=== PATIENT | female | born 1960 | race Caucasian/White ===

== ENCOUNTER → 2016-08-30 | Outpatient (CLI) | payer MEDICARE ==
[~2016-08-30] MED LIST: ASPI81TA45 PO; BACL10TA2 PO; LIPI20TA PO; NEUR100C PO; PAXI30TA11 PO; PLAV1TAB2 PO; TOPA50TA8 PO; TRAZ50TA11 PO
--- NOTE | 2016-08-30 10:59 | REP ---
BILATERAL RIBS, PA CHEST, SEVEN VIEWS: HISTORY: Rib pain. The lungs are clear. The heart is normal in size. The pulmonary vasculature is normal in appearance. The bony structure is intact. IMPRESSION: No acute disease. Signed by Kedar Bridges MD 08/30/2016 11:03 A
== END ==
LOC: M LRY 09:59
PROVIDERS: ATTEND Nurse Practitioner Family
DX: R07.81 Pleurodynia (principal)
CPT/HCPCS: 71111; G0463

== ENCOUNTER → 2016-12-25 | Outpatient (REF) | payer MEDICARE ==
[2016-12-25 17:29] LABS: ALBUMIN 3.5 GM/DL (3.2-5.2); ALKALINE PHOSPHATASE 167 U/L (45-117); ALT/SGPT 27 U/L (12-78); ANION GAP 5 MEQ/L (8-16); AST/SGOT 20 U/L (7-37); BILIRUBIN,TOTAL 0.4 MG/DL (0.2-1.0); BLOOD UREA NITROGEN 8 MG/DL (7-18); CALCIUM LEVEL 9.1 MG/DL (8.5-10.1); CARBON DIOXIDE LEVEL 31 MEQ/L (21-32); CHLORIDE LEVEL 107 MEQ/L (98-107); CHOLESTEROL LEVEL 197 MG/DL (<200); CREATININE FOR GFR 0.83 MG/DL (0.55-1.02); GLOMERULAR FILTRATION RATE > 60.0 (>51); GLUCOSE, FASTING 77 MG/DL (70-105); SODIUM LEVEL 143 MEQ/L (136-145); TOTAL PROTEIN 7.4 GM/DL (6.4-8.2); TRIGLYCERIDES LEVEL 132 MG/DL (<150)
[2016-12-25 17:41] LABS: MEAN CORPUSCULAR HEMOGLOBIN 28.1 pg (27.0-33.0); MEAN CORPUSCULAR HGB CONC 32.2 g/dl (32.0-36.5); MEAN CORPUSCULAR VOLUME 87.3 fl (80.0-96.0); RED CELL DISTRIBUTION WIDTH 17.8 % (11.5-14.5); WHITE BLOOD COUNT 8.4 10^3/uL (4.0-10.0)
[2016-12-25 17:46] LABS: POTASSIUM SERUM 5.2 MEQ/L (3.5-5.1)
[2016-12-25 17:48] LABS: CBCMD ORDERED? YES (YES)
[2016-12-25 21:42] LABS: BASOPHILS 1 % (0-4); EOSINOPHILS 6 % (0-5)
[2016-12-25 21:43] LABS: ANISOCYTOSIS 2+; SCHISTOCYTES 1+
[2016-12-25 21:44] LABS: POIKILOCYTOSIS 1+
== END ==
LOC: M SFHCLERA 12:52
PROVIDERS: ATTEND Family Medicine
DX: I73.9 Peripheral vascular disease, unspecified (principal); Z79.899 Other long term (current) drug therapy
CPT/HCPCS: 80053; 80061; 84443; 85007; 85027; 90471; 90472; 90686; 90732; G0463

== ENCOUNTER → 2017-01-13 | Outpatient (CLI) | payer MEDICARE ==
--- NOTE | 2017-01-15 09:07 | DEXA ---
AP SPINE L1 - L4 0.877 -2.6 -1.5 LT FEMUR TOTAL 0.646 -2.9 -2.1 RT FEMUR TOTAL 0.579 -3.4 -2.6 TOTAL BODY TOTAL OTHER COMMENTS: There is osteoporosis of the spine and hips. The density of the spine has decreased 6.2% since 03/13/2010. The density of the left hip has decreased 4.7% since 03/13/2010. The density of the right hip has decreased 4.3% since 03/13/2010. FOLLOW-UP: Recommendation for the next bone density exam: 2 years. TOSHIA
== END ==
LOC: M WHC 08:58
PROVIDERS: ATTEND Internal Medicine Hematology & Oncology
DX: M81.0 Age-related osteoporosis without current pathological fracture (principal)

== ENCOUNTER → 2017-01-16 | Outpatient (CLI) | payer MEDICARE, MEDICAID ==
[~2017-01-16] MED LIST changes: +ISOVUE-370 76% 100ML VIAL (Q9967) As Ordered ONE
--- NOTE | 2017-01-16 13:43 | REP ---
CT ANGIOGRAPHY OF THE ABDOMEN, PELVIS AND LOWER EXTREMITY RUNOFF ARTERIES WITH IV CONTRAST: HISTORY: Peripheral arterial disease. CT CONTRAST DOSE: 100 mL of intravenous Isovue 370. TECHNIQUE: Helical scanning is acquired and axial 3 mm slices are reformatted. Coronal and sagittal multiplanar re-formation images are generated. 3D work station is deployed to generate thick slab MIP in the coronal plane as well as surface rendered color 3 D imaging and curved array MPR images along the runoff arteries. NONVASCULAR CT FINDINGS: No significant finding on [employer] scout images. There are multiple noncalcified pulmonary nodular opacities in the lung bases bilaterally. These range in size up to 0.7 cm. They are fairly numerous. There are granulomatous calcifications scattered within the spleen. A small accessory splenule is noted. A retroaortic left renal vein is observed. The patient's appendix is in the left side of the abdomen since the cecum and right colon are horizontally oriented. The patient is status post hysterectomy. There are fairly large calcifications in the left groin soft tissues medial to the femoral artery and vein. Presumably these are dystrophic calcifications. VASCULAR FINDINGS: There is diffuse atherosclerotic plaquing in the suprarenal abdominal aorta. No stenosis is seen. The celiac and superior mesenteric artery origins are normal. Singular nonstenotic renal arteries are observed bilaterally. There is a stent graft in place in the infrarenal abdominal aorta. The abdominal aorta is small in caliber but the stent graft and the aorta are patent. The inferior mesenteric artery origin is not seen. The common iliac arteries are small and show atherosclerotic plaquing but no high-grade stenosis. The internal iliac arteries are patent bilaterally. External iliac artery show no high caliber stenosis. Common femoral arteries are patent bilaterally. Profunda and superficial femoral arteries are widely patent. Popliteal arteries are of good caliber bilaterally. No significant plaquing. There is patent three-vessel calf runoff bilaterally to the distal calf. The anterior and posterior tibial arteries cross the ankles bilaterally. Surface rendered and curved axis MPR images show no additional abnormality. IMPRESSION: 1. Multiple noncalcified pulmonary nodules are visible in the lung bases bilaterally. These are nonspecific but contrast enhanced chest CT study should be considered for further evaluation. I cannot exclude metastatic disease. 2. Small caliber distal aorta and common and external iliacs bilaterally. No high-grade stenosis seen. Status post distal aortic stenting. Intact bilateral runoff vessels. Signed by Trung Lovelace MD 01/16/2017 02:46 P
== END ==
LOC: M RAD 12:25
PROVIDERS: ATTEND Family Medicine
DX: I73.9 Peripheral vascular disease, unspecified (principal)
CPT/HCPCS: 75635; Q9967

== ENCOUNTER → 2017-02-05 | Outpatient (CLI) | payer MEDICARE, MEDICAID ==
--- NOTE | 2017-02-05 18:50 | REP ---
CT CHEST WITH IV CONTRAST: TECHNIQUE: Axial contrast enhanced images from the thoracic inlet to the upper abdomen using 100 mL Isovue 370 intravenous contrast material with multiplanar reformations. COMPARISON: CT 01/16/2017 There are multiple nodular opacities bilaterally. Most are semisolid and some are solid in appearance. The largest is somewhat oval in shape with irregular margins having an maximum diameter of 10 mm. Most are less than 10 mm. There is an upper lobe predominance as well as a predominance in the superior aspect of both lower lobes. Interstitial coarsening is seen in both upper lobes. There is no mediastinal, hilar or chest wall lymphadenopathy with normal sized mediastinal and hilar lymph nodes present. There is mild atherosclerotic calcification of the thoracic aorta without aneurysm or dissection. The heart is normal in size. There is no pleural or pericardial effusion. There is a stable mild compression deformity of a midthoracic vertebral body compared to prior CT of 08/27/2014. The visualized upper abdominal structures are unremarkable except for a tiny calcified granulomas in the spleen. IMPRESSION: Multiple ill-defined nodular opacities diffusely bilaterally with an upper lobe predominance. Most of the nodules are semisolid, with some having a solid appearance. These measure up to 10 mm in maximum diameter, but most are subcentimeter in size. Differential diagnosis is vast and includes inflammatory, infectious and neoplastic etiologies. Recommend followup CT in 3 months. Signed by Pedro Levine MD 02/05/2017 08:45 P
== END ==
LOC: M RAD 17:08
PROVIDERS: ATTEND Family Medicine
DX: R91.8 Other nonspecific abnormal finding of lung field (principal)
CPT/HCPCS: 71260; Q9967

== ENCOUNTER → 2017-02-20 | Outpatient (CLI) | payer MEDICARE, MEDICAID | LOC: M PAIN 09:30 | DX: M54.5 Low back pain (principal); G89.29 Other chronic pain; M46.1 Sacroiliitis, not elsewhere classified; E78.5 Hyperlipidemia, unspecified; I25.2 Old myocardial infarction; F17.210 Nicotine dependence, cigarettes, uncomplicated; Z79.899 Other long term (current) drug therapy; Z79.82 Long term (current) use of aspirin; Z88.8 Allergy status to other drugs, medicaments and biological substances; Z86.73 Personal history of transient ischemic attack (TIA), and cerebral infarction without residual deficits; M81.0 Age-related osteoporosis without current pathological fracture | CPT/HCPCS: 82306; G0463 ==

== ENCOUNTER → 2017-02-20 | Outpatient (CLI) | payer MEDICARE, MEDICAID ==
[2017-02-20 12:21] LABS: ANION GAP 3 MEQ/L (8-16); BLOOD UREA NITROGEN 14 MG/DL (7-18); CALCIUM LEVEL 8.3 MG/DL (8.5-10.1); CARBON DIOXIDE LEVEL 28 MEQ/L (21-32); CHLORIDE LEVEL 109 MEQ/L (98-107); CREATININE FOR GFR 0.87 MG/DL (0.55-1.02); GLOMERULAR FILTRATION RATE > 60.0 (>51); GLUCOSE, FASTING 78 MG/DL (70-105); POTASSIUM SERUM 4.4 MEQ/L (3.5-5.1); SODIUM LEVEL 140 MEQ/L (136-145)
== END ==
LOC: M LAB 11:13
DX: M81.0 Age-related osteoporosis without current pathological fracture (principal)
CPT/HCPCS: 82306

== ENCOUNTER → 2017-03-03 | Outpatient (REF) | payer MEDICARE, MEDICAID ==
[2017-03-03 14:28] LABS: FERRITIN 469 NG/ML (8-252); TOTAL PROTEIN 7.2 GM/DL (6.4-8.2)
[2017-03-03 14:36] LABS: ERYTHROCYTE SEDIMENTATION RATE 60 mm/hr (0-30)
[2017-03-05 00:06] LABS: FREE KAPPA LIGHT CHAINS SERUM 75.9 mg/L (3.3-19.4); FREE LAMBDA LIGHT CHAINS SERUM 32.4 mg/L (5.7-26.3); KAPPA/LAMBDA RATIO SERUM 2.34 (0.26-1.65)
[2017-03-06 11:07] LABS: ALBUMIN 3.23 GM/DL (3.29-5.55); ALBUMIN % 44.8 % (55.8-66.1); ALPHA-1-GLOBULIN % 5.9 % (2.9-4.9); ALPHA-1-GLOBULINS 0.42 GM/DL (0.17-0.41); ALPHA-2-GLOBULINS 0.86 GM/DL (0.42-0.99); ALPHA-2-GLOBULINS % 11.9 % (7.1-11.8); BETA-1-GLOBULINS 0.36 GM/DL (0.28-0.60); BETA-2-GLOBULINS 0.45 GM/DL (0.19-0.55); BETA-2-GLOBULINS % 6.2 % (3.2-6.5); GAMMA GLOBULIN % 26.2 % (11.1-18.8); GAMMA GLOBULINS 1.89 GM/DL (0.65-1.58)
== END ==
LOC: M LAB REF 13:33
DX: D74.8 Other methemoglobinemias (principal); M84.40XA Pathological fracture, unspecified site, initial encounter for fracture
CPT/HCPCS: 84165

== ENCOUNTER → 2017-03-09 | Outpatient (CLI) | payer MEDICARE, MEDICAID | LOC: M PAIN 14:15 | DX: M54.5 Low back pain (principal); G89.29 Other chronic pain; M46.1 Sacroiliitis, not elsewhere classified; F17.210 Nicotine dependence, cigarettes, uncomplicated; I25.2 Old myocardial infarction; Z79.82 Long term (current) use of aspirin; Z79.01 Long term (current) use of anticoagulants; Z79.899 Other long term (current) drug therapy; Z88.8 Allergy status to other drugs, medicaments and biological substances | CPT/HCPCS: G0463 ==

== ENCOUNTER → 2017-03-10 | Outpatient (CLI) | payer MEDICARE, MEDICAID | LOC: M PLARAD 11:19 | DX: C96.6 Unifocal Langerhans-cell histiocytosis (principal); C96.20 Malignant mast cell neoplasm, unspecified | CPT/HCPCS: 78815 ==

== ENCOUNTER → 2017-03-18 | Outpatient (CLI) | payer MEDICARE, MEDICAID | LOC: M RAD 14:41 | DX: M54.5 Low back pain (principal) | CPT/HCPCS: 72148 ==

== ENCOUNTER → 2017-03-24 | Outpatient (CLI) | payer MEDICARE, MEDICAID ==
[~2017-03-24] MED LIST changes: -ASPI81TA45 PO; -BACL10TA2 PO; +HEPARIN 1,000 UNITS/ML 10ML VIAL (FOR RADIOLOGY& DIALYSIS ONLY) As Ordered; +ISOVUE-300 61% 50ML VIAL (Q9967) As Ordered; -ISOVUE-370 76% 100ML VIAL (Q9967) As Ordered ONE; -LIPI20TA PO; +MIDAZOLAM INJ 2 MG/2 ML VIAL (J2250) As Ordered; -NEUR100C PO; -PAXI30TA11 PO; -PLAV1TAB2 PO; +PROTAMINE SULF INJ 50 MG/5 ML VIAL (J2720) As Ordered; -TOPA50TA8 PO; -TRAZ50TA11 PO; +fentaNYL 100 MCG/2 ML INJECTION (J3010) As Ordered
== END | disposition home or self-care (01) ==
LOC: M IRPRO 06:58
DX: I70.211 Atherosclerosis of native arteries of extremities with intermittent claudication, right leg (principal); Z86.73 Personal history of transient ischemic attack (TIA), and cerebral infarction without residual deficits; I25.2 Old myocardial infarction; J44.9 Chronic obstructive pulmonary disease, unspecified; Z72.0 Tobacco use
CPT/HCPCS: G0269

== ENCOUNTER → 2017-03-26 | Outpatient (REF) | payer MEDICARE, MEDICAID ==
[2017-03-26 13:29] LABS: INFLUENZA A AMPLIFICATION NEGATIVE (NEGATIVE); INFLUENZA B AMPLIFICATION NEGATIVE (NEGATIVE)
== END ==
LOC: M SFHCLERA 09:52
DX: R68.89 Other general symptoms and signs (principal); Z11.59 Encounter for screening for other viral diseases
CPT/HCPCS: 87502

== ENCOUNTER → 2017-05-28 | Outpatient (CLI) | payer MEDICARE, MEDICAID | LOC: M LRY 10:33 | DX: J44.1 Chronic obstructive pulmonary disease with (acute) exacerbation (principal) | CPT/HCPCS: G0463 ==

== ENCOUNTER → 2017-06-08 | Outpatient (CLI) | payer MEDICARE, MEDICAID ==
[~2017-06-08] MED LIST changes: +BUPIVACAINE HCL 0.25% 10 ML VIAL As Ordered; +BUPIVACAINE HCL 0.25% 30 ML VIAL As Ordered; -HEPARIN 1,000 UNITS/ML 10ML VIAL (FOR RADIOLOGY& DIALYSIS ONLY) As Ordered; -ISOVUE-300 61% 50ML VIAL (Q9967) As Ordered; -MIDAZOLAM INJ 2 MG/2 ML VIAL (J2250) As Ordered; -PROTAMINE SULF INJ 50 MG/5 ML VIAL (J2720) As Ordered; +TRIAMCINOLONE ACETONIDE SUSP 40 MG/ML VIAL (J3301) As Ordered; +diazePAM 5 MG TAB As Ordered; -fentaNYL 100 MCG/2 ML INJECTION (J3010) As Ordered; +oxyCODONE 5MG TAB As Ordered
== END ==
LOC: M PAIN 14:45
DX: G89.29 Other chronic pain (principal); M79.1 Myalgia; G40.909 Epilepsy, unspecified, not intractable, without status epilepticus; I73.9 Peripheral vascular disease, unspecified; G62.9 Polyneuropathy, unspecified; M51.36 Other intervertebral disc degeneration, lumbar region; E78.5 Hyperlipidemia, unspecified; J44.9 Chronic obstructive pulmonary disease, unspecified; M81.0 Age-related osteoporosis without current pathological fracture; Z86.73 Personal history of transient ischemic attack (TIA), and cerebral infarction without residual deficits; F17.210 Nicotine dependence, cigarettes, uncomplicated; Z79.02 Long term (current) use of antithrombotics/antiplatelets; Z79.82 Long term (current) use of aspirin; Z79.899 Other long term (current) drug therapy; Z88.8 Allergy status to other drugs, medicaments and biological substances
CPT/HCPCS: J3301

== ENCOUNTER → 2017-06-17 | Outpatient (CLI) | payer MEDICAID, MEDICARE ==
[2017-06-17 15:38] LABS: ANION GAP 5 MEQ/L (8-16); BLOOD UREA NITROGEN 19 MG/DL (7-18); CALCIUM LEVEL 8.3 MG/DL (8.5-10.1); CARBON DIOXIDE LEVEL 28 MEQ/L (21-32); CHLORIDE LEVEL 112 MEQ/L (98-107); CREATININE FOR GFR 1.14 MG/DL (0.55-1.30); GLOMERULAR FILTRATION RATE 52.1 (>51); GLUCOSE, FASTING 85 MG/DL (70-100); POTASSIUM SERUM 3.8 MEQ/L (3.5-5.1); SODIUM LEVEL 145 MEQ/L (136-145)
[2017-06-17 15:54] LABS: TOTAL 25(OH) VITAMIN D 57.6 NG/ML (30.0-100.0)
== END ==
LOC: M LAB 14:19
DX: M81.0 Age-related osteoporosis without current pathological fracture (principal)
CPT/HCPCS: 82306

== ENCOUNTER → 2017-06-22 | Outpatient (CLI) | payer MEDICARE, MEDICAID | LOC: M PAIN 13:15 | DX: M54.5 Low back pain (principal); M46.92 Unspecified inflammatory spondylopathy, cervical region; R56.9 Unspecified convulsions; I73.9 Peripheral vascular disease, unspecified; I25.2 Old myocardial infarction; G62.9 Polyneuropathy, unspecified; M19.90 Unspecified osteoarthritis, unspecified site; E78.5 Hyperlipidemia, unspecified; J44.9 Chronic obstructive pulmonary disease, unspecified; M85.9 Disorder of bone density and structure, unspecified; F17.210 Nicotine dependence, cigarettes, uncomplicated; Z79.01 Long term (current) use of anticoagulants; Z79.82 Long term (current) use of aspirin; Z79.51 Long term (current) use of inhaled steroids; Z79.899 Other long term (current) drug therapy; Z88.8 Allergy status to other drugs, medicaments and biological substances; Z86.73 Personal history of transient ischemic attack (TIA), and cerebral infarction without residual deficits; Z95.5 Presence of coronary angioplasty implant and graft | CPT/HCPCS: G0463 ==

== ENCOUNTER → 2017-06-25 | Outpatient (CLI) | payer MEDICARE, MEDICAID ==
[2017-06-25 17:49] LABS: ANION GAP 4 MEQ/L (8-16); BLOOD UREA NITROGEN 16 MG/DL (7-18); CARBON DIOXIDE LEVEL 29 MEQ/L (21-32); CHLORIDE LEVEL 112 MEQ/L (98-107); CREATININE FOR GFR 1.33 MG/DL (0.55-1.30); GLOMERULAR FILTRATION RATE 43.6 (>51); GLUCOSE, FASTING 85 MG/DL (70-100); POTASSIUM SERUM 4.5 MEQ/L (3.5-5.1); SODIUM LEVEL 145 MEQ/L (136-145)
== END ==
LOC: M LRY 10:10
DX: E55.9 Vitamin D deficiency, unspecified (principal); M81.0 Age-related osteoporosis without current pathological fracture
CPT/HCPCS: 80048

== ENCOUNTER 2017-06-30 13:33 | Outpatient (CLI) | payer MEDICARE, MEDICAID ==
[2017-06-30] MEDS: ZOLEDRONIC ACID 5 MG in APPROPRIATE DILUENT 1 EA IV (14:04)
== END 2017-06-30 14:45 | disposition home or self-care (01) ==
LOC: M INFU 13:33
DX: M81.0 Age-related osteoporosis without current pathological fracture (principal); E55.9 Vitamin D deficiency, unspecified; G43.909 Migraine, unspecified, not intractable, without status migrainosus; F32.9 Major depressive disorder, single episode, unspecified; E78.00 Pure hypercholesterolemia, unspecified; I51.9 Heart disease, unspecified; Z79.82 Long term (current) use of aspirin; Z79.899 Other long term (current) drug therapy; Z88.8 Allergy status to other drugs, medicaments and biological substances; Z90.710 Acquired absence of both cervix and uterus; Z86.73 Personal history of transient ischemic attack (TIA), and cerebral infarction without residual deficits
CPT/HCPCS: J3489

== ENCOUNTER → 2017-07-31 | Outpatient (REF) | payer MEDICARE, MEDICAID ==
[2017-07-31 15:10] LABS: CHLAMYDIA DNA AMPLIFICATION NEGATIVE (NEGATIVE); GC DNA AMPLIFICATION NEGATIVE (NEGATIVE)
== END ==
LOC: M LAB REF 12:56
DX: Z11.3 Encounter for screening for infections with a predominantly sexual mode of transmission (principal); R30.0 Dysuria; Z72.89 Other problems related to lifestyle
CPT/HCPCS: 87186

== ENCOUNTER → 2017-08-03 | Outpatient (CLI) | payer MEDICARE, MEDICAID ==
[2017-08-03 11:27] LABS: ANION GAP 5 MEQ/L (8-16); BLOOD UREA NITROGEN 21 MG/DL (7-18); CALCIUM LEVEL 8.5 MG/DL (8.5-10.1); CARBON DIOXIDE LEVEL 26 MEQ/L (21-32); CHLORIDE LEVEL 111 MEQ/L (98-107); CREATININE FOR GFR 0.99 MG/DL (0.55-1.30); GLOMERULAR FILTRATION RATE > 60.0 (>51); GLUCOSE, FASTING 86 MG/DL (70-100); POTASSIUM SERUM 4.2 MEQ/L (3.5-5.1); SODIUM LEVEL 142 MEQ/L (136-145)
[2017-08-03 11:35] LABS: TOTAL 25(OH) VITAMIN D 51.3 NG/ML (30.0-100.0)
== END ==
LOC: M LAB 10:42
DX: M81.0 Age-related osteoporosis without current pathological fracture (principal)
CPT/HCPCS: 82306

== ENCOUNTER → 2017-08-03 | Outpatient (CLI) | payer MEDICARE, MEDICAID | LOC: M PAIN 09:30 | DX: M54.5 Low back pain (principal); M46.92 Unspecified inflammatory spondylopathy, cervical region; M79.1 Myalgia; G89.29 Other chronic pain; I25.2 Old myocardial infarction; R56.9 Unspecified convulsions; G90.09 Other idiopathic peripheral autonomic neuropathy; M19.90 Unspecified osteoarthritis, unspecified site; J44.9 Chronic obstructive pulmonary disease, unspecified; Z79.82 Long term (current) use of aspirin; Z79.01 Long term (current) use of anticoagulants; Z79.51 Long term (current) use of inhaled steroids; Z79.899 Other long term (current) drug therapy; Z88.8 Allergy status to other drugs, medicaments and biological substances; M85.80 Other specified disorders of bone density and structure, unspecified site; F17.210 Nicotine dependence, cigarettes, uncomplicated; Z87.74 Personal history of (corrected) congenital malformations of heart and circulatory system; Z86.73 Personal history of transient ischemic attack (TIA), and cerebral infarction without residual deficits | CPT/HCPCS: 82306; G0463 ==

== ENCOUNTER → 2017-08-04 | Outpatient (CLI) | payer MEDICARE, MEDICAID ==
[~2017-08-04] MED LIST changes: +diphenhydrAMINE 25 MG CAP As Ordered
== END ==
LOC: M PAIN 14:00
DX: G89.29 Other chronic pain (principal); M79.1 Myalgia; M54.5 Low back pain; R56.9 Unspecified convulsions; I25.2 Old myocardial infarction; E78.5 Hyperlipidemia, unspecified; J44.9 Chronic obstructive pulmonary disease, unspecified; M85.80 Other specified disorders of bone density and structure, unspecified site; F17.210 Nicotine dependence, cigarettes, uncomplicated; M19.90 Unspecified osteoarthritis, unspecified site; Z79.82 Long term (current) use of aspirin; Z79.51 Long term (current) use of inhaled steroids; Z79.899 Other long term (current) drug therapy; Z88.8 Allergy status to other drugs, medicaments and biological substances; Z86.73 Personal history of transient ischemic attack (TIA), and cerebral infarction without residual deficits; Z86.79 Personal history of other diseases of the circulatory system
CPT/HCPCS: J3301

== ENCOUNTER → 2017-08-06 | Outpatient (REF) | payer MEDICARE ==
[2017-08-06 13:42] LABS: APPEARANCE, URINE HAZY (CLEAR); BACTERIA, URINE AUTO NEGATIVE (NEGATIVE); BILIRUBIN, URINE AUTO NEGATIVE (NEGATIVE); BLOOD, URINE BLOOD NEGATIVE (NEGATIVE); CALCIUM OXALATE CRYSTALS LARGE; COLOR, URINE YELLOW (YELLOW); GLUCOSE, URINE (UA) AUTO NEGATIVE (NEGATIVE); KETONE, URINE AUTO NEGATIVE (NEGATIVE); LEUKOCYTE ESTERASE, URINE AUTO 1+ (NEGATIVE); MUCUS, URINE SMALL (NEGATIVE); NITRITE, URINE AUTO NEGATIVE (NEGATIVE); PROTEIN, URINE AUTO NEGATIVE (NEGATIVE); RBC, URINE AUTO 1 /HPF (0-3); SPECIFIC GRAVITY URINE AUTO 1.015 (1.002-1.035); SQUAMOUS EPITHELIAL CELL UR AU 0 /HPF (0-6); WBC, URINE AUTO 3 /HPF (0-3)
== END ==
LOC: M SMT 13:00
DX: R39.15 Urgency of urination (principal)
CPT/HCPCS: 81001

== ENCOUNTER → 2017-08-06 | Outpatient (CLI) | payer MEDICARE, MEDICAID | LOC: M RAD 07:15 | DX: M48.061 Spinal stenosis, lumbar region without neurogenic claudication (principal); R39.15 Urgency of urination | CPT/HCPCS: 72148 ==

== ENCOUNTER → 2017-08-17 | Outpatient (CLI) | payer MEDICARE, MEDICAID | LOC: M PAIN 10:30 | DX: M54.5 Low back pain (principal); M46.92 Unspecified inflammatory spondylopathy, cervical region; G89.29 Other chronic pain; M79.1 Myalgia; I25.2 Old myocardial infarction; R56.9 Unspecified convulsions; I73.9 Peripheral vascular disease, unspecified; G90.09 Other idiopathic peripheral autonomic neuropathy; M19.90 Unspecified osteoarthritis, unspecified site; E78.5 Hyperlipidemia, unspecified; J44.9 Chronic obstructive pulmonary disease, unspecified; M85.80 Other specified disorders of bone density and structure, unspecified site; F17.210 Nicotine dependence, cigarettes, uncomplicated; Z79.01 Long term (current) use of anticoagulants; Z79.82 Long term (current) use of aspirin; Z79.51 Long term (current) use of inhaled steroids; Z79.899 Other long term (current) drug therapy; Z88.8 Allergy status to other drugs, medicaments and biological substances; Z86.73 Personal history of transient ischemic attack (TIA), and cerebral infarction without residual deficits | CPT/HCPCS: G0463 ==

== ENCOUNTER 2017-10-24 19:13 | Emergency (ER) | payer MEDICARE, MEDICAID ==
[2017-10-24] MEDS: ALBUTEROL SULFATE 2.5 MG/0.5 ML INH NEB SOLN NEB ×2 (20:07→20:26)
[2017-10-24 20:15] LABS: ABG BASE EXCESS -0.7 (-2.0-2.0); ABG HCO3 23.1 MEQ/L (22.0-26.0); ABG O2 SATURATION 96.2 % (95.0-99.0); ABG PARTIAL PRESSURE CO2 35.1 mmHg (35.0-45.0); ABG PARTIAL PRESSURE O2 80.1 mmHg (75.0-100.0); ABG STANDARD HCO3 23.9 MEQ/L (22.0-26.0); ABG TOTAL CO2 24.2 MEQ/L (22.0-29.0); ABG pH (ARTERIAL) 7.436 UNITS (7.350-7.450)
[2017-10-24 20:42] LABS: BASO % 0.4 % (0.0-1.0); EOS # 0.1 10^3/uL (0.0-0.50); EOS % 1.9 % (0.0-3.0); HEMATOCRIT 40.6 % (36.0-47.0); HEMOGLOBIN 13.2 g/dl (12.0-15.5); IMMATURE GRANULOCYTE % 0.2 % (0-3.0); LYMPH # 1.8 10^3/uL (1.5-4.5); LYMPH % 37.8 % (24.0-44.0); MEAN CORPUSCULAR HEMOGLOBIN 28.1 pg (27.0-33.0); MEAN CORPUSCULAR HGB CONC 32.5 g/dl (32.0-36.5); MEAN CORPUSCULAR VOLUME 86.6 fl (80.0-96.0); MONO # 0.3 10^3/uL (0.0-0.8); MONO % 6.9 % (0.0-5.0); NEUTROPHILS # 2.5 10^3/uL (1.8-7.7); NEUTROPHILS % 52.8 % (36.0-66.0); PLATELET COUNT, AUTOMATED 250 10^3/uL (150-450); RED BLOOD COUNT 4.69 10^6/uL (4.00-5.40); RED CELL DISTRIBUTION WIDTH 18.8 % (11.5-14.5); WHITE BLOOD COUNT 4.8 10^3/uL (4.0-10.0)
[2017-10-24] MEDS: methylPREDNISolone INJ 125 MG/2 ML VIAL (J2930) IV (20:46)
[2017-10-24] MEDS: NICOTINE 21MG/24HR 1 EA TRANSDERMAL TD (20:46)
[2017-10-24 21:11] LABS: ALBUMIN/GLOBULIN RATIO 0.83 (1.00-1.93); ALKALINE PHOSPHATASE 101 U/L (45-117); ALT/SGPT 26 U/L (12-78); ANION GAP 6 MEQ/L (8-16); AST/SGOT 27 U/L (7-37); BILIRUBIN,DIRECT < 0.1 MG/DL (0.0-0.2); BILIRUBIN,TOTAL 0.2 MG/DL (0.2-1.0); BLOOD UREA NITROGEN 9 MG/DL (7-18); CARBON DIOXIDE LEVEL 28 MEQ/L (21-32); CHLORIDE LEVEL 108 MEQ/L (98-107); CPK CREATINE PHOSPHOKINASE 90 U/L (26-192); CREATININE FOR GFR 0.96 MG/DL (0.55-1.30); GLOMERULAR FILTRATION RATE > 60.0 (>51); GLUCOSE, FASTING 84 MG/DL (70-100); POTASSIUM SERUM 3.8 MEQ/L (3.5-5.1); SODIUM LEVEL 142 MEQ/L (136-145); TOTAL PROTEIN 6.6 GM/DL (6.4-8.2); TROPONIN I < 0.02 NG/ML (< 0.10)
[2017-10-24 21:16] LABS: CK-MB VALUE MASS 1.1 NG/ML (<3.6); MB/CK RELATIVE INDEX 1.22 (< OR =4)
[2017-10-24] MEDS: MORPHINE 2 MG/ML 1ML SYRINGE (J2270) IV (22:23)
== END 2017-10-24 22:40 | disposition left against medical advice (07) ==
LOC: M ED 19:13
DX: J44.1 Chronic obstructive pulmonary disease with (acute) exacerbation (principal); I25.10 Atherosclerotic heart disease of native coronary artery without angina pectoris; I25.2 Old myocardial infarction; E78.5 Hyperlipidemia, unspecified; G62.9 Polyneuropathy, unspecified; M19.90 Unspecified osteoarthritis, unspecified site; M81.0 Age-related osteoporosis without current pathological fracture; Z86.73 Personal history of transient ischemic attack (TIA), and cerebral infarction without residual deficits; Z88.8 Allergy status to other drugs, medicaments and biological substances; F17.210 Nicotine dependence, cigarettes, uncomplicated
CPT/HCPCS: J2930

== ENCOUNTER 2018-02-05 13:40 | Emergency (ER) | payer MEDICARE, MEDICAID ==
[2018-02-05] MEDS: NS 1,000 ML IV ×2 (14:00→16:12)
[2018-02-05 14:21] LABS: BASO % 0.2 % (0.0-1.0); HEMATOCRIT 42.9 % (36.0-47.0); HEMOGLOBIN 14.6 g/dl (12.0-15.5); IMMATURE GRANULOCYTE % 0.4 % (0-3.0); LYMPH # 1.4 10^3/uL (1.5-4.5); LYMPH % 26.1 % (24.0-44.0); MEAN CORPUSCULAR HEMOGLOBIN 28.7 pg (27.0-33.0); MEAN CORPUSCULAR VOLUME 84.3 fl (80.0-96.0); MONO # 0.3 10^3/uL (0.0-0.8); MONO % 5.4 % (0.0-5.0); NEUTROPHILS # 3.6 10^3/uL (1.8-7.7); NEUTROPHILS % 67.9 % (36.0-66.0); PLATELET COUNT, AUTOMATED 116 10^3/uL (150-450); RED BLOOD COUNT 5.09 10^6/uL (4.00-5.40); RED CELL DISTRIBUTION WIDTH 18.1 % (11.5-14.5); WHITE BLOOD COUNT 5.3 10^3/uL (4.0-10.0)
[2018-02-05 14:48] LABS: ALBUMIN 3.1 GM/DL (3.2-5.2); ALBUMIN/GLOBULIN RATIO 0.94 (1.00-1.93); ALKALINE PHOSPHATASE 84 U/L (45-117); ALT/SGPT 61 U/L (12-78); ANION GAP 10 MEQ/L (8-16); AST/SGOT 51 U/L (7-37); BILIRUBIN,DIRECT 0.1 MG/DL (0.0-0.2); BILIRUBIN,TOTAL 0.4 MG/DL (0.2-1.0); BLOOD UREA NITROGEN 20 MG/DL (7-18); CALCIUM LEVEL 7.8 MG/DL (8.5-10.1); CARBON DIOXIDE LEVEL 24 MEQ/L (21-32); CHLORIDE LEVEL 105 MEQ/L (98-107); CREATININE FOR GFR 0.84 MG/DL (0.55-1.30); GLOMERULAR FILTRATION RATE > 60.0 (>51); GLUCOSE, FASTING 114 MG/DL (70-100); LIPASE 187 U/L (73-393); POTASSIUM SERUM 3.1 MEQ/L (3.5-5.1); SODIUM LEVEL 139 MEQ/L (136-145); TOTAL PROTEIN 6.4 GM/DL (6.4-8.2)
[2018-02-05] MEDS: MORPHINE 4 MG/ML 1ML VIAL/SYRINGE (J2270) IV (15:23)
[2018-02-05] MEDS: ONDANSETRON 4MG/2ML VIAL (J2405) IV (15:23)
[2018-02-05 16:16] LABS: INFLUENZA A AMPLIFICATION NEGATIVE (NEGATIVE); INFLUENZA B AMPLIFICATION NEGATIVE (NEGATIVE)
[2018-02-05] MEDS: POTASSIUM CHLORIDE 10 MEQ SR TABLET PO ×2 (16:53→17:54)
== END 2018-02-05 17:56 | disposition home or self-care (01) ==
LOC: M ED 13:40
DX: R11.10 Vomiting, unspecified (principal); R19.7 Diarrhea, unspecified; G89.29 Other chronic pain; M54.9 Dorsalgia, unspecified; Z72.0 Tobacco use; Z79.82 Long term (current) use of aspirin; Z79.899 Other long term (current) drug therapy
CPT/HCPCS: J2270

== ENCOUNTER 2018-02-07 19:05 | Emergency (ER) | payer MEDICAID, MEDICARE ==
[~2018-02-07] VITALS: Ht 165.1 cm; Wt 59.1 kg
[~2018-02-07 19:05] MED LIST changes: +ASPI81TA45 PO; +ATOR80TA59 PO; +AZIT500T2 PO; +BACL10TA2 PO; -BUPIVACAINE HCL 0.25% 10 ML VIAL As Ordered; -BUPIVACAINE HCL 0.25% 30 ML VIAL As Ordered; +GABA-1171 PO; +IPRA2IN INH; +LIPI20TA PO; +NEUR100C PO; +NORT25CA2 PO; +PAXI30TA11 PO; +PLAV1TAB2 PO; +PRED20TA PO; +TOPA100T12 PO; +TOPA50TA8 PO; +TRAZ-160 PO; -TRIAMCINOLONE ACETONIDE SUSP 40 MG/ML VIAL (J3301) As Ordered; -diazePAM 5 MG TAB As Ordered; -diphenhydrAMINE 25 MG CAP As Ordered; -oxyCODONE 5MG TAB As Ordered
[2018-02-07] MEDS ORDERED: PROAAER10 INH (19:19)
[2018-02-07 19:59] LABS: EOS % 0.2 % (0.0-3.0); HEMATOCRIT 37.9 % (36.0-47.0); HEMOGLOBIN 12.5 g/dl (12.0-15.5); LYMPH # 1.2 10^3/uL (1.5-4.5); LYMPH % 20.9 % (24.0-44.0); MEAN CORPUSCULAR HEMOGLOBIN 28.3 pg (27.0-33.0); MEAN CORPUSCULAR VOLUME 85.7 fl (80.0-96.0); MONO # 0.5 10^3/uL (0.0-0.8); MONO % 8.3 % (0.0-5.0); NEUTROPHILS # 3.9 10^3/uL (1.8-7.7); NEUTROPHILS % 70.2 % (36.0-66.0); PLATELET COUNT, AUTOMATED 206 10^3/uL (150-450); RED BLOOD COUNT 4.42 10^6/uL (4.00-5.40); WHITE BLOOD COUNT 5.5 10^3/uL (4.0-10.0)
[2018-02-07] MEDS ORDERED: IPRATROPIUM 0.5MG/ALBUTEROL 2.5MG INH SOL UD 3ML (DUONEB)(J7620) NEB ONE (20:15)
[2018-02-07] MEDS ORDERED: ONDANSETRON 4MG/2ML VIAL (J2405) IV ONE (20:15)
[2018-02-07 20:28] LABS: INFLUENZA A AMPLIFICATION NEGATIVE (NEGATIVE); INFLUENZA B AMPLIFICATION NEGATIVE (NEGATIVE)
[2018-02-07 20:30] LABS: ALBUMIN 2.8 GM/DL (3.2-5.2); ALT/SGPT 34 U/L (12-78); BILIRUBIN,DIRECT 0.2 MG/DL (0.0-0.2); BILIRUBIN,TOTAL 0.5 MG/DL (0.2-1.0); BLOOD UREA NITROGEN 9 MG/DL (7-18); CALCIUM LEVEL 7.6 MG/DL (8.5-10.1); CARBON DIOXIDE LEVEL 22 MEQ/L (21-32); CHLORIDE LEVEL 109 MEQ/L (98-107); GLOMERULAR FILTRATION RATE > 60.0 (>51); GLUCOSE, FASTING 75 MG/DL (70-100); POTASSIUM SERUM 3.5 MEQ/L (3.5-5.1); SODIUM LEVEL 141 MEQ/L (136-145); THYROID STIMULATING HORMONE 0.565 uIU/ML (0.358-3.740); THYROXINE (T4) 13.9 UG/DL (4.5-12.0); TOTAL PROTEIN 6.2 GM/DL (6.4-8.2)
[2018-02-07] MEDS ORDERED: ISOVUE-370 76% 100ML VIAL (Q9967) As Ordered ONE (20:34)
[2018-02-07] MEDS ORDERED: MORPHINE 2 MG/ML 1ML SYRINGE (J2270) IV ONE (21:00)
--- NOTE | 2018-02-07 21:01 | REP ---
Clinical: Generalized abdominal pain. Technique: Axial contrast enhanced images from the lung bases to the pubic symphysis using 100 ml Isovue 370 intravenous contrast material with coronal and sagittal re-formations. Comparison: 08/08/2014. Findings: Lung bases demonstrate a fine reticulonodular interstitial pattern with subtle bronchiectasis and "tree in bud" type changes which suggest a mild/early bronchitis. Liver, spleen, pancreas, gallbladder, bilateral adrenal glands and kidneys are normal. 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 A few scattered colonic diverticula noted. There is no evidence for bowel obstruction or acute inflammatory process. Pelvis demonstrates normal bladder and evidence of prior hysterectomy. No pelvic fluid or ascites. No intraperitoneal or retroperitoneal adenopathy. No free air. Atherosclerotic changes to the aorta and vasculature without aneurysm or dissection. Chronic calcified lymph nodes in the left groin remain unchanged. Surrounding musculoskeletal structures demonstrate age-related changes without focal osseous abnormality. Impression: 1. Subtle changes to the bilateral lung bases may represent a mild bronchitis and early pneumonia. Correlation is recommended. 2. 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 3. Few scattered colonic diverticula without acute diverticulitis. 4. No further acute abdominopelvic pathology appreciated. Specifically, no ascites, focal inflammatory stranding, or adenopathy. Electronically Signed by Elfego Villegas MD 02/07/2018 08:52 P
--- NOTE | 2018-02-07 21:07 | REP ---
Clinical: Cough and dyspnea . Comparison: 05/28/2017 . Technique: PA and lateral. Findings: The mediastinum and cardiac silhouette are normal. The lung garvey demonstrate chronic interstitial changes without acute consolidation, effusion, or pneumothorax. The skeletal structures are intact and normal. Impression: Diffuse chronic interstitial changes. If the patient remains symptomatic consider chest CT for further investigation. Electronically Signed by Elfego Villegas MD 02/07/2018 08:58 P
[2018-02-07] MEDS ORDERED: TESS100C PO (21:22)
[2018-02-07] MEDS ORDERED: OXYC1TAB23 PO (21:22)
[2018-02-07] MEDS ORDERED: PRED20TA PO (21:22)
[2018-02-07] MEDS ORDERED: dexameTHASONE 20 MG/5 ML VIAL (J1100) IV ONE (21:30)
[2018-02-07] MEDS ORDERED: OXYCODONE/APAP 5MG/325MG(BULK FOR ED) 1 TABLET PO ONE (21:30)
[2018-02-07 21:39] VITALS: BP 131/65
== END 2018-02-07 21:41 | disposition home or self-care (01) ==
LOC: M ED 19:05
DX: J44.1 Chronic obstructive pulmonary disease with (acute) exacerbation (principal); S39.011A Strain of muscle, fascia and tendon of abdomen, initial encounter; X50.9XXA Other and unspecified overexertion or strenuous movements or postures, initial encounter; Y92.89 Other specified places as the place of occurrence of the external cause; R19.7 Diarrhea, unspecified; E78.5 Hyperlipidemia, unspecified; G40.909 Epilepsy, unspecified, not intractable, without status epilepticus; I77.9 Disorder of arteries and arterioles, unspecified; M81.0 Age-related osteoporosis without current pathological fracture; Z79.899 Other long term (current) drug therapy; Z79.82 Long term (current) use of aspirin; Z79.02 Long term (current) use of antithrombotics/antiplatelets; F17.210 Nicotine dependence, cigarettes, uncomplicated
CPT/HCPCS: 71046; 74177; 80048; 80076; 83605; 84436; 84443; 85025; 87040; 87502; 94640; 94760; 96374; 96375; 99284; J1100; J2270; J2405; Q9967

== ENCOUNTER 2018-02-11 06:55 | Emergency (ER) | payer MEDICARE ==
[~2018-02-11] VITALS: Ht 165.1 cm; Wt 59.1 kg
[~2018-02-11 06:55] MED LIST changes: +OXYC1TAB23 PO; +PROAAER10 INH; +TESS100C PO
[2018-02-11] MEDS ORDERED: MORPHINE 4 MG/ML 1ML VIAL/SYRINGE (J2270) IV PRN (07:15)
[2018-02-11] MEDS ORDERED: ONDANSETRON 4MG/2ML VIAL (J2405) IV ONE (07:15)
[2018-02-11 07:21] LABS: BASO % 0.2 % (0.0-1.0); HEMATOCRIT 42.8 % (36.0-47.0); HEMOGLOBIN 14.1 g/dl (12.0-15.5); LYMPH % 16.9 % (24.0-44.0); MEAN CORPUSCULAR HEMOGLOBIN 28.3 pg (27.0-33.0); MEAN CORPUSCULAR HGB CONC 32.9 g/dl (32.0-36.5); MEAN CORPUSCULAR VOLUME 85.8 fl (80.0-96.0); MONO # 0.9 10^3/uL (0.0-0.8); MONO % 7.5 % (0.0-5.0); NEUTROPHILS # 8.8 10^3/uL (1.8-7.7); NEUTROPHILS % 74.4 % (36.0-66.0); PLATELET COUNT, AUTOMATED 527 10^3/uL (150-450); RED BLOOD COUNT 4.99 10^6/uL (4.00-5.40); WHITE BLOOD COUNT 11.8 10^3/uL (4.0-10.0)
[2018-02-11 07:25] LABS: INR 0.88
[2018-02-11 07:39] LABS: ALT/SGPT 24 U/L (12-78); BILIRUBIN,DIRECT 0.1 MG/DL (0.0-0.2); BILIRUBIN,TOTAL 0.4 MG/DL (0.2-1.0); BLOOD UREA NITROGEN 15 MG/DL (7-18); CALCIUM LEVEL 8.6 MG/DL (8.5-10.1); CARBON DIOXIDE LEVEL 28 MEQ/L (21-32); CHLORIDE LEVEL 110 MEQ/L (98-107); CPK CREATINE PHOSPHOKINASE 120 U/L (26-192); GLOMERULAR FILTRATION RATE > 60.0 (>51); GLUCOSE, FASTING 87 MG/DL (70-100); LIPASE 87 U/L (73-393); MB/CK RELATIVE INDEX 1.08 (< OR =4); NT-PRO BNP 1277 PG/ML (<125); POTASSIUM SERUM 3.3 MEQ/L (3.5-5.1); SODIUM LEVEL 142 MEQ/L (136-145); THYROID STIMULATING HORMONE 0.831 uIU/ML (0.358-3.740); TOTAL PROTEIN 7.6 GM/DL (6.4-8.2); TROPONIN I 0.02 NG/ML (< 0.10)
--- NOTE | 2018-02-11 07:53 | REP ---
Clinical: Acute chest pain . Comparison: 02/07/2018 . Findings: The mediastinum and cardiac silhouette are stable and within normal limits for portable technique. The lung garvey are clear without acute consolidation, effusion, or pneumothorax. Skeletal structures are intact. Impression: No acute cardiopulmonary process appreciated. Electronically Signed by Elfego Villegas MD 02/11/2018 07:44 A
[2018-02-11 07:54] LABS: ERYTHROCYTE SEDIMENTATION RATE 27 mm/hr (0-30)
[2018-02-11 08:36] LABS: D-DIMER QUANT 925.83 ng/ml (<500)
[2018-02-11] MEDS ORDERED: ISOVUE-370 76% 100ML VIAL (Q9967) As Ordered ONE (09:03)
--- NOTE | 2018-02-11 09:39 | REP ---
Clinical: Acute chest pain with shortness of breath and elevated D-dimer levels. Technique: Axial contrast enhanced images from the thoracic inlet to the upper abdomen using 100 ml Isovue 370 intravenous contrast material with coronal and sagittal re-formations. Findings: Satisfactory enhancement of the pulmonary vasculature is achieved and no filling defects are identified to suggest pulmonary embolus. Diffuse interstitial prominence with peribronchial thickening and scattered bilateral subtle "tree-in-bud" opacities most compatible with diffuse bronchitis and acute pneumonitis. Underlying moderate emphysematous changes are also suggested. Reactive mediastinal and hilar adenopathy (right greater than left) noted. No effusion. No pneumothorax. Thoracic aorta is normal caliber without aneurysm or dissection. Heart and pericardium are normal. Impression: No evidence for pulmonary embolus. Diffuse findings as described above consistent with bronchitis and multifocal pneumonitis. Electronically Signed by Elfego Villegas MD 02/11/2018 09:31 A
[2018-02-11] MEDS: IPRATROPIUM 0.5MG/ALBUTEROL 2.5MG INH SOL UD 3ML (DUONEB)(J7620) NEB SCH ×3 (09:46→10:23)
[2018-02-11 10:38] VITALS: O2SAT 89
[2018-02-11] MEDS ORDERED: KETOROLAC 30 MG/ML VIAL (J1885) IV ONE (10:45)
[2018-02-11] MEDS ORDERED: CEFU50TA PO (11:52)
[2018-02-11] MEDS ORDERED: PRED20TA PO (11:53)
[2018-02-11 12:22] LABS: AMPHETAMINES LEVEL URINE NEGATIVE (NEGATIVE); BARBITURATES URINE NEGATIVE (NEGATIVE); BENZODIAZEPINES URINE NEGATIVE (NEGATIVE); CANNABINOIDS URINE POSITIVE (NEGATIVE); COCAINE METABOLITE URINE NEGATIVE (NEGATIVE); METHADONE URINE NEGATIVE (NEGATIVE); OPIATES URINE POSITIVE (NEGATIVE); PHENCYCLIDINE URINE NEGATIVE (NEGATIVE)
[2018-02-11 12:31] VITALS: BP 103/59
--- NOTE | 2018-02-13 08:30 | ED PDOC ---
Post-Departure Follow-Up radiology report faxed to Julee Cancino MD Feb 13, 2018 08:30
== END 2018-02-11 12:40 | disposition home or self-care (01) ==
LOC: M ED 06:55
DX: J44.1 Chronic obstructive pulmonary disease with (acute) exacerbation (principal); J40 Bronchitis, not specified as acute or chronic; M45.9 Ankylosing spondylitis of unspecified sites in spine; G89.29 Other chronic pain; M79.18 Myalgia, other site; I25.2 Old myocardial infarction; E78.5 Hyperlipidemia, unspecified; R56.9 Unspecified convulsions; I73.9 Peripheral vascular disease, unspecified; M19.90 Unspecified osteoarthritis, unspecified site; Z86.2 Personal history of diseases of the blood and blood-forming organs and certain disorders involving the immune mechanism; F17.200 Nicotine dependence, unspecified, uncomplicated; Z79.899 Other long term (current) drug therapy; Z79.02 Long term (current) use of antithrombotics/antiplatelets; Z79.82 Long term (current) use of aspirin
CPT/HCPCS: 71045; 71275; 80048; 80076; 80307; 82550; 82553; 83690; 83880; 84443; 84484; 85025; 85379; 85610; 85652; 86140; 87040; 93041; 94640; 94760; 96374; 96375; 99285; J1885; J2270; J2405; Q9967

== ENCOUNTER 2018-02-18 11:11 | Emergency (ER) | payer MEDICARE, MEDICAID ==
[~2018-02-18] VITALS: Ht 165.1 cm; Wt 58.6 kg
[~2018-02-18 11:11] MED LIST changes: +CEFU50TA PO
[2018-02-18] MEDS ORDERED: NS 1,000 ML IV ONE (12:00)
[2018-02-18] MEDS ORDERED: MORPHINE 4 MG/ML 1ML VIAL/SYRINGE (J2270) IV ONE ×3 (12:00→13:15)
[2018-02-18] MEDS ORDERED: ONDANSETRON 4MG/2ML VIAL (J2405) IV ONE (12:30)
[2018-02-18 12:33] LABS: BASO % 0.1 % (0.0-1.0); EOS % 0.1 % (0.0-3.0); HEMATOCRIT 38.4 % (36.0-47.0); HEMOGLOBIN 12.6 g/dl (12.0-15.5); LYMPH # 2.8 10^3/uL (1.5-4.5); LYMPH % 16.7 % (24.0-44.0); MEAN CORPUSCULAR HEMOGLOBIN 28.2 pg (27.0-33.0); MEAN CORPUSCULAR HGB CONC 32.8 g/dl (32.0-36.5); MEAN CORPUSCULAR VOLUME 85.9 fl (80.0-96.0); MONO # 1.1 10^3/uL (0.0-0.8); MONO % 6.4 % (0.0-5.0); NEUTROPHILS # 12.6 10^3/uL (1.8-7.7); NEUTROPHILS % 75.4 % (36.0-66.0); PLATELET COUNT, AUTOMATED 445 10^3/uL (150-450); RED BLOOD COUNT 4.47 10^6/uL (4.00-5.40); WHITE BLOOD COUNT 16.7 10^3/uL (4.0-10.0)
[2018-02-18 12:43] LABS: INR 0.86; PROTHROMBIN TIME 11.8 SECONDS (12.1-14.4)
[2018-02-18 12:44] LABS: PARTIAL THROMBOPLASTIN TIME 28.5 SECONDS (25.4-37.6)
[2018-02-18 13:08] LABS: ALBUMIN 2.9 GM/DL (3.2-5.2); BILIRUBIN,DIRECT 0.1 MG/DL (0.0-0.2); BILIRUBIN,TOTAL 0.4 MG/DL (0.2-1.0); CALCIUM LEVEL 8.1 MG/DL (8.5-10.1); CREATININE FOR GFR 1.13 MG/DL (0.55-1.30); GLOMERULAR FILTRATION RATE 52.5 (>51); POTASSIUM SERUM 3.5 MEQ/L (3.5-5.1); TOTAL PROTEIN 6.5 GM/DL (6.4-8.2)
[2018-02-18] MEDS ORDERED: ISOVUE-370 76% 100ML VIAL (Q9967) As Ordered ONE (13:15)
--- NOTE | 2018-02-18 14:05 | REP ---
CT abdomen and pelvis with IV but without oral contrast: History: Central abdominal pain. Leukocytosis. Comparison CT study February 07, 2018. CT contrast dose: 100 mL of intravenous Isovue [address] findings: Preliminary digital scouts radiograph is unremarkable. The lung bases are clear on axial CT images. The liver shows a tiny cyst in the right lobe 0.3 cm in greatest diameter. No significant focal liver lesion is seen. No splenic abnormalities observed. A tiny accessory splenule is seen inferior to the spleen. No adrenal lesion is seen. No abnormalities noted in the pancreas. No gallbladder abnormality is observed. The kidneys enhance symmetrically. There is a cyst in the periphery of the lower pole on the left which measures 1.2 cm in greatest diameter. No intrarenal calculus is observed. A retroaortic left renal vein is observed. Small and large intestinal bowel loops are unremarkable in the abdomen and pelvis. No retroperitoneal mass or adenopathy is observed. The aorta is calcific showing extensive plaquing. There is a distal aortic stent in the aorta. Common iliac artery narrowing and sclerosis are seen. There is a new finding of a fairly large hematoma in the distal rectus abdominus muscle sheath. This measures 8.1 cm craniocaudad by 4.7 cm anteroposterior by 7.0 cm medial to lateral. Hematoma is along the posterior surface of the distal rectus abdominus muscle. It extends over the superior pubic ramus and is seen indenting the right anterior bladder wall. No abdominal wall defect is observed. Study is otherwise unremarkable. No bony destructive lesion is seen. There are densely calcified left inguinal lymph nodes. Impression: There is a 8.1 x 4.7 x 7.0 cm hematoma in the distal rectus abdominis muscle sheath on the right in the suprapubic region. This is a new finding. The patient is status post distal aortic stent placement. Electronically Signed by Trung Lovelace MD 02/18/2018 05:07 P
[2018-02-18] MEDS ORDERED: NORCOTAB PO (15:34)
[2018-02-18] MEDS ORDERED: COLA100C5 PO (15:34)
[2018-02-18] MEDS ORDERED: BENZ200C70 PO (15:34)
[2018-02-18 15:50] VITALS: BP 112/62
== END 2018-02-18 15:52 | disposition home or self-care (01) ==
LOC: M ED 11:11
DX: S30.1XXA Contusion of abdominal wall, initial encounter (principal); R05 Cough; X58.XXXA Exposure to other specified factors, initial encounter; Y92.9 Unspecified place or not applicable; Y93.9 Activity, unspecified; Y99.9 Unspecified external cause status; Z95.1 Presence of aortocoronary bypass graft; Z95.5 Presence of coronary angioplasty implant and graft; Z85.828 Personal history of other malignant neoplasm of skin; G43.909 Migraine, unspecified, not intractable, without status migrainosus; R56.9 Unspecified convulsions; I25.2 Old myocardial infarction; I73.9 Peripheral vascular disease, unspecified; E78.00 Pure hypercholesterolemia, unspecified; I10 Essential (primary) hypertension; Z86.718 Personal history of other venous thrombosis and embolism; J44.9 Chronic obstructive pulmonary disease, unspecified; Z72.0 Tobacco use; R04.0 Epistaxis; K92.9 Disease of digestive system, unspecified; Z87.440 Personal history of urinary (tract) infections; N73.9 Female pelvic inflammatory disease, unspecified; M54.9 Dorsalgia, unspecified; M81.0 Age-related osteoporosis without current pathological fracture; F41.9 Anxiety disorder, unspecified; F32.9 Major depressive disorder, single episode, unspecified; Z79.82 Long term (current) use of aspirin; Z79.899 Other long term (current) drug therapy
CPT/HCPCS: 74177; 80048; 80076; 82150; 83605; 83690; 85025; 85610; 85730; 86850; 86900; 86901; 87507; 96361; 96374; 96376; 99284; G0328; J2270; Q9967

== ENCOUNTER → 2018-02-19 | Outpatient (CLI) | payer MEDICARE, MEDICAID ==
[~2018-02-19] MED LIST changes: +BENZ200C70 PO; +COLA100C5 PO; +NORCOTAB PO
--- NOTE | 2018-02-19 08:07 | REP ---
Bilateral lower extremity arterial Doppler ultrasound: History: Atherosclerosis. Bilateral lower extremity claudication. History of aortic stent. Findings: Minimal atherosclerotic plaquing is seen. Normal biphasic wave forms are seen throughout both lower extremities. Velocities are normal bilaterally. Ankle brachial indices are 1.1 on the right and left. These are normal. Velocity chart right lower extremity arteries: CF A 149 cm/S Profunda 86 Proximal SFA 88 Mid SFA 120 Distal SFA 121 Popliteal 73 Proximal AT A 55 Tibioperoneal trunk 66 Proximal [employer] 90 Distal [employer]OR 58 Distal AT A 40 Left lower extremity arterial Doppler velocity chart: CF A 148 cm/S Profunda 73 Proximal SFA 90 Mid SFA 99 Distal SFA 100 Popliteal 66 Proximal AT A 48 Tibioperoneal trunk 62 Proximal [employer]OR 48 Distal [employer]OR 34 Distal AT A 48 Electronically Signed by Trung Lovelace MD 02/19/2018 07:56 A
== END ==
LOC: M RAD 06:03
PROVIDERS: ATTEND Surgery Vascular Surgery
DX: I70.213 Atherosclerosis of native arteries of extremities with intermittent claudication, bilateral legs (principal)

== ENCOUNTER → 2018-02-22 | Outpatient (REF) | payer MEDICARE, MEDICAID ==
[~2018-02-22] MED LIST changes: +ARNU1INH3; +ASPI1TAB PO
[2018-02-22 17:01] LABS: BASO % 0.2 % (0.0-1.0); EOS % 0.4 % (0.0-3.0); HEMATOCRIT 35.1 % (36.0-47.0); HEMOGLOBIN 11.6 g/dl (12.0-15.5); LYMPH # 2.2 10^3/uL (1.5-4.5); LYMPH % 20.1 % (24.0-44.0); MEAN CORPUSCULAR HEMOGLOBIN 28.8 pg (27.0-33.0); MEAN CORPUSCULAR VOLUME 87.1 fl (80.0-96.0); MONO % 8.9 % (0.0-5.0); NEUTROPHILS # 7.7 10^3/uL (1.8-7.7); NEUTROPHILS % 69.9 % (36.0-66.0); PLATELET COUNT, AUTOMATED 405 10^3/uL (150-450); RED BLOOD COUNT 4.03 10^6/uL (4.00-5.40); WHITE BLOOD COUNT 11.1 10^3/uL (4.0-10.0)
== END ==
LOC: M SFHCLERA 11:47
PROVIDERS: ATTEND Nurse Practitioner Family
DX: S30.1XXA Contusion of abdominal wall, initial encounter (principal); J44.9 Chronic obstructive pulmonary disease, unspecified; Z79.899 Other long term (current) drug therapy; Y92.89 Other specified places as the place of occurrence of the external cause; X58.XXXA Exposure to other specified factors, initial encounter
CPT/HCPCS: 85025; G0463

== ENCOUNTER → 2018-03-23 | Outpatient (CLI) | payer MEDICARE, MEDICAID ==
--- NOTE | 2018-03-26 16:07 | REPMRS ---
Patient History The patient states she has not had a clinical breast exam in over a year. Patient had first child at age 33. No known family history of cancer. Digital Mammo Screening Bilat: March 23, 2018 - Exam #: [id number] Bilateral CC and MLO view(s) were taken. Technologist: Donna Mendoza, Technologist Prior study comparison: April 12, 2015, bilateral digital woman screen mammo, performed at [facility]. December 01, 2011, bilateral digital woman screen mammo, performed at [facility]. November 28, 2010, bilateral digital woman screen mammo, performed at [facility]. FINDINGS: There are scattered fibroglandular densities. There has been no change in the appearance of the mammogram from the prior studies. There is a mild amount of scattered fibroglandular density which is fairly symmetric. There is no interval development of dominant mass, architectural distortion, or clustered microcalcification suggestive of malignancy. 3-D tomosynthesis shows no additional findings. Assessment: BI-RADS/ACR category 1 mammogram. Negative Mammogram. Recommendation Routine screening mammogram of both breasts in 1 year (for women over age 40). This patient's Lifetime Breast Cancer RIsk is estimated at 10.8 %. This mammogram was interpreted with the aid of an FDA-approved computer-aided dectection system. Electronically Signed By: Robson Lovelace MD 03/26/18 0538
== END ==
LOC: M RAD 10:05
PROVIDERS: ATTEND Family Medicine
DX: Z12.31 Encounter for screening mammogram for malignant neoplasm of breast (principal)

== ENCOUNTER → 2018-04-13 | Outpatient (CLI) | payer MEDICARE, MEDICAID ==
[2018-04-13 09:14] LABS: BASO % 0.7 % (0.0-1.0); EOS # 0.1 10^3/uL (0.0-0.50); EOS % 2.1 % (0.0-3.0); HEMATOCRIT 42.6 % (36.0-47.0); HEMOGLOBIN 13.5 g/dl (12.0-15.5); LYMPH # 2.4 10^3/uL (1.5-4.5); LYMPH % 40.9 % (24.0-44.0); MEAN CORPUSCULAR HEMOGLOBIN 29.1 pg (27.0-33.0); MEAN CORPUSCULAR HGB CONC 31.7 g/dl (32.0-36.5); MEAN CORPUSCULAR VOLUME 91.8 fl (80.0-96.0); MONO # 0.4 10^3/uL (0.0-0.8); MONO % 7.6 % (0.0-5.0); NEUTROPHILS # 2.8 10^3/uL (1.8-7.7); NEUTROPHILS % 48.5 % (36.0-66.0); PLATELET COUNT, AUTOMATED 277 10^3/uL (150-450); RED BLOOD COUNT 4.64 10^6/uL (4.00-5.40); WHITE BLOOD COUNT 5.8 10^3/uL (4.0-10.0)
[2018-04-13 09:34] LABS: CREATININE FOR GFR 1.07 MG/DL (0.55-1.30); GLOMERULAR FILTRATION RATE 55.9 (>51); POTASSIUM SERUM 3.7 MEQ/L (3.5-5.1)
== END ==
LOC: M LAB 08:25
PROVIDERS: ATTEND Surgery Vascular Surgery
DX: I70.213 Atherosclerosis of native arteries of extremities with intermittent claudication, bilateral legs (principal); F17.218 Nicotine dependence, cigarettes, with other nicotine-induced disorders

== ENCOUNTER → 2018-04-20 | Outpatient (CLI) | payer MEDICARE, MEDICAID ==
[~2018-04-20] MED LIST changes: -ASPI1TAB PO; +ASPI81TA26 PO; +HEPARIN 1,000 UNITS/ML 10ML VIAL (FOR RADIOLOGY& DIALYSIS ONLY) As Ordered ONE; +HYDR-3715 PO; +ISOVUE-300 61% 50ML VIAL (Q9967) As Ordered ONE; +LIDOCAINE 2% MDV 20 ML VIAL As Ordered ONE; +MIDAZOLAM INJ 2 MG/2 ML VIAL (J2250) As Ordered ONE; -NORCOTAB PO; +RANI1SYP PO; +RANI75TA15 PO; +fentaNYL 100 MCG/2 ML INJECTION (J3010) As Ordered ONE
--- NOTE | 2018-05-19 07:24 | REPIR ---
DATE OF PROCEDURE: 04/20/2018 PREPROCEDURE DIAGNOSIS: Aortoiliac atherosclerotic arterial occlusive disease, right lower extremity claudication. POSTPROCEDURE DIAGNOSIS: Aortoiliac atherosclerotic arterial occlusive disease, right lower extremity claudication. PROCEDURE: Aortogram, iliofemoral angiogram, selective right common femoral artery catheter placement, right lower extremity angiogram, selective right superficial femoral artery catheter placement, right lower extremity angiogram, Mynx closure of the left common femoral arteriotomy. SURGEON: Dr. Chris Felix CAREER CONSULTANT: Isabel Pablo and Irene Escamilla. INDICATION: The patient is a 57-year-old female with aortoiliac atherosclerotic occlusive disease and right lower extremity claudication who will undergo right lower extremity angiogram with possible angioplasty, stent and/or atherectomy. Risks, benefits and alternative treatment options were discussed with the patient. ANESTHESIA: Local with sedation with 2 mg Versed, 100 mcg of fentanyl and 10 mL of 2% lidocaine. FLUORO TIME: 3.1 minutes. CONTRAST: 17 mL of Isovue 300. SEDATION TIME: From 8:18 a.m. to 8:59 a.m. for a total of 41 minutes. Sedation was administered and cardiopulmonary monitoring performed under my direct supervision. I was present for and directed the entire case. COMPLICATIONS: None. DRAINS: None. SPECIMENS: None. IMPLANTS: Left common femoral arteriotomy closure with a Mynx closure device. PROCEDURE: The patient was taken to the angiography suite, placed supine on the angiography room table and then prepped and draped in a standard surgical fashion. The left common femoral artery was cannulated with a micropuncture needle. A micropuncture wire was advanced through the micropuncture needle which was upsized to a micropuncture sheath. A Bentson wire was advanced through the micropuncture sheath which was upsized to a 5-[place] sheath. An Omniflush catheter was placed in the aorta and aortogram was performed. Catheter was pulled down the bifurcation of the iliac arteries and a pelvic aortogram and iliofemoral angiography was performed. Catheter was directed over the bifurcation of the iliac arteries, placed in the right common femoral artery and a right lower extremity angiogram was performed. Catheter was then advanced into the right superficial femoral artery and a selective right lower extremity angiogram was performed. This showed no intervention was required. Catheters and wires were removed. The sheath was removed and a Mynx closure was used to close the arteriotomy in the left common femoral artery with an additional 10 minutes of adjunctive pressure applied for hemostasis. Dressings were then applied. The patient tolerated the procedure well. All instrument, sponge, and needle counts were correct at the end of the case. There were no complications. Dr. Felix was present for directed the entire case. The patient was transferred to the holding area and subsequently discharged in stable condition. RADIOLOGY SUPERVISION INTERPRETATION: The aortogram showed the aorta to be widely patent. Superior mesenteric, celiac and renal arteries were patent as well as the lumbar vessels. The MARTÍNEZ was not visualized. The common iliac arteries were patent as well as the bilateral external and internal iliac artery. Catheter was advanced through the right common femoral artery and right lower extremity angiogram was performed showing the right common femoral, superficial femoral and profunda femoris arteries to be patent. Catheter was advanced through the right superficial femoral artery and a right lower extremity angiogram was performed showing the remainder of the vessels to be patent with no intervention required. A Mynx closure device was used to close the arteriotomy in the left common femoral artery.
== END | disposition home or self-care (01) ==
LOC: M IRPRO 06:29
PROVIDERS: ATTEND Surgery Vascular Surgery
DX: I70.211 Atherosclerosis of native arteries of extremities with intermittent claudication, right leg (principal); I70.0 Atherosclerosis of aorta
CPT/HCPCS: 36247; 75625; 75716; 75774; 99152; 99153; C1760; C1769; C1887; C1894; G0269; J2250; J3010; Q9967

== ENCOUNTER → 2018-04-22 | Outpatient (CLI) | payer MEDICAID, MEDICARE ==
[~2018-04-22] MED LIST changes: +ASPI1TAB PO; -ASPI81TA26 PO; -HEPARIN 1,000 UNITS/ML 10ML VIAL (FOR RADIOLOGY& DIALYSIS ONLY) As Ordered ONE; -HYDR-3715 PO; -ISOVUE-300 61% 50ML VIAL (Q9967) As Ordered ONE; -LIDOCAINE 2% MDV 20 ML VIAL As Ordered ONE; -MIDAZOLAM INJ 2 MG/2 ML VIAL (J2250) As Ordered ONE; +NORCOTAB PO; -RANI1SYP PO; -RANI75TA15 PO; -fentaNYL 100 MCG/2 ML INJECTION (J3010) As Ordered ONE
--- NOTE | 2018-04-22 12:23 | REP ---
LEFT FEMORAL ARTERIAL DOPPLER ULTRASOUND: HISTORY: Aneurysm of artery lower extremity. Rule out pseudoaneurysm. SONOGRAPHIC FINDINGS: Scanning in the region of the palpable lump in the left groin post angiography shows a lymph node which appears normal measuring 0.6 x 1.0 x 1.5 cm. The common femoral artery and the proximal superficial femoral artery were scanned. There is no evidence of pseudoaneurysm or aneurysm. Normal Doppler waveforms and velocities. IMPRESSION: No evidence of aneurysm or pseudoaneurysm. Small normal-sized normal appearing lymph node. Electronically Signed by Trung Lovelace MD 04/22/2018 01:40 P
== END ==
LOC: M RAD 10:16
PROVIDERS: ATTEND Surgery Vascular Surgery
DX: Z86.79 Personal history of other diseases of the circulatory system (principal)

== ENCOUNTER → 2018-04-29 | Outpatient (CLI) | payer MEDICARE, MEDICAID ==
[~2018-04-29] MED LIST changes: +ISOVUE-370 76% 100ML VIAL (Q9967) As Ordered ONE; +RANI1SYP PO
--- NOTE | 2018-04-29 13:49 | REP ---
CT CHEST WITH CONTRAST: 04/29/2018 COMPARISON: CTA chest 02/11/2018, CT 02/05/2017. CLINICAL HISTORY: Pulmonary Langerhans histiocytosis. Followup hilar lymphadenopathy. TECHNIQUE: Bolus of 75 mL Isovue 370 and scanning through the chest with coronal and sagittal reconstructions. FINDINGS: Lung garvey are well inflated. Some underlying interstitial lung disease. There is improvement in the diffuse pattern of peribronchial thickening, peripheral tree-in-bud type infiltrates and some areas of subsegmental atelectasis posteriorly on the previous study. There are a few scattered small nodules with irregular margins, similar to the 2017 study. All this would be consistent with Langerhans histiocytosis. There is some underlying interstitial fibrotic changes in the apices. Heart is not enlarged. There is no pericardial thickening or effusion. There is a 5.5 mm short axis diameter node at the right hilum. I do not see pathologic sized adenopathy in the mediastinum. Small nodes also at the left hilum but unchanged. The aorta is without aneurysm or dissection. It has a few scattered calcifications. The main, right and left pulmonary arteries and mediastinum are without filling defects. That portion of lobar arteries included are unremarkable. No axillary or supraclavicular masses. Trachea and airway intact. Bony thorax shows no compression deformity of acute basis. There is minor superior endplate wedging mid thoracic vertebral level unchanged. Sternum, manubrium, clavicles, AC joints, glenohumeral joints, humeral heads, scapulae ribs all grossly intact. Upper abdomen without acute findings. IMPRESSION: 1. Some chronic interstitial lung changes with improvement of the superimposed acute inflammatory process seen in the CT 3 months ago with no effusion, dense consolidation but with some ill-defined shaggy, irregular nodules again noted. All this would be consistent with your stated diagnosis of histiocytosis. No effusion, parenchymal mass, pathologic sized mediastinal or hilar adenopathy or other significant finding. Electronically Signed by Vito Munoz MD 04/29/2018 07:49 P
== END ==
LOC: M RAD 12:20
PROVIDERS: ATTEND Internal Medicine Medical Oncology
DX: C96.5 Multifocal and unisystemic Langerhans-cell histiocytosis (principal); R91.8 Other nonspecific abnormal finding of lung field; R59.0 Localized enlarged lymph nodes; F17.200 Nicotine dependence, unspecified, uncomplicated
CPT/HCPCS: 71260; Q9967

== ENCOUNTER 2018-05-06 08:51 | Day surgery (SDC) | payer MEDICAID, MEDICARE ==
[~2018-05-06] VITALS: Ht 167.6 cm; Wt 58.2 kg
[~2018-05-06 08:51] MED LIST changes: -ISOVUE-370 76% 100ML VIAL (Q9967) As Ordered ONE; -RANI1SYP PO
[2018-05-06] MEDS ORDERED: NS 1,000 ML IV ONE (09:30)
[2018-05-06] MEDS ORDERED: RANI1SYP PO (09:52)
[2018-05-06] MEDS ORDERED: PROPOFOL 200 MG/20 ML VIAL As Ordered ONE (10:36)
[2018-05-06] MEDS ORDERED: LIDOCAINE 2% INJ 100 MG/5 ML SDV (FOR ANES.) As Ordered ONE (10:36)
--- NOTE | 2018-05-06 10:56 | ROOR ---
Patient Name: Dora Freeman Procedure Date: 05/06/2018 10:24 AM Date of : 1960 Age: 57 Room: [facility] Gender: Female Note Status: Finalized Procedure: Upper GI endoscopy Indications: Heartburn Providers: Babar DEGROOT MD Referring MD: Pedro WILL MD Requesting Provider: Medicines: Monitored Anesthesia Care Complications: No immediate complications. Procedure: Pre-Anesthesia Assessment: - The heart rate, respiratory rate, oxygen saturations, blood pressure, adequacy of pulmonary ventilation, and response to care were monitored throughout the procedure. The Endoscope was introduced through the mouth, and advanced to the second part of duodenum. The upper GI endoscopy was accomplished without difficulty. The patient tolerated the procedure well. Findings: The Z-line was variable and was found at the gastroesophageal junction. The esophagus was normal. The stomach was normal. The examined duodenum was normal. Impression: - Z-line variable, at the gastroesophageal junction. - Normal esophagus. - Normal stomach. - Normal examined duodenum. - No specimens collected. Recommendation: - Observe patient's clinical course. - Continue present medications. Babar Degroot MD Babar DEGROOT MD 05/06/2018 10:38:07 AM This report has been signed electronically. Number of Addenda: 0 Note Initiated On: 05/06/2018 10:24 AM Estimated Blood Loss: Estimated blood loss: none.
--- NOTE | 2018-05-06 11:04 | ROOR ---
Patient Name: Dora Freeman Procedure Date: 05/06/2018 10:25 AM Date of : 1960 Age: 57 Room: [facility] Gender: Female Note Status: Finalized Procedure: Colonoscopy Indications: Positive fecal immunochemical test Providers: Babar DEGROOT MD Referring MD: Pedro WILL MD Requesting Provider: Medicines: Monitored Anesthesia Care Complications: No immediate complications. Procedure: Pre-Anesthesia Assessment: - The heart rate, respiratory rate, oxygen saturations, blood pressure, adequacy of pulmonary ventilation, and response to care were monitored throughout the procedure. The Colonoscope was introduced through the anus and advanced to the terminal ileum, with identification of the appendiceal orifice and IC valve. The colonoscopy was performed without difficulty. The patient tolerated the procedure well. The quality of the bowel preparation was adequate. Findings: The perianal and digital rectal examinations were normal. Four sessile polyps were found in the sigmoid colon, splenic flexure and ascending colon. The polyps were 4 to 6 mm in size. These polyps were removed with a cold snare. Resection and retrieval were complete. There were two small lipomata (with positive pillow sign) , at the hepatic flexure. Internal hemorrhoids were found during retroflexion. The hemorrhoids were moderate. The exam was otherwise without abnormality on direct and retroflexion views. Retroflexion in the right colon was performed. Impression: - Four 4 to 6 mm polyps in the sigmoid colon, at the splenic flexure and in the ascending colon, removed with a cold snare. Resected and retrieved. - Two small (1 cm and 2 cm) lipomata at the hepatic flexure. - Internal hemorrhoids. - The examination was otherwise normal on direct and retroflexion views. Recommendation: - Repeat colonoscopy in 3 years for surveillance. Babar Degroot MD Babar DEGROOT MD 05/06/2018 11:04:26 AM This report has been signed electronically. Number of Addenda: 0 Note Initiated On: 05/06/2018 10:25 AM Estimated Blood Loss: Estimated blood loss: none. Estimated blood loss: none.
[2018-05-06 11:30] VITALS: BP 156/70
[2018-05-10] MEDS ORDERED: RANI75TA15 PO (09:43)
== END 2018-05-06 11:34 | disposition home or self-care (01) ==
LOC: M OPP 08:51
PROVIDERS: ATTEND Internal Medicine Gastroenterology
DX: D12.5 Benign neoplasm of sigmoid colon (principal); D12.3 Benign neoplasm of transverse colon; D12.2 Benign neoplasm of ascending colon; D17.5 Benign lipomatous neoplasm of intra-abdominal organs; K64.8 Other hemorrhoids; R19.5 Other fecal abnormalities; K22.8 Other specified diseases of esophagus; R12 Heartburn; F17.210 Nicotine dependence, cigarettes, uncomplicated; I25.2 Old myocardial infarction; I48.91 Unspecified atrial fibrillation; Z79.899 Other long term (current) drug therapy; Z86.73 Personal history of transient ischemic attack (TIA), and cerebral infarction without residual deficits

== ENCOUNTER → 2018-05-17 | Outpatient (REF) | payer MEDICARE, MEDICAID ==
[~2018-05-17] MED LIST changes: +RANI1SYP PO; +RANI75TA15 PO
[2018-05-17 17:39] LABS: CHOLESTEROL RISK RATIO 3.172 (<5)
== END ==
LOC: M SFHCLERA 11:52
PROVIDERS: ATTEND Family Medicine
DX: R55 Syncope and collapse (principal); F43.9 Reaction to severe stress, unspecified; G40.909 Epilepsy, unspecified, not intractable, without status epilepticus; I73.9 Peripheral vascular disease, unspecified; F41.8 Other specified anxiety disorders; R12 Heartburn; M54.2 Cervicalgia; Z86.73 Personal history of transient ischemic attack (TIA), and cerebral infarction without residual deficits; Z79.899 Other long term (current) drug therapy

== ENCOUNTER → 2018-05-17 | Outpatient (CLI) | payer MEDICARE, MEDICAID ==
[~2018-05-17] MED LIST changes: -ASPI1TAB PO; +ASPI81TA26 PO; +HYDR-3715 PO; -NORCOTAB PO
== END ==
LOC: M LRY 12:02
PROVIDERS: ATTEND Family Medicine
DX: R55 Syncope and collapse (principal); F43.9 Reaction to severe stress, unspecified; F41.8 Other specified anxiety disorders; G40.909 Epilepsy, unspecified, not intractable, without status epilepticus; I73.9 Peripheral vascular disease, unspecified; R12 Heartburn; M54.2 Cervicalgia; Z86.73 Personal history of transient ischemic attack (TIA), and cerebral infarction without residual deficits
CPT/HCPCS: 80061; G0463

== ENCOUNTER → 2018-05-20 | Outpatient (CLI) | payer MEDICAID, MEDICARE ==
--- NOTE | 2018-05-20 09:52 | REP ---
CAROTID ULTRASOUND: Real-time ultrasound evaluation and duplex Doppler interrogation of the extracranial carotid vasculature is performed. There is mild plaquing and narrowing in both carotid bulbs extending into the internal and external carotid arteries. Luminal narrowing is less than 50%. There is no evidence of hemodynamically significant stenosis of either internal carotid artery. Normal flow velocities are seen. The vertebral arteries demonstrate normal direction of flow. RIGHT LEFT Peak systolic velocity ICA 72 cm/s 59.3 cm/s End diastolic velocity ICA 25.9 cm/s 21.3 cm/s Peak systolic velocity CCA 70.8 cm/s 65 cm/s Peak systolic velocity ECA 50.1 cm/s 65.9 cm/s ICA/CCA ratio 1.02 0.91 IMPRESSION: Bilateral luminal narrowing of the internal carotid arteries less than 50%. No evidence of hemodynamically significant stenosis. Electronically Signed by Pedro Levine MD 05/20/2018 09:44 A
== END ==
LOC: M RAD 07:50
PROVIDERS: ATTEND Family Medicine
DX: R55 Syncope and collapse (principal); I65.23 Occlusion and stenosis of bilateral carotid arteries

== ENCOUNTER → 2018-11-24 | Outpatient (REF) | payer MEDICARE ==
[~2018-11-24] MED LIST changes: -AZIT500T2 PO; +AZIT500T5 PO; -TRAZ-160 PO; +TRAZ-252 PO
[2018-11-24 16:45] LABS: BLOOD UREA NITROGEN 11 MG/DL (7-18); CALCIUM LEVEL 8.5 MG/DL (8.8-10.2); CARBON DIOXIDE LEVEL 29 MEQ/L (21-32); CHLORIDE LEVEL 111 MEQ/L (98-107); CHOLESTEROL LEVEL 151 MG/DL (<200); CHOLESTEROL RISK RATIO 2.516 (<5); GLOMERULAR FILTRATION RATE > 60.0 (>45); GLUCOSE, FASTING 75 MG/DL (70-100); HDL CHOLESTEROL 60 MG/DL (>40); LDL CHOLESTEROL 74 MG/DL (<100); NON-HDL-C 91 MG/DL; POTASSIUM SERUM 3.7 MEQ/L (3.5-5.1); SODIUM LEVEL 145 MEQ/L (136-145); TRIGLYCERIDES LEVEL 84 MG/DL (<150)
== END ==
LOC: M SFHCLERA 11:48
PROVIDERS: ATTEND Family Medicine
DX: I73.9 Peripheral vascular disease, unspecified (principal)

== ENCOUNTER → 2019-01-04 | Outpatient (CLI) | payer MEDICARE ==
--- NOTE | 2019-01-04 13:13 | REP ---
Five views lumbar spine: 01/04/2019. Indication: Low back pain. Comparison: 02/18/2018. Findings: There is no acute fracture, subluxation or dislocation. Aortic endograft is noted. Stable appearing inferior L2 endplate compression deformity is noted. Multilevel spondylosis is present most pronounced at L5/S1. Impression: No acute osseous injury of the lumbar spine. Electronically Signed by Al Hamilton DO 01/04/2019 01:04 P
== END ==
LOC: M LRY 11:42
PROVIDERS: ATTEND Nurse Practitioner Family
DX: M47.897 Other spondylosis, lumbosacral region (principal); M54.5 Low back pain
CPT/HCPCS: 72110; G0463

== ENCOUNTER → 2019-01-11 | Outpatient (CLI) | payer MEDICARE ==
--- NOTE | 2019-01-11 12:38 | REP ---
Clinical: Cough . Comparison: 02/11/2018 . Technique: PA and lateral. Findings: The mediastinum and cardiac silhouette are normal. The lung garvey are clear and without acute consolidation, effusion, or pneumothorax. The skeletal structures are intact and normal. Impression: 1. No acute cardiopulmonary process. Electronically Signed by Elfego Villegas MD 01/11/2019 12:30 P
== END ==
LOC: M LRY 11:48
PROVIDERS: ATTEND Nurse Practitioner Family
DX: R05 Cough (principal); R39.9 Unspecified symptoms and signs involving the genitourinary system
CPT/HCPCS: 71046; 81002; 87088; 87186; G0463

== ENCOUNTER → 2019-01-11 | Outpatient (REF) | payer MEDICARE | LOC: M SFHCLERA 13:04 | PROVIDERS: ATTEND Nurse Practitioner Family | DX: R39.9 Unspecified symptoms and signs involving the genitourinary system (principal) ==

== ENCOUNTER → 2019-03-29 | Outpatient (CLI) | payer MEDICARE ==
--- NOTE | 2019-03-29 09:14 | REPMRS ---
Patient History The patient states she has not had a clinical breast exam in over a year. Patient is postmenopausal and had first child at age 33. No known family history of cancer. No Hormone Replacement Therapy Digital Woman Screen Mammo: March 29, 2019 - Exam #: [id number] Bilateral CC and MLO view(s) were taken. Technologist: Ana García, Technologist Prior study comparison: March 23, 2018, bilateral digital mammo screening bilat, performed at [facility]. April 12, 2015, bilateral digital woman screen mammo, performed at [facility]. December 01, 2011, bilateral digital woman screen mammo, performed at [facility]. FINDINGS: There are scattered fibroglandular densities. There has been no change in the appearance of the mammogram from the prior studies. There is a mild amount of scattered fibroglandular density which is fairly symmetric. There is no interval development of dominant mass, architectural distortion, or grouped microcalcification suggestive of malignancy. 3-D tomosynthesis shows no additional findings. Assessment: BI-RADS/ACR category 1 mammogram. Negative Mammogram. Recommendation Routine screening mammogram of both breasts in 1 year (for women over age 40). This patient's Lifetime Breast Cancer Risk is estimated at 7.4 %. This mammogram was interpreted with the aid of an FDA-approved computer-aided dectection system. Electronically Signed By: Robson Lovelace MD 03/29/19 0914
== END ==
LOC: M WHC 06:46
PROVIDERS: ATTEND Family Medicine
DX: Z12.31 Encounter for screening mammogram for malignant neoplasm of breast (principal); Z78.0 Asymptomatic menopausal state

== ENCOUNTER → 2019-04-18 | Outpatient (CLI) | payer MEDICARE ==
[2019-04-18 14:24] LABS: BLOOD UREA NITROGEN 13 MG/DL (7-18); CALCIUM LEVEL 8.9 MG/DL (8.8-10.2); CARBON DIOXIDE LEVEL 28 MEQ/L (21-32); CHLORIDE LEVEL 114 MEQ/L (98-107); CREATININE FOR GFR 0.89 MG/DL (0.55-1.30); GLOMERULAR FILTRATION RATE > 60.0 (>45); GLUCOSE, FASTING 84 MG/DL (70-100); POTASSIUM SERUM 5.3 MEQ/L (3.5-5.1); SODIUM LEVEL 143 MEQ/L (136-145)
[2019-04-18 14:35] LABS: TOTAL 25(OH) VITAMIN D 29.7 NG/ML (30.0-100.0)
== END ==
LOC: M LAB 12:30
PROVIDERS: ATTEND Nurse Practitioner Family
DX: M81.0 Age-related osteoporosis without current pathological fracture (principal)

== ENCOUNTER 2019-04-25 10:51 | Outpatient (CLI) | payer MEDICARE ==
[~2019-04-25] VITALS: Ht 167.6 cm; Wt 57.6 kg
[2019-04-25] MEDS ORDERED: ZOLEDRONIC ACID 5 MG in IV 1 EA IV ONE (11:00)
[2019-04-25 11:41] VITALS: BP 136/84
[2019-04-25 12:05] VITALS: BP 150/67
== END 2019-04-25 12:05 | disposition home or self-care (01) ==
LOC: M INFU 10:51
PROVIDERS: ATTEND Internal Medicine Endocrinology, Diabetes & Metabolism
DX: M81.0 Age-related osteoporosis without current pathological fracture (principal)
CPT/HCPCS: 96365; J3489

== ENCOUNTER → 2019-05-02 | Outpatient (CLI) | payer MEDICARE ==
--- NOTE | 2019-05-02 14:33 | REP ---
CT CHEST WITHOUT CONTRAST: HISTORY: Abnormal lung field finding. Comparison chest CT studies are dated April 29, 2018, February 11, 2018, February 05, 2017, and April 26, 2015. 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 CT FINDINGS: Today's CT study shows continued improvement in the previously noted nodular opacities scattered about the lung garvey. Specifically, the most recent study from April of 2018 shows a 7 mm nodule in the left upper lobe on page 33 of 111 series 201 of that study which is just barely visible on today's exam in page 33 of 120 series 201. There is another slightly smaller left upper lobe nodule which is all but disappeared as well. There are emphysematous changes in scattered areas of minimal spiculation. No focal infiltrate is seen. No pleural or pericardial effusion is seen. There is some vascular calcification. No hilar or mediastinal mass or adenopathy is observed. IMPRESSION: Emphysematous changes again noted. Continued improvement in the previously noted bilateral shaggy nodule pattern. Electronically Signed by Trung Lovelace MD 05/02/2019 03:23 P
== END ==
LOC: M RAD 13:12
PROVIDERS: ATTEND Physician Assistant
DX: R91.8 Other nonspecific abnormal finding of lung field (principal)

== ENCOUNTER → 2019-05-18 | Outpatient (CLI) | payer MEDICARE | LOC: M LABSMTC 09:56 | PROVIDERS: ATTEND Family Medicine | DX: Z11.59 Encounter for screening for other viral diseases (principal); Z20.828 Contact with and (suspected) exposure to other viral communicable diseases ==

== ENCOUNTER → 2019-06-29 | Outpatient (CLI) | payer MEDICARE ==
[~2019-06-29] MED LIST changes: +EZET10TA21; +NORC1TAB7 PO; +PARO30TA4; +TOPI100T9
--- NOTE | 2019-07-07 14:45 | DEXA ---
AP SPINE L1 - L4 0.993 -1.6 -0.4 LT FEMUR TOTAL 0.647 -2.9 -1.9 LT NECK 0.704 -2.4 -1.1 RT FEMUR TOTAL 0.616 -3.1 -2.2 RT NECK 0.720 -2.3 -1.0 TOTAL BODY TOTAL OTHER COMMENTS: There is low bone density of the spine and hips. The increased density of the spine does represent a significant change. The increased density of the left hip does not represent significant change. The increased density of the right hip does represent a significant change. The density of the spine has increased 6.2% since the initial exam on 03/13/2010. The increased 13.2% since the most recent exam on 01/13/2017. The density of the left hip has decreased 4.6% since the initial exam on 03/13/2010. The density of the left hip has increased 0.2% since the most recent exam on 01/13/2017. The density of the right hip has increased 1.8% since the initial exam on 03/13/2010. The density of the right hip has increased 6.4% since the most recent exam on 01/13/2017. FOLLOW-UP: Recommendation for the next bone density exam: 2 years. TOSHIA
== END ==
LOC: M WHC 11:12
PROVIDERS: ATTEND Internal Medicine Endocrinology, Diabetes & Metabolism
DX: M81.0 Age-related osteoporosis without current pathological fracture (principal)

== ENCOUNTER 2019-07-04 13:37 | Emergency (ER) | payer MEDICARE ==
[~2019-07-04] VITALS: Ht 165.1 cm; Wt 57.4 kg
[~2019-07-04 13:37] MED LIST changes: -EZET10TA21; -NORC1TAB7 PO; -PARO30TA4; -TOPI100T9
[2019-07-04] MEDS ORDERED: EZET10TA21 (13:47)
[2019-07-04] MEDS ORDERED: TOPI100T9 (13:47)
[2019-07-04] MEDS ORDERED: PARO30TA4 (13:47)
[2019-07-04] MEDS ORDERED: ACETAMINOPHEN 500 MG TAB PO ONE (14:30)
[2019-07-04] MEDS ORDERED: NORC1TAB7 PO (14:57)
[2019-07-04 14:59] VITALS: BP 151/61
--- NOTE | 2019-07-04 16:48 | REP ---
THORACIC SPINE SERIES: Three AP and lateral views of thoracic spine are performed. There is an old mild compression deformity of T7, unchanged since the CT of the chest 05/02/2019. There appears to be new mild compression fracture of T5 with depression of the superior endplate. No other acute fracture or dislocation is seen. There is normal thoracic kyphosis. There is mild diffuse spurring. There is mild disc space narrowing and subchondral sclerosis at multiple levels. The posterior elements are intact. IMPRESSION: Old mild compression deformity T7. Suspect new mild compression fracture T5. Mild diffuse degenerative changes. Electronically Signed by Pedro Levine MD 07/04/2019 07:34 P
== END 2019-07-04 15:07 | disposition home or self-care (01) ==
LOC: M ED 13:37
DX: S22.050A Wedge compression fracture of T5-T6 vertebra, initial encounter for closed fracture (principal); X58.XXXA Exposure to other specified factors, initial encounter; Y92.89 Other specified places as the place of occurrence of the external cause; I25.10 Atherosclerotic heart disease of native coronary artery without angina pectoris; M81.0 Age-related osteoporosis without current pathological fracture; Z79.899 Other long term (current) drug therapy; Z79.82 Long term (current) use of aspirin; Z79.01 Long term (current) use of anticoagulants; F17.210 Nicotine dependence, cigarettes, uncomplicated

== ENCOUNTER → 2019-09-29 | Outpatient (REF) | payer MEDICARE ==
[~2019-09-29] MED LIST changes: +EZET10TA21; +NORC1TAB7 PO; +PARO30TA4; +TOPI100T9
== END ==
LOC: M LAB REF 13:09
PROVIDERS: ATTEND Dermatology
DX: L81.4 Other melanin hyperpigmentation (principal); L57.0 Actinic keratosis

== ENCOUNTER → 2020-01-06 | Outpatient (CLI) | payer MEDICARE, MEDICAID ==
--- NOTE | 2020-01-06 08:54 | REP ---
INDICATION: GENERALIZED ABD PAIN. COMPARISON: None. TECHNIQUE: Real-time sonographic evaluation of ABDOMEN performed. FINDINGS: The gallbladder demonstrates no evidence of intraluminal sludge or calculi, wall thickening or pericholecystic fluid. There is no intrahepatic or extrahepatic biliary dilatation, common bile duct measures 6 mm in maximum diameter. Liver demonstrates a 6 mm echogenic focus in the posterior right lobe likely representing a subcentimeter hemangioma. No other liver abnormality is seen. The pancreas demonstrates homogeneous echotexture with no gross mass. Spleen is normal in size with no intrinsic abnormality, measuring 8.5 cm in length. There is no evidence of hydronephrosis or calculus in either kidney. The right kidney measures 8.6 x 3.8 x 3.8 cm. Left renal dimensions are 9.9 x 5.2 x 4.9 cm. There is a 1.6 cm cyst in lower pole of the left kidney. The abdominal aorta is not visualized. No free fluid is seen. IMPRESSION: A 6 mm echogenic focus in the posterior right lobe of the liver likely representing cysts a small hemangioma. Small cyst left kidney. Otherwise negative abdominal ultrasound. <Electronically signed by Pedro Levine > 01/06/20 3218
== END ==
LOC: M RAD 07:00
PROVIDERS: ATTEND Nurse Practitioner Family
DX: R10.84 Generalized abdominal pain (principal); N28.1 Cyst of kidney, acquired; K76.89 Other specified diseases of liver

== ENCOUNTER 2020-03-14 15:03 | Emergency (ER) | payer MEDICARE, MEDICAID ==
[~2020-03-14] VITALS: Ht 152.4 cm; Wt 51.8 kg
[2020-03-14 15:03] VITALS: BP 165/72
--- OUTSIDE RECORDS SUMMARY | 2020-03-14 15:10 | CCD | Continuity of Care Document ---
Author Dora Russ M.D. Organization Unknown Address [address] [place] [id number] Phone [phone] Care Team Providers Care Housekeeping Director Name Role Phone Geena Hogan GLASS LAMINATING OPERATOR AUTM [phone] Problems Active Problems Provider Date Syncope and collapse Carmelita Jason M.D. Onset: 09/05/2014 Migraine Carmelita Jason M.D. Onset: 09/05/2014 Carpal tunnel syndrome Carmelita Jason M.D. Onset: 09/05/2014 Neck pain Carmelita Jason M.D. Onset: 09/05/2014 Chronic back pain Carmelita Jason M.D. Onset: 09/05/2014 Low back pain Carmelita Jason M.D. Onset: 01/13/2017 Spondylolysis of cervical spine Carmelita Jason M.D. Onset: 1 03/15/2016 Spondylolysis Carmelita Jason M.D. Onset: 01/13/2017 Migraine without aura, not refractory Carmelita Jason M.D. On set: 01/13/2017 Chronic tension-type headache Carmelita Jason M.D. Onset: History of cerebrovascular accident without residual deficit s Carmelita Jason M.D. Onset: 01/13/2017 Cerebral infarction due to internal carotid artery occlusion Carmelita Jason M.D. Onset: 03/07/2020 Social History Type Date Description Comments Sex Unknown ETOH Use Occasionally consumes alcohol Tobacco Use Start: Unknown Heavy tobacco smoker (more than 10 cigarettes/day) Recreational Drug Use Negative For Formerly used Marijuana sporadically Allergies, Adverse Reactions, Alerts Description No Known Drug Allergies Medications Active Medications SIG Qnty Indications Ordering Provide r Date Topiramate 100mg Tablets 1 by mouth bid. 60tabs Carmelita Jason M.D. 01/13/2017 Gabapentin 300mg Capsules 1 by mouth tid. 90benjamín Jason M.D. 01/13/2017 Gabapentin 100mg Capsules 1 by mouth twice a day 60benjamín Jason M.D. 10/04/2014 Immunizations Description No Information Available Vital Signs Date Vital Result Comment 10/04/2014 2:24pm BP Systolic 90 mmHg BP Diastolic 60 mmHg Heart Rate 74 /min Respiratory Rate 16 /min Height 66 inches 5'6" Weight 118.00 lb BMI (Body Mass Index) 19.0 kg/m2 [place] Body Weight 130 lb 09/05/2014 8:16am BP Systolic 115 mmHg BP Diastolic 70 mmHg Heart Rate 74 /min Respiratory Rate 16 /min Height 66 inches 5'6" Weight 118.00 lb BMI (Body Mass Index) 19.0 kg/m2 [place] Body Weight 130 lb Results Description No Information Available Procedures Date Code Description Status 02/22/2020 7 Balance Forward Completed Medical Devices Description No Information Available Encounters Type Date Location Provider Dx Diagnosis Office Visit 03/07/2020 9:00a [facility] office - [place] Angelina Lilly G43.009 Migraine w/o aura, not intractable, w/o status migrainosus G44.229 Chronic tension-type headach e, not intractable G40.89 Other seizures R55 Syncope and collapse I63.032 Cerebral infarction due to t hrombosis of left carotid artery Assessments Date Code Description Provider 03/07/2020 G43.009 Migraine without aur a, not intractable, without status migrainosus Carmelita Jason M.D. 03/07/2020 G44.229 Chronic tension-type headache, n ot intractable Carmelita Jason M.D. 03/07/2020 G40.89 Other seizures Carmelita Jason M.D. 03/07/2020 R55 Syncope and collapse Carmelita Jason M.D. 03/07/2020 I63.032 Cerebral infarction due to throm bosis of left carotid artery Carmelita Jason M.D. 02/22/2020 M54.5 Low back pain Carmelita Jason M.D. Plan of Treatment Future Appointment(s):* 04/18/2020 11:30 am - Carmelita Jason M.D. at Main office - [place] * 03/28/2020 1:15 pm - [facility] at Main office - [place] Functional Status Description No Information Available Mental Status Description No Information Available Referrals Description No Information Available
--- OUTSIDE RECORDS SUMMARY | 2020-03-14 15:10 | CCD ---
Author Author [facility] Organization [facility] Address Unknown Phone Unavailable Care Team Providers Care Marine Architect Name Role Phone Geena Hogan Unavailable PROBLEMS Type Condition ICD9-CM Code RAF13-LS Code Onset Dates Condition S tatus SNOMED Code Notes Problem 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 Active 003727620 Problem Osteoporosis without current pathological fracture, unspecified osteoporosis type M81.0 Active 79844355 Problem Chronic pain syndrome G89.4 Active 646516161 Problem 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 Active 65 610185 Problem Tobacco use disorder F17.200 Active 412947621 Problem PAD (peripheral artery disease) I73.9 Active 987575236 Problem History of IN (myocardial infarction) I25.2 Ac tive 850454426 Problem Perimenopausal atrophic vaginitis N95.2 Active 340145804 Problem Bilateral hand pain 729.5 Active 16501214 Problem Vaginal bleeding N93.9 Active 639946511 Problem Peripheral neuropathy 356.9 Active 33104086 Problem Epidermoid cyst of skin of chest 706.2 Active 290457407 Problem Osteoporosis 733.00 Active 32044535 Problem 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 65 775109 Problem Cervical facet syndrome M46.92 Active 62212818 6 Problem Stress at home F43.9 Active 382376125 Problem Hyperlipidemia LDL goal <100 272.4 Active 558 31640 Problem 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 Ac tive 743291529 Problem Osteoarthritis 715.90 Active 305423195 Problem Myalgia M79.1 Active 05425496 Problem PAD (peripheral artery disease) 443.9 Active 439607032 Problem Chronic obstructive pulmonary disease, unspecified COPD ty pe J44.9 Active 63968822 Problem History of IN (myocardial infarction) 412 Ac tive 413198439 Problem Cocaine abuse F14.10 Active 88558141 Problem Seizure disorder 345.90 Active 812822567 Problem Stuttering F80.81 Active 27430941 Problem History of CVA (cerebrovascular accident) V12.54 Active 056979868 Problem Frequency-urgency syndrome N31.8 Active 27476 3002 Problem Influenza vaccination declined Z28.21 Active 3 48851584 Problem Hip arthritis M16.10 Active 81055043 Problem Gastroesophageal reflux disease, esophagitis pre sence not specified K21.9 Active 087010283 Problem Other chronic pain G89.29 Active 50634582 Problem Adjustment disorder with mixed anxiety and depressed mood F43.23 Active 600358217 Problem Constipation, unspecified constipation type K59.00 Active 53925419 Problem COPD (chronic obstructive pulmonary disease) 496 Active 19461605 Problem Sacroiliac inflammation M46.1 Active 35114838 Problem DDD (degenerative disc disease), lumbar 722.52 Active 96158242 Problem Degenerative disc disease, lumbar M51.36 Active 59598028 Problem COPD exacerbation J44.1 Active 185139434 Problem Tobacco abuse 305.1 Active 61010558 Problem Seizure disorder G40.909 Active 032957061 Problem COPD with exacerbation J44.1 Active 630324112 ALLERGIES Allergen (clinical drug ingredient) Drug/Non Drug Allergy do cumented on EMR Reaction Allergy Type Onset Date Status varenicline Chantix([facility] Code:[address]-89) depression Drug Allergy Active Wellbutrin Nightmares Drug Allergy Active ENCOUNTERS from 1960 to 2020-03-07 Encounter Location Date Provider Diagnosis [facility] [address] [place] [address], Geena Hogan IMMUNIZATIONS Vaccine Route Administration Date Status Pneumovax (Given Elsewhere) Unknown Dec 05, 2019 Admi nistered Influenza (Pharmacy Given) Unknown Dec 05, 2019 Admin istered Influenza (Pharmacy Given) Unknown Dec 21, 2017 Admin istered Influenza (18 yrs & older) Flublok IM Intramuscular Nov 24, 2018 Administered Pneumococcal Adult 0.5mL (Pneumovax 23) IM Intramuscular Dec 25, 2016 Administered Pneumococcal 0.5mL (Prevnar 13) Unknown September 03, 2018 Administered Influenza (6mo & up) Fluzone IM Intramuscular Dec 25, 2016 Ad ministered SOCIAL HISTORY Tobacco Use: Social History Observation Description Date Details (start date - stop date) Current Smoker Sex Assigned At : Social History Observation Description Sex Assigned At Unknown Education: Question Answer Notes Level of Education: High School Audit Question Answer Notes Total Score: 0 Interpretation: Alcohol Education Language: Question Answer Notes Languages spoken: Maltese Scientology: Question Answer Notes Scientology 33 None Sexual Hx: Question Answer Notes Had sex in the last 12 months (vaginal, oral, or anal)? Yes Have you ever had an STD? No with Men only Drug and Alcohol Question Answer Notes Total Score: 1 Interpretation: Low level Alcohol Screening: Question Answer Notes Did you have a drink containing alcohol in the past year? Ye s Points 1 Interpretation Negative How many drinks did you have on a typica l day when you were drinking in the past year? 1 or 2 (0 points) How often did you have a drink containing alcohol in t he past year? Monthly or less (1 point) Tobacco Use: Question Answer Notes Are you a: current smoker Smoking Cessation Information Given 04/11/2019 Patient counseled on the dangers of tobacco use and urged to quit: 04/11/2019 How many cigarettes a day do you smoke? 6-10 Are you interested in quitting? Ready to quit Counseled the patient on tobacco use, cessation provided 03/2019 REASON FOR REFERRAL No Information VITAL SIGNS No information MEDICATIONS Medication SIG (Take, Route, Frequency, Duration) Notes Start Da te End Date Status Ciprofloxacin HCl 500 MG 1 tablet Orally every 12 hrs for 5 day( s) Dec, Active Topamax 100 MG 1 tablet Orally Twice a day for 90 Active Gabapentin 400 MG 1 capsule Orally bid for 90 days Feb, Active Tizanidine HCl 4 MG 1 tablet Oral BID prn for 30 Days Active Albuterol Sulfate HFA 108 (90 Base) MCG/ACT 2 puffs as needed Inhalation every 6 hrs Active Albuterol Sulfate (2.5 MG/3ML) 0.083% 3 ml as needed I nhalation Three times a day for 14 day(s) Active Bactrim DS 800-160 MG 1 tablet Orally Twice a day for 3 days Nov, Active Lipitor 80 MG 1 tablet Orally Once a day for 90 days Active Tizanidine HCl 4 MG 2 tablets Orally before bedt geetha (not t o exceed 24mg/day) for 5 days Nov, Active Pantoprazole Sodium 20 MG 1 tablet Orally Once a day for 30 day( s) Mar, Active Aspir-81 81 MG 1 tablet Orally Once a day for 90 days Active Alprazolam 0.5 MG 1 tablet as needed Orally Twice a day (MDD;2) for 30 Days June, Active Ezetimibe 10 MG 1 tablet Orally Once a day for 90 Active Paxil 30 mg 1 tablet in the morning Orally Once a day for 90 day(s) Active Lidocaine HCl Urethral/Mucosal 2 % as directed Externally qid fo r 21 days Apr, Active Clopidogrel Bisulfate 75 MG 1 tablet Orally Once a day for 90 da ys Nov, Active PROCEDURES No Information RESULTS No Results REASON FOR VISIT Refill MEDICAL (GENERAL) HISTORY Type Description Date Medical History History of CVA (cerebrovascular accident ) Medical History History of IN (myocardial infarction) Medical History Seizure disorder Medical History PAD (peripheral artery disease) Medical History Peripheral neuropathy Medical History Tobacco abuse Medical History DDD (degenerative disc disease), lumbar Medical History Osteoarthritis Medical History Hyperlipidemia LDL goal < 100 Medical History COPD (chronic obstructive pulmonary dise ase) Medical History osteoporosis Medical History urethral poylps Surgical History stent in abdomen 2009 Surgical History 1994 Surgical History hysterectomy 1995 Surgical History angiogram 2009 Surgical History numerous laps done Surgical History digital removed from pinky toe Surgical History 2 heart catherizations Surgical History CYSTO 09/10/2017 Surgical History encoscope & colonoscopy 05/06/[address] Felix 07/2018 Surgical History nerve blocks in back 03/2019 Hospitalization History above Goals Section No Information Health Concerns No Information MEDICAL EQUIPMENT No Information MENTAL STATUS No Information FUNCTIONAL STATUS No Information ASSESSMENTS No Information PLAN OF TREATMENT Medication Medication Name Sig Start Date Stop Date Tizanidine HCl 4 MG 2 tablets Orally before bedt geetha (not t o exceed 24mg/day) for 5 days Nov, Bactrim DS 800-160 MG 1 tablet Orally Twice a day for 3 days Nov, Topamax 100 MG 1 tablet Orally Twice a day for 90 Lipitor 80 MG 1 tablet Orally Once a day for 90 days Ciprofloxacin HCl 500 MG 1 tablet Orally every 12 hrs for 5 day( s) Dec, Insurance Providers Payer Name Payer Address Payer Phone Insured Name Patient Relati onship to Insured Coverage Start Date Coverage End Date MEDIC[facility] [address] [address] [facility] [id number] B[place]IE BAEZA MEDICAID [employer] [address] [facility] [id number] [place]
--- OUTSIDE RECORDS SUMMARY | 2020-03-14 15:10 | CCD ---
Author Author [facility] Organization 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 Active 65 997232 Problem Tobacco use disorder F17.200 Active 573186468 Problem PAD (peripheral artery disease) I73.9 Active 568523248 Problem History of OH (myocardial infarction) I25.2 Ac tive 859263621 Problem Perimenopausal atrophic vaginitis N95.2 Active 222319039 Problem Bilateral hand pain 729.5 Active 65462252 Problem Vaginal bleeding N93.9 Active 646310149 Problem Peripheral neuropathy 356.9 Active 89203890 Problem Epidermoid cyst of skin of chest 706.2 Active 209979229 Problem Osteoporosis 733.00 Active 35822992 Problem 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 65 614194 Problem Cervical facet syndrome M46.92 Active 88874134 6 Problem Stress at home F43.9 Active 299790629 Problem Hyperlipidemia LDL goal <100 272.4 Active 558 59785 Problem 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 Ac tive 682262220 Problem Osteoarthritis 715.90 Active 954237624 Problem Myalgia M79.1 Active 36860791 Problem PAD (peripheral artery disease) 443.9 Active 456761027 Problem Chronic obstructive pulmonary disease, unspecified COPD ty pe J44.9 Active 04529933 Problem History of OH (myocardial infarction) 412 Ac tive 846476469 Problem Cocaine abuse F14.10 Active 70253890 Problem Seizure disorder 345.90 Active 805908163 Problem Stuttering F80.81 Active 46854363 Problem History of CVA (cerebrovascular accident) V12.54 Active 227433237 Problem Frequency-urgency syndrome N31.8 Active 42116 3002 Problem Influenza vaccination declined Z28.21 Active 3 22271534 Problem Hip arthritis M16.10 Active 81701222 Problem Gastroesophageal reflux disease, esophagitis pre sence not specified K21.9 Active 851226518 Problem Other chronic pain G89.29 Active 06431315 Problem Adjustment disorder with mixed anxiety and depressed mood F43.23 Active 050014565 Problem Constipation, unspecified constipation type K59.00 Active 01163278 Problem COPD (chronic obstructive pulmonary disease) 496 Active 44338716 Problem Sacroiliac inflammation M46.1 Active 55021984 Problem DDD (degenerative disc disease), lumbar 722.52 Active 15227142 Problem Degenerative disc disease, lumbar M51.36 Active 54416543 Problem COPD exacerbation J44.1 Active 843536178 Problem Tobacco abuse 305.1 Active 30110241 Problem Seizure disorder G40.909 Active 016906202 Problem COPD with exacerbation J44.1 Active 941056335 ALLERGIES Allergen (clinical drug ingredient) Drug/Non Drug Allergy do cumented on EMR Reaction Allergy Type Onset Date Status varenicline Chantix([facility] Code:[address]-87) depression Drug Allergy Active Wellbutrin Nightmares Drug Allergy Active ENCOUNTERS from 1960 to 2020-02-28 Encounter Location Date Provider Diagnosis [facility] [address] [place] [address], Geena Hogan Seizure disorder G40.909 IMMUNIZATIONS Vaccine Route Administration Date Status Pneumovax [...] Education: High School Audit Question Answer Notes Interpretation: Alcohol Education Total Score: 0 Language: Question Answer Notes Languages spoken: [place] Christianity: Question Answer Notes Christianity 33 None Sexual Hx: Question Answer Notes [...] hrs for 5 day( s) Dec, Active Clopidogrel Bisulfate 75 MG 1 tablet Orally Once a day for 90 da ys Nov, Active Alprazolam 0.5 MG 1 tablet as needed Orally Twice a day (MDD;2) for 30 Days June, Active Tizanidine HCl 4 MG 1 tablet [...] a day for 3 days Nov, Active Tizanidine HCl 4 MG 2 tablets Orally before bedt geetha (not t o exceed 24mg/day) for 5 days Nov, Active Gabapentin 400 MG 1 capsule Orally bid for 90 days Feb, Active Pantoprazole Sodium 20 MG 1 tablet Orally Once a day for 30 day( s) Mar, Active Ezetimibe 10 MG 1 tablet Orally Once a day for 90 Active Topamax 100 MG 1 tablet Orally Twice a day for 90 Active Lipitor 80 MG 1 tablet Orally Once a day for 90 days Active Paxil 30 mg 1 tablet in the morning Orally Once a day for 90 day(s) Active Lidocaine HCl Urethral/Mucosal 2 % as directed Externally qid fo r 21 days Apr, Active Aspir-81 81 MG 1 tablet Orally Once a day for 90 days Active PROCEDURES No Information RESULTS No Results REASON FOR VISIT Referral MEDICAL (GENERAL) HISTORY Type Description Date Medical History History of CVA (cerebrovascular accident ) Medical History History of [place] (myocardial infarction) Medical History Seizure disorder Medical [...] No Information FUNCTIONAL STATUS No Information ASSESSMENTS Encounter Date Diagnosis Assessment Notes Treatment Notes Treatm ent Clinical Notes Feb, Seizure disorder (ICD-10 - G40.909) PLAN OF TREATMENT Medication Medication Name Sig Start Date Stop Date Tizanidine HCl 4 MG 2 tablets Orally before bedt geetha (not t o exceed 24mg/day) for 5 days Nov, Bactrim DS 800-160 MG 1 tablet Orally Twice a day for 3 days Nov, Ciprofloxacin HCl 500 MG 1 tablet Orally every 12 hrs for 5 day( s) Dec, Lipitor 80 MG 1 tablet Orally Once a day for 90 days Insurance Providers Payer Name Payer Address Payer Phone Insured Name Patient Relati onship to Insured Coverage Start Date Coverage End Date MEDICAID [employer] [address] [facility] [id number] [place] [employer]AEZA MEDICARE COMPLETE [employer] [address] [address] [facility] [id number] [employer]
--- OUTSIDE RECORDS SUMMARY | 2020-03-14 15:10 | CCD ---
Author Organization Unknown Address [address] [place] [address] Phone [phone] Care Team Providers Care Wood Handler Name Role Phone [facility] ([facility]) 3 [phone] Allergies Code Code System Name Reaction Severity Status Onset NKDA Medications Name Status Start Date Stop Date albuterol sulfate 2.5 mg/3 mL (0.083 %) solution for nebulization INHALE THE CONTENTS OF ONE VIAL VIA NEBULIZER THREE TIMES A DAY NEEDED FOR 14 DAYS Active Not available albuterol sulfate HFA 90 mcg/actuation a erosol inhaler INHALE TWO PUFFS BY MOUTH FOUR TIMES A DAY NEEDED Completed 01/25/2020 alprazolam 0.5 mg tabs Completed 09/09/19 20 alprazolam 0.5 mg tablet TAKE ONE TABLET BY MOUTH TWICE A DAY NEEDED MAXIMUM DAILY DOSE TWO TABLETS Completed 12/28/2019 Anoro Ellipta 62.5 mcg-25 mcg/actuation powder for inhalation INHALE ONE PUFF BY MOUTH EVERY DAY Completed 12/17 Arnuity Ellipta 200 mcg/actuation powder for inhalation Complete d 12/28/2019 atorvastatin 40 mg tablet Completed 2017 atorvastatin 80 mg tablet Active Not av ailable atorvastatin calcium 80 mg tabs Completed 09/09/2019 azithromycin 500 mg tablet Completed 01/13 baclofen 10 mg tablet TAKE ONE TABLET BY MOUTH THREE TIMES A DAY NEEDED Active Not available Belbuca 75 mcg buccal film Completed 01/13 carisoprodol 350 mg tabs Completed 2019 carisoprodol 350 mg tablet Take 1 tablet 3 times a day by oral route as needed for 5 days. Completed 09/09/2019 cefuroxime axetil 500 mg tablet Completed 04/29/2018 ciprofloxacin 500 mg tablet TAKE ONE TABLET BY MOUTH EVERY 12 HOURS FOR 5 DAYS Active Not available clopidogrel 75 mg tabs Completed 09/09/19 20 clopidogrel 75 mg tablet Active Not ulysses ilable cyclobenzaprine 10 mg tablet TAKE ONE TABLET BY MOUTH EVERY DAY AT BEDTIME Completed 12/28/2019 doxycycline hyclate 100 mg capsule Completed 01/13/2018 doxycycline monohydrate 100 mg caps Completed 09/09/2019 doxycycline monohydrate 100 mg capsule Completed 12/28/2019 duloxetine 30 mg capsule,delayed release Completed 01/13/2018 estradiol 0.01% (0.1 mg/gram) vaginal cream Completed 01/13/2018 ezetimibe 10 mg tabs Completed 09/09/2019 ezetimibe 10 mg tablet Active Not avail able famotidine 40 mg tabs Completed 0 famotidine 40 mg tablet Completed 12/28/19 20 fluconazole 100 mg tablet Completed 2017 Fluzone Quad (PF) 60 mcg (15 m cg x 4)/0.5 mL IM suspension INJECT DIRECTED Completed 01/25/2020 gabapentin 300 mg caps Completed 09/09/19 20 gabapentin 400 mg caps Completed 09/09/19 20 gabapentin 100 mg capsule TAKE ONE CAPSULE BY MOUTH TWICE A DAY Active N ot available gabapentin 300 mg capsule TAKE ONE CAPSULE BY MOUTH TWICE A DAY Active N ot available gabapentin 400 mg capsule Active Not av ailable hydroco/apap tab 5-325mg Completed hydrocodone 5 mg-acetaminophen 325 mg tablet Completed 09/09/2019 ipratropium 0.5 mg-albuterol 3 mg (2.5 m g base)/3 mL nebulization soln twice a day as needed Completed 12/28/2019 ipratropium bromide 0.03 % nasal spray Completed 01/13/2018 ipratropium/ kaelyn albuter Completed 020 lidocaine 5 % topical patch Completed 12/17 lidocaine HCl 2 % mucosal jelly Completed 09/09/2019 lidocaine hcl jelly 2 % gel Completed methylprednisolone 4 mg tablets in a dose pack Completed 12/28/2019 methylprednisolone dose pack 4 mg tbpk Completed 09/09/2019 naproxen 375 mg tablet Completed 8 nitrofurantoin monohydrate/macrocrystals 100 mg capsule Complete d 12/28/2019 nortriptyline 25 mg capsule TAKE ONE CAPSULE BY MOUTH EVERY DAY Completed nystatin 100,000 unit/mL oral suspension Completed 01/13/2018 omeprazole 20 mg cpdr Completed 0 omeprazole 20 mg capsule,delayed release TAKE ONE CAPSULE BY MOUTH EVERY DAY 30 MINUTES BEFORE MORNING MEAL NEEDED Completed 12/28/2019 oxycodone-acetaminophen 5 mg-325 mg tablet Completed 03/03/2018 pantoprazole 20 mg tablet,delayed release Completed 12/28/2019 pantoprazole sodium 20 mg tbec Completed 09/09/2019 paroxetine 30 mg tablet Active Not avai lable paroxetine hcl 30 mg tabs Completed 09/08 phenazopyridine 200 mg tablet TAKE ONE TABLET BY MOUTH THREE TIMES A DAY AFTER MEALS Completed 12/28/2019 Pneumovax-23 25 mcg/0.5 mL injection kaelyn ution INJECT DIRECTED Active Not available prednisone 20 mg tabs Completed 0 prednisone 10 mg tablet Completed 01/14/20 18 prednisone 20 mg tablet Completed 09/09/19 20 ranitidine 150 mg tablet Completed 020 sulfamethoxazole 800 mg-trimethoprim 160 mg tablet Completed 12/28/2019 tizanidine 4 mg tablet TAKE ONE TABLET BY MOUTH EVERY 6 HOURS NEEDED Active Not available tizanidine hydrochloride 4 mg tabs Completed 09/09/2019 topiramate 100 mg tabs Completed 09/09/19 20 topiramate 100 mg tablet Active Not ulysses ilable tramadol 50 mg tablet Completed 03/03/2018 trazodone 50 mg tablet 1 tab daily Completed 09/09/2019 Trelegy Ellipta 100 mcg-62.5 mcg-25 mcg powder for inhalation Co mpleted 01/13/2018 Zipsor 25 mg capsule Take 1 capsule 4 times a day by oral route as needed. Unknown Not available Problems None recorded. Procedures Date Name Performed by Fluoroscopic Angiography of Artery of Ab domen and Insertion of Stent Information not available Cardiac Catheterization Information not available Hysterectomy Information not avai lable Section Information not avai lable 08/11/2018 MRI, Cervical Spine, W/o Contrast [facility] [address] [address] (Work Place) Results Lab Results Date Name Specimen Result Interpretation Description Value Range Status Address 12/30/2019 [facility] Report NOS No observation recorded. [facility]: [address] [facility], [place] 12/30/2019 COVID-19 RNA (SARS-CoV-2), QL, speech and language clinician-PCR, Respirat ory Specimen NOS Normal Sars-cov-2 negative negative Final [facility]: [address], [place] 12/10/2019 [facility] Report NOS No observation recorded. [facility]: [address], [place] 12/10/2019 COVID-19 RNA (SARS-CoV-2), QL, speech and language clinician-PCR, Respirat ory Specimen NOS Normal Sars-cov-2 negative negative Final [facility]: [address], [place] 08/29/2019 COVID-19 RNA (SARS-CoV-2), QL, speech and language clinician-PCR, Respiratory Specim en No observation recorded. Past Encounters 02/20/2020 Myofascial Pain; Degeneration of Lumbar Intervertebral Disc; Degeneration of Lumbosacral Intervertebral Disc; Displacement of Lumbar Intervertebral Disc without Myelopathy; Intervertebral Disc Disorder; Spondylosis without Myelopathy; Lumbosacral Spondylosis without Myelopathy; Lumbar Radiculopathy; Inflammation of Sacroiliac Joint; Pain in Right Hip Joint; Spinal Stenosis of Lumbar Region; Cervical Spondylosis without Myelopathy; Cervical Radiculopathy; Displacement of Cervical Intervertebral Disc without Myelopathy; Degeneration of Cervical Intervertebral Disc; Thoracic Radiculopathy; Displacement of Thoracic Intervertebral Disc without Myelopathy; Degeneration of Thoracic Intervertebral Disc; Thoracic Spondylosis without Myelopathy; Compression Fracture of Thoracic Vertebra Duy Valente MD: [id number] [address], [facility] [place] [address], Ph. 01/25/2020 Degeneration of Lumbar Intervertebral Disc; Degeneration of Lumbosacral Intervertebral Disc; Displacement of Lumbar Intervertebral Disc without Myelopathy; Intervertebral Disc Disorder; Spondylosis without Myelopathy; Lumbosacral Spondylosis without Myelopathy; Lumbar Radiculopathy; Inflammation of Sacroiliac Joint; Pain in Right Hip Joint; Spinal Stenosis of Lumbar Region; Cervical Spondylosis without Myelopathy; Myofascial Pain; Cervical Radiculopathy; Displacement of Cervical Intervertebral Disc without Myelopathy; Degeneration of Cervical Intervertebral Disc; Thoracic Radiculopathy; Displaceme nt of Thoracic Intervertebral Disc without Myelopathy; Degeneration of Thoracic Intervertebral Disc; Thoracic Spondylosis without Myelopathy; Compression Fracture of Thoracic Vertebra Ely Mcmullen NP: [id number] [facility], [facility] [place] [address], Ph. 01/05/2020 Thoracic Radiculopathy; Degeneration of Thoracic Intervertebral Disc; Displacement of Thoracic Intervertebral Disc without Myelopathy; Compression Fracture of Thoracic Vertebra; Thoracic Spondylosis without Myelopathy; Degeneration of Lumbar Intervertebral Disc; Degeneration of Lumbosacral Intervertebral Disc; Displacement of Lumbar Intervertebral Disc without Myelopathy; Intervertebral Disc Disorder; Spondylosis without Myelopathy; Lumbosacral Spondylosis without Myelopathy; Lumbar Radiculopathy; Inflammation of Sacroiliac Joint; Pain in Right Hip Joint; Spinal Stenosis of Lumbar Region; Cervical Spondylosis without Myelopathy; Myofascial Pain; Cervical Radiculopathy; Displacement of Cervical Intervertebral Disc without Myelopathy; Degeneration of Cervical Intervertebral Disc Duy Valente MD: [id number] [address], [facility] [place] [address], Ph. 12/30/2019 Pre-surgery Testing; Viral Screening Duy Valente MD: [id number] [address], [facility] [place] [address], Ph. [phone] 12/28/2019 Degeneration of Lumbar Intervertebral Disc; Degeneration of Lumbosacral Intervertebral Disc; Displacement of Lumbar Intervertebral Disc without Myelopathy; Intervertebral Disc Disorder; Spondylosis without Myelopathy; Lumbosacral Spondylosis without Myelopathy; Lumbar Radiculopathy; Inflammation of Sacroiliac Joint; Pain in Right Hip Joint; Spinal Stenosis of Lumbar Region; Cervical Spondylosis without Myelopathy; Myofascial Pain; Cervical Radiculopathy; Displacement of Cervical Intervertebral Disc without Myelopathy; Degeneration of Cervical Intervertebral Disc; Thoracic Radiculopathy; Displaceme nt of Thoracic Intervertebral Disc without Myelopathy; Degeneration of Thoracic Intervertebral Disc; Thoracic Spondylosis without Myelopathy; Compression Fracture of Thoracic Vertebra Ely Mcmullen NP: [id number] [facility] [address], [facility] [place] [address], Ph. 12/15/2019 Lumbosacral Spondylosis without Myelopathy; Spondylosis without Myelopathy; Degeneration of Lumbar Intervertebral Disc; Degeneration of Lumbosacral Intervertebral Disc; Cervical Radiculopathy; Displacement of Cervical Intervertebral Disc without Myelopathy; Degeneration of Cervical Intervertebral Disc; Cervical Spondylosis without Myelopathy; Displacement of Lumbar Intervertebral Disc without Myelopathy; Intervertebral Disc Disorder; Lumbar Radiculopathy; Inflammation of Sacroiliac Joint; Pain in Right Hip Joint; Spinal Stenosis of Lumbar Region; Myofascial Pain Duy Valente MD: [id number] [address], Ph. 12/14/2019 Lumbosacral Spondylosis without Myelopathy; Spondylosis without Myelopathy; Degeneration of Lumbar Intervertebral Disc; Degeneration of Lumbosacral Intervertebral Disc; Cervical Radiculopathy; Displacement of Cervical Intervertebral Disc without Myelopathy; Degeneration of Cervical Intervertebral Disc; Cervical Spondylosis without Myelopathy; Displacement of Lumbar Intervertebral Disc without Myelopathy; Intervertebral Disc Disorder; Lumbar Radiculopathy; Inflammation of Sacroiliac Joint; Pain in Right Hip Joint; Spinal Stenosis of Lumbar Region; Myofascial Pain Duy Valente MD: [id number] [address], Ph. 12/09/2019 Pre-surgery Testing; Viral Screening Duy Valente MD: [id number] [address], Ph. [phone] 11/22/2019 Degeneration of Lumbar Intervertebral Disc; Degeneration of Lumbosacral Intervertebral Disc; Displacement of Lumbar Intervertebral Disc without Myelopathy; Intervertebral Disc Disorder; Spondylosis without Myelopathy; Lumbosacral Spondylosis without Myelopathy; Lumbar Radiculopathy; Inflammation of Sacroiliac Joint; Pain in Right Hip Joint; Spinal Stenosis of Lumbar Region; Cervical Spondylosis without Myelopathy; Myofascial Pain; Cervical Radiculopathy; Displacement of Cervical Intervertebral Disc without Myelopathy; Degeneration of Cervical Intervertebral Disc Ely Mcmullen NP: [id number] [address], [place] [address], Ph. 10/18/2019 Degeneration of Lumbar Intervertebral Disc; Degeneration of Lumbosacral Intervertebral Disc; Displacement of Lumbar Intervertebral Disc without Myelopathy; Intervertebral Disc Disorder; Spondylosis without Myelopathy; Lumbosacral Spondylosis without Myelopathy; Lumbar Radiculopathy; Inflammation of Sacroiliac Joint; Pain in Right Hip Joint; Spinal Stenosis of Lumbar Region; Cervical Spondylosis without Myelopathy; Myofascial Pain; Cervical Radiculopathy; Displacement of Cervical Intervertebral Disc without Myelopathy; Degeneration of Cervical Intervertebral Disc Duy Valente MD: [address] [address], [place] [address], Ph. 10/06/2019 Degeneration of Lumbar Intervertebral Disc; Degeneration of Lumbosacral Intervertebral Disc; Displacement of Lumbar Intervertebral Disc without Myelopathy; Intervertebral Disc Disorder; Spondylosis without Myelopathy; Lumbosacral Spondylosis without Myelopathy; Lumbar Radiculopathy; Inflammation of Sacroiliac Joint; Pain in Right Hip Joint; Spinal Stenosis of Lumbar Region; Cervical Spondylosis without Myelopathy; Myofascial Pain; Cervical Radiculopathy; Displacement of Cervical Intervertebral Disc without Myelopathy; Degeneration of Cervical Intervertebral Disc Ely Mcmullen NP: [id number] [address], Ph. 09/20/2019 Degeneration of Lumbar Intervertebral Disc; Degeneration of Lumbosacral Intervertebral Disc; Displacement of Lumbar Intervertebral Disc without Myelopathy; Intervertebral Disc Disorder; Spondylosis without Myelopathy; Lumbosacral Spondylosis without Myelopathy; Lumbar Radiculopathy; Inflammation of Sacroiliac Joint; Pain in Right Hip Joint; Spinal Stenosis of Lumbar Region; Cervical Spondylosis without Myelopathy; Myofascial Pain; Cervical Radiculopathy; Displacement of Cervical Intervertebral Disc without Myelopathy; Degeneration of Cervical Intervertebral Disc Duy Valente MD: [id number] [address], [place] [address], Ph. 09/09/2019 Degeneration of Lumbar Intervertebral Disc; Degeneration of Lumbosacral Intervertebral Disc; Displacement of Lumbar Intervertebral Disc without Myelopathy; Intervertebral Disc Disorder; Spondylosis without Myelopathy; Lumbosacral Spondylosis without Myelopathy; Lumbar Radiculopathy; Inflammation of Sacroiliac Joint; Pain in Right Hip Joint; Spinal Stenosis of Lumbar Region; Cervical Spondylosis without Myelopathy; Myofascial Pain; Cervical Radiculopathy; Displacement of Cervical Intervertebral Disc without Myelopathy; Degeneration of Cervical Intervertebral Disc Ely Mcmullen, POUNCING LATHE OPERATOR: [id number] [address], [facility] [place] [address], Ph. 09/01/2019 Lumbosacral Spondylosis without Myelopathy; Spondylosis without Myelopathy; Degeneration of Lumbar Intervertebral Disc; Degeneration of Lumbosacral Intervertebral Disc; Displacement of Lumbar Intervertebral Disc without Myelopathy; Intervertebral Disc Disorder; Lumbar Radiculopathy; Inflammation of Sacroiliac Joint; Pain in Right Hip Joint; Spinal Stenosis of Lumbar Region; Cervical Spondylosis without Myelopathy; Myofascial Pain; Cervical Radiculopathy; Displacement of Cervical Intervertebral Disc without Myelopathy; Degeneration of Cervical Intervertebral Disc Duy Valente MD: [id number] [address], [place] [address], Ph. 08/29/2019 Pre-surgery Testing; Viral Screening Duy Valente MD: [id number] [address], [facility] [place] [address], Ph. [phone] 08/16/2019 Degeneration of Lumbar Intervertebral Disc; Degeneration of Lumbosacral Intervertebral Disc; Displacement of Lumbar Intervertebral Disc without Myelopathy; Intervertebral Disc Disorder; Spondylosis without Myelopathy; Lumbosacral Spondylosis without Myelopathy; Lumbar Radiculopathy; Inflammation of Sacroiliac Joint; Pain in Right Hip Joint; Spinal Stenosis of Lumbar Region; Cervical Spondylosis without Myelopathy; Myofascial Pain; Cervical Radiculopathy; Displacement of Cervical Intervertebral Disc without Myelopathy; Degeneration of Cervical Intervertebral Disc Ely Mcmullen POUNCING LATHE OPERATOR: [id number] [address], [facility] [place] [address], Ph. 07/15/2019 Degeneration of Lumbar Intervertebral Disc; Degeneration of Lumbosacral Intervertebral Disc; Displacement of Lumbar Intervertebral Disc without Myelopathy; Intervertebral Disc Disorder; Spondylosis without Myelopathy; Lumbosacral Spondylosis without Myelopathy; Lumbar Radiculopathy; Inflammation of Sacroiliac Joint; Pain in Right Hip Joint; Spinal Stenosis of Lumbar Region; Cervical Spondylosis without Myelopathy; Myofascial Pain; Cervical Radiculopathy; Displacement of Cervical Intervertebral Disc without Myelopathy; Degeneration of Cervical Intervertebral Disc Ely Mcmullen NP: [id number] [address], [place] [address], Ph. 07/08/2019 Degeneration of Lumbar Intervertebral Disc; Degeneration of Lumbosacral Intervertebral Disc; Displacement of Lumbar Intervertebral Disc without Myelopathy; Intervertebral Disc Disorder; Spondylosis without Myelopathy; Lumbosacral Spondylosis without Myelopathy; Lumbar Radiculopathy; Inflammation of Sacroiliac Joint; Pain in Right Hip Joint; Spinal Stenosis of Lumbar Region; Cervical Spondylosis without Myelopathy; Myofascial Pain; Cervical Radiculopathy; Displacement of Cervical Intervertebral Disc without Myelopathy; Degeneration of Cervical Intervertebral Disc Ely Mcmullen POUNCING LATHE OPERATOR: [address] [address], Ph. 03/29/2019 Myofascial Pain; Degeneration of Lumbar Intervertebral Disc; Degeneration of Lumbosacral Intervertebral Disc; Displacement of Lumbar Intervertebral Disc without Myelopathy; Intervertebral Disc Disorder; Spondylosis without Myelopathy; Lumbosacral Spondylosis without Myelopathy; Lumbar Radiculopathy; Inflammation of Sacroiliac Joint; Pain in Right Hip Joint; Spinal Stenosis of Lumbar Region; Cervical Spondylosis without Myelopathy; Cervical Radiculopathy; Displacement of Cervical Intervertebral Disc without Myelopathy; Degeneration of Cervical Intervertebral Disc Duy Valente MD: [id number] [address], Ph. 03/17/2019 Degeneration of Lumbar Intervertebral Disc; Degeneration of Lumbosacral Intervertebral Disc; Displacement of Lumbar Intervertebral Disc without Myelopathy; Intervertebral Disc Disorder; Spondylosis without Myelopathy; Lumbosacral Spondylosis without Myelopathy; Lumbar Radiculopathy; Inflammation of Sacroiliac Joint; Pain in Right Hip Joint; Spinal Stenosis of Lumbar Region; Cervical Spondylosis without Myelopathy; Myofascial Pain; Cervical Radiculopathy; Displacement of Cervical Intervertebral Disc without Myelopathy; Degeneration of Cervical Intervertebral Disc Ely Mcmullen NP: [id number] [address], [place] [address], Ph. 01/31/2019 Lumbosacral Spondylosis without Myelopathy; Spondylosis without Myelopathy; Degeneration of Lumbar Intervertebral Disc; Degeneration of Lumbosacral Intervertebral Disc; Cervical Radiculopathy; Displacement of Cervical Intervertebral Disc without Myelopathy; Degeneration of Cervical Intervertebral Disc; Cervical Spondylosis without Myelopathy; Displacement of Lumbar Intervertebral Disc without Myelopathy; Intervertebral Disc Disorder; Lumbar Radiculopathy; Inflammation of Sacroiliac Joint; Pain in Right Hip Joint; Spinal Stenosis of Lumbar Region; Myofascial Pain Duy Valente MD: [id number] [address], Ph. 11/29/2018 Lumbosacral Spondylosis without Myelopathy; Spondylosis without Myelopathy; Degeneration of Lumbar Intervertebral Disc; Degeneration of Lumbosacral Intervertebral Disc; Cervical Radiculopathy; Displacement of Cervical Intervertebral Disc without Myelopathy; Degeneration of Cervical Intervertebral Disc; Cervical Spondylosis without Myelopathy; Displacement of Lumbar Intervertebral Disc without Myelopathy; Intervertebral Disc Disorder; Lumbar Radiculopathy; Inflammation of Sacroiliac Joint; Pain in Right Hip Joint; Spinal Stenosis of Lumbar Region; Myofascial Pain Duy Valente MD: [id number] [address], Ph. 11/11/2018 Cervical Radiculopathy; Displacement of Cervical Intervertebral Disc without Myelopathy; Degeneration of Cervical Intervertebral Disc; Cervical Spondylosis without Myelopathy; Degeneration of Lumbar Intervertebral Disc; Degeneration of Lumbosacral Intervertebral Disc; Displacement of Lumbar Intervertebral Disc without Myelopathy; Intervertebral Disc Disorder; Spondylosis without Myelopathy; Lumbosacral Spondylosis without Myelopathy; Lumbar Radiculopathy; Inflammation of Sacroiliac Joint; Pain in Right Hip Joint; Spinal Stenosis of Lumbar Region; Myofascial Pain Duy Valente MD: [id number] [address], [place] [address], Ph. 10/27/2018 Lumbosacral Spondylosis without Myelopathy; Spondylosis without Myelopathy; Degeneration of Lumbar Intervertebral Disc; Degeneration of Lumbosacral Intervertebral Disc; Displacement of Lumbar Intervertebral Disc without Myelopathy; Intervertebral Disc Disorder; Lumbar Radiculopathy; Inflammation of Sacroiliac Joint; Pain in Right Hip Joint; Spinal Stenosis of Lumbar Region; Cervical Spondylosis without Myelopathy; Myofascial Pain; Cervical Radiculopathy; Displacement of Cervical Intervertebral Disc without Myelopathy; Degeneration of Cervical Intervertebral Disc Duy Valente MD: [address] [address], [place] [address], Ph. 10/08/2018 Degeneration of Lumbar Intervertebral Disc; Degeneration of Lumbosacral Intervertebral Disc; Displacement of Lumbar Intervertebral Disc without Myelopathy; Intervertebral Disc Disorder; Spondylosis without Myelopathy; Lumbosacral Spondylosis without Myelopathy; Lumbar Radiculopathy; Inflammation of Sacroiliac Joint; Pain in Right Hip Joint; Spinal Stenosis of Lumbar Region; Cervical Spondylosis without Myelopathy; Myofascial Pain; Cervical Radiculopathy; Displacement of Cervical Intervertebral Disc without Myelopathy; Degeneration of Cervical Intervertebral Disc Ely Mcmullen NP: [id number] [address], [place] [address], Ph. 10/04/2018 Lumbosacral Spondylosis without Myelopathy; Spondylosis without Myelopathy; Degeneration of Lumbar Intervertebral Disc; Degeneration of Lumbosacral Intervertebral Disc; Displacement of Lumbar Intervertebral Disc without Myelopathy; Intervertebral Disc Disorder; Lumbar Radiculopathy; Inflammation of Sacroiliac Joint; Pain in Right Hip Joint; Spinal Stenosis of Lumbar Region; Cervical Spondylosis without Myelopathy; Myofascial Pain; Cervical Radiculopathy; Displacement of Cervical Intervertebral Disc without Myelopathy; Degeneration of Cervical Intervertebral Disc Duy Valente MD: [address] [address], [place] [address], Ph. 09/20/2018 Cervical Radiculopathy; Displacement of Cervical Intervertebral Disc without Myelopathy; Degeneration of Cervical Intervertebral Disc; Cervical Spondylosis without Myelopathy; Degeneration of Lumbar Intervertebral Disc; Degeneration of Lumbosacral Intervertebral Disc; Displacement of Lumbar Intervertebral Disc without Myelopathy; Intervertebral Disc Disorder; Spondylosis without Myelopathy; Lumbosacral Spondylosis without Myelopathy; Lumbar Radiculopathy; Inflammation of Sacroiliac Joint; Pain in Right Hip Joint; Spinal Stenosis of Lumbar Region; Myofascial Pain Duy Valente MD: [address] [address], Ph. 09/08/2018 Degeneration of Lumbar Intervertebral Disc; Degeneration of Lumbosacral Intervertebral Disc; Displacement of Lumbar Intervertebral Disc without Myelopathy; Intervertebral Disc Disorder; Spondylosis without Myelopathy; Lumbosacral Spondylosis without Myelopathy; Lumbar Radiculopathy; Inflammation of Sacroiliac Joint; Pain in Right Hip Joint; Spinal Stenosis of Lumbar Region; Cervical Spondylosis without Myelopathy; Myofascial Pain; Cervical Radiculopathy; Displacement of Cervical Intervertebral Disc without Myelopathy; Degeneration of Cervical Intervertebral Disc Ely Mcmullen NP: [address] [id number], Ph. 08/11/2018 Degeneration of Lumbar Intervertebral Disc; Degeneration of Lumbosacral Intervertebral Disc; Displacement of Lumbar Intervertebral Disc without Myelopathy; Intervertebral Disc Disorder; Spondylosis without Myelopathy; Lumbosacral Spondylosis without Myelopathy; Lumbar Radiculopathy; Inflammation of Sacroiliac Joint; Pain in Right Hip Joint; Spinal Stenosis of Lumbar Region; Cervical Spondylosis without Myelopathy; Myofascial Pain; Cervical Radiculopathy; Displacement of Cervical Intervertebral Disc without Myelopathy; Degeneration of Cervical Intervertebral Disc Ely Mcmullen NP: [id number] [address], Ph. 07/21/2018 Lumbar Radiculopathy; Degeneration of Lumbar Intervertebral Disc; Degeneration of Lumbosacral Intervertebral Disc; Displacement of Lumbar Intervertebral Disc without Myelopathy; Intervertebral Disc Disorder; Spondylosis without Myelopathy; Lumbosacral Spondylosis without Myelopathy; Inflammation of Sacroiliac Joint; Pain in Right Hip Joint; Spinal Stenosis of Lumbar Region; Cervical Spondylosis without Myelopathy; Myofascial Pain Duy Valente MD: [id number] [address], Ph. 07/19/2018 Degeneration of Lumbar Intervertebral Disc; Degeneration of Lumbosacral Intervertebral Disc; Displacement of Lumbar Intervertebral Disc without Myelopathy; Intervertebral Disc Disorder; Spondylosis without Myelopathy; Lumbosacral Spondylosis without Myelopathy; Lumbar Radiculopathy; Inflammation of Sacroiliac Joint; Pain in Right Hip Joint; Spinal Stenosis of Lumbar Region; Cervical Spondylosis without Myelopathy; Myofascial Pain Duy Valente MD: [id number] [address], Ph. 06/11/2018 Degeneration of Lumbar Intervertebral Disc; Degeneration of Lumbosacral Intervertebral Disc; Displacement of Lumbar Intervertebral Disc without Myelopathy; Intervertebral Disc Disorder; Spondylosis without Myelopathy; Lumbosacral Spondylosis without Myelopathy; Lumbar Radiculopathy; Inflammation of Sacroiliac Joint; Pain in Right Hip Joint; Spinal Stenosis of Lumbar Region; Cervical Spondylosis without Myelopathy; Myofascial Pain Ely Mcmullen NP: [id number] [address], [place] [address], Ph. 05/21/2018 Degeneration of Lumbar Intervertebral Disc; Degeneration of Lumbosacral Intervertebral Disc; Displacement of Lumbar Intervertebral Disc without Myelopathy; Intervertebral Disc Disorder; Spondylosis without Myelopathy; Lumbosacral Spondylosis without Myelopathy; Lumbar Radiculopathy; Inflammation of Sacroiliac Joint; Pain in Right Hip Joint; Spinal Stenosis of Lumbar Region; Cervical Spondylosis without Myelopathy; Myofascial Pain Duy Valente MD: [id number] [address], [place] [address], Ph. 05/07/2018 Degeneration of Lumbar Intervertebral Disc; Degeneration of Lumbosacral Intervertebral Disc; Displacement of Lumbar Intervertebral Disc without Myelopathy; Intervertebral Disc Disorder; Spondylosis without Myelopathy; Lumbosacral Spondylosis without Myelopathy; Lumbar Radiculopathy; Inflammation of Sacroiliac Joint; Pain in Right Hip Joint; Spinal Stenosis of Lumbar Region; Cervical Spondylosis without Myelopathy; Myofascial Pain Duy Valente MD: [address] [address] [address], Ph. 04/29/2018 Degeneration of Lumbar Intervertebral Disc; Degeneration of Lumbosacral Intervertebral Disc; Displacement of Lumbar Intervertebral Disc without Myelopathy; Intervertebral Disc Disorder; Spondylosis without Myelopathy; Lumbosacral Spondylosis without Myelopathy; Lumbar Radiculopathy; Inflammation of Sacroiliac Joint; Pain in Right Hip Joint; Spinal Stenosis of Lumbar Region; Cervical Spondylosis without Myelopathy; Myofascial Pain Ely Mcmullen, POUNCING LATHE OPERATOR: [id number] [facility] [address], [place] [address], Ph. 04/06/2018 Degeneration of Lumbar Intervertebral Disc; Degeneration of Lumbosacral Intervertebral Disc; Displacement of Lumbar Intervertebral Disc without Myelopathy; Intervertebral Disc Disorder; Spondylosis without Myelopathy; Lumbosacral Spondylosis without Myelopathy; Lumbar Radiculopathy; Inflammation of Sacroiliac Joint; Pain in Right Hip Joint; Spinal Stenosis of Lumbar Region; Cervical Spondylosis without Myelopathy; Myofascial Pain Duy Valente MD: [id number] [address], [place] [address], Ph. 03/03/2018 Degeneration of Lumbar Intervertebral Disc; Degeneration of Lumbosacral Intervertebral Disc; Displacement of Lumbar Intervertebral Disc without Myelopathy; Intervertebral Disc Disorder; Spondylosis without Myelopathy; Lumbosacral Spondylosis without Myelopathy; Lumbar Radiculopathy; Inflammation of Sacroiliac Joint; Pain in Right Hip Joint; Spinal Stenosis of Lumbar Region; Cervical Spondylosis without Myelopathy; Myofascial Pain Ely Mcmullen, POUNCING LATHE OPERATOR: [id number] [facility] [address], [place] [address], Ph. 01/28/2018 Degeneration of Lumbar Intervertebral Disc; Degeneration of Lumbosacral Intervertebral Disc; Displacement of Lumbar Intervertebral Disc without Myelopathy; Intervertebral Disc Disorder; Spondylosis without Myelopathy; Lumbosacral Spondylosis without Myelopathy; Lumbar Radiculopathy; Inflammation of Sacroiliac Joint; Pain in Right Hip Joint; Spinal Stenosis of Lumbar Region Duy Valente MD: [id number] [address], [facility] [place] [address], Ph. 01/13/2018 Degeneration of Lumbar Intervertebral Disc; Degeneration of Lumbosacral Intervertebral Disc; Displacement of Lumbar Intervertebral Disc without Myelopathy; Intervertebral Disc Disorder; Spondylosis without Myelopathy; Lumbosacral Spondylosis without Myelopathy; Lumbar Radiculopathy; Inflammation of Sacroiliac Joint; Pain in Right Hip Joint; Spinal Stenosis of Lumbar Region Duy Valente MD: [id number] [facility] [address], [address], [place] [address], Ph. Social History Tobacco Smoking Status Heavy Tobacco Smoker (1/2 PPD) Vaccine List None recorded. Plan of Care Reminders Provider Appointments None recorded. Lab None recorded. Referral None recorded. Procedures None recorded. Surgeries None recorded. Imaging None recorded. Vitals 02/20/2020 01:00PM Trigger point injections Height 5 ft 6 in 12/28/2019 09:15AM FOLLOW-UP Height Blood Pressure 5 ft 6 in 127/67 mm[Hg] 10/06/2019 10:00AM Telehealth Height Weight BMI 5 ft 6 in 128 lbs 20.7 kg/m2 09/09/2019 09:15AM FOLLOW-UP Height Weight BMI Blood Pressure 5 ft 6 in 128 lbs 20.7 kg/m2 132/72 mm[Hg] 07/15/2019 11:30AM FOLLOW-UP Height Blood Pressure 5 ft 6 in 142/62 mm[Hg] 03/17/2019 08:00AM FOLLOW-UP Height Blood Pressure 5 ft 6 in 151/77 mm[Hg] 10/08/2018 08:15AM FOLLOW-UP Height Weight BMI Blood Pressure 5 ft 6 in 128 lbs 20.7 kg/m2 150/74 mm[Hg] 09/08/2018 09:00AM FOLLOW-UP Height Weight BMI Blood Pressure 5 ft 6 in 128 lbs 20.7 kg/m2 87/53 mm[Hg] 08/11/2018 08:45AM FOLLOW-UP Height Weight BMI Blood Pressure 5 ft 6 in 128 lbs 20.7 kg/m2 140/71 mm[Hg] 07/19/2018 01:00PM Trigger point injections Height Blood Pressure 5 ft 6 in 154/64 mm[Hg] 06/11/2018 09:15AM FOLLOW-UP Height Blood Pressure 5 ft 6 in 132/67 mm[Hg] 04/29/2018 03:00PM FOLLOW-UP Height Weight BMI Blood Pressure 5 ft 6 in 128 lbs 20.7 kg/m2 159/73 mm[Hg] 03/03/2018 09:30AM FOLLOW-UP Blood Pressure 140/73 mm[Hg]
--- OUTSIDE RECORDS SUMMARY | 2020-03-14 15:10 | CCD | Continuity of Care Document ---
Author Author Dora JASON M.D. Organization Unknown Address [address] [place] [phone] Phone [phone] Care Team Providers Care X Ray Control Equipment Repairer Name Role Phone Geena Hogan [employer] [phone] Problems Active Problems Provider Date Syncope and [...] artery occlusion Carmelita Jason M.D. Onset: 03/07/2020 Isolated seizures Carmelita Jason M.D. Onset: 03/07/2020 Social History [...] Topiramate 100mg Tablets 1 by mouth bid. 60tashilpa Jason M.D. 01/13/2017 Gabapentin 300mg Capsules 1 [...] lb BMI (Body Mass Index) 19.0 kg/m2 [place] Body Weight 130 lb 09/05/2014 8:16am BP Systolic 115 mmHg BP Diastolic 70 mmHg Heart Rate 74 /min Respiratory Rate 16 /min Height 66 inches 5'6" Weight 118.00 lb BMI (Body Mass Index) 19.0 kg/m2 [place] Body Weight 130 lb Results Description No Information Available Procedures Date Code Description Status 02/22/2020 7 Balance Forward Completed Medical Devices Description No Information Available Encounters Type Date Location Provider Dx Diagnosis Office Visit 03/07/2020 9:00a Main office - [place] Angelina Lilly G43.009 Migraine w/o aura, not [...] 11:30 am - Carmelita Jason M.D. at [facility] * 03/28/2020 1:15 pm - Ans/[facility] at [facility] Functional Status Description No Information Available Mental Status Description No Information Available Referrals Description No Information Available
--- OUTSIDE RECORDS SUMMARY | 2020-03-14 15:11 | CCD | Continuity of Care Document ---
Author Author Dora SALCIDO Organization Unknown Address [address] [facility] [address] [place] [address] Phone [phone] Care Team Providers Care Health Information Specialist Name Role Phone Jennifer Alvarenga M.D. AUTM [phone] Geena Hogan AUTM [phone] Problems Active Problems Provider Date Langerhans cell histiocytosis of lung Alin Veras D.O. On set: 03/10/2017 Panacinar emphysema Alin Veras D.O. Onset: 03/10/2017 Nicotine dependence, cigarettes, with other nicotine-i nduced disorders Alin Veras D.O. Onset: 03/10/2017 Allergic rhinitis Alin Veras D.O. 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 Onset: 03/02/2017 Chronic venous hypertension (idiopathic) with other complications of bilateral lower extremity Chris Felix M.D. Onset: 03/02/2017 Atherosclerosis of aorta Chris Felix M.D. Onset: 03/02 Cannabis abuse, uncomplicated Chirs Felix M.D. Onset: 03/02/2017 Carotid artery occlusion Chris Felix M.D. Onset: 03/02 Pain in right lower limb Chris eFlix M.D. Onset: 03/02 Pain in left lower limb Chris Felix M.D. Onset: 2017 Cough FLORIDALMA Traylor Onset: 05/13/2017 Difficulty breathing FLORIDALMA Traylor Onset: 05/13/2017 Chronic obstructive pulmonary disease with (acute) exa cerbation FLORIDALMA Traylor Onset: 05/26/2017 Ex-smoker FLORIDALMA Traylor Onset: 11/27/2017 Tobacco user FLORIDALMA Traylor Onset: 06/10/2018 Other nonspecific abnormal finding of lung field FLORIDALMA Montelongo Onset: 02/22/2019 Social History Type Date Description Comments Sex Unknown Cigarette Use Pack Years - 48 ETOH Use Denies alcohol use Tobacco Use Start: 02/16/70 Patient is a current smoker, smo kes every day 1 PPd Recreational Drug Use Current Drug User [facility], former use of cocaine and crack Tobacco Use Start: Unknown Report Cessation Counseling Was Provided Smoking Status Reviewed: 01/30/20 Patient is a current smoker, smokes every day 1 PPd Allergies, Adverse Reactions, Alerts Active Allergies Reaction Severity Comments Date NKDA 03/25/2018 Bee Sting 03/02/2017 Medications Active Medications SIG Qnty Indications Ordering Provide r Date Anoro Ellipta 62.5-25mcg/Inh Aeros ol 1 puff every day 60units J43.1 Joe DuvalO. 06/10/2018 Arnuity Ellipta 200mcg/Act Aerosol 1 puff every day 30units J43.1 Alin Veras D.O. 03/03/2018 Proair HFA 108(90Base) mcg/Act Aer osol 2 puffs four times a day as needed 8.500gm Nataly Duval.O . 04/28/2017 Gabapentin 400mg Capsules 1 cap by mouth three times a day as needed Unknown Topiramate 100mg Tablets 1 tab by mouth 2 X every day Unknown Paroxetine HCL 30mg Tablets 1 tab by mouth every day Unknown Atorvastatin Calcium 80mg Tablets 1 tab by mouth every day Unknown Clopidogrel Bisulfate 75mg Tablets 1 tab by mouth every day---Dr. Hogan, stroke hx Unkn own Aspirin 81mg Tablets DR 1 tab by mouth every day Unknown Ipratropium [place]/Albuterol Sulfate 0.5-2.5(3)mg/3ML Solution 1 vial via neb four times a day as needed 360ml Joe DuvalO. Ezetimibe 10mg Tablets by mouth every day Unknown Immunizations CPT Code Status Date Vaccine Lot # [id number] Given 09/03/2018 Prevnar 13 [id number] Given 11/27/2017 Influenza Virus Vaccine, Quadrivalent, Slit Virus, Im Use Vital Signs Date Vital Result Comment 01/30/2020 1:27pm BP Systolic 150 mmHg BP Diastolic 78 mmHg Heart Rate 63 /min O2 % BldC Oximetry 96 % Height 66 inches 5'6" Weight 117.00 lb BMI (Body Mass Index) 18.9 kg/m2 [place] Body Weight 130 lb Weight 53.071 kg BSA (Body Surface Area) 1.59 m2 09/28/2019 1:46pm BP Systolic 144 mmHg BP Diastolic 78 mmHg Heart Rate 77 /min O2 % BldC Oximetry 98 % Body Temperature 97.5 F Height 66 inches 5'6" Weight 122.38 lb BMI (Body Mass Index) 19.7 kg/m2 [place] Body Weight 130 lb Weight 55.509 kg BSA (Body Surface Area) 1.62 m2 Results Test Acquired Date Facility Test Result H/L Range Note FVL/Regis 01/30/2020 [facility] PDFReport SEE IMAGE FVC-Pred 3.53 L FVC-Pre 2.32 L FVC-%Pred-Pre 65 L FVC-LLN 2.79 L Fev1-Pred 2.72 L Fev1-Pre 1.17 L Fev1-%Pred-Pre 43 L Fev1-LLN 2.10 L Fev6-Pred 3.40 L Fev6-Pre 2.27 L Fev6-%Pred-Pre 66 L Fev6-LLN 2.68 L Mfw4uip-Knak 78 % Qsj0njy-Vjs 50 % Ses6lqf-%Pred-Pre 64 % Loa6ega-XYR 68 % Ukn4lbm-Bwrc 96 % Xvc9pga-Ihn 98 % Ccm8ctn-%Pred-Pre 101 % FEFMax-Pred 6.55 L/E/sec FEFMax-Pre 2.07 L/E/sec FEFMax-%Pred-Pre 31 L/E/sec FEFMax-LLN 4.73 L/E/sec Trs5369-Czhn 2.42 L/E/sec Mxj6867-Wfj 0.51 L/E/sec Ejg4161-%Pred-Pre 21 L/E/sec Bjx8117-YOL 1.10 L/E/sec ExpTime-Pre 6.78 sec Vcm2sob4-Toeb 81 % Mgs4hsu2-Tvg 52 % Gxl0rvm2-%Pred-Pre 64 % Ndp1lug2-CSF 72 % Procedures Date Code Description Status 09/28/2019 62836 Spirometry Completed Medical Devices Description No Information Available Encounters Type Date Location Provider Dx Diagnosis Office Visit 01/30/2020 2:00p [facility] Pulmonary/Thoracic FLORIDALMA Traylor J43.1 Panlobular emphysema F17.218 Nicotine dependence, cigaret mark, w oth disorders Office Visit 09/28/2019 2:00p [facility] Pulmonary/Thoracic FLORIDALMA Traylor J43.1 Panlobular emphysema F17.218 Nicotine dependence, cigaret mark, w oth disorders Assessments Date Code Description Provider 01/30/2020 J43.1 Panlobular emphysema FLORIDALMA Montelongo 01/30/2020 F17.218 Nicotine dependence, cigarettes, with other nicotine-induced disorders FLORIDALMA Traylor 09/28/2019 J43.1 Panlobular emphysema FLORIDALMA Montelongo 09/28/2019 F17.218 Nicotine dependence, cigarettes, with other nicotine-induced disorders FLORIDALMA Traylor Plan of Treatment Future Appointment(s):* 05/30/2020 9:30 am - FLORIDALMA Traylor at [facility] Pulmonary/Thoracic 01/30/2020 - FLORIDALMA Traylor* J43.1 Panlobular emphysema * F17.218 Nicotine dependence, cigarettes, with other nicotine-induced disorders * * New Labs:* FVL/[place], Scheduled: 05/30/20 * Follow up:* Lung Ca Screening Chest CT in April 2020 with Follow up after the low dose lung cancer screening CT in April 2020, with regis at [facility]. Functional Status Description No Information Available Mental Status Description No Information Available Referrals Description No Information Available
--- OUTSIDE RECORDS SUMMARY | 2020-03-14 15:11 | CCD ---
Author Organization Unknown Address [address] [place] [address] Phone [phone] Care Team Providers Care Stove Refinisher Name Role Phone [facility] ([facility]) 3 [phone] Allergies Code Code System Name Reaction Severity [...] spray Completed 01/13/2018 ipratropium/ kaelyn albuter Completed lidocaine 5 % topical patch Completed 12/17 [...] 08/11/2018 MRI, Cervical Spine, W/o Contrast [facility] [address] [address] (Work Place) Results Lab Results Date Name Specimen Result Interpretation Description Value Range Status Address 12/30/2019 [facility] Pdf Report NOS No observation recorded. [facility] Covid: [address] [facility], [place] 12/30/2019 COVID-19 RNA (SARS-CoV-2), QL, automatic maintainer-PCR, Respirat ory Specimen NOS Normal Sars-cov-2 negative negative Final [facility] Cov[facility]: [address], [place] 12/10/2019 [facility] Pdf Report NOS No observation recorded. [facility]: [address], [place] 12/10/2019 COVID-19 RNA (SARS-CoV-2), QL, automatic maintainer-PCR, Respirat ory Specimen NOS Normal Sars-cov-2 negative negative Final [facility]: [address], [place] 08/29/2019 COVID-19 RNA (SARS-CoV-2), QL, automatic maintainer-PCR, Respiratory Specim en No observation recorded. Past Encounters 01/25/2020 Degeneration of Lumbar Intervertebral Disc; Degeneration [...] Fracture of Thoracic Vertebra Ely Mcmullen NP: [id number] [address], [place] [address], Ph. 01/05/2020 Thoracic Radiculopathy; Degeneration of Thoracic [...] of Cervical Intervertebral Disc Duy Valente MD: 6[address]40 [facility], [facility] [place] [address], Ph. 12/30/2019 Pre-surgery Testing; Viral Screening Duy Valente MD: [address] [address], [facility] [place] [address], Ph. [phone] 12/28/2019 Degeneration of Lumbar Intervertebral Disc; Degeneration [...] Fracture of Thoracic Vertebra Ely Mcmullen NP: [address] [address], [facility] [place] [address], Ph. 12/15/2019 Lumbosacral Spondylosis without Myelopathy; Spondylosis [...] Lumbar Region; Myofascial Pain Duy Valente MD: [address] [address], [facility] [place] [address], Ph. 12/14/2019 Lumbosacral Spondylosis without Myelopathy; Spondylosis [...] Lumbar Region; Myofascial Pain Duy Valente MD: [address] [address], [facility] [place] [address], Ph. 12/09/2019 Pre-surgery Testing; Viral Screening Duy Valente MD: [address] [address], [facility] [place] [address], Ph. [phone] 11/22/2019 Degeneration of Lumbar Intervertebral Disc; Degeneration [...] of Cervical Intervertebral Disc Ely Mcmullen NP: [address] [place] [address], Ph. 10/18/2019 Degeneration of Lumbar Intervertebral Disc; [...] of Cervical Intervertebral Disc Duy Valente MD: [address] [address], [facility] [place] [address], Ph. 10/06/2019 Degeneration of Lumbar Intervertebral Disc; [...] without Myelopathy; Degeneration of Cervical Intervertebral Disc Elyrachael Jones Benedict DIRECTOR EHS: [address] [address], Ph. 09/20/2019 Degeneration of Lumbar Intervertebral Disc; [...] of Cervical Intervertebral Disc Duy Valente MD: [address] [address], Ph. 09/09/2019 Degeneration of Lumbar Intervertebral Disc; [...] Degeneration of Cervical Intervertebral Disc Ely Mcmullen DIRECTOR EHS: [address] [address], Ph. 09/01/2019 Lumbosacral Spondylosis without Myelopathy; Spondylosis [...] of Cervical Intervertebral Disc Duy Valente MD: [address] [address], Ph. 08/29/2019 Pre-surgery Testing; Viral Screening Duy Valente MD: [address] [address], Ph. [phone] 08/16/2019 Degeneration of Lumbar Intervertebral Disc; Degeneration [...] of Cervical Intervertebral Disc Ely Mcmullen NP: [address] [address], Ph. 07/15/2019 Degeneration of Lumbar Intervertebral Disc; [...] of Cervical Intervertebral Disc Ely Mcmullen NP: [address] [address], Ph. 07/08/2019 Degeneration of Lumbar Intervertebral Disc; [...] Degeneration of Cervical Intervertebral Disc Ely Mcmullen DIRECTOR EHS: [address] [address], Ph. 03/29/2019 Myofascial Pain; Degeneration of Lumbar [...] of Cervical Intervertebral Disc Duy Valente MD: [address] [address], Ph. 03/17/2019 Degeneration of Lumbar Intervertebral Disc; [...] of Cervical Intervertebral Disc Ely Mcmullen NP: [address] [address], Ph. 01/31/2019 Lumbosacral Spondylosis without Myelopathy; Spondylosis [...] Lumbar Region; Myofascial Pain Duy Valente MD: [address] [address], Ph. 11/29/2018 Lumbosacral Spondylosis without Myelopathy; Spondylosis [...] Lumbar Region; Myofascial Pain Duy Valente MD: [address] [address], [place] [address], Ph. 11/11/2018 Cervical Radiculopathy; Displacement of Cervical [...] Lumbar Region; Myofascial Pain Duy Valente MD: [address] [address], [place] [address], Ph. 10/27/2018 Lumbosacral Spondylosis without Myelopathy; Spondylosis [...] of Cervical Intervertebral Disc Duy Valente MD: 03489 [facility], [place] [address], Ph. 10/08/2018 Degeneration of Lumbar Intervertebral Disc; [...] of Cervical Intervertebral Disc Ely Mcmullen NP: [address] [address], Ph. 10/04/2018 Lumbosacral Spondylosis without Myelopathy; Spondylosis [...] of Cervical Intervertebral Disc Duy Valente MD: [address] [address], Ph. 09/20/2018 Cervical Radiculopathy; Displacement of Cervical [...] Lumbar Region; Myofascial Pain Duy Valente MD: [address] [address], Ph. 09/08/2018 Degeneration of Lumbar Intervertebral Disc; [...] Degeneration of Cervical Intervertebral Disc Ely Mcmullen DIRECTOR EHS: [address] [address], [facility] [place] [address], Ph. 08/11/2018 Degeneration of Lumbar Intervertebral Disc; [...] Myelopathy; Degeneration of Cervical Intervertebral Disc Ely Kimhaley Benedict DIRECTOR EHS: [address] [address], Ph. 07/21/2018 Lumbar Radiculopathy; Degeneration of Lumbar Intervertebral Disc; Degeneration of Lumbosacral Intervertebral Disc; Displacement of Lumbar Intervertebral Disc without Myelopathy; Intervertebral Disc Disorder; Spondylosis without Myelopathy; Lumbosacral Spondylosis without Myelopathy; Inflammation of Sacroiliac Joint; Pain in Right Hip Joint; Spinal Stenosis of Lumbar Region; Cervical Spondylosis without Myelopathy; Myofascial Pain Duy Valente MD: [address] [address], Ph. 07/19/2018 Degeneration of Lumbar Intervertebral Disc; Degeneration of Lumbosacral Intervertebral Disc; Displacement of Lumbar Intervertebral Disc without Myelopathy; Intervertebral Disc Disorder; Spondylosis without Myelopathy; Lumbosacral Spondylosis without Myelopathy; Lumbar Radiculopathy; Inflammation of Sacroiliac Joint; Pain in Right Hip Joint; Spinal Stenosis of Lumbar Region; Cervical Spondylosis without Myelopathy; Myofascial Pain Duy Valente MD: [address] [address], Ph. 06/11/2018 Degeneration of Lumbar Intervertebral Disc; Degeneration of Lumbosacral Intervertebral Disc; Displacement of Lumbar Intervertebral Disc without Myelopathy; Intervertebral Disc Disorder; Spondylosis without Myelopathy; Lumbosacral Spondylosis without Myelopathy; Lumbar Radiculopathy; Inflammation of Sacroiliac Joint; Pain in Right Hip Joint; Spinal Stenosis of Lumbar Region; Cervical Spondylosis without Myelopathy; Myofascial Pain Ely Mcmullen DIRECTOR EHS: [address] [address], Ph. 05/21/2018 Degeneration of Lumbar Intervertebral Disc; Degeneration of Lumbosacral Intervertebral Disc; Displacement of Lumbar Intervertebral Disc without Myelopathy; Intervertebral Disc Disorder; Spondylosis without Myelopathy; Lumbosacral Spondylosis without Myelopathy; Lumbar Radiculopathy; Inflammation of Sacroiliac Joint; Pain in Right Hip Joint; Spinal Stenosis of Lumbar Region; Cervical Spondylosis without Myelopathy; Myofascial Pain Duy Valente MD: [address] [address], Ph. 05/07/2018 Degeneration of Lumbar Intervertebral Disc; Degeneration of Lumbosacral Intervertebral Disc; Displacement of Lumbar Intervertebral Disc without Myelopathy; Intervertebral Disc Disorder; Spondylosis without Myelopathy; Lumbosacral Spondylosis without Myelopathy; Lumbar Radiculopathy; Inflammation of Sacroiliac Joint; Pain in Right Hip Joint; Spinal Stenosis of Lumbar Region; Cervical Spondylosis without Myelopathy; Myofascial Pain Duy Valente MD: [address] [address], Ph. 04/29/2018 Degeneration of Lumbar Intervertebral Disc; Degeneration of Lumbosacral Intervertebral Disc; Displacement of Lumbar Intervertebral Disc without Myelopathy; Intervertebral Disc Disorder; Spondylosis without Myelopathy; Lumbosacral Spondylosis without Myelopathy; Lumbar Radiculopathy; Inflammation of Sacroiliac Joint; Pain in Right Hip Joint; Spinal Stenosis of Lumbar Region; Cervical Spondylosis without Myelopathy; Myofascial Pain Ely Mcmullen DIRECTOR EHS: [address] [address], Ph. 04/06/2018 Degeneration of Lumbar Intervertebral Disc; Degeneration of Lumbosacral Intervertebral Disc; Displacement of Lumbar Intervertebral Disc without Myelopathy; Intervertebral Disc Disorder; Spondylosis without Myelopathy; Lumbosacral Spondylosis without Myelopathy; Lumbar Radiculopathy; Inflammation of Sacroiliac Joint; Pain in Right Hip Joint; Spinal Stenosis of Lumbar Region; Cervical Spondylosis without Myelopathy; Myofascial Pain Duy Valente MD: [address] [address], Ph. 03/03/2018 Degeneration of Lumbar Intervertebral Disc; Degeneration of Lumbosacral Intervertebral Disc; Displacement of Lumbar Intervertebral Disc without Myelopathy; Intervertebral Disc Disorder; Spondylosis without Myelopathy; Lumbosacral Spondylosis without Myelopathy; Lumbar Radiculopathy; Inflammation of Sacroiliac Joint; Pain in Right Hip Joint; Spinal Stenosis of Lumbar Region; Cervical Spondylosis without Myelopathy; Myofascial Pain Ely Mcmullen NP: [address] [address], Ph. 01/28/2018 Degeneration of Lumbar Intervertebral Disc; Degeneration of Lumbosacral Intervertebral Disc; Displacement of Lumbar Intervertebral Disc without Myelopathy; Intervertebral Disc Disorder; Spondylosis without Myelopathy; Lumbosacral Spondylosis without Myelopathy; Lumbar Radiculopathy; Inflammation of Sacroiliac Joint; Pain in Right Hip Joint; Spinal Stenosis of Lumbar Region Duy Valente MD: [address] [address], Ph. 01/13/2018 Degeneration of Lumbar Intervertebral Disc; Degeneration of Lumbosacral Intervertebral Disc; Displacement of Lumbar Intervertebral Disc without Myelopathy; Intervertebral Disc Disorder; Spondylosis without Myelopathy; Lumbosacral Spondylosis without Myelopathy; Lumbar Radiculopathy; Inflammation of Sacroiliac Joint; Pain in Right Hip Joint; Spinal Stenosis of Lumbar Region Duy Vaelnte MD: [address] [address], [place] [address], Ph. Social History Tobacco Smoking Status Heavy Tobacco Smoker (1/2 PPD) Vaccine List None recorded. Plan of Care Reminders Provider Appointments None recorded. Lab None recorded. Referral None recorded. Procedures None recorded. Surgeries None recorded. Imaging None recorded. Vitals 12/28/2019 09:15AM FOLLOW-UP Height Blood Pressure 5 [...]
--- OUTSIDE RECORDS SUMMARY | 2020-03-14 15:11 | CCD ---
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 Name Role Phone [facility] ([facility] W[facility]) 3 [phone] Allergies Code Code System Name Reaction Severity [...] BY MOUTH FOUR TIMES A DAY NEEDED Active Not available alprazolam 0.5 mg tabs Completed 09/09/19 20 [...] 0 famotidine 40 mg tablet Completed 12/28/19 fluconazole 100 mg tablet Completed 2017 Fluzone Quad (PF) 60 mcg (15 m cg x 4)/0.5 mL IM suspension INJECT DIRECTED Active Not available gabapentin 300 mg caps Completed 09/09/19 20 gabapentin 400 mg caps Completed 09/09/19 20 gabapentin 100 mg capsule TAKE ONE CAPSULE BY MOUTH TWICE A DAY Active N ot available gabapentin 300 mg capsule TAKE ONE CAPSULE BY MOUTH TWICE A DAY Active N ot available gabapentin 400 mg capsule Active Not av ailable hydroco/apap tab 5-325mg Completed 020 hydrocodone 5 mg-acetaminophen 325 mg tablet Completed [...] 08/11/2018 MRI, Cervical Spine, W/o Contrast [employer] [email or web address] [facility] [address] [id number] (Work Place) Results Lab Results Date Name Specimen Result Interpretation Description Value Range Status Address 12/30/2019 [facility] Pdf Report NOS No observation recorded. [facility] Covid: [address] [facility], [place] 12/30/2019 COVID-19 RNA (SARS-CoV-2), QL, lubricating specialist-PCR, Respirat ory Specimen NOS Normal Sars-cov-2 negative negative Final [facility] Covid: [address], [place] 12/10/2019 [facility] Pdf Report NOS No observation recorded. [facility] Cov[facility]: [address], [place] 12/10/2019 COVID-19 RNA (SARS-CoV-2), QL, lubricating specialist-PCR, Respirat ory Specimen NOS Normal Sars-cov-2 negative negative Final [facility] Covid: [address], [place] 08/29/2019 COVID-19 RNA (SARS-CoV-2), QL, lubricating specialist-PCR, Respiratory Specim en No observation recorded. Past Encounters 01/05/2020 Thoracic Radiculopathy; Degeneration of Thoracic Intervertebral [...] of Cervical Intervertebral Disc Duy Valente MD: [address] [address], [facility] [place] [address], Ph. 12/30/2019 Pre-surgery Testing; Viral Screening Duy Valente MD: 73420 [facility], [facility] [place] [address], Ph. [phone] 12/28/2019 Degeneration of Lumbar Intervertebral Disc; Degeneration [...] Myelopathy; Compression Fracture of Thoracic Vertebra Ely ChingCINDA finch: [address] [address], [facility] [place] [address], Ph. 12/15/2019 Lumbosacral Spondylosis without Myelopathy; Spondylosis [...] Lumbar Region; Myofascial Pain Duy Valente MD: [address] [address], [place] [address], Ph. 12/14/2019 Lumbosacral Spondylosis without Myelopathy; Spondylosis [...] Lumbar Region; Myofascial Pain Duy Valente MD: [address] [address], Ph. 12/09/2019 Pre-surgery Testing; Viral Screening Duy Valente MD: [address] [address], [place] [address], Ph. [phone] 11/22/2019 Degeneration of Lumbar Intervertebral Disc; Degeneration [...] without Myelopathy; Degeneration of Cervical Intervertebral Disc Elyzander Jones Benedict FIXED INCOME DIRECTOR: [address] [address], Ph. 10/18/2019 Degeneration of Lumbar Intervertebral Disc; [...] of Cervical Intervertebral Disc Duy Valente MD: [address] [address], Ph. 10/06/2019 Degeneration of Lumbar Intervertebral Disc; [...] Myelopathy; Degeneration of Cervical Intervertebral Disc Ely Karen Benedict FIXED INCOME DIRECTOR: [address] [address], Ph. 09/20/2019 Degeneration of Lumbar Intervertebral Disc; [...] of Cervical Intervertebral Disc Duy Valente MD: [address] [address], Ph. 09/09/2019 Degeneration of Lumbar Intervertebral Disc; [...] Degeneration of Cervical Intervertebral Disc Ely Mcmullen FIXED INCOME DIRECTOR: [address] [address], Ph. 09/01/2019 Lumbosacral Spondylosis without Myelopathy; Spondylosis [...] of Cervical Intervertebral Disc Duy Valente MD: [address] [address], Ph. 08/29/2019 Pre-surgery Testing; Viral Screening Duy Valente MD: [address] [address], Ph. [phone] 08/16/2019 Degeneration of Lumbar Intervertebral Disc; Degeneration [...] Degeneration of Cervical Intervertebral Disc Ely Mcmullen FIXED INCOME DIRECTOR: [address] [place] [address], Ph. 07/15/2019 Degeneration of Lumbar Intervertebral Disc; [...] Degeneration of Cervical Intervertebral Disc Ely Mcmullen FIXED INCOME DIRECTOR: [address] [address], Ph. 07/08/2019 Degeneration of Lumbar Intervertebral Disc; [...] of Cervical Intervertebral Disc Ely Mcmullen NP: [address] [address], Ph. 03/29/2019 Myofascial Pain; Degeneration of Lumbar [...] of Cervical Intervertebral Disc Duy Valente MD: [address] [address], [place] [address], Ph. 03/17/2019 Degeneration of Lumbar Intervertebral Disc; [...] of Cervical Intervertebral Disc Ely Mcmullen NP: 45865 [facility], [place] [address], Ph. 01/31/2019 Lumbosacral Spondylosis without Myelopathy; Spondylosis [...] Lumbar Region; Myofascial Pain Duy Valente MD: [address] [address], [place] [address], Ph. 11/29/2018 Lumbosacral Spondylosis without Myelopathy; Spondylosis [...] Lumbar Region; Myofascial Pain Duy Valente MD: 48946 [facility], [place] [address], Ph. 11/11/2018 Cervical Radiculopathy; Displacement of Cervical [...] Lumbar Region; Myofascial Pain Duy Valente MD: [address] [address], Ph. 10/27/2018 Lumbosacral Spondylosis without Myelopathy; Spondylosis [...] of Cervical Intervertebral Disc Duy Valente MD: [address] [address], Ph. 10/08/2018 Degeneration of Lumbar Intervertebral Disc; [...] of Cervical Intervertebral Disc Ely Mcmullen NP: [address] [address], Ph. 10/04/2018 Lumbosacral Spondylosis without Myelopathy; Spondylosis [...] of Cervical Intervertebral Disc Duy Valente MD: [address] [address], [place] [address], Ph. 09/20/2018 Cervical Radiculopathy; Displacement of Cervical [...] Lumbar Region; Myofascial Pain Duy Valente MD: [address] [address], Ph. 09/08/2018 Degeneration of Lumbar Intervertebral Disc; [...] of Cervical Intervertebral Disc Ely Mcmullen NP: [address] [address], Ph. 08/11/2018 Degeneration of Lumbar Intervertebral Disc; [...] Degeneration of Cervical Intervertebral Disc Ely Mcmullen FIXED INCOME DIRECTOR: [address] [address], Ph. 07/21/2018 Lumbar Radiculopathy; Degeneration of Lumbar Intervertebral Disc; Degeneration of Lumbosacral Intervertebral Disc; Displacement of Lumbar Intervertebral Disc without Myelopathy; Intervertebral Disc Disorder; Spondylosis without Myelopathy; Lumbosacral Spondylosis without Myelopathy; Inflammation of Sacroiliac Joint; Pain in Right Hip Joint; Spinal Stenosis of Lumbar Region; Cervical Spondylosis without Myelopathy; Myofascial Pain Duy Valente MD: [address] [address], [place] [address], Ph. 07/19/2018 Degeneration of Lumbar Intervertebral Disc; Degeneration of Lumbosacral Intervertebral Disc; Displacement of Lumbar Intervertebral Disc without Myelopathy; Intervertebral Disc Disorder; Spondylosis without Myelopathy; Lumbosacral Spondylosis without Myelopathy; Lumbar Radiculopathy; Inflammation of Sacroiliac Joint; Pain in Right Hip Joint; Spinal Stenosis of Lumbar Region; Cervical Spondylosis without Myelopathy; Myofascial Pain Duy Valente MD: [address] [address], Ph. 06/11/2018 Degeneration of Lumbar Intervertebral Disc; Degeneration of Lumbosacral Intervertebral Disc; Displacement of Lumbar Intervertebral Disc without Myelopathy; Intervertebral Disc Disorder; Spondylosis without Myelopathy; Lumbosacral Spondylosis without Myelopathy; Lumbar Radiculopathy; Inflammation of Sacroiliac Joint; Pain in Right Hip Joint; Spinal Stenosis of Lumbar Region; Cervical Spondylosis without Myelopathy; Myofascial Pain Ely Mcmullen NP: [address] [address], Ph. 05/21/2018 Degeneration of Lumbar Intervertebral Disc; Degeneration of Lumbosacral Intervertebral Disc; Displacement of Lumbar Intervertebral Disc without Myelopathy; Intervertebral Disc Disorder; Spondylosis without Myelopathy; Lumbosacral Spondylosis without Myelopathy; Lumbar Radiculopathy; Inflammation of Sacroiliac Joint; Pain in Right Hip Joint; Spinal Stenosis of Lumbar Region; Cervical Spondylosis without Myelopathy; Myofascial Pain Duy Valente MD: [address] [address], Ph. 05/07/2018 Degeneration of Lumbar Intervertebral Disc; Degeneration of Lumbosacral Intervertebral Disc; Displacement of Lumbar Intervertebral Disc without Myelopathy; Intervertebral Disc Disorder; Spondylosis without Myelopathy; Lumbosacral Spondylosis without Myelopathy; Lumbar Radiculopathy; Inflammation of Sacroiliac Joint; Pain in Right Hip Joint; Spinal Stenosis of Lumbar Region; Cervical Spondylosis without Myelopathy; Myofascial Pain Duy Valente MD: [address] [address], [place] [address], Ph. 04/29/2018 Degeneration of Lumbar Intervertebral Disc; Degeneration of Lumbosacral Intervertebral Disc; Displacement of Lumbar Intervertebral Disc without Myelopathy; Intervertebral Disc Disorder; Spondylosis without Myelopathy; Lumbosacral Spondylosis without Myelopathy; Lumbar Radiculopathy; Inflammation of Sacroiliac Joint; Pain in Right Hip Joint; Spinal Stenosis of Lumbar Region; Cervical Spondylosis without Myelopathy; Myofascial Pain Ely Mcmullen NP: [address] [address], [place] [address], Ph. 04/06/2018 Degeneration of Lumbar Intervertebral Disc; Degeneration of Lumbosacral Intervertebral Disc; Displacement of Lumbar Intervertebral Disc without Myelopathy; Intervertebral Disc Disorder; Spondylosis without Myelopathy; Lumbosacral Spondylosis without Myelopathy; Lumbar Radiculopathy; Inflammation of Sacroiliac Joint; Pain in Right Hip Joint; Spinal Stenosis of Lumbar Region; Cervical Spondylosis without Myelopathy; Myofascial Pain Duy Valente MD: [address] [address], [place] [address], Ph. 03/03/2018 Degeneration of Lumbar Intervertebral Disc; Degeneration of Lumbosacral Intervertebral Disc; Displacement of Lumbar Intervertebral Disc without Myelopathy; Intervertebral Disc Disorder; Spondylosis without Myelopathy; Lumbosacral Spondylosis without Myelopathy; Lumbar Radiculopathy; Inflammation of Sacroiliac Joint; Pain in Right Hip Joint; Spinal Stenosis of Lumbar Region; Cervical Spondylosis without Myelopathy; Myofascial Pain Ely Mcmullen NP: [address] [place] [address], Ph. 01/28/2018 Degeneration of Lumbar Intervertebral Disc; Degeneration of Lumbosacral Intervertebral Disc; Displacement of Lumbar Intervertebral Disc without Myelopathy; Intervertebral Disc Disorder; Spondylosis without Myelopathy; Lumbosacral Spondylosis without Myelopathy; Lumbar Radiculopathy; Inflammation of Sacroiliac Joint; Pain in Right Hip Joint; Spinal Stenosis of Lumbar Region Duy Valente MD: [address] [address], [facility] [place] [address], Ph. 01/13/2018 Degeneration of Lumbar Intervertebral Disc; Degeneration of Lumbosacral Intervertebral Disc; Displacement of Lumbar Intervertebral Disc without Myelopathy; Intervertebral Disc Disorder; Spondylosis without Myelopathy; Lumbosacral Spondylosis without Myelopathy; Lumbar Radiculopathy; Inflammation of Sacroiliac Joint; Pain in Right Hip Joint; Spinal Stenosis of Lumbar Region Duy Valente MD: [address] [address], [facility] [place] [address], Ph. Social History Tobacco Smoking Status Heavy [...]
--- OUTSIDE RECORDS SUMMARY | 2020-03-14 15:11 | CCD ---
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 65 152453 Problem Tobacco use disorder F17.200 Active 291795685 Problem PAD (peripheral artery disease) I73.9 Active 970803586 Problem History of CT (myocardial infarction) I25.2 Ac tive 197245903 Problem Perimenopausal atrophic vaginitis N95.2 Active 653935584 Problem Bilateral hand pain 729.5 Active 34590722 Problem Vaginal bleeding N93.9 Active 661676715 Problem Peripheral neuropathy 356.9 Active 36381095 Problem Epidermoid cyst of skin of chest 706.2 Active 161349947 Problem Osteoporosis 733.00 Active 46440535 Problem 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 65 084216 Problem Cervical facet syndrome M46.92 Active 03669835 6 Problem Stress at home F43.9 Active 926208005 Problem Hyperlipidemia LDL goal <100 272.4 Active 558 75690 Problem 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 Ac tive 845120179 Problem Osteoarthritis 715.90 Active 597303875 Problem Myalgia M79.1 Active 51907134 Problem PAD (peripheral artery disease) 443.9 Active 953926130 Problem Chronic obstructive pulmonary disease, unspecified COPD ty pe J44.9 Active 41394157 Problem History of CT (myocardial infarction) 412 Ac tive 893199076 Problem Cocaine abuse F14.10 Active 97136116 Problem Seizure disorder 345.90 Active 033063111 Problem Stuttering F80.81 Active 76934926 Problem History of CVA (cerebrovascular accident) V12.54 Active 349053599 Problem Frequency-urgency syndrome N31.8 Active 18407 3002 Problem Influenza vaccination declined Z28.21 Active 3 35692996 Problem Hip arthritis M16.10 Active 44931131 Problem Gastroesophageal reflux disease, esophagitis pre sence not specified K21.9 Active 486794870 Problem Other chronic pain G89.29 Active 07039043 Problem Adjustment disorder with mixed anxiety and depressed mood F43.23 Active 892763431 Problem Constipation, unspecified constipation type K59.00 Active 12153879 Problem COPD (chronic obstructive pulmonary disease) 496 Active 57902704 Problem Sacroiliac inflammation M46.1 Active 46346142 Problem DDD (degenerative disc disease), lumbar 722.52 Active 88697495 Problem Degenerative disc disease, lumbar M51.36 Active 05404292 Problem COPD exacerbation J44.1 Active 511619518 Problem Tobacco abuse 305.1 Active 99622987 Problem Seizure disorder G40.909 Active 228303910 Problem COPD with exacerbation J44.1 Active 501537736 ALLERGIES Allergen (clinical drug ingredient) Drug/Non Drug Allergy do cumented on EMR Reaction Allergy Type Onset Date Status varenicline Chantix([facility] Code:[address]-47) depression Drug Allergy Active Wellbutrin Nightmares Drug Allergy Active ENCOUNTERS from 1960 to 2020-01-11 Encounter Location Date Provider Diagnosis [facility] [address] [place] [address] Dec, Geena Hogan IMMUNIZATIONS Vaccine Route Administration Date [...] Education Language: Question Answer Notes Languages spoken: Arabic Catholic: Question Answer Notes Catholic 33 None Sexual Hx: Question Answer Notes [...] Information RESULTS No Results REASON FOR VISIT US MEDICAL (GENERAL) HISTORY Type Description Date Medical History History of CVA (cerebrovascular accident ) Medical History History of CT (myocardial infarction) Medical History Seizure disorder Medical [...] End Date MEDICAID [employer] [address] [place] [id number] [employer]IE [employer]AEZA MEDICARE COMPLETE [employer] [address] [address] [facility] [address] BENNIE [employer]AEZA
--- OUTSIDE RECORDS SUMMARY | 2020-03-14 15:11 | CCD ---
Author Organization Unknown Address [address] [place] [address] Phone [phone] Care Team Providers Care Sample Worker Name Role Phone [facility] 3 [phone] Allergies Code Code System Name Reaction Severity [...] 08/11/2018 MRI, Cervical Spine, W/o Contrast [facility] [address] [id number] (Work Place) Results Lab Results Date Name Specimen Result Interpretation Description Value Range Status Address 12/30/2019 [facility] Pdf Report NOS No observation recorded. [facility]: [address] [facility], [place] 12/30/2019 COVID-19 RNA (SARS-CoV-2), QL, vat skimmer-PCR, Respirat ory Specimen NOS Normal Sars-cov-2 negative negative Final [facility]: [address], [place] 12/10/2019 [facility] Pdf Report NOS No observation recorded. [facility]: [address], [place] 12/10/2019 COVID-19 RNA (SARS-CoV-2), QL, vat skimmer-PCR, Respirat ory Specimen NOS Normal Sars-cov-2 negative negative Final [facility]: [address], [place] 08/29/2019 COVID-19 RNA (SARS-CoV-2), QL, vat skimmer-PCR, Respiratory Specim en No observation recorded. Past [...] of Cervical Intervertebral Disc Duy Valente MD: [address] [address], [place] [address], Ph. 12/30/2019 Pre-surgery Testing; Viral Screening Duy Valente MD: [address] [facility] [address], [place] [address], Ph. [phone] 12/28/2019 Degeneration of Lumbar Intervertebral Disc; Degeneration [...] Fracture of Thoracic Vertebra Ely ChingCINDA finch: [address] [address], [place] [address], Ph. 12/15/2019 Lumbosacral Spondylosis without Myelopathy; Spondylosis [...] Lumbar Region; Myofascial Pain Duy Valente MD: [address] [address], [place] [address], Ph. 12/14/2019 Lumbosacral Spondylosis without Myelopathy; Spondylosis [...] Lumbar Region; Myofascial Pain Duy Valente MD: [address] [address], Ph. 12/09/2019 Pre-surgery Testing; Viral Screening Duy Valente MD: [address] [address], [place] [address], Ph. [phone] 11/22/2019 Degeneration of Lumbar Intervertebral Disc; Degeneration [...] of Cervical Intervertebral Disc Elyzander Jones Benedict [employer]MONIUM NITRATE CRYSTALLIZER: [address] [address], Ph. 10/18/2019 Degeneration of Lumbar Intervertebral Disc; [...] of Cervical Intervertebral Disc Duy Valente MD: [address] [address], Ph. 10/06/2019 Degeneration of Lumbar Intervertebral Disc; [...] of Cervical Intervertebral Disc Ely Karen Benedict AMMONIUM NITRATE CRYSTALLIZER: [address] [address], Ph. 09/20/2019 Degeneration of Lumbar Intervertebral Disc; [...] of Cervical Intervertebral Disc Duy Valente MD: [address] [address], Ph. 09/09/2019 Degeneration of Lumbar Intervertebral Disc; [...] Degeneration of Cervical Intervertebral Disc Ely Mcmullen AMMONIUM NITRATE CRYSTALLIZER: [address] [address], Ph. 09/01/2019 Lumbosacral Spondylosis without Myelopathy; Spondylosis [...] of Cervical Intervertebral Disc Duy Valente MD: [address] [address], Ph. 08/29/2019 Pre-surgery Testing; Viral Screening Dyu Valente MD: [address] [address], Ph. [phone] 08/16/2019 Degeneration of Lumbar Intervertebral Disc; Degeneration [...] Degeneration of Cervical Intervertebral Disc Ely Mcmullen AMMONIUM NITRATE CRYSTALLIZER: [address] [place] [address], Ph. 07/15/2019 Degeneration of Lumbar Intervertebral Disc; [...] Degeneration of Cervical Intervertebral Disc Ely Mcmullen AMMONIUM NITRATE CRYSTALLIZER: [address] [address], Ph. 07/08/2019 Degeneration of Lumbar Intervertebral Disc; [...] of Cervical Intervertebral Disc Ely Mcmullen NP: [address] [address], Ph. 03/29/2019 Myofascial Pain; Degeneration of Lumbar [...] of Cervical Intervertebral Disc Duy Valente MD: [address] [address], [place] [address], Ph. 03/17/2019 Degeneration of Lumbar Intervertebral Disc; [...] of Cervical Intervertebral Disc Ely Mcmullen NP: [address] [facility] [address], [place] [address], Ph. 01/31/2019 Lumbosacral Spondylosis without Myelopathy; Spondylosis [...] Lumbar Region; Myofascial Pain Duy Valente MD: [address] [address], [place] [address], Ph. 11/29/2018 Lumbosacral Spondylosis without Myelopathy; Spondylosis [...] Lumbar Region; Myofascial Pain Duy Valente MD: [address] [facility] [address], [place] [address], Ph. 11/11/2018 Cervical Radiculopathy; Displacement of Cervical [...] Lumbar Region; Myofascial Pain Duy Valente MD: [address] [address], Ph. 10/27/2018 Lumbosacral Spondylosis without Myelopathy; Spondylosis [...] of Cervical Intervertebral Disc Duy Valente MD: [address] [address], Ph. 10/08/2018 Degeneration of Lumbar Intervertebral Disc; [...] of Cervical Intervertebral Disc Ely Mcmullen NP: [address] [address], Ph. 10/04/2018 Lumbosacral Spondylosis without Myelopathy; Spondylosis [...] of Cervical Intervertebral Disc Duy Valente MD: [address] [address], [place] [address], Ph. 09/20/2018 Cervical Radiculopathy; Displacement of Cervical [...] Lumbar Region; Myofascial Pain Duy Valente MD: [address] [address], Ph. 09/08/2018 Degeneration of Lumbar Intervertebral Disc; [...] of Cervical Intervertebral Disc Ely Mcmullen NP: [address] [address], Ph. 08/11/2018 Degeneration of Lumbar Intervertebral Disc; [...] Degeneration of Cervical Intervertebral Disc Ely Mcmullen AMMONIUM NITRATE CRYSTALLIZER: [address] [address], Ph. 07/21/2018 Lumbar Radiculopathy; Degeneration of Lumbar Intervertebral Disc; Degeneration of Lumbosacral Intervertebral Disc; Displacement of Lumbar Intervertebral Disc without Myelopathy; Intervertebral Disc Disorder; Spondylosis without Myelopathy; Lumbosacral Spondylosis without Myelopathy; Inflammation of Sacroiliac Joint; Pain in Right Hip Joint; Spinal Stenosis of Lumbar Region; Cervical Spondylosis without Myelopathy; Myofascial Pain Duy Valente MD: [address] [address], [place] [address], Ph. 07/19/2018 Degeneration of Lumbar Intervertebral Disc; Degeneration of Lumbosacral Intervertebral Disc; Displacement of Lumbar Intervertebral Disc without Myelopathy; Intervertebral Disc Disorder; Spondylosis without Myelopathy; Lumbosacral Spondylosis without Myelopathy; Lumbar Radiculopathy; Inflammation of Sacroiliac Joint; Pain in Right Hip Joint; Spinal Stenosis of Lumbar Region; Cervical Spondylosis without Myelopathy; Myofascial Pain Duy Valente MD: [address] [address], Ph. 06/11/2018 Degeneration of Lumbar Intervertebral Disc; Degeneration of Lumbosacral Intervertebral Disc; Displacement of Lumbar Intervertebral Disc without Myelopathy; Intervertebral Disc Disorder; Spondylosis without Myelopathy; Lumbosacral Spondylosis without Myelopathy; Lumbar Radiculopathy; Inflammation of Sacroiliac Joint; Pain in Right Hip Joint; Spinal Stenosis of Lumbar Region; Cervical Spondylosis without Myelopathy; Myofascial Pain Ely Mcmullen NP: [address] [address], Ph. 05/21/2018 Degeneration of Lumbar Intervertebral Disc; Degeneration of Lumbosacral Intervertebral Disc; Displacement of Lumbar Intervertebral Disc without Myelopathy; Intervertebral Disc Disorder; Spondylosis without Myelopathy; Lumbosacral Spondylosis without Myelopathy; Lumbar Radiculopathy; Inflammation of Sacroiliac Joint; Pain in Right Hip Joint; Spinal Stenosis of Lumbar Region; Cervical Spondylosis without Myelopathy; Myofascial Pain Duy Valente MD: [address] [address], Ph. 05/07/2018 Degeneration of Lumbar Intervertebral Disc; Degeneration of Lumbosacral Intervertebral Disc; Displacement of Lumbar Intervertebral Disc without Myelopathy; Intervertebral Disc Disorder; Spondylosis without Myelopathy; Lumbosacral Spondylosis without Myelopathy; Lumbar Radiculopathy; Inflammation of Sacroiliac Joint; Pain in Right Hip Joint; Spinal Stenosis of Lumbar Region; Cervical Spondylosis without Myelopathy; Myofascial Pain Duy Valente MD: [address] [address], [place] [address], Ph. 04/29/2018 Degeneration of Lumbar Intervertebral Disc; Degeneration of Lumbosacral Intervertebral Disc; Displacement of Lumbar Intervertebral Disc without Myelopathy; Intervertebral Disc Disorder; Spondylosis without Myelopathy; Lumbosacral Spondylosis without Myelopathy; Lumbar Radiculopathy; Inflammation of Sacroiliac Joint; Pain in Right Hip Joint; Spinal Stenosis of Lumbar Region; Cervical Spondylosis without Myelopathy; Myofascial Pain Ely Mcmullen NP: [address] [address], [place] [address], Ph. 04/06/2018 Degeneration of Lumbar Intervertebral Disc; Degeneration of Lumbosacral Intervertebral Disc; Displacement of Lumbar Intervertebral Disc without Myelopathy; Intervertebral Disc Disorder; Spondylosis without Myelopathy; Lumbosacral Spondylosis without Myelopathy; Lumbar Radiculopathy; Inflammation of Sacroiliac Joint; Pain in Right Hip Joint; Spinal Stenosis of Lumbar Region; Cervical Spondylosis without Myelopathy; Myofascial Pain Duy Valente MD: [address] [address], [place] [address], Ph. 03/03/2018 Degeneration of Lumbar Intervertebral Disc; Degeneration of Lumbosacral Intervertebral Disc; Displacement of Lumbar Intervertebral Disc without Myelopathy; Intervertebral Disc Disorder; Spondylosis without Myelopathy; Lumbosacral Spondylosis without Myelopathy; Lumbar Radiculopathy; Inflammation of Sacroiliac Joint; Pain in Right Hip Joint; Spinal Stenosis of Lumbar Region; Cervical Spondylosis without Myelopathy; Myofascial Pain Ely Mcmullen NP: [address] [place] [address], Ph. 01/28/2018 Degeneration of Lumbar Intervertebral Disc; Degeneration of Lumbosacral Intervertebral Disc; Displacement of Lumbar Intervertebral Disc without Myelopathy; Intervertebral Disc Disorder; Spondylosis without Myelopathy; Lumbosacral Spondylosis without Myelopathy; Lumbar Radiculopathy; Inflammation of Sacroiliac Joint; Pain in Right Hip Joint; Spinal Stenosis of Lumbar Region Duy Valente MD: [address] [address], [place] [address], Ph. 01/13/2018 Degeneration of Lumbar Intervertebral Disc; Degeneration of Lumbosacral Intervertebral Disc; Displacement of Lumbar Intervertebral Disc without Myelopathy; Intervertebral Disc Disorder; Spondylosis without Myelopathy; Lumbosacral Spondylosis without Myelopathy; Lumbar Radiculopathy; Inflammation of Sacroiliac Joint; Pain in Right Hip Joint; Spinal Stenosis of Lumbar Region Duy Valente MD: [address] [address], [place] [address], Ph. Social History Tobacco Smoking Status Heavy [...]
--- OUTSIDE RECORDS SUMMARY | 2020-03-14 15:11 | CCD ---
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 65 796259 Problem Tobacco use disorder F17.200 Active 676735645 Problem PAD (peripheral artery disease) I73.9 Active 382585547 Problem History of [place] (myocardial infarction) I25.2 Ac tive 859035110 Problem Perimenopausal atrophic vaginitis N95.2 Active 028713113 Problem Bilateral hand pain 729.5 Active 34128154 Problem Vaginal bleeding N93.9 Active 254699048 Problem Peripheral neuropathy 356.9 Active 27777802 Problem Epidermoid cyst of skin of chest 706.2 Active 148787268 Problem Osteoporosis 733.00 Active 84399193 Problem 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 65 110985 Problem Cervical facet syndrome M46.92 Active 97568707 6 Problem Stress at home F43.9 Active 367484806 Problem Hyperlipidemia LDL goal <100 272.4 Active 558 35326 Problem 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 Ac tive 890094923 Problem Osteoarthritis 715.90 Active 235561462 Problem Myalgia M79.1 Active 77035447 Problem PAD (peripheral artery disease) 443.9 Active 621905070 Problem Chronic obstructive pulmonary disease, unspecified COPD ty pe J44.9 Active 63440299 Problem History of [place] (myocardial infarction) 412 Ac tive 811120689 Problem Cocaine abuse F14.10 Active 44702419 Problem Seizure disorder 345.90 Active 276663372 Problem Stuttering F80.81 Active 55492413 Problem History of CVA (cerebrovascular accident) V12.54 Active 549999356 Problem Frequency-urgency syndrome N31.8 Active 47893 3002 Problem Influenza vaccination declined Z28.21 Active 3 52073968 Problem Hip arthritis M16.10 Active 45354000 Problem Gastroesophageal reflux disease, esophagitis pre sence not specified K21.9 Active 501225542 Problem Other chronic pain G89.29 Active 11077932 Problem Adjustment disorder with mixed anxiety and depressed mood F43.23 Active 239796464 Problem Constipation, unspecified constipation type K59.00 Active 65446246 Problem COPD (chronic obstructive pulmonary disease) 496 Active 58367990 Problem Sacroiliac inflammation M46.1 Active 03531334 Problem DDD (degenerative disc disease), lumbar 722.52 Active 80164123 Problem Degenerative disc disease, lumbar M51.36 Active 80325894 Problem COPD exacerbation J44.1 Active 623572480 Problem Tobacco abuse 305.1 Active 36896190 Problem Seizure disorder G40.909 Active 556491000 Problem COPD with exacerbation J44.1 Active 510243521 ALLERGIES Allergen (clinical drug ingredient) Drug/Non Drug Allergy do cumented on EMR Reaction Allergy Type Onset Date Status varenicline Chantix([facility] Code:[address]-62) depression Drug Allergy Active Wellbutrin Nightmares Drug Allergy Active ENCOUNTERS from 1960 to 2020-01-03 Encounter Location Date Provider Diagnosis [facility] [address] [place] [address] Dec, 2019 Geena Hogan Generalized abdominal pain R10.84 IMMUNIZATIONS Vaccine Route Administration Date Status Pneumovax [...] Education Language: Question Answer Notes Languages spoken: Sami Anabaptist: Question Answer Notes Anabaptist 33 None Sexual Hx: Question Answer Notes [...] Information RESULTS No Results REASON FOR VISIT No Information MEDICAL (GENERAL) HISTORY Type Description Date Medical History History of CVA (cerebrovascular accident ) Medical History History of [place] (myocardial infarction) Medical History Seizure disorder Medical [...] Notes Treatment Notes Treatm ent Clinical Notes Dec, Generalized abdominal pain (ICD-10 - R10.84) PLAN OF TREATMENT Medication Medication Name Sig [...] Orally Once a day for 90 days Future Test Test Name Order Date US ABDOMINAL [id number] Insurance Providers Payer Name Payer Address Payer Phone Insured Name Patient Relati onship to Insured Coverage Start Date Coverage End Date MEDICAID [employer] [address] [facility] [id number] BENNIE BAEZA MEDICARE COMPLETE [employer] [address] [address] [facility] [phone] [employer] B[employer]
--- OUTSIDE RECORDS SUMMARY | 2020-03-14 15:12 | CCD ---
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 Active 65 958124 Problem Tobacco use disorder F17.200 Active 357891010 Problem PAD (peripheral artery disease) I73.9 Active 632207934 Problem History of PR (myocardial infarction) I25.2 Ac tive 892893757 Problem Perimenopausal atrophic vaginitis N95.2 Active 957442854 Problem Bilateral hand pain 729.5 Active 42775405 Problem Vaginal bleeding N93.9 Active 983027746 Problem Peripheral neuropathy 356.9 Active 51904798 Problem Epidermoid cyst of skin of chest 706.2 Active 140908340 Problem Osteoporosis 733.00 Active 90396320 Problem 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 65 759216 Problem Cervical facet syndrome M46.92 Active 20454173 6 Problem Stress at home F43.9 Active 607774792 Problem Hyperlipidemia LDL goal <100 272.4 Active 558 72154 Problem 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 Ac tive 962373212 Problem Osteoarthritis 715.90 Active 628196616 Problem Myalgia M79.1 Active 85706400 Problem PAD (peripheral artery disease) 443.9 Active 837201362 Problem Chronic obstructive pulmonary disease, unspecified COPD ty pe J44.9 Active 28590349 Problem History of PR (myocardial infarction) 412 Ac tive 406672652 Problem Cocaine abuse F14.10 Active 72674529 Problem Seizure disorder 345.90 Active 779455254 Problem Stuttering F80.81 Active 44189782 Problem History of CVA (cerebrovascular accident) V12.54 Active 179101601 Problem Frequency-urgency syndrome N31.8 Active 52273 3002 Problem Influenza vaccination declined Z28.21 Active 3 09969560 Problem Hip arthritis M16.10 Active 12674725 Problem Gastroesophageal reflux disease, esophagitis pre sence not specified K21.9 Active 237540671 Problem Other chronic pain G89.29 Active 80527364 Problem Adjustment disorder with mixed anxiety and depressed mood F43.23 Active 813010622 Problem Constipation, unspecified constipation type K59.00 Active 40409401 Problem COPD (chronic obstructive pulmonary disease) 496 Active 79770956 Problem Sacroiliac inflammation M46.1 Active 39623470 Problem DDD (degenerative disc disease), lumbar 722.52 Active 69914251 Problem Degenerative disc disease, lumbar M51.36 Active 16005323 Problem COPD exacerbation J44.1 Active 641066787 Problem Tobacco abuse 305.1 Active 88098357 Problem Seizure disorder G40.909 Active 209946634 Problem COPD with exacerbation J44.1 Active 084523840 ALLERGIES Allergen (clinical drug ingredient) Drug/Non Drug Allergy do cumented on EMR Reaction Allergy Type Onset Date Status varenicline Chantix([facility] Code:[address]-92) depression Drug Allergy Active Wellbutrin Nightmares Drug Allergy Active ENCOUNTERS from 1958 to 2019-12-22 Encounter Location Date Provider Diagnosis [facility] [address] [place] [address] Nov, 2019 Geena Hogan Acute cystitis without hematuria N30.00 ; Muscle spasm of back M62.830 and History of CVA (cerebrovascular accident) Z86.73 IMMUNIZATIONS Vaccine Route Administration Date Status Pneumovax [...] Education Language: Question Answer Notes Languages spoken: Yoruba Hindu: Question Answer Notes Hindu 33 None Sexual Hx: Question Answer Notes [...] REASON FOR REFERRAL No Information VITAL SIGNS Weight 121 lbs Nov, Height 65 in Nov, BMI 20.13 kg/m2 Nov, Heart Rate 69 /min Nov, Respiratory Rate 17 /min Nov, Temperature 97.0 degrees Fahrenheit Nov, Oximetry 97 Nov, Blood pressure systolic 146 mm Hg Nov, Blood pressure diastolic 69 mm Hg Nov, MEDICATIONS Medication SIG (Take, Route, Frequency, Duration) Start Date En d Date Status Clopidogrel Bisulfate 75 MG 1 tablet Orally Once a day for 90 da ys Nov, Active Alprazolam 0.5 MG 1 tablet as needed Orally Twice a day (M DD;2) for 30 Days June, Active Tizanidine HCl [...] Orally Twice a day for 3 days Nov Active Tizanidine HCl 4 MG 2 tablets [...] morning Orally Once a day for 90 day(s ) Active Lidocaine HCl Urethral/Mucosal 2 % as directed Externally qi d for 21 days Apr, Active Aspir-81 81 MG 1 tablet Orally Once a day for 90 days Active PROCEDURES No Information RESULTS Component Value Reference Range Urinalysis, no micro Reviewed date:12/13/2019 08:52:01 Interpretation: Performing Lab:[facility], [place] [address] Spec gravity 1.030 1.002 - 1.035 pH 5 5.0 - 9.0 Leukocyte trace Negative - Nitrate neg Negative - Protein 30 Negative - mg/dl Glucose neg Negative - mg/dl Ketones neg Negative - mg/dl Urobili norm Normal - mg/dl Bilirubin neg Negative - Blood neg Negative - Internal QC Acceptable (Y/N) yes REASON FOR VISIT PAIN ON LEFT SIDE MEDICAL (GENERAL) HISTORY Type Description Date Medical History History of CVA (cerebrovascular accident ) Medical History History of PR (myocardial infarction) Medical History Seizure disorder Medical [...] STATUS No Information ASSESSMENTS Encounter Date Diagnosis Notes Nov, Acute cystitis without hematuria (ICD-10 - N30.00) Nov, History of CVA (cerebrovascular accident ) (ICD-10 - Z86.73) Nov, Muscle spasm of back (ICD-10 - M62.830) PLAN OF TREATMENT Medication Medication Name Sig Start Date Stop Date Tizanidine HCl 4 MG 2 tablets Orally before bedt geetha (not t o exceed 24mg/day) for 5 days Nov, Bactrim DS 800-160 MG 1 tablet Orally Twice a day for 3 days Nov, Lipitor 80 MG 1 tablet Orally Once a day for 90 days Treatment Notes Assessment Notes Clinical Notes Acute cystitis without hematuria UA pos leuks and protein. You have a urinary tract infection. This is an infection of your bladder. Make sure you take all of the antibiotics until they're gone. Increase amount of water you drink over the next couple of days as this will help your body fight off the infection. Will hold on Pyridium as no dysuria at present. Muscle spasm of back Plan increase muscl e relaxer dosage at night to allow for sleep. If non-resolving in 10-14 days, RTC for further evaluation. History of CVA (cerebrovascular accident) refilled today Next Appt Details as directed (reg med review/FU) Reason: Insurance Providers Payer Name Payer Address Payer Phone Insured Name Patient Relati onship to Insured Coverage Start Date Coverage End Date MEDICAID [place] [address] [facility] [address] [employer] [employer] MEDICARE COMPLETE UNITED [employer] [address] [address] [facility] [id number] BENNIE BAEZA
--- OUTSIDE RECORDS SUMMARY | 2020-03-14 15:12 | CCD ---
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 Active 65 738167 Problem Tobacco use disorder F17.200 Active 997677998 Problem PAD (peripheral artery disease) I73.9 Active 564073550 Problem History of GA (myocardial infarction) I25.2 Ac tive 755732696 Problem Perimenopausal atrophic vaginitis N95.2 Active 913528515 Problem Bilateral hand pain 729.5 Active 62348145 Problem Vaginal bleeding N93.9 Active 844539324 Problem Peripheral neuropathy 356.9 Active 35998971 Problem Epidermoid cyst of skin of chest 706.2 Active 514954572 Problem Osteoporosis 733.00 Active 79353922 Problem 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 65 443865 Problem Cervical facet syndrome M46.92 Active 42327787 6 Problem Stress at home F43.9 Active 355692481 Problem Hyperlipidemia LDL goal <100 272.4 Active 558 54400 Problem 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 Ac tive 706129969 Problem Osteoarthritis 715.90 Active 531026727 Problem Myalgia M79.1 Active 01701927 Problem PAD (peripheral artery disease) 443.9 Active 160109611 Problem Chronic obstructive pulmonary disease, unspecified COPD ty pe J44.9 Active 09314939 Problem History of GA (myocardial infarction) 412 Ac tive 356352685 Problem Cocaine abuse F14.10 Active 01681793 Problem Seizure disorder 345.90 Active 111413427 Problem Stuttering F80.81 Active 91403333 Problem History of CVA (cerebrovascular accident) V12.54 Active 408634885 Problem Frequency-urgency syndrome N31.8 Active 61262 3002 Problem Influenza vaccination declined Z28.21 Active 3 34665243 Problem Hip arthritis M16.10 Active 55191812 Problem Gastroesophageal reflux disease, esophagitis pre sence not specified K21.9 Active 217156225 Problem Other chronic pain G89.29 Active 16655000 Problem Adjustment disorder with mixed anxiety and depressed mood F43.23 Active 280639178 Problem Constipation, unspecified constipation type K59.00 Active 72968744 Problem COPD (chronic obstructive pulmonary disease) 496 Active 23584313 Problem Sacroiliac inflammation M46.1 Active 38480040 Problem DDD (degenerative disc disease), lumbar 722.52 Active 72355605 Problem Degenerative disc disease, lumbar M51.36 Active 00836154 Problem COPD exacerbation J44.1 Active 992757077 Problem Tobacco abuse 305.1 Active 64910756 Problem Seizure disorder G40.909 Active 873651314 Problem COPD with exacerbation J44.1 Active 744106168 ALLERGIES Allergen (clinical drug ingredient) Drug/Non Drug Allergy do cumented on EMR Reaction Allergy Type Onset Date Status varenicline Chantix([facility] Code:[address]-02) depression Drug Allergy Active Wellbutrin Nightmares Drug Allergy Active ENCOUNTERS from 1958 to 2019-12-29 Encounter Location Date Provider Diagnosis [facility] [address] [place] [address] Dec, Geena Hogan IMMUNIZATIONS Vaccine Route [...] Education Language: Question Answer Notes Languages spoken: Upper Sorbian Sikh: Question Answer Notes Sikh 33 None Sexual Hx: Question Answer Notes [...] Duration) Start Date En d Date Status Ciprofloxacin HCl 500 MG 1 [...] Information RESULTS No Results REASON FOR VISIT Medications MEDICAL (GENERAL) HISTORY Type Description Date Medical History History of CVA (cerebrovascular accident ) Medical History History of GA (myocardial infarction) Medical History Seizure disorder Medical [...] Start Date Coverage End Date MEDICARE COMPLETE UNITED HEALTHCARE [address] [address] [facility] [id number] [employer] MEDICAID [employer] [address] [facility] [id number] [employer] [employer]
--- OUTSIDE RECORDS SUMMARY | 2020-03-14 15:12 | CCD ---
Author Organization Unknown Address [address] [place] [address] Phone [phone] Care Team Providers Care Chimney Construction Supervisor Name Role Phone [facility] ([facility] WOM[facility]) 3 [phone] Allergies Code Code System Name Reaction Severity [...] DAY NEEDED MAXIMUM DAILY DOSE TWO TABLETS Active Not available Anoro Ellipta 62.5 mcg-25 mcg/actuation powder for inhalation INHALE ONE PUFF BY MOUTH EVERY DAY Active Not available Arnuity Ellipta 200 mcg/actuation powder for inhalation Active Not available atorvastatin 40 mg tablet Completed 2017 atorvastatin [...] cefuroxime axetil 500 mg tablet Completed 04/29/2018 clopidogrel 75 mg tabs Completed 09/09/19 20 clopidogrel 75 mg tablet Active Not ulysses ilable cyclobenzaprine 10 mg tablet TAKE ONE TABLET BY MOUTH EVERY DAY AT BEDTIME Active Not available doxycycline hyclate 100 mg capsule Completed 01/13/2018 doxycycline monohydrate 100 mg caps Completed 09/09/2019 doxycycline monohydrate 100 mg capsule Active Not available duloxetine 30 mg capsule,delayed release Completed 01/13/2018 estradiol 0.01% (0.1 mg/gram) vaginal cream Completed 01/13/2018 ezetimibe 10 mg tabs Completed 09/09/2019 ezetimibe 10 mg tablet Active Not avail able famotidine 40 mg tabs Completed 0 famotidine 40 mg tablet Active Not avai lable fluconazole 100 mg tablet Completed 2017 Fluzone [...] nebulization soln twice a day as needed Active Not available ipratropium bromide 0.03 % nasal spray Completed 01/13/2018 ipratropium/ kaelyn albuter Completed 020 lidocaine 5 % topical patch Active Not available lidocaine HCl 2 % mucosal jelly Completed 09/09/2019 lidocaine hcl jelly 2 % gel Completed methylprednisolone 4 mg tablets in a dose pack Active Not available methylprednisolone dose pack 4 mg tbpk Completed 09/09/2019 naproxen 375 mg tablet Completed 8 nitrofurantoin monohydrate/macrocrystals 100 mg capsule Active Not available nortriptyline 25 mg capsule TAKE ONE CAPSULE BY MOUTH EVERY DAY Completed nystatin 100,000 unit/mL oral suspension Completed 01/13/2018 omeprazole 20 mg cpdr Completed 0 omeprazole 20 mg capsule,delayed release TAKE ONE CAPSULE BY MOUTH EVERY DAY 30 MINUTES BEFORE MORNING MEAL NEEDED Active Not available oxycodone-acetaminophen 5 mg-325 mg tablet Completed 03/03/2018 pantoprazole 20 mg tablet,delayed release Active Not available pantoprazole sodium 20 mg tbec Completed 09/09/2019 paroxetine 30 mg tablet Active Not avai lable paroxetine hcl 30 mg tabs Completed 09/08 phenazopyridine 200 mg tablet TAKE ONE TABLET BY MOUTH THREE TIMES A DAY AFTER MEALS Active Not available Pneumovax-23 25 mcg/0.5 mL injection kaelyn ution INJECT DIRECTED Active Not available prednisone 20 mg tabs Active Not avail able prednisone 10 mg tablet Completed 01/14/20 18 prednisone 20 mg tablet Completed 09/09/19 20 ranitidine 150 mg tablet Completed 020 sulfamethoxazole 800 mg-trimethoprim 160 mg tablet Active Not available tizanidine 4 mg tablet Active Not avail able tizanidine hydrochloride 4 mg tabs Completed 09/09/2019 [...] 08/11/2018 MRI, Cervical Spine, W/o Contrast [facility] [address] [place] [address] (Work Place) Results Lab Results Date Name Specimen Result Interpretation Description Value Range Status Address 12/10/2019 [facility] Pdf Report NOS No observation recorded. [facility] Cov[facility]: [address] [facility], [place] 12/10/2019 COVID-19 RNA (SARS-CoV-2), QL, insulation professional-PCR, Respirat ory Specimen NOS Normal Sars-cov-2 negative negative Final [facility]: [address] [facility] [place] 08/29/2019 COVID-19 RNA (SARS-CoV-2), QL, insulation professional-PCR, Respiratory Specim en No observation recorded. Past Encounters 12/15/2019 Lumbosacral Spondylosis without Myelopathy; Spondylosis without [...] Lumbar Region; Myofascial Pain Duy Valente MD: [address] [address], [place] [address], Ph. 12/14/2019 Lumbosacral Spondylosis without Myelopathy; Spondylosis [...] Lumbar Region; Myofascial Pain Duy Valente MD: [address] [address], [place] [address], Ph. 12/09/2019 Pre-surgery Testing; Viral Screening Duy Valente MD: [address] [address], [place] [address], Ph. [phone] 11/22/2019 Degeneration of Lumbar Intervertebral Disc; Degeneration [...] of Cervical Intervertebral Disc Ely Mcmullen NP: [id number] [facility], [place] [address], Ph. 10/18/2019 Degeneration of Lumbar Intervertebral Disc; [...] of Cervical Intervertebral Disc Duy Valente MD: [address] [address], Ph. 10/06/2019 Degeneration of Lumbar Intervertebral Disc; [...] of Cervical Intervertebral Disc Ely Mcmullen NP: [address] [address], [place] [address], Ph. 09/20/2019 Degeneration of Lumbar Intervertebral Disc; [...] of Cervical Intervertebral Disc Duy Valente MD: [address] [address], [place] [address], Ph. 09/09/2019 Degeneration of Lumbar Intervertebral Disc; [...] Degeneration of Cervical Intervertebral Disc Ely Mcmullen DIESEL SERVICE JOURNEYMAN: [address] [address], [place] [address], Ph. 09/01/2019 Lumbosacral Spondylosis without Myelopathy; Spondylosis [...] of Cervical Intervertebral Disc Duy Valente MD: [address] [address], Ph. 08/29/2019 Pre-surgery Testing; Viral Screening Duy Valente MD: [address] [address], Ph. [phone] 08/16/2019 Degeneration of Lumbar Intervertebral Disc; Degeneration [...] of Cervical Intervertebral Disc Ely Mcmullen NP: [address] [address], Ph. 07/15/2019 Degeneration of Lumbar Intervertebral Disc; [...] Myelopathy; Degeneration of Cervical Intervertebral Disc Ely Kimpernellbisimiriam CINDA Mcmullen: [address] [address], [place] [address], Ph. 07/08/2019 Degeneration of Lumbar Intervertebral Disc; [...] of Cervical Intervertebral Disc Ely Mcmullen NP: [id number] [address], Ph. 03/29/2019 Myofascial Pain; Degeneration of Lumbar [...] of Cervical Intervertebral Disc Duy Valente MD: 86816 [facility], [place] [address], Ph. 03/17/2019 Degeneration of Lumbar Intervertebral Disc; [...] of Cervical Intervertebral Disc Ely Mcmullen NP: [address] [address], [place] [address], Ph. 01/31/2019 Lumbosacral Spondylosis without Myelopathy; Spondylosis [...] Lumbar Region; Myofascial Pain Duy Valente MD: [address] [address], [place] [address], Ph. 11/29/2018 Lumbosacral Spondylosis without Myelopathy; Spondylosis [...] Lumbar Region; Myofascial Pain Duy Valente MD: [address] [address], Ph. 11/11/2018 Cervical Radiculopathy; Displacement of Cervical [...] Lumbar Region; Myofascial Pain Duy Valente MD: [address] [address], [place] [address], Ph. 10/27/2018 Lumbosacral Spondylosis without Myelopathy; Spondylosis [...] of Cervical Intervertebral Disc Duy Valente MD: [address] [address], Ph. 10/08/2018 Degeneration of Lumbar Intervertebral Disc; [...] of Cervical Intervertebral Disc Ely Mcmullen NP: [address] [address], Ph. 10/04/2018 Lumbosacral Spondylosis without Myelopathy; Spondylosis [...] of Cervical Intervertebral Disc Duy Valente MD: [address] [address], Ph. 09/20/2018 Cervical Radiculopathy; Displacement of Cervical [...] Lumbar Region; Myofascial Pain Duy Valente MD: [address] [address], [place] [address], Ph. 09/08/2018 Degeneration of Lumbar Intervertebral Disc; [...] of Cervical Intervertebral Disc Ely Mcmullen NP: [address] [address], [place] [address], Ph. 08/11/2018 Degeneration of Lumbar Intervertebral Disc; [...] of Cervical Intervertebral Disc Ely Mcmullen NP: 66389 [facility], [place] [address], Ph. 07/21/2018 Lumbar Radiculopathy; Degeneration of Lumbar Intervertebral Disc; Degeneration of Lumbosacral Intervertebral Disc; Displacement of Lumbar Intervertebral Disc without Myelopathy; Intervertebral Disc Disorder; Spondylosis without Myelopathy; Lumbosacral Spondylosis without Myelopathy; Inflammation of Sacroiliac Joint; Pain in Right Hip Joint; Spinal Stenosis of Lumbar Region; Cervical Spondylosis without Myelopathy; Myofascial Pain Duy Valente MD: 06291 [facility] [address], [place] [address], Ph. 07/19/2018 Degeneration of Lumbar Intervertebral Disc; Degeneration of Lumbosacral Intervertebral Disc; Displacement of Lumbar Intervertebral Disc without Myelopathy; Intervertebral Disc Disorder; Spondylosis without Myelopathy; Lumbosacral Spondylosis without Myelopathy; Lumbar Radiculopathy; Inflammation of Sacroiliac Joint; Pain in Right Hip Joint; Spinal Stenosis of Lumbar Region; Cervical Spondylosis without Myelopathy; Myofascial Pain Duy Valente MD: 63837 [facility] [address], [place] [address], Ph. 06/11/2018 Degeneration of Lumbar Intervertebral Disc; Degeneration of Lumbosacral Intervertebral Disc; Displacement of Lumbar Intervertebral Disc without Myelopathy; Intervertebral Disc Disorder; Spondylosis without Myelopathy; Lumbosacral Spondylosis without Myelopathy; Lumbar Radiculopathy; Inflammation of Sacroiliac Joint; Pain in Right Hip Joint; Spinal Stenosis of Lumbar Region; Cervical Spondylosis without Myelopathy; Myofascial Pain Ely Mcmullen NP: 62833 [facility] [address], [place] [address], Ph. 05/21/2018 Degeneration of Lumbar Intervertebral Disc; Degeneration of Lumbosacral Intervertebral Disc; Displacement of Lumbar Intervertebral Disc without Myelopathy; Intervertebral Disc Disorder; Spondylosis without Myelopathy; Lumbosacral Spondylosis without Myelopathy; Lumbar Radiculopathy; Inflammation of Sacroiliac Joint; Pain in Right Hip Joint; Spinal Stenosis of Lumbar Region; Cervical Spondylosis without Myelopathy; Myofascial Pain Duy Valente MD: 50957 [facility] [address], [place] [address], Ph. 05/07/2018 Degeneration of Lumbar Intervertebral Disc; Degeneration of Lumbosacral Intervertebral Disc; Displacement of Lumbar Intervertebral Disc without Myelopathy; Intervertebral Disc Disorder; Spondylosis without Myelopathy; Lumbosacral Spondylosis without Myelopathy; Lumbar Radiculopathy; Inflammation of Sacroiliac Joint; Pain in Right Hip Joint; Spinal Stenosis of Lumbar Region; Cervical Spondylosis without Myelopathy; Myofascial Pain Duy Valente MD: [address] [address], Ph. 04/29/2018 Degeneration of Lumbar Intervertebral Disc; Degeneration of Lumbosacral Intervertebral Disc; Displacement of Lumbar Intervertebral Disc without Myelopathy; Intervertebral Disc Disorder; Spondylosis without Myelopathy; Lumbosacral Spondylosis without Myelopathy; Lumbar Radiculopathy; Inflammation of Sacroiliac Joint; Pain in Right Hip Joint; Spinal Stenosis of Lumbar Region; Cervical Spondylosis without Myelopathy; Myofascial Pain Ely Mcmullen DIESEL SERVICE JOURNEYMAN: [address] [address], Ph. 04/06/2018 Degeneration of Lumbar Intervertebral Disc; Degeneration of Lumbosacral Intervertebral Disc; Displacement of Lumbar Intervertebral Disc without Myelopathy; Intervertebral Disc Disorder; Spondylosis without Myelopathy; Lumbosacral Spondylosis without Myelopathy; Lumbar Radiculopathy; Inflammation of Sacroiliac Joint; Pain in Right Hip Joint; Spinal Stenosis of Lumbar Region; Cervical Spondylosis without Myelopathy; Myofascial Pain Duy Valente MD: [address] [address], Ph. 03/03/2018 Degeneration of Lumbar Intervertebral Disc; Degeneration of Lumbosacral Intervertebral Disc; Displacement of Lumbar Intervertebral Disc without Myelopathy; Intervertebral Disc Disorder; Spondylosis without Myelopathy; Lumbosacral Spondylosis without Myelopathy; Lumbar Radiculopathy; Inflammation of Sacroiliac Joint; Pain in Right Hip Joint; Spinal Stenosis of Lumbar Region; Cervical Spondylosis without Myelopathy; Myofascial Pain Ely Mcmullen DIESEL SERVICE JOURNEYMAN: [address] [address], Ph. 01/28/2018 Degeneration of Lumbar Intervertebral Disc; Degeneration of Lumbosacral Intervertebral Disc; Displacement of Lumbar Intervertebral Disc without Myelopathy; Intervertebral Disc Disorder; Spondylosis without Myelopathy; Lumbosacral Spondylosis without Myelopathy; Lumbar Radiculopathy; Inflammation of Sacroiliac Joint; Pain in Right Hip Joint; Spinal Stenosis of Lumbar Region Duy Valente MD: 36700 [facility], [place] [address], Ph. 01/13/2018 Degeneration of Lumbar Intervertebral Disc; Degeneration of Lumbosacral Intervertebral Disc; Displacement of Lumbar Intervertebral Disc without Myelopathy; Intervertebral Disc Disorder; Spondylosis without Myelopathy; Lumbosacral Spondylosis without Myelopathy; Lumbar Radiculopathy; Inflammation of Sacroiliac Joint; Pain in Right Hip Joint; Spinal Stenosis of Lumbar Region Duy Valente MD: [address], [place] [address], Ph. Social History Tobacco Smoking Status Heavy Tobacco Smoker (1/2 PPD) Vaccine List None recorded. Plan of Care Reminders Provider Appointments None recorded. Lab None recorded. Referral None recorded. Procedures None recorded. Surgeries None recorded. Imaging None recorded. Vitals 10/06/2019 10:00AM Telehealth Height Weight BMI 5 [...]
--- OUTSIDE RECORDS SUMMARY | 2020-03-14 15:12 | CCD ---
Author Organization Unknown Address [address] [place] [address] Phone [phone] Care Team Providers Care Framing Mill Supervisor Name Role Phone [facility] (WOMAN TO WOMAN) 3 [phone] Allergies Code Code System Name Reaction Severity [...] tablet Completed 12/28/2019 tizanidine 4 mg tablet Take 4 mg every 6 hours by oral route as needed. Active Not available tizanidine hydrochloride 4 mg [...] 08/11/2018 MRI, Cervical Spine, W/o Contrast [facility] holcombsupervisor frame sample [facility] [address] [address] (Work Place) Results Lab Results Date Name Specimen Result Interpretation Description Value Range Status Address 12/10/2019 [facility] Pdf Report NOS No observation recorded. [facility]: [address] [facility] [place] 12/10/2019 COVID-19 RNA (SARS-CoV-2), QL, toy assembly supervisor-PCR, Respirat ory Specimen NOS Normal Sars-cov-2 negative negative Final [facility]: [address] [facility] 08/29/2019 COVID-19 RNA (SARS-CoV-2), QL, toy assembly supervisor-PCR, Respiratory Specim en No observation recorded. Past Encounters 12/30/2019 Pre-surgery Testing; Viral Screening Duy Valente MD: 58953 [facility], [place] [address], Ph. [phone] 12/28/2019 Degeneration of Lumbar Intervertebral Disc; Degeneration [...] Fracture of Thoracic Vertebra Ely Mcmullen NP: 65866 [facility], [place] [address], Ph. 12/15/2019 Lumbosacral Spondylosis without Myelopathy; Spondylosis [...] Lumbar Region; Myofascial Pain Duy Valente MD: 26122 [facility] [address], [address], [place] [address], Ph. 12/14/2019 Lumbosacral Spondylosis without Myelopathy; Spondylosis [...] Lumbar Region; Myofascial Pain Duy Valente MD: [address] [address], [place] [address], Ph. 12/09/2019 Pre-surgery Testing; Viral Screening Duy Valente MD: [address] [address], Ph. [phone] 11/22/2019 Degeneration of Lumbar Intervertebral Disc; Degeneration [...] of Cervical Intervertebral Disc Ely Mcmullen NP: [address] [address], [facility] [place] [address], Ph. 10/18/2019 Degeneration of Lumbar Intervertebral Disc; [...] of Cervical Intervertebral Disc Duy Valente MD: [address] [address], [place] [address], Ph. 10/06/2019 Degeneration of Lumbar Intervertebral Disc; [...] of Cervical Intervertebral Disc Ely Mcmullen NP: [address] [address], Ph. 09/20/2019 Degeneration of Lumbar Intervertebral Disc; [...] of Cervical Intervertebral Disc Duy Valente MD: [address] [address], Ph. 09/09/2019 Degeneration of Lumbar Intervertebral Disc; [...] of Cervical Intervertebral Disc Ely Mcmullen NP: [address] [address], Ph. 09/01/2019 Lumbosacral Spondylosis without Myelopathy; Spondylosis [...] of Cervical Intervertebral Disc Duy Valente MD: [address] [address], [facility] [place] [address], Ph. 08/29/2019 Pre-surgery Testing; Viral Screening Duy Valente MD: [address] [address], [facility] [place] [address], Ph. [phone] 08/16/2019 Degeneration of Lumbar Intervertebral Disc; Degeneration [...] of Cervical Intervertebral Disc Ely Mcmullen NP: [address] [address], [place] [address], Ph. 07/15/2019 Degeneration of Lumbar Intervertebral Disc; [...] Degeneration of Cervical Intervertebral Disc Ely Mcmullen TRAVEL WRITER: [address] [address], [facility] [place] [address], Ph. 07/08/2019 Degeneration of Lumbar Intervertebral Disc; [...] Degeneration of Cervical Intervertebral Disc Ely Mcmullen, TRAVEL WRITER: [address] [address], Ph. 03/29/2019 Myofascial Pain; Degeneration of Lumbar [...] of Cervical Intervertebral Disc Duy Valente MD: [address] [address], Ph. 03/17/2019 Degeneration of Lumbar Intervertebral Disc; [...] Degeneration of Cervical Intervertebral Disc Ely Mcmullen, TRAVEL WRITER: [address] [address], Ph. 01/31/2019 Lumbosacral Spondylosis without Myelopathy; Spondylosis [...] Lumbar Region; Myofascial Pain Duy Valente MD: [address] [address], [place] [address], Ph. 11/29/2018 Lumbosacral Spondylosis without Myelopathy; Spondylosis [...] Lumbar Region; Myofascial Pain Duy Valente MD: [address] [address], [place] [address], Ph. 11/11/2018 Cervical Radiculopathy; Displacement of Cervical [...] Lumbar Region; Myofascial Pain Duy Valente MD: [address] [address], [place] [address], Ph. 10/27/2018 Lumbosacral Spondylosis without Myelopathy; Spondylosis [...] of Cervical Intervertebral Disc Duy Valente MD: 21388 [facility], [place] [address], Ph. 10/08/2018 Degeneration of Lumbar Intervertebral Disc; [...] of Cervical Intervertebral Disc Ely Mcmullen NP: [address] [address], [place] [address], Ph. 10/04/2018 Lumbosacral Spondylosis without Myelopathy; Spondylosis [...] of Cervical Intervertebral Disc Duy Valente MD: [address] [address], [place] [address], Ph. 09/20/2018 Cervical Radiculopathy; Displacement of Cervical [...] Lumbar Region; Myofascial Pain Duy Valente MD: [address] [address], [place] [address], Ph. 09/08/2018 Degeneration of Lumbar Intervertebral Disc; [...] Degeneration of Cervical Intervertebral Disc Ely Mcmullen, TRAVEL WRITER: [address] [address], Ph. 08/11/2018 Degeneration of Lumbar Intervertebral Disc; [...] Degeneration of Cervical Intervertebral Disc Ely Mcmullen, TRAVEL WRITER: [address] [address], Ph. 07/21/2018 Lumbar Radiculopathy; Degeneration of Lumbar Intervertebral Disc; Degeneration of Lumbosacral Intervertebral Disc; Displacement of Lumbar Intervertebral Disc without Myelopathy; Intervertebral Disc Disorder; Spondylosis without Myelopathy; Lumbosacral Spondylosis without Myelopathy; Inflammation of Sacroiliac Joint; Pain in Right Hip Joint; Spinal Stenosis of Lumbar Region; Cervical Spondylosis without Myelopathy; Myofascial Pain Duy Valente MD: [address] [address], Ph. 07/19/2018 Degeneration of Lumbar Intervertebral Disc; Degeneration of Lumbosacral Intervertebral Disc; Displacement of Lumbar Intervertebral Disc without Myelopathy; Intervertebral Disc Disorder; Spondylosis without Myelopathy; Lumbosacral Spondylosis without Myelopathy; Lumbar Radiculopathy; Inflammation of Sacroiliac Joint; Pain in Right Hip Joint; Spinal Stenosis of Lumbar Region; Cervical Spondylosis without Myelopathy; Myofascial Pain Duy Valente MD: [address] [address], Ph. 06/11/2018 Degeneration of Lumbar Intervertebral Disc; Degeneration of Lumbosacral Intervertebral Disc; Displacement of Lumbar Intervertebral Disc without Myelopathy; Intervertebral Disc Disorder; Spondylosis without Myelopathy; Lumbosacral Spondylosis without Myelopathy; Lumbar Radiculopathy; Inflammation of Sacroiliac Joint; Pain in Right Hip Joint; Spinal Stenosis of Lumbar Region; Cervical Spondylosis without Myelopathy; Myofascial Pain Ely Mcmullen TRAVEL WRITER: [address] [address], [place] [address], Ph. 05/21/2018 Degeneration of Lumbar Intervertebral Disc; Degeneration of Lumbosacral Intervertebral Disc; Displacement of Lumbar Intervertebral Disc without Myelopathy; Intervertebral Disc Disorder; Spondylosis without Myelopathy; Lumbosacral Spondylosis without Myelopathy; Lumbar Radiculopathy; Inflammation of Sacroiliac Joint; Pain in Right Hip Joint; Spinal Stenosis of Lumbar Region; Cervical Spondylosis without Myelopathy; Myofascial Pain Duy Valente MD: [address] [address], Ph. 05/07/2018 Degeneration of Lumbar Intervertebral Disc; Degeneration of Lumbosacral Intervertebral Disc; Displacement of Lumbar Intervertebral Disc without Myelopathy; Intervertebral Disc Disorder; Spondylosis without Myelopathy; Lumbosacral Spondylosis without Myelopathy; Lumbar Radiculopathy; Inflammation of Sacroiliac Joint; Pain in Right Hip Joint; Spinal Stenosis of Lumbar Region; Cervical Spondylosis without Myelopathy; Myofascial Pain Duy Valente MD: [address] [address], Ph. 04/29/2018 Degeneration of Lumbar Intervertebral Disc; Degeneration of Lumbosacral Intervertebral Disc; Displacement of Lumbar Intervertebral Disc without Myelopathy; Intervertebral Disc Disorder; Spondylosis without Myelopathy; Lumbosacral Spondylosis without Myelopathy; Lumbar Radiculopathy; Inflammation of Sacroiliac Joint; Pain in Right Hip Joint; Spinal Stenosis of Lumbar Region; Cervical Spondylosis without Myelopathy; Myofascial Pain Ely Mcmullen TRAVEL WRITER: [address] [address], Ph. 04/06/2018 Degeneration of Lumbar Intervertebral Disc; Degeneration of Lumbosacral Intervertebral Disc; Displacement of Lumbar Intervertebral Disc without Myelopathy; Intervertebral Disc Disorder; Spondylosis without Myelopathy; Lumbosacral Spondylosis without Myelopathy; Lumbar Radiculopathy; Inflammation of Sacroiliac Joint; Pain in Right Hip Joint; Spinal Stenosis of Lumbar Region; Cervical Spondylosis without Myelopathy; Myofascial Pain Duy Valente MD: [address] [address], [place] [address], Ph. 03/03/2018 Degeneration of Lumbar Intervertebral Disc; Degeneration of Lumbosacral Intervertebral Disc; Displacement of Lumbar Intervertebral Disc without Myelopathy; Intervertebral Disc Disorder; Spondylosis without Myelopathy; Lumbosacral Spondylosis without Myelopathy; Lumbar Radiculopathy; Inflammation of Sacroiliac Joint; Pain in Right Hip Joint; Spinal Stenosis of Lumbar Region; Cervical Spondylosis without Myelopathy; Myofascial Pain Ely Mcmullen NP: [address] [address], Ph. 01/28/2018 Degeneration of Lumbar Intervertebral Disc; Degeneration of Lumbosacral Intervertebral Disc; Displacement of Lumbar Intervertebral Disc without Myelopathy; Intervertebral Disc Disorder; Spondylosis without Myelopathy; Lumbosacral Spondylosis without Myelopathy; Lumbar Radiculopathy; Inflammation of Sacroiliac Joint; Pain in Right Hip Joint; Spinal Stenosis of Lumbar Region Duy Valente MD: [address] [address], Ph. 01/13/2018 Degeneration of Lumbar Intervertebral Disc; Degeneration of Lumbosacral Intervertebral Disc; Displacement of Lumbar Intervertebral Disc without Myelopathy; Intervertebral Disc Disorder; Spondylosis without Myelopathy; Lumbosacral Spondylosis without Myelopathy; Lumbar Radiculopathy; Inflammation of Sacroiliac Joint; Pain in Right Hip Joint; Spinal Stenosis of Lumbar Region Duy Valente MD: [address] [address], [place] [address], Ph. Social History Tobacco Smoking Status Heavy [...]
--- OUTSIDE RECORDS SUMMARY | 2020-03-14 15:12 | CCD ---
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 Active 65 624837 Problem Tobacco use disorder F17.200 Active 650462931 Problem PAD (peripheral artery disease) I73.9 Active 238529012 Problem History of [place] (myocardial infarction) I25.2 Ac tive 296225583 Problem Perimenopausal atrophic vaginitis N95.2 Active 671568352 Problem Bilateral hand pain 729.5 Active 71178258 Problem Vaginal bleeding N93.9 Active 509506407 Problem Peripheral neuropathy 356.9 Active 67683237 Problem Epidermoid cyst of skin of chest 706.2 Active 156420571 Problem Osteoporosis 733.00 Active 04865075 Problem 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 65 608439 Problem Cervical facet syndrome M46.92 Active 87423639 6 Problem Stress at home F43.9 Active 657521875 Problem Hyperlipidemia LDL goal <100 272.4 Active 558 17779 Problem 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 Ac tive 486813711 Problem Osteoarthritis 715.90 Active 552089539 Problem Myalgia M79.1 Active 38750666 Problem PAD (peripheral artery disease) 443.9 Active 367360984 Problem Chronic obstructive pulmonary disease, unspecified COPD ty pe J44.9 Active 36284718 Problem History of [place] (myocardial infarction) 412 Ac tive 962144568 Problem Cocaine abuse F14.10 Active 84369251 Problem Seizure disorder 345.90 Active 201031906 Problem Stuttering F80.81 Active 99400213 Problem History of CVA (cerebrovascular accident) V12.54 Active 078942800 Problem Frequency-urgency syndrome N31.8 Active 51324 3002 Problem Influenza vaccination declined Z28.21 Active 3 35662394 Problem Hip arthritis M16.10 Active 19683781 Problem Gastroesophageal reflux disease, esophagitis pre sence not specified K21.9 Active 658819081 Problem Other chronic pain G89.29 Active 78088156 Problem Adjustment disorder with mixed anxiety and depressed mood F43.23 Active 905085948 Problem Constipation, unspecified constipation type K59.00 Active 29152969 Problem COPD (chronic obstructive pulmonary disease) 496 Active 72957354 Problem Sacroiliac inflammation M46.1 Active 16856620 Problem DDD (degenerative disc disease), lumbar 722.52 Active 41784303 Problem Degenerative disc disease, lumbar M51.36 Active 72308332 Problem COPD exacerbation J44.1 Active 045686395 Problem Tobacco abuse 305.1 Active 78517938 Problem Seizure disorder G40.909 Active 886480421 Problem COPD with exacerbation J44.1 Active 517981657 ALLERGIES Allergen (clinical drug ingredient) Drug/Non Drug Allergy do cumented on EMR Reaction Allergy Type Onset Date Status varenicline Chantix([facility] Code:[address]-08) depression Drug Allergy Active Wellbutrin Nightmares Drug Allergy Active ENCOUNTERS from 1960 to 2019-12-27 Encounter Location Date Provider Diagnosis [facility] [address] [place] [address] Dec, Geena Hogan IMMUNIZATIONS Vaccine Route [...] Education Language: Question Answer Notes Languages spoken: French Roman Catholic: Question Answer Notes Roman Catholic 31 None Sexual Hx: Question Answer [...] Information RESULTS No Results REASON FOR VISIT Medication MEDICAL (GENERAL) HISTORY Type Description Date Medical History History of CVA (cerebrovascular accident ) Medical History History of [place] (myocardial infarction) Medical History Seizure disorder Medical [...] Coverage Start Date Coverage End Date MEDICAID [employer] [address] [facility] [id number] BENNIE BAEZA self MEDICARE COMPLETE [employer] [address] [address] [facility] [id number] BENNIE BAEZA self
--- OUTSIDE RECORDS SUMMARY | 2020-03-14 15:12 | CCD ---
Author Organization Unknown Address [address] [place] [address] Phone [phone] Care Team Providers Care Educational Assistant Name Role Phone [facility] 3 [phone] Allergies Code Code System Name Reaction Severity [...] 08/11/2018 MRI, Cervical Spine, W/o Contrast [facility] [address] [address] (Work Place) Results Lab Results Date Name Specimen Result Interpretation Description Value Range Status Address 12/10/2019 [facility] Pdf Report NOS No observation recorded. [facility]: [address] [facility] [place] 12/10/2019 COVID-19 RNA (SARS-CoV-2), QL, newspaper illustrator-PCR, Respirat ory Specimen NOS Normal Sars-cov-2 negative negative Final [facility]: [address] [facility] [place] 08/29/2019 COVID-19 RNA (SARS-CoV-2), QL, newspaper illustrator-PCR, Respiratory Specim en No observation recorded. Past Encounters 12/28/2019 Degeneration of Lumbar Intervertebral Disc; Degeneration [...] Fracture of Thoracic Vertebra Ely Mcmullen NP: [address] [address], [place] [address], Ph. 12/15/2019 Lumbosacral Spondylosis without Myelopathy; Spondylosis [...] Lumbar Region; Myofascial Pain Duy Valente MD: [address] [facility] [address], [facility] [place] [address], Ph. 12/14/2019 Lumbosacral Spondylosis without Myelopathy; Spondylosis [...] Lumbar Region; Myofascial Pain Duy Valente MD: [address] [address], [facility] [place] [address], Ph. 12/09/2019 Pre-surgery Testing; Viral Screening Duy Valente MD: [address] [address], [place] [address], Ph. [phone] 11/22/2019 Degeneration of Lumbar Intervertebral Disc; Degeneration [...] of Cervical Intervertebral Disc Ely Mcmullen NP: [address] [address], Ph. 10/18/2019 Degeneration of Lumbar Intervertebral Disc; [...] of Cervical Intervertebral Disc Duy Valente MD: [address] [address], Ph. 10/06/2019 Degeneration of Lumbar Intervertebral Disc; [...] of Cervical Intervertebral Disc Ely Mcmullen NP: [address] [address], Ph. 09/20/2019 Degeneration of Lumbar Intervertebral Disc; [...] of Cervical Intervertebral Disc Duy Valente MD: [address] [address], Ph. 09/09/2019 Degeneration of Lumbar Intervertebral Disc; [...] Degeneration of Cervical Intervertebral Disc Ely Karen Mcmullen TUBE PULLER: [address] [address], Ph. 09/01/2019 Lumbosacral Spondylosis without Myelopathy; Spondylosis [...] of Cervical Intervertebral Disc Duy Valente MD: [address] [address], Ph. 08/29/2019 Pre-surgery Testing; Viral Screening Duy Adamson Bolla, MD: [address] [address], [facility] [place] [address], Ph. [phone] 08/16/2019 Degeneration of Lumbar Intervertebral Disc; Degeneration [...] of Cervical Intervertebral Disc Ely Mcmullen NP: [address] [address], [place] [address], Ph. 07/15/2019 Degeneration of Lumbar Intervertebral Disc; [...] of Cervical Intervertebral Disc Ely Mcmullen NP: [address] [address], [facility] [place] [address], Ph. 07/08/2019 Degeneration of Lumbar Intervertebral Disc; [...] Degeneration of Cervical Intervertebral Disc Ely Mcmullen TUBE PULLER: [address] [facility] [address], [facility] [place] [address], Ph. 03/29/2019 Myofascial Pain; Degeneration of Lumbar [...] of Cervical Intervertebral Disc Duy Valente MD: [address] [address], Ph. 03/17/2019 Degeneration of Lumbar Intervertebral Disc; [...] of Cervical Intervertebral Disc Ely Mcmullen NP: [address] [address], Ph. 01/31/2019 Lumbosacral Spondylosis without Myelopathy; Spondylosis [...] Lumbar Region; Myofascial Pain Duy Valente MD: [address] [address], Ph. 11/29/2018 Lumbosacral Spondylosis without Myelopathy; Spondylosis [...] Lumbar Region; Myofascial Pain Duy Valente MD: [address] [address], [place] [address], Ph. 11/11/2018 Cervical Radiculopathy; Displacement of Cervical [...] Lumbar Region; Myofascial Pain Duy Valente MD: [address] [address], [place] [address], Ph. 10/27/2018 Lumbosacral Spondylosis without Myelopathy; Spondylosis [...] of Cervical Intervertebral Disc Duy Valente MD: [address] [facility] [address], [facility] [place] [address], Ph. 10/08/2018 Degeneration of Lumbar Intervertebral Disc; [...] Degeneration of Cervical Intervertebral Disc Ely Mcmullen TUBE PULLER: [address] [address], Ph. 10/04/2018 Lumbosacral Spondylosis without Myelopathy; Spondylosis [...] of Cervical Intervertebral Disc Duy Valente MD: [address] [address], Ph. 09/20/2018 Cervical Radiculopathy; Displacement of Cervical [...] Lumbar Region; Myofascial Pain Duy Valente MD: [address] [address], Ph. 09/08/2018 Degeneration of Lumbar Intervertebral Disc; [...] Degeneration of Cervical Intervertebral Disc Ely Mcmullen TUBE PULLER: [address] [address], Ph. 08/11/2018 Degeneration of Lumbar Intervertebral Disc; [...] of Cervical Intervertebral Disc Ely Mcmullen NP: [address] [address], [place] [address], Ph. 07/21/2018 Lumbar Radiculopathy; Degeneration of Lumbar Intervertebral Disc; Degeneration of Lumbosacral Intervertebral Disc; Displacement of Lumbar Intervertebral Disc without Myelopathy; Intervertebral Disc Disorder; Spondylosis without Myelopathy; Lumbosacral Spondylosis without Myelopathy; Inflammation of Sacroiliac Joint; Pain in Right Hip Joint; Spinal Stenosis of Lumbar Region; Cervical Spondylosis without Myelopathy; Myofascial Pain Duy Valente MD: [address] [address], [place] [address], Ph. 07/19/2018 Degeneration of Lumbar Intervertebral Disc; Degeneration of Lumbosacral Intervertebral Disc; Displacement of Lumbar Intervertebral Disc without Myelopathy; Intervertebral Disc Disorder; Spondylosis without Myelopathy; Lumbosacral Spondylosis without Myelopathy; Lumbar Radiculopathy; Inflammation of Sacroiliac Joint; Pain in Right Hip Joint; Spinal Stenosis of Lumbar Region; Cervical Spondylosis without Myelopathy; Myofascial Pain Duy Valente MD: [address] [address], [place] [address], Ph. 06/11/2018 Degeneration of Lumbar Intervertebral Disc; Degeneration of Lumbosacral Intervertebral Disc; Displacement of Lumbar Intervertebral Disc without Myelopathy; Intervertebral Disc Disorder; Spondylosis without Myelopathy; Lumbosacral Spondylosis without Myelopathy; Lumbar Radiculopathy; Inflammation of Sacroiliac Joint; Pain in Right Hip Joint; Spinal Stenosis of Lumbar Region; Cervical Spondylosis without Myelopathy; Myofascial Pain Ely Mcmullen TUBE PULLER: [address] [address], [place] [address], Ph. 05/21/2018 Degeneration of Lumbar Intervertebral Disc; Degeneration of Lumbosacral Intervertebral Disc; Displacement of Lumbar Intervertebral Disc without Myelopathy; Intervertebral Disc Disorder; Spondylosis without Myelopathy; Lumbosacral Spondylosis without Myelopathy; Lumbar Radiculopathy; Inflammation of Sacroiliac Joint; Pain in Right Hip Joint; Spinal Stenosis of Lumbar Region; Cervical Spondylosis without Myelopathy; Myofascial Pain Duy Valente MD: [address] [address], Ph. 05/07/2018 Degeneration of Lumbar Intervertebral Disc; Degeneration of Lumbosacral Intervertebral Disc; Displacement of Lumbar Intervertebral Disc without Myelopathy; Intervertebral Disc Disorder; Spondylosis without Myelopathy; Lumbosacral Spondylosis without Myelopathy; Lumbar Radiculopathy; Inflammation of Sacroiliac Joint; Pain in Right Hip Joint; Spinal Stenosis of Lumbar Region; Cervical Spondylosis without Myelopathy; Myofascial Pain Duy Valente MD: [address] [address], Ph. 04/29/2018 Degeneration of Lumbar Intervertebral Disc; Degeneration of Lumbosacral Intervertebral Disc; Displacement of Lumbar Intervertebral Disc without Myelopathy; Intervertebral Disc Disorder; Spondylosis without Myelopathy; Lumbosacral Spondylosis without Myelopathy; Lumbar Radiculopathy; Inflammation of Sacroiliac Joint; Pain in Right Hip Joint; Spinal Stenosis of Lumbar Region; Cervical Spondylosis without Myelopathy; Myofascial Pain Ely Mcmullen TUBE PULLER: [address] [address], Ph. 04/06/2018 Degeneration of Lumbar Intervertebral Disc; Degeneration of Lumbosacral Intervertebral Disc; Displacement of Lumbar Intervertebral Disc without Myelopathy; Intervertebral Disc Disorder; Spondylosis without Myelopathy; Lumbosacral Spondylosis without Myelopathy; Lumbar Radiculopathy; Inflammation of Sacroiliac Joint; Pain in Right Hip Joint; Spinal Stenosis of Lumbar Region; Cervical Spondylosis without Myelopathy; Myofascial Pain Duy Valente MD: [address] [address], Ph. 03/03/2018 Degeneration of Lumbar Intervertebral Disc; Degeneration of Lumbosacral Intervertebral Disc; Displacement of Lumbar Intervertebral Disc without Myelopathy; Intervertebral Disc Disorder; Spondylosis without Myelopathy; Lumbosacral Spondylosis without Myelopathy; Lumbar Radiculopathy; Inflammation of Sacroiliac Joint; Pain in Right Hip Joint; Spinal Stenosis of Lumbar Region; Cervical Spondylosis without Myelopathy; Myofascial Pain Ely Mcmullen NP: [address] [address], Ph. 01/28/2018 Degeneration of Lumbar Intervertebral Disc; Degeneration of Lumbosacral Intervertebral Disc; Displacement of Lumbar Intervertebral Disc without Myelopathy; Intervertebral Disc Disorder; Spondylosis without Myelopathy; Lumbosacral Spondylosis without Myelopathy; Lumbar Radiculopathy; Inflammation of Sacroiliac Joint; Pain in Right Hip Joint; Spinal Stenosis of Lumbar Region Duy Valente MD: [address] [address], Ph. 01/13/2018 Degeneration of Lumbar Intervertebral Disc; Degeneration of Lumbosacral Intervertebral Disc; Displacement of Lumbar Intervertebral Disc without Myelopathy; Intervertebral Disc Disorder; Spondylosis without Myelopathy; Lumbosacral Spondylosis without Myelopathy; Lumbar Radiculopathy; Inflammation of Sacroiliac Joint; Pain in Right Hip Joint; Spinal Stenosis of Lumbar Region Duy Valente MD: [address] [address], [place] [address], Ph. Social History Tobacco Smoking Status Heavy [...]
[2020-03-14] MEDS ORDERED: ANOR1AER INH (15:15)
[2020-03-14] MEDS ORDERED: TIZA4TAB4 (15:16)
--- OUTSIDE RECORDS SUMMARY | 2020-03-14 15:17 | CCD ---
Author Author [facility] Organization [facility] Address Unknown Phone Unavailable Care Team Providers Care Buffing Wheel Inspector Name Role Phone Jumalon, M Ely INTEGRATED CIRCUITS INSPECTOR Unavailable Unavailable Jumalon, M Ely INTEGRATED CIRCUITS INSPECTOR Unavailable Unavailable Jumalon, M Ely INTEGRATED CIRCUITS INSPECTOR Unavailable Unavailable Jumalon, M Ely INTEGRATED CIRCUITS INSPECTOR Unavailable Unavailable Jumalon, M Ely INTEGRATED CIRCUITS INSPECTOR Unavailable Unavailable Jumalon, M Ely INTEGRATED CIRCUITS INSPECTOR Unavailable Unavailable Jumalon, M Ely INTEGRATED CIRCUITS INSPECTOR Unavailable Unavailable Jumalon, M Ely INTEGRATED CIRCUITS INSPECTOR Unavailable Unavailable Jumalon, M Ely INTEGRATED CIRCUITS INSPECTOR Unavailable Unavailable Jumalon, M Ely INTEGRATED CIRCUITS INSPECTOR Unavailable Unavailable Jumalon, M Ely INTEGRATED CIRCUITS INSPECTOR Unavailable Unavailable Jumalon, M Ely INTEGRATED CIRCUITS INSPECTOR Unavailable Unavailable Jumalon, M Ely INTEGRATED CIRCUITS INSPECTOR Unavailable Unavailable Jumalon, M Ely INTEGRATED CIRCUITS INSPECTOR Unavailable Unavailable Jumalon, M Ely INTEGRATED CIRCUITS INSPECTOR Unavailable Unavailable Jumalon, M Ely INTEGRATED CIRCUITS INSPECTOR Unavailable Unavailable Jumalon, M Ely INTEGRATED CIRCUITS INSPECTOR Unavailable Unavailable Jumalon, M Ely INTEGRATED CIRCUITS INSPECTOR Unavailable Unavailable Jumalon, M Ely INTEGRATED CIRCUITS INSPECTOR Unavailable Unavailable Jumalon, M Ely INTEGRATED CIRCUITS INSPECTOR Unavailable Unavailable Jumalon, M Ely INTEGRATED CIRCUITS INSPECTOR Unavailable Unavailable Jumalon, M Ely INTEGRATED CIRCUITS INSPECTOR Unavailable Unavailable Jumalon, M Ely INTEGRATED CIRCUITS INSPECTOR Unavailable Unavailable Jumalon, M Ely INTEGRATED CIRCUITS INSPECTOR Unavailable Unavailable Jumalon, M Ely INTEGRATED CIRCUITS INSPECTOR Unavailable Unavailable Jumalon, M Ely INTEGRATED CIRCUITS INSPECTOR Unavailable Unavailable Jumalon, M Ely INTEGRATED CIRCUITS INSPECTOR Unavailable Unavailable Jumalon, M Ely INTEGRATED CIRCUITS INSPECTOR Unavailable Unavailable Jumalon, M Ely INTEGRATED CIRCUITS INSPECTOR Unavailable Unavailable Jumalon, M Ely INTEGRATED CIRCUITS INSPECTOR Unavailable Unavailable Jumalon, M Ely INTEGRATED CIRCUITS INSPECTOR Unavailable Unavailable Jumalon, M Ely INTEGRATED CIRCUITS INSPECTOR Unavailable Unavailable Jumalon, M Ely INTEGRATED CIRCUITS INSPECTOR Unavailable Unavailable Jumalon, M Ely INTEGRATED CIRCUITS INSPECTOR Unavailable Unavailable Jumalon, M Ely INTEGRATED CIRCUITS INSPECTOR Unavailable Unavailable Jumalon, M Ely INTEGRATED CIRCUITS INSPECTOR Unavailable Unavailable Jumalon, M Ely INTEGRATED CIRCUITS INSPECTOR Unavailable Unavailable Jumalon, M Ely INTEGRATED CIRCUITS INSPECTOR Unavailable Unavailable Jumalon, M Ely INTEGRATED CIRCUITS INSPECTOR Unavailable Unavailable Jumalon, M Ely INTEGRATED CIRCUITS INSPECTOR Unavailable Unavailable Jumalon, M Ely INTEGRATED CIRCUITS INSPECTOR Unavailable Unavailable Jumalon, M Ely INTEGRATED CIRCUITS INSPECTOR Unavailable Unavailable Jumalon, M Ely INTEGRATED CIRCUITS INSPECTOR Unavailable Unavailable Jumalon, M Ely INTEGRATED CIRCUITS INSPECTOR Unavailable Unavailable Jumalon, M Ely INTEGRATED CIRCUITS INSPECTOR Unavailable Unavailable Jumalon, M Ely INTEGRATED CIRCUITS INSPECTOR Unavailable Unavailable Jumalon, M Ely INTEGRATED CIRCUITS INSPECTOR Unavailable Unavailable Jumalon, M Ely INTEGRATED CIRCUITS INSPECTOR Unavailable Unavailable Jumalon, M Ely INTEGRATED CIRCUITS INSPECTOR Unavailable Unavailable Jumalon, M Ely INTEGRATED CIRCUITS INSPECTOR Unavailable Unavailable Jumalon, M Ely INTEGRATED CIRCUITS INSPECTOR Unavailable Unavailable Jumalon, M Ely INTEGRATED CIRCUITS INSPECTOR Unavailable Unavailable Jumalon, M Ely INTEGRATED CIRCUITS INSPECTOR Unavailable Unavailable Jumalon, M Ely INTEGRATED CIRCUITS INSPECTOR Unavailable Unavailable Jumalon, M Ely INTEGRATED CIRCUITS INSPECTOR Unavailable Unavailable COOK, B BRANDT MASSAGE COORDINATOR Unavailable Unavailable COOK, B BRANDT MASSAGE COORDINATOR Unavailable Unavailable COOK, B BRANDT MASSAGE COORDINATOR Unavailable Unavailable COOK, B BRANDT MASSAGE COORDINATOR Unavailable Unavailable COOK, B BRANDT MASSAGE COORDINATOR Unavailable Unavailable COOK, B BRANDT MASSAGE COORDINATOR Unavailable Unavailable COOK, B BRANDT MASSAGE COORDINATOR Unavailable Unavailable COOK, B BRANDT MASSAGE COORDINATOR Unavailable Unavailable COOK, B BRANDT MASSAGE COORDINATOR Unavailable Unavailable COOK, B BRANDT MASSAGE COORDINATOR Unavailable Unavailable COOK, B BRANDT MASSAGE COORDINATOR Unavailable Unavailable COOK, B BRANDT MASSAGE COORDINATOR Unavailable Unavailable COOK, B BRANDT MASSAGE COORDINATOR Unavailable Unavailable COOK, B BRANDT MASSAGE COORDINATOR Unavailable Unavailable COOK, B BRANDT MASSAGE COORDINATOR Unavailable Unavailable COOK, B BRANDT MASSAGE COORDINATOR Unavailable Unavailable COOK, B BRANDT MASSAGE COORDINATOR Unavailable Unavailable COOK, B BRANDT MASSAGE COORDINATOR Unavailable Unavailable COOK, B BRANDT MASSAGE COORDINATOR Unavailable Unavailable COOK, B BRANDT MASSAGE COORDINATOR Unavailable Unavailable COOK, B BRANDT MASSAGE COORDINATOR Unavailable Unavailable COOK, B BRANDT MASSAGE COORDINATOR Unavailable Unavailable COOK, B BRANDT MASSAGE COORDINATOR Unavailable Unavailable COOK, B BRANDT MASSAGE COORDINATOR Unavailable Unavailable COOK, B BRANDT MASSAGE COORDINATOR Unavailable Unavailable COOK, B BRANDT MASSAGE COORDINATOR Unavailable Unavailable COOK, B BRANDT MASSAGE COORDINATOR Unavailable Unavailable COOK, B BRANDT MASSAGE COORDINATOR Unavailable Unavailable COOK, B BRANDT MASSAGE COORDINATOR Unavailable Unavailable COOK, B BRANDT MASSAGE COORDINATOR Unavailable Unavailable COOK, B BRANDT MASSAGE COORDINATOR Unavailable Unavailable COOK, B BRANDT MASSAGE COORDINATOR Unavailable Unavailable COOK, B BRANDT MASSAGE COORDINATOR Unavailable Unavailable COOK, B BRANDT MASSAGE COORDINATOR Unavailable Unavailable COOK, B BRANDT MASSAGE COORDINATOR Unavailable Unavailable COOK, B BRANDT MASSAGE COORDINATOR Unavailable Unavailable COOK, B BRANDT MASSAGE COORDINATOR Unavailable Unavailable COOK, B BRANDT MASSAGE COORDINATOR Unavailable Unavailable COOK, B BRANDT MASSAGE COORDINATOR Unavailable Unavailable COOK, B BRANDT MASSAGE COORDINATOR Unavailable Unavailable COOK, B BRANDT MASSAGE COORDINATOR Unavailable Unavailable COOK, B BRANDT MASSAGE COORDINATOR Unavailable Unavailable COOK, B BRANDT MASSAGE COORDINATOR Unavailable Unavailable COOK, B BRANDT MASSAGE COORDINATOR Unavailable Unavailable COOK, B BRANDT MASSAGE COORDINATOR Unavailable Unavailable COOK, B BRANDT MASSAGE COORDINATOR Unavailable Unavailable COOK, B BRANDT MASSAGE COORDINATOR Unavailable Unavailable COOK, B BRANDT MASSAGE COORDINATOR Unavailable Unavailable COOK, B BRANDT MASSAGE COORDINATOR Unavailable Unavailable COOK, B BRANDT MASSAGE COORDINATOR Unavailable Unavailable COOK, B BRANDT MASSAGE COORDINATOR Unavailable Unavailable COOK, B BRANDT MASSAGE COORDINATOR Unavailable Unavailable COOK, B BRANDT MASSAGE COORDINATOR Unavailable Unavailable COOK, B BRANDT MASSAGE COORDINATOR Unavailable Unavailable COOK, B BRANDT MASSAGE COORDINATOR Unavailable Unavailable COOK, B BRANDT MASSAGE COORDINATOR Unavailable Unavailable COOK, B BRANDT MASSAGE COORDINATOR Unavailable Unavailable COOK, B BRANDT MASSAGE COORDINATOR Unavailable Unavailable COOK, B BRANDT MASSAGE COORDINATOR Unavailable Unavailable COOK, B BRANDT MASSAGE COORDINATOR Unavailable Unavailable COOK, B BRANDT MASSAGE COORDINATOR Unavailable Unavailable COOK, B BRANDT MASSAGE COORDINATOR Unavailable Unavailable COOK, B BRANDT MASSAGE COORDINATOR Unavailable Unavailable COOK, B BRANDT MASSAGE COORDINATOR Unavailable Unavailable Bolrashad, Jonathan Gordillo MD Unavailable Unavailable Bolla, Jonathan Gordillo MD Unavailable Unavailable Bolla, Jonathan Gordillo MD Unavailable Unavailable Bolla, Jonathan Gordillo MD Unavailable Unavailable Bolla, S Duy CAMARILLO Unavailable Unavailable Bolla, S Duy CAMARILLO Unavailable Unavailable Bolla, S Duy CAMARILLO Unavailable Unavailable Bolla, S Duy CAMARILLO Unavailable Unavailable Bolla, S Duy CAMARILLO Unavailable Unavailable Bolla, S Duy CAMARILLO Unavailable Unavailable Bolla, S Duy CAMARILLO Unavailable Unavailable Bolla, S Duy CAMARILLO Unavailable Unavailable Bolla, S Duy CAMARILLO Unavailable Unavailable Bolla, S Duy CAMARILLO Unavailable Unavailable Bolla, S Duy CAMARILLO Unavailable Unavailable Bolla, S Duy CAMARILLO Unavailable Unavailable Bolla, S Duy CAMARILLO Unavailable Unavailable Bolla, S Duy CAMARILLO Unavailable Unavailable Bolla, S Duy CAMARILLO Unavailable Unavailable Bolla, S Duy CAMARILLO Unavailable Unavailable Bolla, S Duy CAMARILLO Unavailable Unavailable Bolla, S Duy CAMARILLO Unavailable Unavailable Bolla, S Duy CAMARILLO Unavailable Unavailable Bolla, S Duy CAMARILLO Unavailable Unavailable Bolla, S Duy CAMARILLO Unavailable Unavailable Bolla, Jonathan Gordillo MD Unavailable Unavailable Bolla, Jonathan Gordillo MD Unavailable Unavailable Bolla, Jonathan Gordillo MD Unavailable Unavailable Bolla, S Duy CAMARILLO Unavailable Unavailable Bolla, S Duy CAMARILLO Unavailable Unavailable Bolla, Jonathan Gordillo MD Unavailable Unavailable Bolla, S Duy CAMARILLO Unavailable Unavailable Bolla, Jonathan Gordillo MD Unavailable Unavailable Bolla, S Duy CAMARILLO Unavailable Unavailable Bolla, S Duy CAMARILLO Unavailable Unavailable Bolla, Jonathan Gordillo MD Unavailable Unavailable Bolla, Jonathan Gordillo MD Unavailable Unavailable Bolla, S Duy CAMARILLO Unavailable Unavailable Bolla, Jonathan Gordillo MD Unavailable Unavailable Bolla, S Duy CAMARILLO Unavailable Unavailable Bolla, Jonathan Gordillo MD Unavailable Unavailable Bolla, S Duy CAMARILLO Unavailable Unavailable Bolla, S Duy CAMARILLO Unavailable Unavailable Bolla, S Duy CAMARILLO Unavailable Unavailable Bolla, S Duy CAMARILLO Unavailable Unavailable Bolla, S Duy CAMARILLO Unavailable Unavailable Bolla, S Duy CAMARILLO Unavailable Unavailable Bolrashad, Jonathan Gordillo MD Unavailable Unavailable Carmelita Jason MD Unavailable Unavailable Carmelita Jason MD Unavailable Unavailable Carmelita Jason MD Unavailable Unavailable Carmelita Jason MD Unavailable Unavailable Carmelita Jason MD Unavailable Unavailable Ali, Carmelita MD Unavailable Unavailable Ali, Carmelita MD Unavailable Unavailable Ali, Carmelita MD Unavailable Unavailable Ali, Carmelita MD Unavailable Unavailable Ali, Carmelita MD Unavailable Unavailable Ali, Carmelita MD Unavailable Unavailable Ali, Carmelita MD Unavailable Unavailable Ali, Carmelita MD Unavailable Unavailable Ali, Carmelita MD Unavailable Unavailable Ali, Carmelita MD Unavailable Unavailable Ali, Carmelita MD Unavailable Unavailable Ali, Carmelita MD Unavailable Unavailable Ali, Carmelita MD Unavailable Unavailable Ali, Carmelita MD Unavailable Unavailable Ali, Carmelita MD Unavailable Unavailable Ali, Carmelita MD Unavailable Unavailable Ali, Carmelita MD Unavailable Unavailable Ali, Carmelita MD Unavailable Unavailable Ali, Carmelita MD Unavailable Unavailable Ali, Carmelita MD Unavailable Unavailable Ali, Carmelita MD Unavailable Unavailable Ali, Carmelita MD Unavailable Unavailable Ali, Carmelita MD Unavailable Unavailable Ali, Carmelita MD Unavailable Unavailable Ali, Carmelita MD Unavailable Unavailable Ali, Carmelita MD Unavailable Unavailable Ali, Carmelita MD Unavailable Unavailable Ali, Carmelita MD Unavailable Unavailable Ali, Carmelita MD Unavailable Unavailable Ali, Carmelita MD Unavailable Unavailable Ali, Carmelita MD Unavailable Unavailable Ali, Carmelita MD Unavailable Unavailable Ali, Carmelita MD Unavailable Unavailable Ali, Carmelita MD Unavailable Unavailable Ali, Carmelita MD Unavailable Unavailable Ali, Carmelita MD Unavailable Unavailable Ali, Carmelita MD Unavailable Unavailable Ali, Carmelita MD Unavailable Unavailable Ali, Carmelita MD Unavailable Unavailable Ali, Carmelita MD Unavailable Unavailable Ali, Carmelita MD Unavailable Unavailable Ali, Carmelita MD Unavailable Unavailable Ali, Carmelita MD Unavailable Unavailable Ali, Carmelita MD Unavailable Unavailable SALCIDO, M CHASIDY PA Unavailable Unavailable SALCIDO, M CHASIDY PA Unavailable Unavailable SALCIDO, M CHASIDY PA Unavailable Unavailable SALCIDO, M CHASIDY PA Unavailable Unavailable SALCIDO, M CHASIDY PA Unavailable Unavailable SALCIDO, M CHASIDY PA Unavailable Unavailable SALCIDO, M CHASIDY PA Unavailable Unavailable SALCIDO, M CHASIDY PA Unavailable Unavailable SALCIDO, M CHASIDY PA Unavailable Unavailable SALCIDO, M CHASIDY PA Unavailable Unavailable SALCIDO, M CHASIDY PA Unavailable Unavailable SALCIDO, M CHASIDY PA Unavailable Unavailable SALCIDO, M CHASIDY PA Unavailable Unavailable SALICDO, M CHASIDY PA Unavailable Unavailable SALCIDO, M CHASIDY PA Unavailable Unavailable SALCIDO, M CHASIDY PA Unavailable Unavailable SALCIDO, M CHASIDY PA Unavailable Unavailable SALCIDO, M CAHSIDY PA Unavailable Unavailable SALCIDO, M CHASIDY PA Unavailable Unavailable SALCIDO, M CHASIDY PA Unavailable Unavailable SALCIDO, M CHASIDY PA Unavailable Unavailable SALCIDO, M CHASIDY PA Unavailable Unavailable SALCIDO, M CHASIDY PA Unavailable Unavailable SALCIDO, M CHASIDY PA Unavailable Unavailable SALCIDO, M CHASIDY PA Unavailable Unavailable SALCIDO, M CHASIDY PA Unavailable Unavailable SALCIDO, M CHASIDY PA Unavailable Unavailable SALCIDO, M CHASIDY PA Unavailable Unavailable SALCIDO, M CHASIDY PA Unavailable Unavailable SALCIDO, M CHASIDY PA Unavailable Unavailable SALCIDO, M CHASIDY PA Unavailable Unavailable SALCIDO, M CHASIDY PA Unavailable Unavailable SALCIDO, M CHASIDY PA Unavailable Unavailable Estrada, L Mir CAMARILLO Unavailable Unavailable Estrada, L Mir CAMARILLO Unavailable Unavailable Estrada, L Mir CAMARILLO Unavailable Unavailable Estrada, L Mir CAMARILLO Unavailable Unavailable Estrada, L Mir CAMARILLO Unavailable Unavailable Estrada, L Mir CAMARILLO Unavailable Unavailable Estrada, L Mir CAMARILLO Unavailable Unavailable Estrada, L Mir CAMARILLO Unavailable Unavailable Estrada, L Mir CAMARILLO Unavailable Unavailable Estrada, L Mir CAMARILLO Unavailable Unavailable Estrada, L Mir CAMARILLO Unavailable Unavailable Estrada, L Mir CAMARILLO Unavailable Unavailable Estrada, L Mir CAMARILLO Unavailable Unavailable Estrada, L Mir CAMARILLO Unavailable Unavailable Estrada, L Mir CAMARILLO Unavailable Unavailable Estrada, L Mir CAMARILLO Unavailable Unavailable Estrada, L Mir CAMARILLO Unavailable Unavailable Estrada, L Mir CAMARILLO Unavailable Unavailable Estrada, L Mir CAMARILLO Unavailable Unavailable Esrtada, L Mir CAMARILLO Unavailable Unavailable Estrada, L Mir CAMARILLO Unavailable Unavailable Estrada, L Mir CAMARILLO Unavailable Unavailable Estrada, L Mir CAMARILLO Unavailable Unavailable Estrada, L Mir CAMARILLO Unavailable Unavailable Estrada, L Mir CAMARILLO Unavailable Unavailable Estrada, L Mir CAMARILLO Unavailable Unavailable Estrada, L Mir CAMARILLO Unavailable Unavailable Estrada, Akil Hester MD Unavailable Unavailable Estrada, L Mir CAMARILLO Unavailable Unavailable Estrada, L Mir CAMARILLO Unavailable Unavailable Estrada, Akil Hester MD Unavailable Unavailable Estrada, L Mir CAMARILLO Unavailable Unavailable Estrada, L Mir CAMARILLO Unavailable Unavailable Estrada, Akil Hester MD Unavailable Unavailable Estrada, L Mir CAMARILLO Unavailable Unavailable Estrada, Akil Hester MD Unavailable Unavailable Estrada, Akil Hester MD Unavailable Unavailable Estrada, L Mir CAMARILLO Unavailable Unavailable Estrada, L Mir CAMARILLO Unavailable Unavailable Estrada, L Mir CAMARILLO Unavailable Unavailable Estrada, L Mir CAMARILLO Unavailable Unavailable Estrada, L Mir CAMARILLO Unavailable Unavailable Estrada, L Mir CAMARILLO Unavailable Unavailable Estrada, L Mir CAMARILLO Unavailable Unavailable Estrada, Akil Hester MD Unavailable Unavailable Estrada, Akil Hester MD Unavailable Unavailable Estrada, Akil Hester MD Unavailable Unavailable Re-disclosure Warning The records that you are about to access may contain information from federally-assisted alcohol or drug abuse programs. If such information is present, then the following federally mandated warning applies: This information has been disclosed to you from records protected by federal confidentiality rules (42 CFR part 2). The federal rules prohibit you from making any further disclosure of this information unless further disclosure is expressly permitted by the written consent of the person to whom it pertains or as otherwise permitted by 42 CFR part 2. A general authorization for the release of medical or other information is NOT sufficient for this purpose. The Federal rules restrict any use of the information to criminally investigate or prosecute any alcohol or drug abuse patient.The records that you are about to access may contain highly sensitive health information, the redisclosure of which is protected by Article 27-F of the [facility] Public Health law. If you continue you may have access to information: Regarding HIV / AIDS; Provided by facilities licensed or operated by the [facility] Office of Mental Health; or Provided by the [facility] Office for People With Developmental Disabilities. If such information is present, then the following [facility] mandated warning applies: This information has been disclosed to you from confidential records which are protected by state law. State law prohibits you from making any further disclosure of this information without the specific written consent of the person to whom it pertains, or as otherwise permitted by law. Any unauthorized further disclosure in violation of state law may result in a fine or assisted sentence or both. A general authorization for the release of medical or other information is NOT sufficient authorization for further disc losure. Allergies and Adverse Reactions Type Description Substance Reaction Status Data Source(s ) Drug allergy Chantix varenicline depression Active eCW1 ([facility]) Wellbutrin Wellbutrin Wellbutrin Nightmares Active eCW1 ([facility]) Wellbutrin Wellbutrin Wellbutrin Nightmares Active eCW1 ([facility]) Wellbutrin Wellbutrin Wellbutrin Nightmares Active eCW1 ([facility]) Wellbutrin Wellbutrin Wellbutrin Nightmares Active eCW1 ([facility]) Wellbutrin Wellbutrin Wellbutrin Nightmares Active eCW1 ([facility]) Family History Family Member Name Family Member Gender Family Member Status Date o f Status Description Data Source(s) Unknown Unknown Problem MEDENT ([facility]) Unknown Male Problem MEDENT ([facility]) () - age 57 Encounters Encounter Providers Location Date Indications Data Source(s ) Ely Mcmullen, MASSAGE COORDINATOR: [id number], [place] [address], Ph. Attender: Ely VILLALOBOS [facility] 03/14/2020 12:00:00 AM EST ATHE NA ([facility]) Outpatient Attender: Carmelita Jason MD [facility] 03/07/2020 08:00:00 AM EST MEDENT ([facility]) Unknown [address] [facility], [place] [address] 03/06/2020 12:00:00 AM EST eCW1 [facility] Unknown [address] [facility] [address] 02/23/2020 12:00:00 AM EST eCW1 ([facility]) Duy Valente MD: [id number], [place] [address], Ph. Attender: Duy Valente MD [facility] 02/20/2020 12:00:00 AM EST POLO ([facility]) Duy Valente MD: [id number], [place] [address], Ph. Attender: Duy Valente MD [facility] 02/20/2020 12:00:00 AM EST POLO ([facility]) Office Visit Attender: CHASIDY Johnston/Estiven/Amandeep/Luan proctor 01/30/2020 01:00:00 PM EST MEDENT ([facility]) Ely Mcmullen, MASSAGE COORDINATOR: [id number], [place] [address], Ph. Attender: Ely Mcmullen [facility] - [facility] 01/25/2020 12:00:00 AM EST ATHE NA ([facility]) Ely Mcmullen, MASSAGE COORDINATOR: [id number], [place] [address], Ph. Attender: Ely Mcmullen [facility] - [facility] 01/25/2020 12:00:00 AM EST ATHE NA ([facility]) Ely Mcmullen, MASSAGE COORDINATOR: [address], [place] [address], Ph. Attender: Ely Mcmullen [facility] - [facility] 01/25/2020 12:00:00 AM EST ATHE NA ([facility]) Unknown [address] [facility], [facility] [address] 01/10/2020 12:00:00 AM EST eCW1 ([facility]) Duy Valente MD: [address], [place] [address], Ph. Attender: Duy Valente MD ID - [facility] 01/05/2020 12:00:00 AM EST POLO ([facility]) Duy Valente MD: [id number], [place] [address], Ph. Attender: Duy Valente MD ID - [facility] 01/05/2020 12:00:00 AM EST POLO ([facility]) Duy Valente MD: [address], [place] [address], Ph. Attender: Duy Valente MD ID - [facility] 01/05/2020 12:00:00 AM EST POLO ([facility]) Duy Valente MD: [address], [place] [address], Ph. Attender: Duy Valente MD ID - [facility] 01/05/2020 12:00:00 AM EST POLO ([facility]) Duy Valente MD: [address], [address], [place] [address], Ph. Attender: Duy Valente MD ID - [facility] 01/05/2020 12:00:00 AM EST POLO ([facility]) Unknown [address] [facility] [address] 01/02/2020 12:00:00 AM EST eCW1 ([facility]) Duy Valente MD: [address], [place] [address], Ph. [phone] Attender: Duy MULTANI - [facility] 12/30/2019 12:00:00 AM EST POLO ([facility]) Duy Valente MD: [address], [place] [address], Ph. [phone] Attender: Duy MULTANI - [facility] 12/30/2019 12:00:00 AM EST POLO ([facility]) Duy Valente MD: [address], [place] [address], Ph. [phone] Attender: Duy MULTANI - [facility] 12/30/2019 12:00:00 AM EST POLO ([facility]) Duy Valente MD: [address], [place] [address], Ph. [phone] Attender: Duy Valente MD ID - [facility] 12/30/2019 12:00:00 AM EST POLO ([facility]) Duy Valente MD: [address], [place] [address], Ph. [phone] Attender: Duy Valente MD ID - [facility] 12/30/2019 12:00:00 AM EST POLO ([facility]) Duy Valente MD: [address], [place] [address], Ph. [phone] Attender: Duy Valente MD ID - [facility] 12/30/2019 12:00:00 AM EST POLO ([facility]) Ely Karen Mcmullen, MASSAGE COORDINATOR: [address], [facility] [place] [address], Ph. Attender: Ely Mcmullen [facility] [facility] 12/28/2019 12:00:00 AM EST ATHE NA ([facility]) Ely Mcmullen, MASSAGE COORDINATOR: [address], [place] [address], Ph. Attender: Ely Mcmullen [facility] - [facility] 12/28/2019 12:00:00 AM EST ATHE NA ([facility]) Ely Mcmullen, MASSAGE COORDINATOR: [address], [place] [address], Ph. Attender: Ely Mcmullen [facility] - [facility] 12/28/2019 12:00:00 AM EST ATHE NA ([facility]) Ely Mcmullen, MASSAGE COORDINATOR: [address], [place] [address], Ph. Attender: Ely Mcmullen [facility] - [facility] 12/28/2019 12:00:00 AM EST ATHE NA ([facility]) Ely Mcmullen, MASSAGE COORDINATOR: [address], [place] [address], Ph. Attender: Ely Mcmullen [facility] - [facility] 12/28/2019 12:00:00 AM EST ATHE NA ([facility]) Ely Mcmullen, MASSAGE COORDINATOR: [address], [place] [address], Ph. Attender: Ely Mcmullen [facility] - [facility] 12/28/2019 12:00:00 AM EST ATHE NA ([facility]) Unknown [address] [facility] [address] 12/28/2019 12:00:00 AM EST eCW1 ([facility]) Ely Mcmullen, MASSAGE COORDINATOR: [address], [place] [address], Ph. Attender: Ely Mcmullen [facility] - [facility] 12/28/2019 12:00:00 AM EST ATHE NA ([facility]) Unknown [address] [facility] [address] 12/26/2019 12:00:00 AM EST eCW1 ([facility]) Duy Valente MD: 01531 [address], [facility] [place] [address], Ph. Attender: Duy Valente MD ID - [facility] - [facility] 12/15/2019 12:00:00 AM EDT POLO ([facility]) Duy Valente MD: 14674 [address], [address], [place] [address], Ph. Attender: Duy Valente MD ID - [facility] 12/15/2019 12:00:00 AM EDT POLO ([facility]) Duy Valente MD: 91078 [address], [address], [place] [address], Ph. Attender: Duy MULTANI - [facility] 12/15/2019 12:00:00 AM EDT POLO ([facility]) Duy Valente MD: 60294 [address], [place] [address], Ph. Attender: Duy MULTANI - [facility] 12/15/2019 12:00:00 AM EDT POLO ([facility]) Duy Valente MD: 99774 [address], [address], [place] [address], Ph. Attender: Duy MULTANI - [facility] 12/15/2019 12:00:00 AM EDT POLO ([facility]) Duy Valente MD: 80216 [address], [place] [address], Ph. Attender: Duy MULTANI - [facility] 12/15/2019 12:00:00 AM EDT POLO ([facility]) Duy Valente MD: 95096 [address], [place] [address], Ph. Attender: Duy MULTANI - [facility] 12/15/2019 12:00:00 AM EDT POLO ([facility]) Duy Valente MD: 85438 [address], [address], [place] [address], Ph. Attender: Duy Valente MD ID - [facility] 12/15/2019 12:00:00 AM EDT POLO ([facility]) Duy Valente MD: 46623 [address], [address], [place] [address], Ph. Attender: Duy Valente MD ID - [facility] 12/14/2019 12:00:00 AM EDT POLO ([facility]) Duy Valente MD: 33935 [address], [address], [place] [address], Ph. Attender: Duy Valente MD ID - [facility] 12/14/2019 12:00:00 AM EDT POLO ([facility]) Duy Valente MD: 67911 [address], [address], [place] [address], Ph. Attender: Duy MULTANI - [facility] 12/14/2019 12:00:00 AM EDT POLO ([facility]) Duy Valente MD: 88495 [address], [address], [place] [address], Ph. Attender: Duy MULTANI - [facility] 12/14/2019 12:00:00 AM EDT POLO ([facility]) Duy Valente MD: 63416 [address], [address], [place] [address], Ph. Attender: Duy Valente MD ID - [facility] 12/14/2019 12:00:00 AM EDT POLO ([facility]) Duy Valente MD: 89857 [address], [address], [place] [address], Ph. Attender: Duy Valente MD ID - [facility] 12/14/2019 12:00:00 AM EDT POLO ([facility]) Duy Valente MD: 91975 [address], [address], [place] [address], Ph. Attender: Duy MULTANI - [facility] - [facility] 12/14/2019 12:00:00 AM EDT POLO ([facility]) uDy Valente MD: 34904 [address], [place] [address], Ph. Attender: Duy MULTANI - [facility] 12/14/2019 12:00:00 AM EDT POLO ([facility]) Duy Valente MD: 79637 [address], [place] [address], Ph. Attender: Duy MULTANI - [facility] 12/14/2019 12:00:00 AM EDT POLO ([facility]) Outpatient [address] [facility] [address] 12/13/2019 12:00:00 AM EDT eC ([facility]) Duy Valente MD: 09692 [address], [place] [address], Ph. [phone] Attender: Duy Valente MD ID - [facility] 12/09/2019 12:00:00 AM EDT POLO ([facility]) Duy Valente MD: 85658 [address], [place] [address], Ph. [phone] Attender: Duy MULTANI - [facility] 12/09/2019 12:00:00 AM EDT POLO ([facility]) Duy Valente MD: 70570 [address], [address], [place] [address], Ph. [phone] Attender: Duy Valente MD ID - [facility] - [facility] 12/09/2019 12:00:00 AM EDT POLO ([facility]) Duy Valente MD: 15160 [address], [address], [place] [address], Ph. [phone] Attender: Duy Valente MD ID - [facility] - [facility] 12/09/2019 12:00:00 AM EDT POLO ([facility]) Duy Valente MD: 90725 [address], [address], [place] [address], Ph. [phone] Attender: Duy MULTANI - [facility] 12/09/2019 12:00:00 AM EDT POLO ([facility]) Duy Valente MD: 76044 [address], [address], [place] [address], Ph. [phone] Attender: Duy MULTANI - [facility] - [facility] 12/09/2019 12:00:00 AM EDT POLO ([facility]) Duy Valente MD: 69422 [address], [address], [place] [address], Ph. [phone] Attender: Duy MULTANI - [facility] - [facility] 12/09/2019 12:00:00 AM EDT POLO ([facility]) Duy Valente MD: 06522 [address], [address], [place] [address], Ph. [phone] Attender: Duy MULTANI - [facility] 12/09/2019 12:00:00 AM EDT POLO ([facility]) Duy Valente MD: 69757 [address], [address], [place] [address], Ph. [phone] Attender: Duy Valente MD ID - [facility] 12/09/2019 12:00:00 AM EDT POLO ([facility]) Duy Valente MD: 58066 [address], [address], [place] [address], Ph. [phone] Attender: Duy Valente MD ID - [facility] 12/09/2019 12:00:00 AM EDT POLO ([facility]) Ely Mcmullen, MASSAGE COORDINATOR: [address]34 [address], [place] [address], Ph. Attender: Ely Mcmullen [facility] 11/22/2019 12:00:00 AM EDT ATHRachael NA ([facility]) Ely Mcmullen, MASSAGE COORDINATOR: [address]47 [address], [place] [address], Ph. Attender: Ely Mcmullen [facility] - [facility] 11/22/2019 12:00:00 AM EDT ATHRachael ERWIN ([facility]) Ely Mcmullen, MASSAGE COORDINATOR: [address]50 [address], [place] [address], Ph. Attender: Ely Mcmullen [facility] - [facility] 11/22/2019 12:00:00 AM EDT ATHRachael NA ([facility]) Ely Mcmullen, MASSAGE COORDINATOR: 53862 [address], [place] [address], Ph. Attender: Ely Mcmullen [facility] - [facility] 11/22/2019 12:00:00 AM EDT ATHE YAIMA ([facility]) Ely Mcmullen, MASSAGE COORDINATOR: 74275 [address], [address], [place] [address], Ph. Attender: Ely Mcmullen [facility] - [facility] 11/22/2019 12:00:00 AM EDT ATHE NA ([facility]) Ely Mcmullen, MASSAGE COORDINATOR: 88255 [address], [address], [place] [address], Ph. Attender: Ely Mcmullen [facility] - [facility] 11/22/2019 12:00:00 AM EDT ATHE NA ([facility]) Ely Mcmullen, MASSAGE COORDINATOR: 64076 [address], [place] [address], Ph. Attender: Elyrachael Goinssara [facility] - [facility] 11/22/2019 12:00:00 AM EDT ATHE NA ([facility]) Ely Mcmullen, MASSAGE COORDINATOR: [address]9422 [address], [address], [place] [address], Ph. Attender: Ely Mcmullen [facility] - [facility] 11/22/2019 12:00:00 AM EDT ATHE NA ([facility]) Ely Mcmullen, MASSAGE COORDINATOR: 07319 [address], [address], [place] [address], Ph. Attender: Ely Mcmullen [facility] - [facility] 11/22/2019 12:00:00 AM EDT ATHE NA ([facility]) Ely Mcmullen, MASSAGE COORDINATOR: 02266 [address], [address], [place] [address], Ph. Attender: Ely Mcmullen [facility] - [facility] 11/22/2019 12:00:00 AM EDT ATHE YAIMA ([facility]) Ely Mcmullen, MASSAGE COORDINATOR: 50553 [address], [place] [address], Ph. Attender: Ely Mcmullen [facility] - [facility] 11/22/2019 12:00:00 AM EDT ATHRachael NA ([facility]) Unknown [address] [facility] [address] 11/21/2019 12:00:00 AM EDT eC ([facility]) Duy Valente MD: 23884 [address], [facility] [place] [address], Ph. Attender: Duy Valente MD ID - [facility] 10/18/2019 12:00:00 AM EDT POLO ([facility]) Duy Valente MD: 20752 [address], [place] [address], Ph. Attender: Duy Valente MD ID - [facility] 10/18/2019 12:00:00 AM EDT POLO ([facility]) Duy Valente MD: 76337 [address], [place] [address], Ph. Attender: Duy MULTANI - [facility] 10/18/2019 12:00:00 AM EDT POLO ([facility]) Duy Valente MD: 65882 [address], [place] [address], Ph. Attender: Duy Valente MD ID - [facility] 10/18/2019 12:00:00 AM EDT POLO ([facility]) Duy Valente MD: 88853 [address], [address], [place] [address], Ph. Attender: Duy Valente MD ID - [facility] 10/18/2019 12:00:00 AM EDT POLO ([facility]) Duy Valente MD: 11251 [address], [address], [place] [address], Ph. Attender: Duy Valente MD ID - [facility] 10/18/2019 12:00:00 AM EDT POLO ([facility]) Duy Valente MD: 16421 [address], [address], [place] [address], Ph. Attender: Duy Valente MD ID - [facility] 10/18/2019 12:00:00 AM EDT POLO ([facility]) Duy Valente MD: 73578 [address], [address], [place] [address], Ph. Attender: Duy Valente MD ID - [facility] 10/18/2019 12:00:00 AM EDT POLO ([facility]) Duy Valente MD: 86502 [address], [address], [place] [address], Ph. Attender: Duy Valente MD ID - [facility] 10/18/2019 12:00:00 AM EDT POLO ([facility]) Duy Valente MD: 05952 [address], [address], [place] [address], Ph. Attender: Duy Valente MD ID - [facility] 10/18/2019 12:00:00 AM EDT POLO ([facility]) Duy Valente MD: 18747 [address], [address], [place] [address], Ph. Attender: Duy Valente MD ID - [facility] 10/18/2019 12:00:00 AM EDT POLO ([facility]) Duy Valente MD: 83272 [address], [address], [place] [address], Ph. Attender: Duy Valente MD ID - [facility] 10/18/2019 12:00:00 AM EDT POLO ([facility]) Ely Mcmullen, MASSAGE COORDINATOR: 66595 [address], [address], [place] [address], Ph. Attender: Ely Mcmullen [facility] - [facility] 10/06/2019 12:00:00 AM EDT ATHE NA ([facility]) Ely Mcmullen, MASSAGE COORDINATOR: 95538 [address], [address], [place] [address], Ph. Attender: Ely Mcmullen [facility] - [facility] 10/06/2019 12:00:00 AM EDT ATHRachael NA ([facility]) Ely Mcmullen, MASSAGE COORDINATOR: 06951 [address], [address], [place] [address], Ph. Attender: Ely Mcmullen [facility] - [facility] 10/06/2019 12:00:00 AM EDT ATHE NA ([facility]) Ely Mcmullen, MASSAGE COORDINATOR: 91858 [address], [address], [place] [address], Ph. Attender: Ely Mcmullen [facility] - [facility] 10/06/2019 12:00:00 AM EDT ATHE NA ([facility]) Ely Mcmullen, MASSAGE COORDINATOR: 84686 [address], [place] [address], Ph. Attender: Ely Mcmullen [facility] - [facility] 10/06/2019 12:00:00 AM EDT ATHE NA ([facility]) Ely Mcmullen, MASSAGE COORDINATOR: 18732 [address], [place] [address], Ph. Attender: Ely Mcmullen [facility] - [facility] 10/06/2019 12:00:00 AM EDT ATHE NA ([facility]) Ely Mcmullen, MASSAGE COORDINATOR: 41373 [address], [place] [address], Ph. Attender: Ely Mcmullen [facility] - [facility] 10/06/2019 12:00:00 AM EDT ATHE NA ([facility]) Ely Mcmullen, MASSAGE COORDINATOR: 97256 [address], [place] [address], Ph. Attender: Ely Mcmullen [facility] - [facility] 10/06/2019 12:00:00 AM EDT ATHE NA ([facility]) Ely Mcmullen, MASSAGE COORDINATOR: 20638 [address], [place] [address], Ph. Attender: Ely Mcmullen [facility] - [facility] 10/06/2019 12:00:00 AM EDT ATHE NA ([facility]) Ely Mcmullen, MASSAGE COORDINATOR: 85798 [address], [place] [address], Ph. Attender: Ely Mcmullen [facility] - [facility] 10/06/2019 12:00:00 AM EDT ATHE NA ([facility]) Ely Mcmullen, MASSAGE COORDINATOR: 67619 [address], [place] [address], Ph. Attender: Ely Mcmullen [facility] - [facility] 10/06/2019 12:00:00 AM EDT ATHE NA ([facility]) Ely Mcmullen, MASSAGE COORDINATOR: 14099 [address], [address], [place] [address], Ph. Attender: Ely Mcmullen [facility] - [facility] 10/06/2019 12:00:00 AM EDT ATHE NA ([facility]) Ely Mcmullen, MASSAGE COORDINATOR: 09860 [address], [place] [address], Ph. Attender: Ely Mcmullen [facility] - [facility] 10/06/2019 12:00:00 AM EDT ATHE NA ([facility]) Office Visit Attender: CHASIDY Johnston/Estiven/Amandeep/Rein dl 09/28/2019 02:00:00 PM EDT MEDJOSHUA ([facility]) Duy Valente MD: 10802 [address], [address], [place] [address], Ph. Attender: Duy Valente MD ID - [facility] 09/20/2019 12:00:00 AM EDT POLO ([facility]) Duy Valente MD: 17840 [address], [address], [place] [address], Ph. Attender: Duy Valente MD ID - [facility] 09/20/2019 12:00:00 AM EDT POLO ([facility]) Duy Valente MD: 57634 [address], [address], [place] [address], Ph. Attender: Duy MULTANI - [facility] 09/20/2019 12:00:00 AM EDT POLO ([facility]) Duy Valente MD: 94551 [address], [address], [place] [address], Ph. Attender: Duy MULTANI - [facility] 09/20/2019 12:00:00 AM EDT POLO ([facility]) Duy Valente MD: 84778 [address], [address], [place] [address], Ph. Attender: Duy MULTANI - [facility] 09/20/2019 12:00:00 AM EDT POLO ([facility]) Duy Valente MD: 25994 [address], [address], [place] [address], Ph. Attender: Duy MULTANI - [facility] 09/20/2019 12:00:00 AM EDT POLO ([facility]) Duy Valente MD: 34969 [address], [address], [place] [address], Ph. Attender: Duy MULTANI - [facility] 09/20/2019 12:00:00 AM EDT POLO ([facility]) Duy Valente MD: 15586 [address], [address], [place] [address], Ph. Attender: Duy MULTANI - [facility] 09/20/2019 12:00:00 AM EDT POLO ([facility]) Duy Valente MD: 99324 [address], [address], [place] [address], Ph. Attender: Duy MULTANI - [facility] 09/20/2019 12:00:00 AM EDT POLO ([facility]) Duy Valente MD: 33057 [address], [address], [place] [address], Ph. Attender: Duy MULTANI - [facility] 09/20/2019 12:00:00 AM EDT POLO ([facility]) Duy Valente MD: 62070 [address], [address], [place] [address], Ph. Attender: Duy MULTANI - [facility] 09/20/2019 12:00:00 AM EDT POLO ([facility]) Duy Valente MD: 68654 [address], [address], [place] [address], Ph. Attender: Duy MULTANI - [facility] 09/20/2019 12:00:00 AM EDT POLO ([facility]) Duy Valente MD: 98461 [address], [address], [place] [address], Ph. Attender: Duy MULTANI - [facility] 09/20/2019 12:00:00 AM EDT POLO ([facility]) Duy Valente MD: 45863 [address], [address], [place] [address], Ph. Attender: Duy MULTANI - [facility] 09/20/2019 12:00:00 AM EDT POLO ([facility]) Ely Mcmullen, MASSAGE COORDINATOR: 16155 [address], [place] [address], Ph. Attender: Ely Mcmullen [facility] - [facility] 09/09/2019 12:00:00 AM EDT ATHE NA ([facility]) Ely Mcmullen, MASSAGE COORDINATOR: 06389 [address], [address], [place] [address], Ph. Attender: Ely Jeanekoffisara [facility] - [facility] 09/09/2019 12:00:00 AM EDT ATHE NA ([facility]) Ely Mcmullen, MASSAGE COORDINATOR: 69836 [address], [place] [address], Ph. Attender: Ely Goinssara [facility] - [facility] 09/09/2019 12:00:00 AM EDT ATHE NA ([facility]) Ely Mcmullen, MASSAGE COORDINATOR: 20572 [address], [address], [place] [address], Ph. Attender: Ely Jeanekoffisara [facility] - [facility] 09/09/2019 12:00:00 AM EDT ATHE NA ([facility]) Ely Mcmullen, MASSAGE COORDINATOR: 62122 [address], [address], [place] [address], Ph. Attender: Ely Jeanekoffisara [facility] - [facility] 09/09/2019 12:00:00 AM EDT ATHE NA ([facility]) Ely Jones Jeanestef, MASSAGE COORDINATOR: 79198 [address], [address], [place] [address], Ph. Attender: Ely Mcmullen [facility] - [facility] 09/09/2019 12:00:00 AM EDT ATHE NA ([facility]) Ely Mcmullen, MASSAGE COORDINATOR: 54505 [address], [place] [address], Ph. Attender: [facility]ullen [facility] 09/09/2019 12:00:00 AM EDT ATHE NA ([facility]) Ely Mcmullen, MASSAGE COORDINATOR: 20783 [address], [place] [address], Ph. Attender: Ely Mcmullen [facility] - [facility] 09/09/2019 12:00:00 AM EDT ATHE NA ([facility]) Ely Mcmullen, MASSAGE COORDINATOR: 43496 [address], [place] [address], Ph. Attender: Ely Mcmullen [facility] - [facility] 09/09/2019 12:00:00 AM EDT ATHE NA ([facility]) Ely Mcmullen, MASSAGE COORDINATOR: 57541 [address], [place] [address], Ph. Attender: Ely Mcmullen [facility] - [facility] 09/09/2019 12:00:00 AM EDT ATHE NA ([facility]) Ely Mcmullen, MASSAGE COORDINATOR: [address], [place] [address], Ph. Attender: Ely Mcmullen [facility] - [facility] 09/09/2019 12:00:00 AM EDT ATHE NA ([facility]) Ely Mcmullen, MASSAGE COORDINATOR: [address], [address], [place] [address], Ph. Attender: Ely Mcmullen [facility] - [facility] 09/09/2019 12:00:00 AM EDT ATHE NA ([facility]) Ely Mcmullen, MASSAGE COORDINATOR: [address], [address], [place] [address], Ph. Attender: Ely Mcmullen [facility] - [facility] 09/09/2019 12:00:00 AM EDT ATHE NA ([facility]) Ely Mcmullen, MASSAGE COORDINATOR: [address], [address], [place] [address], Ph. Attender: Ely Mcmullen [facility] - [facility] 09/09/2019 12:00:00 AM EDT ATHE NA ([facility]) Ely Mcmullen, MASSAGE COORDINATOR: [address], [address], [place] [address], Ph. Attender: Ely Mcmullen [facility] - [facility] 09/09/2019 12:00:00 AM EDT ATHE NA ([facility]) Duy Valente MD: [address], [address], [place] [address], Ph. Attender: Duy Valente MD ID - [facility] 09/01/2019 12:00:00 AM EDT POLO ([facility]) Duy Valente MD: [address]19 [address], [address], [place] [address], Ph. Attender: Duy Valente MD ID - [facility] 09/01/2019 12:00:00 AM EDT POLO ([facility]) Duy Valente MD: [address]24 [address], [address], [place] [address], Ph. Attender: Duy Valente MD ID - [facility] 09/01/2019 12:00:00 AM EDT POLO ([facility]) Duy Valente MD: [address]603 [address], [address], [place] [address], Ph. Attender: Duy Valente MD ID - [facility] 09/01/2019 12:00:00 AM EDT POLO ([facility]) Duy Valente MD: 45897 [address], [address], [place] [address], Ph. Attender: Duy Valente MD ID - [facility] 09/01/2019 12:00:00 AM EDT POLO ([facility]) Duy Valente MD: 24916 [address], [address], [place] [address], Ph. Attender: Duy MULTANI - [facility] 09/01/2019 12:00:00 AM EDT POLO ([facility]) Duy Valente MD: 61668 [address], [address], [place] [address], Ph. Attender: Duy Valente MD ID - [facility] 09/01/2019 12:00:00 AM EDT POLO ([facility]) Duy Valente MD: 33050 [address], [address], [place] [address], Ph. Attender: Duy MULTANI - [facility] 09/01/2019 12:00:00 AM EDT POLO ([facility]) Duy Valente MD: [address]1109 [address], [address], [place] [address], Ph. Attender: Duy MULTANI - [facility] 09/01/2019 12:00:00 AM EDT POLO ([facility]) Duy Valente MD: 05135 [address], [address], [place] [address], Ph. Attender: Duy MULTANI - [facility] 09/01/2019 12:00:00 AM EDT POLO ([facility]) Duy Valente MD: 87241 [address], [address], [place] [address], Ph. Attender: Duy MULTANI - [facility] 09/01/2019 12:00:00 AM EDT POLO ([facility]) Duy Valente MD: 24974 [address], [address], [place] [address], Ph. Attender: Duy MULTANI - [facility] 09/01/2019 12:00:00 AM EDT POLO ([facility]) Duy Valente MD: 06575 [address], [address], [place] [address], Ph. Attender: Duy MULTANI - [facility] 09/01/2019 12:00:00 AM EDT POLO ([facility]) Duy Valente MD: 71183 [address], [address], [place] [address], Ph. Attender: Duy MULTANI - [facility] 09/01/2019 12:00:00 AM EDT POLO ([facility]) Duy Valente MD: 96779 [address], [address], [place] [address], Ph. Attender: Duy MULTANI - [facility] 09/01/2019 12:00:00 AM EDT POLO ([facility]) Duy Valente MD: [address]24 [address], [address], [place] [address], Ph. Attender: Duy MULTANI - [facility] 09/01/2019 12:00:00 AM EDT POLO ([facility]) Outpatient Attender: Mir Estrada MD Physical Therapy 08/31/2019 0 1:00:00 PM EDT MEDENT ([facility]) Duy Valente MD: [address]19 [address], [address], [place] [address], Ph. [phone] Attender: Duy MULTANI - [facility] 08/29/2019 12:00:00 AM EDT POLO ([facility]) Duy Valente MD: 51162 [address], [address], [place] [address], Ph. [phone] Attender: Duy MULTANI - [facility] 08/29/2019 12:00:00 AM EDT POLO ([facility]) Duy Valente MD: 33918 [address], [address], [place] [address], Ph. [phone] Attender: Duy MULTANI - [facility] 08/29/2019 12:00:00 AM EDT POLO ([facility]) Duy Valente MD: 00738 [address], [address], [place] [address], Ph. [phone] Attender: Duy Valente MD ID - [facility] 08/29/2019 12:00:00 AM EDT POLO ([facility]) Duy Valente MD: 30129 [address], [address], [place] [address], Ph. [phone] Attender: Duy Valente MD ID - [facility] 08/29/2019 12:00:00 AM EDT POLO ([facility]) Duy Valente MD: 10413 [address], [address], [place] [address], Ph. [phone] Attender: Duy MULTANI - [facility] 08/29/2019 12:00:00 AM EDT POLO ([facility]) Duy Valente MD: 51963 [address], [address], [place] [address], Ph. [phone] Attender: Duy MULTANI - [facility] 08/29/2019 12:00:00 AM EDT POLO ([facility]) Duy Valente MD: 11322 [address], [address], [place] [address], Ph. [phone] Attender: Duy MULTANI - [facility] 08/29/2019 12:00:00 AM EDT POLO ([facility]) Duy Valente MD: 68882 [address], [address], [place] [address], Ph. [phone] Attender: Duy Valente MD ID - [facility] 08/29/2019 12:00:00 AM EDT POLO ([facility]) Duy Valente MD: 29650 [address], [address], [place] [address], Ph. [phone] Attender: Duy MULTANI - [facility] 08/29/2019 12:00:00 AM EDT POLO ([facility]) Duy Valente MD: 74901 [address], [address], [place] [address], Ph. [phone] Attender: Duy Valente MD ID - [facility] 08/29/2019 12:00:00 AM EDT POLO ([facility]) Duy Valente MD: 26126 [address], [address], [place] [address], Ph. [phone] Attender: Duy Valente MD ID - [facility] 08/29/2019 12:00:00 AM EDT POLO ([facility]) Duy Valente MD: 48278 [address], [address], [place] [address], Ph. [phone] Attender: Duy Valente MD ID - [facility] 08/29/2019 12:00:00 AM EDT POLO ([facility]) Duy Valente MD: 99328 [address], [address], [place] [address], Ph. [phone] Attender: Duy Valente MD ID - [facility] 08/29/2019 12:00:00 AM EDT POLO ([facility]) Duy Valente MD: 12673 [address], [address], [place] [address], Ph. [phone] Attender: Duy Valente MD ID - [facility] 08/29/2019 12:00:00 AM EDT POLO ([facility]) Duy Valente MD: 71806 [address], [address], [place] [address], Ph. [phone] Attender: Duy Valente MD ID - [facility] 08/29/2019 12:00:00 AM EDT POLO ([facility]) Duy Valente MD: 89878 [address], [address], [place] [address], Ph. [phone] Attender: Duy Valente MD ID - [facility] 08/29/2019 12:00:00 AM EDT POLO ([facility]) Ely Mcmullen, MASSAGE COORDINATOR: [address], [place] [address], Ph. Attender: Ely Mcmullen [facility] - [facility] 08/16/2019 12:00:00 AM EDT ATHE NA ([facility]) Ely Mcmullen, MASSAGE COORDINATOR: [address]62 [address], [place] [address], Ph. Attender: Ely Mcmullen [facility] 08/16/2019 12:00:00 AM EDT ATHE NA ([facility]) Ely Mcmullen, MASSAGE COORDINATOR: [address], [place] [address], Ph. Attender: Ely Mcmullen [facility] - [facility] 08/16/2019 12:00:00 AM EDT ATHE NA ([facility]) Ely Mcmullen, MASSAGE COORDINATOR: [address], [place] [address], Ph. Attender: Ely Mcmullen [facility] - [facility] 08/16/2019 12:00:00 AM EDT ATHE NA ([facility]) Ely Mcmullen, MASSAGE COORDINATOR: [address], [place] [address], Ph. Attender: Ely Mcmullen [facility] - [facility] 08/16/2019 12:00:00 AM EDT ATHE NA ([facility]) Ely Mcmullen, MASSAGE COORDINATOR: [address]85 [address], [address], [place] [address], Ph. Attender: Ely Mcmullen [facility] - [facility] 08/16/2019 12:00:00 AM EDT ATHE NA ([facility]) Ely Mcmullen, MASSAGE COORDINATOR: [address], [address], [place] [address], Ph. Attender: Ely Jeanekoffisara [facility] - [facility] 08/16/2019 12:00:00 AM EDT ATHE NA ([facility]) Ely Mcmullen, MASSAGE COORDINATOR: [address], [place] [address], Ph. Attender: Ely Jeanekoffisara [facility] - [facility] 08/16/2019 12:00:00 AM EDT ATHE NA ([facility]) Ely Mcmullen, MASSAGE COORDINATOR: 85136 [address], [address], [place] [address], Ph. Attender: Ely Jeanekoffisara [facility] - [facility] 08/16/2019 12:00:00 AM EDT ATHE NA ([facility]) Ely Mcmullen, MASSAGE COORDINATOR: [address]63 [address], [address], [place] [address], Ph. Attender: Ely Benedict [facility] - [facility] 08/16/2019 12:00:00 AM EDT ATHE NA ([facility]) Eyl Mcmullen, MASSAGE COORDINATOR: [address], [address], [place] [address], Ph. Attender: Ely Mcmullen [facility] - [facility] 08/16/2019 12:00:00 AM EDT ATHE NA ([facility]) Ely Mcmullen, MASSAGE COORDINATOR: [address]3954 [address], [facility] [place] [address], Ph. Attender: Ely Mcmullen [facility] - [facility] 08/16/2019 12:00:00 AM EDT ATHE NA ([facility]) Ely Mcmullen, MASSAGE COORDINATOR: 50357 [address], [place] [address], Ph. Attender: Ely Mcmullen [facility] - [facility] 08/16/2019 12:00:00 AM EDT ATHE NA ([facility]) Ely Mcmullen, MASSAGE COORDINATOR: [address]83 [address], [place] [address], Ph. Attender: Ely Mcmullen [facility] - [facility] 08/16/2019 12:00:00 AM EDT ATHE NA ([facility]) Ely Mcmullen, MASSAGE COORDINATOR: [address]42 [address], [facility] [place] [address], Ph. Attender: Ely Mcmullen [facility] - [facility] 08/16/2019 12:00:00 AM EDT ATHE NA ([facility]) Ely Mcmullen, MASSAGE COORDINATOR: 98166 [address], [facility] [place] [address], Ph. Attender: Ely Mcmullen [facility] - [facility] 08/16/2019 12:00:00 AM EDT ATHE NA ([facility]) Ely Jones Benedict, MASSAGE COORDINATOR: 95321 [address], [address], [place] [address], Ph. Attender: Ely Mcmullen [facility] - [facility] 08/16/2019 12:00:00 AM EDT ATHE NA ([facility]) Ely Mcmullen, MASSAGE COORDINATOR: 33988 [address], [address], [place] [address], Ph. Attender: Ely Mcmullen [facility] - [facility] 08/16/2019 12:00:00 AM EDT ATHE NA ([facility]) Ely Mcmullen, MASSAGE COORDINATOR: 30006 [address], [place] [address], Ph. Attender: Ely Mcmullen [facility] - [facility] 07/15/2019 12:00:00 AM EDT ATHE NA ([facility]) Ely Mcmullen, MASSAGE COORDINATOR: 77838 [address], [address], [place] [address], Ph. Attender: Ely Mcmullen [facility] - [facility] 07/15/2019 12:00:00 AM EDT ATHE NA ([facility]) Ely Mcmullen, MASSAGE COORDINATOR: 80752 [address], [address], [place] [address], Ph. Attender: Ely Mcmullen [facility] - [facility] 07/15/2019 12:00:00 AM EDT ATHE NA ([facility]) Ely Mcmullen, MASSAGE COORDINATOR: 54747 [address], [address], [place] [address], Ph. Attender: Ely Jeanekoffisara [facility] - [facility] 07/15/2019 12:00:00 AM EDT ATHE NA ([facility]) Ely Mcmullen, MASSAGE COORDINATOR: 7[address]26 [address], [place] [address], Ph. Attender: Ely Mcmullen [facility] - [facility] 07/15/2019 12:00:00 AM EDT ATHE NA ([facility]) Ely Mcmullen, MASSAGE COORDINATOR: 08770 [address], [address], [place] [address], Ph. Attender: Ely Mcmullen [facility] 07/15/2019 12:00:00 AM EDT ATHE NA ([facility]) Ely Mcmullen, MASSAGE COORDINATOR: 55645 [address], [place] [address], Ph. Attender: Ely Mcmullen [facility] 07/15/2019 12:00:00 AM EDT ATHE NA ([facility]) Ely Mcmullen, MASSAGE COORDINATOR: [address], [place] [address], Ph. Attender: Ely Mcmullen [facility] 07/15/2019 12:00:00 AM EDT ATHE NA ([facility]) Ely Mcmullen, MASSAGE COORDINATOR: 38365 [address], [address], [place] [address], Ph. Attender: Ely Mcmullen [facility] 07/15/2019 12:00:00 AM EDT ATHE NA ([facility]) Ely Mcmullen, MASSAGE COORDINATOR: 60171 [address], [address], [place] [address], Ph. Attender: Ely Mcmullen [facility] - [facility] 07/15/2019 12:00:00 AM EDT ATHE NA ([facility]) Ely Mcmullen, MASSAGE COORDINATOR: 14862 [address], [place] [address], Ph. Attender: Ely Mcmullen [facility] - [facility] 07/15/2019 12:00:00 AM EDT ATHE NA ([facility]) Ely Mcmullen, MASSAGE COORDINATOR: 01175 [address], [address], [place] [address], Ph. Attender: Ely Mcmullen [facility] - [facility] 07/15/2019 12:00:00 AM EDT ATHE NA ([facility]) Ely Mcmullen, MASSAGE COORDINATOR: 42241 [address], [address], [place] [address], Ph. Attender: Ely Mcmullen [facility] - [facility] 07/15/2019 12:00:00 AM EDT ATHE NA ([facility]) Ely Aumiriam Chingstef, MASSAGE COORDINATOR: 72162 [address], [place] [address], Ph. Attender: Ely Mcumllen [facility] - [facility] 07/15/2019 12:00:00 AM EDT ATHE NA ([facility]) lEy Mcmullen, MASSAGE COORDINATOR: [address]1285 [address], [place] [address], Ph. Attender: Ely Goinssara [facility] - [facility] 07/15/2019 12:00:00 AM EDT ATHE NA ([facility]) Ely Mcmullen, MASSAGE COORDINATOR: 38632 [address], [place] [address], Ph. Attender: Ely Mcmullen [facility] - [facility] 07/15/2019 12:00:00 AM EDT ATHRachael ERWIN ([facility]) Ely Mcmullen, MASSAGE COORDINATOR: 47058 [address], [place] [address], Ph. Attender: Ely Mcmullen [facility] - [facility] 07/15/2019 12:00:00 AM EDT ROBERT ERWIN ([facility]) Ely Mcmullen, MASSAGE COORDINATOR: 70226 [address], [place] [address], Ph. Attender: Ely Mcmullen [facility] - [facility] 07/15/2019 12:00:00 AM EDT ATHRachael ERWIN ([facility]) Ely Mcmullen, MASSAGE COORDINATOR: 11984 [address], [place] [address], Ph. Attender: Ely Mcmullen [facility] 07/15/2019 12:00:00 AM EDT ROBERT ERWIN ([facility]) Outpatient [address] [facility] [address] 07/14/2019 12:00:00 AM EDT eCW1 ([facility]) Outpatient Attender: BRANDT COLLIER NP Physical Therapy 07/13/2019 0 9:15:00 AM EDT MEDENT ([facility] [place] [address] [facility] [address] 07/12/2019 12:00:00 AM EDT eCW1 ([facility]) Ely Mcmullen, MASSAGE COORDINATOR: [address]206 [address], [place] [address], Ph. Attender: Ely Mcmullen [facility] 07/08/2019 12:00:00 AM EDT ATHE NA ([facility]) Ely Mcmullen, MASSAGE COORDINATOR: 28163 [address], [place] [address], Ph. Attender: Ely Mcmullen [facility] - [facility] 07/08/2019 12:00:00 AM EDT ATHE NA ([facility]) Ely Mcmullen, MASSAGE COORDINATOR: 79999 [address], [place] [address], Ph. Attender: Ely Mcmullen [facility] 07/08/2019 12:00:00 AM EDT ATHE NA ([facility]) Ely Mcmullen, MASSAGE COORDINATOR: 61971 [address], [place] [address], Ph. Attender: Ely Mcmullen [facility] 07/08/2019 12:00:00 AM EDT ATHE NA ([facility]) Ely Mcmullen, MASSAGE COORDINATOR: 02143 [address], [address], [place] [address], Ph. Attender: Ely Mcmullen [facility] 07/08/2019 12:00:00 AM EDT ATHE NA ([facility]) Ely Mcmullen, MASSAGE COORDINATOR: 68534 [address], [place] [address], Ph. Attender: Ely Mcmullen [facility] 07/08/2019 12:00:00 AM EDT ATHE NA ([facility]) Ely Mcmullen, MASSAGE COORDINATOR: 36422 [address], [place] [address], Ph. Attender: Ely Mcmullen [facility] - [facility] 07/08/2019 12:00:00 AM EDT ATHE NA ([facility]) Ely Mcmullen, MASSAGE COORDINATOR: 98000 [address], [address], [place] [address], Ph. Attender: Ely Mcmullen [facility] - [facility] 07/08/2019 12:00:00 AM EDT ATHE NA ([facility]) Ely Mcmullen, MASSAGE COORDINATOR: 59564 [address], [place] [address], Ph. Attender: Ely Mcmullen [facility] - [facility] 07/08/2019 12:00:00 AM EDT ATHE NA ([facility]) Ely Mcmullen, MASSAGE COORDINATOR: 73403 [address], [place] [address], Ph. Attender: Ely Mcmullen [facility] - [facility] 07/08/2019 12:00:00 AM EDT ATHE NA ([facility]) Ely Mcmullen, MASSAGE COORDINATOR: [address]3262 [address], [place] [address], Ph. Attender: Ely Mcmullen [facility] - [facility] 07/08/2019 12:00:00 AM EDT ATHE NA ([facility]) Ely Mcmullen, MASSAGE COORDINATOR: 42879 [address], [place] [address], Ph. Attender: Ely Mcmullen [facility] - [facility] 07/08/2019 12:00:00 AM EDT ATHE NA ([facility]) Ely Mcmullen, MASSAGE COORDINATOR: 69003 [address], [place] [address], Ph. Attender: Ely Mcmullen [facility] - [facility] 07/08/2019 12:00:00 AM EDT ATHE NA ([facility]) Ely Mcmullen, MASSAGE COORDINATOR: 5[address]99 [address], [place] [address], Ph. Attender: Ely Mcmullen [facility] - [facility] 07/08/2019 12:00:00 AM EDT ATHE NA ([facility]) Ely Mcmullen, MASSAGE COORDINATOR: 24730 [address], [place] [address], Ph. Attender: Ely Mcmullen [facility] - [facility] 07/08/2019 12:00:00 AM EDT ATHE NA ([facility]) Ely Mcmullen, MASSAGE COORDINATOR: 84209 [address], [place] [address], Ph. Attender: Ely Mcmullen [facility] - [facility] 07/08/2019 12:00:00 AM EDT ATHE NA ([facility]) Ely Mcmullen, MASSAGE COORDINATOR: [address], [place] [address], Ph. Attender: Ely Mcmullen [facility] - [facility] 07/08/2019 12:00:00 AM EDT ATHE NA ([facility]) Ely Karen Mcmullen, MASSAGE COORDINATOR: [address], [address], [place] [address], Ph. Attender: Ely Mcmullen [facility] - [facility] 07/08/2019 12:00:00 AM EDT ATHRachael NA ([facility]) Ely Mcmullen, MASSAGE COORDINATOR: [address], [address], [place] [address], Ph. Attender: Ely Mcmullen [facility] - [facility] 07/08/2019 12:00:00 AM EDT ATHaRchael NA ([facility]) Ely Mcmullen, MASSAGE COORDINATOR: [address], [place] [address], Ph. Attender: Ely Mcmullen [facility] 07/08/2019 12:00:00 AM EDT ATHE NA ([facility]) [facility] [address] [facility] [address] 07/05/2019 12:00:00 AM EDT eCW1 ([facility]) Outpatient Attender: CHASIDY Johnston/Estiven/Amandeep/Luan proctor 06/28/2019 01:00:00 PM EDT MEDENT ([facility] [address] [facility] [address] 06/13/2019 12:00:00 AM EDT eCW1 ([facility]) [facility] [address] [place] [address] [place] [address] 06/13/2019 12:00:00 AM EDT eCW1 ([facility]) [facility] [address] [facility] [address] 06/02/2019 12:00:00 AM EDT eCW1 ([facility]) [facility] [address] [place] [address], [place] [address] 05/19/2019 12:00:00 AM EDT eCW1 ([facility]) Outpatient Attender: CHASIDY Johnston/Estiven/Amandeep/Luan proctor 05/17/2019 09:00:00 AM EDT MEDENT ([facility]) [facility] [address] [place] [address] 05/06/2019 12:00:00 AM EDT eCW1 ([facility]) Outpatient Attender: BRANDT COLLIER NP Physical Therapy 04/22/2019 1 0:15:00 AM EST MEDENT ([facility]) [facility] [address] [facility] Y [address] 04/19/2019 12:00:00 AM EST eCW1 [facility] [address] [facility] [place] [address] 04/19/2019 12:00:00 AM EST eCW1 ([facility]) [facility] [address] [facility] [address] 04/18/2019 12:00:00 AM EST eCW1 ([facility]) Outpatient Referrer: Ely Mcmullen [employer] 04/11/2019 03:24:0 0 PM EST [facility] [address] [facility] [address] 04/11/2019 12:00:00 AM EST eCW1 ([facility]) [facility] [place] [address] [facility] [address] 04/05/2019 12:00:00 AM EST eCW1 ([facility]) [facility] [address] [facility] [address] 03/31/2019 12:00:00 AM EST eCW1 ([facility]) [facility] [address] [facility] [address] 03/31/2019 12:00:00 AM EST eCW1 ([facility]) [facility] [address] [facility] [address] 03/30/2019 12:00:00 AM EST eCW1 ([facility]) Duy Valente MD: [address]45 [address], [place] [address], Ph. Attender: Duy Valente MD ID - [facility] 03/29/2019 12:00:00 AM EST POLO ([facility]) Duy Valente MD: [address]50 [address], [address], [place] [address], Ph. Attender: Duy Valente MD ID - [facility] 03/29/2019 12:00:00 AM EST POLO ([facility]) uDy Valente MD: [address]5966 [address], [place] [address], Ph. Attender: Duy Valente MD ID - [facility] 03/29/2019 12:00:00 AM EST POLO ([facility]) Duy Valente MD: [address]138 [address], [place] [address], Ph. Attender: Duy Valente MD ID - [facility] 03/29/2019 12:00:00 AM EST POLO ([facility]) Duy Valente MD: 30963 [address], [place] [address], Ph. Attender: uDy Valente MD ID - [facility] 03/29/2019 12:00:00 AM EST POLO ([facility]) Duy Valente MD: [address]0950 [address], [place] [address], Ph. Attender: Duy Valente MD ID - [facility] 03/29/2019 12:00:00 AM EST POLO ([facility]) Duy Valente MD: 21942 [address], [address], [place] [address], Ph. Attender: Duy MULTANI - [facility] 03/29/2019 12:00:00 AM EST POLO ([facility]) Duy Valente MD: 36873 [address], [address], [place] [address], Ph. Attender: Duy MULTANI - [facility] 03/29/2019 12:00:00 AM EST POLO ([facility]) Duy Valente MD: [address]70 [address], [place] [address], Ph. Attender: Duy MULTANI - [facility] 03/29/2019 12:00:00 AM EST POLO ([facility]) Duy Valente MD: 37666 [address], [address], [place] [address], Ph. Attender: Duy MULTANI - [facility] 03/29/2019 12:00:00 AM EST POLO ([facility]) Duy Valente MD: 47516 [address], [address], [place] [address], Ph. Attender: Duy MULTANI - [facility] 03/29/2019 12:00:00 AM EST POLO ([facility]) Duy Valente MD: 01841 [address], [address], [place] [address], Ph. Attender: Duy Valente MD ID - [facility] 03/29/2019 12:00:00 AM EST POLO ([facility]) Duy Valente MD: [address]202 [address], [place] [address], Ph. Attender: Duy MULTANI - [facility] 03/29/2019 12:00:00 AM EST POLO ([facility]) Duy Valente MD: 08524 [address], [address], [place] [address], Ph. Attender: Duy MULTANI - [facility] 03/29/2019 12:00:00 AM EST POLO ([facility]) Duy Valente MD: [address]22 [address], [place] [address], Ph. Attender: Duy MULTANI - [facility] 03/29/2019 12:00:00 AM EST POLO ([facility]) Duy Valente MD: 16395 [address], [place] [address], Ph. Attender: Duy MULTANI - [facility] 03/29/2019 12:00:00 AM EST POLO ([facility]) Duy Valente MD: 23510 [address], [address], [place] [address], Ph. Attender: Duy MULTANI - [facility] 03/29/2019 12:00:00 AM EST POLO ([facility]) Duy Valente MD: 00207 [address], [address], [place] [address], Ph. Attender: Duy MULTANI - [facility] 03/29/2019 12:00:00 AM EST POLO ([facility]) Duy Valente MD: 26052 [address], [place] [address], Ph. Attender: Duy Valente MD ID - [facility] 03/29/2019 12:00:00 AM EST POLO ([facility]) Duy Valente MD: 89436 [address], [address], [place] [address], Ph. Attender: Duy Valente MD ID - [facility] 03/29/2019 12:00:00 AM EST POLO ([facility]) Duy Valente MD: 72947 [address], [facility] [place] [address], Ph. Attender: Duy Valente MD ID - [facility] 03/29/2019 12:00:00 AM EST POLO ([facility]) Ely Mcmullen, MASSAGE COORDINATOR: [address], [place] [address], Ph. Attender: Ely Mcmullen [facility] - [facility] 03/17/2019 12:00:00 AM EST ATHE NA ([facility]) Ely Mcmullen, MASSAGE COORDINATOR: [address], [place] [address], Ph. Attender: Ely Mcmullen [facility] - [facility] 03/17/2019 12:00:00 AM EST ATHE NA ([facility]) Ely Mcmullen, MASSAGE COORDINATOR: [address], [place] [address], Ph. Attender: Ely Mcmullen [facility] - [facility] 03/17/2019 12:00:00 AM EST ATHE NA ([facility]) Ely Mcmullen, MASSAGE COORDINATOR: [address], [place] [address], Ph. Attender: Ely Mcmullen [facility] - [facility] 03/17/2019 12:00:00 AM EST ATHE NA ([facility]) Ely Mcmullen, MASSAGE COORDINATOR: [address], [address], [place] [address], Ph. Attender: Ely Mcmullen [facility] 03/17/2019 12:00:00 AM EST ATHE NA ([facility]) Ely Mcmullen, MASSAGE COORDINATOR: [address], [place] [address], Ph. Attender: Ely Mcmullen [facility] 03/17/2019 12:00:00 AM EST ATHE NA ([facility]) Ely Mcmullen, MASSAGE COORDINATOR: [address]66 [address], [address], [place] [address], Ph. Attender: Ely Mcmullen [facility] 03/17/2019 12:00:00 AM EST ATHE NA ([facility]) Ely Mcmullen, MASSAGE COORDINATOR: [address], [address], [place] [address], Ph. Attender: Ely Mcmullen [facility] 03/17/2019 12:00:00 AM EST ATHE NA ([facility]) Ely Mcmullen, MASSAGE COORDINATOR: [address], [address], [place] [address], Ph. Attender: Ely Mcmullen [facility] - [facility] 03/17/2019 12:00:00 AM EST ATHE NA ([facility]) Ely Mcmullen, MASSAGE COORDINATOR: [address]84 [address], [place] [address], Ph. Attender: Ely Mcmullen [facility] - [facility] 03/17/2019 12:00:00 AM EST ATHE NA ([facility]) Ely Mcmullen, MASSAGE COORDINATOR: [address], [place] [address], Ph. Attender: Ely Mcmullen [facility] - [facility] 03/17/2019 12:00:00 AM EST ATHE NA ([facility]) Ely Mcmullen, MASSAGE COORDINATOR: [address], [place] [address], Ph. Attender: Ely Mcmullen [facility] - [facility] 03/17/2019 12:00:00 AM EST ATHE NA ([facility]) Ely Mcmullen, MASSAGE COORDINATOR: [address]1 [address], [place] [address], Ph. Attender: Ely Mcmullen [facility] - [facility] 03/17/2019 12:00:00 AM EST ATHE NA ([facility]) Ely Mcmullen, MASSAGE COORDINATOR: [address], [place] [address], Ph. Attender: Ely Mcmullen [facility] - [facility] 03/17/2019 12:00:00 AM EST ATHE NA ([facility]) Ely Mcmullen, MASSAGE COORDINATOR: [address]45 [address], [address], [place] [address], Ph. Attender: Ely Mcmullen [facility] - [facility] 03/17/2019 12:00:00 AM EST ATHE NA ([facility]) Ely Mcmullen, MASSAGE COORDINATOR: [address]27 [address], [address], [place] [address], Ph. Attender: Ely Mcmullen [facility] - [facility] 03/17/2019 12:00:00 AM EST ATHE NA ([facility]) Ely Mcmullen, MASSAGE COORDINATOR: [address]169 [address], [place] [address], Ph. Attender: Ely Mcmullen [facility] - [facility] 03/17/2019 12:00:00 AM EST ATHE NA ([facility]) Ely Mcmullen, MASSAGE COORDINATOR: [address]180 [address], [address], [place] [address], Ph. Attender: Ely Mcmullen [facility] - [facility] 03/17/2019 12:00:00 AM EST ATHE NA ([facility]) Ely Mcmullen, MASSAGE COORDINATOR: [address]395 [address], [address], [place] [address], Ph. Attender: Ely Mcmullen [facility] - [facility] 03/17/2019 12:00:00 AM EST ATHE NA ([facility]) Ely Mcmullen, MASSAGE COORDINATOR: [address]69 [address], [place] [address], Ph. Attender: Ely Briseidasara [facility] - [facility] 03/17/2019 12:00:00 AM EST ATHE NA ([facility]) Ely Mcmullen, MASSAGE COORDINATOR: [address]59 [address], [place] [address], Ph. Attender: Ely Mcmullen [facility] - [facility] 03/17/2019 12:00:00 AM EST ATHE NA ([facility]) Ely Mcmullen, MASSAGE COORDINATOR: [address]206 [address], [place] [address], Ph. Attender: Ely Mcmullen [facility] 03/17/2019 12:00:00 AM EST ATHE NA ([facility]) [address] [place] [address] 02/28/2019 12:00:00 AM EST eCW1 ([facility]) Outpatient Attender: CHASIDY Johnston/Estiven/Amandeep/Rein dl 02/22/2019 08:30:00 AM EST MEDENT ([facility] [address], [place] [address] 02/21/2019 12:00:00 AM EST eCW1 ([facility]) [address] [place] [address] 02/08/2019 12:00:00 AM EST eCW1 ([facility]) Duy Valente MD: 32699 [address], [place] [address], Ph. Attender: Duy Valente MD [facility] 01/31/2019 12:00:00 AM EST POLO ([facility]) Duy Valente MD: 92979 [address], [place] [address], Ph. Attender: Duy Valente MD ID - [facility] 01/31/2019 12:00:00 AM EST POLO ([facility]) Duy Valente MD: 70140 [address], [address], [place] [address], Ph. Attender: Duy MULTANI - [facility] 01/31/2019 12:00:00 AM EST POLO ([facility]) Duy Valente MD: 60348 [address], [address], [place] [address], Ph. Attender: Duy MULTANI - [facility] 01/31/2019 12:00:00 AM EST POLO ([facility]) Duy Valente MD: 42491 [address], [address], [place] [address], Ph. Attender: Duy MULTANI - [facility] 01/31/2019 12:00:00 AM EST POLO ([facility]) Duy Valente MD: 92318 [address], [address], [place] [address], Ph. Attender: Duy MULTANI - [facility] 01/31/2019 12:00:00 AM EST POLO ([facility]) Duy Valente MD: 63791 [address], [address], [place] [address], Ph. Attender: Duy MULTANI - [facility] 01/31/2019 12:00:00 AM EST POLO ([facility]) Duy Valente MD: 77636 [address], [address], [place] [address], Ph. Attender: Duy Valente MD ID - [facility] 01/31/2019 12:00:00 AM EST POLO ([facility]) Duy Valente MD: 29812 [address], [address], [place] [address], Ph. Attender: Duy MULTANI - [facility] 01/31/2019 12:00:00 AM EST POLO ([facility]) Duy Valente MD: 06291 [address], [address], [place] [address], Ph. Attender: Duy MULTANI - [facility] 01/31/2019 12:00:00 AM EST POLO ([facility]) Duy Valente MD: 47826 [address], [place] [address], Ph. Attender: Duy MULTANI - [facility] 01/31/2019 12:00:00 AM EST POLO ([facility]) Duy Valente MD: 32162 [address], [address], [place] [address], Ph. Attender: Duy MULTANI - [facility] 01/31/2019 12:00:00 AM EST POLO ([facility]) Duy Valente MD: 11540 [address], [address], [place] [address], Ph. Attender: Duy MULTANI - [facility] 01/31/2019 12:00:00 AM EST POLO ([facility]) Duy Valente MD: 82730 [address], [address], [place] [address], Ph. Attender: Duy MULTANI - [facility] 01/31/2019 12:00:00 AM EST POLO ([facility]) Duy Valente MD: 29679 [address], [address], [place] [address], Ph. Attender: Duy MULTANI - [facility] 01/31/2019 12:00:00 AM EST POLO ([facility]) Duy Valente MD: 15582 [address], [address], [place] [address], Ph. Attender: Duy MULTANI - [facility] 01/31/2019 12:00:00 AM EST POLO ([facility]) Duy Valente MD: 39185 [address], [place] [address], Ph. Attender: Duy MULTANI - [facility] 01/31/2019 12:00:00 AM EST POLO ([facility]) Duy Valente MD: 60017 [address], [address], [place] [address], Ph. Attender: Duy MULTANI - [facility] 01/31/2019 12:00:00 AM EST POLO ([facility]) Duy Valente MD: 56852 [address], [place] [address], Ph. Attender: Duy MULTANI - [facility] 01/31/2019 12:00:00 AM EST POLO ([facility]) Duy Valente MD: 77589 [address], [address], [place] [address], Ph. Attender: Duy MULTANI - [facility] 01/31/2019 12:00:00 AM EST POLO ([facility]) Duy Valente MD: 58476 [address], [address] [place], [place] [address], Ph. Attender: Duy Valente MD ID - [facility] Office 01/31/2019 12:00:00 AM EST POLO ([facility]) Duy Valente MD: 25644 [address], [address], [place], [place] [address], Ph. Attender: Duy Valente MD ID - [facility] 01/31/2019 12:00:00 AM EST POLO ([facility]) Duy Valente MD: 92035 [address], [facility] [place], [place] [address], Ph. Attender: Duy Valente MD ID - [facility] 01/31/2019 12:00:00 AM EST POLO ([facility]) [facility] [address] [facility] [place] [address] 01/27/2019 12:00:00 AM EST eCW1 ([facility]) [facility] [address] [facility] [address] 01/21/2019 12:00:00 AM EST eCW1 ([facility]) Immunizations Vaccine Date Status Description Data Source(s) INFLUENZA VIRUS VACCINE QUADRIVAL 5610-0170(6 MOS AND UP)/PF 12/06/2019 12:00:00 AM EDT completed [facility] PNEUMOCOCCAL 23-VALENT POLYSACCHARIDE VACCINE 12/06/2019 12: 00:00 AM EDT completed [facility] pneumococcal polysaccharide PPV23 12/05/2019 07:24:00 AM EDT comple alyssa eCW1 ([facility]) pneumococcal polysaccharide PPV23 12/05/2019 07:24:00 AM EDT comple alyssa eCW1 ([facility]) pneumococcal polysaccharide PPV23 12/05/2019 07:24:00 AM EDT comple alyssa eCW1 ([facility]) pneumococcal polysaccharide PPV23 12/05/2019 07:24:00 AM EDT comple alyssa eCW1 ([facility]) pneumococcal polysaccharide PPV23 12/05/2019 07:24:00 AM EDT comple alyssa eCW1 ([facility]) pneumococcal polysaccharide PPV23 12/05/2019 07:24:00 AM EDT comple alyssa eCW1 ([facility]) pneumococcal polysaccharide PPV23 12/05/2019 07:24:00 AM EDT comple alyssa eCW1 ([facility]) IIV3. This is one of two codes replacing CVX 15, which is being retired. 12/05/2019 07:23:00 AM EDT completed eCW1 ([facility]) IIV3. This is one of two codes replacing CVX 15, which is being retired. 12/05/2019 07:23:00 AM EDT completed eCW1 ([facility]) IIV3. This is one of two codes replacing CVX 15, which is being retired. 12/05/2019 07:23:00 AM EDT completed eCW1 ([facility]) IIV3. This is one of two codes replacing CVX 15, which is being retired. 12/05/2019 07:23:00 AM EDT completed eCW1 ([facility]) IIV3. This is one of two codes replacing CVX 15, which is being retired. 12/05/2019 07:23:00 AM EDT completed eCW1 ([facility]) IIV3. This is one of two codes replacing CVX 15, which is being retired. 12/05/2019 07:23:00 AM EDT completed eCW1 ([facility]) IIV3. This is one of two codes replacing CVX 15, which is being retired. 12/05/2019 07:23:00 AM EDT completed eCW1 ([facility]) Medications Medication Brand Name Start Date Product Form Dose Route Admi nistrative Instructions Pharmacy Instructions Status Indications Reaction Description Data Source(s) 100 mg 03/07/2020 12:00:00 AM EST tablet 180 TAKE ONE TABLET BY MOUTH TWO TIMES A DAY TAKE ONE TABLET BY MOUTH TWO TIMES A DAY SOLD: 03/07/2020 [facility] tizanidine 4 MG Oral Tablet TIZANIDINE HCL 03/07/2020 12:00:00 AM EST tablet 90 TAKE ONE TABLET BY MOUTH EVERY 8 HOURS NEEDED TAKE ONE TABLET BY MOUTH EVERY 8 HOURS NEEDED SOLD: 03/07/2020 [facility] Ciprofloxacin 500 MG Oral Tablet Ciprofloxacin HCl 500 MG Ciprofloxacin HCl 500 MG 12/29/2019 12:00:00 AM EST 1.0 {tablet} activ e Ciprofloxacin HCl 500 MG eCW1 ([facility]) Ciprofloxacin 500 MG Oral Tablet Ciprofloxacin HCl 500 MG Ciprofloxacin HCl 500 MG 12/29/2019 12:00:00 AM EST 1.0 {tablet} activ e Ciprofloxacin HCl 500 MG eCW1 ([facility]) Ciprofloxacin 500 MG Oral Tablet Ciprofloxacin HCl 500 MG Ciprofloxacin HCl 500 MG 12/29/2019 12:00:00 AM EST 1.0 {tablet} activ e Ciprofloxacin HCl 500 MG eCW1 ([facility]) 500 mg 12/29/2019 12:00:00 AM EST tablet 10 TAKE ONE TABLET BY MOUTH EVERY 12 HOURS FOR 5 DAYS TAKE ONE TABLET BY MOUTH EVERY 12 HOURS FOR 5 DAYS TIFF [facility] Ciprofloxacin 500 MG Oral Tablet Ciprofloxacin HCl 500 MG Ciprofloxacin HCl 500 MG 12/29/2019 12:00:00 AM EST 1.0 {tablet} activ e Ciprofloxacin HCl 500 MG eCW1 ([facility]) Ciprofloxacin 500 MG Oral Tablet Ciprofloxacin HCl 500 MG Ciprofloxacin HCl 500 MG 12/29/2019 12:00:00 AM EST 1.0 {tablet} activ e Ciprofloxacin HCl 500 MG eCW1 ([facility]) tizanidine 4 MG Oral Tablet TIZANIDINE HCL 12/28/2019 12:00:[address] tablet 120 TAKE ONE TABLET BY MOUTH EVERY 6 HOURS A S NEEDED TAKE ONE TABLET BY MOUTH EVERY 6 HOURS NEEDED SOLD: 12/30/2019 [facility] Sulfamethoxazole 800 MG / Trimethoprim 1 60 MG Oral Tablet [Bactrim] Bactrim DS 800-160 MG Bactrim DS 800-160 MG 12/13/2019 12:00:00 AM EDT 1.0 {table t} active Bactrim DS 800-160 MG eCW1 ( [facility]) Sulfamethoxazole 800 MG / Trimethoprim 1 60 MG Oral Tablet [Bactrim] Bactrim DS 800-160 MG Bactrim DS 800-160 MG 12/13/2019 12:00:00 AM EDT 1.0 {table t} active Bactrim DS 800-160 MG eCW1 ( [facility]) Sulfamethoxazole 800 MG / Trimethoprim 1 60 MG Oral Tablet [Bactrim] Bactrim DS 800-160 MG Bactrim DS 800-160 MG 12/13/2019 12:00:00 AM EDT 1.0 {table t} active Bactrim DS 800-160 MG eCW1 ( [facility]) Sulfamethoxazole 800 MG / Trimethoprim 1 60 MG Oral Tablet [Bactrim] Bactrim DS 800-160 MG Bactrim DS 800-160 MG 12/13/2019 12:00:00 AM EDT 1.0 {table t} active Bactrim DS 800-160 MG eCW1 ( [facility]) tizanidine 4 MG Oral Tablet Tizanidine HCl 4 MG Tizanidine H Cl 4 MG 12/13/2019 12:00:00 AM EDT 2.0 {tablets} active T izanidine HCl 4 MG eCW1 ([facility]) tizanidine 4 MG Oral Tablet Tizanidine HCl 4 MG Tizanidine H Cl 4 MG 12/13/2019 12:00:00 AM EDT 2.0 {tablets} active T izanidine HCl 4 MG eCW1 ([facility]) tizanidine 4 MG Oral Tablet TIZANIDINE HCL 12/13/2019 12:00:00 AM EDT tablet 10 TAKE TWO TABLETS BY MOUTH BEFORE BEDTIME ( NOT TO EXCE ED 24MG / DAY) TAKE TWO TABLETS BY MOUTH BEFORE BEDTIME ( NOT TO EXCEED 24MG / DAY) SOLD: 12/13/2019 [facility] tizanidine 4 MG Oral Tablet Tizanidine HCl 4 MG Tizanidine H Cl 4 MG 12/13/2019 12:00:00 AM EDT 2.0 {tablets} active T izanidine HCl 4 MG eCW1 ([facility]) tizanidine 4 MG Oral Tablet Tizanidine HCl 4 MG Tizanidine H Cl 4 MG 12/13/2019 12:00:00 AM EDT 2.0 {tablets} active T izanidine HCl 4 MG eCW1 ([facility]) atorvastatin 80 MG Oral Tablet ATORVASTATIN CALCIUM 12/13/2019 1 2:00:00 AM EDT tablet 90 TAKE ONE TABLET BY MOUTH EVERY D AY TAKE ONE TABLET BY MOUTH EVERY DAY SOLD: 12/13/2019 [facility] tizanidine 4 MG Oral Tablet Tizanidine HCl 4 MG Tizanidine H Cl 4 MG 12/13/2019 12:00:00 AM EDT 2.0 {tablets} active T izanidine HCl 4 MG eCW1 ([facility]) Sulfamethoxazole 800 MG / Trimethoprim 1 60 MG Oral Tablet [Bactrim] Bactrim DS 800-160 MG Bactrim DS 800-160 MG 12/13/2019 12:00:00 AM EDT 1.0 {table t} active Bactrim DS 800-160 MG eCW1 ( [facility]) Sulfamethoxazole 800 MG / Trimethoprim 1 60 MG Oral Tablet [Bactrim] Bactrim DS 800-160 MG Bactrim DS 800-160 MG 12/13/2019 12:00:00 AM EDT 1.0 {table t} active Bactrim DS 800-160 MG eCW1 ( [facility]) tizanidine 4 MG Oral Tablet Tizanidine HCl 4 MG Tizanidine H Cl 4 MG 12/13/2019 12:00:00 AM EDT 2.0 {tablets} active T izanidine HCl 4 MG eCW1 ([facility]) tizanidine 4 MG Oral Tablet Tizanidine HCl 4 MG Tizanidine H Cl 4 MG 12/13/2019 12:00:00 AM EDT 2.0 {tablets} active T izanidine HCl 4 MG eCW1 ([facility]) Sulfamethoxazole 800 MG / Trimethoprim 160 MG Oral Tab let 800-160 mg SULFAMETHOXAZOLE/TRIMETHOPRIM 12/13/2019 12:00:00 AM EDT tablet 6 TAKE ONE TABLET BY MOUTH TWO TIMES A DAY FOR 3 DAYS TAKE ONE TABLET BY MOUTH TWO TIMES A DAY FOR 3 DAYS SOLD: 12/13/2019 [facility] Sulfamethoxazole 800 MG / Trimethoprim 1 60 MG Oral Tablet [Bactrim] Bactrim DS 800-160 MG Bactrim DS 800-160 MG 12/13/2019 12:00:00 AM EDT 1.0 {table t} active Bactrim DS 800-160 MG eCW1 ( [facility]) Paroxetine Hydrochloride 30 MG Oral Tablet PAROXETINE HCL 11/22/2019 12:00:00 AM EDT tablet 90 TAKE ONE TABLET BY MOUTH EDUIN RY MORNING TAKE ONE TABLET BY MOUTH EVERY MORNING SOLD: 11/26/2019 [facility] Paroxetine Hydrochloride 30 MG Oral Tablet PAROXETINE HCL 11/22/2019 12:00:00 AM EDT tablet 90 TAKE ONE TABLET BY MOUTH EDUIN RY MORNING TAKE ONE TABLET BY MOUTH EVERY MORNING SOLD: 02/25/2020 [facility] ezetimibe 10 MG Oral Tablet EZETIMIBE 11/22/2019 12:00:00 AM EDT table t 90 TAKE ONE TABLET BY MOUTH EVERY DAY TAKE ONE TABLET BY MOUTH EVERY DAY SOLD: 02/25/2020 [facility] ezetimibe 10 MG Oral Tablet EZETIMIBE 11/22/2019 12:00:00 AM EDT table t 90 TAKE ONE TABLET BY MOUTH EVERY DAY TAKE ONE TABLET BY MOUTH EVERY DAY SOLD: 11/26/2019 [facility] Cyclobenzaprine hydrochloride 10 MG Oral Tablet CYCLOBENZAPR INE HCL 10/06/2019 12:00:00 AM EDT tablet 30 TAKE ONE TABLET BY MOUTH EVERY DAY AT BEDTIME TAKE ONE TABLET BY MOUTH EVERY DAY AT BEDTIME SOLD: 10/08/2019 [facility] 62.5-25 mcg/actuation 09/29/2019 12:00:00 AM EDT blister wit h device 60 INHALE ONE PUFF BY MOUTH EVERY DAY INHALE ONE PUFF BY MOUTH EVERY DAY SOLD: 03/07/2020 [facility] 90 mcg/actuation 09/29/2019 12:00:00 AM EDT HFA aerosol inha ler 8 INHALE TWO PUFFS BY MOUTH FOUR TIMES A DAY NEEDED INHALE TWO PUFFS BY MOUTH FOUR TIMES A DAY NEEDED SOLD: 10/08/2019 [facility] 62.5-25 mcg/actuation 09/29/2019 12:00:00 AM EDT blister wit h device 60 INHALE ONE PUFF BY MOUTH EVERY DAY INHALE ONE PUFF BY MOUTH EVERY DAY SOLD: 10/08/2019 [facility] Cyclobenzaprine hydrochloride 10 MG Oral Tablet CYCLOBENZAPR INE HCL 09/09/2019 12:00:00 AM EDT tablet 30 TAKE ONE TABLET BY MOUTH AT BEDTIME MAXIMUM DAILY DOSE = ONE TABLET TAKE ONE TABLET BY MOUTH AT BEDTIME MAXI MUM DAILY DOSE = ONE TABLET SOLD: 09/15/2019 [facility] 5 % 08/16/2019 12:00:00 AM EDT adhesive patch,medicate d 30 APPLY ONE PATCH TOPICALLY EVERY DAY, MAY WEAR UP TO 12 HOURS APPLY ONE PATCH TOPICALLY EVERY DAY, MAY WEAR UP TO 12 HOURS SOLD: 08/19/2019 [facility] Alprazolam 0.5 MG Oral Tablet Alprazolam 0.5 MG 07/14/2019 12:00:00 AM EDT 1.0 {tablet_as_needed} active Alprazolam 0 .5 MG eCW1 ([facility]) 75 mg 07/14/2019 12:00:00 AM EDT tablet 90 TAKE ONE TABLET BY MOUTH EVERY DAY TAKE ONE TABLET BY MOUTH EVERY DAY SOLD: 11/08/2019 [facility] Alprazolam 0.5 MG Oral Tablet Alprazolam 0.5 MG 07/14/2019 12:00:00 AM EDT 1.0 {tablet_as_needed} active Alprazolam 0 .5 MG eCW1 ([facility]) Alprazolam 0.5 MG Oral Tablet Alprazolam 0.5 MG 07/14/2019 12:00:00 AM EDT 1.0 {tablet_as_needed} active Alprazolam 0 .5 MG eCW1 ([facility]) 400 mg 07/14/2019 12:00:00 AM EDT capsule 180 TAKE ONE CAPSULE BY MOUTH TWICE A DAY TAKE ONE CAPSULE BY MOUTH TWICE A DAY SOLD: 07/15/2019 [facility] Alprazolam 0.5 MG Oral Tablet ALPRAZOLAM 07/14/2019 12:00:00 AM EDT ta blet 10 TAKE ONE TABLET BY MOUTH TWICE A DAY NEEDED , MAXIMUM DAILY DOSE = TWO TABLETS TAKE ONE TABLET BY MOUTH TWICE A DAY NEEDED , MAXIMUM DAILY DOSE = TWO TABLETS SOLD: 07/15/2019 [facility] 400 mg 07/14/2019 12:00:00 AM EDT capsule 180 TAKE ONE CAPSULE BY MOUTH TWICE A DAY TAKE ONE CAPSULE BY MOUTH TWICE A DAY SOLD: 10/15/2019 [facility] Alprazolam 0.5 MG Oral Tablet Alprazolam 0.5 MG 07/14/2019 12:00:00 AM EDT 1.0 {tablet_as_needed} active Alprazolam 0 .5 MG eCW1 ([facility]) Alprazolam 0.5 MG Oral Tablet Alprazolam 0.5 MG 07/14/2019 12:00:00 AM EDT 1.0 {tablet_as_needed} active Alprazolam 0 .5 MG eCW1 ([facility]) 75 mg 07/14/2019 12:00:00 AM EDT tablet 90 TAKE ONE TABLET BY MOUTH EVERY DAY TAKE ONE TABLET BY MOUTH EVERY DAY SOLD: 07/15/2019 [facility] Alprazolam 0.5 MG Oral Tablet Alprazolam 0.5 MG 07/14/2019 12:00:00 AM EDT 1.0 {tablet_as_needed} active Alprazolam 0 .5 MG eCW1 ([facility]) 75 mg 07/14/2019 12:00:00 AM EDT tablet 90 TAKE ONE TABLET BY MOUTH EVERY DAY TAKE ONE TABLET BY MOUTH EVERY DAY SOLD: 02/25/2020 [facility] Alprazolam 0.5 MG Oral Tablet Alprazolam 0.5 MG 07/14/2019 12:00:00 AM EDT 1.0 {tablet_as_needed} active Alprazolam 0 .5 MG eCW1 ([facility]) 400 mg 07/14/2019 12:00:00 AM EDT capsule 180 TAKE ONE CAPSULE BY MOUTH TWICE A DAY TAKE ONE CAPSULE BY MOUTH TWICE A DAY SOLD: 01/15/2020 [facility] Alprazolam 0.5 MG Oral Tablet Alprazolam 0.5 MG 07/14/2019 12:00:00 AM EDT 1.0 {tablet_as_needed} active Alprazolam 0 .5 MG eCW1 ([facility]) Alprazolam 0.5 MG Oral Tablet Alprazolam 0.5 MG 07/14/2019 12:00:00 AM EDT 1.0 {tablet_as_needed} active Alprazolam 0 .5 MG eCW1 ([facility]) 350 mg 07/08/2019 12:00:00 AM EDT tablet 15 TAKE ONE TABLET BY MOUTH THREE TIMES A DAY NEEDED FOR 5 DAYS, MAXIMUM DAILY DOSE = THREE TABLETS TAKE ONE TABLET BY MOUTH THREE TIMES A DAY NEEDED FOR 5 DAYS, MAXIMUM DAILY DOSE = THREE TABLETS SOLD: 07/08/2019 [facility] 5-325 mg 07/04/2019 12:00:00 AM EDT tablet 12 TAKE 1 TO 2 TABLETS BY MOUTH EVERY 4 TO 6 HOURS NEEDED FOR PAIN, MAXIMUM DAILY DOSE = TWELVE TABLETS TAKE 1 TO 2 TABLETS BY MOUTH EVERY 4 TO 6 HOURS NEEDED FOR PAIN, MAXIMUM DAILY DOSE = TWELVE TABLETS SOLD: 07/04/2019 [facility] 100 mg 07/02/2019 12:00:00 AM EDT tablet 180 TAKE ONE TABLET BY MOUTH TWICE A DAY TAKE ONE TABLET BY MOUTH TWICE A DAY SOLD: 12/06/2019 [facility] 100 mg 07/02/2019 12:00:00 AM EDT tablet 180 TAKE ONE TABLET BY MOUTH TWICE A DAY TAKE ONE TABLET BY MOUTH TWICE A DAY SOLD: 07/04/2019 [facility] 100 mg 06/14/2019 12:00:00 AM EDT tablet 180 TAKE ONE TABLET BY MOUTH TWICE A DAY TAKE ONE TABLET BY MOUTH TWICE A DAY SOLD: 06/14/2019 [facility] 80 mg 06/02/2019 12:00:00 AM EDT tablet 90 TAKE ONE TABLET BY MOUTH EVERY DAY TAKE ONE TABLET BY MOUTH EVERY DAY SOLD: 06/10/2019 [facility] 80 mg 06/02/2019 12:00:00 AM EDT tablet 90 TAKE ONE TABLET BY MOUTH EVERY DAY TAKE ONE TABLET BY MOUTH EVERY DAY SOLD: 09/21/2019 [facility] Paroxetine Hydrochloride 30 MG Oral Tablet PAROXETINE HCL 05/19/2019 12:00:00 AM EDT tablet 90 TAKE ONE TABLET BY MOUTH EDUIN JOAQUIN MORNING TAKE ONE TABLET BY MOUTH EVERY MORNING SOLD: 05/21/2019 [facility] Paroxetine Hydrochloride 30 MG Oral Tablet PAROXETINE HCL 05/19/2019 12:00:00 AM EDT tablet 90 TAKE ONE TABLET BY MOUTH EDUIN RY MORNING TAKE ONE TABLET BY MOUTH EVERY MORNING SOLD: 08/26/2019 [facility] 10 mg 05/19/2019 12:00:00 AM EDT tablet 90 TAKE ONE TABLET BY MOUTH EVERY DAY TAKE ONE TABLET BY MOUTH EVERY DAY SOLD: 05/21/2019 [facility] 10 mg 05/19/2019 12:00:00 AM EDT tablet 90 TAKE ONE TABLET BY MOUTH EVERY DAY TAKE ONE TABLET BY MOUTH EVERY DAY SOLD: 08/26/2019 [facility] Medrol Medrol 04/27/2019 12:00:00 AM EDT completed [facility]ENT ([facility]) 4 mg 04/27/2019 12:00:00 AM EDT tablets,dose pack 21 USE DIRECTED USE DIRECTED SOLD: 04/27/2019 [facility] Lidocaine 50 MG/ML Topical Cream Lidocaine (Anorectal) 04/21 12:00:00 AM EST completed [facility] ([facility]) Lidocaine Hydrochloride 0.02 MG/MG Topic al Gel Lidocaine HCl Urethral/Mucosal 2 % Lidocaine HCl Urethral/Mucosal 2 % 04/19/2019 12:00:00 AM EST active Lidocaine HCl Urethral/Mucosal 2 % eCW1 ([facility]) Lidocaine Hydrochloride 0.02 MG/MG Topic al Gel Lidocaine HCl Urethral/Mucosal 2 % Lidocaine HCl Urethral/Mucosal 2 % 04/19/2019 12:00:00 AM EST active Lidocaine HCl Urethral/Mucosal 2 % eCW1 ([facility]) Lidocaine Hydrochloride 0.02 MG/MG Topic al Gel Lidocaine HCl Urethral/Mucosal 2 % Lidocaine HCl Urethral/Mucosal 2 % 04/19/2019 12:00:00 AM EST active Lidocaine HCl Urethral/Mucosal 2 % eCW1 ([facility]) Lidocaine Hydrochloride 0.02 MG/MG Topic al Gel Lidocaine HCl Urethral/Mucosal 2 % Lidocaine HCl Urethral/Mucosal 2 % 04/19/2019 12:00:00 AM EST active Lidocaine HCl Urethral/Mucosal 2 % eCW1 ([facility]) Lidocaine Hydrochloride 0.02 MG/MG Topic al Gel Lidocaine HCl Urethral/Mucosal 2 % Lidocaine HCl Urethral/Mucosal 2 % 04/19/2019 12:00:00 AM EST active as directed eCW1 ([facility]) Lidocaine Hydrochloride 0.02 MG/MG Topic al Gel Lidocaine HCl Urethral/Mucosal 2 % Lidocaine HCl Urethral/Mucosal 2 % 04/19/2019 12:00:00 AM EST active Lidocaine HCl Urethral/Mucosal 2 % eCW1 ([facility]) Lidocaine Hydrochloride 0.02 MG/MG Topic al Gel Lidocaine HCl Urethral/Mucosal 2 % Lidocaine HCl Urethral/Mucosal 2 % 04/19/2019 12:00:00 AM EST active Lidocaine HCl Urethral/Mucosal 2 % eCW1 ([facility]) Lidocaine Hydrochloride 0.02 MG/MG Topic al Gel Lidocaine HCl Urethral/Mucosal 2 % Lidocaine HCl Urethral/Mucosal 2 % 04/19/2019 12:00:00 AM EST active Lidocaine HCl Urethral/Mucosal 2 % eCW1 ([facility]) Lidocaine Hydrochloride 0.02 MG/MG Topic al Gel Lidocaine HCl Urethral/Mucosal 2 % Lidocaine HCl Urethral/Mucosal 2 % 04/19/2019 12:00:00 AM EST active Lidocaine HCl Urethral/Mucosal 2 % eCW1 ([facility]) Lidocaine Hydrochloride 0.02 MG/MG Topic al Gel Lidocaine HCl Urethral/Mucosal 2 % Lidocaine HCl Urethral/Mucosal 2 % 04/19/2019 12:00:00 AM EST active Lidocaine HCl Urethral/Mucosal 2 % eCW1 ([facility]) pantoprazole 20 MG Delayed Release Oral Tablet Pantopr azole Sodium 20 MG Pantoprazole Sodium 20 MG 04/11/2019 12:00:00 AM EST 1.0 {tablet} active Pantoprazole Sodium 20 MG eCW1 ( [facility]) pantoprazole 20 MG Delayed Release Oral Tablet Pantopr azole Sodium 20 MG Pantoprazole Sodium 20 MG 04/11/2019 12:00:00 AM EST 1.0 {tablet} active Pantoprazole Sodium 20 MG eCW1 ( [facility]) pantoprazole 20 MG Delayed Release Oral Tablet Pantopr azole Sodium 20 MG Pantoprazole Sodium 20 MG 04/11/2019 12:00:00 AM EST 1.0 {tablet} active Pantoprazole Sodium 20 MG eCW1 ( [facility]) pantoprazole 20 MG Delayed Release Oral Tablet PANTOPRAZOLE SODIUM 04/11/2019 12:00:00 AM EST tablet,delayed release (DR/EC) 30 T MIGUE 1 TABLET BY MOUTH ONCE DAILY (STOP FAMOTIDINE AND OMEPRAZOLE) TAKE 1 TABLET BY MOUTH ONCE DAILY (STOP FAMOTIDINE AND OMEPRAZOLE) SOLD: 05/21/2019 [facility] pantoprazole 20 MG Delayed Release Oral Tablet Pantopr azole Sodium 20 MG Pantoprazole Sodium 20 MG 04/11/2019 12:00:00 AM EST 1.0 {tablet} active Pantoprazole Sodium 20 MG eCW1 ( [facility]) pantoprazole 20 MG Delayed Release Oral Tablet Pantopr azole Sodium 20 MG Pantoprazole Sodium 20 MG 04/11/2019 12:00:00 AM EST 1.0 {tablet} active Pantoprazole Sodium 20 MG eCW1 ( [facility]) pantoprazole 20 MG Delayed Release Oral Tablet Pantopr azole Sodium 20 MG Pantoprazole Sodium 20 MG 04/11/2019 12:00:00 AM EST active 1 tablet eCW1 ([facility]) pantoprazole 20 MG Delayed Release Oral Tablet Pantopr azole Sodium 20 MG Pantoprazole Sodium 20 MG 04/11/2019 12:00:00 AM EST 1.0 {tablet} active Pantoprazole Sodium 20 MG eCW1 ( [facility]) pantoprazole 20 MG Delayed Release Oral Tablet Pantopr azole Sodium 20 MG Pantoprazole Sodium 20 MG 04/11/2019 12:00:00 AM EST active 1 tablet eCW1 ([facility]) pantoprazole 20 MG Delayed Release Oral Tablet PANTOPRAZOLE SODIUM 04/11/2019 12:00:00 AM EST tablet,delayed release (DR/EC) 30 T MIGUE 1 TABLET BY MOUTH ONCE DAILY (STOP FAMOTIDINE AND OMEPRAZOLE) TAKE 1 TABLET BY MOUTH ONCE DAILY (STOP FAMOTIDINE AND OMEPRAZOLE) SOLD: 04/13/2019 [facility] pantoprazole 20 MG Delayed Release Oral Tablet Pantopr azole Sodium 20 MG Pantoprazole Sodium 20 MG 04/11/2019 12:00:00 AM EST 1.0 {tablet} active Pantoprazole Sodium 20 MG eCW1 ( [facility]) pantoprazole 20 MG Delayed Release Oral Tablet Pantopr azole Sodium 20 MG Pantoprazole Sodium 20 MG 04/11/2019 12:00:00 AM EST 1.0 {tablet} active Pantoprazole Sodium 20 MG eCW1 ( [facility]) pantoprazole 20 MG Delayed Release Oral Tablet Pantopr azole Sodium 20 MG Pantoprazole Sodium 20 MG 04/11/2019 12:00:00 AM EST 1.0 {tablet} active Pantoprazole Sodium 20 MG eCW1 ( [facility]) 20 mg 04/01/2019 12:00:00 AM EST capsule,delayed release (DR/EC) 30 TAKE ONE CAPSULE BY MOUTH EVERY DAY 30 MINUTES BEFORE MORNING MEAL NEEDED TAKE ONE CAPSULE BY MOUTH EVERY DAY 30 MINUTES BEFORE MORNING MEAL NEEDED SOLD: 04/01/2019 [facility] Doxycycline Monohydrate 100 MG Oral Capsule Doxycycline Cannon hydrate 100 MG 03/31/2019 12:00:00 AM EST suspended 1 capsule eCW1 ([facility]) 100 mg 03/31/2019 12:00:00 AM EST capsule 10 TAKE ONE CAPSULE BY MOUTH EVERY 12 HOURS FOR 5 DAYS TAKE ONE CAPSULE BY MOUTH EVERY 12 HOURS FOR 5 DAYS SO LD: 03/31/2019 [facility] Prednisone 20 MG Oral Tablet PredniSONE 20 MG PredniSONE 20 MG 03/31/2019 12:00:00 AM EST suspended 2 tab lets eCW1 ([facility]) Prednisone 20 MG Oral Tablet PredniSONE 20 MG PredniSONE 20 MG 03/31/2019 12:00:00 AM EST active 2 tablet s eCW1 ([facility]) Omeprazole 20 MG Delayed Release Oral Tablet Omeprazole 20 M G 03/31/2019 12:00:00 AM EST active 1 capsul e 30 minutes before morning meal eCW1 ([facility]) 20 mg 03/31/2019 12:00:00 AM EST tablet 10 TAKE TWO TABLETS BY MOUTH EVERY DAY FOR 5 DAYS TAKE TWO TABLETS BY MOUTH EVERY DAY FOR 5 DAYS SOLD: 020 [facility] Doxycycline Monohydrate 100 MG Oral Capsule Doxycycline Cannon hydrate 100 MG 03/31/2019 12:00:00 AM EST active 1 capsule eCW1 ([facility]) Doxycycline Monohydrate 100 MG Oral Capsule Doxycycline Cannon hydrate 100 MG 03/31/2019 12:00:00 AM EST suspended 1 capsule eCW1 ([facility]) Prednisone 20 MG Oral Tablet PredniSONE 20 MG PredniSONE 20 MG 03/31/2019 12:00:00 AM EST suspended 2 tab lets eCW1 ([facility]) 400 mg 02/28/2019 12:00:00 AM EST capsule 60 TAKE ONE CAPSULE BY MOUTH TWICE A DAY TAKE ONE CAPSULE BY MOUTH TWICE A DAY SOLD: 03/31/2019 [facility] gabapentin 400 MG Oral Capsule Gabapentin 400 MG Gabapentin 400 MG 02/28/2019 12:00:00 AM EST active 1 capsul e eCW1 ([facility]) gabapentin 400 MG Oral Capsule Gabapentin 400 MG Gabapentin 400 MG 02/28/2019 12:00:00 AM EST 1.0 {capsule} active G abapentin 400 MG eCW1 ([facility]) gabapentin 400 MG Oral Capsule Gabapentin 400 MG Gabapentin 400 MG 02/28/2019 12:00:00 AM EST 1.0 {capsule} active G abapentin 400 MG eCW1 ([facility]) 400 mg 02/28/2019 12:00:00 AM EST capsule 60 TAKE ONE CAPSULE BY MOUTH TWICE A DAY TAKE ONE CAPSULE BY MOUTH TWICE A DAY SOLD: 05/11/2019 [facility] 400 mg 02/28/2019 12:00:00 AM EST capsule 60 TAKE ONE CAPSULE BY MOUTH TWICE A DAY TAKE ONE CAPSULE BY MOUTH TWICE A DAY SOLD: 03/02/2019 [facility] gabapentin 400 MG Oral Capsule Gabapentin 400 MG Gabapentin 400 MG 02/28/2019 12:00:00 AM EST 1.0 {capsule} active G abapentin 400 MG eCW1 ([facility]) 400 mg 02/28/2019 12:00:00 AM EST capsule 60 TAKE ONE CAPSULE BY MOUTH TWICE A DAY TAKE ONE CAPSULE BY MOUTH TWICE A DAY SOLD: 06/10/2019 [facility] 4 mg 02/28/2019 12:00:00 AM EST tablet 60 TAKE ONE TABLET BY MOUTH TWICE A DAY NEEDED TAKE ONE TABLET BY MOUTH TWICE A DAY NEEDED SOLD: 03/31/2019 [facility] 4 mg 02/28/2019 12:00:00 AM EST tablet 60 TAKE ONE TABLET BY MOUTH TWICE A DAY NEEDED TAKE ONE TABLET BY MOUTH TWICE A DAY NEEDED SOLD: 06/10/2019 [facility] gabapentin 400 MG Oral Capsule Gabapentin 400 MG Gabapentin 400 MG 02/28/2019 12:00:00 AM EST 1.0 {capsule} active G abapentin 400 MG eCW1 ([facility]) 4 mg 02/28/2019 12:00:00 AM EST tablet 60 TAKE ONE TABLET BY MOUTH TWICE A DAY NEEDED TAKE ONE TABLET BY MOUTH TWICE A DAY NEEDED SOLD: 03/02/2019 [facility] gabapentin 400 MG Oral Capsule Gabapentin 400 MG Gabapentin 400 MG 02/28/2019 12:00:00 AM EST 1.0 {capsule} active G abapentin 400 MG eCW1 ([facility]) gabapentin 400 MG Oral Capsule Gabapentin 400 MG Gabapentin 400 MG 02/28/2019 12:00:00 AM EST 1.0 {capsule} active G abapentin 400 MG eCW1 ([facility]) gabapentin 400 MG Oral Capsule Gabapentin 400 MG Gabapentin 400 MG 02/28/2019 12:00:00 AM EST active 1 capsul e eCW1 ([facility]) gabapentin 400 MG Oral Capsule Gabapentin 400 MG Gabapentin 400 MG 02/28/2019 12:00:00 AM EST active 1 capsul e eCW1 ([facility]) gabapentin 400 MG Oral Capsule Gabapentin 400 MG Gabapentin 400 MG 02/28/2019 12:00:00 AM EST active 1 capsul e eCW1 ([facility]) gabapentin 400 MG Oral Capsule Gabapentin 400 MG Gabapentin 400 MG 02/28/2019 12:00:00 AM EST 1.0 {capsule} active G abapentin 400 MG eCW1 ([facility]) gabapentin 400 MG Oral Capsule Gabapentin 400 MG Gabapentin 400 MG 02/28/2019 12:00:00 AM EST 1.0 {capsule} active G abapentin 400 MG eCW1 ([facility]) gabapentin 400 MG Oral Capsule Gabapentin 400 MG Gabapentin 400 MG 02/28/2019 12:00:00 AM EST 1.0 {capsule} active G abapentin 400 MG eCW1 ([facility]) 40 mg 02/24/2019 12:00:00 AM EST tablet 30 TAKE ONE TABLET BY MOUTH EVERY DAY AT BEDTIME TAKE ONE TABLET BY MOUTH EVERY DAY AT BEDTIME SOLD: 03/31/2019 [facility] 40 mg 02/24/2019 12:00:00 AM EST tablet 30 TAKE ONE TABLET BY MOUTH EVERY DAY AT BEDTIME TAKE ONE TABLET BY MOUTH EVERY DAY AT BEDTIME SOLD: 03/02/2019 [facility] 0.5 mg-3 mg(2.5 mg base)/3 mL 02/22/2019 12:00:0 0 AM EST solution for nebulization 360 USE 1 VIAL IN NEBULIZER FOUR GIOVANNA ES A DAY NEEDED USE 1 VIAL IN NEBULIZER FOUR TIMES A DAY NEEDED SOLD: 03/02/2019 [facility] Famotidine 40 MG Oral Tablet Famotidine 40 MG 02/21/2019 12:00:[address] active 1 tablet at bedtime eCW1 ([facility]) Famotidine 40 MG Oral Tablet Famotidine 40 MG 02/21/2019 12:00:[address] suspended 1 tablet at bedtime eCW1 ([facility]) Famotidine 40 MG Oral Tablet Famotidine 40 MG 02/21/2019 12:00:[address] suspended 1 tablet at bedtime eCW1 ([facility]) 25 mg 02/08/2019 12:00:00 AM EST capsule 90 TAKE ONE CAPSULE BY MOUTH EVERY DAY TAKE ONE CAPSULE BY MOUTH EVERY DAY SOLD: 02/10/2019 [facility] 150 mg 01/28/2019 12:00:00 AM EST tablet 180 TAKE ONE TABLET BY MOUTH TWICE A DAY TAKE ONE TABLET BY MOUTH TWICE A DAY SOLD: 01/28/2019 [facility] Prednisone 20 MG Oral Tablet PredniSONE 20 MG PredniSONE 20 MG 01/21/2019 12:00:00 AM EST suspended 2 tab lets eCW1 ([facility]) 20 mg 01/21/2019 12:00:00 AM EST tablet 10 TAKE TWO TABLETS BY MOUTH EVERY DAY FOR 5 DAYS TAKE TWO TABLETS BY MOUTH EVERY DAY FOR 5 DAYS SOLD: [facility] Prednisone 20 MG Oral Tablet PredniSONE 20 MG PredniSONE 20 MG 01/21/2019 12:00:00 AM EST active 2 tablet s eCW1 ([facility]) Doxycycline Monohydrate 100 MG Oral Capsule Doxycycline Cannon hydrate 100 MG 01/21/2019 12:00:00 AM EST suspended 1 capsule eCW1 ([facility]) Doxycycline Monohydrate 100 MG Oral Capsule Doxycycline Cannon hydrate 100 MG 01/21/2019 12:00:00 AM EST suspended 1 capsule eCW1 ([facility]) Doxycycline Monohydrate 100 MG Oral Capsule Doxycycline Cannon hydrate 100 MG 01/21/2019 12:00:00 AM EST suspended 1 capsule eCW1 ([facility]) Prednisone 20 MG Oral Tablet PredniSONE 20 MG PredniSONE 20 MG 01/21/2019 12:00:00 AM EST suspended 2 tab lets eCW1 ([facility]) Doxycycline Monohydrate 100 MG Oral Capsule Doxycycline Cannon hydrate 100 MG 01/21/2019 12:00:00 AM EST active 1 capsule eCW1 ([facility]) Doxycycline Monohydrate 100 MG Oral Capsule Doxycycline Cannon hydrate 100 MG 01/21/2019 12:00:00 AM EST suspended 1 capsule eCW1 ([facility]) 100 mg 01/21/2019 12:00:00 AM EST capsule 14 TAKE ONE CAPSULE BY MOUTH EVERY 12 HOURS FOR 7 DAYS TAKE ONE CAPSULE BY MOUTH EVERY 12 HOURS FOR 7 DAYS SO LD: 01/21/2019 [facility] Prednisone 20 MG Oral Tablet PredniSONE 20 MG PredniSONE 20 MG 01/21/2019 12:00:00 AM EST suspended 2 tab lets eCW1 ([facility]) Prednisone 20 MG Oral Tablet PredniSONE 20 MG PredniSONE 20 MG 01/21/2019 12:00:00 AM EST suspended 2 tab lets eCW1 ([facility]) 2.5 mg /3 mL (0.083 %) 01/12/2019 12:00:00 AM EST solu tion for nebulization 150 INHALE THE CONTENTS OF ONE V IAL VIA NEBULIZER THREE TIMES A DAY NEEDED FOR 14 DAYS INHALE THE CONTENTS OF ONE VIAL VIA NEBU LIZER THREE TIMES A DAY NEEDED FOR 14 DAYS SOLD: 01/21/2019 [facility] 75 mg 12/11/2018 12:00:00 AM EDT tablet 90 TAKE ONE TABLET BY MOUTH EVERY DAY TAKE ONE TABLET BY MOUTH EVERY DAY SOLD: 04/10/2019 [facility] 100 mg 11/25/2018 12:00:00 AM EDT tablet 180 TAKE ONE TABLET BY MOUTH TWICE A DAY TAKE ONE TABLET BY MOUTH TWICE A DAY SOLD: 02/20/2019 [facility] 80 mg 11/25/2018 12:00:00 AM EDT tablet 90 TAKE ONE TABLET BY MOUTH EVERY DAY TAKE ONE TABLET BY MOUTH EVERY DAY SOLD: 02/20/2019 [facility] Paroxetine Hydrochloride 30 MG Oral Tablet PAROXETINE HCL 11/20/2018 12:00:00 AM EDT tablet 90 TAKE ONE TABLET BY MOUTH EDUIN RY MORNING TAKE ONE TABLET BY MOUTH EVERY MORNING SOLD: 02/20/2019 [facility] 300 mg 11/19/2018 12:00:00 AM EDT capsule 180 TAKE ONE CAPSULE BY MOUTH TWICE A DAY TAKE ONE CAPSULE BY MOUTH TWICE A DAY SOLD: 02/20/2019 [facility] 10 mg 11/15/2018 12:00:00 AM EDT tablet 90 TAKE ONE TABLET BY MOUTH EVERY DAY TAKE ONE TABLET BY MOUTH EVERY DAY SOLD: 02/20/2019 [facility] gabapentin 300 MG Oral Capsule gabapentin 300 mg capsu le gabapentin 300 mg capsule completed gabapentin 300 MG Oral Capsule POLO ([facility]) umeclidinium 0.0625 MG/ACTUAT / vilanter ol 0.025 MG/ACTUAT Dry Powder Inhaler Anoro Ellipta 62.5 mcg-25 mcg/actuation powder for inhalation Anoro Ellipta 62.5 mcg-25 mcg/actuation powder for inhalation completed umeclidinium 0.0625 MG/ACTUAT / vilanterol 0.025 MG/ACTUAT Dry Powder Inhaler [facility] ([facility]) omeprazole 20 mg cpdr completed omeprazole 20 mg cpdr [facility] ([facility]) Cyclobenzaprine hydrochloride 10 MG Oral Tablet cyclobenzaprine 10 mg tablet TAKE ONE TABLET BY MOUTH EVERY DAY AT BEDTIME cyclobenzaprine 10 mg tablet TAKE ONE TABLET BY MOUTH EVERY DAY AT BEDTIME completed cyclobenzaprine hydrochloride 10 MG Oral Tablet [facility] ([facility]) omeprazole 20 mg cpdr completed omeprazole 20 mg cpdr [facility] ([facility]) alprazolam 0.5 mg tabs completed alprazolam 0.5 mg tabs [facility] ([facility]) alprazolam 0.5 mg tabs completed alprazolam 0.5 mg tabs [facility] ([facility]) gabapentin 300 mg caps completed gabapentin 300 mg caps [facility] ([facility]) gabapentin 400 mg caps completed gabapentin 400 mg caps [facility] ([facility]) NITROFURANTOIN, MACROCRYSTALS 25 MG / Ni trofurantoin, Monohydrate 75 MG Oral Capsule nitrofurantoin monohydrate/macrocrystals 100 mg capsule nitrofurantoin monohydrate/macrocrystals 100 mg capsule completed nitrofurantoin, macrocrystals 25 MG / nitrofurantoin, monohydrate 75 MG Oral Capsule [facility] ([facility]) paroxetine hcl 30 mg tabs compl eted paroxetine hcl 30 mg tabs [facility] ([facility]) alprazolam 0.5 mg tabs completed alprazolam 0.5 mg tabs [facility] ([facility]) Trazodone Hydrochloride 50 MG Oral Tablet trazodone 50 mg tablet 1 tab daily trazodone 50 mg tablet 1 tab daily com pleted trazodone hydrochloride 50 MG Oral Tablet [facility] ([facility]) atorvastatin calcium 80 mg tabs completed atorvastatin calcium 80 mg tabs [facility] ([facility]) topiramate 100 mg tabs completed topiramate 100 mg tabs [facility] ([facility]) Ranitidine 150 MG Oral Tablet ranitidine 150 mg tablet ranit idine 150 mg tablet completed ranitidine 150 MG Oral Tablet [facility] ([facility]) Alprazolam 0.5 MG Oral Tablet alprazolam 0.5 mg tablet TAKE ONE TABLET BY MOUTH TWICE A DAY NEEDED MAXIMUM DAILY DOSE TWO TABLETS alprazolam 0.5 mg tablet TAKE ONE TABLET BY MOUTH TWICE A DAY NEEDED MAXIMUM DAILY DOSE TWO TABLETS completed alprazolam 0. 5 MG Oral Tablet [facility] ([facility]) doxycycline monohydrate 100 mg caps completed doxycycline monohydrate 100 mg caps [facility] ([facility]) alprazolam 0.5 mg tabs completed alprazolam 0.5 mg tabs [facility] ([facility]) Prednisone 20 MG Oral Tablet prednisone 20 mg tablet prednisone 20 mg tablet completed prednisone 20 MG Oral Tablet [facility] ([facility]) tizanidine hydrochloride 4 mg tabs completed tizanidine hydrochloride 4 mg tabs [facility] ([facility]) carisoprodol 350 mg tabs completed carisoprodol 350 mg tabs [facility] ([facility]) methylprednisolone dose pack 4 mg tbpk completed methylprednisolone dose pack 4 mg tbpk [facility] ([facility]) NITROFURANTOIN, MACROCRYSTALS 25 MG / Ni trofurantoin, Monohydrate 75 MG Oral Capsule nitrofurantoin monohydrate/macrocrystals 100 mg capsule nitrofurantoin monohydrate/macrocrystals 100 mg capsule completed nitrofurantoin, macrocrystals 25 MG / nitrofurantoin, monohydrate 75 MG Oral Capsule [facility] ([facility]) Doxycycline Monohydrate 100 MG Oral Caps ule doxycycline monohydrate 100 mg capsule doxycycline monohydrate 100 mg capsule completed doxycycline monohydrate 100 MG Oral Capsule [facility] ([facility]) omeprazole 20 mg cpdr completed omeprazole 20 mg cpdr [facility] ([facility]) Sulfamethoxazole 800 MG / Trimethoprim 1 60 MG Oral Tablet sulfamethoxazole 800 mg-trimethoprim 160 mg tablet sulfamethoxazole 800 mg-trimethoprim 160 mg tablet completed sulfame thoxazole 800 MG / trimethoprim 160 MG Oral Tablet [facility] ([facility]) ezetimibe 10 mg tabs completed ezetimibe 10 mg tabs [facility] ([facility]) atorvastatin calcium 80 mg tabs completed atorvastatin calcium 80 mg tabs [facility] ([facility]) carisoprodol 350 mg tabs completed carisoprodol 350 mg tabs [facility] ([facility]) Nortriptyline 25 MG Oral Capsule nortrip tyline 25 mg capsule TAKE ONE CAPSULE BY MOUTH EVERY DAY nortriptyline 25 mg capsule TAKE ONE CAP ALEXX BY MOUTH EVERY DAY completed nortriptyline 25 MG Oral Capsule [facility] ([facility]) Trazodone Hydrochloride 50 MG Oral Tablet trazodone 50 mg tablet 1 tab daily trazodone 50 mg tablet 1 tab daily com pleted trazodone hydrochloride 50 MG Oral Tablet [facility] ([facility]) atorvastatin calcium 80 mg tabs completed atorvastatin calcium 80 mg tabs [facility] ([facility]) Prednisone 20 MG Oral Tablet prednisone 20 mg tablet prednisone 20 mg tablet completed prednisone 20 MG Oral Tablet [facility] ([facility]) famotidine 40 mg tabs completed famotidine 40 mg tabs [facility] ([facility]) Phenazopyridine hydrochloride 200 MG Ora l Tablet phenazopyridine 200 mg tablet TAKE ONE TABLET BY MOUTH THREE TIMES A DAY AFTER MEALS phenazopyridine 200 mg tablet TAKE ONE TABLET BY MOUTH THREE TIMES A DAY AFTER MEALS completed phenazopyridine hydrochloride 20 0 MG Oral Tablet [facility] ([facility]) omeprazole 20 mg cpdr completed omeprazole 20 mg cpdr [facility] ([facility]) carisoprodol 350 mg tabs completed carisoprodol 350 mg tabs [facility] ([facility]) fluticasone furoate 0.2 MG/ACTUAT Dry Po wder Inhaler Arnuity Ellipta 200 mcg/actuation powder for inhalation Arnuity Ellipta 200 mcg/actuation powder for inhalation completed fl uticasone furoate 0.2 MG/ACTUAT Dry Powder Inhaler [facility] ([facility]) doxycycline monohydrate 100 mg caps completed doxycycline monohydrate 100 mg caps [facility] ([facility]) gabapentin 100 MG Oral Capsule gabapentin 100 mg capsu le gabapentin 100 mg capsule completed gabapentin 100 MG Oral Capsule [facility] ([facility]) methylprednisolone dose pack 4 mg tbpk completed methylprednisolone dose pack 4 mg tbpk [facility] ([facility]) Nortriptyline 25 MG Oral Capsule nortrip tyline 25 mg capsule TAKE ONE CAPSULE BY MOUTH EVERY DAY nortriptyline 25 mg capsule TAKE ONE CAP ALEXX BY MOUTH EVERY DAY completed nortriptyline 25 MG Oral Capsule [facility] ([facility]) Nortriptyline 25 MG Oral Capsule nortrip tyline 25 mg capsule TAKE ONE CAPSULE BY MOUTH EVERY DAY nortriptyline 25 mg capsule TAKE ONE CAP ALEXX BY MOUTH EVERY DAY completed nortriptyline 25 MG Oral Capsule [facility] ([facility]) Famotidine 40 MG Oral Tablet famotidine 40 mg tablet famotidine 40 mg tablet completed famotidine 40 MG Oral Tablet [facility] ([facility]) lidocaine hcl jelly 2 % gel com pleted lidocaine hcl jelly 2 % gel [facility] ([facility]) pantoprazole sodium 20 mg tbec completed pantoprazole sodium 20 mg tbec [facility] ([facility]) methylprednisolone 4 mg tablets in a dose pack [id number] completed methylprednisolone 4 mg tablets in a dose pack [facility] ([facility]) famotidine 40 mg tabs completed famotidine 40 mg tabs [facility] ([facility]) doxycycline monohydrate 100 mg caps completed doxycycline monohydrate 100 mg caps [facility] ([facility]) Lidocaine Hydrochloride 0.02 MG/MG Topical Gel lidocai ne HCl 2 % mucosal jelly lidocaine HCl 2 % mucosal jelly comple alyssa lidocaine hydrochloride 0.02 MG/MG Topical Gel [facility] ([facility]) Trazodone Hydrochloride 50 MG Oral Tablet trazodone 50 mg tablet 1 tab daily trazodone 50 mg tablet 1 tab daily com pleted trazodone hydrochloride 50 MG Oral Tablet [facility] ([facility]) Trazodone Hydrochloride 50 MG Oral Tablet trazodone 50 mg tablet 1 tab daily trazodone 50 mg tablet 1 tab daily com pleted trazodone hydrochloride 50 MG Oral Tablet [facility] ([facility]) albuterol sulfate HFA 90 mcg/actuation a erosol inhaler INHALE TWO PUFFS BY MOUTH FOUR TIMES A DAY NEEDED [id number] completed [id number] 200 ACTUAT albuterol 0.09 MG/ACTUAT Metered Dose Inhaler [facility] ([facility]) paroxetine hcl 30 mg tabs compl eted paroxetine hcl 30 mg tabs [facility] ([facility]) pantoprazole sodium 20 mg tbec completed pantoprazole sodium 20 mg tbec [facility] ([facility]) ezetimibe 10 mg tabs completed ezetimibe 10 mg tabs [facility] ([facility]) topiramate 100 mg tabs completed topiramate 100 mg tabs [facility] ([facility]) gabapentin 400 mg caps completed gabapentin 400 mg caps [facility] ([facility]) topiramate 100 mg tabs completed topiramate 100 mg tabs [facility] ([facility]) famotidine 40 mg tabs completed famotidine 40 mg tabs [facility] ([facility]) Prednisone 20 MG Oral Tablet prednisone 20 mg tablet prednisone 20 mg tablet completed prednisone 20 MG Oral Tablet [facility] ([facility]) carisoprodol 350 mg tabs completed carisoprodol 350 mg tabs [facility] ([facility]) tizanidine 4 MG Oral Tablet tizanidine 4 mg tablet tizanidine 4 mg ta blet completed tizanidine 4 MG Oral Tablet [facility] ([facility]) gabapentin 300 mg caps completed gabapentin 300 mg caps [facility] ([facility]) gabapentin 400 mg caps completed gabapentin 400 mg caps [facility] ([facility]) Trazodone Hydrochloride 50 MG Oral Tablet trazodone 50 mg tablet 1 tab daily trazodone 50 mg tablet 1 tab daily com pleted trazodone hydrochloride 50 MG Oral Tablet [facility] ([facility]) famotidine 40 mg tabs completed famotidine 40 mg tabs [facility] ([facility]) famotidine 40 mg tabs completed famotidine 40 mg tabs [facility] ([facility]) alprazolam 0.5 mg tabs completed alprazolam 0.5 mg tabs [facility] ([facility]) tizanidine hydrochloride 4 mg tabs completed tizanidine hydrochloride 4 mg tabs [facility] ([facility]) prednisone 20 mg tabs completed prednisone 20 mg tabs [facility] ([facility]) Baclofen 10 MG Oral Tablet baclofen 10 mg tablet baclofen 10 mg tablet completed Baclofen 10 MG Oral Table t [facility] ([facility]) methylprednisolone dose pack 4 mg tbpk completed methylprednisolone dose pack 4 mg tbpk [place] ([facility]) Fluzone Quad (PF) 60 mcg (15 m cg x 4)/0.5 mL IM suspension INJECT DIRECTED [id number] completed 0.5 ML influenza A virus A/[facility]/[id number] (H1N1) antigen 0.03 MG/ML / influenza A virus A/[facility] (H3N2) antigen 0.03 MG/ML / influenza B virus B/[facility]30704/2012 antigen 0.03 MG/ML / influenza B virus B/[place] antigen 0.03 MG/ML Injection [Fluzone Quadrivalent ] [facility] ([facility]) Alprazolam 0.5 MG Oral Tablet alprazolam 0.5 mg tablet TAKE ONE TABLET BY MOUTH TWICE A DAY NEEDED MAXIMUM DAILY DOSE TWO TABLETS alprazolam 0.5 mg tablet TAKE ONE TABLET BY MOUTH TWICE A DAY NEEDED MAXIMUM DAILY DOSE TWO TABLETS completed alprazolam 0.5 MG Oral Tablet [facility] ([facility]) gabapentin 400 mg caps completed gabapentin 400 mg caps [facility] ([facility]) pantoprazole sodium 20 mg tbec completed pantoprazole sodium 20 mg tbec [facility] ([facility]) omeprazole 20 mg cpdr completed omeprazole 20 mg cpdr [facility] ([facility]) ipratropium/ tiff albuter completed ipratropium/ tiff albuter [facility] ([facility]) paroxetine hcl 30 mg tabs compl eted paroxetine hcl 30 mg tabs [facility] ([facility]) hydroco/apap tab 5-325mg completed hydroco/apap tab 5-325mg [facility] ([facility]) doxycycline monohydrate 100 mg caps completed doxycycline monohydrate 100 mg caps [facility] ([facility]) Doxycycline Monohydrate 100 MG Oral Caps ule doxycycline monohydrate 100 mg capsule doxycycline monohydrate 100 mg capsule completed doxycycline monohydrate 100 MG Oral Capsule [facility] ([facility]) omeprazole 20 mg cpdr completed omeprazole 20 mg cpdr [facility] ([facility]) atorvastatin calcium 80 mg tabs completed atorvastatin calcium 80 mg tabs [facility] ([facility]) doxycycline monohydrate 100 mg caps completed doxycycline monohydrate 100 mg caps [facility] ([facility]) gabapentin 400 mg caps completed gabapentin 400 mg caps [facility] ([facility]) methylprednisolone 4 mg tablets in a dose pack [id number] completed methylprednisolone 4 mg tablets in a dose pack [facility] ([facility]) Famotidine 40 MG Oral Tablet famotidine 40 mg tablet famotidine 40 mg tablet completed famotidine 40 MG Oral Tablet [facility] ([facility]) doxycycline monohydrate 100 mg caps completed doxycycline monohydrate 100 mg caps [facility] ([facility]) clopidogrel 75 mg tabs completed clopidogrel 75 mg tabs [facility] ([facility]) topiramate 100 mg tabs completed topiramate 100 mg tabs [facility] ([facility]) gabapentin 400 mg caps completed gabapentin 400 mg caps [facility] ([facility]) tizanidine hydrochloride 4 mg tabs completed tizanidine hydrochloride 4 mg tabs [facility] ([facility]) paroxetine hcl 30 mg tabs compl eted paroxetine hcl 30 mg tabs [facility] ([facility]) Carisoprodol 350 MG Oral Tablet carisopr odol 350 mg tablet Take 1 tablet 3 times a day by oral route as needed for 5 days. carisoprodol 350 mg tablet Take 1 tablet 3 times a day by oral route as needed for 5 days. 1 completed carisoprodol 350 MG Oral Tablet [facility] ( [facility]) Doxycycline Monohydrate 100 MG Oral Caps ule doxycycline monohydrate 100 mg capsule doxycycline monohydrate 100 mg capsule completed doxycycline monohydrate 100 MG Oral Capsule [facility] ([facility]) alprazolam 0.5 mg tabs completed alprazolam 0.5 mg tabs [facility] ([facility]) clopidogrel 75 mg tabs completed clopidogrel 75 mg tabs [facility] ([facility]) Carisoprodol 350 MG Oral Tablet carisopr odol 350 mg tablet Take 1 tablet 3 times a day by oral route as needed for 5 days. carisoprodol 350 mg tablet Take 1 tablet 3 times a day by oral route as needed for 5 days. 1 completed carisoprodol 350 MG Oral Tablet [facility] ( [facility]) clopidogrel 75 mg tabs completed clopidogrel 75 mg tabs [facility] ([facility]) prednisone 20 mg tabs completed prednisone 20 mg tabs [facility] ([facility]) Carisoprodol 350 MG Oral Tablet carisopr odol 350 mg tablet Take 1 tablet 3 times a day by oral route as needed for 5 days. carisoprodol 350 mg tablet Take 1 tablet 3 times a day by oral route as needed for 5 days. 1 completed carisoprodol 350 MG Oral Tablet [facility] ( [facility]) Prednisone 20 MG Oral Tablet prednisone 20 mg tablet prednisone 20 mg tablet completed prednisone 20 MG Oral Tablet [facility] ([facility]) Lidocaine Hydrochloride 0.02 MG/MG Topical Gel lidocai ne HCl 2 % mucosal jelly lidocaine HCl 2 % mucosal jelly comple alyssa lidocaine hydrochloride 0.02 MG/MG Topical Gel [facility] ([facility]) topiramate 100 mg tabs completed topiramate 100 mg tabs [facility] ([facility]) Carisoprodol 350 MG Oral Tablet carisopr odol 350 mg tablet Take 1 tablet 3 times a day by oral route as needed for 5 days. carisoprodol 350 mg tablet Take 1 tablet 3 times a day by oral route as needed for 5 days. 1 completed carisoprodol 350 MG Oral Tablet [facility] ( [facility]) lidocaine hcl jelly 2 % gel com pleted lidocaine hcl jelly 2 % gel [facility] ([facility]) pantoprazole sodium 20 mg tbec completed pantoprazole sodium 20 mg tbec [facility] ([facility]) Nortriptyline 25 MG Oral Capsule nortrip tyline 25 mg capsule TAKE ONE CAPSULE BY MOUTH EVERY DAY nortriptyline 25 mg capsule TAKE ONE CAPSULE BY MOUTH EVERY DAY completed nortriptyline 25 MG Oral Capsule [facility] ([facility]) lidocaine 5 % topical patch [id number] com pleted lidocaine 0.05 MG/MG Medicated Patch [facility] ([facility]) atorvastatin calcium 80 mg tabs completed atorvastatin calcium 80 mg tabs [facility] ([facility]) Cyclobenzaprine hydrochloride 10 MG Oral Tablet cyclobenzaprine 10 mg tablet TAKE ONE TABLET BY MOUTH EVERY DAY AT BEDTIME cyclobenzaprine 10 mg tablet TAKE ONE TABLET BY MOUTH EVERY DAY AT BEDTIME completed cyclobenzaprine hydrochloride 10 MG Oral Tablet [facility] ([facility]) omeprazole 20 mg cpdr completed omeprazole 20 mg cpdr [facility] ([facility]) clopidogrel 75 mg tabs completed clopidogrel 75 mg tabs [facility] ([facility]) lidocaine hcl jelly 2 % gel com pleted lidocaine hcl jelly 2 % gel [facility] ([facility]) Carisoprodol 350 MG Oral Tablet carisopr odol 350 mg tablet Take 1 tablet 3 times a day by oral route as needed for 5 days. carisoprodol 350 mg tablet Take 1 tablet 3 times a day by oral route as needed for 5 days. 1 completed carisoprodol 350 MG Oral Tablet [facility] ( [facility]) topiramate 100 mg tabs completed topiramate 100 mg tabs [facility] ([facility]) methylprednisolone 4 mg tablets in a dose pack [id number] completed methylprednisolone 4 mg tablets in a dose pack [facility] ([facility]) Prednisone 20 MG Oral Tablet prednisone 20 mg tablet prednisone 20 mg tablet completed prednisone 20 MG Oral Tablet [facility] ([facility]) tizanidine hydrochloride 4 mg tabs completed tizanidine hydrochloride 4 mg tabs [facility] ([facility]) gabapentin 300 mg caps completed gabapentin 300 mg caps [facility] ([facility]) Lidocaine Hydrochloride 0.02 MG/MG Topical Gel lidocai ne HCl 2 % mucosal jelly lidocaine HCl 2 % mucosal jelly comple alyssa lidocaine hydrochloride 0.02 MG/MG Topical Gel [facility] ([facility]) albuterol sulfate HFA 90 mcg/actuation a erosol inhaler INHALE TWO PUFFS BY MOUTH FOUR TIMES A DAY NEEDED [id number] completed [id number] 200 ACTUAT albuterol 0.09 MG/ACTUAT Metered Dose Inhaler [facility] ([facility]) Carisoprodol 350 MG Oral Tablet carisopr odol 350 mg tablet Take 1 tablet 3 times a day by oral route as needed for 5 days. carisoprodol 350 mg tablet Take 1 tablet 3 times a day by oral route as needed for 5 days. 1 completed carisoprodol 350 MG Oral Tablet [facility] ( [facility]) pantoprazole 20 MG Delayed Release Oral Tablet pantoprazole 20 mg tablet,delayed release pantoprazole 20 mg tablet,delayed release completed pantoprazole 20 MG Delayed Release Oral Tablet [facility] ([facility]) ezetimibe 10 mg tabs completed ezetimibe 10 mg tabs [facility] ([facility]) carisoprodol 350 mg tabs completed carisoprodol 350 mg tabs [facility] ([facility]) gabapentin 400 mg caps completed gabapentin 400 mg caps [facility] ([facility]) omeprazole 20 mg cpdr completed omeprazole 20 mg cpdr [facility] ([facility]) Alprazolam 0.5 MG Oral Tablet alprazolam 0.5 mg tablet TAKE ONE TABLET BY MOUTH TWICE A DAY NEEDED MAXIMUM DAILY DOSE TWO TABLETS alprazolam 0.5 mg tablet TAKE ONE TABLET BY MOUTH TWICE A DAY NEEDED MAXIMUM DAILY DOSE TWO TABLETS completed alprazolam 0.5 MG Oral Tablet [facility] ([facility]) Carisoprodol 350 MG Oral Tablet carisopr odol 350 mg tablet Take 1 tablet 3 times a day by oral route as needed for 5 days. carisoprodol 350 mg tablet Take 1 tablet 3 times a day by oral route as needed for 5 days. 1 completed carisoprodol 350 MG Oral Tablet [facility] ( [facility]) Baclofen 10 MG Oral Tablet baclofen 10 mg tablet baclofen 10 mg tablet completed baclofen 10 MG Oral Table t [facility] ([facility]) Lidocaine Hydrochloride 0.02 MG/MG Topical Gel lidocai ne HCl 2 % mucosal jelly lidocaine HCl 2 % mucosal jelly comple alyssa lidocaine hydrochloride 0.02 MG/MG Topical Gel [facility] ([facility]) Lidocaine Hydrochloride 0.02 MG/MG Topical Gel lidocai ne HCl 2 % mucosal jelly lidocaine HCl 2 % mucosal jelly comple alyssa lidocaine hydrochloride 0.02 MG/MG Topical Gel [facility] ([facility]) Phenazopyridine hydrochloride 200 MG Ora l Tablet phenazopyridine 200 mg tablet TAKE ONE TABLET BY MOUTH THREE TIMES A DAY AFTER MEALS phenazopyridine 200 mg tablet TAKE ONE TABLET BY MOUTH THREE TIMES A DAY AFTER MEALS completed phenazopyridine hydrochloride 20 0 MG Oral Tablet [facility] ([facility]) Trazodone Hydrochloride 50 MG Oral Tablet trazodone 50 mg tablet 1 tab daily trazodone 50 mg tablet 1 tab daily com pleted trazodone hydrochloride 50 MG Oral Tablet [facility] ([facility]) doxycycline monohydrate 100 mg caps completed doxycycline monohydrate 100 mg caps [facility] ([facility]) hydroco/apap tab 5-325mg completed hydroco/apap tab 5-325mg [facility] ([facility]) gabapentin 100 MG Oral Capsule gabapentin 100 mg capsu le gabapentin 100 mg capsule completed gabapentin 100 MG Oral Capsule [facility] ([facility]) atorvastatin calcium 80 mg tabs completed atorvastatin calcium 80 mg tabs [facility] ([facility]) Lidocaine Hydrochloride 0.02 MG/MG Topical Gel lidocai ne HCl 2 % mucosal jelly lidocaine HCl 2 % mucosal jelly comple alyssa lidocaine hydrochloride 0.02 MG/MG Topical Gel [facility] ([facility]) albuterol sulfate HFA 90 mcg/actuation a erosol inhaler INHALE TWO PUFFS BY MOUTH FOUR TIMES A DAY NEEDED [id number] completed [id number] 200 ACTUAT albuterol 0.09 MG/ACTUAT Metered Dose Inhaler [facility] ([facility]) Prednisone 20 MG Oral Tablet prednisone 20 mg tablet prednisone 20 mg tablet completed prednisone 20 MG Oral Tablet [facility] ([facility]) clopidogrel 75 mg tabs completed clopidogrel 75 mg tabs [facility] ([facility]) pantoprazole sodium 20 mg tbec completed pantoprazole sodium 20 mg tbec [facility] ([facility]) alprazolam 0.5 mg tabs completed alprazolam 0.5 mg tabs [facility] [facility] alprazolam 0.5 mg tabs completed alprazolam 0.5 mg tabs [facility] ([facility]) famotidine 40 mg tabs completed famotidine 40 mg tabs [facility] ([facility]) gabapentin 300 mg caps completed gabapentin 300 mg caps [facility] ([facility]) umeclidinium 0.0625 MG/ACTUAT / vilanter ol 0.025 MG/ACTUAT Dry Powder Inhaler Anoro Ellipta 62.5 mcg-25 mcg/actuation powder for inhalation INHALE ONE PUFF BY MOUTH EVERY DAY Anoro Ellipta 62.5 mcg-25 mcg/actuation powder for inhalation INHALE ONE PUFF BY MOUTH EVERY DAY com pleted umeclidinium 0.0625 MG/ACTUAT / vilanterol 0.025 MG/ACTUAT Dry Powder Inhaler [facility] ([facility]) tizanidine hydrochloride 4 mg tabs completed tizanidine hydrochloride 4 mg tabs [facility] ([facility]) gabapentin 300 mg caps completed gabapentin 300 mg caps [facility] ([facility]) ezetimibe 10 mg tabs completed ezetimibe 10 mg tabs [facility] ([facility]) Lidocaine Hydrochloride 0.02 MG/MG Topical Gel lidocai ne HCl 2 % mucosal jelly lidocaine HCl 2 % mucosal jelly comple alyssa lidocaine hydrochloride 0.02 MG/MG Topical Gel [facility] ([facility]) Nortriptyline 25 MG Oral Capsule nortrip tyline 25 mg capsule TAKE ONE CAPSULE BY MOUTH EVERY DAY nortriptyline 25 mg capsule TAKE ONE CAPSULE BY MOUTH EVERY DAY completed nortriptyline 25 MG Oral Capsule [facility] ([facility]) prednisone 20 mg tabs completed prednisone 20 mg tabs [facility] ([facility]) ipratropium/ tiff albuter completed ipratropium/ tiff albuter [facility] ([facility]) doxycycline monohydrate 100 mg caps completed doxycycline monohydrate 100 mg caps [facility] ([facility]) Lidocaine Hydrochloride 0.02 MG/MG Topical Gel lidocai ne HCl 2 % mucosal jelly lidocaine HCl 2 % mucosal jelly comple alyssa lidocaine hydrochloride 0.02 MG/MG Topical Gel [facility] ([facility]) atorvastatin calcium 80 mg tabs completed atorvastatin calcium 80 mg tabs [facility] ([facility]) doxycycline monohydrate 100 mg caps completed doxycycline monohydrate 100 mg caps [facility] ([facility]) Acetaminophen 325 MG / Hydrocodone Sony trate 5 MG Oral Tablet hydrocodone 5 mg- acetaminophen 325 mg tablet hydrocodone 5 mg-acetaminophen 325 mg tablet completed acetaminophen 325 MG / hydrocodone bitartrate 5 MG Oral Tablet [facility] ([facility]) famotidine 40 mg tabs completed famotidine 40 mg tabs [facility] ([facility]) Carisoprodol 350 MG Oral Tablet carisopr odol 350 mg tablet Take 1 tablet 3 times a day by oral route as needed for 5 days. carisoprodol 350 mg tablet Take 1 tablet 3 times a day by oral route as needed for 5 days. 1 completed carisoprodol 350 MG Oral Tablet [facility] ( [facility]) NITROFURANTOIN, MACROCRYSTALS 25 MG / Ni trofurantoin, Monohydrate 75 MG Oral Capsule nitrofurantoin monohydrate/macrocrystals 100 mg capsule nitrofurantoin monohydrate/macrocrystals 100 mg capsule completed nitrofurantoin, macrocrystals 25 MG / nitrofurantoin, monohydrate 75 MG Oral Capsule [facility] ([facility]) ipratropium/ tiff albuter completed ipratropium/ tiff albuter [facility] ([facility]) lidocaine hcl jelly 2 % gel com pleted lidocaine hcl jelly 2 % gel [facility] ([facility]) carisoprodol 350 mg tabs completed carisoprodol 350 mg tabs [facility] ([facility]) lidocaine 5 % topical patch [id number] com pleted lidocaine 0.05 MG/MG Medicated Patch [facility] ([facility]) Famotidine 40 MG Oral Tablet famotidine 40 mg tablet famotidine 40 mg tablet completed famotidine 40 MG Oral Tablet [facility] ([facility]) Albuterol 0.833 MG/ML / Ipratropium Brom simin 0.167 MG/ML Inhalant Solution ipratropium 0.5 mg-albuterol 3 mg (2.5 mg base)/3 mL nebulization soln twice a day as needed ipratropium 0.5 mg-albuterol 3 mg (2.5 m g base)/3 mL nebulization soln twice a day as needed completed albuterol 0.833 MG/ML / ipratropium bromide 0.167 MG/ML Inhalation Solution [facility] ([facility]) gabapentin 400 mg caps completed gabapentin 400 mg caps [facility] ([facility]) Omeprazole 20 MG Delayed Release Oral Ca psule omeprazole 20 mg capsule,delayed release TAKE ONE CAPSULE BY MOUTH EVERY DAY 30 MINUTES BEFORE MORNING MEAL NEEDED omeprazole 20 mg capsule,delayed release TAKE ONE CAPSULE BY MOUTH EVERY DAY 30 MINUTES BEFORE MORNING MEAL NEEDED completed omeprazole 20 MG Delayed Release Oral Capsule [facility] ([facility]) pantoprazole sodium 20 mg tbec completed pantoprazole sodium 20 mg tbec [facility] ([facility]) clopidogrel 75 mg tabs completed clopidogrel 75 mg tabs [facility] ([facility]) fluticasone furoate 0.2 MG/ACTUAT Dry Po wder Inhaler Arnuity Ellipta 200 mcg/actuation powder for inhalation Arnuity Ellipta 200 mcg/actuation powder for inhalation completed flu ticasone furoate 0.2 MG/ACTUAT Dry Powder Inhaler [facility] ([facility]) Ranitidine 150 MG Oral Tablet ranitidine 150 mg tablet ranit idine 150 mg tablet completed Ranitidine 150 MG Oral Tablet [facility] ([facility]) Ranitidine 150 MG Oral Tablet ranitidine 150 mg tablet ranit idine 150 mg tablet completed ranitidine 150 MG Oral Tablet [facility] ([facility]) alprazolam 0.5 mg tabs completed alprazolam 0.5 mg tabs [facility] ([facility]) paroxetine hcl 30 mg tabs compl eted paroxetine hcl 30 mg tabs [facility] ([facility]) tizanidine 4 MG Oral Tablet tizanidine 4 mg tablet tizanidine 4 mg ta blet completed tizanidine 4 MG Oral Tablet [facility] ([facility]) Famotidine 40 MG Oral Tablet famotidine 40 mg tablet famotidine 40 mg tablet completed famotidine 40 MG Oral Tablet [facility] ([facility]) carisoprodol 350 mg tabs completed carisoprodol 350 mg tabs [facility] ([facility]) methylprednisolone 4 mg tablets in a dose pack [id number] completed methylprednisolone 4 mg tablets in a dose pack [facility] ([facility]) topiramate 100 mg tabs completed topiramate 100 mg tabs [facility] ([facility]) famotidine 40 mg tabs completed famotidine 40 mg tabs [facility] ([facility]) atorvastatin calcium 80 mg tabs completed atorvastatin calcium 80 mg tabs [facility] ([facility]) Carisoprodol 350 MG Oral Tablet carisopr odol 350 mg tablet Take 1 tablet 3 times a day by oral route as needed for 5 days. carisoprodol 350 mg tablet Take 1 tablet 3 times a day by oral route as needed for 5 days. 1 completed carisoprodol 350 MG Oral Tablet [facility] ( [facility]) methylprednisolone 4 mg tablets in a dose pack [id number] completed methylprednisolone 4 mg tablets in a dose pack [facility] ([facility]) Acetaminophen 325 MG / Hydrocodone Sony trate 5 MG Oral Tablet hydrocodone 5 mg- acetaminophen 325 mg tablet hydrocodone 5 mg-acetaminophen 325 mg tablet completed acetaminophen 325 MG / hydrocodone bitartrate 5 MG Oral Tablet [facility] ([facility]) Carisoprodol 350 MG Oral Tablet carisopr odol 350 mg tablet Take 1 tablet 3 times a day by oral route as needed for 5 days. carisoprodol 350 mg tablet Take 1 tablet 3 times a day by oral route as needed for 5 days. 1 completed carisoprodol 350 MG Oral Tablet [facility] ( [facility]) ezetimibe 10 mg tabs completed ezetimibe 10 mg tabs [facility] ([facility]) ipratropium/ tiff albuter completed ipratropium/ tiff albuter [facility] ([facility]) ipratropium/ tiff albuter completed ipratropium/ tiff albuter [facility] ([facility]) pantoprazole sodium 20 mg tbec completed pantoprazole sodium 20 mg tbec [facility] ([facility]) Ranitidine 150 MG Oral Tablet ranitidine 150 mg tablet ranit idine 150 mg tablet completed ranitidine 150 MG Oral Tablet [facility] ([facility]) Albuterol 0.833 MG/ML / Ipratropium Brom simin 0.167 MG/ML Inhalant Solution ipratropium 0.5 mg-albuterol 3 mg (2.5 mg base)/3 mL nebulization soln twice a day as needed ipratropium 0.5 mg-albuterol 3 mg (2.5 m g base)/3 mL nebulization soln twice a day as needed completed albuterol 0.833 MG/ML / ipratropium bromide 0.167 MG/ML Inhalation Solution [facility] ([facility]) Cyclobenzaprine hydrochloride 10 MG Oral Tablet cyclobenzaprine 10 mg tablet TAKE ONE TABLET BY MOUTH EVERY DAY AT BEDTIME cyclobenzaprine 10 mg tablet TAKE ONE TABLET BY MOUTH EVERY DAY AT BEDTIME completed cyclobenzaprine hydrochloride 10 MG Oral Tablet [facility] ([facility]) Phenazopyridine hydrochloride 200 MG Ora l Tablet phenazopyridine 200 mg tablet TAKE ONE TABLET BY MOUTH THREE TIMES A DAY AFTER MEALS phenazopyridine 200 mg tablet TAKE ONE TABLET BY MOUTH THREE TIMES A DAY AFTER MEALS completed phenazopyridine hydrochloride 20 0 MG Oral Tablet [facility] ([facility]) Albuterol 0.833 MG/ML / Ipratropium Brom simin 0.167 MG/ML Inhalant Solution ipratropium 0.5 mg-albuterol 3 mg (2.5 mg base)/3 mL nebulization soln twice a day as needed ipratropium 0.5 mg-albuterol 3 mg (2.5 m g base)/3 mL nebulization soln twice a day as needed completed albuterol 0.833 MG/ML / ipratropium bromide 0.167 MG/ML Inhalation Solution [facility] ([facility]) methylprednisolone dose pack 4 mg tbpk completed methylprednisolone dose pack 4 mg tbpk [facility] ([facility]) Nortriptyline 25 MG Oral Capsule nortrip tyline 25 mg capsule TAKE ONE CAPSULE BY MOUTH EVERY DAY nortriptyline 25 mg capsule TAKE ONE CAPSULE BY MOUTH EVERY DAY completed nortriptyline 25 MG Oral Capsule [facility] ([facility]) Trazodone Hydrochloride 50 MG Oral Tablet trazodone 50 mg tablet 1 tab daily trazodone 50 mg tablet 1 tab daily com pleted trazodone hydrochloride 50 MG Oral Tablet [facility] ([facility]) Prednisone 20 MG Oral Tablet prednisone 20 mg tablet prednisone 20 mg tablet completed prednisone 20 MG Oral Tablet [facility] ([facility]) Acetaminophen 325 MG / Hydrocodone Sony trate 5 MG Oral Tablet hydrocodone 5 mg- acetaminophen 325 mg tablet hydrocodone 5 mg-acetaminophen 325 mg tablet completed acetaminophen 325 MG / hydrocodone bitartrate 5 MG Oral Tablet [facility] ([facility]) Acetaminophen 325 MG / Hydrocodone Sony trate 5 MG Oral Tablet hydrocodone 5 mg- acetaminophen 325 mg tablet hydrocodone 5 mg-acetaminophen 325 mg tablet completed acetaminophen 325 MG / hydrocodone bitartrate 5 MG Oral Tablet [facility] ([facility]) tizanidine hydrochloride 4 mg tabs completed tizanidine hydrochloride 4 mg tabs [facility] ([facility]) lidocaine hcl jelly 2 % gel com pleted lidocaine hcl jelly 2 % gel [facility] ([facility]) Ranitidine 150 MG Oral Tablet ranitidine 150 mg tablet ranit idine 150 mg tablet completed ranitidine 150 MG Oral Tablet [facility] ([facility]) umeclidinium 0.0625 MG/ACTUAT / vilanter ol 0.025 MG/ACTUAT Dry Powder Inhaler Anoro Ellipta 62.5 mcg-25 mcg/actuation powder for inhalation Anoro Ellipta 62.5 mcg-25 mcg/actuation powder for inhalation completed umeclidinium 0.0625 MG/ACTUAT / vilanterol 0.025 MG/ACTUAT Dry Powder Inhaler [facility] ([facility]) tizanidine hydrochloride 4 mg tabs completed tizanidine hydrochloride 4 mg tabs [facility] ([facility]) Famotidine 40 MG Oral Tablet famotidine 40 mg tablet famotidine 40 mg tablet completed famotidine 40 MG Oral Tablet [facility] ([facility]) Alprazolam 0.5 MG Oral Tablet alprazolam 0.5 mg tablet TAKE ONE TABLET BY MOUTH TWICE A DAY NEEDED MAXIMUM DAILY DOSE TWO TABLETS alprazolam 0.5 mg tablet TAKE ONE TABLET BY MOUTH TWICE A DAY NEEDED MAXIMUM DAILY DOSE TWO TABLETS completed alprazolam 0.5 MG Oral Tablet [facility] ([facility]) Nortriptyline 25 MG Oral Capsule nortrip tyline 25 mg capsule TAKE ONE CAPSULE BY MOUTH EVERY DAY nortriptyline 25 mg capsule TAKE ONE CAPSULE BY MOUTH EVERY DAY completed nortriptyline 25 MG Oral Capsule [facility] ([facility]) pantoprazole 20 MG Delayed Release Oral Tablet pantoprazole 20 mg tablet,delayed release pantoprazole 20 mg tablet,delayed release completed pantoprazole 20 MG Delayed Release Oral Tablet [facility] ([facility]) doxycycline monohydrate 100 mg caps completed doxycycline monohydrate 100 mg caps [facility] ([facility]) methylprednisolone dose pack 4 mg tbpk completed methylprednisolone dose pack 4 mg tbpk [facility] ([facility]) gabapentin 300 mg caps completed gabapentin 300 mg caps [facility] ([facility]) methylprednisolone dose pack 4 mg tbpk completed methylprednisolone dose pack 4 mg tbpk [facility] ([facility]) methylprednisolone dose pack 4 mg tbpk completed methylprednisolone dose pack 4 mg tbpk [facility] ([facility]) clopidogrel 75 mg tabs completed clopidogrel 75 mg tabs [facility] ([facility]) tizanidine 4 MG Oral Tablet tizanidine 4 mg tablet tizanidine 4 mg ta blet completed tizanidine 4 MG Oral Tablet [facility] ([facility]) Sulfamethoxazole 800 MG / Trimethoprim 1 60 MG Oral Tablet sulfamethoxazole 800 mg-trimethoprim 160 mg tablet sulfamethoxazole 800 mg-trimethoprim 160 mg tablet completed sulfame thoxazole 800 MG / trimethoprim 160 MG Oral Tablet [facility] ([facility]) Sulfamethoxazole 800 MG / Trimethoprim 1 60 MG Oral Tablet sulfamethoxazole 800 mg-trimethoprim 160 mg tablet sulfamethoxazole 800 mg-trimethoprim 160 mg tablet completed sulfame thoxazole 800 MG / trimethoprim 160 MG Oral Tablet [facility] ([facility]) paroxetine hcl 30 mg tabs compl eted paroxetine hcl 30 mg tabs [facility] ([facility]) NITROFURANTOIN, MACROCRYSTALS 25 MG / Ni trofurantoin, Monohydrate 75 MG Oral Capsule nitrofurantoin monohydrate/macrocrystals 100 mg capsule nitrofurantoin monohydrate/macrocrystals 100 mg capsule completed nitrofurantoin, macrocrystals 25 MG / nitrofurantoin, monohydrate 75 MG Oral Capsule [facility] ([facility]) hydroco/apap tab 5-325mg completed hydroco/apap tab 5-325mg [facility] ([facility]) Acetaminophen 325 MG / Hydrocodone Sony trate 5 MG Oral Tablet hydrocodone 5 mg- acetaminophen 325 mg tablet hydrocodone 5 mg-acetaminophen 325 mg tablet completed acetaminophen 325 MG / hydrocodone bitartrate 5 MG Oral Tablet [facility] ([facility]) gabapentin 300 mg caps completed gabapentin 300 mg caps [facility] ([facility]) Lidocaine Hydrochloride 0.02 MG/MG Topical Gel lidocai ne HCl 2 % mucosal jelly lidocaine HCl 2 % mucosal jelly comple alyssa lidocaine hydrochloride 0.02 MG/MG Topical Gel [facility] ([facility]) carisoprodol 350 mg tabs completed carisoprodol 350 mg tabs [facility] ([facility]) Cyclobenzaprine hydrochloride 10 MG Oral Tablet cyclobenzaprine 10 mg tablet TAKE ONE TABLET BY MOUTH EVERY DAY AT BEDTIME cyclobenzaprine 10 mg tablet TAKE ONE TABLET BY MOUTH EVERY DAY AT BEDTIME completed cyclobenzaprine hydrochloride 10 MG Oral Tablet [facility] ([facility]) topiramate 100 mg tabs completed topiramate 100 mg tabs [facility] ([facility]) carisoprodol 350 mg tabs completed carisoprodol 350 mg tabs [facility] ([facility]) pantoprazole 20 MG Delayed Release Oral Tablet pantoprazole 20 mg tablet,delayed release pantoprazole 20 mg tablet,delayed release completed pantoprazole 20 MG Delayed Release Oral Tablet [facility] ([facility]) doxycycline monohydrate 100 mg caps completed doxycycline monohydrate 100 mg caps [facility] ([facility]) doxycycline monohydrate 100 mg caps completed doxycycline monohydrate 100 mg caps [facility] ([facility]) paroxetine hcl 30 mg tabs compl eted paroxetine hcl 30 mg tabs [facility] ([facility]) Trazodone Hydrochloride 50 MG Oral Tablet trazodone 50 mg tablet 1 tab daily trazodone 50 mg tablet 1 tab daily com pleted trazodone hydrochloride 50 MG Oral Tablet [facility] ([facility]) atorvastatin calcium 80 mg tabs completed atorvastatin calcium 80 mg tabs [facility] ([facility]) pantoprazole sodium 20 mg tbec completed pantoprazole sodium 20 mg tbec [facility] ([facility]) Lidocaine Hydrochloride 0.02 MG/MG Topical Gel lidocai ne HCl 2 % mucosal jelly lidocaine HCl 2 % mucosal jelly comple alyssa lidocaine hydrochloride 0.02 MG/MG Topical Gel [facility] ([facility]) Acetaminophen 325 MG / Hydrocodone Sony trate 5 MG Oral Tablet hydrocodone 5 mg- acetaminophen 325 mg tablet hydrocodone 5 mg-acetaminophen 325 mg tablet completed acetaminophen 325 MG / hydrocodone bitartrate 5 MG Oral Tablet [facility] ([facility]) Acetaminophen 325 MG / Hydrocodone Sony trate 5 MG Oral Tablet hydrocodone 5 mg- acetaminophen 325 mg tablet hydrocodone 5 mg-acetaminophen 325 mg tablet completed acetaminophen 325 MG / hydrocodone bitartrate 5 MG Oral Tablet [facility] ([facility]) methylprednisolone 4 mg tablets in a dose pack [id number] completed methylprednisolone 4 mg tablets in a dose pack [facility] ([facility]) lidocaine hcl jelly 2 % gel com pleted lidocaine hcl jelly 2 % gel [facility] ([facility]) tizanidine 4 MG Oral Tablet tizanidine 4 mg tablet tizanidine 4 mg ta blet completed tizanidine 4 MG Oral Tablet [facility] ([facility]) methylprednisolone 4 mg tablets in a dose pack [id number] completed methylprednisolone 4 mg tablets in a dose pack [facility] ([facility]) ipratropium/ tiff albuter completed ipratropium/ tiff albuter [facility] ([facility]) umeclidinium 0.0625 MG/ACTUAT / vilanter ol 0.025 MG/ACTUAT Dry Powder Inhaler Anoro Ellipta 62.5 mcg-25 mcg/actuation powder for inhalation INHALE ONE PUFF BY MOUTH EVERY DAY Anoro Ellipta 62.5 mcg-25 mcg/actuation powder for inhalation INHALE ONE PUFF BY MOUTH EVERY DAY com pleted umeclidinium 0.0625 MG/ACTUAT / vilanterol 0.025 MG/ACTUAT Dry Powder Inhaler [facility] ([facility]) ezetimibe 10 mg tabs completed ezetimibe 10 mg tabs [facility] ([facility]) Fluzone Quad [id number] (PF) 60 mcg (15 m cg x 4)/0.5 mL IM suspension INJECT DIRECTED [id number] completed 0.5 ML influenza A virus A/[facility]/[id number] (H1N1) antigen 0.03 MG/ML / influenza A virus A/[facility] (H3N2) antigen 0.03 MG/ML / influenza B virus B/[facility] antigen 0.03 MG/ML / influenza B virus B/[place] antigen 0.03 MG/ML Injection [Fluzone Quadrivalent [id number]] [facility] ([facility]) Trazodone Hydrochloride 50 MG Oral Tablet trazodone 50 mg tablet 1 tab daily trazodone 50 mg tablet 1 tab daily com pleted trazodone hydrochloride 50 MG Oral Tablet [facility] ([facility]) hydroco/apap tab 5-325mg completed hydroco/apap tab 5-325mg [facility] ([facility]) Cyclobenzaprine hydrochloride 10 MG Oral Tablet cyclobenzaprine 10 mg tablet TAKE ONE TABLET BY MOUTH EVERY DAY AT BEDTIME cyclobenzaprine 10 mg tablet TAKE ONE TABLET BY MOUTH EVERY DAY AT BEDTIME completed cyclobenzaprine hydrochloride 10 MG Oral Tablet [facility] ([facility]) atorvastatin calcium 80 mg tabs completed atorvastatin calcium 80 mg tabs [facility] ([facility]) tizanidine 4 MG Oral Tablet tizanidine 4 mg tablet tizanidine 4 mg ta blet completed tizanidine 4 MG Oral Tablet [facility] ([facility]) paroxetine hcl 30 mg tabs compl eted paroxetine hcl 30 mg tabs [facility] ([facility]) pantoprazole sodium 20 mg tbec completed pantoprazole sodium 20 mg tbec [facility] ([facility]) hydroco/apap tab 5-325mg completed hydroco/apap tab 5-325mg [facility] ([facility]) topiramate 100 mg tabs completed topiramate 100 mg tabs [facility] ([facility]) Ranitidine 150 MG Oral Tablet ranitidine 150 mg tablet ranit idine 150 mg tablet completed ranitidine 150 MG Oral Tablet [facility] ([facility]) ezetimibe 10 mg tabs completed ezetimibe 10 mg tabs [facility] ([facility]) hydroco/apap tab 5-325mg completed hydroco/apap tab 5-325mg [facility] ([facility]) Ranitidine 150 MG Oral Tablet ranitidine 150 mg tablet ranit idine 150 mg tablet completed ranitidine 150 MG Oral Tablet [facility] ([facility]) Acetaminophen 325 MG / Hydrocodone Sony trate 5 MG Oral Tablet hydrocodone 5 mg- acetaminophen 325 mg tablet hydrocodone 5 mg-acetaminophen 325 mg tablet completed acetaminophen 325 MG / hydrocodone bitartrate 5 MG Oral Tablet [facility] ([facility]) Doxycycline Monohydrate 100 MG Oral Caps ule doxycycline monohydrate 100 mg capsule doxycycline monohydrate 100 mg capsule completed doxycycline monohydrate 100 MG Oral Capsule [facility] ([facility]) pantoprazole sodium 20 mg tbec completed pantoprazole sodium 20 mg tbec [facility] ([facility]) paroxetine hcl 30 mg tabs compl eted paroxetine hcl 30 mg tabs [facility] ([facility]) carisoprodol 350 mg tabs completed carisoprodol 350 mg tabs [facility] ([facility]) Alprazolam 0.5 MG Oral Tablet alprazolam 0.5 mg tablet TAKE ONE TABLET BY MOUTH TWICE A DAY NEEDED MAXIMUM DAILY DOSE TWO TABLETS alprazolam 0.5 mg tablet TAKE ONE TABLET BY MOUTH TWICE A DAY NEEDED MAXIMUM DAILY DOSE TWO TABLETS completed alprazolam 0.5 MG Oral Tablet [facility] ([facility]) Trazodone Hydrochloride 50 MG Oral Tablet trazodone 50 mg tablet 1 tab daily trazodone 50 mg tablet 1 tab daily com pleted trazodone hydrochloride 50 MG Oral Tablet [facility] ([facility]) gabapentin 300 MG Oral Capsule gabapentin 300 mg capsu le gabapentin 300 mg capsule completed gabapentin 300 MG Oral Capsule [facility] ([facility]) Trazodone Hydrochloride 50 MG Oral Tablet trazodone 50 mg tablet 1 tab daily trazodone 50 mg tablet 1 tab daily com pleted trazodone hydrochloride 50 MG Oral Tablet [facility] ([facility]) gabapentin 400 mg caps completed gabapentin 400 mg caps [facility] ([facility]) fluticasone furoate 0.2 MG/ACTUAT Dry Po wder Inhaler Arnuity Ellipta 200 mcg/actuation powder for inhalation Arnuity Ellipta 200 mcg/actuation powder for inhalation completed flu ticasone furoate 0.2 MG/ACTUAT Dry Powder Inhaler [facility] ([facility]) ezetimibe 10 mg tabs completed ezetimibe 10 mg tabs [facility] ([facility]) tizanidine 4 MG Oral Tablet tizanidine 4 mg tablet tizanidine 4 mg ta blet completed tizanidine 4 MG Oral Tablet [facility] ([facility]) Ranitidine 150 MG Oral Tablet ranitidine 150 mg tablet ranit idine 150 mg tablet completed ranitidine 150 MG Oral Tablet [place] ([facility]) famotidine 40 mg tabs completed famotidine 40 mg tabs [place] ([facility]) carisoprodol 350 mg tabs completed carisoprodol 350 mg tabs [place] ([facility]) hydroco/apap tab 5-325mg completed hydroco/apap tab 5-325mg [place] ([facility]) atorvastatin calcium 80 mg tabs completed atorvastatin calcium 80 mg tabs [place] ([facility]) pantoprazole 20 MG Delayed Release Oral Tablet pantoprazole 20 mg tablet,delayed release pantoprazole 20 mg tablet,delayed release completed pantoprazole 20 MG Delayed Release Oral Tablet [place] ([facility]) hydroco/apap tab 5-325mg completed hydroco/apap tab 5-325mg [place] ([facility]) Trazodone Hydrochloride 50 MG Oral Tablet trazodone 50 mg tablet 1 tab daily trazodone 50 mg tablet 1 tab daily com pleted trazodone hydrochloride 50 MG Oral Tablet [place] ([facility]) paroxetine hcl 30 mg tabs compl eted paroxetine hcl 30 mg tabs [place] ([facility]) umeclidinium 0.0625 MG/ACTUAT / vilanter ol 0.025 MG/ACTUAT Dry Powder Inhaler Anoro Ellipta 62.5 mcg-25 mcg/actuation powder for inhalation INHALE ONE PUFF BY MOUTH EVERY DAY Anoro Ellipta 62.5 mcg-25 mcg/actuation powder for inhalation INHALE ONE PUFF BY MOUTH EVERY DAY com pleted umeclidinium 0.0625 MG/ACTUAT / vilanterol 0.025 MG/ACTUAT Dry Powder Inhaler [place] ([facility]) carisoprodol 350 mg tabs completed carisoprodol 350 mg tabs [place] ([facility]) lidocaine hcl jelly 2 % gel com pleted lidocaine hcl jelly 2 % gel [place] ([facility]) Prednisone 20 MG Oral Tablet prednisone 20 mg tablet prednisone 20 mg tablet completed prednisone 20 MG Oral Tablet [place] ([facility]) pantoprazole 20 MG Delayed Release Oral Tablet pantoprazole 20 mg tablet,delayed release pantoprazole 20 mg tablet,delayed release completed pantoprazole 20 MG Delayed Release Oral Tablet [place] ([facility]) umeclidinium 0.0625 MG/ACTUAT / vilanter ol 0.025 MG/ACTUAT Dry Powder Inhaler Anoro Ellipta 62.5 mcg-25 mcg/actuation powder for inhalation INHALE ONE PUFF BY MOUTH EVERY DAY Anoro Ellipta 62.5 mcg-25 mcg/actuation powder for inhalation INHALE ONE PUFF BY MOUTH EVERY DAY com pleted umeclidinium 0.0625 MG/ACTUAT / vilanterol 0.025 MG/ACTUAT Dry Powder Inhaler [place] ([facility]) topiramate 100 mg tabs completed topiramate 100 mg tabs [place] ([facility]) prednisone 20 mg tabs completed prednisone 20 mg tabs [place] ([facility]) ipratropium/ tiff albuter completed ipratropium/ tiff albuter [place] ([facility]) methylprednisolone dose pack 4 mg tbpk completed methylprednisolone dose pack 4 mg tbpk [place] ([facility]) gabapentin 300 mg caps completed gabapentin 300 mg caps [place] ([facility]) Omeprazole 20 MG Delayed Release Oral Ca psule omeprazole 20 mg capsule,delayed release TAKE ONE CAPSULE BY MOUTH EVERY DAY 30 MINUTES BEFORE MORNING MEAL NEEDED omeprazole 20 mg capsule,delayed release TAKE ONE CAPSULE BY MOUTH EVERY DAY 30 MINUTES BEFORE MORNING MEAL NEEDED completed omeprazole 20 MG Delayed Release Oral Capsule [place] ([facility]) Ranitidine 150 MG Oral Tablet ranitidine 150 mg tablet ranit idine 150 mg tablet completed ranitidine 150 MG Oral Tablet [place] ([facility]) Lidocaine Hydrochloride 0.02 MG/MG Topical Gel lidocai ne HCl 2 % mucosal jelly lidocaine HCl 2 % mucosal jelly comple alyssa lidocaine hydrochloride 0.02 MG/MG Topical Gel [place] ([facility]) ipratropium/ tiff albuter completed ipratropium/ tiff albuter [place] ([facility]) methylprednisolone 4 mg tablets in a dose pack [id number] completed methylprednisolone 4 mg tablets in a dose pack [place] ([facility]) Omeprazole 20 MG Delayed Release Oral Ca psule omeprazole 20 mg capsule,delayed release TAKE ONE CAPSULE BY MOUTH EVERY DAY 30 MINUTES BEFORE MORNING MEAL NEEDED omeprazole 20 mg capsule,delayed release TAKE ONE CAPSULE BY MOUTH EVERY DAY 30 MINUTES BEFORE MORNING MEAL NEEDED completed omeprazole 20 MG Delayed Release Oral Capsule [place] ([facility]) paroxetine hcl 30 mg tabs compl eted paroxetine hcl 30 mg tabs [place] ([facility]) gabapentin 100 MG Oral Capsule gabapentin 100 mg capsu le gabapentin 100 mg capsule completed gabapentin 100 MG Oral Capsule [place] ([facility]) clopidogrel 75 mg tabs completed clopidogrel 75 mg tabs [place] ([facility]) Albuterol 0.833 MG/ML / Ipratropium Brom simin 0.167 MG/ML Inhalant Solution ipratropium 0.5 mg-albuterol 3 mg (2.5 mg base)/3 mL nebulization soln twice a day as needed ipratropium 0.5 mg-albuterol 3 mg (2.5 m g base)/3 mL nebulization soln twice a day as needed completed albuterol 0.833 MG/ML / ipratropium bromide 0.167 MG/ML Inhalation Solution [place] ([facility]) paroxetine hcl 30 mg tabs compl eted paroxetine hcl 30 mg tabs [place] ([facility]) methylprednisolone dose pack 4 mg tbpk completed methylprednisolone dose pack 4 mg tbpk [place] ([facility]) lidocaine hcl jelly 2 % gel com pleted lidocaine hcl jelly 2 % gel [place] ([facility]) fluticasone furoate 0.2 MG/ACTUAT Dry Po wder Inhaler Arnuity Ellipta 200 mcg/actuation powder for inhalation Arnuity Ellipta 200 mcg/actuation powder for inhalation completed flu ticasone furoate 0.2 MG/ACTUAT Dry Powder Inhaler [place] ([facility]) methylprednisolone dose pack 4 mg tbpk completed methylprednisolone dose pack 4 mg tbpk [place] ([facility]) ipratropium/ tiff albuter completed ipratropium/ tiff albuter [place] ([facility]) gabapentin 400 mg caps completed gabapentin 400 mg caps [place] ([facility]) NITROFURANTOIN, MACROCRYSTALS 25 MG / Ni trofurantoin, Monohydrate 75 MG Oral Capsule nitrofurantoin monohydrate/macrocrystals 100 mg capsule nitrofurantoin monohydrate/macrocrystals 100 mg capsule completed nitrofurantoin, macrocrystals 25 MG / nitrofurantoin, monohydrate 75 MG Oral Capsule [place] ([facility]) gabapentin 400 mg caps completed gabapentin 400 mg caps [place] ([facility]) Carisoprodol 350 MG Oral Tablet carisopr odol 350 mg tablet Take 1 tablet 3 times a day by oral route as needed for 5 days. carisoprodol 350 mg tablet Take 1 tablet 3 times a day by oral route as needed for 5 days. 1 completed carisoprodol 350 MG Oral Tablet [place] ( [facility]) pantoprazole 20 MG Delayed Release Oral Tablet pantoprazole 20 mg tablet,delayed release pantoprazole 20 mg tablet,delayed release completed pantoprazole 20 MG Delayed Release Oral Tablet [place] ([facility]) topiramate 100 mg tabs completed topiramate 100 mg tabs [place] ([facility]) Alprazolam 0.5 MG Oral Tablet alprazolam 0.5 mg tablet TAKE ONE TABLET BY MOUTH TWICE A DAY NEEDED MAXIMUM DAILY DOSE TWO TABLETS alprazolam 0.5 mg tablet TAKE ONE TABLET BY MOUTH TWICE A DAY NEEDED MAXIMUM DAILY DOSE TWO TABLETS completed alprazolam 0.5 MG Oral Tablet [place] ([facility]) lidocaine hcl jelly 2 % gel com pleted lidocaine hcl jelly 2 % gel [place] ([facility]) fluticasone furoate 0.2 MG/ACTUAT Dry Po wder Inhaler Arnuity Ellipta 200 mcg/actuation powder for inhalation Arnuity Ellipta 200 mcg/actuation powder for inhalation completed flu ticasone furoate 0.2 MG/ACTUAT Dry Powder Inhaler [place] ([facility]) omeprazole 20 mg cpdr completed omeprazole 20 mg cpdr [place] ([facility]) lidocaine hcl jelly 2 % gel com pleted lidocaine hcl jelly 2 % gel [place] ([facility]) clopidogrel 75 mg tabs completed clopidogrel 75 mg tabs [place] ([facility]) Ranitidine 150 MG Oral Tablet ranitidine 150 mg tablet ranit idine 150 mg tablet completed ranitidine 150 MG Oral Tablet [place] ([facility]) tizanidine hydrochloride 4 mg tabs completed tizanidine hydrochloride 4 mg tabs [place] ([facility]) methylprednisolone dose pack 4 mg tbpk completed methylprednisolone dose pack 4 mg tbpk [place] ([facility]) fluticasone furoate 0.2 MG/ACTUAT Dry Po wder Inhaler Arnuity Ellipta 200 mcg/actuation powder for inhalation Arnuity Ellipta 200 mcg/actuation powder for inhalation completed flu ticasone furoate 0.2 MG/ACTUAT Dry Powder Inhaler [place] ([facility]) ezetimibe 10 mg tabs completed ezetimibe 10 mg tabs [place] ([facility]) methylprednisolone dose pack 4 mg tbpk completed methylprednisolone dose pack 4 mg tbpk [place] ([facility]) ipratropium/ tiff albuter completed ipratropium/ tiff albuter [place] ([facility]) lidocaine 5 % topical patch [id number] com pleted lidocaine 0.05 MG/MG Medicated Patch [place] ([facility]) umeclidinium 0.0625 MG/ACTUAT / vilanter ol 0.025 MG/ACTUAT Dry Powder Inhaler Anoro Ellipta 62.5 mcg-25 mcg/actuation powder for inhalation INHALE ONE PUFF BY MOUTH EVERY DAY Anoro Ellipta 62.5 mcg-25 mcg/actuation powder for inhalation INHALE ONE PUFF BY MOUTH EVERY DAY com pleted umeclidinium 0.0625 MG/ACTUAT / vilanterol 0.025 MG/ACTUAT Dry Powder Inhaler [place] ([facility]) Acetaminophen 325 MG / Hydrocodone Sony trate 5 MG Oral Tablet hydrocodone 5 mg- acetaminophen 325 mg tablet hydrocodone 5 mg-acetaminophen 325 mg tablet completed acetaminophen 325 MG / hydrocodone bitartrate 5 MG Oral Tablet [place] ([facility]) tizanidine hydrochloride 4 mg tabs completed tizanidine hydrochloride 4 mg tabs [place] ([facility]) gabapentin 300 mg caps completed gabapentin 300 mg caps [place] ([facility]) atorvastatin calcium 80 mg tabs completed atorvastatin calcium 80 mg tabs [place] ([facility]) Prednisone 20 MG Oral Tablet prednisone 20 mg tablet prednisone 20 mg tablet completed prednisone 20 MG Oral Tablet [place] ([facility]) Ranitidine 150 MG Oral Tablet ranitidine 150 mg tablet ranit idine 150 mg tablet completed ranitidine 150 MG Oral Tablet [place] ([facility]) Carisoprodol 350 MG Oral Tablet carisopr odol 350 mg tablet Take 1 tablet 3 times a day by oral route as needed for 5 days. carisoprodol 350 mg tablet Take 1 tablet 3 times a day by oral route as needed for 5 days. 1 completed carisoprodol 350 MG Oral Tablet [place] ( [facility]) pantoprazole sodium 20 mg tbec completed pantoprazole sodium 20 mg tbec [place] ([facility]) Phenazopyridine hydrochloride 200 MG Ora l Tablet phenazopyridine 200 mg tablet TAKE ONE TABLET BY MOUTH THREE TIMES A DAY AFTER MEALS phenazopyridine 200 mg tablet TAKE ONE TABLET BY MOUTH THREE TIMES A DAY AFTER MEALS completed phenazopyridine hydrochloride 20 0 MG Oral Tablet [place] ([facility]) Doxycycline Monohydrate 100 MG Oral Caps ule doxycycline monohydrate 100 mg capsule doxycycline monohydrate 100 mg capsule completed Doxycycline Monohydrate 100 MG Oral Capsule [place] ([facility]) Trazodone Hydrochloride 50 MG Oral Tablet trazodone 50 mg tablet 1 tab daily trazodone 50 mg tablet 1 tab daily com pleted trazodone hydrochloride 50 MG Oral Tablet [place] ([facility]) ezetimibe 10 mg tabs completed ezetimibe 10 mg tabs [place] ([facility]) Acetaminophen 325 MG / Hydrocodone Sony trate 5 MG Oral Tablet hydrocodone 5 mg- acetaminophen 325 mg tablet hydrocodone 5 mg-acetaminophen 325 mg tablet completed acetaminophen 325 MG / hydrocodone bitartrate 5 MG Oral Tablet [place] ([facility]) gabapentin 300 MG Oral Capsule gabapentin 300 mg capsu le gabapentin 300 mg capsule completed gabapentin 300 MG Oral Capsule [place] ([facility]) methylprednisolone dose pack 4 mg tbpk completed methylprednisolone dose pack 4 mg tbpk [place] ([facility]) famotidine 40 mg tabs completed famotidine 40 mg tabs [place] ([facility]) pantoprazole sodium 20 mg tbec completed pantoprazole sodium 20 mg tbec [place] ([facility]) prednisone 20 mg tabs completed prednisone 20 mg tabs [place] ([facility]) carisoprodol 350 mg tabs completed carisoprodol 350 mg tabs [place] ([facility]) Alprazolam 0.5 MG Oral Tablet alprazolam 0.5 mg tablet TAKE ONE TABLET BY MOUTH TWICE A DAY NEEDED MAXIMUM DAILY DOSE TWO TABLETS alprazolam 0.5 mg tablet TAKE ONE TABLET BY MOUTH TWICE A DAY NEEDED MAXIMUM DAILY DOSE TWO TABLETS completed alprazolam 0.5 MG Oral Tablet [place] ([facility]) umeclidinium 0.0625 MG/ACTUAT / vilanter ol 0.025 MG/ACTUAT Dry Powder Inhaler Anoro Ellipta 62.5 mcg-25 mcg/actuation powder for inhalation INHALE ONE PUFF BY MOUTH EVERY DAY Anoro Ellipta 62.5 mcg-25 mcg/actuation powder for inhalation INHALE ONE PUFF BY MOUTH EVERY DAY com pleted umeclidinium 0.0625 MG/ACTUAT / vilanterol 0.025 MG/ACTUAT Dry Powder Inhaler [place] ([facility]) clopidogrel 75 mg tabs completed clopidogrel 75 mg tabs [place] ([facility]) alprazolam 0.5 mg tabs completed alprazolam 0.5 mg tabs [place] ([facility]) gabapentin 100 MG Oral Capsule gabapentin 100 mg capsu le gabapentin 100 mg capsule completed gabapentin 100 MG Oral Capsule [place] ([facility]) Acetaminophen 325 MG / Hydrocodone Sony trate 5 MG Oral Tablet hydrocodone 5 mg- acetaminophen 325 mg tablet hydrocodone 5 mg-acetaminophen 325 mg tablet completed acetaminophen 325 MG / hydrocodone bitartrate 5 MG Oral Tablet [place] ([facility]) gabapentin 300 mg caps completed gabapentin 300 mg caps [place] ([facility]) clopidogrel 75 mg tabs completed clopidogrel 75 mg tabs [place] ([facility]) Nortriptyline 25 MG Oral Capsule nortrip tyline 25 mg capsule TAKE ONE CAPSULE BY MOUTH EVERY DAY nortriptyline 25 mg capsule TAKE ONE CAPSULE BY MOUTH EVERY DAY completed nortriptyline 25 MG Oral Capsule [place] ([facility]) paroxetine hcl 30 mg tabs compl eted paroxetine hcl 30 mg tabs [place] ([facility]) famotidine 40 mg tabs completed famotidine 40 mg tabs [place] ([facility]) alprazolam 0.5 mg tabs completed alprazolam 0.5 mg tabs [place] ([facility]) Omeprazole 20 MG Delayed Release Oral Ca psule omeprazole 20 mg capsule,delayed release TAKE ONE CAPSULE BY MOUTH EVERY DAY 30 MINUTES BEFORE MORNING MEAL NEEDED omeprazole 20 mg capsule,delayed release TAKE ONE CAPSULE BY MOUTH EVERY DAY 30 MINUTES BEFORE MORNING MEAL NEEDED completed omeprazole 20 MG Delayed Release Oral Capsule [place] ([facility]) paroxetine hcl 30 mg tabs compl eted paroxetine hcl 30 mg tabs [place] ([facility]) Sulfamethoxazole 800 MG / Trimethoprim 1 60 MG Oral Tablet sulfamethoxazole 800 mg-trimethoprim 160 mg tablet sulfamethoxazole 800 mg-trimethoprim 160 mg tablet completed sulfame thoxazole 800 MG / trimethoprim 160 MG Oral Tablet [place] ([facility]) Famotidine 40 MG Oral Tablet famotidine 40 mg tablet famotidine 40 mg tablet completed famotidine 40 MG Oral Tablet [place] ([facility]) Baclofen 10 MG Oral Tablet baclofen 10 mg tablet baclofen 10 mg tablet completed Baclofen 10 MG Oral Table t [place] ([facility]) Sulfamethoxazole 800 MG / Trimethoprim 1 60 MG Oral Tablet sulfamethoxazole 800 mg-trimethoprim 160 mg tablet sulfamethoxazole 800 mg-trimethoprim 160 mg tablet completed sulfame thoxazole 800 MG / trimethoprim 160 MG Oral Tablet [place] ([facility]) gabapentin 300 mg caps completed gabapentin 300 mg caps [place] ([facility]) Nortriptyline 25 MG Oral Capsule nortrip tyline 25 mg capsule TAKE ONE CAPSULE BY MOUTH EVERY DAY nortriptyline 25 mg capsule TAKE ONE CAPSULE BY MOUTH EVERY DAY completed nortriptyline 25 MG Oral Capsule [place] ([facility]) ezetimibe 10 mg tabs completed ezetimibe 10 mg tabs [place] ([facility]) ezetimibe 10 mg tabs completed ezetimibe 10 mg tabs [place] ([facility]) prednisone 20 mg tabs completed prednisone 20 mg tabs [place] ([facility]) omeprazole 20 mg cpdr completed omeprazole 20 mg cpdr [place] ([facility]) methylprednisolone dose pack 4 mg tbpk completed methylprednisolone dose pack 4 mg tbpk [place] ([facility]) hydroco/apap tab 5-325mg completed hydroco/apap tab 5-325mg [place] ([facility]) NITROFURANTOIN, MACROCRYSTALS 25 MG / Ni trofurantoin, Monohydrate 75 MG Oral Capsule nitrofurantoin monohydrate/macrocrystals 100 mg capsule nitrofurantoin monohydrate/macrocrystals 100 mg capsule completed nitrofurantoin, macrocrystals 25 MG / nitrofurantoin, monohydrate 75 MG Oral Capsule [place] ([facility]) ipratropium/ tiff albuter completed ipratropium/ tiff albuter [place] ([facility]) Ranitidine 150 MG Oral Tablet ranitidine 150 mg tablet ranit idine 150 mg tablet completed ranitidine 150 MG Oral Tablet [place] ([facility]) famotidine 40 mg tabs completed famotidine 40 mg tabs [place] ([facility]) tizanidine hydrochloride 4 mg tabs completed tizanidine hydrochloride 4 mg tabs [place] ([facility]) NITROFURANTOIN, MACROCRYSTALS 25 MG / Ni trofurantoin, Monohydrate 75 MG Oral Capsule nitrofurantoin monohydrate/macrocrystals 100 mg capsule nitrofurantoin monohydrate/macrocrystals 100 mg capsule completed nitrofurantoin, macrocrystals 25 MG / nitrofurantoin, monohydrate 75 MG Oral Capsule [place] ([facility]) Prednisone 20 MG Oral Tablet prednisone 20 mg tablet prednisone 20 mg tablet completed Prednisone 20 MG Oral Tablet [place] ([facility]) tizanidine hydrochloride 4 mg tabs completed tizanidine hydrochloride 4 mg tabs [place] ([facility]) pantoprazole sodium 20 mg tbec completed pantoprazole sodium 20 mg tbec [place] ([facility]) famotidine 40 mg tabs completed famotidine 40 mg tabs [place] ([facility]) doxycycline monohydrate 100 mg caps completed doxycycline monohydrate 100 mg caps [place] ([facility]) Prednisone 20 MG Oral Tablet prednisone 20 mg tablet prednisone 20 mg tablet completed prednisone 20 MG Oral Tablet [place] ([facility]) gabapentin 400 mg caps completed gabapentin 400 mg caps [place] ([facility]) gabapentin 300 mg caps completed gabapentin 300 mg caps [place] ([facility]) atorvastatin calcium 80 mg tabs completed atorvastatin calcium 80 mg tabs [place] ([facility]) alprazolam 0.5 mg tabs completed alprazolam 0.5 mg tabs [place] ([facility]) Acetaminophen 325 MG / Hydrocodone Sony trate 5 MG Oral Tablet hydrocodone 5 mg- acetaminophen 325 mg tablet hydrocodone 5 mg-acetaminophen 325 mg tablet completed acetaminophen 325 MG / hydrocodone bitartrate 5 MG Oral Tablet [place] ([facility]) ipratropium/ tiff albuter completed ipratropium/ tiff albuter [place] ([facility]) Nortriptyline 25 MG Oral Capsule nortrip tyline 25 mg capsule TAKE ONE CAPSULE BY MOUTH EVERY DAY nortriptyline 25 mg capsule TAKE ONE CAPSULE BY MOUTH EVERY DAY completed nortriptyline 25 MG Oral Capsule [place] ([facility]) Nortriptyline 25 MG Oral Capsule nortrip tyline 25 mg capsule TAKE ONE CAPSULE BY MOUTH EVERY DAY nortriptyline 25 mg capsule TAKE ONE CAPSULE BY MOUTH EVERY DAY completed nortriptyline 25 MG Oral Capsule [place] ([facility]) Prednisone 20 MG Oral Tablet prednisone 20 mg tablet prednisone 20 mg tablet completed prednisone 20 MG Oral Tablet [place] ([facility]) omeprazole 20 mg cpdr completed omeprazole 20 mg cpdr [place] ([facility]) Prednisone 20 MG Oral Tablet prednisone 20 mg tablet prednisone 20 mg tablet completed prednisone 20 MG Oral Tablet [place] ([facility]) omeprazole 20 mg cpdr completed omeprazole 20 mg cpdr [place] ([facility]) Phenazopyridine hydrochloride 200 MG Ora l Tablet phenazopyridine 200 mg tablet TAKE ONE TABLET BY MOUTH THREE TIMES A DAY AFTER MEALS phenazopyridine 200 mg tablet TAKE ONE TABLET BY MOUTH THREE TIMES A DAY AFTER MEALS completed phenazopyridine hydrochloride 20 0 MG Oral Tablet [place] ([facility]) gabapentin 300 MG Oral Capsule gabapentin 300 mg capsu le gabapentin 300 mg capsule completed gabapentin 300 MG Oral Capsule [place] ([facility]) lidocaine 5 % topical patch [id number] com pleted lidocaine 0.05 MG/MG Medicated Patch [place] ([facility]) Ranitidine 150 MG Oral Tablet ranitidine 150 mg tablet ranit idine 150 mg tablet completed ranitidine 150 MG Oral Tablet [place] ([facility]) hydroco/apap tab 5-325mg completed hydroco/apap tab 5-325mg [place] ([facility]) Trazodone Hydrochloride 50 MG Oral Tablet trazodone 50 mg tablet 1 tab daily trazodone 50 mg tablet 1 tab daily com pleted trazodone hydrochloride 50 MG Oral Tablet [place] ([facility]) gabapentin 300 mg caps completed gabapentin 300 mg caps [place] ([facility]) famotidine 40 mg tabs completed famotidine 40 mg tabs [place] ([facility]) Albuterol 0.833 MG/ML / Ipratropium Brom simin 0.167 MG/ML Inhalant Solution ipratropium 0.5 mg-albuterol 3 mg (2.5 mg base)/3 mL nebulization soln twice a day as needed ipratropium 0.5 mg-albuterol 3 mg (2.5 m g base)/3 mL nebulization soln twice a day as needed completed albuterol 0.833 MG/ML / ipratropium bromide 0.167 MG/ML Inhalation Solution [place] ([facility]) prednisone 20 mg tabs completed prednisone 20 mg tabs [place] ([facility]) gabapentin 300 mg caps completed gabapentin 300 mg caps [place] ([facility]) gabapentin 400 mg caps completed gabapentin 400 mg caps [place] ([facility]) Prednisone 20 MG Oral Tablet prednisone 20 mg tablet prednisone 20 mg tablet completed prednisone 20 MG Oral Tablet [place] ([facility]) omeprazole 20 mg cpdr completed omeprazole 20 mg cpdr POLO ([facility]) Phenazopyridine hydrochloride 200 MG Ora l Tablet phenazopyridine 200 mg tablet TAKE ONE TABLET BY MOUTH THREE TIMES A DAY AFTER MEALS phenazopyridine 200 mg tablet TAKE ONE TABLET BY MOUTH THREE TIMES A DAY AFTER MEALS completed phenazopyridine hydrochloride 20 0 MG Oral Tablet POLO ([facility]) pantoprazole sodium 20 mg tbec completed pantoprazole sodium 20 mg tbec [place] ([facility]) atorvastatin calcium 80 mg tabs completed atorvastatin calcium 80 mg tabs [place] ([facility]) Ranitidine 150 MG Oral Tablet ranitidine 150 mg tablet ranit idine 150 mg tablet completed ranitidine 150 MG Oral Tablet POLO ([facility]) Phenazopyridine hydrochloride 200 MG Ora l Tablet phenazopyridine 200 mg tablet TAKE ONE TABLET BY MOUTH THREE TIMES A DAY AFTER MEALS phenazopyridine 200 mg tablet TAKE ONE TABLET BY MOUTH THREE TIMES A DAY AFTER MEALS completed phenazopyridine hydrochloride 20 0 MG Oral Tablet POLO ([facility]) Doxycycline Monohydrate 100 MG Oral Caps ule doxycycline monohydrate 100 mg capsule doxycycline monohydrate 100 mg capsule completed doxycycline monohydrate 100 MG Oral Capsule POLO ([facility]) Doxycycline Monohydrate 100 MG Oral Caps ule doxycycline monohydrate 100 mg capsule doxycycline monohydrate 100 mg capsule completed doxycycline monohydrate 100 MG Oral Capsule POLO ([facility]) Doxycycline Monohydrate 100 MG Oral Caps ule doxycycline monohydrate 100 mg capsule doxycycline monohydrate 100 mg capsule completed doxycycline monohydrate 100 MG Oral Capsule POLO ([facility]) lidocaine hcl jelly 2 % gel com pleted lidocaine hcl jelly 2 % gel POLO ([facility]) lidocaine hcl jelly 2 % gel com pleted lidocaine hcl jelly 2 % gel POLO ([facility]) tizanidine hydrochloride 4 mg tabs completed tizanidine hydrochloride 4 mg tabs POLO ([facility]) Nortriptyline 25 MG Oral Capsule nortrip tyline 25 mg capsule TAKE ONE CAPSULE BY MOUTH EVERY DAY nortriptyline 25 mg capsule TAKE ONE CAPSULE BY MOUTH EVERY DAY completed nortriptyline 25 MG Oral Capsule POLO ([facility]) atorvastatin calcium 80 mg tabs completed atorvastatin calcium 80 mg tabs [place] ([facility]) famotidine 40 mg tabs completed famotidine 40 mg tabs POL[place] ([facility]) Ranitidine 150 MG Oral Tablet ranitidine 150 mg tablet ranit idine 150 mg tablet completed ranitidine 150 MG Oral Tablet POL[place] ([facility]) alprazolam 0.5 mg tabs completed alprazolam 0.5 mg tabs POL[place] ([facility]) Ranitidine 150 MG Oral Tablet ranitidine 150 mg tablet ranit idine 150 mg tablet completed ranitidine 150 MG Oral Tablet POLO ([facility]) alprazolam 0.5 mg tabs completed alprazolam 0.5 mg tabs POLO ([facility]) Nortriptyline 25 MG Oral Capsule nortrip tyline 25 mg capsule TAKE ONE CAPSULE BY MOUTH EVERY DAY nortriptyline 25 mg capsule TAKE ONE CAPSULE BY MOUTH EVERY DAY completed nortriptyline 25 MG Oral Capsule POLO ([facility]) Trazodone Hydrochloride 50 MG Oral Tablet trazodone 50 mg tablet 1 tab daily trazodone 50 mg tablet 1 tab daily com pleted trazodone hydrochloride 50 MG Oral Tablet POLO ([facility]) Baclofen 10 MG Oral Tablet baclofen 10 mg tablet baclofen 10 mg tablet completed baclofen 10 MG Oral Table t POLO ([facility]) Lidocaine Hydrochloride 0.02 MG/MG Topical Gel lidocai ne HCl 2 % mucosal jelly lidocaine HCl 2 % mucosal jelly comple alyssa lidocaine hydrochloride 0.02 MG/MG Topical Gel POLO ([facility]) ezetimibe 10 mg tabs completed ezetimibe 10 mg tabs POL[place] ([facility]) lidocaine 5 % topical patch [id number] com pleted lidocaine 0.05 MG/MG Medicated Patch POLO ([facility]) Omeprazole 20 MG Delayed Release Oral Ca psule omeprazole 20 mg capsule,delayed release TAKE ONE CAPSULE BY MOUTH EVERY DAY 30 MINUTES BEFORE MORNING MEAL NEEDED omeprazole 20 mg capsule,delayed release TAKE ONE CAPSULE BY MOUTH EVERY DAY 30 MINUTES BEFORE MORNING MEAL NEEDED completed omeprazole 20 MG Delayed Release Oral Capsule POLO ([facility]) clopidogrel 75 mg tabs completed clopidogrel 75 mg tabs POLO ([facility]) Lidocaine Hydrochloride 0.02 MG/MG Topical Gel lidocai ne HCl 2 % mucosal jelly lidocaine HCl 2 % mucosal jelly comple alyssa lidocaine hydrochloride 0.02 MG/MG Topical Gel POLO ([facility]) Sulfamethoxazole 800 MG / Trimethoprim 1 60 MG Oral Tablet sulfamethoxazole 800 mg-trimethoprim 160 mg tablet sulfamethoxazole 800 mg-trimethoprim 160 mg tablet completed sulfame thoxazole 800 MG / trimethoprim 160 MG Oral Tablet POLO ([facility]) doxycycline monohydrate 100 mg caps completed doxycycline monohydrate 100 mg caps [facility] ([facility]) ipratropium/ tiff albuter completed ipratropium/ tiff albuter POLO ([facility]) Carisoprodol 350 MG Oral Tablet carisopr odol 350 mg tablet Take 1 tablet 3 times a day by oral route as needed for 5 days. carisoprodol 350 mg tablet Take 1 tablet 3 times a day by oral route as needed for 5 days. 1 completed carisoprodol 350 MG Oral Tablet POLO ( [facility]) gabapentin 400 mg caps completed gabapentin 400 mg caps POLO ([facility]) lidocaine 5 % topical patch [id number] com pleted lidocaine 0.05 MG/MG Medicated Patch POLO ([facility]) fluticasone furoate 0.2 MG/ACTUAT Dry Po wder Inhaler Arnuity Ellipta 200 mcg/actuation powder for inhalation Arnuity Ellipta 200 mcg/actuation powder for inhalation completed flu ticasone furoate 0.2 MG/ACTUAT Dry Powder Inhaler POLO ([facility]) Lidocaine Hydrochloride 0.02 MG/MG Topical Gel lidocai ne HCl 2 % mucosal jelly lidocaine HCl 2 % mucosal jelly comple alyssa lidocaine hydrochloride 0.02 MG/MG Topical Gel POLO ([facility]) hydroco/apap tab 5-325mg completed hydroco/apap tab 5-325mg POLO ([facility]) gabapentin 400 mg caps completed gabapentin 400 mg caps POL[place] ([facility]) tizanidine hydrochloride 4 mg tabs completed tizanidine hydrochloride 4 mg tabs POLO ([facility]) tizanidine hydrochloride 4 mg tabs completed tizanidine hydrochloride 4 mg tabs POLO ([facility]) clopidogrel 75 mg tabs completed clopidogrel 75 mg tabs POLO ([facility]) Acetaminophen 325 MG / Hydrocodone Sony trate 5 MG Oral Tablet hydrocodone 5 mg- acetaminophen 325 mg tablet hydrocodone 5 mg-acetaminophen 325 mg tablet completed acetaminophen 325 MG / hydrocodone bitartrate 5 MG Oral Tablet POLO ([facility]) fluticasone furoate 0.2 MG/ACTUAT Dry Po wder Inhaler Arnuity Ellipta 200 mcg/actuation powder for inhalation Arnuity Ellipta 200 mcg/actuation powder for inhalation completed flu ticasone furoate 0.2 MG/ACTUAT Dry Powder Inhaler POLO ([facility]) lidocaine hcl jelly 2 % gel com pleted lidocaine hcl jelly 2 % gel POLO ([facility]) pantoprazole 20 MG Delayed Release Oral Tablet pantoprazole 20 mg tablet,delayed release pantoprazole 20 mg tablet,delayed release completed pantoprazole 20 MG Delayed Release Oral Tablet POL[facility] ([facility]) Albuterol 0.833 MG/ML / Ipratropium Brom simin 0.167 MG/ML Inhalant Solution ipratropium 0.5 mg-albuterol 3 mg (2.5 mg base)/3 mL nebulization soln twice a day as needed ipratropium 0.5 mg-albuterol 3 mg (2.5 m g base)/3 mL nebulization soln twice a day as needed completed albuterol 0.833 MG/ML / ipratropium bromide 0.167 MG/ML Inhalation Solution POLO ([facility]) Doxycycline Monohydrate 100 MG Oral Caps ule doxycycline monohydrate 100 mg capsule doxycycline monohydrate 100 mg capsule completed Doxycycline Monohydrate 100 MG Oral Capsule POLO ([facility]) Cyclobenzaprine hydrochloride 10 MG Oral Tablet cyclobenzaprine 10 mg tablet TAKE ONE TABLET BY MOUTH EVERY DAY AT BEDTIME cyclobenzaprine 10 mg tablet TAKE ONE TABLET BY MOUTH EVERY DAY AT BEDTIME completed cyclobenzaprine hydrochloride 10 MG Oral Tablet POL[facility] ([facility]) Prednisone 20 MG Oral Tablet prednisone 20 mg tablet prednisone 20 mg tablet completed prednisone 20 MG Oral Tablet POL[place] ([facility]) hydroco/apap tab 5-325mg completed hydroco/apap tab 5-325mg POL[place] ([facility]) topiramate 100 mg tabs completed topiramate 100 mg tabs [place] ([facility]) topiramate 100 mg tabs completed topiramate 100 mg tabs POL[place] ([facility]) ezetimibe 10 mg tabs completed ezetimibe 10 mg tabs POL[place] ([facility]) pantoprazole sodium 20 mg tbec completed pantoprazole sodium 20 mg tbec POL[place] ([facility]) fluticasone furoate 0.2 MG/ACTUAT Dry Po wder Inhaler Arnuity Ellipta 200 mcg/actuation powder for inhalation Arnuity Ellipta 200 mcg/actuation powder for inhalation completed flu ticasone furoate 0.2 MG/ACTUAT Dry Powder Inhaler POLO ([facility]) omeprazole 20 mg cpdr completed omeprazole 20 mg cpdr [place] ([facility]) ipratropium/ tiff albuter completed ipratropium/ tiff albuter POL[place] ([facility]) clopidogrel 75 mg tabs completed clopidogrel 75 mg tabs POL[place] ([facility]) Ranitidine 150 MG Oral Tablet ranitidine 150 mg tablet ranit idine 150 mg tablet completed ranitidine 150 MG Oral Tablet POL[place] ([facility]) Prednisone 20 MG Oral Tablet prednisone 20 mg tablet prednisone 20 mg tablet completed prednisone 20 MG Oral Tablet POL[place] ([facility]) carisoprodol 350 mg tabs completed carisoprodol 350 mg tabs [place] ([facility]) tizanidine hydrochloride 4 mg tabs completed tizanidine hydrochloride 4 mg tabs POLO ([facility]) Omeprazole 20 MG Delayed Release Oral Ca psule omeprazole 20 mg capsule,delayed release TAKE ONE CAPSULE BY MOUTH EVERY DAY 30 MINUTES BEFORE MORNING MEAL NEEDED omeprazole 20 mg capsule,delayed release TAKE ONE CAPSULE BY MOUTH EVERY DAY 30 MINUTES BEFORE MORNING MEAL NEEDED completed omeprazole 20 MG Delayed Release Oral Capsule POL[place] ([facility]) clopidogrel 75 mg tabs completed clopidogrel 75 mg tabs POLO ([facility]) Albuterol 0.833 MG/ML / Ipratropium Brom simin 0.167 MG/ML Inhalant Solution ipratropium 0.5 mg-albuterol 3 mg (2.5 mg base)/3 mL nebulization soln twice a day as needed ipratropium 0.5 mg-albuterol 3 mg (2.5 m g base)/3 mL nebulization soln twice a day as needed completed albuterol 0.833 MG/ML / ipratropium bromide 0.167 MG/ML Inhalation Solution POLO ([facility]) Ranitidine 150 MG Oral Tablet ranitidine 150 mg tablet ranit idine 150 mg tablet completed ranitidine 150 MG Oral Tablet POLO ([facility]) carisoprodol 350 mg tabs completed carisoprodol 350 mg tabs POL[place] ([facility]) topiramate 100 mg tabs completed topiramate 100 mg tabs POLO ([facility]) Nortriptyline 25 MG Oral Capsule nortrip tyline 25 mg capsule TAKE ONE CAPSULE BY MOUTH EVERY DAY nortriptyline 25 mg capsule TAKE ONE CAPSULE BY MOUTH EVERY DAY completed nortriptyline 25 MG Oral Capsule POLO ([facility]) Ranitidine 150 MG Oral Tablet ranitidine 150 mg tablet ranit idine 150 mg tablet completed Ranitidine 150 MG Oral Tablet POL[place] ([facility]) Ranitidine 150 MG Oral Tablet ranitidine 150 mg tablet ranit idine 150 mg tablet completed ranitidine 150 MG Oral Tablet POLO ([facility]) Carisoprodol 350 MG Oral Tablet carisopr odol 350 mg tablet Take 1 tablet 3 times a day by oral route as needed for 5 days. carisoprodol 350 mg tablet Take 1 tablet 3 times a day by oral route as needed for 5 days. 1 completed carisoprodol 350 MG Oral Tablet POLO ( [facility]) Ranitidine 150 MG Oral Tablet ranitidine 150 mg tablet ranit idine 150 mg tablet completed ranitidine 150 MG Oral Tablet POLO ([facility]) Ranitidine 150 MG Oral Tablet ranitidine 150 mg tablet ranit idine 150 mg tablet completed ranitidine 150 MG Oral Tablet POLO ([facility]) Acetaminophen 325 MG / Hydrocodone Sony trate 5 MG Oral Tablet hydrocodone 5 mg- acetaminophen 325 mg tablet hydrocodone 5 mg-acetaminophen 325 mg tablet completed acetaminophen 325 MG / hydrocodone bitartrate 5 MG Oral Tablet POLO ([facility]) Acetaminophen 325 MG / Hydrocodone Sony trate 5 MG Oral Tablet hydrocodone 5 mg- acetaminophen 325 mg tablet hydrocodone 5 mg-acetaminophen 325 mg tablet completed acetaminophen 325 MG / hydrocodone bitartrate 5 MG Oral Tablet POLO ([facility]) Sulfamethoxazole 800 MG / Trimethoprim 1 60 MG Oral Tablet sulfamethoxazole 800 mg-trimethoprim 160 mg tablet sulfamethoxazole 800 mg-trimethoprim 160 mg tablet completed sulfame thoxazole 800 MG / trimethoprim 160 MG Oral Tablet POLO ([facility]) Prednisone 20 MG Oral Tablet prednisone 20 mg tablet prednisone 20 mg tablet completed Prednisone 20 MG Oral Tablet POLO ([facility]) ipratropium/ tiff albuter completed ipratropium/ tiff albuter POLO ([facility]) lidocaine hcl jelly 2 % gel com pleted lidocaine hcl jelly 2 % gel POLO ([facility]) lidocaine 5 % topical patch [id number] com pleted lidocaine 0.05 MG/MG Medicated Patch POLO ([facility]) paroxetine hcl 30 mg tabs compl eted paroxetine hcl 30 mg tabs [place] ([facility]) hydroco/apap tab 5-325mg completed hydroco/apap tab 5-325mg POLO ([facility]) omeprazole 20 mg cpdr completed omeprazole 20 mg cpdr POLO ([facility]) Famotidine 40 MG Oral Tablet famotidine 40 mg tablet famotidine 40 mg tablet completed famotidine 40 MG Oral Tablet POLO ([facility]) Omeprazole 20 MG Delayed Release Oral Ca psule omeprazole 20 mg capsule,delayed release TAKE ONE CAPSULE BY MOUTH EVERY DAY 30 MINUTES BEFORE MORNING MEAL NEEDED omeprazole 20 mg capsule,delayed release TAKE ONE CAPSULE BY MOUTH EVERY DAY 30 MINUTES BEFORE MORNING MEAL NEEDED completed omeprazole 20 MG Delayed Release Oral Capsule POLO ([facility]) Cyclobenzaprine hydrochloride 10 MG Oral Tablet cyclobenzaprine 10 mg tablet TAKE ONE TABLET BY MOUTH EVERY DAY AT BEDTIME cyclobenzaprine 10 mg tablet TAKE ONE TABLET BY MOUTH EVERY DAY AT BEDTIME completed cyclobenzaprine hydrochloride 10 MG Oral Tablet POLO ([facility]) methylprednisolone dose pack 4 mg tbpk completed methylprednisolone dose pack 4 mg tbpk POLO ([facility]) gabapentin 300 mg caps completed gabapentin 300 mg caps POLO ([facility]) Fluzone Quad [id number] (PF) 60 mcg (15 m cg x 4)/0.5 mL IM suspension INJECT DIRECTED [id number] completed 0.5 ML influenza A virus A/[facility]/[id number] (H1N1) antigen 0.03 MG/ML / influenza A virus A/[facility] (H3N2) antigen 0.03 MG/ML / influenza B virus B/[facility] antigen 0.03 MG/ML / influenza B virus B/ antigen 0.03 MG/ML Injection [Fluzone Quadrivalent [id number]] POLO ([facility]) ezetimibe 10 mg tabs completed ezetimibe 10 mg tabs POLO ([facility]) doxycycline monohydrate 100 mg caps completed doxycycline monohydrate 100 mg caps POLO ([facility]) lidocaine hcl jelly 2 % gel com pleted lidocaine hcl jelly 2 % gel POLO ([facility]) methylprednisolone 4 mg tablets in a dose pack [id number] completed methylprednisolone 4 mg tablets in a dose pack POLO ([facility]) hydroco/apap tab 5-325mg completed hydroco/apap tab 5-325mg POLO ([facility]) Carisoprodol 350 MG Oral Tablet carisopr odol 350 mg tablet Take 1 tablet 3 times a day by oral route as needed for 5 days. carisoprodol 350 mg tablet Take 1 tablet 3 times a day by oral route as needed for 5 days. 1 completed carisoprodol 350 MG Oral Tablet POLO ( [facility]) topiramate 100 mg tabs completed topiramate 100 mg tabs POLO ([facility]) hydroco/apap tab 5-325mg completed hydroco/apap tab 5-325mg POLO ([facility]) Nortriptyline 25 MG Oral Capsule nortrip tyline 25 mg capsule TAKE ONE CAPSULE BY MOUTH EVERY DAY nortriptyline 25 mg capsule TAKE ONE CAPSULE BY MOUTH EVERY DAY completed nortriptyline 25 MG Oral Capsule POLO ([facility]) alprazolam 0.5 mg tabs completed alprazolam 0.5 mg tabs POLO ([facility]) Lidocaine Hydrochloride 0.02 MG/MG Topical Gel lidocai ne HCl 2 % mucosal jelly lidocaine HCl 2 % mucosal jelly comple alyssa lidocaine hydrochloride 0.02 MG/MG Topical Gel POLO ([facility]) Insurance Providers Payer name Policy type / Coverage type Policy ID Covered constitution party ID Covered constitution party's relationship to mcdermott Policy [place] Plan Information MELVINIMISHA [id number] SP [id number] MEDICARE COMPLETE [id number] SP [id number] MEDICARE COMPLETE [id number] SP [id number] MEDICARE COMPLETE-[facility] [place] [id number] S [id number] [facility] [id number] SP [id number] [facility] [id number] SP [id number] MEDICARE COMPLETE [id number] SP [id number] ANSI-Medicare Part B [id number] ANSI-Medicaid [id number] MEDICAID [id number] SP [id number] ANSI-Medicare Part B [id number] ANSI-Medicaid [id number] MEDICAID [id number] SP [id number] ANSI-Medicare Part B [id number] ANSI-Medicaid [id number] ANSI-Medicaid [id number] ANSI-Medicare Part B [id number] ANSI-Medicare Part B [id number] ANSI-Medicaid [id number] Medicaid [facility] Part B [id number] Self [id number] [facility] Medicare Commercial [id number] Self [id number] MEDICARE COMPLETE [id number] SP [id number] ANSI-Medicaid [id number] ANSI-Medicare Part B [id number] ANSI-Medicare Part B [id number] ANSI-Medicaid [id number] ANSI-Medicaid [id number] ANSI-Medicare Part B [id number] ANSI-Medicare Part B [id number] ANSI-Medicaid [id number] ANSI-Medicare Part B [id number] ANSI-Medicaid [id number] ANSI-Medicaid [id number] ANSI-Medicare Part B [id number] ANSI-Medicaid [id number] ANSI-Medicare Part B [id number] ANSI-Medicare Part B [id number] ANSI-Medicaid [id number] [facility] Medicare Complete F [id number] SELF [id number] Medicaid [facility] S D [id number] SELF [id number] ANSI-Medicare Part B [id number] ANSI-Medicaid [id number] [facility] Medicare Complete F [id number] SELF [id number] ANSI-Medicare Part B [id number] ANSI-Medicaid [id number] [facility] Medicare Complete F [id number] SELF [id number] ANSI-Medicare Part B [id number] ANSI-Medicaid [id number] ANSI-Medicaid [id number] ANSI-Medicare Part B [id number] ANSI-Medicare Part B [id number] ANSI-Medicaid [id number] ANSI-Medicare Part B [id number] ANSI-Medicaid [id number] ANSI-Medicaid [id number] ANSI-Medicare Part B [id number] ANSI-Medicaid [id number] ANSI-Medicare Part B [id number] ANSI-Medicaid [id number] ANSI-Medicare Part B [id number] ANSI-Medicaid [id number] ANSI-Medicare Part B [id number] ANSI-Medicaid [id number] ANSI-Medicare Part B [id number] ANSI-Medicare Part B [id number] ANSI-Medicaid [id number] MEDICARE COMPLETE [id number] ANSI-Medicare Part B [id number] ANSI-Medicaid [id number] [place] Med[place] [id number] Self [id number] [facility] ([facility]) Commercial [id number] Self [id number] MEDICARE [id number] SP [id number] A MEDICAID M [id number] S [id number] MEDICARE COMPLETE [id number] SP [id number] [place] Med[place] [id number] Self [id number] MEDICARE COMPLETE-[facility] O [id number] S [id number] [place] [id number] Self [id number] [facility] MCRO [id number] SP [id number] [facility] [id number] SP [id number] MEDICARE COMPLETE [id number] SP [id number] [place] [id number] Self [id number] MEDICAID [id number] SP [id number] [place] [id number] Self [id number] [place]ig[place] [id number] Self [id number] MEDICAID [id number] SP [id number] MEDICARE COMPLETE [id number] SP [id number] [place] Medig[place] B [id number] Self [id number] MEDICARE COMPLETE [id number] SP [id number] [facility] [id number] SP [id number] [facility] [id number] SP [id number] MEDICARE [id number] SP [id number] A MEDICARE UNAVAILABLE SP UNAVAILA BLE Problems, Conditions, and Diagnoses Code Display Name Description Problem Type Effective Dates Data Source(s) 677049084 Isolated seizures Isolated seizures Problem 03/07 12:00:00 AM EST MEDENT ([facility], ) [id number] Cerebral infarction due to internal reid tid artery occlusion Cerebral infarction due to internal carotid artery occlusion Problem 03/07/2020 12:00:00 AM EST MEDENT ([facility], ) [id number] Pure hypercholesterolemia Pure hypercholesterolemia Pr oblem 08/31/2019 12:00:00 AM EDT MEDENT ([facility] ) F43.23 [id number] Adjustment disorder with mixed a nxiety and depressed mood Problem 07/14/2019 12:00:00 AM EDT eCW1 ([facility]) J44.1 [id number] COPD with exacerbation Problem 03/31/2019 12 :00:00 AM EST eCW1 ([facility]) K21.9 [id number] Gastroesophageal ref lux disease, esophagitis presence not specified Problem 03/31/2019 12:00:00 AM EST eCW1 ([facility]) K21.9 [id number] Gastroesophageal ref lux disease, esophagitis presence not specified Problem 03/31/2019 12:00:00 AM EST eCW1 ([facility]) J44.1 [id number] COPD with exacerbation Problem 03/31/2019 12 :00:00 AM EST eCW1 ([facility]) Other nonspecific abnormal finding of kehinde ng field Other nonspecific abnormal finding of lung field Problem 02/22/2019 12:00:00 AM EST MEDENT ([facility], ) Surgeries/Procedures Procedure Description Date Indications Data Source(s) Balance Forward 02/22/2020 12:00:00 AM EST MEDENT ([facility], ) Spirometry 09/28/2019 12:00:00 AM EDT M EDENT ([facility], ) RADEX SPINE THORACIC 2 VIEWS 08/31/2019 12:00:00 AM ED T MEDENT ([facility] ) Spirometry 06/28/2019 12:00:00 AM EDT M EDENT ([facility], ) Spirometry 05/17/2019 12:00:00 AM EDT M EDENT ([facility], ) Office Visit, Est Pt., Level 3 FC 04/19/2019 12:00:00 AM EST eCW1 ([facility]) Office Visit, Est Pt., Level 4 PC 04/19/2019 12:00:00 AM EST eCW1 ([facility]) URINE-NO MICRO 04/19/2019 12:00:00 AM EST eCW1 ([facility]) Office Visit, Est Pt., Level 2 FC 04/11/2019 12:00:00 AM EST eCW1 ([facility]) Office Visit, Est Pt., Level 3 PC 04/11/2019 12:00:00 AM EST eCW1 ([facility]) Spirometry 02/22/2019 12:00:00 AM EST M EDENT ([facility], ) Results ID Date Data Source [id number] 01/30/2020 01:26:00 PM EST MEDENT ([facility], ) Name Value Range Interpretation Code Description Data Connie rce(s) Supporting Document(s) PDFReport Laboratory test result MEDENT ([facility], ) FVC-Pre 2.32 L MEDENT ([facility]) FVC-%Pred-Pre 65 L MEDENT ([facility], ) FVC-Pred 3.53 L MEDENT ([facility], ) Fev1-Pred 2.72 L MEDENT ([facility]) Fev1-Pre 1.17 L MEDENT ([facility], ) FVC-LLN 2.79 L MEDENT ([facility]) Fev1-%Pred-Pre 43 L MEDENT ([facility]) Fev1-LLN 2.10 L MEDENT ([facility]) Fev6-Pred 3.40 L MEDENT ([facility]) Fev6-Pre 2.27 L MEDENT ([facility], ) Fev6-%Pred-Pre 66 L MEDENT ([facility]) Fev6-LLN 2.68 L MEDENT ([facility]) Vfn4xsu-Qxm 50 % MEDENT ([facility]) Zmr1ouq-Gjkm 78 % MEDENT ([facility]) Oeq7jun-Taxp 96 % MEDENT ([facility]) Jjw1hmm-%Pred-Pre 64 % MEDENT ([facility]) Tsg6zew-RON 68 % MEDENT ([facility]) Viz3zop-Khb 98 % MEDENT ([facility]) Tig3guc-%Pred-Pre 101 % MEDENT ([facility]) FEFMax-Pre 2.07 L/E/sec MEDENT ([facility]) FEFMax-Pred 6.55 L/E/sec MEDENT ([facility], ) FEFMax-LLN 4.73 L/E/sec MEDENT ([facility]) FEFMax-%Pred-Pre 31 L/E/sec MEDENT ([facility]) Sol9760-%Pred-Pre 21 L/E/sec MEDENT ([facility]) Dop0191-Gtmk 2.42 L/E/sec MEDENT ([facility]) Dma2498-Ywj 0.51 L/E/sec MEDENT ([facility]) Lpe7wem7-Lczy 81 % MEDENT ([facility]) ExpTime-Pre 6.78 sec MEDENT ([facility]) Quz6677-LTL 1.10 L/E/sec MEDENT ([facility], ) Rjp4avl4-Mje 52 % MEDENT ([facility]) Jcg6qwz5-%Pred-Pre 64 % MEDENT ([facility]) Fsp5ceq4-BNC 72 % MEDENT ([facility]) ID Date Data Source [id number] 12/30/2019 12:00:00 AM EST POLO ([facility]) Name Value Range Interpretation Code Description Data Connie rce(s) Supporting Document(s) SARS-CoV-2 (COVID-19) RNA [Presence] in Respiratory specimen by MINERVA with probe detection negative negative normal Sars-cov-2 POLO ([facility]) ID Date Data Source [id number] 12/30/2019 12:00:00 AM EST POLO ([facility]) Name Value Range Interpretation Code Description Data Connie rce(s) Supporting Document(s) ID Date Data Source [id number] 12/30/2019 12:00:00 AM EST POLO ([facility]) Name Value Range Interpretation Code Description Data Connie rce(s) Supporting Document(s) SARS-CoV-2 (COVID-19) RNA [Presence] in Respiratory specimen by MINERVA with probe detection negative negative normal Sars-cov-2 POLO ([facility]) ID Date Data Source [id number] 12/30/2019 12:00:00 AM EST POLO ([facility]) Name Value Range Interpretation Code Description Data Connie rce(s) Supporting Document(s) ID Date Data Source [id number] 12/30/2019 12:00:00 AM EST POLO ([facility]) Name Value Range Interpretation Code Description Data Connie rce(s) Supporting Document(s) SARS-CoV-2 (COVID-19) RNA [Presence] in Respiratory specimen by MINERVA with probe detection negative negative normal Sars-cov-2 POLO ([facility]) ID Date Data Source [id number] 12/30/2019 12:00:00 AM EST POLO ([facility]) Name Value Range Interpretation Code Description Data Connie rce(s) Supporting Document(s) ID Date Data Source [id number] 12/30/2019 12:00:00 AM EST POLO ([facility]) Name Value Range Interpretation Code Description Data Connie rce(s) Supporting Document(s) SARS coronavirus 2 RNA [Presence] in Res piratory specimen by MINERVA with probe detection negative negative normal Sars-cov-2 POLO ([facility]) ID Date Data Source [id number] 12/30/2019 12:00:00 AM EST POLO ([facility]) Name Value Range Interpretation Code Description Data Connie rce(s) Supporting Document(s) ID Date Data Source [id number] 12/30/2019 12:00:00 AM EST POLO ([facility]) Name Value Range Interpretation Code Description Data Connie rce(s) Supporting Document(s) SARS coronavirus 2 RNA [Presence] in Res piratory specimen by MINERVA with probe detection negative negative normal Sars-cov-2 POLO ([facility]) ID Date Data Source [id number] 12/30/2019 12:00:00 AM EST POLO ([facility]) Name Value Range Interpretation Code Description Data Connie rce(s) Supporting Document(s) ID Date Data Source [id number] 12/30/2019 12:00:00 AM EST [facility] Name Value Range Interpretation Code Description Data Connie rce(s) Supporting Document(s) SARS-CoV-2 [facility] This lab was ordered by [facility] and reported by [email or web address]. ID Date Data Source Urinalysis, no micro 12/13/2019 09:52:01 AM EDT eCW1 ([facility]) Name Value Range Interpretation Code Description Data Connie rce(s) Supporting Document(s) trace Leukocyte eCW1 ([facility]) 5 pH eCW1 ([facility]) 1.030 Spec gravity eCW1 ([facility]) neg Nitrate eCW1 ([facility]) 30 Protein eCW1 ([facility]) neg Glucose eCW1 ([facility]) neg Blood eCW1 ([facility]) neg Ketones eCW1 ([facility]) neg Bilirubin eCW1 ([facility]) norm Urobili eCW1 ([facility]) yes Internal QC Acceptable (Y/N) e CW1 ([facility]) ID Date Data Source [id number] 12/10/2019 12:00:00 AM EDT POLO ([facility]) Name Value Range Interpretation Code Description Data Connie rce(s) Supporting Document(s) SARS-CoV-2 (COVID-19) RNA [Presence] in Respiratory specimen by MINERVA with probe detection negative negative normal Sars-cov-2 POLO ([facility]) ID Date Data Source [id number] 12/10/2019 12:00:00 AM EDT POLO ([facility]) Name Value Range Interpretation Code Description Data Connie rce(s) Supporting Document(s) ID Date Data Source [id number] 12/10/2019 12:00:00 AM EDT POLO ([facility]) Name Value Range Interpretation Code Description Data Connie rce(s) Supporting Document(s) SARS-CoV-2 (COVID-19) RNA [Presence] in Respiratory specimen by MINERVA with probe detection negative negative normal Sars-cov-2 POLO ([facility]) ID Date Data Source [id number] 12/10/2019 12:00:00 AM EDT POLO ([facility]) Name Value Range Interpretation Code Description Data Connie rce(s) Supporting Document(s) ID Date Data Source [id number] 12/10/2019 12:00:00 AM EDT POLO ([facility]) Name Value Range Interpretation Code Description Data Connie rce(s) Supporting Document(s) SARS-CoV-2 (COVID-19) RNA [Presence] in Respiratory specimen by MINERVA with probe detection negative negative normal Sars-cov-2 POLO ([facility]) ID Date Data Source [id number] 12/10/2019 12:00:00 AM EDT POLO ([facility]) Name Value Range Interpretation Code Description Data Connie rce(s) Supporting Document(s) ID Date Data Source [id number] 12/10/2019 12:00:00 AM EDT POLO ([facility]) Name Value Range Interpretation Code Description Data Connie rce(s) Supporting Document(s) SARS coronavirus 2 RNA [Presence] in Res piratory specimen by MINERVA with probe detection negative negative normal Sars-cov-2 POLO ([facility]) ID Date Data Source [id number] 12/10/2019 12:00:00 AM EDT POLO ([facility]) Name Value Range Interpretation Code Description Data Connie rce(s) Supporting Document(s) ID Date Data Source [id number] 12/10/2019 12:00:00 AM EDT POLO ([facility]) Name Value Range Interpretation Code Description Data Connie rce(s) Supporting Document(s) SARS coronavirus 2 RNA [Presence] in Res piratory specimen by MINERVA with probe detection negative negative normal Sars-cov-2 [facility] ([facility]) ID Date Data Source [id number] 12/10/2019 12:00:00 AM EDT POLO ([facility]) Name Value Range Interpretation Code Description Data Connie rce(s) Supporting Document(s) ID Date Data Source [id number] 12/10/2019 12:00:00 AM EDT POLO ([facility]) Name Value Range Interpretation Code Description Data Connie rce(s) Supporting Document(s) SARS coronavirus 2 RNA [Presence] in Res piratory specimen by MINERVA with probe detection negative negative normal Sars-cov-2 POLO ([facility]) ID Date Data Source [id number] 12/10/2019 12:00:00 AM EDT POLO ([facility]) Name Value Range Interpretation Code Description Data Connie rce(s) Supporting Document(s) ID Date Data Source [id number] 12/10/2019 12:00:00 AM EDT POLO ([facility]) Name Value Range Interpretation Code Description Data Connie rce(s) Supporting Document(s) SARS coronavirus 2 RNA [Presence] in Res piratory specimen by MINERVA with probe detection negative negative normal Sars-cov-2 POLO ([facility]) ID Date Data Source [id number] 12/10/2019 12:00:00 AM EDT POLO ([facility]) Name Value Range Interpretation Code Description Data Connie rce(s) Supporting Document(s) ID Date Data Source [id number] 12/10/2019 12:00:00 AM EDT POLO ([facility]) Name Value Range Interpretation Code Description Data Connie rce(s) Supporting Document(s) SARS coronavirus 2 RNA [Presence] in Res piratory specimen by MINERVA with probe detection negative negative normal Sars-cov-2 POLO ([facility]) ID Date Data Source [id number] 12/10/2019 12:00:00 AM EDT POLO ([facility]) Name Value Range Interpretation Code Description Data Connie rce(s) Supporting Document(s) ID Date Data Source [id number] 12/10/2019 12:00:00 AM EDT POLO ([facility]) Name Value Range Interpretation Code Description Data Connie rce(s) Supporting Document(s) SARS coronavirus 2 RNA [Presence] in Res piratory specimen by MINERVA with probe detection negative negative normal Sars-cov-2 POLO ([facility]) ID Date Data Source [id number] 12/10/2019 12:00:00 AM EDT POLO ([facility]) Name Value Range Interpretation Code Description Data Connie rce(s) Supporting Document(s) ID Date Data Source [id number] 12/10/2019 12:00:00 AM EDT [facility] Name Value Range Interpretation Code Description Data Connie rce(s) Supporting Document(s) SARS-CoV-2 [facility] This lab was ordered by [facility] and reported by [facility]. ID Date Data Source [id number] 09/13/2019 12:00:00 AM EDT [facility] o[facility]y Imaging Mir Estrada MD Patient Name: RAYMOND FREEMAN [facility] Date of : 1960[place] [address] Date of Exam: 09/13/2019#: Fax: [phone] EXAM: MRI THORACIC SPINE WITHOUT&WITH CONTRASTPROCEDURE INFORMATION:Exam: MR Thoracic Spine Without and With ContrastExam date and time: 09/13/2019 1:04 PM Age: 58 years oldClinical indication: Injury or trauma; Injury history: Twisting injury June2019; Follow-up exam; CrushingTECHNIQUE: Imaging protocol: Multiplanar magnetic resonance images of thethoracic spine without and with intravenous contrast. Contrast material:PROHANCE; Contrast volume: 11 ml; Contrast route: INTRAVENOUS (IV);COMPARISON: No relevant prior studies available.FINDINGS:Vertebrae: There is mild accentuation of the normal thoracic kyphosis.There is a moderate T5 ventral compression deformity with approximately 50%loss of height. There is a mild T7 compression deformity with yjrlxeqmlmtex28% loss of height. Focal edema at T5 is suggestive of a subacute timecourse. Normal vertebral body heights are otherwise preserved. There is nolisthesis. Spinal cord: The thoracic cord is of normal contour and signalproperties. Discs/Spinal canal/Neural foramina: There are shall owmultilevel disc bulges. At T1/2, shallow disc bulging and mild facethypertrophy contribute to mild to moderate right and severe left neuralforaminal narrowing. Soft tissues: Unremarkable.IMPRESSION:Moderate T5 ventral compression deformity, likely subacute. Mild T7 ventralcompression deformity.Thank you for allowing us to participate in the care of your patient.Dictated and Authenticated by: Breann Jose MD 09/13/2019 2:41 PMEastern Time ([place] & [place])Tolu/Ana you for referring BENNIE FREEMAN to our office. Electronically Signed - CHERYL 09/13/19 15:22 Name Value Range Interpretation Code Description Data Connie rce(s) Supporting Document(s) ID Date Data Source [id number] 08/29/2019 12:00:00 AM EDT POLO ([facility]) Name Value Range Interpretation Code Description Data Connie rce(s) Supporting Document(s) ID Date Data Source [id number] 08/29/2019 12:00:00 AM EDT POLO ([facility]) Name Value Range Interpretation Code Description Data Connie rce(s) Supporting Document(s) ID Date Data Source [id number] 08/29/2019 12:00:00 AM EDT POLO ([facility]) Name Value Range Interpretation Code Description Data Connie rce(s) Supporting Document(s) ID Date Data Source [id number] 08/29/2019 12:00:00 AM EDT POLO ([facility]) Name Value Range Interpretation Code Description Data Connie rce(s) Supporting Document(s) ID Date Data Source [id number] 08/29/2019 12:00:00 AM EDT POLO ([facility]) Name Value Range Interpretation Code Description Data Connie rce(s) Supporting Document(s) ID Date Data Source [id number] 08/29/2019 12:00:00 AM EDT POLO ([facility]) Name Value Range Interpretation Code Description Data Connie rce(s) Supporting Document(s) ID Date Data Source [id number] 08/29/2019 12:00:00 AM EDT POLO ([facility]) Name Value Range Interpretation Code Description Data Connie rce(s) Supporting Document(s) ID Date Data Source [id number] 08/29/2019 12:00:00 AM EDT POLO ([facility]) Name Value Range Interpretation Code Description Data Connie rce(s) Supporting Document(s) ID Date Data Source [id number] 08/29/2019 12:00:00 AM EDT POLO ([facility]) Name Value Range Interpretation Code Description Data Connie rce(s) Supporting Document(s) ID Date Data Source [id number] 08/29/2019 12:00:00 AM EDT POLO ([facility]) Name Value Range Interpretation Code Description Data Connie rce(s) Supporting Document(s) ID Date Data Source [id number] 08/29/2019 12:00:00 AM EDT POLO ([facility]) Name Value Range Interpretation Code Description Data Connie rce(s) Supporting Document(s) ID Date Data Source [id number] 08/29/2019 12:00:00 AM EDT POLO ([facility]) Name Value Range Interpretation Code Description Data Connie rce(s) Supporting Document(s) ID Date Data Source [id number] 08/29/2019 12:00:00 AM EDT POLO ([facility]) Name Value Range Interpretation Code Description Data Connie rce(s) Supporting Document(s) ID Date Data Source [id number] 08/29/2019 12:00:00 AM EDT POLO ([facility]) Name Value Range Interpretation Code Description Data Connie rce(s) Supporting Document(s) ID Date Data Source [id number] 08/29/2019 12:00:00 AM EDT POLO ([facility]) Name Value Range Interpretation Code Description Data Connie rce(s) Supporting Document(s) ID Date Data Source [id number] 08/29/2019 12:00:00 AM EDT POLO ([facility]) Name Value Range Interpretation Code Description Data Connie rce(s) Supporting Document(s) ID Date Data Source [id number] 08/29/2019 12:00:00 AM EDT [facility] Name Value Range Interpretation Code Description Data Connie rce(s) Supporting Document(s) SARS-CoV-2 [facility] This lab was ordered by [facility] and reported by [email or web address]. ID Date Data Source [id number] 06/28/2019 12:32:00 PM EDT MEDENT ([facility], ) Name Value Range Interpretation Code Description Data Connie rce(s) Supporting Document(s) FVC-Pred 3.55 L MEDENT ([facility], ) PDFReport Laboratory test result MEDENT ([facility]) Fev1-Pred 2.75 L MEDENT ([facility]) FVC-%Pred-Pre 65 L MEDENT ([facility]) FVC-Pre 2.34 L MEDENT ([facility]) FVC-LLN 2.82 L MEDENT ([facility]) Fev1-LLN 2.13 L MEDENT ([facility]) Fev1-%Pred-Pre 47 L MEDENT ([facility]) Fev1-Pre 1.30 L MEDENT ([facility]) Fev6-Pred 3.43 L MEDENT ([facility]) Fev6-LLN 2.71 L MEDENT ([facility]) Fev6-Pre 2.34 L MEDENT ([facility]) Fev6-%Pred-Pre 68 L MEDENT ([facility]) Fxc6qmc-Rsf 56 % MEDENT ([facility]) Egp0ncv-%Pred-Pre 71 % MEDENT ([facility]) Tdg5txl-Wrib 78 % MEDENT ([facility]) Pai9uaa-AKD 68 % MEDENT ([facility]) Dps0djx-Oset 97 % MEDENT ([facility]) Ecu7clk-Sxd 100 % MEDENT ([facility]) Tdk3kli-%Pred-Pre 103 % MEDENT ([facility]) FEFMax-Pre 2.60 L/E/sec MEDENT ([facility]) FEFMax-Pred 6.61 L/E/sec MEDENT ([facility]) FEFMax-%Pred-Pre 39 L/E/sec MEDENT ([facility]) FEFMax-LLN 4.78 L/E/sec MEDENT ([facility]) Xqe3710-Ixf 0.59 L/E/sec MEDENT ([facility]) Yfl2446-%Pred-Pre 24 L/E/sec MEDENT ([facility]) Gtx6276-Ahsh 2.47 L/E/sec MEDENT ([facility]) Mev1743-MVH 1.15 L/E/sec MEDENT ([facility]) ExpTime-Pre 5.88 sec MEDENT ([facility]) Fcf3veq8-Qac 56 % MEDENT ([facility]) Ery9npq7-Jvop 81 % MEDENT ([facility]) Meu5ksb9-XVJ 72 % MEDENT ([facility]) Ayi6zbc1-%Pred-Pre 69 % MEDENT ([facility]) ID Date Data Source [id number] 05/18/2019 10:05:00 AM EDT [facility] Name Value Range Interpretation Code Description Data Connie rce(s) Supporting Document(s) SARS CORONAVIRUS 2 RNA [facility] This lab was ordered by [facility] and reported by [facility]. ID Date Data Source [id number] 04/18/2019 12:59:00 PM EST MEDENT ([facility]) Name Value Range Interpretation Code Description Data Connie rce(s) Supporting Document(s) Calcidiol [Mass/volume] in Serum or Plasma 29.7 ng/mL 30.0-100.0 MEDENT ([facility]) ID Date Data Source [id number] 04/18/2019 12:59:00 PM EST MEDENT ([facility]) Name Value Range Interpretation Code Description Data Connie rce(s) Supporting Document(s) Blood Urea Nitrogen 13 mg/dL 7-18 [facility] ([facility]) Glucose, Fasting 84 mg/dL 70-100 MEDENT ([facility]) Creatinine For GFR 0.89 mg/dL 0.55-1.30 MEDENT ([facility]) Glomerular Filtration Rate Laboratory test result MEDENT ([facility]) <content>Units are mL/min/1.73 m2</content>
<content></content>
<content>Chronic Kidney Disease Staging per NKF:</content>
<content></content>
<content>Stage I & II GFR >=60 Normal to Mildly Decreased</content>
<content>Stage III GFR 30- 59 Moderately Decreased</content>
<content>Stage IV GFR 15-29 Severely Decreased</content>
<content>Stage V GFR <15 Very Little GFR Left</content>
<content>ESRD GFR <15 on CHIEF DEPUTY SHERIFF</content>
<content></content> Chloride Level 114 meq/L 98-107 [facility] ([facility]) Potassium Serum 5.3 meq/L 3.5-5.1 MEDENT ([facility]) Sodium Level 143 meq/L 136-145 [facility] ([facility]) Anion Gap 1 meq/L 8-16 [facility] ([facility]) Carbon Dioxide Level 28 meq/L 21-32 [facility] ([facility]) Calcium Level 8.9 mg/dL 8.8-10.2 MEDENT ([facility]) Procedure Social History Code Duration Value Status Description Data Source(s ) Smoking 12/13/2019 12:00:00 AM EDT Current Smoker completed Curre nt Smoker eCW1 ([facility]) Smoking 12/13/2019 12:00:00 AM EDT Current Smoker completed Curre nt Smoker eCW1 ([facility]) Smoking 12/13/2019 12:00:00 AM EDT Current Smoker completed Curre nt Smoker eCW1 ([facility]) Smoking 12/13/2019 12:00:00 AM EDT Current Smoker completed Curre nt Smoker eCW1 ([facility]) Smoking 12/13/2019 12:00:00 AM EDT Current Smoker completed Curre nt Smoker eCW1 ([facility]) Smoking 12/13/2019 12:00:00 AM EDT Current Smoker completed Curre nt Smoker eCW1 ([facility]) Smoking 12/13/2019 12:00:00 AM EDT Current Smoker completed Curre nt Smoker eCW1 ([facility]) Smoking 07/14/2019 12:00:00 AM EDT Current Smoker completed Curre nt Smoker eCW1 ([facility]) Vital Signs ID Date Data Source UNK Name Value Range Interpretation Code Description Data Source(s) Body height 66 [in_i] 66 [in_i] POLO ([facility]) Body height 66 [in_i] 66 [in_i] [place] ([facility]) Body surface area Derived from formula 1.59 m2 1.59 m2 [facility] ([facility]) Body weight 53.071 kg 53.071 kg [facility] ([facility]) [place] body weight 130 [lb_av] 130 [facility]_av[facility] Body mass index (BMI) [Ratio] 18.9 kg/m2 18.9 k g/m2 [facility] ([facility]) Body weight 117.00 [lb_av] 117.00 [[facility]_av] [facility] Body height 66 [in_i] 66 [in_i] [facility] ([facility]) 5'6" Oxygen saturation in Arterial blood by Pulse oximetry 96 % 96 % [facility] ([facility]) Heart rate 63 /min 63 /min [facility] ([facility]) Diastolic blood pressure 78 mm[Hg] 78 mm[Hg] [facility] ([facility]) Systolic blood pressure 150 mm[Hg] 150 mm[Hg] [facility] Systolic blood pressure 127 mm[Hg] 127 mm[Hg] Sandra THENA ([facility]) Body height 66 [in_i] 66 [in_i] POLO ([facility]) Diastolic blood pressure 67 mm[Hg] 67 mm[Hg] POLO ([facility]) Systolic blood pressure 127 mm[Hg] 127 mm[Hg] A THENA ([facility]) Body height 66 [in_i] 66 [in_i] POLO ([facility]) Diastolic blood pressure 67 mm[Hg] 67 mm[Hg] POLO ([facility]) Systolic blood pressure 127 mm[Hg] 127 mm[Hg] A THENA ([facility]) Body height 66 [in_i] 66 [in_i] POLO ([facility]) Diastolic blood pressure 67 mm[Hg] 67 mm[Hg] POL[facility] ([facility]) Systolic blood pressure 127 mm[Hg] 127 mm[Hg] A THENA ([facility]) Body height 66 [in_i] 66 [in_i] [facility] ([facility]) Diastolic blood pressure 67 mm[Hg] 67 mm[Hg] POL[facility] ([facility]) Systolic blood pressure 127 mm[Hg] 127 mm[Hg] A THENA ([facility]) Body height 66 [in_i] 66 [in_i] POL[facility] ([facility]) Diastolic blood pressure 67 mm[Hg] 67 mm[Hg] POL[facility] ([facility]) Systolic blood pressure 127 mm[Hg] 127 mm[Hg] A THENA ([facility]) Body height 66 [in_i] 66 [in_i] POL[facility] ([facility]) Diastolic blood pressure 67 mm[Hg] 67 mm[Hg] [facility] ([facility]) Systolic blood pressure 127 mm[Hg] 127 mm[Hg] A THENA ([facility]) Body height 66 [in_i] 66 [in_i] POL[facility] ([facility]) Diastolic blood pressure 67 mm[Hg] 67 mm[Hg] POL[facility] ([facility]) Diastolic blood pressure 69 mm[Hg] 69 mm[Hg] eCW1 ([facility]) Systolic blood pressure 146 mm[Hg] 146 mm[Hg] e CW1 ([facility]) Body temperature 97.0 [degF] 97.0 [degF] eCW1 ( [facility]) Respiratory rate 17 /min 17 /min eCW1 ([facility]) Heart rate 69 /min 69 /min eCW1 ([facility]) Body mass index (BMI) [Ratio] 20.13 kg/m2 20.13 kg/m2 eCW1 ([facility]) Body height 65 [in_i] 65 [in_i] eCW1 ([facility]) Body weight 121 [lb_av] 121 [lb_av] eCW1 ([facility]) Body weight 128 [lb_av] 128 [lb_av] POLO ([facility]) Body mass index (BMI) [Ratio] 20.7 kg/m2 20.7 k g/m2 POLO ([facility]) Body height 66 [in_i] 66 [in_i] POLO ([facility]) Body weight 128 [lb_av] 128 [lb_av] [facility] ([facility]) Body mass index (BMI) [Ratio] 20.7 kg/m2 20.7 k g/m2 POLO ([facility]) Body height 66 [in_i] 66 [in_i] POLO ([facility]) Body weight 128 [lb_av] 128 [lb_av] [facility] ([facility]) Body mass index (BMI) [Ratio] 20.7 kg/m2 20.7 k g/m2 POLO ([facility]) Body height 66 [in_i] 66 [in_i] POLO ([facility]) Body weight 128 [lb_av] 128 [lb_av] [facility] ([facility]) Body mass index (BMI) [Ratio] 20.7 kg/m2 20.7 k g/m2 POL[facility] ([facility]) Body height 66 [in_i] 66 [in_i] POL[facility] ([facility]) Body weight 128 [lb_av] 128 [lb_av] [facility] ([facility]) Body mass index (BMI) [Ratio] 20.7 kg/m2 20.7 k g/m2 POL[facility] ([facility]) Body height 66 [in_i] 66 [in_i] POL[facility] ([facility]) Body weight 128 [lb_av] 128 [lb_av] [facility] ([facility]) Body mass index (BMI) [Ratio] 20.7 kg/m2 20.7 k g/m2 POL[facility] ([facility]) Body height 66 [in_i] 66 [in_i] POLO ([facility]) Body weight 128 [lb_av] 128 [lb_av] POL[facility] ([facility]) Body mass index (BMI) [Ratio] 20.7 kg/m2 20.7 k g/m2 POLO ([facility]) Body height 66 [in_i] 66 [in_i] POLO ([facility]) Body weight 128 [lb_av] 128 [lb_av] POL[facility] ([facility]) Body mass index (BMI) [Ratio] 20.7 kg/m2 20.7 k g/m2 POLO ([facility]) Body height 66 [in_i] 66 [in_i] POLO ([facility]) Body weight 128 [lb_av] 128 [lb_av] POLO ([facility]) Body mass index (BMI) [Ratio] 20.7 kg/m2 20.7 k g/m2 POLO ([facility]) Body height 66 [in_i] 66 [in_i] POLO ([facility]) Body weight 128 [lb_av] 128 [lb_av] POLO ([facility]) Body mass index (BMI) [Ratio] 20.7 kg/m2 20.7 k g/m2 POLO ([facility]) Body height 66 [in_i] 66 [in_i] POLO ([facility]) Body weight 128 [lb_av] 128 [lb_av] POL[facility] ([facility]) Body mass index (BMI) [Ratio] 20.7 kg/m2 20.7 k g/m2 POLO ([facility]) Body height 66 [in_i] 66 [in_i] POLO ([facility]) Body weight 128 [lb_av] 128 [lb_av] POLO ([facility]) Body mass index (BMI) [Ratio] 20.7 kg/m2 20.7 k g/m2 POLO ([facility]) Body height 66 [in_i] 66 [in_i] POLO ([facility]) Body weight 128 [lb_av] 128 [lb_av] POLO ([facility]) Body mass index (BMI) [Ratio] 20.7 kg/m2 20.7 k g/m2 POLO ([facility]) Body height 66 [in_i] 66 [in_i] POLO ([facility]) Body surface area Derived from formula 1.62 m2 1.62 m2 [facility] ) Body weight 55.509 kg 55.509 kg [facility] ([facility], ) [place] body weight 130 [lb_av] 130 [lb_av] MEDEN T ([facility]) Body mass index (BMI) [Ratio] 19.7 kg/m2 19.7 k g/m2 [facility]) Body weight 122.38 [lb_av] 122.38 [lb_av] MEDEN T ([facility]) Body height 66 [in_i] 66 [in_i] [facility] ([facility], ) 5'6" Body temperature 97.5 [degF] 97.5 [degF] [facility] ([facility], ) Oxygen saturation in Arterial blood by Pulse oximetry 98 % 98 % [facility] ([facility]) Heart rate 77 /min 77 /min [facility] ([facility], ) Diastolic blood pressure 78 mm[Hg] 78 mm[Hg] MEDENT ([facility]) Systolic blood pressure 144 mm[Hg] 144 mm[Hg] Kelley EDENT ([facility], ) Body weight 128 [lb_av] 128 [lb_av] POLO ([facility]) Systolic blood pressure 132 mm[Hg] 132 mm[Hg] Sandra THENSandra ([facility]) Body mass index (BMI) [Ratio] 20.7 kg/m2 20.7 k g/m2 POLO ([facility]) Body height 66 [in_i] 66 [in_i] POLO ([facility]) Diastolic blood pressure 72 mm[Hg] 72 mm[Hg] POLO ([facility]) Body weight 128 [lb_av] 128 [lb_av] [facility] ([facility]) Systolic blood pressure 132 mm[Hg] 132 mm[Hg] A THENA ([facility]) Body mass index (BMI) [Ratio] 20.7 kg/m2 20.7 k g/m2 POLO ([facility]) Body height 66 [in_i] 66 [in_i] POLO ([facility]) Diastolic blood pressure 72 mm[Hg] 72 mm[Hg] POLO ([facility]) Body mass index (BMI) [Ratio] 20.7 kg/m2 20.7 k g/m2 POLO ([facility]) Body height 66 [in_i] 66 [in_i] POLO ([facility]) Diastolic blood pressure 72 mm[Hg] 72 mm[Hg] POLO ([facility]) Body weight 128 [lb_av] 128 [lb_av] [facility] ([facility]) Systolic blood pressure 132 mm[Hg] 132 mm[Hg] A THENA ([facility]) Body mass index (BMI) [Ratio] 20.7 kg/m2 20.7 k g/m2 POLO ([facility]) Body height 66 [in_i] 66 [in_i] POLO ([facility]) Diastolic blood pressure 72 mm[Hg] 72 mm[Hg] POLO ([facility]) Body weight 128 [lb_av] 128 [lb_av] POL[facility] ([facility]) Systolic blood pressure 132 mm[Hg] 132 mm[Hg] A THENA ([facility]) Body mass index (BMI) [Ratio] 20.7 kg/m2 20.7 k g/m2 POLO ([facility]) Body height 66 [in_i] 66 [in_i] POLO ([facility]) Diastolic blood pressure 72 mm[Hg] 72 mm[Hg] POLO ([facility]) Body weight 128 [lb_av] 128 [lb_av] POLO ([facility]) Systolic blood pressure 132 mm[Hg] 132 mm[Hg] A THENA ([facility]) Body mass index (BMI) [Ratio] 20.7 kg/m2 20.7 k g/m2 POLO ([facility]) Body height 66 [in_i] 66 [in_i] POLO ([facility]) Diastolic blood pressure 72 mm[Hg] 72 mm[Hg] POLO ([facility]) Body weight 128 [lb_av] 128 [lb_av] POLO ([facility]) Systolic blood pressure 132 mm[Hg] 132 mm[Hg] A THENA ([facility]) Body mass index (BMI) [Ratio] 20.7 kg/m2 20.7 k g/m2 POLO ([facility]) Body height 66 [in_i] 66 [in_i] POLO ([facility]) Diastolic blood pressure 72 mm[Hg] 72 mm[Hg] POLO ([facility]) Body weight 128 [lb_av] 128 [lb_av] POLO ([facility]) Systolic blood pressure 132 mm[Hg] 132 mm[Hg] A THENA ([facility]) Body mass index (BMI) [Ratio] 20.7 kg/m2 20.7 k g/m2 POLO ([facility]) Body height 66 [in_i] 66 [in_i] POLO ([facility]) Diastolic blood pressure 72 mm[Hg] 72 mm[Hg] POLO ([facility]) Body weight 128 [lb_av] 128 [lb_av] POLO ([facility]) Systolic blood pressure 132 mm[Hg] 132 mm[Hg] A THENA ([facility]) Body mass index (BMI) [Ratio] 20.7 kg/m2 20.7 k g/m2 POLO ([facility]) Body height 66 [in_i] 66 [in_i] POLO ([facility]) Diastolic blood pressure 72 mm[Hg] 72 mm[Hg] POLO ([facility]) Body weight 128 [lb_av] 128 [lb_av] POLO ([facility]) Systolic blood pressure 132 mm[Hg] 132 mm[Hg] A THENA ([facility]) Body weight 128 [lb_av] 128 [lb_av] POLO ([facility]) Systolic blood pressure 132 mm[Hg] 132 mm[Hg] A THENA ([facility]) Body mass index (BMI) [Ratio] 20.7 kg/m2 20.7 k g/m2 POLO ([facility]) Body height 66 [in_i] 66 [in_i] POLO ([facility]) Diastolic blood pressure 72 mm[Hg] 72 mm[Hg] POLO ([facility]) Body weight 128 [lb_av] 128 [lb_av] POLO ([facility]) Systolic blood pressure 132 mm[Hg] 132 mm[Hg] A THENA ([facility]) Body mass index (BMI) [Ratio] 20.7 kg/m2 20.7 k g/m2 POLO ([facility]) Body height 66 [in_i] 66 [in_i] POLO ([facility]) Diastolic blood pressure 72 mm[Hg] 72 mm[Hg] POLO ([facility]) Body weight 128 [lb_av] 128 [lb_av] POLO ([facility]) Systolic blood pressure 132 mm[Hg] 132 mm[Hg] A THENA ([facility]) Body mass index (BMI) [Ratio] 20.7 kg/m2 20.7 k g/m2 POLO ([facility]) Body height 66 [in_i] 66 [in_i] POLO ([facility]) Diastolic blood pressure 72 mm[Hg] 72 mm[Hg] POLO ([facility]) Body weight 128 [lb_av] 128 [lb_av] POLO ([facility]) Systolic blood pressure 132 mm[Hg] 132 mm[Hg] A THENA ([facility]) Body mass index (BMI) [Ratio] 20.7 kg/m2 20.7 k g/m2 POLO ([facility]) Body height 66 [in_i] 66 [in_i] POLO ([facility]) Diastolic blood pressure 72 mm[Hg] 72 mm[Hg] POLO ([facility]) Body weight 128 [lb_av] 128 [lb_av] POLO ([facility]) Systolic blood pressure 132 mm[Hg] 132 mm[Hg] A THENA ([facility]) Body mass index (BMI) [Ratio] 20.7 kg/m2 20.7 k g/m2 POLO ([facility]) Body height 66 [in_i] 66 [in_i] POLO ([facility]) Diastolic blood pressure 72 mm[Hg] 72 mm[Hg] POLO ([facility]) Body weight 128 [lb_av] 128 [lb_av] POLO ([facility]) Systolic blood pressure 132 mm[Hg] 132 mm[Hg] A THENA ([facility]) Body mass index (BMI) [Ratio] 20.7 kg/m2 20.7 k g/m2 OPLO ([facility]) Body height 66 [in_i] 66 [in_i] POLO ([facility]) Diastolic blood pressure 72 mm[Hg] 72 mm[Hg] POLO ([facility]) Body mass index (BMI) [Ratio] 20.6 kg/m2 20.6 k g/m2 MEDENT ([facility]) Body weight 120.00 [lb_av] 120.00 [lb_av] MEDEN T ([facility]) Body height 64 [in_i] 64 [in_i] MEDENT ([facility]) 5'4" Body temperature 97.7 [degF] 97.7 [degF] MEDENT ([facility]) Systolic blood pressure 142 mm[Hg] 142 mm[Hg] A THENA ([facility]) Body height 66 [in_i] 66 [in_i] POLO ([facility]) Diastolic blood pressure 62 mm[Hg] 62 mm[Hg] POLO ([facility]) Systolic blood pressure 142 mm[Hg] 142 mm[Hg] A THENA ([facility]) Body height 66 [in_i] 66 [in_i] POLO ([facility]) Diastolic blood pressure 62 mm[Hg] 62 mm[Hg] POLO ([facility]) Systolic blood pressure 142 mm[Hg] 142 mm[Hg] A THENA ([facility]) Body height 66 [in_i] 66 [in_i] POLO ([facility]) Diastolic blood pressure 62 mm[Hg] 62 mm[Hg] POLO ([facility]) Systolic blood pressure 142 mm[Hg] 142 mm[Hg] A THENA ([facility]) Body height 66 [in_i] 66 [in_i] POLO ([facility]) Diastolic blood pressure 62 mm[Hg] 62 mm[Hg] POLO ([facility]) Systolic blood pressure 142 mm[Hg] 142 mm[Hg] A THENA ([facility]) Body height 66 [in_i] 66 [in_i] POLO ([facility]) Diastolic blood pressure 62 mm[Hg] 62 mm[Hg] POLO ([facility]) Systolic blood pressure 142 mm[Hg] 142 mm[Hg] A THENA ([facility]) Body height 66 [in_i] 66 [in_i] POLO ([facility]) Diastolic blood pressure 62 mm[Hg] 62 mm[Hg] POLO ([facility]) Systolic blood pressure 142 mm[Hg] 142 mm[Hg] A THENA ([facility]) Body height 66 [in_i] 66 [in_i] POLO ([facility]) Diastolic blood pressure 62 mm[Hg] 62 mm[Hg] POLO ([facility]) Systolic blood pressure 142 mm[Hg] 142 mm[Hg] A THENA ([facility]) Body height 66 [in_i] 66 [in_i] POLO ([facility]) Diastolic blood pressure 62 mm[Hg] 62 mm[Hg] POLO ([facility]) Systolic blood pressure 142 mm[Hg] 142 mm[Hg] A THENA ([facility]) Body height 66 [in_i] 66 [in_i] POLO ([facility]) Diastolic blood pressure 62 mm[Hg] 62 mm[Hg] POLO ([facility]) Systolic blood pressure 142 mm[Hg] 142 mm[Hg] A THENA ([facility]) Body height 66 [in_i] 66 [in_i] POLO ([facility]) Diastolic blood pressure 62 mm[Hg] 62 mm[Hg] POLO ([facility]) Systolic blood pressure 142 mm[Hg] 142 mm[Hg] A THENA ([facility]) Body height 66 [in_i] 66 [in_i] POLO ([facility]) Diastolic blood pressure 62 mm[Hg] 62 mm[Hg] POLO ([facility]) Systolic blood pressure 142 mm[Hg] 142 mm[Hg] A THENA ([facility]) Body height 66 [in_i] 66 [in_i] POLO ([facility]) Diastolic blood pressure 62 mm[Hg] 62 mm[Hg] POLO ([facility]) Systolic blood pressure 142 mm[Hg] 142 mm[Hg] A THENA ([facility]) Body height 66 [in_i] 66 [in_i] POLO ([facility]) Diastolic blood pressure 62 mm[Hg] 62 mm[Hg] POLO ([facility]) Systolic blood pressure 142 mm[Hg] 142 mm[Hg] A THENA ([facility]) Body height 66 [in_i] 66 [in_i] POLO ([facility]) Diastolic blood pressure 62 mm[Hg] 62 mm[Hg] POLO ([facility]) Systolic blood pressure 142 mm[Hg] 142 mm[Hg] A THENA ([facility]) Body height 66 [in_i] 66 [in_i] POLO ([facility]) Diastolic blood pressure 62 mm[Hg] 62 mm[Hg] POLO ([facility]) Systolic blood pressure 142 mm[Hg] 142 mm[Hg] A THENA ([facility]) Body height 66 [in_i] 66 [in_i] POLO ([facility]) Diastolic blood pressure 62 mm[Hg] 62 mm[Hg] POLO ([facility]) Systolic blood pressure 142 mm[Hg] 142 mm[Hg] A THENA ([facility]) Body height 66 [in_i] 66 [in_i] POLO ([facility]) Diastolic blood pressure 62 mm[Hg] 62 mm[Hg] POLO ([facility]) Systolic blood pressure 142 mm[Hg] 142 mm[Hg] A THENA ([facility]) Body height 66 [in_i] 66 [in_i] POLO ([facility]) Diastolic blood pressure 62 mm[Hg] 62 mm[Hg] POLO ([facility]) Systolic blood pressure 142 mm[Hg] 142 mm[Hg] A THENA ([facility]) Body height 66 [in_i] 66 [in_i] POLO ([facility]) Diastolic blood pressure 62 mm[Hg] 62 mm[Hg] POLO ([facility]) Diastolic blood pressure 103 mm[Hg] 103 mm[Hg] eCW1 ([facility]) Systolic blood pressure 175 mm[Hg] 175 mm[Hg] e CW1 ([facility]) Body temperature 97.8 [degF] 97.8 [degF] eCW1 ( [facility]) Respiratory rate 17 /min 17 /min eCW1 ([facility]) Heart rate 77 /min 77 /min eCW1 ([facility]) Body mass index (BMI) [Ratio] 20.73 kg/m2 20.73 kg/m2 eCW1 ([facility] [facility]) Body height 65 [in_i] 65 [in_i] eCW1 ([facility]) Body weight 124.6 [lb_av] 124.6 [lb_av] eCW1 ([facility]) Oxygen saturation in Arterial blood by Pulse oximetry 97 % 97 % MEDENT ([facility] ) Body mass index (BMI) [Ratio] 20.6 kg/m2 20.6 k g/m2 MEDENT ([facility]) Body weight 124.00 [lb_av] 124.00 [lb_av] MEDEN T ([facility]) Body height 65 [in_i] 65 [in_i] MEDENT ([facility] ) 5'5" Heart rate 74 /min 74 /min [facility] ([facility] ) Diastolic blood pressure 72 mm[Hg] 72 mm[Hg] MEDENT ([facility] ) Systolic blood pressure 120 mm[Hg] 120 mm[Hg] M EDENT ([facility]) Body weight 57.267 kg 57.267 kg [facility] ([facility]) Body mass index (BMI) [Ratio] 20.4 kg/m2 20.4 k g/m2 [facility] ([facility]) Body weight 126.25 [lb_av] 126.25 [lb_av] MEDEN T ([facility]) Body height 66 [in_i] 66 [in_i] [facility] ([facility]) 5'6" Body temperature 97.1 [degF] 97.1 [degF] [facility] ([facility]) Oxygen saturation in Arterial blood by Pulse oximetry 99 % 99 % [facility] ([facility]) Heart rate 66 /min 66 /min [facility] ([facility]) Diastolic blood pressure 86 mm[Hg] 86 mm[Hg] [facility] ([facility]) Systolic blood pressure 138 mm[Hg] 138 mm[Hg] [facility], ) Body weight 63.221 kg 63.221 kg [facility] ([facility]) Body mass index (BMI) [Ratio] 22.5 kg/m2 22.5 k g/m2 [facility] ([facility]) Body weight 139.38 [lb_av] 139.38 [lb_av] MEDEN T ([facility]) Body height 66 [in_i] 66 [in_i] [facility] ([facility], ) 5'6" Body temperature 98.0 [degF] 98.0 [degF] [facility] ([facility]) Oxygen saturation in Arterial blood by Pulse oximetry 96 % 96 % [facility] ([facility]) Heart rate 92 /min 92 /min [facility] ([facility]) Diastolic blood pressure 80 mm[Hg] 80 mm[Hg] MEDENT ([facility] ) Systolic blood pressure 162 mm[Hg] 162 mm[Hg] M EDENT ([facility], ) Body mass index (BMI) [Ratio] 22.2 kg/m2 22.2 k g/m2 MEDENT ([facility] ) Body weight 133.25 [lb_av] 133.25 [lb_av] MEDEN T ([facility] ) Body height 65 [in_i] 65 [in_i] MEDENT ([facility] ) 5'5" Heart rate 77 /min 77 /min MED[facility] ([facility] ) Diastolic blood pressure 78 mm[Hg] 78 mm[Hg] MEDENT ([facility] ) Systolic blood pressure 130 mm[Hg] 130 mm[Hg] M EDENT ([facility] ) Oxygen saturation in Arterial blood by Pulse oximetry 95 % 95 % [facility] ([facility] ) Diastolic blood pressure 68 mm[Hg] 68 mm[Hg] eCW1 ([facility]) Systolic blood pressure 128 mm[Hg] 128 mm[Hg] e CW1 ([facility]) Body temperature 96.5 [degF] 96.5 [degF] eCW1 ( [facility]) Respiratory rate 18 /min 18 /min eCW1 ([facility]) Heart rate 82 /min 82 /min eCW1 ([facility]) Body mass index (BMI) [Ratio] 22.23 kg/m2 22.23 kg/m2 W1 ([facility]) Body height 65 [in_us] 65 [in_us] eCW1 ([facility]) Body weight Measured 133.6 [lb_av] 133.6 [lb_av ] eCW1 ([facility]) Diastolic blood pressure 88 mm[Hg] 88 mm[Hg] eCW1 ([facility]) Systolic blood pressure 149 mm[Hg] 149 mm[Hg] e CW1 ([facility]) Body temperature 98.0 [degF] 98.0 [degF] eCW1 ( [facility]) Respiratory rate 17 /min 17 /min eCW1 ([facility]) Heart rate 61 /min 61 /min eCW1 ([facility]) Body mass index (BMI) [Ratio] 22.50 kg/m2 22.50 kg/m2 eCW1 ([facility]) Body height 65 [in_us] 65 [in_us] eCW1 ([facility]) Body weight Measured 135.2 [lb_av] 135.2 [lb_av ] eCW1 ([facility]) Diastolic blood pressure 79 mm[Hg] 79 mm[Hg] eCW1 ([facility]) Systolic blood pressure 172 mm[Hg] 172 mm[Hg] e CW1 ([facility]) Body temperature 97.8 [degF] 97.8 [degF] eCW1 ( [facility]) Respiratory rate 18 /min 18 /min eCW1 ([facility]) Heart rate 61 /min 61 /min eCW1 ([facility]) Body mass index (BMI) [Ratio] 22.46 kg/m2 22.46 kg/m2 eCW1 ([facility]) Body height 65 [in_us] 65 [in_us] eCW1 ([facility]) Body weight Measured 135 [lb_av] 135 [lb_av] eC W1 ([facility]) Systolic blood pressure 151 mm[Hg] 151 mm[Hg] A THENA ([facility]) Body height 66 [in_i] 66 [in_i] POLO ([facility]) Diastolic blood pressure 77 mm[Hg] 77 mm[Hg] POLO ([facility]) Systolic blood pressure 151 mm[Hg] 151 mm[Hg] A THENA ([facility]) Body height 66 [in_i] 66 [in_i] POLO ([facility]) Diastolic blood pressure 77 mm[Hg] 77 mm[Hg] POLO ([facility]) Systolic blood pressure 151 mm[Hg] 151 mm[Hg] A THENA ([facility]) Body height 66 [in_i] 66 [in_i] POLO ([facility]) Diastolic blood pressure 77 mm[Hg] 77 mm[Hg] POLO ([facility]) Systolic blood pressure 151 mm[Hg] 151 mm[Hg] A THENA ([facility]) Body height 66 [in_i] 66 [in_i] POLO ([facility]) Diastolic blood pressure 77 mm[Hg] 77 mm[Hg] PLOO ([facility]) Systolic blood pressure 151 mm[Hg] 151 mm[Hg] A THENA ([facility]) Body height 66 [in_i] 66 [in_i] POLO ([facility]) Diastolic blood pressure 77 mm[Hg] 77 mm[Hg] POLO ([facility]) Systolic blood pressure 151 mm[Hg] 151 mm[Hg] A THENA ([facility]) Body height 66 [in_i] 66 [in_i] POLO ([facility]) Diastolic blood pressure 77 mm[Hg] 77 mm[Hg] POLO ([facility]) Systolic blood pressure 151 mm[Hg] 151 mm[Hg] A THENA ([facility]) Body height 66 [in_i] 66 [in_i] POLO ([facility]) Diastolic blood pressure 77 mm[Hg] 77 mm[Hg] POLO ([facility]) Systolic blood pressure 151 mm[Hg] 151 mm[Hg] A THENA ([facility]) Body height 66 [in_i] 66 [in_i] POLO ([facility]) Diastolic blood pressure 77 mm[Hg] 77 mm[Hg] POLO ([facility]) Systolic blood pressure 151 mm[Hg] 151 mm[Hg] A THENA ([facility]) Body height 66 [in_i] 66 [in_i] POLO ([facility]) Diastolic blood pressure 77 mm[Hg] 77 mm[Hg] POLO ([facility]) Systolic blood pressure 151 mm[Hg] 151 mm[Hg] A THENA ([facility]) Body height 66 [in_i] 66 [in_i] POLO ([facility]) Diastolic blood pressure 77 mm[Hg] 77 mm[Hg] POLO ([facility]) Systolic blood pressure 151 mm[Hg] 151 mm[Hg] A THENA ([facility]) Body height 66 [in_i] 66 [in_i] POLO ([facility]) Diastolic blood pressure 77 mm[Hg] 77 mm[Hg] POLO ([facility]) Systolic blood pressure 151 mm[Hg] 151 mm[Hg] A THENA ([facility]) Body height 66 [in_i] 66 [in_i] POLO ([facility]) Diastolic blood pressure 77 mm[Hg] 77 mm[Hg] POLO ([facility]) Systolic blood pressure 151 mm[Hg] 151 mm[Hg] A THENA ([facility]) Body height 66 [in_i] 66 [in_i] POLO ([facility]) Diastolic blood pressure 77 mm[Hg] 77 mm[Hg] POLO ([facility]) Systolic blood pressure 151 mm[Hg] 151 mm[Hg] A THENA ([facility]) Body height 66 [in_i] 66 [in_i] POLO ([facility]) Diastolic blood pressure 77 mm[Hg] 77 mm[Hg] POLO ([facility]) Systolic blood pressure 151 mm[Hg] 151 mm[Hg] A THENA ([facility]) Body height 66 [in_i] 66 [in_i] POLO ([facility]) Diastolic blood pressure 77 mm[Hg] 77 mm[Hg] POLO ([facility]) Systolic blood pressure 151 mm[Hg] 151 mm[Hg] A THENA ([facility]) Body height 66 [in_i] 66 [in_i] POLO ([facility]) Diastolic blood pressure 77 mm[Hg] 77 mm[Hg] POLO ([facility]) Systolic blood pressure 151 mm[Hg] 151 mm[Hg] A THENA ([facility]) Body height 66 [in_i] 66 [in_i] POLO ([facility]) Diastolic blood pressure 77 mm[Hg] 77 mm[Hg] POLO ([facility]) Systolic blood pressure 151 mm[Hg] 151 mm[Hg] A THENA ([facility]) Body height 66 [in_i] 66 [in_i] POLO ([facility]) Diastolic blood pressure 77 mm[Hg] 77 mm[Hg] POLO ([facility]) Systolic blood pressure 151 mm[Hg] 151 mm[Hg] A THENA ([facility]) Body height 66 [in_i] 66 [in_i] POLO ([facility]) Diastolic blood pressure 77 mm[Hg] 77 mm[Hg] POLO ([facility]) Systolic blood pressure 151 mm[Hg] 151 mm[Hg] A THENA ([facility]) Body height 66 [in_i] 66 [in_i] POLO ([facility]) Diastolic blood pressure 77 mm[Hg] 77 mm[Hg] POLO ([facility]) Systolic blood pressure 151 mm[Hg] 151 mm[Hg] A THENA ([facility]) Body height 66 [in_i] 66 [in_i] POLO ([facility]) Diastolic blood pressure 77 mm[Hg] 77 mm[Hg] POLO ([facility]) Systolic blood pressure 151 mm[Hg] 151 mm[Hg] A THENA ([facility]) Body height 66 [in_i] 66 [in_i] POLO ([facility]) Diastolic blood pressure 77 mm[Hg] 77 mm[Hg] POLO ([facility]) Diastolic blood pressure 63 mm[Hg] 63 mm[Hg] eCW1 ([facility]) Systolic blood pressure 145 mm[Hg] 145 mm[Hg] e CW1 ([facility]) Body temperature 96.9 [degF] 96.9 [degF] eCW1 ( [facility]) Respiratory rate 18 /min 18 /min eCW1 ([facility]) Heart rate 62 /min 62 /min eCW1 ([facility]) Body mass index (BMI) [Ratio] 22.23 kg/m2 22.23 kg/m2 W1 ([facility]) Body height 65 [in_us] 65 [in_us] eCW1 ([facility]) Body weight Measured 133.6 [lb_av] 133.6 [lb_av ] eCW1 ([facility]) Body weight 61.690 kg 61.690 kg [facility] ([facility]) Body mass index (BMI) [Ratio] 21.9 kg/m2 21.9 k g/m2 [facility] ([facility]) Body weight 136.00 [lb_av] 136.00 [lb_av] MEDEN T ([facility]) Body height 66 [in_i] 66 [in_i] [facility] ([facility]) 5'6" Oxygen saturation in Arterial blood by Pulse oximetry 94 % 94 % [facility] ([facility]) Heart rate 65 /min 65 /min [facility] ([facility]) Diastolic blood pressure 80 mm[Hg] 80 mm[Hg] [facility] ([facility]) Systolic blood pressure 119 mm[Hg] 119 mm[Hg] M EDENT ([facility]) Diastolic blood pressure 70 mm[Hg] 70 mm[Hg] eCW1 ([facility]) Systolic blood pressure 160 mm[Hg] 160 mm[Hg] e CW1 ([facility]) Body temperature 97.6 [degF] 97.6 [degF] eCW1 ( [facility]) Respiratory rate 18 /min 18 /min eCW1 ([facility]) Heart rate 75 /min 75 /min eCW1 ([facility]) Body mass index (BMI) [Ratio] 22.63 kg/m2 22.63 kg/m2 eCW1 ([facility]) Body height 65 [in_us] 65 [in_us] eCW1 ([facility]) Body weight Measured 136 [lb_av] 136 [lb_av] eC W1 ([facility]) Patient Treatment Plan of Care Planned Activity Planned Date Details Description Data Source (s) Ciprofloxacin 500 MG Oral Tablet 12/29/2019 12:00:00 AM EST eCW1 ([facility]) Ciprofloxacin 500 MG Oral Tablet 12/29/2019 12:00:00 AM EST eCW1 ([facility]) Ciprofloxacin 500 MG Oral Tablet 12/29/2019 12:00:00 AM EST eCW1 ([facility]) Ciprofloxacin 500 MG Oral Tablet 12/29/2019 12:00:00 AM EST eCW1 ([facility]) Ciprofloxacin 500 MG Oral Tablet 12/29/2019 12:00:00 AM EST eCW1 ([facility]) tizanidine 4 MG Oral Tablet 12/13/2019 12:00:00 AM EDT eCW1 ([facility]) Sulfamethoxazole 800 MG / Trimethoprim 160 MG Oral Tab let [Bactrim] 12/13/2019 12:00:00 AM EDT eCW1 ([facility]) tizanidine 4 MG Oral Tablet 12/13/2019 12:00:00 AM EDT eCW1 ([facility]) Sulfamethoxazole 800 MG / Trimethoprim 160 MG Oral Tab let [Bactrim] 12/13/2019 12:00:00 AM EDT eCW1 ([facility]) tizanidine 4 MG Oral Tablet 12/13/2019 12:00:00 AM EDT eCW1 ([facility]) Sulfamethoxazole 800 MG / Trimethoprim 160 MG Oral Tab let [Bactrim] 12/13/2019 12:00:00 AM EDT eCW1 ([facility]) tizanidine 4 MG Oral Tablet 12/13/2019 12:00:00 AM EDT eCW1 ([facility]) Sulfamethoxazole 800 MG / Trimethoprim 160 MG Oral Tab let [Bactrim] 12/13/2019 12:00:00 AM EDT eCW1 ([facility]) tizanidine 4 MG Oral Tablet 12/13/2019 12:00:00 AM EDT eCW1 ([facility]) Sulfamethoxazole 800 MG / Trimethoprim 160 MG Oral Tab let [Bactrim] 12/13/2019 12:00:00 AM EDT eCW1 ([facility]) tizanidine 4 MG Oral Tablet 12/13/2019 12:00:00 AM EDT eCW1 ([facility]) Sulfamethoxazole 800 MG / Trimethoprim 160 MG Oral Tab let [Bactrim] 12/13/2019 12:00:00 AM EDT eCW1 ([facility]) tizanidine 4 MG Oral Tablet 12/13/2019 12:00:00 AM EDT eCW1 ([facility]) Sulfamethoxazole 800 MG / Trimethoprim 160 MG Oral Tab let [Bactrim] 12/13/2019 12:00:00 AM EDT eCW1 ([facility]) Alprazolam 0.5 MG Oral Tablet 07/14/2019 12:00:00 AM EDT eCW1 ([facility]) Alprazolam 0.5 MG Oral Tablet 07/14/2019 12:00:00 AM EDT eCW1 ([facility]) Lidocaine Hydrochloride 0.02 MG/MG Topical Gel 04/19/2019 12:00:00 AM EST eCW1 ([facility]) pantoprazole 20 MG Delayed Release Oral Tablet 04/11/2019 12:00:00 AM EST eCW1 ([facility]) Prednisone 20 MG Oral Tablet 03/31/2019 12:00:00 AM EST eCW1 ([facility]) Doxycycline Monohydrate 100 MG Oral Capsule 03/31/2019 12:00:00 AM EST eCW1 ([facility]) Omeprazole 20 MG Delayed Release Oral Tablet 03/31/2019 12:00:00 AM EST eCW1 ([facility]) gabapentin 400 MG Oral Capsule 02/28/2019 12:00:00 AM EST eCW1 ([facility]) gabapentin 400 MG Oral Capsule 02/28/2019 12:00:00 AM EST eCW1 ([facility]) gabapentin 400 MG Oral Capsule 02/28/2019 12:00:00 AM EST eCW1 ([facility]) Famotidine 40 MG Oral Tablet 02/21/2019 12:00:00 AM EST eCW1 ([facility]) Doxycycline Monohydrate 100 MG Oral Capsule 01/21/2019 12:00:00 AM EST eCW1 ([facility]) Prednisone 20 MG Oral Tablet 01/21/2019 12:00:00 AM EST eCW1 ([facility]) Trazodone Hydrochloride 50 MG Oral Tablet POLO ([facility]) topiramate 100 mg tabs ATHE NA ([facility]) tizanidine hydrochloride 4 mg tabs POLO ([facility]) Sulfamethoxazole 800 MG / Trimethoprim 160 MG Oral Tablet POLO ([facility]) Ranitidine 150 MG Oral Tablet POLO ([facility]) Prednisone 20 MG Oral Tablet POLO ([facility]) prednisone 20 mg tabs ATHEN A ([facility]) Phenazopyridine hydrochloride 200 MG Oral Tablet POLO ([facility]) paroxetine hcl 30 mg tabs A THENA ([facility]) pantoprazole sodium 20 mg tbec POLO ([facility]) pantoprazole 20 MG Delayed Release Oral Tablet POLO ([facility]) Omeprazole 20 MG Delayed Release Oral Capsule POLO ([facility]) omeprazole 20 mg cpdr ATHEN A ([facility]) Nortriptyline 25 MG Oral Capsule POLO ([facility]) NITROFURANTOIN, MACROCRYSTALS 25 MG / Ni trofurantoin, Monohydrate 75 MG Oral Capsule [facility]O ([facility]) methylprednisolone dose pack 4 mg tbpk POLO ([facility]) methylprednisolone 4 mg tablets in a dose pack POLO ([facility]) lidocaine hcl jelly 2 % gel POLO ([facility]) Lidocaine Hydrochloride 0.02 MG/MG Topical Gel POLO ([facility]) lidocaine 5 % topical patch POLO ([facility]) ipratropium/ tiff albuter ATH MIREYA ([facility]) Albuterol 0.833 MG/ML / Ipratropium [place] 0.167 MG/ML Inhalant So lution POLO ([facility]) Acetaminophen 325 MG / Hydrocodone Bitartrate 5 MG Oral Tablet POLO ([facility]) hydroco/apap tab 5-325mg ATH MIREYA ([facility]) gabapentin 400 mg caps ATHE NA ([facility]) gabapentin 300 mg caps ATHE NA ([facility]) Fluzone Quad [id number] (PF) 60 mcg (15 m cg x 4)/0.5 mL IM suspension INJECT DIRECTED POLO ([facility]) Famotidine 40 MG Oral Tablet POLO ([facility]) famotidine 40 mg tabs ATHEN A ([facility]) ezetimibe 10 mg tabs POLO ([facility]) Doxycycline Monohydrate 100 MG Oral Capsule POLO ([facility]) doxycycline monohydrate 100 mg caps POLO ([facility]) Cyclobenzaprine hydrochloride 10 MG Oral Tablet POLO ([facility]) clopidogrel 75 mg tabs ATHE NA ([facility]) Carisoprodol 350 MG Oral Tablet POLO ([facility]) carisoprodol 350 mg tabs AT JHONATAN ([facility]) atorvastatin calcium 80 mg tabs POLO ([facility]) fluticasone furoate 0.2 MG/ACTUAT Dry Powder Inhaler POLO ([facility]) Alprazolam 0.5 MG Oral Tablet POLO ([facility]) alprazolam 0.5 mg tabs ATHE NA ([facility]) albuterol sulfate HFA 90 mcg/actuation a erosol inhaler INHALE TWO PUFFS BY MOUTH FOUR TIMES A DAY NEEDED ATHE NA ([facility]) famotidine 40 mg tabs ATHEN A ([facility]) ezetimibe 10 mg tabs POLO ([facility]) Doxycycline Monohydrate 100 MG Oral Capsule POLO ([facility]) doxycycline monohydrate 100 mg caps POLO ([facility]) Cyclobenzaprine hydrochloride 10 MG Oral Tablet POLO ([facility]) clopidogrel 75 mg tabs ATHE NA ([facility]) Carisoprodol 350 MG Oral Tablet POLO ([facility]) carisoprodol 350 mg tabs AT JHONATAN ([facility]) atorvastatin calcium 80 mg tabs POLO ([facility]) fluticasone furoate 0.2 MG/ACTUAT Dry Powder Inhaler POLO ([facility]) umeclidinium 0.0625 MG/ACTUAT / vilanterol 0.025 MG/ACTUAT D ry Powder Inhaler POLO ([facility]) Alprazolam 0.5 MG Oral Tablet POLO ([facility]) alprazolam 0.5 mg tabs ATHE NA ([facility]) Trazodone Hydrochloride 50 MG Oral Tablet POLO ([facility]) topiramate 100 mg tabs ATHE NA ([facility]) tizanidine hydrochloride 4 mg tabs POLO ([facility]) Sulfamethoxazole 800 MG / Trimethoprim 160 MG Oral Tablet POLO ([facility]) Ranitidine 150 MG Oral Tablet POLO ([facility]) Prednisone 20 MG Oral Tablet POLO ([facility]) prednisone 20 mg tabs ATHEN A ([facility]) Phenazopyridine hydrochloride 200 MG Oral Tablet POLO ([facility]) paroxetine hcl 30 mg tabs A THENA ([facility]) pantoprazole sodium 20 mg tbec POLO ([facility]) pantoprazole 20 MG Delayed Release Oral Tablet POLO ([facility]) Omeprazole 20 MG Delayed Release Oral Capsule POLO ([facility]) omeprazole 20 mg cpdr ATHEN A ([facility]) Nortriptyline 25 MG Oral Capsule POLO ([facility]) NITROFURANTOIN, MACROCRYSTALS 25 MG / Ni trofurantoin, Monohydrate 75 MG Oral Capsule POLO ([facility]) methylprednisolone dose pack 4 mg tbpk POLO ([facility]) methylprednisolone 4 mg tablets in a dose pack POLO ([facility]) lidocaine hcl jelly 2 % gel POLO ([facility]) Lidocaine Hydrochloride 0.02 MG/MG Topical Gel POLO ([facility]) lidocaine 5 % topical patch POLO ([facility]) ipratropium/ tiff albuter ATH MIREYA ([facility]) Albuterol 0.833 MG/ML / Ipratropium [place] 0.167 MG/ML Inhalant So lution POLO ([facility]) Acetaminophen 325 MG / Hydrocodone Bitartrate 5 MG Oral Tablet POLO ([facility]) hydroco/apap tab 5-325mg ATH MIREYA ([facility]) gabapentin 400 mg caps ATHE NA ([facility]) gabapentin 300 mg caps ATHE NA ([facility]) Famotidine 40 MG Oral Tablet POLO ([facility]) famotidine 40 mg tabs ATHEN A ([facility]) ezetimibe 10 mg tabs POLO ([facility]) Doxycycline Monohydrate 100 MG Oral Capsule POLO ([facility]) doxycycline monohydrate 100 mg caps POLO ([facility]) Cyclobenzaprine hydrochloride 10 MG Oral Tablet POLO ([facility]) clopidogrel 75 mg tabs ATHE NA ([facility]) Carisoprodol 350 MG Oral Tablet POLO ([facility]) carisoprodol 350 mg tabs AT JHONATAN ([facility]) atorvastatin calcium 80 mg tabs POLO ([facility]) fluticasone furoate 0.2 MG/ACTUAT Dry Powder Inhaler POLO ([facility]) umeclidinium 0.0625 MG/ACTUAT / vilanterol 0.025 MG/ACTUAT D ry Powder Inhaler POLO ([facility]) Alprazolam 0.5 MG Oral Tablet POLO ([facility]) alprazolam 0.5 mg tabs ATHE NA ([facility]) Trazodone Hydrochloride 50 MG Oral Tablet POLO ([facility]) topiramate 100 mg tabs ATHE NA ([facility]) tizanidine hydrochloride 4 mg tabs POLO ([facility]) Sulfamethoxazole 800 MG / Trimethoprim 160 MG Oral Tablet POLO ([facility]) Ranitidine 150 MG Oral Tablet POLO ([facility]) Prednisone 20 MG Oral Tablet POLO ([facility]) prednisone 20 mg tabs ATHEN A ([facility]) Phenazopyridine hydrochloride 200 MG Oral Tablet POLO ([facility]) paroxetine hcl 30 mg tabs A THENA ([facility]) pantoprazole sodium 20 mg tbec POLO ([facility]) pantoprazole 20 MG Delayed Release Oral Tablet POLO ([facility]) Omeprazole 20 MG Delayed Release Oral Capsule POLO ([facility]) omeprazole 20 mg cpdr ATHEN A ([facility]) Nortriptyline 25 MG Oral Capsule POLO ([facility]) NITROFURANTOIN, MACROCRYSTALS 25 MG / Ni trofurantoin, Monohydrate 75 MG Oral Capsule POLO ([facility]) methylprednisolone dose pack 4 mg tbpk POLO ([facility]) methylprednisolone 4 mg tablets in a dose pack POLO ([facility]) lidocaine hcl jelly 2 % gel POLO ([facility]) Lidocaine Hydrochloride 0.02 MG/MG Topical Gel POLO ([facility]) lidocaine 5 % topical patch POLO ([facility]) ipratropium/ tiff albuter ATH MIREYA ([facility]) Albuterol 0.833 MG/ML / Ipratropium [place] 0.167 MG/ML Inhalant So lution POLO ([facility]) Acetaminophen 325 MG / Hydrocodone Bitartrate 5 MG Oral Tablet POLO ([facility]) hydroco/apap tab 5-325mg ATH MIREYA ([facility]) Cyclobenzaprine hydrochloride 10 MG Oral Tablet POLO ([facility]) clopidogrel 75 mg tabs ATHE NA ([facility]) Carisoprodol 350 MG Oral Tablet POLO ([facility]) carisoprodol 350 mg tabs AT JHONATAN ([facility]) atorvastatin calcium 80 mg tabs POLO ([facility]) fluticasone furoate 0.2 MG/ACTUAT Dry Powder Inhaler POLO ([facility]) umeclidinium 0.0625 MG/ACTUAT / vilanterol 0.025 MG/ACTUAT D ry Powder Inhaler POLO ([facility]) Alprazolam 0.5 MG Oral Tablet POLO ([facility]) alprazolam 0.5 mg tabs ATHE NA ([facility]) Trazodone Hydrochloride 50 MG Oral Tablet POLO ([facility]) topiramate 100 mg tabs ATHE NA ([facility]) tizanidine hydrochloride 4 mg tabs POLO ([facility]) Ranitidine 150 MG Oral Tablet POLO ([facility]) Prednisone 20 MG Oral Tablet POLO ([facility]) paroxetine hcl 30 mg tabs A THENA ([facility]) pantoprazole sodium 20 mg tbec POLO ([facility]) omeprazole 20 mg cpdr ATHEN A ([facility]) Nortriptyline 25 MG Oral Capsule POLO ([facility]) methylprednisolone dose pack 4 mg tbpk POLO ([facility]) lidocaine hcl jelly 2 % gel POLO ([facility]) Lidocaine Hydrochloride 0.02 MG/MG Topical Gel POLO ([facility]) ipratropium/ tiff albuter ATH MIREYA ([facility]) Acetaminophen 325 MG / Hydrocodone Bitartrate 5 MG Oral Tablet POLO ([facility]) hydroco/apap tab 5-325mg ATH MIREYA ([facility]) gabapentin 400 mg caps ATHE NA ([facility]) gabapentin 300 mg caps ATHE NA ([facility]) famotidine 40 mg tabs ATHEN A ([facility]) ezetimibe 10 mg tabs POLO ([facility]) doxycycline monohydrate 100 mg caps POLO ([facility]) clopidogrel 75 mg tabs ATHE NA ([facility]) Carisoprodol 350 MG Oral Tablet POLO ([facility]) carisoprodol 350 mg tabs AT JHONATAN ([facility]) atorvastatin calcium 80 mg tabs POLO ([facility]) Trazodone Hydrochloride 50 MG Oral Tablet POLO ([facility]) Trazodone Hydrochloride 50 MG Oral Tablet POLO ([facility]) topiramate 100 mg tabs ATHE NA ([facility]) tizanidine hydrochloride 4 mg tabs POLO ([facility]) Sulfamethoxazole 800 MG / Trimethoprim 160 MG Oral Tablet POLO ([facility]) Ranitidine 150 MG Oral Tablet POLO ([facility]) Prednisone 20 MG Oral Tablet POLO ([facility]) prednisone 20 mg tabs ATHEN A ([facility]) Phenazopyridine hydrochloride 200 MG Oral Tablet POLO ([facility]) paroxetine hcl 30 mg tabs A THENA ([facility]) pantoprazole sodium 20 mg tbec POLO ([facility]) pantoprazole 20 MG Delayed Release Oral Tablet POLO ([facility]) Omeprazole 20 MG Delayed Release Oral Capsule POLO ([facility]) omeprazole 20 mg cpdr ATHEN A ([facility]) Nortriptyline 25 MG Oral Capsule POLO ([facility]) NITROFURANTOIN, MACROCRYSTALS 25 MG / Ni trofurantoin, Monohydrate 75 MG Oral Capsule POLO ([facility]) methylprednisolone dose pack 4 mg tbpk POLO ([facility]) methylprednisolone 4 mg tablets in a dose pack POLO ([facility]) lidocaine hcl jelly 2 % gel POLO ([facility]) Lidocaine Hydrochloride 0.02 MG/MG Topical Gel POLO ([facility]) lidocaine 5 % topical patch POLO ([facility]) ipratropium/ tiff albuter ATH MIREYA ([facility]) Albuterol 0.833 MG/ML / Ipratropium [place] 0.167 MG/ML Inhalant So lution POLO ([facility]) Acetaminophen 325 MG / Hydrocodone Bitartrate 5 MG Oral Tablet POLO ([facility]) hydroco/apap tab 5-325mg ATH MIREYA ([facility]) gabapentin 400 mg caps ATHE NA ([facility]) gabapentin 300 mg caps ATHE NA ([facility]) Fluzone Quad [id number] (PF) 60 mcg (15 m cg x 4)/0.5 mL IM suspension INJECT DIRECTED POLO ([facility]) Famotidine 40 MG Oral Tablet POLO ([facility]) famotidine 40 mg tabs ATHEN A ([facility]) ezetimibe 10 mg tabs POLO ([facility]) Doxycycline Monohydrate 100 MG Oral Capsule POLO ([facility]) doxycycline monohydrate 100 mg caps POLO ([facility]) Cyclobenzaprine hydrochloride 10 MG Oral Tablet POLO ([facility]) clopidogrel 75 mg tabs ATHE NA ([facility]) Carisoprodol 350 MG Oral Tablet POLO ([facility]) carisoprodol 350 mg tabs AT JHONATAN ([facility]) atorvastatin calcium 80 mg tabs POLO ([facility]) fluticasone furoate 0.2 MG/ACTUAT Dry Powder Inhaler POLO ([facility]) umeclidinium 0.0625 MG/ACTUAT / vilanterol 0.025 MG/ACTUAT D ry Powder Inhaler POLO ([facility]) Alprazolam 0.5 MG Oral Tablet POLO ([facility]) alprazolam 0.5 mg tabs ATHE NA ([facility]) albuterol sulfate HFA 90 mcg/actuation a erosol inhaler INHALE TWO PUFFS BY MOUTH FOUR TIMES A DAY NEEDED ATHE NA ([facility]) Trazodone Hydrochloride 50 MG Oral Tablet POLO ([facility]) topiramate 100 mg tabs ATHE NA ([facility]) tizanidine hydrochloride 4 mg tabs POLO ([facility]) Sulfamethoxazole 800 MG / Trimethoprim 160 MG Oral Tablet POLO ([facility]) Ranitidine 150 MG Oral Tablet POLO ([facility]) Prednisone 20 MG Oral Tablet POLO ([facility]) prednisone 20 mg tabs ATHEN A ([facility]) Phenazopyridine hydrochloride 200 MG Oral Tablet POLO ([facility]) paroxetine hcl 30 mg tabs A THENA ([facility]) pantoprazole sodium 20 mg tbec POLO ([facility]) pantoprazole 20 MG Delayed Release Oral Tablet POLO ([facility]) Omeprazole 20 MG Delayed Release Oral Capsule POLO ([facility]) omeprazole 20 mg cpdr ATHEN A ([facility]) Nortriptyline 25 MG Oral Capsule POLO ([facility]) NITROFURANTOIN, MACROCRYSTALS 25 MG / Ni trofurantoin, Monohydrate 75 MG Oral Capsule [facility] ([facility] methylprednisolone dose pack 4 mg tbpk POLO ([facility]) methylprednisolone 4 mg tablets in a dose pack POLO ([facility]) lidocaine hcl jelly 2 % gel POLO ([facility]) Lidocaine Hydrochloride 0.02 MG/MG Topical Gel POLO ([facility]) lidocaine 5 % topical patch POLO ([facility]) ipratropium/ tiff albuter ATH MIREYA ([facility]) Albuterol 0.833 MG/ML / Ipratropium [place] 0.167 MG/ML Inhalant So lution POLO ([facility]) Acetaminophen 325 MG / Hydrocodone Bitartrate 5 MG Oral Tablet POLO ([facility]) hydroco/apap tab 5-325mg ATH MIREYA ([facility]) gabapentin 400 mg caps ATHE NA ([facility]) gabapentin 300 mg caps ATHE NA ([facility]) Famotidine 40 MG Oral Tablet POLO ([facility]) alprazolam 0.5 mg tabs ATHE NA ([facility]) Trazodone Hydrochloride 50 MG Oral Tablet POLO ([facility]) topiramate 100 mg tabs ATHE NA ([facility]) tizanidine hydrochloride 4 mg tabs POLO ([facility]) Ranitidine 150 MG Oral Tablet POLO ([facility]) Prednisone 20 MG Oral Tablet POLO ([facility]) paroxetine hcl 30 mg tabs A THENA ([facility]) pantoprazole sodium 20 mg tbec POLO ([facility]) omeprazole 20 mg cpdr ATHEN A ([facility]) Nortriptyline 25 MG Oral Capsule POLO ([facility]) methylprednisolone dose pack 4 mg tbpk POLO ([facility]) lidocaine hcl jelly 2 % gel POLO ([facility]) Lidocaine Hydrochloride 0.02 MG/MG Topical Gel POLO ([facility]) ipratropium/ tiff albuter ATH MIREYA ([facility]) Acetaminophen 325 MG / Hydrocodone Bitartrate 5 MG Oral Tablet POLO ([facility]) hydroco/apap tab 5-325mg ATH MIREYA ([facility]) Trazodone Hydrochloride 50 MG Oral Tablet POLO ([facility]) topiramate 100 mg tabs ATHE NA ([facility]) tizanidine hydrochloride 4 mg tabs POLO ([facility]) tizanidine 4 MG Oral Tablet POLO ([facility]) Ranitidine 150 MG Oral Tablet POLO ([facility]) Prednisone 20 MG Oral Tablet POLO ([facility]) paroxetine hcl 30 mg tabs A THENA ([facility]) pantoprazole sodium 20 mg tbec POLO ([facility]) omeprazole 20 mg cpdr ATHEN A ([facility]) Nortriptyline 25 MG Oral Capsule POLO ([facility]) methylprednisolone dose pack 4 mg tbpk POLO ([facility]) lidocaine hcl jelly 2 % gel POLO ([facility]) Lidocaine Hydrochloride 0.02 MG/MG Topical Gel POLO ([facility]) ipratropium/ tiff albuter ATH MIREYA ([facility]) Acetaminophen 325 MG / Hydrocodone Bitartrate 5 MG Oral Tablet POLO ([facility]) hydroco/apap tab 5-325mg ATH MIREYA ([facility]) gabapentin 400 mg caps ATHE NA ([facility]) gabapentin 300 mg caps ATHE NA ([facility]) famotidine 40 mg tabs ATHEN A ([facility]) ezetimibe 10 mg tabs POLO ([facility]) doxycycline monohydrate 100 mg caps POLO ([facility]) clopidogrel 75 mg tabs ATHE NA ([facility]) Carisoprodol 350 MG Oral Tablet POLO ([facility]) carisoprodol 350 mg tabs AT JHONATAN ([facility]) atorvastatin calcium 80 mg tabs POLO ([facility]) alprazolam 0.5 mg tabs ATHE NA ([facility]) Trazodone Hydrochloride 50 MG Oral Tablet POLO ([facility]) topiramate 100 mg tabs ATHE NA ([facility]) tizanidine hydrochloride 4 mg tabs POLO ([facility]) tizanidine 4 MG Oral Tablet POLO ([facility]) Ranitidine 150 MG Oral Tablet POLO ([facility]) Prednisone 20 MG Oral Tablet POLO ([facility]) paroxetine hcl 30 mg tabs A THENA ([facility]) pantoprazole sodium 20 mg tbec POLO ([facility]) omeprazole 20 mg cpdr ATHEN A ([facility]) Nortriptyline 25 MG Oral Capsule POLO ([facility]) methylprednisolone dose pack 4 mg tbpk POLO ([facility]) topiramate 100 mg tabs ATHE NA ([facility]) tizanidine hydrochloride 4 mg tabs POLO ([facility]) Sulfamethoxazole 800 MG / Trimethoprim 160 MG Oral Tablet POLO ([facility]) Ranitidine 150 MG Oral Tablet POLO ([facility]) Prednisone 20 MG Oral Tablet POLO ([facility]) prednisone 20 mg tabs ATHEN A ([facility]) Phenazopyridine hydrochloride 200 MG Oral Tablet POLO ([facility]) paroxetine hcl 30 mg tabs A THENA ([facility]) pantoprazole sodium 20 mg tbec POLO ([facility]) pantoprazole 20 MG Delayed Release Oral Tablet POLO ([facility]) lidocaine 5 % topical patch POLO ([facility]) ipratropium/ tiff albuter ATH MIREYA ([facility]) Albuterol 0.833 MG/ML / Ipratropium [place] 0.167 MG/ML Inhalant So lution POLO ([facility]) Acetaminophen 325 MG / Hydrocodone Bitartrate 5 MG Oral Tablet POLO ([facility]) hydroco/apap tab 5-325mg ATH MIREYA ([facility]) gabapentin 400 mg caps ATHE NA ([facility]) gabapentin 300 mg caps ATHE NA ([facility]) Fluzone Quad [id number] (PF) 60 mcg (15 m cg x 4)/0.5 mL IM suspension INJECT DIRECTED POLO ([facility]) Famotidine 40 MG Oral Tablet POLO ([facility]) famotidine 40 mg tabs ATHEN A ([facility]) ezetimibe 10 mg tabs POLO ([facility]) Doxycycline Monohydrate 100 MG Oral Capsule POLO ([facility]) doxycycline monohydrate 100 mg caps POLO ([facility]) Cyclobenzaprine hydrochloride 10 MG Oral Tablet POLO ([facility]) clopidogrel 75 mg tabs ATHE NA ([facility]) Carisoprodol 350 MG Oral Tablet POLO ([facility]) carisoprodol 350 mg tabs AT JHONATAN ([facility]) atorvastatin calcium 80 mg tabs POLO ([facility]) fluticasone furoate 0.2 MG/ACTUAT Dry Powder Inhaler POLO ([facility]) umeclidinium 0.0625 MG/ACTUAT / vilanterol 0.025 MG/ACTUAT D ry Powder Inhaler POLO ([facility]) Alprazolam 0.5 MG Oral Tablet POLO ([facility]) alprazolam 0.5 mg tabs ATHE NA ([facility]) albuterol sulfate HFA 90 mcg/actuation a erosol inhaler INHALE TWO PUFFS BY MOUTH FOUR TIMES A DAY NEEDED ATHE NA ([facility]) gabapentin 400 mg caps ATHE NA ([facility]) gabapentin 300 mg caps ATHE NA ([facility]) Famotidine 40 MG Oral Tablet POLO ([facility]) famotidine 40 mg tabs ATHEN A ([facility]) ezetimibe 10 mg tabs POLO ([facility]) Doxycycline Monohydrate 100 MG Oral Capsule POLO ([facility]) doxycycline monohydrate 100 mg caps POLO ([facility]) Cyclobenzaprine hydrochloride 10 MG Oral Tablet POLO ([facility]) clopidogrel 75 mg tabs ATHE NA ([facility]) Carisoprodol 350 MG Oral Tablet POLO ([facility]) carisoprodol 350 mg tabs AT JHONATAN ([facility]) atorvastatin calcium 80 mg tabs POLO ([facility]) fluticasone furoate 0.2 MG/ACTUAT Dry Powder Inhaler POLO ([facility]) umeclidinium 0.0625 MG/ACTUAT / vilanterol 0.025 MG/ACTUAT D ry Powder Inhaler POLO ([facility]) Alprazolam 0.5 MG Oral Tablet POLO ([facility]) alprazolam 0.5 mg tabs ATHE NA ([facility]) Trazodone Hydrochloride 50 MG Oral Tablet POLO ([facility]) topiramate 100 mg tabs ATHE NA ([facility]) tizanidine hydrochloride 4 mg tabs POLO ([facility]) Sulfamethoxazole 800 MG / Trimethoprim 160 MG Oral Tablet POLO ([facility]) Ranitidine 150 MG Oral Tablet POLO ([facility]) Prednisone 20 MG Oral Tablet POLO ([facility]) prednisone 20 mg tabs ATHEN A ([facility]) Phenazopyridine hydrochloride 200 MG Oral Tablet POLO ([facility]) paroxetine hcl 30 mg tabs A THENA ([facility]) pantoprazole sodium 20 mg tbec POLO ([facility]) pantoprazole 20 MG Delayed Release Oral Tablet POLO ([facility]) Omeprazole 20 MG Delayed Release Oral Capsule POLO ([facility]) omeprazole 20 mg cpdr ATHEN A ([facility]) Nortriptyline 25 MG Oral Capsule POLO ([facility]) NITROFURANTOIN, MACROCRYSTALS 25 MG / Ni trofurantoin, Monohydrate 75 MG Oral Capsule POLO ([facility]) methylprednisolone dose pack 4 mg tbpk POLO ([facility]) methylprednisolone 4 mg tablets in a dose pack POLO ([facility]) lidocaine hcl jelly 2 % gel POLO ([facility]) Lidocaine Hydrochloride 0.02 MG/MG Topical Gel POLO ([facility]) lidocaine 5 % topical patch POLO ([facility]) ipratropium/ tiff albuter ATH MIREYA ([facility]) Albuterol 0.833 MG/ML / Ipratropium [place] 0.167 MG/ML Inhalant So lution POLO ([facility]) Acetaminophen 325 MG / Hydrocodone Bitartrate 5 MG Oral Tablet POLO ([facility]) hydroco/apap tab 5-325mg ATH MIREYA ([facility]) gabapentin 400 mg caps ATHE NA ([facility]) gabapentin 300 mg caps ATHE NA ([facility]) Famotidine 40 MG Oral Tablet POLO ([facility]) famotidine 40 mg tabs ATHEN A ([facility]) ezetimibe 10 mg tabs POLO ([facility]) Doxycycline Monohydrate 100 MG Oral Capsule POLO ([facility]) doxycycline monohydrate 100 mg caps POLO ([facility]) lidocaine hcl jelly 2 % gel POLO ([facility]) Lidocaine Hydrochloride 0.02 MG/MG Topical Gel POLO ([facility]) ipratropium/ tiff albuter ATH MIREYA ([facility]) Acetaminophen 325 MG / Hydrocodone Bitartrate 5 MG Oral Tablet POLO ([facility]) hydroco/apap tab 5-325mg ATH MIREYA ([facility]) gabapentin 400 mg caps ATHE NA ([facility]) gabapentin 300 mg caps ATHE NA ([facility]) famotidine 40 mg tabs ATHEN A ([facility]) ezetimibe 10 mg tabs POLO ([facility]) doxycycline monohydrate 100 mg caps POLO ([facility]) clopidogrel 75 mg tabs ATHE NA ([facility]) Carisoprodol 350 MG Oral Tablet POLO ([facility]) carisoprodol 350 mg tabs AT JHONATAN ([facility]) atorvastatin calcium 80 mg tabs POLO ([facility]) atorvastatin calcium 80 mg tabs POLO ([facility]) alprazolam 0.5 mg tabs ATHE NA ([facility]) Acetaminophen 325 MG / Hydrocodone Bitartrate 5 MG Oral Tablet POLO ([facility] [facility] hydroco/apap tab 5-325mg ATH MIREYA ([facility]) gabapentin 400 mg caps ATHE NA ([facility]) gabapentin 300 mg caps ATHE NA ([facility]) famotidine 40 mg tabs ATHEN A ([facility]) ezetimibe 10 mg tabs POLO ([facility]) doxycycline monohydrate 100 mg caps POLO ([facility]) clopidogrel 75 mg tabs ATHE NA ([facility]) Carisoprodol 350 MG Oral Tablet POLO ([facility]) carisoprodol 350 mg tabs AT JHONATAN ([facility]) atorvastatin calcium 80 mg tabs POLO ([facility]) alprazolam 0.5 mg tabs ATHE NA ([facility]) Trazodone Hydrochloride 50 MG Oral Tablet POLO ([facility]) topiramate 100 mg tabs ATHE NA ([facility]) tizanidine hydrochloride 4 mg tabs POLO ([facility]) tizanidine 4 MG Oral Tablet POLO ([facility]) Ranitidine 150 MG Oral Tablet POLO ([facility]) Prednisone 20 MG Oral Tablet POLO ([facility]) paroxetine hcl 30 mg tabs A THENA ([facility]) pantoprazole sodium 20 mg tbec POLO ([facility]) omeprazole 20 mg cpdr ATHEN A ([facility]) Nortriptyline 25 MG Oral Capsule POLO ([facility]) Omeprazole 20 MG Delayed Release Oral Capsule POLO ([facility]) omeprazole 20 mg cpdr ATHEN A ([facility]) Nortriptyline 25 MG Oral Capsule POLO ([facility]) NITROFURANTOIN, MACROCRYSTALS 25 MG / Ni trofurantoin, Monohydrate 75 MG Oral Capsule POLO ([facility]) methylprednisolone dose pack 4 mg tbpk POLO ([facility]) methylprednisolone 4 mg tablets in a dose pack POLO ([facility]) lidocaine hcl jelly 2 % gel POLO ([facility]) Lidocaine Hydrochloride 0.02 MG/MG Topical Gel POLO ([facility]) gabapentin 400 mg caps ATHE NA ([facility]) gabapentin 300 mg caps ATHE NA ([facility]) famotidine 40 mg tabs ATHEN A ([facility]) ezetimibe 10 mg tabs POLO ([facility]) doxycycline monohydrate 100 mg caps POLO ([facility]) clopidogrel 75 mg tabs ATHE NA ([facility]) Carisoprodol 350 MG Oral Tablet POLO ([facility]) carisoprodol 350 mg tabs AT JHONATAN ([facility]) atorvastatin calcium 80 mg tabs POLO ([facility]) alprazolam 0.5 mg tabs ATHE NA ([facility]) methylprednisolone dose pack 4 mg tbpk POLO ([facility]) lidocaine hcl jelly 2 % gel POLO ([facility]) Lidocaine Hydrochloride 0.02 MG/MG Topical Gel POLO ([facility]) ipratropium/ tiff albuter ATH MIREYA ([facility]) Acetaminophen 325 MG / Hydrocodone Bitartrate 5 MG Oral Tablet POLO ([facility]) hydroco/apap tab 5-325mg ATH MIREYA ([facility]) gabapentin 400 mg caps ATHE NA ([facility]) gabapentin 300 mg caps ATHE NA ([facility]) famotidine 40 mg tabs ATHEN A ([facility]) ezetimibe 10 mg tabs POLO ([facility]) doxycycline monohydrate 100 mg caps POLO ([facility]) clopidogrel 75 mg tabs ATHE NA ([facility]) Carisoprodol 350 MG Oral Tablet POLO ([facility]) carisoprodol 350 mg tabs AT JHONATAN ([facility]) atorvastatin calcium 80 mg tabs POLO ([facility]) alprazolam 0.5 mg tabs ATHE NA ([facility]) Trazodone Hydrochloride 50 MG Oral Tablet POLO ([facility]) topiramate 100 mg tabs ATHE NA ([facility]) tizanidine hydrochloride 4 mg tabs POLO ([facility]) tizanidine 4 MG Oral Tablet POLO ([facility]) Ranitidine 150 MG Oral Tablet POLO ([facility]) Prednisone 20 MG Oral Tablet POLO ([facility]) paroxetine hcl 30 mg tabs A THENA ([facility]) Ranitidine 150 MG Oral Tablet PLOO ([facility]) Ranitidine 150 MG Oral Tablet POLO ([facility]) alprazolam 0.5 mg tabs ATHE NA ([facility]) Trazodone Hydrochloride 50 MG Oral Tablet POLO ([facility]) topiramate 100 mg tabs ATHE NA ([facility]) tizanidine hydrochloride 4 mg tabs POLO ([facility]) tizanidine 4 MG Oral Tablet POLO ([facility]) Ranitidine 150 MG Oral Tablet POLO ([facility]) Prednisone 20 MG Oral Tablet POLO ([facility]) paroxetine hcl 30 mg tabs A THENA ([facility]) pantoprazole sodium 20 mg tbec POLO ([facility]) omeprazole 20 mg cpdr ATHEN A ([facility]) Nortriptyline 25 MG Oral Capsule POLO ([facility]) methylprednisolone dose pack 4 mg tbpk POLO ([facility]) lidocaine hcl jelly 2 % gel POLO ([facility]) Lidocaine Hydrochloride 0.02 MG/MG Topical Gel POLO ([facility]) ipratropium/ tiff albuter ATH MIREYA ([facility]) Acetaminophen 325 MG / Hydrocodone Bitartrate 5 MG Oral Tablet POLO ([facility]) hydroco/apap tab 5-325mg ATH MIREYA ([facility]) gabapentin 400 mg caps ATHE NA ([facility]) gabapentin 300 mg caps ATHE NA ([facility]) famotidine 40 mg tabs ATHEN A ([facility]) ezetimibe 10 mg tabs POLO ([facility]) doxycycline monohydrate 100 mg caps POLO ([facility]) clopidogrel 75 mg tabs ATHE NA ([facility]) Carisoprodol 350 MG Oral Tablet POLO ([facility]) carisoprodol 350 mg tabs AT JHONATAN ([facility]) Trazodone Hydrochloride 50 MG Oral Tablet POLO ([facility]) topiramate 100 mg tabs ATHE NA ([facility]) tizanidine hydrochloride 4 mg tabs POLO ([facility]) tizanidine 4 MG Oral Tablet POLO ([facility]) Ranitidine 150 MG Oral Tablet POLO ([facility]) Prednisone 20 MG Oral Tablet POLO ([facility]) paroxetine hcl 30 mg tabs A THENA ([facility]) pantoprazole sodium 20 mg tbec POLO ([facility]) omeprazole 20 mg cpdr ATHEN A ([facility]) Nortriptyline 25 MG Oral Capsule POLO ([facility]) methylprednisolone dose pack 4 mg tbpk POLO ([facility]) lidocaine hcl jelly 2 % gel POLO ([facility]) Lidocaine Hydrochloride 0.02 MG/MG Topical Gel POLO ([facility]) ipratropium/ tiff albuter ATH MIREYA ([facility]) Ranitidine 150 MG Oral Tablet POLO ([facility]) gabapentin 300 MG Oral Capsule POLO ([facility]) gabapentin 100 MG Oral Capsule POLO ([facility]) Baclofen 10 MG Oral Tablet A THENA ([facility]) hydroco/apap tab 5-325mg ATH MIREYA ([facility]) gabapentin 400 mg caps ATHE NA ([facility]) gabapentin 300 mg caps ATHE NA ([facility]) famotidine 40 mg tabs ATHEN A ([facility]) ezetimibe 10 mg tabs POLO ([facility]) doxycycline monohydrate 100 mg caps POLO ([facility]) clopidogrel 75 mg tabs ATHE NA ([facility]) Carisoprodol 350 MG Oral Tablet POLO ([facility]) carisoprodol 350 mg tabs AT JHONATAN ([facility]) atorvastatin calcium 80 mg tabs POLO ([facility]) alprazolam 0.5 mg tabs ATHE NA ([facility]) Ranitidine 150 MG Oral Tablet POLO ([facility]) Ranitidine 150 MG Oral Tablet POLO ([facility]) Prednisone 20 MG Oral Tablet POLO ([facility]) methylprednisolone 4 mg tablets in a dose pack POLO ([facility]) gabapentin 300 MG Oral Capsule POLO ([facility]) gabapentin 100 MG Oral Capsule POLO ([facility]) Doxycycline Monohydrate 100 MG Oral Capsule POLO ([facility]) Baclofen 10 MG Oral Tablet A THENA ([facility]) fluticasone furoate 0.2 MG/ACTUAT Dry Powder Inhaler POLO ([facility]) umeclidinium 0.0625 MG/ACTUAT / vilanterol 0.025 MG/ACTUAT D ry Powder Inhaler POLO ([facility]) Ranitidine 150 MG Oral Tablet POLO ([facility]) Prednisone 20 MG Oral Tablet POLO ([facility]) methylprednisolone 4 mg tablets in a dose pack POLO ([facility]) gabapentin 300 MG Oral Capsule POLO ([facility]) gabapentin 100 MG Oral Capsule POLO ([facility]) pantoprazole sodium 20 mg tbec POLO ([facility]) omeprazole 20 mg cpdr ATHEN A ([facility]) Nortriptyline 25 MG Oral Capsule POLO ([facility]) methylprednisolone dose pack 4 mg tbpk POLO ([facility]) lidocaine hcl jelly 2 % gel POLO ([facility]) Lidocaine Hydrochloride 0.02 MG/MG Topical Gel POLO ([facility]) ipratropium/ tiff albuter ATH MIREYA ([facility]) Acetaminophen 325 MG / Hydrocodone Bitartrate 5 MG Oral Tablet POLO ([facility]) Ranitidine 150 MG Oral Tablet POLO ([facility]) gabapentin 300 MG Oral Capsule POLO ([facility]) gabapentin 100 MG Oral Capsule POLO ([facility]) Baclofen 10 MG Oral Tablet A THENA ([facility]) Doxycycline Monohydrate 100 MG Oral Capsule POLO ([facility]) Baclofen 10 MG Oral Tablet A THENA ([facility]) fluticasone furoate 0.2 MG/ACTUAT Dry Powder Inhaler POLO ([facility]) umeclidinium 0.0625 MG/ACTUAT / vilanterol 0.025 MG/ACTUAT D ry Powder Inhaler POLO ([facility])
--- OUTSIDE RECORDS SUMMARY | 2020-03-14 16:22 | CCD ---
Author Author [facility] Organization [facility] Address Unknown Phone Unavailable Care Team Providers Care Ceiling Installer Name Role Phone Jumalon, M Ely OFFICE 365 CONSULTANT Unavailable Unavailable Jumalon, M Ely OFFICE 365 CONSULTANT Unavailable Unavailable Jumalon, M Ely OFFICE 365 CONSULTANT Unavailable Unavailable Jumalon, M Ely OFFICE 365 CONSULTANT Unavailable Unavailable Jumalon, M Ely OFFICE 365 CONSULTANT Unavailable Unavailable Jumalon, M Ely OFFICE 365 CONSULTANT Unavailable Unavailable Jumalon, M Ely OFFICE 365 CONSULTANT Unavailable Unavailable Jumalon, M Ely OFFICE 365 CONSULTANT Unavailable Unavailable Jumalon, M Ely OFFICE 365 CONSULTANT Unavailable Unavailable Jumalon, M Ely OFFICE 365 CONSULTANT Unavailable Unavailable Jumalon, M Ely OFFICE 365 CONSULTANT Unavailable Unavailable Jumalon, M Ely OFFICE 365 CONSULTANT Unavailable Unavailable Jumalon, M Ely OFFICE 365 CONSULTANT Unavailable Unavailable Jumalon, M Ely OFFICE 365 CONSULTANT Unavailable Unavailable Jumalon, M Ely OFFICE 365 CONSULTANT Unavailable Unavailable Jumalon, M Ely OFFICE 365 CONSULTANT Unavailable Unavailable Jumalon, M Ely OFFICE 365 CONSULTANT Unavailable Unavailable Jumalon, M Ely OFFICE 365 CONSULTANT Unavailable Unavailable Jumalon, M Ely OFFICE 365 CONSULTANT Unavailable Unavailable Jumalon, M Ely OFFICE 365 CONSULTANT Unavailable Unavailable Jumalon, M Ely OFFICE 365 CONSULTANT Unavailable Unavailable Jumalon, M Ely OFFICE 365 CONSULTANT Unavailable Unavailable Jumalon, M Ely OFFICE 365 CONSULTANT Unavailable Unavailable Jumalon, M Ely OFFICE 365 CONSULTANT Unavailable Unavailable Jumalon, M Ely OFFICE 365 CONSULTANT Unavailable Unavailable Jumalon, M Ely OFFICE 365 CONSULTANT Unavailable Unavailable Jumalon, M Ely OFFICE 365 CONSULTANT Unavailable Unavailable Jumalon, M Ely OFFICE 365 CONSULTANT Unavailable Unavailable Jumalon, M Ely OFFICE 365 CONSULTANT Unavailable Unavailable Jumalon, M Ely OFFICE 365 CONSULTANT Unavailable Unavailable Jumalon, M Ely OFFICE 365 CONSULTANT Unavailable Unavailable Jumalon, M Ely OFFICE 365 CONSULTANT Unavailable Unavailable Jumalon, M Ely OFFICE 365 CONSULTANT Unavailable Unavailable Jumalon, M Ely OFFICE 365 CONSULTANT Unavailable Unavailable Jumalon, M Ely OFFICE 365 CONSULTANT Unavailable Unavailable Jumalon, M Ely OFFICE 365 CONSULTANT Unavailable Unavailable Jumalon, M Ely OFFICE 365 CONSULTANT Unavailable Unavailable Jumalon, M Ely OFFICE 365 CONSULTANT Unavailable Unavailable Jumalon, M Ely OFFICE 365 CONSULTANT Unavailable Unavailable Jumalon, M Ely OFFICE 365 CONSULTANT Unavailable Unavailable Jumalon, M Ely OFFICE 365 CONSULTANT Unavailable Unavailable Jumalon, M Ely OFFICE 365 CONSULTANT Unavailable Unavailable Jumalon, M Ely OFFICE 365 CONSULTANT Unavailable Unavailable Jumalon, M Ely OFFICE 365 CONSULTANT Unavailable Unavailable Jumalon, M Ely OFFICE 365 CONSULTANT Unavailable Unavailable Jumalon, M Ely OFFICE 365 CONSULTANT Unavailable Unavailable Jumalon, M Ely OFFICE 365 CONSULTANT Unavailable Unavailable Jumalon, M Ely OFFICE 365 CONSULTANT Unavailable Unavailable Jumalon, M Ely OFFICE 365 CONSULTANT Unavailable Unavailable Jumalon, M Ely OFFICE 365 CONSULTANT Unavailable Unavailable Jumalon, M Ely OFFICE 365 CONSULTANT Unavailable Unavailable Jumalon, M Ely OFFICE 365 CONSULTANT Unavailable Unavailable Jumalon, M Ely OFFICE 365 CONSULTANT Unavailable Unavailable Jumalon, M Ely OFFICE 365 CONSULTANT Unavailable Unavailable Jumalon, M Ely OFFICE 365 CONSULTANT Unavailable Unavailable COOK, B BRANDT ORCHID WORKER Unavailable Unavailable COOK, B BRANDT ORCHID WORKER Unavailable Unavailable COOK, B BRANDT ORCHID WORKER Unavailable Unavailable COOK, B BRANDT ORCHID WORKER Unavailable Unavailable COOK, B BRANDT ORCHID WORKER Unavailable Unavailable COOK, B BRANDT ORCHID WORKER Unavailable Unavailable COOK, B BRANDT ORCHID WORKER Unavailable Unavailable COOK, B BRANDT ORCHID WORKER Unavailable Unavailable COOK, B BRANDT ORCHID WORKER Unavailable Unavailable COOK, B BRANDT ORCHID WORKER Unavailable Unavailable COOK, B BRANDT ORCHID WORKER Unavailable Unavailable COOK, B BRANDT ORCHID WORKER Unavailable Unavailable COOK, B BRANDT ORCHID WORKER Unavailable Unavailable COOK, B BRANDT ORCHID WORKER Unavailable Unavailable COOK, B BRANDT ORCHID WORKER Unavailable Unavailable COOK, B BRANDT ORCHID WORKER Unavailable Unavailable COOK, B BRANDT ORCHID WORKER Unavailable Unavailable COOK, B BRANDT ORCHID WORKER Unavailable Unavailable COOK, B BRANDT ORCHID WORKER Unavailable Unavailable COOK, B BRANDT ORCHID WORKER Unavailable Unavailable COOK, B BRANDT ORCHID WORKER Unavailable Unavailable COOK, B BRANDT ORCHID WORKER Unavailable Unavailable COOK, B BRANDT ORCHID WORKER Unavailable Unavailable COOK, B BRANDT ORCHID WORKER Unavailable Unavailable COOK, B BRANDT ORCHID WORKER Unavailable Unavailable COOK, B BRANDT ORCHID WORKER Unavailable Unavailable COOK, B BRANDT ORCHID WORKER Unavailable Unavailable COOK, B BRANDT ORCHID WORKER Unavailable Unavailable COOK, B BRANDT ORCHID WORKER Unavailable Unavailable COOK, B BRANDT ORCHID WORKER Unavailable Unavailable COOK, B BRANDT ORCHID WORKER Unavailable Unavailable COOK, B BRANDT ORCHID WORKER Unavailable Unavailable COOK, B BRANDT ORCHID WORKER Unavailable Unavailable COOK, B BRANDT ORCHID WORKER Unavailable Unavailable COOK, B BRANDT ORCHID WORKER Unavailable Unavailable COOK, B BRANDT ORCHID WORKER Unavailable Unavailable COOK, B BRANDT ORCHID WORKER Unavailable Unavailable COOK, B BRANDT ORCHID WORKER Unavailable Unavailable COOK, B BRANDT ORCHID WORKER Unavailable Unavailable COOK, B BRANDT ORCHID WORKER Unavailable Unavailable COOK, B BRANDT ORCHID WORKER Unavailable Unavailable COOK, B BRANDT ORCHID WORKER Unavailable Unavailable COOK, B BRANDT ORCHID WORKER Unavailable Unavailable COOK, B BRANDT ORCHID WORKER Unavailable Unavailable COOK, B BRANDT ORCHID WORKER Unavailable Unavailable COOK, B BRANDT ORCHID WORKER Unavailable Unavailable COOK, B BRANDT ORCHID WORKER Unavailable Unavailable COOK, B BRANDT ORCHID WORKER Unavailable Unavailable COOK, B BRANDT ORCHID WORKER Unavailable Unavailable COOK, B BRANDT ORCHID WORKER Unavailable Unavailable COOK, B BRANDT ORCHID WORKER Unavailable Unavailable COOK, B BRANDT ORCHID WORKER Unavailable Unavailable COOK, B BRANDT ORCHID WORKER Unavailable Unavailable COOK, B BRANDT ORCHID WORKER Unavailable Unavailable COOK, B BRANDT ORCHID WORKER Unavailable Unavailable COOK, B BRANDT ORCHID WORKER Unavailable Unavailable COOK, B BRANDT ORCHID WORKER Unavailable Unavailable COOK, B BRANDT ORCHID WORKER Unavailable Unavailable COOK, B BRANDT ORCHID WORKER Unavailable Unavailable COOK, B BRANDT ORCHID WORKER Unavailable Unavailable COOK, B BRANDT ORCHID WORKER Unavailable Unavailable COOK, B BRANDT ORCHID WORKER Unavailable Unavailable COOK, B BRANDT ORCHID WORKER Unavailable Unavailable COOK, B BRANDT ORCHID WORKER Unavailable Unavailable Bolrashad, Jonathan Gordillo MD Unavailable [...] L Mir CAMARILLO Unavailable Unavailable Estrada, L iMr CAMARILLO Unavailable Unavailable Estrada, L Mir CAMARILLO [...] L Mir CAMARILLO Unavailable Unavailable Estrada, L Mri CAMARILLO Unavailable Unavailable Estrada, L Mir CAMARILLO [...] is protected by Article 27-F of the [facility] Public Health law. If you continue you may have access to information: Regarding HIV / AIDS; Provided by facilities licensed or operated by the [facility] Office of Mental Health; or Provided by the [facility] Office for People With Developmental Disabilities. If such information is present, then the following [facility] mandated warning applies: This information has [...] law may result in a fine or halfway sentence or both. A general authorization for the release of medical or other information is NOT sufficient authorization for further disc losure. Allergies and Adverse Reactions Type Description Substance Reaction Status Data Source(s ) Drug allergy Chantix varenicline depression Active eCW1 ([facility]) Wellbutrin Wellbutrin Wellbutrin Nightmares Active eCW1 ([facility]) Wellbutrin Wellbutrin Wellbutrin Nightmares Active eCW1 ([facility]) Wellbutrin Wellbutrin Wellbutrin Nightmares Active eCW1 ([facility]) Wellbutrin Wellbutrin Wellbutrin Nightmares Active eCW1 ([facility]) Wellbutrin Wellbutrin Wellbutrin Nightmares Active eCW1 ([facility]) Family History Family Member Name Family Member Gender Family Member Status Date o f Status Description Data Source(s) Unknown Unknown Problem MEDENT ([facility]) Unknown Male Problem MEDENT ([facility]) () - age 57 Encounters Encounter Providers Location Date Indications Data Source(s ) Ely Mcmullen, ORCHID WORKER: [address], [place] [address], Ph. Attender: Ely VILLALOBOS [facility] 03/14/2020 12:00:00 AM EST ATHE NA ([facility]) Outpatient Attender: Carmelita Jason MD [facility] 03/07/2020 08:00:00 AM EST MEDENT ([facility]) Unknown [address] [facility], [place] [address] 03/06/2020 12:00:00 AM EST [facility]1 [facility] Unknown [address] [facility] [facility] [address] 02/23/2020 12:00:00 AM EST eCW1 ([facility]) Duy Valente MD: [address], [place] [address], Ph. Attender: Duy Valente MD [facility] 02/20/2020 12:00:00 AM EST POLO ([facility]) Duy Valente MD: [address], [place] [address], Ph. Attender: Duy Valente MD [facility] 02/20/2020 12:00:00 AM EST POLO ([facility]) Office Visit Attender: CHASIDY Johnston/Estiven/Amandeep/Luan proctor 01/30/2020 01:00:00 PM EST MEDENT ([facility]) Ely Mcmullen, ORCHID WORKER: [address], [place] [address], Ph. Attender: Ely Mcmullen [facility] - [facility] 01/25/2020 12:00:00 AM EST ATHE NA ([facility]) Ely Mcmullen, ORCHID WORKER: [address], [place] [address], Ph. Attender: Ely Mcmullen [facility] - [facility] 01/25/2020 12:00:00 AM EST ATHE NA ([facility]) Ely Mcmullen, ORCHID WORKER: [address], [place] [address], Ph. Attender: Ely Mcumllen [facility] - [facility] 01/25/2020 12:00:00 AM EST ATHE NA ([facility]) Unknown [address] [facility], [facility] [address] 01/10/2020 12:00:00 AM EST eCW1 ([facility]) Duy Valente MD: [address], [place] [address], Ph. Attender: Duy Valente [place] - [facility] 01/05/2020 12:00:00 AM EST POLO ([facility]) Duy Valente MD: [address], [place] [address], Ph. Attender: Duy Valente [place] [facility] 01/05/2020 12:00:00 AM EST POLO ([facility]) Duy Valente MD: [address], [place] [address], Ph. Attender: Duy Valente [place] [facility] 01/05/2020 12:00:00 AM EST POLO ([facility]) Duy Valente MD: [address], [place] [address], Ph. Attender: Duy Valente [place] [facility] 01/05/2020 12:00:00 AM EST POLO ([facility]) Duy Valente MD: [address], [address], [place] [address], Ph. Attender: Duy Valente [place] [facility] 01/05/2020 12:00:00 AM EST POLO ([facility]) Unknown [address] [facility] [address] 01/02/2020 12:00:00 AM EST eCW1 ([facility]) Duy Valente MD: [address], [place] [address], Ph. [phone] Attender: Duy MULTANI - [facility] 12/30/2019 12:00:00 AM EST POLO ([facility]) Duy Valente MD: [address], [place] [address], Ph. [phone] Attender: Duy MULTANI - [facility] 12/30/2019 12:00:00 AM EST POLO ([facility]) Duy Valente MD: [address], [place] [address], Ph. [phone] Attender: Duy MULTANI - [facility] 12/30/2019 12:00:00 AM EST POLO ([facility]) Duy Valente MD: [address], [place] [address], Ph. [phone] Attender: Duy Valente [place] - [facility] 12/30/2019 12:00:00 AM EST POLO ([facility]) Duy Valente MD: [address], [place] [address], Ph. [phone] Attender: Duy Valente [place] [facility] 12/30/2019 12:00:00 AM EST POLO ([facility]) Duy Valente MD: [address], [place] [address], Ph. [phone] Attender: Duy Valente [place] [facility] 12/30/2019 12:00:00 AM EST POLO ([facility]) Ely Karen Mcmullen, ORCHID WORKER: [address], [facility] [place] [address], Ph. Attender: Ely Mcmullen [facility] 12/28/2019 12:00:00 AM EST ATHE NA ([facility]) Ely Mcmullen, ORCHID WORKER: [address], [place] [address], Ph. Attender: Ely Mcmullen [facility] - [facility] 12/28/2019 12:00:00 AM EST ATHE NA ([facility]) Ely Mcmullen, ORCHID WORKER: [address], [place] [address], Ph. Attender: Ely Mcmullen [facility] - [facility] 12/28/2019 12:00:00 AM EST ATHE NA ([facility]) Ely Mcmullen, ORCHID WORKER: [address], [place] [address], Ph. Attender: Ely Mcmullen [facility] - [facility] 12/28/2019 12:00:00 AM EST ATHE NA ([facility]) Ely Mcmullen, ORCHID WORKER: [address], [place] [address], Ph. Attender: Ely Mcmullen [facility] - [facility] 12/28/2019 12:00:00 AM EST ATHE NA ([facility]) Ely Mcmullen, ORCHID WORKER: [address], [place] [address], Ph. Attender: Ely Mcmullen [facility] - [facility] 12/28/2019 12:00:00 AM EST ATHE NA ([facility]) [place] [address] [address] 12/28/2019 12:00:00 AM EST eCW1 ([facility]) Ely Mcmullen, ORCHID WORKER: [address], [place] [address], Ph. Attender: Ely Mcmullen [facility] - [facility] 12/28/2019 12:00:00 AM EST ATHE NA ([facility]) Unknown [address] [facility] [address] 12/26/2019 12:00:00 AM EST eCW1 ([facility]) Duy Valente MD: [address], [facility] [place] [address], Ph. Attender: Duy Valente MD [place] - [facility] - [facility] 12/15/2019 12:00:00 AM EDT POLO ([facility]) Duy Valente MD: [address], [address], [place] [address], Ph. Attender: Duy Valente [place] - [facility] 12/15/2019 12:00:00 AM EDT POLO ([facility]) Duy Valenet MD: [address], [address], [place] [address], Ph. Attender: Duy MULTANI - [facility] 12/15/2019 12:00:00 AM EDT POLO ([facility]) Duy Valente MD: [address], [place] [address], Ph. Attender: Duy MULTANI - [facility] 12/15/2019 12:00:00 AM EDT POLO ([facility]) Duy Valente MD: [address], [address], [place] [address], Ph. Attender: Duy MULTANI - [facility] 12/15/2019 12:00:00 AM EDT POLO ([facility]) Duy Valente MD: [address], [place] [address], Ph. Attender: Duy MULTANI - [facility] 12/15/2019 12:00:00 AM EDT POLO ([facility]) Duy Valente MD: [address], [place] [address], Ph. Attender: Duy MULTANI - [facility] 12/15/2019 12:00:00 AM EDT POLO ([facility]) Duy Valente MD: [address], [address], [place] [address], Ph. Attender: Duy Valente [place] - [facility] 12/15/2019 12:00:00 AM EDT POLO ([facility]) Duy Valente MD: [address], [address], [place] [address], Ph. Attender: Duy Valente [place] - [facility] 12/14/2019 12:00:00 AM EDT POLO ([facility]) Duy Valente MD: [address], [address], [place] [address], Ph. Attender: Duy Valente [place] - [facility] 12/14/2019 12:00:00 AM EDT POLO ([facility]) Duy Valente MD: [address], [address], [place] [address], Ph. Attender: Duy MULTANI - [facility] 12/14/2019 12:00:00 AM EDT POLO ([facility]) Duy Valente MD: [address], [address], [place] [address], Ph. Attender: Duy MULTANI - [facility] 12/14/2019 12:00:00 AM EDT POLO ([facility]) Duy Valente MD: [address], [address], [place] [address], Ph. Attender: Duy Valente [place] - [facility] 12/14/2019 12:00:00 AM EDT POLO ([facility]) Duy Valente MD: [address], [address], [place] [address], Ph. Attender: Duy Valente [place] - [facility] 12/14/2019 12:00:00 AM EDT POLO ([facility]) Duy Valente MD: [address], [address], [place] [address], Ph. Attender: Duy MULTANI - [facility] - [facility] 12/14/2019 12:00:00 AM EDT POLO ([facility]) Duy Valente MD: [address], [place] [address], Ph. Attender: Duy MULTANI - [facility] 12/14/2019 12:00:00 AM EDT POLO ([facility]) Duy Valente MD: [address], [place] [address], Ph. Attender: Duy MULTANI - [facility] 12/14/2019 12:00:00 AM EDT POLO ([facility]) Outpatient [address] [facility] [address] 12/13/2019 12:00:00 AM EDT eC ([facility]) Duy Valente MD: [address], [place] [address], Ph. [phone] Attender: Duy Valente [place] - [facility] 12/09/2019 12:00:00 AM EDT POLO ([facility]) Duy Valente MD: [address], [place] [address], Ph. [phone] Attender: Duy MULTANI - [facility] 12/09/2019 12:00:00 AM EDT POLO ([facility]) Duy Valente MD: [address], [address], [place] [address], Ph. [phone] Attender: Duy Valente [place] - [facility] - [facility] 12/09/2019 12:00:00 AM EDT POLO ([facility]) Duy Valente MD: [address], [address], [place] [address], Ph. [phone] Attender: Duy Valente [place] - [facility] - [facility] 12/09/2019 12:00:00 AM EDT POLO ([facility]) Duy Valente MD: [address], [address], [place] [address], Ph. [phone] Attender: Duy MULTANI - [facility] 12/09/2019 12:00:00 AM EDT POLO ([facility]) Duy Valente MD: [address], [address], [place] [address], Ph. [phone] Attender: Duy MULTANI - [facility] - [facility] 12/09/2019 12:00:00 AM EDT POLO ([facility]) Duy Valente MD: [address], [address], [place] [address], Ph. [phone] Attender: Duy MULTANI - [facility] - [facility] 12/09/2019 12:00:00 AM EDT POLO ([facility]) Duy Valente MD: [address], [address], [place] [address], Ph. [phone] Attender: Duy MULTANI - [facility] 12/09/2019 12:00:00 AM EDT POLO ([facility]) Duy Valente MD: [address], [address], [place] [address], Ph. [phone] Attender: Duy Valente [place] - [facility] 12/09/2019 12:00:00 AM EDT POLO ([facility]) Duy Vlaente MD: [address], [address], [place] [address], Ph. [phone] Attender: Duy Valente [place] - [facility] 12/09/2019 12:00:00 AM EDT POLO ([facility]) Ely Mcmullen, ORCHID WORKER: [address], [place] [address], Ph. Attender: Ely Mcmullen [facility] 11/22/2019 12:00:00 AM EDT ATHRachael NA ([facility]) Ely Mcmullen, ORCHID WORKER: [address], [place] [address], Ph. Attender: Ely Mcmullen [facility] - [facility] 11/22/2019 12:00:00 AM EDT ATHRachael ERWIN ([facility]) Ely Mcmullen, ORCHID WORKER: [address], [place] [address], Ph. Attender: Ely Mcmullen [facility] - [facility] 11/22/2019 12:00:00 AM EDT ATHRachael NA ([facility] [facility]) Ely Mcmullen, ORCHID WORKER: [address], [place] [address], Ph. Attender: Ely Mcmullen [facility] - [facility] 11/22/2019 12:00:00 AM EDT ATHE YAIMA ([facility]) Ely Mcmullen, ORCHID WORKER: [address], [address], [place] [address], Ph. Attender: Ely Mcmullen [facility] - [facility] 11/22/2019 12:00:00 AM EDT ATHE NA ([facility]) Ely Mcmullen, ORCHID WORKER: [address], [address], [place] [address], Ph. Attender: Ely Mcmullen [facility] - [facility] 11/22/2019 12:00:00 AM EDT ATHE NA ([facility]) Ely Mcmullen, ORCHID WORKER: [address], [place] [address], Ph. Attender: Elyrachael Goinssara [facility] - [facility] 11/22/2019 12:00:00 AM EDT ATHE NA ([facility]) Ely Mcmullen, ORCHID WORKER: [address], [address], [place] [address], Ph. Attender: Ely Mcmullen [facility] - [facility] 11/22/2019 12:00:00 AM EDT ATHE NA ([facility]) Ely Mcmullen, ORCHID WORKER: [address], [address], [place] [address], Ph. Attender: Ely Mcmullen [facility] - [facility] 11/22/2019 12:00:00 AM EDT ATHE NA ([facility]) Ely Mcmullen, ORCHID WORKER: [address], [address], [place] [address], Ph. Attender: Ely Mcmullen [facility] - [facility] 11/22/2019 12:00:00 AM EDT ATHE YAIMA ([facility]) Ely Mcmullen, ORCHID WORKER: [address], [place] [address], Ph. Attender: Ely Mcmullen [facility] - [facility] 11/22/2019 12:00:00 AM EDT ATHRachael NA ([facility]) Unknown [address] [facility] [address] 11/21/2019 12:00:00 AM EDT eC ([facility]) Duy Valente MD: [address], [facility] [place] [address], Ph. Attender: Duy Valente [place] - [facility] 10/18/2019 12:00:00 AM EDT POLO ([facility]) Duy Valente MD: [address], [place] [address], Ph. Attender: Duy Valente [place] - [facility] 10/18/2019 12:00:00 AM EDT POLO ([facility]) Duy Valente MD: [address]85 [address], [place] [address], Ph. Attender: Duy MULTANI - [facility] 10/18/2019 12:00:00 AM EDT POLO ([facility]) Duy Valente MD: [address]791 [address], [place] [address], Ph. Attender: Duy Valente [place] - [facility] 10/18/2019 12:00:00 AM EDT POLO ([facility]) Duy Valente MD: [address], [address], [place] [address], Ph. Attender: Duy Valente [place] - [facility] 10/18/2019 12:00:00 AM EDT POLO ([facility]) Duy Valente MD: [address]68 [address], [address], [place] [address], Ph. Attender: Duy Valente [place] - [facility] 10/18/2019 12:00:00 AM EDT POLO ([facility]) Duy Valente MD: [address]66 [address], [address], [place] [address], Ph. Attender: Duy Valente [place] - [facility] 10/18/2019 12:00:00 AM EDT POLO ([facility]) Duy Valente MD: [address]652 [address], [address], [place] [address], Ph. Attender: Duy Valente [place] - [facility] 10/18/2019 12:00:00 AM EDT POLO ([facility]) Duy Valente MD: [address]805 [address], [address], [place] [address], Ph. Attender: Duy Valente [place] - [facility] 10/18/2019 12:00:00 AM EDT POLO ([facility]) Duy Valente MD: [address]53 [address], [address], [place] [address], Ph. Attender: Duy Valente [place] - [facility] 10/18/2019 12:00:00 AM EDT POLO ([facility]) Duy Valente MD: [address]5949 [address], [address], [place] [address], Ph. Attender: Duy Valente [place] [facility] 10/18/2019 12:00:00 AM EDT POLO ([facility]) Duy Valente MD: [address]12 [address], [address], [place] [address], Ph. Attender: Duy Valente [place] - [facility] 10/18/2019 12:00:00 AM EDT POLO ([facility]) Ely Mcmullen, ORCHID WORKER: [address], [address], [place] [address], Ph. Attender: Ely Mcmullen [facility] - [facility] 10/06/2019 12:00:00 AM EDT ATHE NA ([facility]) Ely Mcmullen, ORCHID WORKER: [address], [address], [place] [address], Ph. Attender: Ely Mcmullen [facility] - [facility] 10/06/2019 12:00:00 AM EDT ATHRachael NA ([facility]) Ely Mcmullen, ORCHID WORKER: [address], [address], [place] [address], Ph. Attender: Ely Mcmullen [facility] - [facility] 10/06/2019 12:00:00 AM EDT ATHE NA ([facility]) Ely Mcmullen, ORCHID WORKER: [address], [address], [place] [address], Ph. Attender: Ely Mcmullen [facility] - [facility] 10/06/2019 12:00:00 AM EDT ATHE NA ([facility]) Ely Mcmullen, ORCHID WORKER: [address], [place] [address], Ph. Attender: Ely Mcmullen [facility] - [facility] 10/06/2019 12:00:00 AM EDT ATHE NA ([facility]) Ely Mcmullen, ORCHID WORKER: [address], [place] [address], Ph. Attender: Ely Mcmullen [facility] - [facility] 10/06/2019 12:00:00 AM EDT ATHE NA ([facility]) Ely Mcmullen, ORCHID WORKER: [address], [place] [address], Ph. Attender: Ely Mcmullen [facility] - [facility] 10/06/2019 12:00:00 AM EDT ATHE NA ([facility]) Ely Mcmullen, ORCHID WORKER: [address], [place] [address], Ph. Attender: Ely Mcmullen [facility] - [facility] 10/06/2019 12:00:00 AM EDT ATHE NA ([facility]) Ely Mcmullen, ORCHID WORKER: [address], [place] [address], Ph. Attender: Ely Mcmullen [facility] - [facility] 10/06/2019 12:00:00 AM EDT ATHE NA ([facility]) Ely Mcmullen, ORCHID WORKER: [address], [place] [address], Ph. Attender: Ely Mcmullen [facility] - [facility] 10/06/2019 12:00:00 AM EDT ATHE NA ([facility]) Ely Mcmullen, ORCHID WORKER: [address], [place] [address], Ph. Attender: Ely Mcmullen [facility] - [facility] 10/06/2019 12:00:00 AM EDT ATHE NA ([facility]) Ely Mcmullen, ORCHID WORKER: [address], [address], [place] [address], Ph. Attender: Ely Mcmullen [facility] - [facility] 10/06/2019 12:00:00 AM EDT ATHE NA ([facility]) Ely Mcmullen, ORCHID WORKER: [address], [place] [address], Ph. Attender: Ely Mcmullen [facility] - [facility] 10/06/2019 12:00:00 AM EDT ATHE NA ([facility]) Office Visit Attender: CHASIDY Johnston/Estiven/Amandeep/Rein dl 09/28/2019 02:00:00 PM EDT MEDJOSHUA ([facility]) Duy Valente MD: [address]47 [address], [address], [place] [address], Ph. Attender: Duy Valente [place] - [facility] 09/20/2019 12:00:00 AM EDT POLO ([facility]) Duy Valente MD: [address]64 [address], [address], [place] [address], Ph. Attender: Duy Valente [place] - [facility] 09/20/2019 12:00:00 AM EDT POLO ([facility]) Duy Valente MD: [address]851 [address], [address], [place] [address], Ph. Attender: Duy MULTANI - [facility] 09/20/2019 12:00:00 AM EDT POLO ([facility]) Duy Valente MD: 54853 [address], [address], [place] [address], Ph. Attender: Duy MULTANI - [facility] 09/20/2019 12:00:00 AM EDT POLO ([facility]) Duy Valente MD: [address]10 [address], [address], [place] [address], Ph. Attender: Duy MULTANI - [facility] 09/20/2019 12:00:00 AM EDT POLO ([facility]) Duy Valente MD: [address]7770 [address], [address], [place] [address], Ph. Attender: Duy MULTANI - [facility] 09/20/2019 12:00:00 AM EDT POLO ([facility]) Duy Valente MD: 95852 [address], [address], [place] [address], Ph. Attender: Duy MULTANI - [facility] 09/20/2019 12:00:00 AM EDT POLO ([facility]) Duy Valente MD: 58937 [address], [address], [place] [address], Ph. Attender: Duy MULTANI - [facility] 09/20/2019 12:00:00 AM EDT POLO ([facility]) Duy Valente MD: 39328 [address], [address], [place] [address], Ph. Attender: Duy MULTANI - [facility] 09/20/2019 12:00:00 AM EDT POLO ([facility]) Duy Valente MD: 60750 [address], [address], [place] [address], Ph. Attender: Duy MULTANI - [facility] 09/20/2019 12:00:00 AM EDT POLO ([facility]) Duy Valente MD: [address]602 [address], [address], [place] [address], Ph. Attender: Duy MULTANI - [facility] 09/20/2019 12:00:00 AM EDT POLO ([facility]) Duy Valente MD: 28390 [address], [address], [place] [address], Ph. Attender: Duy MULTANI - [facility] 09/20/2019 12:00:00 AM EDT POLO ([facility]) Duy Valente MD: [address]171 [address], [address], [place] [address], Ph. Attender: Duy MULTANI - [facility] 09/20/2019 12:00:00 AM EDT POLO ([facility]) Duy Valente MD: 28487 [address], [address], [place] [address], Ph. Attender: Duy MULTANI - [facility] 09/20/2019 12:00:00 AM EDT POLO ([facility]) Ely Mcmullen, ORCHID WORKER: [address], [place] [address], Ph. Attender: Ely Mcmullen [facility] - [facility] 09/09/2019 12:00:00 AM EDT ATHE NA ([facility]) Ely Mcmullen, ORCHID WORKER: [address], [address], [place] [address], Ph. Attender: Ely Jeanekoffisara [facility] - [facility] 09/09/2019 12:00:00 AM EDT ATHE NA ([facility]) Ely Mcmullen, ORCHID WORKER: [address]69 [address], [place] [address], Ph. Attender: Ely Goinssara [facility] - [facility] 09/09/2019 12:00:00 AM EDT ATHE NA ([facility]) Ely Mcmullen, ORCHID WORKER: [address], [address], [place] [address], Ph. Attender: Ely Jeanekoffisara [facility] - [facility] 09/09/2019 12:00:00 AM EDT ATHE NA ([facility]) Ely Mcmullen, ORCHID WORKER: [address]45 [address], [address], [place] [address], Ph. Attender: Ely Jeanekoffisara [facility] - [facility] 09/09/2019 12:00:00 AM EDT ATHE NA ([facility]) Ely Jones Jeanestef, ORCHID WORKER: [address], [address], [place] [address], Ph. Attender: Ely Mcmullen [facility] - [facility] 09/09/2019 12:00:00 AM EDT ATHE NA ([facility]) Ely Mcmullen, ORCHID WORKER: [address], [place] [address], Ph. Attender: Ely Mcmullen [facility] 09/09/2019 12:00:00 AM EDT ATHE NA ([facility]) Ely Mcmullen, ORCHID WORKER: [address], [place] [address], Ph. Attender: Ely Mcmullen [facility] - [facility] 09/09/2019 12:00:00 AM EDT ATHE NA ([facility]) Ely Mcmullen, ORCHID WORKER: [address], [place] [address], Ph. Attender: Ely Mcmullen [facility] - [facility] 09/09/2019 12:00:00 AM EDT ATHE NA ([facility]) Ely Mcmullen, ORCHID WORKER: [address], [place] [address], Ph. Attender: Ely Mcmullen [facility] - [facility] 09/09/2019 12:00:00 AM EDT ATHE NA ([facility]) Ely Mcmullen, ORCHID WORKER: [address], [place] [address], Ph. Attender: Ely Mcmullen [facility] - [facility] 09/09/2019 12:00:00 AM EDT ATHE NA ([facility]) Ely Mcmullen, ORCHID WORKER: [address]34 [address], [address], [place] [address], Ph. Attender: Ely Mcmullen [facility] - [facility] 09/09/2019 12:00:00 AM EDT ATHE NA ([facility]) Ely Mcmullen, ORCHID WORKER: [address]86 [address], [address], [place] [address], Ph. Attender: Ely Mcmullen [facility] - [facility] 09/09/2019 12:00:00 AM EDT ATHE NA ([facility]) Ely Mcmullen, ORCHID WORKER: [address]27 [address], [address], [place] [address], Ph. Attender: Ely Mcmullen [facility] - [facility] 09/09/2019 12:00:00 AM EDT ATHE NA ([facility]) Ely Mcmullen, ORCHID WORKER: [address], [address], [place] [address], Ph. Attender: Ely Mcmullen [facility] - [facility] 09/09/2019 12:00:00 AM EDT ATHE NA ([facility]) Duy Valente MD: 38933 [address], [address], [place] [address], Ph. Attender: Duy Valente [place] - [facility] 09/01/2019 12:00:00 AM EDT POLO ([facility]) Duy Valente MD: 21424 [address], [address], [place] [address], Ph. Attender: Duy Valente MD [place] - [facility] 09/01/2019 12:00:00 AM EDT POLO ([facility]) Duy Valente MD: 31223 [address], [address], [place] [address], Ph. Attender: Duy Valente MD [place] - [facility] 09/01/2019 12:00:00 AM EDT POLO ([facility]) Duy Valente MD: 43650 [address], [address], [place] [address], Ph. Attender: Duy Valente MD [place] - [facility] 09/01/2019 12:00:00 AM EDT POLO ([facility]) Duy Valente MD: 62023 [address], [address], [place] [address], Ph. Attender: Duy Valente MD [place] - [facility] 09/01/2019 12:00:00 AM EDT POLO ([facility]) Duy Valente MD: 18950 [address], [address], [place] [address], Ph. Attender: Duy MULTANI - [facility] 09/01/2019 12:00:00 AM EDT POLO ([facility]) Duy Valente MD: 55795 [address], [address], [place] [address], Ph. Attender: Duy Valente MD [place] - [facility] 09/01/2019 12:00:00 AM EDT POLO ([facility]) Duy Valente MD: 91554 [address], [address], [place] [address], Ph. Attender: Duy MULTANI - [facility] 09/01/2019 12:00:00 AM EDT POLO ([facility]) Duy Valente MD: 24219 [address], [address], [place] [address], Ph. Attender: Duy MULTANI - [facility] 09/01/2019 12:00:00 AM EDT POLO ([facility]) Duy Valente MD: 78357 [address], [address], [place] [address], Ph. Attender: Duy MULTANI - [facility] 09/01/2019 12:00:00 AM EDT POLO ([facility]) Duy Valente MD: 74517 [address], [address], [place] [address], Ph. Attender: Duy MULTANI - [facility] 09/01/2019 12:00:00 AM EDT POLO ([facility]) Duy Valente MD: 53010 [address], [address], [place] [address], Ph. Attender: Duy MULTANI - [facility] 09/01/2019 12:00:00 AM EDT POLO ([facility]) Duy Valente MD: 51755 [address], [address], [place] [address], Ph. Attender: Duy MULTANI - [facility] 09/01/2019 12:00:00 AM EDT POLO ([facility]) Duy Valente MD: 43755 [address], [address], [place] [address], Ph. Attender: Duy MULTANI - [facility] 09/01/2019 12:00:00 AM EDT POLO ([facility]) Duy Valente MD: 53978 [address], [address], [place] [address], Ph. Attender: Duy MULTANI - [facility] 09/01/2019 12:00:00 AM EDT POLO ([facility]) Duy Valente MD: 97076 [address], [address], [place] [address], Ph. Attender: Duy MULTANI - [facility] 09/01/2019 12:00:00 AM EDT POLO ([facility]) Outpatient Attender: Mir Estrada MD Physical Therapy 08/31/2019 0 1:00:00 PM EDT MEDENT ([facility]) Duy Valente MD: 32374 [address], [address], [place] [address], Ph. [phone] Attender: Duy MUTLANI - [facility] 08/29/2019 12:00:00 AM EDT POLO ([facility]) Duy Valente MD: 57379 [address], [address], [place] [address], Ph. [phone] Attender: Duy MULTANI - [facility] 08/29/2019 12:00:00 AM EDT POLO ([facility]) Duy Valente MD: 01714 [address], [address], [place] [address], Ph. [phone] Attender: Duy MULTANI - [facility] 08/29/2019 12:00:00 AM EDT POLO ([facility]) Duy Valente MD: 43725 [address], [address], [place] [address], Ph. [phone] Attender: Duy Valente MD [place] - [facility] 08/29/2019 12:00:00 AM EDT POLO ([facility]) Duy Valente MD: 27745 [address], [address], [place] [address], Ph. [phone] Attender: Duy Valente MD [place] - [facility] 08/29/2019 12:00:00 AM EDT POLO ([facility]) Duy Valente MD: 28573 [address], [address], [place] [address], Ph. [phone] Attender: Duy MULTANI - [facility] 08/29/2019 12:00:00 AM EDT POLO ([facility]) Duy Valente MD: 94079 [address], [address], [place] [address], Ph. [phone] Attender: Duy MULTANI - [facility] 08/29/2019 12:00:00 AM EDT POLO ([facility]) Duy Valente MD: 13924 [address], [address], [place] [address], Ph. [phone] Attender: Duy MULTANI - [facility] 08/29/2019 12:00:00 AM EDT POLO ([facility]) Duy Valente MD: 39668 [address], [address], [place] [address], Ph. [phone] Attender: Duy Valente MD [place] - [facility] 08/29/2019 12:00:00 AM EDT POLO ([facility]) Duy Valente MD: 03120 [address], [address], [place] [address], Ph. [phone] Attender: Duy MULTANI - [facility] 08/29/2019 12:00:00 AM EDT POLO ([facility]) Duy Valente MD: 89864 [address], [address], [place] [address], Ph. [phone] Attender: Duy Valente MD [place] - [facility] 08/29/2019 12:00:00 AM EDT POLO ([facility]) Duy Valente MD: 38625 [address], [address], [place] [address], Ph. [phone] Attender: D[place] Valente [place] - [facility] [facility] 08/29/2019 12:00:00 AM EDT POLO ([facility]) Duy Valente MD: [address], [address], [place] [address], Ph. [phone] Attender: Duy Valente [place] [facility] 08/29/2019 12:00:00 AM EDT POLO ([facility]) Duy Valente MD: [address], [address], [place] [address], Ph. [phone] Attender: Duy Valente [place] [facility] 08/29/2019 12:00:00 AM EDT POLO ([facility]) Duy Valente MD: [address], [address], [place] [address], Ph. [phone] Attender: Duy Valente [place] [facility] 08/29/2019 12:00:00 AM EDT POLO ([facility]) Duy Valente MD: [address], [address], [place] [address], Ph. [phone] Attender: Duy Valente [place] - [facility] 08/29/2019 12:00:00 AM EDT POLO ([facility]) Duy Valente MD: [address], [address], [place] [address], Ph. [phone] Attender: Duy Valente MD [place] - [facility] 08/29/2019 12:00:00 AM EDT POLO ([facility]) Ely Mcmullen, ORCHID WORKER: [address], [place] [address], Ph. Attender: Ely Mcmullen [facility] - [facility] 08/16/2019 12:00:00 AM EDT ATHE NA ([facility]) Ely Mcmullen, ORCHID WORKER: [address], [place] [address], Ph. Attender: Ely Mcmullen [facility] 08/16/2019 12:00:00 AM EDT ATHE NA ([facility]) Ely Mcmullen, ORCHID WORKER: [address], [place] [address], Ph. Attender: Ely Mcmullen [facility] - [facility] 08/16/2019 12:00:00 AM EDT ATHE NA ([facility]) Ely Mcmullen, ORCHID WORKER: [address], [place] [address], Ph. Attender: Ely Mcmullen [facility] - [facility] 08/16/2019 12:00:00 AM EDT ATHE NA ([facility]) Ely Mcmullen, ORCHID WORKER: [address], [place] [address], Ph. Attender: Ely Mcmullen [facility] - [facility] 08/16/2019 12:00:00 AM EDT ATHE NA ([facility]) Ely Mcmullen, ORCHID WORKER: [address], [address], [place] [address], Ph. Attender: Ely Mcmullen [facility] - [facility] 08/16/2019 12:00:00 AM EDT ATHE NA ([facility]) Ely Mcmullen, ORCHID WORKER: [address], [address], [place] [address], Ph. Attender: Ely Jeanekoffisara [facility] - [facility] 08/16/2019 12:00:00 AM EDT ATHE NA ([facility]) Ely Mcmullen, ORCHID WORKER: [address], [place] [address], Ph. Attender: Ely Jeanekoffisara [facility] - [facility] 08/16/2019 12:00:00 AM EDT ATHE NA ([facility]) Ely Mcmullen, ORCHID WORKER: [address], [address], [place] [address], Ph. Attender: Ely Jeanekoffisara [facility] - [facility] 08/16/2019 12:00:00 AM EDT ATHE NA ([facility]) Ely Mcmullen, ORCHID WORKER: [address], [address], [place] [address], Ph. Attender: Ely Benedict [facility] - [facility] 08/16/2019 12:00:00 AM EDT ATHE NA ([facility]) Ely Mcmullen, ORCHID WORKER: [address], [address], [place] [address], Ph. Attender: Ely Mcmullen [facility] - [facility] 08/16/2019 12:00:00 AM EDT ATHE NA ([facility]) Ely Mcmullen, ORCHID WORKER: [address], [facility] [place] [address], Ph. Attender: Ely Mcmullen [facility] - [facility] 08/16/2019 12:00:00 AM EDT ATHE NA ([facility]) Ely Mcmullen, ORCHID WORKER: [address], [place] [address], Ph. Attender: Ely Mcmullen [facility] - [facility] 08/16/2019 12:00:00 AM EDT ATHE NA ([facility]) Ely Mcmullen, ORCHID WORKER: [address], [place] [address], Ph. Attender: Eyl Mcmullen [facility] - [facility] 08/16/2019 12:00:00 AM EDT ATHE NA ([facility]) Ely Mcmullen, ORCHID WORKER: [address], [facility] [place] [address], Ph. Attender: Ely Mcmullen [facility] - [facility] 08/16/2019 12:00:00 AM EDT ATHE NA ([facility]) Ely Mcmullen, ORCHID WORKER: [address], [facility] [place] [address], Ph. Attender: Ely Mcmullen [facility] - [facility] 08/16/2019 12:00:00 AM EDT ATHE NA ([facility]) Ely Jones Benedict, ORCHID WORKER: [address], [address], [place] [address], Ph. Attender: Ely Mcmullen [facility] - [facility] 08/16/2019 12:00:00 AM EDT ATHE NA ([facility]) Ely Mcmullen, ORCHID WORKER: [address], [address], [place] [address], Ph. Attender: Ely Mcmullen [facility] - [facility] 08/16/2019 12:00:00 AM EDT ATHE NA ([facility]) Ely Mcmullen, ORCHID WORKER: [address], [place] [address], Ph. Attender: Ely Mcmullen [facility] - [facility] 07/15/2019 12:00:00 AM EDT ATHE NA ([facility]) Ely Mcmullen, ORCHID WORKER: [address], [address], [place] [address], Ph. Attender: Ely Mcmullen [facility] - [facility] 07/15/2019 12:00:00 AM EDT ATHE NA ([facility]) Ely Mcmullen, ORCHID WORKER: [address], [address], [place] [address], Ph. Attender: Ely Mcmullen [facility] - [facility] 07/15/2019 12:00:00 AM EDT ATHE NA ([facility]) Ely Mcmullen, ORCHID WORKER: [address], [address], [place] [address], Ph. Attender: Ely Jeanekoffisara [facility] - [facility] 07/15/2019 12:00:00 AM EDT ATHE NA ([facility]) Ely Mcmullen, ORCHID WORKER: [address], [place] [address], Ph. Attender: Ely Mcmullen [facility] - [facility] 07/15/2019 12:00:00 AM EDT ATHE NA ([facility]) Ely Mcmullen, ORCHID WORKER: [address], [address], [place] [address], Ph. Attender: Ely Mcmullen [facility] 07/15/2019 12:00:00 AM EDT ATHE NA ([facility]) Ely Mcmullen, ORCHID WORKER: [address], [place] [address], Ph. Attender: Ely Mcmullen [facility] 07/15/2019 12:00:00 AM EDT ATHE NA ([facility]) Ely Mcmullen, ORCHID WORKER: [address], [place] [address], Ph. Attender: Ely Mcmullen [facility] 07/15/2019 12:00:00 AM EDT ATHE NA ([facility]) Ely Mcmullen, ORCHID WORKER: [address], [address], [place] [address], Ph. Attender: Ely Mcmullen [facility] 07/15/2019 12:00:00 AM EDT ATHE NA ([facility]) Ely Mcmullen, ORCHID WORKER: [address], [address], [place] [address], Ph. Attender: Ely Mcmullen [facility] - [facility] 07/15/2019 12:00:00 AM EDT ATHE NA ([facility]) Ely Mcmullen, ORCHID WORKER: [address], [place] [address], Ph. Attender: Ely Mcmullen [facility] - [facility] 07/15/2019 12:00:00 AM EDT ATHE NA ([facility]) Ely Mcmullen, ORCHID WORKER: [address], [address], [place] [address], Ph. Attender: Ely Mcmullen [facility] - [facility] 07/15/2019 12:00:00 AM EDT ATHE NA ([facility]) Ely Mcmullen, ORCHID WORKER: [address], [address], [place] [address], Ph. Attender: Ely Mcmullen [facility] - [facility] 07/15/2019 12:00:00 AM EDT ATHE NA ([facility]) Ely Aumiriam Chingstef, ORCHID WORKER: [address], [place] [address], Ph. Attender: Ely Mcmullen [facility] - [facility] 07/15/2019 12:00:00 AM EDT ATHE NA ([facility]) Ely Mcmullen, ORCHID WORKER: [address], [place] [address], Ph. Attender: Ely Goinssara [facility] - [facility] 07/15/2019 12:00:00 AM EDT ATHE NA ([facility]) Ely Mcmullen, ORCHID WORKER: [address], [place] [address], Ph. Attender: Ely Mcmullen [facility] - [facility] 07/15/2019 12:00:00 AM EDT ATHRachael ERWIN ([facility]) Ely Mcmullen, ORCHID WORKER: [address], [place] [address], Ph. Attender: Ely Mcmullen [facility] - [facility] 07/15/2019 12:00:00 AM EDT ROBERT ERWIN ([facility]) Ely Mcmullen, ORCHID WORKER: [address], [place] [address], Ph. Attender: Ely Mcmullen [facility] - [facility] 07/15/2019 12:00:00 AM EDT ATHRachael ERWIN ([facility]) Ely Mcmullen, ORCHID WORKER: [address], [place] [address], Ph. Attender: Ely Mcmullen [facility] 07/15/2019 12:00:00 AM EDT ROBERT ERWIN ([facility]) [place] [address] [facility] [address] 07/14/2019 12:00:00 AM EDT eCW1 ([facility]) Outpatient Attender: BRANDT COLLIER NP Physical Therapy 07/13/2019 0 9:15:00 AM EDT MEDENT ([facility] ) [facility] [address] [facility] [address] 07/12/2019 12:00:00 AM EDT eCW1 ([facility]) Ely Mcmullen, ORCHID WORKER: [address], [place] [address], Ph. Attender: Ely Mcmullen [facility] 07/08/2019 12:00:00 AM EDT ATHE NA ([facility]) Ely Mcmullen, ORCHID WORKER: [address], [place] [address], Ph. Attender: Ely Mcmullen [facility] - [facility] 07/08/2019 12:00:00 AM EDT ATHE NA ([facility]) Ely Mcmullen, ORCHID WORKER: [address], [place] [address], Ph. Attender: Ely Mcmullen [facility] 07/08/2019 12:00:00 AM EDT ATHE NA ([facility]) Ely Mcmullen, ORCHID WORKER: [address], [place] [address], Ph. Attender: Ely Mcmullen [facility] 07/08/2019 12:00:00 AM EDT ATHE NA ([facility]) Ely Mcmullen, ORCHID WORKER: [address], [address], [place] [address], Ph. Attender: Ely Mcmullen [facility] 07/08/2019 12:00:00 AM EDT ATHE NA ([facility]) Ely Mcmullen, ORCHID WORKER: [address], [place] [address], Ph. Attender: Ely Mcmullen [facility] 07/08/2019 12:00:00 AM EDT ATHE NA ([facility]) Ely Mcmullen, ORCHID WORKER: [address], [place] [address], Ph. Attender: Ely Mcmullen [facility] - [facility] 07/08/2019 12:00:00 AM EDT ATHE NA ([facility]) Ely Mcmullen, ORCHID WORKER: [address], [address], [place] [address], Ph. Attender: Ely Mcmullen [facility] - [facility] 07/08/2019 12:00:00 AM EDT ATHE NA ([facility]) Ely Mcmullen, ORCHID WORKER: [address], [place] [address], Ph. Attender: Ely Mcmullen [facility] - [facility] 07/08/2019 12:00:00 AM EDT ATHE NA ([facility]) Ely Mcmullen, ORCHID WORKER: [address], [place] [address], Ph. Attender: Ely Mcmullen [facility] - [facility] 07/08/2019 12:00:00 AM EDT ATHE NA ([facility]) Ely Mcmullen, ORCHID WORKER: [address], [place] [address], Ph. Attender: Ely Mcmullen [facility] - [facility] 07/08/2019 12:00:00 AM EDT ATHE NA ([facility]) Ely Mcmullen, ORCHID WORKER: [address], [place] [address], Ph. Attender: Ely Mcmullen [facility] - [facility] 07/08/2019 12:00:00 AM EDT ATHE NA ([facility]) Ely Mcmullen, ORCHID WORKER: [address], [place] [address], Ph. Attender: Ely Mcmullen [facility] - [facility] 07/08/2019 12:00:00 AM EDT ATHE NA ([facility]) Ely Mcmullen, ORCHID WORKER: [address], [place] [address], Ph. Attender: Ely Mcmullen [facility] - [facility] 07/08/2019 12:00:00 AM EDT ATHE NA ([facility]) Ely Mcmullen, ORCHID WORKER: [address], [place] [address], Ph. Attender: Ely Mcmullen [facility] - [facility] 07/08/2019 12:00:00 AM EDT ATHE NA ([facility]) Ely Mcmullen, ORCHID WORKER: [address], [place] [address], Ph. Attender: Ely Mcmullen [facility] - [facility] 07/08/2019 12:00:00 AM EDT ATHE NA ([facility]) Ely Mcmullen, ORCHID WORKER: [address], [place] [address], Ph. Attender: Ely Mcmullen [facility] - [facility] 07/08/2019 12:00:00 AM EDT ATHE NA ([facility]) Ely Karen Mcmullen, ORCHID WORKER: [address], [address], [place] [address], Ph. Attender: Ely Mcmullen [facility] - [facility] 07/08/2019 12:00:00 AM EDT ATHRachael NA ([facility]) Ely Mcmullen, ORCHID WORKER: [address]96 [address], [address], [place] [address], Ph. Attender: Ely Mcmullen [facility] - [facility] 07/08/2019 12:00:00 AM EDT ATHRachael NA ([facility]) Ely Mcmullen, ORCHID WORKER: [address], [place] [address], Ph. Attender: Ely Mcmullen [facility] 07/08/2019 12:00:00 AM EDT ATHE NA ([facility]) [facility] [address] [address] 07/05/2019 12:00:00 AM EDT eCW1 ([facility]) Outpatient Attender: CHASIDY Johnston/Estiven/Amandeep/Luan proctor 06/28/2019 01:00:00 PM EDT MEDENT ([facility] [address] [facility] [address] 06/13/2019 12:00:00 AM EDT eCW1 ([facility]) [facility] [address] [place] [address] [place] [address] 06/13/2019 12:00:00 AM EDT eCW1 ([facility]) [facility] [address] [facility] [address] 06/02/2019 12:00:00 AM EDT eCW1 ([facility]) [facility] [address] [place] [address], [place] [address] 05/19/2019 12:00:00 AM EDT eCW1 ([facility] Outpatient Attender: CHASIDY Johnston/Estiven/Amandeep/Luan proctor 05/17/2019 09:00:00 AM EDT MEDENT ([facility]) [facility] [address] [place] [address] 05/06/2019 12:00:00 AM EDT eCW1 ([facility]) Outpatient Attender: BRANDT COLLIER NP Physical Therapy 04/22/2019 1 0:15:00 AM EST MEDENT ([facility]) [facility] [address] [facility] [place] [address] 04/19/2019 12:00:00 AM EST [facility] [address] [facility] [place] [address] 04/19/2019 12:00:00 AM EST [facility]CW1 [facility]) [facility] [address] [facility] [facility] [address] 04/18/2019 12:00:00 AM EST [facility]CW1 [facility]) Outpatient Referrer: Ely Mcmullen OFFICE 365 CONSULTANT 04/11/2019 03:24:0 0 PM EST [facility] [address] [facility] [facility] [address] 04/11/2019 12:00:00 AM EST eCW1 ([facility]) [facility] Rule [address] [facility] [address] 04/05/2019 12:00:00 AM EST eCW1 ([facility]) [facility] [address] [facility] [address] 03/31/2019 12:00:00 AM EST [facility]CW1 [facility]) [facility] [address] [facility] [address] 03/31/2019 12:00:00 AM EST eCW1 [facility] [address] [facility] [address] 03/30/2019 12:00:00 AM EST eCW1 ([facility]) Duy Valente MD: [address], [place] [address], Ph. Attender: Duy Valente MD [place] - [facility] 03/29/2019 12:00:00 AM EST POLO ([facility]) Duy Valente MD: [address]96 [address], [address], [place] [address], Ph. Attender: Duy Valente [place] - [facility] 03/29/2019 12:00:00 AM EST POLO ([facility]) Duy Valente MD: [address], [place] [address], Ph. Attender: Duy Valente [place] [facility] 03/29/2019 12:00:00 AM EST POLO ([facility]) Duy Valente MD: [address]59 [address], [place] [address], Ph. Attender: Duy Valente [place] [facility] 03/29/2019 12:00:00 AM EST POLO ([facility]) Duy Valente MD: [address]9 [address], [place] [address], Ph. Attender: Duy Valente [place] [facility] 03/29/2019 12:00:00 AM EST POLO ([facility]) Duy Valente MD: [address]07 [address], [place] [address], Ph. Attender: Duy Valente [place] [facility] 03/29/2019 12:00:00 AM EST POLO ([facility]) Duy Valente MD: [address]39 [address], [address], [place] [address], Ph. Attender: Duy MULTANI - [facility] 03/29/2019 12:00:00 AM EST POLO ([facility]) Duy Valente MD: 64727 [address], [address], [place] [address], Ph. Attender: Duy MULTANI - [facility] 03/29/2019 12:00:00 AM EST POLO ([facility]) Duy Valente MD: [address]446 [address], [place] [address], Ph. Attender: Duy MULTANI - [facility] 03/29/2019 12:00:00 AM EST POLO ([facility]) Duy Valente MD: [address]6514 [address], [address], [place] [address], Ph. Attender: Duy MULTANI - [facility] 03/29/2019 12:00:00 AM EST POLO ([facility]) Duy Valente MD: 49453 [address], [address], [place] [address], Ph. Attender: Duy MULTANI - [facility] 03/29/2019 12:00:00 AM EST POLO ([facility]) Duy Valente MD: [address], [address], [place] [address], Ph. Attender: Duy Valente MD [place] - [facility] 03/29/2019 12:00:00 AM EST POLO ([facility]) Duy Valente MD: [address], [place] [address], Ph. Attender: Duy MULTANI - [facility] 03/29/2019 12:00:00 AM EST POLO ([facility]) Duy Vaelnte MD: [address], [address], [place] [address], Ph. Attender: Duy MULTANI - [facility] 03/29/2019 12:00:00 AM EST POLO ([facility]) Duy Valente MD: [address], [place] [address], Ph. Attender: Duy MULTANI - [facility] 03/29/2019 12:00:00 AM EST POLO ([facility]) Duy Valente MD: [address], [place] [address], Ph. Attender: Duy MULTANI - [facility] 03/29/2019 12:00:00 AM EST POLO ([facility]) Duy Valente MD: [address], [address], [place] [address], Ph. Attender: Duy MULTANI - [facility] 03/29/2019 12:00:00 AM EST POLO ([facility]) Duy Valente MD: [address], [address], [place] [address], Ph. Attender: Duy MULTANI - [facility] 03/29/2019 12:00:00 AM EST POLO ([facility]) Duy Valente MD: [address], [place] [address], Ph. Attender: Duy Valente [place] - [facility] 03/29/2019 12:00:00 AM EST POLO ([facility]) Duy Valente MD: [address]93 [address], [address], [place] [address], Ph. Attender: Duy Valente [place] [facility] 03/29/2019 12:00:00 AM EST POLO ([facility]) Duy Valente MD: [address], [facility] [place] [place] [address], Ph. Attender: Duy Valente [place] [facility] 03/29/2019 12:00:00 AM EST POLO ([facility]) Ely Mcmullen, ORCHID WORKER: [address], [place] [address], Ph. Attender: Ely Mcmullen [facility] - [facility] 03/17/2019 12:00:00 AM EST ATHE NA ([facility]) Ely Mcmullen, ORCHID WORKER: [address], [place] [address], Ph. Attender: Ely Mcmullen [facility] - [facility] 03/17/2019 12:00:00 AM EST ATHE NA ([facility]) Ely Mcmullen, ORCHID WORKER: [address], [place] [address], Ph. Attender: Ely Mcmullen [facility] - [facility] 03/17/2019 12:00:00 AM EST ATHE NA ([facility]) Ely Mcmullen, ORCHID WORKER: [address], [place] [address], Ph. Attender: Ely Mcmullen [facility] - [facility] 03/17/2019 12:00:00 AM EST ATHE NA ([facility]) Ely Mcmullen, ORCHID WORKER: [address], [address], [place] [address], Ph. Attender: Ely Mcmullen [facility] 03/17/2019 12:00:00 AM EST ATHE NA ([facility]) Ely Mcmullen, ORCHID WORKER: [address], [place] [address], Ph. Attender: Ely Mcmullen [facility] 03/17/2019 12:00:00 AM EST ATHE NA ([facility]) Ely Mcmullen, ORCHID WORKER: [address], [address], [place] [address], Ph. Attender: Ely Mcmullen [facility] 03/17/2019 12:00:00 AM EST ATHE NA ([facility]) Ely Mcmullen, ORCHID WORKER: [address], [address], [place] [address], Ph. Attender: Ely Mcmullen [facility] 03/17/2019 12:00:00 AM EST ATHE NA ([facility]) Ely Mcmullen, ORCHID WORKER: [address], [address], [place] [address], Ph. Attender: Ely Mcmullen [facility] - [facility] 03/17/2019 12:00:00 AM EST ATHE NA ([facility]) Ely Mcmullen, ORCHID WORKER: [address], [place] [address], Ph. Attender: Ely Mcmullen [facility] - [facility] 03/17/2019 12:00:00 AM EST ATHE NA ([facility]) Ely Mcmullen, ORCHID WORKER: [address], [place] [address], Ph. Attender: Ely Mcmullen [facility] - [facility] 03/17/2019 12:00:00 AM EST ATHE NA ([facility]) Ely Mcmullen, ORCHID WORKER: [address], [place] [address], Ph. Attender: Ely Mcmullen [facility] - [facility] 03/17/2019 12:00:00 AM EST ATHE NA ([facility]) Ely Mcmullen, ORCHID WORKER: [address], [place] [address], Ph. Attender: Ely Mcmullen [facility] - [facility] 03/17/2019 12:00:00 AM EST ATHE NA ([facility]) Ely Mcmullen, ORCHID WORKER: [address], [place] [address], Ph. Attender: Ely Mcmullen [facility] - [facility] 03/17/2019 12:00:00 AM EST ATHE NA ([facility]) Ely Mcmullen, ORCHID WORKER: [address], [address], [place] [address], Ph. Attender: Ely Mcmullen [facility] - [facility] 03/17/2019 12:00:00 AM EST ATHE NA ([facility]) Ely Mcmullen, ORCHID WORKER: [address], [address], [place] [address], Ph. Attender: Ely Mcmullen [facility] - [facility] 03/17/2019 12:00:00 AM EST ATHE NA ([facility]) Ely Mcmullen, ORCHID WORKER: [address], [place] [address], Ph. Attender: Ely Mcmullen [facility] - [facility] 03/17/2019 12:00:00 AM EST ATHE NA ([facility]) Ely Mcmullen, ORCHID WORKER: [address], [address], [place] [address], Ph. Attender: Ely Mcmullen [facility] - [facility] 03/17/2019 12:00:00 AM EST ATHE NA ([facility]) Ely Mcmullen, ORCHID WORKER: [address], [address], [place] [address], Ph. Attender: Ely Mcmullen [facility] - [facility] 03/17/2019 12:00:00 AM EST ATHE NA ([facility]) Ely Mcmullen, ORCHID WORKER: [address], [place] [address], Ph. Attender: Ely Briseidasara [facility] - [facility] 03/17/2019 12:00:00 AM EST ATHE NA ([facility]) Ely Mcmullen, ORCHID WORKER: [address], [place] [address], Ph. Attender: Ely Mcmullen [facility] - [facility] 03/17/2019 12:00:00 AM EST ATHE NA ([facility]) Ely Mcmullen, ORCHID WORKER: [address], [place] [address], Ph. Attender: Ely Mcmullen [facility] 03/17/2019 12:00:00 AM EST ATHE NA ([facility]) [address] [place] [address] 02/28/2019 12:00:00 AM EST eCW1 ([facility]) Outpatient Attender: CHASIDY Johnston/Estiven/Amandeep/Rein dl 02/22/2019 08:30:00 AM EST MEDENT ([facility]) [address] [address] 02/21/2019 12:00:00 AM EST eCW1 ([facility]) [address] [place] [address] 02/08/2019 12:00:00 AM EST eCW1 ([facility]) Duy Valente MD: [address], [place] [address], Ph. Attender: Duy Valente MD [facility] 01/31/2019 12:00:00 AM EST POLO ([facility]) Duy Valente MD: [address], [place] [address], Ph. Attender: Duy Valente [place] - [facility] 01/31/2019 12:00:00 AM EST POLO ([facility]) Duy Valenet MD: [address], [address], [place] [address], Ph. Attender: Duy MULTANI - [facility] 01/31/2019 12:00:00 AM EST POLO ([facility]) Duy Valente MD: [address]1939 [address], [address], [place] [address], Ph. Attender: Duy MULTANI - [facility] 01/31/2019 12:00:00 AM EST POLO ([facility]) Duy Valente MD: [address]178 [address], [address], [place] [address], Ph. Attender: Duy MULTANI - [facility] 01/31/2019 12:00:00 AM EST POLO ([facility]) Duy Valente MD: [address]707 [address], [address], [place] [address], Ph. Attender: Duy MULTANI - [facility] 01/31/2019 12:00:00 AM EST POLO ([facility]) Duy Valente MD: [address]23 [address], [address], [place] [address], Ph. Attender: Duy MULTANI - [facility] 01/31/2019 12:00:00 AM EST POLO ([facility]) Duy Valente MD: [address]83 [address], [address], [place] [address], Ph. Attender: Duy Valente [place] - [facility] 01/31/2019 12:00:00 AM EST POLO ([facility]) Duy Valente MD: 28354 [address], [address], [place] [address], Ph. Attender: Duy MULTANI - [facility] 01/31/2019 12:00:00 AM EST POLO ([facility]) Duy Valente MD: 53402 [address], [address], [place] [address], Ph. Attender: Duy MULTANI - [facility] 01/31/2019 12:00:00 AM EST POLO ([facility]) Duy Valente MD: [address]017 [address], [place] [address], Ph. Attender: Duy MULTANI - [facility] 01/31/2019 12:00:00 AM EST POLO ([facility]) Duy Valente MD: [address]374 [address], [address], [place] [address], Ph. Attender: Duy MULTANI - [facility] 01/31/2019 12:00:00 AM EST POLO ([facility]) Duy Valente MD: [address]683 [address], [address], [place] [address], Ph. Attender: Duy MULTANI - [facility] 01/31/2019 12:00:00 AM EST POLO ([facility]) Duy Valente MD: [address]6068 [address], [address], [place] [address], Ph. Attender: Duy MULTANI - [facility] 01/31/2019 12:00:00 AM EST POLO ([facility]) Duy Valente MD: [address]503 [address], [address], [place] [address], Ph. Attender: Duy MULTANI - [facility] 01/31/2019 12:00:00 AM EST POLO ([facility]) Duy Valente MD: 44509 [address], [address], [place] [address], Ph. Attender: Duy MULTANI - [facility] 01/31/2019 12:00:00 AM EST POLO ([facility]) Duy Valente MD: [address]67 [address], [place] [address], Ph. Attender: Duy MULTANI - [facility] 01/31/2019 12:00:00 AM EST POLO ([facility]) Duy Valente MD: 70282 [address], [address], [place] [address], Ph. Attender: Duy MULTANI - [facility] 01/31/2019 12:00:00 AM EST POLO ([facility]) Duy Valente MD: [address]49 [address], [place] [address], Ph. Attender: Duy MULTANI - [facility] 01/31/2019 12:00:00 AM EST POLO ([facility]) Duy Valente MD: 71952 [address], [address], [place] [address], Ph. Attender: Duy MULTANI - [facility] 01/31/2019 12:00:00 AM EST POLO ([facility]) Duy Valente MD: [address], [address] [place], [place] [address], Ph. Attender: Duy Valente MD [place] [facility] 01/31/2019 12:00:00 AM EST POLO ([facility]) Duy Valente MD: [address]36 [address], [address], [place], [place] [address], Ph. Attender: Duy Valente MD [place] - [facility] 01/31/2019 12:00:00 AM EST POLO ([facility]) Duy Valente MD: [address]17 [address], [facility] [place], [place] [address], Ph. Attender: Duy Valente MD [place] - [facility] 01/31/2019 12:00:00 AM EST POLO ([facility]) [facility] [address] [address] 01/27/2019 12:00:00 AM EST eCW1 ([facility]) [facility] [address] [address] 01/21/2019 12:00:00 AM EST eCW1 ([facility]) Immunizations Vaccine Date Status Description Data Source(s) INFLUENZA VIRUS VACCINE QUADRIVAL [id number](6 MOS AND UP)/PF 12/06/2019 12:00:00 AM EDT completed [facility] PNEUMOCOCCAL 23-VALENT POLYSACCHARIDE VACCINE 12/06/2019 12: 00:00 AM EDT completed [facility] pneumococcal polysaccharide PPV23 12/05/2019 07:24:00 AM EDT comple alyssa eCW1 ([facility]) pneumococcal polysaccharide PPV23 12/05/2019 07:24:00 AM EDT comple alyssa eCW1 ([facility]) pneumococcal polysaccharide PPV23 12/05/2019 07:24:00 AM EDT comple alyssa eCW1 ([facility]) pneumococcal polysaccharide PPV23 12/05/2019 07:24:00 AM EDT comple alyssa eCW1 ([facility]) pneumococcal polysaccharide PPV23 12/05/2019 07:24:00 AM EDT comple alyssa eCW1 ([facility]) pneumococcal polysaccharide PPV23 12/05/2019 07:24:00 AM EDT comple alyssa eCW1 ([facility]) pneumococcal polysaccharide PPV23 12/05/2019 07:24:00 AM EDT comple alyssa eCW1 ([facility]) IIV3. This is one of two codes replacing CVX 15, which is being retired. 12/05/2019 07:23:00 AM EDT completed eCW1 ([facility]) IIV3. This is one of two codes replacing CVX 15, which is being retired. 12/05/2019 07:23:00 AM EDT completed eCW1 ([facility]) IIV3. This is one of two codes replacing CVX 15, which is being retired. 12/05/2019 07:23:00 AM EDT completed eCW1 ([facility]) IIV3. This is one of two codes replacing CVX 15, which is being retired. 12/05/2019 07:23:00 AM EDT completed eCW1 ([facility]) IIV3. This is one of two codes replacing CVX 15, which is being retired. 12/05/2019 07:23:00 AM EDT completed eCW1 ([facility]) IIV3. This is one of two codes replacing CVX 15, which is being retired. 12/05/2019 07:23:00 AM EDT completed eCW1 ([facility]) IIV3. This is one of two codes replacing CVX 15, which is being retired. 12/05/2019 07:23:00 AM EDT completed eCW1 ([facility]) Medications Medication Brand Name Start Date Product [...] activ e Ciprofloxacin HCl 500 MG eCW1 ([facility]) Ciprofloxacin 500 MG Oral Tablet Ciprofloxacin HCl 500 MG Ciprofloxacin HCl 500 MG 12/29/2019 12:00:00 AM EST 1.0 {tablet} activ e Ciprofloxacin HCl 500 MG eCW1 ([facility]) Ciprofloxacin 500 MG Oral Tablet Ciprofloxacin HCl 500 MG Ciprofloxacin HCl 500 MG 12/29/2019 12:00:00 AM EST 1.0 {tablet} activ e Ciprofloxacin HCl 500 MG eCW1 ([facility]) 500 mg 12/29/2019 12:00:00 AM EST tablet 10 TAKE ONE TABLET BY MOUTH EVERY 12 HOURS FOR 5 DAYS TAKE ONE TABLET BY MOUTH EVERY 12 HOURS FOR 5 DAYS TIFF [facility] Ciprofloxacin 500 MG Oral Tablet Ciprofloxacin HCl 500 MG Ciprofloxacin HCl 500 MG 12/29/2019 12:00:00 AM EST 1.0 {tablet} activ e Ciprofloxacin HCl 500 MG eCW1 ([facility]) Ciprofloxacin 500 MG Oral Tablet Ciprofloxacin HCl 500 MG Ciprofloxacin HCl 500 MG 12/29/2019 12:00:00 AM EST 1.0 {tablet} activ e Ciprofloxacin HCl 500 MG eCW1 ([facility]) tizanidine 4 MG Oral Tablet TIZANIDINE HCL 12/28/2019 12:00:[address] tablet 120 TAKE ONE TABLET BY MOUTH EVERY 6 HOURS A S NEEDED TAKE ONE TABLET BY MOUTH EVERY 6 HOURS NEEDED SOLD: 12/30/2019 [facility] Sulfamethoxazole 800 MG / Trimethoprim 1 60 MG Oral Tablet [Bactrim] Bactrim DS 800-160 MG Bactrim DS 800-160 MG 12/13/2019 12:00:00 AM EDT 1.0 {table t} active Bactrim DS 800-160 MG eCW1 ( [facility]) Sulfamethoxazole 800 MG / Trimethoprim 1 60 MG Oral Tablet [Bactrim] Bactrim DS 800-160 MG Bactrim DS 800-160 MG 12/13/2019 12:00:00 AM EDT 1.0 {table t} active Bactrim DS 800-160 MG eCW1 ( [facility]) Sulfamethoxazole 800 MG / Trimethoprim 1 60 MG Oral Tablet [Bactrim] Bactrim DS 800-160 MG Bactrim DS 800-160 MG 12/13/2019 12:00:00 AM EDT 1.0 {table t} active Bactrim DS 800-160 MG eCW1 ( [facility]) Sulfamethoxazole 800 MG / Trimethoprim 1 60 MG Oral Tablet [Bactrim] Bactrim DS 800-160 MG Bactrim DS 800-160 MG 12/13/2019 12:00:00 AM EDT 1.0 {table t} active Bactrim DS 800-160 MG eCW1 ( [facility]) tizanidine 4 MG Oral Tablet Tizanidine HCl 4 MG Tizanidine H Cl 4 MG 12/13/2019 12:00:00 AM EDT 2.0 {tablets} active T izanidine HCl 4 MG eCW1 ([facility]) tizanidine 4 MG Oral Tablet Tizanidine HCl 4 MG Tizanidine H Cl 4 MG 12/13/2019 12:00:00 AM EDT 2.0 {tablets} active T izanidine HCl 4 MG eCW1 ([facility]) tizanidine 4 MG Oral Tablet TIZANIDINE HCL [...] active T izanidine HCl 4 MG eCW1 ([facility]) tizanidine 4 MG Oral Tablet Tizanidine HCl 4 MG Tizanidine H Cl 4 MG 12/13/2019 12:00:00 AM EDT 2.0 {tablets} active T izanidine HCl 4 MG eCW1 ([facility]) atorvastatin 80 MG Oral Tablet ATORVASTATIN CALCIUM 12/13/2019 1 2:00:00 AM EDT tablet 90 TAKE ONE TABLET BY MOUTH EVERY D AY TAKE ONE TABLET BY MOUTH EVERY DAY SOLD: 12/13/2019 [facility] tizanidine 4 MG Oral Tablet Tizanidine HCl 4 MG Tizanidine H Cl 4 MG 12/13/2019 12:00:00 AM EDT 2.0 {tablets} active T izanidine HCl 4 MG eCW1 ([facility]) Sulfamethoxazole 800 MG / Trimethoprim 1 60 MG Oral Tablet [Bactrim] Bactrim DS 800-160 MG Bactrim DS 800-160 MG 12/13/2019 12:00:00 AM EDT 1.0 {table t} active Bactrim DS 800-160 MG eCW1 ( [facility]) Sulfamethoxazole 800 MG / Trimethoprim 1 60 MG Oral Tablet [Bactrim] Bactrim DS 800-160 MG Bactrim DS 800-160 MG 12/13/2019 12:00:00 AM EDT 1.0 {table t} active Bactrim DS 800-160 MG eCW1 ( [facility]) tizanidine 4 MG Oral Tablet Tizanidine HCl 4 MG Tizanidine H Cl 4 MG 12/13/2019 12:00:00 AM EDT 2.0 {tablets} active T izanidine HCl 4 MG eCW1 ([facility]) tizanidine 4 MG Oral Tablet Tizanidine HCl 4 MG Tizanidine H Cl 4 MG 12/13/2019 12:00:00 AM EDT 2.0 {tablets} active T izanidine HCl 4 MG eCW1 ([facility]) Sulfamethoxazole 800 MG / Trimethoprim 160 MG Oral Tab let 800-160 mg SULFAMETHOXAZOLE/TRIMETHOPRIM 12/13/2019 12:00:00 AM EDT tablet 6 TAKE ONE TABLET BY MOUTH TWO TIMES A DAY FOR 3 DAYS TAKE ONE TABLET BY MOUTH TWO TIMES A DAY FOR 3 DAYS SOLD: 12/13/2019 [facility] Sulfamethoxazole 800 MG / Trimethoprim 1 60 MG Oral Tablet [Bactrim] Bactrim DS 800-160 MG Bactrim DS 800-160 MG 12/13/2019 12:00:00 AM EDT 1.0 {table t} active Bactrim DS 800-160 MG eCW1 ( [facility]) Paroxetine Hydrochloride 30 MG Oral Tablet PAROXETINE [...] PUFF BY MOUTH EVERY DAY SOLD: 10/08/2019 [facility] Cyclobenzaprine hydrochloride 10 MG Oral Tablet CYCLOBENZAPR INE HCL 09/09/2019 12:00:00 AM EDT tablet 30 TAKE ONE TABLET BY MOUTH AT BEDTIME MAXIMUM DAILY DOSE = ONE TABLET TAKE ONE TABLET BY MOUTH AT BEDTIME MAXI MUM DAILY DOSE = ONE TABLET SOLD: 09/15/2019 [facility] 5 % 08/16/2019 12:00:00 AM EDT adhesive patch,medicate d 30 APPLY ONE PATCH TOPICALLY EVERY DAY, MAY WEAR UP TO 12 HOURS APPLY ONE PATCH TOPICALLY EVERY DAY, MAY WEAR UP TO 12 HOURS SOLD: 08/19/2019 [facility] Alprazolam 0.5 MG Oral Tablet Alprazolam 0.5 MG 07/14/2019 12:00:00 AM EDT 1.0 {tablet_as_needed} active Alprazolam 0 .5 MG eCW1 ([facility]) 75 mg 07/14/2019 12:00:00 AM EDT tablet 90 TAKE ONE TABLET BY MOUTH EVERY DAY TAKE ONE TABLET BY MOUTH EVERY DAY SOLD: 11/08/2019 [facility] Alprazolam 0.5 MG Oral Tablet Alprazolam 0.5 MG 07/14/2019 12:00:00 AM EDT 1.0 {tablet_as_needed} active Alprazolam 0 .5 MG eCW1 ([facility]) Alprazolam 0.5 MG Oral Tablet Alprazolam 0.5 MG 07/14/2019 12:00:00 AM EDT 1.0 {tablet_as_needed} active Alprazolam 0 .5 MG eCW1 ([facility]) 400 mg 07/14/2019 12:00:00 AM EDT capsule 180 TAKE ONE CAPSULE BY MOUTH TWICE A DAY TAKE ONE CAPSULE BY MOUTH TWICE A DAY SOLD: 07/15/2019 [facility] Alprazolam 0.5 MG Oral Tablet ALPRAZOLAM 07/14/2019 [...] {tablet_as_needed} active Alprazolam 0 .5 MG eCW1 ([facility]) Alprazolam 0.5 MG Oral Tablet Alprazolam 0.5 MG 07/14/2019 12:00:00 AM EDT 1.0 {tablet_as_needed} active Alprazolam 0 .5 MG eCW1 ([facility]) 75 mg 07/14/2019 12:00:00 AM EDT tablet 90 TAKE ONE TABLET BY MOUTH EVERY DAY TAKE ONE TABLET BY MOUTH EVERY DAY SOLD: 07/15/2019 [facility] Alprazolam 0.5 MG Oral Tablet Alprazolam 0.5 MG 07/14/2019 12:00:00 AM EDT 1.0 {tablet_as_needed} active Alprazolam 0 .5 MG eCW1 ([facility]) 75 mg 07/14/2019 12:00:00 AM EDT tablet 90 TAKE ONE TABLET BY MOUTH EVERY DAY TAKE ONE TABLET BY MOUTH EVERY DAY SOLD: 02/25/2020 [facility] Alprazolam 0.5 MG Oral Tablet Alprazolam 0.5 MG 07/14/2019 12:00:00 AM EDT 1.0 {tablet_as_needed} active Alprazolam 0 .5 MG eCW1 ([facility]) 400 mg 07/14/2019 12:00:00 AM EDT capsule 180 TAKE ONE CAPSULE BY MOUTH TWICE A DAY TAKE ONE CAPSULE BY MOUTH TWICE A DAY SOLD: 01/15/2020 [facility] Alprazolam 0.5 MG Oral Tablet Alprazolam 0.5 MG 07/14/2019 12:00:00 AM EDT 1.0 {tablet_as_needed} active Alprazolam 0 .5 MG eCW1 ([facility]) Alprazolam 0.5 MG Oral Tablet Alprazolam 0.5 MG 07/14/2019 12:00:00 AM EDT 1.0 {tablet_as_needed} active Alprazolam 0 .5 MG eCW1 ([facility]) 350 mg 07/08/2019 12:00:00 AM EDT tablet [...] Medrol 04/27/2019 12:00:00 AM EDT completed MEDENT ([facility]) 4 mg 04/27/2019 12:00:00 AM EDT tablets,dose pack 21 USE DIRECTED USE DIRECTED SOLD: 04/27/2019 [facility] Lidocaine 50 MG/ML Topical Cream Lidocaine (Anorectal) 04/21 12:00:00 AM EST completed MEDENT ([facility]) Lidocaine Hydrochloride 0.02 MG/MG Topic al Gel Lidocaine HCl Urethral/Mucosal 2 % Lidocaine HCl Urethral/Mucosal 2 % 04/19/2019 12:00:00 AM EST active Lidocaine HCl Urethral/Mucosal 2 % eCW1 ([facility]) Lidocaine Hydrochloride 0.02 MG/MG Topic al Gel Lidocaine HCl Urethral/Mucosal 2 % Lidocaine HCl Urethral/Mucosal 2 % 04/19/2019 12:00:00 AM EST active Lidocaine HCl Urethral/Mucosal 2 % eCW1 ([facility]) Lidocaine Hydrochloride 0.02 MG/MG Topic al Gel Lidocaine HCl Urethral/Mucosal 2 % Lidocaine HCl Urethral/Mucosal 2 % 04/19/2019 12:00:00 AM EST active Lidocaine HCl Urethral/Mucosal 2 % eCW1 ([facility]) Lidocaine Hydrochloride 0.02 MG/MG Topic al Gel Lidocaine HCl Urethral/Mucosal 2 % Lidocaine HCl Urethral/Mucosal 2 % 04/19/2019 12:00:00 AM EST active Lidocaine HCl Urethral/Mucosal 2 % eCW1 ([facility]) Lidocaine Hydrochloride 0.02 MG/MG Topic al Gel Lidocaine HCl Urethral/Mucosal 2 % Lidocaine HCl Urethral/Mucosal 2 % 04/19/2019 12:00:00 AM EST active as directed eCW1 ([facility]) Lidocaine Hydrochloride 0.02 MG/MG Topic al Gel Lidocaine HCl Urethral/Mucosal 2 % Lidocaine HCl Urethral/Mucosal 2 % 04/19/2019 12:00:00 AM EST active Lidocaine HCl Urethral/Mucosal 2 % eCW1 ([facility]) Lidocaine Hydrochloride 0.02 MG/MG Topic al Gel Lidocaine HCl Urethral/Mucosal 2 % Lidocaine HCl Urethral/Mucosal 2 % 04/19/2019 12:00:00 AM EST active Lidocaine HCl Urethral/Mucosal 2 % eCW1 ([facility]) Lidocaine Hydrochloride 0.02 MG/MG Topic al Gel Lidocaine HCl Urethral/Mucosal 2 % Lidocaine HCl Urethral/Mucosal 2 % 04/19/2019 12:00:00 AM EST active Lidocaine HCl Urethral/Mucosal 2 % eCW1 ([facility]) Lidocaine Hydrochloride 0.02 MG/MG Topic al Gel Lidocaine HCl Urethral/Mucosal 2 % Lidocaine HCl Urethral/Mucosal 2 % 04/19/2019 12:00:00 AM EST active Lidocaine HCl Urethral/Mucosal 2 % eCW1 ([facility]) Lidocaine Hydrochloride 0.02 MG/MG Topic al Gel Lidocaine HCl Urethral/Mucosal 2 % Lidocaine HCl Urethral/Mucosal 2 % 04/19/2019 12:00:00 AM EST active Lidocaine HCl Urethral/Mucosal 2 % eCW1 ([facility]) pantoprazole 20 MG Delayed Release Oral Tablet Pantopr azole Sodium 20 MG Pantoprazole Sodium 20 MG 04/11/2019 12:00:00 AM EST 1.0 {tablet} active Pantoprazole Sodium 20 MG eCW1 ( [facility]) pantoprazole 20 MG Delayed Release Oral Tablet Pantopr azole Sodium 20 MG Pantoprazole Sodium 20 MG 04/11/2019 12:00:00 AM EST 1.0 {tablet} active Pantoprazole Sodium 20 MG eCW1 ( [facility]) pantoprazole 20 MG Delayed Release Oral Tablet Pantopr azole Sodium 20 MG Pantoprazole Sodium 20 MG 04/11/2019 12:00:00 AM EST 1.0 {tablet} active Pantoprazole Sodium 20 MG eCW1 ( [facility]) pantoprazole 20 MG Delayed Release Oral Tablet PANTOPRAZOLE SODIUM 04/11/2019 12:00:00 AM EST tablet,delayed release (DR/EC) 30 T MIGUE 1 TABLET BY MOUTH ONCE DAILY (STOP FAMOTIDINE AND OMEPRAZOLE) TAKE 1 TABLET BY MOUTH ONCE DAILY (STOP FAMOTIDINE AND OMEPRAZOLE) SOLD: 05/21/2019 [facility] pantoprazole 20 MG Delayed Release Oral Tablet Pantopr azole Sodium 20 MG Pantoprazole Sodium 20 MG 04/11/2019 12:00:00 AM EST 1.0 {tablet} active Pantoprazole Sodium 20 MG eCW1 ( [facility]) pantoprazole 20 MG Delayed Release Oral Tablet Pantopr azole Sodium 20 MG Pantoprazole Sodium 20 MG 04/11/2019 12:00:00 AM EST 1.0 {tablet} active Pantoprazole Sodium 20 MG eCW1 ( [facility]) pantoprazole 20 MG Delayed Release Oral Tablet Pantopr azole Sodium 20 MG Pantoprazole Sodium 20 MG 04/11/2019 12:00:00 AM EST active 1 tablet eCW1 ([facility]) pantoprazole 20 MG Delayed Release Oral Tablet Pantopr azole Sodium 20 MG Pantoprazole Sodium 20 MG 04/11/2019 12:00:00 AM EST 1.0 {tablet} active Pantoprazole Sodium 20 MG eCW1 ( [facility]) pantoprazole 20 MG Delayed Release Oral Tablet Pantopr azole Sodium 20 MG Pantoprazole Sodium 20 MG 04/11/2019 12:00:00 AM EST active 1 tablet eCW1 ([facility]) pantoprazole 20 MG Delayed Release Oral Tablet PANTOPRAZOLE SODIUM 04/11/2019 12:00:00 AM EST tablet,delayed release (DR/EC) 30 T MIGUE 1 TABLET BY MOUTH ONCE DAILY (STOP FAMOTIDINE AND OMEPRAZOLE) TAKE 1 TABLET BY MOUTH ONCE DAILY (STOP FAMOTIDINE AND OMEPRAZOLE) SOLD: 04/13/2019 [facility] pantoprazole 20 MG Delayed Release Oral Tablet Pantopr azole Sodium 20 MG Pantoprazole Sodium 20 MG 04/11/2019 12:00:00 AM EST 1.0 {tablet} active Pantoprazole Sodium 20 MG eCW1 ( [facility]) pantoprazole 20 MG Delayed Release Oral Tablet Pantopr azole Sodium 20 MG Pantoprazole Sodium 20 MG 04/11/2019 12:00:00 AM EST 1.0 {tablet} active Pantoprazole Sodium 20 MG eCW1 ( [facility]) pantoprazole 20 MG Delayed Release Oral Tablet Pantopr azole Sodium 20 MG Pantoprazole Sodium 20 MG 04/11/2019 12:00:00 AM EST 1.0 {tablet} active Pantoprazole Sodium 20 MG eCW1 ( [facility]) 20 mg 04/01/2019 12:00:00 AM EST capsule,delayed release (DR/EC) 30 TAKE ONE CAPSULE BY MOUTH EVERY DAY 30 MINUTES BEFORE MORNING MEAL NEEDED TAKE ONE CAPSULE BY MOUTH EVERY DAY 30 MINUTES BEFORE MORNING MEAL NEEDED SOLD: 04/01/2019 [facility] Doxycycline Monohydrate 100 MG Oral Capsule Doxycycline Cook hydrate 100 MG 03/31/2019 12:00:00 AM EST suspended 1 capsule eCW1 ([facility]) 100 mg 03/31/2019 12:00:00 AM EST capsule 10 TAKE ONE CAPSULE BY MOUTH EVERY 12 HOURS FOR 5 DAYS TAKE ONE CAPSULE BY MOUTH EVERY 12 HOURS FOR 5 DAYS SO LD: 03/31/2019 [facility] Prednisone 20 MG Oral Tablet PredniSONE 20 MG PredniSONE 20 MG 03/31/2019 12:00:00 AM EST suspended 2 tab lets eCW1 ([facility]) Prednisone 20 MG Oral Tablet PredniSONE 20 MG PredniSONE 20 MG 03/31/2019 12:00:00 AM EST active 2 tablet s eCW1 ([facility]) Omeprazole 20 MG Delayed Release Oral Tablet Omeprazole 20 M G 03/31/2019 12:00:00 AM EST active 1 capsul e 30 minutes before morning meal eCW1 ([facility]) 20 mg 03/31/2019 12:00:00 AM EST tablet 10 TAKE TWO TABLETS BY MOUTH EVERY DAY FOR 5 DAYS TAKE TWO TABLETS BY MOUTH EVERY DAY FOR 5 DAYS SOLD: 020 [facility] Doxycycline Monohydrate 100 MG Oral Capsule Doxycycline Cook hydrate 100 MG 03/31/2019 12:00:00 AM EST active 1 capsule eCW1 ([facility]) Doxycycline Monohydrate 100 MG Oral Capsule Doxycycline Cook hydrate 100 MG 03/31/2019 12:00:00 AM EST suspended 1 capsule eCW1 ([facility]) Prednisone 20 MG Oral Tablet PredniSONE 20 MG PredniSONE 20 MG 03/31/2019 12:00:00 AM EST suspended 2 tab lets eCW1 ([facility]) 400 mg 02/28/2019 12:00:00 AM EST capsule 60 TAKE ONE CAPSULE BY MOUTH TWICE A DAY TAKE ONE CAPSULE BY MOUTH TWICE A DAY SOLD: 03/31/2019 [facility] gabapentin 400 MG Oral Capsule Gabapentin 400 MG Gabapentin 400 MG 02/28/2019 12:00:00 AM EST active 1 capsul e eCW1 ([facility]) gabapentin 400 MG Oral Capsule Gabapentin 400 MG Gabapentin 400 MG 02/28/2019 12:00:00 AM EST 1.0 {capsule} active G abapentin 400 MG eCW1 ([facility]) gabapentin 400 MG Oral Capsule Gabapentin 400 MG Gabapentin 400 MG 02/28/2019 12:00:00 AM EST 1.0 {capsule} active G abapentin 400 MG eCW1 ([facility]) 400 mg 02/28/2019 12:00:00 AM EST capsule [...] {capsule} active G abapentin 400 MG eCW1 ([facility]) 400 mg 02/28/2019 12:00:00 AM EST capsule [...] {capsule} active G abapentin 400 MG eCW1 ([facility]) 4 mg 02/28/2019 12:00:00 AM EST tablet 60 TAKE ONE TABLET BY MOUTH TWICE A DAY NEEDED TAKE ONE TABLET BY MOUTH TWICE A DAY NEEDED SOLD: 03/02/2019 [facility] gabapentin 400 MG Oral Capsule Gabapentin 400 MG Gabapentin 400 MG 02/28/2019 12:00:00 AM EST 1.0 {capsule} active G abapentin 400 MG eCW1 ([facility]) gabapentin 400 MG Oral Capsule Gabapentin 400 MG Gabapentin 400 MG 02/28/2019 12:00:00 AM EST 1.0 {capsule} active G abapentin 400 MG eCW1 ([facility]) gabapentin 400 MG Oral Capsule Gabapentin 400 MG Gabapentin 400 MG 02/28/2019 12:00:00 AM EST active 1 capsul e eCW1 ([facility]) gabapentin 400 MG Oral Capsule Gabapentin 400 MG Gabapentin 400 MG 02/28/2019 12:00:00 AM EST active 1 capsul e eCW1 ([facility]) gabapentin 400 MG Oral Capsule Gabapentin 400 MG Gabapentin 400 MG 02/28/2019 12:00:00 AM EST active 1 capsul e eCW1 ([facility]) gabapentin 400 MG Oral Capsule Gabapentin 400 MG Gabapentin 400 MG 02/28/2019 12:00:00 AM EST 1.0 {capsule} active G abapentin 400 MG eCW1 ([facility]) gabapentin 400 MG Oral Capsule Gabapentin 400 MG Gabapentin 400 MG 02/28/2019 12:00:00 AM EST 1.0 {capsule} active G abapentin 400 MG eCW1 ([facility]) gabapentin 400 MG Oral Capsule Gabapentin 400 MG Gabapentin 400 MG 02/28/2019 12:00:00 AM EST 1.0 {capsule} active G abapentin 400 MG eCW1 ([facility]) 40 mg 02/24/2019 12:00:00 AM EST tablet 30 TAKE ONE TABLET BY MOUTH EVERY DAY AT BEDTIME TAKE ONE TABLET BY MOUTH EVERY DAY AT BEDTIME SOLD: 03/31/2019 [facility] 40 mg 02/24/2019 12:00:00 AM EST tablet 30 TAKE ONE TABLET BY MOUTH EVERY DAY AT BEDTIME TAKE ONE TABLET BY MOUTH EVERY DAY AT BEDTIME SOLD: 03/02/2019 [facility] 0.5 mg-3 mg(2.5 mg base)/3 mL 02/22/2019 12:00:0 0 AM EST solution for nebulization 360 USE 1 VIAL IN NEBULIZER FOUR GIOVANNA ES A DAY NEEDED USE 1 VIAL IN NEBULIZER FOUR TIMES A DAY NEEDED SOLD: 03/02/2019 [facility] Famotidine 40 MG Oral Tablet Famotidine 40 MG 02/21/2019 12:00:[address] active 1 tablet at bedtime eCW1 ([facility]) Famotidine 40 MG Oral Tablet Famotidine 40 MG 02/21/2019 12:00:[address] suspended 1 tablet at bedtime eCW1 ([facility]) Famotidine 40 MG Oral Tablet Famotidine 40 MG 02/21/2019 12:00:[address] suspended 1 tablet at bedtime eCW1 ([facility]) 25 mg 02/08/2019 12:00:00 AM EST capsule 90 TAKE ONE CAPSULE BY MOUTH EVERY DAY TAKE ONE CAPSULE BY MOUTH EVERY DAY SOLD: 02/10/2019 [facility] 150 mg 01/28/2019 12:00:00 AM EST tablet 180 TAKE ONE TABLET BY MOUTH TWICE A DAY TAKE ONE TABLET BY MOUTH TWICE A DAY SOLD: 01/28/2019 [facility] Prednisone 20 MG Oral Tablet PredniSONE 20 MG PredniSONE 20 MG 01/21/2019 12:00:00 AM EST suspended 2 tab lets eCW1 ([facility]) 20 mg 01/21/2019 12:00:00 AM EST tablet 10 TAKE TWO TABLETS BY MOUTH EVERY DAY FOR 5 DAYS TAKE TWO TABLETS BY MOUTH EVERY DAY FOR 5 DAYS SOLD: [facility] Prednisone 20 MG Oral Tablet PredniSONE 20 MG PredniSONE 20 MG 01/21/2019 12:00:00 AM EST active 2 tablet s eCW1 ([facility]) Doxycycline Monohydrate 100 MG Oral Capsule Doxycycline Cook hydrate 100 MG 01/21/2019 12:00:00 AM EST suspended 1 capsule eCW1 ([facility]) Doxycycline Monohydrate 100 MG Oral Capsule Doxycycline Cook hydrate 100 MG 01/21/2019 12:00:00 AM EST suspended 1 capsule eCW1 ([facility]) Doxycycline Monohydrate 100 MG Oral Capsule Doxycycline Cook hydrate 100 MG 01/21/2019 12:00:00 AM EST suspended 1 capsule eCW1 ([facility]) Prednisone 20 MG Oral Tablet PredniSONE 20 MG PredniSONE 20 MG 01/21/2019 12:00:00 AM EST suspended 2 tab lets eCW1 ([facility]) Doxycycline Monohydrate 100 MG Oral Capsule Doxycycline Cook hydrate 100 MG 01/21/2019 12:00:00 AM EST active 1 capsule eCW1 ([facility]) Doxycycline Monohydrate 100 MG Oral Capsule Doxycycline Cook hydrate 100 MG 01/21/2019 12:00:00 AM EST suspended 1 capsule eCW1 ([facility]) 100 mg 01/21/2019 12:00:00 AM EST capsule 14 TAKE ONE CAPSULE BY MOUTH EVERY 12 HOURS FOR 7 DAYS TAKE ONE CAPSULE BY MOUTH EVERY 12 HOURS FOR 7 DAYS SO LD: 01/21/2019 [facility] Prednisone 20 MG Oral Tablet PredniSONE 20 MG PredniSONE 20 MG 01/21/2019 12:00:00 AM EST suspended 2 tab lets eCW1 ([facility]) Prednisone 20 MG Oral Tablet PredniSONE 20 MG PredniSONE 20 MG 01/21/2019 12:00:00 AM EST suspended 2 tab lets eCW1 ([facility]) 2.5 mg /3 mL (0.083 %) 01/12/2019 [...] 300 MG Oral Capsule POLO ([facility]) umeclidinium 0.0625 MG/ACTUAT / vilanter ol 0.025 MG/ACTUAT Dry Powder Inhaler Anoro Ellipta 62.5 mcg-25 mcg/actuation powder for inhalation Anoro Ellipta 62.5 mcg-25 mcg/actuation powder for inhalation completed umeclidinium 0.0625 MG/ACTUAT / vilanterol 0.025 MG/ACTUAT Dry Powder Inhaler POLO ([facility]) omeprazole 20 mg cpdr completed omeprazole 20 mg cpdr POLO ([facility]) Cyclobenzaprine hydrochloride 10 MG Oral Tablet cyclobenzaprine 10 mg tablet TAKE ONE TABLET BY MOUTH EVERY DAY AT BEDTIME cyclobenzaprine 10 mg tablet TAKE ONE TABLET BY MOUTH EVERY DAY AT BEDTIME completed cyclobenzaprine hydrochloride 10 MG Oral Tablet POLO ([facility]) omeprazole 20 mg cpdr completed omeprazole 20 mg cpdr POLO ([facility]) alprazolam 0.5 mg tabs completed alprazolam 0.5 mg tabs POLO ([facility]) alprazolam 0.5 mg tabs completed alprazolam 0.5 mg tabs POLO ([facility]) gabapentin 300 mg caps completed gabapentin 300 mg caps POLO ([facility]) gabapentin 400 mg caps completed gabapentin 400 mg caps POLO ([facility]) NITROFURANTOIN, MACROCRYSTALS 25 MG / Ni trofurantoin, Monohydrate 75 MG Oral Capsule nitrofurantoin monohydrate/macrocrystals 100 mg capsule nitrofurantoin monohydrate/macrocrystals 100 mg capsule completed nitrofurantoin, macrocrystals 25 MG / nitrofurantoin, monohydrate 75 MG Oral Capsule POLO ([facility]) paroxetine hcl 30 mg tabs compl eted paroxetine hcl 30 mg tabs POLO ([facility]) alprazolam 0.5 mg tabs completed alprazolam 0.5 mg tabs POLO ([facility]) Trazodone Hydrochloride 50 MG Oral Tablet trazodone 50 mg tablet 1 tab daily trazodone 50 mg tablet 1 tab daily com pleted trazodone hydrochloride 50 MG Oral Tablet POLO ([facility]) atorvastatin calcium 80 mg tabs completed atorvastatin calcium 80 mg tabs [facility]O ([facility]) topiramate 100 mg tabs completed topiramate 100 mg tabs POLO ([facility]) Ranitidine 150 MG Oral Tablet ranitidine 150 mg tablet ranit idine 150 mg tablet completed ranitidine 150 MG Oral Tablet POLO ([facility]) Alprazolam 0.5 MG Oral Tablet alprazolam 0.5 mg tablet TAKE ONE TABLET BY MOUTH TWICE A DAY NEEDED MAXIMUM DAILY DOSE TWO TABLETS alprazolam 0.5 mg tablet TAKE ONE TABLET BY MOUTH TWICE A DAY NEEDED MAXIMUM DAILY DOSE TWO TABLETS completed alprazolam 0. 5 MG Oral Tablet POLO ([facility]) doxycycline monohydrate 100 mg caps completed doxycycline monohydrate 100 mg caps POLO ([facility]) alprazolam 0.5 mg tabs completed alprazolam 0.5 mg tabs POLO ([facility]) Prednisone 20 MG Oral Tablet prednisone 20 mg tablet prednisone 20 mg tablet completed prednisone 20 MG Oral Tablet POLO ([facility]) tizanidine hydrochloride 4 mg tabs completed tizanidine hydrochloride 4 mg tabs POLO ([facility]) carisoprodol 350 mg tabs completed carisoprodol 350 mg tabs POLO ([facility]) methylprednisolone dose pack 4 mg tbpk completed methylprednisolone dose pack 4 mg tbpk POLO ([facility]) NITROFURANTOIN, MACROCRYSTALS 25 MG / Ni trofurantoin, Monohydrate 75 MG Oral Capsule nitrofurantoin monohydrate/macrocrystals 100 mg capsule nitrofurantoin monohydrate/macrocrystals 100 mg capsule completed nitrofurantoin, macrocrystals 25 MG / nitrofurantoin, monohydrate 75 MG Oral Capsule POLO ([facility]) Doxycycline Monohydrate 100 MG Oral Caps ule doxycycline monohydrate 100 mg capsule doxycycline monohydrate 100 mg capsule completed doxycycline monohydrate 100 MG Oral Capsule POLO ([facility]) omeprazole 20 mg cpdr completed omeprazole 20 mg cpdr POLO ([facility]) Sulfamethoxazole 800 MG / Trimethoprim 1 60 MG Oral Tablet sulfamethoxazole 800 mg-trimethoprim 160 mg tablet sulfamethoxazole 800 mg-trimethoprim 160 mg tablet completed sulfame thoxazole 800 MG / trimethoprim 160 MG Oral Tablet POLO ([facility]) ezetimibe 10 mg tabs completed ezetimibe 10 mg tabs POLO ([facility]) atorvastatin calcium 80 mg tabs completed atorvastatin calcium 80 mg tabs POLO ([facility]) carisoprodol 350 mg tabs completed carisoprodol 350 mg tabs POLO ([facility]) Nortriptyline 25 MG Oral Capsule nortrip tyline 25 mg capsule TAKE ONE CAPSULE BY MOUTH EVERY DAY nortriptyline 25 mg capsule TAKE ONE CAP ALEXX BY MOUTH EVERY DAY completed nortriptyline 25 MG Oral Capsule POLO ([facility]) Trazodone Hydrochloride 50 MG Oral Tablet trazodone 50 mg tablet 1 tab daily trazodone 50 mg tablet 1 tab daily com pleted trazodone hydrochloride 50 MG Oral Tablet POLO ([facility]) atorvastatin calcium 80 mg tabs completed atorvastatin calcium 80 mg tabs POLO ([facility]) Prednisone 20 MG Oral Tablet prednisone 20 mg tablet prednisone 20 mg tablet completed prednisone 20 MG Oral Tablet POLO ([facility]) famotidine 40 mg tabs completed famotidine 40 mg tabs POLO ([facility]) Phenazopyridine hydrochloride 200 MG Ora l Tablet phenazopyridine 200 mg tablet TAKE ONE TABLET BY MOUTH THREE TIMES A DAY AFTER MEALS phenazopyridine 200 mg tablet TAKE ONE TABLET BY MOUTH THREE TIMES A DAY AFTER MEALS completed phenazopyridine hydrochloride 20 0 MG Oral Tablet POLO ([facility]) omeprazole 20 mg cpdr completed omeprazole 20 mg cpdr [facility] ([facility]) carisoprodol 350 mg tabs completed carisoprodol 350 mg tabs POLO ([facility]) fluticasone furoate 0.2 MG/ACTUAT Dry Po wder Inhaler Arnuity Ellipta 200 mcg/actuation powder for inhalation Arnuity Ellipta 200 mcg/actuation powder for inhalation completed fl uticasone furoate 0.2 MG/ACTUAT Dry Powder Inhaler POLO ([facility]) doxycycline monohydrate 100 mg caps completed doxycycline monohydrate 100 mg caps POLO ([facility]) gabapentin 100 MG Oral Capsule gabapentin 100 mg capsu le gabapentin 100 mg capsule completed gabapentin 100 MG Oral Capsule POLO ([facility]) methylprednisolone dose pack 4 mg tbpk completed methylprednisolone dose pack 4 mg tbpk POLO ([facility]) Nortriptyline 25 MG Oral Capsule nortrip tyline 25 mg capsule TAKE ONE CAPSULE BY MOUTH EVERY DAY nortriptyline 25 mg capsule TAKE ONE CAP ALEXX BY MOUTH EVERY DAY completed nortriptyline 25 MG Oral Capsule POLO ([facility]) Nortriptyline 25 MG Oral Capsule nortrip tyline 25 mg capsule TAKE ONE CAPSULE BY MOUTH EVERY DAY nortriptyline 25 mg capsule TAKE ONE CAP ALEXX BY MOUTH EVERY DAY completed nortriptyline 25 MG Oral Capsule POLO ([facility]) Famotidine 40 MG Oral Tablet famotidine 40 mg tablet famotidine 40 mg tablet completed famotidine 40 MG Oral Tablet POLO ([facility]) lidocaine hcl jelly 2 % gel com pleted lidocaine hcl jelly 2 % gel POLO ([facility]) pantoprazole sodium 20 mg tbec completed pantoprazole sodium 20 mg tbec POLO ([facility]) methylprednisolone 4 mg tablets in a dose pack [id number] completed methylprednisolone 4 mg tablets in a dose pack POLO ([facility]) famotidine 40 mg tabs completed famotidine 40 mg tabs POLO ([facility]) doxycycline monohydrate 100 mg caps completed doxycycline monohydrate 100 mg caps POLO ([facility]) Lidocaine Hydrochloride 0.02 MG/MG Topical Gel lidocai ne HCl 2 % mucosal jelly lidocaine HCl 2 % mucosal jelly comple alyssa lidocaine hydrochloride 0.02 MG/MG Topical Gel POLO ([facility]) Trazodone Hydrochloride 50 MG Oral Tablet trazodone 50 mg tablet 1 tab daily trazodone 50 mg tablet 1 tab daily com pleted trazodone hydrochloride 50 MG Oral Tablet POLO ([facility]) Trazodone Hydrochloride 50 MG Oral Tablet trazodone 50 mg tablet 1 tab daily trazodone 50 mg tablet 1 tab daily com pleted trazodone hydrochloride 50 MG Oral Tablet POLO ([facility]) albuterol sulfate HFA 90 mcg/actuation a erosol inhaler INHALE TWO PUFFS BY MOUTH FOUR TIMES A DAY NEEDED [id number] completed [id number] 200 ACTUAT albuterol 0.09 MG/ACTUAT Metered Dose Inhaler POLO ([facility]) paroxetine hcl 30 mg tabs compl eted paroxetine hcl 30 mg tabs POLO ([facility]) pantoprazole sodium 20 mg tbec completed pantoprazole sodium 20 mg tbec POLO ([facility]) ezetimibe 10 mg tabs completed ezetimibe 10 mg tabs POLO ([facility]) topiramate 100 mg tabs completed topiramate 100 mg tabs POLO ([facility]) gabapentin 400 mg caps completed gabapentin 400 mg caps POLO ([facility]) topiramate 100 mg tabs completed topiramate 100 mg tabs POLO ([facility]) famotidine 40 mg tabs completed famotidine 40 mg tabs POLO ([facility]) Prednisone 20 MG Oral Tablet prednisone 20 mg tablet prednisone 20 mg tablet completed prednisone 20 MG Oral Tablet POLO ([facility]) carisoprodol 350 mg tabs completed carisoprodol 350 mg tabs POLO ([facility]) tizanidine 4 MG Oral Tablet tizanidine 4 mg tablet tizanidine 4 mg ta blet completed tizanidine 4 MG Oral Tablet POLO ([facility]) gabapentin 300 mg caps completed gabapentin 300 mg caps POLO ([facility]) gabapentin 400 mg caps completed gabapentin 400 mg caps POLO ([facility]) Trazodone Hydrochloride 50 MG Oral Tablet trazodone 50 mg tablet 1 tab daily trazodone 50 mg tablet 1 tab daily com pleted trazodone hydrochloride 50 MG Oral Tablet POLO ([facility]) famotidine 40 mg tabs completed famotidine 40 mg tabs POLO ([facility]) famotidine 40 mg tabs completed famotidine 40 mg tabs POLO ([facility]) alprazolam 0.5 mg tabs completed alprazolam 0.5 mg tabs [facility] ([facility]) tizanidine hydrochloride 4 mg tabs completed tizanidine hydrochloride 4 mg tabs [facility] ([facility]) prednisone 20 mg tabs completed prednisone 20 mg tabs [facility] ([facility]) Baclofen 10 MG Oral Tablet baclofen 10 mg tablet baclofen 10 mg tablet completed Baclofen 10 MG Oral Table t [facility] ([facility]) methylprednisolone dose pack 4 mg tbpk completed methylprednisolone dose pack 4 mg tbpk WALDRON ([facility]) Fluzone Quad (PF) 60 mcg (15 m cg x 4)/0.5 mL IM suspension INJECT DIRECTED [id number] completed 0.5 ML influenza A virus A/[facility]/[id number] (H1N1) antigen 0.03 MG/ML / influenza A virus A/[facility] (H3N2) antigen 0.03 MG/ML / influenza B virus B/[facility]30704/2012 antigen 0.03 MG/ML / influenza B virus B/[place] antigen 0.03 MG/ML Injection [Fluzone Quadrivalent ] POLO ([facility]) Alprazolam 0.5 MG Oral Tablet alprazolam 0.5 mg tablet TAKE ONE TABLET BY MOUTH TWICE A DAY NEEDED MAXIMUM DAILY DOSE TWO TABLETS alprazolam 0.5 mg tablet TAKE ONE TABLET BY MOUTH TWICE A DAY NEEDED MAXIMUM DAILY DOSE TWO TABLETS completed alprazolam 0.5 MG Oral Tablet [facility] ([facility]) gabapentin 400 mg caps completed gabapentin 400 mg caps [facility] ([facility]) pantoprazole sodium 20 mg tbec completed pantoprazole sodium 20 mg tbec [facility] ([facility]) omeprazole 20 mg cpdr completed omeprazole 20 mg cpdr [facility] ([facility]) ipratropium/ tiff albuter completed ipratropium/ tiff albuter [facility] ([facility]) paroxetine hcl 30 mg tabs compl eted paroxetine hcl 30 mg tabs [facility] ([facility]) hydroco/apap tab 5-325mg completed hydroco/apap tab 5-325mg POL[facility] ([facility]) doxycycline monohydrate 100 mg caps completed doxycycline monohydrate 100 mg caps POL[facility] ([facility]) Doxycycline Monohydrate 100 MG Oral Caps ule doxycycline monohydrate 100 mg capsule doxycycline monohydrate 100 mg capsule completed doxycycline monohydrate 100 MG Oral Capsule POL[facility] ([facility]) omeprazole 20 mg cpdr completed omeprazole 20 mg cpdr [facility] ([facility]) atorvastatin calcium 80 mg tabs completed atorvastatin calcium 80 mg tabs POL[facility] ([facility]) doxycycline monohydrate 100 mg caps completed doxycycline monohydrate 100 mg caps POL[facility] ([facility]) gabapentin 400 mg caps completed gabapentin 400 mg caps POLO ([facility]) methylprednisolone 4 mg tablets in a dose pack [id number] completed methylprednisolone 4 mg tablets in a dose pack POLO ([facility]) Famotidine 40 MG Oral Tablet famotidine 40 mg tablet famotidine 40 mg tablet completed famotidine 40 MG Oral Tablet [facility] ([facility]) doxycycline monohydrate 100 mg caps completed doxycycline monohydrate 100 mg caps [facility] ([facility]) clopidogrel 75 mg tabs completed clopidogrel 75 mg tabs POL[facility] ([facility]) topiramate 100 mg tabs completed topiramate 100 mg tabs POL[facility] ([facility]) gabapentin 400 mg caps completed gabapentin 400 mg caps [facility] ([facility]) tizanidine hydrochloride 4 mg tabs completed tizanidine hydrochloride 4 mg tabs POL[facility] ([facility]) paroxetine hcl 30 mg tabs compl eted paroxetine hcl 30 mg tabs POL[facility] ([facility]) Carisoprodol 350 MG Oral Tablet carisopr odol 350 mg tablet Take 1 tablet 3 times a day by oral route as needed for 5 days. carisoprodol 350 mg tablet Take 1 tablet 3 times a day by oral route as needed for 5 days. 1 completed carisoprodol 350 MG Oral Tablet POL[facility] ( [facility]) Doxycycline Monohydrate 100 MG Oral Caps ule doxycycline monohydrate 100 mg capsule doxycycline monohydrate 100 mg capsule completed doxycycline monohydrate 100 MG Oral Capsule POL[facility] ([facility]) alprazolam 0.5 mg tabs completed alprazolam 0.5 mg tabs [facility] ([facility]) clopidogrel 75 mg tabs completed clopidogrel 75 mg tabs POL[facility] ([facility]) Carisoprodol 350 MG Oral Tablet carisopr odol 350 mg tablet Take 1 tablet 3 times a day by oral route as needed for 5 days. carisoprodol 350 mg tablet Take 1 tablet 3 times a day by oral route as needed for 5 days. 1 completed carisoprodol 350 MG Oral Tablet POL[facility] ( [facility]) clopidogrel 75 mg tabs completed clopidogrel 75 mg tabs POL[facility] ([facility]) prednisone 20 mg tabs completed prednisone 20 mg tabs POL[facility] ([facility]) Carisoprodol 350 MG Oral Tablet carisopr odol 350 mg tablet Take 1 tablet 3 times a day by oral route as needed for 5 days. carisoprodol 350 mg tablet Take 1 tablet 3 times a day by oral route as needed for 5 days. 1 completed carisoprodol 350 MG Oral Tablet POL[facility] ( [facility]) Prednisone 20 MG Oral Tablet prednisone 20 mg tablet prednisone 20 mg tablet completed prednisone 20 MG Oral Tablet POL[facility] ([facility]) Lidocaine Hydrochloride 0.02 MG/MG Topical Gel lidocai ne HCl 2 % mucosal jelly lidocaine HCl 2 % mucosal jelly comple alyssa lidocaine hydrochloride 0.02 MG/MG Topical Gel POLO ([facility]) topiramate 100 mg tabs completed topiramate 100 mg tabs POL[facility] ([facility]) Carisoprodol 350 MG Oral Tablet carisopr odol 350 mg tablet Take 1 tablet 3 times a day by oral route as needed for 5 days. carisoprodol 350 mg tablet Take 1 tablet 3 times a day by oral route as needed for 5 days. 1 completed carisoprodol 350 MG Oral Tablet POL[facility] ( [facility]) lidocaine hcl jelly 2 % gel com pleted lidocaine hcl jelly 2 % gel POL[facility] ([facility]) pantoprazole sodium 20 mg tbec completed pantoprazole sodium 20 mg tbec POL[facility] ([facility]) Nortriptyline 25 MG Oral Capsule nortrip tyline 25 mg capsule TAKE ONE CAPSULE BY MOUTH EVERY DAY nortriptyline 25 mg capsule TAKE ONE CAPSULE BY MOUTH EVERY DAY completed nortriptyline 25 MG Oral Capsule POLO ([facility]) lidocaine 5 % topical patch [id number] com pleted lidocaine 0.05 MG/MG Medicated Patch POLO ([facility]) atorvastatin calcium 80 mg tabs completed atorvastatin calcium 80 mg tabs POLO ([facility]) Cyclobenzaprine hydrochloride 10 MG Oral Tablet cyclobenzaprine 10 mg tablet TAKE ONE TABLET BY MOUTH EVERY DAY AT BEDTIME cyclobenzaprine 10 mg tablet TAKE ONE TABLET BY MOUTH EVERY DAY AT BEDTIME completed cyclobenzaprine hydrochloride 10 MG Oral Tablet POL[facility] ([facility]) omeprazole 20 mg cpdr completed omeprazole 20 mg cpdr [facility] ([facility]) clopidogrel 75 mg tabs completed clopidogrel 75 mg tabs POL[facility] ([facility]) lidocaine hcl jelly 2 % gel com pleted lidocaine hcl jelly 2 % gel POLO ([facility]) Carisoprodol 350 MG Oral Tablet carisopr odol 350 mg tablet Take 1 tablet 3 times a day by oral route as needed for 5 days. carisoprodol 350 mg tablet Take 1 tablet 3 times a day by oral route as needed for 5 days. 1 completed carisoprodol 350 MG Oral Tablet POL[facility] ( [facility]) topiramate 100 mg tabs completed topiramate 100 mg tabs POL[facility] ([facility]) methylprednisolone 4 mg tablets in a dose pack [id number] completed methylprednisolone 4 mg tablets in a dose pack POLO ([facility]) Prednisone 20 MG Oral Tablet prednisone 20 mg tablet prednisone 20 mg tablet completed prednisone 20 MG Oral Tablet POLO ([facility]) tizanidine hydrochloride 4 mg tabs completed tizanidine hydrochloride 4 mg tabs POL[facility] ([facility]) gabapentin 300 mg caps completed gabapentin 300 mg caps POL[facility] ([facility]) Lidocaine Hydrochloride 0.02 MG/MG Topical Gel lidocai ne HCl 2 % mucosal jelly lidocaine HCl 2 % mucosal jelly comple alyssa lidocaine hydrochloride 0.02 MG/MG Topical Gel POLO ([facility]) albuterol sulfate HFA 90 mcg/actuation a erosol inhaler INHALE TWO PUFFS BY MOUTH FOUR TIMES A DAY NEEDED [id number] completed [id number] 200 ACTUAT albuterol 0.09 MG/ACTUAT Metered Dose Inhaler POLO ([facility]) Carisoprodol 350 MG Oral Tablet carisopr odol 350 mg tablet Take 1 tablet 3 times a day by oral route as needed for 5 days. carisoprodol 350 mg tablet Take 1 tablet 3 times a day by oral route as needed for 5 days. 1 completed carisoprodol 350 MG Oral Tablet POLO ( [facility]) pantoprazole 20 MG Delayed Release Oral Tablet pantoprazole 20 mg tablet,delayed release pantoprazole 20 mg tablet,delayed release completed pantoprazole 20 MG Delayed Release Oral Tablet POL[facility] ([facility]) ezetimibe 10 mg tabs completed ezetimibe 10 mg tabs POL[facility] ([facility]) carisoprodol 350 mg tabs completed carisoprodol 350 mg tabs [facility] ([facility]) gabapentin 400 mg caps completed gabapentin 400 mg caps POL[facility] ([facility]) omeprazole 20 mg cpdr completed omeprazole 20 mg cpdr POL[facility] ([facility]) Alprazolam 0.5 MG Oral Tablet alprazolam 0.5 mg tablet TAKE ONE TABLET BY MOUTH TWICE A DAY NEEDED MAXIMUM DAILY DOSE TWO TABLETS alprazolam 0.5 mg tablet TAKE ONE TABLET BY MOUTH TWICE A DAY NEEDED MAXIMUM DAILY DOSE TWO TABLETS completed alprazolam 0.5 MG Oral Tablet [facility] ([facility]) Carisoprodol 350 MG Oral Tablet carisopr odol 350 mg tablet Take 1 tablet 3 times a day by oral route as needed for 5 days. carisoprodol 350 mg tablet Take 1 tablet 3 times a day by oral route as needed for 5 days. 1 completed carisoprodol 350 MG Oral Tablet POLO ( [facility]) Baclofen 10 MG Oral Tablet baclofen 10 mg tablet baclofen 10 mg tablet completed baclofen 10 MG Oral Table t POLO ([facility]) Lidocaine Hydrochloride 0.02 MG/MG Topical Gel lidocai ne HCl 2 % mucosal jelly lidocaine HCl 2 % mucosal jelly comple alyssa lidocaine hydrochloride 0.02 MG/MG Topical Gel POLO ([facility]) Lidocaine Hydrochloride 0.02 MG/MG Topical Gel lidocai ne HCl 2 % mucosal jelly lidocaine HCl 2 % mucosal jelly comple alyssa lidocaine hydrochloride 0.02 MG/MG Topical Gel POLO ([facility]) Phenazopyridine hydrochloride 200 MG Ora l Tablet phenazopyridine 200 mg tablet TAKE ONE TABLET BY MOUTH THREE TIMES A DAY AFTER MEALS phenazopyridine 200 mg tablet TAKE ONE TABLET BY MOUTH THREE TIMES A DAY AFTER MEALS completed phenazopyridine hydrochloride 20 0 MG Oral Tablet POLO ([facility]) Trazodone Hydrochloride 50 MG Oral Tablet trazodone 50 mg tablet 1 tab daily trazodone 50 mg tablet 1 tab daily com pleted trazodone hydrochloride 50 MG Oral Tablet POLO ([facility]) doxycycline monohydrate 100 mg caps completed doxycycline monohydrate 100 mg caps POLO ([facility]) hydroco/apap tab 5-325mg completed hydroco/apap tab 5-325mg POLO ([facility]) gabapentin 100 MG Oral Capsule gabapentin 100 mg capsu le gabapentin 100 mg capsule completed gabapentin 100 MG Oral Capsule POLO ([facility]) atorvastatin calcium 80 mg tabs completed atorvastatin calcium 80 mg tabs POLO ([facility]) Lidocaine Hydrochloride 0.02 MG/MG Topical Gel lidocai ne HCl 2 % mucosal jelly lidocaine HCl 2 % mucosal jelly comple alyssa lidocaine hydrochloride 0.02 MG/MG Topical Gel POLO ([facility]) albuterol sulfate HFA 90 mcg/actuation a erosol inhaler INHALE TWO PUFFS BY MOUTH FOUR TIMES A DAY NEEDED [id number] completed [id number] 200 ACTUAT albuterol 0.09 MG/ACTUAT Metered Dose Inhaler POLO ([facility]) Prednisone 20 MG Oral Tablet prednisone 20 mg tablet prednisone 20 mg tablet completed prednisone 20 MG Oral Tablet POLO ([facility]) clopidogrel 75 mg tabs completed clopidogrel 75 mg tabs POLO ([facility]) pantoprazole sodium 20 mg tbec completed pantoprazole sodium 20 mg tbec POLO ([facility]) alprazolam 0.5 mg tabs completed alprazolam 0.5 mg tabs POLO ([facility]) alprazolam 0.5 mg tabs completed alprazolam 0.5 mg tabs POLO ([facility]) famotidine 40 mg tabs completed famotidine 40 mg tabs POLO ([facility]) gabapentin 300 mg caps completed gabapentin 300 mg caps POLO ([facility]) umeclidinium 0.0625 MG/ACTUAT / vilanter ol 0.025 MG/ACTUAT Dry Powder Inhaler Anoro Ellipta 62.5 mcg-25 mcg/actuation powder for inhalation INHALE ONE PUFF BY MOUTH EVERY DAY Anoro Ellipta 62.5 mcg-25 mcg/actuation powder for inhalation INHALE ONE PUFF BY MOUTH EVERY DAY com pleted umeclidinium 0.0625 MG/ACTUAT / vilanterol 0.025 MG/ACTUAT Dry Powder Inhaler POLO ([facility]) tizanidine hydrochloride 4 mg tabs completed tizanidine hydrochloride 4 mg tabs POLO ([facility]) gabapentin 300 mg caps completed gabapentin 300 mg caps POLO ([facility]) ezetimibe 10 mg tabs completed ezetimibe 10 mg tabs POLO ([facility]) Lidocaine Hydrochloride 0.02 MG/MG Topical Gel lidocai ne HCl 2 % mucosal jelly lidocaine HCl 2 % mucosal jelly comple alyssa lidocaine hydrochloride 0.02 MG/MG Topical Gel POLO ([facility]) Nortriptyline 25 MG Oral Capsule nortrip tyline 25 mg capsule TAKE ONE CAPSULE BY MOUTH EVERY DAY nortriptyline 25 mg capsule TAKE ONE CAPSULE BY MOUTH EVERY DAY completed nortriptyline 25 MG Oral Capsule POLO ([facility]) prednisone 20 mg tabs completed prednisone 20 mg tabs POLO ([facility]) ipratropium/ tiff albuter completed ipratropium/ tiff albuter POLO ([facility]) doxycycline monohydrate 100 mg caps completed doxycycline monohydrate 100 mg caps POLO ([facility]) Lidocaine Hydrochloride 0.02 MG/MG Topical Gel lidocai ne HCl 2 % mucosal jelly lidocaine HCl 2 % mucosal jelly comple alyssa lidocaine hydrochloride 0.02 MG/MG Topical Gel POLO ([facility]) atorvastatin calcium 80 mg tabs completed atorvastatin calcium 80 mg tabs PLOO ([facility]) doxycycline monohydrate 100 mg caps completed doxycycline monohydrate 100 mg caps POLO ([facility]) Acetaminophen 325 MG / Hydrocodone Sony trate 5 MG Oral Tablet hydrocodone 5 mg- acetaminophen 325 mg tablet hydrocodone 5 mg-acetaminophen 325 mg tablet completed acetaminophen 325 MG / hydrocodone bitartrate 5 MG Oral Tablet POLO ([facility]) famotidine 40 mg tabs completed famotidine 40 mg tabs POLO ([facility]) Carisoprodol 350 MG Oral Tablet carisopr odol 350 mg tablet Take 1 tablet 3 times a day by oral route as needed for 5 days. carisoprodol 350 mg tablet Take 1 tablet 3 times a day by oral route as needed for 5 days. 1 completed carisoprodol 350 MG Oral Tablet POLO ( [facility]) NITROFURANTOIN, MACROCRYSTALS 25 MG / Ni trofurantoin, Monohydrate 75 MG Oral Capsule nitrofurantoin monohydrate/macrocrystals 100 mg capsule nitrofurantoin monohydrate/macrocrystals 100 mg capsule completed nitrofurantoin, macrocrystals 25 MG / nitrofurantoin, monohydrate 75 MG Oral Capsule POLO ([facility]) ipratropium/ tiff albuter completed ipratropium/ tiff albuter POLO ([facility]) lidocaine hcl jelly 2 % gel com pleted lidocaine hcl jelly 2 % gel POLO ([facility]) carisoprodol 350 mg tabs completed carisoprodol 350 mg tabs POLO ([facility]) lidocaine 5 % topical patch [id number] com pleted lidocaine 0.05 MG/MG Medicated Patch POLO ([facility]) Famotidine 40 MG Oral Tablet famotidine 40 mg tablet famotidine 40 mg tablet completed famotidine 40 MG Oral Tablet POLO ([facility]) Albuterol 0.833 MG/ML / Ipratropium Brom simin 0.167 MG/ML Inhalant Solution ipratropium 0.5 mg-albuterol 3 mg (2.5 mg base)/3 mL nebulization soln twice a day as needed ipratropium 0.5 mg-albuterol 3 mg (2.5 m g base)/3 mL nebulization soln twice a day as needed completed albuterol 0.833 MG/ML / ipratropium bromide 0.167 MG/ML Inhalation Solution POLO ([facility]) gabapentin 400 mg caps completed gabapentin 400 mg caps POL[facility] ([facility]) Omeprazole 20 MG Delayed Release Oral Ca psule omeprazole 20 mg capsule,delayed release TAKE ONE CAPSULE BY MOUTH EVERY DAY 30 MINUTES BEFORE MORNING MEAL NEEDED omeprazole 20 mg capsule,delayed release TAKE ONE CAPSULE BY MOUTH EVERY DAY 30 MINUTES BEFORE MORNING MEAL NEEDED completed omeprazole 20 MG Delayed Release Oral Capsule POLO ([facility]) pantoprazole sodium 20 mg tbec completed pantoprazole sodium 20 mg tbec POLO ([facility]) clopidogrel 75 mg tabs completed clopidogrel 75 mg tabs POLO ([facility]) fluticasone furoate 0.2 MG/ACTUAT Dry Po wder Inhaler Arnuity Ellipta 200 mcg/actuation powder for inhalation Arnuity Ellipta 200 mcg/actuation powder for inhalation completed flu ticasone furoate 0.2 MG/ACTUAT Dry Powder Inhaler POLO ([facility]) Ranitidine 150 MG Oral Tablet ranitidine 150 mg tablet ranit idine 150 mg tablet completed Ranitidine 150 MG Oral Tablet POLO ([facility]) Ranitidine 150 MG Oral Tablet ranitidine 150 mg tablet ranit idine 150 mg tablet completed ranitidine 150 MG Oral Tablet POLO ([facility]) alprazolam 0.5 mg tabs completed alprazolam 0.5 mg tabs POLO ([facility]) paroxetine hcl 30 mg tabs compl eted paroxetine hcl 30 mg tabs POLO ([facility]) tizanidine 4 MG Oral Tablet tizanidine 4 mg tablet tizanidine 4 mg ta blet completed tizanidine 4 MG Oral Tablet POLO ([facility]) Famotidine 40 MG Oral Tablet famotidine 40 mg tablet famotidine 40 mg tablet completed famotidine 40 MG Oral Tablet POLO ([facility]) carisoprodol 350 mg tabs completed carisoprodol 350 mg tabs POLO ([facility]) methylprednisolone 4 mg tablets in a dose pack [id number] completed methylprednisolone 4 mg tablets in a dose pack POLO ([facility]) topiramate 100 mg tabs completed topiramate 100 mg tabs POLO ([facility]) famotidine 40 mg tabs completed famotidine 40 mg tabs POLO ([facility]) atorvastatin calcium 80 mg tabs completed atorvastatin calcium 80 mg tabs POLO ([facility]) Carisoprodol 350 MG Oral Tablet carisopr odol 350 mg tablet Take 1 tablet 3 times a day by oral route as needed for 5 days. carisoprodol 350 mg tablet Take 1 tablet 3 times a day by oral route as needed for 5 days. 1 completed carisoprodol 350 MG Oral Tablet POLO ( [facility]) methylprednisolone 4 mg tablets in a dose pack [id number] completed methylprednisolone 4 mg tablets in a dose pack POLO ([facility]) Acetaminophen 325 MG / Hydrocodone Sony trate 5 MG Oral Tablet hydrocodone 5 mg- acetaminophen 325 mg tablet hydrocodone 5 mg-acetaminophen 325 mg tablet completed acetaminophen 325 MG / hydrocodone bitartrate 5 MG Oral Tablet POLO ([facility]) Carisoprodol 350 MG Oral Tablet carisopr odol 350 mg tablet Take 1 tablet 3 times a day by oral route as needed for 5 days. carisoprodol 350 mg tablet Take 1 tablet 3 times a day by oral route as needed for 5 days. 1 completed carisoprodol 350 MG Oral Tablet POLO ( [facility]) ezetimibe 10 mg tabs completed ezetimibe 10 mg tabs POLO ([facility]) ipratropium/ tiff albuter completed ipratropium/ tiff albuter POLO ([facility]) ipratropium/ tiff albuter completed ipratropium/ tiff albuter POLO ([facility]) pantoprazole sodium 20 mg tbec completed pantoprazole sodium 20 mg tbec POLO ([facility]) Ranitidine 150 MG Oral Tablet ranitidine 150 mg tablet ranit idine 150 mg tablet completed ranitidine 150 MG Oral Tablet POLO ([facility]) Albuterol 0.833 MG/ML / Ipratropium Brom simin 0.167 MG/ML Inhalant Solution ipratropium 0.5 mg-albuterol 3 mg (2.5 mg base)/3 mL nebulization soln twice a day as needed ipratropium 0.5 mg-albuterol 3 mg (2.5 m g base)/3 mL nebulization soln twice a day as needed completed albuterol 0.833 MG/ML / ipratropium bromide 0.167 MG/ML Inhalation Solution POLO ([facility]) Cyclobenzaprine hydrochloride 10 MG Oral Tablet cyclobenzaprine 10 mg tablet TAKE ONE TABLET BY MOUTH EVERY DAY AT BEDTIME cyclobenzaprine 10 mg tablet TAKE ONE TABLET BY MOUTH EVERY DAY AT BEDTIME completed cyclobenzaprine hydrochloride 10 MG Oral Tablet POLO ([facility]) Phenazopyridine hydrochloride 200 MG Ora l Tablet phenazopyridine 200 mg tablet TAKE ONE TABLET BY MOUTH THREE TIMES A DAY AFTER MEALS phenazopyridine 200 mg tablet TAKE ONE TABLET BY MOUTH THREE TIMES A DAY AFTER MEALS completed phenazopyridine hydrochloride 20 0 MG Oral Tablet POLO ([facility]) Albuterol 0.833 MG/ML / Ipratropium Brom simin 0.167 MG/ML Inhalant Solution ipratropium 0.5 mg-albuterol 3 mg (2.5 mg base)/3 mL nebulization soln twice a day as needed ipratropium 0.5 mg-albuterol 3 mg (2.5 m g base)/3 mL nebulization soln twice a day as needed completed albuterol 0.833 MG/ML / ipratropium bromide 0.167 MG/ML Inhalation Solution POLO ([facility]) methylprednisolone dose pack 4 mg tbpk completed methylprednisolone dose pack 4 mg tbpk POLO ([facility]) Nortriptyline 25 MG Oral Capsule nortrip tyline 25 mg capsule TAKE ONE CAPSULE BY MOUTH EVERY DAY nortriptyline 25 mg capsule TAKE ONE CAPSULE BY MOUTH EVERY DAY completed nortriptyline 25 MG Oral Capsule POLO ([facility]) Trazodone Hydrochloride 50 MG Oral Tablet trazodone 50 mg tablet 1 tab daily trazodone 50 mg tablet 1 tab daily com pleted trazodone hydrochloride 50 MG Oral Tablet POLO ([facility]) Prednisone 20 MG Oral Tablet prednisone 20 mg tablet prednisone 20 mg tablet completed prednisone 20 MG Oral Tablet [facility] ([facility]) Acetaminophen 325 MG / Hydrocodone Sony trate 5 MG Oral Tablet hydrocodone 5 mg- acetaminophen 325 mg tablet hydrocodone 5 mg-acetaminophen 325 mg tablet completed acetaminophen 325 MG / hydrocodone bitartrate 5 MG Oral Tablet [facility] ([facility]) Acetaminophen 325 MG / Hydrocodone Sony trate 5 MG Oral Tablet hydrocodone 5 mg- acetaminophen 325 mg tablet hydrocodone 5 mg-acetaminophen 325 mg tablet completed acetaminophen 325 MG / hydrocodone bitartrate 5 MG Oral Tablet [facility] ([facility]) tizanidine hydrochloride 4 mg tabs completed tizanidine hydrochloride 4 mg tabs [facility] ([facility]) lidocaine hcl jelly 2 % gel com pleted lidocaine hcl jelly 2 % gel [facility] ([facility]) Ranitidine 150 MG Oral Tablet ranitidine 150 mg tablet ranit idine 150 mg tablet completed ranitidine 150 MG Oral Tablet [facility] ([facility]) umeclidinium 0.0625 MG/ACTUAT / vilanter ol 0.025 MG/ACTUAT Dry Powder Inhaler Anoro Ellipta 62.5 mcg-25 mcg/actuation powder for inhalation Anoro Ellipta 62.5 mcg-25 mcg/actuation powder for inhalation completed umeclidinium 0.0625 MG/ACTUAT / vilanterol 0.025 MG/ACTUAT Dry Powder Inhaler [facility] ([facility]) tizanidine hydrochloride 4 mg tabs completed tizanidine hydrochloride 4 mg tabs [facility] ([facility]) Famotidine 40 MG Oral Tablet famotidine 40 mg tablet famotidine 40 mg tablet completed famotidine 40 MG Oral Tablet [facility] ([facility]) Alprazolam 0.5 MG Oral Tablet alprazolam 0.5 mg tablet TAKE ONE TABLET BY MOUTH TWICE A DAY NEEDED MAXIMUM DAILY DOSE TWO TABLETS alprazolam 0.5 mg tablet TAKE ONE TABLET BY MOUTH TWICE A DAY NEEDED MAXIMUM DAILY DOSE TWO TABLETS completed alprazolam 0.5 MG Oral Tablet [facility] ([facility]) Nortriptyline 25 MG Oral Capsule nortrip tyline 25 mg capsule TAKE ONE CAPSULE BY MOUTH EVERY DAY nortriptyline 25 mg capsule TAKE ONE CAPSULE BY MOUTH EVERY DAY completed nortriptyline 25 MG Oral Capsule [facility] ([facility]) pantoprazole 20 MG Delayed Release Oral Tablet pantoprazole 20 mg tablet,delayed release pantoprazole 20 mg tablet,delayed release completed pantoprazole 20 MG Delayed Release Oral Tablet [facility] ([facility]) doxycycline monohydrate 100 mg caps completed doxycycline monohydrate 100 mg caps [facility] ([facility]) methylprednisolone dose pack 4 mg tbpk completed methylprednisolone dose pack 4 mg tbpk [facility] ([facility]) gabapentin 300 mg caps completed gabapentin 300 mg caps [facility] ([facility]) methylprednisolone dose pack 4 mg tbpk completed methylprednisolone dose pack 4 mg tbpk [facility] ([facility]) methylprednisolone dose pack 4 mg tbpk completed methylprednisolone dose pack 4 mg tbpk [facility] ([facility]) clopidogrel 75 mg tabs completed clopidogrel 75 mg tabs [facility] ([facility]) tizanidine 4 MG Oral Tablet tizanidine 4 mg tablet tizanidine 4 mg ta blet completed tizanidine 4 MG Oral Tablet [facility] ([facility]) Sulfamethoxazole 800 MG / Trimethoprim 1 60 MG Oral Tablet sulfamethoxazole 800 mg-trimethoprim 160 mg tablet sulfamethoxazole 800 mg-trimethoprim 160 mg tablet completed sulfame thoxazole 800 MG / trimethoprim 160 MG Oral Tablet [facility] ([facility]) Sulfamethoxazole 800 MG / Trimethoprim 1 60 MG Oral Tablet sulfamethoxazole 800 mg-trimethoprim 160 mg tablet sulfamethoxazole 800 mg-trimethoprim 160 mg tablet completed sulfame thoxazole 800 MG / trimethoprim 160 MG Oral Tablet [facility] ([facility]) paroxetine hcl 30 mg tabs compl eted paroxetine hcl 30 mg tabs [facility] ([facility]) NITROFURANTOIN, MACROCRYSTALS 25 MG / Ni trofurantoin, Monohydrate 75 MG Oral Capsule nitrofurantoin monohydrate/macrocrystals 100 mg capsule nitrofurantoin monohydrate/macrocrystals 100 mg capsule completed nitrofurantoin, macrocrystals 25 MG / nitrofurantoin, monohydrate 75 MG Oral Capsule [facility] ([facility]) hydroco/apap tab 5-325mg completed hydroco/apap tab 5-325mg [facility] ([facility]) Acetaminophen 325 MG / Hydrocodone Sony trate 5 MG Oral Tablet hydrocodone 5 mg- acetaminophen 325 mg tablet hydrocodone 5 mg-acetaminophen 325 mg tablet completed acetaminophen 325 MG / hydrocodone bitartrate 5 MG Oral Tablet [facility] ([facility]) gabapentin 300 mg caps completed gabapentin 300 mg caps [facility] ([facility]) Lidocaine Hydrochloride 0.02 MG/MG Topical Gel lidocai ne HCl 2 % mucosal jelly lidocaine HCl 2 % mucosal jelly comple alyssa lidocaine hydrochloride 0.02 MG/MG Topical Gel [facility] ([facility]) carisoprodol 350 mg tabs completed carisoprodol 350 mg tabs [facility] ([facility]) Cyclobenzaprine hydrochloride 10 MG Oral Tablet cyclobenzaprine 10 mg tablet TAKE ONE TABLET BY MOUTH EVERY DAY AT BEDTIME cyclobenzaprine 10 mg tablet TAKE ONE TABLET BY MOUTH EVERY DAY AT BEDTIME completed cyclobenzaprine hydrochloride 10 MG Oral Tablet [facility] ([facility]) topiramate 100 mg tabs completed topiramate 100 mg tabs [facility] ([facility]) carisoprodol 350 mg tabs completed carisoprodol 350 mg tabs [facility] ([facility]) pantoprazole 20 MG Delayed Release Oral Tablet pantoprazole 20 mg tablet,delayed release pantoprazole 20 mg tablet,delayed release completed pantoprazole 20 MG Delayed Release Oral Tablet [facility] ([facility]) doxycycline monohydrate 100 mg caps completed doxycycline monohydrate 100 mg caps [facility] ([facility]) doxycycline monohydrate 100 mg caps completed doxycycline monohydrate 100 mg caps [facility] ([facility]) paroxetine hcl 30 mg tabs compl eted paroxetine hcl 30 mg tabs [facility] ([facility]) Trazodone Hydrochloride 50 MG Oral Tablet trazodone 50 mg tablet 1 tab daily trazodone 50 mg tablet 1 tab daily com pleted trazodone hydrochloride 50 MG Oral Tablet [facility] ([facility]) atorvastatin calcium 80 mg tabs completed atorvastatin calcium 80 mg tabs [facility] ([facility]) pantoprazole sodium 20 mg tbec completed pantoprazole sodium 20 mg tbec [facility] ([facility]) Lidocaine Hydrochloride 0.02 MG/MG Topical Gel lidocai ne HCl 2 % mucosal jelly lidocaine HCl 2 % mucosal jelly comple alyssa lidocaine hydrochloride 0.02 MG/MG Topical Gel [facility] ([facility]) Acetaminophen 325 MG / Hydrocodone Sony trate 5 MG Oral Tablet hydrocodone 5 mg- acetaminophen 325 mg tablet hydrocodone 5 mg-acetaminophen 325 mg tablet completed acetaminophen 325 MG / hydrocodone bitartrate 5 MG Oral Tablet [facility] ([facility]) Acetaminophen 325 MG / Hydrocodone Sony trate 5 MG Oral Tablet hydrocodone 5 mg- acetaminophen 325 mg tablet hydrocodone 5 mg-acetaminophen 325 mg tablet completed acetaminophen 325 MG / hydrocodone bitartrate 5 MG Oral Tablet [facility] ([facility]) methylprednisolone 4 mg tablets in a dose pack [id number] completed methylprednisolone 4 mg tablets in a dose pack [facility] ([facility]) lidocaine hcl jelly 2 % gel com pleted lidocaine hcl jelly 2 % gel [facility] ([facility]) tizanidine 4 MG Oral Tablet tizanidine 4 mg tablet tizanidine 4 mg ta blet completed tizanidine 4 MG Oral Tablet [facility] ([facility]) methylprednisolone 4 mg tablets in a dose pack [id number] completed methylprednisolone 4 mg tablets in a dose pack [facility] ([facility]) ipratropium/ tiff albuter completed ipratropium/ tiff albuter [facility] ([facility]) umeclidinium 0.0625 MG/ACTUAT / vilanter ol 0.025 MG/ACTUAT Dry Powder Inhaler Anoro Ellipta 62.5 mcg-25 mcg/actuation powder for inhalation INHALE ONE PUFF BY MOUTH EVERY DAY Anoro Ellipta 62.5 mcg-25 mcg/actuation powder for inhalation INHALE ONE PUFF BY MOUTH EVERY DAY com pleted umeclidinium 0.0625 MG/ACTUAT / vilanterol 0.025 MG/ACTUAT Dry Powder Inhaler [facility] ([facility]) ezetimibe 10 mg tabs completed ezetimibe 10 mg tabs [facility] ([facility]) Fluzone Quad [id number] (PF) 60 mcg (15 m cg x 4)/0.5 mL IM suspension INJECT DIRECTED [id number] completed 0.5 ML influenza A virus A/[facility]/[id number] (H1N1) antigen 0.03 MG/ML / influenza A virus A/[facility] (H3N2) antigen 0.03 MG/ML / influenza B virus B/[facility] antigen 0.03 MG/ML / influenza B virus B/[place] antigen 0.03 MG/ML Injection [Fluzone Quadrivalent [id number]] [facility] ([facility]) Trazodone Hydrochloride 50 MG Oral Tablet trazodone 50 mg tablet 1 tab daily trazodone 50 mg tablet 1 tab daily com pleted trazodone hydrochloride 50 MG Oral Tablet [facility] ([facility]) hydroco/apap tab 5-325mg completed hydroco/apap tab 5-325mg [facility] ([facility]) Cyclobenzaprine hydrochloride 10 MG Oral Tablet cyclobenzaprine 10 mg tablet TAKE ONE TABLET BY MOUTH EVERY DAY AT BEDTIME cyclobenzaprine 10 mg tablet TAKE ONE TABLET BY MOUTH EVERY DAY AT BEDTIME completed cyclobenzaprine hydrochloride 10 MG Oral Tablet [facility] ([facility]) atorvastatin calcium 80 mg tabs completed atorvastatin calcium 80 mg tabs [facility] ([facility]) tizanidine 4 MG Oral Tablet tizanidine 4 mg tablet tizanidine 4 mg ta blet completed tizanidine 4 MG Oral Tablet [facility] ([facility]) paroxetine hcl 30 mg tabs compl eted paroxetine hcl 30 mg tabs [facility] ([facility]) pantoprazole sodium 20 mg tbec completed pantoprazole sodium 20 mg tbec [facility] ([facility]) hydroco/apap tab 5-325mg completed hydroco/apap tab 5-325mg [facility] ([facility]) topiramate 100 mg tabs completed topiramate 100 mg tabs [facility] ([facility]) Ranitidine 150 MG Oral Tablet ranitidine 150 mg tablet ranit idine 150 mg tablet completed ranitidine 150 MG Oral Tablet [facility] ([facility]) ezetimibe 10 mg tabs completed ezetimibe 10 mg tabs [facility] ([facility]) hydroco/apap tab 5-325mg completed hydroco/apap tab 5-325mg [facility] ([facility]) Ranitidine 150 MG Oral Tablet ranitidine 150 mg tablet ranit idine 150 mg tablet completed ranitidine 150 MG Oral Tablet [facility] ([facility]) Acetaminophen 325 MG / Hydrocodone Sony trate 5 MG Oral Tablet hydrocodone 5 mg- acetaminophen 325 mg tablet hydrocodone 5 mg-acetaminophen 325 mg tablet completed acetaminophen 325 MG / hydrocodone bitartrate 5 MG Oral Tablet [facility] ([facility]) Doxycycline Monohydrate 100 MG Oral Caps ule doxycycline monohydrate 100 mg capsule doxycycline monohydrate 100 mg capsule completed doxycycline monohydrate 100 MG Oral Capsule [facility] ([facility]) pantoprazole sodium 20 mg tbec completed pantoprazole sodium 20 mg tbec [facility] ([facility]) paroxetine hcl 30 mg tabs compl eted paroxetine hcl 30 mg tabs [facility] ([facility]) carisoprodol 350 mg tabs completed carisoprodol 350 mg tabs [facility] ([facility]) Alprazolam 0.5 MG Oral Tablet alprazolam 0.5 mg tablet TAKE ONE TABLET BY MOUTH TWICE A DAY NEEDED MAXIMUM DAILY DOSE TWO TABLETS alprazolam 0.5 mg tablet TAKE ONE TABLET BY MOUTH TWICE A DAY NEEDED MAXIMUM DAILY DOSE TWO TABLETS completed alprazolam 0.5 MG Oral Tablet [facility] ([facility]) Trazodone Hydrochloride 50 MG Oral Tablet trazodone 50 mg tablet 1 tab daily trazodone 50 mg tablet 1 tab daily com pleted trazodone hydrochloride 50 MG Oral Tablet [facility] ([facility]) gabapentin 300 MG Oral Capsule gabapentin 300 mg capsu le gabapentin 300 mg capsule completed gabapentin 300 MG Oral Capsule [facility] ([facility]) Trazodone Hydrochloride 50 MG Oral Tablet trazodone 50 mg tablet 1 tab daily trazodone 50 mg tablet 1 tab daily com pleted trazodone hydrochloride 50 MG Oral Tablet [facility] ([facility]) gabapentin 400 mg caps completed gabapentin 400 mg caps [facility] ([facility]) fluticasone furoate 0.2 MG/ACTUAT Dry Po wder Inhaler Arnuity Ellipta 200 mcg/actuation powder for inhalation Arnuity Ellipta 200 mcg/actuation powder for inhalation completed flu ticasone furoate 0.2 MG/ACTUAT Dry Powder Inhaler [facility] ([facility]) ezetimibe 10 mg tabs completed ezetimibe 10 mg tabs [facility] ([facility]) tizanidine 4 MG Oral Tablet tizanidine 4 mg tablet tizanidine 4 mg ta blet completed tizanidine 4 MG Oral Tablet [facility] ([facility]) Ranitidine 150 MG Oral Tablet ranitidine 150 mg tablet ranit idine 150 mg tablet completed ranitidine 150 MG Oral Tablet [facility] ([facility]) famotidine 40 mg tabs completed famotidine 40 mg tabs [facility] ([facility]) carisoprodol 350 mg tabs completed carisoprodol 350 mg tabs [facility] ([facility]) hydroco/apap tab 5-325mg completed hydroco/apap tab 5-325mg [facility] ([facility]) atorvastatin calcium 80 mg tabs completed atorvastatin calcium 80 mg tabs [facility] ([facility]) pantoprazole 20 MG Delayed Release Oral Tablet pantoprazole 20 mg tablet,delayed release pantoprazole 20 mg tablet,delayed release completed pantoprazole 20 MG Delayed Release Oral Tablet [facility] ([facility]) hydroco/apap tab 5-325mg completed hydroco/apap tab 5-325mg [facility] ([facility]) Trazodone Hydrochloride 50 MG Oral Tablet trazodone 50 mg tablet 1 tab daily trazodone 50 mg tablet 1 tab daily com pleted trazodone hydrochloride 50 MG Oral Tablet [facility] ([facility]) paroxetine hcl 30 mg tabs compl eted paroxetine hcl 30 mg tabs [facility] ([facility]) umeclidinium 0.0625 MG/ACTUAT / vilanter ol 0.025 MG/ACTUAT Dry Powder Inhaler Anoro Ellipta 62.5 mcg-25 mcg/actuation powder for inhalation INHALE ONE PUFF BY MOUTH EVERY DAY Anoro Ellipta 62.5 mcg-25 mcg/actuation powder for inhalation INHALE ONE PUFF BY MOUTH EVERY DAY com pleted umeclidinium 0.0625 MG/ACTUAT / vilanterol 0.025 MG/ACTUAT Dry Powder Inhaler [facility] ([facility]) carisoprodol 350 mg tabs completed carisoprodol 350 mg tabs [facility] ([facility]) lidocaine hcl jelly 2 % gel com pleted lidocaine hcl jelly 2 % gel [facility] ([facility]) Prednisone 20 MG Oral Tablet prednisone 20 mg tablet prednisone 20 mg tablet completed prednisone 20 MG Oral Tablet [facility] ([facility]) pantoprazole 20 MG Delayed Release Oral Tablet pantoprazole 20 mg tablet,delayed release pantoprazole 20 mg tablet,delayed release completed pantoprazole 20 MG Delayed Release Oral Tablet [facility] ([facility]) umeclidinium 0.0625 MG/ACTUAT / vilanter ol 0.025 MG/ACTUAT Dry Powder Inhaler Anoro Ellipta 62.5 mcg-25 mcg/actuation powder for inhalation INHALE ONE PUFF BY MOUTH EVERY DAY Anoro Ellipta 62.5 mcg-25 mcg/actuation powder for inhalation INHALE ONE PUFF BY MOUTH EVERY DAY com pleted umeclidinium 0.0625 MG/ACTUAT / vilanterol 0.025 MG/ACTUAT Dry Powder Inhaler [facility] ([facility]) topiramate 100 mg tabs completed topiramate 100 mg tabs [facility] ([facility]) prednisone 20 mg tabs completed prednisone 20 mg tabs [facility] ([facility]) ipratropium/ tiff albuter completed ipratropium/ tiff albuter [facility] ([facility]) methylprednisolone dose pack 4 mg tbpk completed methylprednisolone dose pack 4 mg tbpk [facility] ([facility]) gabapentin 300 mg caps completed gabapentin 300 mg caps [facility] ([facility]) Omeprazole 20 MG Delayed Release Oral Ca psule omeprazole 20 mg capsule,delayed release TAKE ONE CAPSULE BY MOUTH EVERY DAY 30 MINUTES BEFORE MORNING MEAL NEEDED omeprazole 20 mg capsule,delayed release TAKE ONE CAPSULE BY MOUTH EVERY DAY 30 MINUTES BEFORE MORNING MEAL NEEDED completed omeprazole 20 MG Delayed Release Oral Capsule [facility] ([facility]) Ranitidine 150 MG Oral Tablet ranitidine 150 mg tablet ranit idine 150 mg tablet completed ranitidine 150 MG Oral Tablet [facility] ([facility]) Lidocaine Hydrochloride 0.02 MG/MG Topical Gel lidocai ne HCl 2 % mucosal jelly lidocaine HCl 2 % mucosal jelly comple alyssa lidocaine hydrochloride 0.02 MG/MG Topical Gel [facility] ([facility]) ipratropium/ tiff albuter completed ipratropium/ tiff albuter [facility] ([facility]) methylprednisolone 4 mg tablets in a dose pack [id number] completed methylprednisolone 4 mg tablets in a dose pack [facility] ([facility]) Omeprazole 20 MG Delayed Release Oral Ca psule omeprazole 20 mg capsule,delayed release TAKE ONE CAPSULE BY MOUTH EVERY DAY 30 MINUTES BEFORE MORNING MEAL NEEDED omeprazole 20 mg capsule,delayed release TAKE ONE CAPSULE BY MOUTH EVERY DAY 30 MINUTES BEFORE MORNING MEAL NEEDED completed omeprazole 20 MG Delayed Release Oral Capsule [facility] ([facility]) paroxetine hcl 30 mg tabs compl eted paroxetine hcl 30 mg tabs [facility] ([facility]) gabapentin 100 MG Oral Capsule gabapentin 100 mg capsu le gabapentin 100 mg capsule completed gabapentin 100 MG Oral Capsule [facility] ([facility]) clopidogrel 75 mg tabs completed clopidogrel 75 mg tabs [facility] ([facility]) Albuterol 0.833 MG/ML / Ipratropium Brom simin 0.167 MG/ML Inhalant Solution ipratropium 0.5 mg-albuterol 3 mg (2.5 mg base)/3 mL nebulization soln twice a day as needed ipratropium 0.5 mg-albuterol 3 mg (2.5 m g base)/3 mL nebulization soln twice a day as needed completed albuterol 0.833 MG/ML / ipratropium bromide 0.167 MG/ML Inhalation Solution [facility] ([facility]) paroxetine hcl 30 mg tabs compl eted paroxetine hcl 30 mg tabs [facility] ([facility]) methylprednisolone dose pack 4 mg tbpk completed methylprednisolone dose pack 4 mg tbpk [facility] ([facility]) lidocaine hcl jelly 2 % gel com pleted lidocaine hcl jelly 2 % gel [facility] ([facility]) fluticasone furoate 0.2 MG/ACTUAT Dry Po wder Inhaler Arnuity Ellipta 200 mcg/actuation powder for inhalation Arnuity Ellipta 200 mcg/actuation powder for inhalation completed flu ticasone furoate 0.2 MG/ACTUAT Dry Powder Inhaler [facility] ([facility]) methylprednisolone dose pack 4 mg tbpk completed methylprednisolone dose pack 4 mg tbpk [facility] ([facility]) ipratropium/ tiff albuter completed ipratropium/ tiff albuter [facility] ([facility]) gabapentin 400 mg caps completed gabapentin 400 mg caps [facility] ([facility]) NITROFURANTOIN, MACROCRYSTALS 25 MG / Ni trofurantoin, Monohydrate 75 MG Oral Capsule nitrofurantoin monohydrate/macrocrystals 100 mg capsule nitrofurantoin monohydrate/macrocrystals 100 mg capsule completed nitrofurantoin, macrocrystals 25 MG / nitrofurantoin, monohydrate 75 MG Oral Capsule [facility] ([facility]) gabapentin 400 mg caps completed gabapentin 400 mg caps [facility] ([facility]) Carisoprodol 350 MG Oral Tablet carisopr odol 350 mg tablet Take 1 tablet 3 times a day by oral route as needed for 5 days. carisoprodol 350 mg tablet Take 1 tablet 3 times a day by oral route as needed for 5 days. 1 completed carisoprodol 350 MG Oral Tablet [facility] ( [facility]) pantoprazole 20 MG Delayed Release Oral Tablet pantoprazole 20 mg tablet,delayed release pantoprazole 20 mg tablet,delayed release completed pantoprazole 20 MG Delayed Release Oral Tablet [facility] ([facility]) topiramate 100 mg tabs completed topiramate 100 mg tabs [facility] ([facility]) Alprazolam 0.5 MG Oral Tablet alprazolam 0.5 mg tablet TAKE ONE TABLET BY MOUTH TWICE A DAY NEEDED MAXIMUM DAILY DOSE TWO TABLETS alprazolam 0.5 mg tablet TAKE ONE TABLET BY MOUTH TWICE A DAY NEEDED MAXIMUM DAILY DOSE TWO TABLETS completed alprazolam 0.5 MG Oral Tablet [facility] ([facility]) lidocaine hcl jelly 2 % gel com pleted lidocaine hcl jelly 2 % gel [facility] ([facility]) fluticasone furoate 0.2 MG/ACTUAT Dry Po wder Inhaler Arnuity Ellipta 200 mcg/actuation powder for inhalation Arnuity Ellipta 200 mcg/actuation powder for inhalation completed flu ticasone furoate 0.2 MG/ACTUAT Dry Powder Inhaler [facility] ([facility]) omeprazole 20 mg cpdr completed omeprazole 20 mg cpdr [place]AL[place] ([facility]) lidocaine hcl jelly 2 % gel com pleted lidocaine hcl jelly 2 % gel [facility] ([facility]) clopidogrel 75 mg tabs completed clopidogrel 75 mg tabs [facility] ([facility]) Ranitidine 150 MG Oral Tablet ranitidine 150 mg tablet ranit idine 150 mg tablet completed ranitidine 150 MG Oral Tablet [facility] ([facility]) tizanidine hydrochloride 4 mg tabs completed tizanidine hydrochloride 4 mg tabs [facility] ([facility]) methylprednisolone dose pack 4 mg tbpk completed methylprednisolone dose pack 4 mg tbpk [facility] ([facility]) fluticasone furoate 0.2 MG/ACTUAT Dry Po wder Inhaler Arnuity Ellipta 200 mcg/actuation powder for inhalation Arnuity Ellipta 200 mcg/actuation powder for inhalation completed flu ticasone furoate 0.2 MG/ACTUAT Dry Powder Inhaler [facility] ([facility]) ezetimibe 10 mg tabs completed ezetimibe 10 mg tabs [facility] ([facility]) methylprednisolone dose pack 4 mg tbpk completed methylprednisolone dose pack 4 mg tbpk [facility] ([facility]) ipratropium/ tiff albuter completed ipratropium/ tiff albuter [facility] ([facility]) lidocaine 5 % topical patch [id number] com pleted lidocaine 0.05 MG/MG Medicated Patch [facility] ([facility]) umeclidinium 0.0625 MG/ACTUAT / vilanter ol 0.025 MG/ACTUAT Dry Powder Inhaler Anoro Ellipta 62.5 mcg-25 mcg/actuation powder for inhalation INHALE ONE PUFF BY MOUTH EVERY DAY Anoro Ellipta 62.5 mcg-25 mcg/actuation powder for inhalation INHALE ONE PUFF BY MOUTH EVERY DAY com pleted umeclidinium 0.0625 MG/ACTUAT / vilanterol 0.025 MG/ACTUAT Dry Powder Inhaler [facility] ([facility]) Acetaminophen 325 MG / Hydrocodone Sony trate 5 MG Oral Tablet hydrocodone 5 mg- acetaminophen 325 mg tablet hydrocodone 5 mg-acetaminophen 325 mg tablet completed acetaminophen 325 MG / hydrocodone bitartrate 5 MG Oral Tablet [facility] ([facility]) tizanidine hydrochloride 4 mg tabs completed tizanidine hydrochloride 4 mg tabs [facility] ([facility]) gabapentin 300 mg caps completed gabapentin 300 mg caps [facility] ([facility]) atorvastatin calcium 80 mg tabs completed atorvastatin calcium 80 mg tabs [facility] ([facility]) Prednisone 20 MG Oral Tablet prednisone 20 mg tablet prednisone 20 mg tablet completed prednisone 20 MG Oral Tablet [facility] ([facility]) Ranitidine 150 MG Oral Tablet ranitidine 150 mg tablet ranit idine 150 mg tablet completed ranitidine 150 MG Oral Tablet [facility] ([facility]) Carisoprodol 350 MG Oral Tablet carisopr odol 350 mg tablet Take 1 tablet 3 times a day by oral route as needed for 5 days. carisoprodol 350 mg tablet Take 1 tablet 3 times a day by oral route as needed for 5 days. 1 completed carisoprodol 350 MG Oral Tablet [facility] ( [facility]) pantoprazole sodium 20 mg tbec completed pantoprazole sodium 20 mg tbec [facility] ([facility]) Phenazopyridine hydrochloride 200 MG Ora l Tablet phenazopyridine 200 mg tablet TAKE ONE TABLET BY MOUTH THREE TIMES A DAY AFTER MEALS phenazopyridine 200 mg tablet TAKE ONE TABLET BY MOUTH THREE TIMES A DAY AFTER MEALS completed phenazopyridine hydrochloride 20 0 MG Oral Tablet [facility] ([facility]) Doxycycline Monohydrate 100 MG Oral Caps ule doxycycline monohydrate 100 mg capsule doxycycline monohydrate 100 mg capsule completed Doxycycline Monohydrate 100 MG Oral Capsule [facility] ([facility]) Trazodone Hydrochloride 50 MG Oral Tablet trazodone 50 mg tablet 1 tab daily trazodone 50 mg tablet 1 tab daily com pleted trazodone hydrochloride 50 MG Oral Tablet [facility] ([facility]) ezetimibe 10 mg tabs completed ezetimibe 10 mg tabs [facility] ([facility]) Acetaminophen 325 MG / Hydrocodone Sony trate 5 MG Oral Tablet hydrocodone 5 mg- acetaminophen 325 mg tablet hydrocodone 5 mg-acetaminophen 325 mg tablet completed acetaminophen 325 MG / hydrocodone bitartrate 5 MG Oral Tablet [facility] ([facility]) gabapentin 300 MG Oral Capsule gabapentin 300 mg capsu le gabapentin 300 mg capsule completed gabapentin 300 MG Oral Capsule [facility] ([facility]) methylprednisolone dose pack 4 mg tbpk completed methylprednisolone dose pack 4 mg tbpk [facility] ([facility]) famotidine 40 mg tabs completed famotidine 40 mg tabs [facility] ([facility]) pantoprazole sodium 20 mg tbec completed pantoprazole sodium 20 mg tbec [facility] ([facility]) prednisone 20 mg tabs completed prednisone 20 mg tabs [facility] ([facility]) carisoprodol 350 mg tabs completed carisoprodol 350 mg tabs [facility] ([facility]) Alprazolam 0.5 MG Oral Tablet alprazolam 0.5 mg tablet TAKE ONE TABLET BY MOUTH TWICE A DAY NEEDED MAXIMUM DAILY DOSE TWO TABLETS alprazolam 0.5 mg tablet TAKE ONE TABLET BY MOUTH TWICE A DAY NEEDED MAXIMUM DAILY DOSE TWO TABLETS completed alprazolam 0.5 MG Oral Tablet [facility] ([facility]) umeclidinium 0.0625 MG/ACTUAT / vilanter ol 0.025 MG/ACTUAT Dry Powder Inhaler Anoro Ellipta 62.5 mcg-25 mcg/actuation powder for inhalation INHALE ONE PUFF BY MOUTH EVERY DAY Anoro Ellipta 62.5 mcg-25 mcg/actuation powder for inhalation INHALE ONE PUFF BY MOUTH EVERY DAY com pleted umeclidinium 0.0625 MG/ACTUAT / vilanterol 0.025 MG/ACTUAT Dry Powder Inhaler [facility] ([facility]) clopidogrel 75 mg tabs completed clopidogrel 75 mg tabs [facility] ([facility]) alprazolam 0.5 mg tabs completed alprazolam 0.5 mg tabs [facility] ([facility]) gabapentin 100 MG Oral Capsule gabapentin 100 mg capsu le gabapentin 100 mg capsule completed gabapentin 100 MG Oral Capsule [facility] ([facility]) Acetaminophen 325 MG / Hydrocodone Sony trate 5 MG Oral Tablet hydrocodone 5 mg- acetaminophen 325 mg tablet hydrocodone 5 mg-acetaminophen 325 mg tablet completed acetaminophen 325 MG / hydrocodone bitartrate 5 MG Oral Tablet [facility] ([facility]) gabapentin 300 mg caps completed gabapentin 300 mg caps [facility] ([facility]) clopidogrel 75 mg tabs completed clopidogrel 75 mg tabs [facility] ([facility]) Nortriptyline 25 MG Oral Capsule nortrip tyline 25 mg capsule TAKE ONE CAPSULE BY MOUTH EVERY DAY nortriptyline 25 mg capsule TAKE ONE CAPSULE BY MOUTH EVERY DAY completed nortriptyline 25 MG Oral Capsule [facility] ([facility]) paroxetine hcl 30 mg tabs compl eted paroxetine hcl 30 mg tabs [facility] ([facility]) famotidine 40 mg tabs completed famotidine 40 mg tabs [facility] ([facility]) alprazolam 0.5 mg tabs completed alprazolam 0.5 mg tabs [facility] ([facility]) Omeprazole 20 MG Delayed Release Oral Ca psule omeprazole 20 mg capsule,delayed release TAKE ONE CAPSULE BY MOUTH EVERY DAY 30 MINUTES BEFORE MORNING MEAL NEEDED omeprazole 20 mg capsule,delayed release TAKE ONE CAPSULE BY MOUTH EVERY DAY 30 MINUTES BEFORE MORNING MEAL NEEDED completed omeprazole 20 MG Delayed Release Oral Capsule [facility] ([facility]) paroxetine hcl 30 mg tabs compl eted paroxetine hcl 30 mg tabs [facility] ([facility]) Sulfamethoxazole 800 MG / Trimethoprim 1 60 MG Oral Tablet sulfamethoxazole 800 mg-trimethoprim 160 mg tablet sulfamethoxazole 800 mg-trimethoprim 160 mg tablet completed sulfame thoxazole 800 MG / trimethoprim 160 MG Oral Tablet [facility] ([facility]) Famotidine 40 MG Oral Tablet famotidine 40 mg tablet famotidine 40 mg tablet completed famotidine 40 MG Oral Tablet [facility] ([facility]) Baclofen 10 MG Oral Tablet baclofen 10 mg tablet baclofen 10 mg tablet completed Baclofen 10 MG Oral Table t [facility] ([facility]) Sulfamethoxazole 800 MG / Trimethoprim 1 60 MG Oral Tablet sulfamethoxazole 800 mg-trimethoprim 160 mg tablet sulfamethoxazole 800 mg-trimethoprim 160 mg tablet completed sulfame thoxazole 800 MG / trimethoprim 160 MG Oral Tablet [facility] ([facility]) gabapentin 300 mg caps completed gabapentin 300 mg caps [facility] ([facility]) Nortriptyline 25 MG Oral Capsule nortrip tyline 25 mg capsule TAKE ONE CAPSULE BY MOUTH EVERY DAY nortriptyline 25 mg capsule TAKE ONE CAPSULE BY MOUTH EVERY DAY completed nortriptyline 25 MG Oral Capsule [facility] ([facility]) ezetimibe 10 mg tabs completed ezetimibe 10 mg tabs [facility] ([facility]) ezetimibe 10 mg tabs completed ezetimibe 10 mg tabs [facility] ([facility]) prednisone 20 mg tabs completed prednisone 20 mg tabs [facility] ([facility]) omeprazole 20 mg cpdr completed omeprazole 20 mg cpdr [facility] ([facility]) methylprednisolone dose pack 4 mg tbpk completed methylprednisolone dose pack 4 mg tbpk [facility] ([facility]) hydroco/apap tab 5-325mg completed hydroco/apap tab 5-325mg [facility] ([facility]) NITROFURANTOIN, MACROCRYSTALS 25 MG / Ni trofurantoin, Monohydrate 75 MG Oral Capsule nitrofurantoin monohydrate/macrocrystals 100 mg capsule nitrofurantoin monohydrate/macrocrystals 100 mg capsule completed nitrofurantoin, macrocrystals 25 MG / nitrofurantoin, monohydrate 75 MG Oral Capsule [facility] ([facility]) ipratropium/ tiff albuter completed ipratropium/ tiff albuter POL[facility] ([facility]) Ranitidine 150 MG Oral Tablet ranitidine 150 mg tablet ranit idine 150 mg tablet completed ranitidine 150 MG Oral Tablet [facility] ([facility]) famotidine 40 mg tabs completed famotidine 40 mg tabs [facility] ([facility]) tizanidine hydrochloride 4 mg tabs completed tizanidine hydrochloride 4 mg tabs [facility] ([facility]) NITROFURANTOIN, MACROCRYSTALS 25 MG / Ni trofurantoin, Monohydrate 75 MG Oral Capsule nitrofurantoin monohydrate/macrocrystals 100 mg capsule nitrofurantoin monohydrate/macrocrystals 100 mg capsule completed nitrofurantoin, macrocrystals 25 MG / nitrofurantoin, monohydrate 75 MG Oral Capsule [facility] ([facility]) Prednisone 20 MG Oral Tablet prednisone 20 mg tablet prednisone 20 mg tablet completed Prednisone 20 MG Oral Tablet [facility] ([facility]) tizanidine hydrochloride 4 mg tabs completed tizanidine hydrochloride 4 mg tabs [facility] ([facility]) pantoprazole sodium 20 mg tbec completed pantoprazole sodium 20 mg tbec [facility] ([facility]) famotidine 40 mg tabs completed famotidine 40 mg tabs [facility] ([facility]) doxycycline monohydrate 100 mg caps completed doxycycline monohydrate 100 mg caps [facility] ([facility]) Prednisone 20 MG Oral Tablet prednisone 20 mg tablet prednisone 20 mg tablet completed prednisone 20 MG Oral Tablet [facility] ([facility]) gabapentin 400 mg caps completed gabapentin 400 mg caps [facility] ([facility]) gabapentin 300 mg caps completed gabapentin 300 mg caps [facility] ([facility]) atorvastatin calcium 80 mg tabs completed atorvastatin calcium 80 mg tabs [facility] ([facility]) alprazolam 0.5 mg tabs completed alprazolam 0.5 mg tabs [facility] ([facility]) Acetaminophen 325 MG / Hydrocodone Sony trate 5 MG Oral Tablet hydrocodone 5 mg- acetaminophen 325 mg tablet hydrocodone 5 mg-acetaminophen 325 mg tablet completed acetaminophen 325 MG / hydrocodone bitartrate 5 MG Oral Tablet [facility] ([facility]) ipratropium/ tiff albuter completed ipratropium/ tiff albuter POL[facility] ([facility]) Nortriptyline 25 MG Oral Capsule nortrip tyline 25 mg capsule TAKE ONE CAPSULE BY MOUTH EVERY DAY nortriptyline 25 mg capsule TAKE ONE CAPSULE BY MOUTH EVERY DAY completed nortriptyline 25 MG Oral Capsule [facility] ([facility]) Nortriptyline 25 MG Oral Capsule nortrip tyline 25 mg capsule TAKE ONE CAPSULE BY MOUTH EVERY DAY nortriptyline 25 mg capsule TAKE ONE CAPSULE BY MOUTH EVERY DAY completed nortriptyline 25 MG Oral Capsule [facility] ([facility]) Prednisone 20 MG Oral Tablet prednisone 20 mg tablet prednisone 20 mg tablet completed prednisone 20 MG Oral Tablet [facility] ([facility]) omeprazole 20 mg cpdr completed omeprazole 20 mg cpdr [facility] ([facility]) Prednisone 20 MG Oral Tablet prednisone 20 mg tablet prednisone 20 mg tablet completed prednisone 20 MG Oral Tablet [facility] ([facility]) omeprazole 20 mg cpdr completed omeprazole 20 mg cpdr [facility] ([facility]) Phenazopyridine hydrochloride 200 MG Ora l Tablet phenazopyridine 200 mg tablet TAKE ONE TABLET BY MOUTH THREE TIMES A DAY AFTER MEALS phenazopyridine 200 mg tablet TAKE ONE TABLET BY MOUTH THREE TIMES A DAY AFTER MEALS completed phenazopyridine hydrochloride 20 0 MG Oral Tablet [facility] ([facility]) gabapentin 300 MG Oral Capsule gabapentin 300 mg capsu le gabapentin 300 mg capsule completed gabapentin 300 MG Oral Capsule [facility] ([facility]) lidocaine 5 % topical patch [id number] com pleted lidocaine 0.05 MG/MG Medicated Patch POLO ([facility]) Ranitidine 150 MG Oral Tablet ranitidine 150 mg tablet ranit idine 150 mg tablet completed ranitidine 150 MG Oral Tablet [facility] ([facility]) hydroco/apap tab 5-325mg completed hydroco/apap tab 5-325mg [facility] ([facility]) Trazodone Hydrochloride 50 MG Oral Tablet trazodone 50 mg tablet 1 tab daily trazodone 50 mg tablet 1 tab daily com pleted trazodone hydrochloride 50 MG Oral Tablet [facility] ([facility]) gabapentin 300 mg caps completed gabapentin 300 mg caps [facility] ([facility]) famotidine 40 mg tabs completed famotidine 40 mg tabs [facility] ([facility]) Albuterol 0.833 MG/ML / Ipratropium Brom simin 0.167 MG/ML Inhalant Solution ipratropium 0.5 mg-albuterol 3 mg (2.5 mg base)/3 mL nebulization soln twice a day as needed ipratropium 0.5 mg-albuterol 3 mg (2.5 m g base)/3 mL nebulization soln twice a day as needed completed albuterol 0.833 MG/ML / ipratropium bromide 0.167 MG/ML Inhalation Solution [facility] ([facility]) prednisone 20 mg tabs completed prednisone 20 mg tabs [facility] ([facility]) gabapentin 300 mg caps completed gabapentin 300 mg caps [facility] ([facility]) gabapentin 400 mg caps completed gabapentin 400 mg caps [facility] ([facility]) Prednisone 20 MG Oral Tablet prednisone 20 mg tablet prednisone 20 mg tablet completed prednisone 20 MG Oral Tablet [facility] ([facility]) omeprazole 20 mg cpdr completed omeprazole 20 mg cpdr [facility] ([facility]) Phenazopyridine hydrochloride 200 MG Ora l Tablet phenazopyridine 200 mg tablet TAKE ONE TABLET BY MOUTH THREE TIMES A DAY AFTER MEALS phenazopyridine 200 mg tablet TAKE ONE TABLET BY MOUTH THREE TIMES A DAY AFTER MEALS completed phenazopyridine hydrochloride 20 0 MG Oral Tablet [facility] ([facility]) pantoprazole sodium 20 mg tbec completed pantoprazole sodium 20 mg tbec [facility] ([facility]) atorvastatin calcium 80 mg tabs completed atorvastatin calcium 80 mg tabs [facility] ([facility]) Ranitidine 150 MG Oral Tablet ranitidine 150 mg tablet ranit idine 150 mg tablet completed ranitidine 150 MG Oral Tablet [facility] ([facility]) Phenazopyridine hydrochloride 200 MG Ora l Tablet phenazopyridine 200 mg tablet TAKE ONE TABLET BY MOUTH THREE TIMES A DAY AFTER MEALS phenazopyridine 200 mg tablet TAKE ONE TABLET BY MOUTH THREE TIMES A DAY AFTER MEALS completed phenazopyridine hydrochloride 20 0 MG Oral Tablet [facility] ([facility]) Doxycycline Monohydrate 100 MG Oral Caps ule doxycycline monohydrate 100 mg capsule doxycycline monohydrate 100 mg capsule completed doxycycline monohydrate 100 MG Oral Capsule [facility] ([facility]) Doxycycline Monohydrate 100 MG Oral Caps ule doxycycline monohydrate 100 mg capsule doxycycline monohydrate 100 mg capsule completed doxycycline monohydrate 100 MG Oral Capsule [facility] ([facility]) Doxycycline Monohydrate 100 MG Oral Caps ule doxycycline monohydrate 100 mg capsule doxycycline monohydrate 100 mg capsule completed doxycycline monohydrate 100 MG Oral Capsule [facility] ([facility]) lidocaine hcl jelly 2 % gel com pleted lidocaine hcl jelly 2 % gel POLO ([facility]) lidocaine hcl jelly 2 % gel com pleted lidocaine hcl jelly 2 % gel [facility]O ([facility]) tizanidine hydrochloride 4 mg tabs completed tizanidine hydrochloride 4 mg tabs POL[facility] ([facility]) Nortriptyline 25 MG Oral Capsule nortrip tyline 25 mg capsule TAKE ONE CAPSULE BY MOUTH EVERY DAY nortriptyline 25 mg capsule TAKE ONE CAPSULE BY MOUTH EVERY DAY completed nortriptyline 25 MG Oral Capsule [facility] ([facility]) atorvastatin calcium 80 mg tabs completed atorvastatin calcium 80 mg tabs [facility] ([facility]) famotidine 40 mg tabs completed famotidine 40 mg tabs [facility] ([facility]) Ranitidine 150 MG Oral Tablet ranitidine 150 mg tablet ranit idine 150 mg tablet completed ranitidine 150 MG Oral Tablet [facility] ([facility]) alprazolam 0.5 mg tabs completed alprazolam 0.5 mg tabs [facility] ([facility]) Ranitidine 150 MG Oral Tablet ranitidine 150 mg tablet ranit idine 150 mg tablet completed ranitidine 150 MG Oral Tablet [facility] ([facility]) alprazolam 0.5 mg tabs completed alprazolam 0.5 mg tabs [facility] ([facility]) Nortriptyline 25 MG Oral Capsule nortrip tyline 25 mg capsule TAKE ONE CAPSULE BY MOUTH EVERY DAY nortriptyline 25 mg capsule TAKE ONE CAPSULE BY MOUTH EVERY DAY completed nortriptyline 25 MG Oral Capsule [facility] ([facility]) Trazodone Hydrochloride 50 MG Oral Tablet trazodone 50 mg tablet 1 tab daily trazodone 50 mg tablet 1 tab daily com pleted trazodone hydrochloride 50 MG Oral Tablet [facility] ([facility]) Baclofen 10 MG Oral Tablet baclofen 10 mg tablet baclofen 10 mg tablet completed baclofen 10 MG Oral Table t [facility] ([facility]) Lidocaine Hydrochloride 0.02 MG/MG Topical Gel lidocai ne HCl 2 % mucosal jelly lidocaine HCl 2 % mucosal jelly comple alyssa lidocaine hydrochloride 0.02 MG/MG Topical Gel [facility] ([facility]) ezetimibe 10 mg tabs completed ezetimibe 10 mg tabs [facility] ([facility]) lidocaine 5 % topical patch [id number] com pleted lidocaine 0.05 MG/MG Medicated Patch [facility] ([facility]) Omeprazole 20 MG Delayed Release Oral Ca psule omeprazole 20 mg capsule,delayed release TAKE ONE CAPSULE BY MOUTH EVERY DAY 30 MINUTES BEFORE MORNING MEAL NEEDED omeprazole 20 mg capsule,delayed release TAKE ONE CAPSULE BY MOUTH EVERY DAY 30 MINUTES BEFORE MORNING MEAL NEEDED completed omeprazole 20 MG Delayed Release Oral Capsule [facility] ([facility]) clopidogrel 75 mg tabs completed clopidogrel 75 mg tabs POLO ([facility]) Lidocaine Hydrochloride 0.02 MG/MG Topical Gel lidocai ne HCl 2 % mucosal jelly lidocaine HCl 2 % mucosal jelly comple alyssa lidocaine hydrochloride 0.02 MG/MG Topical Gel POLO ([facility]) Sulfamethoxazole 800 MG / Trimethoprim 1 60 MG Oral Tablet sulfamethoxazole 800 mg-trimethoprim 160 mg tablet sulfamethoxazole 800 mg-trimethoprim 160 mg tablet completed sulfame thoxazole 800 MG / trimethoprim 160 MG Oral Tablet [facility] ([facility]) doxycycline monohydrate 100 mg caps completed doxycycline monohydrate 100 mg caps [facility] ([facility]) ipratropium/ tiff albuter completed ipratropium/ tiff albuter [facility] ([facility]) Carisoprodol 350 MG Oral Tablet carisopr odol 350 mg tablet Take 1 tablet 3 times a day by oral route as needed for 5 days. carisoprodol 350 mg tablet Take 1 tablet 3 times a day by oral route as needed for 5 days. 1 completed carisoprodol 350 MG Oral Tablet POL[facility] ( [facility]) gabapentin 400 mg caps completed gabapentin 400 mg caps POL[facility] ([facility]) lidocaine 5 % topical patch [id number] com pleted lidocaine 0.05 MG/MG Medicated Patch POL[facility] ([facility]) fluticasone furoate 0.2 MG/ACTUAT Dry Po wder Inhaler Arnuity Ellipta 200 mcg/actuation powder for inhalation Arnuity Ellipta 200 mcg/actuation powder for inhalation completed flu ticasone furoate 0.2 MG/ACTUAT Dry Powder Inhaler POL[facility] ([facility]) Lidocaine Hydrochloride 0.02 MG/MG Topical Gel lidocai ne HCl 2 % mucosal jelly lidocaine HCl 2 % mucosal jelly comple alyssa lidocaine hydrochloride 0.02 MG/MG Topical Gel [facility] ([facility]) hydroco/apap tab 5-325mg completed hydroco/apap tab 5-325mg [facility] ([facility]) gabapentin 400 mg caps completed gabapentin 400 mg caps POLO ([facility]) tizanidine hydrochloride 4 mg tabs completed tizanidine hydrochloride 4 mg tabs [facility] ([facility]) tizanidine hydrochloride 4 mg tabs completed tizanidine hydrochloride 4 mg tabs POOL ([facility]) clopidogrel 75 mg tabs completed clopidogrel 75 mg tabs POLO ([facility]) Acetaminophen 325 MG / Hydrocodone Sony trate 5 MG Oral Tablet hydrocodone 5 mg- acetaminophen 325 mg tablet hydrocodone 5 mg-acetaminophen 325 mg tablet completed acetaminophen 325 MG / hydrocodone bitartrate 5 MG Oral Tablet [facility] ([facility]) fluticasone furoate 0.2 MG/ACTUAT Dry Po wder Inhaler Arnuity Ellipta 200 mcg/actuation powder for inhalation Arnuity Ellipta 200 mcg/actuation powder for inhalation completed flu ticasone furoate 0.2 MG/ACTUAT Dry Powder Inhaler POLO ([facility]) lidocaine hcl jelly 2 % gel com pleted lidocaine hcl jelly 2 % gel [facility] ([facility]) pantoprazole 20 MG Delayed Release Oral Tablet pantoprazole 20 mg tablet,delayed release pantoprazole 20 mg tablet,delayed release completed pantoprazole 20 MG Delayed Release Oral Tablet [facility] ([facility]) Albuterol 0.833 MG/ML / Ipratropium Brom simni 0.167 MG/ML Inhalant Solution ipratropium 0.5 mg-albuterol 3 mg (2.5 mg base)/3 mL nebulization soln twice a day as needed ipratropium 0.5 mg-albuterol 3 mg (2.5 m g base)/3 mL nebulization soln twice a day as needed completed albuterol 0.833 MG/ML / ipratropium bromide 0.167 MG/ML Inhalation Solution POLO ([facility] [place]) Doxycycline Monohydrate 100 MG Oral Caps ule doxycycline monohydrate 100 mg capsule doxycycline monohydrate 100 mg capsule completed Doxycycline Monohydrate 100 MG Oral Capsule [facility] ([facility]) Cyclobenzaprine hydrochloride 10 MG Oral Tablet cyclobenzaprine 10 mg tablet TAKE ONE TABLET BY MOUTH EVERY DAY AT BEDTIME cyclobenzaprine 10 mg tablet TAKE ONE TABLET BY MOUTH EVERY DAY AT BEDTIME completed cyclobenzaprine hydrochloride 10 MG Oral Tablet [facility] ([facility]) Prednisone 20 MG Oral Tablet prednisone 20 mg tablet prednisone 20 mg tablet completed prednisone 20 MG Oral Tablet [facility] ([facility]) hydroco/apap tab 5-325mg completed hydroco/apap tab 5-325mg POLO ([facility]) topiramate 100 mg tabs completed topiramate 100 mg tabs [facility] ([facility]) topiramate 100 mg tabs completed topiramate 100 mg tabs [facility] ([facility]) ezetimibe 10 mg tabs completed ezetimibe 10 mg tabs [facility] ([facility]) pantoprazole sodium 20 mg tbec completed pantoprazole sodium 20 mg tbec [facility] ([facility]) fluticasone furoate 0.2 MG/ACTUAT Dry Po wder Inhaler Arnuity Ellipta 200 mcg/actuation powder for inhalation Arnuity Ellipta 200 mcg/actuation powder for inhalation completed flu ticasone furoate 0.2 MG/ACTUAT Dry Powder Inhaler POL[facility] ([facility]) omeprazole 20 mg cpdr completed omeprazole 20 mg cpdr [facility] ([facility]) ipratropium/ tiff albuter completed ipratropium/ tiff albuter POLO ([facility]) clopidogrel 75 mg tabs completed clopidogrel 75 mg tabs POLO ([facility]) Ranitidine 150 MG Oral Tablet ranitidine 150 mg tablet ranit idine 150 mg tablet completed ranitidine 150 MG Oral Tablet POLO ([facility]) Prednisone 20 MG Oral Tablet prednisone 20 mg tablet prednisone 20 mg tablet completed prednisone 20 MG Oral Tablet POLO ([facility]) carisoprodol 350 mg tabs completed carisoprodol 350 mg tabs [facility] ([facility]) tizanidine hydrochloride 4 mg tabs completed tizanidine hydrochloride 4 mg tabs POLO ([facility]) Omeprazole 20 MG Delayed Release Oral Ca psule omeprazole 20 mg capsule,delayed release TAKE ONE CAPSULE BY MOUTH EVERY DAY 30 MINUTES BEFORE MORNING MEAL NEEDED omeprazole 20 mg capsule,delayed release TAKE ONE CAPSULE BY MOUTH EVERY DAY 30 MINUTES BEFORE MORNING MEAL NEEDED completed omeprazole 20 MG Delayed Release Oral Capsule POL[facility] ([facility]) clopidogrel 75 mg tabs completed clopidogrel 75 mg tabs POL[facility] ([facility]) Albuterol 0.833 MG/ML / Ipratropium Brom simin 0.167 MG/ML Inhalant Solution ipratropium 0.5 mg-albuterol 3 mg (2.5 mg base)/3 mL nebulization soln twice a day as needed ipratropium 0.5 mg-albuterol 3 mg (2.5 m g base)/3 mL nebulization soln twice a day as needed completed albuterol 0.833 MG/ML / ipratropium bromide 0.167 MG/ML Inhalation Solution POLO ([facility]) Ranitidine 150 MG Oral Tablet ranitidine 150 mg tablet ranit idine 150 mg tablet completed ranitidine 150 MG Oral Tablet POL[facility] ([facility]) carisoprodol 350 mg tabs completed carisoprodol 350 mg tabs POL[facility] ([facility]) topiramate 100 mg tabs completed topiramate 100 mg tabs POLO ([facility]) Nortriptyline 25 MG Oral Capsule nortrip tyline 25 mg capsule TAKE ONE CAPSULE BY MOUTH EVERY DAY nortriptyline 25 mg capsule TAKE ONE CAPSULE BY MOUTH EVERY DAY completed nortriptyline 25 MG Oral Capsule POLO ([facility]) Ranitidine 150 MG Oral Tablet ranitidine 150 mg tablet ranit idine 150 mg tablet completed Ranitidine 150 MG Oral Tablet POLO ([facility]) Ranitidine 150 MG Oral Tablet ranitidine 150 mg tablet ranit idine 150 mg tablet completed ranitidine 150 MG Oral Tablet POLO ([facility]) Carisoprodol 350 MG Oral Tablet carisopr odol 350 mg tablet Take 1 tablet 3 times a day by oral route as needed for 5 days. carisoprodol 350 mg tablet Take 1 tablet 3 times a day by oral route as needed for 5 days. 1 completed carisoprodol 350 MG Oral Tablet POLO ( [facility]) Ranitidine 150 MG Oral Tablet ranitidine 150 mg tablet ranit idine 150 mg tablet completed ranitidine 150 MG Oral Tablet POLO ([facility]) Ranitidine 150 MG Oral Tablet ranitidine 150 mg tablet ranit idine 150 mg tablet completed ranitidine 150 MG Oral Tablet POLO ([facility]) Acetaminophen 325 MG / Hydrocodone Sony trate 5 MG Oral Tablet hydrocodone 5 mg- acetaminophen 325 mg tablet hydrocodone 5 mg-acetaminophen 325 mg tablet completed acetaminophen 325 MG / hydrocodone bitartrate 5 MG Oral Tablet POLO ([facility]) Acetaminophen 325 MG / Hydrocodone Sony trate 5 MG Oral Tablet hydrocodone 5 mg- acetaminophen 325 mg tablet hydrocodone 5 mg-acetaminophen 325 mg tablet completed acetaminophen 325 MG / hydrocodone bitartrate 5 MG Oral Tablet POLO ([facility]) Sulfamethoxazole 800 MG / Trimethoprim 1 60 MG Oral Tablet sulfamethoxazole 800 mg-trimethoprim 160 mg tablet sulfamethoxazole 800 mg-trimethoprim 160 mg tablet completed sulfame thoxazole 800 MG / trimethoprim 160 MG Oral Tablet POLO ([facility]) Prednisone 20 MG Oral Tablet prednisone 20 mg tablet prednisone 20 mg tablet completed Prednisone 20 MG Oral Tablet POLO ([facility]) ipratropium/ tiff albuter completed ipratropium/ tiff albuter POLO ([facility]) lidocaine hcl jelly 2 % gel com pleted lidocaine hcl jelly 2 % gel POLO ([facility]) lidocaine 5 % topical patch [id number] com pleted lidocaine 0.05 MG/MG Medicated Patch POLO ([facility]) paroxetine hcl 30 mg tabs compl eted paroxetine hcl 30 mg tabs POLO ([facility]) hydroco/apap tab 5-325mg completed hydroco/apap tab 5-325mg POLO ([facility]) omeprazole 20 mg cpdr completed omeprazole 20 mg cpdr POLO ([facility]) Famotidine 40 MG Oral Tablet famotidine 40 mg tablet famotidine 40 mg tablet completed famotidine 40 MG Oral Tablet POLO ([facility]) Omeprazole 20 MG Delayed Release Oral Ca psule omeprazole 20 mg capsule,delayed release TAKE ONE CAPSULE BY MOUTH EVERY DAY 30 MINUTES BEFORE MORNING MEAL NEEDED omeprazole 20 mg capsule,delayed release TAKE ONE CAPSULE BY MOUTH EVERY DAY 30 MINUTES BEFORE MORNING MEAL NEEDED completed omeprazole 20 MG Delayed Release Oral Capsule POLO ([facility]) Cyclobenzaprine hydrochloride 10 MG Oral Tablet cyclobenzaprine 10 mg tablet TAKE ONE TABLET BY MOUTH EVERY DAY AT BEDTIME cyclobenzaprine 10 mg tablet TAKE ONE TABLET BY MOUTH EVERY DAY AT BEDTIME completed cyclobenzaprine hydrochloride 10 MG Oral Tablet POLO ([facility]) methylprednisolone dose pack 4 mg tbpk completed methylprednisolone dose pack 4 mg tbpk POLO ([facility]) gabapentin 300 mg caps completed gabapentin 300 mg caps POLO ([facility]) Fluzone Quad [id number] (PF) 60 mcg (15 m cg x 4)/0.5 mL IM suspension INJECT DIRECTED [id number] completed 0.5 ML influenza A virus A/[facility]/[id number] (H1N1) antigen 0.03 MG/ML / influenza A virus A/[facility] (H3N2) antigen 0.03 MG/ML / influenza B virus B/[facility] antigen 0.03 MG/ML / influenza B virus B/ antigen 0.03 MG/ML Injection [Fluzone Quadrivalent [id number]] POLO ([facility]) ezetimibe 10 mg tabs completed ezetimibe 10 mg tabs POLO ([facility]) doxycycline monohydrate 100 mg caps completed doxycycline monohydrate 100 mg caps POLO ([facility]) lidocaine hcl jelly 2 % gel com pleted lidocaine hcl jelly 2 % gel POLO ([facility]) methylprednisolone 4 mg tablets in a dose pack [id number] completed methylprednisolone 4 mg tablets in a dose pack POLO ([facility]) hydroco/apap tab 5-325mg completed hydroco/apap tab 5-325mg POLO ([facility]) Carisoprodol 350 MG Oral Tablet carisopr odol 350 mg tablet Take 1 tablet 3 times a day by oral route as needed for 5 days. carisoprodol 350 mg tablet Take 1 tablet 3 times a day by oral route as needed for 5 days. 1 completed carisoprodol 350 MG Oral Tablet POLO ( [facility]) topiramate 100 mg tabs completed topiramate 100 mg tabs POLO ([facility]) hydroco/apap tab 5-325mg completed hydroco/apap tab 5-325mg POLO ([facility]) Nortriptyline 25 MG Oral Capsule nortrip tyline 25 mg capsule TAKE ONE CAPSULE BY MOUTH EVERY DAY nortriptyline 25 mg capsule TAKE ONE CAPSULE BY MOUTH EVERY DAY completed nortriptyline 25 MG Oral Capsule POLO ([facility]) alprazolam 0.5 mg tabs completed alprazolam 0.5 mg tabs POLO ([facility]) Lidocaine Hydrochloride 0.02 MG/MG Topical Gel lidocai ne HCl 2 % mucosal jelly lidocaine HCl 2 % mucosal jelly comple alyssa lidocaine hydrochloride 0.02 MG/MG Topical Gel POLO ([facility]) Insurance Providers Payer name Policy type / Coverage type Policy ID Covered democrat ID Covered democrat's relationship to mcdermott Policy Mcdermott Plan Information MELVINIMISHA [id number] SP [id number] MEDICARE COMPLETE [id number] SP [id number] MEDICARE COMPLETE [id number] SP [id number] MEDICARE COMPLETE-[facility] [id number] S [id number] [facility] [id number] SP [id number] [facility] [id number] SP [id number] MEDICARE COMPLETE [id number] SP [id number] ANSI-Medicare Part B [id number] ANSI-Medicaid [id number] MEDICAID [id number] SP [id number] ANSI-Medicare Part B [id number] ANSI-Medicaid [id number] MEDICAID [id number] SP [id number] ANSI-Medicare Part B [id number] ANSI-Medicaid [id number] ANSI-Medicaid [id number] ANSI-Medicare Part B [id number] ANSI-Medicare Part B [id number] ANSI-Medicaid [id number] Medicaid [facility] Part B [id number] Self [id number] [facility] Medicare Commercial [id number] Self [id number] MEDICARE COMPLETE [id number] SP [id number] ANSI-Medicaid [id number] ANSI-Medicare Part B [id number] ANSI-Medicare Part B [id number] ANSI-Medicaid [id number] ANSI-Medicaid [id number] ANSI-Medicare Part B [id number] ANSI-Medicare Part B [id number] ANSI-Medicaid [id number] ANSI-Medicare Part B [id number] ANSI-Medicaid [id number] ANSI-Medicaid [id number] ANSI-Medicare Part B [id number] ANSI-Medicaid [id number] ANSI-Medicare Part B [id number] ANSI-Medicare Part B [id number] ANSI-Medicaid [id number] [facility] Medicare Complete F [id number] SELF [id number] Medicaid [facility] S D [id number] SELF [id number] ANSI-Medicare Part B [id number] ANSI-Medicaid [id number] [facility] Medicare Complete F [id number] SELF [id number] ANSI-Medicare Part B [id number] ANSI-Medicaid [id number] [facility] Medicare Complete F [id number] SELF [id number] ANSI-Medicare Part B [id number] ANSI-Medicaid [id number] ANSI-Medicaid [id number] ANSI-Medicare Part B [id number] ANSI-Medicare Part B [id number] ANSI-Medicaid [id number] ANSI-Medicare Part B [id number] ANSI-Medicaid [id number] ANSI-Medicaid [id number] ANSI-Medicare Part B [id number] ANSI-Medicaid [id number] ANSI-Medicare Part B [id number] ANSI-Medicaid [id number] ANSI-Medicare Part B [id number] ANSI-Medicaid [id number] ANSI-Medicare Part B [id number] ANSI-Medicaid [id number] ANSI-Medicare Part B [id number] ANSI-Medicare Part B [id number] ANSI-Medicaid [id number] MEDICARE COMPLETE [id number] SP [id number] ANSI-Medicare Part B [id number] ANSI-Medicaid [id number] Medicaid [place] Medigap Part B [id number] Self [id number] [facility] ([facility] Commercial [id number] Self [id number] MEDICARE [id number] SP [id number] MEDICAID M [id number] S [id number] MEDICARE COMPLETE [id number] SP [id number] [place] Part [place] [id number] Self [id number] MEDICARE COMPLETE-[facility] O [id number] S [id number] Medicaid [place] Part B [id number] Self [id number] [facility] MCRO [id number] SP [id number] [facility] [id number] SP [id number] MEDICARE COMPLETE [id number] SP [id number] Medicaid [place] Part [place] [id number] Self [id number] MEDICAID [id number] SP [id number] [place] [id number] Self [id number] [place] [id number] Self [id number] MEDICAID [id number] SP [id number] MEDICARE COMPLETE [id number] SP [id number] [place] Part [place] [id number] Self [id number] MEDICARE COMPLETE [id number] SP [id number] [facility] [id number] SP [id number] [facility] [id number] SP [id number] MEDICARE [id number] SP [id number] A MEDICARE UNAVAILABLE SP UNAVAILA BLE Problems, Conditions, and Diagnoses Code Display Name Description Problem Type Effective Dates Data Source(s) 232585239 Isolated seizures Isolated seizures Problem 03/07 12:00:00 AM EST MEDENT ([facility], ) [id number] Cerebral infarction due to internal reid tid artery occlusion Cerebral infarction due to internal carotid artery occlusion Problem 03/07/2020 12:00:00 AM EST MEDENT ([facility], ) [id number] Pure hypercholesterolemia Pure hypercholesterolemia Pr oblem 08/31/2019 12:00:00 AM EDT MEDENT ([facility] ) F43.23 [id number] Adjustment disorder with mixed a nxiety and depressed mood Problem 07/14/2019 12:00:00 AM EDT eCW1 ([facility]) J44.1 705807982 COPD with exacerbation Problem 03/31/2019 12 :00:00 AM EST eCW1 ([facility]) K21.9 [id number] Gastroesophageal ref lux disease, esophagitis presence not specified Problem 03/31/2019 12:00:00 AM EST eCW1 ([facility]) K21.9 [id number] Gastroesophageal ref lux disease, esophagitis presence not specified Problem 03/31/2019 12:00:00 AM EST eCW1 ([facility]) J44.1 590899551 COPD with exacerbation Problem 03/31/2019 12 :00:00 AM EST eCW1 ([facility]) Other nonspecific abnormal finding of kehinde ng field Other nonspecific abnormal finding of lung field Problem 02/22/2019 12:00:00 AM EST MEDENT ([facility], ) Surgeries/Procedures Procedure Description Date Indications Data Source(s) Balance Forward 02/22/2020 12:00:00 AM EST MEDENT ([facility], ) Spirometry 09/28/2019 12:00:00 AM EDT M EDENT ([facility], ) RADEX SPINE THORACIC 2 VIEWS 08/31/2019 12:00:00 AM ED T MEDENT ([facility] ) Spirometry 06/28/2019 12:00:00 AM EDT M EDENT ([facility], ) Spirometry 05/17/2019 12:00:00 AM EDT M EDENT ([facility], ) Office Visit, Est Pt., Level 3 FC 04/19/2019 12:00:00 AM EST eCW1 ([facility]) Office Visit, Est Pt., Level 4 PC 04/19/2019 12:00:00 AM EST eCW1 ([facility]) URINE-NO MICRO 04/19/2019 12:00:00 AM EST eCW1 ([facility]) Office Visit, Est Pt., Level 2 FC 04/11/2019 12:00:00 AM EST eCW1 ([facility]) Office Visit, Est Pt., Level 3 PC 04/11/2019 12:00:00 AM EST eCW1 ([facility]) Spirometry 02/22/2019 12:00:00 AM EST M EDENT ([facility], ) Results ID Date Data Source [id number] 01/30/2020 01:26:00 PM EST MEDENT ([facility], ) Name Value Range Interpretation Code Description Data Connie rce(s) Supporting Document(s) PDFReport Laboratory test result MEDENT ([facility], ) FVC-Pre 2.32 L MEDENT ([facility]) FVC-%Pred-Pre 65 L MEDENT ([facility], ) FVC-Pred 3.53 L MEDENT ([facility], ) Fev1-Pred 2.72 L MEDENT ([facility]) Fev1-Pre 1.17 L MEDENT ([facility], ) FVC-LLN 2.79 L MEDENT ([facility]) Fev1-%Pred-Pre 43 L MEDENT ([facility]) Fev1-LLN 2.10 L MEDENT ([facility]) Fev6-Pred 3.40 L MEDENT ([facility]) Fev6-Pre 2.27 L MEDENT ([facility], ) Fev6-%Pred-Pre 66 L MEDENT ([facility]) Fev6-LLN 2.68 L MEDENT ([facility]) Gtg3ltb-Iel 50 % MEDENT ([facility]) Iwz4ror-Vgcl 78 % MEDENT ([facility]) Ocb9gqf-Gmpy 96 % MEDENT ([facility]) Rjp9vtg-%Pred-Pre 64 % MEDENT ([facility]) Cjs4tth-JSW 68 % MEDENT ([facility]) Jze2hef-Quc 98 % MEDENT ([facility]) Htt2ekb-%Pred-Pre 101 % MEDENT ([facility]) FEFMax-Pre 2.07 L/E/sec MEDENT ([facility]) FEFMax-Pred 6.55 L/E/sec MEDENT ([facility], ) FEFMax-LLN 4.73 L/E/sec MEDENT ([facility]) FEFMax-%Pred-Pre 31 L/E/sec MEDENT ([facility]) Hiv2357-%Pred-Pre 21 L/E/sec MEDENT ([facility]) Urv0405-Whtf 2.42 L/E/sec MEDENT ([facility]) Ykm6133-Yid 0.51 L/E/sec MEDENT ([facility]) Xsa7sjx2-Qtyn 81 % MEDENT ([facility]) ExpTime-Pre 6.78 sec MEDENT ([facility]) Vks1747-PKA 1.10 L/E/sec MEDENT ([facility], ) Rnp3juj2-Yrf 52 % MEDENT ([facility]) Xkb9uos2-%Pred-Pre 64 % MEDENT ([facility]) Nrz6mog5-YYX 72 % MEDENT ([facility]) ID Date Data Source [id number] 12/30/2019 12:00:00 AM EST POLO ([facility]) Name Value Range Interpretation Code Description Data Connie rce(s) Supporting Document(s) SARS-CoV-2 (COVID-19) RNA [Presence] in Respiratory specimen by MINERVA with probe detection negative negative normal Sars-cov-2 POLO ([facility]) ID Date Data Source [id number] 12/30/2019 12:00:00 AM EST POLO ([facility]) Name Value Range Interpretation Code Description Data Connie rce(s) Supporting Document(s) ID Date Data Source [id number] 12/30/2019 12:00:00 AM EST POLO ([facility]) Name Value Range Interpretation Code Description Data Connie rce(s) Supporting Document(s) SARS-CoV-2 (COVID-19) RNA [Presence] in Respiratory specimen by MINERVA with probe detection negative negative normal Sars-cov-2 POLO ([facility]) ID Date Data Source [id number] 12/30/2019 12:00:00 AM EST POLO ([facility]) Name Value Range Interpretation Code Description Data Connie rce(s) Supporting Document(s) ID Date Data Source [id number] 12/30/2019 12:00:00 AM EST POLO ([facility]) Name Value Range Interpretation Code Description Data Connie rce(s) Supporting Document(s) SARS-CoV-2 (COVID-19) RNA [Presence] in Respiratory specimen by MINERVA with probe detection negative negative normal Sars-cov-2 POLO ([facility]) ID Date Data Source [id number] 12/30/2019 12:00:00 AM EST POLO ([facility]) Name Value Range Interpretation Code Description Data Connie rce(s) Supporting Document(s) ID Date Data Source [id number] 12/30/2019 12:00:00 AM EST POLO ([facility]) Name Value Range Interpretation Code Description Data Connie rce(s) Supporting Document(s) SARS coronavirus 2 RNA [Presence] in Res piratory specimen by MINERVA with probe detection negative negative normal Sars-cov-2 POLO ([facility]) ID Date Data Source [id number] 12/30/2019 12:00:00 AM EST POLO ([facility]) Name Value Range Interpretation Code Description Data Connie rce(s) Supporting Document(s) ID Date Data Source [id number] 12/30/2019 12:00:00 AM EST POLO ([facility] [place]) Name Value Range Interpretation Code Description Data Connie rce(s) Supporting Document(s) SARS coronavirus 2 RNA [Presence] in Res piratory specimen by MINERVA with probe detection negative negative normal Sars-cov-2 POLO ([facility]) ID Date Data Source [id number] 12/30/2019 12:00:00 AM EST POLO ([facility]) Name Value Range Interpretation Code Description Data Connie rce(s) Supporting Document(s) ID Date Data Source [id number] 12/30/2019 12:00:00 AM EST [facility] Name Value Range Interpretation Code Description Data Connie rce(s) Supporting Document(s) SARS-CoV-2 [facility] This lab was ordered by [facility]-COVID19 and reported by [email or web address]. ID Date Data Source Urinalysis, no micro 12/13/2019 09:52:01 AM EDT eCW1 ([facility]) Name Value Range Interpretation Code Description Data Connie rce(s) Supporting Document(s) trace Leukocyte eCW1 ([facility]) 5 pH eCW1 ([facility]) 1.030 Spec gravity eCW1 ([facility]) neg Nitrate eCW1 ([facility]) 30 Protein eCW1 ([facility]) neg Glucose eCW1 ([facility]) neg Blood eCW1 ([facility]) neg Ketones eCW1 ([facility]) neg Bilirubin eCW1 ([facility]) norm Urobili eCW1 ([facility]) yes Internal QC Acceptable (Y/N) e CW1 ([facility]) ID Date Data Source [id number] 12/10/2019 12:00:00 AM EDT POLO ([facility] [place]) Name Value Range Interpretation Code Description Data Connie rce(s) Supporting Document(s) SARS-CoV-2 (COVID-19) RNA [Presence] in Respiratory specimen by MINERVA with probe detection negative negative normal Sars-cov-2 POLO ([facility]) ID Date Data Source [id number] 12/10/2019 12:00:00 AM EDT POLO ([facility]) Name Value Range Interpretation Code Description Data Connie rce(s) Supporting Document(s) ID Date Data Source [id number] 12/10/2019 12:00:00 AM EDT POLO ([facility]) Name Value Range Interpretation Code Description Data Connie rce(s) Supporting Document(s) SARS-CoV-2 (COVID-19) RNA [Presence] in Respiratory specimen by MINERVA with probe detection negative negative normal Sars-cov-2 POLO ([facility]) ID Date Data Source [id number] 12/10/2019 12:00:00 AM EDT POLO ([facility]) Name Value Range Interpretation Code Description Data Connie rce(s) Supporting Document(s) ID Date Data Source [id number] 12/10/2019 12:00:00 AM EDT POLO ([facility]) Name Value Range Interpretation Code Description Data Connie rce(s) Supporting Document(s) SARS-CoV-2 (COVID-19) RNA [Presence] in Respiratory specimen by MINERVA with probe detection negative negative normal Sars-cov-2 POLO ([facility]) ID Date Data Source [id number] 12/10/2019 12:00:00 AM EDT POLO ([facility]) Name Value Range Interpretation Code Description Data Connie rce(s) Supporting Document(s) ID Date Data Source [id number] 12/10/2019 12:00:00 AM EDT POLO ([facility]) Name Value Range Interpretation Code Description Data Connie rce(s) Supporting Document(s) SARS coronavirus 2 RNA [Presence] in Res piratory specimen by MINERVA with probe detection negative negative normal Sars-cov-2 POLO ([facility]) ID Date Data Source [id number] 12/10/2019 12:00:00 AM EDT POLO ([facility]) Name Value Range Interpretation Code Description Data Connie rce(s) Supporting Document(s) ID Date Data Source [id number] 12/10/2019 12:00:00 AM EDT POLO ([facility]) Name Value Range Interpretation Code Description Data Connie rce(s) Supporting Document(s) SARS coronavirus 2 RNA [Presence] in Res piratory specimen by MINERVA with probe detection negative negative normal Sars-cov-2 POLO ([facility]) ID Date Data Source [id number] 12/10/2019 12:00:00 AM EDT POLO ([facility]) Name Value Range Interpretation Code Description Data Connie rce(s) Supporting Document(s) ID Date Data Source [id number] 12/10/2019 12:00:00 AM EDT POLO ([facility]) Name Value Range Interpretation Code Description Data Connie rce(s) Supporting Document(s) SARS coronavirus 2 RNA [Presence] in Res piratory specimen by MINERVA with probe detection negative negative normal Sars-cov-2 POLO ([facility]) ID Date Data Source [id number] 12/10/2019 12:00:00 AM EDT POLO ([facility]) Name Value Range Interpretation Code Description Data Connie rce(s) Supporting Document(s) ID Date Data Source [id number] 12/10/2019 12:00:00 AM EDT POLO ([facility]) Name Value Range Interpretation Code Description Data Connie rce(s) Supporting Document(s) SARS coronavirus 2 RNA [Presence] in Res piratory specimen by MINERVA with probe detection negative negative normal Sars-cov-2 POLO ([facility]) ID Date Data Source [id number] 12/10/2019 12:00:00 AM EDT POLO ([facility]) Name Value Range Interpretation Code Description Data Connie rce(s) Supporting Document(s) ID Date Data Source [id number] 12/10/2019 12:00:00 AM EDT POLO ([facility]) Name Value Range Interpretation Code Description Data Connie rce(s) Supporting Document(s) SARS coronavirus 2 RNA [Presence] in Res piratory specimen by MINREVA with probe detection negative negative normal Sars-cov-2 POLO ([facility]) ID Date Data Source [id number] 12/10/2019 12:00:00 AM EDT POLO ([facility]) Name Value Range Interpretation Code Description Data Connie rce(s) Supporting Document(s) ID Date Data Source [id number] 12/10/2019 12:00:00 AM EDT POLO ([facility]) Name Value Range Interpretation Code Description Data Connie rce(s) Supporting Document(s) SARS coronavirus 2 RNA [Presence] in Res piratory specimen by MINERVA with probe detection negative negative normal Sars-cov-2 POLO ([facility]) ID Date Data Source [id number] 12/10/2019 12:00:00 AM EDT POLO ([facility]) Name Value Range Interpretation Code Description Data Connie rce(s) Supporting Document(s) ID Date Data Source [id number] 12/10/2019 12:00:00 AM EDT [facility] Name Value Range Interpretation Code Description Data Connie rce(s) Supporting Document(s) SARS-CoV-2 [facility] This lab was ordered by [facility]-COVID19 and reported by [facility]. ID Date Data Source [id number] 09/13/2019 12:00:00 AM EDT [facility] Mir Estrada MD Patient Name: RAYMOND FREEMAN [facility] Date of : 1960[place] [address] Date of Exam: 09/13/2019#: Fax: [phone] EXAM: [...] is a mild T7 compression deformity with adqtkcgimmwtl38% loss of height. Focal edema at T5 [...] rce(s) Supporting Document(s) ID Date Data Source [id number] 08/29/2019 12:00:00 AM EDT POLO ([facility]) Name Value Range Interpretation Code Description Data Connie rce(s) Supporting Document(s) ID Date Data Source [id number] 08/29/2019 12:00:00 AM EDT POLO ([facility]) Name Value Range Interpretation Code Description Data Connie rce(s) Supporting Document(s) ID Date Data Source [id number] 08/29/2019 12:00:00 AM EDT POLO ([facility]) Name Value Range Interpretation Code Description Data Connie rce(s) Supporting Document(s) ID Date Data Source [id number] 08/29/2019 12:00:00 AM EDT POLO ([facility]) Name Value Range Interpretation Code Description Data Connie rce(s) Supporting Document(s) ID Date Data Source [id number] 08/29/2019 12:00:00 AM EDT POLO ([facility]) Name Value Range Interpretation Code Description Data Connie rce(s) Supporting Document(s) ID Date Data Source [id number] 08/29/2019 12:00:00 AM EDT POLO ([facility]) Name Value Range Interpretation Code Description Data Connie rce(s) Supporting Document(s) ID Date Data Source [id number] 08/29/2019 12:00:00 AM EDT POLO ([facility]) Name Value Range Interpretation Code Description Data Connie rce(s) Supporting Document(s) ID Date Data Source [id number] 08/29/2019 12:00:00 AM EDT POLO ([facility]) Name Value Range Interpretation Code Description Data Connie rce(s) Supporting Document(s) ID Date Data Source [id number] 08/29/2019 12:00:00 AM EDT POLO ([facility]) Name Value Range Interpretation Code Description Data Connie rce(s) Supporting Document(s) ID Date Data Source [id number] 08/29/2019 12:00:00 AM EDT POLO ([facility]) Name Value Range Interpretation Code Description Data Connie rce(s) Supporting Document(s) ID Date Data Source [id number] 08/29/2019 12:00:00 AM EDT POLO ([facility]) Name Value Range Interpretation Code Description Data Connie rce(s) Supporting Document(s) ID Date Data Source [id number] 08/29/2019 12:00:00 AM EDT POLO ([facility]) Name Value Range Interpretation Code Description Data Connie rce(s) Supporting Document(s) ID Date Data Source [id number] 08/29/2019 12:00:00 AM EDT POLO ([facility]) Name Value Range Interpretation Code Description Data Connie rce(s) Supporting Document(s) ID Date Data Source [id number] 08/29/2019 12:00:00 AM EDT POLO ([facility]) Name Value Range Interpretation Code Description Data Connie rce(s) Supporting Document(s) ID Date Data Source [id number] 08/29/2019 12:00:00 AM EDT POLO ([facility]) Name Value Range Interpretation Code Description Data Connie rce(s) Supporting Document(s) ID Date Data Source [id number] 08/29/2019 12:00:00 AM EDT POLO ([facility]) Name Value Range Interpretation Code Description Data Connie rce(s) Supporting Document(s) ID Date Data Source [id number] 08/29/2019 12:00:00 AM EDT [facility] Name Value Range Interpretation Code Description Data Connie rce(s) Supporting Document(s) SARS-CoV-2 [facility] This lab was ordered by [facility]-COVID19 and reported by [email or web address]. ID Date Data Source [id number] 06/28/2019 12:32:00 PM EDT MEDENT ([facility], ) Name Value Range Interpretation Code Description Data Connie rce(s) Supporting Document(s) FVC-Pred 3.55 L MEDENT ([facility], ) PDFReport Laboratory test result MEDENT ([facility]) Fev1-Pred 2.75 L MEDENT ([facility]) FVC-%Pred-Pre 65 L MEDENT ([facility]) FVC-Pre 2.34 L MEDENT ([facility]) FVC-LLN 2.82 L MED[facility] ([facility]) Fev1-LLN 2.13 L MEDENT ([facility]) Fev1-%Pred-Pre 47 L MEDENT ([facility]) Fev1-Pre 1.30 L MEDENT ([facility]) Fev6-Pred 3.43 L [facility] ([facility]) Fev6-LLN 2.71 L [facility] ([facility]) Fev6-Pre 2.34 L [facility] ([facility]) Fev6-%Pred-Pre 68 L MEDENT ([facility]) Jmy6hrj-Tnl 56 % [facility] ([facility]) Ynw0aql-%Pred-Pre 71 % MEDENT ([facility]) Uaj4szv-Merg 78 % [facility] ([facility]) Jcp3kan-LKR 68 % [facility] ([facility]) Fgg3hhb-Rcmr 97 % [facility] ([facility]) Wey4oih-Bfp 100 % [facility] ([facility]) Mfy7pss-%Pred-Pre 103 % [facility] ([facility]) FEFMax-Pre 2.60 L/E/sec MEDENT ([facility]) FEFMax-Pred 6.61 L/E/sec MED[facility] ([facility]) FEFMax-%Pred-Pre 39 L/E/sec [facility] ([facility]) FEFMax-LLN 4.78 L/E/sec [facility] ([facility]) [address]-Hev 0.59 L/E/sec MEDENT ([facility]) Oeq6488-%Pred-Pre 24 L/E/sec [facility] ([facility]) Glt8888-Drrj 2.47 L/E/sec MEDENT ([facility]) Hma1905-XFY 1.15 L/E/sec MED[facility] ([facility]) ExpTime-Pre 5.88 sec MEDENT ([facility]) Pon9tfw5-Dmg 56 % [facility] ([facility]) Hkv0kvi7-Orda 81 % [facility] ([facility]) Gpx9nhy9-KSP 72 % [facility] ([facility]) Ecv3dfr1-%Pred-Pre 69 % [facility] ([facility]) ID Date Data Source [id number] 05/18/2019 10:05:00 AM EDT [facility] Name Value Range Interpretation Code Description Data Connie rce(s) Supporting Document(s) SARS CORONAVIRUS 2 RNA [facility] This lab was ordered by [facility] and reported by [email or web address]. ID Date Data Source [id number] 04/18/2019 12:59:00 PM EST MEDENT ([facility]) Name Value Range Interpretation Code Description Data Connie rce(s) Supporting Document(s) Calcidiol [Mass/volume] in Serum or Plasma 29.7 ng/mL 30.0-100.0 MEDENT ([facility]) ID Date Data Source [id number] 04/18/2019 12:59:00 PM EST MEDENT ([facility]) Name Value Range Interpretation Code Description Data Connie rce(s) Supporting Document(s) Blood Urea Nitrogen 13 mg/dL 7-18 [facility] ([facility]) Glucose, Fasting 84 mg/dL 70-100 [facility] ([facility]) Creatinine For GFR 0.89 mg/dL 0.55-1.30 [facility] ([facility]) Glomerular Filtration Rate Laboratory test result [facility] ([facility]) <content>Units are mL/min/1.73 m2</content>
<content></content>
<content>Chronic Kidney Disease Staging per NKF:</content>
<content></content>
<content>Stage I & II GFR >=60 Normal to Mildly Decreased</content>
<content>Stage III GFR 30- 59 Moderately Decreased</content>
<content>Stage IV GFR 15-29 Severely Decreased</content>
<content>Stage V GFR <15 Very Little GFR Left</content>
<content>ESRD GFR <15 on FIT MODEL</content>
<content></content> Chloride Level 114 meq/L 98-107 [facility] ([facility] Potassium Serum 5.3 meq/L 3.5-5.1 [facility] ([facility]) Sodium Level 143 meq/L 136-145 [facility] ([facility]) Anion Gap 1 meq/L 8-16 [facility] ([facility]) Carbon Dioxide Level 28 meq/L 21-32 [facility] ([facility]) Calcium Level 8.9 mg/dL 8.8-10.2 [facility] ([facility]) Procedure Social History Code Duration Value Status Description Data Source(s ) Smoking 12/13/2019 12:00:00 AM EDT Current Smoker completed Curre nt Smoker eCW1 ([facility]) Smoking 12/13/2019 12:00:00 AM EDT Current Smoker completed Curre nt Smoker eCW1 ([facility]) Smoking 12/13/2019 12:00:00 AM EDT Current Smoker completed Curre nt Smoker eCW1 ([facility]) Smoking 12/13/2019 12:00:00 AM EDT Current Smoker completed Curre nt Smoker eCW1 ([facility]) Smoking 12/13/2019 12:00:00 AM EDT Current Smoker completed Curre nt Smoker eCW1 ([facility]) Smoking 12/13/2019 12:00:00 AM EDT Current Smoker completed Curre nt Smoker eCW1 ([facility]) Smoking 12/13/2019 12:00:00 AM EDT Current Smoker completed Curre nt Smoker eCW1 ([facility]) Smoking 07/14/2019 12:00:00 AM EDT Current Smoker completed Curre nt Smoker eCW1 ([facility]) Vital Signs ID Date Data Source [id number] Name Value Range Interpretation Code Description Data Source(s) Body height 66 [in_i] 66 [in_i] POLO ([facility]) Body height 66 [in_i] 66 [in_i] WALDRON ([facility] [place]) Body surface area Derived from formula 1.59 m2 1.59 m2 [facility] ([facility]) Body weight 53.071 kg 53.071 kg [facility] ([facility] [place] body weight 130 [lb_av] 130 [lb_av] [facility] Body mass index (BMI) [Ratio] 18.9 kg/m2 18.9 k g/m2 [facility] ([facility]) Body weight 117.00 [lb_av] 117.00 [lb_av] [facility] Body height 66 [in_i] 66 [in_i] [facility] ([facility]) 5'6" Oxygen saturation in Arterial blood by Pulse oximetry 96 % 96 % [facility] ([facility]) Heart rate 63 /min 63 /min [facility] ([facility]) Diastolic blood pressure 78 mm[Hg] 78 mm[Hg] [facility] ([facility]) Systolic blood pressure 150 mm[Hg] 150 mm[Hg] [facility] Systolic blood pressure 127 mm[Hg] 127 mm[Hg] Sandra THENA ([facility]) Body height 66 [in_i] 66 [in_i] POLO ([facility]) Diastolic blood pressure 67 mm[Hg] 67 mm[Hg] POLO ([facility]) Systolic blood pressure 127 mm[Hg] 127 mm[Hg] A THENA ([facility]) Body height 66 [in_i] 66 [in_i] POLO ([facility]) Diastolic blood pressure 67 mm[Hg] 67 mm[Hg] POLO ([facility]) Systolic blood pressure 127 mm[Hg] 127 mm[Hg] A THENA ([facility]) Body height 66 [in_i] 66 [in_i] POOL ([facility]) Diastolic blood pressure 67 mm[Hg] 67 mm[Hg] POLO ([facility]) Systolic blood pressure 127 mm[Hg] 127 mm[Hg] A THENA ([facility]) Body height 66 [in_i] 66 [in_i] POLO ([facility]) Diastolic blood pressure 67 mm[Hg] 67 mm[Hg] POLO ([facility]) Systolic blood pressure 127 mm[Hg] 127 mm[Hg] A THENA ([facility]) Body height 66 [in_i] 66 [in_i] POLO ([facility]) Diastolic blood pressure 67 mm[Hg] 67 mm[Hg] POLO ([facility]) Systolic blood pressure 127 mm[Hg] 127 mm[Hg] A THENA ([facility]) Body height 66 [in_i] 66 [in_i] POLO ([facility]) Diastolic blood pressure 67 mm[Hg] 67 mm[Hg] POLO ([facility]) Systolic blood pressure 127 mm[Hg] 127 mm[Hg] A THENA ([facility]) Body height 66 [in_i] 66 [in_i] POLO ([facility]) Diastolic blood pressure 67 mm[Hg] 67 mm[Hg] POLO ([facility]) Diastolic blood pressure 69 mm[Hg] 69 mm[Hg] eCW1 ([facility]) Systolic blood pressure 146 mm[Hg] 146 mm[Hg] e CW1 ([facility]) Body temperature 97.0 [degF] 97.0 [degF] eCW1 ( [facility]) Respiratory rate 17 /min 17 /min eCW1 ([facility]) Heart rate 69 /min 69 /min eCW1 ([facility]) Body mass index (BMI) [Ratio] 20.13 kg/m2 20.13 kg/m2 eCW1 ([facility]) Body height 65 [in_i] 65 [in_i] eCW1 ([facility]) Body weight 121 [lb_av] 121 [lb_av] eCW1 ([facility]) Body weight 128 [lb_av] 128 [lb_av] POLO ([facility]) Body mass index (BMI) [Ratio] 20.7 kg/m2 20.7 k g/m2 POLO ([facility]) Body height 66 [in_i] 66 [in_i] POLO ([facility]) Body weight 128 [lb_av] 128 [lb_av] POLO ([facility]) Body mass index (BMI) [Ratio] 20.7 kg/m2 20.7 k g/m2 POLO ([facility]) Body height 66 [in_i] 66 [in_i] POLO ([facility]) Body weight 128 [lb_av] 128 [lb_av] POLO ([facility]) Body mass index (BMI) [Ratio] 20.7 kg/m2 20.7 k g/m2 POLO ([facility]) Body height 66 [in_i] 66 [in_i] POLO ([facility]) Body weight 128 [lb_av] 128 [lb_av] POLO ([facility]) Body mass index (BMI) [Ratio] 20.7 kg/m2 20.7 k g/m2 POLO ([facility]) Body height 66 [in_i] 66 [in_i] POLO ([facility]) Body weight 128 [lb_av] 128 [lb_av] POLO ([facility]) Body mass index (BMI) [Ratio] 20.7 kg/m2 20.7 k g/m2 POLO ([facility]) Body height 66 [in_i] 66 [in_i] POLO ([facility]) Body weight 128 [lb_av] 128 [lb_av] POLO ([facility]) Body mass index (BMI) [Ratio] 20.7 kg/m2 20.7 k g/m2 POLO ([facility]) Body height 66 [in_i] 66 [in_i] POLO ([facility]) Body weight 128 [lb_av] 128 [lb_av] POLO ([facility]) Body mass index (BMI) [Ratio] 20.7 kg/m2 20.7 k g/m2 POLO ([facility]) Body height 66 [in_i] 66 [in_i] POLO ([facility]) Body weight 128 [lb_av] 128 [lb_av] POLO ([facility]) Body mass index (BMI) [Ratio] 20.7 kg/m2 20.7 k g/m2 POLO ([facility]) Body height 66 [in_i] 66 [in_i] POLO ([facility]) Body weight 128 [lb_av] 128 [lb_av] POLO ([facility]) Body mass index (BMI) [Ratio] 20.7 kg/m2 20.7 k g/m2 POLO ([facility]) Body height 66 [in_i] 66 [in_i] POLO ([facility]) Body weight 128 [lb_av] 128 [lb_av] POLO ([facility]) Body mass index (BMI) [Ratio] 20.7 kg/m2 20.7 k g/m2 POLO ([facility]) Body height 66 [in_i] 66 [in_i] POLO ([facility]) Body weight 128 [lb_av] 128 [lb_av] POLO ([facility]) Body mass index (BMI) [Ratio] 20.7 kg/m2 20.7 k g/m2 POLO ([facility]) Body height 66 [in_i] 66 [in_i] POLO ([facility]) Body weight 128 [lb_av] 128 [lb_av] POLO ([facility]) Body mass index (BMI) [Ratio] 20.7 kg/m2 20.7 k g/m2 POLO ([facility]) Body height 66 [in_i] 66 [in_i] POLO ([facility]) Body weight 128 [lb_av] 128 [lb_av] POLO ([facility]) Body mass index (BMI) [Ratio] 20.7 kg/m2 20.7 k g/m2 POLO ([facility]) Body height 66 [in_i] 66 [in_i] POLO ([facility]) Body surface area Derived from formula 1.62 m2 1.62 m2 [facility] ([facility], ) Body weight 55.509 kg 55.509 kg [facility] ([facility], ) [place] body weight 130 [lb_av] 130 [lb_av] MEDEN T ([facility]) Body mass index (BMI) [Ratio] 19.7 kg/m2 19.7 k g/m2 [facility] ([facility]) Body weight 122.38 [lb_av] 122.38 [lb_av] MEDEN T ([facility]) Body height 66 [in_i] 66 [in_i] [facility] ([facility], ) 5'6" Body temperature 97.5 [degF] 97.5 [degF] [facility] ([facility], ) Oxygen saturation in Arterial blood by Pulse oximetry 98 % 98 % [facility] ([facility]) Heart rate 77 /min 77 /min [facility] ([facility], ) Diastolic blood pressure 78 mm[Hg] 78 mm[Hg] [facility] ([facility]) Systolic blood pressure 144 mm[Hg] 144 mm[Hg] Kelley EDENT ([facility], ) Body weight 128 [lb_av] 128 [lb_av] [facility] [facility] Systolic blood pressure 132 mm[Hg] 132 mm[Hg] Sandra THENSandra ([facility]) Body mass index (BMI) [Ratio] 20.7 kg/m2 20.7 k g/m2 POLO ([facility]) Body height 66 [in_i] 66 [in_i] POLO ([facility]) Diastolic blood pressure 72 mm[Hg] 72 mm[Hg] POLO ([facility]) Body weight 128 [lb_av] 128 [lb_av] POLO ([facility]) Systolic blood pressure 132 mm[Hg] 132 mm[Hg] A THENA ([facility]) Body mass index (BMI) [Ratio] 20.7 kg/m2 20.7 k g/m2 POLO ([facility]) Body height 66 [in_i] 66 [in_i] POLO ([facility]) Diastolic blood pressure 72 mm[Hg] 72 mm[Hg] POLO ([facility]) Body mass index (BMI) [Ratio] 20.7 kg/m2 20.7 k g/m2 POLO ([facility]) Body height 66 [in_i] 66 [in_i] POLO ([facility]) Diastolic blood pressure 72 mm[Hg] 72 mm[Hg] POLO ([facility]) Body weight 128 [lb_av] 128 [lb_av] POLO ([facility]) Systolic blood pressure 132 mm[Hg] 132 mm[Hg] A THENA ([facility]) Body mass index (BMI) [Ratio] 20.7 kg/m2 20.7 k g/m2 POLO ([facility]) Body height 66 [in_i] 66 [in_i] POLO ([facility]) Diastolic blood pressure 72 mm[Hg] 72 mm[Hg] POLO ([facility]) Body weight 128 [lb_av] 128 [lb_av] POLO ([facility]) Systolic blood pressure 132 mm[Hg] 132 mm[Hg] A THENA ([facility]) Body mass index (BMI) [Ratio] 20.7 kg/m2 20.7 k g/m2 POLO ([facility]) Body height 66 [in_i] 66 [in_i] POLO ([facility]) Diastolic blood pressure 72 mm[Hg] 72 mm[Hg] POLO ([facility]) Body weight 128 [lb_av] 128 [lb_av] POLO ([facility]) Systolic blood pressure 132 mm[Hg] 132 mm[Hg] A THENA ([facility]) Body mass index (BMI) [Ratio] 20.7 kg/m2 20.7 k g/m2 POLO ([facility]) Body height 66 [in_i] 66 [in_i] POLO ([facility]) Diastolic blood pressure 72 mm[Hg] 72 mm[Hg] POLO ([facility]) Body weight 128 [lb_av] 128 [lb_av] POLO ([facility]) Systolic blood pressure 132 mm[Hg] 132 mm[Hg] A THENA ([facility]) Body mass index (BMI) [Ratio] 20.7 kg/m2 20.7 k g/m2 POLO ([facility]) Body height 66 [in_i] 66 [in_i] POLO ([facility]) Diastolic blood pressure 72 mm[Hg] 72 mm[Hg] POLO ([facility]) Body weight 128 [lb_av] 128 [lb_av] POLO ([facility]) Systolic blood pressure 132 mm[Hg] 132 mm[Hg] A THENA ([facility]) Body mass index (BMI) [Ratio] 20.7 kg/m2 20.7 k g/m2 POLO ([facility]) Body height 66 [in_i] 66 [in_i] POLO ([facility]) Diastolic blood pressure 72 mm[Hg] 72 mm[Hg] POLO ([facility]) Body weight 128 [lb_av] 128 [lb_av] POLO ([facility]) Systolic blood pressure 132 mm[Hg] 132 mm[Hg] A THENA ([facility]) Body mass index (BMI) [Ratio] 20.7 kg/m2 20.7 k g/m2 POLO ([facility]) Body height 66 [in_i] 66 [in_i] POLO ([facility]) Diastolic blood pressure 72 mm[Hg] 72 mm[Hg] POLO ([facility]) Body weight 128 [lb_av] 128 [lb_av] POLO ([facility]) Systolic blood pressure 132 mm[Hg] 132 mm[Hg] A THENA ([facility]) Body weight 128 [lb_av] 128 [lb_av] POLO ([facility]) Systolic blood pressure 132 mm[Hg] 132 mm[Hg] A THENA ([facility]) Body mass index (BMI) [Ratio] 20.7 kg/m2 20.7 k g/m2 POLO ([facility]) Body height 66 [in_i] 66 [in_i] POLO ([facility]) Diastolic blood pressure 72 mm[Hg] 72 mm[Hg] POLO ([facility]) Body weight 128 [lb_av] 128 [lb_av] POLO ([facility]) Systolic blood pressure 132 mm[Hg] 132 mm[Hg] A THENA ([facility]) Body mass index (BMI) [Ratio] 20.7 kg/m2 20.7 k g/m2 POLO ([facility]) Body height 66 [in_i] 66 [in_i] POLO ([facility]) Diastolic blood pressure 72 mm[Hg] 72 mm[Hg] POLO ([facility]) Body weight 128 [lb_av] 128 [lb_av] POLO ([facility]) Systolic blood pressure 132 mm[Hg] 132 mm[Hg] A THENA ([facility]) Body mass index (BMI) [Ratio] 20.7 kg/m2 20.7 k g/m2 POLO ([facility]) Body height 66 [in_i] 66 [in_i] POLO ([facility]) Diastolic blood pressure 72 mm[Hg] 72 mm[Hg] POLO ([facility]) Body weight 128 [lb_av] 128 [lb_av] POLO ([facility]) Systolic blood pressure 132 mm[Hg] 132 mm[Hg] A THENA ([facility]) Body mass index (BMI) [Ratio] 20.7 kg/m2 20.7 k g/m2 POLO ([facility]) Body height 66 [in_i] 66 [in_i] POLO ([facility]) Diastolic blood pressure 72 mm[Hg] 72 mm[Hg] POLO ([facility]) Body weight 128 [lb_av] 128 [lb_av] POLO ([facility]) Systolic blood pressure 132 mm[Hg] 132 mm[Hg] A THENA ([facility]) Body mass index (BMI) [Ratio] 20.7 kg/m2 20.7 k g/m2 POLO ([facility]) Body height 66 [in_i] 66 [in_i] POLO ([facility]) Diastolic blood pressure 72 mm[Hg] 72 mm[Hg] POLO ([facility]) Body weight 128 [lb_av] 128 [lb_av] POLO ([facility]) Systolic blood pressure 132 mm[Hg] 132 mm[Hg] A THENA ([facility]) Body mass index (BMI) [Ratio] 20.7 kg/m2 20.7 k g/m2 POLO ([facility]) Body height 66 [in_i] 66 [in_i] POLO ([facility]) Diastolic blood pressure 72 mm[Hg] 72 mm[Hg] POLO ([facility]) Body mass index (BMI) [Ratio] 20.6 kg/m2 20.6 k g/m2 MEDENT ([facility]) Body weight 120.00 [lb_av] 120.00 [lb_av] MEDEN T ([facility]) Body height 64 [in_i] 64 [in_i] MEDENT ([facility]) 5'4" Body temperature 97.7 [degF] 97.7 [degF] MEDENT ([facility]) Systolic blood pressure 142 mm[Hg] 142 mm[Hg] A THENA ([facility]) Body height 66 [in_i] 66 [in_i] POLO ([facility]) Diastolic blood pressure 62 mm[Hg] 62 mm[Hg] POLO ([facility]) Systolic blood pressure 142 mm[Hg] 142 mm[Hg] A THENA ([facility]) Body height 66 [in_i] 66 [in_i] POLO ([facility]) Diastolic blood pressure 62 mm[Hg] 62 mm[Hg] POLO ([facility]) Systolic blood pressure 142 mm[Hg] 142 mm[Hg] A THENA ([facility]) Body height 66 [in_i] 66 [in_i] POLO ([facility]) Diastolic blood pressure 62 mm[Hg] 62 mm[Hg] POLO ([facility]) Systolic blood pressure 142 mm[Hg] 142 mm[Hg] A THENA ([facility]) Body height 66 [in_i] 66 [in_i] POLO ([facility]) Diastolic blood pressure 62 mm[Hg] 62 mm[Hg] POLO ([facility]) Systolic blood pressure 142 mm[Hg] 142 mm[Hg] A THENA ([facility]) Body height 66 [in_i] 66 [in_i] POLO ([facility]) Diastolic blood pressure 62 mm[Hg] 62 mm[Hg] POLO ([facility]) Systolic blood pressure 142 mm[Hg] 142 mm[Hg] A THENA ([facility]) Body height 66 [in_i] 66 [in_i] POLO ([facility]) Diastolic blood pressure 62 mm[Hg] 62 mm[Hg] POLO ([facility]) Systolic blood pressure 142 mm[Hg] 142 mm[Hg] A THENA ([facility]) Body height 66 [in_i] 66 [in_i] POLO ([facility]) Diastolic blood pressure 62 mm[Hg] 62 mm[Hg] POLO ([facility]) Systolic blood pressure 142 mm[Hg] 142 mm[Hg] A THENA ([facility]) Body height 66 [in_i] 66 [in_i] POLO ([facility]) Diastolic blood pressure 62 mm[Hg] 62 mm[Hg] POLO ([facility]) Systolic blood pressure 142 mm[Hg] 142 mm[Hg] A THENA ([facility]) Body height 66 [in_i] 66 [in_i] POLO ([facility]) Diastolic blood pressure 62 mm[Hg] 62 mm[Hg] POLO ([facility]) Systolic blood pressure 142 mm[Hg] 142 mm[Hg] A THENA ([facility]) Body height 66 [in_i] 66 [in_i] POLO ([facility]) Diastolic blood pressure 62 mm[Hg] 62 mm[Hg] POLO ([facility]) Systolic blood pressure 142 mm[Hg] 142 mm[Hg] A THENA ([facility]) Body height 66 [in_i] 66 [in_i] POLO ([facility]) Diastolic blood pressure 62 mm[Hg] 62 mm[Hg] POLO ([facility]) Systolic blood pressure 142 mm[Hg] 142 mm[Hg] A THENA ([facility]) Body height 66 [in_i] 66 [in_i] POLO ([facility]) Diastolic blood pressure 62 mm[Hg] 62 mm[Hg] POLO ([facility]) Systolic blood pressure 142 mm[Hg] 142 mm[Hg] A THENA ([facility]) Body height 66 [in_i] 66 [in_i] POLO ([facility]) Diastolic blood pressure 62 mm[Hg] 62 mm[Hg] POLO ([facility]) Systolic blood pressure 142 mm[Hg] 142 mm[Hg] A THENA ([facility]) Body height 66 [in_i] 66 [in_i] POLO ([facility]) Diastolic blood pressure 62 mm[Hg] 62 mm[Hg] POLO ([facility]) Systolic blood pressure 142 mm[Hg] 142 mm[Hg] A THENA ([facility]) Body height 66 [in_i] 66 [in_i] POLO ([facility]) Diastolic blood pressure 62 mm[Hg] 62 mm[Hg] POLO ([facility]) Systolic blood pressure 142 mm[Hg] 142 mm[Hg] A THENA ([facility]) Body height 66 [in_i] 66 [in_i] POLO ([facility]) Diastolic blood pressure 62 mm[Hg] 62 mm[Hg] POLO ([facility]) Systolic blood pressure 142 mm[Hg] 142 mm[Hg] A THENA ([facility]) Body height 66 [in_i] 66 [in_i] POLO ([facility]) Diastolic blood pressure 62 mm[Hg] 62 mm[Hg] POLO ([facility]) Systolic blood pressure 142 mm[Hg] 142 mm[Hg] A THENA ([facility]) Body height 66 [in_i] 66 [in_i] POLO ([facility]) Diastolic blood pressure 62 mm[Hg] 62 mm[Hg] POLO ([facility]) Systolic blood pressure 142 mm[Hg] 142 mm[Hg] A THENA ([facility]) Body height 66 [in_i] 66 [in_i] POLO ([facility]) Diastolic blood pressure 62 mm[Hg] 62 mm[Hg] POLO ([facility]) Diastolic blood pressure 103 mm[Hg] 103 mm[Hg] eCW1 ([facility]) Systolic blood pressure 175 mm[Hg] 175 mm[Hg] e CW1 ([facility]) Body temperature 97.8 [degF] 97.8 [degF] eCW1 ( [facility]) Respiratory rate 17 /min 17 /min eCW1 ([facility]) Heart rate 77 /min 77 /min eCW1 ([facility]) Body mass index (BMI) [Ratio] 20.73 kg/m2 20.73 kg/m2 eCW1 ([facility]) Body height 65 [in_i] 65 [in_i] eCW1 ([facility]) Body weight 124.6 [lb_av] 124.6 [lb_av] eCW1 ([facility]) Oxygen saturation in Arterial blood by Pulse oximetry 97 % 97 % MEDENT ([facility] Body mass index (BMI) [Ratio] 20.6 kg/m2 20.6 k g/m2 MEDENT ([facility]) Body weight 124.00 [lb_av] 124.00 [lb_av] MEDEN T ([facility]) Body height 65 [in_i] 65 [in_i] MEDENT ([facility] ) 5'5" Heart rate 74 /min 74 /min [facility] ([facility] ) Diastolic blood pressure 72 mm[Hg] 72 mm[Hg] MEDENT ([facility] ) Systolic blood pressure 120 mm[Hg] 120 mm[Hg] M EDENT ([facility]) Body weight 57.267 kg 57.267 kg [facility] ([facility]) Body mass index (BMI) [Ratio] 20.4 kg/m2 20.4 k g/m2 [facility] ([facility]) Body weight 126.25 [lb_av] 126.25 [lb_av] MEDEN T ([facility]) Body height 66 [in_i] 66 [in_i] [facility]) 5'6" Body temperature 97.1 [degF] 97.1 [degF] [facility] ([facility]) Oxygen saturation in Arterial blood by Pulse oximetry 99 % 99 % [facility] ([facility]) Heart rate 66 /min 66 /min [facility] ([facility]) Diastolic blood pressure 86 mm[Hg] 86 mm[Hg] [facility] ([facility]) Systolic blood pressure 138 mm[Hg] 138 mm[Hg] [facility] Body weight 63.221 kg 63.221 kg [facility] ([facility]) Body mass index (BMI) [Ratio] 22.5 kg/m2 22.5 k g/m2 [facility] ([facility]) Body weight 139.38 [lb_av] 139.38 [lb_av] MEDEN T ([facility]) Body height 66 [in_i] 66 [in_i] [facility] ([facility], ) 5'6" Body temperature 98.0 [degF] 98.0 [degF] [facility] ([facility]) Oxygen saturation in Arterial blood by Pulse oximetry 96 % 96 % [facility] ([facility]) Heart rate 92 /min 92 /min [facility] ([facility]) Diastolic blood pressure 80 mm[Hg] 80 mm[Hg] MEDENT ([facility] ) Systolic blood pressure 162 mm[Hg] 162 mm[Hg] M EDENT ([facility] ) Body mass index (BMI) [Ratio] 22.2 kg/m2 22.2 k g/m2 MEDENT ([facility] Body weight 133.25 [lb_av] 133.25 [lb_av] MEDEN T ([facility] ) Body height 65 [in_i] 65 [in_i] MEDENT ([facility] 5'5" Heart rate 77 /min 77 /min MEDENT ([facility] ) Diastolic blood pressure 78 mm[Hg] 78 mm[Hg] MEDENT ([facility] ) Systolic blood pressure 130 mm[Hg] 130 mm[Hg] M EDENT ([facility] ) Oxygen saturation in Arterial blood by Pulse oximetry 95 % 95 % [facility] ([facility] ) Diastolic blood pressure 68 mm[Hg] 68 mm[Hg] eCW1 ([facility]) Systolic blood pressure 128 mm[Hg] 128 mm[Hg] e CW1 ([facility]) Body temperature 96.5 [degF] 96.5 [degF] eCW1 ( [facility]) Respiratory rate 18 /min 18 /min eCW1 ([facility]) Heart rate 82 /min 82 /min eCW1 ([facility]) Body mass index (BMI) [Ratio] 22.23 kg/m2 22.23 kg/m2 W1 ([facility]) Body height 65 [in_us] 65 [in_us] eCW1 ([facility]) Body weight Measured 133.6 [lb_av] 133.6 [lb_av ] eCW1 ([facility]) Diastolic blood pressure 88 mm[Hg] 88 mm[Hg] eCW1 ([facility]) Systolic blood pressure 149 mm[Hg] 149 mm[Hg] e CW1 ([facility]) Body temperature 98.0 [degF] 98.0 [degF] eCW1 ( [facility]) Respiratory rate 17 /min 17 /min eCW1 ([facility]) Heart rate 61 /min 61 /min eCW1 ([facility]) Body mass index (BMI) [Ratio] 22.50 kg/m2 22.50 kg/m2 eCW1 ([facility]) Body height 65 [in_us] 65 [in_us] eCW1 ([facility]) Body weight Measured 135.2 [lb_av] 135.2 [lb_av ] eCW1 ([facility]) Diastolic blood pressure 79 mm[Hg] 79 mm[Hg] eCW1 ([facility]) Systolic blood pressure 172 mm[Hg] 172 mm[Hg] e CW1 ([facility]) Body temperature 97.8 [degF] 97.8 [degF] eCW1 ( [facility]) Respiratory rate 18 /min 18 /min eCW1 ([facility]) Heart rate 61 /min 61 /min eCW1 ([facility]) Body mass index (BMI) [Ratio] 22.46 kg/m2 22.46 kg/m2 eCW1 ([facility]) Body height 65 [in_us] 65 [in_us] eCW1 ([facility]) Body weight Measured 135 [lb_av] 135 [lb_av] eC W1 ([facility]) Systolic blood pressure 151 mm[Hg] 151 mm[Hg] A THENA ([facility]) Body height 66 [in_i] 66 [in_i] POLO ([facility]) Diastolic blood pressure 77 mm[Hg] 77 mm[Hg] POLO ([facility]) Systolic blood pressure 151 mm[Hg] 151 mm[Hg] A THENA ([facility]) Body height 66 [in_i] 66 [in_i] POLO ([facility]) Diastolic blood pressure 77 mm[Hg] 77 mm[Hg] POLO ([facility]) Systolic blood pressure 151 mm[Hg] 151 mm[Hg] A THENA ([facility]) Body height 66 [in_i] 66 [in_i] POLO ([facility]) Diastolic blood pressure 77 mm[Hg] 77 mm[Hg] POLO ([facility]) Systolic blood pressure 151 mm[Hg] 151 mm[Hg] A THENA ([facility]) Body height 66 [in_i] 66 [in_i] POLO ([facility]) Diastolic blood pressure 77 mm[Hg] 77 mm[Hg] POLO ([facility]) Systolic blood pressure 151 mm[Hg] 151 mm[Hg] A THENA ([facility]) Body height 66 [in_i] 66 [in_i] POLO ([facility]) Diastolic blood pressure 77 mm[Hg] 77 mm[Hg] POLO ([facility]) Systolic blood pressure 151 mm[Hg] 151 mm[Hg] A THENA ([facility]) Body height 66 [in_i] 66 [in_i] POLO ([facility]) Diastolic blood pressure 77 mm[Hg] 77 mm[Hg] POLO ([facility]) Systolic blood pressure 151 mm[Hg] 151 mm[Hg] A THENA ([facility]) Body height 66 [in_i] 66 [in_i] POLO ([facility]) Diastolic blood pressure 77 mm[Hg] 77 mm[Hg] POLO ([facility]) Systolic blood pressure 151 mm[Hg] 151 mm[Hg] A THENA ([facility]) Body height 66 [in_i] 66 [in_i] POLO ([facility]) Diastolic blood pressure 77 mm[Hg] 77 mm[Hg] POLO ([facility]) Systolic blood pressure 151 mm[Hg] 151 mm[Hg] A THENA ([facility]) Body height 66 [in_i] 66 [in_i] POLO ([facility]) Diastolic blood pressure 77 mm[Hg] 77 mm[Hg] POLO ([facility]) Systolic blood pressure 151 mm[Hg] 151 mm[Hg] A THENA ([facility]) Body height 66 [in_i] 66 [in_i] POLO ([facility]) Diastolic blood pressure 77 mm[Hg] 77 mm[Hg] POLO ([facility]) Systolic blood pressure 151 mm[Hg] 151 mm[Hg] A THENA ([facility]) Body height 66 [in_i] 66 [in_i] POLO ([facility]) Diastolic blood pressure 77 mm[Hg] 77 mm[Hg] POLO ([facility]) Systolic blood pressure 151 mm[Hg] 151 mm[Hg] A THENA ([facility]) Body height 66 [in_i] 66 [in_i] POLO ([facility]) Diastolic blood pressure 77 mm[Hg] 77 mm[Hg] POLO ([facility]) Systolic blood pressure 151 mm[Hg] 151 mm[Hg] A THENA ([facility]) Body height 66 [in_i] 66 [in_i] POLO ([facility]) Diastolic blood pressure 77 mm[Hg] 77 mm[Hg] POLO ([facility]) Systolic blood pressure 151 mm[Hg] 151 mm[Hg] A THENA ([facility]) Body height 66 [in_i] 66 [in_i] POLO ([facility]) Diastolic blood pressure 77 mm[Hg] 77 mm[Hg] POLO ([facility]) Systolic blood pressure 151 mm[Hg] 151 mm[Hg] A THENA ([facility]) Body height 66 [in_i] 66 [in_i] POLO ([facility]) Diastolic blood pressure 77 mm[Hg] 77 mm[Hg] POLO ([facility]) Systolic blood pressure 151 mm[Hg] 151 mm[Hg] A THENA ([facility]) Body height 66 [in_i] 66 [in_i] POLO ([facility]) Diastolic blood pressure 77 mm[Hg] 77 mm[Hg] POLO ([facility]) Systolic blood pressure 151 mm[Hg] 151 mm[Hg] A THENA ([facility]) Body height 66 [in_i] 66 [in_i] POLO ([facility]) Diastolic blood pressure 77 mm[Hg] 77 mm[Hg] POLO ([facility]) Systolic blood pressure 151 mm[Hg] 151 mm[Hg] A THENA ([facility]) Body height 66 [in_i] 66 [in_i] POLO ([facility]) Diastolic blood pressure 77 mm[Hg] 77 mm[Hg] POLO ([facility]) Systolic blood pressure 151 mm[Hg] 151 mm[Hg] A THENA ([facility]) Body height 66 [in_i] 66 [in_i] POLO ([facility]) Diastolic blood pressure 77 mm[Hg] 77 mm[Hg] POLO ([facility] [facility] Systolic blood pressure 151 mm[Hg] 151 mm[Hg] A THENA ([facility]) Body height 66 [in_i] 66 [in_i] POLO ([facility]) Diastolic blood pressure 77 mm[Hg] 77 mm[Hg] POLO ([facility]) Systolic blood pressure 151 mm[Hg] 151 mm[Hg] A THENA ([facility]) Body height 66 [in_i] 66 [in_i] POLO ([facility]) Diastolic blood pressure 77 mm[Hg] 77 mm[Hg] POLO ([facility]) Systolic blood pressure 151 mm[Hg] 151 mm[Hg] A THENA ([facility]) Body height 66 [in_i] 66 [in_i] POLO ([facility]) Diastolic blood pressure 77 mm[Hg] 77 mm[Hg] POLO ([facility]) Diastolic blood pressure 63 mm[Hg] 63 mm[Hg] eCW1 ([facility]) Systolic blood pressure 145 mm[Hg] 145 mm[Hg] e CW1 ([facility]) Body temperature 96.9 [degF] 96.9 [degF] eCW1 ( [facility]) Respiratory rate 18 /min 18 /min eCW1 ([facility]) Heart rate 62 /min 62 /min eCW1 ([facility]) Body mass index (BMI) [Ratio] 22.23 kg/m2 22.23 kg/m2 W1 ([facility]) Body height 65 [in_us] 65 [in_us] eCW1 ([facility]) Body weight Measured 133.6 [lb_av] 133.6 [lb_av ] eCW1 ([facility]) Body weight 61.690 kg 61.690 kg [facility] ([facility]) Body mass index (BMI) [Ratio] 21.9 kg/m2 21.9 k g/m2 [facility] ([facility]) Body weight 136.00 [lb_av] 136.00 [lb_av] MEDEN T ([facility]) Body height 66 [in_i] 66 [in_i] [facility] ([facility]) 5'6" Oxygen saturation in Arterial blood by Pulse oximetry 94 % 94 % [facility] ([facility]) Heart rate 65 /min 65 /min [facility] ([facility]) Diastolic blood pressure 80 mm[Hg] 80 mm[Hg] [facility] ([facility]) Systolic blood pressure 119 mm[Hg] 119 mm[Hg] M EDENT ([facility]) Diastolic blood pressure 70 mm[Hg] 70 mm[Hg] eCW1 ([facility]) Systolic blood pressure 160 mm[Hg] 160 mm[Hg] e CW1 ([facility]) Body temperature 97.6 [degF] 97.6 [degF] eCW1 ( [facility]) Respiratory rate 18 /min 18 /min eCW1 ([facility]) Heart rate 75 /min 75 /min eCW1 ([facility]) Body mass index (BMI) [Ratio] 22.63 kg/m2 22.63 kg/m2 eCW1 ([facility]) Body height 65 [in_us] 65 [in_us] eCW1 ([facility]) Body weight Measured 136 [lb_av] 136 [lb_av] eC W1 ([facility]) Patient Treatment Plan of Care Planned Activity Planned Date Details Description Data Source (s) Ciprofloxacin 500 MG Oral Tablet 12/29/2019 12:00:00 AM EST eCW1 ([facility]) Ciprofloxacin 500 MG Oral Tablet 12/29/2019 12:00:00 AM EST eCW1 ([facility]) Ciprofloxacin 500 MG Oral Tablet 12/29/2019 12:00:00 AM EST eCW1 ([facility]) Ciprofloxacin 500 MG Oral Tablet 12/29/2019 12:00:00 AM EST eCW1 ([facility]) Ciprofloxacin 500 MG Oral Tablet 12/29/2019 12:00:00 AM EST eCW1 ([facility]) tizanidine 4 MG Oral Tablet 12/13/2019 12:00:00 AM EDT eCW1 ([facility]) Sulfamethoxazole 800 MG / Trimethoprim 160 MG Oral Tab let [Bactrim] 12/13/2019 12:00:00 AM EDT eCW1 ([facility]) tizanidine 4 MG Oral Tablet 12/13/2019 12:00:00 AM EDT eCW1 ([facility]) Sulfamethoxazole 800 MG / Trimethoprim 160 MG Oral Tab let [Bactrim] 12/13/2019 12:00:00 AM EDT eCW1 ([facility]) tizanidine 4 MG Oral Tablet 12/13/2019 12:00:00 AM EDT eCW1 ([facility]) Sulfamethoxazole 800 MG / Trimethoprim 160 MG Oral Tab let [Bactrim] 12/13/2019 12:00:00 AM EDT eCW1 ([facility]) tizanidine 4 MG Oral Tablet 12/13/2019 12:00:00 AM EDT eCW1 ([facility]) Sulfamethoxazole 800 MG / Trimethoprim 160 MG Oral Tab let [Bactrim] 12/13/2019 12:00:00 AM EDT eCW1 ([facility]) tizanidine 4 MG Oral Tablet 12/13/2019 12:00:00 AM EDT eCW1 ([facility]) Sulfamethoxazole 800 MG / Trimethoprim 160 MG Oral Tab let [Bactrim] 12/13/2019 12:00:00 AM EDT eCW1 ([facility]) tizanidine 4 MG Oral Tablet 12/13/2019 12:00:00 AM EDT eCW1 ([facility]) Sulfamethoxazole 800 MG / Trimethoprim 160 MG Oral Tab let [Bactrim] 12/13/2019 12:00:00 AM EDT eCW1 ([facility]) tizanidine 4 MG Oral Tablet 12/13/2019 12:00:00 AM EDT eCW1 ([facility]) Sulfamethoxazole 800 MG / Trimethoprim 160 MG Oral Tab let [Bactrim] 12/13/2019 12:00:00 AM EDT eCW1 ([facility]) Alprazolam 0.5 MG Oral Tablet 07/14/2019 12:00:00 AM EDT eCW1 ([facility]) Alprazolam 0.5 MG Oral Tablet 07/14/2019 12:00:00 AM EDT eCW1 ([facility]) Lidocaine Hydrochloride 0.02 MG/MG Topical Gel 04/19/2019 12:00:00 AM EST eCW1 ([facility]) pantoprazole 20 MG Delayed Release Oral Tablet 04/11/2019 12:00:00 AM EST eCW1 ([facility]) Prednisone 20 MG Oral Tablet 03/31/2019 12:00:00 AM EST eCW1 ([facility]) Doxycycline Monohydrate 100 MG Oral Capsule 03/31/2019 12:00:00 AM EST eCW1 ([facility]) Omeprazole 20 MG Delayed Release Oral Tablet 03/31/2019 12:00:00 AM EST eCW1 ([facility]) gabapentin 400 MG Oral Capsule 02/28/2019 12:00:00 AM EST eCW1 ([facility]) gabapentin 400 MG Oral Capsule 02/28/2019 12:00:00 AM EST eCW1 ([facility]) gabapentin 400 MG Oral Capsule 02/28/2019 12:00:00 AM EST eCW1 ([facility]) Famotidine 40 MG Oral Tablet 02/21/2019 12:00:00 AM EST eCW1 ([facility]) Doxycycline Monohydrate 100 MG Oral Capsule 01/21/2019 12:00:00 AM EST eCW1 ([facility]) Prednisone 20 MG Oral Tablet 01/21/2019 12:00:00 AM EST eCW1 ([facility]) Trazodone Hydrochloride 50 MG Oral Tablet POLO ([facility]) topiramate 100 mg tabs ATHE NA ([facility]) tizanidine hydrochloride 4 mg tabs POLO ([facility]) Sulfamethoxazole 800 MG / Trimethoprim 160 MG Oral Tablet POLO ([facility]) Ranitidine 150 MG Oral Tablet POLO ([facility]) Prednisone 20 MG Oral Tablet POLO ([facility]) prednisone 20 mg tabs ATHEN A ([facility]) Phenazopyridine hydrochloride 200 MG Oral Tablet POLO ([facility]) paroxetine hcl 30 mg tabs A THENA ([facility]) pantoprazole sodium 20 mg tbec POLO ([facility]) pantoprazole 20 MG Delayed Release Oral Tablet POLO ([facility]) Omeprazole 20 MG Delayed Release Oral Capsule POLO ([facility]) omeprazole 20 mg cpdr ATHEN A ([facility]) Nortriptyline 25 MG Oral Capsule POLO ([facility]) NITROFURANTOIN, MACROCRYSTALS 25 MG / Ni trofurantoin, Monohydrate 75 MG Oral Capsule [facility] methylprednisolone dose pack 4 mg tbpk POLO ([facility]) methylprednisolone 4 mg tablets in a dose pack POLO ([facility]) lidocaine hcl jelly 2 % gel POLO ([facility]) Lidocaine Hydrochloride 0.02 MG/MG Topical Gel POLO ([facility]) lidocaine 5 % topical patch POLO ([facility]) ipratropium/ tiff albuter ATH IMREYA ([facility]) Albuterol 0.833 MG/ML / Ipratropium [place] 0.167 MG/ML Inhalant So lution POLO ([facility]) Acetaminophen 325 MG / Hydrocodone Bitartrate 5 MG Oral Tablet POLO ([facility]) hydroco/apap tab 5-325mg ATH MIREYA ([facility]) gabapentin 400 mg caps ATHE NA ([facility]) gabapentin 300 mg caps ATHE NA ([facility]) Fluzone Quad 1105-8112 (PF) 60 mcg (15 m cg x 4)/0.5 mL IM suspension INJECT DIRECTED POLO ([facility]) Famotidine 40 MG Oral Tablet POLO ([facility]) famotidine 40 mg tabs ATHEN A ([facility]) ezetimibe 10 mg tabs POLO ([facility]) Doxycycline Monohydrate 100 MG Oral Capsule POLO ([facility]) doxycycline monohydrate 100 mg caps POLO ([facility]) Cyclobenzaprine hydrochloride 10 MG Oral Tablet POLO ([facility]) clopidogrel 75 mg tabs ATHE NA ([facility]) Carisoprodol 350 MG Oral Tablet POLO ([facility]) carisoprodol 350 mg tabs AT JHONATAN ([facility]) atorvastatin calcium 80 mg tabs POLO ([facility]) fluticasone furoate 0.2 MG/ACTUAT Dry Powder Inhaler POLO ([facility]) Alprazolam 0.5 MG Oral Tablet POLO ([facility]) alprazolam 0.5 mg tabs ATHE NA ([facility]) albuterol sulfate HFA 90 mcg/actuation a erosol inhaler INHALE TWO PUFFS BY MOUTH FOUR TIMES A DAY NEEDED ATHE NA ([facility]) famotidine 40 mg tabs ATHEN A ([facility]) ezetimibe 10 mg tabs POLO ([facility]) Doxycycline Monohydrate 100 MG Oral Capsule POLO ([facility]) doxycycline monohydrate 100 mg caps POLO ([facility]) Cyclobenzaprine hydrochloride 10 MG Oral Tablet POLO ([facility]) clopidogrel 75 mg tabs ATHE NA ([facility]) Carisoprodol 350 MG Oral Tablet POLO ([facility]) carisoprodol 350 mg tabs AT JHONATAN ([facility]) atorvastatin calcium 80 mg tabs POLO ([facility]) fluticasone furoate 0.2 MG/ACTUAT Dry Powder Inhaler POLO ([facility]) umeclidinium 0.0625 MG/ACTUAT / vilanterol 0.025 MG/ACTUAT D ry Powder Inhaler POLO ([facility]) Alprazolam 0.5 MG Oral Tablet POLO ([facility]) alprazolam 0.5 mg tabs ATHE NA ([facility]) Trazodone Hydrochloride 50 MG Oral Tablet POLO ([facility]) topiramate 100 mg tabs ATHE NA ([facility]) tizanidine hydrochloride 4 mg tabs POLO ([facility]) Sulfamethoxazole 800 MG / Trimethoprim 160 MG Oral Tablet POLO ([facility]) Ranitidine 150 MG Oral Tablet POLO ([facility]) Prednisone 20 MG Oral Tablet POLO ([facility]) prednisone 20 mg tabs ATHEN A ([facility]) Phenazopyridine hydrochloride 200 MG Oral Tablet POLO ([facility]) paroxetine hcl 30 mg tabs A THENA ([facility]) pantoprazole sodium 20 mg tbec POLO ([facility]) pantoprazole 20 MG Delayed Release Oral Tablet POLO ([facility]) Omeprazole 20 MG Delayed Release Oral Capsule POLO ([facility]) omeprazole 20 mg cpdr ATHEN A ([facility]) Nortriptyline 25 MG Oral Capsule POLO ([facility]) NITROFURANTOIN, MACROCRYSTALS 25 MG / Ni trofurantoin, Monohydrate 75 MG Oral Capsule POLO ([facility] methylprednisolone dose pack 4 mg tbpk POLO ([facility]) methylprednisolone 4 mg tablets in a dose pack POLO ([facility]) lidocaine hcl jelly 2 % gel POLO ([facility]) Lidocaine Hydrochloride 0.02 MG/MG Topical Gel POLO ([facility]) lidocaine 5 % topical patch POLO ([facility]) ipratropium/ tiff albuter ATH MIREYA ([facility]) Albuterol 0.833 MG/ML / Ipratropium [place] 0.167 MG/ML Inhalant So lution POLO ([facility]) Acetaminophen 325 MG / Hydrocodone Bitartrate 5 MG Oral Tablet POLO ([facility]) hydroco/apap tab 5-325mg ATH MIREYA ([facility]) gabapentin 400 mg caps ATHE NA ([facility]) gabapentin 300 mg caps ATHE NA ([facility]) Famotidine 40 MG Oral Tablet POLO ([facility]) famotidine 40 mg tabs ATHEN A ([facility]) ezetimibe 10 mg tabs POLO ([facility]) Doxycycline Monohydrate 100 MG Oral Capsule POLO ([facility]) doxycycline monohydrate 100 mg caps POLO ([facility]) Cyclobenzaprine hydrochloride 10 MG Oral Tablet POLO ([facility]) clopidogrel 75 mg tabs ATHE NA ([facility]) Carisoprodol 350 MG Oral Tablet POLO ([facility]) carisoprodol 350 mg tabs AT JHONATAN ([facility]) atorvastatin calcium 80 mg tabs POLO ([facility]) fluticasone furoate 0.2 MG/ACTUAT Dry Powder Inhaler POLO ([facility]) umeclidinium 0.0625 MG/ACTUAT / vilanterol 0.025 MG/ACTUAT D ry Powder Inhaler POLO ([facility]) Alprazolam 0.5 MG Oral Tablet POLO ([facility]) alprazolam 0.5 mg tabs ATHE NA ([facility]) Trazodone Hydrochloride 50 MG Oral Tablet POLO ([facility]) topiramate 100 mg tabs ATHE NA ([facility]) tizanidine hydrochloride 4 mg tabs POLO ([facility]) Sulfamethoxazole 800 MG / Trimethoprim 160 MG Oral Tablet POLO ([facility]) Ranitidine 150 MG Oral Tablet POLO ([facility]) Prednisone 20 MG Oral Tablet POLO ([facility]) prednisone 20 mg tabs ATHEN A ([facility]) Phenazopyridine hydrochloride 200 MG Oral Tablet POLO ([facility]) paroxetine hcl 30 mg tabs A THENA ([facility]) pantoprazole sodium 20 mg tbec POLO ([facility]) pantoprazole 20 MG Delayed Release Oral Tablet POLO ([facility]) Omeprazole 20 MG Delayed Release Oral Capsule POLO ([facility]) omeprazole 20 mg cpdr ATHEN A ([facility]) Nortriptyline 25 MG Oral Capsule POLO ([facility]) NITROFURANTOIN, MACROCRYSTALS 25 MG / Ni trofurantoin, Monohydrate 75 MG Oral Capsule POLO ([facility]) methylprednisolone dose pack 4 mg tbpk POLO ([facility]) methylprednisolone 4 mg tablets in a dose pack POLO ([facility]) lidocaine hcl jelly 2 % gel POLO ([facility]) Lidocaine Hydrochloride 0.02 MG/MG Topical Gel POLO ([facility]) lidocaine 5 % topical patch POLO ([facility]) ipratropium/ tiff albuter ATH MIREYA ([facility]) Albuterol 0.833 MG/ML / Ipratropium [place] 0.167 MG/ML Inhalant So lution POLO ([facility]) Acetaminophen 325 MG / Hydrocodone Bitartrate 5 MG Oral Tablet POLO ([facility]) hydroco/apap tab 5-325mg ATH MIREYA ([facility]) Cyclobenzaprine hydrochloride 10 MG Oral Tablet POLO ([facility]) clopidogrel 75 mg tabs ATHE NA ([facility]) Carisoprodol 350 MG Oral Tablet POLO ([facility]) carisoprodol 350 mg tabs AT JOHNATAN ([facility]) atorvastatin calcium 80 mg tabs POLO ([facility]) fluticasone furoate 0.2 MG/ACTUAT Dry Powder Inhaler POLO ([facility]) umeclidinium 0.0625 MG/ACTUAT / vilanterol 0.025 MG/ACTUAT D ry Powder Inhaler POLO ([facility]) Alprazolam 0.5 MG Oral Tablet POLO ([facility]) alprazolam 0.5 mg tabs ATHE NA ([facility]) Trazodone Hydrochloride 50 MG Oral Tablet POLO ([facility]) topiramate 100 mg tabs ATHE NA ([facility]) tizanidine hydrochloride 4 mg tabs POLO ([facility]) Ranitidine 150 MG Oral Tablet POLO ([facility]) Prednisone 20 MG Oral Tablet POLO ([facility]) paroxetine hcl 30 mg tabs A THENA ([facility]) pantoprazole sodium 20 mg tbec POLO ([facility]) omeprazole 20 mg cpdr ATHEN A ([facility]) Nortriptyline 25 MG Oral Capsule POLO ([facility]) methylprednisolone dose pack 4 mg tbpk POLO ([facility]) lidocaine hcl jelly 2 % gel POLO ([facility]) Lidocaine Hydrochloride 0.02 MG/MG Topical Gel POLO ([facility]) ipratropium/ tiff albuter ATH MIREYA ([facility]) Acetaminophen 325 MG / Hydrocodone Bitartrate 5 MG Oral Tablet POLO ([facility]) hydroco/apap tab 5-325mg ATH MIREYA ([facility]) gabapentin 400 mg caps ATHE NA ([facility]) gabapentin 300 mg caps ATHE NA ([facility]) famotidine 40 mg tabs ATHEN A ([facility]) ezetimibe 10 mg tabs POLO ([facility]) doxycycline monohydrate 100 mg caps POLO ([facility]) clopidogrel 75 mg tabs ATHE NA ([facility]) Carisoprodol 350 MG Oral Tablet POLO ([facility]) carisoprodol 350 mg tabs AT JHONATAN ([facility]) atorvastatin calcium 80 mg tabs POLO ([facility]) Trazodone Hydrochloride 50 MG Oral Tablet POLO ([facility]) Trazodone Hydrochloride 50 MG Oral Tablet POLO ([facility]) topiramate 100 mg tabs ATHE NA ([facility]) tizanidine hydrochloride 4 mg tabs POLO ([facility]) Sulfamethoxazole 800 MG / Trimethoprim 160 MG Oral Tablet POLO ([facility]) Ranitidine 150 MG Oral Tablet POLO ([facility]) Prednisone 20 MG Oral Tablet POLO ([facility]) prednisone 20 mg tabs ATHEN A ([facility]) Phenazopyridine hydrochloride 200 MG Oral Tablet POLO ([facility]) paroxetine hcl 30 mg tabs A THENA ([facility]) pantoprazole sodium 20 mg tbec POLO ([facility]) pantoprazole 20 MG Delayed Release Oral Tablet POLO ([facility]) Omeprazole 20 MG Delayed Release Oral Capsule POLO ([facility]) omeprazole 20 mg cpdr ATHEN A ([facility]) Nortriptyline 25 MG Oral Capsule POLO ([facility]) NITROFURANTOIN, MACROCRYSTALS 25 MG / Ni trofurantoin, Monohydrate 75 MG Oral Capsule POLO ([facility] methylprednisolone dose pack 4 mg tbpk POLO ([facility]) methylprednisolone 4 mg tablets in a dose pack POLO ([facility]) lidocaine hcl jelly 2 % gel POLO ([facility]) Lidocaine Hydrochloride 0.02 MG/MG Topical Gel POLO ([facility]) lidocaine 5 % topical patch POLO ([facility]) ipratropium/ tiff albuter ATH MIREYA ([facility]) Albuterol 0.833 MG/ML / Ipratropium [place] 0.167 MG/ML Inhalant So lution POLO ([facility]) Acetaminophen 325 MG / Hydrocodone Bitartrate 5 MG Oral Tablet POLO ([facility]) hydroco/apap tab 5-325mg ATH MIREYA ([facility]) gabapentin 400 mg caps ATHE NA ([facility]) gabapentin 300 mg caps ATHE NA ([facility]) Fluzone Quad [id number] (PF) 60 mcg (15 m cg x 4)/0.5 mL IM suspension INJECT DIRECTED POLO ([facility]) Famotidine 40 MG Oral Tablet POLO ([facility]) famotidine 40 mg tabs ATHEN A ([facility]) ezetimibe 10 mg tabs POLO ([facility]) Doxycycline Monohydrate 100 MG Oral Capsule POLO ([facility]) doxycycline monohydrate 100 mg caps PLOO ([facility]) Cyclobenzaprine hydrochloride 10 MG Oral Tablet POLO ([facility]) clopidogrel 75 mg tabs ATHE NA ([facility]) Carisoprodol 350 MG Oral Tablet POLO ([facility]) carisoprodol 350 mg tabs AT JHONATAN ([facility]) atorvastatin calcium 80 mg tabs POLO ([facility]) fluticasone furoate 0.2 MG/ACTUAT Dry Powder Inhaler POLO ([facility]) umeclidinium 0.0625 MG/ACTUAT / vilanterol 0.025 MG/ACTUAT D ry Powder Inhaler POLO ([facility]) Alprazolam 0.5 MG Oral Tablet POLO ([facility]) alprazolam 0.5 mg tabs ATHE NA ([facility]) albuterol sulfate HFA 90 mcg/actuation a erosol inhaler INHALE TWO PUFFS BY MOUTH FOUR TIMES A DAY NEEDED ATHE NA ([facility]) Trazodone Hydrochloride 50 MG Oral Tablet POLO ([facility] [facility] topiramate 100 mg tabs ATHE NA ([facility]) tizanidine hydrochloride 4 mg tabs POLO ([facility]) Sulfamethoxazole 800 MG / Trimethoprim 160 MG Oral Tablet POLO ([facility]) Ranitidine 150 MG Oral Tablet POLO ([facility]) Prednisone 20 MG Oral Tablet POLO ([facility]) prednisone 20 mg tabs ATHEN A ([facility]) Phenazopyridine hydrochloride 200 MG Oral Tablet POLO ([facility]) paroxetine hcl 30 mg tabs A THENA ([facility]) pantoprazole sodium 20 mg tbec POLO ([facility]) pantoprazole 20 MG Delayed Release Oral Tablet POLO ([facility]) Omeprazole 20 MG Delayed Release Oral Capsule POLO ([facility]) omeprazole 20 mg cpdr ATHEN A ([facility]) Nortriptyline 25 MG Oral Capsule POLO ([facility]) NITROFURANTOIN, MACROCRYSTALS 25 MG / Ni trofurantoin, Monohydrate 75 MG Oral Capsule [facility] methylprednisolone dose pack 4 mg tbpk POLO ([facility]) methylprednisolone 4 mg tablets in a dose pack POLO ([facility]) lidocaine hcl jelly 2 % gel POLO ([facility]) Lidocaine Hydrochloride 0.02 MG/MG Topical Gel POLO ([facility]) lidocaine 5 % topical patch POLO ([facility]) ipratropium/ tiff albuter ATH MIREYA ([facility]) Albuterol 0.833 MG/ML / Ipratropium [place] 0.167 MG/ML Inhalant So lution POLO ([facility]) Acetaminophen 325 MG / Hydrocodone Bitartrate 5 MG Oral Tablet POLO ([facility]) hydroco/apap tab 5-325mg ATH MIREAY ([facility]) gabapentin 400 mg caps ATHE NA ([facility]) gabapentin 300 mg caps ATHE NA ([facility]) Famotidine 40 MG Oral Tablet POLO ([facility]) alprazolam 0.5 mg tabs ATHE NA ([facility]) Trazodone Hydrochloride 50 MG Oral Tablet POLO ([facility]) topiramate 100 mg tabs ATHE NA ([facility]) tizanidine hydrochloride 4 mg tabs POLO ([facility]) Ranitidine 150 MG Oral Tablet POLO ([facility]) Prednisone 20 MG Oral Tablet POLO ([facility]) paroxetine hcl 30 mg tabs A THENA ([facility]) pantoprazole sodium 20 mg tbec POLO ([facility]) omeprazole 20 mg cpdr ATHEN A ([facility]) Nortriptyline 25 MG Oral Capsule POLO ([facility]) methylprednisolone dose pack 4 mg tbpk POLO ([facility]) lidocaine hcl jelly 2 % gel POLO ([facility]) Lidocaine Hydrochloride 0.02 MG/MG Topical Gel POLO ([facility]) ipratropium/ tiff albuter ATH MIREYA ([facility]) Acetaminophen 325 MG / Hydrocodone Bitartrate 5 MG Oral Tablet POLO ([facility]) hydroco/apap tab 5-325mg ATH MIREYA ([facility]) Trazodone Hydrochloride 50 MG Oral Tablet POLO ([facility]) topiramate 100 mg tabs ATHE NA ([facility]) tizanidine hydrochloride 4 mg tabs POLO ([facility]) tizanidine 4 MG Oral Tablet POLO ([facility]) Ranitidine 150 MG Oral Tablet POLO ([facility]) Prednisone 20 MG Oral Tablet POLO ([facility]) paroxetine hcl 30 mg tabs A THENA ([facility]) pantoprazole sodium 20 mg tbec POLO ([facility]) omeprazole 20 mg cpdr ATHEN A ([facility]) Nortriptyline 25 MG Oral Capsule POLO ([facility]) methylprednisolone dose pack 4 mg tbpk OPLO ([facility]) lidocaine hcl jelly 2 % gel POLO ([facility]) Lidocaine Hydrochloride 0.02 MG/MG Topical Gel POLO ([facility]) ipratropium/ tiff albuter ATH MIREYA ([facility]) Acetaminophen 325 MG / Hydrocodone Bitartrate 5 MG Oral Tablet POLO ([facility]) hydroco/apap tab 5-325mg ATH MIREYA ([facility]) gabapentin 400 mg caps ATHE NA ([facility]) gabapentin 300 mg caps ATHE NA ([facility]) famotidine 40 mg tabs ATHEN A ([facility]) ezetimibe 10 mg tabs POLO ([facility]) doxycycline monohydrate 100 mg caps POLO ([facility]) clopidogrel 75 mg tabs ATHE NA ([facility]) Carisoprodol 350 MG Oral Tablet POLO ([facility]) carisoprodol 350 mg tabs AT JHONATAN ([facility]) atorvastatin calcium 80 mg tabs POLO ([facility]) alprazolam 0.5 mg tabs ATHE NA ([facility]) Trazodone Hydrochloride 50 MG Oral Tablet POLO ([facility]) topiramate 100 mg tabs ATHE NA ([facility]) tizanidine hydrochloride 4 mg tabs POLO ([facility]) tizanidine 4 MG Oral Tablet POLO ([facility]) Ranitidine 150 MG Oral Tablet POLO ([facility]) Prednisone 20 MG Oral Tablet POLO ([facility]) paroxetine hcl 30 mg tabs A THENA ([facility]) pantoprazole sodium 20 mg tbec POLO ([facility]) omeprazole 20 mg cpdr ATHEN A ([facility]) Nortriptyline 25 MG Oral Capsule POLO ([facility]) methylprednisolone dose pack 4 mg tbpk POLO ([facility]) topiramate 100 mg tabs ATHE NA ([facility]) tizanidine hydrochloride 4 mg tabs POLO ([facility]) Sulfamethoxazole 800 MG / Trimethoprim 160 MG Oral Tablet POLO ([facility]) Ranitidine 150 MG Oral Tablet POLO ([facility]) Prednisone 20 MG Oral Tablet POLO ([facility]) prednisone 20 mg tabs ATHEN A ([facility]) Phenazopyridine hydrochloride 200 MG Oral Tablet POLO ([facility]) paroxetine hcl 30 mg tabs A THENA ([facility]) pantoprazole sodium 20 mg tbec POLO ([facility]) pantoprazole 20 MG Delayed Release Oral Tablet POLO ([facility]) lidocaine 5 % topical patch POLO ([facility]) ipratropium/ tiff albuter ATH MIREYA ([facility]) Albuterol 0.833 MG/ML / Ipratropium [place] 0.167 MG/ML Inhalant So lution POLO ([facility]) Acetaminophen 325 MG / Hydrocodone Bitartrate 5 MG Oral Tablet POLO ([facility]) hydroco/apap tab 5-325mg ATH MIREYA ([facility]) gabapentin 400 mg caps ATHE NA ([facility]) gabapentin 300 mg caps ATHE NA ([facility]) Fluzone Quad [id number] (PF) 60 mcg (15 m cg x 4)/0.5 mL IM suspension INJECT DIRECTED POLO ([facility]) Famotidine 40 MG Oral Tablet POLO ([facility]) famotidine 40 mg tabs ATHEN A ([facility]) ezetimibe 10 mg tabs POLO ([facility]) Doxycycline Monohydrate 100 MG Oral Capsule POLO ([facility]) doxycycline monohydrate 100 mg caps POLO ([facility]) Cyclobenzaprine hydrochloride 10 MG Oral Tablet POLO ([facility]) clopidogrel 75 mg tabs ATHE NA ([facility]) Carisoprodol 350 MG Oral Tablet POLO ([facility]) carisoprodol 350 mg tabs AT JHONATAN ([facility]) atorvastatin calcium 80 mg tabs POLO ([facility]) fluticasone furoate 0.2 MG/ACTUAT Dry Powder Inhaler POLO ([facility]) umeclidinium 0.0625 MG/ACTUAT / vilanterol 0.025 MG/ACTUAT D ry Powder Inhaler POLO ([facility]) Alprazolam 0.5 MG Oral Tablet POLO ([facility]) alprazolam 0.5 mg tabs ATHE NA ([facility]) albuterol sulfate HFA 90 mcg/actuation a erosol inhaler INHALE TWO PUFFS BY MOUTH FOUR TIMES A DAY NEEDED ATHE NA ([facility]) gabapentin 400 mg caps ATHE NA ([facility]) gabapentin 300 mg caps ATHE NA ([facility]) Famotidine 40 MG Oral Tablet POLO ([facility]) famotidine 40 mg tabs ATHEN A ([facility]) ezetimibe 10 mg tabs POLO ([facility]) Doxycycline Monohydrate 100 MG Oral Capsule POLO ([facility]) doxycycline monohydrate 100 mg caps POLO ([facility]) Cyclobenzaprine hydrochloride 10 MG Oral Tablet POLO ([facility]) clopidogrel 75 mg tabs ATHE NA ([facility]) Carisoprodol 350 MG Oral Tablet POLO ([facility]) carisoprodol 350 mg tabs AT JHONATAN ([facility]) atorvastatin calcium 80 mg tabs POLO ([facility]) fluticasone furoate 0.2 MG/ACTUAT Dry Powder Inhaler POLO ([facility]) umeclidinium 0.0625 MG/ACTUAT / vilanterol 0.025 MG/ACTUAT D ry Powder Inhaler POLO ([facility]) Alprazolam 0.5 MG Oral Tablet POLO ([facility]) alprazolam 0.5 mg tabs ATHE NA ([facility]) Trazodone Hydrochloride 50 MG Oral Tablet POLO ([facility]) topiramate 100 mg tabs ATHE NA ([facility]) tizanidine hydrochloride 4 mg tabs POLO ([facility]) Sulfamethoxazole 800 MG / Trimethoprim 160 MG Oral Tablet POLO ([facility]) Ranitidine 150 MG Oral Tablet POLO ([facility]) Prednisone 20 MG Oral Tablet POLO ([facility]) prednisone 20 mg tabs ATHEN A ([facility]) Phenazopyridine hydrochloride 200 MG Oral Tablet POLO ([facility]) paroxetine hcl 30 mg tabs A THENA ([facility]) pantoprazole sodium 20 mg tbec POLO ([facility]) pantoprazole 20 MG Delayed Release Oral Tablet POLO ([facility]) Omeprazole 20 MG Delayed Release Oral Capsule POLO ([facility]) omeprazole 20 mg cpdr ATHEN A ([facility]) Nortriptyline 25 MG Oral Capsule POLO ([facility]) NITROFURANTOIN, MACROCRYSTALS 25 MG / Ni trofurantoin, Monohydrate 75 MG Oral Capsule POLO ([facility]) methylprednisolone dose pack 4 mg tbpk POLO ([facility]) methylprednisolone 4 mg tablets in a dose pack POLO ([facility]) lidocaine hcl jelly 2 % gel POLO ([facility]) Lidocaine Hydrochloride 0.02 MG/MG Topical Gel POLO ([facility]) lidocaine 5 % topical patch POLO ([facility]) ipratropium/ tiff albuter ATH MIREYA ([facility]) Albuterol 0.833 MG/ML / Ipratropium [place] 0.167 MG/ML Inhalant So lution POLO ([facility]) Acetaminophen 325 MG / Hydrocodone Bitartrate 5 MG Oral Tablet POLO ([facility]) hydroco/apap tab 5-325mg ATH MIREYA ([facility]) gabapentin 400 mg caps ATHE NA ([facility]) gabapentin 300 mg caps ATHE NA ([facility]) Famotidine 40 MG Oral Tablet POLO ([facility]) famotidine 40 mg tabs ATHEN A ([facility]) ezetimibe 10 mg tabs POLO ([facility]) Doxycycline Monohydrate 100 MG Oral Capsule POLO ([facility]) doxycycline monohydrate 100 mg caps POLO ([facility]) lidocaine hcl jelly 2 % gel POLO ([facility]) Lidocaine Hydrochloride 0.02 MG/MG Topical Gel POLO ([facility]) ipratropium/ tiff albuter ATH MIREYA ([facility]) Acetaminophen 325 MG / Hydrocodone Bitartrate 5 MG Oral Tablet POLO ([facility]) hydroco/apap tab 5-325mg ATH MIREYA ([facility]) gabapentin 400 mg caps ATHE NA ([facility]) gabapentin 300 mg caps ATHE NA ([facility]) famotidine 40 mg tabs ATHEN A ([facility]) ezetimibe 10 mg tabs POLO ([facility]) doxycycline monohydrate 100 mg caps POLO ([facility]) clopidogrel 75 mg tabs ATHE NA ([facility]) Carisoprodol 350 MG Oral Tablet POLO ([facility]) carisoprodol 350 mg tabs AT JHONATAN ([facility]) atorvastatin calcium 80 mg tabs POLO ([facility]) atorvastatin calcium 80 mg tabs POLO ([facility]) alprazolam 0.5 mg tabs ATHE NA ([facility]) Acetaminophen 325 MG / Hydrocodone Bitartrate 5 MG Oral Tablet POLO ([facility]) hydroco/apap tab 5-325mg ATH MIREYA ([facility]) gabapentin 400 mg caps ATHE NA ([facility]) gabapentin 300 mg caps ATHE NA ([facility]) famotidine 40 mg tabs ATHEN A ([facility]) ezetimibe 10 mg tabs POLO ([facility]) doxycycline monohydrate 100 mg caps POLO ([facility]) clopidogrel 75 mg tabs ATHE NA ([facility]) Carisoprodol 350 MG Oral Tablet POLO ([facility]) carisoprodol 350 mg tabs AT JHONATAN ([facility]) atorvastatin calcium 80 mg tabs POLO ([facility]) alprazolam 0.5 mg tabs ATHE NA ([facility]) Trazodone Hydrochloride 50 MG Oral Tablet POLO ([facility]) topiramate 100 mg tabs ATHE NA ([facility]) tizanidine hydrochloride 4 mg tabs POLO ([facility]) tizanidine 4 MG Oral Tablet POLO ([facility]) Ranitidine 150 MG Oral Tablet POLO ([facility]) Prednisone 20 MG Oral Tablet POLO ([facility]) paroxetine hcl 30 mg tabs A THENA ([facility]) pantoprazole sodium 20 mg tbec POLO ([facility]) omeprazole 20 mg cpdr ATHEN A ([facility]) Nortriptyline 25 MG Oral Capsule POLO ([facility]) Omeprazole 20 MG Delayed Release Oral Capsule POLO ([facility]) omeprazole 20 mg cpdr ATHEN A ([facility]) Nortriptyline 25 MG Oral Capsule POLO ([facility]) NITROFURANTOIN, MACROCRYSTALS 25 MG / Ni trofurantoin, Monohydrate 75 MG Oral Capsule POLO ([facility]) methylprednisolone dose pack 4 mg tbpk POLO ([facility]) methylprednisolone 4 mg tablets in a dose pack POLO ([facility]) lidocaine hcl jelly 2 % gel POLO ([facility]) Lidocaine Hydrochloride 0.02 MG/MG Topical Gel POLO ([facility]) gabapentin 400 mg caps ATHE NA ([facility]) gabapentin 300 mg caps ATHE NA ([facility]) famotidine 40 mg tabs ATHEN A ([facility]) ezetimibe 10 mg tabs POLO ([facility]) doxycycline monohydrate 100 mg caps POLO ([facility]) clopidogrel 75 mg tabs ATHE NA ([facility]) Carisoprodol 350 MG Oral Tablet POLO ([facility]) carisoprodol 350 mg tabs AT JHONATAN ([facility]) atorvastatin calcium 80 mg tabs POLO ([facility]) alprazolam 0.5 mg tabs ATHE NA ([facility]) methylprednisolone dose pack 4 mg tbpk POLO ([facility]) lidocaine hcl jelly 2 % gel POLO ([facility]) Lidocaine Hydrochloride 0.02 MG/MG Topical Gel POLO ([facility]) ipratropium/ tiff albuter ATH MIREYA ([facility]) Acetaminophen 325 MG / Hydrocodone Bitartrate 5 MG Oral Tablet POLO ([facility]) hydroco/apap tab 5-325mg ATH MIREYA ([facility]) gabapentin 400 mg caps ATHE NA ([facility]) gabapentin 300 mg caps ATHE NA ([facility]) famotidine 40 mg tabs ATHEN A ([facility]) ezetimibe 10 mg tabs POLO ([facility]) doxycycline monohydrate 100 mg caps POLO ([facility]) clopidogrel 75 mg tabs ATHE NA ([facility]) Carisoprodol 350 MG Oral Tablet POLO ([facility]) carisoprodol 350 mg tabs AT JHONATAN ([facility]) atorvastatin calcium 80 mg tabs POLO ([facility]) alprazolam 0.5 mg tabs ATHE NA ([facility]) Trazodone Hydrochloride 50 MG Oral Tablet POLO ([facility]) topiramate 100 mg tabs ATHE NA ([facility]) tizanidine hydrochloride 4 mg tabs POLO ([facility]) tizanidine 4 MG Oral Tablet POLO ([facility]) Ranitidine 150 MG Oral Tablet POLO ([facility]) Prednisone 20 MG Oral Tablet POLO ([facility]) paroxetine hcl 30 mg tabs A THENA ([facility]) Ranitidine 150 MG Oral Tablet POLO ([facility]) Ranitidine 150 MG Oral Tablet POLO ([facility]) alprazolam 0.5 mg tabs ATHE NA ([facility]) Trazodone Hydrochloride 50 MG Oral Tablet POLO ([facility]) topiramate 100 mg tabs ATHE NA ([facility]) tizanidine hydrochloride 4 mg tabs POLO ([facility]) tizanidine 4 MG Oral Tablet POLO ([facility]) Ranitidine 150 MG Oral Tablet POLO ([facility]) Prednisone 20 MG Oral Tablet POLO ([facility]) paroxetine hcl 30 mg tabs A THENA ([facility]) pantoprazole sodium 20 mg tbec POLO ([facility]) omeprazole 20 mg cpdr ATHEN A ([facility]) Nortriptyline 25 MG Oral Capsule POLO ([facility]) methylprednisolone dose pack 4 mg tbpk POLO ([facility]) lidocaine hcl jelly 2 % gel POLO ([facility]) Lidocaine Hydrochloride 0.02 MG/MG Topical Gel POLO ([facility]) ipratropium/ tiff albuter ATH MIREYA ([facility]) Acetaminophen 325 MG / Hydrocodone Bitartrate 5 MG Oral Tablet POLO ([facility]) hydroco/apap tab 5-325mg ATH MIREYA ([facility]) gabapentin 400 mg caps ATHE NA ([facility]) gabapentin 300 mg caps ATHE NA ([facility]) famotidine 40 mg tabs ATHEN A ([facility]) ezetimibe 10 mg tabs POLO ([facility]) doxycycline monohydrate 100 mg caps POLO ([facility]) clopidogrel 75 mg tabs ATHE NA ([facility]) Carisoprodol 350 MG Oral Tablet POLO ([facility]) carisoprodol 350 mg tabs AT JHONATAN ([facility]) Trazodone Hydrochloride 50 MG Oral Tablet POLO ([facility]) topiramate 100 mg tabs ATHE NA ([facility]) tizanidine hydrochloride 4 mg tabs POLO ([facility]) tizanidine 4 MG Oral Tablet POLO ([facility]) Ranitidine 150 MG Oral Tablet POLO ([facility]) Prednisone 20 MG Oral Tablet POLO ([facility]) paroxetine hcl 30 mg tabs A THENA ([facility]) pantoprazole sodium 20 mg tbec POLO ([facility]) omeprazole 20 mg cpdr ATHEN A ([facility]) Nortriptyline 25 MG Oral Capsule POLO ([facility]) methylprednisolone dose pack 4 mg tbpk POLO ([facility]) lidocaine hcl jelly 2 % gel POLO ([facility]) Lidocaine Hydrochloride 0.02 MG/MG Topical Gel POLO ([facility]) ipratropium/ tiff albuter ATH MIREYA ([facility]) Ranitidine 150 MG Oral Tablet POLO ([facility]) gabapentin 300 MG Oral Capsule POLO ([facility]) gabapentin 100 MG Oral Capsule POLO ([facility]) Baclofen 10 MG Oral Tablet A THENA ([facility]) hydroco/apap tab 5-325mg ATH MIREYA ([facility]) gabapentin 400 mg caps ATHE NA ([facility]) gabapentin 300 mg caps ATHE NA ([facility]) famotidine 40 mg tabs ATHEN A ([facility]) ezetimibe 10 mg tabs POLO ([facility]) doxycycline monohydrate 100 mg caps POLO ([facility]) clopidogrel 75 mg tabs ATHE NA ([facility]) Carisoprodol 350 MG Oral Tablet POLO ([facility]) carisoprodol 350 mg tabs AT JHONATAN ([facility]) atorvastatin calcium 80 mg tabs POLO ([facility]) alprazolam 0.5 mg tabs ATHE NA ([facility]) Ranitidine 150 MG Oral Tablet POLO ([facility]) Ranitidine 150 MG Oral Tablet POLO ([facility]) Prednisone 20 MG Oral Tablet POLO ([facility]) methylprednisolone 4 mg tablets in a dose pack POLO ([facility]) gabapentin 300 MG Oral Capsule POLO ([facility]) gabapentin 100 MG Oral Capsule POLO ([facility]) Doxycycline Monohydrate 100 MG Oral Capsule POLO ([facility]) Baclofen 10 MG Oral Tablet A THENA ([facility]) fluticasone furoate 0.2 MG/ACTUAT Dry Powder Inhaler POLO ([facility]) umeclidinium 0.0625 MG/ACTUAT / vilanterol 0.025 MG/ACTUAT D ry Powder Inhaler POLO ([facility]) Ranitidine 150 MG Oral Tablet POLO ([facility]) Prednisone 20 MG Oral Tablet POLO ([facility]) methylprednisolone 4 mg tablets in a dose pack POLO ([facility]) gabapentin 300 MG Oral Capsule POLO ([facility]) gabapentin 100 MG Oral Capsule POLO ([facility]) pantoprazole sodium 20 mg tbec POLO ([facility]) omeprazole 20 mg cpdr ATHEN A ([facility]) Nortriptyline 25 MG Oral Capsule POLO ([facility]) methylprednisolone dose pack 4 mg tbpk POLO ([facility]) lidocaine hcl jelly 2 % gel POLO ([facility]) Lidocaine Hydrochloride 0.02 MG/MG Topical Gel POLO ([facility]) ipratropium/ tiff albuter ATH MIREYA ([facility]) Acetaminophen 325 MG / Hydrocodone Bitartrate 5 MG Oral Tablet POLO ([facility]) Ranitidine 150 MG Oral Tablet POLO ([facility]) gabapentin 300 MG Oral Capsule POLO ([facility]) gabapentin 100 MG Oral Capsule POLO ([facility]) Baclofen 10 MG Oral Tablet A THENA ([facility]) Doxycycline Monohydrate 100 MG Oral Capsule POLO ([facility]) Baclofen 10 MG Oral Tablet A THENA ([facility]) fluticasone furoate 0.2 MG/ACTUAT Dry Powder Inhaler POLO ([facility]) umeclidinium 0.0625 MG/ACTUAT / vilanterol 0.025 MG/ACTUAT D ry Powder Inhaler POLO ([facility])
[2020-03-15] MEDS ORDERED: ZOFR4TAB16 PO (16:36)
== END 2020-03-14 16:43 | disposition left against medical advice (07) ==
LOC: M ED 15:03
DX: Z53.21 Procedure and treatment not carried out due to patient leaving prior to being seen by health care provider (principal)

== ENCOUNTER 2020-03-15 12:19 | Emergency (ER) | payer MEDICARE, MEDICAID ==
[~2020-03-15] VITALS: Ht 165.1 cm; Wt 51.8 kg
[~2020-03-15 12:19] MED LIST changes: +ANOR1AER INH; +TIZA4TAB4
--- OUTSIDE RECORDS SUMMARY | 2020-03-15 12:26 | CCD ---
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 Role Phone [facility] ([facility]) 3 [phone] Allergies Code Code System Name Reaction Severity [...] Completed 09/09/19 20 clopidogrel 75 mg tablet TAKE ONE TABLET BY MOUTH EVERY DAY Active Not available cyclobenzaprine 10 mg tablet TAKE ONE TABLET BY MOUTH EVERY DAY AT BEDTIME Completed 12/28/2019 doxycycline hyclate 100 mg capsule Completed 01/13/2018 doxycycline monohydrate 100 mg caps Completed 09/09/2019 doxycycline monohydrate 100 mg capsule Completed 12/28/2019 duloxetine 30 mg capsule,delayed release Completed 01/13/2018 estradiol 0.01% (0.1 mg/gram) vaginal cream Completed 01/13/2018 ezetimibe 10 mg tabs Completed 09/09/2019 ezetimibe 10 mg tablet TAKE ONE TABLET BY MOUTH EVERY DAY Active Not available famotidine 40 mg tabs Completed 0 famotidine [...] tbec Completed 09/09/2019 paroxetine 30 mg tablet TAKE ONE TABLET BY MOUTH EVERY MORNING Active Not available paroxetine hcl 30 mg tabs Completed 09/08 [...] tablet TAKE ONE TABLET BY MOUTH EVERY 8 HOURS NEEDED Active Not available tizanidine hydrochloride 4 mg tabs Completed 09/09/2019 topiramate 100 mg tabs Completed 09/09/19 20 topiramate 100 mg tablet TAKE ONE TABLET BY MOUTH TWO TIMES A DAY Active Not available tramadol 50 mg tablet Completed 03/03/2018 trazodone [...] 08/11/2018 MRI, Cervical Spine, W/o Contrast [employer]comb[employer] [address] [id number] (Work Place) Results Lab Results Date Name Specimen Result Interpretation Description Value Range Status Address 12/30/2019 [facility] Pdf Report NOS No observation recorded. [facility]: [address] [facility], [place] 12/30/2019 COVID-19 RNA (SARS-CoV-2), QL, manager clinical research-PCR, Respirat ory Specimen NOS Normal Sars-cov-2 negative negative Final [facility]: [address], [place] 12/10/2019 [facility] Pdf Report NOS No observation recorded. [facility]: [address], [place] 12/10/2019 COVID-19 RNA (SARS-CoV-2), QL, manager clinical research-PCR, Respirat ory Specimen NOS Normal Sars-cov-2 negative negative Final [facility]: [address], [place] 08/29/2019 COVID-19 RNA (SARS-CoV-2), QL, manager clinical research-PCR, Respiratory Specim en No observation recorded. Past Encounters 03/14/2020 Degeneration of Lumbar Intervertebral Disc; Degeneration of [...] Fracture of Thoracic Vertebra Ely Mcmullen NP: [id number] [facility] [address] [place] [address], Ph. 02/20/2020 Myofascial Pain; Degeneration of Lumbar Intervertebral [...] Fracture of Thoracic Vertebra Duy Valente MD: [address] [address], [facility] [place] [address], Ph. 01/25/2020 Degeneration of Lumbar Intervertebral Disc; [...] Fracture of Thoracic Vertebra Ely Mcmullen NP: [id number] [address], Ph. 01/05/2020 Thoracic Radiculopathy; Degeneration of Thoracic [...] of Cervical Intervertebral Disc Duy Valente MD: [id number] [place] [address], Ph. 12/30/2019 Pre-surgery Testing; Viral Screening Duy Valente MD: [address] [address], [place] [address], Ph. [phone] 12/28/2019 Degeneration of Lumbar Intervertebral Disc; Degeneration [...] Fracture of Thoracic Vertebra Ely Mcmullen NP: [address] [address], [facility] [place] [address], Ph. 12/15/2019 Lumbosacral Spondylosis without Myelopathy; Spondylosis [...] Lumbar Region; Myofascial Pain Duy Valente MD: [address] [place] [address], Ph. 12/14/2019 Lumbosacral Spondylosis without Myelopathy; Spondylosis [...] Lumbar Region; Myofascial Pain Duy Valente MD: [address] [address], [place] [address], Ph. 12/09/2019 Pre-surgery Testing; Viral Screening Duy Valente MD: [address] [address], Ph. [phone] 11/22/2019 Degeneration of Lumbar Intervertebral Disc; Degeneration [...] of Cervical Intervertebral Disc Ely Mcmullen NP: [id number] [facility] [address], [place] [address], Ph. 10/18/2019 Degeneration of Lumbar Intervertebral Disc; [...] of Cervical Intervertebral Disc Duy Valente MD: [address] [address], [place] [address], Ph. 10/06/2019 Degeneration of Lumbar Intervertebral Disc; [...] of Cervical Intervertebral Disc Ely Mcmullen NP: [id number] [facility] [address], [place] [address], Ph. 09/20/2019 Degeneration of Lumbar Intervertebral Disc; [...] of Cervical Intervertebral Disc Duy Valente MD: [id number] [address], Ph. 09/09/2019 Degeneration of Lumbar Intervertebral Disc; [...] of Cervical Intervertebral Disc Ely Mcmullen NP: [id number] [address], Ph. 09/01/2019 Lumbosacral Spondylosis without Myelopathy; Spondylosis [...] of Cervical Intervertebral Disc Duy Valente MD: [address] [address], Ph. 08/29/2019 Pre-surgery Testing; Viral Screening Duy Valente MD: [id number] [address], Ph. 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 07/15/2019 Degeneration of Lumbar Intervertebral Disc; [...] Degeneration of Cervical Intervertebral Disc Ely Mcmullen [employer] SOFTWARE ENGINEER: 13578 [facility] [address], [place] [address], Ph. 07/08/2019 Degeneration of Lumbar Intervertebral Disc; [...] of Cervical Intervertebral Disc Elyrachael Jones Benedict [employer] SOFTWARE ENGINEER: 76274 [facility], [place] [address], Ph. 03/29/2019 Myofascial Pain; Degeneration of Lumbar [...] of Cervical Intervertebral Disc Duy Valente MD: [address] [address], Ph. 03/17/2019 Degeneration of Lumbar Intervertebral Disc; [...] of Cervical Intervertebral Disc Ely Mcmullen NP: [address] [address], Ph. 01/31/2019 Lumbosacral Spondylosis without Myelopathy; Spondylosis [...] Lumbar Region; Myofascial Pain Duy Valente MD: [address] [address], Ph. 11/29/2018 Lumbosacral Spondylosis without Myelopathy; Spondylosis [...] Lumbar Region; Myofascial Pain Duy Valente MD: [address] [place] [address], Ph. 11/11/2018 Cervical Radiculopathy; Displacement of Cervical [...] Lumbar Region; Myofascial Pain Duy Valente MD: [address] [address], [place] [address], Ph. 10/27/2018 Lumbosacral Spondylosis without Myelopathy; Spondylosis [...] of Cervical Intervertebral Disc Duy Valente MD: [address] [address], [place] [address], Ph. 10/08/2018 Degeneration of Lumbar Intervertebral Disc; [...] of Cervical Intervertebral Disc Ely Mcmullen NP: 55045 [facility] [address], [facility] [place] [address], Ph. 10/04/2018 Lumbosacral Spondylosis without Myelopathy; Spondylosis [...] of Cervical Intervertebral Disc Duy Valente MD: [address] [address], [place] [address], Ph. 09/20/2018 Cervical Radiculopathy; Displacement of Cervical [...] Lumbar Region; Myofascial Pain Duy Valente MD: [address] [address], [facility] [place] [address], Ph. 09/08/2018 Degeneration of Lumbar Intervertebral Disc; [...] of Cervical Intervertebral Disc Ely Mcmullen NP: 94930 [facility] [address], [facility] [place] [address], Ph. 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 07/21/2018 Lumbar Radiculopathy; Degeneration of Lumbar Intervertebral Disc; Degeneration of Lumbosacral Intervertebral Disc; Displacement of Lumbar Intervertebral Disc without Myelopathy; Intervertebral Disc Disorder; Spondylosis without Myelopathy; Lumbosacral Spondylosis without Myelopathy; Inflammation of Sacroiliac Joint; Pain in Right Hip Joint; Spinal Stenosis of Lumbar Region; Cervical Spondylosis without Myelopathy; Myofascial Pain Duy Valente MD: [address] [address], Ph. 07/19/2018 Degeneration of Lumbar Intervertebral Disc; Degeneration of Lumbosacral Intervertebral Disc; Displacement of Lumbar Intervertebral Disc without Myelopathy; Intervertebral Disc Disorder; Spondylosis without Myelopathy; Lumbosacral Spondylosis without Myelopathy; Lumbar Radiculopathy; Inflammation of Sacroiliac Joint; Pain in Right Hip Joint; Spinal Stenosis of Lumbar Region; Cervical Spondylosis without Myelopathy; Myofascial Pain Duy Valente MD: [address] [address], Ph. 06/11/2018 Degeneration of Lumbar Intervertebral Disc; Degeneration of Lumbosacral Intervertebral Disc; Displacement of Lumbar Intervertebral Disc without Myelopathy; Intervertebral Disc Disorder; Spondylosis without Myelopathy; Lumbosacral Spondylosis without Myelopathy; Lumbar Radiculopathy; Inflammation of Sacroiliac Joint; Pain in Right Hip Joint; Spinal Stenosis of Lumbar Region; Cervical Spondylosis without Myelopathy; Myofascial Pain Ely Mcmullen [employer] SOFTWARE ENGINEER: [address] [address], Ph. 05/21/2018 Degeneration of Lumbar Intervertebral Disc; Degeneration of Lumbosacral Intervertebral Disc; Displacement of Lumbar Intervertebral Disc without Myelopathy; Intervertebral Disc Disorder; Spondylosis without Myelopathy; Lumbosacral Spondylosis without Myelopathy; Lumbar Radiculopathy; Inflammation of Sacroiliac Joint; Pain in Right Hip Joint; Spinal Stenosis of Lumbar Region; Cervical Spondylosis without Myelopathy; Myofascial Pain Duy Valente MD: [address] [address], [place] [address], Ph. 05/07/2018 Degeneration of Lumbar Intervertebral Disc; Degeneration of Lumbosacral Intervertebral Disc; Displacement of Lumbar Intervertebral Disc without Myelopathy; Intervertebral Disc Disorder; Spondylosis without Myelopathy; Lumbosacral Spondylosis without Myelopathy; Lumbar Radiculopathy; Inflammation of Sacroiliac Joint; Pain in Right Hip Joint; Spinal Stenosis of Lumbar Region; Cervical Spondylosis without Myelopathy; Myofascial Pain Duy Valente MD: [address] [address], Ph. 04/29/2018 Degeneration of Lumbar Intervertebral Disc; Degeneration of Lumbosacral Intervertebral Disc; Displacement of Lumbar Intervertebral Disc without Myelopathy; Intervertebral Disc Disorder; Spondylosis without Myelopathy; Lumbosacral Spondylosis without Myelopathy; Lumbar Radiculopathy; Inflammation of Sacroiliac Joint; Pain in Right Hip Joint; Spinal Stenosis of Lumbar Region; Cervical Spondylosis without Myelopathy; Myofascial Pain Ely Mcmullen NP: [id number] [address], Ph. 04/06/2018 Degeneration of Lumbar Intervertebral Disc; Degeneration of Lumbosacral Intervertebral Disc; Displacement of Lumbar Intervertebral Disc without Myelopathy; Intervertebral Disc Disorder; Spondylosis without Myelopathy; Lumbosacral Spondylosis without Myelopathy; Lumbar Radiculopathy; Inflammation of Sacroiliac Joint; Pain in Right Hip Joint; Spinal Stenosis of Lumbar Region; Cervical Spondylosis without Myelopathy; Myofascial Pain Duy Valente MD: [address] [address], Ph. 03/03/2018 Degeneration of Lumbar Intervertebral Disc; Degeneration of Lumbosacral Intervertebral Disc; Displacement of Lumbar Intervertebral Disc without Myelopathy; Intervertebral Disc Disorder; Spondylosis without Myelopathy; Lumbosacral Spondylosis without Myelopathy; Lumbar Radiculopathy; Inflammation of Sacroiliac Joint; Pain in Right Hip Joint; Spinal Stenosis of Lumbar Region; Cervical Spondylosis without Myelopathy; Myofascial Pain Ely Mcmullen NP: [address] [address], [place] [address], Ph. 01/28/2018 Degeneration of Lumbar Intervertebral Disc; Degeneration of Lumbosacral Intervertebral Disc; Displacement of Lumbar Intervertebral Disc without Myelopathy; Intervertebral Disc Disorder; Spondylosis without Myelopathy; Lumbosacral Spondylosis without Myelopathy; Lumbar Radiculopathy; Inflammation of Sacroiliac Joint; Pain in Right Hip Joint; Spinal Stenosis of Lumbar Region Duy Valente MD: [address] [address], [place] [address], Ph. 01/13/2018 Degeneration of Lumbar Intervertebral Disc; Degeneration of Lumbosacral Intervertebral Disc; Displacement of Lumbar Intervertebral Disc without Myelopathy; Intervertebral Disc Disorder; Spondylosis without Myelopathy; Lumbosacral Spondylosis without Myelopathy; Lumbar Radiculopathy; Inflammation of Sacroiliac Joint; Pain in Right Hip Joint; Spinal Stenosis of Lumbar Region Duy Valente MD: [address] [address], [place] [address], Ph. Social History Tobacco Smoking Status Heavy [...]
--- OUTSIDE RECORDS SUMMARY | 2020-03-15 13:09 | CCD ---
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 Name Role Phone Jumalon, M Ely GLOBAL MANAGER Unavailable Unavailable Jumalon, M Ely GLOBAL MANAGER Unavailable Unavailable Jumalon, M Ely GLOBAL MANAGER Unavailable Unavailable Jumalon, M Ely GLOBAL MANAGER Unavailable Unavailable Jumalon, M Ely GLOBAL MANAGER Unavailable Unavailable Jumalon, M Ely GLOBAL MANAGER Unavailable Unavailable Jumalon, M Ely GLOBAL MANAGER Unavailable Unavailable Jumalon, M Ely GLOBAL MANAGER Unavailable Unavailable Jumalon, M Ely GLOBAL MANAGER Unavailable Unavailable Jumalon, M Ely GLOBAL MANAGER Unavailable Unavailable Jumalon, M Ely GLOBAL MANAGER Unavailable Unavailable Jumalon, M Ely GLOBAL MANAGER Unavailable Unavailable Jumalon, M Ely GLOBAL MANAGER Unavailable Unavailable Jumalon, M Ely GLOBAL MANAGER Unavailable Unavailable Jumalon, M Ely GLOBAL MANAGER Unavailable Unavailable Jumalon, M Ely GLOBAL MANAGER Unavailable Unavailable Jumalon, M Ely GLOBAL MANAGER Unavailable Unavailable Jumalon, M Ely GLOBAL MANAGER Unavailable Unavailable Jumalon, M Ely GLOBAL MANAGER Unavailable Unavailable Jumalon, M Ely GLOBAL MANAGER Unavailable Unavailable Jumalon, M Ely GLOBAL MANAGER Unavailable Unavailable Jumalon, M Ely GLOBAL MANAGER Unavailable Unavailable Jumalon, M Ely GLOBAL MANAGER Unavailable Unavailable Jumalon, M Ely GLOBAL MANAGER Unavailable Unavailable Jumalon, M Ely GLOBAL MANAGER Unavailable Unavailable Jumalon, M Ely GLOBAL MANAGER Unavailable Unavailable Jumalon, M Ely GLOBAL MANAGER Unavailable Unavailable Jumalon, M Ely GLOBAL MANAGER Unavailable Unavailable Jumalon, M Ely GLOBAL MANAGER Unavailable Unavailable Jumalon, M Ely GLOBAL MANAGER Unavailable Unavailable Jumalon, M Ely GLOBAL MANAGER Unavailable Unavailable Jumalon, M Ely GLOBAL MANAGER Unavailable Unavailable Jumalon, M Ely GLOBAL MANAGER Unavailable Unavailable Jumalon, M Ely GLOBAL MANAGER Unavailable Unavailable Jumalon, M Ely GLOBAL MANAGER Unavailable Unavailable Jumalon, M Ely GLOBAL MANAGER Unavailable Unavailable Jumalon, M Ely GLOBAL MANAGER Unavailable Unavailable Jumalon, M Ely GLOBAL MANAGER Unavailable Unavailable Jumalon, M Ely GLOBAL MANAGER Unavailable Unavailable Jumalon, M Ely GLOBAL MANAGER Unavailable Unavailable Jumalon, M Ely GLOBAL MANAGER Unavailable Unavailable Jumalon, M Ely GLOBAL MANAGER Unavailable Unavailable Jumalon, M Ely GLOBAL MANAGER Unavailable Unavailable Jumalon, M Ely GLOBAL MANAGER Unavailable Unavailable Jumalon, M Ely GLOBAL MANAGER Unavailable Unavailable Jumalon, M Ely GLOBAL MANAGER Unavailable Unavailable Jumalon, M Ely GLOBAL MANAGER Unavailable Unavailable Jumalon, M Ely GLOBAL MANAGER Unavailable Unavailable Jumalon, M Ely GLOBAL MANAGER Unavailable Unavailable Jumalon, M Ely GLOBAL MANAGER Unavailable Unavailable Jumalon, M Ely GLOBAL MANAGER Unavailable Unavailable Jumalon, M Ely GLOBAL MANAGER Unavailable Unavailable Jumalon, M Ely GLOBAL MANAGER Unavailable Unavailable Jumalon, M Ely GLOBAL MANAGER Unavailable Unavailable Jumalon, M Ely GLOBAL MANAGER Unavailable Unavailable COOK, B BRANDT RAILROAD BAGGAGE PORTER Unavailable Unavailable COOK, B BRANDT RAILROAD BAGGAGE PORTER Unavailable Unavailable COOK, B BRANDT RAILROAD BAGGAGE PORTER Unavailable Unavailable COOK, B BRANDT RAILROAD BAGGAGE PORTER Unavailable Unavailable COOK, B BRANDT RAILROAD BAGGAGE PORTER Unavailable Unavailable COOK, B BRANDT RAILROAD BAGGAGE PORTER Unavailable Unavailable COOK, B BRANDT RAILROAD BAGGAGE PORTER Unavailable Unavailable COOK, B BRANDT RAILROAD BAGGAGE PORTER Unavailable Unavailable COOK, B BRANDT RAILROAD BAGGAGE PORTER Unavailable Unavailable COOK, B BRADNT RAILROAD BAGGAGE PORTER Unavailable Unavailable COOK, B BRANDT RAILROAD BAGGAGE PORTER Unavailable Unavailable COOK, B BRANDT RAILROAD BAGGAGE PORTER Unavailable Unavailable COOK, B BRANDT RAILROAD BAGGAGE PORTER Unavailable Unavailable COOK, B BRANDT RAILROAD BAGGAGE PORTER Unavailable Unavailable COOK, B BRANDT RAILROAD BAGGAGE PORTER Unavailable Unavailable COOK, B BRANDT RAILROAD BAGGAGE PORTER Unavailable Unavailable COOK, B BRANDT RAILROAD BAGGAGE PORTER Unavailable Unavailable COOK, B BRANDT RAILROAD BAGGAGE PORTER Unavailable Unavailable COOK, B BRANDT RAILROAD BAGGAGE PORTER Unavailable Unavailable COOK, B BRANDT RAILROAD BAGGAGE PORTER Unavailable Unavailable COOK, B BRANDT RAILROAD BAGGAGE PORTER Unavailable Unavailable COOK, B BRANDT RAILROAD BAGGAGE PORTER Unavailable Unavailable COOK, B BRANDT RAILROAD BAGGAGE PORTER Unavailable Unavailable COOK, B BRANDT RAILROAD BAGGAGE PORTER Unavailable Unavailable COOK, B BRANDT RAILROAD BAGGAGE PORTER Unavailable Unavailable COOK, B BRANDT RAILROAD BAGGAGE PORTER Unavailable Unavailable COOK, B BRANDT RAILROAD BAGGAGE PORTER Unavailable Unavailable COOK, B BRANDT RAILROAD BAGGAGE PORTER Unavailable Unavailable COOK, B BRANDT RAILROAD BAGGAGE PORTER Unavailable Unavailable COOK, B BRANDT RAILROAD BAGGAGE PORTER Unavailable Unavailable COOK, B BRANDT RAILROAD BAGGAGE PORTER Unavailable Unavailable COOK, B BRANDT RAILROAD BAGGAGE PORTER Unavailable Unavailable COOK, B BRANDT RAILROAD BAGGAGE PORTER Unavailable Unavailable COOK, B BRANDT RAILROAD BAGGAGE PORTER Unavailable Unavailable COOK, B BRANDT RAILROAD BAGGAGE PORTER Unavailable Unavailable COOK, B BRANDT RAILROAD BAGGAGE PORTER Unavailable Unavailable COOK, B BRANDT RAILROAD BAGGAGE PORTER Unavailable Unavailable COOK, B BRANDT RAILROAD BAGGAGE PORTER Unavailable Unavailable COOK, B BRANDT RAILROAD BAGGAGE PORTER Unavailable Unavailable COOK, B BRANDT RAILROAD BAGGAGE PORTER Unavailable Unavailable COOK, B BRANDT RAILROAD BAGGAGE PORTER Unavailable Unavailable COOK, B BRANDT RAILROAD BAGGAGE PORTER Unavailable Unavailable COOK, B BRANDT RAILROAD BAGGAGE PORTER Unavailable Unavailable COOK, B BRANDT RAILROAD BAGGAGE PORTER Unavailable Unavailable COOK, B BRANDT RAILROAD BAGGAGE PORTER Unavailable Unavailable COOK, B BRANDT RAILROAD BAGGAGE PORTER Unavailable Unavailable COOK, B BRANDT RAILROAD BAGGAGE PORTER Unavailable Unavailable COOK, B BRANDT RAILROAD BAGGAGE PORTER Unavailable Unavailable COOK, B BRANDT RAILROAD BAGGAGE PORTER Unavailable Unavailable COOK, B BRANDT RAILROAD BAGGAGE PORTER Unavailable Unavailable COOK, B BRANDT RAILROAD BAGGAGE PORTER Unavailable Unavailable COOK, B BRANDT RAILROAD BAGGAGE PORTER Unavailable Unavailable COOK, B BRANDT RAILROAD BAGGAGE PORTER Unavailable Unavailable COOK, B BRANDT RAILROAD BAGGAGE PORTER Unavailable Unavailable COOK, B BRANDT RAILROAD BAGGAGE PORTER Unavailable Unavailable COOK, B BRANDT RAILROAD BAGGAGE PORTER Unavailable Unavailable COOK, B BRANDT RAILROAD BAGGAGE PORTER Unavailable Unavailable COOK, B BRANDT RAILROAD BAGGAGE PORTER Unavailable Unavailable COOK, B BRANDT RAILROAD BAGGAGE PORTER Unavailable Unavailable COOK, B BRANDT RAILROAD BAGGAGE PORTER Unavailable Unavailable COOK, B BRANDT RAILROAD BAGGAGE PORTER Unavailable Unavailable COOK, B BRANDT RAILROAD BAGGAGE PORTER Unavailable Unavailable COOK, B BRANDT RAILROAD BAGGAGE PORTER Unavailable Unavailable COOK, B BRANDT RAILROAD BAGGAGE PORTER Unavailable Unavailable Jonathan Valente MD Unavailable Unavailable Bolrashad, Jonathan Gordillo MD Unavailable [...] S Duy CAMARILLO Unavailable Unavailable Bolla, S uDy CAMARILLO Unavailable Unavailable Bolla, Jonathan Gordillo MD [...] Unavailable Bolla, Jonathan Gordillo MD Unavailable Unavailable Bolrashad, Jonathan Gordillo MD Unavailable [...] Unavailable Estrada, L Mir CAMARILLO Unavailable Unavailable Re-disclosure Warning The records that [...] is protected by Article 27-F of the [facility] Public Health law. If you continue you may have access to information: Regarding HIV / AIDS; Provided by facilities licensed or operated by the [facility] Office of Mental Health; or Provided by the [facility] Office for People With Developmental Disabilities. If such information is present, then the following [facility] mandated warning applies: This information has [...] law may result in a fine or chcf sentence or both. A general authorization for the release of medical or other information is NOT sufficient authorization for further disc losure. Allergies and Adverse Reactions Type Description Substance Reaction Status Data Source(s ) Drug allergy Chantix varenicline depression Active eCW1 ([facility]) Wellbutrin Wellbutrin Wellbutrin Nightmares Active eCW1 ([facility]) Wellbutrin Wellbutrin Wellbutrin Nightmares Active eCW1 ([facility]) Wellbutrin Wellbutrin Wellbutrin Nightmares Active eCW1 ([facility]) Wellbutrin Wellbutrin Wellbutrin Nightmares Active eCW1 ([facility]) Wellbutrin Wellbutrin Wellbutrin Nightmares Active eCW1 ([facility]) Family History Family Member Name Family Member Gender Family Member Status Date o f Status Description Data Source(s) Unknown Unknown Problem MEDENT ([facility]) Unknown Male Problem MEDENT ([facility]) () - age 57 Encounters Encounter Providers Location Date Indications Data Source(s ) Ely Mcmullen [employer]RO[employer] PORTER: [address], [place] [address], Ph. Attender: Ely VILLALOBOS [facility] 03/14/2020 12:00:00 AM EST ATHE NA ([facility]) Outpatient Attender: Carmelita Jason MD [facility] 03/07/2020 08:00:00 AM EST MEDENT ([facility]) Unknown [address] [facility], [place] [address] 03/06/2020 12:00:00 AM EST eCW1 ([facility]) [place] [address] [facility] [place] [address] 02/23/2020 12:00:00 AM EST eCW1 ([facility]) Duy Valente MD: [address], [place] [address], Ph. Attender: Duy Valente MD [facility] 02/20/2020 12:00:00 AM EST POLO ([facility]) Duy Valente MD: [address], [place] [address], Ph. Attender: Duy Valente MD [facility] 02/20/2020 12:00:00 AM EST POLO ([facility]) Office Visit Attender: CHASIDY Johnston/Estiven/Amandeep/Luan dl 01/30/2020 01:00:00 PM EST MEDENT ([facility]) Ely Mcmullen [employer]RO[employer] PORTER: [address], [place] [address], Ph. Attender: Ely Mcmullen [facility] 01/25/2020 12:00:00 AM EST ATHE NA ([facility]) Ely Mcmullen, RAILROAD BAGGAGE PORTER: [address], [place] [address], Ph. Attender: Ely Mcmullen [facility] - [facility] 01/25/2020 12:00:00 AM EST ATHE NA ([facility]) Ely Mcmullen, RAILROAD BAGGAGE PORTER: [address], [facility] [place] [address], Ph. Attender: Ely Mcmullen [facility] 01/25/2020 12:00:00 AM EST ATHE NA ([facility]) Unknown [address] [facility] [address] 01/10/2020 12:00:00 AM EST eCW1 ([facility]) Duy Valente MD: [address], [facility] [place] [address], Ph. Attender: Duy Valente [place] - [facility] 01/05/2020 12:00:00 AM EST POLO ([facility]) Duy Valente MD: [address], [place] [address], Ph. Attender: Duy Valente [place] - [facility] 01/05/2020 12:00:00 AM EST POLO ([facility]) Duy Valente MD: [address], [place] [address], Ph. Attender: Duy Valente [place] - [facility] 01/05/2020 12:00:00 AM EST POLO ([facility]) Duy Valente MD: [address], [place] [address], Ph. Attender: Duy MULTANI - [facility] 01/05/2020 12:00:00 AM EST POLO ([facility]) Duy Valente MD: [address], [place] [address], Ph. Attender: Duy MULTANI - [facility] 01/05/2020 12:00:00 AM EST POLO ([facility]) Unknown [address] [facility], [facility] [address] 01/02/2020 12:00:00 AM EST eCW1 ([facility]) Duy Valente MD: [address], [place] [address], Ph. [phone] Attender: Duy MULTANI - [facility] 12/30/2019 12:00:00 AM EST POLO ([facility]) Duy Valente MD: [address], [place] [address], Ph. [phone] Attender: Duy MULTANI - [facility] 12/30/2019 12:00:00 AM EST POLO ([facility]) Duy Valente MD: [address], [place] [address], Ph. [phone] Attender: Duy MULTANI - [facility] 12/30/2019 12:00:00 AM EST POLO ([facility]) Duy Valente MD: [address], [place] [address], Ph. [phone] Attender: Duy Valente [place] - [facility] 12/30/2019 12:00:00 AM EST POLO ([facility]) Duy Valente MD: [address], [place] [address], Ph. [phone] Attender: Duy Valente MD [place] - [facility] 12/30/2019 12:00:00 AM EST POLO ([facility]) Duy Valente MD: [address], [address], [place] [address], Ph. [phone] Attender: Duy Valente MD [place] - [facility] 12/30/2019 12:00:00 AM EST POLO ([facility]) Ely Juliopernellsam Mcmullen, RAILROAD BAGGAGE PORTER: [address], [place] [address], Ph. Attender: Ely Mcmullen [facility] - [facility] 12/28/2019 12:00:00 AM EST ATHE NA ([facility]) Elyzander Mcmullen, RAILROAD BAGGAGE PORTER: [address], [place] [address], Ph. Attender: Ely Mcmullen [facility] 12/28/2019 12:00:00 AM EST ATHE NA ([facility]) Elyzander Mcmullen, RAILROAD BAGGAGE PORTER: [address], [place] [address], Ph. Attender: Ely Mcmullen [facility] - [facility] 12/28/2019 12:00:00 AM EST ATHE NA ([facility]) Ely Mcmullen, RAILRO[employer] BAGGAGE PORTER: [address], [place] [address], Ph. Attender: Ely Mcmullen [facility] - [facility] 12/28/2019 12:00:00 AM EST ATHE NA ([facility]) Ely Mcmullen, RAILROAD BAGGAGE PORTER: [address], [place] [address], Ph. Attender: Ely Mcmullen [facility] - [facility] 12/28/2019 12:00:00 AM EST ATHE NA ([facility]) Ely Mcmullen, RAILROAD BAGGAGE PORTER: [address], [place] [address], Ph. Attender: Ely Mcmullen [facility] - [facility] 12/28/2019 12:00:00 AM EST ATHE NA ([facility]) Unknown [address] [facility] [address] 12/28/2019 12:00:00 AM EST eCW1 ([facility]) Ely Mcmullen, RAILROAD BAGGAGE PORTER: [address], [place] [address], Ph. Attender: Ely Mcmullen [facility] - [facility] 12/28/2019 12:00:00 AM EST ATHE NA ([facility]) Unknown [address] [facility], [place] [address] 12/26/2019 12:00:00 AM EST eCW1 ([facility]) Duy Valente MD: [address], [place] [address], Ph. Attender: Duy MULTANI - [facility] 12/15/2019 12:00:00 AM EDT POLO ([facility]) Duy Valente MD: [address], [address], [place] [address], Ph. Attender: Duy Valente MD [place] - [facility] 12/15/2019 12:00:00 AM EDT POLO ([facility]) Duy Valente MD: [address], [address], [place] [address], Ph. Attender: Duy Valente MD [place] - [facility] 12/15/2019 12:00:00 AM EDT POLO ([facility]) Duy Valente MD: [address], [address], [place] [address], Ph. Attender: Duy Valente MD [place] - [facility] 12/15/2019 12:00:00 AM EDT POLO ([facility]) Duy Valente MD: [address], [address], [place] [address], Ph. Attender: Duy MULTANI - [facility] 12/15/2019 12:00:00 AM EDT POLO ([facility]) Duy Valente MD: [address], [address], [place] [address], Ph. Attender: Duy MULTANI - [facility] 12/15/2019 12:00:00 AM EDT POLO ([facility]) Duy Valente MD: [address], [address], [place] [address], Ph. Attender: Duy MULTANI - [facility] 12/15/2019 12:00:00 AM EDT POLO ([facility]) Duy Valente MD: [address], [address], [place] [address], Ph. Attender: Duy Valente MD [place] - [facility] 12/15/2019 12:00:00 AM EDT POLO ([facility]) Duy Valente MD: [address], [address], [place] [address], Ph. Attender: Duy MULTANI - [facility] 12/14/2019 12:00:00 AM EDT POLO ([facility]) Duy Valente MD: [address], [place] [address], Ph. Attender: Duy Valente MD [place] - [facility] 12/14/2019 12:00:00 AM EDT POLO ([facility]) Duy Valente MD: [address], [address], [place] [address], Ph. Attender: Duy Valente MD [place] - [facility] 12/14/2019 12:00:00 AM EDT POLO ([facility]) Duy Valente MD: [address], [place] [address], Ph. Attender: Duy MULTANI - [facility] 12/14/2019 12:00:00 AM EDT POLO ([facility]) Duy Valente MD: [address], [place] [address], Ph. Attender: Duy Valente MD [place] - [facility] 12/14/2019 12:00:00 AM EDT POLO ([facility]) Duy Valente MD: [address], [place] [address], Ph. Attender: Duy MULTANI - [facility] 12/14/2019 12:00:00 AM EDT POLO ([facility]) Duy Valente MD: [address], [address], [place] [address], Ph. Attender: Duy MULTANI - [facility] 12/14/2019 12:00:00 AM EDT POLO ([facility]) Duy Valente MD: [address], [place] [address], Ph. Attender: Duy MULTANI - [facility] 12/14/2019 12:00:00 AM EDT PLOO ([facility]) Duy Valente MD: [address], [place] [address], Ph. Attender: Duy MULTANI - [facility] 12/14/2019 12:00:00 AM EDT POLO ([facility]) Outpatient [address] [facility] [address] 12/13/2019 12:00:00 AM EDT eCW ([facility]) Duy Valente MD: [address], [place] [address], Ph. [phone] Attender: Duy MULTANI - [facility] 12/09/2019 12:00:00 AM EDT POLO ([facility]) Duy Valente MD: [address], [place] [address], Ph. [phone] Attender: Duy MULTANI - [facility] 12/09/2019 12:00:00 AM EDT POLO ([facility]) Duy Valente MD: [address], [address], [place] [address], Ph. [phone] Attender: Duy Valente MD [place] - [facility] 12/09/2019 12:00:00 AM EDT POLO ([facility]) Duy Valente MD: [address], [address], [place] [address], Ph. [phone] Attender: Duy MULTANI - [facility] 12/09/2019 12:00:00 AM EDT POLO ([facility]) Duy Valente MD: [address], [address], [place] [address], Ph. [phone] Attender: Duy MULTANI - [facility] 12/09/2019 12:00:00 AM EDT POLO ([facility]) Duy Valente MD: [address], [address], [place] [address], Ph. [phone] Attender: Duy MULTANI - [facility] 12/09/2019 12:00:00 AM EDT POLO ([facility]) Duy Valente MD: [address], [address], [place] [address], Ph. [phone] Attender: Duy MULTANI - [facility] 12/09/2019 12:00:00 AM EDT POLO ([facility]) Duy Valente MD: [address], [address], [place] [address], Ph. [phone] Attender: Duy MULTANI - [facility] 12/09/2019 12:00:00 AM EDT POLO ([facility]) Duy Valente MD: [address], [address], [place] [address], Ph. [phone] Attender: Duy Valente MD [place] - [facility] 12/09/2019 12:00:00 AM EDT POLO ([facility]) Duy Valente MD: [address], [address], [place] [address], Ph. [phone] Attender: Duy Valente [place] - [facility] [facility] 12/09/2019 12:00:00 AM EDT POLO ([facility]) Ely Mcmullen, RAILROAD BAGGAGE PORTER: [address], [place] [address], Ph. Attender: Ely Mcmullen [facility] - [facility] 11/22/2019 12:00:00 AM EDT ATHShy NA ([facility]) Ely Mcmullen, RAILROAD BAGGAGE PORTER: [address], [place] [address], Ph. Attender: Ely Mcmullen [facility] - [facility] 11/22/2019 12:00:00 AM EDT ATHShy ERWIN ([facility]) Ely Mcmullen, RAILROAD BAGGAGE PORTER: [address], [place] [address], Ph. Attender: Ely Mcmullen [facility] - [facility] 11/22/2019 12:00:00 AM EDT ATHShy NA ([facility]) Ely Mcmullen, RAILROAD BAGGAGE PORTER: [address], [place] [address], Ph. Attender: Ely Mcmullen [facility] - [facility] 11/22/2019 12:00:00 AM EDT ATHE NA ([facility]) Ely Mcmullen, RAILROAD BAGGAGE PORTER: [address], [place] [address], Ph. Attender: Ely Mcmullen [facility] 11/22/2019 12:00:00 AM EDT ATHE NA ([facility]) Ely Mcmullen, RAILROAD BAGGAGE PORTER: [address], [address], [place] [address], Ph. Attender: Ely Jeanekoffisara [facility] 11/22/2019 12:00:00 AM EDT ATHE NA ([facility]) Ely Mcmullen, RAILROAD BAGGAGE PORTER: [address], [place] [address], Ph. Attender: Ely Mcmullen [facility] 11/22/2019 12:00:00 AM EDT ATHE NA ([facility]) Ely Mcmullen, RAILROAD BAGGAGE PORTER: [address], [place] [address], Ph. Attender: Ely Mcmullen [facility] 11/22/2019 12:00:00 AM EDT ATHE NA ([facility]) Ely Mcmullen, RAILROAD BAGGAGE PORTER: [address], [address], [place] [address], Ph. Attender: Ely Mcmullen [facility] 11/22/2019 12:00:00 AM EDT ATHE NA ([facility]) Ely Mcmullen, RAILROAD BAGGAGE PORTER: [address], [place] [address], Ph. Attender: Ely Mcmullen [employer] [place] - [facility] 11/22/2019 12:00:00 AM EDT ATHShy ERWIN ([facility]) Ely Mcmullen, RAILROAD BAGGAGE PORTER: [address], [place] [address], Ph. Attender: Ely Mcmullen [facility] - [facility] 11/22/2019 12:00:00 AM EDT ATHShy ERWIN ([facility]) Unknown [address] [facility] [address] 11/21/2019 12:00:00 AM EDT eC ([facility]) Duy Valente MD: 40658 [address], [facility] [place] [address], Ph. Attender: Duy Valente MD [place] - [facility] 10/18/2019 12:00:00 AM EDT POLO ([facility]) Duy Valente MD: [address]77 [address], [place] [address], Ph. Attender: Duy Valente MD [place] - [facility] 10/18/2019 12:00:00 AM EDT POLO ([facility]) Duy Valente MD: 90374 [address], [place] [address], Ph. Attender: Duy Valente MD [place] - [facility] 10/18/2019 12:00:00 AM EDT POLO ([facility]) Duy Valente MD: 92547 [address], [place] [address], Ph. Attender: Duy Valente MD [place] - [facility] 10/18/2019 12:00:00 AM EDT POLO ([facility]) Duy Valente MD: 86548 [address], [address], [place] [address], Ph. Attender: Duy Valente MD [place] - [facility] 10/18/2019 12:00:00 AM EDT POLO ([facility]) Duy Valente MD: 18993 [address], [address], [place] [address], Ph. Attender: Duy MULTANI - [facility] 10/18/2019 12:00:00 AM EDT POLO ([facility]) Duy Valente MD: 78186 [address], [address], [place] [address], Ph. Attender: Duy MULTANI - [facility] 10/18/2019 12:00:00 AM EDT POLO ([facility]) Duy Valente MD: 84670 [address], [address], [place] [address], Ph. Attender: Duy MULTANI - [facility] 10/18/2019 12:00:00 AM EDT POLO ([facility]) Duy Valente MD: 24345 [address], [address], [place] [address], Ph. Attender: Duy MULTANI - [facility] 10/18/2019 12:00:00 AM EDT POLO ([facility]) Duy Valente MD: 53809 [address], [address], [place] [address], Ph. Attender: Duy MULTANI - [facility] 10/18/2019 12:00:00 AM EDT POLO ([facility]) Duy Valente MD: 58150 [address], [address], [place] [address], Ph. Attender: Duy Valente MD [place] - [facility] 10/18/2019 12:00:00 AM EDT POLO ([facility]) Duy Valente MD: 53481 [address], [address], [place] [address], Ph. Attender: Duy Valente MD [place] - [facility] 10/18/2019 12:00:00 AM EDT POLO ([facility]) Ely Mcmullen, RAILROAD BAGGAGE PORTER: [address]80 [address], [address], [place] [address], Ph. Attender: Ely Mcmullen [facility] - [facility] 10/06/2019 12:00:00 AM EDT ATHE NA ([facility]) Ely Mcmullen, RAILROAD BAGGAGE PORTER: [address]403 [address], [address], [place] [address], Ph. Attender: Ely Mcmullen [facility] - [facility] 10/06/2019 12:00:00 AM EDT ATHShy NA ([facility]) Ely Mcmullen, RAILROAD BAGGAGE PORTER: [address]27 [address], [address], [place] [address], Ph. Attender: Ely Mcmullen [facility] - [facility] 10/06/2019 12:00:00 AM EDT ATHE NA ([facility]) Ely Mcmullen, RAILROAD BAGGAGE PORTER: [address]81 [address], [place] [address], Ph. Attender: Ely Mcmullen [facility] - [facility] 10/06/2019 12:00:00 AM EDT ATHE NA ([facility]) Ely Mcmullen, RAILROAD BAGGAGE PORTER: 69643 [address], [place] [address], Ph. Attender: Ely Mcmullen [facility] - [facility] 10/06/2019 12:00:00 AM EDT ATHE NA ([facility]) Ely Mcmullen, RAILROAD BAGGAGE PORTER: [address]754 [address], [place] [address], Ph. Attender: Ely Mcmullen [facility] - [facility] 10/06/2019 12:00:00 AM EDT ATHE NA ([facility]) Ely Mcmullen, RAILROAD BAGGAGE PORTER: [address]149 [address], [place] [address], Ph. Attender: Ely Mcmullen [facility] - [facility] 10/06/2019 12:00:00 AM EDT ATHE NA ([facility]) Ely Mcmullen, RAILROAD BAGGAGE PORTER: [address]854 [address], [place] [address], Ph. Attender: Ely Mcmullen [facility] - [facility] 10/06/2019 12:00:00 AM EDT ATHE NA ([facility]) Ely Mcmullen, RAILROAD BAGGAGE PORTER: [address]993 [address], [address], [place] [address], Ph. Attender: Ely Mcmullen [facility] - [facility] 10/06/2019 12:00:00 AM EDT ATHE NA ([facility]) Ely Mcmullen, RAILROAD BAGGAGE PORTER: [address]34 [address], [address], [place] [address], Ph. Attender: Ely Mcmullen [facility] - [facility] 10/06/2019 12:00:00 AM EDT ATHE NA ([facility]) Ely Mcmullen, RAILROAD BAGGAGE PORTER: [address]49 [address], [place] [address], Ph. Attender: Ely Mcmullen [facility] - [facility] 10/06/2019 12:00:00 AM EDT ATHE NA ([facility]) Ely Mcmullen, RAILROAD BAGGAGE PORTER: [address]244 [address], [address], [place] [address], Ph. Attender: Ely Mcmullen [facility] - [facility] 10/06/2019 12:00:00 AM EDT ATHE NA ([facility]) Ely Mcmullen, RAILROAD BAGGAGE PORTER: [address]32 [address], [place] [address], Ph. Attender: Ely Mcmullen [facility] - [facility] 10/06/2019 12:00:00 AM EDT ATHE NA ([facility]) Office Visit Attender: CHASIDY Johnston/Estiven/Amandeep/Rein dl 09/28/2019 02:00:00 PM EDT MEDENT ([facility]) Duy Valente MD: 00603 [address], [place] [address], Ph. Attender: Duy Valente MD [place] - [facility] 09/20/2019 12:00:00 AM EDT POLO ([facility]) Duy Valente MD: 53314 [address], [place] [address], Ph. Attender: Duy MULTANI - [facility] 09/20/2019 12:00:00 AM EDT POLO ([facility]) Duy Valente MD: 33605 [address], [address], [place] [address], Ph. Attender: Duy MULTANI - [facility] 09/20/2019 12:00:00 AM EDT POLO ([facility]) Duy Valente MD: 93903 [address], [address], [place] [address], Ph. Attender: Duy MULTANI - [facility] 09/20/2019 12:00:00 AM EDT POLO ([facility]) Duy Valente MD: 43412 [address], [address], [place] [address], Ph. Attender: Duy MULTANI - [facility] 09/20/2019 12:00:00 AM EDT POLO ([facility]) Duy Valente MD: 96577 [address], [address], [place] [address], Ph. Attender: Duy MULTANI - [facility] 09/20/2019 12:00:00 AM EDT POLO ([facility]) Duy Valente MD: 38771 [address], [address], [place] [address], Ph. Attender: Duy MULTANI - [facility] 09/20/2019 12:00:00 AM EDT POLO ([facility]) Duy Valente MD: 71588 [address], [address], [place] [address], Ph. Attender: Duy MULTANI - [facility] 09/20/2019 12:00:00 AM EDT POLO ([facility]) Duy Valente MD: 36564 [address], [address], [place] [address], Ph. Attender: Duy MULTANI - [facility] 09/20/2019 12:00:00 AM EDT POLO ([facility]) Duy Valente MD: 68072 [address], [address], [place] [address], Ph. Attender: Duy MULTANI - [facility] 09/20/2019 12:00:00 AM EDT POLO ([facility]) Duy Valente MD: 60607 [address], [address], [place] [address], Ph. Attender: Duy MULTANI - [facility] 09/20/2019 12:00:00 AM EDT POLO ([facility]) Duy Valente MD: 63392 [address], [address], [place] [address], Ph. Attender: Duy MULTANI - [facility] 09/20/2019 12:00:00 AM EDT POLO ([facility]) Duy Valente MD: 84350 [address], [address], [place] [address], Ph. Attender: Duy MULTANI - [facility] 09/20/2019 12:00:00 AM EDT POLO ([facility]) Duy Valente MD: 18656 [address], [address], [place] [address], Ph. Attender: Duy MULTANI - [facility] 09/20/2019 12:00:00 AM EDT POLO ([facility]) Ely Mcmullen, RAILROAD BAGGAGE PORTER: [address]11 [address], [place] [address], Ph. Attender: Ely Mcmullen [facility] - [facility] 09/09/2019 12:00:00 AM EDT ATHE NA ([facility]) Ely Jones Jeanestef, RAILROAD BAGGAGE PORTER: 65692 [address], [address], [place] [address], Ph. Attender: Ely Mcmullen [facility] - [facility] 09/09/2019 12:00:00 AM EDT ATHShy ERWIN ([facility]) Ely Juliohaley Benedict, RAILROAD BAGGAGE PORTER: 84436 [address], [address], [place] [address], Ph. Attender: Ely Mcmullen [facility] - [facility] 09/09/2019 12:00:00 AM EDT ATHShy NA ([facility]) Ely Jones Briseidasara, RAILROAD BAGGAGE PORTER: 21741 [address], [address], [place] [address], Ph. Attender: Ely Mcmullen [facility] - [facility] 09/09/2019 12:00:00 AM EDT ATHE NA ([facility]) Ely Jones Briseidasara, RAILROAD BAGGAGE PORTER: 91039 [address], [address], [place] [address], Ph. Attender: Ely Mcmullen [facility] - [facility] 09/09/2019 12:00:00 AM EDT ATHE NA ([facility]) Ely Mcmullen, RAILROAD BAGGAGE PORTER: 99018 [address], [address], [place] [address], Ph. Attender: Ely Mcmullen [facility] - [facility] 09/09/2019 12:00:00 AM EDT ATHE NA ([facility]) Ely Mcmullen, RAILROAD BAGGAGE PORTER: 49447 [address], [place] [address], Ph. Attender: Ely Mcmullen [facility] - [facility] 09/09/2019 12:00:00 AM EDT ATHE NA ([facility]) Ely Mcmullen, RAILROAD BAGGAGE PORTER: 44980 [address], [place] [address], Ph. Attender: Ely Mcmullen [facility] - [facility] 09/09/2019 12:00:00 AM EDT ATHE NA ([facility]) Ely Mcmullen, RAILROAD BAGGAGE PORTER: 95290 [address], [place] [address], Ph. Attender: Ely Mcmullen [facility] - [facility] 09/09/2019 12:00:00 AM EDT ATHE NA ([facility]) Ely Mcmullen, RAILROAD BAGGAGE PORTER: 16341 [address], [place] [address], Ph. Attender: Ely Mcmullen [facility] - [facility] 09/09/2019 12:00:00 AM EDT ATHE NA ([facility]) Ely Mcmullen, RAILROAD BAGGAGE PORTER: 89566 [address], [place] [address], Ph. Attender: Ely Mcmullen [facility] - [facility] 09/09/2019 12:00:00 AM EDT ATHE NA ([facility]) Ely Mcmullen, RAILROAD BAGGAGE PORTER: 94685 [address], [address], [place] [address], Ph. Attender: Ely Mcmullen [facility] - [facility] 09/09/2019 12:00:00 AM EDT ATHE NA ([facility]) Ely Mcmullen, RAILROAD BAGGAGE PORTER: 93182 [address], [address], [place] [address], Ph. Attender: Ely Mcmullen [facility] - [facility] 09/09/2019 12:00:00 AM EDT ATHE NA ([facility]) Ely Mcmullen, RAILROAD BAGGAGE PORTER: 14836 [address], [place] [address], Ph. Attender: Ely Mcmullen [facility] - [facility] 09/09/2019 12:00:00 AM EDT ATHE NA ([facility]) Ely Mcmullen, RAILROAD BAGGAGE PORTER: 39193 [address], [address], [place] [address], Ph. Attender: Ely Mcmullen [facility] 09/09/2019 12:00:00 AM EDT ATHE NA ([facility]) Duy Valente MD: 37403 [address], [address], [place] [address], Ph. Attender: Duy Valente MD [place] - [facility] 09/01/2019 12:00:00 AM EDT POLO ([facility]) Duy Valente MD: 33128 [address], [address], [place] [address], Ph. Attender: Duy Valente MD [place] - [facility] 09/01/2019 12:00:00 AM EDT POLO ([facility]) Duy Valente MD: 74710 [address], [address], [place] [address], Ph. Attender: Duy MULTANI - [facility] 09/01/2019 12:00:00 AM EDT POLO ([facility]) Duy Valente MD: 43346 [address], [address], [place] [address], Ph. Attender: Duy MULTANI - [facility] 09/01/2019 12:00:00 AM EDT POLO ([facility]) Duy Valente MD: 26654 [address], [address], [place] [address], Ph. Attender: Duy MULTANI - [facility] 09/01/2019 12:00:00 AM EDT POLO ([facility]) Duy Valente MD: 63629 [address], [address], [place] [address], Ph. Attender: Duy MULTANI - [facility] 09/01/2019 12:00:00 AM EDT POLO ([facility]) Duy Valente MD: 15645 [address], [address], [place] [address], Ph. Attender: Duy MULTANI - [facility] 09/01/2019 12:00:00 AM EDT POLO ([facility]) Duy Valente MD: 35186 [address], [address], [place] [address], Ph. Attender: Duy MULTANI - [facility] 09/01/2019 12:00:00 AM EDT POLO ([facility]) Duy Valente MD: 40075 [address], [address], [place] [address], Ph. Attender: Duy MULTANI - [facility] 09/01/2019 12:00:00 AM EDT POLO ([facility]) Duy Valente MD: 90221 [address], [address], [place] [address], Ph. Attender: Duy MULTANI - [facility] 09/01/2019 12:00:00 AM EDT POLO ([facility]) Duy Valente MD: 05930 [address], [address], [place] [address], Ph. Attender: Duy MULTANI - [facility] 09/01/2019 12:00:00 AM EDT POLO ([facility]) Duy Valente MD: 61697 [address], [address], [place] [address], Ph. Attender: Duy MULTANI - [facility] 09/01/2019 12:00:00 AM EDT POLO ([facility]) Duy Valente MD: 61415 [address], [address], [place] [address], Ph. Attender: Duy MULTANI - [facility] 09/01/2019 12:00:00 AM EDT POLO ([facility]) Duy Valente MD: 69301 [address], [address], [place] [address], Ph. Attender: Duy MULTANI - [facility] 09/01/2019 12:00:00 AM EDT POLO ([facility]) Duy Valente MD: 70716 [address], [address], [place] [address], Ph. Attender: Duy MULTANI - [facility] 09/01/2019 12:00:00 AM EDT POLO ([facility]) Duy Valente MD: 59171 [address], [address], [place] [address], Ph. Attender: Duy MULTANI - [facility] 09/01/2019 12:00:00 AM EDT POLO ([facility]) Outpatient Attender: Mir Estrada MD Physical Therapy 08/31/2019 0 1:00:00 PM EDT MEDJOSHUA ([facility]) Duy Valente MD: 89528 [address], [address], [place] [address], Ph. [phone] Attender: Duy MULTANI - [facility] 08/29/2019 12:00:00 AM EDT POLO ([facility]) Duy Valente MD: 90995 [address], [address], [place] [address], Ph. [phone] Attender: Duy MULTANI - [facility] 08/29/2019 12:00:00 AM EDT POLO ([facility]) Duy Valente MD: 72743 [address], [address], [place] [address], Ph. [phone] Attender: Duy MULTANI - [facility] 08/29/2019 12:00:00 AM EDT POLO ([facility]) Duy Valente MD: 24424 [address], [address], [place] [address], Ph. [phone] Attender: Duy Valente MD [place] - [facility] 08/29/2019 12:00:00 AM EDT POLO ([facility]) Duy Valente MD: 81419 [address], [address], [place] [address], Ph. [phone] Attender: Duy Valente MD [place] - [facility] 08/29/2019 12:00:00 AM EDT POLO ([facility]) Duy Valente MD: 72940 [address], [address], [place] [address], Ph. [phone] Attender: Duy MULTANI - [facility] 08/29/2019 12:00:00 AM EDT POLO ([facility]) Duy Valente MD: 85485 [address], [address], [place] [address], Ph. [phone] Attender: Duy MULTANI - [facility] 08/29/2019 12:00:00 AM EDT POLO ([facility]) Duy Valente MD: [address], [address], [place] [address], Ph. [phone] Attender: Duy Valente MD [place] - [facility] 08/29/2019 12:00:00 AM EDT POLO ([facility]) Duy Valente MD: [address], [address], [place] [address], Ph. [phone] Attender: Duy Valente MD [place] - [facility] 08/29/2019 12:00:00 AM EDT POLO ([facility]) Duy Valente MD: [address], [address], [place] [address], Ph. [phone] Attender: Duy MULTANI - [facility] 08/29/2019 12:00:00 AM EDT POLO ([facility]) Duy Valente MD: [address], [address], [place] [address], Ph. [phone] Attender: Duy Valente MD [place] - [facility] 08/29/2019 12:00:00 AM EDT POLO ([facility]) Duy Valente MD: [address], [address], [place] [address], Ph. [phone] Attender: Duy Valente MD [place] - [facility] 08/29/2019 12:00:00 AM EDT POLO ([facility]) Duy Valente MD: [address], [address], [place] [address], Ph. [phone] Attender: Duy MULTANI - [facility] 08/29/2019 12:00:00 AM EDT POLO ([facility]) Duy Valente MD: [address], [address], [place] [address], Ph. [phone] Attender: Duy MULTANI - [facility] 08/29/2019 12:00:00 AM EDT POLO ([facility]) Duy Valente MD: [address], [address], [place] [address], Ph. [phone] Attender: Duy MULTANI - [facility] 08/29/2019 12:00:00 AM EDT POLO ([facility]) Duy Valente MD: [address], [address], [place] [address], Ph. [phone] Attender: Duy MULTANI - [facility] 08/29/2019 12:00:00 AM EDT POLO ([facility]) Duy Valente MD: [address], [place] [address], Ph. [phone] Attender: Duy Valente MD [place] - [facility] 08/29/2019 12:00:00 AM EDT POLO ([facility]) Ely Mcmullen, RAILRO[employer] BAGGAGE PORTER: [address], [place] [address], Ph. Attender: Ely Mcmullen [facility] - [facility] 08/16/2019 12:00:00 AM EDT ATHShy ERWIN ([facility]) Ely Mcmullen, RAILRO[employer] BAGGAGE PORTER: [address], [place] [address], Ph. Attender: Ely Mcmullen [facility] 08/16/2019 12:00:00 AM EDT ATHShy NA ([facility]) Ely Mcmullen, RAILRO[employer] BAGGAGE PORTER: [address], [place] [address], Ph. Attender: Ely Mcmullen [facility] 08/16/2019 12:00:00 AM EDT ATHE NA ([facility]) Ely Mcmullen, RAILRO[employer] BAGGAGE PORTER: [address], [place] [address], Ph. Attender: Ely Mcmullen [facility] 08/16/2019 12:00:00 AM EDT ATHE NA ([facility]) Ely Mcmullen, RAILRO[employer] BAGGAGE PORTER: [address], [place] [address], Ph. Attender: Ely Mcmullen [facility] 08/16/2019 12:00:00 AM EDT ATHE NA ([facility]) Ely Mcmullen, RAILRO[employer] BAGGAGE PORTER: [address], [place] [address], Ph. Attender: Ely Mcmullen [facility] - [facility] 08/16/2019 12:00:00 AM EDT ATHE NA ([facility]) Ely Mcmullen, RAILRO[employer] BAGGAGE PORTER: [address], [address], [place] [address], Ph. Attender: Ely Mcmullen [facility] - [facility] 08/16/2019 12:00:00 AM EDT ATHE NA ([facility]) Ely Mcmullen, RAILRO[employer] BAGGAGE PORTER: [address], [place] [address], Ph. Attender: Ely Mcmullen [facility] - [facility] 08/16/2019 12:00:00 AM EDT ATHE NA ([facility]) Ely Mcmullen, RAILRO[employer] BAGGAGE PORTER: [address], [place] [address], Ph. Attender: Ely Mcmullen [facility] - [facility] 08/16/2019 12:00:00 AM EDT ATHE NA ([facility]) Ely Mcmullen, RAILRO[employer] BAGGAGE PORTER: [address], [place] [address], Ph. Attender: Ely Mcmullen [facility] - [facility] 08/16/2019 12:00:00 AM EDT ATHE NA ([facility]) Ely Mcmullen, RAILRO[employer] BAGGAGE PORTER: [address], [place] [address], Ph. Attender: Ely Mcmullen [facility] - [facility] 08/16/2019 12:00:00 AM EDT ATHE NA ([facility]) Ely Mcmullen, RAILROAD BAGGAGE PORTER: [address], [place] [address], Ph. Attender: Ely Mcmullen [facility] - [facility] 08/16/2019 12:00:00 AM EDT ATHE NA ([facility]) Ely Mcmullen, RAILRO[employer] BAGGAGE PORTER: [address], [place] [address], Ph. Attender: Ely Mcmullen [facility] - [facility] 08/16/2019 12:00:00 AM EDT ATHE NA ([facility]) Ely Mcmullen, RAILRO[employer] BAGGAGE PORTER: [address], [place] [address], Ph. Attender: Ely Mcmullen [facility] - [facility] 08/16/2019 12:00:00 AM EDT ATHE NA ([facility]) Ely Mcmullen, RAILRO[employer] BAGGAGE PORTER: [address], [place] [address], Ph. Attender: Ely Mcmullen [facility] - [facility] 08/16/2019 12:00:00 AM EDT ATHE NA ([facility]) Ely Mcmullen, RAILRO[employer] BAGGAGE PORTER: [address], [place] [address], Ph. Attender: Ely Mcmullen [facility] - [facility] 08/16/2019 12:00:00 AM EDT ATHE NA ([facility]) Ely Mcmullen, RAILRO[employer] BAGGAGE PORTER: [address], [address], [place] [address], Ph. Attender: Ely Mcmullen [facility] - [facility] 08/16/2019 12:00:00 AM EDT ATHE NA ([facility]) Ely Mcmullen, RAILRO[employer] BAGGAGE PORTER: [address], [address], [place] [address], Ph. Attender: Ely Mcmullen [facility] - [facility] 08/16/2019 12:00:00 AM EDT ATHE NA ([facility]) Ely Mcmullen, RAILRO[employer] BAGGAGE PORTER: [address], [place] [address], Ph. Attender: Ely Mcmullen [facility] - [facility] 07/15/2019 12:00:00 AM EDT ATHE NA ([facility]) Ely Mcmullen, RAILRO[employer] BAGGAGE PORTER: [address], [address], [place] [address], Ph. Attender: Ely Mcmullen [facility] - [facility] 07/15/2019 12:00:00 AM EDT ATHE NA ([facility]) Ely Mcmullen, RAILRO[employer] BAGGAGE PORTER: [address]98 [address], [address], [place] [address], Ph. Attender: Ely Mcmullen [facility] - [facility] 07/15/2019 12:00:00 AM EDT ATHE NA ([facility]) Ely Mcmullen, RAILRO[employer] BAGGAGE PORTER: [address], [address], [place] [address], Ph. Attender: Ely Jeanekoffisara [facility] - [facility] 07/15/2019 12:00:00 AM EDT ATHE NA ([facility]) Ely Mcmullen, RAILRO[employer] BAGGAGE PORTER: [address], [place] [address], Ph. Attender: Ely Mcmullen [facility] - [facility] 07/15/2019 12:00:00 AM EDT ATHE NA ([facility]) Ely Mcmullen, RAILRO[employer] BAGGAGE PORTER: [address], [address], [place] [address], Ph. Attender: Ely Mcmullen [facility] - [facility] 07/15/2019 12:00:00 AM EDT ATHE NA ([facility]) Ely Mcmullen, RAILRO[employer] BAGGAGE PORTER: [address], [place] [address], Ph. Attender: Ely Mcmullen [facility] - [facility] 07/15/2019 12:00:00 AM EDT ATHE NA ([facility]) Ely Mcmullen, RAILRO[employer] BAGGAGE PORTER: [address], [address], [place] [address], Ph. Attender: Ely Mcmullen [facility] 07/15/2019 12:00:00 AM EDT ATHE NA ([facility]) Ely Mcmullen, RAILRO[employer] BAGGAGE PORTER: [address], [address], [place] [address], Ph. Attender: Ely Mcmullen [facility] - [facility] 07/15/2019 12:00:00 AM EDT ATHE NA ([facility]) Ely Mcmullen, RAILRO[employer] BAGGAGE PORTER: [address], [address], [place] [address], Ph. Attender: Ely Mcmullen [facility] - [facility] 07/15/2019 12:00:00 AM EDT ATHE NA ([facility]) Ely Mcmullen, RAILROAD BAGGAGE PORTER: [address], [place] [address], Ph. Attender: Ely Mcmullen [facility] - [facility] 07/15/2019 12:00:00 AM EDT ATHE NA ([facility]) Ely Mcmullen, RAILRO[employer] BAGGAGE PORTER: [address], [place] [address], Ph. Attender: Ely Mcmullen [facility] - [facility] 07/15/2019 12:00:00 AM EDT ATHE NA ([facility]) Ely Mcmullen, RAILRO[employer] BAGGAGE PORTER: [address], [place] [address], Ph. Attender: Ely Mcmullen [facility] - [facility] 07/15/2019 12:00:00 AM EDT ATHE NA ([facility]) Ely Jones Jeanestef, [employer]RO[employer] BAGGAGE PORTER: [address], [place] [address], Ph. Attender: Ely Mcmullen [facility] - [facility] 07/15/2019 12:00:00 AM EDT ATHE NA ([facility]) Ely Mcmullen, RAILROAD BAGGAGE PORTER: [address], [place] [address], Ph. Attender: Ely Mcmullen [facility] - [facility] 07/15/2019 12:00:00 AM EDT ATHE NA ([facility]) Ely Mcmullen, RAILROAD BAGGAGE PORTER: [address], [place] [address], Ph. Attender: Ely Mcmullen [facility] 07/15/2019 12:00:00 AM EDT ATHShy ERWIN ([facility]) Ely Mcmullen, RAILRO[employer] BAGGAGE PORTER: [address], [place] [address], Ph. Attender: Ely Mcmullen [facility] 07/15/2019 12:00:00 AM EDT ROBERT ERWIN ([facility]) Ely Mcmullen, [employer]ILRO[employer] BAGGAGE PORTER: [address]65 [address], [place] [address], Ph. Attender: Ely Mcmullen [facility] 07/15/2019 12:00:00 AM EDT ATHShy ERWIN ([facility]) Ely Mcmullen, RAILRO[employer] BAGGAGE PORTER: [address], [place] [address], Ph. Attender: Ely Mcmullen [facility] 07/15/2019 12:00:00 AM EDT ATHShy ERWIN ([facility]) Outpatient [address] [facility] [address] 07/14/2019 12:00:00 AM EDT eCW1 ([facility]) Outpatient Attender: BRANDT COLLIER [employer] P[employer]TER Physical Therapy 07/13/2019 0 9:15:00 AM EDT MEDENT ([facility] ) [facility] [address] [facility] [address] 07/12/2019 12:00:00 AM EDT eCW1 ([facility]) Ely Mcmullen, RAILROAD BAGGAGE PORTER: [address], [address], [place] [address], Ph. Attender: Ely Mcmullen [facility] - [facility] 07/08/2019 12:00:00 AM EDT ATHE NA ([facility]) Ely Mcmullen, RAILROAD BAGGAGE PORTER: [address], [address], [place] [address], Ph. Attender: Ely Mcmullen [facility] - [facility] 07/08/2019 12:00:00 AM EDT ATHE NA ([facility]) Ely Mcmullen, RAILRO[employer] BAGGAGE PORTER: [address], [place] [address], Ph. Attender: Ely Mcmullen [facility] 07/08/2019 12:00:00 AM EDT ATHE NA ([facility]) Ely Mcmullen, RAILRO[employer] BAGGAGE PORTER: [address]81 [address], [address], [place] [address], Ph. Attender: Ely Mcmullen [facility] 07/08/2019 12:00:00 AM EDT ATHE NA ([facility]) Ely Mcmullen, [employer]ILRO[employer] BAGGAGE PORTER: [address]45 [address], [address], [place] [address], Ph. Attender: Ely Mcmullen [facility] - [facility] 07/08/2019 12:00:00 AM EDT ATHE NA ([facility]) Ely Mcmullen, [employer]ILRO[employer] BAGGAGE PORTER: [address]139 [address], [place] [address], Ph. Attender: Ely Mcmullen [facility] 07/08/2019 12:00:00 AM EDT ATHE NA ([facility]) Ely Mcmullen, RAILROAD BAGGAGE PORTER: [address], [place] [address], Ph. Attender: Ely Mcmullen [facility] 07/08/2019 12:00:00 AM EDT ATHE NA ([facility]) Ely Mcmullen, RAILROAD BAGGAGE PORTER: [address]95 [address], [place] [address], Ph. Attender: Ely Mcmullen [facility] - [facility] 07/08/2019 12:00:00 AM EDT ATHE NA ([facility]) Ely Mcmullen, RAILROAD BAGGAGE PORTER: [address]70 [address], [place] [address], Ph. Attender: Ely Mcmullen [facility] - [facility] 07/08/2019 12:00:00 AM EDT ATHE NA ([facility]) Ely Mcmullen, RAILROAD BAGGAGE PORTER: [address]15 [address], [place] [address], Ph. Attender: Ely Mcmullen [facility] - [facility] 07/08/2019 12:00:00 AM EDT ATHE NA ([facility]) Ely Mcmullen, RAILROAD BAGGAGE PORTER: [address]79 [address], [place] [address], Ph. Attender: Ely Mcmullen [facility] - [facility] 07/08/2019 12:00:00 AM EDT ATHE NA ([facility]) Ely Mcmullen, RAILROAD BAGGAGE PORTER: [address]97 [address], [place] [address], Ph. Attender: Ely Mcmullen [facility] - [facility] 07/08/2019 12:00:00 AM EDT ATHE NA ([facility]) Ely Mcmullen, RAILROAD BAGGAGE PORTER: [address]13 [address], [place] [address], Ph. Attender: Ely Mcmullen [facility] - [facility] 07/08/2019 12:00:00 AM EDT ATHE NA ([facility]) Ely Mcmullen, RAILROAD BAGGAGE PORTER: [address], [address], [place] [address], Ph. Attender: Ely Mcmullen [facility] - [facility] 07/08/2019 12:00:00 AM EDT ATHE NA ([facility]) Ely Mcmullen, RAILROAD BAGGAGE PORTER: 87395 [address], [address], [place] [address], Ph. Attender: Ely Mcmullen [facility] - [facility] 07/08/2019 12:00:00 AM EDT ATHE NA ([facility]) Ely Mcmullen, RAILROAD BAGGAGE PORTER: [address]27 [address], [address], [place] [address], Ph. Attender: Ely Mcmullen [facility] - [facility] 07/08/2019 12:00:00 AM EDT ATHE NA ([facility]) Ely Mcmullen, RAILROAD BAGGAGE PORTER: 77286 [address], [place] [address], Ph. Attender: Ely Mcmullen [facility] - [facility] 07/08/2019 12:00:00 AM EDT ATHE NA ([facility]) Ely Mcmullen, RAILROAD BAGGAGE PORTER: [address]34 [address], [address], [place] [address], Ph. Attender: Ely Mcmullen [facility] - [facility] 07/08/2019 12:00:00 AM EDT ATHShy NA ([facility]) Ely Mcmullen, RAILROAD BAGGAGE PORTER: [address]674 [address], [address], [place] [address], Ph. Attender: Ely Mcmullen [facility] - [facility] 07/08/2019 12:00:00 AM EDT ATHShy NA ([facility]) Ely Mcmullen, RAILROAD BAGGAGE PORTER: [address]261 [address], [place] [address], Ph. Attender: Ely Mcmullen [facility] 07/08/2019 12:00:00 AM EDT ATHE NA ([facility]) [address] [address] 07/05/2019 12:00:00 AM EDT eCW1 ([facility]) Outpatient Attender: CHASIDY Johnston/Estiven/Amandeep/Luan proctor 06/28/2019 01:00:00 PM EDT MEDENT ([facility] [address] [place] [address] [place] [address] 06/13/2019 12:00:00 AM EDT eCW1 ([facility]) [address] [place] [address] 06/13/2019 12:00:00 AM EDT eCW1 ([facility]) [facility] [address] [place] [address] 06/02/2019 12:00:00 AM EDT eCW1 ([facility]) [address] [place] [address] 05/19/2019 12:00:00 AM EDT eCW1 ([facility]) Outpatient Attender: CHASDIY Johnston/Estiven/Amandeep/Luan proctor 05/17/2019 09:00:00 AM EDT MEDENT ([facility]) [facility] [address] [place] [address] 05/06/2019 12:00:00 AM EDT eCW1 [facility]) Outpatient Attender: BRANDT COLLIER NP Physical Therapy 04/22/2019 1 0:15:00 AM EST MEDENT ([facility]) [facility] [address] [facility] [place] [address] 04/19/2019 12:00:00 AM EST eCW1 ([facility]) [facility] [address] [facility] [place] [address] 04/19/2019 12:00:00 AM EST eCW1 ([facility]) [facility] [address] [facility] [place] [address] 04/18/2019 12:00:00 AM EST eCW1 ([facility]) Outpatient Referrer: Ely Mcmullen GLOBAL MANAGER 04/11/2019 03:24:0 0 PM EST [facility] [address] [facility] [place] [address] 04/11/2019 12:00:00 AM EST eCW1 ([facility]) [facility] [address] [facility] [place] [address] 04/05/2019 12:00:00 AM EST eCW1 ([facility]) [facility] [address] [facility] [place] [address] 03/31/2019 12:00:00 AM EST eCW1 ([facility]) [facility] [address] [facility] [place] [address] 03/31/2019 12:00:00 AM EST eCW1 ([facility]) [facility] [address] [facility] [address] 03/30/2019 12:00:00 AM EST eCW1 ([facility]) Duy Valente MD: [address], [place] [address], Ph. Attender: Duy Valente MD [place] - [facility] 03/29/2019 12:00:00 AM EST POLO ([facility]) Duy Valente MD: [address]872 [address], [address], [place] [address], Ph. Attender: Duy Valente MD [place] - [facility] 03/29/2019 12:00:00 AM EST POLO ([facility]) Duy Valente MD: 10438 [address], [place] [address], Ph. Attender: Duy MULTANI - [facility] 03/29/2019 12:00:00 AM EST POLO ([facility]) Duy Valente MD: 02802 [address], [place] [address], Ph. Attender: Duy Valente MD [place] - [facility] 03/29/2019 12:00:00 AM EST POLO ([facility]) Duy Valente MD: 43459 [address], [address], [place] [address], Ph. Attender: Duy Valente MD [place] - [facility] 03/29/2019 12:00:00 AM EST POLO ([facility]) Duy Valente MD: [address], [address], [place] [address], Ph. Attender: Duy Valente MD [place] - [facility] 03/29/2019 12:00:00 AM EST POLO ([facility]) Duy Valente MD: [address], [address], [place] [address], Ph. Attender: Duy Valente MD [place] - [facility] 03/29/2019 12:00:00 AM EST POLO ([facility]) Duy Valente MD: [address], [address], [place] [address], Ph. Attender: Duy MULTANI - [facility] 03/29/2019 12:00:00 AM EST POLO ([facility]) Duy Valente MD: [address], [place] [address], Ph. Attender: Duy MULTANI - [facility] 03/29/2019 12:00:00 AM EST POLO ([facility]) Duy Valente MD: [address], [address], [place] [address], Ph. Attender: Duy MULTANI - [facility] 03/29/2019 12:00:00 AM EST POLO ([facility]) Duy Valente MD: [address], [address], [place] [address], Ph. Attender: Duy Valente MD [place] - [facility] 03/29/2019 12:00:00 AM EST POLO ([facility]) Duy Valente MD: [address], [address], [place] [address], Ph. Attender: Duy Valente MD [place] - [facility] 03/29/2019 12:00:00 AM EST POLO ([facility]) Duy Valente MD: [address], [address], [place] [address], Ph. Attender: Duy Valente MD [place] - [facility] 03/29/2019 12:00:00 AM EST POLO ([facility]) Duy Valente MD: [address]98 [address], [address], [place] [address], Ph. Attender: Duy MULTANI - [facility] 03/29/2019 12:00:00 AM EST POLO ([facility]) Duy Valente MD: [address], [address], [place] [address], Ph. Attender: Duy MULTANI - [facility] 03/29/2019 12:00:00 AM EST POLO ([facility]) Duy Valente MD: [address]175 [address], [address], [place] [address], Ph. Attender: Duy MULTANI - [facility] 03/29/2019 12:00:00 AM EST POLO ([facility]) Duy Valente MD: [address]87 [address], [address], [place] [address], Ph. Attender: Duy MULTANI - [facility] 03/29/2019 12:00:00 AM EST POLO ([facility]) Duy Valente MD: [address], [address], [place] [address], Ph. Attender: Duy MULTANI - [facility] 03/29/2019 12:00:00 AM EST POLO ([facility]) Duy Valente MD: [address], [place] [address], Ph. Attender: Duy Valente MD [place] - [facility] 03/29/2019 12:00:00 AM EST POLO ([facility]) Duy Valente MD: [address], [address], [place] [address], Ph. Attender: Duy Valente MD [place] - [facility] 03/29/2019 12:00:00 AM EST POLO ([facility]) Duy Valente MD: [address]75 [address], [facility] [place] [address], Ph. Attender: Duy Valente MD [place] - [facility] 03/29/2019 12:00:00 AM EST POLO ([facility]) Ely Mcmullen, [employer]: [address], [place] [address], Ph. Attender: Ely Mcmullen [facility] 03/17/2019 12:00:00 AM EST ATHE NA ([facility]) Ely Mcmullen, [employer]: [address], [place] [address], Ph. Attender: Ely Mcmullen [facility] 03/17/2019 12:00:00 AM EST ATHE NA ([facility]) Ely Mcmullen, [employer]: [address], [place] [address], Ph. Attender: Ely Mcmullen [facility] 03/17/2019 12:00:00 AM EST ATHE NA ([facility]) Ely Mcmullen, [employer]: [address], [place] [address], Ph. Attender: Ely Mcmullen [facility] - [facility] 03/17/2019 12:00:00 AM EST ATHE NA ([facility]) Ely Mcmullen, [employer]: [address], [address], [place] [address], Ph. Attender: Ely Mcmullen [facility] - [facility] 03/17/2019 12:00:00 AM EST ATHE NA ([facility]) Ely Mcmullen, [employer]: [address], [place] [address], Ph. Attender: Ely Mcmullen [facility] 03/17/2019 12:00:00 AM EST ATHE NA ([facility]) Ely Mcmullen, [employer]: [address], [address], [place] [address], Ph. Attender: Ely Mcmullen [facility] 03/17/2019 12:00:00 AM EST ATHE NA ([facility]) Ely Mcmullen, [employer]: [address], [address], [place] [address], Ph. Attender: Ely Mcmullen [facility] - [facility] 03/17/2019 12:00:00 AM EST ATHE NA ([facility]) Ely Mcmullen, [employer]: [address], [address], [place] [address], Ph. Attender: Ely Mcmullen [facility] - [facility] 03/17/2019 12:00:00 AM EST ATHE NA ([facility]) Ely Mcmullen, [employer]: [address], [facility] [place] [address], Ph. Attender: Ely Mcmullen [facility] - [facility] 03/17/2019 12:00:00 AM EST ATHE NA ([facility]) Ely Mcmullen, [employer]: [address], [facility] [place] [address], Ph. Attender: Ely Mcmullen [facility] - [facility] 03/17/2019 12:00:00 AM EST ATHE NA ([facility]) Ely Mcmullen, [employer]: [address], [place] [address], Ph. Attender: Ely Mcmullen [facility] - [facility] 03/17/2019 12:00:00 AM EST ATHE NA ([facility]) Ely Mcmullen, [employer]: [address], [facility] [place] [address], Ph. Attender: Ely Mcmullen [facility] - [facility] 03/17/2019 12:00:00 AM EST ATHE NA ([facility]) Ely Mcmullen, [employer]: [address], [facility] [place] [address], Ph. Attender: Ely Mcmullen [facility] - [facility] 03/17/2019 12:00:00 AM EST ATHE NA ([facility]) Ely Mcmullen, [employer]: [address], [address], [place] [address], Ph. Attender: Ely Mcmullen [facility] - [facility] 03/17/2019 12:00:00 AM EST ATHE NA ([facility]) Ely Mcmullen, [employer]: [address], [address], [place] [address], Ph. Attender: Ely Mcmullen [facility] - [facility] 03/17/2019 12:00:00 AM EST ATHE NA ([facility]) Ely Mcmullen, [employer]TER: [address], [place] [address], Ph. Attender: Ely Mcmullen [facility] - [facility] 03/17/2019 12:00:00 AM EST ATHE NA ([facility]) Ely Mcmullen, [employer]TER: [address], [place] [address], Ph. Attender: Ely Mcmullen [facility] - [facility] 03/17/2019 12:00:00 AM EST ATHE NA ([facility]) Ely Mcmullen, [employer]: [address], [place] [address], Ph. Attender: Ely Mcmullen [facility] - [facility] 03/17/2019 12:00:00 AM EST ATHE NA ([facility]) Ely Mcmullen, [employer]: [address], [place] [address], Ph. [facility]: [facility] 03/17/2019 12:00:00 AM EST ATHE NA ([facility]) Ely Mcmullen, [employer]TER: [address], [place] [address], Ph. Attender: Ely Mcmullen [facility] - [facility] 03/17/2019 12:00:00 AM EST ATHE NA ([facility]) Ely Mcmullen, [employer]TER: [address], [place] [address], Ph. Attender: Ely Mcmullen [facility] 03/17/2019 12:00:00 AM EST ATHE NA ([facility]) [address] [place] [address] 02/28/2019 12:00:00 AM EST eCW1 ([facility]) Outpatient Attender: CHASIDY Johnston/Estiven/Amandeep/Rein dl 02/22/2019 08:30:00 AM EST MEDENT ([facility] [address] [address] 02/21/2019 12:00:00 AM EST eCW1 ([facility]) [address] [place] [address] 02/08/2019 12:00:00 AM EST eCW1 ([facility]) Duy Valente MD: [address], [place] [address], Ph. Attender: Duy Valente MD [facility] 01/31/2019 12:00:00 AM EST POLO ([facility]) Duy Valente MD: [address]61 [address], [place] [address], Ph. Attender: Duy Valente MD [place] - [facility] 01/31/2019 12:00:00 AM EST POLO ([facility]) Duy Valente MD: [address]41 [address], [address], [place] [address], Ph. Attender: Duy MULTANI - [facility] 01/31/2019 12:00:00 AM EST POLO ([facility]) Duy Valente MD: [address], [address], [place] [address], Ph. Attender: Duy Valente MD [place] - [facility] 01/31/2019 12:00:00 AM EST POLO ([facility]) Duy Valente MD: [address]23 [address], [place] [address], Ph. Attender: Duy MULTANI - [facility] 01/31/2019 12:00:00 AM EST POLO ([facility]) Duy Valente MD: [address]208 [address], [place] [address], Ph. Attender: Duy MULTANI - [facility] 01/31/2019 12:00:00 AM EST POLO ([facility]) Duy Valente MD: [address]89 [address], [address], [place] [address], Ph. Attender: Duy MULTANI - [facility] 01/31/2019 12:00:00 AM EST POLO ([facility]) Duy Valente MD: [address]369 [address], [address], [place] [address], Ph. Attender: Duy Valente MD [place] - [facility] 01/31/2019 12:00:00 AM EST POLO ([facility]) Duy Valente MD: [address]69 [address], [address], [place] [address], Ph. Attender: Duy MULTANI - [facility] 01/31/2019 12:00:00 AM EST POLO ([facility]) Duy Valente MD: 84806 [address], [address], [place] [address], Ph. Attender: Duy MULTANI - [facility] 01/31/2019 12:00:00 AM EST POLO ([facility]) Duy Valente MD: [address]659 [address], [place] [address], Ph. Attender: Duy MULTANI - [facility] 01/31/2019 12:00:00 AM EST POLO ([facility]) Duy Valente MD: [address]49 [address], [address], [place] [address], Ph. Attender: Duy MULTANI - [facility] 01/31/2019 12:00:00 AM EST POLO ([facility]) Duy Valente MD: 49160 [address], [address], [place] [address], Ph. Attender: Duy MULTANI - [facility] 01/31/2019 12:00:00 AM EST POLO ([facility]) Duy Valente MD: 94697 [address], [address], [place] [address], Ph. Attender: Duy MULTANI - [facility] 01/31/2019 12:00:00 AM EST POLO ([facility]) Duy Valente MD: [address]199 [address], [address], [place] [address], Ph. Attender: Duy MULTANI - [facility] 01/31/2019 12:00:00 AM EST POLO ([facility]) Duy Valente MD: [address]885 [address], [address], [place] [address], Ph. Attender: Duy MULTANI - [facility] 01/31/2019 12:00:00 AM EST POLO ([facility]) Duy Valente MD: [address]160 [address], [place] [address], Ph. Attender: Duy MULTANI - [facility] 01/31/2019 12:00:00 AM EST POLO ([facility]) Duy Valente MD: [address]48 [address], [address], [place] [address], Ph. Attender: Duy MULTANI - [facility] 01/31/2019 12:00:00 AM EST POLO ([facility]) Duy Valente MD: [address], [address], [place] [address], Ph. Attender: Duy MULTANI - [facility] 01/31/2019 12:00:00 AM EST POLO ([facility]) Duy Valente MD: [address]48 [address], [address], [place] [address], Ph. Attender: Duy MULTANI - [facility] 01/31/2019 12:00:00 AM EST POLO ([facility]) Duy Valente MD: 66215 [facility] [address], [place] [address], Ph. Attender: Duy Valente MD [place] - [facility] 01/31/2019 12:00:00 AM EST POLO ([facility]) Duy Valente MD: [address]79 [address], [place] [address], Ph. Attender: Duy Valente MD [place] - [facility] 01/31/2019 12:00:00 AM EST POLO ([facility]) Duy Valente MD: 10857 [facility] [address], [facility] [place] [address], Ph. Attender: Duy Valente MD [facility] 01/31/2019 12:00:00 AM EST POLO ([facility]) [facility] [address] [address] [facility] [place] [address] 01/27/2019 12:00:00 AM EST eCW1 ([facility]) [facility] [address] [facility] [place] [address] 01/21/2019 12:00:00 AM EST eCW1 ([facility]) Immunizations Vaccine Date Status Description Data Source(s) INFLUENZA VIRUS VACCINE QUADRIVAL 7362-1258(6 MOS AND UP)/PF 12/06/2019 12:00:00 AM EDT completed [facility] PNEUMOCOCCAL 23-VALENT POLYSACCHARIDE VACCINE 12/06/2019 12: 00:00 AM EDT completed [facility] pneumococcal polysaccharide PPV23 12/05/2019 07:24:00 AM EDT comple alyssa eCW1 ([facility]) pneumococcal polysaccharide PPV23 12/05/2019 07:24:00 AM EDT comple alyssa eCW1 ([facility]) pneumococcal polysaccharide PPV23 12/05/2019 07:24:00 AM EDT comple alyssa eCW1 ([facility]) pneumococcal polysaccharide PPV23 12/05/2019 07:24:00 AM EDT comple alyssa eCW1 ([facility]) pneumococcal polysaccharide PPV23 12/05/2019 07:24:00 AM EDT comple alyssa eCW1 ([facility]) pneumococcal polysaccharide PPV23 12/05/2019 07:24:00 AM EDT comple alyssa eCW1 ([facility]) pneumococcal polysaccharide PPV23 12/05/2019 07:24:00 AM EDT comple alyssa eCW1 ([facility]) IIV3. This is one of two codes replacing CVX 15, which is being retired. 12/05/2019 07:23:00 AM EDT completed eCW1 ([facility]) IIV3. This is one of two codes replacing CVX 15, which is being retired. 12/05/2019 07:23:00 AM EDT completed eCW1 ([facility]) IIV3. This is one of two codes replacing CVX 15, which is being retired. 12/05/2019 07:23:00 AM EDT completed eCW1 ([facility]) IIV3. This is one of two codes replacing CVX 15, which is being retired. 12/05/2019 07:23:00 AM EDT completed eCW1 ([facility]) IIV3. This is one of two codes replacing CVX 15, which is being retired. 12/05/2019 07:23:00 AM EDT completed eCW1 ([facility]) IIV3. This is one of two codes replacing CVX 15, which is being retired. 12/05/2019 07:23:00 AM EDT completed eCW1 ([facility]) IIV3. This is one of two codes replacing CVX 15, which is being retired. 12/05/2019 07:23:00 AM EDT completed eCW1 ([facility]) Medications Medication Brand Name Start Date Product [...] activ e Ciprofloxacin HCl 500 MG eCW1 ([facility]) Ciprofloxacin 500 MG Oral Tablet Ciprofloxacin HCl 500 MG Ciprofloxacin HCl 500 MG 12/29/2019 12:00:00 AM EST 1.0 {tablet} activ e Ciprofloxacin HCl 500 MG eCW1 ([facility]) Ciprofloxacin 500 MG Oral Tablet Ciprofloxacin HCl 500 MG Ciprofloxacin HCl 500 MG 12/29/2019 12:00:00 AM EST 1.0 {tablet} activ e Ciprofloxacin HCl 500 MG eCW1 ([facility]) 500 mg 12/29/2019 12:00:00 AM EST tablet 10 TAKE ONE TABLET BY MOUTH EVERY 12 HOURS FOR 5 DAYS TAKE ONE TABLET BY MOUTH EVERY 12 HOURS FOR 5 DAYS TIFF [facility] Ciprofloxacin 500 MG Oral Tablet Ciprofloxacin HCl 500 MG Ciprofloxacin HCl 500 MG 12/29/2019 12:00:00 AM EST 1.0 {tablet} activ e Ciprofloxacin HCl 500 MG eCW1 ([facility]) Ciprofloxacin 500 MG Oral Tablet Ciprofloxacin HCl 500 MG Ciprofloxacin HCl 500 MG 12/29/2019 12:00:00 AM EST 1.0 {tablet} activ e Ciprofloxacin HCl 500 MG eCW1 ([facility]) tizanidine 4 MG Oral Tablet TIZANIDINE HCL [...] active Bactrim DS 800-160 MG eCW1 ( [facility]) Sulfamethoxazole 800 MG / Trimethoprim 1 60 MG Oral Tablet [Bactrim] Bactrim DS 800-160 MG Bactrim DS 800-160 MG 12/13/2019 12:00:00 AM EDT 1.0 {table t} active Bactrim DS 800-160 MG eCW1 ( [facility]) Sulfamethoxazole 800 MG / Trimethoprim 1 60 MG Oral Tablet [Bactrim] Bactrim DS 800-160 MG Bactrim DS 800-160 MG 12/13/2019 12:00:00 AM EDT 1.0 {table t} active Bactrim DS 800-160 MG eCW1 ( [facility]) Sulfamethoxazole 800 MG / Trimethoprim 1 60 MG Oral Tablet [Bactrim] Bactrim DS 800-160 MG Bactrim DS 800-160 MG 12/13/2019 12:00:00 AM EDT 1.0 {table t} active Bactrim DS 800-160 MG eCW1 ( [facility]) tizanidine 4 MG Oral Tablet Tizanidine HCl 4 MG Tizanidine H Cl 4 MG 12/13/2019 12:00:00 AM EDT 2.0 {tablets} active T izanidine HCl 4 MG eCW1 ([facility]) tizanidine 4 MG Oral Tablet Tizanidine HCl 4 MG Tizanidine H Cl 4 MG 12/13/2019 12:00:00 AM EDT 2.0 {tablets} active T izanidine HCl 4 MG eCW1 ([facility]) tizanidine 4 MG Oral Tablet TIZANIDINE HCL [...] active T izanidine HCl 4 MG eCW1 ([facility]) tizanidine 4 MG Oral Tablet Tizanidine HCl 4 MG Tizanidine H Cl 4 MG 12/13/2019 12:00:00 AM EDT 2.0 {tablets} active T izanidine HCl 4 MG eCW1 ([facility]) atorvastatin 80 MG Oral Tablet ATORVASTATIN CALCIUM 12/13/2019 1 2:00:00 AM EDT tablet 90 TAKE ONE TABLET BY MOUTH EVERY D AY TAKE ONE TABLET BY MOUTH EVERY DAY SOLD: 12/13/2019 Dwayne Serna s tizanidine 4 MG Oral Tablet Tizanidine HCl 4 MG Tizanidine H Cl 4 MG 12/13/2019 12:00:00 AM EDT 2.0 {tablets} active T izanidine HCl 4 MG eCW1 ([facility]) Sulfamethoxazole 800 MG / Trimethoprim 1 60 MG Oral Tablet [Bactrim] Bactrim DS 800-160 MG Bactrim DS 800-160 MG 12/13/2019 12:00:00 AM EDT 1.0 {table t} active Bactrim DS 800-160 MG eCW1 ( [facility]) Sulfamethoxazole 800 MG / Trimethoprim 1 60 MG Oral Tablet [Bactrim] Bactrim DS 800-160 MG Bactrim DS 800-160 MG 12/13/2019 12:00:00 AM EDT 1.0 {table t} active Bactrim DS 800-160 MG eCW1 ( [facility]) tizanidine 4 MG Oral Tablet Tizanidine HCl 4 MG Tizanidine H Cl 4 MG 12/13/2019 12:00:00 AM EDT 2.0 {tablets} active T izanidine HCl 4 MG eCW1 ([facility]) tizanidine 4 MG Oral Tablet Tizanidine HCl 4 MG Tizanidine H Cl 4 MG 12/13/2019 12:00:00 AM EDT 2.0 {tablets} active T izanidine HCl 4 MG eCW1 ([facility]) Sulfamethoxazole 800 MG / Trimethoprim 160 MG [...] active Bactrim DS 800-160 MG eCW1 ( [facility]) Paroxetine Hydrochloride 30 MG Oral Tablet PAROXETINE HCL 11/22/2019 12:00:00 AM EDT tablet 90 TAKE ONE TABLET BY MOUTH EDUIN RY MORNING TAKE ONE TABLET BY MOUTH EVERY MORNING SOLD: 11/26/2019 Dwayne morlaes Paroxetine Hydrochloride 30 MG Oral Tablet PAROXETINE [...] BY MOUTH EVERY DAY SOLD: 11/26/2019 Dwayne Mariano Cyclobenzaprine hydrochloride 10 MG Oral Tablet CYCLOBENZAPR [...] TIMES A DAY NEEDED SOLD: 10/08/2019 Dwayne blackmans 62.5-25 mcg/actuation 09/29/2019 12:00:00 AM EDT blister wit h device 60 INHALE ONE PUFF BY MOUTH EVERY DAY INHALE ONE PUFF BY MOUTH EVERY DAY SOLD: 10/08/2019 [facility] Cyclobenzaprine hydrochloride 10 MG Oral Tablet CYCLOBENZAPR INE HCL 09/09/2019 12:00:00 AM EDT tablet 30 TAKE ONE TABLET BY MOUTH AT BEDTIME MAXIMUM DAILY DOSE = ONE TABLET TAKE ONE TABLET BY MOUTH AT BEDTIME MAXI MUM DAILY DOSE = ONE TABLET SOLD: 09/15/2019 [facility] 5 % 08/16/2019 12:00:00 AM EDT adhesive patch,medicate d 30 APPLY ONE PATCH TOPICALLY EVERY DAY, MAY WEAR UP TO 12 HOURS APPLY ONE PATCH TOPICALLY EVERY DAY, MAY WEAR UP TO 12 HOURS SOLD: 08/19/2019 [facility] Alprazolam 0.5 MG Oral Tablet Alprazolam 0.5 MG 07/14/2019 12:00:00 AM EDT 1.0 {tablet_as_needed} active Alprazolam 0 .5 MG eCW1 ([facility]) 75 mg 07/14/2019 12:00:00 AM EDT tablet 90 TAKE ONE TABLET BY MOUTH EVERY DAY TAKE ONE TABLET BY MOUTH EVERY DAY SOLD: 11/08/2019 [facility] Alprazolam 0.5 MG Oral Tablet Alprazolam 0.5 MG 07/14/2019 12:00:00 AM EDT 1.0 {tablet_as_needed} active Alprazolam 0 .5 MG eCW1 ([facility]) Alprazolam 0.5 MG Oral Tablet Alprazolam 0.5 MG 07/14/2019 12:00:00 AM EDT 1.0 {tablet_as_needed} active Alprazolam 0 .5 MG eCW1 ([facility]) 400 mg 07/14/2019 12:00:00 AM EDT capsule 180 TAKE ONE CAPSULE BY MOUTH TWICE A DAY TAKE ONE CAPSULE BY MOUTH TWICE A DAY SOLD: 07/15/2019 [facility] Alprazolam 0.5 MG Oral Tablet ALPRAZOLAM 07/14/2019 12:00:00 AM EDT ta blet 10 TAKE ONE TABLET BY MOUTH TWICE A DAY NEEDED , MAXIMUM DAILY DOSE = TWO TABLETS TAKE ONE TABLET BY MOUTH TWICE A DAY NEEDED , MAXIMUM DAILY DOSE = TWO TABLETS SOLD: 07/15/2019 [facility] 400 mg 07/14/2019 12:00:00 AM EDT capsule 180 TAKE ONE CAPSULE BY MOUTH TWICE A DAY TAKE ONE CAPSULE BY MOUTH TWICE A DAY SOLD: 10/15/2019 [facility] Alprazolam 0.5 MG Oral Tablet Alprazolam 0.5 MG 07/14/2019 12:00:00 AM EDT 1.0 {tablet_as_needed} active Alprazolam 0 .5 MG eCW1 ([facility]) Alprazolam 0.5 MG Oral Tablet Alprazolam 0.5 MG 07/14/2019 12:00:00 AM EDT 1.0 {tablet_as_needed} active Alprazolam 0 .5 MG eCW1 ([facility]) 75 mg 07/14/2019 12:00:00 AM EDT tablet 90 TAKE ONE TABLET BY MOUTH EVERY DAY TAKE ONE TABLET BY MOUTH EVERY DAY SOLD: 07/15/2019 [facility] Alprazolam 0.5 MG Oral Tablet Alprazolam 0.5 MG 07/14/2019 12:00:00 AM EDT 1.0 {tablet_as_needed} active Alprazolam 0 .5 MG eCW1 ([facility]) 75 mg 07/14/2019 12:00:00 AM EDT tablet 90 TAKE ONE TABLET BY MOUTH EVERY DAY TAKE ONE TABLET BY MOUTH EVERY DAY SOLD: 02/25/2020 [facility] Alprazolam 0.5 MG Oral Tablet Alprazolam 0.5 MG 07/14/2019 12:00:00 AM EDT 1.0 {tablet_as_needed} active Alprazolam 0 .5 MG eCW1 ([facility]) 400 mg 07/14/2019 12:00:00 AM EDT capsule 180 TAKE ONE CAPSULE BY MOUTH TWICE A DAY TAKE ONE CAPSULE BY MOUTH TWICE A DAY SOLD: 01/15/2020 [facility] Alprazolam 0.5 MG Oral Tablet Alprazolam 0.5 MG 07/14/2019 12:00:00 AM EDT 1.0 {tablet_as_needed} active Alprazolam 0 .5 MG eCW1 ([facility]) Alprazolam 0.5 MG Oral Tablet Alprazolam 0.5 MG 07/14/2019 12:00:00 AM EDT 1.0 {tablet_as_needed} active Alprazolam 0 .5 MG eCW1 ([facility]) 350 mg 07/08/2019 12:00:00 AM EDT tablet [...] 90 TAKE ONE TABLET BY MOUTH EDUIN NUÑEZ MORNING TAKE ONE TABLET BY MOUTH EVERY MORNING SOLD: 05/21/2019 [facility] Paroxetine Hydrochloride 30 MG Oral Tablet PAROXETINE HCL 05/19/2019 12:00:00 AM EDT tablet 90 TAKE ONE TABLET BY MOUTH EDUIN NUÑEZ MORNING TAKE ONE TABLET BY MOUTH EVERY MORNING SOLD: 08/26/2019 [facility] 10 mg 05/19/2019 12:00:00 AM EDT tablet 90 TAKE ONE TABLET BY MOUTH EVERY DAY TAKE ONE TABLET BY MOUTH EVERY DAY SOLD: 05/21/2019 [facility] 10 mg 05/19/2019 12:00:00 AM EDT tablet 90 TAKE ONE TABLET BY MOUTH EVERY DAY TAKE ONE TABLET BY MOUTH EVERY DAY SOLD: 08/26/2019 [facility] Medrol Medrol 04/27/2019 12:00:00 AM EDT completed MEDENT ([facility] ) 4 mg 04/27/2019 12:00:00 AM EDT tablets,dose pack 21 USE DIRECTED USE DIRECTED SOLD: 04/27/2019 [facility] Lidocaine 50 MG/ML Topical Cream Lidocaine (Anorectal) 04/21 12:00:00 AM EST completed MEDENT ([facility]) Lidocaine Hydrochloride 0.02 MG/MG Topic al Gel Lidocaine HCl Urethral/Mucosal 2 % Lidocaine HCl Urethral/Mucosal 2 % 04/19/2019 12:00:00 AM EST active Lidocaine HCl Urethral/Mucosal 2 % eCW1 ([facility]) Lidocaine Hydrochloride 0.02 MG/MG Topic al Gel Lidocaine HCl Urethral/Mucosal 2 % Lidocaine HCl Urethral/Mucosal 2 % 04/19/2019 12:00:00 AM EST active Lidocaine HCl Urethral/Mucosal 2 % eCW1 ([facility]) Lidocaine Hydrochloride 0.02 MG/MG Topic al Gel Lidocaine HCl Urethral/Mucosal 2 % Lidocaine HCl Urethral/Mucosal 2 % 04/19/2019 12:00:00 AM EST active Lidocaine HCl Urethral/Mucosal 2 % eCW1 ([facility]) Lidocaine Hydrochloride 0.02 MG/MG Topic al Gel Lidocaine HCl Urethral/Mucosal 2 % Lidocaine HCl Urethral/Mucosal 2 % 04/19/2019 12:00:00 AM EST active Lidocaine HCl Urethral/Mucosal 2 % eCW1 ([facility]) Lidocaine Hydrochloride 0.02 MG/MG Topic al Gel Lidocaine HCl Urethral/Mucosal 2 % Lidocaine HCl Urethral/Mucosal 2 % 04/19/2019 12:00:00 AM EST active as directed eCW1 ([facility]) Lidocaine Hydrochloride 0.02 MG/MG Topic al Gel Lidocaine HCl Urethral/Mucosal 2 % Lidocaine HCl Urethral/Mucosal 2 % 04/19/2019 12:00:00 AM EST active Lidocaine HCl Urethral/Mucosal 2 % eCW1 ([facility]) Lidocaine Hydrochloride 0.02 MG/MG Topic al Gel Lidocaine HCl Urethral/Mucosal 2 % Lidocaine HCl Urethral/Mucosal 2 % 04/19/2019 12:00:00 AM EST active Lidocaine HCl Urethral/Mucosal 2 % eCW1 ([facility]) Lidocaine Hydrochloride 0.02 MG/MG Topic al Gel Lidocaine HCl Urethral/Mucosal 2 % Lidocaine HCl Urethral/Mucosal 2 % 04/19/2019 12:00:00 AM EST active Lidocaine HCl Urethral/Mucosal 2 % eCW1 ([facility]) Lidocaine Hydrochloride 0.02 MG/MG Topic al Gel Lidocaine HCl Urethral/Mucosal 2 % Lidocaine HCl Urethral/Mucosal 2 % 04/19/2019 12:00:00 AM EST active Lidocaine HCl Urethral/Mucosal 2 % eCW1 ([facility]) Lidocaine Hydrochloride 0.02 MG/MG Topic al Gel Lidocaine HCl Urethral/Mucosal 2 % Lidocaine HCl Urethral/Mucosal 2 % 04/19/2019 12:00:00 AM EST active Lidocaine HCl Urethral/Mucosal 2 % eCW1 ([facility]) pantoprazole 20 MG Delayed Release Oral Tablet Pantopr azole Sodium 20 MG Pantoprazole Sodium 20 MG 04/11/2019 12:00:00 AM EST 1.0 {tablet} active Pantoprazole Sodium 20 MG eCW1 ( [facility]) pantoprazole 20 MG Delayed Release Oral Tablet Pantopr azole Sodium 20 MG Pantoprazole Sodium 20 MG 04/11/2019 12:00:00 AM EST 1.0 {tablet} active Pantoprazole Sodium 20 MG eCW1 ( [facility]) pantoprazole 20 MG Delayed Release Oral Tablet Pantopr azole Sodium 20 MG Pantoprazole Sodium 20 MG 04/11/2019 12:00:00 AM EST 1.0 {tablet} active Pantoprazole Sodium 20 MG eCW1 ( [facility]) pantoprazole 20 MG Delayed Release Oral Tablet PANTOPRAZOLE SODIUM 04/11/2019 12:00:00 AM EST tablet,delayed release (DR/EC) 30 T MIGUE 1 TABLET BY MOUTH ONCE DAILY (STOP FAMOTIDINE AND OMEPRAZOLE) TAKE 1 TABLET BY MOUTH ONCE DAILY (STOP FAMOTIDINE AND OMEPRAZOLE) SOLD: 05/21/2019 [facility] pantoprazole 20 MG Delayed Release Oral Tablet Pantopr azole Sodium 20 MG Pantoprazole Sodium 20 MG 04/11/2019 12:00:00 AM EST 1.0 {tablet} active Pantoprazole Sodium 20 MG eCW1 ( [facility]) pantoprazole 20 MG Delayed Release Oral Tablet Pantopr azole Sodium 20 MG Pantoprazole Sodium 20 MG 04/11/2019 12:00:00 AM EST 1.0 {tablet} active Pantoprazole Sodium 20 MG eCW1 ( [facility]) pantoprazole 20 MG Delayed Release Oral Tablet Pantopr azole Sodium 20 MG Pantoprazole Sodium 20 MG 04/11/2019 12:00:00 AM EST active 1 tablet eCW1 ([facility]) pantoprazole 20 MG Delayed Release Oral Tablet Pantopr azole Sodium 20 MG Pantoprazole Sodium 20 MG 04/11/2019 12:00:00 AM EST 1.0 {tablet} active Pantoprazole Sodium 20 MG eCW1 ( [facility]) pantoprazole 20 MG Delayed Release Oral Tablet Pantopr azole Sodium 20 MG Pantoprazole Sodium 20 MG 04/11/2019 12:00:00 AM EST active 1 tablet eCW1 ([facility]) pantoprazole 20 MG Delayed Release Oral Tablet PANTOPRAZOLE SODIUM 04/11/2019 12:00:00 AM EST tablet,delayed release (DR/EC) 30 T MIGUE 1 TABLET BY MOUTH ONCE DAILY (STOP FAMOTIDINE AND OMEPRAZOLE) TAKE 1 TABLET BY MOUTH ONCE DAILY (STOP FAMOTIDINE AND OMEPRAZOLE) SOLD: 04/13/2019 [facility] pantoprazole 20 MG Delayed Release Oral Tablet Pantopr azole Sodium 20 MG Pantoprazole Sodium 20 MG 04/11/2019 12:00:00 AM EST 1.0 {tablet} active Pantoprazole Sodium 20 MG eCW1 ( [facility]) pantoprazole 20 MG Delayed Release Oral Tablet Pantopr azole Sodium 20 MG Pantoprazole Sodium 20 MG 04/11/2019 12:00:00 AM EST 1.0 {tablet} active Pantoprazole Sodium 20 MG eCW1 ( [facility]) pantoprazole 20 MG Delayed Release Oral Tablet Pantopr azole Sodium 20 MG Pantoprazole Sodium 20 MG 04/11/2019 12:00:00 AM EST 1.0 {tablet} active Pantoprazole Sodium 20 MG eCW1 ( [facility]) 20 mg 04/01/2019 12:00:00 AM EST capsule,delayed release (DR/EC) 30 TAKE ONE CAPSULE BY MOUTH EVERY DAY 30 MINUTES BEFORE MORNING MEAL NEEDED TAKE ONE CAPSULE BY MOUTH EVERY DAY 30 MINUTES BEFORE MORNING MEAL NEEDED SOLD: 04/01/2019 [facility] Doxycycline Monohydrate 100 MG Oral Capsule Doxycycline [place] hydrate 100 MG 03/31/2019 12:00:00 AM EST suspended 1 capsule eCW1 ([facility]) 100 mg 03/31/2019 12:00:00 AM EST capsule 10 TAKE ONE CAPSULE BY MOUTH EVERY 12 HOURS FOR 5 DAYS TAKE ONE CAPSULE BY MOUTH EVERY 12 HOURS FOR 5 DAYS SO LD: 03/31/2019 [facility] Prednisone 20 MG Oral Tablet PredniSONE 20 MG PredniSONE 20 MG 03/31/2019 12:00:00 AM EST suspended 2 tab lets eCW1 ([facility]) Prednisone 20 MG Oral Tablet PredniSONE 20 MG PredniSONE 20 MG 03/31/2019 12:00:00 AM EST active 2 tablet s eCW1 ([facility]) Omeprazole 20 MG Delayed Release Oral Tablet Omeprazole 20 M G 03/31/2019 12:00:00 AM EST active 1 capsul e 30 minutes before morning meal eCW1 ([facility]) 20 mg 03/31/2019 12:00:00 AM EST tablet 10 TAKE TWO TABLETS BY MOUTH EVERY DAY FOR 5 DAYS TAKE TWO TABLETS BY MOUTH EVERY DAY FOR 5 DAYS SOLD: 020 [facility] Doxycycline Monohydrate 100 MG Oral Capsule Doxycycline [place] hydrate 100 MG 03/31/2019 12:00:00 AM EST active 1 capsule eCW1 ([facility]) Doxycycline Monohydrate 100 MG Oral Capsule Doxycycline [place] hydrate 100 MG 03/31/2019 12:00:00 AM EST suspended 1 capsule eCW1 ([facility]) Prednisone 20 MG Oral Tablet PredniSONE 20 MG PredniSONE 20 MG 03/31/2019 12:00:00 AM EST suspended 2 tab lets eCW1 ([facility]) 400 mg 02/28/2019 12:00:00 AM EST capsule 60 TAKE ONE CAPSULE BY MOUTH TWICE A DAY TAKE ONE CAPSULE BY MOUTH TWICE A DAY SOLD: 03/31/2019 [facility] gabapentin 400 MG Oral Capsule Gabapentin 400 MG Gabapentin 400 MG 02/28/2019 12:00:00 AM EST active 1 capsul e eCW1 ([facility]) gabapentin 400 MG Oral Capsule Gabapentin 400 MG Gabapentin 400 MG 02/28/2019 12:00:00 AM EST 1.0 {capsule} active G abapentin 400 MG eCW1 ([facility]) gabapentin 400 MG Oral Capsule Gabapentin 400 MG Gabapentin 400 MG 02/28/2019 12:00:00 AM EST 1.0 {capsule} active G abapentin 400 MG eCW1 ([facility]) 400 mg 02/28/2019 12:00:00 AM EST capsule [...] {capsule} active G abapentin 400 MG eCW1 ([facility]) 400 mg 02/28/2019 12:00:00 AM EST capsule [...] {capsule} active G abapentin 400 MG eCW1 ([facility]) 4 mg 02/28/2019 12:00:00 AM EST tablet 60 TAKE ONE TABLET BY MOUTH TWICE A DAY NEEDED TAKE ONE TABLET BY MOUTH TWICE A DAY NEEDED SOLD: 03/02/2019 [facility] gabapentin 400 MG Oral Capsule Gabapentin 400 MG Gabapentin 400 MG 02/28/2019 12:00:00 AM EST 1.0 {capsule} active G abapentin 400 MG eCW1 ([facility]) gabapentin 400 MG Oral Capsule Gabapentin 400 MG Gabapentin 400 MG 02/28/2019 12:00:00 AM EST 1.0 {capsule} active G abapentin 400 MG eCW1 ([facility]) gabapentin 400 MG Oral Capsule Gabapentin 400 MG Gabapentin 400 MG 02/28/2019 12:00:00 AM EST active 1 capsul e eCW1 ([facility]) gabapentin 400 MG Oral Capsule Gabapentin 400 MG Gabapentin 400 MG 02/28/2019 12:00:00 AM EST active 1 capsul e eCW1 ([facility]) gabapentin 400 MG Oral Capsule Gabapentin 400 MG Gabapentin 400 MG 02/28/2019 12:00:00 AM EST active 1 capsul e eCW1 ([facility]) gabapentin 400 MG Oral Capsule Gabapentin 400 MG Gabapentin 400 MG 02/28/2019 12:00:00 AM EST 1.0 {capsule} active G abapentin 400 MG eCW1 ([facility]) gabapentin 400 MG Oral Capsule Gabapentin 400 MG Gabapentin 400 MG 02/28/2019 12:00:00 AM EST 1.0 {capsule} active G abapentin 400 MG eCW1 ([facility]) gabapentin 400 MG Oral Capsule Gabapentin 400 MG Gabapentin 400 MG 02/28/2019 12:00:00 AM EST 1.0 {capsule} active G abapentin 400 MG eCW1 ([facility]) 40 mg 02/24/2019 12:00:00 AM EST tablet [...] ST active 1 tablet at bedtime eCW1 ([facility]) Famotidine 40 MG Oral Tablet Famotidine 40 MG 02/21/2019 12:00:[address] suspended 1 tablet at bedtime eCW1 ([facility]) Famotidine 40 MG Oral Tablet Famotidine 40 MG 02/21/2019 12:00:[address] suspended 1 tablet at bedtime eCW1 ([facility]) 25 mg 02/08/2019 12:00:00 AM EST capsule 90 TAKE ONE CAPSULE BY MOUTH EVERY DAY TAKE ONE CAPSULE BY MOUTH EVERY DAY SOLD: 02/10/2019 [facility] 150 mg 01/28/2019 12:00:00 AM EST tablet 180 TAKE ONE TABLET BY MOUTH TWICE A DAY TAKE ONE TABLET BY MOUTH TWICE A DAY SOLD: 01/28/2019 [facility] Prednisone 20 MG Oral Tablet PredniSONE 20 MG PredniSONE 20 MG 01/21/2019 12:00:00 AM EST suspended 2 tab lets eCW1 ([facility]) 20 mg 01/21/2019 12:00:00 AM EST tablet 10 TAKE TWO TABLETS BY MOUTH EVERY DAY FOR 5 DAYS TAKE TWO TABLETS BY MOUTH EVERY DAY FOR 5 DAYS SOLD: 019 [facility] Prednisone 20 MG Oral Tablet PredniSONE 20 MG PredniSONE 20 MG 01/21/2019 12:00:00 AM EST active 2 tablet s eCW1 ([facility]) Doxycycline Monohydrate 100 MG Oral Capsule Doxycycline [place] hydrate 100 MG 01/21/2019 12:00:00 AM EST suspended 1 capsule eCW1 ([facility]) Doxycycline Monohydrate 100 MG Oral Capsule Doxycycline [place] hydrate 100 MG 01/21/2019 12:00:00 AM EST suspended 1 capsule eCW1 ([facility]) Doxycycline Monohydrate 100 MG Oral Capsule Doxycycline [place] hydrate 100 MG 01/21/2019 12:00:00 AM EST suspended 1 capsule eCW1 ([facility]) Prednisone 20 MG Oral Tablet PredniSONE 20 MG PredniSONE 20 MG 01/21/2019 12:00:00 AM EST suspended 2 tab lets eCW1 ([facility]) Doxycycline Monohydrate 100 MG Oral Capsule Doxycycline [place] hydrate 100 MG 01/21/2019 12:00:00 AM EST active 1 capsule eCW1 ([facility]) Doxycycline Monohydrate 100 MG Oral Capsule Doxycycline [place] hydrate 100 MG 01/21/2019 12:00:00 AM EST suspended 1 capsule eCW1 ([facility]) 100 mg 01/21/2019 12:00:00 AM EST capsule 14 TAKE ONE CAPSULE BY MOUTH EVERY 12 HOURS FOR 7 DAYS TAKE ONE CAPSULE BY MOUTH EVERY 12 HOURS FOR 7 DAYS SO LD: 01/21/2019 [facility] Prednisone 20 MG Oral Tablet PredniSONE 20 MG PredniSONE 20 MG 01/21/2019 12:00:00 AM EST suspended 2 tab lets eCW1 ([facility]) Prednisone 20 MG Oral Tablet PredniSONE 20 MG PredniSONE 20 MG 01/21/2019 12:00:00 AM EST suspended 2 tab lets eCW1 ([facility]) 2.5 mg /3 mL (0.083 %) 01/12/2019 [...] BY MOUTH EVERY MORNING SOLD: 02/20/[address] [facility] 300 mg 11/19/2018 12:00:00 AM EDT [...] 300 MG Oral Capsule POLO ([facility]) umeclidinium 0.0625 MG/ACTUAT / vilanter ol 0.025 MG/ACTUAT Dry Powder Inhaler Anoro Ellipta 62.5 mcg-25 mcg/actuation powder for inhalation Anoro Ellipta 62.5 mcg-25 mcg/actuation powder for inhalation completed umeclidinium 0.0625 MG/ACTUAT / vilanterol 0.025 MG/ACTUAT Dry Powder Inhaler POLO ([facility]) omeprazole 20 mg cpdr completed omeprazole 20 mg cpdr POLO ([facility]) Cyclobenzaprine hydrochloride 10 MG Oral Tablet cyclobenzaprine 10 mg tablet TAKE ONE TABLET BY MOUTH EVERY DAY AT BEDTIME cyclobenzaprine 10 mg tablet TAKE ONE TABLET BY MOUTH EVERY DAY AT BEDTIME completed cyclobenzaprine hydrochloride 10 MG Oral Tablet POLO ([facility]) omeprazole 20 mg cpdr completed omeprazole 20 mg cpdr POLO ([facility]) alprazolam 0.5 mg tabs completed alprazolam 0.5 mg tabs POLO ([facility]) alprazolam 0.5 mg tabs completed alprazolam 0.5 mg tabs POLO ([facility]) gabapentin 300 mg caps completed gabapentin 300 mg caps POLO ([facility]) gabapentin 400 mg caps completed gabapentin 400 mg caps POLO ([facility]) NITROFURANTOIN, MACROCRYSTALS 25 MG / Ni trofurantoin, Monohydrate 75 MG Oral Capsule nitrofurantoin monohydrate/macrocrystals 100 mg capsule nitrofurantoin monohydrate/macrocrystals 100 mg capsule completed nitrofurantoin, macrocrystals 25 MG / nitrofurantoin, monohydrate 75 MG Oral Capsule POLO ([facility]) paroxetine hcl 30 mg tabs compl eted paroxetine hcl 30 mg tabs POLO ([facility]) alprazolam 0.5 mg tabs completed alprazolam 0.5 mg tabs POLO ([facility]) Trazodone Hydrochloride 50 MG Oral Tablet trazodone 50 mg tablet 1 tab daily trazodone 50 mg tablet 1 tab daily com pleted trazodone hydrochloride 50 MG Oral Tablet POLO ([facility]) atorvastatin calcium 80 mg tabs completed atorvastatin calcium 80 mg tabs [facility] ([facility]) topiramate 100 mg tabs completed topiramate 100 mg tabs POLO ([facility]) Ranitidine 150 MG Oral Tablet ranitidine 150 mg tablet ranit idine 150 mg tablet completed ranitidine 150 MG Oral Tablet POLO ([facility]) Alprazolam 0.5 MG Oral Tablet alprazolam 0.5 mg tablet TAKE ONE TABLET BY MOUTH TWICE A DAY NEEDED MAXIMUM DAILY DOSE TWO TABLETS alprazolam 0.5 mg tablet TAKE ONE TABLET BY MOUTH TWICE A DAY NEEDED MAXIMUM DAILY DOSE TWO TABLETS completed alprazolam 0. 5 MG Oral Tablet POLO ([facility]) doxycycline monohydrate 100 mg caps completed doxycycline monohydrate 100 mg caps [facility] ([facility]) alprazolam 0.5 mg tabs completed alprazolam 0.5 mg tabs [facility]O ([facility]) Prednisone 20 MG Oral Tablet prednisone 20 mg tablet prednisone 20 mg tablet completed prednisone 20 MG Oral Tablet [facility] ([facility]) tizanidine hydrochloride 4 mg tabs completed tizanidine hydrochloride 4 mg tabs POLO ([facility]) carisoprodol 350 mg tabs completed carisoprodol 350 mg tabs POLO ([facility]) methylprednisolone dose pack 4 mg tbpk completed methylprednisolone dose pack 4 mg tbpk POL[facility] ([facility]) NITROFURANTOIN, MACROCRYSTALS 25 MG / Ni trofurantoin, Monohydrate 75 MG Oral Capsule nitrofurantoin monohydrate/macrocrystals 100 mg capsule nitrofurantoin monohydrate/macrocrystals 100 mg capsule completed nitrofurantoin, macrocrystals 25 MG / nitrofurantoin, monohydrate 75 MG Oral Capsule POLO ([facility]) Doxycycline Monohydrate 100 MG Oral Caps ule doxycycline monohydrate 100 mg capsule doxycycline monohydrate 100 mg capsule completed doxycycline monohydrate 100 MG Oral Capsule POLO ([facility]) omeprazole 20 mg cpdr completed omeprazole 20 mg cpdr POLO ([facility]) Sulfamethoxazole 800 MG / Trimethoprim 1 60 MG Oral Tablet sulfamethoxazole 800 mg-trimethoprim 160 mg tablet sulfamethoxazole 800 mg-trimethoprim 160 mg tablet completed sulfame thoxazole 800 MG / trimethoprim 160 MG Oral Tablet POLO ([facility]) ezetimibe 10 mg tabs completed ezetimibe 10 mg tabs POLO ([facility]) atorvastatin calcium 80 mg tabs completed atorvastatin calcium 80 mg tabs POLO ([facility]) carisoprodol 350 mg tabs completed carisoprodol 350 mg tabs POLO ([facility]) Nortriptyline 25 MG Oral Capsule nortrip tyline 25 mg capsule TAKE ONE CAPSULE BY MOUTH EVERY DAY nortriptyline 25 mg capsule TAKE ONE CAP ALEXX BY MOUTH EVERY DAY completed nortriptyline 25 MG Oral Capsule POLO ([facility]) Trazodone Hydrochloride 50 MG Oral Tablet trazodone 50 mg tablet 1 tab daily trazodone 50 mg tablet 1 tab daily com pleted trazodone hydrochloride 50 MG Oral Tablet POLO ([facility]) atorvastatin calcium 80 mg tabs completed atorvastatin calcium 80 mg tabs [facility] ([facility]) Prednisone 20 MG Oral Tablet prednisone 20 mg tablet prednisone 20 mg tablet completed prednisone 20 MG Oral Tablet POLO ([facility]) famotidine 40 mg tabs completed famotidine 40 mg tabs POLO ([facility]) Phenazopyridine hydrochloride 200 MG Ora l Tablet phenazopyridine 200 mg tablet TAKE ONE TABLET BY MOUTH THREE TIMES A DAY AFTER MEALS phenazopyridine 200 mg tablet TAKE ONE TABLET BY MOUTH THREE TIMES A DAY AFTER MEALS completed phenazopyridine hydrochloride 20 0 MG Oral Tablet POLO ([facility]) omeprazole 20 mg cpdr completed omeprazole 20 mg cpdr [facility] ([facility]) carisoprodol 350 mg tabs completed carisoprodol 350 mg tabs POLO ([facility]) fluticasone furoate 0.2 MG/ACTUAT Dry Po wder Inhaler Arnuity Ellipta 200 mcg/actuation powder for inhalation Arnuity Ellipta 200 mcg/actuation powder for inhalation completed fl uticasone furoate 0.2 MG/ACTUAT Dry Powder Inhaler POLO ([facility]) doxycycline monohydrate 100 mg caps completed doxycycline monohydrate 100 mg caps POLO ([facility]) gabapentin 100 MG Oral Capsule gabapentin 100 mg capsu le gabapentin 100 mg capsule completed gabapentin 100 MG Oral Capsule POLO ([facility]) methylprednisolone dose pack 4 mg tbpk completed methylprednisolone dose pack 4 mg tbpk POLO ([facility]) Nortriptyline 25 MG Oral Capsule nortrip tyline 25 mg capsule TAKE ONE CAPSULE BY MOUTH EVERY DAY nortriptyline 25 mg capsule TAKE ONE CAP ALEXX BY MOUTH EVERY DAY completed nortriptyline 25 MG Oral Capsule POLO ([facility]) Nortriptyline 25 MG Oral Capsule nortrip tyline 25 mg capsule TAKE ONE CAPSULE BY MOUTH EVERY DAY nortriptyline 25 mg capsule TAKE ONE CAP ALEXX BY MOUTH EVERY DAY completed nortriptyline 25 MG Oral Capsule POLO ([facility]) Famotidine 40 MG Oral Tablet famotidine 40 mg tablet famotidine 40 mg tablet completed famotidine 40 MG Oral Tablet POLO ([facility]) lidocaine hcl jelly 2 % gel com pleted lidocaine hcl jelly 2 % gel POLO ([facility]) pantoprazole sodium 20 mg tbec completed pantoprazole sodium 20 mg tbec POLO ([facility]) methylprednisolone 4 mg tablets in a dose pack [id number] completed methylprednisolone 4 mg tablets in a dose pack POLO ([facility]) famotidine 40 mg tabs completed famotidine 40 mg tabs POLO ([facility]) doxycycline monohydrate 100 mg caps completed doxycycline monohydrate 100 mg caps [facility] ([facility]) Lidocaine Hydrochloride 0.02 MG/MG Topical Gel lidocai ne HCl 2 % mucosal jelly lidocaine HCl 2 % mucosal jelly comple alyssa lidocaine hydrochloride 0.02 MG/MG Topical Gel [facility] ([facility]) Trazodone Hydrochloride 50 MG Oral Tablet trazodone 50 mg tablet 1 tab daily trazodone 50 mg tablet 1 tab daily com pleted trazodone hydrochloride 50 MG Oral Tablet [facility] ([facility]) Trazodone Hydrochloride 50 MG Oral Tablet trazodone 50 mg tablet 1 tab daily trazodone 50 mg tablet 1 tab daily com pleted trazodone hydrochloride 50 MG Oral Tablet [facility] ([facility]) albuterol sulfate HFA 90 mcg/actuation a erosol inhaler INHALE TWO PUFFS BY MOUTH FOUR TIMES A DAY NEEDED [id number] completed [id number] 200 ACTUAT albuterol 0.09 MG/ACTUAT Metered Dose Inhaler [facility] ([facility]) paroxetine hcl 30 mg tabs compl eted paroxetine hcl 30 mg tabs [facility] ([facility]) pantoprazole sodium 20 mg tbec completed pantoprazole sodium 20 mg tbec [facility] ([facility]) ezetimibe 10 mg tabs completed ezetimibe 10 mg tabs [facility] ([facility]) topiramate 100 mg tabs completed topiramate 100 mg tabs [facility] ([facility]) gabapentin 400 mg caps completed gabapentin 400 mg caps [facility] ([facility]) topiramate 100 mg tabs completed topiramate 100 mg tabs [facility] ([facility]) famotidine 40 mg tabs completed famotidine 40 mg tabs [facility] ([facility]) Prednisone 20 MG Oral Tablet prednisone 20 mg tablet prednisone 20 mg tablet completed prednisone 20 MG Oral Tablet [facility] ([facility]) carisoprodol 350 mg tabs completed carisoprodol 350 mg tabs [facility] ([facility]) tizanidine 4 MG Oral Tablet tizanidine 4 mg tablet tizanidine 4 mg ta blet completed tizanidine 4 MG Oral Tablet [facility] ([facility]) gabapentin 300 mg caps completed gabapentin 300 mg caps [facility] ([facility]) gabapentin 400 mg caps completed gabapentin 400 mg caps [facility] ([facility]) Trazodone Hydrochloride 50 MG Oral Tablet trazodone 50 mg tablet 1 tab daily trazodone 50 mg tablet 1 tab daily com pleted trazodone hydrochloride 50 MG Oral Tablet [facility] ([facility]) famotidine 40 mg tabs completed famotidine 40 mg tabs [facility] ([facility]) famotidine 40 mg tabs completed famotidine 40 mg tabs [facility] ([facility]) alprazolam 0.5 mg tabs completed alprazolam 0.5 mg tabs [facility] ([facility]) tizanidine hydrochloride 4 mg tabs completed tizanidine hydrochloride 4 mg tabs [facility] ([facility]) prednisone 20 mg tabs completed prednisone 20 mg tabs [facility] ([facility]) Baclofen 10 MG Oral Tablet baclofen 10 mg tablet baclofen 10 mg tablet completed Baclofen 10 MG Oral Table t [facility] ([facility]) methylprednisolone dose pack 4 mg tbpk completed methylprednisolone dose pack 4 mg tbpk [place] ([facility]) Fluzone Quad (PF) 60 mcg (15 m cg x 4)/0.5 mL IM suspension INJECT DIRECTED [id number] completed 0.5 ML influenza A virus A/[facility]/[id number] (H1N1) antigen 0.03 MG/ML / influenza A virus A/[facility] (H3N2) antigen 0.03 MG/ML / influenza B virus B/[id number] antigen 0.03 MG/ML / influenza B virus B/ antigen 0.03 MG/ML Injection [Fluzone Quadrivalent ] [facility] ([facility]) Alprazolam 0.5 MG Oral Tablet alprazolam 0.5 mg tablet TAKE ONE TABLET BY MOUTH TWICE A DAY NEEDED MAXIMUM DAILY DOSE TWO TABLETS alprazolam 0.5 mg tablet TAKE ONE TABLET BY MOUTH TWICE A DAY NEEDED MAXIMUM DAILY DOSE TWO TABLETS completed alprazolam 0.5 MG Oral Tablet [facility] ([facility]) gabapentin 400 mg caps completed gabapentin 400 mg caps [facility] ([facility]) pantoprazole sodium 20 mg tbec completed pantoprazole sodium 20 mg tbec [facility] ([facility]) omeprazole 20 mg cpdr completed omeprazole 20 mg cpdr [facility] ([facility]) ipratropium/ tiff albuter completed ipratropium/ tiff albuter [facility] ([facility]) paroxetine hcl 30 mg tabs compl eted paroxetine hcl 30 mg tabs [facility] ([facility]) hydroco/apap tab 5-325mg completed hydroco/apap tab 5-325mg [facility] ([facility]) doxycycline monohydrate 100 mg caps completed doxycycline monohydrate 100 mg caps [facility] ([facility]) Doxycycline Monohydrate 100 MG Oral Caps ule doxycycline monohydrate 100 mg capsule doxycycline monohydrate 100 mg capsule completed doxycycline monohydrate 100 MG Oral Capsule [facility] ([facility]) omeprazole 20 mg cpdr completed omeprazole 20 mg cpdr [facility] ([facility]) atorvastatin calcium 80 mg tabs completed atorvastatin calcium 80 mg tabs [facility] ([facility]) doxycycline monohydrate 100 mg caps completed doxycycline monohydrate 100 mg caps [facility] ([facility]) gabapentin 400 mg caps completed gabapentin 400 mg caps [facility] ([facility]) methylprednisolone 4 mg tablets in a dose pack [id number] completed methylprednisolone 4 mg tablets in a dose pack [facility] ([facility]) Famotidine 40 MG Oral Tablet famotidine 40 mg tablet famotidine 40 mg tablet completed famotidine 40 MG Oral Tablet [facility] ([facility]) doxycycline monohydrate 100 mg caps completed doxycycline monohydrate 100 mg caps [facility] ([facility]) clopidogrel 75 mg tabs completed clopidogrel 75 mg tabs [facility] ([facility]) topiramate 100 mg tabs completed topiramate 100 mg tabs [facility] ([facility]) gabapentin 400 mg caps completed gabapentin 400 mg caps [facility] ([facility]) tizanidine hydrochloride 4 mg tabs completed tizanidine hydrochloride 4 mg tabs [facility] ([facility]) paroxetine hcl 30 mg tabs compl eted paroxetine hcl 30 mg tabs [facility] ([facility]) Carisoprodol 350 MG Oral Tablet carisopr odol 350 mg tablet Take 1 tablet 3 times a day by oral route as needed for 5 days. carisoprodol 350 mg tablet Take 1 tablet 3 times a day by oral route as needed for 5 days. 1 completed carisoprodol 350 MG Oral Tablet [facility] ( [facility]) Doxycycline Monohydrate 100 MG Oral Caps ule doxycycline monohydrate 100 mg capsule doxycycline monohydrate 100 mg capsule completed doxycycline monohydrate 100 MG Oral Capsule [facility] ([facility]) alprazolam 0.5 mg tabs completed alprazolam 0.5 mg tabs [facility] ([facility]) clopidogrel 75 mg tabs completed clopidogrel 75 mg tabs [facility] ([facility]) Carisoprodol 350 MG Oral Tablet carisopr odol 350 mg tablet Take 1 tablet 3 times a day by oral route as needed for 5 days. carisoprodol 350 mg tablet Take 1 tablet 3 times a day by oral route as needed for 5 days. 1 completed carisoprodol 350 MG Oral Tablet [facility] ( [facility]) clopidogrel 75 mg tabs completed clopidogrel 75 mg tabs [facility] ([facility]) prednisone 20 mg tabs completed prednisone 20 mg tabs [facility] ([facility]) Carisoprodol 350 MG Oral Tablet carisopr odol 350 mg tablet Take 1 tablet 3 times a day by oral route as needed for 5 days. carisoprodol 350 mg tablet Take 1 tablet 3 times a day by oral route as needed for 5 days. 1 completed carisoprodol 350 MG Oral Tablet [facility] ( [facility]) Prednisone 20 MG Oral Tablet prednisone 20 mg tablet prednisone 20 mg tablet completed prednisone 20 MG Oral Tablet [facility] ([facility]) Lidocaine Hydrochloride 0.02 MG/MG Topical Gel lidocai ne HCl 2 % mucosal jelly lidocaine HCl 2 % mucosal jelly comple alyssa lidocaine hydrochloride 0.02 MG/MG Topical Gel [facility] ([facility]) topiramate 100 mg tabs completed topiramate 100 mg tabs [facility] ([facility]) Carisoprodol 350 MG Oral Tablet carisopr odol 350 mg tablet Take 1 tablet 3 times a day by oral route as needed for 5 days. carisoprodol 350 mg tablet Take 1 tablet 3 times a day by oral route as needed for 5 days. 1 completed carisoprodol 350 MG Oral Tablet [facility] ( [facility]) lidocaine hcl jelly 2 % gel com pleted lidocaine hcl jelly 2 % gel [facility] ([facility]) pantoprazole sodium 20 mg tbec completed pantoprazole sodium 20 mg tbec [facility] ([facility]) Nortriptyline 25 MG Oral Capsule nortrip tyline 25 mg capsule TAKE ONE CAPSULE BY MOUTH EVERY DAY nortriptyline 25 mg capsule TAKE ONE CAPSULE BY MOUTH EVERY DAY completed nortriptyline 25 MG Oral Capsule [facility] ([facility]) lidocaine 5 % topical patch [id number] com pleted lidocaine 0.05 MG/MG Medicated Patch [facility] ([facility]) atorvastatin calcium 80 mg tabs completed atorvastatin calcium 80 mg tabs [facility] ([facility]) Cyclobenzaprine hydrochloride 10 MG Oral Tablet cyclobenzaprine 10 mg tablet TAKE ONE TABLET BY MOUTH EVERY DAY AT BEDTIME cyclobenzaprine 10 mg tablet TAKE ONE TABLET BY MOUTH EVERY DAY AT BEDTIME completed cyclobenzaprine hydrochloride 10 MG Oral Tablet [facility] ([facility]) omeprazole 20 mg cpdr completed omeprazole 20 mg cpdr [facility] ([facility]) clopidogrel 75 mg tabs completed clopidogrel 75 mg tabs [facility] ([facility]) lidocaine hcl jelly 2 % gel com pleted lidocaine hcl jelly 2 % gel [facility] ([facility]) Carisoprodol 350 MG Oral Tablet carisopr odol 350 mg tablet Take 1 tablet 3 times a day by oral route as needed for 5 days. carisoprodol 350 mg tablet Take 1 tablet 3 times a day by oral route as needed for 5 days. 1 completed carisoprodol 350 MG Oral Tablet [facility] ( [facility]) topiramate 100 mg tabs completed topiramate 100 mg tabs [facility] ([facility]) methylprednisolone 4 mg tablets in a dose pack [id number] completed methylprednisolone 4 mg tablets in a dose pack [place] ([facility]) Prednisone 20 MG Oral Tablet prednisone 20 mg tablet prednisone 20 mg tablet completed prednisone 20 MG Oral Tablet [facility] ([facility]) tizanidine hydrochloride 4 mg tabs completed tizanidine hydrochloride 4 mg tabs [facility] ([facility]) gabapentin 300 mg caps completed gabapentin 300 mg caps [facility] ([facility]) Lidocaine Hydrochloride 0.02 MG/MG Topical Gel lidocai ne HCl 2 % mucosal jelly lidocaine HCl 2 % mucosal jelly comple alyssa lidocaine hydrochloride 0.02 MG/MG Topical Gel [facility] ([facility]) albuterol sulfate HFA 90 mcg/actuation a erosol inhaler INHALE TWO PUFFS BY MOUTH FOUR TIMES A DAY NEEDED [id number] completed [id number] 200 ACTUAT albuterol 0.09 MG/ACTUAT Metered Dose Inhaler [facility] ([facility]) Carisoprodol 350 MG Oral Tablet carisopr odol 350 mg tablet Take 1 tablet 3 times a day by oral route as needed for 5 days. carisoprodol 350 mg tablet Take 1 tablet 3 times a day by oral route as needed for 5 days. 1 completed carisoprodol 350 MG Oral Tablet [facility] ( [facility]) pantoprazole 20 MG Delayed Release Oral Tablet pantoprazole 20 mg tablet,delayed release pantoprazole 20 mg tablet,delayed release completed pantoprazole 20 MG Delayed Release Oral Tablet [facility] ([facility]) ezetimibe 10 mg tabs completed ezetimibe 10 mg tabs [facility] ([facility]) carisoprodol 350 mg tabs completed carisoprodol 350 mg tabs [facility] ([facility]) gabapentin 400 mg caps completed gabapentin 400 mg caps [facility] ([facility]) omeprazole 20 mg cpdr completed omeprazole 20 mg cpdr [facility] ([facility]) Alprazolam 0.5 MG Oral Tablet alprazolam 0.5 mg tablet TAKE ONE TABLET BY MOUTH TWICE A DAY NEEDED MAXIMUM DAILY DOSE TWO TABLETS alprazolam 0.5 mg tablet TAKE ONE TABLET BY MOUTH TWICE A DAY NEEDED MAXIMUM DAILY DOSE TWO TABLETS completed alprazolam 0.5 MG Oral Tablet [facility] ([facility]) Carisoprodol 350 MG Oral Tablet carisopr odol 350 mg tablet Take 1 tablet 3 times a day by oral route as needed for 5 days. carisoprodol 350 mg tablet Take 1 tablet 3 times a day by oral route as needed for 5 days. 1 completed carisoprodol 350 MG Oral Tablet [facility] ( [facility]) Baclofen 10 MG Oral Tablet baclofen 10 mg tablet baclofen 10 mg tablet completed baclofen 10 MG Oral Table t [facility] ([facility]) Lidocaine Hydrochloride 0.02 MG/MG Topical Gel lidocai ne HCl 2 % mucosal jelly lidocaine HCl 2 % mucosal jelly comple alyssa lidocaine hydrochloride 0.02 MG/MG Topical Gel [facility] ([facility]) Lidocaine Hydrochloride 0.02 MG/MG Topical Gel lidocai ne HCl 2 % mucosal jelly lidocaine HCl 2 % mucosal jelly comple alyssa lidocaine hydrochloride 0.02 MG/MG Topical Gel [facility] ([facility]) Phenazopyridine hydrochloride 200 MG Ora l Tablet phenazopyridine 200 mg tablet TAKE ONE TABLET BY MOUTH THREE TIMES A DAY AFTER MEALS phenazopyridine 200 mg tablet TAKE ONE TABLET BY MOUTH THREE TIMES A DAY AFTER MEALS completed phenazopyridine hydrochloride 20 0 MG Oral Tablet POOL ([facility]) Trazodone Hydrochloride 50 MG Oral Tablet trazodone 50 mg tablet 1 tab daily trazodone 50 mg tablet 1 tab daily com pleted trazodone hydrochloride 50 MG Oral Tablet [facility] ([facility]) doxycycline monohydrate 100 mg caps completed doxycycline monohydrate 100 mg caps [facility] ([facility]) hydroco/apap tab 5-325mg completed hydroco/apap tab 5-325mg [facility] ([facility]) gabapentin 100 MG Oral Capsule gabapentin 100 mg capsu le gabapentin 100 mg capsule completed gabapentin 100 MG Oral Capsule [facility] ([facility]) atorvastatin calcium 80 mg tabs completed atorvastatin calcium 80 mg tabs [facility] ([facility]) Lidocaine Hydrochloride 0.02 MG/MG Topical Gel lidocai ne HCl 2 % mucosal jelly lidocaine HCl 2 % mucosal jelly comple alyssa lidocaine hydrochloride 0.02 MG/MG Topical Gel [facility] ([facility]) albuterol sulfate HFA 90 mcg/actuation a erosol inhaler INHALE TWO PUFFS BY MOUTH FOUR TIMES A DAY NEEDED [id number] completed [id number] 200 ACTUAT albuterol 0.09 MG/ACTUAT Metered Dose Inhaler [facility] ([facility]) Prednisone 20 MG Oral Tablet prednisone 20 mg tablet prednisone 20 mg tablet completed prednisone 20 MG Oral Tablet [facility] ([facility]) clopidogrel 75 mg tabs completed clopidogrel 75 mg tabs [facility] ([facility]) pantoprazole sodium 20 mg tbec completed pantoprazole sodium 20 mg tbec [facility] ([facility]) alprazolam 0.5 mg tabs completed alprazolam 0.5 mg tabs [facility] ([facility]) alprazolam 0.5 mg tabs completed alprazolam 0.5 mg tabs [facility] ([facility]) famotidine 40 mg tabs completed famotidine 40 mg tabs [facility] ([facility]) gabapentin 300 mg caps completed gabapentin 300 mg caps [facility] ([facility]) umeclidinium 0.0625 MG/ACTUAT / vilanter ol 0.025 MG/ACTUAT Dry Powder Inhaler Anoro Ellipta 62.5 mcg-25 mcg/actuation powder for inhalation INHALE ONE PUFF BY MOUTH EVERY DAY Anoro Ellipta 62.5 mcg-25 mcg/actuation powder for inhalation INHALE ONE PUFF BY MOUTH EVERY DAY com pleted umeclidinium 0.0625 MG/ACTUAT / vilanterol 0.025 MG/ACTUAT Dry Powder Inhaler [facility] ([facility]) tizanidine hydrochloride 4 mg tabs completed tizanidine hydrochloride 4 mg tabs [facility] ([facility]) gabapentin 300 mg caps completed gabapentin 300 mg caps [facility] ([facility]) ezetimibe 10 mg tabs completed ezetimibe 10 mg tabs [facility] ([facility]) Lidocaine Hydrochloride 0.02 MG/MG Topical Gel lidocai ne HCl 2 % mucosal jelly lidocaine HCl 2 % mucosal jelly comple alyssa lidocaine hydrochloride 0.02 MG/MG Topical Gel [facility] ([facility]) Nortriptyline 25 MG Oral Capsule nortrip tyline 25 mg capsule TAKE ONE CAPSULE BY MOUTH EVERY DAY nortriptyline 25 mg capsule TAKE ONE CAPSULE BY MOUTH EVERY DAY completed nortriptyline 25 MG Oral Capsule [facility] ([facility]) prednisone 20 mg tabs completed prednisone 20 mg tabs [facility] ([facility]) ipratropium/ tiff albuter completed ipratropium/ tiff albuter [facility] ([facility]) doxycycline monohydrate 100 mg caps completed doxycycline monohydrate 100 mg caps [facility] ([facility]) Lidocaine Hydrochloride 0.02 MG/MG Topical Gel lidocai ne HCl 2 % mucosal jelly lidocaine HCl 2 % mucosal jelly comple alyssa lidocaine hydrochloride 0.02 MG/MG Topical Gel [facility] ([facility]) atorvastatin calcium 80 mg tabs completed atorvastatin calcium 80 mg tabs [facility] ([facility]) doxycycline monohydrate 100 mg caps completed doxycycline monohydrate 100 mg caps [facility] ([facility]) Acetaminophen 325 MG / Hydrocodone Sony trate 5 MG Oral Tablet hydrocodone 5 mg- acetaminophen 325 mg tablet hydrocodone 5 mg-acetaminophen 325 mg tablet completed acetaminophen 325 MG / hydrocodone bitartrate 5 MG Oral Tablet [facility] ([facility]) famotidine 40 mg tabs completed famotidine 40 mg tabs [facility] ([facility]) Carisoprodol 350 MG Oral Tablet carisopr odol 350 mg tablet Take 1 tablet 3 times a day by oral route as needed for 5 days. carisoprodol 350 mg tablet Take 1 tablet 3 times a day by oral route as needed for 5 days. 1 completed carisoprodol 350 MG Oral Tablet [facility] ( [facility]) NITROFURANTOIN, MACROCRYSTALS 25 MG / Ni trofurantoin, Monohydrate 75 MG Oral Capsule nitrofurantoin monohydrate/macrocrystals 100 mg capsule nitrofurantoin monohydrate/macrocrystals 100 mg capsule completed nitrofurantoin, macrocrystals 25 MG / nitrofurantoin, monohydrate 75 MG Oral Capsule [facility] ([facility]) ipratropium/ tiff albuter completed ipratropium/ tiff albuter [facility] ([facility]) lidocaine hcl jelly 2 % gel com pleted lidocaine hcl jelly 2 % gel [facility] ([facility]) carisoprodol 350 mg tabs completed carisoprodol 350 mg tabs [facility] ([facility]) lidocaine 5 % topical patch [id number] com pleted lidocaine 0.05 MG/MG Medicated Patch [facility] ([facility]) Famotidine 40 MG Oral Tablet famotidine 40 mg tablet famotidine 40 mg tablet completed famotidine 40 MG Oral Tablet [facility] ([facility]) Albuterol 0.833 MG/ML / Ipratropium Brom simin 0.167 MG/ML Inhalant Solution ipratropium 0.5 mg-albuterol 3 mg (2.5 mg base)/3 mL nebulization soln twice a day as needed ipratropium 0.5 mg-albuterol 3 mg (2.5 m g base)/3 mL nebulization soln twice a day as needed completed albuterol 0.833 MG/ML / ipratropium bromide 0.167 MG/ML Inhalation Solution [facility] ([facility]) gabapentin 400 mg caps completed gabapentin 400 mg caps [facility] ([facility]) Omeprazole 20 MG Delayed Release Oral Ca psule omeprazole 20 mg capsule,delayed release TAKE ONE CAPSULE BY MOUTH EVERY DAY 30 MINUTES BEFORE MORNING MEAL NEEDED omeprazole 20 mg capsule,delayed release TAKE ONE CAPSULE BY MOUTH EVERY DAY 30 MINUTES BEFORE MORNING MEAL NEEDED completed omeprazole 20 MG Delayed Release Oral Capsule [facility] ([facility]) pantoprazole sodium 20 mg tbec completed pantoprazole sodium 20 mg tbec [facility] ([facility]) clopidogrel 75 mg tabs completed clopidogrel 75 mg tabs [facility] ([facility]) fluticasone furoate 0.2 MG/ACTUAT Dry Po wder Inhaler Arnuity Ellipta 200 mcg/actuation powder for inhalation Arnuity Ellipta 200 mcg/actuation powder for inhalation completed flu ticasone furoate 0.2 MG/ACTUAT Dry Powder Inhaler [facility] ([facility]) Ranitidine 150 MG Oral Tablet ranitidine 150 mg tablet ranit idine 150 mg tablet completed Ranitidine 150 MG Oral Tablet [facility] ([facility]) Ranitidine 150 MG Oral Tablet ranitidine 150 mg tablet ranit idine 150 mg tablet completed ranitidine 150 MG Oral Tablet [facility] ([facility]) alprazolam 0.5 mg tabs completed alprazolam 0.5 mg tabs [facility] ([facility]) paroxetine hcl 30 mg tabs compl eted paroxetine hcl 30 mg tabs [facility] ([facility]) tizanidine 4 MG Oral Tablet tizanidine 4 mg tablet tizanidine 4 mg ta blet completed tizanidine 4 MG Oral Tablet [facility] ([facility]) Famotidine 40 MG Oral Tablet famotidine 40 mg tablet famotidine 40 mg tablet completed famotidine 40 MG Oral Tablet [facility] ([facility]) carisoprodol 350 mg tabs completed carisoprodol 350 mg tabs [facility] ([facility]) methylprednisolone 4 mg tablets in a dose pack [id number] completed methylprednisolone 4 mg tablets in a dose pack [facility] ([facility]) topiramate 100 mg tabs completed topiramate 100 mg tabs [facility] ([facility]) famotidine 40 mg tabs completed famotidine 40 mg tabs [facility] ([facility]) atorvastatin calcium 80 mg tabs completed atorvastatin calcium 80 mg tabs [facility] ([facility]) Carisoprodol 350 MG Oral Tablet carisopr odol 350 mg tablet Take 1 tablet 3 times a day by oral route as needed for 5 days. carisoprodol 350 mg tablet Take 1 tablet 3 times a day by oral route as needed for 5 days. 1 completed carisoprodol 350 MG Oral Tablet [facility] ( [facility]) methylprednisolone 4 mg tablets in a dose pack [id number] completed methylprednisolone 4 mg tablets in a dose pack POL[facility] ([facility]) Acetaminophen 325 MG / Hydrocodone Sony trate 5 MG Oral Tablet hydrocodone 5 mg- acetaminophen 325 mg tablet hydrocodone 5 mg-acetaminophen 325 mg tablet completed acetaminophen 325 MG / hydrocodone bitartrate 5 MG Oral Tablet [facility] ([facility]) Carisoprodol 350 MG Oral Tablet carisopr odol 350 mg tablet Take 1 tablet 3 times a day by oral route as needed for 5 days. carisoprodol 350 mg tablet Take 1 tablet 3 times a day by oral route as needed for 5 days. 1 completed carisoprodol 350 MG Oral Tablet [facility] ( [facility]) ezetimibe 10 mg tabs completed ezetimibe 10 mg tabs [facility] ([facility]) ipratropium/ tiff albuter completed ipratropium/ tiff albuter [facility] ([facility]) ipratropium/ tiff albuter completed ipratropium/ tiff albuter [facility] ([facility]) pantoprazole sodium 20 mg tbec completed pantoprazole sodium 20 mg tbec [facility] ([facility]) Ranitidine 150 MG Oral Tablet ranitidine 150 mg tablet ranit idine 150 mg tablet completed ranitidine 150 MG Oral Tablet [facility] ([facility]) Albuterol 0.833 MG/ML / Ipratropium Brom simin 0.167 MG/ML Inhalant Solution ipratropium 0.5 mg-albuterol 3 mg (2.5 mg base)/3 mL nebulization soln twice a day as needed ipratropium 0.5 mg-albuterol 3 mg (2.5 m g base)/3 mL nebulization soln twice a day as needed completed albuterol 0.833 MG/ML / ipratropium bromide 0.167 MG/ML Inhalation Solution POL[facility] ([facility]) Cyclobenzaprine hydrochloride 10 MG Oral Tablet cyclobenzaprine 10 mg tablet TAKE ONE TABLET BY MOUTH EVERY DAY AT BEDTIME cyclobenzaprine 10 mg tablet TAKE ONE TABLET BY MOUTH EVERY DAY AT BEDTIME completed cyclobenzaprine hydrochloride 10 MG Oral Tablet [facility] ([facility]) Phenazopyridine hydrochloride 200 MG Ora l Tablet phenazopyridine 200 mg tablet TAKE ONE TABLET BY MOUTH THREE TIMES A DAY AFTER MEALS phenazopyridine 200 mg tablet TAKE ONE TABLET BY MOUTH THREE TIMES A DAY AFTER MEALS completed phenazopyridine hydrochloride 20 0 MG Oral Tablet [facility] ([facility]) Albuterol 0.833 MG/ML / Ipratropium Brom simin 0.167 MG/ML Inhalant Solution ipratropium 0.5 mg-albuterol 3 mg (2.5 mg base)/3 mL nebulization soln twice a day as needed ipratropium 0.5 mg-albuterol 3 mg (2.5 m g base)/3 mL nebulization soln twice a day as needed completed albuterol 0.833 MG/ML / ipratropium bromide 0.167 MG/ML Inhalation Solution POL[facility] ([facility]) methylprednisolone dose pack 4 mg tbpk completed methylprednisolone dose pack 4 mg tbpk [facility] ([facility]) Nortriptyline 25 MG Oral Capsule nortrip tyline 25 mg capsule TAKE ONE CAPSULE BY MOUTH EVERY DAY nortriptyline 25 mg capsule TAKE ONE CAPSULE BY MOUTH EVERY DAY completed nortriptyline 25 MG Oral Capsule [facility] ([facility]) Trazodone Hydrochloride 50 MG Oral Tablet trazodone 50 mg tablet 1 tab daily trazodone 50 mg tablet 1 tab daily com pleted trazodone hydrochloride 50 MG Oral Tablet [facility] ([facility]) Prednisone 20 MG Oral Tablet prednisone 20 mg tablet prednisone 20 mg tablet completed prednisone 20 MG Oral Tablet [facility] ([facility]) Acetaminophen 325 MG / Hydrocodone Sony trate 5 MG Oral Tablet hydrocodone 5 mg- acetaminophen 325 mg tablet hydrocodone 5 mg-acetaminophen 325 mg tablet completed acetaminophen 325 MG / hydrocodone bitartrate 5 MG Oral Tablet [facility] ([facility]) Acetaminophen 325 MG / Hydrocodone Sony trate 5 MG Oral Tablet hydrocodone 5 mg- acetaminophen 325 mg tablet hydrocodone 5 mg-acetaminophen 325 mg tablet completed acetaminophen 325 MG / hydrocodone bitartrate 5 MG Oral Tablet [facility] ([facility]) tizanidine hydrochloride 4 mg tabs completed tizanidine hydrochloride 4 mg tabs [facility] ([facility]) lidocaine hcl jelly 2 % gel com pleted lidocaine hcl jelly 2 % gel [facility] ([facility]) Ranitidine 150 MG Oral Tablet ranitidine 150 mg tablet ranit idine 150 mg tablet completed ranitidine 150 MG Oral Tablet [facility] ([facility]) umeclidinium 0.0625 MG/ACTUAT / vilanter ol 0.025 MG/ACTUAT Dry Powder Inhaler Anoro Ellipta 62.5 mcg-25 mcg/actuation powder for inhalation Anoro Ellipta 62.5 mcg-25 mcg/actuation powder for inhalation completed umeclidinium 0.0625 MG/ACTUAT / vilanterol 0.025 MG/ACTUAT Dry Powder Inhaler [facility] ([facility]) tizanidine hydrochloride 4 mg tabs completed tizanidine hydrochloride 4 mg tabs [facility] ([facility]) Famotidine 40 MG Oral Tablet famotidine 40 mg tablet famotidine 40 mg tablet completed famotidine 40 MG Oral Tablet [facility] ([facility]) Alprazolam 0.5 MG Oral Tablet alprazolam 0.5 mg tablet TAKE ONE TABLET BY MOUTH TWICE A DAY NEEDED MAXIMUM DAILY DOSE TWO TABLETS alprazolam 0.5 mg tablet TAKE ONE TABLET BY MOUTH TWICE A DAY NEEDED MAXIMUM DAILY DOSE TWO TABLETS completed alprazolam 0.5 MG Oral Tablet [facility] ([facility]) Nortriptyline 25 MG Oral Capsule nortrip tyline 25 mg capsule TAKE ONE CAPSULE BY MOUTH EVERY DAY nortriptyline 25 mg capsule TAKE ONE CAPSULE BY MOUTH EVERY DAY completed nortriptyline 25 MG Oral Capsule [facility] ([facility]) pantoprazole 20 MG Delayed Release Oral Tablet pantoprazole 20 mg tablet,delayed release pantoprazole 20 mg tablet,delayed release completed pantoprazole 20 MG Delayed Release Oral Tablet [facility] ([facility]) doxycycline monohydrate 100 mg caps completed doxycycline monohydrate 100 mg caps [facility] ([facility]) methylprednisolone dose pack 4 mg tbpk completed methylprednisolone dose pack 4 mg tbpk [facility] ([facility]) gabapentin 300 mg caps completed gabapentin 300 mg caps [facility] ([facility]) methylprednisolone dose pack 4 mg tbpk completed methylprednisolone dose pack 4 mg tbpk [facility] ([facility]) methylprednisolone dose pack 4 mg tbpk completed methylprednisolone dose pack 4 mg tbpk [facility] ([facility]) clopidogrel 75 mg tabs completed clopidogrel 75 mg tabs [facility] ([facility]) tizanidine 4 MG Oral Tablet tizanidine 4 mg tablet tizanidine 4 mg ta blet completed tizanidine 4 MG Oral Tablet [facility] ([facility]) Sulfamethoxazole 800 MG / Trimethoprim 1 60 MG Oral Tablet sulfamethoxazole 800 mg-trimethoprim 160 mg tablet sulfamethoxazole 800 mg-trimethoprim 160 mg tablet completed sulfame thoxazole 800 MG / trimethoprim 160 MG Oral Tablet [facility] ([facility]) Sulfamethoxazole 800 MG / Trimethoprim 1 60 MG Oral Tablet sulfamethoxazole 800 mg-trimethoprim 160 mg tablet sulfamethoxazole 800 mg-trimethoprim 160 mg tablet completed sulfame thoxazole 800 MG / trimethoprim 160 MG Oral Tablet [facility] ([facility]) paroxetine hcl 30 mg tabs compl eted paroxetine hcl 30 mg tabs [facility] ([facility]) NITROFURANTOIN, MACROCRYSTALS 25 MG / Ni trofurantoin, Monohydrate 75 MG Oral Capsule nitrofurantoin monohydrate/macrocrystals 100 mg capsule nitrofurantoin monohydrate/macrocrystals 100 mg capsule completed nitrofurantoin, macrocrystals 25 MG / nitrofurantoin, monohydrate 75 MG Oral Capsule [facility] ([facility]) hydroco/apap tab 5-325mg completed hydroco/apap tab 5-325mg [facility] ([facility]) Acetaminophen 325 MG / Hydrocodone Sony trate 5 MG Oral Tablet hydrocodone 5 mg- acetaminophen 325 mg tablet hydrocodone 5 mg-acetaminophen 325 mg tablet completed acetaminophen 325 MG / hydrocodone bitartrate 5 MG Oral Tablet [facility] ([facility]) gabapentin 300 mg caps completed gabapentin 300 mg caps [facility] ([facility]) Lidocaine Hydrochloride 0.02 MG/MG Topical Gel lidocai ne HCl 2 % mucosal jelly lidocaine HCl 2 % mucosal jelly comple alyssa lidocaine hydrochloride 0.02 MG/MG Topical Gel [facility] ([facility]) carisoprodol 350 mg tabs completed carisoprodol 350 mg tabs [facility] ([facility]) Cyclobenzaprine hydrochloride 10 MG Oral Tablet cyclobenzaprine 10 mg tablet TAKE ONE TABLET BY MOUTH EVERY DAY AT BEDTIME cyclobenzaprine 10 mg tablet TAKE ONE TABLET BY MOUTH EVERY DAY AT BEDTIME completed cyclobenzaprine hydrochloride 10 MG Oral Tablet [facility] ([facility]) topiramate 100 mg tabs completed topiramate 100 mg tabs [facility] ([facility]) carisoprodol 350 mg tabs completed carisoprodol 350 mg tabs [facility] ([facility]) pantoprazole 20 MG Delayed Release Oral Tablet pantoprazole 20 mg tablet,delayed release pantoprazole 20 mg tablet,delayed release completed pantoprazole 20 MG Delayed Release Oral Tablet [facility] ([facility]) doxycycline monohydrate 100 mg caps completed doxycycline monohydrate 100 mg caps [facility] ([facility]) doxycycline monohydrate 100 mg caps completed doxycycline monohydrate 100 mg caps [facility] ([facility]) paroxetine hcl 30 mg tabs compl eted paroxetine hcl 30 mg tabs [facility] ([facility]) Trazodone Hydrochloride 50 MG Oral Tablet trazodone 50 mg tablet 1 tab daily trazodone 50 mg tablet 1 tab daily com pleted trazodone hydrochloride 50 MG Oral Tablet [facility] ([facility]) atorvastatin calcium 80 mg tabs completed atorvastatin calcium 80 mg tabs [facility] ([facility]) pantoprazole sodium 20 mg tbec completed pantoprazole sodium 20 mg tbec [facility] ([facility]) Lidocaine Hydrochloride 0.02 MG/MG Topical Gel lidocai ne HCl 2 % mucosal jelly lidocaine HCl 2 % mucosal jelly comple alyssa lidocaine hydrochloride 0.02 MG/MG Topical Gel [facility] ([facility]) Acetaminophen 325 MG / Hydrocodone Sony trate 5 MG Oral Tablet hydrocodone 5 mg- acetaminophen 325 mg tablet hydrocodone 5 mg-acetaminophen 325 mg tablet completed acetaminophen 325 MG / hydrocodone bitartrate 5 MG Oral Tablet [facility] ([facility]) Acetaminophen 325 MG / Hydrocodone Sony trate 5 MG Oral Tablet hydrocodone 5 mg- acetaminophen 325 mg tablet hydrocodone 5 mg-acetaminophen 325 mg tablet completed acetaminophen 325 MG / hydrocodone bitartrate 5 MG Oral Tablet [facility] ([facility]) methylprednisolone 4 mg tablets in a dose pack [id number] completed methylprednisolone 4 mg tablets in a dose pack [facility] ([facility]) lidocaine hcl jelly 2 % gel com pleted lidocaine hcl jelly 2 % gel [facility] ([facility]) tizanidine 4 MG Oral Tablet tizanidine 4 mg tablet tizanidine 4 mg ta blet completed tizanidine 4 MG Oral Tablet [facility] ([facility]) methylprednisolone 4 mg tablets in a dose pack [id number] completed methylprednisolone 4 mg tablets in a dose pack POL[facility] ([facility]) ipratropium/ tiff albuter completed ipratropium/ tiff albuter [facility] ([facility]) umeclidinium 0.0625 MG/ACTUAT / vilanter ol 0.025 MG/ACTUAT Dry Powder Inhaler Anoro Ellipta 62.5 mcg-25 mcg/actuation powder for inhalation INHALE ONE PUFF BY MOUTH EVERY DAY Anoro Ellipta 62.5 mcg-25 mcg/actuation powder for inhalation INHALE ONE PUFF BY MOUTH EVERY DAY com pleted umeclidinium 0.0625 MG/ACTUAT / vilanterol 0.025 MG/ACTUAT Dry Powder Inhaler [facility] ([facility]) ezetimibe 10 mg tabs completed ezetimibe 10 mg tabs [facility] ([facility]) Fluzone Quad [id number] (PF) 60 mcg (15 m cg x 4)/0.5 mL IM suspension INJECT DIRECTED [id number] completed 0.5 ML influenza A virus A/[facility]/[id number] (H1N1) antigen 0.03 MG/ML / influenza A virus A/[facility] (H3N2) antigen 0.03 MG/ML / influenza B virus B/[facility]/30704/2012 antigen 0.03 MG/ML / influenza B virus B/[place] antigen 0.03 MG/ML Injection [Fluzone Quadrivalent [id number]] POL[facility] ([facility]) Trazodone Hydrochloride 50 MG Oral Tablet trazodone 50 mg tablet 1 tab daily trazodone 50 mg tablet 1 tab daily com pleted trazodone hydrochloride 50 MG Oral Tablet [facility] ([facility]) hydroco/apap tab 5-325mg completed hydroco/apap tab 5-325mg [facility] ([facility]) Cyclobenzaprine hydrochloride 10 MG Oral Tablet cyclobenzaprine 10 mg tablet TAKE ONE TABLET BY MOUTH EVERY DAY AT BEDTIME cyclobenzaprine 10 mg tablet TAKE ONE TABLET BY MOUTH EVERY DAY AT BEDTIME completed cyclobenzaprine hydrochloride 10 MG Oral Tablet [facility] ([facility]) atorvastatin calcium 80 mg tabs completed atorvastatin calcium 80 mg tabs [facility] ([facility]) tizanidine 4 MG Oral Tablet tizanidine 4 mg tablet tizanidine 4 mg ta blet completed tizanidine 4 MG Oral Tablet [facility] ([facility]) paroxetine hcl 30 mg tabs compl eted paroxetine hcl 30 mg tabs [facility] ([facility]) pantoprazole sodium 20 mg tbec completed pantoprazole sodium 20 mg tbec [facility] ([facility]) hydroco/apap tab 5-325mg completed hydroco/apap tab 5-325mg [facility] ([facility]) topiramate 100 mg tabs completed topiramate 100 mg tabs [facility] ([facility]) Ranitidine 150 MG Oral Tablet ranitidine 150 mg tablet ranit idine 150 mg tablet completed ranitidine 150 MG Oral Tablet [facility] ([facility]) ezetimibe 10 mg tabs completed ezetimibe 10 mg tabs [facility] ([facility]) hydroco/apap tab 5-325mg completed hydroco/apap tab 5-325mg [facility] ([facility]) Ranitidine 150 MG Oral Tablet ranitidine 150 mg tablet ranit idine 150 mg tablet completed ranitidine 150 MG Oral Tablet [facility] ([facility]) Acetaminophen 325 MG / Hydrocodone Sony trate 5 MG Oral Tablet hydrocodone 5 mg- acetaminophen 325 mg tablet hydrocodone 5 mg-acetaminophen 325 mg tablet completed acetaminophen 325 MG / hydrocodone bitartrate 5 MG Oral Tablet [facility] ([facility]) Doxycycline Monohydrate 100 MG Oral Caps ule doxycycline monohydrate 100 mg capsule doxycycline monohydrate 100 mg capsule completed doxycycline monohydrate 100 MG Oral Capsule [facility] ([facility]) pantoprazole sodium 20 mg tbec completed pantoprazole sodium 20 mg tbec [facility] ([facility]) paroxetine hcl 30 mg tabs compl eted paroxetine hcl 30 mg tabs [facility] ([facility]) carisoprodol 350 mg tabs completed carisoprodol 350 mg tabs [facility] ([facility]) Alprazolam 0.5 MG Oral Tablet alprazolam 0.5 mg tablet TAKE ONE TABLET BY MOUTH TWICE A DAY NEEDED MAXIMUM DAILY DOSE TWO TABLETS alprazolam 0.5 mg tablet TAKE ONE TABLET BY MOUTH TWICE A DAY NEEDED MAXIMUM DAILY DOSE TWO TABLETS completed alprazolam 0.5 MG Oral Tablet [facility] ([facility]) Trazodone Hydrochloride 50 MG Oral Tablet trazodone 50 mg tablet 1 tab daily trazodone 50 mg tablet 1 tab daily com pleted trazodone hydrochloride 50 MG Oral Tablet [facility] ([facility]) gabapentin 300 MG Oral Capsule gabapentin 300 mg capsu le gabapentin 300 mg capsule completed gabapentin 300 MG Oral Capsule [facility] ([facility]) Trazodone Hydrochloride 50 MG Oral Tablet trazodone 50 mg tablet 1 tab daily trazodone 50 mg tablet 1 tab daily com pleted trazodone hydrochloride 50 MG Oral Tablet [facility] ([facility]) gabapentin 400 mg caps completed gabapentin 400 mg caps [facility] ([facility]) fluticasone furoate 0.2 MG/ACTUAT Dry Po wder Inhaler Arnuity Ellipta 200 mcg/actuation powder for inhalation Arnuity Ellipta 200 mcg/actuation powder for inhalation completed flu ticasone furoate 0.2 MG/ACTUAT Dry Powder Inhaler [facility] ([facility]) ezetimibe 10 mg tabs completed ezetimibe 10 mg tabs [facility] ([facility]) tizanidine 4 MG Oral Tablet tizanidine 4 mg tablet tizanidine 4 mg ta blet completed tizanidine 4 MG Oral Tablet [facility] ([facility]) Ranitidine 150 MG Oral Tablet ranitidine 150 mg tablet ranit idine 150 mg tablet completed ranitidine 150 MG Oral Tablet [facility] ([facility]) famotidine 40 mg tabs completed famotidine 40 mg tabs [facility] ([facility]) carisoprodol 350 mg tabs completed carisoprodol 350 mg tabs [facility] ([facility]) hydroco/apap tab 5-325mg completed hydroco/apap tab 5-325mg [facility] ([facility]) atorvastatin calcium 80 mg tabs completed atorvastatin calcium 80 mg tabs [facility] ([facility]) pantoprazole 20 MG Delayed Release Oral Tablet pantoprazole 20 mg tablet,delayed release pantoprazole 20 mg tablet,delayed release completed pantoprazole 20 MG Delayed Release Oral Tablet [facility] ([facility]) hydroco/apap tab 5-325mg completed hydroco/apap tab 5-325mg [facility] ([facility]) Trazodone Hydrochloride 50 MG Oral Tablet trazodone 50 mg tablet 1 tab daily trazodone 50 mg tablet 1 tab daily com pleted trazodone hydrochloride 50 MG Oral Tablet [facility] ([facility]) paroxetine hcl 30 mg tabs compl eted paroxetine hcl 30 mg tabs [facility] ([facility]) umeclidinium 0.0625 MG/ACTUAT / vilanter ol 0.025 MG/ACTUAT Dry Powder Inhaler Anoro Ellipta 62.5 mcg-25 mcg/actuation powder for inhalation INHALE ONE PUFF BY MOUTH EVERY DAY Anoro Ellipta 62.5 mcg-25 mcg/actuation powder for inhalation INHALE ONE PUFF BY MOUTH EVERY DAY com pleted umeclidinium 0.0625 MG/ACTUAT / vilanterol 0.025 MG/ACTUAT Dry Powder Inhaler [facility] ([facility]) carisoprodol 350 mg tabs completed carisoprodol 350 mg tabs [facility] ([facility]) lidocaine hcl jelly 2 % gel com pleted lidocaine hcl jelly 2 % gel [facility] ([facility]) Prednisone 20 MG Oral Tablet prednisone 20 mg tablet prednisone 20 mg tablet completed prednisone 20 MG Oral Tablet [facility] ([facility]) pantoprazole 20 MG Delayed Release Oral Tablet pantoprazole 20 mg tablet,delayed release pantoprazole 20 mg tablet,delayed release completed pantoprazole 20 MG Delayed Release Oral Tablet [facility] ([facility]) umeclidinium 0.0625 MG/ACTUAT / vilanter ol 0.025 MG/ACTUAT Dry Powder Inhaler Anoro Ellipta 62.5 mcg-25 mcg/actuation powder for inhalation INHALE ONE PUFF BY MOUTH EVERY DAY Anoro Ellipta 62.5 mcg-25 mcg/actuation powder for inhalation INHALE ONE PUFF BY MOUTH EVERY DAY com pleted umeclidinium 0.0625 MG/ACTUAT / vilanterol 0.025 MG/ACTUAT Dry Powder Inhaler [facility] ([facility]) topiramate 100 mg tabs completed topiramate 100 mg tabs [facility] ([facility]) prednisone 20 mg tabs completed prednisone 20 mg tabs [facility] ([facility]) ipratropium/ tiff albuter completed ipratropium/ tiff albuter [facility] ([facility]) methylprednisolone dose pack 4 mg tbpk completed methylprednisolone dose pack 4 mg tbpk [facility] ([facility]) gabapentin 300 mg caps completed gabapentin 300 mg caps [facility] ([facility]) Omeprazole 20 MG Delayed Release Oral Ca psule omeprazole 20 mg capsule,delayed release TAKE ONE CAPSULE BY MOUTH EVERY DAY 30 MINUTES BEFORE MORNING MEAL NEEDED omeprazole 20 mg capsule,delayed release TAKE ONE CAPSULE BY MOUTH EVERY DAY 30 MINUTES BEFORE MORNING MEAL NEEDED completed omeprazole 20 MG Delayed Release Oral Capsule [facility] ([facility]) Ranitidine 150 MG Oral Tablet ranitidine 150 mg tablet ranit idine 150 mg tablet completed ranitidine 150 MG Oral Tablet [facility] ([facility]) Lidocaine Hydrochloride 0.02 MG/MG Topical Gel lidocai ne HCl 2 % mucosal jelly lidocaine HCl 2 % mucosal jelly comple alyssa lidocaine hydrochloride 0.02 MG/MG Topical Gel [facility] ([facility]) ipratropium/ tiff albuter completed ipratropium/ tiff albuter [facility] ([facility]) methylprednisolone 4 mg tablets in a dose pack [id number] completed methylprednisolone 4 mg tablets in a dose pack POL[facility] ([facility]) Omeprazole 20 MG Delayed Release Oral Ca psule omeprazole 20 mg capsule,delayed release TAKE ONE CAPSULE BY MOUTH EVERY DAY 30 MINUTES BEFORE MORNING MEAL NEEDED omeprazole 20 mg capsule,delayed release TAKE ONE CAPSULE BY MOUTH EVERY DAY 30 MINUTES BEFORE MORNING MEAL NEEDED completed omeprazole 20 MG Delayed Release Oral Capsule [facility] ([facility]) paroxetine hcl 30 mg tabs compl eted paroxetine hcl 30 mg tabs [facility] ([facility]) gabapentin 100 MG Oral Capsule gabapentin 100 mg capsu le gabapentin 100 mg capsule completed gabapentin 100 MG Oral Capsule [facility] ([facility]) clopidogrel 75 mg tabs completed clopidogrel 75 mg tabs [facility] ([facility]) Albuterol 0.833 MG/ML / Ipratropium Brom simin 0.167 MG/ML Inhalant Solution ipratropium 0.5 mg-albuterol 3 mg (2.5 mg base)/3 mL nebulization soln twice a day as needed ipratropium 0.5 mg-albuterol 3 mg (2.5 m g base)/3 mL nebulization soln twice a day as needed completed albuterol 0.833 MG/ML / ipratropium bromide 0.167 MG/ML Inhalation Solution [facility] ([facility]) paroxetine hcl 30 mg tabs compl eted paroxetine hcl 30 mg tabs [facility] ([facility]) methylprednisolone dose pack 4 mg tbpk completed methylprednisolone dose pack 4 mg tbpk POL[facility] ([facility]) lidocaine hcl jelly 2 % gel com pleted lidocaine hcl jelly 2 % gel [facility] ([facility]) fluticasone furoate 0.2 MG/ACTUAT Dry Po wder Inhaler Arnuity Ellipta 200 mcg/actuation powder for inhalation Arnuity Ellipta 200 mcg/actuation powder for inhalation completed flu ticasone furoate 0.2 MG/ACTUAT Dry Powder Inhaler [facility] ([facility]) methylprednisolone dose pack 4 mg tbpk completed methylprednisolone dose pack 4 mg tbpk [facility] ([facility]) ipratropium/ tiff albuter completed ipratropium/ tiff albuter [facility] ([facility]) gabapentin 400 mg caps completed gabapentin 400 mg caps [facility] ([facility]) NITROFURANTOIN, MACROCRYSTALS 25 MG / Ni trofurantoin, Monohydrate 75 MG Oral Capsule nitrofurantoin monohydrate/macrocrystals 100 mg capsule nitrofurantoin monohydrate/macrocrystals 100 mg capsule completed nitrofurantoin, macrocrystals 25 MG / nitrofurantoin, monohydrate 75 MG Oral Capsule WAGGONER ([facility]) gabapentin 400 mg caps completed gabapentin 400 mg caps [facility] ([facility]) Carisoprodol 350 MG Oral Tablet carisopr odol 350 mg tablet Take 1 tablet 3 times a day by oral route as needed for 5 days. carisoprodol 350 mg tablet Take 1 tablet 3 times a day by oral route as needed for 5 days. 1 completed carisoprodol 350 MG Oral Tablet [facility]AGG[place]ER ( [facility]) pantoprazole 20 MG Delayed Release Oral Tablet pantoprazole 20 mg tablet,delayed release pantoprazole 20 mg tablet,delayed release completed pantoprazole 20 MG Delayed Release Oral Tablet [facility] ([facility]) topiramate 100 mg tabs completed topiramate 100 mg tabs [facility] ([facility]) Alprazolam 0.5 MG Oral Tablet alprazolam 0.5 mg tablet TAKE ONE TABLET BY MOUTH TWICE A DAY NEEDED MAXIMUM DAILY DOSE TWO TABLETS alprazolam 0.5 mg tablet TAKE ONE TABLET BY MOUTH TWICE A DAY NEEDED MAXIMUM DAILY DOSE TWO TABLETS completed alprazolam 0.5 MG Oral Tablet [place] ([facility]) lidocaine hcl jelly 2 % gel com pleted lidocaine hcl jelly 2 % gel [facility] ([facility]) fluticasone furoate 0.2 MG/ACTUAT Dry Po wder Inhaler Arnuity Ellipta 200 mcg/actuation powder for inhalation Arnuity Ellipta 200 mcg/actuation powder for inhalation completed flu ticasone furoate 0.2 MG/ACTUAT Dry Powder Inhaler [facility] ([facility]) omeprazole 20 mg cpdr completed omeprazole 20 mg cpdr [place]AG[place] ([facility]) lidocaine hcl jelly 2 % gel com pleted lidocaine hcl jelly 2 % gel [facility] ([facility]) clopidogrel 75 mg tabs completed clopidogrel 75 mg tabs [facility] ([facility]) Ranitidine 150 MG Oral Tablet ranitidine 150 mg tablet ranit idine 150 mg tablet completed ranitidine 150 MG Oral Tablet [facility] ([facility]) tizanidine hydrochloride 4 mg tabs completed tizanidine hydrochloride 4 mg tabs [facility] ([facility]) methylprednisolone dose pack 4 mg tbpk completed methylprednisolone dose pack 4 mg tbpk [facility] ([facility]) fluticasone furoate 0.2 MG/ACTUAT Dry Po wder Inhaler Arnuity Ellipta 200 mcg/actuation powder for inhalation Arnuity Ellipta 200 mcg/actuation powder for inhalation completed flu ticasone furoate 0.2 MG/ACTUAT Dry Powder Inhaler [facility] ([facility]) ezetimibe 10 mg tabs completed ezetimibe 10 mg tabs [facility] ([facility]) methylprednisolone dose pack 4 mg tbpk completed methylprednisolone dose pack 4 mg tbpk [facility] ([facility]) ipratropium/ tiff albuter completed ipratropium/ tiff albuter [facility] ([facility]) lidocaine 5 % topical patch [id number] com pleted lidocaine 0.05 MG/MG Medicated Patch [facility] ([facility]) umeclidinium 0.0625 MG/ACTUAT / vilanter ol 0.025 MG/ACTUAT Dry Powder Inhaler Anoro Ellipta 62.5 mcg-25 mcg/actuation powder for inhalation INHALE ONE PUFF BY MOUTH EVERY DAY Anoro Ellipta 62.5 mcg-25 mcg/actuation powder for inhalation INHALE ONE PUFF BY MOUTH EVERY DAY com pleted umeclidinium 0.0625 MG/ACTUAT / vilanterol 0.025 MG/ACTUAT Dry Powder Inhaler [facility] ([facility]) Acetaminophen 325 MG / Hydrocodone Sony trate 5 MG Oral Tablet hydrocodone 5 mg- acetaminophen 325 mg tablet hydrocodone 5 mg-acetaminophen 325 mg tablet completed acetaminophen 325 MG / hydrocodone bitartrate 5 MG Oral Tablet [facility] ([facility]) tizanidine hydrochloride 4 mg tabs completed tizanidine hydrochloride 4 mg tabs [facility] ([facility]) gabapentin 300 mg caps completed gabapentin 300 mg caps [facility] ([facility]) atorvastatin calcium 80 mg tabs completed atorvastatin calcium 80 mg tabs [facility] ([facility]) Prednisone 20 MG Oral Tablet prednisone 20 mg tablet prednisone 20 mg tablet completed prednisone 20 MG Oral Tablet [facility] ([facility]) Ranitidine 150 MG Oral Tablet ranitidine 150 mg tablet ranit idine 150 mg tablet completed ranitidine 150 MG Oral Tablet [facility] ([facility]) Carisoprodol 350 MG Oral Tablet carisopr odol 350 mg tablet Take 1 tablet 3 times a day by oral route as needed for 5 days. carisoprodol 350 mg tablet Take 1 tablet 3 times a day by oral route as needed for 5 days. 1 completed carisoprodol 350 MG Oral Tablet [facility] ( [facility]) pantoprazole sodium 20 mg tbec completed pantoprazole sodium 20 mg tbec [facility] ([facility]) Phenazopyridine hydrochloride 200 MG Ora l Tablet phenazopyridine 200 mg tablet TAKE ONE TABLET BY MOUTH THREE TIMES A DAY AFTER MEALS phenazopyridine 200 mg tablet TAKE ONE TABLET BY MOUTH THREE TIMES A DAY AFTER MEALS completed phenazopyridine hydrochloride 20 0 MG Oral Tablet [facility] ([facility]) Doxycycline Monohydrate 100 MG Oral Caps ule doxycycline monohydrate 100 mg capsule doxycycline monohydrate 100 mg capsule completed Doxycycline Monohydrate 100 MG Oral Capsule [facility] ([facility]) Trazodone Hydrochloride 50 MG Oral Tablet trazodone 50 mg tablet 1 tab daily trazodone 50 mg tablet 1 tab daily com pleted trazodone hydrochloride 50 MG Oral Tablet [facility] ([facility]) ezetimibe 10 mg tabs completed ezetimibe 10 mg tabs [facility] ([facility]) Acetaminophen 325 MG / Hydrocodone Sony trate 5 MG Oral Tablet hydrocodone 5 mg- acetaminophen 325 mg tablet hydrocodone 5 mg-acetaminophen 325 mg tablet completed acetaminophen 325 MG / hydrocodone bitartrate 5 MG Oral Tablet [facility] ([facility]) gabapentin 300 MG Oral Capsule gabapentin 300 mg capsu le gabapentin 300 mg capsule completed gabapentin 300 MG Oral Capsule [facility] ([facility]) methylprednisolone dose pack 4 mg tbpk completed methylprednisolone dose pack 4 mg tbpk [facility] ([facility]) famotidine 40 mg tabs completed famotidine 40 mg tabs [facility] ([facility]) pantoprazole sodium 20 mg tbec completed pantoprazole sodium 20 mg tbec [facility] ([facility]) prednisone 20 mg tabs completed prednisone 20 mg tabs [facility] ([facility]) carisoprodol 350 mg tabs completed carisoprodol 350 mg tabs [facility] ([facility]) Alprazolam 0.5 MG Oral Tablet alprazolam 0.5 mg tablet TAKE ONE TABLET BY MOUTH TWICE A DAY NEEDED MAXIMUM DAILY DOSE TWO TABLETS alprazolam 0.5 mg tablet TAKE ONE TABLET BY MOUTH TWICE A DAY NEEDED MAXIMUM DAILY DOSE TWO TABLETS completed alprazolam 0.5 MG Oral Tablet [facility] ([facility]) umeclidinium 0.0625 MG/ACTUAT / vilanter ol 0.025 MG/ACTUAT Dry Powder Inhaler Anoro Ellipta 62.5 mcg-25 mcg/actuation powder for inhalation INHALE ONE PUFF BY MOUTH EVERY DAY Anoro Ellipta 62.5 mcg-25 mcg/actuation powder for inhalation INHALE ONE PUFF BY MOUTH EVERY DAY com pleted umeclidinium 0.0625 MG/ACTUAT / vilanterol 0.025 MG/ACTUAT Dry Powder Inhaler [facility] ([facility]) clopidogrel 75 mg tabs completed clopidogrel 75 mg tabs [facility] ([facility]) alprazolam 0.5 mg tabs completed alprazolam 0.5 mg tabs [facility] ([facility]) gabapentin 100 MG Oral Capsule gabapentin 100 mg capsu le gabapentin 100 mg capsule completed gabapentin 100 MG Oral Capsule POL[facility] ([facility]) Acetaminophen 325 MG / Hydrocodone Sony trate 5 MG Oral Tablet hydrocodone 5 mg- acetaminophen 325 mg tablet hydrocodone 5 mg-acetaminophen 325 mg tablet completed acetaminophen 325 MG / hydrocodone bitartrate 5 MG Oral Tablet [facility] ([facility]) gabapentin 300 mg caps completed gabapentin 300 mg caps [facility] ([facility]) clopidogrel 75 mg tabs completed clopidogrel 75 mg tabs [facility] ([facility]) Nortriptyline 25 MG Oral Capsule nortrip tyline 25 mg capsule TAKE ONE CAPSULE BY MOUTH EVERY DAY nortriptyline 25 mg capsule TAKE ONE CAPSULE BY MOUTH EVERY DAY completed nortriptyline 25 MG Oral Capsule [facility] ([facility]) paroxetine hcl 30 mg tabs compl eted paroxetine hcl 30 mg tabs [facility] ([facility]) famotidine 40 mg tabs completed famotidine 40 mg tabs [facility] ([facility]) alprazolam 0.5 mg tabs completed alprazolam 0.5 mg tabs [facility] ([facility]) Omeprazole 20 MG Delayed Release Oral Ca psule omeprazole 20 mg capsule,delayed release TAKE ONE CAPSULE BY MOUTH EVERY DAY 30 MINUTES BEFORE MORNING MEAL NEEDED omeprazole 20 mg capsule,delayed release TAKE ONE CAPSULE BY MOUTH EVERY DAY 30 MINUTES BEFORE MORNING MEAL NEEDED completed omeprazole 20 MG Delayed Release Oral Capsule [facility] ([facility]) paroxetine hcl 30 mg tabs compl eted paroxetine hcl 30 mg tabs [facility] ([facility]) Sulfamethoxazole 800 MG / Trimethoprim 1 60 MG Oral Tablet sulfamethoxazole 800 mg-trimethoprim 160 mg tablet sulfamethoxazole 800 mg-trimethoprim 160 mg tablet completed sulfame thoxazole 800 MG / trimethoprim 160 MG Oral Tablet [facility] ([facility]) Famotidine 40 MG Oral Tablet famotidine 40 mg tablet famotidine 40 mg tablet completed famotidine 40 MG Oral Tablet [facility] ([facility]) Baclofen 10 MG Oral Tablet baclofen 10 mg tablet baclofen 10 mg tablet completed Baclofen 10 MG Oral Table t [facility] ([facility]) Sulfamethoxazole 800 MG / Trimethoprim 1 60 MG Oral Tablet sulfamethoxazole 800 mg-trimethoprim 160 mg tablet sulfamethoxazole 800 mg-trimethoprim 160 mg tablet completed sulfame thoxazole 800 MG / trimethoprim 160 MG Oral Tablet [facility] ([facility]) gabapentin 300 mg caps completed gabapentin 300 mg caps [facility] ([facility]) Nortriptyline 25 MG Oral Capsule nortrip tyline 25 mg capsule TAKE ONE CAPSULE BY MOUTH EVERY DAY nortriptyline 25 mg capsule TAKE ONE CAPSULE BY MOUTH EVERY DAY completed nortriptyline 25 MG Oral Capsule [facility] ([facility]) ezetimibe 10 mg tabs completed ezetimibe 10 mg tabs [facility] ([facility]) ezetimibe 10 mg tabs completed ezetimibe 10 mg tabs [facility] ([facility]) prednisone 20 mg tabs completed prednisone 20 mg tabs [facility] ([facility]) omeprazole 20 mg cpdr completed omeprazole 20 mg cpdr [facility] ([facility]) methylprednisolone dose pack 4 mg tbpk completed methylprednisolone dose pack 4 mg tbpk [facility] ([facility]) hydroco/apap tab 5-325mg completed hydroco/apap tab 5-325mg [facility] ([facility]) NITROFURANTOIN, MACROCRYSTALS 25 MG / Ni trofurantoin, Monohydrate 75 MG Oral Capsule nitrofurantoin monohydrate/macrocrystals 100 mg capsule nitrofurantoin monohydrate/macrocrystals 100 mg capsule completed nitrofurantoin, macrocrystals 25 MG / nitrofurantoin, monohydrate 75 MG Oral Capsule [facility] ([facility]) ipratropium/ tiff albuter completed ipratropium/ tiff albuter [facility] ([facility]) Ranitidine 150 MG Oral Tablet ranitidine 150 mg tablet ranit idine 150 mg tablet completed ranitidine 150 MG Oral Tablet [facility] ([facility]) famotidine 40 mg tabs completed famotidine 40 mg tabs [facility] ([facility]) tizanidine hydrochloride 4 mg tabs completed tizanidine hydrochloride 4 mg tabs [facility] ([facility]) NITROFURANTOIN, MACROCRYSTALS 25 MG / Ni trofurantoin, Monohydrate 75 MG Oral Capsule nitrofurantoin monohydrate/macrocrystals 100 mg capsule nitrofurantoin monohydrate/macrocrystals 100 mg capsule completed nitrofurantoin, macrocrystals 25 MG / nitrofurantoin, monohydrate 75 MG Oral Capsule [facility] ([facility]) Prednisone 20 MG Oral Tablet prednisone 20 mg tablet prednisone 20 mg tablet completed Prednisone 20 MG Oral Tablet [facility] ([facility]) tizanidine hydrochloride 4 mg tabs completed tizanidine hydrochloride 4 mg tabs [facility] ([facility]) pantoprazole sodium 20 mg tbec completed pantoprazole sodium 20 mg tbec [facility] ([facility]) famotidine 40 mg tabs completed famotidine 40 mg tabs [facility] ([facility]) doxycycline monohydrate 100 mg caps completed doxycycline monohydrate 100 mg caps [facility] ([facility]) Prednisone 20 MG Oral Tablet prednisone 20 mg tablet prednisone 20 mg tablet completed prednisone 20 MG Oral Tablet [facility] ([facility]) gabapentin 400 mg caps completed gabapentin 400 mg caps [facility] ([facility]) gabapentin 300 mg caps completed gabapentin 300 mg caps [facility] ([facility]) atorvastatin calcium 80 mg tabs completed atorvastatin calcium 80 mg tabs [facility] ([facility]) alprazolam 0.5 mg tabs completed alprazolam 0.5 mg tabs [facility] ([facility]) Acetaminophen 325 MG / Hydrocodone Sony trate 5 MG Oral Tablet hydrocodone 5 mg- acetaminophen 325 mg tablet hydrocodone 5 mg-acetaminophen 325 mg tablet completed acetaminophen 325 MG / hydrocodone bitartrate 5 MG Oral Tablet [facility] ([facility]) ipratropium/ tiff albuter completed ipratropium/ tiff albuter [facility] ([facility]) Nortriptyline 25 MG Oral Capsule nortrip tyline 25 mg capsule TAKE ONE CAPSULE BY MOUTH EVERY DAY nortriptyline 25 mg capsule TAKE ONE CAPSULE BY MOUTH EVERY DAY completed nortriptyline 25 MG Oral Capsule [facility] ([facility]) Nortriptyline 25 MG Oral Capsule nortrip tyline 25 mg capsule TAKE ONE CAPSULE BY MOUTH EVERY DAY nortriptyline 25 mg capsule TAKE ONE CAPSULE BY MOUTH EVERY DAY completed nortriptyline 25 MG Oral Capsule [facility] ([facility]) Prednisone 20 MG Oral Tablet prednisone 20 mg tablet prednisone 20 mg tablet completed prednisone 20 MG Oral Tablet [facility] ([facility]) omeprazole 20 mg cpdr completed omeprazole 20 mg cpdr [facility] ([facility]) Prednisone 20 MG Oral Tablet prednisone 20 mg tablet prednisone 20 mg tablet completed prednisone 20 MG Oral Tablet [facility] ([facility]) omeprazole 20 mg cpdr completed omeprazole 20 mg cpdr [facility] ([facility]) Phenazopyridine hydrochloride 200 MG Ora l Tablet phenazopyridine 200 mg tablet TAKE ONE TABLET BY MOUTH THREE TIMES A DAY AFTER MEALS phenazopyridine 200 mg tablet TAKE ONE TABLET BY MOUTH THREE TIMES A DAY AFTER MEALS completed phenazopyridine hydrochloride 20 0 MG Oral Tablet [facility] ([facility]) gabapentin 300 MG Oral Capsule gabapentin 300 mg capsu le gabapentin 300 mg capsule completed gabapentin 300 MG Oral Capsule [facility] ([facility]) lidocaine 5 % topical patch [id number] com pleted lidocaine 0.05 MG/MG Medicated Patch [facility] ([facility]) Ranitidine 150 MG Oral Tablet ranitidine 150 mg tablet ranit idine 150 mg tablet completed ranitidine 150 MG Oral Tablet [facility] ([facility]) hydroco/apap tab 5-325mg completed hydroco/apap tab 5-325mg [facility] ([facility]) Trazodone Hydrochloride 50 MG Oral Tablet trazodone 50 mg tablet 1 tab daily trazodone 50 mg tablet 1 tab daily com pleted trazodone hydrochloride 50 MG Oral Tablet [facility] ([facility]) gabapentin 300 mg caps completed gabapentin 300 mg caps [facility] ([facility]) famotidine 40 mg tabs completed famotidine 40 mg tabs [facility] ([facility]) Albuterol 0.833 MG/ML / Ipratropium Brom simin 0.167 MG/ML Inhalant Solution ipratropium 0.5 mg-albuterol 3 mg (2.5 mg base)/3 mL nebulization soln twice a day as needed ipratropium 0.5 mg-albuterol 3 mg (2.5 m g base)/3 mL nebulization soln twice a day as needed completed albuterol 0.833 MG/ML / ipratropium bromide 0.167 MG/ML Inhalation Solution [facility] ([facility]) prednisone 20 mg tabs completed prednisone 20 mg tabs [facility] ([facility]) gabapentin 300 mg caps completed gabapentin 300 mg caps [facility] ([facility]) gabapentin 400 mg caps completed gabapentin 400 mg caps [facility] ([facility]) Prednisone 20 MG Oral Tablet prednisone 20 mg tablet prednisone 20 mg tablet completed prednisone 20 MG Oral Tablet [facility] ([facility]) omeprazole 20 mg cpdr completed omeprazole 20 mg cpdr [facility] ([facility]) Phenazopyridine hydrochloride 200 MG Ora l Tablet phenazopyridine 200 mg tablet TAKE ONE TABLET BY MOUTH THREE TIMES A DAY AFTER MEALS phenazopyridine 200 mg tablet TAKE ONE TABLET BY MOUTH THREE TIMES A DAY AFTER MEALS completed phenazopyridine hydrochloride 20 0 MG Oral Tablet PLOO ([facility]) pantoprazole sodium 20 mg tbec completed pantoprazole sodium 20 mg tbec [facility] ([facility]) atorvastatin calcium 80 mg tabs completed atorvastatin calcium 80 mg tabs [facility] ([facility]) Ranitidine 150 MG Oral Tablet ranitidine 150 mg tablet ranit idine 150 mg tablet completed ranitidine 150 MG Oral Tablet [facility] ([facility]) Phenazopyridine hydrochloride 200 MG Ora l Tablet phenazopyridine 200 mg tablet TAKE ONE TABLET BY MOUTH THREE TIMES A DAY AFTER MEALS phenazopyridine 200 mg tablet TAKE ONE TABLET BY MOUTH THREE TIMES A DAY AFTER MEALS completed phenazopyridine hydrochloride 20 0 MG Oral Tablet [facility] ([facility]) Doxycycline Monohydrate 100 MG Oral Caps ule doxycycline monohydrate 100 mg capsule doxycycline monohydrate 100 mg capsule completed doxycycline monohydrate 100 MG Oral Capsule [facility] ([facility]) Doxycycline Monohydrate 100 MG Oral Caps ule doxycycline monohydrate 100 mg capsule doxycycline monohydrate 100 mg capsule completed doxycycline monohydrate 100 MG Oral Capsule [facility] ([facility]) Doxycycline Monohydrate 100 MG Oral Caps ule doxycycline monohydrate 100 mg capsule doxycycline monohydrate 100 mg capsule completed doxycycline monohydrate 100 MG Oral Capsule [facility] ([facility]) lidocaine hcl jelly 2 % gel com pleted lidocaine hcl jelly 2 % gel [facility] ([facility]) lidocaine hcl jelly 2 % gel com pleted lidocaine hcl jelly 2 % gel [facility] ([facility]) tizanidine hydrochloride 4 mg tabs completed tizanidine hydrochloride 4 mg tabs POL[facility] ([facility]) Nortriptyline 25 MG Oral Capsule nortrip tyline 25 mg capsule TAKE ONE CAPSULE BY MOUTH EVERY DAY nortriptyline 25 mg capsule TAKE ONE CAPSULE BY MOUTH EVERY DAY completed nortriptyline 25 MG Oral Capsule [facility] ([facility]) atorvastatin calcium 80 mg tabs completed atorvastatin calcium 80 mg tabs [facility] ([facility]) famotidine 40 mg tabs completed famotidine 40 mg tabs [facility] ([facility]) Ranitidine 150 MG Oral Tablet ranitidine 150 mg tablet ranit idine 150 mg tablet completed ranitidine 150 MG Oral Tablet [facility] ([facility]) alprazolam 0.5 mg tabs completed alprazolam 0.5 mg tabs [facility] ([facility]) Ranitidine 150 MG Oral Tablet ranitidine 150 mg tablet ranit idine 150 mg tablet completed ranitidine 150 MG Oral Tablet [facility] ([facility]) alprazolam 0.5 mg tabs completed alprazolam 0.5 mg tabs [facility] ([facility]) Nortriptyline 25 MG Oral Capsule nortrip tyline 25 mg capsule TAKE ONE CAPSULE BY MOUTH EVERY DAY nortriptyline 25 mg capsule TAKE ONE CAPSULE BY MOUTH EVERY DAY completed nortriptyline 25 MG Oral Capsule POL[facility] ([facility]) Trazodone Hydrochloride 50 MG Oral Tablet trazodone 50 mg tablet 1 tab daily trazodone 50 mg tablet 1 tab daily com pleted trazodone hydrochloride 50 MG Oral Tablet [facility] ([facility]) Baclofen 10 MG Oral Tablet baclofen 10 mg tablet baclofen 10 mg tablet completed baclofen 10 MG Oral Table t [facility] ([facility]) Lidocaine Hydrochloride 0.02 MG/MG Topical Gel lidocai ne HCl 2 % mucosal jelly lidocaine HCl 2 % mucosal jelly comple alyssa lidocaine hydrochloride 0.02 MG/MG Topical Gel [facility] ([facility]) ezetimibe 10 mg tabs completed ezetimibe 10 mg tabs [facility] ([facility]) lidocaine 5 % topical patch [id number] com pleted lidocaine 0.05 MG/MG Medicated Patch [facility] ([facility]) Omeprazole 20 MG Delayed Release Oral Ca psule omeprazole 20 mg capsule,delayed release TAKE ONE CAPSULE BY MOUTH EVERY DAY 30 MINUTES BEFORE MORNING MEAL NEEDED omeprazole 20 mg capsule,delayed release TAKE ONE CAPSULE BY MOUTH EVERY DAY 30 MINUTES BEFORE MORNING MEAL NEEDED completed omeprazole 20 MG Delayed Release Oral Capsule [facility] ([facility]) clopidogrel 75 mg tabs completed clopidogrel 75 mg tabs POLO ([facility] [facility]) Lidocaine Hydrochloride 0.02 MG/MG Topical Gel lidocai ne HCl 2 % mucosal jelly lidocaine HCl 2 % mucosal jelly comple alyssa lidocaine hydrochloride 0.02 MG/MG Topical Gel POLO ([facility]) Sulfamethoxazole 800 MG / Trimethoprim 1 60 MG Oral Tablet sulfamethoxazole 800 mg-trimethoprim 160 mg tablet sulfamethoxazole 800 mg-trimethoprim 160 mg tablet completed sulfame thoxazole 800 MG / trimethoprim 160 MG Oral Tablet POLO ([facility]) doxycycline monohydrate 100 mg caps completed doxycycline monohydrate 100 mg caps POLO ([facility]) ipratropium/ tiff albuter completed ipratropium/ tiff albuter POLO ([facility]) Carisoprodol 350 MG Oral Tablet carisopr odol 350 mg tablet Take 1 tablet 3 times a day by oral route as needed for 5 days. carisoprodol 350 mg tablet Take 1 tablet 3 times a day by oral route as needed for 5 days. 1 completed carisoprodol 350 MG Oral Tablet POLO ( [facility]) gabapentin 400 mg caps completed gabapentin 400 mg caps POLO ([facility]) lidocaine 5 % topical patch [id number] com pleted lidocaine 0.05 MG/MG Medicated Patch POLO ([facility]) fluticasone furoate 0.2 MG/ACTUAT Dry Po wder Inhaler Arnuity Ellipta 200 mcg/actuation powder for inhalation Arnuity Ellipta 200 mcg/actuation powder for inhalation completed flu ticasone furoate 0.2 MG/ACTUAT Dry Powder Inhaler POLO ([facility]) Lidocaine Hydrochloride 0.02 MG/MG Topical Gel lidocai ne HCl 2 % mucosal jelly lidocaine HCl 2 % mucosal jelly comple alyssa lidocaine hydrochloride 0.02 MG/MG Topical Gel POLO ([facility]) hydroco/apap tab 5-325mg completed hydroco/apap tab 5-325mg POLO ([facility]) gabapentin 400 mg caps completed gabapentin 400 mg caps POLO ([facility]) tizanidine hydrochloride 4 mg tabs completed tizanidine hydrochloride 4 mg tabs POLO ([facility]) tizanidine hydrochloride 4 mg tabs completed tizanidine hydrochloride 4 mg tabs POLO ([facility]) clopidogrel 75 mg tabs completed clopidogrel 75 mg tabs POLO ([facility]) Acetaminophen 325 MG / Hydrocodone Sony trate 5 MG Oral Tablet hydrocodone 5 mg- acetaminophen 325 mg tablet hydrocodone 5 mg-acetaminophen 325 mg tablet completed acetaminophen 325 MG / hydrocodone bitartrate 5 MG Oral Tablet POLO ([facility]) fluticasone furoate 0.2 MG/ACTUAT Dry Po wder Inhaler Arnuity Ellipta 200 mcg/actuation powder for inhalation Arnuity Ellipta 200 mcg/actuation powder for inhalation completed flu ticasone furoate 0.2 MG/ACTUAT Dry Powder Inhaler POLO ([facility]) lidocaine hcl jelly 2 % gel com pleted lidocaine hcl jelly 2 % gel POLO ([facility]) pantoprazole 20 MG Delayed Release Oral Tablet pantoprazole 20 mg tablet,delayed release pantoprazole 20 mg tablet,delayed release completed pantoprazole 20 MG Delayed Release Oral Tablet POLO ([facility]) Albuterol 0.833 MG/ML / Ipratropium Brom simin 0.167 MG/ML Inhalant Solution ipratropium 0.5 mg-albuterol 3 mg (2.5 mg base)/3 mL nebulization soln twice a day as needed ipratropium 0.5 mg-albuterol 3 mg (2.5 m g base)/3 mL nebulization soln twice a day as needed completed albuterol 0.833 MG/ML / ipratropium bromide 0.167 MG/ML Inhalation Solution POLO ([facility]) Doxycycline Monohydrate 100 MG Oral Caps ule doxycycline monohydrate 100 mg capsule doxycycline monohydrate 100 mg capsule completed Doxycycline Monohydrate 100 MG Oral Capsule POLO ([facility]) Cyclobenzaprine hydrochloride 10 MG Oral Tablet cyclobenzaprine 10 mg tablet TAKE ONE TABLET BY MOUTH EVERY DAY AT BEDTIME cyclobenzaprine 10 mg tablet TAKE ONE TABLET BY MOUTH EVERY DAY AT BEDTIME completed cyclobenzaprine hydrochloride 10 MG Oral Tablet POLO ([facility]) Prednisone 20 MG Oral Tablet prednisone 20 mg tablet prednisone 20 mg tablet completed prednisone 20 MG Oral Tablet POLO ([facility]) hydroco/apap tab 5-325mg completed hydroco/apap tab 5-325mg POLO ([facility]) topiramate 100 mg tabs completed topiramate 100 mg tabs POLO ([facility]) topiramate 100 mg tabs completed topiramate 100 mg tabs POLO ([facility]) ezetimibe 10 mg tabs completed ezetimibe 10 mg tabs POLO ([facility]) pantoprazole sodium 20 mg tbec completed pantoprazole sodium 20 mg tbec POLO ([facility]) fluticasone furoate 0.2 MG/ACTUAT Dry Po wder Inhaler Arnuity Ellipta 200 mcg/actuation powder for inhalation Arnuity Ellipta 200 mcg/actuation powder for inhalation completed flu ticasone furoate 0.2 MG/ACTUAT Dry Powder Inhaler POLO ([facility]) omeprazole 20 mg cpdr completed omeprazole 20 mg cpdr POLO ([facility]) ipratropium/ tiff albuter completed ipratropium/ tiff albuter POLO ([facility]) clopidogrel 75 mg tabs completed clopidogrel 75 mg tabs POLO ([facility]) Ranitidine 150 MG Oral Tablet ranitidine 150 mg tablet ranit idine 150 mg tablet completed ranitidine 150 MG Oral Tablet POLO ([facility]) Prednisone 20 MG Oral Tablet prednisone 20 mg tablet prednisone 20 mg tablet completed prednisone 20 MG Oral Tablet POLO ([facility]) carisoprodol 350 mg tabs completed carisoprodol 350 mg tabs POLO ([facility]) tizanidine hydrochloride 4 mg tabs completed tizanidine hydrochloride 4 mg tabs POLO ([facility]) Omeprazole 20 MG Delayed Release Oral Ca psule omeprazole 20 mg capsule,delayed release TAKE ONE CAPSULE BY MOUTH EVERY DAY 30 MINUTES BEFORE MORNING MEAL NEEDED omeprazole 20 mg capsule,delayed release TAKE ONE CAPSULE BY MOUTH EVERY DAY 30 MINUTES BEFORE MORNING MEAL NEEDED completed omeprazole 20 MG Delayed Release Oral Capsule POLO ([facility]) clopidogrel 75 mg tabs completed clopidogrel 75 mg tabs POLO ([facility]) Albuterol 0.833 MG/ML / Ipratropium Brom simin 0.167 MG/ML Inhalant Solution ipratropium 0.5 mg-albuterol 3 mg (2.5 mg base)/3 mL nebulization soln twice a day as needed ipratropium 0.5 mg-albuterol 3 mg (2.5 m g base)/3 mL nebulization soln twice a day as needed completed albuterol 0.833 MG/ML / ipratropium bromide 0.167 MG/ML Inhalation Solution POLO ([facility]) Ranitidine 150 MG Oral Tablet ranitidine 150 mg tablet ranit idine 150 mg tablet completed ranitidine 150 MG Oral Tablet POLO ([facility]) carisoprodol 350 mg tabs completed carisoprodol 350 mg tabs POLO ([facility]) topiramate 100 mg tabs completed topiramate 100 mg tabs POLO ([facility]) Nortriptyline 25 MG Oral Capsule nortrip tyline 25 mg capsule TAKE ONE CAPSULE BY MOUTH EVERY DAY nortriptyline 25 mg capsule TAKE ONE CAPSULE BY MOUTH EVERY DAY completed nortriptyline 25 MG Oral Capsule POLO ([facility]) Ranitidine 150 MG Oral Tablet ranitidine 150 mg tablet ranit idine 150 mg tablet completed Ranitidine 150 MG Oral Tablet POLO ([facility]) Ranitidine 150 MG Oral Tablet ranitidine 150 mg tablet ranit idine 150 mg tablet completed ranitidine 150 MG Oral Tablet POLO ([facility]) Carisoprodol 350 MG Oral Tablet carisopr odol 350 mg tablet Take 1 tablet 3 times a day by oral route as needed for 5 days. carisoprodol 350 mg tablet Take 1 tablet 3 times a day by oral route as needed for 5 days. 1 completed carisoprodol 350 MG Oral Tablet POLO ( [facility]) Ranitidine 150 MG Oral Tablet ranitidine 150 mg tablet ranit idine 150 mg tablet completed ranitidine 150 MG Oral Tablet POLO ([facility]) Ranitidine 150 MG Oral Tablet ranitidine 150 mg tablet ranit idine 150 mg tablet completed ranitidine 150 MG Oral Tablet POLO ([facility]) Acetaminophen 325 MG / Hydrocodone Sony trate 5 MG Oral Tablet hydrocodone 5 mg- acetaminophen 325 mg tablet hydrocodone 5 mg-acetaminophen 325 mg tablet completed acetaminophen 325 MG / hydrocodone bitartrate 5 MG Oral Tablet POLO ([facility]) Acetaminophen 325 MG / Hydrocodone Sony trate 5 MG Oral Tablet hydrocodone 5 mg- acetaminophen 325 mg tablet hydrocodone 5 mg-acetaminophen 325 mg tablet completed acetaminophen 325 MG / hydrocodone bitartrate 5 MG Oral Tablet POLO ([facility]) Sulfamethoxazole 800 MG / Trimethoprim 1 60 MG Oral Tablet sulfamethoxazole 800 mg-trimethoprim 160 mg tablet sulfamethoxazole 800 mg-trimethoprim 160 mg tablet completed sulfame thoxazole 800 MG / trimethoprim 160 MG Oral Tablet POLO ([facility]) Prednisone 20 MG Oral Tablet prednisone 20 mg tablet prednisone 20 mg tablet completed Prednisone 20 MG Oral Tablet POLO ([facility]) ipratropium/ tiff albuter completed ipratropium/ tiff albuter POLO ([facility]) lidocaine hcl jelly 2 % gel com pleted lidocaine hcl jelly 2 % gel POLO ([facility]) lidocaine 5 % topical patch [id number] com pleted lidocaine 0.05 MG/MG Medicated Patch POLO ([facility]) paroxetine hcl 30 mg tabs compl eted paroxetine hcl 30 mg tabs POLO ([facility]) hydroco/apap tab 5-325mg completed hydroco/apap tab 5-325mg POLO ([facility]) omeprazole 20 mg cpdr completed omeprazole 20 mg cpdr POLO ([facility]) Famotidine 40 MG Oral Tablet famotidine 40 mg tablet famotidine 40 mg tablet completed famotidine 40 MG Oral Tablet POLO ([facility]) Omeprazole 20 MG Delayed Release Oral Ca psule omeprazole 20 mg capsule,delayed release TAKE ONE CAPSULE BY MOUTH EVERY DAY 30 MINUTES BEFORE MORNING MEAL NEEDED omeprazole 20 mg capsule,delayed release TAKE ONE CAPSULE BY MOUTH EVERY DAY 30 MINUTES BEFORE MORNING MEAL NEEDED completed omeprazole 20 MG Delayed Release Oral Capsule POLO ([facility]) Cyclobenzaprine hydrochloride 10 MG Oral Tablet cyclobenzaprine 10 mg tablet TAKE ONE TABLET BY MOUTH EVERY DAY AT BEDTIME cyclobenzaprine 10 mg tablet TAKE ONE TABLET BY MOUTH EVERY DAY AT BEDTIME completed cyclobenzaprine hydrochloride 10 MG Oral Tablet POLO ([facility]) methylprednisolone dose pack 4 mg tbpk completed methylprednisolone dose pack 4 mg tbpk POLO ([facility]) gabapentin 300 mg caps completed gabapentin 300 mg caps POLO ([facility]) Fluzone Quad [id number] (PF) 60 mcg (15 m cg x 4)/0.5 mL IM suspension INJECT DIRECTED [id number] completed 0.5 ML influenza A virus A/[facility]/TBN1411 (H1N1) antigen 0.03 MG/ML / influenza A virus A/[facility] (H3N2) antigen 0.03 MG/ML / influenza B virus B/[facility] antigen 0.03 MG/ML / influenza B virus B/ antigen 0.03 MG/ML Injection [Fluzone Quadrivalent [id number]] POLO ([facility]) ezetimibe 10 mg tabs completed ezetimibe 10 mg tabs POLO ([facility]) doxycycline monohydrate 100 mg caps completed doxycycline monohydrate 100 mg caps POLO ([facility]) lidocaine hcl jelly 2 % gel com pleted lidocaine hcl jelly 2 % gel POLO ([facility]) methylprednisolone 4 mg tablets in a dose pack [id number] completed methylprednisolone 4 mg tablets in a dose pack POLO ([facility]) hydroco/apap tab 5-325mg completed hydroco/apap tab 5-325mg POLO ([facility]) Carisoprodol 350 MG Oral Tablet carisopr odol 350 mg tablet Take 1 tablet 3 times a day by oral route as needed for 5 days. carisoprodol 350 mg tablet Take 1 tablet 3 times a day by oral route as needed for 5 days. 1 completed carisoprodol 350 MG Oral Tablet POLO ( [facility]) topiramate 100 mg tabs completed topiramate 100 mg tabs POLO ([facility]) hydroco/apap tab 5-325mg completed hydroco/apap tab 5-325mg POLO ([facility]) Nortriptyline 25 MG Oral Capsule nortrip tyline 25 mg capsule TAKE ONE CAPSULE BY MOUTH EVERY DAY nortriptyline 25 mg capsule TAKE ONE CAPSULE BY MOUTH EVERY DAY completed nortriptyline 25 MG Oral Capsule POLO ([facility]) alprazolam 0.5 mg tabs completed alprazolam 0.5 mg tabs POLO ([facility]) Lidocaine Hydrochloride 0.02 MG/MG Topical Gel lidocai ne HCl 2 % mucosal jelly lidocaine HCl 2 % mucosal jelly comple alyssa lidocaine hydrochloride 0.02 MG/MG Topical Gel POLO ([facility]) Insurance Providers Payer name Policy type / Coverage type Policy ID Covered green party ID Covered green party's relationship to mcdermott Policy Mcdermott Plan Information MELVINIMISHA [id number] SP [id number] MEDICARE COMPLETE [id number] SP [id number] MEDICARE COMPLETE [id number] SP [id number] MEDICARE COMPLETE-[facility] [id number] S [id number] [facility] [id number] SP [id number] [facility] [id number] SP [id number] MEDICARE COMPLETE [id number] SP [id number] ANSI-Medicare Part B [id number] ANSI-Medicaid [id number] MEDICAID [id number] SP [id number] ANSI-Medicare Part B [id number] ANSI-Medicaid [id number] MEDICAID [id number] SP [id number] ANSI-Medicare Part B [id number] ANSI-Medicaid [id number] ANSI-Medicaid [id number] ANSI-Medicare Part B [id number] ANSI-Medicare Part B [id number] ANSI-Medicaid [id number] Medicaid [facility] Part B [id number] Self [id number] [facility] Medicare Commercial [id number] Self [id number] MEDICARE COMPLETE [id number] SP [id number] ANSI-Medicaid [id number] ANSI-Medicare Part B [id number] ANSI-Medicare Part B [id number] ANSI-Medicaid [id number] ANSI-Medicaid [id number] ANSI-Medicare Part B [id number] ANSI-Medicare Part B [id number] ANSI-Medicaid [id number] ANSI-Medicare Part B [id number] ANSI-Medicaid [id number] ANSI-Medicaid [id number] ANSI-Medicare Part B [id number] ANSI-Medicaid [id number] ANSI-Medicare Part B [id number] ANSI-Medicare Part B [id number] ANSI-Medicaid [id number] [facility] Medicare Complete F [id number] SELF [id number] Medicaid [facility] S D [id number] SELF [id number] ANSI-Medicare Part B [id number] ANSI-Medicaid [id number] [facility] Medicare Complete F [id number] SELF [id number] ANSI-Medicare Part B [id number] ANSI-Medicaid [id number] [facility] Medicare Complete F [id number] SELF [id number] ANSI-Medicare Part B [id number] ANSI-Medicaid [id number] ANSI-Medicaid [id number] ANSI-Medicare Part B [id number] ANSI-Medicare Part B [id number] ANSI-Medicaid [id number] ANSI-Medicare Part B [id number] ANSI-Medicaid [id number] ANSI-Medicaid [id number] ANSI-Medicare Part B [id number] ANSI-Medicaid [id number] ANSI-Medicare Part B [id number] ANSI-Medicaid [id number] ANSI-Medicare Part B [id number] ANSI-Medicaid [id number] ANSI-Medicare Part B [id number] ANSI-Medicaid [id number] ANSI-Medicare Part B [id number] ANSI-Medicare Part B [id number] ANSI-Medicaid [id number] MEDICARE COMPLETE [id number] SP [id number] ANSI-Medicare Part B [id number] ANSI-Medicaid [id number] [place] Med[place] Part B [id number] Self [id number] [facility]) Commercial [id number] Self [id number] MEDICARE [id number] SP [id number] A MEDICAID M [id number] MEDICARE COMPLETE [id number] SP [id number] [place] Part [place] [id number] Self [id number] MEDICARE COMPLETE-[facility] O [id number] S [id number] [place]ig[place] Part B [id number] Self [id number] [facility] MCRO [id number] [facility] [id number] [id number] SP [id number] MEDICARE COMPLETE [id number] SP [id number] [place]ig[place] Part [place] [id number] Self [id number] MEDICAID [id number] SP [id number] [place] Part [place] [id number] Self [id number] [place] Medig[place] Part B [id number] Self [id number] MEDICAID [id number] SP [id number] MEDICARE COMPLETE [id number] SP [id number] [place] Part B [id number] Self [id number] MEDICARE COMPLETE [id number] SP [id number] [facility] [id number] SP [id number] [facility] [id number] SP [id number] MEDICARE [id number] SP [id number] A MEDICARE UNAVAILABLE SP UNAVAILA BLE Problems, Conditions, and Diagnoses Code Display Name Description Problem Type Effective Dates Data Source(s) 400499878 Isolated seizures Isolated seizures Problem 03/07 12:00:00 AM EST MEDENT ([facility], ) [id number] Cerebral infarction due to internal reid tid artery occlusion Cerebral infarction due to internal carotid artery occlusion Problem 03/07/2020 12:00:00 AM EST MEDENT ([facility], ) [id number] Pure hypercholesterolemia Pure hypercholesterolemia Pr oblem 08/31/2019 12:00:00 AM EDT MEDENT ([facility] ) F43.23 [id number] Adjustment disorder with mixed a nxiety and depressed mood Problem 07/14/2019 12:00:00 AM EDT eCW1 ([facility]) J44.1 [id number] COPD with exacerbation Problem 03/31/2019 12 :00:00 AM EST eCW1 ([facility]) K21.9 [id number] Gastroesophageal ref lux disease, esophagitis presence not specified Problem 03/31/2019 12:00:00 AM EST eCW1 ([facility]) K21.9 [id number] Gastroesophageal ref lux disease, esophagitis presence not specified Problem 03/31/2019 12:00:00 AM EST eCW1 ([facility]) J44.1 [id number] COPD with exacerbation Problem 03/31/2019 12 :00:00 AM EST eCW1 ([facility]) Other nonspecific abnormal finding of kehinde ng field Other nonspecific abnormal finding of lung field Problem 02/22/2019 12:00:00 AM EST MEDENT ([facility], ) Surgeries/Procedures Procedure Description Date Indications Data Source(s) Balance Forward 02/22/2020 12:00:00 AM EST MEDENT ([facility], ) Spirometry 09/28/2019 12:00:00 AM EDT M EDENT ([facility], ) RADEX SPINE THORACIC 2 VIEWS 08/31/2019 12:00:00 AM ED T MEDENT ([facility] ) Spirometry 06/28/2019 12:00:00 AM EDT M EDENT ([facility], ) Spirometry 05/17/2019 12:00:00 AM EDT M EDENT ([facility]) Office Visit, Est Pt., Level 3 FC 04/19/2019 12:00:00 AM EST eCW1 ([facility]) Office Visit, Est Pt., Level 4 PC 04/19/2019 12:00:00 AM EST eCW1 ([facility]) URINE-NO MICRO 04/19/2019 12:00:00 AM EST eCW1 ([facility]) Office Visit, Est Pt., Level 2 FC 04/11/2019 12:00:00 AM EST eCW1 ([facility]) Office Visit, Est Pt., Level 3 PC 04/11/2019 12:00:00 AM EST eCW1 ([facility]) Spirometry 02/22/2019 12:00:00 AM EST M EDENT ([facility]) Results ID Date Data Source [id number] 01/30/2020 01:26:00 PM EST MEDENT ([facility], ) Name Value Range Interpretation Code Description Data Connie rce(s) Supporting Document(s) PDFReport Laboratory test result MEDENT ([facility], ) FVC-Pre 2.32 L MEDENT ([facility]) FVC-%Pred-Pre 65 L MEDENT ([facility], ) FVC-Pred 3.53 L MEDENT ([facility]) Fev1-Pred 2.72 L MEDENT ([facility]) Fev1-Pre 1.17 L MEDENT ([facility], ) FVC-LLN 2.79 L [facility] ([facility]) Fev1-%Pred-Pre 43 L MEDENT ([facility]) Fev1-LLN 2.10 L [facility] ([facility]) Fev6-Pred 3.40 L MEDENT ([facility], ) Fev6-Pre 2.27 L [facility] ([facility]) Fev6-%Pred-Pre 66 L MEDENT ([facility], ) Fev6-LLN 2.68 L MEDENT ([facility]) Nwg8wyx-Weo 50 % MEDENT ([facility]) Sud9mod-Czas 78 % MEDENT ([facility]) Dxw0bhh-Tawk 96 % MEDENT ([facility]) Ogt0jhy-%Pred-Pre 64 % MEDENT ([facility]) Trz8sbi-WZO 68 % MEDENT ([facility]) Fyd2nis-Bzp 98 % MEDENT ([facility]) Pyf5qkd-%Pred-Pre 101 % MEDENT ([facility]) FEFMax-Pre 2.07 L/E/sec MEDENT ([facility]) FEFMax-Pred 6.55 L/E/sec MEDENT ([facility], ) FEFMax-LLN 4.73 L/E/sec MEDENT ([facility]) FEFMax-%Pred-Pre 31 L/E/sec MEDENT ([facility]) Spa1675-%Pred-Pre 21 L/E/sec MEDENT ([facility]) Fzo8215-Ketc 2.42 L/E/sec MEDENT ([facility]) Ygx6027-Vho 0.51 L/E/sec MEDENT ([facility]) Cfe8fml1-Vfeh 81 % MEDENT ([facility]) ExpTime-Pre 6.78 sec MEDENT ([facility]) Ejn6291-XNN 1.10 L/E/sec MEDENT ([facility]) Bha7faz3-Jhj 52 % MEDENT ([facility]) Dnu8pvf6-%Pred-Pre 64 % MEDENT ([facility]) Wwj2edc4-YBY 72 % MEDENT ([facility]) ID Date Data Source [id number] 12/30/2019 12:00:00 AM EST POLO ([facility]) Name Value Range Interpretation Code Description Data Connie rce(s) Supporting Document(s) SARS-CoV-2 (COVID-19) RNA [Presence] in Respiratory specimen by MINERVA with probe detection negative negative normal Sars-cov-2 POLO ([facility]) ID Date Data Source [id number] 12/30/2019 12:00:00 AM EST POLO ([facility]) Name Value Range Interpretation Code Description Data Connie rce(s) Supporting Document(s) ID Date Data Source [id number] 12/30/2019 12:00:00 AM EST POLO ([facility]) Name Value Range Interpretation Code Description Data Connie rce(s) Supporting Document(s) SARS-CoV-2 (COVID-19) RNA [Presence] in Respiratory specimen by MINERVA with probe detection negative negative normal Sars-cov-2 POLO ([facility]) ID Date Data Source [id number] 12/30/2019 12:00:00 AM EST POLO ([facility]) Name Value Range Interpretation Code Description Data Connie rce(s) Supporting Document(s) ID Date Data Source [id number] 12/30/2019 12:00:00 AM EST POLO ([facility]) Name Value Range Interpretation Code Description Data Connie rce(s) Supporting Document(s) SARS-CoV-2 (COVID-19) RNA [Presence] in Respiratory specimen by MINERVA with probe detection negative negative normal Sars-cov-2 POLO ([facility]) ID Date Data Source [id number] 12/30/2019 12:00:00 AM EST POLO ([facility]) Name Value Range Interpretation Code Description Data Connie rce(s) Supporting Document(s) ID Date Data Source [id number] 12/30/2019 12:00:00 AM EST POLO ([facility]) Name Value Range Interpretation Code Description Data Connie rce(s) Supporting Document(s) SARS coronavirus 2 RNA [Presence] in Res piratory specimen by MINERVA with probe detection negative negative normal Sars-cov-2 POLO ([facility]) ID Date Data Source [id number] 12/30/2019 12:00:00 AM EST POLO ([facility]) Name Value Range Interpretation Code Description Data Connie rce(s) Supporting Document(s) ID Date Data Source [id number] 12/30/2019 12:00:00 AM EST POLO ([facility]) Name Value Range Interpretation Code Description Data Connie rce(s) Supporting Document(s) SARS coronavirus 2 RNA [Presence] in Res piratory specimen by MINERVA with probe detection negative negative normal Sars-cov-2 POLO ([facility]) ID Date Data Source [id number] 12/30/2019 12:00:00 AM EST POLO ([facility]) Name Value Range Interpretation Code Description Data Connie rce(s) Supporting Document(s) ID Date Data Source [id number] 12/30/2019 12:00:00 AM EST [facility] Name Value Range Interpretation Code Description Data Connie rce(s) Supporting Document(s) SARS-CoV-2 [facility] This lab was ordered by [facility] and reported by [facility]. ID Date Data Source Urinalysis, no micro 12/13/2019 09:52:01 AM EDT [facility]) Name Value Range Interpretation Code Description Data Connie rce(s) Supporting Document(s) trace Leukocyte eCW1 ([facility]) 5 pH eCW1 ([facility]) 1.030 Spec gravity eCW1 ([facility]) neg Nitrate eCW1 ([facility]) 30 Protein eCW1 ([facility]) neg Glucose eCW1 ([facility]) neg Blood eCW1 ([facility]) neg Ketones eCW1 ([facility]) neg Bilirubin eCW1 ([facility]) norm Urobili eCW1 ([facility]) yes Internal QC Acceptable (Y/N) e CW1 ([facility]) ID Date Data Source [id number] 12/10/2019 12:00:00 AM EDT POLO ([facility]) Name Value Range Interpretation Code Description Data Connie rce(s) Supporting Document(s) SARS-CoV-2 (COVID-19) RNA [Presence] in Respiratory specimen by MINERVA with probe detection negative negative normal Sars-cov-2 [facility] ID Date Data Source [id number] 12/10/2019 12:00:00 AM EDT POLO ([facility]) Name Value Range Interpretation Code Description Data Connie rce(s) Supporting Document(s) ID Date Data Source [id number] 12/10/2019 12:00:00 AM EDT POLO ([facility]) Name Value Range Interpretation Code Description Data Connie rce(s) Supporting Document(s) SARS-CoV-2 (COVID-19) RNA [Presence] in Respiratory specimen by MINERVA with probe detection negative negative normal Sars-cov-2 POLO ([facility]) ID Date Data Source [id number] 12/10/2019 12:00:00 AM EDT POLO ([facility]) Name Value Range Interpretation Code Description Data Connie rce(s) Supporting Document(s) ID Date Data Source [id number] 12/10/2019 12:00:00 AM EDT POLO ([facility]) Name Value Range Interpretation Code Description Data Connie rce(s) Supporting Document(s) SARS-CoV-2 (COVID-19) RNA [Presence] in Respiratory specimen by MINERVA with probe detection negative negative normal Sars-cov-2 POLO ([facility]) ID Date Data Source [id number] 12/10/2019 12:00:00 AM EDT POLO ([facility]) Name Value Range Interpretation Code Description Data Connie rce(s) Supporting Document(s) ID Date Data Source [id number] 12/10/2019 12:00:00 AM EDT POLO ([facility]) Name Value Range Interpretation Code Description Data Connie rce(s) Supporting Document(s) SARS coronavirus 2 RNA [Presence] in Res piratory specimen by MINERVA with probe detection negative negative normal Sars-cov-2 POLO ([facility]) ID Date Data Source [id number] 12/10/2019 12:00:00 AM EDT POLO ([facility]) Name Value Range Interpretation Code Description Data Connie rce(s) Supporting Document(s) ID Date Data Source [id number] 12/10/2019 12:00:00 AM EDT POLO ([facility]) Name Value Range Interpretation Code Description Data Connie rce(s) Supporting Document(s) SARS coronavirus 2 RNA [Presence] in Res piratory specimen by MINERVA with probe detection negative negative normal Sars-cov-2 POLO ([facility]) ID Date Data Source [id number] 12/10/2019 12:00:00 AM EDT POLO ([facility]) Name Value Range Interpretation Code Description Data Connie rce(s) Supporting Document(s) ID Date Data Source [id number] 12/10/2019 12:00:00 AM EDT POLO ([facility]) Name Value Range Interpretation Code Description Data Connie rce(s) Supporting Document(s) SARS coronavirus 2 RNA [Presence] in Res piratory specimen by MINERVA with probe detection negative negative normal Sars-cov-2 POLO ([facility]) ID Date Data Source [id number] 12/10/2019 12:00:00 AM EDT POLO ([facility]) Name Value Range Interpretation Code Description Data Connie rce(s) Supporting Document(s) ID Date Data Source [id number] 12/10/2019 12:00:00 AM EDT POLO ([facility]) Name Value Range Interpretation Code Description Data Connie rce(s) Supporting Document(s) SARS coronavirus 2 RNA [Presence] in Res piratory specimen by MINERVA with probe detection negative negative normal Sars-cov-2 POLO ([facility]) ID Date Data Source [id number] 12/10/2019 12:00:00 AM EDT POLO ([facility]) Name Value Range Interpretation Code Description Data Connie rce(s) Supporting Document(s) ID Date Data Source [id number] 12/10/2019 12:00:00 AM EDT POLO ([facility]) Name Value Range Interpretation Code Description Data Connie rce(s) Supporting Document(s) SARS coronavirus 2 RNA [Presence] in Res piratory specimen by MINERVA with probe detection negative negative normal Sars-cov-2 POLO ([facility]) ID Date Data Source [id number] 12/10/2019 12:00:00 AM EDT POLO ([facility]) Name Value Range Interpretation Code Description Data Connie rce(s) Supporting Document(s) ID Date Data Source [id number] 12/10/2019 12:00:00 AM EDT POLO ([facility]) Name Value Range Interpretation Code Description Data Connie rce(s) Supporting Document(s) SARS coronavirus 2 RNA [Presence] in Res piratory specimen by MINERVA with probe detection negative negative normal Sars-cov-2 POLO ([facility]) ID Date Data Source [id number] 12/10/2019 12:00:00 AM EDT POLO ([facility]) Name Value Range Interpretation Code Description Data Connie rce(s) Supporting Document(s) ID Date Data Source [id number] 12/10/2019 12:00:00 AM EDT [facility] Name Value Range Interpretation Code Description Data Connie rce(s) Supporting Document(s) SARS-CoV-2 [facility] This lab was ordered by [facility] and reported by [facility]. ID Date Data Source [id number] 09/13/2019 12:00:00 AM EDT [facility] Mir Estrada MD Patient Name: RAYMOND FREEMAN [facility] Date of : 1960[place] [address] Date of Exam: 09/13/2019#: Fax: [phone] EXAM: [...] is a mild T7 compression deformity with acqmqsrcdxlcl68% loss of height. Focal edema at T5 [...] rce(s) Supporting Document(s) ID Date Data Source [id number] 08/29/2019 12:00:00 AM EDT POLO ([facility]) Name Value Range Interpretation Code Description Data Connie rce(s) Supporting Document(s) ID Date Data Source [id number] 08/29/2019 12:00:00 AM EDT POLO ([facility]) Name Value Range Interpretation Code Description Data Connie rce(s) Supporting Document(s) ID Date Data Source [id number] 08/29/2019 12:00:00 AM EDT POLO ([facility]) Name Value Range Interpretation Code Description Data Connie rce(s) Supporting Document(s) ID Date Data Source [id number] 08/29/2019 12:00:00 AM EDT POLO ([facility]) Name Value Range Interpretation Code Description Data Connie rce(s) Supporting Document(s) ID Date Data Source [id number] 08/29/2019 12:00:00 AM EDT POLO ([facility]) Name Value Range Interpretation Code Description Data Connie rce(s) Supporting Document(s) ID Date Data Source [id number] 08/29/2019 12:00:00 AM EDT POLO ([facility]) Name Value Range Interpretation Code Description Data Connie rce(s) Supporting Document(s) ID Date Data Source [id number] 08/29/2019 12:00:00 AM EDT POLO ([facility]) Name Value Range Interpretation Code Description Data Connie rce(s) Supporting Document(s) ID Date Data Source [id number] 08/29/2019 12:00:00 AM EDT POLO ([facility]) Name Value Range Interpretation Code Description Data Connie rce(s) Supporting Document(s) ID Date Data Source [id number] 08/29/2019 12:00:00 AM EDT POLO ([facility]) Name Value Range Interpretation Code Description Data Connie rce(s) Supporting Document(s) ID Date Data Source [id number] 08/29/2019 12:00:00 AM EDT POLO ([facility]) Name Value Range Interpretation Code Description Data Connie rce(s) Supporting Document(s) ID Date Data Source [id number] 08/29/2019 12:00:00 AM EDT POLO ([facility]) Name Value Range Interpretation Code Description Data Connie rce(s) Supporting Document(s) ID Date Data Source [id number] 08/29/2019 12:00:00 AM EDT POLO ([facility]) Name Value Range Interpretation Code Description Data Connie rce(s) Supporting Document(s) ID Date Data Source [id number] 08/29/2019 12:00:00 AM EDT POLO ([facility]) Name Value Range Interpretation Code Description Data Connie rce(s) Supporting Document(s) ID Date Data Source [id number] 08/29/2019 12:00:00 AM EDT POLO ([facility]) Name Value Range Interpretation Code Description Data Connie rce(s) Supporting Document(s) ID Date Data Source [id number] 08/29/2019 12:00:00 AM EDT POLO ([facility]) Name Value Range Interpretation Code Description Data Connie rce(s) Supporting Document(s) ID Date Data Source [id number] 08/29/2019 12:00:00 AM EDT POLO ([facility]) Name Value Range Interpretation Code Description Data Connie rce(s) Supporting Document(s) ID Date Data Source [id number] 08/29/2019 12:00:00 AM EDT [facility] Name Value Range Interpretation Code Description Data Connie rce(s) Supporting Document(s) SARS-CoV-2 [facility] This lab was ordered by [facility]-COVID[facility] and reported by [facility]. ID Date Data Source [id number] 06/28/2019 12:32:00 PM EDT MEDENT ([facility], ) Name Value Range Interpretation Code Description Data Connie rce(s) Supporting Document(s) FVC-Pred 3.55 L MEDENT ([facility]) PDFReport Laboratory test result MEDENT ([facility]) Fev1-Pred 2.75 L MEDENT ([facility]) FVC-%Pred-Pre 65 L MEDENT ([facility]) FVC-Pre 2.34 L MEDENT ([facility]) FVC-LLN 2.82 L MEDENT ([facility]) Fev1-LLN 2.13 L MEDENT ([facility]) Fev1-%Pred-Pre 47 L MEDENT ([facility]) Fev1-Pre 1.30 L MEDENT ([facility]) Fev6-Pred 3.43 L MEDENT ([facility]) Fev6-LLN 2.71 L MEDENT ([facility]) Fev6-Pre 2.34 L MEDENT ([facility]) Fev6-%Pred-Pre 68 L MEDENT ([facility]) Fxh8xde-Cig 56 % MEDENT ([facility]) Dis2wap-%Pred-Pre 71 % MEDENT ([facility]) Vzp3cyp-Wawp 78 % MEDENT ([facility]) Vur7ium-CST 68 % MEDENT ([facility]) Wgh2bel-Avah 97 % MEDENT ([facility]) Nsn0pjm-Yvd 100 % MEDENT ([facility]) Jyk5htq-%Pred-Pre 103 % MEDENT ([facility]) FEFMax-Pre 2.60 L/E/sec MEDENT ([facility]) FEFMax-Pred 6.61 L/E/sec MEDENT ([facility]) FEFMax-%Pred-Pre 39 L/E/sec MEDENT ([facility]) FEFMax-LLN 4.78 L/E/sec MEDENT ([facility]) Gif8233-Ysx 0.59 L/E/sec MEDENT ([facility]) Qjt9221-%Pred-Pre 24 L/E/sec MEDENT ([facility]) Hbj3898-Wfvt 2.47 L/E/sec MEDENT ([facility]) Dfv9446-KGO 1.15 L/E/sec MEDENT ([facility]) ExpTime-Pre 5.88 sec MEDENT ([facility]) Los6ocx3-Eqm 56 % MEDENT ([facility]) Irr2uio2-Rwrb 81 % MEDENT ([facility]) Dcl5nnb4-UDT 72 % MEDENT ([facility]) Qqw2tny3-%Pred-Pre 69 % MEDENT ([facility]) ID Date Data Source [id number] 05/18/2019 10:05:00 AM EDT [facility] Name Value Range Interpretation Code Description Data Connie rce(s) Supporting Document(s) SARS CORONAVIRUS 2 RNA [facility] This lab was ordered by [facility] and reported by [facility]. ID Date Data Source [id number] 04/18/2019 12:59:00 PM EST MEDENT ([facility]) Name Value Range Interpretation Code Description Data Connie rce(s) Supporting Document(s) Calcidiol [Mass/volume] in Serum or Plasma 29.7 ng/mL 30.0-100.0 MEDENT ([facility]) ID Date Data Source [id number] 04/18/2019 12:59:00 PM EST MEDENT ([facility]) Name Value Range Interpretation Code Description Data Connie rce(s) Supporting Document(s) Blood Urea Nitrogen 13 mg/dL 7-18 MED[facility] ([facility]) Glucose, Fasting 84 mg/dL 70-100 MEDENT ([facility]) Creatinine For GFR 0.89 mg/dL 0.55-1.30 MEDENT ([facility]) Glomerular Filtration Rate Laboratory test result MEDENT ([facility]) <content>Units are mL/min/1.73 m2</content>
<content></content>
<content>Chronic Kidney Disease Staging per NKF:</content>
<content></content>
<content>Stage I & II GFR >=60 Normal to Mildly Decreased</content>
<content>Stage III GFR 30- 59 Moderately Decreased</content>
<content>Stage IV GFR 15-29 Severely Decreased</content>
<content>Stage V GFR <15 Very Little GFR Left</content>
<content>ESRD GFR <15 on MILL DRESSER</content>
<content></content> Chloride Level 114 meq/L 98-107 [facility] ([facility]) Potassium Serum 5.3 meq/L 3.5-5.1 MEDENT ([facility]) Sodium Level 143 meq/L 136-145 [facility] ([facility]) Anion Gap 1 meq/L 8-16 [facility] ([facility]) Carbon Dioxide Level 28 meq/L 21-32 MEDENT ([facility]) Calcium Level 8.9 mg/dL 8.8-10.2 MEDENT ([facility]) Procedure Social History Code Duration Value Status Description Data Source(s ) Smoking 12/13/2019 12:00:00 AM EDT Current Smoker completed Curre nt Smoker eCW1 ([facility]) Smoking 12/13/2019 12:00:00 AM EDT Current Smoker completed Curre nt Smoker eCW1 ([facility]) Smoking 12/13/2019 12:00:00 AM EDT Current Smoker completed Curre nt Smoker eCW1 ([facility]) Smoking 12/13/2019 12:00:00 AM EDT Current Smoker completed Curre nt Smoker eCW1 ([facility]) Smoking 12/13/2019 12:00:00 AM EDT Current Smoker completed Curre nt Smoker eCW1 ([facility]) Smoking 12/13/2019 12:00:00 AM EDT Current Smoker completed Curre nt Smoker eCW1 ([facility]) Smoking 12/13/2019 12:00:00 AM EDT Current Smoker completed Curre nt Smoker eCW1 ([facility]) Smoking 07/14/2019 12:00:00 AM EDT Current Smoker completed Curre nt Smoker eCW1 ([facility]) Vital Signs ID Date Data Source UNK Name Value Range Interpretation Code Description Data Source(s) Body height 66 [in_i] 66 [in_i] POLO ([facility]) Body height 66 [in_i] 66 [in_i] WAGGONER ([facility]) Body surface area Derived from formula 1.59 m2 1.59 m2 [facility] ([facility]) Body weight 53.071 kg 53.071 kg [facility] ([facility]) [place] body weight 130 [lb_av] 130 [facility]_av[facility] Body mass index (BMI) [Ratio] 18.9 kg/m2 18.9 k g/m2 [facility] ([facility]) Body weight 117.00 [lb_av] 117.00 [lb_av] [facility] Body height 66 [in_i] 66 [in_i] [facility] ([facility]) 5'6" Oxygen saturation in Arterial blood by Pulse oximetry 96 % 96 % [facility] ([facility]) Heart rate 63 /min 63 /min [facility] ([facility]) Diastolic blood pressure 78 mm[Hg] 78 mm[Hg] [facility] ([facility]) Systolic blood pressure 150 mm[Hg] 150 mm[Hg] [facility] Systolic blood pressure 127 mm[Hg] 127 mm[Hg] A THENA ([facility]) Body height 66 [in_i] 66 [in_i] POLO ([facility]) Diastolic blood pressure 67 mm[Hg] 67 mm[Hg] POLO ([facility]) Systolic blood pressure 127 mm[Hg] 127 mm[Hg] A THENA ([facility]) Body height 66 [in_i] 66 [in_i] POLO ([facility]) Diastolic blood pressure 67 mm[Hg] 67 mm[Hg] POLO ([facility]) Systolic blood pressure 127 mm[Hg] 127 mm[Hg] A THENA ([facility]) Body height 66 [in_i] 66 [in_i] POLO ([facility]) Diastolic blood pressure 67 mm[Hg] 67 mm[Hg] POLO ([facility]) Systolic blood pressure 127 mm[Hg] 127 mm[Hg] A THENA ([facility]) Body height 66 [in_i] 66 [in_i] POLO ([facility]) Diastolic blood pressure 67 mm[Hg] 67 mm[Hg] POLO ([facility]) Systolic blood pressure 127 mm[Hg] 127 mm[Hg] A THENA ([facility] [facility]) Body height 66 [in_i] 66 [in_i] POLO ([facility]) Diastolic blood pressure 67 mm[Hg] 67 mm[Hg] POLO ([facility]) Systolic blood pressure 127 mm[Hg] 127 mm[Hg] A THENA ([facility]) Body height 66 [in_i] 66 [in_i] POLO ([facility]) Diastolic blood pressure 67 mm[Hg] 67 mm[Hg] POLO ([facility]) Systolic blood pressure 127 mm[Hg] 127 mm[Hg] A THENA ([facility]) Body height 66 [in_i] 66 [in_i] POLO ([facility]) Diastolic blood pressure 67 mm[Hg] 67 mm[Hg] POLO ([facility]) Diastolic blood pressure 69 mm[Hg] 69 mm[Hg] [facility] ([facility]) Systolic blood pressure 146 mm[Hg] 146 mm[Hg] e CW1 ([facility]) Body temperature 97.0 [degF] 97.0 [degF] eCW1 ( [facility]) Respiratory rate 17 /min 17 /min eCW1 (Replaced by [facility]) Heart rate 69 /min 69 /min eCW1 ([facility]) Body mass index (BMI) [Ratio] 20.13 kg/m2 20.13 kg/m2 eCW1 ([facility]) Body height 65 [in_i] 65 [in_i] eCW1 ([facility]) Body weight 121 [lb_av] 121 [lb_av] eCW1 (Replaced by [facility]) Body weight 128 [lb_av] 128 [lb_av] POLO ([facility]) Body mass index (BMI) [Ratio] 20.7 kg/m2 20.7 k g/m2 POLO ([facility]) Body height 66 [in_i] 66 [in_i] POLO ([facility]) Body weight 128 [lb_av] 128 [lb_av] POLO ([facility]) Body mass index (BMI) [Ratio] 20.7 kg/m2 20.7 k g/m2 POLO ([facility]) Body height 66 [in_i] 66 [in_i] POLO ([facility]) Body weight 128 [lb_av] 128 [lb_av] POLO ([facility]) Body mass index (BMI) [Ratio] 20.7 kg/m2 20.7 k g/m2 POLO ([facility]) Body height 66 [in_i] 66 [in_i] POLO ([facility]) Body weight 128 [lb_av] 128 [lb_av] POLO ([facility]) Body mass index (BMI) [Ratio] 20.7 kg/m2 20.7 k g/m2 POLO ([facility]) Body height 66 [in_i] 66 [in_i] POLO ([facility]) Body weight 128 [lb_av] 128 [lb_av] POLO ([facility]) Body mass index (BMI) [Ratio] 20.7 kg/m2 20.7 k g/m2 POLO ([facility]) Body height 66 [in_i] 66 [in_i] POLO ([facility]) Body weight 128 [lb_av] 128 [lb_av] POLO ([facility]) Body mass index (BMI) [Ratio] 20.7 kg/m2 20.7 k g/m2 POLO ([facility]) Body height 66 [in_i] 66 [in_i] POLO ([facility]) Body weight 128 [lb_av] 128 [lb_av] POLO ([facility]) Body mass index (BMI) [Ratio] 20.7 kg/m2 20.7 k g/m2 POLO ([facility]) Body height 66 [in_i] 66 [in_i] POLO ([facility]) Body weight 128 [lb_av] 128 [lb_av] POLO ([facility]) Body mass index (BMI) [Ratio] 20.7 kg/m2 20.7 k g/m2 POLO ([facility]) Body height 66 [in_i] 66 [in_i] POLO ([facility]) Body weight 128 [lb_av] 128 [lb_av] POLO ([facility]) Body mass index (BMI) [Ratio] 20.7 kg/m2 20.7 k g/m2 POLO ([facility]) Body height 66 [in_i] 66 [in_i] POLO ([facility]) Body weight 128 [lb_av] 128 [lb_av] POLO ([facility]) Body mass index (BMI) [Ratio] 20.7 kg/m2 20.7 k g/m2 POLO ([facility]) Body height 66 [in_i] 66 [in_i] POLO ([facility]) Body weight 128 [lb_av] 128 [lb_av] POLO ([facility]) Body mass index (BMI) [Ratio] 20.7 kg/m2 20.7 k g/m2 POLO ([facility]) Body height 66 [in_i] 66 [in_i] POLO ([facility]) Body weight 128 [lb_av] 128 [lb_av] POLO ([facility]) Body mass index (BMI) [Ratio] 20.7 kg/m2 20.7 k g/m2 POLO ([facility]) Body height 66 [in_i] 66 [in_i] POLO ([facility]) Body weight 128 [lb_av] 128 [lb_av] POLO ([facility]) Body mass index (BMI) [Ratio] 20.7 kg/m2 20.7 k g/m2 POLO ([facility]) Body height 66 [in_i] 66 [in_i] POLO ([facility]) Body surface area Derived from formula 1.62 m2 1.62 m2 [facility] ([facility], ) Body weight 55.509 kg 55.509 kg [facility] ([facility], ) [place] body weight 130 [lb_av] 130 [lb_av] MEDEN T ([facility]) Body mass index (BMI) [Ratio] 19.7 kg/m2 19.7 k g/m2 [facility] ([facility]) Body weight 122.38 [lb_av] 122.38 [lb_av] MEDEN T ([facility]) Body height 66 [in_i] 66 [in_i] [facility] ([facility], ) 5'6" Body temperature 97.5 [degF] 97.5 [degF] [facility] ([facility], ) Oxygen saturation in Arterial blood by Pulse oximetry 98 % 98 % [facility] ([facility], ) Heart rate 77 /min 77 /min [facility] ([facility], ) Diastolic blood pressure 78 mm[Hg] 78 mm[Hg] MEDENT ([facility], ) Systolic blood pressure 144 mm[Hg] 144 mm[Hg] M EDENT ([facility], ) Body weight 128 [lb_av] 128 [lb_av] POLO ([facility]) Systolic blood pressure 132 mm[Hg] 132 mm[Hg] A IDRISA ([facility]) Body mass index (BMI) [Ratio] 20.7 kg/m2 20.7 k g/m2 POLO ([facility]) Body height 66 [in_i] 66 [in_i] POLO ([facility]) Diastolic blood pressure 72 mm[Hg] 72 mm[Hg] POLO ([facility]) Body weight 128 [lb_av] 128 [lb_av] POLO ([facility]) Systolic blood pressure 132 mm[Hg] 132 mm[Hg] A THENA ([facility]) Body mass index (BMI) [Ratio] 20.7 kg/m2 20.7 k g/m2 POLO ([facility]) Body height 66 [in_i] 66 [in_i] POLO ([facility]) Diastolic blood pressure 72 mm[Hg] 72 mm[Hg] POLO ([facility]) Body mass index (BMI) [Ratio] 20.7 kg/m2 20.7 k g/m2 POLO ([facility]) Body height 66 [in_i] 66 [in_i] POLO ([facility]) Diastolic blood pressure 72 mm[Hg] 72 mm[Hg] POLO ([facility]) Body weight 128 [lb_av] 128 [lb_av] POLO ([facility]) Systolic blood pressure 132 mm[Hg] 132 mm[Hg] A THENA ([facility]) Body mass index (BMI) [Ratio] 20.7 kg/m2 20.7 k g/m2 POLO ([facility]) Body height 66 [in_i] 66 [in_i] POLO ([facility]) Diastolic blood pressure 72 mm[Hg] 72 mm[Hg] POLO ([facility]) Body weight 128 [lb_av] 128 [lb_av] POLO ([facility]) Systolic blood pressure 132 mm[Hg] 132 mm[Hg] A THENA ([facility]) Body mass index (BMI) [Ratio] 20.7 kg/m2 20.7 k g/m2 POLO ([facility]) Body height 66 [in_i] 66 [in_i] POLO ([facility]) Diastolic blood pressure 72 mm[Hg] 72 mm[Hg] POLO ([facility]) Body weight 128 [lb_av] 128 [lb_av] POLO ([facility]) Systolic blood pressure 132 mm[Hg] 132 mm[Hg] A THENA ([facility]) Body mass index (BMI) [Ratio] 20.7 kg/m2 20.7 k g/m2 POLO ([facility]) Body height 66 [in_i] 66 [in_i] POLO ([facility]) Diastolic blood pressure 72 mm[Hg] 72 mm[Hg] POLO ([facility]) Body weight 128 [lb_av] 128 [lb_av] POLO ([facility]) Systolic blood pressure 132 mm[Hg] 132 mm[Hg] A THENA ([facility]) Body mass index (BMI) [Ratio] 20.7 kg/m2 20.7 k g/m2 POLO ([facility]) Body height 66 [in_i] 66 [in_i] POLO ([facility]) Diastolic blood pressure 72 mm[Hg] 72 mm[Hg] POLO ([facility]) Body weight 128 [lb_av] 128 [lb_av] POLO ([facility]) Systolic blood pressure 132 mm[Hg] 132 mm[Hg] A THENA ([facility]) Body mass index (BMI) [Ratio] 20.7 kg/m2 20.7 k g/m2 POLO ([facility]) Body height 66 [in_i] 66 [in_i] POLO ([facility]) Diastolic blood pressure 72 mm[Hg] 72 mm[Hg] POLO ([facility]) Body weight 128 [lb_av] 128 [lb_av] POLO ([facility]) Systolic blood pressure 132 mm[Hg] 132 mm[Hg] A THENA ([facility]) Body mass index (BMI) [Ratio] 20.7 kg/m2 20.7 k g/m2 POLO ([facility]) Body height 66 [in_i] 66 [in_i] POLO ([facility]) Diastolic blood pressure 72 mm[Hg] 72 mm[Hg] POLO ([facility]) Body weight 128 [lb_av] 128 [lb_av] POLO ([facility]) Systolic blood pressure 132 mm[Hg] 132 mm[Hg] A THENA ([facility]) Body weight 128 [lb_av] 128 [lb_av] POLO ([facility]) Systolic blood pressure 132 mm[Hg] 132 mm[Hg] A THENA ([facility]) Body mass index (BMI) [Ratio] 20.7 kg/m2 20.7 k g/m2 POLO ([facility]) Body height 66 [in_i] 66 [in_i] POLO ([facility]) Diastolic blood pressure 72 mm[Hg] 72 mm[Hg] POLO ([facility]) Body weight 128 [lb_av] 128 [lb_av] POLO ([facility]) Systolic blood pressure 132 mm[Hg] 132 mm[Hg] A THENA ([facility]) Body mass index (BMI) [Ratio] 20.7 kg/m2 20.7 k g/m2 POLO ([facility]) Body height 66 [in_i] 66 [in_i] POLO ([facility]) Diastolic blood pressure 72 mm[Hg] 72 mm[Hg] POLO ([facility]) Body weight 128 [lb_av] 128 [lb_av] POLO ([facility]) Systolic blood pressure 132 mm[Hg] 132 mm[Hg] A THENA ([facility]) Body mass index (BMI) [Ratio] 20.7 kg/m2 20.7 k g/m2 POLO ([facility]) Body height 66 [in_i] 66 [in_i] POLO ([facility]) Diastolic blood pressure 72 mm[Hg] 72 mm[Hg] POLO ([facility]) Body weight 128 [lb_av] 128 [lb_av] POLO ([facility]) Systolic blood pressure 132 mm[Hg] 132 mm[Hg] A THENA ([facility]) Body mass index (BMI) [Ratio] 20.7 kg/m2 20.7 k g/m2 POLO ([facility]) Body height 66 [in_i] 66 [in_i] POLO ([facility]) Diastolic blood pressure 72 mm[Hg] 72 mm[Hg] POLO ([facility]) Body weight 128 [lb_av] 128 [lb_av] POLO ([facility]) Systolic blood pressure 132 mm[Hg] 132 mm[Hg] A THENA ([facility]) Body mass index (BMI) [Ratio] 20.7 kg/m2 20.7 k g/m2 POLO ([facility]) Body height 66 [in_i] 66 [in_i] POLO ([facility]) Diastolic blood pressure 72 mm[Hg] 72 mm[Hg] POLO ([facility]) Body weight 128 [lb_av] 128 [lb_av] POLO ([facility]) Systolic blood pressure 132 mm[Hg] 132 mm[Hg] A THENA ([facility]) Body mass index (BMI) [Ratio] 20.7 kg/m2 20.7 k g/m2 POLO ([facility]) Body height 66 [in_i] 66 [in_i] POLO ([facility]) Diastolic blood pressure 72 mm[Hg] 72 mm[Hg] POLO ([facility]) Body mass index (BMI) [Ratio] 20.6 kg/m2 20.6 k g/m2 MEDENT ([facility]) Body weight 120.00 [lb_av] 120.00 [lb_av] MEDEN T ([facility]) Body height 64 [in_i] 64 [in_i] MEDENT ([facility]) 5'4" Body temperature 97.7 [degF] 97.7 [degF] MEDENT ([facility]) Systolic blood pressure 142 mm[Hg] 142 mm[Hg] A THENA ([facility]) Body height 66 [in_i] 66 [in_i] POLO ([facility]) Diastolic blood pressure 62 mm[Hg] 62 mm[Hg] POLO ([facility]) Systolic blood pressure 142 mm[Hg] 142 mm[Hg] A THENA ([facility]) Body height 66 [in_i] 66 [in_i] POLO ([facility]) Diastolic blood pressure 62 mm[Hg] 62 mm[Hg] POLO ([facility]) Systolic blood pressure 142 mm[Hg] 142 mm[Hg] A THENA ([facility]) Body height 66 [in_i] 66 [in_i] POLO ([facility]) Diastolic blood pressure 62 mm[Hg] 62 mm[Hg] POLO ([facility]) Systolic blood pressure 142 mm[Hg] 142 mm[Hg] A THENA ([facility]) Body height 66 [in_i] 66 [in_i] POLO ([facility]) Diastolic blood pressure 62 mm[Hg] 62 mm[Hg] POLO ([facility]) Systolic blood pressure 142 mm[Hg] 142 mm[Hg] A THENA ([facility]) Body height 66 [in_i] 66 [in_i] POLO ([facility]) Diastolic blood pressure 62 mm[Hg] 62 mm[Hg] POLO ([facility]) Systolic blood pressure 142 mm[Hg] 142 mm[Hg] A THENA ([facility]) Body height 66 [in_i] 66 [in_i] POLO ([facility]) Diastolic blood pressure 62 mm[Hg] 62 mm[Hg] POLO ([facility]) Systolic blood pressure 142 mm[Hg] 142 mm[Hg] A THENA ([facility]) Body height 66 [in_i] 66 [in_i] POLO ([facility]) Diastolic blood pressure 62 mm[Hg] 62 mm[Hg] POLO ([facility]) Systolic blood pressure 142 mm[Hg] 142 mm[Hg] A THENA ([facility]) Body height 66 [in_i] 66 [in_i] POLO ([facility]) Diastolic blood pressure 62 mm[Hg] 62 mm[Hg] POLO ([facility]) Systolic blood pressure 142 mm[Hg] 142 mm[Hg] A THENA ([facility]) Body height 66 [in_i] 66 [in_i] POLO ([facility]) Diastolic blood pressure 62 mm[Hg] 62 mm[Hg] POLO ([facility]) Systolic blood pressure 142 mm[Hg] 142 mm[Hg] A THENA ([facility]) Body height 66 [in_i] 66 [in_i] POLO ([facility]) Diastolic blood pressure 62 mm[Hg] 62 mm[Hg] POLO ([facility]) Systolic blood pressure 142 mm[Hg] 142 mm[Hg] A THENA ([facility]) Body height 66 [in_i] 66 [in_i] POLO ([facility]) Diastolic blood pressure 62 mm[Hg] 62 mm[Hg] POLO ([facility]) Systolic blood pressure 142 mm[Hg] 142 mm[Hg] A THENA ([facility]) Body height 66 [in_i] 66 [in_i] POLO ([facility]) Diastolic blood pressure 62 mm[Hg] 62 mm[Hg] POLO ([facility]) Systolic blood pressure 142 mm[Hg] 142 mm[Hg] A THENA ([facility]) Body height 66 [in_i] 66 [in_i] POLO ([facility]) Diastolic blood pressure 62 mm[Hg] 62 mm[Hg] POLO ([facility]) Systolic blood pressure 142 mm[Hg] 142 mm[Hg] A THENA ([facility]) Body height 66 [in_i] 66 [in_i] POLO ([facility]) Diastolic blood pressure 62 mm[Hg] 62 mm[Hg] POLO ([facility]) Systolic blood pressure 142 mm[Hg] 142 mm[Hg] A THENA ([facility]) Body height 66 [in_i] 66 [in_i] POLO ([facility]) Diastolic blood pressure 62 mm[Hg] 62 mm[Hg] POLO ([facility]) Systolic blood pressure 142 mm[Hg] 142 mm[Hg] A THENA ([facility]) Body height 66 [in_i] 66 [in_i] POLO ([facility]) Diastolic blood pressure 62 mm[Hg] 62 mm[Hg] POLO ([facility]) Systolic blood pressure 142 mm[Hg] 142 mm[Hg] A THENA ([facility]) Body height 66 [in_i] 66 [in_i] POLO ([facility]) Diastolic blood pressure 62 mm[Hg] 62 mm[Hg] POLO ([facility]) Systolic blood pressure 142 mm[Hg] 142 mm[Hg] A THENA ([facility]) Body height 66 [in_i] 66 [in_i] POLO ([facility]) Diastolic blood pressure 62 mm[Hg] 62 mm[Hg] POLO ([facility]) Systolic blood pressure 142 mm[Hg] 142 mm[Hg] A THENA ([facility]) Body height 66 [in_i] 66 [in_i] POLO ([facility]) Diastolic blood pressure 62 mm[Hg] 62 mm[Hg] POLO ([facility]) Diastolic blood pressure 103 mm[Hg] 103 mm[Hg] eCW1 ([facility]) Systolic blood pressure 175 mm[Hg] 175 mm[Hg] e CW1 ([facility]) Body temperature 97.8 [degF] 97.8 [degF] eCW1 ( [facility]) Respiratory rate 17 /min 17 /min eCW1 (Replaced by [facility]) Heart rate 77 /min 77 /min eCW1 ([facility]) Body mass index (BMI) [Ratio] 20.73 kg/m2 20.73 kg/m2 eCW1 ([facility]) Body height 65 [in_i] 65 [in_i] eCW1 ([facility]) Body weight 124.6 [lb_av] 124.6 [lb_av] eCW1 ([facility]) Oxygen saturation in Arterial blood by Pulse oximetry 97 % 97 % MEDENT ([facility] ) Body mass index (BMI) [Ratio] 20.6 kg/m2 20.6 k g/m2 MEDENT ([facility] ) Body weight 124.00 [lb_av] 124.00 [lb_av] MEDEN T ([facility] ) Body height 65 [in_i] 65 [in_i] MEDENT ([facility] ) 5'5" Heart rate 74 /min 74 /min [facility] ([facility] ) Diastolic blood pressure 72 mm[Hg] 72 mm[Hg] [facility] ([facility] ) Systolic blood pressure 120 mm[Hg] 120 mm[Hg] M EDENT ([facility] ) Body weight 57.267 kg 57.267 kg [facility] ([facility]) Body mass index (BMI) [Ratio] 20.4 kg/m2 20.4 k g/m2 [facility] ([facility]) Body weight 126.25 [lb_av] 126.25 [lb_av] MEDEN T ([facility]) Body height 66 [in_i] 66 [in_i] [facility] ([facility]) 5'6" Body temperature 97.1 [degF] 97.1 [degF] [facility] ([facility]) Oxygen saturation in Arterial blood by Pulse oximetry 99 % 99 % [facility] ([facility]) Heart rate 66 /min 66 /min [facility] ([facility]) Diastolic blood pressure 86 mm[Hg] 86 mm[Hg] [facility] ([facility]) Systolic blood pressure 138 mm[Hg] 138 mm[Hg] [facility] Body weight 63.221 kg 63.221 kg [facility] ([facility]) Body mass index (BMI) [Ratio] 22.5 kg/m2 22.5 k g/m2 [facility] ([facility]) Body weight 139.38 [lb_av] 139.38 [lb_av] MEDEN T ([facility]) Body height 66 [in_i] 66 [in_i] [facility] ([facility]) 5'6" Body temperature 98.0 [degF] 98.0 [degF] [facility] ([facility]) Oxygen saturation in Arterial blood by Pulse oximetry 96 % 96 % [facility] ([facility]) Heart rate 92 /min 92 /min [facility] ([facility]) Diastolic blood pressure 80 mm[Hg] 80 mm[Hg] MEDENT ([facility], ) Systolic blood pressure 162 mm[Hg] 162 mm[Hg] M EDENT ([facility], ) Body mass index (BMI) [Ratio] 22.2 kg/m2 22.2 k g/m2 MEDENT ([facility] ) Body weight 133.25 [lb_av] 133.25 [lb_av] MEDEN T ([facility] ) Body height 65 [in_i] 65 [in_i] MEDENT ([facility] ) 5'5" Heart rate 77 /min 77 /min MEDENT ([facility] ) Diastolic blood pressure 78 mm[Hg] 78 mm[Hg] MEDENT ([facility] ) Systolic blood pressure 130 mm[Hg] 130 mm[Hg] M EDENT ([facility] ) Oxygen saturation in Arterial blood by Pulse oximetry 95 % 95 % [facility] Diastolic blood pressure 68 mm[Hg] 68 mm[Hg] eCW1 ([facility]) Systolic blood pressure 128 mm[Hg] 128 mm[Hg] e CW1 ([facility]) Body temperature 96.5 [degF] 96.5 [degF] eCW1 ( [facility]) Respiratory rate 18 /min 18 /min eCW1 (Replaced by [facility]) Heart rate 82 /min 82 /min eCW1 ([facility]) Body mass index (BMI) [Ratio] 22.23 kg/m2 22.23 kg/m2 eCW1 ([facility]) Body height 65 [in_us] 65 [in_us] eCW1 ([facility]) Body weight Measured 133.6 [lb_av] 133.6 [lb_av ] eCW1 ([facility]) Diastolic blood pressure 88 mm[Hg] 88 mm[Hg] eCW1 ([facility]) Systolic blood pressure 149 mm[Hg] 149 mm[Hg] e CW1 ([facility]) Body temperature 98.0 [degF] 98.0 [degF] eCW1 ( [facility]) Respiratory rate 17 /min 17 /min eCW1 (Replaced by [facility]) Heart rate 61 /min 61 /min eCW1 ([facility]) Body mass index (BMI) [Ratio] 22.50 kg/m2 22.50 kg/m2 eCW1 ([facility]) Body height 65 [in_us] 65 [in_us] eCW1 ([facility]) Body weight Measured 135.2 [lb_av] 135.2 [lb_av ] eCW1 ([facility]) Diastolic blood pressure 79 mm[Hg] 79 mm[Hg] eCW1 ([facility]) Systolic blood pressure 172 mm[Hg] 172 mm[Hg] e CW1 ([facility]) Body temperature 97.8 [degF] 97.8 [degF] eCW1 ( [facility]) Respiratory rate 18 /min 18 /min eCW1 (Replaced by [facility]) Heart rate 61 /min 61 /min eCW1 ([facility]) Body mass index (BMI) [Ratio] 22.46 kg/m2 22.46 kg/m2 eCW1 ([facility]) Body height 65 [in_us] 65 [in_us] eCW1 ([facility]) Body weight Measured 135 [lb_av] 135 [lb_av] eC W1 ([facility]) Systolic blood pressure 151 mm[Hg] 151 mm[Hg] A THENA ([facility]) Body height 66 [in_i] 66 [in_i] POLO ([facility]) Diastolic blood pressure 77 mm[Hg] 77 mm[Hg] POLO ([facility]) Systolic blood pressure 151 mm[Hg] 151 mm[Hg] A THENA ([facility]) Body height 66 [in_i] 66 [in_i] POLO ([facility]) Diastolic blood pressure 77 mm[Hg] 77 mm[Hg] POLO ([facility]) Systolic blood pressure 151 mm[Hg] 151 mm[Hg] A THENA ([facility]) Body height 66 [in_i] 66 [in_i] POLO ([facility]) Diastolic blood pressure 77 mm[Hg] 77 mm[Hg] POLO ([facility]) Systolic blood pressure 151 mm[Hg] 151 mm[Hg] A THENA ([facility]) Body height 66 [in_i] 66 [in_i] POLO ([facility]) Diastolic blood pressure 77 mm[Hg] 77 mm[Hg] POLO ([facility]) Systolic blood pressure 151 mm[Hg] 151 mm[Hg] A THENA ([facility]) Body height 66 [in_i] 66 [in_i] POLO ([facility]) Diastolic blood pressure 77 mm[Hg] 77 mm[Hg] POLO ([facility]) Systolic blood pressure 151 mm[Hg] 151 mm[Hg] A THENA ([facility]) Body height 66 [in_i] 66 [in_i] POLO ([facility]) Diastolic blood pressure 77 mm[Hg] 77 mm[Hg] POLO ([facility]) Systolic blood pressure 151 mm[Hg] 151 mm[Hg] A THENA ([facility]) Body height 66 [in_i] 66 [in_i] POLO ([facility]) Diastolic blood pressure 77 mm[Hg] 77 mm[Hg] POLO ([facility]) Systolic blood pressure 151 mm[Hg] 151 mm[Hg] A THENA ([facility]) Body height 66 [in_i] 66 [in_i] POLO ([facility]) Diastolic blood pressure 77 mm[Hg] 77 mm[Hg] POLO ([facility]) Systolic blood pressure 151 mm[Hg] 151 mm[Hg] A THENA ([facility]) Body height 66 [in_i] 66 [in_i] POLO ([facility]) Diastolic blood pressure 77 mm[Hg] 77 mm[Hg] POLO ([facility]) Systolic blood pressure 151 mm[Hg] 151 mm[Hg] A THENA ([facility]) Body height 66 [in_i] 66 [in_i] POLO ([facility]) Diastolic blood pressure 77 mm[Hg] 77 mm[Hg] POLO ([facility]) Systolic blood pressure 151 mm[Hg] 151 mm[Hg] A THENA ([facility]) Body height 66 [in_i] 66 [in_i] POLO ([facility]) Diastolic blood pressure 77 mm[Hg] 77 mm[Hg] POLO ([facility]) Systolic blood pressure 151 mm[Hg] 151 mm[Hg] A THENA ([facility]) Body height 66 [in_i] 66 [in_i] POLO ([facility]) Diastolic blood pressure 77 mm[Hg] 77 mm[Hg] POLO ([facility]) Systolic blood pressure 151 mm[Hg] 151 mm[Hg] A THENA ([facility]) Body height 66 [in_i] 66 [in_i] POLO ([facility]) Diastolic blood pressure 77 mm[Hg] 77 mm[Hg] POLO ([facility]) Systolic blood pressure 151 mm[Hg] 151 mm[Hg] A THENA ([facility]) Body height 66 [in_i] 66 [in_i] POLO ([facility]) Diastolic blood pressure 77 mm[Hg] 77 mm[Hg] POLO ([facility]) Systolic blood pressure 151 mm[Hg] 151 mm[Hg] A THENA ([facility]) Body height 66 [in_i] 66 [in_i] POLO ([facility]) Diastolic blood pressure 77 mm[Hg] 77 mm[Hg] POLO ([facility]) Systolic blood pressure 151 mm[Hg] 151 mm[Hg] A THENA ([facility]) Body height 66 [in_i] 66 [in_i] POLO ([facility]) Diastolic blood pressure 77 mm[Hg] 77 mm[Hg] POLO ([facility]) Systolic blood pressure 151 mm[Hg] 151 mm[Hg] A THENA ([facility]) Body height 66 [in_i] 66 [in_i] POLO ([facility]) Diastolic blood pressure 77 mm[Hg] 77 mm[Hg] POLO ([facility]) Systolic blood pressure 151 mm[Hg] 151 mm[Hg] A THENA ([facility]) Body height 66 [in_i] 66 [in_i] POLO ([facility]) Diastolic blood pressure 77 mm[Hg] 77 mm[Hg] POLO ([facility]) Systolic blood pressure 151 mm[Hg] 151 mm[Hg] A THENA ([facility]) Body height 66 [in_i] 66 [in_i] POLO ([facility]) Diastolic blood pressure 77 mm[Hg] 77 mm[Hg] POLO ([facility]) Systolic blood pressure 151 mm[Hg] 151 mm[Hg] A THENA ([facility]) Body height 66 [in_i] 66 [in_i] POLO ([facility]) Diastolic blood pressure 77 mm[Hg] 77 mm[Hg] POLO ([facility]) Systolic blood pressure 151 mm[Hg] 151 mm[Hg] A THENA ([facility]) Body height 66 [in_i] 66 [in_i] POLO ([facility]) Diastolic blood pressure 77 mm[Hg] 77 mm[Hg] POLO ([facility]) Systolic blood pressure 151 mm[Hg] 151 mm[Hg] A THENA ([facility]) Body height 66 [in_i] 66 [in_i] POLO ([facility]) Diastolic blood pressure 77 mm[Hg] 77 mm[Hg] POLO ([facility]) Diastolic blood pressure 63 mm[Hg] 63 mm[Hg] eCW1 ([facility]) Systolic blood pressure 145 mm[Hg] 145 mm[Hg] e CW1 ([facility]) Body temperature 96.9 [degF] 96.9 [degF] eCW1 ( [facility]) Respiratory rate 18 /min 18 /min eCW1 (Replaced by [facility]) Heart rate 62 /min 62 /min eCW1 ([facility]) Body mass index (BMI) [Ratio] 22.23 kg/m2 22.23 kg/m2 W1 ([facility]) Body height 65 [in_us] 65 [in_us] eCW1 ([facility]) Body weight Measured 133.6 [lb_av] 133.6 [lb_av ] eCW1 ([facility]) Body weight 61.690 kg 61.690 kg [facility] Body mass index (BMI) [Ratio] 21.9 kg/m2 21.9 k g/m2 [facility] ([facility]) Body weight 136.00 [lb_av] 136.00 [lb_av] MEDEN T ([facility]) Body height 66 [in_i] 66 [in_i] [facility] 5'6" Oxygen saturation in Arterial blood by Pulse oximetry 94 % 94 % [facility] ([facility]) Heart rate 65 /min 65 /min [facility] ([facility]) Diastolic blood pressure 80 mm[Hg] 80 mm[Hg] [facility] ([facility]) Systolic blood pressure 119 mm[Hg] 119 mm[Hg] M EDENT ([facility]) Diastolic blood pressure 70 mm[Hg] 70 mm[Hg] eCW1 ([facility]) Systolic blood pressure 160 mm[Hg] 160 mm[Hg] e CW1 ([facility]) Body temperature 97.6 [degF] 97.6 [degF] eCW1 ( [facility]) Respiratory rate 18 /min 18 /min eCW1 (Replaced by [facility]) Heart rate 75 /min 75 /min eCW1 ([facility]) Body mass index (BMI) [Ratio] 22.63 kg/m2 22.63 kg/m2 eCW1 ([facility]) Body height 65 [in_us] 65 [in_us] eCW1 ([facility]) Body weight Measured 136 [lb_av] 136 [lb_av] eC W1 ([facility]) Patient Treatment Plan of Care Planned Activity Planned Date Details Description Data Source (s) Ciprofloxacin 500 MG Oral Tablet 12/29/2019 12:00:00 AM EST eCW1 ([facility]) Ciprofloxacin 500 MG Oral Tablet 12/29/2019 12:00:00 AM EST eCW1 ([facility]) Ciprofloxacin 500 MG Oral Tablet 12/29/2019 12:00:00 AM EST eCW1 ([facility]) Ciprofloxacin 500 MG Oral Tablet 12/29/2019 12:00:00 AM EST eCW1 ([facility]) Ciprofloxacin 500 MG Oral Tablet 12/29/2019 12:00:00 AM EST eCW1 ([facility]) tizanidine 4 MG Oral Tablet 12/13/2019 12:00:00 AM EDT eCW1 ([facility]) Sulfamethoxazole 800 MG / Trimethoprim 160 MG Oral Tab let [Bactrim] 12/13/2019 12:00:00 AM EDT eCW1 ([facility]) tizanidine 4 MG Oral Tablet 12/13/2019 12:00:00 AM EDT eCW1 ([facility]) Sulfamethoxazole 800 MG / Trimethoprim 160 MG Oral Tab let [Bactrim] 12/13/2019 12:00:00 AM EDT eCW1 ([facility]) tizanidine 4 MG Oral Tablet 12/13/2019 12:00:00 AM EDT eCW1 ([facility]) Sulfamethoxazole 800 MG / Trimethoprim 160 MG Oral Tab let [Bactrim] 12/13/2019 12:00:00 AM EDT eCW1 ([facility]) tizanidine 4 MG Oral Tablet 12/13/2019 12:00:00 AM EDT eCW1 ([facility]) Sulfamethoxazole 800 MG / Trimethoprim 160 MG Oral Tab let [Bactrim] 12/13/2019 12:00:00 AM EDT eCW1 ([facility]) tizanidine 4 MG Oral Tablet 12/13/2019 12:00:00 AM EDT eCW1 ([facility]) Sulfamethoxazole 800 MG / Trimethoprim 160 MG Oral Tab let [Bactrim] 12/13/2019 12:00:00 AM EDT eCW1 ([facility]) tizanidine 4 MG Oral Tablet 12/13/2019 12:00:00 AM EDT eCW1 ([facility]) Sulfamethoxazole 800 MG / Trimethoprim 160 MG Oral Tab let [Bactrim] 12/13/2019 12:00:00 AM EDT eCW1 ([facility]) tizanidine 4 MG Oral Tablet 12/13/2019 12:00:00 AM EDT eCW1 ([facility]) Sulfamethoxazole 800 MG / Trimethoprim 160 MG Oral Tab let [Bactrim] 12/13/2019 12:00:00 AM EDT eCW1 ([facility]) Alprazolam 0.5 MG Oral Tablet 07/14/2019 12:00:00 AM EDT eCW1 ([facility]) Alprazolam 0.5 MG Oral Tablet 07/14/2019 12:00:00 AM EDT eCW1 ([facility]) Lidocaine Hydrochloride 0.02 MG/MG Topical Gel 04/19/2019 12:00:00 AM EST eCW1 ([facility]) pantoprazole 20 MG Delayed Release Oral Tablet 04/11/2019 12:00:00 AM EST eCW1 ([facility]) Prednisone 20 MG Oral Tablet 03/31/2019 12:00:00 AM EST eCW1 ([facility]) Doxycycline Monohydrate 100 MG Oral Capsule 03/31/2019 12:00:00 AM EST eCW1 ([facility]) Omeprazole 20 MG Delayed Release Oral Tablet 03/31/2019 12:00:00 AM EST eCW1 ([facility]) gabapentin 400 MG Oral Capsule 02/28/2019 12:00:00 AM EST eCW1 ([facility]) gabapentin 400 MG Oral Capsule 02/28/2019 12:00:00 AM EST eCW1 ([facility]) gabapentin 400 MG Oral Capsule 02/28/2019 12:00:00 AM EST eCW1 ([facility]) Famotidine 40 MG Oral Tablet 02/21/2019 12:00:00 AM EST eCW1 ([facility]) Doxycycline Monohydrate 100 MG Oral Capsule 01/21/2019 12:00:00 AM EST eCW1 ([facility]) Prednisone 20 MG Oral Tablet 01/21/2019 12:00:00 AM EST eCW1 ([facility]) Trazodone Hydrochloride 50 MG Oral Tablet POLO ([facility]) topiramate 100 mg tabs ATHE NA ([facility]) tizanidine hydrochloride 4 mg tabs POLO ([facility]) Sulfamethoxazole 800 MG / Trimethoprim 160 MG Oral Tablet POLO ([facility]) Ranitidine 150 MG Oral Tablet POLO ([facility]) Prednisone 20 MG Oral Tablet POLO ([facility]) prednisone 20 mg tabs ATHEN A ([facility]) Phenazopyridine hydrochloride 200 MG Oral Tablet POLO ([facility]) paroxetine hcl 30 mg tabs A THENA ([facility]) pantoprazole sodium 20 mg tbec POLO ([facility]) pantoprazole 20 MG Delayed Release Oral Tablet POLO ([facility]) Omeprazole 20 MG Delayed Release Oral Capsule POLO ([facility]) omeprazole 20 mg cpdr ATHEN A ([facility]) Nortriptyline 25 MG Oral Capsule POLO ([facility]) NITROFURANTOIN, MACROCRYSTALS 25 MG / Ni trofurantoin, Monohydrate 75 MG Oral Capsule [facility] methylprednisolone dose pack 4 mg tbpk POLO ([facility]) methylprednisolone 4 mg tablets in a dose pack POLO ([facility]) lidocaine hcl jelly 2 % gel POLO ([facility]) Lidocaine Hydrochloride 0.02 MG/MG Topical Gel POLO ([facility]) lidocaine 5 % topical patch POLO ([facility]) ipratropium/ tiff albuter ATH MIREYA ([facility]) Albuterol 0.833 MG/ML / Ipratropium [place] 0.167 MG/ML Inhalant So lution POLO ([facility]) Acetaminophen 325 MG / Hydrocodone Bitartrate 5 MG Oral Tablet POLO ([facility]) hydroco/apap tab 5-325mg ATH MIREYA ([facility]) gabapentin 400 mg caps ATHE NA ([facility]) gabapentin 300 mg caps ATHE NA ([facility]) Fluzone Quad [id number] (PF) 60 mcg (15 m cg x 4)/0.5 mL IM suspension INJECT DIRECTED POLO ([facility]) Famotidine 40 MG Oral Tablet POLO ([facility]) famotidine 40 mg tabs ATHEN A ([facility]) ezetimibe 10 mg tabs POLO ([facility]) Doxycycline Monohydrate 100 MG Oral Capsule POLO ([facility]) doxycycline monohydrate 100 mg caps POLO ([facility]) Cyclobenzaprine hydrochloride 10 MG Oral Tablet POLO ([facility]) clopidogrel 75 mg tabs ATHE NA ([facility]) Carisoprodol 350 MG Oral Tablet POLO ([facility]) carisoprodol 350 mg tabs AT JHONATAN ([facility]) atorvastatin calcium 80 mg tabs POLO ([facility]) fluticasone furoate 0.2 MG/ACTUAT Dry Powder Inhaler POLO ([facility]) Alprazolam 0.5 MG Oral Tablet POLO ([facility]) alprazolam 0.5 mg tabs ATHE NA ([facility]) albuterol sulfate HFA 90 mcg/actuation a erosol inhaler INHALE TWO PUFFS BY MOUTH FOUR TIMES A DAY NEEDED ATHE NA ([facility]) famotidine 40 mg tabs ATHEN A ([facility]) ezetimibe 10 mg tabs POLO ([facility]) Doxycycline Monohydrate 100 MG Oral Capsule POLO ([facility]) doxycycline monohydrate 100 mg caps POLO ([facility]) Cyclobenzaprine hydrochloride 10 MG Oral Tablet POLO ([facility]) clopidogrel 75 mg tabs ATHE NA ([facility]) Carisoprodol 350 MG Oral Tablet POLO ([facility]) carisoprodol 350 mg tabs AT JHONATAN ([facility]) atorvastatin calcium 80 mg tabs POLO ([facility]) fluticasone furoate 0.2 MG/ACTUAT Dry Powder Inhaler POLO ([facility]) umeclidinium 0.0625 MG/ACTUAT / vilanterol 0.025 MG/ACTUAT D ry Powder Inhaler POLO ([facility]) Alprazolam 0.5 MG Oral Tablet POLO ([facility]) alprazolam 0.5 mg tabs ATHE NA ([facility]) Trazodone Hydrochloride 50 MG Oral Tablet POLO ([facility]) topiramate 100 mg tabs ATHE NA ([facility]) tizanidine hydrochloride 4 mg tabs POLO ([facility]) Sulfamethoxazole 800 MG / Trimethoprim 160 MG Oral Tablet POLO ([facility]) Ranitidine 150 MG Oral Tablet POLO ([facility]) Prednisone 20 MG Oral Tablet POLO ([facility]) prednisone 20 mg tabs ATHEN A ([facility]) Phenazopyridine hydrochloride 200 MG Oral Tablet POLO ([facility]) paroxetine hcl 30 mg tabs A THENA ([facility]) pantoprazole sodium 20 mg tbec POLO ([facility]) pantoprazole 20 MG Delayed Release Oral Tablet POLO ([facility]) Omeprazole 20 MG Delayed Release Oral Capsule POLO ([facility]) omeprazole 20 mg cpdr ATHEN A ([facility]) Nortriptyline 25 MG Oral Capsule POLO ([facility]) NITROFURANTOIN, MACROCRYSTALS 25 MG / Ni trofurantoin, Monohydrate 75 MG Oral Capsule [facility]O [facility] methylprednisolone dose pack 4 mg tbpk POLO ([facility]) methylprednisolone 4 mg tablets in a dose pack POLO ([facility]) lidocaine hcl jelly 2 % gel POLO ([facility]) Lidocaine Hydrochloride 0.02 MG/MG Topical Gel POLO ([facility]) lidocaine 5 % topical patch POLO ([facility]) ipratropium/ tiff albuter ATH MIREYA ([facility]) Albuterol 0.833 MG/ML / Ipratropium [place] 0.167 MG/ML Inhalant So lution POLO ([facility]) Acetaminophen 325 MG / Hydrocodone Bitartrate 5 MG Oral Tablet POLO ([facility]) hydroco/apap tab 5-325mg ATH MIREYA ([facility]) gabapentin 400 mg caps ATHE NA ([facility]) gabapentin 300 mg caps ATHE NA ([facility]) Famotidine 40 MG Oral Tablet POLO ([facility]) famotidine 40 mg tabs ATHEN A ([facility]) ezetimibe 10 mg tabs POLO ([facility]) Doxycycline Monohydrate 100 MG Oral Capsule POLO ([facility]) doxycycline monohydrate 100 mg caps POLO ([facility]) Cyclobenzaprine hydrochloride 10 MG Oral Tablet POLO ([facility]) clopidogrel 75 mg tabs ATHE NA ([facility]) Carisoprodol 350 MG Oral Tablet POLO ([facility]) carisoprodol 350 mg tabs AT JHONATAN ([facility]) atorvastatin calcium 80 mg tabs POLO ([facility]) fluticasone furoate 0.2 MG/ACTUAT Dry Powder Inhaler POLO ([facility]) umeclidinium 0.0625 MG/ACTUAT / vilanterol 0.025 MG/ACTUAT D ry Powder Inhaler POLO ([facility]) Alprazolam 0.5 MG Oral Tablet POLO ([facility]) alprazolam 0.5 mg tabs ATHE NA ([facility]) Trazodone Hydrochloride 50 MG Oral Tablet POLO ([facility]) topiramate 100 mg tabs ATHE NA ([facility]) tizanidine hydrochloride 4 mg tabs POLO ([facility]) Sulfamethoxazole 800 MG / Trimethoprim 160 MG Oral Tablet POLO ([facility]) Ranitidine 150 MG Oral Tablet POLO ([facility]) Prednisone 20 MG Oral Tablet POLO ([facility]) prednisone 20 mg tabs ATHEN A ([facility]) Phenazopyridine hydrochloride 200 MG Oral Tablet POLO ([facility]) paroxetine hcl 30 mg tabs A THENA ([facility]) pantoprazole sodium 20 mg tbec POLO ([facility]) pantoprazole 20 MG Delayed Release Oral Tablet POLO ([facility]) Omeprazole 20 MG Delayed Release Oral Capsule POLO ([facility]) omeprazole 20 mg cpdr ATHEN A ([facility]) Nortriptyline 25 MG Oral Capsule POLO ([facility]) NITROFURANTOIN, MACROCRYSTALS 25 MG / Ni trofurantoin, Monohydrate 75 MG Oral Capsule POLO ([facility]) methylprednisolone dose pack 4 mg tbpk POLO ([facility]) methylprednisolone 4 mg tablets in a dose pack POLO ([facility]) lidocaine hcl jelly 2 % gel POLO ([facility]) Lidocaine Hydrochloride 0.02 MG/MG Topical Gel POLO ([facility]) lidocaine 5 % topical patch POLO ([facility]) ipratropium/ tiff albuter ATH MIREYA ([facility]) Albuterol 0.833 MG/ML / Ipratropium [place] 0.167 MG/ML Inhalant So lution POLO ([facility]) Acetaminophen 325 MG / Hydrocodone Bitartrate 5 MG Oral Tablet POLO ([facility]) hydroco/apap tab 5-325mg ATH MIREYA ([facility]) Cyclobenzaprine hydrochloride 10 MG Oral Tablet POLO ([facility]) clopidogrel 75 mg tabs ATHE NA ([facility]) Carisoprodol 350 MG Oral Tablet POLO ([facility]) carisoprodol 350 mg tabs AT JHONATAN ([facility]) atorvastatin calcium 80 mg tabs POLO ([facility]) fluticasone furoate 0.2 MG/ACTUAT Dry Powder Inhaler POLO ([facility]) umeclidinium 0.0625 MG/ACTUAT / vilanterol 0.025 MG/ACTUAT D ry Powder Inhaler POLO ([facility]) Alprazolam 0.5 MG Oral Tablet OPLO ([facility]) alprazolam 0.5 mg tabs ATHE NA ([facility]) Trazodone Hydrochloride 50 MG Oral Tablet POLO ([facility]) topiramate 100 mg tabs ATHE NA ([facility]) tizanidine hydrochloride 4 mg tabs POLO ([facility]) Ranitidine 150 MG Oral Tablet POLO ([facility]) Prednisone 20 MG Oral Tablet POLO ([facility]) paroxetine hcl 30 mg tabs A THENA ([facility]) pantoprazole sodium 20 mg tbec POLO ([facility]) omeprazole 20 mg cpdr ATHEN A ([facility]) Nortriptyline 25 MG Oral Capsule POLO ([facility]) methylprednisolone dose pack 4 mg tbpk POLO ([facility]) lidocaine hcl jelly 2 % gel POLO ([facility]) Lidocaine Hydrochloride 0.02 MG/MG Topical Gel POLO ([facility]) ipratropium/ tiff albuter ATH MIREYA ([facility]) Acetaminophen 325 MG / Hydrocodone Bitartrate 5 MG Oral Tablet POLO ([facility]) hydroco/apap tab 5-325mg ATH MIREYA ([facility]) gabapentin 400 mg caps ATHE NA ([facility]) gabapentin 300 mg caps ATHE NA ([facility]) famotidine 40 mg tabs ATHEN A ([facility]) ezetimibe 10 mg tabs POLO ([facility]) doxycycline monohydrate 100 mg caps POLO ([facility]) clopidogrel 75 mg tabs ATHE NA ([facility]) Carisoprodol 350 MG Oral Tablet POLO ([facility]) carisoprodol 350 mg tabs AT JHONATAN ([facility]) atorvastatin calcium 80 mg tabs POLO ([facility]) Trazodone Hydrochloride 50 MG Oral Tablet POLO ([facility]) Trazodone Hydrochloride 50 MG Oral Tablet POLO ([facility]) topiramate 100 mg tabs ATHE NA ([facility]) tizanidine hydrochloride 4 mg tabs POLO ([facility]) Sulfamethoxazole 800 MG / Trimethoprim 160 MG Oral Tablet POLO ([facility]) Ranitidine 150 MG Oral Tablet POLO ([facility]) Prednisone 20 MG Oral Tablet POLO ([facility]) prednisone 20 mg tabs ATHEN A ([facility]) Phenazopyridine hydrochloride 200 MG Oral Tablet POLO ([facility]) paroxetine hcl 30 mg tabs A THENA ([facility]) pantoprazole sodium 20 mg tbec POLO ([facility]) pantoprazole 20 MG Delayed Release Oral Tablet POLO ([facility]) Omeprazole 20 MG Delayed Release Oral Capsule POLO ([facility]) omeprazole 20 mg cpdr ATHEN A ([facility]) Nortriptyline 25 MG Oral Capsule POLO ([facility]) NITROFURANTOIN, MACROCRYSTALS 25 MG / Ni trofurantoin, Monohydrate 75 MG Oral Capsule POLO ([facility]) methylprednisolone dose pack 4 mg tbpk POLO ([facility]) methylprednisolone 4 mg tablets in a dose pack POLO ([facility]) lidocaine hcl jelly 2 % gel POLO ([facility]) Lidocaine Hydrochloride 0.02 MG/MG Topical Gel POLO ([facility]) lidocaine 5 % topical patch POLO ([facility]) ipratropium/ tiff albuter ATH MIREYA ([facility]) Albuterol 0.833 MG/ML / Ipratropium [place] 0.167 MG/ML Inhalant So lution POLO ([facility]) Acetaminophen 325 MG / Hydrocodone Bitartrate 5 MG Oral Tablet POLO ([facility]) hydroco/apap tab 5-325mg ATH MIREYA ([facility]) gabapentin 400 mg caps ATHE NA ([facility]) gabapentin 300 mg caps ATHE NA ([facility]) Fluzone Quad [id number] (PF) 60 mcg (15 m cg x 4)/0.5 mL IM suspension INJECT DIRECTED POLO ([facility]) Famotidine 40 MG Oral Tablet POLO ([facility]) famotidine 40 mg tabs ATHEN A ([facility]) ezetimibe 10 mg tabs POLO ([facility]) Doxycycline Monohydrate 100 MG Oral Capsule POLO ([facility]) doxycycline monohydrate 100 mg caps POLO ([facility]) Cyclobenzaprine hydrochloride 10 MG Oral Tablet POLO ([facility]) clopidogrel 75 mg tabs ATHE NA ([facility]) Carisoprodol 350 MG Oral Tablet POLO ([facility]) carisoprodol 350 mg tabs AT JHONATAN ([facility]) atorvastatin calcium 80 mg tabs POLO ([facility]) fluticasone furoate 0.2 MG/ACTUAT Dry Powder Inhaler POLO ([facility]) umeclidinium 0.0625 MG/ACTUAT / vilanterol 0.025 MG/ACTUAT D ry Powder Inhaler POLO ([facility]) Alprazolam 0.5 MG Oral Tablet POLO ([facility]) alprazolam 0.5 mg tabs ATHE NA ([facility]) albuterol sulfate HFA 90 mcg/actuation a erosol inhaler INHALE TWO PUFFS BY MOUTH FOUR TIMES A DAY NEEDED ATHE NA ([facility]) Trazodone Hydrochloride 50 MG Oral Tablet POLO ([facility]) topiramate 100 mg tabs ATHE NA ([facility]) tizanidine hydrochloride 4 mg tabs POLO ([facility]) Sulfamethoxazole 800 MG / Trimethoprim 160 MG Oral Tablet POLO ([facility]) Ranitidine 150 MG Oral Tablet POLO ([facility]) Prednisone 20 MG Oral Tablet POLO ([facility]) prednisone 20 mg tabs ATHEN A ([facility]) Phenazopyridine hydrochloride 200 MG Oral Tablet POLO ([facility]) paroxetine hcl 30 mg tabs A THENA ([facility]) pantoprazole sodium 20 mg tbec POLO ([facility]) pantoprazole 20 MG Delayed Release Oral Tablet POLO ([facility]) Omeprazole 20 MG Delayed Release Oral Capsule POLO ([facility]) omeprazole 20 mg cpdr ATHEN A ([facility]) Nortriptyline 25 MG Oral Capsule POLO ([facility]) NITROFURANTOIN, MACROCRYSTALS 25 MG / Ni trofurantoin, Monohydrate 75 MG Oral [facility]ule PLOO [facility] methylprednisolone dose pack 4 mg tbpk POLO ([facility]) methylprednisolone 4 mg tablets in a dose pack POLO ([facility]) lidocaine hcl jelly 2 % gel POLO ([facility]) Lidocaine Hydrochloride 0.02 MG/MG Topical Gel POLO ([facility]) lidocaine 5 % topical patch POLO ([facility]) ipratropium/ tiff albuter ATH MIREYA ([facility]) Albuterol 0.833 MG/ML / Ipratropium [place] 0.167 MG/ML Inhalant So lution POLO ([facility]) Acetaminophen 325 MG / Hydrocodone Bitartrate 5 MG Oral Tablet POLO ([facility]) hydroco/apap tab 5-325mg ATH MIREYA ([facility]) gabapentin 400 mg caps ATHE NA ([facility]) gabapentin 300 mg caps ATHE NA ([facility]) Famotidine 40 MG Oral Tablet POLO ([facility]) alprazolam 0.5 mg tabs ATHE NA ([facility]) Trazodone Hydrochloride 50 MG Oral Tablet POLO ([facility]) topiramate 100 mg tabs ATHE NA ([facility]) tizanidine hydrochloride 4 mg tabs POLO ([facility]) Ranitidine 150 MG Oral Tablet POLO ([facility]) Prednisone 20 MG Oral Tablet POLO ([facility]) paroxetine hcl 30 mg tabs A THENA ([facility]) pantoprazole sodium 20 mg tbec POLO ([facility]) omeprazole 20 mg cpdr ATHEN A ([facility]) Nortriptyline 25 MG Oral Capsule POLO ([facility]) methylprednisolone dose pack 4 mg tbpk POLO ([facility]) lidocaine hcl jelly 2 % gel POLO ([facility]) Lidocaine Hydrochloride 0.02 MG/MG Topical Gel POLO ([facility]) ipratropium/ tiff albuter ATH MIREYA ([facility]) Acetaminophen 325 MG / Hydrocodone Bitartrate 5 MG Oral Tablet POLO ([facility]) hydroco/apap tab 5-325mg ATH MIREYA ([facility]) Trazodone Hydrochloride 50 MG Oral Tablet POLO ([facility]) topiramate 100 mg tabs ATHE NA ([facility]) tizanidine hydrochloride 4 mg tabs POLO ([facility]) tizanidine 4 MG Oral Tablet POLO ([facility]) Ranitidine 150 MG Oral Tablet POLO ([facility]) Prednisone 20 MG Oral Tablet POLO ([facility]) paroxetine hcl 30 mg tabs A THENA ([facility]) pantoprazole sodium 20 mg tbec POLO ([facility]) omeprazole 20 mg cpdr ATHEN A ([facility]) Nortriptyline 25 MG Oral Capsule POLO ([facility]) methylprednisolone dose pack 4 mg tbpk POLO ([facility]) lidocaine hcl jelly 2 % gel POLO ([facility]) Lidocaine Hydrochloride 0.02 MG/MG Topical Gel POLO ([facility]) ipratropium/ tiff albuter ATH MIREYA ([facility]) Acetaminophen 325 MG / Hydrocodone Bitartrate 5 MG Oral Tablet POLO ([facility]) hydroco/apap tab 5-325mg ATH MIREYA ([facility]) gabapentin 400 mg caps ATHE NA ([facility]) gabapentin 300 mg caps ATHE NA ([facility]) famotidine 40 mg tabs ATHEN A ([facility]) ezetimibe 10 mg tabs POLO ([facility]) doxycycline monohydrate 100 mg caps POLO ([facility]) clopidogrel 75 mg tabs ATHE NA ([facility]) Carisoprodol 350 MG Oral Tablet POLO ([facility]) carisoprodol 350 mg tabs AT JHONATAN ([facility]) atorvastatin calcium 80 mg tabs POLO ([facility]) alprazolam 0.5 mg tabs ATHE NA ([facility]) Trazodone Hydrochloride 50 MG Oral Tablet POLO ([facility]) topiramate 100 mg tabs ATHE NA ([facility]) tizanidine hydrochloride 4 mg tabs POLO ([facility]) tizanidine 4 MG Oral Tablet POLO ([facility]) Ranitidine 150 MG Oral Tablet POLO ([facility]) Prednisone 20 MG Oral Tablet POLO ([facility]) paroxetine hcl 30 mg tabs A THENA ([facility]) pantoprazole sodium 20 mg tbec POLO ([facility]) omeprazole 20 mg cpdr ATHEN A ([facility]) Nortriptyline 25 MG Oral Capsule POLO ([facility]) methylprednisolone dose pack 4 mg tbpk POLO ([facility]) topiramate 100 mg tabs ATHE NA ([facility]) tizanidine hydrochloride 4 mg tabs POLO ([facility]) Sulfamethoxazole 800 MG / Trimethoprim 160 MG Oral Tablet POLO ([facility]) Ranitidine 150 MG Oral Tablet POLO ([facility]) Prednisone 20 MG Oral Tablet POLO ([facility]) prednisone 20 mg tabs ATHEN A ([facility]) Phenazopyridine hydrochloride 200 MG Oral Tablet POLO ([facility]) paroxetine hcl 30 mg tabs A THENA ([facility]) pantoprazole sodium 20 mg tbec POLO ([facility]) pantoprazole 20 MG Delayed Release Oral Tablet POLO ([facility]) lidocaine 5 % topical patch POLO ([facility]) ipratropium/ tiff albuter ATH MIREYA ([facility]) Albuterol 0.833 MG/ML / Ipratropium [place] 0.167 MG/ML Inhalant So lution POLO ([facility]) Acetaminophen 325 MG / Hydrocodone Bitartrate 5 MG Oral Tablet POLO ([facility]) hydroco/apap tab 5-325mg ATH MIREYA ([facility]) gabapentin 400 mg caps ATHE NA ([facility]) gabapentin 300 mg caps ATHE NA ([facility]) Fluzone Quad [id number] (PF) 60 mcg (15 m cg x 4)/0.5 mL IM suspension [facility]JECT DIRECTED [facility] Famotidine 40 MG Oral Tablet POLO ([facility]) famotidine 40 mg tabs ATHEN A ([facility]) ezetimibe 10 mg tabs POLO ([facility]) Doxycycline Monohydrate 100 MG Oral Capsule POLO ([facility]) doxycycline monohydrate 100 mg caps POLO ([facility]) Cyclobenzaprine hydrochloride 10 MG Oral Tablet POLO ([facility]) clopidogrel 75 mg tabs ATHE NA ([facility]) Carisoprodol 350 MG Oral Tablet POLO ([facility]) carisoprodol 350 mg tabs AT JHONATAN ([facility]) atorvastatin calcium 80 mg tabs POLO ([facility]) fluticasone furoate 0.2 MG/ACTUAT Dry Powder Inhaler POLO ([facility]) umeclidinium 0.0625 MG/ACTUAT / vilanterol 0.025 MG/ACTUAT D ry Powder Inhaler POLO ([facility]) Alprazolam 0.5 MG Oral Tablet POLO ([facility]) alprazolam 0.5 mg tabs ATHE NA ([facility]) albuterol sulfate HFA 90 mcg/actuation a erosol inhaler INHALE TWO PUFFS BY MOUTH FOUR TIMES A DAY NEEDED ATHE NA ([facility]) gabapentin 400 mg caps ATHE NA ([facility]) gabapentin 300 mg caps ATHE NA ([facility]) Famotidine 40 MG Oral Tablet POLO ([facility]) famotidine 40 mg tabs ATHEN A ([facility]) ezetimibe 10 mg tabs POLO ([facility]) Doxycycline Monohydrate 100 MG Oral Capsule POLO ([facility]) doxycycline monohydrate 100 mg caps POLO ([facility]) Cyclobenzaprine hydrochloride 10 MG Oral Tablet POLO ([facility]) clopidogrel 75 mg tabs ATHE NA ([facility]) Carisoprodol 350 MG Oral Tablet POLO ([facility]) carisoprodol 350 mg tabs AT JHONATAN ([facility]) atorvastatin calcium 80 mg tabs POLO ([facility]) fluticasone furoate 0.2 MG/ACTUAT Dry Powder Inhaler POLO ([facility]) umeclidinium 0.0625 MG/ACTUAT / vilanterol 0.025 MG/ACTUAT D ry Powder Inhaler POLO ([facility]) Alprazolam 0.5 MG Oral Tablet POLO ([facility]) alprazolam 0.5 mg tabs ATHE NA ([facility]) Trazodone Hydrochloride 50 MG Oral Tablet POLO ([facility]) topiramate 100 mg tabs ATHE NA ([facility]) tizanidine hydrochloride 4 mg tabs POLO ([facility]) Sulfamethoxazole 800 MG / Trimethoprim 160 MG Oral Tablet POLO ([facility]) Ranitidine 150 MG Oral Tablet POLO ([facility]) Prednisone 20 MG Oral Tablet POLO ([facility]) prednisone 20 mg tabs ATHEN A ([facility]) Phenazopyridine hydrochloride 200 MG Oral Tablet PLOO ([facility]) paroxetine hcl 30 mg tabs A THENA ([facility]) pantoprazole sodium 20 mg tbec POLO ([facility]) pantoprazole 20 MG Delayed Release Oral Tablet POLO ([facility]) Omeprazole 20 MG Delayed Release Oral Capsule POLO ([facility]) omeprazole 20 mg cpdr ATHEN A ([facility]) Nortriptyline 25 MG Oral Capsule POLO ([facility]) NITROFURANTOIN, MACROCRYSTALS 25 MG / Ni trofurantoin, Monohydrate 75 MG Oral Capsule POLO ([facility]) methylprednisolone dose pack 4 mg tbpk POLO ([facility] [facility]) methylprednisolone 4 mg tablets in a dose pack POLO ([facility]) lidocaine hcl jelly 2 % gel POOL ([facility]) Lidocaine Hydrochloride 0.02 MG/MG Topical Gel POLO ([facility]) lidocaine 5 % topical patch POLO ([facility]) ipratropium/ tiff albuter ATH MIREYA ([facility]) Albuterol 0.833 MG/ML / Ipratropium [place] 0.167 MG/ML Inhalant So lution POLO ([facility]) Acetaminophen 325 MG / Hydrocodone Bitartrate 5 MG Oral Tablet POLO ([facility]) hydroco/apap tab 5-325mg ATH MIREYA ([facility]) gabapentin 400 mg caps ATHE NA ([facility]) gabapentin 300 mg caps ATHE NA ([facility]) Famotidine 40 MG Oral Tablet POLO ([facility]) famotidine 40 mg tabs ATHEN A ([facility]) ezetimibe 10 mg tabs POLO ([facility]) Doxycycline Monohydrate 100 MG Oral Capsule POLO ([facility]) doxycycline monohydrate 100 mg caps POLO ([facility]) lidocaine hcl jelly 2 % gel POLO ([facility]) Lidocaine Hydrochloride 0.02 MG/MG Topical Gel POLO ([facility]) ipratropium/ tiff albuter ATH MIREYA ([facility]) Acetaminophen 325 MG / Hydrocodone Bitartrate 5 MG Oral Tablet POLO ([facility]) hydroco/apap tab 5-325mg ATH MIREYA ([facility]) gabapentin 400 mg caps ATHE NA ([facility]) gabapentin 300 mg caps ATHE NA ([facility]) famotidine 40 mg tabs ATHEN A ([facility]) ezetimibe 10 mg tabs POLO ([facility]) doxycycline monohydrate 100 mg caps POLO ([facility]) clopidogrel 75 mg tabs ATHE NA ([facility]) Carisoprodol 350 MG Oral Tablet POLO ([facility]) carisoprodol 350 mg tabs AT JHONATAN ([facility]) atorvastatin calcium 80 mg tabs POLO ([facility]) atorvastatin calcium 80 mg tabs POLO ([facility]) alprazolam 0.5 mg tabs ATHE NA ([facility]) Acetaminophen 325 MG / Hydrocodone Bitartrate 5 MG Oral Tablet POLO ([facility]) hydroco/apap tab 5-325mg ATH MIREYA ([facility]) gabapentin 400 mg caps ATHE NA ([facility]) gabapentin 300 mg caps ATHE NA ([facility]) famotidine 40 mg tabs ATHEN A ([facility]) ezetimibe 10 mg tabs POLO ([facility]) doxycycline monohydrate 100 mg caps POLO ([facility]) clopidogrel 75 mg tabs ATHE NA ([facility]) Carisoprodol 350 MG Oral Tablet POLO ([facility]) carisoprodol 350 mg tabs AT [place] ([facility]) atorvastatin calcium 80 mg tabs POLO ([facility]) alprazolam 0.5 mg tabs ATHE NA ([facility]) Trazodone Hydrochloride 50 MG Oral Tablet POLO ([facility]) topiramate 100 mg tabs ATHE NA ([facility]) tizanidine hydrochloride 4 mg tabs POLO ([facility]) tizanidine 4 MG Oral Tablet POLO ([facility]) Ranitidine 150 MG Oral Tablet POLO ([facility]) Prednisone 20 MG Oral Tablet POLO ([facility]) paroxetine hcl 30 mg tabs A THENA ([facility]) pantoprazole sodium 20 mg tbec POLO ([facility]) omeprazole 20 mg cpdr ATHEN A ([facility]) Nortriptyline 25 MG Oral Capsule POLO ([facility]) Omeprazole 20 MG Delayed Release Oral Capsule POLO ([facility]) omeprazole 20 mg cpdr ATHEN A ([facility]) Nortriptyline 25 MG Oral Capsule POLO ([facility]) NITROFURANTOIN, MACROCRYSTALS 25 MG / Ni trofurantoin, Monohydrate 75 MG Oral Capsule POLO ([facility]) methylprednisolone dose pack 4 mg tbpk POLO ([facility]) methylprednisolone 4 mg tablets in a dose pack POLO ([facility]) lidocaine hcl jelly 2 % gel POLO ([facility]) Lidocaine Hydrochloride 0.02 MG/MG Topical Gel POLO ([facility]) gabapentin 400 mg caps ATHE NA ([facility]) gabapentin 300 mg caps ATHE NA ([facility]) famotidine 40 mg tabs ATHEN A ([facility]) ezetimibe 10 mg tabs POLO ([facility]) doxycycline monohydrate 100 mg caps POLO ([facility]) clopidogrel 75 mg tabs ATHE NA ([facility]) Carisoprodol 350 MG Oral Tablet POLO ([facility]) carisoprodol 350 mg tabs AT [place] ([facility]) atorvastatin calcium 80 mg tabs POLO ([facility]) alprazolam 0.5 mg tabs ATHE NA ([facility]) methylprednisolone dose pack 4 mg tbpk POLO ([facility]) lidocaine hcl jelly 2 % gel POLO ([facility]) Lidocaine Hydrochloride 0.02 MG/MG Topical Gel POLO ([facility]) ipratropium/ tiff albuter ATH MIREYA ([facility]) Acetaminophen 325 MG / Hydrocodone Bitartrate 5 MG Oral Tablet POLO ([facility]) hydroco/apap tab 5-325mg ATH MIREYA ([facility]) gabapentin 400 mg caps ATHE NA ([facility]) gabapentin 300 mg caps ATHE NA ([facility]) famotidine 40 mg tabs ATHEN A ([facility]) ezetimibe 10 mg tabs POLO ([facility]) doxycycline monohydrate 100 mg caps POLO ([facility]) clopidogrel 75 mg tabs ATHE NA ([facility]) Carisoprodol 350 MG Oral Tablet POLO ([facility]) carisoprodol 350 mg tabs AT [place] ([facility]) atorvastatin calcium 80 mg tabs POLO ([facility]) alprazolam 0.5 mg tabs ATHE NA ([facility]) Trazodone Hydrochloride 50 MG Oral Tablet POLO ([facility]) topiramate 100 mg tabs ATHE NA ([facility]) tizanidine hydrochloride 4 mg tabs POLO ([facility]) tizanidine 4 MG Oral Tablet POLO ([facility]) Ranitidine 150 MG Oral Tablet POLO ([facility]) Prednisone 20 MG Oral Tablet POLO ([facility]) paroxetine hcl 30 mg tabs A THENA ([facility]) Ranitidine 150 MG Oral Tablet POLO ([facility]) Ranitidine 150 MG Oral Tablet POLO ([facility]) alprazolam 0.5 mg tabs ATHE NA ([facility]) Trazodone Hydrochloride 50 MG Oral Tablet POLO ([facility]) topiramate 100 mg tabs ATHE NA ([facility]) tizanidine hydrochloride 4 mg tabs POLO ([facility]) tizanidine 4 MG Oral Tablet POLO ([facility]) Ranitidine 150 MG Oral Tablet POLO ([facility]) Prednisone 20 MG Oral Tablet POLO ([facility]) paroxetine hcl 30 mg tabs A THENA ([facility]) pantoprazole sodium 20 mg tbec POLO ([facility]) omeprazole 20 mg cpdr ATHEN A ([facility]) Nortriptyline 25 MG Oral Capsule POLO ([facility]) methylprednisolone dose pack 4 mg tbpk POLO ([facility]) lidocaine hcl jelly 2 % gel POLO ([facility]) Lidocaine Hydrochloride 0.02 MG/MG Topical Gel POLO ([facility]) ipratropium/ tiff albuter ATH MIREYA ([facility]) Acetaminophen 325 MG / Hydrocodone Bitartrate 5 MG Oral Tablet POLO ([facility]) hydroco/apap tab 5-325mg ATH MIREYA ([facility]) gabapentin 400 mg caps ATHE NA ([facility]) gabapentin 300 mg caps ATHE NA ([facility]) famotidine 40 mg tabs ATHEN A ([facility]) ezetimibe 10 mg tabs POLO ([facility]) doxycycline monohydrate 100 mg caps POLO ([facility]) clopidogrel 75 mg tabs ATHE NA ([facility]) Carisoprodol 350 MG Oral Tablet POLO ([facility]) carisoprodol 350 mg tabs AT [place]ON[place] ([facility]) Trazodone Hydrochloride 50 MG Oral Tablet POLO ([facility]) topiramate 100 mg tabs ATHE NA ([facility]) tizanidine hydrochloride 4 mg tabs POLO ([facility]) tizanidine 4 MG Oral Tablet POLO ([facility]) Ranitidine 150 MG Oral Tablet POLO ([facility]) Prednisone 20 MG Oral Tablet POLO ([facility]) paroxetine hcl 30 mg tabs A THENA ([facility]) pantoprazole sodium 20 mg tbec POLO ([facility]) omeprazole 20 mg cpdr ATHEN A ([facility]) Nortriptyline 25 MG Oral Capsule POLO ([facility]) methylprednisolone dose pack 4 mg tbpk POLO ([facility]) lidocaine hcl jelly 2 % gel POLO ([facility]) Lidocaine Hydrochloride 0.02 MG/MG Topical Gel POLO ([facility]) ipratropium/ tiff albuter ATH MIREYA ([facility]) Ranitidine 150 MG Oral Tablet POLO ([facility]) gabapentin 300 MG Oral Capsule POLO ([facility]) gabapentin 100 MG Oral Capsule POLO ([facility]) Baclofen 10 MG Oral Tablet A THENA ([facility]) hydroco/apap tab 5-325mg ATH MIREYA ([facility]) gabapentin 400 mg caps ATHE NA ([facility]) gabapentin 300 mg caps ATHE NA ([facility]) famotidine 40 mg tabs ATHEN A ([facility]) ezetimibe 10 mg tabs POLO ([facility]) doxycycline monohydrate 100 mg caps POLO ([facility]) clopidogrel 75 mg tabs ATHE NA ([facility]) Carisoprodol 350 MG Oral Tablet POLO ([facility]) carisoprodol 350 mg tabs AT [place]HONAT[place] ([facility]) atorvastatin calcium 80 mg tabs POLO ([facility]) alprazolam 0.5 mg tabs ATHE NA ([facility]) Ranitidine 150 MG Oral Tablet POLO ([facility]) Ranitidine 150 MG Oral Tablet POLO ([facility]) Prednisone 20 MG Oral Tablet POLO ([facility]) methylprednisolone 4 mg tablets in a dose pack POLO ([facility]) gabapentin 300 MG Oral Capsule POLO ([facility]) gabapentin 100 MG Oral Capsule POLO ([facility]) Doxycycline Monohydrate 100 MG Oral Capsule POLO ([facility]) Baclofen 10 MG Oral Tablet A THENA ([facility]) fluticasone furoate 0.2 MG/ACTUAT Dry Powder Inhaler POLO ([facility]) umeclidinium 0.0625 MG/ACTUAT / vilanterol 0.025 MG/ACTUAT D ry Powder Inhaler POLO ([facility]) Ranitidine 150 MG Oral Tablet POLO ([facility]) Prednisone 20 MG Oral Tablet POLO ([facility]) methylprednisolone 4 mg tablets in a dose pack POLO ([facility]) gabapentin 300 MG Oral Capsule POLO ([facility]) gabapentin 100 MG Oral Capsule POLO ([facility]) pantoprazole sodium 20 mg tbec POLO ([facility]) omeprazole 20 mg cpdr ATHEN A ([facility]) Nortriptyline 25 MG Oral Capsule POLO ([facility]) methylprednisolone dose pack 4 mg tbpk POLO ([facility]) lidocaine hcl jelly 2 % gel POLO ([facility]) Lidocaine Hydrochloride 0.02 MG/MG Topical Gel POLO ([facility]) ipratropium/ tiff albuter ATH MIREYA ([facility]) Acetaminophen 325 MG / Hydrocodone Bitartrate 5 MG Oral Tablet POLO ([facility]) Ranitidine 150 MG Oral Tablet POLO ([facility]) gabapentin 300 MG Oral Capsule POLO ([facility]) gabapentin 100 MG Oral Capsule POLO ([facility]) Baclofen 10 MG Oral Tablet A THENA ([facility]) Doxycycline Monohydrate 100 MG Oral Capsule POLO ([facility]) Baclofen 10 MG Oral Tablet A THENA ([facility]) fluticasone furoate 0.2 MG/ACTUAT Dry Powder Inhaler POLO ([facility]) umeclidinium 0.0625 MG/ACTUAT / vilanterol 0.025 MG/ACTUAT D ry Powder Inhaler POLO ([facility])
[2020-03-15] MEDS ORDERED: ALBUTEROL 90 MCG/ACT 8GM HFA INHALER INH ONE (13:30)
[2020-03-15] MEDS ORDERED: NORCO, ANEXSIA 5/325MG TABLET (HYDROcodone/ACETAMINOPHEN) PO ONE (13:30)
[2020-03-15] MEDS ORDERED: NS 1,000 ML IV ONE (13:30)
[2020-03-15] MEDS ORDERED: ONDANSETRON 4MG/2ML VIAL IV ONE (13:30)
--- NOTE | 2020-03-15 14:20 | REP ---
INDICATION: cough/sob. COMPARISON: Comparison chest x-ray January 11, 2019. TECHNIQUE: Portable upright AP chest radiograph. FINDINGS: The lungs are well inflated and free of infiltrate. Pleural angles are sharp. Heart size is normal. Pulmonary vasculature is not increased. IMPRESSION: No active disease. <Electronically signed by Rboson Lovelace > 03/15/20 0902
[2020-03-15 14:40] LABS: BASO % 0.6 % (0.0-1.0); EOS # 0.1 10^3/uL (0.0-0.5); EOS % 0.8 % (0.0-3.0); HEMATOCRIT 44.3 % (36.0-47.0); HEMOGLOBIN 14.3 g/dl (12.0-15.5); LYMPH # 2.7 10^3/uL (1.5-5.0); LYMPH % 43.8 % (24.0-44.0); MEAN CORPUSCULAR HEMOGLOBIN 27.6 pg (27.0-33.0); MEAN CORPUSCULAR HGB CONC 32.3 g/dl (32.0-36.5); MEAN CORPUSCULAR VOLUME 85.4 fl (80.0-96.0); MONO # 0.5 10^3/uL (0.0-0.8); MONO % 7.7 % (0.0-5.0); NEUTROPHILS # 2.9 10^3/uL (1.5-8.5); NEUTROPHILS % 46.9 % (36.0-66.0); PLATELET COUNT, AUTOMATED 263 10^3/uL (150-450); RED BLOOD COUNT 5.19 10^6/uL (4.00-5.40); WHITE BLOOD COUNT 6.2 10^3/uL (4.0-10.0)
[2020-03-15] MEDS ORDERED: POTASSIUM CHLORIDE 10 MEQ SR TABLET PO ONE (14:45)
[2020-03-15] MEDS ORDERED: KCL 10MEQ/100ML SWI (KRUN) 10 MEQ in IV 1 EA IV ONE (15:00)
[2020-03-15 15:09] LABS: ALBUMIN 3.3 GM/DL (3.2-5.2); ALT/SGPT 18 U/L (12-78); BILIRUBIN,DIRECT 0.1 MG/DL (0.0-0.2); BILIRUBIN,TOTAL 0.3 MG/DL (0.2-1.0); CK-MB VALUE MASS 1.5 NG/ML (<3.6); CPK CREATINE PHOSPHOKINASE 105 U/L (26-192); LIPASE 80 U/L (73-393); MB/CK RELATIVE INDEX 1.43 (< OR =4); TOTAL PROTEIN 6.5 GM/DL (6.4-8.2); TROPONIN I < 0.02 NG/ML (< 0.10)
[2020-03-15] MEDS ORDERED: ISOVUE-370 76% 100ML VIAL As Ordered ONE (15:37)
--- NOTE | 2020-03-15 16:13 | REP ---
INDICATION: diarrhea/vomiting. COMPARISON: Comparison CT study February 18, 2018.. TECHNIQUE: Helical scanning was acquired and 4 mm axial images are re-formatted. Coronal and sagittal MPR images were generated and reviewed. The contrast enhancement dose is 100 mL of intravenous Isovue 370. 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 The lung bases are clear on axial CT images. There is no evidence of pleural effusion or upper abdominal ascites. The liver and the spleen are normal in size homogeneous in texture. There are 1 or 2 granulomatous calcifications in the spleen. A tiny accessory splenule is noted inferior to the spleen. No adrenal lesion is seen on either side. No pancreatic mass or cyst is observed. No abnormality is noted in the gallbladder. The kidneys enhance symmetrically and are morphologically intact. Small caliber aorta noted. Infrarenal abdominal aortic stent is noted in place which is patent. The celiac axis is patent at its origin. Cyst the SMA and renal arteries appear patent bilaterally. No stenosis or occlusion seen. I do not see flow at the origin of the inferior mesenteric artery. This is unchanged. Iliac arteries are patent bilaterally. There is mild a fold in mural thickening in a few jejunal loops in the right upper and left lower abdomen. Question it enteritis. No obstructive lesion is seen. Colon is not dilated and contains fluid content. Urinary bladder is intact. The uterus is surgically absent. There is no evidence of free intraperitoneal air or abnormal fluid collection. No abdominal wall defect is seen. No acute bony abnormality is seen. IMPRESSION: Enteritis pattern in the bowel gas with fluid content in large and small bowel. Mild mural and fold thickening in jejunal loops. No obstructive lesion. No other acute abnormality seen. <Electronically signed by Robson Lovelace > 03/15/20 [id number]
[2020-03-15] MEDS ORDERED: ZOFR4TAB16 PO (16:36)
[2020-03-15 16:38] VITALS: BP 177/77
--- NOTE | 2020-03-15 20:43 | ECGEPIP ---
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
== END 2020-03-15 16:52 | disposition home or self-care (01) ==
LOC: M ED 12:19
DX: K52.9 Noninfective gastroenteritis and colitis, unspecified (principal); I10 Essential (primary) hypertension; J44.9 Chronic obstructive pulmonary disease, unspecified; F33.9 Major depressive disorder, recurrent, unspecified; F41.9 Anxiety disorder, unspecified; E78.5 Hyperlipidemia, unspecified; I25.2 Old myocardial infarction; G43.909 Migraine, unspecified, not intractable, without status migrainosus; I73.9 Peripheral vascular disease, unspecified; Z79.01 Long term (current) use of anticoagulants; F17.210 Nicotine dependence, cigarettes, uncomplicated
CPT/HCPCS: 71045; 74177; 80047; 80076; 81001; 82550; 82553; 83690; 84484; 85025; 87804; 93005; 94640; 96361; 96365; 96366; 96375; 99284; J2405; Q9967

== ENCOUNTER → 2020-03-17 | Outpatient (REF) | payer MEDICARE, MEDICAID ==
[~2020-03-17] MED LIST changes: +ZOFR4TAB16 PO
== END ==
LOC: M LAB REF 10:00
PROVIDERS: ATTEND Physician Assistant Medical
DX: R19.7 Diarrhea, unspecified (principal)

== ENCOUNTER → 2020-04-09 | Outpatient (CLI) | payer MEDICARE, MEDICAID ==
[2020-04-09 14:00] LABS: BASO % 0.5 % (0.0-1.0); EOS # 0.1 10^3/uL (0.0-0.5); EOS % 0.7 % (0.0-3.0); HEMATOCRIT 46.4 % (36.0-47.0); HEMOGLOBIN 14.7 g/dl (12.0-15.5); LYMPH # 2.6 10^3/uL (1.5-5.0); LYMPH % 34.6 % (24.0-44.0); MEAN CORPUSCULAR HEMOGLOBIN 28.3 pg (27.0-33.0); MEAN CORPUSCULAR HGB CONC 31.7 g/dl (32.0-36.5); MEAN CORPUSCULAR VOLUME 89.2 fl (80.0-96.0); MONO # 0.5 10^3/uL (0.0-0.8); MONO % 6.1 % (2.0-8.0); NEUTROPHILS # 4.3 10^3/uL (1.5-8.5); NEUTROPHILS % 57.7 % (36.0-66.0); PLATELET COUNT, AUTOMATED 294 10^3/uL (150-450); WHITE BLOOD COUNT 7.4 10^3/uL (4.0-10.0)
[2020-04-09 14:42] LABS: ALBUMIN 3.5 GM/DL (3.2-5.2); ALT/SGPT 24 U/L (12-78); AMYLASE 49 U/L (25-115); BILIRUBIN,TOTAL 0.3 MG/DL (0.2-1.0); BLOOD UREA NITROGEN 9 MG/DL (7-18); CALCIUM LEVEL 8.8 MG/DL (8.8-10.2); CARBON DIOXIDE LEVEL 28 MEQ/L (21-32); CHLORIDE LEVEL 112 MEQ/L (98-107); CREATININE FOR GFR 0.92 MG/DL (0.55-1.30); FREE T4 1.03 NG/DL (0.76-1.46); GLOMERULAR FILTRATION RATE > 60.0 (>45); GLUCOSE, FASTING 86 MG/DL (70-100); LIPASE 81 U/L (73-393); POTASSIUM SERUM 3.6 MEQ/L (3.5-5.1); SODIUM LEVEL 145 MEQ/L (136-145); THYROID STIMULATING HORMONE 0.715 uIU/ML (0.358-3.740); TOTAL PROTEIN 6.8 GM/DL (6.4-8.2)
== END ==
LOC: M LAB 13:02
PROVIDERS: ATTEND Physician Assistant Medical
DX: R19.7 Diarrhea, unspecified (principal); R10.13 Epigastric pain

== ENCOUNTER → 2020-04-10 | Outpatient (REF) | payer MEDICARE, MEDICAID | LOC: M LAB REF 15:33 | PROVIDERS: ATTEND Physician Assistant Medical | DX: R19.7 Diarrhea, unspecified (principal) ==

== ENCOUNTER → 2020-04-20 | Outpatient (CLI) | payer MEDICARE, MEDICAID ==
[~2020-04-20] MED LIST changes: -EZET10TA21; +EZET10TA21 PO; +GLUCAGON INJ 1MG VIAL As Ordered ONE; +ISOVUE-370 76% 100ML VIAL As Ordered ONE; -PARO30TA4; +PARO30TA4 PO; +VoLumen 0.1% SUSPENSION 450ML BOTTLE As Ordered ONE
--- NOTE | 2020-04-20 09:00 | REP ---
INDICATION: RUQ,EPIGASTRIC PAIN,DIARRHEA,ABN WT LOSS,ABN IMAG COMPARISON: 01/06/2020 TECHNIQUE: Real time hardy scale ultrasound examination using curved array transducer. FINDINGS: Liver again demonstrates subcentimeter hyperechoic focus in long the posterior right lobe likely representing small hemangioma. No further focal hepatic lesions are identified. Pancreas is incompletely evaluated due to interposed bowel gas but visualized portions appear normal. The gallbladder is normal and without gallstones, wall thickening, or pericholecystic fluid. No biliary ductal dilatation is appreciated and the common bile duct measures 5 mm diameter. Right kidney is normal in reniform shape with increased central sinus fat suggesting chronic age-related changes and no hydronephrosis or obvious abnormality. Kidney measures 9.5 x 4.7 x 3.6 cm. No ascites in the visualized right upper quadrant. IMPRESSION: 1. Stable subcentimeter hepatic hyperechoic focus likely small hemangioma. 2. Otherwise normal right upper quadrant ultrasound. <Electronically signed by Elfego Villegas > 04/20/20 0857
--- NOTE | 2020-04-20 10:38 | REP ---
INDICATION: RUQ,EPIGASTRIC PAIN,DIARRHEA,ABN WT LOSS,ABN IMAG COMPARISON: 03/15/2020 TECHNIQUE: Axial contrast-enhanced images from the lung bases to the pubic symphysis with images obtained in arterial and portal venous phases of enhancement. Low-dose oral contrast material was administered prior to imaging along with 100 cc Isovue 370 intravenous contrast material. Coronal and sagittal reformations were obtained. FINDINGS: The gastroesophageal junction appears normal. The stomach is fluid-filled/distended and without wall thickening or obvious abnormality and leads to a relatively normal appearing duodenum. Jejunal and ileal small bowel are relatively normal in appearance and mucosal pattern without wall thickening, mucosal fold abnormalities, excessive fat deposition, or inflammatory stranding. No areas of stenosis or obstruction are appreciated. Large bowel is fluid-filled to the rectosigmoid and otherwise unremarkable in appearance. Liver, spleen, pancreas, gallbladder, bilateral adrenal glands and kidneys are normal. Pelvis demonstrates normal bladder and evidence for prior hysterectomy. No ascites. No free air. No adenopathy. Atherosclerotic changes to the aorta and vasculature noted without aneurysm. Aortic stent noted. Musculoskeletal structures demonstrate age-related changes without acute osseous abnormality. Lung bases are clear. IMPRESSION: No obvious enterocolonic abnormality by CT enterography. No acute abdominopelvic pathology appreciated. <Electronically signed by Elfego Villegas > 04/20/20 5130
== END ==
LOC: M RAD 07:50
PROVIDERS: ATTEND Physician Assistant Medical
DX: R63.4 Abnormal weight loss (principal); R19.7 Diarrhea, unspecified; R93.3 Abnormal findings on diagnostic imaging of other parts of digestive tract; R10.11 Right upper quadrant pain; R10.13 Epigastric pain
CPT/HCPCS: 74177; 76705; J1610; Q9967

== ENCOUNTER → 2020-04-22 | Outpatient (CLI) | payer MEDICARE, MEDICAID ==
[~2020-04-22] MED LIST changes: -GLUCAGON INJ 1MG VIAL As Ordered ONE; -ISOVUE-370 76% 100ML VIAL As Ordered ONE; -VoLumen 0.1% SUSPENSION 450ML BOTTLE As Ordered ONE
== END ==
LOC: M LABSMTC 09:45
PROVIDERS: ATTEND Anesthesiology
DX: Z01.818 Encounter for other preprocedural examination (principal); Z20.822 Contact with and (suspected) exposure to COVID-19

== ENCOUNTER 2020-04-27 11:36 | Day surgery (SDC) | payer MEDICARE, MEDICAID ==
[~2020-04-27] VITALS: Ht 165.1 cm; Wt 49.0 kg
[~2020-04-27 11:36] MED LIST changes: +LIDOCAINE 2% 100MG/5ML SDV (FOR ANES.) As Ordered ONE; +NS 1,000 ML IV ONE; +fentaNYL 100 MCG/2 ML INJECTION (J3010) As Ordered ONE; +propofoL 200 MG/20 ML VIAL As Ordered ONE
[2020-04-27] MEDS ORDERED: ALBUTEROL SULFATE 2.5 MG/0.5 ML INH NEB SOLN INH ONE (12:45)
--- NOTE | 2020-04-27 13:29 | ROOR ---
Patient Name: Dora Freeman Procedure Date: 04/27/2020 1:07 PM Date of : 1960 Age: 59 Room: [facility] Gender: Female Note Status: Finalized Procedure: Upper GI endoscopy Indications: Diarrhea, Endoscopy to assess diarrhea in patient suspected of having disease of the small-bowel, Weight loss Providers: Babar DEGROOT MD Referring MD: Geena MARTELL Requesting Provider: Medicines: Monitored Anesthesia Care Complications: No immediate complications. Procedure: Pre-Anesthesia Assessment: - The heart rate, respiratory rate, oxygen saturations, blood pressure, adequacy of pulmonary ventilation, and response to care were monitored throughout the procedure. The Endoscope was introduced through the mouth, and advanced to the third part of duodenum. The upper GI endoscopy was accomplished without difficulty. The patient tolerated the procedure well. Findings: Diffuse mild inflammation characterized by erythema and granularity was found in the first portion of the duodenum, in the second portion of the duodenum and in the third portion of the duodenum. Biopsies were taken with a cold forceps for histology and giardia evaluation. A single 6 mm mucosal nodule was found at the gastroesophageal junction. Biopsies were taken with a cold forceps for histology. The exam was otherwise without abnormality. Impression: - Mild duodenitis. Biopsied r/o IBD, r/o peptic, r/o giardia. - Mucosal nodule found in the distal esophagus/GE junction. Biopsied. - The examination was otherwise normal. Recommendation: - Telephone endoscopist for pathology results in 2 weeks. Procedure Code(s): --- Professional --- 67074, Esophagogastroduodenoscopy, flexible, transoral; with biopsy, single or multiple Diagnosis Code(s): --- Professional --- R63.4, Abnormal weight loss R19.7, Diarrhea, unspecified K22.8, Other specified diseases of esophagus K29.80, Duodenitis without bleeding CPT copyright 2019 [employer]. All rights reserved. The codes documented in this report are preliminary and upon insurance account executive review may be revised to meet current compliance requirements. Babar Degroot MD Babar DEGROOT MD 04/27/2020 1:29:27 PM Electronically signed by Babar DEGROOT MD Number of Addenda: 0 Note Initiated On: 04/27/2020 1:07 PM Estimated Blood Loss: Estimated blood loss: none.
--- NOTE | 2020-04-27 14:02 | ROOR ---
Patient Name: Dora Freeman Procedure Date: 04/27/2020 1:08 PM Date of : 1960 Age: 59 Room: [facility] Gender: Female Note Status: Finalized Procedure: Colonoscopy Indications: Chronic diarrhea, Weight loss Providers: Babar DEGROOT MD Referring MD: Geena MARTELL Requesting Provider: Medicines: Monitored Anesthesia Care Complications: No immediate complications. Procedure: Pre-Anesthesia Assessment: - The heart rate, respiratory rate, oxygen saturations, blood pressure, adequacy of pulmonary ventilation, and response to care were monitored throughout the procedure. The Colonoscope was introduced through the anus and advanced to the cecum, identified by appendiceal orifice and ileocecal valve. The colonoscopy was performed without difficulty. The patient tolerated the procedure well. The quality of the bowel preparation was fair after extensive lavage. Findings: The perianal and digital rectal examinations were normal. There were two lipomata, 10 to 15 mm in diameter, at the hepatic flexure. Mildly inflamed, positive pillow sign. Biopsies were taken with a cold forceps for histology. Internal hemorrhoids were found during retroflexion. The hemorrhoids were moderate. The exam was otherwise normal throughout the examined colon. Biopsies for histology were taken with a cold forceps from the entire colon for evaluation of microscopic colitis. Impression: - Preparation of the colon was fair. - Lipoma x 2 at the hepatic flexure. Biopsied. - Internal hemorrhoids. - Biopsies were taken with a cold forceps from the entire colon for evaluation of microscopic colitis. Recommendation: - Await pathology results. - Resume Plavix (clopidogrel) at prior dose in 2 days. - (on 04/29/20) Procedure Code(s): --- Professional --- 72848, Colonoscopy, flexible; with biopsy, single or multiple Diagnosis Code(s): --- Professional --- K64.8, Other hemorrhoids D17.5, Benign lipomatous neoplasm of intra-abdominal organs K52.9, Noninfective gastroenteritis and colitis, unspecified R63.4, Abnormal weight loss CPT copyright 2019 [employer]. All rights reserved. The codes documented in this report are preliminary and upon fire behavior analyst review may be revised to meet current compliance requirements. Babar Degroot MD Babar DEGROOT MD 04/27/2020 2:02:22 PM Electronically signed by Babar DEGROOT MD Number of Addenda: 0 Note Initiated On: 04/27/2020 1:08 PM Estimated Blood Loss: Estimated blood loss: none.
[2020-04-27 14:25] VITALS: BP 136/60
== END 2020-04-27 14:30 | disposition home or self-care (01) ==
LOC: M OPP 11:36
PROVIDERS: ATTEND Internal Medicine Gastroenterology
DX: D12.5 Benign neoplasm of sigmoid colon (principal); K64.8 Other hemorrhoids; K62.9 Disease of anus and rectum, unspecified; K22.8 Other specified diseases of esophagus; K29.80 Duodenitis without bleeding; R19.7 Diarrhea, unspecified; R63.4 Abnormal weight loss; I73.9 Peripheral vascular disease, unspecified; F17.210 Nicotine dependence, cigarettes, uncomplicated; Z79.82 Long term (current) use of aspirin; I10 Essential (primary) hypertension; Z79.899 Other long term (current) drug therapy; Z86.73 Personal history of transient ischemic attack (TIA), and cerebral infarction without residual deficits
CPT/HCPCS: 43239; 45380; 88304; 88305; J3010

== ENCOUNTER → 2020-05-11 | Outpatient (CLI) | payer MEDICARE, MEDICAID ==
[~2020-05-11] MED LIST changes: -LIDOCAINE 2% 100MG/5ML SDV (FOR ANES.) As Ordered ONE; -NS 1,000 ML IV ONE; -fentaNYL 100 MCG/2 ML INJECTION (J3010) As Ordered ONE; -propofoL 200 MG/20 ML VIAL As Ordered ONE
--- NOTE | 2020-05-11 13:11 | REP ---
INDICATION: NICOTINE DEPENDENCE, CIGARETTES, W OTH DISORDERS/ LABS 1ST. 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 COMPARISON: Comparison is made with multiple prior chest CT studies the most recent which is from May 02, 2019 and the most remote is from April 26, 2015.. TECHNIQUE: Dose reduction was performed utilizing CARE dose with automated adjustment of the kV and MAS according to patient size; iterative reconstruction, automated exposure control, as well as adaptive dose shielding. Helical scanning is acquired and 3 mm axial images are re-formatted at lung only windows. FINDINGS: Older prior studies showed numerous irregular and cavitary pulmonary nodules scattered bilaterally. There are emphysematous changes in the upper lobes again noted. There are multiple areas of spiculation, old tiny cavitary changes, and fibrosis in the lung garvey bilaterally corresponding with the shaky scattered bilateral nodules visible on the [address]. No lung mass has developed. There are interstitial changes in the superior segment of the right lower lobe which are more prominent today than on the prior study. This could be inflammatory change or progression of the patient's histiocytosis. A non solid nodule in the superior segment of the left lower lobe appears a little more prominent in soft tissue density than it did on the May 02, 2019 study as well. there is a new linear density in the lateral aspect of the right lower lobe inferiorly on today's study consistent with atelectasis or fibrosis. A soft tissue density in the right lower lobe posteromedially appears more prominent today than on the most recent prior study, similar to the prior study. No other new finding. No pleural effusion or pericardial effusion is seen. There is some vascular calcification again noted. IMPRESSION: Findings most compatible with inflammatory disease or recurrence of the patient's histiocytosis in that a several old lesions have become more prominent than on the most recent prior study of May 02, 2019. No definite new neoplastic nodule seen. Correlation with clinical parameters. Lung RADS category 2 S. Repeat screening study indicated in 1 year. <Electronically signed by Robson Lovelace > 05/11/20 [id number]
== END ==
LOC: M RAD 09:07
PROVIDERS: ATTEND Physician Assistant
DX: F17.218 Nicotine dependence, cigarettes, with other nicotine-induced disorders (principal); I25.2 Old myocardial infarction

== ENCOUNTER → 2020-05-11 | Outpatient (CLI) | payer MEDICARE, MEDICAID ==
[2020-05-11 10:46] LABS: CHOLESTEROL RISK RATIO 3.268 (<5)
== END ==
LOC: M LAB 09:12
PROVIDERS: ATTEND Nurse Practitioner Family
DX: I25.2 Old myocardial infarction (principal)

== ENCOUNTER → 2020-06-18 | Outpatient (CLI) | payer MEDICARE, MEDICAID | LOC: M LABSMTC 10:38 | PROVIDERS: ATTEND Family Medicine | DX: Z20.822 Contact with and (suspected) exposure to COVID-19 (principal) ==

== ENCOUNTER → 2020-07-20 | Outpatient (CLI) | payer MEDICARE, MEDICAID ==
[2020-07-20 10:25] LABS: BLOOD UREA NITROGEN 4 MG/DL (7-18); CALCIUM LEVEL 8.3 MG/DL (8.8-10.2); CARBON DIOXIDE LEVEL 27 MEQ/L (21-32); CHLORIDE LEVEL 112 MEQ/L (98-107); CREATININE FOR GFR 0.97 MG/DL (0.55-1.30); GLOMERULAR FILTRATION RATE > 60.0 (>45); GLUCOSE, FASTING 77 MG/DL (70-100); POTASSIUM SERUM 3.1 MEQ/L (3.5-5.1); SODIUM LEVEL 145 MEQ/L (136-145)
[2020-07-20 10:36] LABS: TOTAL 25(OH) VITAMIN D 35.9 NG/ML (30.0-100.0)
== END ==
LOC: M LAB 09:36
PROVIDERS: ATTEND Nurse Practitioner Family
DX: M80.00XA Age-related osteoporosis with current pathological fracture, unspecified site, initial encounter for fracture (principal)

== ENCOUNTER 2020-07-30 10:44 | Emergency (ER) | payer MEDICARE, MEDICAID ==
[~2020-07-30] VITALS: Ht 165.1 cm; Wt 47.7 kg
--- NOTE | 2020-07-30 11:33 | REPVR ---
PROCEDURE INFORMATION: Exam: CT Head Without Contrast Exam date and time: 07/30/2020 10:55 AM Age: 59 years old Clinical indication: Dizziness TECHNIQUE: Imaging protocol: Computed tomography of the head without contrast. Radiation optimization: All CT scans at this facility use at least one of these dose optimization techniques: automated exposure control; mA and/or kV adjustment per patient size (includes targeted exams where dose is matched to clinical indication); or iterative reconstruction. COMPARISON: CT Head without contrast 08/26/2014 6:31 PM FINDINGS: Brain: There is no acute intracranial hemorrhage or mass effect. Mild diffuse volume loss is within the range of normal for patient age. There are small vessel ischemic changes within the periventricular and subcortical white matter, but the normal hardy/white matter delineation is maintained. Cerebral ventricles: No ventriculomegaly. Paranasal sinuses: Visualized sinuses are unremarkable. No fluid levels. Mastoid air cells: Visualized mastoid air cells are well aerated. Bones/joints: Unremarkable. No acute fracture. Soft tissues: Unremarkable. IMPRESSION: No acute intracranial hemorrhage or edema. Electronically signed by: Breann Jose On 07/30/2020 11:32:58 AM
[2020-07-30 11:53] LABS: BASO # 0.1 10^3/uL (0.0-0.2); BASO % 0.7 % (0.0-1.0); EOS # 0.4 10^3/uL (0.0-0.5); EOS % 4.7 % (0.0-3.0); HEMATOCRIT 44.5 % (36.0-47.0); HEMOGLOBIN 14.2 g/dl (12.0-15.5); LYMPH # 2.8 10^3/uL (1.5-5.0); LYMPH % 31.5 % (24.0-44.0); MEAN CORPUSCULAR HEMOGLOBIN 29.6 pg (27.0-33.0); MEAN CORPUSCULAR HGB CONC 31.9 g/dl (32.0-36.5); MEAN CORPUSCULAR VOLUME 92.7 fl (80.0-96.0); MONO # 0.6 10^3/uL (0.0-0.8); MONO % 6.3 % (2.0-8.0); NEUTROPHILS % 56.6 % (36.0-66.0); PLATELET COUNT, AUTOMATED 287 10^3/uL (150-450); WHITE BLOOD COUNT 8.9 10^3/uL (4.0-10.0)
[2020-07-30] MEDS ORDERED: ISOVUE-370 76% 100ML VIAL As Ordered ONE (12:28)
[2020-07-30 13:03] LABS: ALBUMIN 2.8 GM/DL (3.2-5.2); ALT/SGPT 23 U/L (12-78); BILIRUBIN,DIRECT < 0.1 MG/DL (0.0-0.2); BILIRUBIN,TOTAL 0.3 MG/DL (0.2-1.0); BLOOD UREA NITROGEN 8 MG/DL (7-18); CALCIUM LEVEL 8.5 MG/DL (8.8-10.2); CARBON DIOXIDE LEVEL 31 MEQ/L (21-32); CHLORIDE LEVEL 108 MEQ/L (98-107); CK-MB VALUE MASS < 1.0 NG/ML (<3.6); CPK CREATINE PHOSPHOKINASE 63 U/L (26-192); CREATININE FOR GFR 0.97 MG/DL (0.55-1.30); GLOMERULAR FILTRATION RATE > 60.0 (>45); GLUCOSE, FASTING 59 MG/DL (70-100); MB/CK RELATIVE INDEX 1.59 (< OR =4); POTASSIUM SERUM 3.1 MEQ/L (3.5-5.1); SODIUM LEVEL 144 MEQ/L (136-145); TOTAL PROTEIN 6.5 GM/DL (6.4-8.2); TROPONIN I < 0.02 NG/ML (< 0.10)
--- NOTE | 2020-07-30 13:05 | REP ---
INDICATION: pleuritic chest pain. COMPARISON: 05/11/2020 as well as other prior exams. TECHNIQUE: CT angiogram chest performed following the intravenous administration of 100 cc of Isovue 370. Sagittal and coronal reconstruction images are performed. FINDINGS: Lungs: There are scattered reticulonodular opacities diffusely bilaterally which are essentially unchanged. There is no acute infiltrate. Mediastinum: No adenopathy. Pulmonary arteries: No evidence of pulmonary embolism. Lisseth: No adenopathy. Axilla: No adenopathy. Pleura: No effusion. Heart: Not enlarged. Thoracic aorta: No aneurysm or dissection. Upper abdominal structures: There are calcified granulomas in the spleen. Visualized osseous structures: There are mild degenerative changes of the spine. There are a few old thoracic and lumbar compression deformities unchanged since prior studies. IMPRESSION: No CT evidence of pulmonary embolism. No infiltrate seen. <Electronically signed by Pedro Levine > 07/30/20 [id number]
[2020-07-30] MEDS ORDERED: DEXTROSE 50% 50 ML SYRINGE IV STA (13:07)
[2020-07-30 13:46] VITALS: BP 158/71
[2020-07-30] MEDS ORDERED: POTASSIUM CHLORIDE 10 MEQ SR TABLET PO ONE (14:00)
--- NOTE | 2020-07-30 17:03 | ECGEPIP ---
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
== END 2020-07-30 14:23 | disposition home or self-care (01) ==
LOC: M ED 10:44
DX: R55 Syncope and collapse (principal); E16.2 Hypoglycemia, unspecified; E87.6 Hypokalemia; J44.9 Chronic obstructive pulmonary disease, unspecified; E78.9 Disorder of lipoprotein metabolism, unspecified; G40.909 Epilepsy, unspecified, not intractable, without status epilepticus; G62.9 Polyneuropathy, unspecified; M81.0 Age-related osteoporosis without current pathological fracture; I25.2 Old myocardial infarction; Z79.899 Other long term (current) drug therapy; Z79.82 Long term (current) use of aspirin; Z79.01 Long term (current) use of anticoagulants; F17.210 Nicotine dependence, cigarettes, uncomplicated
CPT/HCPCS: 70450; 71275; 80047; 80048; 80076; 82550; 82553; 84484; 85025; 93005; 93041; 94760; 96374; 99285; Q9967

== ENCOUNTER → 2020-08-13 | Outpatient (CLI) | payer MEDICARE, MEDICAID | LOC: M LAB 09:49 | PROVIDERS: ATTEND Nurse Practitioner Family | DX: E87.6 Hypokalemia (principal) ==

== ENCOUNTER 2020-10-07 10:17 | Emergency (ER) | payer MEDICARE, MEDICAID ==
[~2020-10-07] VITALS: Ht 165.1 cm; Wt 46.5 kg
[~2020-10-07 10:17] MED LIST changes: -TIZA4TAB4; +TIZA4TAB4 PO; -TOPI100T9; +TOPI100T9 PO
--- NOTE | 2020-10-07 10:49 | REP ---
INDICATION: TRAUMA ON THINNERS COMPARISON: 07/30/2020 TECHNIQUE: Axial noncontrast images from the skull base to the thoracic inlet with coronal reformations. This CT examination was performed using the following dose reduction techniques: Automated exposure control, adjustment of mA and/or kv according to the patient's size, and use of iterative reconstruction technique. FINDINGS: Atrophy with periventricular leukomalacia and microvascular ischemic changes are appreciated. The ventricles and sulci are symmetric. Levine-white differentiation is maintained. There is no evidence for acute intracranial hemorrhage, mass/mass effect, pathology or infarction. No extra-axial fluid collection. Calvarium is intact. Paranasal sinuses and mastoid air cells are clear. IMPRESSION: Atrophy and microvascular ischemic changes. No acute intracranial hemorrhage, infarction, or mass/mass effect. <Electronically signed by Elfego Villegas > 10/07/20 [id number]
--- NOTE | 2020-10-07 10:51 | REP ---
INDICATION: TRAUMA ON THINNERS COMPARISON: 08/27/2014 TECHNIQUE: Axial noncontrast images from the skull base to the thoracic inlet with coronal and sagittal re-formations This CT examination was performed using the following dose reduction techniques: Automated exposure control, adjustment of mA and/or kv according to the patient's size, and use of iterative reconstruction technique. FINDINGS: Normal alignment and lordosis is maintained. Cervical vertebral bodies including transverse processes and spinous processes are intact and there is no evidence for acute fracture / compression injury or subluxation. Spinal canal is patent. Posterior elements are intact. Paravertebral soft tissues are normal. There is moderate degenerative spondylosis centered at C6-7 including endplate sclerosis, marginal spurring and disc space narrowing with similar milder findings at C5-6. IMPRESSION: Focal degenerative changes at C6-7 and C5-6. No evidence for acute pathology or trauma/injury. <Electronically signed by Elfego Villegas > 10/07/20 1043
--- NOTE | 2020-10-07 11:28 | REP ---
INDICATION: Syncope/near-syncope COMPARISON: 03/15/2020 TECHNIQUE: Portable AP view of the chest FINDINGS: The mediastinum and cardiac silhouette are stable and within normal limits for portable technique. The lung garvey demonstrate chronic changes without acute consolidation, effusion, or pneumothorax. Skeletal structures are intact. IMPRESSION: No acute cardiopulmonary process appreciated. <Electronically signed by Elfego Villegas > 10/07/20 1125
[2020-10-07 11:32] LABS: BASO # 0.1 10^3/uL (0.0-0.2); BASO % 0.8 % (0.0-1.0); EOS # 0.1 10^3/uL (0.0-0.5); EOS % 1.8 % (0.0-3.0); HEMATOCRIT 41.8 % (36.0-47.0); HEMOGLOBIN 13.9 g/dl (12.0-15.5); LYMPH % 26.9 % (24.0-44.0); MEAN CORPUSCULAR HEMOGLOBIN 29.6 pg (27.0-33.0); MEAN CORPUSCULAR HGB CONC 33.3 g/dl (32.0-36.5); MEAN CORPUSCULAR VOLUME 89.1 fl (80.0-96.0); MONO # 0.5 10^3/uL (0.0-0.8); MONO % 6.2 % (2.0-8.0); NEUTROPHILS # 4.8 10^3/uL (1.5-8.5); PLATELET COUNT, AUTOMATED 263 10^3/uL (150-450); RED BLOOD COUNT 4.69 10^6/uL (4.00-5.40); WHITE BLOOD COUNT 7.6 10^3/uL (4.0-10.0)
[2020-10-07 12:06] LABS: BLOOD UREA NITROGEN 8 MG/DL (7-18); CALCIUM LEVEL 8.6 MG/DL (8.8-10.2); CARBON DIOXIDE LEVEL 32 MEQ/L (21-32); CHLORIDE LEVEL 111 MEQ/L (98-107); CK-MB VALUE MASS 1.1 NG/ML (<3.6); CPK CREATINE PHOSPHOKINASE 72 U/L (26-192); CREATININE FOR GFR 0.89 MG/DL (0.55-1.30); GLOMERULAR FILTRATION RATE > 60.0 (>45); GLUCOSE, FASTING 65 MG/DL (70-100); MB/CK RELATIVE INDEX 1.53 (< OR =4); SODIUM LEVEL 146 MEQ/L (136-145); THYROID STIMULATING HORMONE 0.538 uIU/ML (0.358-3.740); TROPONIN I < 0.02 NG/ML (< 0.10)
[2020-10-07 12:21] LABS: RSV AMPLIFICATION NEGATIVE (NEGATIVE)
[2020-10-07] MEDS ORDERED: ARNU1INH3 INH (12:58)
[2020-10-07] MEDS ORDERED: FAMO40TA3 PO (12:58)
[2020-10-07] MEDS ORDERED: TYML3120 SC (12:58)
[2020-10-07 13:23] LABS: ETHYL ALCOHOL (ETHANOL) < 0.003 % (0.000-0.010)
[2020-10-07 13:31] VITALS: BP 124/55
[2020-10-07] MEDS ORDERED: GABA-283 PO (13:42)
[2020-10-07] MEDS ORDERED: ONDA-83 PO (13:42)
[2020-10-07] MEDS ORDERED: HOME MED LIST COMPLETE! XX SCH (13:45)
--- NOTE | 2020-10-07 19:25 | ECGEPIP ---
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
== END 2020-10-07 13:42 | disposition left against medical advice (07) ==
LOC: M ED 10:17
DX: R55 Syncope and collapse (principal); T14.8XXA Other injury of unspecified body region, initial encounter; W18.39XA Other fall on same level, initial encounter; Y92.89 Other specified places as the place of occurrence of the external cause; J44.9 Chronic obstructive pulmonary disease, unspecified; E78.5 Hyperlipidemia, unspecified; G40.909 Epilepsy, unspecified, not intractable, without status epilepticus; Z86.73 Personal history of transient ischemic attack (TIA), and cerebral infarction without residual deficits; Z79.899 Other long term (current) drug therapy; Z79.82 Long term (current) use of aspirin; Z79.01 Long term (current) use of anticoagulants; F17.210 Nicotine dependence, cigarettes, uncomplicated

== ENCOUNTER → 2020-11-08 | Outpatient (CLI) | payer MEDICARE, MEDICAID ==
[~2020-11-08] MED LIST changes: +ARNU1INH3 INH; +FAMO40TA3 PO; +GABA-283 PO; +ONDA-83 PO; +TYML3120 SC
== END ==
LOC: M LAB 14:55
PROVIDERS: ATTEND Nurse Practitioner Family
DX: E87.6 Hypokalemia (principal)

== ENCOUNTER 2020-12-11 08:32 | Emergency (ER) | payer MEDICARE, MEDICAID ==
[~2020-12-11] VITALS: Ht 165.1 cm; Wt 44.8 kg
--- OUTSIDE RECORDS SUMMARY | 2020-12-11 08:40 | CCD ---
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 Active confirm ed 52957887 Problem Tobacco use disorder F17.200 Active confirmed 079045930 Problem PAD (peripheral artery disease) I73.9 Active confi rmed 723202431 Problem History of GA (myocardial infarction) I25.2 Ac tive confirmed 495863984 Problem Other chronic pain G89.29 Active confirmed 8 6104052 Problem Constipation, unspecified constipation type K59.00 Active confirmed 84679745 Problem Influenza vaccination declined Z28.21 Active confir med 260013616 Problem Epidermoid cyst of skin of chest 706.2 Active conf irmed 362873326 Problem Frequency-urgency syndrome N31.8 Active confirmed 114781736 Problem Osteoporosis 733.00 Active confirmed 8082906 6 Problem Chronic pain syndrome G89.4 Active confirmed 202515993 Problem 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 Active confirmed 2 07786877 Problem Stress at home F43.9 Active confirmed 12418 5001 Problem 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 Ac tive confirmed 007698333 Problem Myalgia M79.1 Active confirmed 38421791 Problem PAD (peripheral artery disease) 443.9 Active confi rmed 454500907 Problem Chronic obstructive pulmonary disease, unspecified COPD ty pe J44.9 Active confirmed 13941609 Problem History of GA (myocardial infarction) 412 Ac tive confirmed 582967742 Problem Cocaine abuse F14.10 Active confirmed 511668 03 Problem Seizure disorder 345.90 Active confirmed 128 635231 Problem Stuttering F80.81 Active confirmed 17619602 Problem History of CVA (cerebrovascular accident) V12.54 Active confirmed 832928162 Problem Perimenopausal atrophic vaginitis N95.2 Active confirmed 908223532 Problem Bilateral hand pain 729.5 Active confirmed 19359423 Problem Vaginal bleeding N93.9 Active confirmed 289 599449 Problem Peripheral neuropathy 356.9 Active confirmed 34937751 Problem Degenerative disc disease, lumbar M51.36 Active confirmed 74784022 Problem Hip arthritis M16.10 Active confirmed 871597 06 Problem COPD exacerbation J44.1 Active confirmed 19 4722839 Problem S/P insertion of iliac artery stent Z95.828 Acti ve confirmed 812252167 Problem Sacroiliac inflammation M46.1 Active confirmed 29584689 Problem COPD (chronic obstructive pulmonary disease) 496 Active confirmed 87746003 Problem Hypoglycemia E16.2 Active confirmed 1519432 03 Problem Cervical facet syndrome M46.92 Active confirmed 407636271 Problem DDD (degenerative disc disease), lumbar 722.52 Active confirmed 27167277 Problem Osteoarthritis 715.90 Active confirmed 43924 5006 Problem 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 confirm ed 76583838 Problem Tobacco abuse 305.1 Active confirmed 598329 05 Problem Seizure disorder G40.909 Active confirmed 12 9679548 Problem COPD with exacerbation J44.1 Active confirmed 488732651 Problem Hyperlipidemia LDL goal <100 272.4 Active confirme d 47099747 Problem Gastroesophageal reflux disease, esophagitis pre sence not specified K21.9 Active confirmed 059843548 Problem Adjustment disorder with mixed anxiety and depressed mood F43.23 Active confirmed 786564141 ALLERGIES Allergen (clinical drug ingredient) Drug/Non Drug Allergy do cumented on EMR Reaction Allergy Type Onset Date Status varenicline Chantix([facility] Code:[address]-48) depression Drug Allergy Active Wellbutrin Nightmares Drug Allergy Active ENCOUNTERS from 1960 to 2020-11-19 Encounter Location Date Provider Diagnosis [facility] [id number] [place] [address] [place] [address] Nov, Geena Hogan 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 IMMUNIZATIONS Vaccine Route Administration Date Status Pneumovax Given Elsewhere Unknown Dec 05, 2019 Admini stered Influenza Pharmacy Given Unknown Dec 05, 2019 Adminis tered Influenza Pharmacy Given Unknown Dec 21, 2017 Adminis tered Influenza 18 yrs & older Flublok IM Intramuscular Nov 24, 2018 Administered Pneumococcal Adult 0.5mL Pneumovax 23 IM Intramuscular Dec 25 017 Administered Pneumococcal 0.5mL Prevnar 13 Unknown September 03, 2018 Ad ministered Influenza 6mo & up Fluzone IM Intramuscular Dec 25, 2016 Admi nistered SOCIAL HISTORY Tobacco Use: Social History Observation Description Date Details (start date - stop date) Current Smoker Sex Assigned At : Social History Observation Description Sex Assigned At Unknown Education: Question Answer Notes Level of Education: High School Audit Question Answer Notes Total Score: 0 Interpretation: Alcohol Education Language: Question Answer Notes Languages spoken: German Congregational: Question Answer Notes Congregational 33 None Sexual Hx: Question Answer Notes [...] a: current smoker Smoking Cessation Information Given 10/16/2020 Patient counseled on the dangers of tobacco use and urged to quit: 10/16/2020 How many cigarettes a day do you smoke? 6-10 Are you interested in quitting? Ready to quit Counseled the patient on tobacco use, cessation provided REASON FOR REFERRAL No Information VITAL SIGNS No information MEDICATIONS Medication SIG (Take, Route, Frequency, Duration) Notes Start Da te End Date Status Contour Next Test - as directed In Vitro Daily as needed for 90 day(s) E16.2, dispense brand covered by insurance/compatible w/ glucometer Oct, Active Topamax 100 MG 1 tablet Orally Twice a day for 90 day(s) Active Clopidogrel Bisulfate 75 MG 1 tablet Orally Once a day for 90 da ys Nov, Active Lancets - as directed Daily as needed for 90 day(s ) E16.2, dispense brand covered by insurance/compatible w/ glucometer Oct, Active Ezetimibe 10 MG 1 tablet Orally Once a day for 90 Active Alcohol Swabs 70 % as directed Daily as needed for 90 day(s ) E16.2, dispense brand covered by insurance/compatible w/ glucometer Oct, Active Cephalexin 500 MG 1 capsule Orally twice daily for 7 day(s) Sep, Active Glucometer as directed GLUCOMETER Daily for 99 days E16.2, dispense brand covered by insurance/compatible w/ glucometer Oct, Active Bactrim DS 800-160 MG 1 tablet Orally Twice a day for 3 days Nov, Not-Taking Ciprofloxacin HCl 500 MG 1 tablet Orally every 12 hrs for 5 day( s) Dec, Not-Taking tiZANidine HCl 4 MG 2 tablets Orally before bedt geetha (not t o exceed 24mg/day) for 5 days Nov, Not-Taking Aspir-81 81 MG 1 tablet Orally Once a day for 90 days Active Albuterol Sulfate (2.5 MG/3ML) 0.083% 3 ml as needed I nhalation Three times a day for 14 day(s) Active Klor-Con M20 20 MEQ 2 tablet with food Orally Once a day for 30 Days total dosage 40mEq Jul, Active Pantoprazole Sodium 20 MG 1 tablet Orally Once a day for 30 day(s) stop famotidine, stop omeprazole Mar, Not-Taking Lidocaine HCl Urethral/Mucosal 2 % as directed Externally qid fo r 21 days Apr, Active Ondansetron HCl 4 MG 1 tablet Orally every 6-8 hours as needed f or 5 day(s) Mar, Active Gabapentin 400 MG 1 capsule Orally bid for 90 days Feb, Active Paxil 30 mg 1 tablet in the morning Orally Once a day for 90 day(s) Active ALPRAZolam 0.5 MG 1 tablet as needed Orally Twice a day (MDD;2) for 30 Days June, Not-Taking Lipitor 80 MG 1 tablet Orally Once a day for 90 days Active Albuterol Sulfate HFA 108 (90 Base) MCG/ACT 2 puffs as needed Inhalation every 6 hrs Active tiZANidine HCl 4 MG 1 tablet Oral BID prn for 30 Days Not-Taking PROCEDURES No Information RESULTS No Results REASON FOR VISIT refill MEDICAL (GENERAL) HISTORY Type Description Date Medical [...] Notes Treatment Notes Treatm ent Clinical Notes Nov, Anxious depression (ICD-10 - F41.8) PLAN OF TREATMENT Medication Medication Name Sig Start Date Stop Date Klor-Con M20 20 MEQ 2 tablet with food Orally Once a day for 30 Days Jul, Cephalexin 500 MG 1 capsule Orally twice daily for 7 day(s) 31 A 2020 Alcohol Swabs 70 % as directed Daily as needed for 90 day(s) Oct, Contour Next Test - as directed In Vitro Daily as needed for 90 day(s) Oct, Glucometer as directed GLUCOMETER Daily for 99 days Oct, Lancets - as directed Daily as needed for 90 day(s) Oct Paxil 30 mg 1 tablet in the morning Orally Once a day for 90 day(s) Insurance Providers Payer Name Payer Address Payer Phone Insured Name Patient Relati onship to Insured Coverage Start Date Coverage End Date MEDICARE COMPLETE [facility] [address] [address] [facility] [phone] BENNIE BAEZA MEDICAID [employer] [address] [facility] [id number] BENNIE BAEZA
--- OUTSIDE RECORDS SUMMARY | 2020-12-11 08:40 | CCD | Continuity of Care Document ---
Author Author Dora FALCON [facility] Organization Unknown Address [address], [address] [place] [address] Phone [phone] Care Team Providers Care Driving School Instructor Name Role Phone Geena Hogan AUTM Carmelita Jason M.D. AUTM [phone] AUTM Unavailable Problems Active Problems Provider Date Langerhans cell [...] Felix M.D. Onset: 03/02 Cannabis abuse, uncomplicated Chris Felix M.D. Onset: 03/02/2017 Carotid artery occlusion Chris Felix M.D. Onset: 03/02 Pain in right lower limb Chris Felix M.D. Onset: 03/02 Pain in left lower [...] PPd Recreational Drug Use Current Drug User MARIJUAN A AT [facility], former use of cocaine and crack Tobacco Use Start: Unknown Report Cessation Counseling Was Provided Smoking Status Reviewed: 09/04/20 Patient is a current smoker, smokes every day 1 PPd Allergies, Adverse Reactions, Alerts Active Allergies Criticality Reaction | Severity Comments Date NKDA Unable to assess criticality 03/25/2018 Bee Sting Unable to assess criticality 03/02/2017 Medications Active Medications SIG Qnty Indications Ordering Provide r Date Arnuity Ellipta 200mcg/Act Aerosol 1 puff every day 30units J43.1 Alin Veras D.O. 05/30/2020 Famotidine 40mg Tablets take 1 tablet by mouth every evening. 30tabs K29.80 Babar Vazquez MD 05/11/2020 Miralax 17GM/Scoop Powder take 8.5 grams daily as directed. 510gm K59.00 Babar Vazquez MD 05/11/2020 Anoro Ellipta 62.5-25mcg/Inh Aeros ol 1 puff every day 60units J43.1 Alin Veras D.O. 06/10/2018 Proair HFA 108(90Base) mcg/Act Aer osol 2 puffs four times a day as needed 8.500gm Prasanth Duval 04/28/2017 Gabapentin 400mg Capsules bid Unknown Topiramate 100mg Tablets 1 tab by mouth 2 X every day Unknown Paroxetine HCL 30mg Tablets 1 tab by mouth every day Unknown Atorvastatin Calcium 80mg Tablets 1 tab by mouth every day Unknown Clopidogrel Bisulfate 75mg Tablets 1 tab by mouth every day---Dr. Hogan, stroke hx Unkn own Aspirin 81mg Tablets DR 1 tab by mouth every day Unknown Ipratropium [place]/Albuterol Sulfate 0.5-2.5(3)mg/3ML Solution 1 vial via neb four times a day as needed 360ml Alin Veras D.O. Ezetimibe 10mg Tablets by mouth every day Unknown Tizanidine HCL 4mg Tablets bi d prn Unknown Zofran 4mg Tablets take 1 tab every 12 hours as needed for nausea 4tabs Babar Vazquez MD Tymlos 3120mcg/1.56ML Solution Pen -Inject Daily injection Unknown Immunizations CPT Code Status Date Vaccine Lot # [id number] Given 09/03/2018 Prevnar 13 32528 Given 11/27/2017 Influenza Virus Vaccine, Quadrivalent, Slit Virus, Im Use Vital Signs Date Vital Result Comment 11/09/2020 8:56am BP Systolic 128 mmHg BP Diastolic 84 mmHg Height 66 inches 5'6" Weight 98.00 lb BMI (Body Mass Index) 15.8 kg/m2 [place] Body Weight 130 lb Weight 44.453 kg BSA (Body Surface Area) 1.48 m2 11/08/2020 2:18pm BP Systolic 159 mmHg BP Diastolic 79 mmHg Body Temperature 98.3 F Height 66 inches 5'6" Weight 98.25 lb BMI (Body Mass Index) 15.9 kg/m2 [place] Body Weight 130 lb Weight 44.566 kg BSA (Body Surface Area) 1.48 m2 Results Test Acquired Date Facility Test Result H/L Range Note FVL/[place] 09/04/2020 [facility] SEE IMAGE FVC-Pred 3.53 L FVC-Pre 1.88 L FVC-%Pred-Pre 53 L FVC-LLN 2.79 L Fev1-Pred 2.72 L Fev1-Pre 0.93 L Fev1-%Pred-Pre 34 L Fev1-LLN 2.10 L Fev6-Pred 3.40 L Fev6-Pre 1.87 L Fev6-%Pred-Pre 54 L Fev6-LLN 2.68 L Fag0mkq-Mess 78 % Fnh6nqg-Wpr 49 % Qwr8sdh-%Pred-Pre 63 % Jrw3bkd-IRX 68 % Yrw2css-Wpbn 96 % Kjp1uhx-Ycd 99 % Jzh5afs-%Pred-Pre 103 % FEFMax-Pred 6.55 L/E/sec FEFMax-Pre 1.80 L/E/sec FEFMax-%Pred-Pre 27 L/E/sec FEFMax-LLN 4.73 L/E/sec Yan0424-Vtsj 2.42 L/E/sec Qco5949-Bbb 0.39 L/E/sec Bbz4233-%Pred-Pre 16 L/E/sec Yyk1017-ITR 1.10 L/E/sec ExpTime-Pre 6.31 sec Jgs0bal4-Lueo 81 % Gmw2mdr0-Osj 50 % Xkm8irf6-%Pred-Pre 61 % Zbb4kxs8-SHX 72 % FVL/[place] 05/30/2020 [employer] PDFReport SEE IMAGE FVC-Pred 3.53 L FVC-Pre 1.71 L FVC-%Pred-Pre 48 L FVC-LLN 2.79 L Fev1-Pred 2.72 L Fev1-Pre 0.89 L Fev1-%Pred-Pre 32 L Fev1-LLN 2.10 L Fev6-Pred 3.40 L Fev6-Pre 1.71 L Fev6-%Pred-Pre 50 L Fev6-LLN 2.68 L Gco0gag-Acov 78 % Nwn3zzt-Jkp 52 % Sbz6fom-%Pred-Pre 67 % Xej2zrs-POS 68 % Izl5kzq-Bjqg 96 % Iut5hli-Iwa 100 % Xwt1tbg-%Pred-Pre 103 % FEFMax-Pred 6.55 L/E/sec FEFMax-Pre 1.31 L/E/sec FEFMax-%Pred-Pre 20 L/E/sec FEFMax-LLN 4.73 L/E/sec Hgc1936-Yvbi 2.42 L/E/sec Qfj1337-Hxa 0.43 L/E/sec Ufa7120-%Pred-Pre 17 L/E/sec Nkz8377-WKU 1.10 L/E/sec ExpTime-Pre 6.18 sec Xch9haj5-Fbzi 81 % Tut0hgt4-Fls 52 % Bpt6ocq0-%Pred-Pre 64 % Vjn7owa5-MWM 72 % Procedures Date Code Description Status 11/09/2020 18772 Office/Outpatient Established Lo w MDM 20-29 Min Completed 11/08/2020 51023 Office/Outpatient Established Lo w MDM 20-29 Min Completed 09/04/2020 42323 Office/Outpatient Established Mo d MDM 30-39 Min Completed 09/04/2020 60310 Spirometry Completed 08/13/2020 85665 Office/Outpatient Established Lo w MDM 20-29 Min Completed 05/30/2020 81560 Tobacco Cessation Counseling Com pleted 05/30/2020 04931 Office/Outpatient Established Mo d MDM 30-39 Min Completed 05/30/2020 58222 Spirometry Completed Medical Devices Description No Information Available Encounters Type Date Location Provider Dx Diagnosis Office Visit 11/09/2020 9:00a [facility] AILIN MurrayC K59.00 Constipation, unspecified K22.70 Landa's esophagus without dysplasia R63.4 Abnormal weight loss Office Visit 11/08/2020 2:15p [facility] Dioni carrera MD M48.062 Spinal stenosis, lumbar region with neur ogenic claudication Office Visit 09/04/2020 2:00p [facility] Joe Snow SeO. J84.82 Adult pulmonary Langerhans cell histiocy tosis J43.1 Panlobular emphysema R91.8 Other nonspecific abnormal f inding of lung field F17.218 Nicotine dependence, cigaret mark, w oth disorders Office Visit 08/13/2020 9:00a [facility] AILIN MurrayC K59.00 Constipation, unspecified R63.4 Abnormal weight loss R10.11 Right upper quadrant pain R10.13 Epigastric pain K22.70 Landa's esophagus without dysplasia Office Visit 05/30/2020 9:30a [facility] FLORIDALMA Traylor J43.1 Panlobular emphysema R91.8 Other nonspecific abnormal f inding of lung field F17.218 Nicotine dependence, cigaret mark, w oth disorders J84.82 Adult pulmonary Langerhans c ell histiocytosis Assessments Date Code Description Provider 11/09/2020 K59.00 Constipation, unspecified Meliss a A Charlebois, [facility] 11/09/2020 K22.70 Landa's esophagus without dysp lasia Susie A Charlebois, [facility] 11/09/2020 R63.4 Abnormal weight loss [facility]ie A [facility]osa [facility]ebois, [facility] 11/08/2020 M48.062 Spinal stenosis, lumbar region w ith neurogenic claudication Dioni Bradshaw MD 09/04/2020 J84.82 Adult pulmonary Langerhans cell histiocytosis Alin Veras D.O. 09/04/2020 J43.1 Panlobular emphysema Alin Veras D.O. 09/04/2020 R91.8 Other nonspecific abnormal findi ng of lung field Alin Veras D.O. 09/04/2020 F17.218 Nicotine dependence, cigarettes, with other nicotine-induced disorders Alin Veras D.O. 08/13/2020 K59.00 Constipation, unspecified Meliss a A Charlebois, [facility] 08/13/2020 R63.4 Abnormal weight loss Susieargentina guzmanbois, [facility] 08/13/2020 R10.11 Right upper quadrant pain Meliss a Sandra Andersonlebois, [facility] 08/13/2020 R10.13 Epigastric pain Susie Sandra Andersonle bois, [facility] 08/13/2020 K22.70 Landa's esophagus without dysp lasia Susie A Charlebois, [facility] 05/30/2020 J43.1 Panlobular emphysema FLORIDALMA Montelongo 05/30/2020 R91.8 Other nonspecific abnormal findi ng of lung field FLORIDALMA Traylor 05/30/2020 F17.218 Nicotine dependence, cigarettes, with other nicotine-induced disorders FLORIDALMA Traylor 05/30/2020 J84.82 Adult pulmonary Langerhans cell histiocytosis FLORIDALMA Traylor Plan of Treatment 11/09/2020 - Susie A Charlebois, RPA-* K59.00 Constipation, unspecified * K22.70 Landa's esophagus without dysplasia * R63.4 Abnormal weight loss * * Comments:* Patient verbalized understanding of above plans and will seek medical attention for any acute changes. Will monitor. * Follow up:* 6 months, sooner if needed (f/u bowels) Functional Status Description No Information Available Mental Status Description No Information Available Referrals Refer to Reason for Referral Status Appt Date Dioni Bradshaw MD S/P INSERTION OF ILIAC ARTERY STENT Created [address], [address] [place] [address] [phone]
--- OUTSIDE RECORDS SUMMARY | 2020-12-11 08:40 | CCD | Continuity of Care Document ---
Author Author Dora PEREZ SYSTEMS SUPPORT ENGINEER Organization Unknown Address [address] [place] [address] Phone [phone] Care Team Providers Care Release Of Information Clerk Name Role Phone Pedro Hogan MD AUTM [phone] Geena HoganP AUTM [phone] Problems Active Problems Provider Date Vitamin D deficiency Monique Amaya MD Onset: 02/19/2017 Osteoporosis Monique Amaya MD Onset: 02/19/2017 Social History Type Date Description Comments Sex Unknown Cigarette Use Current Cigarette Smoker 5-10 Ci garettes Daily ETOH Use Rarely consumes alcohol Tobacco Use Start: Unknown Patient is a current smoker, smo kes every day trying to cut back Smoking Status Reviewed: 11/12/20 Patient is a current smoker, smokes every day trying to cut back Allergies and adverse reactions Description No Information Available Medications Active Medications SIG Qnty Indications Ordering Provide r Date Pen [place] 31G X 5 mm Misc use once daily as directed with tymlos 100units M81.0 Opal Perez NP 0 08/06/2020 Famotidine 40mg Tablets Opal Perez NP 07/19/2020 Paxil 30mg Tablets 1 by mo uth every day Unknown Topamax 100mg Tablets 1 by mouth twice a day Unknown Gabapentin 400mg Capsules 2x pd Unknown Aspir-[address] 1 by mouth every day Unknown Plavix 75mg Tablets 1 by mouth every day Unknown Lipitor 80mg Tablets 1 by mouth every day Unknown Albuterol Sulfate 0.63mg/3ML Nebul izer via nebulizer four times a day as needed Unknown Ezetimibe 10mg Tablets 1 po q d Unknown Lidocaine HCL (PF) 2% Solution gel- qid- prn Unknown Calcium Citrate + D3 [id number] Tablets 2 tabs po tid Unknown Vitamin D3 50mcg (2000 Ut) Chewtab s 3 tabs daily Unknown History Medications Tymlos 3120mcg/1.56ML Solution Pen -Inject inject 80 mcg subcu daily 4.68ml M81.0 Opal Perez, CINDA 08/06/2020 - 11/20/2020 Immunizations Description No Information Available Vital Signs Date Vital Result Comment 11/12/2020 8:41am BP Systolic 134 mmHg BP Diastolic 84 mmHg Heart Rate 81 /min Height 65 inches 5'5" Weight 100.12 lb BMI (Body Mass Index) 16.7 kg/m2 O2 % BldC Oximetry 98 % 08/10/2020 10:55am Body Temperature 97.3 F Height 65 inches 5'5" Results Test Acquired Date Facility Test Result H/L Range Note Basic Metabolic Profile 08/02/2020 [facility] [address] [place] [address] (315)- - Glucose, Fasting 92 mg/dL Normal 70-100 Blood Urea Nitrogen 6 mg/dL Low 7-18 Creatinine For GFR 0.90 mg/dL Normal 0.55-1.30 Glomerular Filtration Rate > 60.0 Normal >45 1 Sodium Level 144 mEq/L Normal 136-145 Potassium Serum 3.3 mEq/L Low 3.5-5.1 Chloride Level 113 mEq/L High 98-107 Carbon Dioxide Level 27 mEq/L Normal 21-32 Anion Gap 4 mEq/L Low 8-16 Calcium Level 8.8 mg/dL Normal 8.8-10.2 Basic Metabolic Profile 07/20/2020 [facility] [address] [place] [address] (315)- - Glucose, Fasting 77 mg/dL Normal 70-100 Blood Urea Nitrogen 4 mg/dL Low 7-18 Creatinine For GFR 0.97 mg/dL Normal 0.55-1.30 Glomerular Filtration Rate > 60.0 Normal >45 2 Sodium Level 145 mEq/L Normal 136-145 Potassium Serum 3.1 mEq/L Low 3.5-5.1 Chloride Level 112 mEq/L High 98-107 Carbon Dioxide Level 27 mEq/L Normal 21-32 Anion Gap 6 mEq/L Low 8-16 Calcium Level 8.3 mg/dL Low 8.8-10.2 Laboratory test finding 07/20/[facility] [address] [place] [address] (315)- - Total 25(Oh) Vitamin D 35.9 NG/ML Normal 30.0-100.0 1 Units are mL/min/1.73 m2 Chronic Kidney Disease Staging per NKF: Stage I & II GFR >=60 Normal to Mildly Decreased Stage III GFR 30-59 Moderately Decreased Stage IV GFR 15-29 Severely Decreased Stage V GFR <15 Very Little GFR Left ESRD GFR <15 on INSPECTOR TESTER SORTER 2 Units are mL/min/1.73 m2 Chronic Kidney Disease Staging per NKF: Stage I & II GFR >=60 Normal to Mildly Decreased Stage III GFR 30-59 Moderately Decreased Stage IV GFR 15-29 Severely Decreased Stage V GFR <15 Very Little GFR Left ESRD GFR <15 on INSPECTOR TESTER SORTER Procedures Date Code Description Status 11/12/2020 27368 Office/Outpatient Established Mo d MDM 30-39 Min Completed 08/10/2020 48729 Office/Outpatient Established Mi nimal Problem(S) Completed 08/06/2020 97256 Office/Outpatient Established Mo d MDM 30-39 Min Completed 07/19/2020 70677 Office/Outpatient Established Mo d MDM 30-39 Min Completed Medical Devices Description No Information Available Encounters Type Date Location Provider Dx Diagnosis Office Visit 11/12/2020 8:45a DR. Monique Perez, N P M81.0 Age-related osteoporosis w/o current pathological fracture Z71.6 Tobacco abuse counseling Office Visit 08/10/2020 11:00a DR. Monique Amaya [facility] M81.0 Age-related osteoporosis w/o current pathological fracture Office Visit 08/06/2020 11:45a DR. Monique Perez, N P M81.0 Age-related osteoporosis w/o current pathological fracture E83.51 Hypocalcemia E55.9 Vitamin D deficiency, unspec ified Office Visit 07/20/2020 12:45p DR. Monique Perez, N P E83.51 Hypocalcemia Office Visit 07/19/2020 10:30a DR. Monique Perez, N P M81.0 Age-related osteoporosis w/o current pathological fracture E55.9 Vitamin D deficiency, unspec ified Z87.310 Personal history of (healed) osteoporosis fracture Assessments Date Code Description Provider 11/12/2020 M81.0 Age-related osteoporosis without current pathological fracture Opal Perez, CINDA 11/12/2020 Z71.6 Tobacco abuse counseling Opal Perez, CINDA 08/10/2020 M81.0 Age-related osteoporosis without current pathological fracture Monique Amaya MD 08/10/2020 M81.0 Age-related osteoporosis without current pathological fracture Endo Nurses 08/06/2020 M81.0 Age-related osteoporosis without current pathological fracture Opal Perez, SYSTEMS SUPPORT ENGINEER 08/06/2020 E83.51 Hypocalcemia Opal Mayes ce, SYSTEMS SUPPORT ENGINEER 08/06/2020 E55.9 Vitamin D deficiency, unspecifie d Opal Perez, SYSTEMS SUPPORT ENGINEER 07/20/2020 E83.51 Hypocalcemia Opal Mayes ce, SYSTEMS SUPPORT ENGINEER 07/19/2020 M81.0 Age-related osteoporosis without current pathological fracture Opal Perez, SYSTEMS SUPPORT ENGINEER 07/19/2020 E55.9 Vitamin D deficiency, unspecifie d Opal Perez, SYSTEMS SUPPORT ENGINEER 07/19/2020 Z87.310 Personal history of (healed) ost eoporosis fracture Opal Perez NP Plan of Treatment Future Appointment(s):* 01/22/2021 9:15 am - Opal Perez NP at DR. Monique Amaya * 05/07/2021 9:00 am - Opal Perez NP at DR. Monique Amaya 11/12/2020 - Opal Perez NP* M81.0 Age-related osteoporosis without current pathological fracture* New Labs:* Vitamin D 25-Hydroxy, Scheduled: 04/22/21 * Calcium Level, Scheduled: 04/22/21 * Comments:* Pt received Reclast infusion at [facility] 06/30/17- did not have pain Had Reclast 04/25/2019 at [facility] 06/29/2019- calcium= 8.6, SCR= 0.92, GFR=>60Dexa scan 06/29/2019- T-score sp= -1.6(increased by 13.2%), T-score Right FN= -2.3, Right total= -3.1(increased by 6.4%), Left FN= -2.4, Left total= -2.9(increased 0.2%). Due to compression fx may benefit from Forteo or Tymlos. Pt is still smoking. Labs done 07/20/20- calcium= 8.3, Scr= 0.97, GFR= >60- pt was asked to increase Calcium supplementLabs done 08/02/20- calcium= 8.8, Scr= 0.97, GFR= > 60 Tymlos started 3 months ago.Currently taking Calcium gummies 500mg TID( 2 gummies = 500mg ) Labs done 10/07/20- calcium= 8.6, scr= 0.89, GFR= >60Will continue same. Recheck in 3 months. addendum: patient was advised after office visit that we need to see her in 3 months to be sure that she has been successful in smoking cessation or tymlos will not be refilled as the smoking counteracts the efficacy of the medication. cbf * Follow up:* RTO 6 months JL * Z71.6 Tobacco abuse counseling* Comments:* She was counseled about the multiple ill effects of smoking including heart disease lung disease, cancer and osteoporosisPt has a plan to start Nicoderm patches. Functional Status Description No Information Available Mental Status Description No Information Available Referrals Description No Information Available
--- OUTSIDE RECORDS SUMMARY | 2020-12-11 08:41 | CCD | Continuity of Care Document ---
Author Author Dora PEREZ ANIMAL CYTOLOGIST Organization Unknown Address [address] [place] [address] Phone [phone] Care Team Providers Care State Appellate Clerk Name Role Phone Pedro Hogan MD AUTM [phone] Geena HoganP AUTM [phone] Problems Active Problems Provider Date Vitamin D deficiency Monique Amaya MD Onset: 02/19/2017 Osteoporosis Monique Amaya MD Onset: 02/19/2017 Social History Type Date Description Comments Sex Unknown Cigarette Use Current Cigarette Smoker 5-10 Ci garettes Daily ETOH Use Rarely consumes alcohol Tobacco Use Start: Unknown Patient is a current smoker, smo kes every day trying to cut back Smoking Status Reviewed: 08/06/20 Patient is a current smoker, smokes every day trying to cut back Allergies, Adverse Reactions, Alerts Description No Information Available Medications Active Medications SIG Qnty Indications Ordering Provide r Date Tymlos 3120mcg/1.56ML Solution Pen -Inject inject 80 mcg subcu daily 4.68ml M81.0 Opal Perez NP 08/06/2020 Pen [place] 31G X 5 mm Misc use once [...] qid- prn Unknown Calcium Citrate + D3 [id number] Tablets 2 tabs po tid Unknown Vitamin D3 50mcg (1999 Ut) Chewtab s 3 tabs daily Unknown Immunizations Description No Information Available Vital Signs Date Vital Result Comment 08/10/2020 10:55am Body Temperature 97.3 F Height 65 inches 5'5" 08/06/2020 11:37am BP Systolic 110 mmHg BP Diastolic 80 mmHg Heart Rate 88 /min Body Temperature 97.5 F Height 65 inches 5'5" Weight 103.50 lb BMI (Body Mass Index) 17.2 kg/m2 Results Test Acquired Date Facility Test Result H/L Range Note Basic Metabolic Profile 08/02/2020 [facility] [address] [place] [address] (315)- - Glucose, Fasting 92 mg/dL Normal [...] mg/dL Normal 8.8-10.2 Basic Metabolic Profile 07/20/2020 [facility] [address] [place] [address] (315)- - Glucose, Fasting 77 mg/dL Normal [...] mg/dL Low 8.8-10.2 Laboratory test finding 07/20/2020 [facility] [address] [place] [address] (315)- - Total 25(Oh) Vitamin D 35.9 NG/ML Normal 30.0-100.0 1 Units are mL/min/1.73 m2 Chronic Kidney Disease Staging per NKF: Stage I & II GFR >=60 Normal to Mildly Decreased Stage III GFR 30-59 Moderately Decreased Stage IV GFR 15-29 Severely Decreased Stage V GFR <15 Very Little GFR Left ESRD GFR <15 on LOCK AND DAM REPAIRER 2 Units are mL/min/1.73 m2 Chronic Kidney Disease Staging per NKF: Stage I & II GFR >=60 Normal to Mildly Decreased Stage III GFR 30-59 Moderately Decreased Stage IV GFR 15-29 Severely Decreased Stage V GFR <15 Very Little GFR Left ESRD GFR <15 on LOCK AND DAM REPAIRER Procedures Date Code Description Status 08/10/2020 32165 Office/Outpatient Established Mi nimal Problem(S) Completed 08/06/2020 29690 Office/Outpatient Established Mo d MDM 30-39 Min Completed 07/19/2020 16219 Office/Outpatient Established Mo d MDM 30-39 Min Completed Medical Devices Description No Information Available Encounters Type Date Location Provider Dx Diagnosis Office Visit 08/10/2020 11:00a DR. Monique Amaya [facility] Nurses M81.0 Age-related osteoporosis w/o current pathological fracture Office Visit 08/06/2020 11:45a DR. Monique Perez, N P M81.0 Age-related osteoporosis w/o current pathological fracture E83.51 Hypocalcemia E55.9 Vitamin D deficiency, unspec ified Office Visit 07/20/2020 12:45p Jose Bharwdaj P E83.51 Hypocalcemia Office Visit 07/19/2020 10:30a DR. Monique Perez, N P M81.0 Age-related osteoporosis w/o current pathological fracture E55.9 Vitamin D deficiency, unspec ified Z87.310 Personal history of (healed) osteoporosis fracture Assessments Date Code Description Provider 08/10/2020 M81.0 Age-related osteoporosis without current pathological fracture Monique Amaya MD 08/10/2020 M81.0 Age-related osteoporosis without current pathological fracture Endo Nurses 08/06/2020 M81.0 Age-related osteoporosis without current pathological fracture Opal Perez, ANIMAL CYTOLOGIST 08/06/2020 E83.51 Hypocalcemia Opal Mayes ce, ANIMAL CYTOLOGIST 08/06/2020 E55.9 Vitamin D deficiency, unspecifie d Opal Perez, ANIMAL CYTOLOGIST 07/20/2020 E83.51 Hypocalcemia Opal Mayes ce, ANIMAL CYTOLOGIST 07/19/2020 M81.0 Age-related osteoporosis without current pathological fracture Opal Perez, CINDA 07/19/2020 E55.9 Vitamin D deficiency, unspecifie d Opal Perez, ANIMAL CYTOLOGIST 07/19/2020 Z87.310 Personal history of (healed) ost eoporosis fracture Opal Perez NP Plan of Treatment Future Appointment(s):* 11/12/2020 8:45 am - Opal Perez NP at DR. Monique Amaya 08/06/2020 - Opal Perez NP* M81.0 Age-related osteoporosis without current pathological fracture* New Medication:* Tymlos 3120 mcg/1.56ML - inject 80 mcg subcu daily * Pen Banks 31 G X 5 mm - use once daily as directed with tymlos * Comments:* Pt received Reclast infusion at [facility] 06/30/17- did not have pain Had Reclast 04/25/2019 at [facility] 06/29/2019- calcium= 8.6, SCR= 0.92, GFR=>60Dexa scan 06/29/2019- T-score sp= -1.6(increased by 13.2%), T-score Right FN= -2.3, Right total= -3.1(increased by 6.4%), Left FN= -2.4, Left total= -2.9(increased 0.2%). Due to compression fx may benefit from Forteo or Tymlos. On Calcium 600 mg 1 tab BID Pt is still smoking. Labs done 6/4/21- calcium= 8.3, Scr= 0.97, GFR= >60- pt was asked to increase Calcium supplementLabs done 08/02/20- calcium= 8.8, Scr= 0.97, GFR= >60 Now stable to start Tymlos * Follow up:* RTO nurse schedule for Tymlos training. JL * E83.51 Hypocalcemia* Comments:* as above * E55.9 Vitamin D deficiency, unspecified* Comments:* 04/18/2019- Vit D= 29.7- unstableOn Vit D 3000 iu qd Labs done 07/20/20- Vit D level = 35.9 Functional Status Description No Information Available Mental Status Description No Information Available Referrals Description No Information Available
--- OUTSIDE RECORDS SUMMARY | 2020-12-11 08:41 | CCD ---
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 Active confirm ed 10930325 Problem Tobacco use disorder F17.200 Active confirmed 043178501 Problem PAD (peripheral artery disease) I73.9 Active confi rmed 778839223 Problem History of [place] (myocardial infarction) I25.2 Ac tive confirmed 397043882 Problem Other chronic pain G89.29 Active confirmed 8 1088485 Problem Constipation, unspecified constipation type K59.00 Active confirmed 31319729 Problem Influenza vaccination declined Z28.21 Active confir med 393425514 Problem Epidermoid cyst of skin of chest 706.2 Active conf irmed 021273145 Problem Frequency-urgency syndrome N31.8 Active confirmed 699428537 Problem Osteoporosis 733.00 Active confirmed 3448995 6 Problem Chronic pain syndrome G89.4 Active confirmed 849210734 Problem 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 Active confirmed 2 74466038 Problem Stress at home F43.9 Active confirmed 94130 5001 Problem 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 Ac tive confirmed 831031973 Problem Myalgia M79.1 Active confirmed 72185499 Problem PAD (peripheral artery disease) 443.9 Active confi rmed 868617533 Problem Chronic obstructive pulmonary disease, unspecified COPD ty pe J44.9 Active confirmed 24773799 Problem History of [place] (myocardial infarction) 412 Ac tive confirmed 006867767 Problem Cocaine abuse F14.10 Active confirmed 516593 03 Problem Seizure disorder 345.90 Active confirmed 128 118247 Problem Stuttering F80.81 Active confirmed 18853854 Problem History of CVA (cerebrovascular accident) V12.54 Active confirmed 525649526 Problem Perimenopausal atrophic vaginitis N95.2 Active confirmed 493118693 Problem Bilateral hand pain 729.5 Active confirmed 71380714 Problem Vaginal bleeding N93.9 Active confirmed 289 363195 Problem Peripheral neuropathy 356.9 Active confirmed 79093909 Problem Degenerative disc disease, lumbar M51.36 Active confirmed 81222840 Problem Hip arthritis M16.10 Active confirmed 890193 06 Problem COPD exacerbation J44.1 Active confirmed 19 7694993 Problem S/P insertion of iliac artery stent Z95.828 Acti ve confirmed 699338915 Problem Sacroiliac inflammation M46.1 Active confirmed 89406938 Problem COPD (chronic obstructive pulmonary disease) 496 Active confirmed 40513642 Problem Hypoglycemia E16.2 Active confirmed 8848614 03 Problem Cervical facet syndrome M46.92 Active confirmed 297532182 Problem DDD (degenerative disc disease), lumbar 722.52 Active confirmed 23298536 Problem Osteoarthritis 715.90 Active confirmed 44740 5006 Problem 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 confirm ed 92712916 Problem Tobacco abuse 305.1 Active confirmed 950886 05 Problem Seizure disorder G40.909 Active confirmed 12 1091431 Problem COPD with exacerbation J44.1 Active confirmed 760201187 Problem Hyperlipidemia LDL goal <100 272.4 Active confirme d 71794860 Problem Gastroesophageal reflux disease, esophagitis pre sence not specified K21.9 Active confirmed 597293877 Problem Adjustment disorder with mixed anxiety and depressed mood F43.23 Active confirmed 391306141 ALLERGIES Allergen (clinical drug ingredient) Drug/Non Drug Allergy do cumented on EMR Reaction Allergy Type Onset Date Status varenicline Chantix([facility] Code:[address]-09) depression Drug Allergy Active Wellbutrin Nightmares Drug Allergy Active ENCOUNTERS from 1960 to 2020-11-09 Encounter Location Date Provider Diagnosis [address] [phone] [place] [address] Oct, Geena Hogan Hypokalemia E87.6 IMMUNIZATIONS Vaccine Route Administration Date Status Pneumovax [...] Education Language: Question Answer Notes Languages spoken: Kiswahili Yazidism: Question Answer Notes Yazidism 33 None Sexual Hx: Question Answer Notes [...] Notes Start Da te End Date Status Topamax 100 MG 1 tablet Orally Twice a day for 90 day(s) Active tiZANidine HCl 4 MG 1 tablet Oral BID prn for 30 Days Not-Taking Clopidogrel Bisulfate 75 MG 1 tablet Orally Once a day for 90 da ys 28 Nov, 2018 Active Alcohol Swabs 70 % as directed Daily as needed for 90 day(s ) E16.2, dispense brand covered by insurance/compatible w/ glucometer Oct, Active Ondansetron HCl 4 MG 1 tablet Orally every 6-8 hours as needed f or 5 day(s) Mar, Active Contour Next Test - as directed In Vitro Daily as needed for 90 day(s) E16.2, dispense brand covered by insurance/compatible w/ glucometer Oct, Active Ciprofloxacin HCl 500 MG 1 tablet Orally every 12 hrs for 5 day( s) Dec, Not-Taking Lancets - as directed Daily as needed for 90 day(s ) E16.2, dispense brand covered by insurance/compatible w/ glucometer Oct, Active Bactrim DS 800-160 MG 1 tablet Orally Twice a day for 3 days Nov, Not-Taking Paxil 30 mg 1 tablet in the morning Orally Once a day for 90 day(s) Active tiZANidine HCl 4 MG 2 tablets Orally before bedt geetha (not t o exceed 24mg/day) for 5 days Nov, Not-Taking Albuterol Sulfate (2.5 MG/3ML) 0.083% 3 ml as needed I nhalation Three times a day for 14 day(s) Active Ezetimibe 10 MG 1 tablet Orally Once a day for 90 Active Cephalexin 500 MG 1 capsule Orally twice daily for 7 day(s) Sep, Active Gabapentin 400 MG 1 capsule Orally bid for 90 days Feb, Active Lidocaine HCl Urethral/Mucosal 2 % as directed Externally qid fo r 21 days Apr, Active Albuterol Sulfate HFA 108 (90 Base) MCG/ACT 2 puffs as needed Inhalation every 6 hrs Active Aspir-81 81 MG 1 tablet Orally Once a day for 90 days Active Glucometer as directed GLUCOMETER Daily for 99 days E16.2, dispense brand covered by insurance/compatible w/ glucometer Oct, Active ALPRAZolam 0.5 MG 1 tablet as needed Orally Twice a day (MDD;2) for 30 Days June, Not-Taking Lipitor 80 MG 1 tablet Orally Once a day for 90 days Active Klor-Con M20 20 MEQ 2 tablet with food Orally Once a day for 30 Days total dosage 40mEq Jul, Active Pantoprazole Sodium 20 MG 1 tablet Orally Once a day for 30 day(s) stop famotidine, stop omeprazole Mar, Not-Taking PROCEDURES No Information RESULTS No Results REASON FOR VISIT potassium MEDICAL (GENERAL) HISTORY Type Description Date Medical History History of CVA (cerebrovascular accident ) Medical History History of [place] (my[place] infarction) Medical History Seizure disorder Medical [...] Notes Treatment Notes Treatm ent Clinical Notes Oct, Hypokalemia (ICD-10 - E87.6) PLAN OF TREATMENT Medication Medication Name Sig [...] Daily as needed for 90 day(s) Oct Future Test Test Name Order Date Potassium Serum Level [id number] Insurance Providers Payer Name Payer Address Payer Phone Insured Name Patient Relati onship to Insured Coverage Start Date Coverage End Date MEDICAID [employer] [address] [facility] [id number] [place] MEDICARE COMPLETE [facility] [address] [address] [facility] [id number] BENNIE BAEZA
--- OUTSIDE RECORDS SUMMARY | 2020-12-11 08:41 | CCD | Continuity of Care Document ---
Author Author Dora [facility]Z [facility] Organization Unknown Address [address] [place] [address] Phone [phone] Care Team Providers Care Biodiesel Division Manager Name Role Phone Pedro Hogan MD AUTM [phone] Geena HoganP AUTM [phone] Problems Active Problems Provider Date Vitamin D [...] 4.68ml M81.0 Opal Perez NP 08/06/2020 [place] 31G X 5 mm Misc use once [...] qid- prn Unknown Calcium Citrate + D3 [id number] Tablets 2 tabs po tid Unknown Vitamin [...] H/L Range Note Basic Metabolic Profile 08/02/2020 [facility] [address] [place] [address] (315)- - Glucose, Fasting 92 mg/dL Normal [...] mg/dL Normal 8.8-10.2 Basic Metabolic Profile 07/20/2020 [facility] [address] [place] [address] (315)- - Glucose, Fasting 77 mg/dL Normal [...] mg/dL Low 8.8-10.2 Laboratory test finding [facility] [address] [place] [address] (315)- - Total 25(Oh) Vitamin D 35.9 NG/ML Normal 30.0-100.0 1 Units are mL/min/1.73 m2 Chronic Kidney Disease Staging per NKF: Stage I & II GFR >=60 Normal to Mildly Decreased Stage III GFR 30-59 Moderately Decreased Stage IV GFR 15-29 Severely Decreased Stage V GFR <15 Very Little GFR Left ESRD GFR <15 on SENIOR PROJECT ENGINEER 2 Units are mL/min/1.73 m2 Chronic Kidney Disease Staging per NKF: Stage I & II GFR >=60 Normal to Mildly Decreased Stage III GFR 30-59 Moderately Decreased Stage IV GFR 15-29 Severely Decreased Stage V GFR <15 Very Little GFR Left ESRD GFR <15 on SENIOR PROJECT ENGINEER Procedures Date Code Description Status 11/12/2020 75396 Office/Outpatient Established Mo d MDM 30-39 Min Completed 08/10/2020 30548 Office/Outpatient Established Mi nimal Problem(S) Completed 08/06/2020 57495 Office/Outpatient Established Mo d MDM 30-39 Min Completed 07/19/2020 06863 Office/Outpatient Established Mo d MDM 30-39 Min Completed Medical Devices Description No Information Available Encounters Type Date Location Provider Dx Diagnosis Office Visit 11/12/2020 8:45a DR. Monique Perez, Jose P M81.0 Age-related osteoporosis w/o current pathological fracture Z71.6 Tobacco abuse counseling Office Visit 08/10/2020 11:00a DR. Monique Whitman Nurses M81.0 Age-related osteoporosis w/o current pathological fracture Office Visit 08/06/2020 11:45a Jose Bhardwaj P M81.0 Age-related osteoporosis w/o current pathological fracture E83.51 Hypocalcemia E55.9 Vitamin D deficiency, unspec ified Office Visit 07/20/2020 12:45p Jose Bhardwaj P E83.51 Hypocalcemia Office Visit 07/19/2020 10:30a [...] osteoporosis without current pathological fracture Opal Perez, [employer] 08/06/2020 E83.51 Hypocalcemia Opal Mayes ce, [employer] 08/06/2020 E55.9 Vitamin D deficiency, unspecifie d Opal Perez, [employer] 07/20/2020 E83.51 Hypocalcemia Opal Mayes ce, [employer] 07/19/2020 M81.0 Age-related osteoporosis without current pathological fracture Opal Perez, CINDA 07/19/2020 E55.9 Vitamin D deficiency, unspecifie d Opal Perez, [employer] 07/19/2020 Z87.310 Personal history of (healed) ost eoporosis fracture Opal Perez NP Plan of Treatment 11/12/2020 - Opal Perez NP* M81.0 Age-related osteoporosis without current pathological fracture* New Labs:* Vitamin D 25-Hydroxy, Scheduled: 04/22/21 * Calcium Level, Scheduled: 04/22/21 * Comments:* Pt received Reclast infusion at [facility] 06/30/17- did not have pain Had Reclast 04/25/2019 at [facility] 06/29/2019- calcium= 8.6, SCR= 0.92, GFR=>60Dexa [...] 0.89, GFR= >60Will continue same. Recheck in 6 months. * Follow up:* RTO 6 months JL * Z71.6 Tobacco abuse counseling* Comments:* She was counseled about the multiple ill effects of smoking including heart disease lung disease, cancer and osteoporosisPt has a plan to start Nicoderm patches. Functional Status Description No Information Available Mental Status Description No Information Available Referrals Description No Information Available
--- OUTSIDE RECORDS SUMMARY | 2020-12-11 08:41 | CCD | Continuity of Care Document ---
Author Author [facility] Organization Unknown Address [address] [facility] [facility], [address] [place] [address] Phone [phone] Care Team Providers Care Musical String Maker Name Role Phone Geena Hogan AUTM Carmelita Jason M.D. AUTM [phone] AUTM Unavailable Problems Active Problems Provider Date [...] tab by mouth every day Unknown Ipratropium [place]/Albuterol Sulfate 0.5-2.5(3)mg/3ML Solution 1 vial via neb [...] CPT Code Status Date Vaccine Lot # [id number] Given 09/03/2018 Prevnar 13 41082 Given 11/27/2017 Influenza Virus Vaccine, Quadrivalent, Slit Virus, Im Use Vital Signs Date Vital Result Comment 11/09/2020 8:56am BP Systolic 128 mmHg BP Diastolic 84 mmHg Height 66 inches 5'6" Weight 98.00 lb BMI (Body Mass Index) 15.8 kg/m2 [place] Body Weight 130 lb Weight 44.453 kg BSA (Body Surface Area) 1.48 m2 11/08/2020 2:18pm BP Systolic 159 mmHg BP Diastolic 79 mmHg Body Temperature 98.3 F Height 66 inches 5'6" Weight 98.25 lb BMI (Body Mass Index) 15.9 kg/m2 [place] Body Weight 130 lb Weight 44.566 kg [...] L Fev6-%Pred-Pre 54 L Fev6-LLN 2.68 L Tjo0boy-Rhih 78 % Shj7fss-Cql 49 % Pjg8ras-%Pred-Pre 63 % Uza1gra-VQO 68 % Rid4tfx-Wbfs 96 % Frk5dsb-Vro 99 % Wgo1lgs-%Pred-Pre 103 % FEFMax-Pred 6.55 L/E/sec FEFMax-Pre 1.80 L/E/sec FEFMax-%Pred-Pre 27 L/E/sec FEFMax-LLN 4.73 L/E/sec Cgd9243-Ugnz 2.42 L/E/sec Mdw7044-Nyw 0.39 L/E/sec Knx0729-%Pred-Pre 16 L/E/sec Kyo1284-IAJ 1.10 L/E/sec ExpTime-Pre 6.31 sec Vsg7odt8-Yczo 81 % Usd1gug9-Hlq 50 % Tqb2xzx9-%Pred-Pre 61 % Omr1bqz1-ZNS 72 % FVL/[place] 05/30/2020 [employer] PDFReport SEE IMAGE FVC-Pred 3.53 L FVC-Pre 1.71 L FVC-%Pred-Pre 48 L FVC-LLN 2.79 L Fev1-Pred 2.72 L Fev1-Pre 0.89 L Fev1-%Pred-Pre 32 L Fev1-LLN 2.10 L Fev6-Pred 3.40 L Fev6-Pre 1.71 L Fev6-%Pred-Pre 50 L Fev6-LLN 2.68 L Cwa1gcw-Tcqh 78 % Nlo3jek-Wxl 52 % Cgy9bml-%Pred-Pre 67 % Jjk5dyt-YOF 68 % Jrv9pya-Mhfi 96 % Qbx0ebg-Lax 100 % Dsi9qob-%Pred-Pre 103 % FEFMax-Pred 6.55 L/E/sec FEFMax-Pre 1.31 L/E/sec FEFMax-%Pred-Pre 20 L/E/sec FEFMax-LLN 4.73 L/E/sec Dwc0811-Ggji 2.42 L/E/sec Xwq6998-Wxb 0.43 L/E/sec Pug8949-%Pred-Pre 17 L/E/sec Bhg9307-PDR 1.10 L/E/sec ExpTime-Pre 6.18 sec Jbq3spx8-Zuuu 81 % Izf7zyx4-Caz 52 % Vbd6kwz5-%Pred-Pre 64 % Pov4rri1-SOH 72 % Procedures Date Code Description Status 11/08/2020 94336 Office/Outpatient Established Lo w MDM 20-29 Min Completed 09/04/2020 02424 Office/Outpatient Established Mo d MDM 30-39 Min Completed 09/04/2020 46020 Spirometry Completed 08/13/2020 33329 Office/Outpatient Established Lo w MDM 20-29 Min Completed 05/30/2020 81136 Tobacco Cessation Counseling Com pleted 05/30/2020 32519 Office/Outpatient Established Mo d MDM 30-39 Min Completed 05/30/2020 02487 Spirometry Completed 05/11/2020 46636 Office/Outpatient Established Mo d MDM 30-39 Min Completed Medical Devices Description No Information Available Encounters Type Date Location Provider Dx Diagnosis Office Visit 11/08/2020 2:15p [facility] Surgery Practice Dioni carrera MD M48.062 Spinal stenosis, lumbar region with neur ogenic claudication Office Visit 09/04/2020 2:00p [facility] Pulmonary/Thoracic Alin contreras, D.O. J84.82 Adult pulmonary Langerhans cell histiocy tosis J43.1 Panlobular emphysema R91.8 Other nonspecific abnormal f inding of lung field F17.218 Nicotine dependence, cigaret mark, w oth disorders Office Visit 08/13/2020 9:00a [facility] Falcon RPA-C K59.00 Constipation, unspecified R63.4 Abnormal weight loss R10.11 Right upper quadrant pain R10.13 Epigastric pain K22.70 Landa's esophagus without dysplasia Office Visit 05/30/2020 9:30a [facility] Pulmonary/Thoracic FLORIDALMA Traylor J43.1 Panlobular emphysema R91.8 Other nonspecific abnormal f inding of lung field F17.218 Nicotine dependence, cigaret mark, w oth disorders J84.82 Adult pulmonary Langerhans c ell histiocytosis Office Visit 05/11/2020 11:30a [facility] ENT Practice Susie Falcon RPA-C R10.11 Right upper quadrant pain R10.13 Epigastric pain K29.80 Duodenitis without bleeding R63.4 Abnormal weight loss K59.00 Constipation, unspecified K22.70 Landa's esophagus without dysplasia Assessments Date Code Description Provider 11/09/2020 K59.00 Constipation, unspecified Meliss a A Charlebois, [facility] 11/09/2020 K22.70 Landa's esophagus without dysp lasia Susei A Charlebois, [facility] 11/09/2020 R63.4 Abnormal weight loss Susie A C harlebois, [facility] 11/08/2020 M48.062 Spinal stenosis, lumbar region w ith neurogenic claudication Dioni Bradshaw MD 09/04/2020 J84.82 Adult pulmonary Langerhans cell histiocytosis Alin Veras D.O. 09/04/2020 J43.1 Panlobular emphysema Alin Veras D.O. 09/04/2020 R91.8 Other nonspecific abnormal findi ng of lung field Alin Veras D.O. 09/04/2020 F17.218 Nicotine dependence, cigarettes, with other nicotine-induced disorders Alin Veras D.O. 08/13/2020 K59.00 Constipation, unspecified Meliss a A Charlebois, [facility] 08/13/2020 R63.4 Abnormal weight loss Susie A C harlebois, [facility] 08/13/2020 R10.11 Right upper quadrant pain Meliss a A Charlebois, [facility] 08/13/2020 R10.13 Epigastric pain Susie A Mic bois, [facility] 08/13/2020 K22.70 Landa's esophagus without dysp lasia Susie A Charlebois, [facility] 05/30/2020 J43.1 Panlobular emphysema FLORIDALMA Montelongo 05/30/2020 R91.8 Other nonspecific abnormal findi ng of lung field FLORIDALMA Traylor 05/30/2020 F17.218 Nicotine dependence, cigarettes, with other nicotine-induced disorders FLORIDALMA Traylor 05/30/2020 J84.82 Adult pulmonary Langerhans cell histiocytosis FLORIDALMA Traylor 05/11/2020 R10.11 Right upper quadrant pain Meliss a A Charlebois, [facility] 05/11/2020 R10.13 Epigastric pain Susie A Mic bois, [facility] 05/11/2020 K29.80 Duodenitis without bleeding Dolly marcus Flores Carmencita, [facility] 05/11/2020 R63.4 Abnormal weight loss Susie ignacio, [facility] 05/11/2020 K59.00 Constipation, unspecified Meliss connor Haileeleni, [facility] 05/11/2020 K22.70 Landa's esophagus without dysp lasia Susie A Carmencita [facility] Plan of Treatment 11/09/2020 - Susie Flores Monicaskipeleni [facility]* K59.00 Constipation, unspecified * K22.70 Landa's esophagus [...] INSERTION OF ILIAC ARTERY STENT Created [address] [facility] [address] [place] [address] [phone]
--- OUTSIDE RECORDS SUMMARY | 2020-12-11 08:41 | CCD ---
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 Active confirm ed 73672013 Problem Tobacco use disorder F17.200 Active confirmed 092440895 Problem PAD (peripheral artery disease) I73.9 Active confi rmed 003656339 Problem History of [place] (my[place] infarction) I25.2 Ac tive confirmed 261309289 Problem Other chronic pain G89.29 Active confirmed 8 6310994 Problem Constipation, unspecified constipation type K59.00 Active confirmed 26681256 Problem Influenza vaccination declined Z28.21 Active confir med 872349195 Problem Epidermoid cyst of skin of chest 706.2 Active conf irmed 859851785 Problem Frequency-urgency syndrome N31.8 Active confirmed 680436363 Problem Osteoporosis 733.00 Active confirmed 8712686 6 Problem Chronic pain syndrome G89.4 Active confirmed 059880202 Problem 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 Active confirmed 2 31633043 Problem Stress at home F43.9 Active confirmed 92446 5001 Problem 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 Ac tive confirmed 524648718 Problem Myalgia M79.1 Active confirmed 40578158 Problem PAD (peripheral artery disease) 443.9 Active confi rmed 365965520 Problem Chronic obstructive pulmonary disease, unspecified COPD ty pe J44.9 Active confirmed 25658583 Problem History of [place] (my[place] infarction) 412 Ac tive confirmed 896531644 Problem Cocaine abuse F14.10 Active confirmed 384781 03 Problem Seizure disorder 345.90 Active confirmed 128 875347 Problem Stuttering F80.81 Active confirmed 80136477 Problem History of CVA (cerebrovascular accident) V12.54 Active confirmed 675920728 Problem Perimenopausal atrophic vaginitis N95.2 Active confirmed 074546473 Problem Bilateral hand pain 729.5 Active confirmed 63020684 Problem Vaginal bleeding N93.9 Active confirmed 289 462821 Problem Peripheral neuropathy 356.9 Active confirmed 80182458 Problem Degenerative disc disease, lumbar M51.36 Active confirmed 12709792 Problem Hip arthritis M16.10 Active confirmed 921488 06 Problem COPD exacerbation J44.1 Active confirmed 19 2584598 Problem S/P insertion of iliac artery stent Z95.828 Acti ve confirmed 249914433 Problem Sacroiliac inflammation M46.1 Active confirmed 19066720 Problem COPD (chronic obstructive pulmonary disease) 496 Active confirmed 09826796 Problem Hypoglycemia E16.2 Active confirmed 6138504 03 Problem Cervical facet syndrome M46.92 Active confirmed 207497981 Problem DDD (degenerative disc disease), lumbar 722.52 Active confirmed 16225022 Problem Osteoarthritis 715.90 Active confirmed 25569 5006 Problem 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 confirm ed 49119865 Problem Tobacco abuse 305.1 Active confirmed 880259 05 Problem Seizure disorder G40.909 Active confirmed 12 6605019 Problem COPD with exacerbation J44.1 Active confirmed 304780535 Problem Hyperlipidemia LDL goal <100 272.4 Active confirme d 21759296 Problem Gastroesophageal reflux disease, esophagitis pre sence not specified K21.9 Active confirmed 284346990 Problem Adjustment disorder with mixed anxiety and depressed mood F43.23 Active confirmed 802591194 ALLERGIES Allergen (clinical drug ingredient) Drug/Non Drug Allergy do cumented on EMR Reaction Allergy Type Onset Date Status varenicline Chantix([facility] Code:[address]-52) depression Drug Allergy Active Wellbutrin Nightmares Drug Allergy Active ENCOUNTERS from 1960 to 2020-10-19 Encounter Location Date Provider Diagnosis [facility] [address] [place] [address] [place] [address] Oct, Geena Hogan Hypoglycemia E16.2 IMMUNIZATIONS Vaccine Route Administration Date Status Pneumovax [...] Education Language: Question Answer Notes Languages spoken: Nauruan Taoism: Question Answer Notes Taoism 33 None Sexual Hx: Question Answer Notes [...] Information RESULTS No Results REASON FOR VISIT Diabetic supplies MEDICAL (GENERAL) HISTORY Type Description Date Medical History History of CVA (cerebrovascular accident ) Medical History History of [place] (myocardial infarction) Medical History Seizure disorder Medical [...] Treatment Notes Treatm ent Clinical Notes Oct, Hypoglycemia (ICD-10 - E16.2) PLAN OF TREATMENT Medication Medication Name Sig [...] Daily as needed for 90 day(s) Oct Insurance Providers Payer Name Payer Address Payer Phone Insured Name Patient Relati onship to Insured Coverage Start Date Coverage End Date MEDICAID [employer] [address] [facility] [id number] [place] MEDICARE COMPLETE [facility] [address] [address] [facility] [id number] [employer]ENNIE BAEZA
--- OUTSIDE RECORDS SUMMARY | 2020-12-11 08:41 | CCD ---
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 Active confirm ed 36566482 Problem Tobacco use disorder F17.200 Active confirmed 698473614 Problem PAD (peripheral artery disease) I73.9 Active confi rmed 669339158 Problem History of VT (myocardial infarction) I25.2 Ac tive confirmed 229548218 Problem Other chronic pain G89.29 Active confirmed 8 8209417 Problem Constipation, unspecified constipation type K59.00 Active confirmed 77690293 Problem Influenza vaccination declined Z28.21 Active confir med 349393208 Problem Epidermoid cyst of skin of chest 706.2 Active conf irmed 021492951 Problem Frequency-urgency syndrome N31.8 Active confirmed 665094178 Problem Osteoporosis 733.00 Active confirmed 6539544 6 Problem Chronic pain syndrome G89.4 Active confirmed 747106555 Problem 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 Active confirmed 2 54010513 Problem Stress at home F43.9 Active confirmed 07611 5001 Problem 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 Ac tive confirmed 402014352 Problem Myalgia M79.1 Active confirmed 79461464 Problem PAD (peripheral artery disease) 443.9 Active confi rmed 919439588 Problem Chronic obstructive pulmonary disease, unspecified COPD ty pe J44.9 Active confirmed 81869082 Problem History of VT (myocardial infarction) 412 Ac tive confirmed 328687009 Problem Cocaine abuse F14.10 Active confirmed 117374 03 Problem Seizure disorder 345.90 Active confirmed 128 233325 Problem Stuttering F80.81 Active confirmed 95858590 Problem History of CVA (cerebrovascular accident) V12.54 Active confirmed 129803746 Problem Perimenopausal atrophic vaginitis N95.2 Active confirmed 900955766 Problem Bilateral hand pain 729.5 Active confirmed 96087677 Problem Vaginal bleeding N93.9 Active confirmed 289 372755 Problem Peripheral neuropathy 356.9 Active confirmed 43117053 Problem Degenerative disc disease, lumbar M51.36 Active confirmed 31891763 Problem Hip arthritis M16.10 Active confirmed 944187 06 Problem COPD exacerbation J44.1 Active confirmed 19 0199322 Problem S/P insertion of iliac artery stent Z95.828 Acti ve confirmed 050852644 Problem Sacroiliac inflammation M46.1 Active confirmed 44185363 Problem COPD (chronic obstructive pulmonary disease) 496 Active confirmed 33600908 Problem Hypoglycemia E16.2 Active confirmed 5979729 03 Problem Cervical facet syndrome M46.92 Active confirmed 881233397 Problem DDD (degenerative disc disease), lumbar 722.52 Active confirmed 84859747 Problem Osteoarthritis 715.90 Active confirmed 06700 5006 Problem 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 confirm ed 31780064 Problem Tobacco abuse 305.1 Active confirmed 300309 05 Problem Seizure disorder G40.909 Active confirmed 12 8512004 Problem COPD with exacerbation J44.1 Active confirmed 034213504 Problem Hyperlipidemia LDL goal <100 272.4 Active confirme d 36581947 Problem Gastroesophageal reflux disease, esophagitis pre sence not specified K21.9 Active confirmed 869766511 Problem Adjustment disorder with mixed anxiety and depressed mood F43.23 Active confirmed 920401078 ALLERGIES Allergen (clinical drug ingredient) Drug/Non Drug Allergy do cumented on EMR Reaction Allergy Type Onset Date Status varenicline Chantix([facility] Code:[address]-01) depression Drug Allergy Active Wellbutrin Nightmares Drug Allergy Active ENCOUNTERS from 1960 to 2020-10-26 Encounter Location Date Provider Diagnosis [facility] [id number] [place] [address] [place] [address] Sep, Geena Hogan Hypokalemia E87.6 ; Lacerati on of skin of left elbow, initial encounter S51.012A and S/P insertion of iliac artery stent Z95.828 IMMUNIZATIONS Vaccine Route Administration Date Status Pneumovax [...] Education Language: Question Answer Notes Languages spoken: Urdu Buddhism: Question Answer Notes Buddhism 33 None Sexual Hx: Question Answer Notes [...] tobacco use, cessation provided REASON FOR REFERRAL from 1960 to 2020-10-26 Reason 60yo female, [place]ac [place] 2009 [place] recent falls, suspect syncope, completing workup (nuclear stress test, cardiac catheterization) w/ cardiology, needs evaluation stent as well Diagnosis 1 S/P insertion of iliac arter y stent (Z95.828) Referral Organization [facility] Bi Referring Provider First Name Geena Referring Provider Last Name Edison Referring Provider Specialty Family Medicine Referred Provider General Surgery ([facility])Natalia own Referred Provider Specialty General Surgery Referral Priority Urgent General Notes Jaky Galloway 10/16/2020 4:4 9:11 PM > Sent VITAL SIGNS Weight 98.4 lbs Sep, Weight-kg 44.63 kg Sep, Height 65 in Sep, BMI 16.37 kg/m2 Sep, Heart Rate 66 /min Sep, Respiratory Rate 18 /min Sep, Temperature 98.7 degrees Fahrenheit Sep, Oximetry 95 Sep, Blood pressure systolic 154 mm Hg Sep, Blood pressure diastolic 70 mm Hg Sep, MEDICATIONS Medication SIG (Take, Route, Frequency, Duration) Notes Start Da te End Date Status Topamax 100 MG 1 tablet Orally Twice a day for 90 day(s) Active tiZANidine HCl 4 MG 1 tablet Oral BID prn for 30 Days Not-Taking Clopidogrel Bisulfate 75 MG 1 tablet Orally Once a day for 90 da ys Nov, Active Alcohol Swabs 70 % as directed [...] Information RESULTS No Results REASON FOR VISIT [facility] ER F/U MEDICAL (GENERAL) HISTORY Type Description Date Medical History History of CVA (cerebrovascular accident ) Medical History History of VT (myocardial infarction) Medical History Seizure disorder Medical [...] Notes Treatment Notes Treatm ent Clinical Notes Sep, Hypokalemia (ICD-10 - E87.6) Potassium was 3.0 in the ED, pt left AMA thus not started on potassium. Plan start at this time, repeat serum potassium in one week. If WNL continue for another 2 weeks and recheck. Susupect she will need to remain on potassium as daily caloric intake is low. Uncertain etiology diarrhea, full workup w/ GI was unremarkable. She was improving and within last few days as returned to 2-3 episdoes daily. Will monitor. Sep, Laceration of skin of left e lbow, initial encounter (ICD-10 - S51.012A) Appears infection present, start keflex. Also instructed patient on daily dressing changes, gave vaseline gauze and tegaderm bandages. Sep, S/P insertion of iliac artery stent (ICD-10 - Z9 5.828) Referral to re-establish w/ vascular specialist. PLAN OF TREATMENT Medication Medication Name Sig Start Date Stop Date Klor-Con M20 20 MEQ 2 tablet with food Orally Once a day for 30 Days Jul, Cephalexin 500 MG 1 capsule Orally twice daily for 7 day(s) A 2020 Alcohol Swabs 70 % as directed Daily as needed for 90 day(s) Oct, Contour Next Test - as directed In Vitro Daily as needed for 90 day(s) Oct, Glucometer as directed GLUCOMETER Daily for 99 days Oct, Lancets - as directed Daily as needed for 90 day(s) Oct Treatment Notes Assessment Notes Clinical Notes Hypokalemia Potassium was 3.0 in the ED, pt left AMA thus not started on potassium. Plan start at this time, repeat serum potassium in one week. If WNL continue for another 2 weeks and recheck. Susupect she will need to remain on potassium as daily caloric intake is low. Uncertain etiology diarrhea, full workup w/ GI was unremarkable. She was improving and within last few days as returned to 2-3 episdoes daily. Will monitor. Laceration of skin of left elbow, initial encounter Appears infection present, start keflex. Also instructed patient on daily dressing changes, gave vaseline gauze and tegaderm bandages. S/P insertion of iliac artery stent Refe rral to re-establish w/ vascular specialist. Future Test Test Name Order Date Potassium Serum Level [id number] Referrals Referral Date Details 60yo female, [place] recent falls, suspect syncope, completing workup (nuclear stress test, cardiac catheterization) w/ cardiology, needs evaluation stent as well, [facility] ([facility]) Next Appt Details after specialist Reason: Insurance Providers Payer Name Payer Address Payer Phone Insured Name Patient Relati onship to Insured Coverage Start Date Coverage End Date MEDICAID [employer] [address] [facility] [address] BENNIE BAEZA MEDICARE COMPLETE [employer] [address] [address] [facility] [id number] BENNIE BAEZA
--- OUTSIDE RECORDS SUMMARY | 2020-12-11 08:41 | CCD | Continuity of Care Document ---
Author Author Dora BRADSHAW MD Organization Unknown Address [address] [facility] [facility], [address] [place] [address] Phone [phone] Care Team Providers Care Soaking Room Operator Name Role Phone Geena Hogan AUTM [phone] Carmelita Jason M.D. AUTM [phone] AUTM Unavailable Problems Active Problems Provider Date [...] Recreational Drug Use Current Drug User MANOJ Flores [facility], former use of cocaine and [...] Aerosol 1 puff every day 30units J43.1 Joe DuvalORenard 05/30/2020 Famotidine 40mg Tablets take 1 tablet by mouth every evening. 30tabs K29.80 Babar Vazquez MD 05/11/2020 Miralax 17GM/Scoop Powder take 17 grams by mouth once daily. 510units K59.00 Babar Vazquez MD 05/11/2020 Anoro Ellipta 62.5-25mcg/Inh Aeros ol 1 puff every day 60units J43.1 Joe DuvalORenard 06/10/2018 Proair HFA 108(90Base) mcg/Act Aer osol [...] tab by mouth every day Unknown Ipratropium [place]/Albuterol Sulfate 0.5-2.5(3)mg/3ML Solution 1 vial via neb [...] CPT Code Status Date Vaccine Lot # [id number] Given 09/03/2018 Prevnar 13 18462 Given 11/27/2017 Influenza Virus Vaccine, Quadrivalent, Slit Virus, Im Use Vital Signs Date Vital Result Comment 11/08/2020 2:18pm BP Systolic 159 mmHg BP Diastolic 79 mmHg Body Temperature 98.3 F Height 66 inches 5'6" Weight 98.25 lb BMI (Body Mass Index) 15.9 kg/m2 [place] Body Weight 130 lb Weight 44.566 kg BSA (Body Surface Area) 1.48 m2 09/04/2020 1:43pm BP Systolic 100 mmHg BP Diastolic 70 mmHg Heart Rate 58 /min O2 % BldC Oximetry 94 % Body Temperature 98.7 F Height 66 inches 5'6" Weight 103.00 lb BMI (Body Mass Index) 16.6 kg/m2 [place] Body Weight 130 lb Weight 46.721 kg BSA (Body Surface Area) 1.51 m2 Results Test Acquired Date Facility Test Result H/L Range Note FVL/[place] 09/04/2020 [employer] PDFReport SEE IMAGE FVC-Pred 3.53 L FVC-Pre 1.88 L FVC-%Pred-Pre 53 L FVC-LLN 2.79 L Fev1-Pred 2.72 L Fev1-Pre 0.93 L Fev1-%Pred-Pre 34 L Fev1-LLN 2.10 L Fev6-Pred 3.40 L Fev6-Pre 1.87 L Fev6-%Pred-Pre 54 L Fev6-LLN 2.68 L Uzr9szb-Ngrg 78 % Juk9opi-Ycs 49 % Vuq7mxy-%Pred-Pre 63 % Xcb5eru-LCM 68 % Dkh3hyg-Qxfr 96 % Ayn3inq-Kkp 99 % Xqk4ckz-%Pred-Pre 103 % FEFMax-Pred 6.55 L/E/sec FEFMax-Pre 1.80 L/E/sec FEFMax-%Pred-Pre 27 L/E/sec FEFMax-LLN 4.73 L/E/sec Lbw9612-Jksz 2.42 L/E/sec Hqa6846-Zey 0.39 L/E/sec Kwb5783-%Pred-Pre 16 L/E/sec Yjw4116-PZS 1.10 L/E/sec ExpTime-Pre 6.31 sec Hwz3mde0-Poxy 81 % Zjd1dsk2-Plj 50 % Kal6ryk6-%Pred-Pre 61 % Kzh8nxm5-CLY 72 % FVL/[place] 05/30/2020 [employer] PDFReport SEE IMAGE FVC-Pred 3.53 L FVC-Pre 1.71 L FVC-%Pred-Pre 48 L FVC-LLN 2.79 L Fev1-Pred 2.72 L Fev1-Pre 0.89 L Fev1-%Pred-Pre 32 L Fev1-LLN 2.10 L Fev6-Pred 3.40 L Fev6-Pre 1.71 L Fev6-%Pred-Pre 50 L Fev6-LLN 2.68 L Ptj4vpw-Ddxx 78 % Vfy5hco-Sac 52 % Lit1ain-%Pred-Pre 67 % Zfy8vvm-IZV 68 % Fvf0sgx-Wxqd 96 % Eqy3uwn-Khs 100 % Xhm9kkj-%Pred-Pre 103 % FEFMax-Pred 6.55 L/E/sec FEFMax-Pre 1.31 L/E/sec FEFMax-%Pred-Pre 20 L/E/sec FEFMax-LLN 4.73 L/E/sec Kuc4385-Bknu 2.42 L/E/sec Twz1842-Skj 0.43 L/E/sec Jor2882-%Pred-Pre 17 L/E/sec Afa2434-EEM 1.10 L/E/sec ExpTime-Pre 6.18 sec Nck6byo4-Temn 81 % Nkt8olw9-Nna 52 % Owa0eac3-%Pred-Pre 64 % Vhg0bpb8-HMA 72 % Procedures Date Code Description Status 11/08/2020 62646 Office/Outpatient Established Lo w MDM 20-29 Min Completed 09/04/2020 13524 Office/Outpatient Established Mo d MDM 30-39 Min Completed 09/04/2020 68857 Spirometry Completed 08/13/2020 60054 Office/Outpatient Established Lo w MDM 20-29 Min Completed 05/30/2020 73559 Tobacco Cessation Counseling Com pleted 05/30/2020 07018 Office/Outpatient Established Mo d MDM 30-39 Min Completed 05/30/2020 05423 Spirometry Completed 05/11/2020 17184 Office/Outpatient Established Mo d MDM 30-39 Min Completed Medical Devices Description No Information Available Encounters Type Date Location Provider Dx Diagnosis Office Visit 11/08/2020 2:15p [facility] Dioni carrera MD M48.062 Spinal stenosis, lumbar region with neur ogenic claudication Office Visit 09/04/2020 2:00p [facility] Pulmonary/Thoracic Alin contreras, D.O. J84.82 Adult pulmonary Langerhans cell histiocy tosis J43.1 Panlobular emphysema R91.8 Other nonspecific abnormal f inding of lung field F17.218 Nicotine dependence, cigaret mark, w oth disorders Office Visit 08/13/2020 9:00a [facility] Gastroenterology Pra ctice Susie Tse RPA-C K59.00 Constipation, unspecified R63.4 Abnormal weight loss R10.11 Right upper quadrant pain R10.13 Epigastric pain K22.70 Landa's esophagus without dysplasia Office Visit 05/30/2020 9:30a [facility] Pulmonary/Thoracic FLORIDALMA Traylor J43.1 Panlobular emphysema R91.8 Other nonspecific abnormal f inding of lung field F17.218 Nicotine dependence, cigaret mark, w oth disorders J84.82 Adult pulmonary Langerhans c ell histiocytosis Office Visit 05/11/2020 11:30a [facility] ENT Practice Susie Tse RPA-C R10.11 Right upper quadrant pain R10.13 Epigastric pain K29.80 Duodenitis without bleeding R63.4 Abnormal weight loss K59.00 Constipation, unspecified K22.70 Landa's esophagus without dysplasia Assessments Date Code Description Provider 11/08/2020 M48.062 Spinal stenosis, lumbar region w ith neurogenic claudication Dioni Bradshaw MD 09/04/2020 J84.82 Adult pulmonary Langerhans cell histiocytosis Alin Veras D.O. 09/04/2020 J43.1 Panlobular emphysema Alin Veras D.O. 09/04/2020 R91.8 Other nonspecific abnormal findi ng of lung [facility] Alin Veras D.O. 09/04/2020 F17.218 Nicotine dependence, [...] R91.8 Other nonspecific abnormal findi ng of [facility] FLORIDALMA Traylor 05/30/2020 F17.218 Nicotine dependence, cigarettes, with other nicotine-induced disorders FLORIDALMA Traylor 05/30/2020 J84.82 Adult pulmonary Langerhans cell histiocytosis FLORIDALMA Traylor 05/11/2020 R10.11 Right upper quadrant pain Meliss a A Charlebois, [facility] 05/11/2020 R10.13 Epigastric pain Susie A Mic bois, [facility] 05/11/2020 K29.80 Duodenitis without bleeding Dolly ssa A Charlebois, [facility] 05/11/2020 R63.4 Abnormal weight loss Susie A C harlebois, [facility] 05/11/2020 K59.00 Constipation, unspecified RAHAT Cummings 05/11/2020 K22.70 Landa's esophagus without dysp lasia RAHAT Moran Plan of Treatment No Information Available Functional Status Description No Information Available Mental Status Description No Information Available Referrals Refer to Reason for Referral Status Appt Date Dioni Bradshaw MD S/P INSERTION OF ILIAC ARTERY STENT Created [address] [facility], [address] [place] [address] [phone]
--- OUTSIDE RECORDS SUMMARY | 2020-12-11 08:41 | CCD | Continuity of Care Document ---
Author Author Dora BRADSHAW MD Organization Unknown Address [address] [facility], [address] [place] [address] Phone [phone] Care Team Providers Care Driller Helper Name Role Phone Geena Hogan AUTM [phone] Carmelita Jason M.D. AUTM [phone] AUTM Unavailable Problems Active Problems Provider Date [...] Tablets 1 tab by mouth every day---Dr. oHgan, stroke hx Unkn own Aspirin 81mg Tablets DR 1 tab by mouth every day Unknown Ipratropium [place]/Albuterol Sulfate 0.5-2.5(3)mg/3ML Solution 1 vial via neb [...] CPT Code Status Date Vaccine Lot # [id number] Given 09/03/2018 Prevnar 13 61384 Given 11/27/2017 Influenza Virus Vaccine, Quadrivalent, Slit Virus, Im Use Vital Signs Date Vital Result Comment 11/08/2020 2:18pm BP Systolic 159 mmHg BP Diastolic 79 mmHg Body Temperature 98.3 F Height 66 inches 5'6" Weight 98.25 lb BMI (Body Mass Index) 15.9 kg/m2 [place] Body Weight 130 lb Weight 44.566 kg BSA (Body Surface Area) 1.48 m2 09/04/2020 1:43pm BP Systolic 100 mmHg BP Diastolic 70 mmHg Heart Rate 58 /min O2 % BldC Oximetry 94 % Body Temperature 98.7 F Height 66 inches 5'6" Weight 103.00 lb BMI (Body Mass Index) 16.6 kg/m2 [place] Body Weight 130 lb Weight 46.721 kg [...] L Fev6-%Pred-Pre 54 L Fev6-LLN 2.68 L Yjc3vvq-Zhrp 78 % Tzg6mnw-Btt 49 % Dds8ojv-%Pred-Pre 63 % Jiv4jhw-FZT 68 % Kjm8qhx-Rwvf 96 % Swg7fch-Gqi 99 % Alm5agn-%Pred-Pre 103 % FEFMax-Pred 6.55 L/E/sec FEFMax-Pre 1.80 L/E/sec FEFMax-%Pred-Pre 27 L/E/sec FEFMax-LLN 4.73 L/E/sec Qzr1641-Sowx 2.42 L/E/sec Mun1010-Ecb 0.39 L/E/sec Jqg2668-%Pred-Pre 16 L/E/sec Qfy2522-DKE 1.10 L/E/sec ExpTime-Pre 6.31 sec Yra6xzn7-Cvik 81 % Hyq0rsz3-Chy 50 % Daw0ryt2-%Pred-Pre 61 % Por6qqi7-GAY 72 % FVL/[place] 05/30/2020 [employer] PDFReport SEE IMAGE FVC-Pred 3.53 L FVC-Pre 1.71 L FVC-%Pred-Pre 48 L FVC-LLN 2.79 L Fev1-Pred 2.72 L Fev1-Pre 0.89 L Fev1-%Pred-Pre 32 L Fev1-LLN 2.10 L Fev6-Pred 3.40 L Fev6-Pre 1.71 L Fev6-%Pred-Pre 50 L Fev6-LLN 2.68 L Amu6cly-Zwdw 78 % Fcj2zwa-Chf 52 % Cdm9kax-%Pred-Pre 67 % Rtl5hzr-KSX 68 % Rwk6dme-Vgnm 96 % Llj3bgb-Xkl 100 % Bzu9her-%Pred-Pre 103 % FEFMax-Pred 6.55 L/E/sec FEFMax-Pre 1.31 L/E/sec FEFMax-%Pred-Pre 20 L/E/sec FEFMax-LLN 4.73 L/E/sec Tjq8596-Lymc 2.42 L/E/sec Avy5845-Ced 0.43 L/E/sec Pun9273-%Pred-Pre 17 L/E/sec Ytd7727-FXS 1.10 L/E/sec ExpTime-Pre 6.18 sec Vfm8vua8-Trcf 81 % Wuq4zwo2-Sfm 52 % Ivf6lzk0-%Pred-Pre 64 % Edo3tid5-DQB 72 % Procedures Date Code Description Status 09/04/2020 09681 Office/Outpatient Established Mo d MDM 30-39 Min Completed 09/04/2020 45035 Spirometry Completed 08/13/2020 90738 Office/Outpatient Established Lo w MDM 20-29 Min Completed 05/30/2020 90373 Tobacco Cessation Counseling Com pleted 05/30/2020 28534 Office/Outpatient Established Mo d MDM 30-39 Min Completed 05/30/2020 34327 Spirometry Completed 05/11/2020 14180 Office/Outpatient Established Mo d MDM 30-39 Min Completed Medical Devices Description No Information Available Encounters Type Date Location Provider Dx Diagnosis Office Visit 09/04/2020 2:00p [facility] Pulmonary/Thoracic Alin contreras DRenardO. J84.82 Adult pulmonary Langerhans cell histiocy tosis J43.1 Panlobular emphysema R91.8 Other nonspecific abnormal f inding of lung field F17.218 Nicotine dependence, cigaret mark, w oth disorders Office Visit 08/13/2020 9:00a [facility] Gastroenterology Pra ctice Susie Tse RPA-C K59.00 Constipation, unspecified R63.4 Abnormal weight loss R10.11 Right upper quadrant pain R10.13 Epigastric pain K22.70 Landa's esophagus without dysplasia Office Visit 05/30/2020 9:30a [facility] Pulmonary/Thoracic FLORIDALMA Traylor J43.1 Panlobular emphysema R91.8 Other nonspecific abnormal f inding of lung field F17.218 Nicotine dependence, cigaret mark, w oth disorders J84.82 Adult pulmonary Langerhans c ell histiocytosis Office Visit 05/11/2020 11:30a [facility] ENT [facility] Susie Tse RPA-C R10.11 Right upper quadrant pain R10.13 Epigastric pain K29.80 Duodenitis without bleeding R63.4 Abnormal weight loss K59.00 Constipation, unspecified K22.70 Landa's esophagus without dysplasia Assessments Date Code Description Provider 09/04/2020 J84.82 Adult pulmonary Langerhans cell histiocytosis Alin Veras D.O. 09/04/2020 J43.1 Panlobular emphysema Alinmohinder Turnerchance, D.O. 09/04/2020 R91.8 Other nonspecific abnormal findi ng of lung field Alin Veras, D.O. 09/04/2020 F17.218 Nicotine dependence, cigarettes, with other nicotine-induced disorders Nataly Duval.O. 08/13/2020 K59.00 Constipation, unspecified Meliss a A Charlebois, [facility] 08/13/2020 R63.4 Abnormal weight loss Susie A C harlebois, [facility] 08/13/2020 R10.11 Right upper quadrant pain Meliss a A Charlebois, [facility] 08/13/2020 R10.13 Epigastric pain Susie A Mic bois, [facility] 08/13/2020 K22.70 Landa's esophagus without dysp lasia Susie A Charlebois, [facility] 05/30/2020 J43.1 Panlobular emphysema FLORIDALMA Montelongo 05/30/2020 R91.8 Other nonspecific abnormal findi ng of lung field FLORIDALMA Traylor 05/30/2020 F17.218 Nicotine dependence, cigarettes, with other nicotine-induced disorders FLORIDALMA Traylor 05/30/2020 J84.82 Adult pulmonary Langerhans cell histiocytosis FLORIDALMA Traylor 05/11/2020 R10.11 Right upper quadrant pain Meliss a A Charlebois, [facility] 05/11/2020 R10.13 Epigastric pain Susie A Mic bois, [facility] 05/11/2020 K29.80 Duodenitis without bleeding Dolly ssa A Charlebois, [facility] 05/11/2020 R63.4 Abnormal weight loss Susie A C harlebois, [facility] 05/11/2020 K59.00 Constipation, unspecified Meliss a A Charlebois, [facility] 05/11/2020 K22.70 Landa's esophagus without dysp lasia Susie A Charlebois, [facility] Plan of Treatment Future Appointment(s):* 11/09/2020 9:00 am - Susie A RAHAT Tse at [facility] 09/04/2020 - Alin Veras D.O.* J84.82 Adult pulmonary Langerhans cell histiocytosis * J43.1 Panlobular emphysema * R91.8 Other nonspecific abnormal finding of lung field * F17.218 Nicotine dependence, cigarettes, with other nicotine-induced disorders * * New Labs:* FVL/[place], Ordered: 09/04/20 * Follow up:* 1. Follow up six months with CT and spirometry; please cancel all others. Functional Status Description No Information Available Mental Status Description No Information Available Referrals Refer to Reason for Referral Status Appt Date Dioni Bradshaw MD S/P INSERTION OF ILIAC ARTERY STENT Created [address] [address] [phone]
--- OUTSIDE RECORDS SUMMARY | 2020-12-11 08:41 | CCD ---
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 Active confirmed 2 72653879 Problem Osteoporosis without current pathological fracture, unspecified osteoporosis type M81.0 Active confirmed 38254965 Problem Chronic pain syndrome G89.4 Active confirmed 796147112 Problem 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 Active confirm ed 97193626 Problem Tobacco use disorder F17.200 Active confirmed 710055345 Problem PAD (peripheral artery disease) I73.9 Active confi rmed 257775288 Problem History of ME (myocardial infarction) I25.2 Ac tive confirmed 166126525 Problem Perimenopausal atrophic vaginitis N95.2 Active confirmed 606829954 Problem Bilateral hand pain 729.5 Active confirmed 24987751 Problem Vaginal bleeding N93.9 Active confirmed 289 818393 Problem Peripheral neuropathy 356.9 Active confirmed 52817894 Problem Epidermoid cyst of skin of chest 706.2 Active conf irmed 363423434 Problem Osteoporosis 733.00 Active confirmed 2772532 6 Problem 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 confirm ed 78538350 Problem Cervical facet syndrome M46.92 Active confirmed 373007206 Problem Stress at home F43.9 Active confirmed 80277 5001 Problem Hyperlipidemia LDL goal <100 272.4 Active confirme d 60905088 Problem 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 Ac tive confirmed 380690748 Problem Osteoarthritis 715.90 Active confirmed 85433 5006 Problem Myalgia M79.1 Active confirmed 03213877 Problem PAD (peripheral artery disease) 443.9 Active confi rmed 501994886 Problem Chronic obstructive pulmonary disease, unspecified COPD ty pe J44.9 Active confirmed 78257836 Problem History of ME (myocardial infarction) 412 Ac tive confirmed 120407419 Problem Cocaine abuse F14.10 Active confirmed 477086 03 Problem Seizure disorder 345.90 Active confirmed 128 891534 Problem Stuttering F80.81 Active confirmed 41348788 Problem History of CVA (cerebrovascular accident) V12.54 Active confirmed 280021055 Problem Frequency-urgency syndrome N31.8 Active confirmed 055366219 Problem Influenza vaccination declined Z28.21 Active confir med 916731751 Problem Hip arthritis M16.10 Active confirmed 058871 06 Problem Gastroesophageal reflux disease, esophagitis pre sence not specified K21.9 Active confirmed 061040584 Problem Other chronic pain G89.29 Active confirmed 8 9420027 Problem Adjustment disorder with mixed anxiety and depressed mood F43.23 Active confirmed 324279381 Problem Constipation, unspecified constipation type K59.00 Active confirmed 85629210 Problem COPD (chronic obstructive pulmonary disease) 496 Active confirmed 73261585 Problem Sacroiliac inflammation M46.1 Active confirmed 78194531 Problem DDD (degenerative disc disease), lumbar 722.52 Active confirmed 39308082 Problem Degenerative disc disease, lumbar M51.36 Active confirmed 54066869 Problem COPD exacerbation J44.1 Active confirmed 19 6351294 Problem Tobacco abuse 305.1 Active confirmed 249350 05 Problem Seizure disorder G40.909 Active confirmed 12 0551433 Problem COPD with exacerbation J44.1 Active confirmed 395368915 ALLERGIES Allergen (clinical drug ingredient) Drug/Non Drug Allergy do cumented on EMR Reaction Allergy Type Onset Date Status varenicline Chantix([facility] Code:[address]-95) depression Drug Allergy Active Wellbutrin Nightmares Drug Allergy Active ENCOUNTERS from 1960 to 2020-10-12 [facility] [address] [facility] [phone] [place] [address] Sep, Geena Hogan IMMUNIZATIONS Vaccine Route Administration Date [...] Education Language: Question Answer Notes Languages spoken: Georgian Yazdanism: Question Answer Notes Yazdanism 33 None Sexual Hx: Question Answer Notes [...] Notes Start Da te End Date Status Ezetimibe 10 MG 1 tablet Orally Once a day for 90 Active Albuterol Sulfate (2.5 MG/3ML) 0.083% 3 ml as needed I nhalation Three times a day for 14 day(s) Active Clopidogrel Bisulfate 75 MG 1 tablet Orally Once a day for 90 da ys 28 Nov, 2018 Active Lipitor 80 MG 1 tablet Orally Once a day for 90 days Active tiZANidine HCl 4 MG 1 tablet Oral BID prn for 30 Days Active Lidocaine HCl Urethral/Mucosal 2 % as directed Externally qid fo r 21 days Apr, Active Pantoprazole Sodium 20 MG 1 tablet Orally Once a day for 30 day(s) stop famotidine, stop omeprazole Mar, Active Gabapentin 400 MG 1 capsule Orally bid for 90 days Feb, Active Ondansetron HCl 4 MG 1 tablet Orally every 6-8 hours as needed f or 5 day(s) Mar, Active Klor-Con M20 20 MEQ 2 tablet with food Orally Once a day for 1 days total dosage 40mEq Jul, Active Ciprofloxacin HCl 500 MG 1 tablet Orally every 12 hrs for 5 day( s) Dec, Active Bactrim DS 800-160 MG 1 tablet Orally Twice a day for 3 days Nov, Not-Taking Aspir-81 81 MG 1 tablet Orally Once a day for 90 days Active tiZANidine HCl 4 MG 2 tablets Orally before bedt geetha (not t o exceed 24mg/day) for 5 days Nov, Active Albuterol Sulfate HFA 108 (90 Base) MCG/ACT 2 puffs as needed Inhalation every 6 hrs Active Topamax 100 MG 1 tablet Orally Twice a day for 90 day(s) Active ALPRAZolam 0.5 MG 1 tablet as needed Orally Twice a day (MDD;2) for 30 Days June, Not-Taking Paxil 30 mg 1 tablet in the morning Orally Once a day for 90 day(s) Active PROCEDURES No Information RESULTS No Results REASON FOR VISIT FYI MEDICAL (GENERAL) HISTORY Type Description Date Medical History History of CVA (cerebrovascular accident ) Medical History History of ME (myocardial infarction) Medical History Seizure disorder Medical [...] with food Orally Once a day for 1 days Jul, Topamax 100 MG 1 tablet Orally Twice a day for 90 day(s) Clopidogrel Bisulfate 75 MG 1 tablet Orally Once a day for 90 da ys 28 Nov, 2018 Next Appt Details Provider Name:Geena Hogan, 08:00:00 AM, [address] [facility], , [place], [address], Insurance Providers Payer Name Payer Address Payer Phone Insured Name Patient Relati onship to Insured Coverage Start Date Coverage End Date MEDICARE COMPLETE [employer] [address] [address] [facility] [phone] BENNIE BAEZA MEDICAID [facility] [address] [facility] [id number] BENN[place] [employer]AE[employer]
[2020-12-11] MEDS ORDERED: POTA20TA6 (08:42)
--- OUTSIDE RECORDS SUMMARY | 2020-12-11 08:44 | CCD ---
Author Author [facility] Organization [facility] Address Unknown Phone Unavailable Care Team Providers Care Database Manager Name Role Phone Jonathan Valente MD Unavailable Unavailable Jonathan Valente MD Unavailable Unavailable Jonathan Valente MD Unavailable Unavailable Jonathan Valente MD Unavailable Unavailable Jonathan Valente MD Unavailable Unavailable Jonathan Valente MD Unavailable Unavailable Jonathan Valente MD Unavailable Unavailable Jonathan Valente MD Unavailable Unavailable Jonathan Valente MD Unavailable Unavailable Jonathan Valente MD Unavailable Unavailable Jonathan Valente MD Unavailable Unavailable Jonathan Valente MD Unavailable Unavailable Joanthan Valente MD Unavailable Unavailable Jonathan Valente MD Unavailable Unavailable Jonathan Valente MD Unavailable Unavailable Jonathan Valente MD Unavailable Unavailable Jonathan Valente MD Unavailable Unavailable Jonathan Valente MD Unavailable Unavailable Jonathan Valente MD Unavailable Unavailable Jonathan Valente MD Unavailable Unavailable Jonathan Valente MD Unavailable Unavailable Jonathan Valente MD Unavailable Unavailable Jonathan Valente MD Unavailable Unavailable Jonathan Valente MD Unavailable Unavailable Jonathan Valente MD Unavailable Unavailable Bolla, Jonathan Gordillo MD [...] Duy CAMARILLO Unavailable Unavailable Bolla, S Duy MD Unavailable Unavailable Charlebois, A Susie RPA C Unavailable Unavailable Charlebois, A Susie RPA C Unavailable Unavailable Charlebois, A Susie RPA C Unavailable Unavailable Charlebois, A Susie RPA C Unavailable Unavailable Charlebois, A Susie RPA C Unavailable Unavailable Charlebois, A Susie RPA C Unavailable Unavailable Charlebois, A Susie RPA C Unavailable Unavailable Charlebois, A Susie RPA C Unavailable Unavailable Charlebois, A Susie RPA C Unavailable Unavailable Charlebois, A Susie RPA C Unavailable Unavailable Charlebois, A Susie RPA C Unavailable Unavailable Charlebois, A Susie RPA C Unavailable Unavailable Charlebois, A Susie RPA C Unavailable Unavailable Charlebois, A Susie RPA C Unavailable Unavailable Charlebois, A Susie RPA C Unavailable Unavailable Charlebois, A Susie RPA C Unavailable Unavailable Charlebois, A Susie RPA C Unavailable Unavailable Charlebois, A Susie RPA C Unavailable Unavailable Charlebois, A Susie RPA C Unavailable Unavailable Charlebois, A Susie RPA C Unavailable Unavailable Charlebois, A Susie RPA C Unavailable Unavailable Charlebois, A Susie RPA C Unavailable Unavailable Charlebois, A Susie RPA C Unavailable Unavailable Charlebois, A Susie RPA C Unavailable Unavailable Charlebois, A Susie RPA C Unavailable Unavailable Charlebois, A Susie RPA C Unavailable Unavailable Charlebois, A Susie RPA C Unavailable Unavailable Charlebois, A Susie RPA C Unavailable Unavailable Charlebois, A Susie RPA C Unavailable Unavailable Charlebois, A Susie RPA C Unavailable Unavailable Charlebois, A Susie RPA C Unavailable Unavailable Charlebois, A Susie RPA C Unavailable Unavailable Charlebois, A Susie RPA C Unavailable Unavailable Reji KEBEDE MD Unavailable Unavailable Reji KEBEDE MD Unavailable Unavailable Reji KEBEDE MD Unavailable Unavailable Reji KEBEDE MD Unavailable Unavailable Reji KEBEDE MD Unavailable Unavailable Reji KEBEDE MD Unavailable Unavailable Reji KEBEDE MD Unavailable Unavailable Stuck, K Uma PA Unavailable Unavailable Stuck, K Uma PA Unavailable Unavailable Stuck, K Uma PA Unavailable Unavailable Stuck, K Uma PA Unavailable Unavailable Stuck, K Uma PA Unavailable Unavailable Stuck, K Uma PA Unavailable Unavailable Stuck, K Uma PA Unavailable Unavailable Stuck, K Uma PA Unavailable Unavailable Stuck, K Uma PA Unavailable Unavailable Stuck, K Uma PA Unavailable Unavailable Stuck, K Uma PA Unavailable Unavailable Stuck, K Uma PA Unavailable Unavailable Stuck, K Uma PA Unavailable Unavailable Stuck, K Uma PA Unavailable Unavailable Stuck, K Uma PA Unavailable Unavailable Stuck, K Uma PA Unavailable Unavailable Stuck, K Uma PA Unavailable Unavailable Stuck, K Uma PA Unavailable Unavailable Stuck, K Uma PA Unavailable Unavailable Stuck, K Uma PA Unavailable Unavailable Stuck, K Uma PA Unavailable Unavailable Stuck, K Uma PA Unavailable Unavailable Stuck, K Uma PA Unavailable Unavailable Stuck, K Uma PA Unavailable Unavailable Stuck, K Uma PA Unavailable Unavailable Stuck, K Uma PA Unavailable Unavailable Stuck, K Uma PA Unavailable Unavailable Stuck, K Uma PA Unavailable Unavailable Stuck, K Uma PA Unavailable Unavailable Stuck, K Uma PA Unavailable Unavailable Stuck, K Uma PA Unavailable Unavailable Stuck, K Uma PA Unavailable Unavailable Stuck, K Uma PA Unavailable Unavailable Stuck, K Uma PA Unavailable Unavailable Stuck, K Uma PA Unavailable Unavailable Stuck, K Uma PA Unavailable Unavailable Stuck, K Uma PA Unavailable Unavailable Stuck, K Uma PA Unavailable Unavailable Stuck, K Uma PA Unavailable Unavailable Stuck, K Uma PA Unavailable Unavailable Stuck, K Uma PA Unavailable Unavailable Stuck, K Uma PA Unavailable Unavailable CHRIS, B BRANDT WELDER PRODUCTION LINE COMBINATION Unavailable Unavailable CHRIS, B BRANDT WELDER PRODUCTION LINE COMBINATION Unavailable Unavailable CHRIS, B BRANDT WELDER PRODUCTION LINE COMBINATION Unavailable Unavailable CHRIS, B BRANDT WELDER PRODUCTION LINE COMBINATION Unavailable Unavailable CHRIS, B BRANDT WELDER PRODUCTION LINE COMBINATION Unavailable Unavailable CHRIS, B BRANDT WELDER PRODUCTION LINE COMBINATION Unavailable Unavailable CHRIS, B BRANDT WELDER PRODUCTION LINE COMBINATION Unavailable Unavailable CHRIS, B BRANDT WELDER PRODUCTION LINE COMBINATION Unavailable Unavailable CHRIS, B BRANDT WELDER PRODUCTION LINE COMBINATION Unavailable Unavailable CHRIS, B BRANDT WELDER PRODUCTION LINE COMBINATION Unavailable Unavailable CHRIS, B BRANDT WELDER PRODUCTION LINE COMBINATION Unavailable Unavailable CHRIS, B BRANDT WELDER PRODUCTION LINE COMBINATION Unavailable Unavailable CHRIS, B BRANDT WELDER PRODUCTION LINE COMBINATION Unavailable Unavailable CHRIS, B BRANDT WELDER PRODUCTION LINE COMBINATION Unavailable Unavailable CHRIS, B BRANDT WELDER PRODUCTION LINE COMBINATION Unavailable Unavailable CHRIS, B BRANDT WELDER PRODUCTION LINE COMBINATION Unavailable Unavailable CHRIS, B BRANDT WELDER PRODUCTION LINE COMBINATION Unavailable Unavailable CHRIS, B BRANDT WELDER PRODUCTION LINE COMBINATION Unavailable Unavailable CHRIS, B BRANDT WELDER PRODUCTION LINE COMBINATION Unavailable Unavailable CHRIS, B BRANDT WELDER PRODUCTION LINE COMBINATION Unavailable Unavailable CHRIS, B BRANDT WELDER PRODUCTION LINE COMBINATION Unavailable Unavailable CHRIS, B BRANDT WELDER PRODUCTION LINE COMBINATION Unavailable Unavailable CHRIS, B BRANDT WELDER PRODUCTION LINE COMBINATION Unavailable Unavailable CHRIS, B BRANDT WELDER PRODUCTION LINE COMBINATION Unavailable Unavailable CHRIS, B BRANDT WELDER PRODUCTION LINE COMBINATION Unavailable Unavailable CHRIS, B BRANDT WELDER PRODUCTION LINE COMBINATION Unavailable Unavailable CHRIS, B BRANDT WELDER PRODUCTION LINE COMBINATION Unavailable Unavailable CHRIS, B BRANDT WELDER PRODUCTION LINE COMBINATION Unavailable Unavailable CHRIS, B BRANDT WELDER PRODUCTION LINE COMBINATION Unavailable Unavailable CHRIS, B BRANDT WELDER PRODUCTION LINE COMBINATION Unavailable Unavailable CHRIS, B BRANDT WELDER PRODUCTION LINE COMBINATION Unavailable Unavailable CHRIS, B BRANDT WELDER PRODUCTION LINE COMBINATION Unavailable Unavailable CHRIS, B BRANDT WELDER PRODUCTION LINE COMBINATION Unavailable Unavailable CHRIS, B BRANDT WELDER PRODUCTION LINE COMBINATION Unavailable Unavailable CHRIS, B BRANDT WELDER PRODUCTION LINE COMBINATION Unavailable Unavailable CHRIS, B BRANDT WELDER PRODUCTION LINE COMBINATION Unavailable Unavailable CHRIS, B BRANDT WELDER PRODUCTION LINE COMBINATION Unavailable Unavailable CHRIS, B BRANDT WELDER PRODUCTION LINE COMBINATION Unavailable Unavailable CHRIS, B BRANDT WELDER PRODUCTION LINE COMBINATION Unavailable Unavailable CHRIS, B BRANDT WELDER PRODUCTION LINE COMBINATION Unavailable Unavailable CHRIS, B BRANDT WELDER PRODUCTION LINE COMBINATION Unavailable Unavailable CHRIS, B BRANDT WELDER PRODUCTION LINE COMBINATION Unavailable Unavailable CRHIS, B BRANDT WELDER PRODUCTION LINE COMBINATION Unavailable Unavailable CHRIS, B BRANDT WELDER PRODUCTION LINE COMBINATION Unavailable Unavailable CHRIS, B BRANDT WELDER PRODUCTION LINE COMBINATION Unavailable Unavailable CHRIS, B BRANDT WELDER PRODUCTION LINE COMBINATION Unavailable Unavailable CHRIS, B BRANDT WELDER PRODUCTION LINE COMBINATION Unavailable Unavailable CHRIS, B BRANDT WELDER PRODUCTION LINE COMBINATION Unavailable Unavailable CHRIS, B BRANDT WELDER PRODUCTION LINE COMBINATION Unavailable Unavailable CHRIS, B BRANDT WELDER PRODUCTION LINE COMBINATION Unavailable Unavailable CHRIS, B BRANDT WELDER PRODUCTION LINE COMBINATION Unavailable Unavailable CHRIS, B BRANDT WELDER PRODUCTION LINE COMBINATION Unavailable Unavailable CHRIS, B BRANDT WELDER PRODUCTION LINE COMBINATION Unavailable Unavailable CHRIS, B BRANDT WELDER PRODUCTION LINE COMBINATION Unavailable Unavailable CHRIS, B BRANDT WELDER PRODUCTION LINE COMBINATION Unavailable Unavailable CHRIS, B BRANDT WELDER PRODUCTION LINE COMBINATION Unavailable Unavailable CHRIS, B BRANDT WELDER PRODUCTION LINE COMBINATION Unavailable Unavailable CHRIS, B BRANDT WELDER PRODUCTION LINE COMBINATION Unavailable Unavailable CHRIS, B BRANDT WELDER PRODUCTION LINE COMBINATION Unavailable Unavailable CHRIS, B BRANDT WELDER PRODUCTION LINE COMBINATION Unavailable Unavailable CHRIS, B BRANDT WELDER PRODUCTION LINE COMBINATION Unavailable Unavailable CHRIS, B BRANDT WELDER PRODUCTION LINE COMBINATION Unavailable Unavailable Carmelita Jason MD Unavailable Unavailable [...] Unavailable Unavailable Ali, Carmelita MD Unavailable Unavailable SEARS, A ANISHA DO Unavailable Unavailable SEARS, A ANISHA DO Unavailable Unavailable SEARS, A ANISHA DO Unavailable Unavailable SEARS, A ANISHA DO Unavailable Unavailable SEARS, A ANISHA DO Unavailable Unavailable SEARS, A ANISHA DO Unavailable Unavailable SEARS, A ANISHA DO Unavailable Unavailable SEARS, A ANISHA DO Unavailable Unavailable SEARS, A ANISHA DO Unavailable Unavailable SEARS, A ANISHA DO Unavailable Unavailable SEARS, A ANISHA DO Unavailable Unavailable SEARS, A ANISHA DO Unavailable Unavailable SEARS, A ANISHA DO Unavailable Unavailable SEARS, A ANISHA DO Unavailable Unavailable SEARS, A ANISHA DO Unavailable Unavailable SEARS, A ANISHA DO Unavailable Unavailable SEARS, A ANISHA DO Unavailable Unavailable SEARS, A ANISHA DO Unavailable Unavailable SEARS, A ANISHA DO Unavailable Unavailable SEARS, A ANISHA DO Unavailable Unavailable SEARS, A ANISHA DO Unavailable Unavailable SEARS, A ANISHA DO Unavailable Unavailable SEARS, A ANISHA DO Unavailable Unavailable SEARS, A ANISHA DO Unavailable Unavailable SEARS, A ANISHA DO Unavailable Unavailable SEARS, A ANISHA DO Unavailable Unavailable SEARS, A ANISHA DO Unavailable Unavailable SEARS, A ANISHA DO Unavailable Unavailable SEARS, A ANISHA DO Unavailable Unavailable SEARS, A ANISHA DO Unavailable Unavailable SEARS, A ANISHA DO Unavailable Unavailable SEARS, A ANISHA DO Unavailable Unavailable SEARS, A ANISHA DO Unavailable Unavailable SEARS, A ANISHA DO Unavailable Unavailable SEARS, A ANISHA DO Unavailable Unavailable SEARS, A ANISHA DO Unavailable Unavailable SEARS, A ANISHA DO Unavailable Unavailable SEARS, A ANISHA DO Unavailable Unavailable SEARS, A ANISHA DO Unavailable Unavailable SEARS, A ANISHA DO Unavailable Unavailable SEARS, A ANISHA DO Unavailable Unavailable SEARS, A ANISHA DO Unavailable Unavailable SEARS, A ANISHA DO Unavailable Unavailable SEARS, A ANISHA DO Unavailable Unavailable SEARS, A ANISHA DO Unavailable Unavailable SEARS, A ANISHA DO Unavailable Unavailable SEARS, A ANISHA DO Unavailable Unavailable SEARS, A ANISHA DO Unavailable Unavailable Edison, R Geena MINESWEEPING OFFICER Unavailable Unavailable Edison, R Geena MINESWEEPING OFFICER Unavailable Unavailable Edison, R Geena MINESWEEPING OFFICER Unavailable Unavailable Edison, R Geena MINESWEEPING OFFICER Unavailable Unavailable Edison, R Geena MINESWEEPING OFFICER Unavailable Unavailable Edison, R Geena MINESWEEPING OFFICER Unavailable Unavailable Edison, R Geena MINESWEEPING OFFICER Unavailable Unavailable Edison, R Geena MINESWEEPING OFFICER Unavailable Unavailable Edison, R Geena MINESWEEPING OFFICER Unavailable Unavailable Edison, R Geena MINESWEEPING OFFICER Unavailable Unavailable Edison, R Geena MINESWEEPING OFFICER Unavailable Unavailable Edison, R Geena MINESWEEPING OFFICER Unavailable Unavailable Edison, R Geena MINESWEEPING OFFICER Unavailable Unavailable Edison, R Geena MINESWEEPING OFFICER Unavailable Unavailable Edison, R Geena MINESWEEPING OFFICER Unavailable Unavailable Edison, R Geena MINESWEEPING OFFICER Unavailable Unavailable Edison, R Geena MINESWEEPING OFFICER Unavailable Unavailable Edison, R Geena MINESWEEPING OFFICER Unavailable Unavailable Edison, R Geena MINESWEEPING OFFICER Unavailable Unavailable Edison, R Geena MINESWEEPING OFFICER Unavailable Unavailable Edison, R Geena MINESWEEPING OFFICER Unavailable Unavailable Edison, R Geena MINESWEEPING OFFICER Unavailable Unavailable Edison, R Geena MINESWEEPING OFFICER Unavailable Unavailable Edison, R Geena MINESWEEPING OFFICER Unavailable Unavailable Edison, R Geena MINESWEEPING OFFICER Unavailable Unavailable Edison, R Geena MINESWEEPING OFFICER Unavailable Unavailable Edison, R Geena MINESWEEPING OFFICER Unavailable Unavailable Edison, R Geena MINESWEEPING OFFICER Unavailable Unavailable Edison, R Geena MINESWEEPING OFFICER Unavailable Unavailable Edison, R Geena MINESWEEPING OFFICER Unavailable Unavailable Edison, R Geena MINESWEEPING OFFICER Unavailable Unavailable Edison, R Geena MINESWEEPING OFFICER Unavailable Unavailable Edison, R Geena MINESWEEPING OFFICER Unavailable Unavailable Edison, R Geena MINESWEEPING OFFICER Unavailable Unavailable Edison, R Geena MINESWEEPING OFFICER Unavailable Unavailable Edison, R Geena MINESWEEPING OFFICER Unavailable Unavailable Edison, R Geena MINESWEEPING OFFICER Unavailable Unavailable Edison, R Geena MINESWEEPING OFFICER Unavailable Unavailable Edison, R Geena MINESWEEPING OFFICER Unavailable Unavailable Edison, R Geena MINESWEEPING OFFICER Unavailable Unavailable MEDENT_[id number], NA Unavailable [phone] Benedict M Ely MINESWEEPING OFFICER Unavailable Unavailable Benedict M Ely MINESWEEPING OFFICER Unavailable Unavailable Jumalon, M Ely MINESWEEPING OFFICER Unavailable Unavailable Jumalon, M Ely MINESWEEPING OFFICER Unavailable Unavailable Jumalon, M Ely MINESWEEPING OFFICER Unavailable Unavailable Jumalon, M Ely MINESWEEPING OFFICER Unavailable Unavailable Jumalon, M Ely MINESWEEPING OFFICER Unavailable Unavailable Jumalon, M Ely MINESWEEPING OFFICER Unavailable Unavailable Jumalon, M Ely MINESWEEPING OFFICER Unavailable Unavailable Jumalon, M Ely MINESWEEPING OFFICER Unavailable Unavailable Jumalon, M Ely MINESWEEPING OFFICER Unavailable Unavailable Jumalon, M Ely MINESWEEPING OFFICER Unavailable Unavailable Jumalon, M Ely MINESWEEPING OFFICER Unavailable Unavailable Jumalon, M Ely MINESWEEPING OFFICER Unavailable Unavailable Jumalon, M Ely MINESWEEPING OFFICER Unavailable Unavailable Jumalon, M Ely MINESWEEPING OFFICER Unavailable Unavailable Jumalon, M Ely MINESWEEPING OFFICER Unavailable Unavailable Jumalon, M Ely MINESWEEPING OFFICER Unavailable Unavailable Jumalon, M Ely MINESWEEPING OFFICER Unavailable Unavailable Jumalon, M Ely MINESWEEPING OFFICER Unavailable Unavailable Jumalon, M Ely MINESWEEPING OFFICER Unavailable Unavailable Jumalon, M Ely MINESWEEPING OFFICER Unavailable Unavailable Jumalon, M Ely MINESWEEPING OFFICER Unavailable Unavailable Jumalon, M Ely MINESWEEPING OFFICER Unavailable Unavailable Jumalon, M Ely MINESWEEPING OFFICER Unavailable Unavailable Jumalon, M Ely MINESWEEPING OFFICER Unavailable Unavailable Jumalon, M Ely MINESWEEPING OFFICER Unavailable Unavailable Jumalon, M Ely MINESWEEPING OFFICER Unavailable Unavailable Jumalon, M Ely MINESWEEPING OFFICER Unavailable Unavailable Jumalon, M Ely MINESWEEPING OFFICER Unavailable Unavailable [place], V WILL PA-C Unavailable Unavailable [place], V WILL PA-C Unavailable Unavailable [place], V WILL PA-C Unavailable Unavailable [place], V WILL PA-C Unavailable Unavailable Sudeep, V WILL PA-C Unavailable Unavailable [place], V WILL PA-C Unavailable Unavailable [place], V WILL PA-C Unavailable Unavailable [place], V WILL PA-C Unavailable Unavailable [place], V WILL PA-C Unavailable Unavailable Sudeep, V WILL PA-C Unavailable Unavailable [place], V WILL PA-C Unavailable Unavailable [place], V WILL PA-C Unavailable Unavailable [place], V WILL PA-C Unavailable Unavailable [place], V WILL PA-C Unavailable Unavailable SALCIDO, M CHASIDY PA Unavailable [...] Unavailable SALCIDO, M CHASIDY PA Unavailable Unavailable Re-disclosure Warning The records that [...] is protected by Article 27-F of the [place] Public Health law. If you continue you may have access to information: Regarding HIV / AIDS; Provided by facilities licensed or operated by the [facility] Office of Mental Health; or Provided by the [facility] Office for People With Developmental Disabilities. If such information is present, then the following [facility] mandated warning applies: This information [...] law may result in a fine or long term sentence or both. A general authorization for the release of medical or other information is NOT sufficient authorization for further disc losure. Allergies and Adverse Reactions Type Description Substance Reaction Status Data Source(s ) Propensity to adverse reactions NO KNOWN ALLERGIES NO KNOWN ALLERGIES [facility] Propensity to adverse reactions VARENICLINE Varenicline Ac tive [facility] Propensity to adverse reactions BUPROPION Bupropion Acti ve [facility] Family History Family Member Name Family Member Gender Family Member Status Date o f Status Description Data Source(s) Unknown Unknown Problem MEDENT ([facility]) Unknown Male Problem MEDENT ([facility]) () - age 57 Encounters Encounter Providers Location Date Indications Data Source(s ) [place] [address] [facility] [address] 11/19/2020 12:00:00 AM EDT eCW1 ([facility]) Outpatient Referrer: WILL [email or web address] 12:00:00 AM EDT [facility] Outpatient Attender: BRANDT PEREZ NP Physical Therapy 08:45:00 AM EDT MEDENT ([facility]) Outpatient Attender: Susie Johnston/Estiven/Sandra flynn/Taylor 11/09/2020 09:00:00 AM EDT MEDENT ([facility] spann, ) [place] [address] [facility] [address] 11/09/2020 12:00:00 AM EDT eCW1 ([facility]) Outpatient Attender: TAYLOR Johnston/Estiven/Amandeep/Reindl 11/08/2020 02:15:00 PM EDT MEDENT ([facility] ) Outpatient Referrer: Geena [email or web address] 0 11/07/2020 01:47:44 PM EDT - 11/07/2020 03:35:46 PM EDT [facility] Outpatient Attender: WILL NICOLE-[email or web address] 12:00:00 AM EDT - 10/29/2020 01:58:42 PM EDT [facility] Outpatient Referrer: WILL [email or web address]-[email or web address] 09/2020 12:00:00 AM EDT [facility] [place] [address] [facility] [address] 10/17/2020 12:00:00 AM EDT eCW1 ([facility]) Outpatient [address] [facility] [address] 10/16/2020 12:00:00 AM EDT eCW1 ([facility]) Unknown [address] [facility] [address] 10/09/2020 12:00:00 AM EDT eCW1 ([facility]) Outpatient Attender: WILL MCCALLJIN-[email or web address].JIN 12:00:00 AM EDT - 09/13/2020 03:14:55 PM EDT [facility] Unknown [address] [facility] [place] [address] 09/10/2020 12:00:00 AM EDT eCW1 ([facility]) Outpatient Attender: ANISHA Bauman/Estiven/Amandeep/Reindl 09/04/2020 02:00:00 PM EDT MEDENT ([facility], ) [place] [address] [facility] [address] 08/30/2020 12:00:00 AM EDT eCW1 ([facility]) Outpatient Attender: WILL HEDRICK-Feleciaferrer: Stephanie Hogan MINESWEEPING OFFICER [email or web address] 08/29/2020 12:00:00 AM EDT - 08/30/2020 08:42:23 AM EDT [facility] [place] [address] [facility] [address] 08/29/2020 12:00:00 AM EDT eCW1 ([facility]) [place] [address] [facility] [address] 08/21/2020 12:00:00 AM EDT eCW1 ([facility]) Outpatient Attender: Susie Johnston/Estiven/Sandra flynn/Taylor 08/13/2020 09:00:00 AM EDT MEDENT ([facility]) Outpatient Attender: YAIMA [id number] Physical Therapy 08/10/2020 11 :00:00 AM EDT MEDENT ([facility]) Outpatient Attender: Uma HEDRICK [id number] 08/08/2020 12:00:00 A M [facility] [place] [address] [facility] [address] 08/08/2020 12:00:00 AM EDT eCW1 ([facility]) Outpatient Attender: BRANDT PEREZ NP Physical Therapy 11:45:00 AM EDT MEDENT ([facility]) [place] [address] [facility] [address] 08/06/2020 12:00:00 AM EDT eCW1 ([facility]) Unknown [address] [facility] [address] 08/03/2020 12:00:00 AM EDT eCW1 ([facility]) Outpatient [address] [facility] [address] 07/31/2020 12:00:00 AM EDT [facility] [place] [address] [facility] [address] 07/30/2020 12:00:00 AM EDT eCW1 ([facility]) Duy Valente MD: [address], [place] [address], Ph. Attender: Duy Valente MD [place] - [facility] 07/23/2020 12:00:00 AM EDT POLO ([facility]) Office Visit Attender: BRANDT PEREZ [employer] Physical Therapy 12:45:00 PM EDT MEDENT ([facility]) Outpatient Attender: BRANDT PEREZ NP Physical Therapy 10:30:00 AM EDT MEDENT ([facility]) [place] [address] [facility] [address] 07/18/2020 12:00:00 AM EDT eCW1 [facility]) Ely Mcmullen, [employer] COMBINATION: [address], [place] [address], Ph. Attender: Ely Mcmullen [facility] - [facility] 07/06/2020 12:00:00 AM EDT ROBERT ERWIN ([facility]) Ely Mcmullen, WELDER [employer] LINE COMBINATION: [address], [place] [address], Ph. Attender: Ely Mcmullen [facility] 07/06/2020 12:00:00 AM EDT ATHE NA ([facility]) [place] [address] [facility] [address] 06/28/2020 12:00:00 AM EDT eCW1 [facility]) Outpatient Attender: [facility] 12:00:00 AM EDT - 06/27/2020 11:20:52 AM EDT Cerebral aneurysm, nonruptured [facility] Cerebral aneurysm, nonruptured Office Visit Attender: Carmelita Jason MD Main office - [place] 06/22/2020 09:45:00 AM EDT MEDENT ([facility] Rohini marx ) Unknown [address] [facility] [address] 06/21/2020 12:00:00 AM EDT eCW1 [facility]) Outpatient Attender: Uma HEDRICK 06/20/2020 12:00:00 AM EDT [facility] Unknown [address] [facility] [address] 06/18/2020 12:00:00 AM EDT eCW1 ([facility]) Unknown [address] [facility] [address] 06/18/2020 12:00:00 AM EDT eCW1 ([facility]) Outpatient Attender: CHASIDY Johnston/Estiven/Amandeep/Rein dl 05/30/2020 09:30:00 AM EDT MEDENT ([facility] Hector morales, PRINCESS) Unknown [address] [facility] [address] 05/21/2020 12:00:00 AM EDT eCW1 ([facility]) Outpatient Attender: Susie Johnston/Estiven/A ngel/Reindl 05/11/2020 11:30:00 AM EDT MEDENT ([facility] PRINCESS Honeycutt) [place] [address] [facility] [address] 04/25/2020 12:00:00 AM EST eCW1 ([facility]) Outpatient [address] [facility] [address] 04/23/2020 12:00:00 AM EST eCW1 ([facility]) Office Visit Attender: Carmelita Jason MD Main office - [place] 04/18/2020 10:30:00 AM EST MEDENT ([facility] PRINCESS Burgess) Outpatient Attender: Susieargentina Johnston/Estiven/Sandra flynn/Taylor 04/09/2020 10:30:00 AM EST MEDENT ([facility] PRINCESS Honeycutt) Unknown [address] [facility] [address] 03/20/2020 12:00:00 AM EST eCW1 ([facility]) Ely Mcmullen, WELDER PRODUCTION LINE COMBINATION: [address], [place] [address], Ph. Attender: Ely Mcmullen [facility] 03/14/2020 12:00:00 AM EST ATHE NA ([facility]) Ely Mcmullen, WELDER PRODUCTION LINE COMBINATION: [address], [place] [address], Ph. Attender: Ely Mcmullen [facility] 03/14/2020 12:00:00 AM EST ATHE NA ([facility]) Ely Chingknickerbocker hospitalsara, WELDER PRODUCTION LINE COMBINATION: [address], [place] [address], Ph. Attender: Ely Mcmullen [facility] 03/14/2020 12:00:00 AM EST ATHE NA ([facility]) Outpatient Attender: Carmelita Jason MD [facility] [place] 03/07/2020 08:00:00 AM EST MEDENT ([facility] Rohini marx, PRINCESS) Unknown [address] [facility] [address] 03/06/2020 12:00:00 AM EST eCW1 ([facility]) Unknown [address] [facility] [address] 02/23/2020 12:00:00 AM EST eCW1 ([facility]) Duy Valente MD: [address]860 [address], [address] [place], [place] [address], Ph. Attender: Duy Valente [place] - [facility] 02/20/2020 12:00:00 AM EST POLO ([facility]) Duy Valente MD: 57056 [address], [place] [address], Ph. Attender: Duy Valente MD [place] - [facility] 02/20/2020 12:00:00 AM EST POLO ([facility]) Duy Valente MD: 46684 [address], [place] [address], Ph. Attender: Duy Valente MD [place] - [facility] 02/20/2020 12:00:00 AM EST POLO ([facility]) Duy Valente MD: [address]8501 [address], [place] [address], Ph. Attender: Duy Valente MD [place] - [facility] 02/20/2020 12:00:00 AM EST POLO ([facility]) Outpatient Attender: CHASIDY Johnston/Estiven/Amandeep/Luan dl 01/30/2020 01:00:00 PM EST MEDENT ([facility]) Ely Mcmullen, WELDER PRODUCTION LINE COMBINATION: [address], [place] [address], Ph. Attender: Ely Mcmullen [facility] 01/25/2020 12:00:00 AM EST ATHE NA ([facility]) Ely Mcmullen, WELDER PRODUCTION LINE COMBINATION: [address], [place] [address], Ph. Attender: Ely Mcmullen [facility] - [facility] 01/25/2020 12:00:00 AM EST ATHE NA ([facility]) Ely Mcmullen, WELDER PRODUCTION LINE COMBINATION: [address]34 [address], [place] [address], Ph. Attender: Ely Mcmullen [facility] - [facility] 01/25/2020 12:00:00 AM EST ATHE NA ([facility]) Ely Mcmullen, WELDER PRODUCTION LINE COMBINATION: [address]57 [address], [place] [address], Ph. Attender: Ely Mcmullen [facility] - [facility] 01/25/2020 12:00:00 AM EST ATHE NA ([facility]) Ely Mcmullen, WELDER PRODUCTION LINE COMBINATION: [address], [place] [address], Ph. Attender: Ely Mcmullen [facility] - [facility] 01/25/2020 12:00:00 AM EST ATHE NA ([facility]) Unknown [address] [facility] [address] 01/10/2020 12:00:00 AM EST eCW1 ([facility]) Duy Valente MD: [address]22 [address], [place] [address], Ph. Attender: Duy Valente MD [place] - [facility] 01/05/2020 12:00:00 AM EST POLO ([facility]) Duy Valente MD: 45000 [address], [place] [address], Ph. Attender: Duy Valente MD [place] - [facility] 01/05/2020 12:00:00 AM EST POLO ([facility]) Duy Valente MD: [address]6301 [address], [place] [address], Ph. Attender: Duy Valente MD [place] - [facility] 01/05/2020 12:00:00 AM EST POLO ([facility]) Duy Valente MD: 01404 [address], [place] [address], Ph. Attender: Duy Valente MD [place] - [facility] 01/05/2020 12:00:00 AM EST POLO ([facility]) Duy Valente MD: 27136 [address], [place] [address], Ph. Attender: Duy Valente MD [place] - [facility] 01/05/2020 12:00:00 AM EST POLO ([facility]) Duy Valente MD: 57653 [address], [place] [address], Ph. Attender: Duy Valente MD [place] - [facility] 01/05/2020 12:00:00 AM EST POLO ([facility]) Duy Valente MD: 24883 [address], [place] [address], Ph. Attender: Duy Valente MD [place] - [facility] 01/05/2020 12:00:00 AM EST POLO ([facility]) Unknown [address] [facility], [facility] [address] 01/02/2020 12:00:00 AM EST eCW1 ([facility]) Duy Valente MD: 37551 [address], [place] [address], Ph. [phone] Attender: Duy Valente MD [place] - [facility] 12/30/2019 12:00:00 AM EST POLO ([facility]) Duy Valente MD: [address]7580 [address], [address], [place] [address], Ph. [phone] Attender: Duy Valente MD [place] - [facility] 12/30/2019 12:00:00 AM EST POLO ([facility]) Duy Valente MD: 76881 [address], [address], [place] [address], Ph. [phone] Attender: Duy MULTANI - [facility] 12/30/2019 12:00:00 AM EST POLO ([facility]) Duy Valente MD: 59537 [address], [address], [place] [address], Ph. [phone] Attender: Duy MULTANI - [facility] 12/30/2019 12:00:00 AM EST POLO ([facility]) Duy Valente MD: 23286 [address], [address], [place] [address], Ph. [phone] Attender: Duy Valente MD [place] - [facility] 12/30/2019 12:00:00 AM EST POLO ([facility]) Duy Valente MD: 84171 [address], [address], [place] [address], Ph. [phone] Attender: Duy MULTANI - [facility] 12/30/2019 12:00:00 AM EST POLO ([facility]) Duy Valente MD: 00978 [address], [address], [place] [address], Ph. [phone] Attender: Duy MULTANI - [facility] 12/30/2019 12:00:00 AM EST POLO ([facility]) Duy Valente MD: 79185 [address], [place] [address], Ph. [phone] Attender: Duy Valente MD [place] - [facility] 12/30/2019 12:00:00 AM EST POLO ([facility]) Ely Mcmullen, WELDER PRODUCTION LINE COMBINATION: [address]69 [address], [place] [address], Ph. Attender: Ely Mcmullen [facility] 12/28/2019 12:00:00 AM EST ATHE NA ([facility]) Ely Mcmullen, WELDER PRODUCTION LINE COMBINATION: [address], [facility] [place] [address], Ph. Attender: Ely Mcmullen [facility] 12/28/2019 12:00:00 AM EST ATHE NA ([facility]) Ely Mcmullen, WELDER PRODUCTION LINE COMBINATION: [address]80 [address], [place] [address], Ph. Attender: Ely Mcmullen [facility] 12/28/2019 12:00:00 AM EST ATHE NA ([facility]) Ely Mcmullen, WELDER PRODUCTION LINE COMBINATION: [address]38 [address], [place] [address], Ph. Attender: Ely Mcmullen [facility] 12/28/2019 12:00:00 AM EST ATHE NA ([facility]) Ely Jones Jeanekoffisara, WELDER PRODUCTION LINE COMBINATION: [address]134 [address], [place] [address], Ph. Attender: Ely Mcmullen [employer] [place] - [facility] 12/28/2019 12:00:00 AM EST ATHE NA ([facility]) Ely Mcmullen, WELDER PRODUCTION LINE COMBINATION: [address]241 [address], [place] [address], Ph. Attender: Ely Mcmullen [facility] - [facility] 12/28/2019 12:00:00 AM EST ATHE NA ([facility]) Ely Mcmullen, WELDER PRODUCTION LINE COMBINATION: [address]951 [address], [place] [address], Ph. Attender: Ely Mcmullen [facility] - [facility] 12/28/2019 12:00:00 AM EST ATHE NA ([facility]) Ely Mcmullen, WELDER PRODUCTION LINE COMBINATION: [address]1651 [address], [place] [address], Ph. Attender: Ely Mcmullen [facility] - [facility] 12/28/2019 12:00:00 AM EST ATHE NA ([facility]) Unknown [address] [facility], [facility] [address] 12/28/2019 12:00:00 AM EST eCW1 ([facility]) Ely Mcmullen, WELDER PRODUCTION LINE COMBINATION: [address]88 [address], [place] [address], Ph. Attender: Ely Mcmullen [facility] - [facility] 12/28/2019 12:00:00 AM EST ATHE NA ([facility]) Unknown [address] [facility], [facility] [address] 12/26/2019 12:00:00 AM EST eCW1 ([facility]) Duy Valente MD: 94494 [address], [place] [address], Ph. Attender: Duy Valente MD [place] - [facility] 12/15/2019 12:00:00 AM EDT POLO ([facility]) Duy Valente MD: 36163 [address], [address], [place] [address], Ph. Attender: Duy Valente MD [place] - [facility] 12/15/2019 12:00:00 AM EDT POLO ([facility]) Duy Valente MD: 46984 [address], [address], [place] [address], Ph. Attender: Duy Valente MD [place] - [facility] 12/15/2019 12:00:00 AM EDT POLO ([facility]) Duy Valente MD: 18177 [address], [address], [place] [address], Ph. Attender: Duy MULTANI - [facility] 12/15/2019 12:00:00 AM EDT POLO ([facility]) Duy Valente MD: 38549 [address], [address], [place] [address], Ph. Attender: Duy MULTANI - [facility] 12/15/2019 12:00:00 AM EDT POLO ([facility]) Duy Valente MD: 33451 [address], [address], [place] [address], Ph. Attender: Duy Valente MD [place] - [facility] 12/15/2019 12:00:00 AM EDT POLO ([facility]) Duy Valente MD: 88997 [address], [address], [place] [address], Ph. Attender: Duy Valente MD [place] - [facility] 12/15/2019 12:00:00 AM EDT POLO ([facility]) Duy Valente MD: 85454 [address], [address], [place] [address], Ph. Attender: Duy Valente MD [place] - [facility] 12/15/2019 12:00:00 AM EDT POLO ([facility]) Duy Valente MD: 90047 [address], [address], [place] [address], Ph. Attender: Duy Valente MD [place] - [facility] 12/15/2019 12:00:00 AM EDT POLO ([facility]) Duy Valente MD: 79892 [address], [address], [place] [address], Ph. Attender: Duy MULTANI - [facility] 12/15/2019 12:00:00 AM EDT POLO ([facility]) Duy Valente MD: 38243 [address], [address], [place] [address], Ph. Attender: Duy MULTANI - [facility] 12/14/2019 12:00:00 AM EDT POLO ([facility]) Duy Valente MD: 88538 [address], [address], [place] [address], Ph. Attender: Duy MULTANI - [facility] 12/14/2019 12:00:00 AM EDT POLO ([facility]) Duy Valente MD: 15976 [address], [address], [place] [address], Ph. Attender: Duy Valente MD [place] - [facility] 12/14/2019 12:00:00 AM EDT POLO ([facility]) Duy Valente MD: 13914 [address], [address], [place] [address], Ph. Attender: Duy MULTANI - [facility] 12/14/2019 12:00:00 AM EDT POLO ([facility]) Duy Valente MD: 44468 [address], [address], [place] [address], Ph. Attender: Duy Valente MD [place] - [facility] 12/14/2019 12:00:00 AM EDT POLO ([facility]) Duy Valente MD: 16521 [address], [address], [place] [address], Ph. Attender: Duy MULTANI - [facility] 12/14/2019 12:00:00 AM EDT POLO ([facility]) Duy Valente MD: 38537 [address], [address], [place] [address], Ph. Attender: Duy MULTANI - [facility] 12/14/2019 12:00:00 AM EDT POLO ([facility]) Duy Valente MD: 09555 [address], [address], [place] [address], Ph. Attender: Duy MULTANI - [facility] 12/14/2019 12:00:00 AM EDT POLO ([facility]) Duy Valente MD: 43142 [address], [address], [place] [address], Ph. Attender: Duy Valente MD [place] - [facility] 12/14/2019 12:00:00 AM EDT POLO ([facility]) Duy Valente MD: 79346 [address], [place] [address], Ph. Attender: Duy Valente MD [place] - [facility] 12/14/2019 12:00:00 AM EDT POLO ([facility]) Duy Valente MD: 71314 [address], [place] [address], Ph. Attender: Duy Valente MD [place] - [facility] 12/14/2019 12:00:00 AM EDT POLO ([facility]) Outpatient [address] [facility] [address] 12/13/2019 12:00:00 AM EDT eCW ([facility]) Duy Valente MD: 49851 [address], [place] [address], Ph. [phone] Attender: Duy Valente MD [place] - [facility] 12/09/2019 12:00:00 AM EDT POLO ([facility]) Duy Valente MD: 00621 [address], [place] [address], Ph. [phone] Attender: Duy MULTANI - [facility] 12/09/2019 12:00:00 AM EDT POLO ([facility]) Duy Valente MD: 40646 [address], [place] [address], Ph. [phone] Attender: Duy MULTANI - [facility] 12/09/2019 12:00:00 AM EDT POLO ([facility]) Duy Valente MD: 27068 [address], [address], [place] [address], Ph. [phone] Attender: Duy Valente MD [place] - [facility] 12/09/2019 12:00:00 AM EDT POLO ([facility]) Duy Valente MD: 51977 [address], [address], [place] [address], Ph. [phone] Attender: Duy Valente MD [place] - [facility] 12/09/2019 12:00:00 AM EDT POLO ([facility]) Duy Valente MD: 42492 [address], [address], [place] [address], Ph. [phone] Attender: Duy Valente MD [place] - [facility] 12/09/2019 12:00:00 AM EDT POLO ([facility]) Duy Valente MD: 30837 [address], [address], [place] [address], Ph. [phone] Attender: Duy Valente MD [place] - [facility] 12/09/2019 12:00:00 AM EDT POLO ([facility]) Duy Valente MD: 25900 [address], [address], [place] [address], Ph. [phone] Attender: Duy Valente MD [place] - [facility] 12/09/2019 12:00:00 AM EDT POLO ([facility]) Duy Valente MD: 42925 [address], [address], [place] [address], Ph. [phone] Attender: Duy Valente MD [place] - [facility] 12/09/2019 12:00:00 AM EDT POLO ([facility]) Duy Valente MD: 37671 [address], [address], [place] [address], Ph. [phone] Attender: Duy Valente MD [place] - [facility] 12/09/2019 12:00:00 AM EDT POLO ([facility]) Duy Valente MD: 77527 [address], [address], [place] [address], Ph. [phone] Attender: Duy Valente MD [place] - [facility] 12/09/2019 12:00:00 AM EDT POLO ([facility]) Duy Valente MD: 55746 [address], [address], [place] [address], Ph. [phone] Attender: Duy Valente MD [place] - [facility] 12/09/2019 12:00:00 AM EDT POLO ([facility]) Ely Mcmullen, WELDER PRODUCTION LINE COMBINATION: [address]13 [address], [place] [address], Ph. Attender: Ely Mcmullen [facility] 11/22/2019 12:00:00 AM EDT ATHShy NA ([facility]) Ely Mcmullen, WELDER [employer]ODUCTION LINE COMBINATION: 21859 [address], [place] [address], Ph. Attender: Eyl Mcmullen [facility] 11/22/2019 12:00:00 AM EDT ATHE NA ([facility]) Ely Mcmullen, WELDER PRODUCTION LINE COMBINATION: 61521 [address], [address], [place] [address], Ph. Attender: Ely Mcmullen [facility] - [facility] 11/22/2019 12:00:00 AM EDT ATHShy NA ([facility]) Ely Mcmullen, WELDER PRODUCTION LINE COMBINATION: 12824 [address], [address], [place] [address], Ph. Attender: Ely Mcmullen [facility] - [facility] 11/22/2019 12:00:00 AM EDT ATHE NA ([facility]) Ely Mcmullen, WELDER [employer]ODUCTION LINE COMBINATION: 39840 [address], [place] [address], Ph. Attender: Ely Mcmullen [facility] - [facility] 11/22/2019 12:00:00 AM EDT ATHE NA ([facility]) Ely Mcmullen, WELDER [employer]ODUCTION LINE COMBINATION: 09482 [address], [place] [address], Ph. Attender: lEy Mcmullen [facility] - [facility] 11/22/2019 12:00:00 AM EDT ATHE NA ([facility]) Ely Mcmullen, WELDER [employer]ODUCTION LINE COMBINATION: 98641 [address], [place] [address], Ph. Attender: Ely Mcmullen [facility] - [facility] 11/22/2019 12:00:00 AM EDT ATHE NA ([facility]) Ely Mcmullen, WELDER PRODUCTION LINE COMBINATION: 15818 [address], [place] [address], Ph. Attender: Ely Mcmullen [facility] - [facility] 11/22/2019 12:00:00 AM EDT ATHE NA ([facility]) Ely Mcmullen, WELDER PRODUCTION LINE COMBINATION: 00768 [address], [place] [address], Ph. Attender: Ely Mcmullen [facility] - [facility] 11/22/2019 12:00:00 AM EDT ATHE NA ([facility]) Ely Mcmullen, WELDER PRODUCTION LINE COMBINATION: 35539 [address], [place] [address], Ph. Attender: Ely Mcmullen [facility] - [facility] 11/22/2019 12:00:00 AM EDT ATHE NA ([facility]) Ely Mcmullen, WELDER PRODUCTION LINE COMBINATION: 55603 [address], [address], [place] [address], Ph. Attender: Ely Mcmullen [facility] - [facility] 11/22/2019 12:00:00 AM EDT ATHShy NA ([facility]) Ely Mcmullen, WELDER PRODUCTION LINE COMBINATION: 12612 [address], [place] [address], Ph. Attender: Ely Mcmullen [facility] - [facility] 11/22/2019 12:00:00 AM EDT ATHE NA ([facility]) Ely Mcmullen, WELDER PRODUCTION LINE COMBINATION: 11219 [address], [place] [address], Ph. Attender: Ely Mcmullen [facility] - [facility] 11/22/2019 12:00:00 AM EDT ATHE NA ([facility]) Unknown [address] [facility] [address] 11/21/2019 12:00:00 AM EDT eCW ([facility]) Duy Valente MD: 63176 [address], [place] [address], Ph. Attender: Duy Valente MD [place] - [facility] 10/18/2019 12:00:00 AM EDT POLO ([facility]) Duy Valente MD: 03025 [address], [address], [place], [place] [address], Ph. Attender: Duy Valente [place] - [facility] 10/18/2019 12:00:00 AM EDT POLO ([facility]) Duy Valente MD: [id number], [address], [place] [address], Ph. Attender: Duy Valente MD [place] - [facility] 10/18/2019 12:00:00 AM EDT POLO ([facility]) Duy Valente MD: [id number], [address], [place] [address], Ph. Attender: Duy MULTANI - [facility] 10/18/2019 12:00:00 AM EDT POLO ([facility]) Duy Valente MD: [id number], [address], [place] [address], Ph. Attender: Duy MULTANI - [facility] 10/18/2019 12:00:00 AM EDT POLO ([facility]) Duy Valente MD: [id number], [address], [place] [address], Ph. Attender: Duy MULTANI - [facility] 10/18/2019 12:00:00 AM EDT POLO ([facility]) Duy Valente MD: [id number], [address], [place] [address], Ph. Attender: Duy MULTANI - [facility] 10/18/2019 12:00:00 AM EDT POLO ([facility]) Duy Valente MD: [id number], [address], [place] [address], Ph. Attender: Duy Valente MD [place] - [facility] 10/18/2019 12:00:00 AM EDT POLO ([facility]) Duy Valente MD: [id number], [address], [place] [address], Ph. Attender: Duy Valente MD [place] - [facility] 10/18/2019 12:00:00 AM EDT POLO ([facility]) Duy Valente MD: [id number], [address], [place] [address], Ph. Attender: Duy Valente MD [place] - [facility] 10/18/2019 12:00:00 AM EDT POLO ([facility]) Duy Valente MD: [id number], [address], [place] [address], Ph. Attender: Duy MULTANI - [facility] 10/18/2019 12:00:00 AM EDT POLO ([facility]) Duy Valente MD: [address], [address], [place] [address], Ph. Attender: Duy MULTANI - [facility] 10/18/2019 12:00:00 AM EDT POLO ([facility]) Duy Valente MD: [address], [address], [place] [address], Ph. Attender: Duy MULTANI - [facility] 10/18/2019 12:00:00 AM EDT POLO ([facility]) Duy Valente MD: [id number], [address], [place] [address], Ph. Attender: Duy Valente MD [place] - [facility] - Main Office 10/18/2019 12:00:00 AM EDT POLO ([facility]) Immunizations Vaccine Date Status Description Data Source(s) VARICELLA-ZOSTER GE/AS01B/PF 07/08/2020 12:00:00 AM EDT completed [facility] COVID-19 VACCINE Moderna 06/18/2020 12:00:00 AM EDT completed [facility] Vaccine Series Complete: YESThis Data wa s Submitted to [facility] Via Let. COVID-19 VACC,MRNA(MODERNA)/PF 06/18/2020 12:00:00 AM EDT completed [facility] COVID-19 VACCINE Moderna 05/17/2020 12:00:00 AM EDT completed [facility] Vaccine Series Complete: NOThis Data was Submitted to [facility] Via Let. COVID-19 VACCINE, MRNA-1273, LNP-S (MODERNA)/PF 05/17/2020 1 2:00:00 AM EDT completed [facility] INFLUENZA VIRUS VACCINE QUADRIVAL (6 MOS AND UP)/PF 12/06/2019 12:00:00 AM EDT completed [facility] PNEUMOCOCCAL 23-VALENT POLYSACCHARIDE VACCINE 12/06/2019 12: 00:00 AM EDT completed [facility] pneumococcal polysaccharide PPV23 12/05/2019 07:24:00 AM EDT comple alyssa eCW1 ([facility]) pneumococcal polysaccharide PPV23 12/05/2019 07:24:00 AM EDT comple alyssa eCW1 ([facility]) pneumococcal polysaccharide PPV23 12/05/2019 07:24:00 AM EDT comple alyssa eCW1 ([facility]) pneumococcal polysaccharide PPV23 12/05/2019 07:24:00 AM EDT comple alyssa eCW1 ([facility]) pneumococcal polysaccharide PPV23 12/05/2019 07:24:00 AM EDT comple alyssa eCW1 ([facility]) pneumococcal polysaccharide PPV23 12/05/2019 07:24:00 AM EDT comple alyssa eCW1 ([facility]) pneumococcal polysaccharide PPV23 12/05/2019 07:24:00 AM EDT comple alyssa eCW1 ([facility]) pneumococcal polysaccharide PPV23 12/05/2019 07:24:00 AM EDT comple alyssa eCW1 ([facility]) pneumococcal polysaccharide PPV23 12/05/2019 07:24:00 AM EDT comple alyssa eCW1 ([facility]) pneumococcal polysaccharide PPV23 12/05/2019 07:24:00 AM EDT comple alyssa eCW1 ([facility]) pneumococcal polysaccharide PPV23 12/05/2019 07:24:00 AM EDT comple alyssa eCW1 ([facility]) pneumococcal polysaccharide PPV23 12/05/2019 07:24:00 AM EDT comple alyssa eCW1 ([facility]) pneumococcal polysaccharide PPV23 12/05/2019 07:24:00 AM EDT comple alyssa eCW1 ([facility]) pneumococcal polysaccharide PPV23 12/05/2019 07:24:00 AM EDT comple alyssa eCW1 ([facility]) pneumococcal polysaccharide PPV23 12/05/2019 07:24:00 AM EDT comple alyssa eCW1 ([facility]) pneumococcal polysaccharide PPV23 12/05/2019 07:24:00 AM EDT comple alyssa eCW1 ([facility]) pneumococcal polysaccharide PPV23 12/05/2019 07:24:00 AM EDT comple alyssa eCW1 ([facility]) pneumococcal polysaccharide PPV23 12/05/2019 07:24:00 AM EDT comple alyssa eCW1 ([facility]) pneumococcal polysaccharide PPV23 12/05/2019 07:24:00 AM EDT comple alyssa eCW1 ([facility]) pneumococcal polysaccharide PPV23 12/05/2019 07:24:00 AM EDT comple alyssa eCW1 ([facility]) pneumococcal polysaccharide PPV23 12/05/2019 07:24:00 AM EDT comple alyssa eCW1 ([facility]) pneumococcal polysaccharide PPV23 12/05/2019 07:24:00 AM EDT comple alyssa eCW1 ([facility]) pneumococcal polysaccharide PPV23 12/05/2019 07:24:00 AM EDT comple alyssa eCW1 ([facility]) pneumococcal polysaccharide PPV23 12/05/2019 07:24:00 AM EDT comple alyssa eCW1 ([facility]) pneumococcal polysaccharide PPV23 12/05/2019 07:24:00 AM EDT comple alyssa eCW1 ([facility]) pneumococcal polysaccharide PPV23 12/05/2019 07:24:00 AM EDT comple alyssa eCW1 ([facility]) pneumococcal polysaccharide PPV23 12/05/2019 07:24:00 AM EDT comple alyssa eCW1 ([facility]) pneumococcal polysaccharide PPV23 12/05/2019 07:24:00 AM EDT comple alyssa eCW1 ([facility]) pneumococcal polysaccharide PPV23 12/05/2019 07:24:00 AM EDT comple alyssa eCW1 ([facility]) pneumococcal polysaccharide PPV23 12/05/2019 07:24:00 AM EDT comple alyssa eCW1 ([facility]) IIV3. This is one of two codes replacing CVX 15, which is being retired. 12/05/2019 07:23:00 AM EDT completed eCW1 ([facility]) IIV3. This is one of two codes replacing CVX 15, which is being retired. 12/05/2019 07:23:00 AM EDT completed eCW1 ([facility]) IIV3. This is one of two codes replacing CVX 15, which is being retired. 12/05/2019 07:23:00 AM EDT completed eCW1 ([facility]) IIV3. This is one of two codes replacing CVX 15, which is being retired. 12/05/2019 07:23:00 AM EDT completed eCW1 ([facility]) IIV3. This is one of two codes replacing CVX 15, which is being retired. 12/05/2019 07:23:00 AM EDT completed eCW1 ([facility]) IIV3. This is one of two codes replacing CVX 15, which is being retired. 12/05/2019 07:23:00 AM EDT completed eCW1 ([facility]) IIV3. This is one of two codes replacing CVX 15, which is being retired. 12/05/2019 07:23:00 AM EDT completed eCW1 ([facility]) IIV3. This is one of two codes replacing CVX 15, which is being retired. 12/05/2019 07:23:00 AM EDT completed eCW1 ([facility]) IIV3. This is one of two codes replacing CVX 15, which is being retired. 12/05/2019 07:23:00 AM EDT completed eCW1 ([facility]) IIV3. This is one of two codes replacing CVX 15, which is being retired. 12/05/2019 07:23:00 AM EDT completed eCW1 ([facility]) IIV3. This is one of two codes replacing CVX 15, which is being retired. 12/05/2019 07:23:00 AM EDT completed eCW1 ([facility]) IIV3. This is one of two codes replacing CVX 15, which is being retired. 12/05/2019 07:23:00 AM EDT completed eCW1 ([facility]) IIV3. This is one of two codes replacing CVX 15, which is being retired. 12/05/2019 07:23:00 AM EDT completed eCW1 ([facility]) IIV3. This is one of two codes replacing CVX 15, which is being retired. 12/05/2019 07:23:00 AM EDT completed eCW1 ([facility]) IIV3. This is one of two codes replacing CVX 15, which is being retired. 12/05/2019 07:23:00 AM EDT completed eCW1 ([facility]) IIV3. This is one of two codes replacing CVX 15, which is being retired. 12/05/2019 07:23:00 AM EDT completed eCW1 ([facility]) IIV3. This is one of two codes replacing CVX 15, which is being retired. 12/05/2019 07:23:00 AM EDT completed eCW1 ([facility]) IIV3. This is one of two codes replacing CVX 15, which is being retired. 12/05/2019 07:23:00 AM EDT completed eCW1 ([facility]) IIV3. This is one of two codes replacing CVX 15, which is being retired. 12/05/2019 07:23:00 AM EDT completed eCW1 ([facility]) IIV3. This is one of two codes replacing CVX 15, which is being retired. 12/05/2019 07:23:00 AM EDT completed eCW1 ([facility]) IIV3. This is one of two codes replacing CVX 15, which is being retired. 12/05/2019 07:23:00 AM EDT completed eCW1 ([facility]) IIV3. This is one of two codes replacing CVX 15, which is being retired. 12/05/2019 07:23:00 AM EDT completed eCW1 ([facility]) IIV3. This is one of two codes replacing CVX 15, which is being retired. 12/05/2019 07:23:00 AM EDT completed eCW1 ([facility]) IIV3. This is one of two codes replacing CVX 15, which is being retired. 12/05/2019 07:23:00 AM EDT completed eCW1 ([facility]) IIV3. This is one of two codes replacing CVX 15, which is being retired. 12/05/2019 07:23:00 AM EDT completed eCW1 ([facility]) IIV3. This is one of two codes replacing CVX 15, which is being retired. 12/05/2019 07:23:00 AM EDT completed eCW1 ([facility]) IIV3. This is one of two codes replacing CVX 15, which is being retired. 12/05/2019 07:23:00 AM EDT completed eCW1 ([facility]) IIV3. This is one of two codes replacing CVX 15, which is being retired. 12/05/2019 07:23:00 AM EDT completed eCW1 ([facility]) IIV3. This is one of two codes replacing CVX 15, which is being retired. 12/05/2019 07:23:00 AM EDT completed eCW1 ([facility]) IIV3. This is one of two codes replacing CVX 15, which is being retired. 12/05/2019 07:23:00 AM EDT completed eCW1 ([facility]) Medications Medication Brand Name Start Date Product Form Dose Route Admi nistrative Instructions Pharmacy Instructions Status Indications Reaction Description Data Source(s) Paroxetine Hydrochloride 30 MG Oral Tablet PAROXETINE HCL 11/20/2020 12:00:00 AM EDT tablet 90 TAKE ONE TABLET BY MOUTH EDUIN RY MORNING TAKE ONE TABLET BY MOUTH EVERY MORNING SOLD: 11/22/2020 [facility] Famotidine 40 MG Oral Tablet FAMOTIDINE 11/09/2020 12:00:00 AM EDT tab let 30 TAKE ONE TABLET BY MOUTH EVERY EVENING TAKE ONE TABLET BY MOUTH EVERY EVENING SOLD: 11/15/2020 [facility] BLOOD SUGAR DIAGNOSTIC 10/20/2020 12:00:00 AM EDT strip 100 DIRECTED DAILY NEEDED DIRECTED DAILY NEEDED SOLD: 10/20/2020 [facility] 33 gauge 10/20/2020 12:00:00 AM EDT misc 100 USE ONCE DAILY DIRECTED NEEDED USE ONCE DAILY DIRECTED NEEDED SOLD: 10/20/2020 [facility] Glucometer UNK 10/19/2020 12:00:00 AM EDT active Glucometer eCW1 ([facility]) Lancets - Lancets - 10/19/2020 12:00:00 AM EDT act matt Lancets - eCW1 ([facility]) Lancets - Lancets - 10/19/2020 12:00:00 AM EDT act matt Lancets - eCW1 ([facility]) Isopropyl Alcohol 0.7 ML/ML Medicated Pad Alcohol Swabs 70 % Alcohol Swabs 70 % 10/19/2020 12:00:00 AM EDT active Alcohol Swabs 70 % eCW1 ([facility]) Glucometer UNK 10/19/2020 12:00:00 AM EDT active Glucometer eCW1 ([facility]) Contour Next Test - Contour Next Test - 10/19/2020 12:00:00 AM EDT active Contour Next Test - eCW1 ([facility]) Lancets - Lancets - 10/19/2020 12:00:00 AM EDT act matt Lancets - eCW1 ([facility]) Glucometer UNK 10/19/2020 12:00:00 AM EDT active Glucometer eCW1 ([facility]) Glucometer UNK 10/19/2020 12:00:00 AM EDT active Glucometer eCW1 ([facility]) Isopropyl Alcohol 0.7 ML/ML Medicated Pad Alcohol Swabs 70 % Alcohol Swabs 70 % 10/19/2020 12:00:00 AM EDT active Alcohol Swabs 70 % eCW1 ([facility]) Contour Next Test - Contour Next Test - 10/19/2020 12:00:00 AM EDT active Contour Next Test - eCW1 ([facility]) Lancets - Lancets - 10/19/2020 12:00:00 AM EDT act matt Lancets - eCW1 ([facility]) Contour Next Test - Contour Next Test - 10/19/2020 12:00:00 AM EDT active Contour Next Test - eCW1 ([facility]) Isopropyl Alcohol 0.7 ML/ML Medicated Pad Alcohol Swabs 70 % Alcohol Swabs 70 % 10/19/2020 12:00:00 AM EDT active Alcohol Swabs 70 % eCW1 ([facility]) Contour Next Test - Contour Next Test - 10/19/2020 12:00:00 AM EDT active Contour Next Test - eCW1 ([facility]) Isopropyl Alcohol 0.7 ML/ML Medicated Pad Alcohol Swabs 70 % Alcohol Swabs 70 % 10/19/2020 12:00:00 AM EDT active Alcohol Swabs 70 % eCW1 ([facility]) Cephalexin 500 MG Oral Capsule CEPHALEXIN 10/16/2020 12:00:00 AM EDT capsule 14 TAKE ONE CAPSULE BY MOUTH TWICE A DAY FO 7 DAYS TAKE O NE CAPSULE BY MOUTH TWICE A DAY FO 7 DAYS SOLD: 10/16/2020 [facility] Cephalexin 500 MG Oral Capsule Cephalexin 500 MG 10/16/2020 12:00:0 0 AM EDT 1.0 {capsule} active Cephalexin 500 MG eCW1 ([facility]) Cephalexin 500 MG Oral Capsule Cephalexin 500 MG 10/16/2020 12:00:0 0 AM EDT 1.0 {capsule} active Cephalexin 500 MG eCW1 ([facility]) potassium chloride SA (K-DUR,KLOR-CON) 20 MEQ tablet 18170-4 99-01 10/16/2020 12:00:00 AM EDT active TAKE TWO TABLETS BY MOUTH EVERY DAY WITH FOOD [facility] 20 mEq 10/16/2020 12:00:00 AM EDT tablet,ER particles/cry stals 60 TAKE TWO TABLETS BY MOUTH EVERY DAY WITH FOOD TAKE TWO TABLETS BY MOUTH EVERY DAY WITH FOOD SOLD: 10/16/2020 [facility] Cephalexin 500 MG Oral Capsule Cephalexin 500 MG 10/16/2020 12:00:0 0 AM EDT 1.0 {capsule} active Cephalexin 500 MG eCW1 ([facility]) Cephalexin 500 MG Oral Capsule Cephalexin 500 MG 10/16/2020 12:00:0 0 AM EDT 1.0 {capsule} active Cephalexin 500 MG eCW1 ([facility]) 75 mg 09/12/2020 12:00:00 AM EDT tablet 90 TAKE ONE TABLET BY MOUTH EVERY DAY TAKE ONE TABLET BY MOUTH EVERY DAY SOLD: 09/16/2020 [facility] 200 mcg/actuation 09/07/2020 12:00:00 AM EDT blister with de vice 30 INHALE ONE PUFF BY MOUTH EVERY DAY INHALE ONE PUFF BY MOUTH EVERY DAY SOLD: 09/12/2020 [facility] 30 ACTUAT umeclidinium 0.0625 MG/ACTUAT / vilanterol 0.025 MG/ACTUAT Dry Powder Inhaler [Anoro] 62.5-25 mcg/actuation UMECLIDINIUM BRM/VILANTEROL TR 09/07/2020 12:00:00 AM EDT blister with device 60 INHALE ONE PUFF BY MOUTH EVERY DAY INHALE ONE PUFF BY MOUTH EVERY DAY SOLD: 09/12/2020 [facility] 90 mcg/actuation 09/05/2020 12:00:00 AM EDT HFA aerosol inha ler 8 INHALE TWO PUFFS BY MOUTH FOUR TIMES A DAY NEEDED INHALE TWO PUFFS BY MOUTH FOUR TIMES A DAY NEEDED SOLD: 12/05/2020 [facility] 90 mcg/actuation 09/05/2020 12:00:00 AM EDT HFA aerosol inha ler 8 INHALE TWO PUFFS BY MOUTH FOUR TIMES A DAY NEEDED INHALE TWO PUFFS BY MOUTH FOUR TIMES A DAY NEEDED SOLD: 09/12/2020 [facility] albuterol (PROVENTIL HFA;VENTOLIN HFA) 108 (90 Base) M CG/ACT inhaler 7252-2766-12 09/04/2020 12:00:00 AM EDT active [facility] 100 mg 08/31/2020 12:00:00 AM EDT tablet 180 TAKE ONE TABLET BY MOUTH TWICE A DAY TAKE ONE TABLET BY MOUTH TWICE A DAY SOLD: 08/31/2020 [facility] 100 mg 08/31/2020 12:00:00 AM EDT tablet 180 TAKE ONE TABLET BY MOUTH TWICE A DAY TAKE ONE TABLET BY MOUTH TWICE A DAY SOLD: 12/05/2020 [facility] PARoxetine (PAXIL) 30 MG tablet [address]-9 08/20/2020 12:00:00 AM E DT 30 mg Oral active Take 30 mg by mouth [facility] 30 ACTUAT fluticasone furoate 0.2 MG/ACT UAT Dry Powder Inhaler [Arnuity] Arnuity Ellipta 200 MCG/ACT AEPB Arnuity Ellipta 200 MCG/ACT AEPB 08/15/2020 12:00:00 AM EDT active INHALE 1 PUFF BY MOUTH ONCE DAILY [facility] 30 ACTUAT umeclidinium 0.0625 MG/ACTUAT / vilanterol 0.025 MG/ACTUAT Dry Powder Inhaler [Anoro] Anoro Ellipta 62.5-25 MCG/INH inhaler Anoro Ellipta 62.5-25 MCG/INH inhaler 08/15/2020 12:00:00 AM EDT ac tive INHALE ONE PUFF BY MOUTH EVERY DAY [facility] Unifine Pentips Plus 31G X 5 MM [facility] 94398-244-26 08/11/2020 12:00: 00 AM EDT active USE DIRECTED DAILY WI TH TYMLOS [facility] Famotidine 40 MG Oral Tablet FAMOTIDINE 08/07/2020 12:00:00 AM EDT tab let 30 TAKE ONE TABLET BY MOUTH EVERY EVENING TAKE ONE TABLET BY MOUTH EVERY EVENING SOLD: 10/09/2020 [facility] Famotidine 40 MG Oral Tablet FAMOTIDINE 08/07/2020 12:00:00 AM EDT tab let 30 TAKE ONE TABLET BY MOUTH EVERY EVENING TAKE ONE TABLET BY MOUTH EVERY EVENING SOLD: 09/12/2020 [facility] 20 mEq 08/07/2020 12:00:00 AM EDT tablet,ER particles/cry stals 2 TAKE TWO TABLETS BY MOUTH EVERY DAY WITH FOOD FOR 1 DAY TAKE TWO TABLETS BY MOUTH EVERY DAY WITH FOOD FOR 1 DAY SOLD: 08/09/2020 [facility] Famotidine 40 MG Oral Tablet FAMOTIDINE 08/07/2020 12:00:00 AM EDT tab let 30 TAKE ONE TABLET BY MOUTH EVERY EVENING TAKE ONE TABLET BY MOUTH EVERY EVENING SOLD: 08/09/2020 [facility] Tymlos 3120 MCG/1.56ML Subcutaneous Solution Pen-injector 70 539-001-01 08/06/2020 12:00:00 AM EDT active [facility] Klor-Con M20 20 MEQ Klor-Con M20 20 MEQ 08/06/2020 12:00:00 AM EDT 2.0 {tablet_with_food} active Klor-Con M20 20 MEQ eCW1 ([facility]) Klor-Con M20 20 MEQ Klor-Con M20 20 MEQ 08/06/2020 12:00:00 AM EDT 2.0 {tablet_with_food} active Klor-Con M20 20 MEQ eCW1 ([facility]) Tymlos Tymlos 08/06/2020 12:00:00 AM EDT completed MEDENT ([facility]) Klor-Con M20 20 MEQ Klor-Con M20 20 MEQ 08/06/2020 12:00:00 AM EDT 2.0 {tablet_with_food} active Klor-Con M20 20 MEQ eCW1 ([facility]) Pen Marana 08/06/2020 12:00:00 AM EDT active MEDENT ([facility]) Klor-Con M20 20 MEQ Klor-Con M20 20 MEQ 08/06/2020 12:00:00 AM EDT 2.0 {tablet_with_food} active Klor-Con M20 20 MEQ eCW1 ([facility]) Klor-Con M20 20 MEQ Klor-Con M20 20 MEQ 08/06/2020 12:00:00 AM EDT 2.0 {tablet_with_food} active Klor-Con M20 20 MEQ eCW1 ([facility]) Klor-Con M20 20 MEQ Klor-Con M20 20 MEQ 08/06/2020 12:00:00 AM EDT 2.0 {tablet_with_food} active Klor-Con M20 20 MEQ eCW1 ([facility]) Abaloparatide (Tymlos) 3120 MCG/1.56ML SOPN 30610-174-59 08/06/2020 12:00:00 AM EDT active [facility] Klor-Con M20 20 MEQ Klor-Con M20 20 MEQ 08/06/2020 12:00:00 AM EDT 2.0 {tablet_with_food} active Klor-Con M20 20 MEQ eCW1 ([facility]) Klor-Con M20 20 MEQ Klor-Con M20 20 MEQ 08/06/2020 12:00:00 AM EDT 2.0 {tablet_with_food} active Klor-Con M20 20 MEQ eCW1 ([facility]) Klor-Con M20 20 MEQ Klor-Con M20 20 MEQ 08/06/2020 12:00:00 AM EDT 2.0 {tablet_with_food} active Klor-Con M20 20 MEQ eCW1 ([facility]) Klor-Con M20 20 MEQ Klor-Con M20 20 MEQ 08/06/2020 12:00:00 AM EDT 2.0 {tablet_with_food} active Klor-Con M20 20 MEQ eCW1 ([facility]) Klor-Con M20 20 MEQ Klor-Con M20 20 MEQ 08/06/2020 12:00:00 AM EDT 2.0 {tablet_with_food} active Klor-Con M20 20 MEQ eCW1 ([facility]) tizanidine 4 MG Oral Tablet TIZANIDINE HCL 07/30/2020 12:00:00 AM EDT tablet 90 TAKE ONE TABLET BY MOUTH EVERY 8 HOURS NEEDED TAKE ONE TABLET BY MOUTH EVERY 8 HOURS NEEDED SOLD: 08/07/2020 [facility] Famotidine 40 MG Oral Tablet Famotidine 07/19/2020 12:00:00 AM EDT active MEDENT ([facility]) tizanidine 4 MG Oral Tablet TIZANIDINE HCL 07/06/2020 12:00:00 AM EDT tablet 90 TAKE ONE TABLET BY MOUTH EVERY 8 HOURS NEEDED TAKE ONE TABLET BY MOUTH EVERY 8 HOURS NEEDED SOLD: 07/08/2020 [facility] tizanidine 4 MG Oral Tablet TIZANIDINE HCL 07/06/2020 12:00:00 AM EDT tablet 90 TAKE ONE TABLET BY MOUTH EVERY 8 HOURS NEEDED TAKE ONE TABLET BY MOUTH EVERY 8 HOURS NEEDED SOLD: 09/12/2020 [facility] 400 mg 07/03/2020 12:00:00 AM EDT capsule 180 TAKE ONE CAPSULE BY MOUTH TWICE A DAY TAKE ONE CAPSULE BY MOUTH TWICE A DAY SOLD: 10/09/2020 [facility] gabapentin 400 MG Oral Capsule gabapentin (NEURONTIN) 400 MG capsule gabapentin (NEURONTIN) 400 MG capsule 07/03/2020 12:00:00 AM EDT 400 mg Oral active Take 400 mg by mouth 2 (two) times a day [facility] 400 mg 07/03/2020 12:00:00 AM EDT capsule 180 TAKE ONE CAPSULE BY MOUTH TWICE A DAY TAKE ONE CAPSULE BY MOUTH TWICE A DAY SOLD: 07/08/2020 [facility] 10 mg 06/18/2020 12:00:00 AM EDT tablet 90 TAKE ONE TABLET BY MOUTH EVERY DAY TAKE ONE TABLET BY MOUTH EVERY DAY SOLD: 09/12/2020 [facility] 4 mg 06/18/2020 12:00:00 AM EDT tablet 15 TAKE ONE TABLET BY MOUTH EVERY 6 TO 8 HOURS NEEDED TAKE ONE TABLET BY MOUTH EVERY 6 TO 8 HOURS NEEDED SOLD: 06/19/2020 [facility] 10 mg 06/18/2020 12:00:00 AM EDT tablet 90 TAKE ONE TABLET BY MOUTH EVERY DAY TAKE ONE TABLET BY MOUTH EVERY DAY SOLD: 06/19/2020 [facility] 4 mg 06/18/2020 12:00:00 AM EDT tablet 15 TAKE ONE TABLET BY MOUTH EVERY 6 TO 8 HOURS NEEDED TAKE ONE TABLET BY MOUTH EVERY 6 TO 8 HOURS NEEDED SOLD: 09/12/2020 [facility] Famotidine 40 MG Oral Tablet Famotidine 40 MG Oral Tab let (PEPCID) Famotidine 40 MG Oral Tablet (PEPCID) 06/03/2020 12:00:00 AM EDT 40 mg Oral active Take 40 mg by mouth every evening [facility] Famotidine 40 MG Oral Tablet famotidine (PEPCID) 40 MG tablet famotidine (PEPCID) 40 MG tablet 06/03/2020 12:00:00 AM EDT 40 mg Oral active Take 40 mg by mouth [facility] clopidogrel 75 MG Oral Tablet Clopidogrel Bisulfate 75 MG Oral Tablet (PLAVIX) Clopidogrel Bisulfate 75 MG Oral Tablet (PLAVIX) 06/02/2020 12:00:00 AM EDT 75 mg Oral active Take 75 mg by mouth [facility] topiramate 100 MG Oral Tablet Topiramate 100 MG Oral T ablet (TOPAMAX) Topiramate 100 MG Oral Tablet (TOPAMAX) 06/02/2020 12:00:00 AM EDT 100 mg Ora l active Take 100 mg by mouth Two Times D [facility] clopidogrel 75 MG Oral Tablet clopidogrel (PLAVIX) 75 MG tablet clopidogrel (PLAVIX) 75 MG tablet 06/02/2020 12:00:00 AM EDT 75 mg Oral active Take 75 mg by mouth [facility] topiramate 100 MG Oral Tablet topiramate (TOPAMAX) 100 MG tablet topiramate (TOPAMAX) 100 MG tablet 06/02/2020 12:00:00 AM EDT 100 mg Oral active Take 100 mg by mouth [facility] Albuterol Sulfate HFA 108 (90 Base) MCG/ ACT Inhalation Aerosol Solution (PROVENTIL HFA) 3920-6324-15 06/01/2020 12:00:00 AM EDT active INHALE TWO PUFFS BY MOUTH FOUR TIMES A DAY NEEDED [facility] 30 ACTUAT umeclidinium 0.0625 MG/ACTUAT / vilanterol 0.025 MG/ACTUAT Dry Powder Inhaler [Anoro] Anoro Ellipta 62.5-25 MCG/INH Inhalation Aerosol Powder Breath Activated Anoro Ellipta 62.5-25 MCG/INH Inhalation Aerosol Powder Breath Activated 06/01/2020 12:00:00 AM EDT active INHALE ONE PUFF BY MOUTH EVERY DAY [facility] 30 ACTUAT fluticasone furoate 0.2 MG/ACT UAT Dry Powder Inhaler [Arnuity] Arnuity Ellipta 200 MCG/ACT Inhalation Aerosol Powder Breath Activated Arnuity Ellipta 200 MCG/ACT Inhalation Aerosol Powder Breath Activated 05/30/2020 12:00:00 AM EDT 1 {puff} Inhalation active Inhale 1 pu ff into the lungs daily [facility] 200 mcg/actuation 05/30/2020 12:00:00 AM EDT blister with de vice 30 INHALE 1 PUFF BY MOUTH ONCE DAILY INHALE 1 PUFF BY MOUTH ONCE DAILY SOLD: 08/19/2020 [facility] 30 ACTUAT fluticasone furoate 0.2 MG/ACTUAT Dry Powder Inhaler [Arnuity] Arnuity Ellipta 05/30/2020 12:00:00 AM EDT RESPIRATORY active MEDENT ([facility], ) 200 mcg/actuation 05/30/2020 12:00:00 AM EDT blister with de vice 30 INHALE 1 PUFF BY MOUTH ONCE DAILY INHALE 1 PUFF BY MOUTH ONCE DAILY SOLD: 06/03/2020 [facility] Paroxetine Hydrochloride 30 MG Oral Tablet PAROXETINE HCL 05/22/2020 12:00:00 AM EDT tablet 90 TAKE ONE TABLET BY MOUTH EDUIN RY MORNING TAKE ONE TABLET BY MOUTH EVERY MORNING SOLD: 08/26/2020 [facility] Ondansetron 4 MG Oral Tablet Ondansetron HCl 4 MG Oral Tablet (ZOFRAN) Ondansetron HCl 4 MG Oral Tablet (ZOFRAN) 05/22/2020 12:00:00 AM EDT active TAKE ONE TABLET BY MOUTH EVERY 6 TO 8 HOURS NEEDED FOR 5 DAYS [facility] PARoxetine HCl 30 MG Oral Tablet (PAXIL) [address]-7 05/22/2020 12:00:00 AM EDT 30 mg Oral active Take 30 mg by staci th every morning [facility] 4 mg 05/22/2020 12:00:00 AM EDT tablet 15 TAKE ONE TABLET BY MOUTH EVERY 6 TO 8 HOURS NEEDED FOR 5 DAYS TAKE ONE TABLET BY MOUTH EVERY 6 TO 8 HO URS NEEDED FOR 5 DAYS SOLD: 05/24/2020 [facility] Ondansetron 4 MG Oral Tablet ondansetron (ZOFRAN) 4 MG tablet ondansetron (ZOFRAN) 4 MG tablet 05/22/2020 12:00:00 AM EDT active TAKE ONE TABLET BY MOUTH EVERY 6 TO 8 HOURS NEEDED FOR 5 DAYS [facility] Paroxetine Hydrochloride 30 MG Oral Tablet PAROXETINE HCL 05/22/2020 12:00:00 AM EDT tablet 90 TAKE ONE TABLET BY MOUTH EDUIN RY MORNING TAKE ONE TABLET BY MOUTH EVERY MORNING SOLD: 05/24/2020 [facility] Famotidine 40 MG Oral Tablet FAMOTIDINE 05/12/2020 12:00:00 AM EDT tab let 30 TAKE ONE TABLET BY MOUTH EVERY EVENING TAKE ONE TABLET BY MOUTH EVERY EVENING SOLD: 05/16/2020 [facility] Famotidine 40 MG Oral Tablet FAMOTIDINE 05/12/2020 12:00:00 AM EDT tab let 30 TAKE ONE TABLET BY MOUTH EVERY EVENING TAKE ONE TABLET BY MOUTH EVERY EVENING SOLD: 07/16/2020 [facility] Famotidine 40 MG Oral Tablet FAMOTIDINE 05/12/2020 12:00:00 AM EDT tab let 30 TAKE ONE TABLET BY MOUTH EVERY EVENING TAKE ONE TABLET BY MOUTH EVERY EVENING SOLD: 06/03/2020 [facility] Famotidine 40 MG Oral Tablet Famotidine 05/11/2020 12:00:00 AM EDT ORAL active MEDENT ([facility], ) POLYETHYLENE GLYCOL 3350 142 MG/ML Oral Solution [Miralax] M iralax 05/11/2020 12:00:00 AM EDT active M EDENT ([facility], ) 4 mg 04/26/2020 12:00:00 AM EST tablet 15 TAKE ONE TABLET BY MOUTH EVERY 6 TO 8 HOURS NEEDED TAKE ONE TABLET BY MOUTH EVERY 6 TO 8 HOURS NEEDED SOLD: 04/26/2020 [facility] POLYETHYLENE GLYCOL 3350 142 MG/ML Oral Solution [Miralax] M iralax 04/16/2020 12:00:00 AM EST completed MEDENT ([facility], ) gabapentin 400 MG Oral Capsule Gabapentin 400 MG Oral Capsule (NEURONTIN) Gabapentin 400 MG Oral Capsule (NEURONTIN) 04/12/2020 12:00:00 AM EST 400 mg Oral active Take 400 mg by mouth Two Times Daily [facility] 4 mg 03/21/2020 12:00:00 AM EST tablet 15 TAKE ONE TABLET BY MOUTH EVERY 6-8 HOURS NEEDED TAKE ONE TABLET BY MOUTH EVERY 6-8 HOURS NEEDED TAN [facility] Ondansetron 4 MG Oral Tablet Ondansetron HCl 4 MG Ondansetro n HCl 4 MG 03/20/2020 12:00:00 AM EST 1.0 {tablet} active Ondansetron HCl 4 MG eCW1 ([facility]) Ondansetron 4 MG Oral Tablet Ondansetron HCl 4 MG Ondansetro n HCl 4 MG 03/20/2020 12:00:00 AM EST 1.0 {tablet} active Ondansetron HCl 4 MG eCW1 ([facility]) Ondansetron 4 MG Oral Tablet Ondansetron HCl 4 MG Ondansetro n HCl 4 MG 03/20/2020 12:00:00 AM EST 1.0 {tablet} active Ondansetron HCl 4 MG eCW1 ([facility]) Ondansetron 4 MG Oral Tablet Ondansetron HCl 4 MG Ondansetro n HCl 4 MG 03/20/2020 12:00:00 AM EST 1.0 {tablet} active Ondansetron HCl 4 MG eCW1 ([facility]) Ondansetron 4 MG Oral Tablet Ondansetron HCl 4 MG Ondansetro n HCl 4 MG 03/20/2020 12:00:00 AM EST 1.0 {tablet} active Ondansetron HCl 4 MG eCW1 ([facility]) Ondansetron 4 MG Oral Tablet Ondansetron HCl 4 MG Ondansetro n HCl 4 MG 03/20/2020 12:00:00 AM EST 1.0 {tablet} active Ondansetron HCl 4 MG eCW1 ([facility]) Ondansetron 4 MG Oral Tablet Ondansetron HCl 4 MG Ondansetro n HCl 4 MG 03/20/2020 12:00:00 AM EST 1.0 {tablet} active Ondansetron HCl 4 MG eCW1 ([facility]) Ondansetron 4 MG Oral Tablet Ondansetron HCl 4 MG Ondansetro n HCl 4 MG 03/20/2020 12:00:00 AM EST 1.0 {tablet} active Ondansetron HCl 4 MG eCW1 ([facility]) Ondansetron 4 MG Oral Tablet Ondansetron HCl 4 MG Ondansetro n HCl 4 MG 03/20/2020 12:00:00 AM EST 1.0 {tablet} active Ondansetron HCl 4 MG eCW1 ([facility]) Ondansetron 4 MG Oral Tablet Ondansetron HCl 4 MG Ondansetro n HCl 4 MG 03/20/2020 12:00:00 AM EST 1.0 {tablet} active Ondansetron HCl 4 MG eCW1 ([facility]) Ondansetron 4 MG Oral Tablet Ondansetron HCl 4 MG Ondansetro n HCl 4 MG 03/20/2020 12:00:00 AM EST 1.0 {tablet} active Ondansetron HCl 4 MG eCW1 ([facility]) Ondansetron 4 MG Oral Tablet Ondansetron HCl 4 MG Ondansetro n HCl 4 MG 03/20/2020 12:00:00 AM EST 1.0 {tablet} active Ondansetron HCl 4 MG eCW1 ([facility]) Ondansetron 4 MG Oral Tablet Ondansetron HCl 4 MG Ondansetro n HCl 4 MG 03/20/2020 12:00:00 AM EST 1.0 {tablet} active Ondansetron HCl 4 MG eCW1 ([facility]) Ondansetron 4 MG Oral Tablet Ondansetron HCl 4 MG Ondansetro n HCl 4 MG 03/20/2020 12:00:00 AM EST 1.0 {tablet} active Ondansetron HCl 4 MG eCW1 ([facility]) Ondansetron 4 MG Oral Tablet Ondansetron HCl 4 MG Ondansetro n HCl 4 MG 03/20/2020 12:00:00 AM EST 1.0 {tablet} active Ondansetron HCl 4 MG eCW1 ([facility]) Ondansetron 4 MG Oral Tablet Ondansetron HCl 4 MG Ondansetro n HCl 4 MG 03/20/2020 12:00:00 AM EST 1.0 {tablet} active Ondansetron HCl 4 MG eCW1 ([facility]) Ondansetron 4 MG Oral Tablet Ondansetron HCl 4 MG Ondansetro n HCl 4 MG 03/20/2020 12:00:00 AM EST 1.0 {tablet} active Ondansetron HCl 4 MG eCW1 ([facility]) Ondansetron 4 MG Oral Tablet Ondansetron HCl 4 MG Ondansetro n HCl 4 MG 03/20/2020 12:00:00 AM EST 1.0 {tablet} active Ondansetron HCl 4 MG eCW1 ([facility]) Ondansetron 4 MG Oral Tablet Ondansetron HCl 4 MG Ondansetro n HCl 4 MG 03/20/2020 12:00:00 AM EST 1.0 {tablet} active Ondansetron HCl 4 MG eCW1 ([facility]) Ondansetron 4 MG Oral Tablet Ondansetron HCl 4 MG Ondansetro n HCl 4 MG 03/20/2020 12:00:00 AM EST 1.0 {tablet} active Ondansetron HCl 4 MG eCW1 ([facility]) Ondansetron 4 MG Oral Tablet Ondansetron HCl 4 MG Ondansetro n HCl 4 MG 03/20/2020 12:00:00 AM EST 1.0 {tablet} active Ondansetron HCl 4 MG eCW1 ([facility]) Ondansetron 4 MG Oral Tablet Ondansetron HCl 4 MG Ondansetro n HCl 4 MG 03/20/2020 12:00:00 AM EST 1.0 {tablet} active Ondansetron HCl 4 MG eCW1 ([facility]) Ondansetron 4 MG Oral Tablet Ondansetron HCl 4 MG Ondansetro n HCl 4 MG 03/20/2020 12:00:00 AM EST 1.0 {tablet} active Ondansetron HCl 4 MG eCW1 ([facility]) 4 mg 03/16/2020 12:00:00 AM EST tablet 5 TAKE ONE TABLET BY MOUTH EVERY 6 TO 8 HOURS NEEDED FOR NAUSEA / VOMITING TAKE ONE TABLET BY MOUTH EVERY 6 TO 8 HOURS NEEDED FOR NAUSEA / VOMITING SOLD: 03/16/2020 [facility] atorvastatin 80 MG Oral Tablet Atorvastatin Calcium 80 MG Oral Tablet (LIPITOR) Atorvastatin Calcium 80 MG Oral Tablet (LIPITOR) 03/15/2020 12:00:00 AM EST 80 mg Oral active Take 80 mg by mouth [facility] atorvastatin 80 MG Oral Tablet atorvastatin (LIPITOR) 80 MG tablet atorvastatin (LIPITOR) 80 MG tablet 03/15/2020 12:00:00 AM EST 80 mg Oral active Take 80 mg by mouth daily [facility] tizanidine 4 MG Oral Tablet TIZANIDINE HCL 03/07/2020 12:00:00 AM EST tablet 90 TAKE ONE TABLET BY MOUTH EVERY 8 HOURS NEEDED TAKE ONE TABLET BY MOUTH EVERY 8 HOURS NEEDED SOLD: 03/07/2020 [facility] tizanidine 4 MG Oral Tablet tiZANidine HCl 4 MG Oral T ablet (ZANAFLEX) tiZANidine HCl 4 MG Oral Tablet (ZANAFLEX) 03/07/2020 12:00:00 AM EST 4 mg Oral active Take 4 mg by mouth e very 8 (eight) hours as needed [facility] 100 mg 03/07/2020 12:00:00 AM EST tablet 180 TAKE ONE TABLET BY MOUTH TWO TIMES A DAY TAKE ONE TABLET BY MOUTH TWO TIMES A DAY SOLD: 03/07/2020 [facility] 100 mg 03/07/2020 12:00:00 AM EST tablet 180 TAKE ONE TABLET BY MOUTH TWO TIMES A DAY TAKE ONE TABLET BY MOUTH TWO TIMES A DAY SOLD: 06/03/2020 [facility] tizanidine 4 MG Oral Tablet tiZANidine (ZANAFLEX) 4 MG tablet tiZANidine (ZANAFLEX) 4 MG tablet 03/07/2020 12:00:00 AM EST 4 mg Oral active Take 4 mg by mouth as needed [facility] ezetimibe 10 MG Oral Tablet Ezetimibe 10 MG Oral Table t (ZETIA) Ezetimibe 10 MG Oral Tablet (ZETIA) 02/22/2020 12:00:00 AM EST 10 mg Oral active Take 10 mg by mouth daily [facility] ezetimibe 10 MG Oral Tablet ezetimibe (ZETIA) 10 MG ta blet ezetimibe (ZETIA) 10 MG tablet 02/22/2020 12:00:00 AM EST 10 mg Oral active Take 10 mg by mouth [facility] Ciprofloxacin 500 MG Oral Tablet Ciprofloxacin HCl 500 MG Ciprofloxacin HCl 500 MG 12/29/2019 12:00:00 AM EST 1.0 {tablet} activ e Ciprofloxacin HCl 500 MG eCW1 ([facility]) Ciprofloxacin 500 MG Oral Tablet Ciprofloxacin HCl 500 MG Ciprofloxacin HCl 500 MG 12/29/2019 12:00:00 AM EST 1.0 {tablet} activ e Ciprofloxacin HCl 500 MG eCW1 ([facility]) Ciprofloxacin 500 MG Oral Tablet Ciprofloxacin HCl 500 MG Ciprofloxacin HCl 500 MG 12/29/2019 12:00:00 AM EST 1.0 {tablet} suspe nded Ciprofloxacin HCl 500 MG eCW1 ([facility]) Ciprofloxacin 500 MG Oral Tablet Ciprofloxacin HCl 500 MG Ciprofloxacin HCl 500 MG 12/29/2019 12:00:00 AM EST 1.0 {tablet} activ e Ciprofloxacin HCl 500 MG eCW1 ([facility]) Ciprofloxacin 500 MG Oral Tablet Ciprofloxacin HCl 500 MG Ciprofloxacin HCl 500 MG 12/29/2019 12:00:00 AM EST 1.0 {tablet} activ e Ciprofloxacin HCl 500 MG eCW1 ([facility]) Ciprofloxacin 500 MG Oral Tablet Ciprofloxacin HCl 500 MG Ciprofloxacin HCl 500 MG 12/29/2019 12:00:00 AM EST 1.0 {tablet} activ e Ciprofloxacin HCl 500 MG eCW1 ([facility]) Ciprofloxacin 500 MG Oral Tablet Ciprofloxacin HCl 500 MG Ciprofloxacin HCl 500 MG 12/29/2019 12:00:00 AM EST 1.0 {tablet} activ e Ciprofloxacin HCl 500 MG eCW1 ([facility]) Ciprofloxacin 500 MG Oral Tablet Ciprofloxacin HCl 500 MG Ciprofloxacin HCl 500 MG 12/29/2019 12:00:00 AM EST 1.0 {tablet} activ e Ciprofloxacin HCl 500 MG eCW1 ([facility]) Ciprofloxacin 500 MG Oral Tablet Ciprofloxacin HCl 500 MG Ciprofloxacin HCl 500 MG 12/29/2019 12:00:00 AM EST 1.0 {tablet} activ e Ciprofloxacin HCl 500 MG eCW1 ([facility]) Ciprofloxacin 500 MG Oral Tablet Ciprofloxacin HCl 500 MG Ciprofloxacin HCl 500 MG 12/29/2019 12:00:00 AM EST 1.0 {tablet} activ e Ciprofloxacin HCl 500 MG eCW1 ([facility]) Ciprofloxacin 500 MG Oral Tablet Ciprofloxacin HCl 500 MG Ciprofloxacin HCl 500 MG 12/29/2019 12:00:00 AM EST 1.0 {tablet} activ e Ciprofloxacin HCl 500 MG eCW1 ([facility]) Ciprofloxacin 500 MG Oral Tablet Ciprofloxacin HCl 500 MG Ciprofloxacin HCl 500 MG 12/29/2019 12:00:00 AM EST 1.0 {tablet} suspe nded Ciprofloxacin HCl 500 MG eCW1 ([facility]) Ciprofloxacin 500 MG Oral Tablet Ciprofloxacin HCl 500 MG Ciprofloxacin HCl 500 MG 12/29/2019 12:00:00 AM EST 1.0 {tablet} activ e Ciprofloxacin HCl 500 MG eCW1 ([facility]) Ciprofloxacin 500 MG Oral Tablet Ciprofloxacin HCl 500 MG Ciprofloxacin HCl 500 MG 12/29/2019 12:00:00 AM EST 1.0 {tablet} activ e Ciprofloxacin HCl 500 MG eCW1 ([facility]) 500 mg 12/29/2019 12:00:00 AM EST tablet 10 TAKE ONE TABLET BY MOUTH EVERY 12 HOURS FOR 5 DAYS TAKE ONE TABLET BY MOUTH EVERY 12 HOURS FOR 5 DAYS [facility] Ciprofloxacin 500 MG Oral Tablet Ciprofloxacin HCl 500 MG Ciprofloxacin HCl 500 MG 12/29/2019 12:00:00 AM EST 1.0 {tablet} activ e Ciprofloxacin HCl 500 MG eCW1 ([facility]) Ciprofloxacin 500 MG Oral Tablet Ciprofloxacin HCl 500 MG Ciprofloxacin HCl 500 MG 12/29/2019 12:00:00 AM EST 1.0 {tablet} activ e Ciprofloxacin HCl 500 MG eCW1 ([facility]) Ciprofloxacin 500 MG Oral Tablet Ciprofloxacin HCl 500 MG Ciprofloxacin HCl 500 MG 12/29/2019 12:00:00 AM EST 1.0 {tablet} activ e Ciprofloxacin HCl 500 MG eCW1 ([facility]) Ciprofloxacin 500 MG Oral Tablet Ciprofloxacin HCl 500 MG Ciprofloxacin HCl 500 MG 12/29/2019 12:00:00 AM EST 1.0 {tablet} activ e Ciprofloxacin HCl 500 MG eCW1 ([facility]) Ciprofloxacin 500 MG Oral Tablet Ciprofloxacin HCl 500 MG Ciprofloxacin HCl 500 MG 12/29/2019 12:00:00 AM EST 1.0 {tablet} suspe nded Ciprofloxacin HCl 500 MG eCW1 ([facility]) Ciprofloxacin 500 MG Oral Tablet Ciprofloxacin HCl 500 MG Ciprofloxacin HCl 500 MG 12/29/2019 12:00:00 AM EST 1.0 {tablet} activ e Ciprofloxacin HCl 500 MG eCW1 ([facility]) Ciprofloxacin 500 MG Oral Tablet Ciprofloxacin HCl 500 MG Ciprofloxacin HCl 500 MG 12/29/2019 12:00:00 AM EST 1.0 {tablet} activ e Ciprofloxacin HCl 500 MG eCW1 ([facility]) Ciprofloxacin 500 MG Oral Tablet Ciprofloxacin HCl 500 MG Ciprofloxacin HCl 500 MG 12/29/2019 12:00:00 AM EST 1.0 {tablet} suspe nded Ciprofloxacin HCl 500 MG eCW1 ([facility]) Ciprofloxacin 500 MG Oral Tablet Ciprofloxacin HCl 500 MG Ciprofloxacin HCl 500 MG 12/29/2019 12:00:00 AM EST 1.0 {tablet} activ e Ciprofloxacin HCl 500 MG eCW1 ([facility]) Ciprofloxacin 500 MG Oral Tablet Ciprofloxacin HCl 500 MG Ciprofloxacin HCl 500 MG 12/29/2019 12:00:00 AM EST 1.0 {tablet} activ e Ciprofloxacin HCl 500 MG eCW1 ([facility]) Ciprofloxacin 500 MG Oral Tablet Ciprofloxacin HCl 500 MG Ciprofloxacin HCl 500 MG 12/29/2019 12:00:00 AM EST 1.0 {tablet} activ e Ciprofloxacin HCl 500 MG eCW1 ([facility]) Ciprofloxacin 500 MG Oral Tablet Ciprofloxacin HCl 500 MG Ciprofloxacin HCl 500 MG 12/29/2019 12:00:00 AM EST 1.0 {tablet} activ e Ciprofloxacin HCl 500 MG eCW1 ([facility]) Ciprofloxacin 500 MG Oral Tablet Ciprofloxacin HCl 500 MG Ciprofloxacin HCl 500 MG 12/29/2019 12:00:00 AM EST 1.0 {tablet} activ e Ciprofloxacin HCl 500 MG eCW1 ([facility]) Ciprofloxacin 500 MG Oral Tablet Ciprofloxacin HCl 500 MG Ciprofloxacin HCl 500 MG 12/29/2019 12:00:00 AM EST 1.0 {tablet} activ e Ciprofloxacin HCl 500 MG eCW1 ([facility]) tizanidine 4 MG Oral Tablet TIZANIDINE HCL 12/28/2019 12:00:[address] tablet 120 TAKE ONE TABLET BY MOUTH EVERY 6 HOURS A S NEEDED TAKE ONE TABLET BY MOUTH EVERY 6 HOURS NEEDED SOLD: 12/30/2019 [facility] tizanidine 4 MG Oral Tablet tiZANidine HCl 4 MG tiZANidine H Cl 4 MG 12/13/2019 12:00:00 AM EDT 2.0 {tablets} active t iZANidine HCl 4 MG eCW1 ([facility]) tizanidine 4 MG Oral Tablet tiZANidine HCl 4 MG tiZANidine H Cl 4 MG 12/13/2019 12:00:00 AM EDT 2.0 {tablets} suspended tiZANidine HCl 4 MG eCW1 ([facility]) Sulfamethoxazole 800 MG / Trimethoprim 1 60 MG Oral Tablet [Bactrim] Bactrim DS 800-160 MG Bactrim DS 800-160 MG 12/13/2019 12:00:00 AM EDT 1.0 {table t} suspended Bactrim DS 800-160 MG eCW1 ( [facility]) tizanidine 4 MG Oral Tablet Tizanidine HCl 4 MG Tizanidine H Cl 4 MG 12/13/2019 12:00:00 AM EDT 2.0 {tablets} active T izanidine HCl 4 MG eCW1 ([facility]) tizanidine 4 MG Oral Tablet Tizanidine HCl 4 MG Tizanidine H Cl 4 MG 12/13/2019 12:00:00 AM EDT 2.0 {tablets} active T izanidine HCl 4 MG eCW1 ([facility]) Sulfamethoxazole 800 MG / Trimethoprim 160 MG Oral Tab let 800-160 mg SULFAMETHOXAZOLE/TRIMETHOPRIM 12/13/2019 12:00:00 AM EDT tablet 6 TAKE ONE TABLET BY MOUTH TWO TIMES A DAY FOR 3 DAYS TAKE ONE TABLET BY MOUTH TWO TIMES A DAY FOR 3 DAYS SOLD: 12/13/2019 [facility] tizanidine 4 MG Oral Tablet Tizanidine HCl 4 MG Tizanidine H Cl 4 MG 12/13/2019 12:00:00 AM EDT 2.0 {tablets} active T izanidine HCl 4 MG eCW1 ([facility]) Sulfamethoxazole 800 MG / Trimethoprim 1 60 MG Oral Tablet [Bactrim] Bactrim DS 800-160 MG Bactrim DS 800-160 MG 12/13/2019 12:00:00 AM EDT 1.0 {table t} active Bactrim DS 800-160 MG eCW1 ( [facility]) tizanidine 4 MG Oral Tablet Tizanidine HCl 4 MG Tizanidine H Cl 4 MG 12/13/2019 12:00:00 AM EDT 2.0 {tablets} active T izanidine HCl 4 MG eCW1 ([facility]) Sulfamethoxazole 800 MG / Trimethoprim 1 60 MG Oral Tablet [Bactrim] Bactrim DS 800-160 MG Bactrim DS 800-160 MG 12/13/2019 12:00:00 AM EDT 1.0 {table t} suspended Bactrim DS 800-160 MG eCW1 ( [facility]) tizanidine 4 MG Oral Tablet tiZANidine HCl 4 MG tiZANidine H Cl 4 MG 12/13/2019 12:00:00 AM EDT 2.0 {tablets} active t iZANidine HCl 4 MG eCW1 ([facility]) Sulfamethoxazole 800 MG / Trimethoprim 1 60 MG Oral Tablet [Bactrim] Bactrim DS 800-160 MG Bactrim DS 800-160 MG 12/13/2019 12:00:00 AM EDT 1.0 {table t} suspended Bactrim DS 800-160 MG eCW1 ( [facility]) tizanidine 4 MG Oral Tablet tiZANidine HCl 4 MG tiZANidine H Cl 4 MG 12/13/2019 12:00:00 AM EDT 2.0 {tablets} active t iZANidine HCl 4 MG eCW1 ([facility]) tizanidine 4 MG Oral Tablet tiZANidine HCl 4 MG tiZANidine H Cl 4 MG 12/13/2019 12:00:00 AM EDT 2.0 {tablets} active t iZANidine HCl 4 MG eCW1 ([facility]) tizanidine 4 MG Oral Tablet tiZANidine HCl 4 MG tiZANidine H Cl 4 MG 12/13/2019 12:00:00 AM EDT 2.0 {tablets} suspended tiZANidine HCl 4 MG eCW1 ([facility]) tizanidine 4 MG Oral Tablet tiZANidine HCl 4 MG tiZANidine H Cl 4 MG 12/13/2019 12:00:00 AM EDT 2.0 {tablets} active t iZANidine HCl 4 MG eCW1 ([facility]) tizanidine 4 MG Oral Tablet tiZANidine HCl 4 MG tiZANidine H Cl 4 MG 12/13/2019 12:00:00 AM EDT 2.0 {tablets} active t iZANidine HCl 4 MG eCW1 ([facility]) tizanidine 4 MG Oral Tablet Tizanidine HCl 4 MG Tizanidine H Cl 4 MG 12/13/2019 12:00:00 AM EDT 2.0 {tablets} active T izanidine HCl 4 MG eCW1 ([facility]) Sulfamethoxazole 800 MG / Trimethoprim 1 60 MG Oral Tablet [Bactrim] Bactrim DS 800-160 MG Bactrim DS 800-160 MG 12/13/2019 12:00:00 AM EDT 1.0 {table t} suspended Bactrim DS 800-160 MG eCW1 ( [facility]) tizanidine 4 MG Oral Tablet Tizanidine HCl 4 MG Tizanidine H Cl 4 MG 12/13/2019 12:00:00 AM EDT 2.0 {tablets} active T izanidine HCl 4 MG eCW1 ([facility]) tizanidine 4 MG Oral Tablet tiZANidine HCl 4 MG tiZANidine H Cl 4 MG 12/13/2019 12:00:00 AM EDT 2.0 {tablets} active t iZANidine HCl 4 MG eCW1 ([facility]) tizanidine 4 MG Oral Tablet Tizanidine HCl 4 MG Tizanidine H Cl 4 MG 12/13/2019 12:00:00 AM EDT 2.0 {tablets} active T izanidine HCl 4 MG eCW1 ([facility]) Sulfamethoxazole 800 MG / Trimethoprim 1 60 MG Oral Tablet [Bactrim] Bactrim DS 800-160 MG Bactrim DS 800-160 MG 12/13/2019 12:00:00 AM EDT 1.0 {table t} suspended Bactrim DS 800-160 MG eCW1 ( [facility]) Sulfamethoxazole 800 MG / Trimethoprim 1 60 MG Oral Tablet [Bactrim] Bactrim DS 800-160 MG Bactrim DS 800-160 MG 12/13/2019 12:00:00 AM EDT 1.0 {table t} active Bactrim DS 800-160 MG eCW1 ( [facility]) tizanidine 4 MG Oral Tablet tiZANidine HCl 4 MG tiZANidine H Cl 4 MG 12/13/2019 12:00:00 AM EDT 2.0 {tablets} active t iZANidine HCl 4 MG eCW1 ([facility]) tizanidine 4 MG Oral Tablet Tizanidine HCl 4 MG Tizanidine H Cl 4 MG 12/13/2019 12:00:00 AM EDT 2.0 {tablets} active T izanidine HCl 4 MG eCW1 ([facility]) Sulfamethoxazole 800 MG / Trimethoprim 1 60 MG Oral Tablet [Bactrim] Bactrim DS 800-160 MG Bactrim DS 800-160 MG 12/13/2019 12:00:00 AM EDT 1.0 {table t} suspended Bactrim DS 800-160 MG eCW1 ( [facility]) tizanidine 4 MG Oral Tablet Tizanidine HCl 4 MG Tizanidine H Cl 4 MG 12/13/2019 12:00:00 AM EDT 2.0 {tablets} active T izanidine HCl 4 MG eCW1 ([facility]) Sulfamethoxazole 800 MG / Trimethoprim 1 60 MG Oral Tablet [Bactrim] Bactrim DS 800-160 MG Bactrim DS 800-160 MG 12/13/2019 12:00:00 AM EDT 1.0 {table t} suspended Bactrim DS 800-160 MG eCW1 ( [facility]) tizanidine 4 MG Oral Tablet Tizanidine HCl 4 MG Tizanidine H Cl 4 MG 12/13/2019 12:00:00 AM EDT 2.0 {tablets} active T izanidine HCl 4 MG eCW1 ([facility]) tizanidine 4 MG Oral Tablet Tizanidine HCl 4 MG Tizanidine H Cl 4 MG 12/13/2019 12:00:00 AM EDT 2.0 {tablets} active T izanidine HCl 4 MG eCW1 ([facility]) tizanidine 4 MG Oral Tablet Tizanidine HCl 4 MG Tizanidine H Cl 4 MG 12/13/2019 12:00:00 AM EDT 2.0 {tablets} active T izanidine HCl 4 MG eCW1 ([facility]) Sulfamethoxazole 800 MG / Trimethoprim 1 60 MG Oral Tablet [Bactrim] Bactrim DS 800-160 MG Bactrim DS 800-160 MG 12/13/2019 12:00:00 AM EDT 1.0 {table t} suspended Bactrim DS 800-160 MG eCW1 ( [facility]) Sulfamethoxazole 800 MG / Trimethoprim 1 60 MG Oral Tablet [Bactrim] Bactrim DS 800-160 MG Bactrim DS 800-160 MG 12/13/2019 12:00:00 AM EDT 1.0 {table t} suspended Bactrim DS 800-160 MG eCW1 ( [facility]) tizanidine 4 MG Oral Tablet tiZANidine HCl 4 MG tiZANidine H Cl 4 MG 12/13/2019 12:00:00 AM EDT 2.0 {tablets} suspended tiZANidine HCl 4 MG eCW1 ([facility]) 80 mg 12/13/2019 12:00:00 AM EDT tablet 90 TAKE ONE TABLET BY MOUTH EVERY DAY TAKE ONE TABLET BY MOUTH EVERY DAY SOLD: 09/12/2020 [facility] tizanidine 4 MG Oral Tablet tiZANidine HCl 4 MG tiZANidine H Cl 4 MG 12/13/2019 12:00:00 AM EDT 2.0 {tablets} active t iZANidine HCl 4 MG eCW1 ([facility]) Sulfamethoxazole 800 MG / Trimethoprim 1 60 MG Oral Tablet [Bactrim] Bactrim DS 800-160 MG Bactrim DS 800-160 MG 12/13/2019 12:00:00 AM EDT 1.0 {table t} active Bactrim DS 800-160 MG eCW1 ( [facility]) Sulfamethoxazole 800 MG / Trimethoprim 1 60 MG Oral Tablet [Bactrim] Bactrim DS 800-160 MG Bactrim DS 800-160 MG 12/13/2019 12:00:00 AM EDT 1.0 {table t} suspended Bactrim DS 800-160 MG eCW1 ( [facility]) tizanidine 4 MG Oral Tablet Tizanidine HCl 4 MG Tizanidine H Cl 4 MG 12/13/2019 12:00:00 AM EDT 2.0 {tablets} active T izanidine HCl 4 MG eCW1 ([facility]) Sulfamethoxazole 800 MG / Trimethoprim 1 60 MG Oral Tablet [Bactrim] Bactrim DS 800-160 MG Bactrim DS 800-160 MG 12/13/2019 12:00:00 AM EDT 1.0 {table t} suspended Bactrim DS 800-160 MG eCW1 ( [facility]) Sulfamethoxazole 800 MG / Trimethoprim 1 60 MG Oral Tablet [Bactrim] Bactrim DS 800-160 MG Bactrim DS 800-160 MG 12/13/2019 12:00:00 AM EDT 1.0 {table t} suspended Bactrim DS 800-160 MG eCW1 ( [facility]) Sulfamethoxazole 800 MG / Trimethoprim 1 60 MG Oral Tablet [Bactrim] Bactrim DS 800-160 MG Bactrim DS 800-160 MG 12/13/2019 12:00:00 AM EDT 1.0 {table t} suspended Bactrim DS 800-160 MG eCW1 ( [facility]) Sulfamethoxazole 800 MG / Trimethoprim 1 60 MG Oral Tablet [Bactrim] Bactrim DS 800-160 MG Bactrim DS 800-160 MG 12/13/2019 12:00:00 AM EDT 1.0 {table t} active Bactrim DS 800-160 MG eCW1 ( [facility]) 80 mg 12/13/2019 12:00:00 AM EDT tablet 90 TAKE ONE TABLET BY MOUTH EVERY DAY TAKE ONE TABLET BY MOUTH EVERY DAY SOLD: 06/19/2020 [facility] tizanidine 4 MG Oral Tablet [...] izanidine HCl 4 MG eCW1 ([facility]) tizanidine 4 MG Oral Tablet tiZANidine HCl 4 MG tiZANidine H Cl 4 MG 12/13/2019 12:00:00 AM EDT 2.0 {tablets} suspended tiZANidine HCl 4 MG eCW1 ([facility]) Sulfamethoxazole 800 MG / Trimethoprim 1 60 MG Oral Tablet [Bactrim] Bactrim DS 800-160 MG Bactrim DS 800-160 MG 12/13/2019 12:00:00 AM EDT 1.0 {table t} suspended Bactrim DS 800-160 MG eCW1 ( [facility]) Sulfamethoxazole 800 MG / Trimethoprim 1 60 MG Oral Tablet [Bactrim] Bactrim DS 800-160 MG Bactrim DS 800-160 MG 12/13/2019 12:00:00 AM EDT 1.0 {table t} suspended Bactrim DS 800-160 MG eCW1 ( [facility]) Sulfamethoxazole 800 MG / Trimethoprim 1 60 MG Oral Tablet [Bactrim] Bactrim DS 800-160 MG Bactrim DS 800-160 MG 12/13/2019 12:00:00 AM EDT 1.0 {table t} suspended Bactrim DS 800-160 MG eCW1 ( [facility]) Sulfamethoxazole 800 MG / Trimethoprim 1 60 MG Oral Tablet [Bactrim] Bactrim DS 800-160 MG Bactrim DS 800-160 MG 12/13/2019 12:00:00 AM EDT 1.0 {table t} active Bactrim DS 800-160 MG eCW1 ( [facility]) Sulfamethoxazole 800 MG / Trimethoprim 1 60 MG Oral Tablet [Bactrim] Bactrim DS 800-160 MG Bactrim DS 800-160 MG 12/13/2019 12:00:00 AM EDT 1.0 {table t} suspended Bactrim DS 800-160 MG eCW1 ( [facility]) 80 mg 12/13/2019 12:00:00 AM EDT tablet 90 TAKE ONE TABLET BY MOUTH EVERY DAY TAKE ONE TABLET BY MOUTH EVERY DAY SOLD: 03/16/2020 [facility] Sulfamethoxazole 800 MG / Trimethoprim 1 60 MG Oral Tablet [Bactrim] Bactrim DS 800-160 MG Bactrim DS 800-160 MG 12/13/2019 12:00:00 AM EDT 1.0 {table t} active Bactrim DS 800-160 MG eCW1 ( [facility]) atorvastatin 80 MG Oral Tablet ATORVASTATIN CALCIUM 12/13/2019 1 2:00:00 AM EDT tablet 90 TAKE ONE TABLET BY MOUTH EVERY D AY TAKE ONE TABLET BY MOUTH EVERY DAY SOLD: 12/13/2019 [facility] Sulfamethoxazole 800 MG / Trimethoprim 1 60 MG Oral Tablet [Bactrim] Bactrim DS 800-160 MG Bactrim DS 800-160 MG 12/13/2019 12:00:00 AM EDT 1.0 {table t} active Bactrim DS 800-160 MG eCW1 ( [facility]) tizanidine 4 MG Oral Tablet Tizanidine HCl 4 MG Tizanidine H Cl 4 MG 12/13/2019 12:00:00 AM EDT 2.0 {tablets} active T izanidine HCl 4 MG eCW1 ([facility]) Sulfamethoxazole 800 MG / Trimethoprim 1 60 MG Oral Tablet [Bactrim] Bactrim DS 800-160 MG Bactrim DS 800-160 MG 12/13/2019 12:00:00 AM EDT 1.0 {table t} suspended Bactrim DS 800-160 MG eCW1 ( [facility]) tizanidine 4 MG Oral Tablet Tizanidine HCl 4 MG Tizanidine H Cl 4 MG 12/13/2019 12:00:00 AM EDT 2.0 {tablets} active T izanidine HCl 4 MG eCW1 ([facility]) tizanidine 4 MG Oral Tablet tiZANidine HCl 4 MG tiZANidine H Cl 4 MG 12/13/2019 12:00:00 AM EDT 2.0 {tablets} active t iZANidine HCl 4 MG eCW1 ([facility]) Sulfamethoxazole 800 MG / Trimethoprim 1 60 MG Oral Tablet [Bactrim] Bactrim DS 800-160 MG Bactrim DS 800-160 MG 12/13/2019 12:00:00 AM EDT 1.0 {table t} suspended Bactrim DS 800-160 MG eCW1 ( [facility]) Sulfamethoxazole 800 MG / Trimethoprim 1 60 MG Oral Tablet [Bactrim] Bactrim DS 800-160 MG Bactrim DS 800-160 MG 12/13/2019 12:00:00 AM EDT 1.0 {table t} suspended Bactrim DS 800-160 MG eCW1 ( [facility]) Sulfamethoxazole 800 MG / Trimethoprim 1 60 MG Oral Tablet [Bactrim] Bactrim DS 800-160 MG Bactrim DS 800-160 MG 12/13/2019 12:00:00 AM EDT 1.0 {table t} suspended Bactrim DS 800-160 MG eCW1 ( [facility]) Sulfamethoxazole 800 MG / Trimethoprim 1 60 MG Oral Tablet [Bactrim] Bactrim DS 800-160 MG Bactrim DS 800-160 MG 12/13/2019 12:00:00 AM EDT 1.0 {table t} active Bactrim DS 800-160 MG eCW1 ( [facility]) Sulfamethoxazole 800 MG / Trimethoprim 1 60 MG Oral Tablet [Bactrim] Bactrim DS 800-160 MG Bactrim DS 800-160 MG 12/13/2019 12:00:00 AM EDT 1.0 {table t} suspended Bactrim DS 800-160 MG eCW1 ( [facility]) ezetimibe 10 MG Oral Tablet EZETIMIBE 11/22/2019 12:00:00 AM EDT table t 90 TAKE ONE TABLET BY MOUTH EVERY DAY TAKE ONE TABLET BY MOUTH EVERY DAY SOLD: 02/25/2020 [facility] Paroxetine Hydrochloride 30 MG Oral [...] MOUTH EVERY DAY SOLD: 11/26/2019 [facility] 30 ACTUAT umeclidinium 0.0625 MG/ACTUAT / vilanterol 0.025 MG/ACTUAT Dry Powder Inhaler [Anoro] 62.5-25 mcg/actuation UMECLIDINIUM BRM/VILANTEROL TR 09/29/2019 12:00:00 AM EDT blister with device 60 INHALE ONE PUFF BY MOUTH EVERY DAY INHALE ONE PUFF BY MOUTH EVERY DAY SOLD: 06/03/2020 [facility] 62.5-25 mcg/actuation 09/29/2019 12:00:00 AM EDT blister wit h device 60 INHALE ONE PUFF BY MOUTH EVERY DAY INHALE ONE PUFF BY MOUTH EVERY DAY SOLD: 03/07/2020 [facility] 90 mcg/actuation 09/29/2019 12:00:00 AM EDT HFA aerosol inha ler 8 INHALE TWO PUFFS BY MOUTH FOUR TIMES A DAY NEEDED INHALE TWO PUFFS BY MOUTH FOUR TIMES A DAY NEEDED SOLD: 06/03/2020 [facility] 30 ACTUAT umeclidinium 0.0625 MG/ACTUAT / vilanterol 0.025 MG/ACTUAT Dry Powder Inhaler [Anoro] 62.5-25 mcg/actuation UMECLIDINIUM BRM/VILANTEROL TR 09/29/2019 12:00:00 AM EDT blister with device 60 INHALE ONE PUFF BY MOUTH EVERY DAY INHALE ONE PUFF BY MOUTH EVERY DAY SOLD: 08/19/2020 [facility] 75 mg 07/14/2019 12:00:00 AM EDT tablet 90 TAKE ONE TABLET BY MOUTH EVERY DAY TAKE ONE TABLET BY MOUTH EVERY DAY SOLD: 06/03/2020 [facility] 75 mg 07/14/2019 12:00:00 AM EDT tablet 90 TAKE ONE TABLET BY MOUTH EVERY DAY TAKE ONE TABLET BY MOUTH EVERY DAY SOLD: 11/08/2019 [facility] 400 mg 07/14/2019 12:00:00 AM EDT capsule 180 TAKE ONE CAPSULE BY MOUTH TWICE A DAY TAKE ONE CAPSULE BY MOUTH TWICE A DAY SOLD: 04/13/2020 [facility] 400 mg 07/14/2019 12:00:00 AM EDT capsule 180 TAKE ONE CAPSULE BY MOUTH TWICE A DAY TAKE ONE CAPSULE BY MOUTH TWICE A DAY SOLD: 01/15/2020 [facility] 75 mg 07/14/2019 12:00:00 AM EDT tablet 90 TAKE ONE TABLET BY MOUTH EVERY DAY TAKE ONE TABLET BY MOUTH EVERY DAY SOLD: 02/25/2020 [facility] 400 mg 07/14/2019 12:00:00 AM EDT capsule 180 TAKE ONE CAPSULE BY MOUTH TWICE A DAY TAKE ONE CAPSULE BY MOUTH TWICE A DAY SOLD: 10/15/2019 [facility] 100 mg 07/02/2019 12:00:00 AM EDT tablet 180 TAKE ONE TABLET BY MOUTH TWICE A DAY TAKE ONE TABLET BY MOUTH TWICE A DAY SOLD: 12/06/2019 [facility] Fluzone Quad (PF) 60 mcg (15 m cg x 4)/0.5 mL IM suspension INJECT DIRECTED [id number] completed 0.5 ML influenza A virus A/[facility]/[id number] (H1N1) antigen 0.03 MG/ML / influenza A virus A/[facility] (H3N2) antigen 0.03 MG/ML / influenza B virus B/[facility] antigen 0.03 MG/ML / influenza B virus B/ antigen 0.03 MG/ML Injection [Fluzone Quadrivalent ] POLO ([facility]) Sulfamethoxazole 800 MG / Trimethoprim 1 60 MG Oral Tablet sulfamethoxazole 800 mg-trimethoprim 160 mg tablet sulfamethoxazole 800 mg-trimethoprim 160 mg tablet completed sulfame thoxazole 800 MG / trimethoprim 160 MG Oral Tablet POLO ([facility]) Omeprazole 20 MG Delayed Release Oral Ca psule omeprazole 20 mg capsule,delayed release TAKE ONE CAPSULE BY MOUTH EVERY DAY 30 MINUTES BEFORE MORNING MEAL NEEDED omeprazole 20 mg capsule,delayed release TAKE ONE CAPSULE BY MOUTH EVERY DAY 30 MINUTES BEFORE MORNING MEAL NEEDED completed omeprazole 20 MG Delayed Release Oral Capsule POLO ([facility]) Albuterol 0.833 MG/ML / Ipratropium Brom simin 0.167 MG/ML Inhalant Solution ipratropium 0.5 mg-albuterol 3 mg (2.5 mg base)/3 mL nebulization soln twice a day as needed ipratropium 0.5 mg-albuterol 3 mg (2.5 m g base)/3 mL nebulization soln twice a day as needed completed albuterol 0.833 MG/ML / ipratropium bromide 0.167 MG/ML Inhalation Solution POLO ([facility]) umeclidinium 0.0625 MG/ACTUAT / vilanter ol 0.025 MG/ACTUAT Dry Powder Inhaler Anoro Ellipta 62.5 mcg-25 mcg/actuation powder for inhalation INHALE ONE PUFF BY MOUTH EVERY DAY Anoro Ellipta 62.5 mcg-25 mcg/actuation powder for inhalation INHALE ONE PUFF BY MOUTH EVERY DAY com pleted umeclidinium 0.0625 MG/ACTUAT / vilanterol 0.025 MG/ACTUAT Dry Powder Inhaler POLO ([facility]) Cyclobenzaprine hydrochloride 10 MG Oral Tablet cyclobenzaprine 10 mg tablet TAKE ONE TABLET BY MOUTH EVERY DAY AT BEDTIME cyclobenzaprine 10 mg tablet TAKE ONE TABLET BY MOUTH EVERY DAY AT BEDTIME completed cyclobenzaprine hydrochloride 10 MG Oral Tablet POLO ([facility]) prednisone 20 mg tabs completed prednisone 20 mg tabs POLO ([facility]) methylprednisolone 4 mg tablets in a dose pack [id number] completed methylprednisolone 4 mg tablets in a dose pack POLO ([facility]) Alprazolam 0.5 MG Oral Tablet alprazolam 0.5 mg tablet TAKE ONE TABLET BY MOUTH TWICE A DAY NEEDED MAXIMUM DAILY DOSE TWO TABLETS alprazolam 0.5 mg tablet TAKE ONE TABLET BY MOUTH TWICE A DAY NEEDED MAXIMUM DAILY DOSE TWO TABLETS completed alprazolam 0.5 MG Oral Tablet POLO ([facility]) Doxycycline Monohydrate 100 MG Oral Caps ule doxycycline monohydrate 100 mg capsule doxycycline monohydrate 100 mg capsule completed doxycycline monohydrate 100 MG Oral Capsule POLO ([facility]) pantoprazole 20 MG Delayed Release Oral Tablet pantoprazole 20 mg tablet,delayed release pantoprazole 20 mg tablet,delayed release completed pantoprazole 20 MG Delayed Release Oral Tablet POLO ([facility]) Famotidine 40 MG Oral Tablet famotidine 40 mg tablet famotidine 40 mg tablet completed famotidine 40 MG Oral Tablet POLO ([facility]) Cyclobenzaprine hydrochloride 10 MG Oral Tablet cyclobenzaprine 10 mg tablet TAKE ONE TABLET BY MOUTH EVERY DAY AT BEDTIME cyclobenzaprine 10 mg tablet TAKE ONE TABLET BY MOUTH EVERY DAY AT BEDTIME completed cyclobenzaprine hydrochloride 10 MG Oral Tablet POLO ([facility]) Cyclobenzaprine hydrochloride 10 MG Oral Tablet cyclobenzaprine 10 mg tablet TAKE ONE TABLET BY MOUTH EVERY DAY AT BEDTIME cyclobenzaprine 10 mg tablet TAKE ONE TABLET BY MOUTH EVERY DAY AT BEDTIME completed cyclobenzaprine hydrochloride 10 MG Oral Tablet POLO ([facility]) methylprednisolone 4 mg tablets in a dose pack [id number] completed methylprednisolone 4 mg tablets in a dose pack POLO ([facility]) albuterol sulfate HFA 90 mcg/actuation a erosol inhaler INHALE TWO PUFFS BY MOUTH FOUR TIMES A DAY NEEDED [id number] completed [id number] 200 ACTUAT albuterol 0.09 MG/ACTUAT Metered Dose Inhaler POLO ([facility]) Phenazopyridine hydrochloride 200 MG Ora l Tablet phenazopyridine 200 mg tablet TAKE ONE TABLET BY MOUTH THREE TIMES A DAY AFTER MEALS phenazopyridine 200 mg tablet TAKE ONE TABLET BY MOUTH THREE TIMES A DAY AFTER MEALS completed phenazopyridine hydrochloride 20 0 MG Oral Tablet POLO ([facility]) Omeprazole 20 MG Delayed Release Oral Ca psule omeprazole 20 mg capsule,delayed release TAKE ONE CAPSULE BY MOUTH EVERY DAY 30 MINUTES BEFORE MORNING MEAL NEEDED omeprazole 20 mg capsule,delayed release TAKE ONE CAPSULE BY MOUTH EVERY DAY 30 MINUTES BEFORE MORNING MEAL NEEDED completed omeprazole 20 MG Delayed Release Oral Capsule POLO ([facility]) Omeprazole 20 MG Delayed Release Oral Ca psule omeprazole 20 mg capsule,delayed release TAKE ONE CAPSULE BY MOUTH EVERY DAY 30 MINUTES BEFORE MORNING MEAL NEEDED omeprazole 20 mg capsule,delayed release TAKE ONE CAPSULE BY MOUTH EVERY DAY 30 MINUTES BEFORE MORNING MEAL NEEDED completed omeprazole 20 MG Delayed Release Oral Capsule POLO ([facility]) Alprazolam 0.5 MG Oral Tablet alprazolam 0.5 mg tablet TAKE ONE TABLET BY MOUTH TWICE A DAY NEEDED MAXIMUM DAILY DOSE TWO TABLETS alprazolam 0.5 mg tablet TAKE ONE TABLET BY MOUTH TWICE A DAY NEEDED MAXIMUM DAILY DOSE TWO TABLETS completed alprazolam 0.5 MG Oral Tablet POLO ([facility]) Albuterol 0.833 MG/ML / Ipratropium Brom simin 0.167 MG/ML Inhalant Solution ipratropium 0.5 mg-albuterol 3 mg (2.5 mg base)/3 mL nebulization soln twice a day as needed ipratropium 0.5 mg-albuterol 3 mg (2.5 m g base)/3 mL nebulization soln twice a day as needed completed albuterol 0.833 MG/ML / ipratropium bromide 0.167 MG/ML Inhalation Solution POLO ([facility]) Alprazolam 0.5 MG Oral Tablet alprazolam 0.5 mg tablet TAKE ONE TABLET BY MOUTH TWICE A DAY NEEDED MAXIMUM DAILY DOSE TWO TABLETS alprazolam 0.5 mg tablet TAKE ONE TABLET BY MOUTH TWICE A DAY NEEDED MAXIMUM DAILY DOSE TWO TABLETS completed alprazolam 0.5 MG Oral Tablet POLO ([facility]) fluticasone furoate 0.2 MG/ACTUAT Dry Po wder Inhaler Arnuity Ellipta 200 mcg/actuation powder for inhalation Arnuity Ellipta 200 mcg/actuation powder for inhalation completed flu ticasone furoate 0.2 MG/ACTUAT Dry Powder Inhaler POLO ([facility]) prednisone 20 mg tabs completed prednisone 20 mg tabs POLO ([facility]) Phenazopyridine hydrochloride 200 MG Ora l Tablet phenazopyridine 200 mg tablet TAKE ONE TABLET BY MOUTH THREE TIMES A DAY AFTER MEALS phenazopyridine 200 mg tablet TAKE ONE TABLET BY MOUTH THREE TIMES A DAY AFTER MEALS completed phenazopyridine hydrochloride 20 0 MG Oral Tablet POLO ([facility]) Doxycycline Monohydrate 100 MG Oral Caps ule doxycycline monohydrate 100 mg capsule doxycycline monohydrate 100 mg capsule completed doxycycline monohydrate 100 MG Oral Capsule POLO ([facility]) Sulfamethoxazole 800 MG / Trimethoprim 1 60 MG Oral Tablet sulfamethoxazole 800 mg-trimethoprim 160 mg tablet sulfamethoxazole 800 mg-trimethoprim 160 mg tablet completed sulfame thoxazole 800 MG / trimethoprim 160 MG Oral Tablet POLO ([facility]) Fluzone Quad (PF) 60 mcg (15 m cg x 4)/0.5 mL IM suspension INJECT DIRECTED [id number] completed 0.5 ML influenza A virus A/[facility]/[id number] (H1N1) antigen 0.03 MG/ML / influenza A virus A/[facility] (H3N2) antigen 0.03 MG/ML / influenza B virus B/[facility] antigen 0.03 MG/ML / influenza B virus B/[place] antigen 0.03 MG/ML Injection [Fluzone Quadrivalent ] POLO ([facility]) pantoprazole 20 MG Delayed Release Oral Tablet pantoprazole 20 mg tablet,delayed release pantoprazole 20 mg tablet,delayed release completed pantoprazole 20 MG Delayed Release Oral Tablet POLO ([facility]) Alprazolam 0.5 MG Oral Tablet alprazolam 0.5 mg tablet TAKE ONE TABLET BY MOUTH TWICE A DAY NEEDED MAXIMUM DAILY DOSE TWO TABLETS alprazolam 0.5 mg tablet TAKE ONE TABLET BY MOUTH TWICE A DAY NEEDED MAXIMUM DAILY DOSE TWO TABLETS completed alprazolam 0.5 MG Oral Tablet POLO ([facility]) NITROFURANTOIN, MACROCRYSTALS 25 MG / Ni trofurantoin, Monohydrate 75 MG Oral Capsule nitrofurantoin monohydrate/macrocrystals 100 mg capsule nitrofurantoin monohydrate/macrocrystals 100 mg capsule completed nitrofurantoin, macrocrystals 25 MG / nitrofurantoin, monohydrate 75 MG Oral Capsule POLO ([facility]) Phenazopyridine hydrochloride 200 MG Ora l Tablet phenazopyridine 200 mg tablet TAKE ONE TABLET BY MOUTH THREE TIMES A DAY AFTER MEALS phenazopyridine 200 mg tablet TAKE ONE TABLET BY MOUTH THREE TIMES A DAY AFTER MEALS completed phenazopyridine hydrochloride 20 0 MG Oral Tablet POLO ([facility]) lidocaine 5 % topical patch [id number] com pleted lidocaine 0.05 MG/MG Medicated Patch POLO ([facility]) methylprednisolone 4 mg tablets in a dose pack [id number] completed methylprednisolone 4 mg tablets in a dose pack POLO ([facility]) methylprednisolone 4 mg tablets in a dose pack [id number] completed methylprednisolone 4 mg tablets in a dose pack POLO ([facility]) umeclidinium 0.0625 MG/ACTUAT / vilanter ol 0.025 MG/ACTUAT Dry Powder Inhaler Anoro Ellipta 62.5 mcg-25 mcg/actuation powder for inhalation INHALE ONE PUFF BY MOUTH EVERY DAY Anoro Ellipta 62.5 mcg-25 mcg/actuation powder for inhalation INHALE ONE PUFF BY MOUTH EVERY DAY com pleted umeclidinium 0.0625 MG/ACTUAT / vilanterol 0.025 MG/ACTUAT Dry Powder Inhaler POLO ([facility]) lidocaine 5 % topical patch [id number] com pleted lidocaine 0.05 MG/MG Medicated Patch POLO ([facility]) umeclidinium 0.0625 MG/ACTUAT / vilanter ol 0.025 MG/ACTUAT Dry Powder Inhaler Anoro Ellipta 62.5 mcg-25 mcg/actuation powder for inhalation INHALE ONE PUFF BY MOUTH EVERY DAY Anoro Ellipta 62.5 mcg-25 mcg/actuation powder for inhalation INHALE ONE PUFF BY MOUTH EVERY DAY com pleted umeclidinium 0.0625 MG/ACTUAT / vilanterol 0.025 MG/ACTUAT Dry Powder Inhaler POLO ([facility]) Doxycycline Monohydrate 100 MG Oral Caps ule doxycycline monohydrate 100 mg capsule doxycycline monohydrate 100 mg capsule completed doxycycline monohydrate 100 MG Oral Capsule POLO ([facility]) prednisone 20 mg tabs completed prednisone 20 mg tabs POLO ([facility]) Phenazopyridine hydrochloride 200 MG Ora l Tablet phenazopyridine 200 mg tablet TAKE ONE TABLET BY MOUTH THREE TIMES A DAY AFTER MEALS phenazopyridine 200 mg tablet TAKE ONE TABLET BY MOUTH THREE TIMES A DAY AFTER MEALS completed phenazopyridine hydrochloride 20 0 MG Oral Tablet POLO ([facility]) albuterol sulfate HFA 90 mcg/actuation a erosol inhaler INHALE TWO PUFFS BY MOUTH FOUR TIMES A DAY NEEDED [id number] completed [id number] 200 ACTUAT albuterol 0.09 MG/ACTUAT Metered Dose Inhaler POLO ([facility]) Phenazopyridine hydrochloride 200 MG Ora l Tablet phenazopyridine 200 mg tablet TAKE ONE TABLET BY MOUTH THREE TIMES A DAY AFTER MEALS phenazopyridine 200 mg tablet TAKE ONE TABLET BY MOUTH THREE TIMES A DAY AFTER MEALS completed phenazopyridine hydrochloride 20 0 MG Oral Tablet POLO ([facility]) Alprazolam 0.5 MG Oral Tablet alprazolam 0.5 mg tablet TAKE ONE TABLET BY MOUTH TWICE A DAY NEEDED MAXIMUM DAILY DOSE TWO TABLETS alprazolam 0.5 mg tablet TAKE ONE TABLET BY MOUTH TWICE A DAY NEEDED MAXIMUM DAILY DOSE TWO TABLETS completed alprazolam 0.5 MG Oral Tablet POLO ([facility]) Doxycycline Monohydrate 100 MG Oral Caps ule doxycycline monohydrate 100 mg capsule doxycycline monohydrate 100 mg capsule completed doxycycline monohydrate 100 MG Oral Capsule POLO ([facility]) pantoprazole 20 MG Delayed Release Oral Tablet pantoprazole 20 mg tablet,delayed release pantoprazole 20 mg tablet,delayed release completed pantoprazole 20 MG Delayed Release Oral Tablet POLO ([facility]) methylprednisolone 4 mg tablets in a dose pack [id number] completed methylprednisolone 4 mg tablets in a dose pack POLO ([facility]) Cyclobenzaprine hydrochloride 10 MG Oral Tablet cyclobenzaprine 10 mg tablet TAKE ONE TABLET BY MOUTH EVERY DAY AT BEDTIME cyclobenzaprine 10 mg tablet TAKE ONE TABLET BY MOUTH EVERY DAY AT BEDTIME completed cyclobenzaprine hydrochloride 10 MG Oral Tablet POLO ([facility]) Famotidine 40 MG Oral Tablet famotidine 40 mg tablet famotidine 40 mg tablet completed famotidine 40 MG Oral Tablet POLO ([facility]) Famotidine 40 MG Oral Tablet famotidine 40 mg tablet famotidine 40 mg tablet completed famotidine 40 MG Oral Tablet POLO ([facility]) Doxycycline Monohydrate 100 MG Oral Caps ule doxycycline monohydrate 100 mg capsule doxycycline monohydrate 100 mg capsule completed doxycycline monohydrate 100 MG Oral Capsule POLO ([facility]) Alprazolam 0.5 MG Oral Tablet alprazolam 0.5 mg tablet TAKE ONE TABLET BY MOUTH TWICE A DAY NEEDED MAXIMUM DAILY DOSE TWO TABLETS alprazolam 0.5 mg tablet TAKE ONE TABLET BY MOUTH TWICE A DAY NEEDED MAXIMUM DAILY DOSE TWO TABLETS completed alprazolam 0.5 MG Oral Tablet POLO ([facility]) Sulfamethoxazole 800 MG / Trimethoprim 1 60 MG Oral Tablet sulfamethoxazole 800 mg-trimethoprim 160 mg tablet sulfamethoxazole 800 mg-trimethoprim 160 mg tablet completed sulfame thoxazole 800 MG / trimethoprim 160 MG Oral Tablet POLO ([facility]) umeclidinium 0.0625 MG/ACTUAT / vilanter ol 0.025 MG/ACTUAT Dry Powder Inhaler Anoro Ellipta 62.5 mcg-25 mcg/actuation powder for inhalation INHALE ONE PUFF BY MOUTH EVERY DAY Anoro Ellipta 62.5 mcg-25 mcg/actuation powder for inhalation INHALE ONE PUFF BY MOUTH EVERY DAY com pleted umeclidinium 0.0625 MG/ACTUAT / vilanterol 0.025 MG/ACTUAT Dry Powder Inhaler POLO ([facility]) Famotidine 40 MG Oral Tablet famotidine 40 mg tablet famotidine 40 mg tablet completed famotidine 40 MG Oral Tablet POLO ([facility]) methylprednisolone 4 mg tablets in a dose pack [id number] completed methylprednisolone 4 mg tablets in a dose pack POLO ([facility]) fluticasone furoate 0.2 MG/ACTUAT Dry Po wder Inhaler Arnuity Ellipta 200 mcg/actuation powder for inhalation Arnuity Ellipta 200 mcg/actuation powder for inhalation completed flu ticasone furoate 0.2 MG/ACTUAT Dry Powder Inhaler POLO ([facility]) methylprednisolone 4 mg tablets in a dose pack [id number] completed methylprednisolone 4 mg tablets in a dose pack POLO ([facility]) Phenazopyridine hydrochloride 200 MG Ora l Tablet phenazopyridine 200 mg tablet TAKE ONE TABLET BY MOUTH THREE TIMES A DAY AFTER MEALS phenazopyridine 200 mg tablet TAKE ONE TABLET BY MOUTH THREE TIMES A DAY AFTER MEALS completed phenazopyridine hydrochloride 20 0 MG Oral Tablet POLO ([facility]) fluticasone furoate 0.2 MG/ACTUAT Dry Po wder Inhaler Arnuity Ellipta 200 mcg/actuation powder for inhalation Arnuity Ellipta 200 mcg/actuation powder for inhalation completed flu ticasone furoate 0.2 MG/ACTUAT Dry Powder Inhaler POLO ([facility]) pantoprazole 20 MG Delayed Release Oral Tablet pantoprazole 20 mg tablet,delayed release pantoprazole 20 mg tablet,delayed release completed pantoprazole 20 MG Delayed Release Oral Tablet POLO ([facility]) fluticasone furoate 0.2 MG/ACTUAT Dry Po wder Inhaler Arnuity Ellipta 200 mcg/actuation powder for inhalation Arnuity Ellipta 200 mcg/actuation powder for inhalation completed flu ticasone furoate 0.2 MG/ACTUAT Dry Powder Inhaler POLO ([facility]) Sulfamethoxazole 800 MG / Trimethoprim 1 60 MG Oral Tablet sulfamethoxazole 800 mg-trimethoprim 160 mg tablet sulfamethoxazole 800 mg-trimethoprim 160 mg tablet completed sulfame thoxazole 800 MG / trimethoprim 160 MG Oral Tablet POLO ([facility]) Fluzone Quad [id number] (PF) 60 mcg (15 m cg x 4)/0.5 mL IM suspension INJECT DIRECTED [id number] completed 0.5 ML influenza A virus A/[facility]/[id number] (H1N1) antigen 0.03 MG/ML / influenza A virus A/[facility] (H3N2) antigen 0.03 MG/ML / influenza B virus B/[facility]30704/2012 antigen 0.03 MG/ML / influenza B virus B/ antigen 0.03 MG/ML Injection [Fluzone Quadrivalent [id number]] POLO ([facility]) NITROFURANTOIN, MACROCRYSTALS 25 MG / Ni trofurantoin, Monohydrate 75 MG Oral Capsule nitrofurantoin monohydrate/macrocrystals 100 mg capsule nitrofurantoin monohydrate/macrocrystals 100 mg capsule completed nitrofurantoin, macrocrystals 25 MG / nitrofurantoin, monohydrate 75 MG Oral Capsule POLO ([facility]) Famotidine 40 MG Oral Tablet famotidine 40 mg tablet famotidine 40 mg tablet completed famotidine 40 MG Oral Tablet POLO ([facility]) Cyclobenzaprine hydrochloride 10 MG Oral Tablet cyclobenzaprine 10 mg tablet TAKE ONE TABLET BY MOUTH EVERY DAY AT BEDTIME cyclobenzaprine 10 mg tablet TAKE ONE TABLET BY MOUTH EVERY DAY AT BEDTIME completed cyclobenzaprine hydrochloride 10 MG Oral Tablet POLO ([facility]) NITROFURANTOIN, MACROCRYSTALS 25 MG / Ni trofurantoin, Monohydrate 75 MG Oral Capsule nitrofurantoin monohydrate/macrocrystals 100 mg capsule nitrofurantoin monohydrate/macrocrystals 100 mg capsule completed nitrofurantoin, macrocrystals 25 MG / nitrofurantoin, monohydrate 75 MG Oral Capsule POLO ([facility]) Omeprazole 20 MG Delayed Release Oral Ca psule omeprazole 20 mg capsule,delayed release TAKE ONE CAPSULE BY MOUTH EVERY DAY 30 MINUTES BEFORE MORNING MEAL NEEDED omeprazole 20 mg capsule,delayed release TAKE ONE CAPSULE BY MOUTH EVERY DAY 30 MINUTES BEFORE MORNING MEAL NEEDED completed omeprazole 20 MG Delayed Release Oral Capsule POLO ([facility]) pantoprazole 20 MG Delayed Release Oral Tablet pantoprazole 20 mg tablet,delayed release pantoprazole 20 mg tablet,delayed release completed pantoprazole 20 MG Delayed Release Oral Tablet POLO ([facility]) Cyclobenzaprine hydrochloride 10 MG Oral Tablet cyclobenzaprine 10 mg tablet TAKE ONE TABLET BY MOUTH EVERY DAY AT BEDTIME cyclobenzaprine 10 mg tablet TAKE ONE TABLET BY MOUTH EVERY DAY AT BEDTIME completed cyclobenzaprine hydrochloride 10 MG Oral Tablet POLO ([facility]) fluticasone furoate 0.2 MG/ACTUAT Dry Po wder Inhaler Arnuity Ellipta 200 mcg/actuation powder for inhalation Arnuity Ellipta 200 mcg/actuation powder for inhalation completed flu ticasone furoate 0.2 MG/ACTUAT Dry Powder Inhaler POLO ([facility]) lidocaine 5 % topical patch [id number] com pleted lidocaine 0.05 MG/MG Medicated Patch POLO ([facility]) lidocaine 5 % topical patch [id number] com pleted lidocaine 0.05 MG/MG Medicated Patch POLO ([facility]) Albuterol 0.833 MG/ML / Ipratropium Brom simin 0.167 MG/ML Inhalant Solution ipratropium 0.5 mg-albuterol 3 mg (2.5 mg base)/3 mL nebulization soln twice a day as needed ipratropium 0.5 mg-albuterol 3 mg (2.5 m g base)/3 mL nebulization soln twice a day as needed completed albuterol 0.833 MG/ML / ipratropium bromide 0.167 MG/ML Inhalation Solution POLO ([facility]) methylprednisolone 4 mg tablets in a dose pack [id number] completed methylprednisolone 4 mg tablets in a dose pack ETOWAH ([facility]) prednisone 20 mg tabs completed prednisone 20 mg tabs ETOWAH ([facility]) Omeprazole 20 MG Delayed Release Oral Ca psule omeprazole 20 mg capsule,delayed release TAKE ONE CAPSULE BY MOUTH EVERY DAY 30 MINUTES BEFORE MORNING MEAL NEEDED omeprazole 20 mg capsule,delayed release TAKE ONE CAPSULE BY MOUTH EVERY DAY 30 MINUTES BEFORE MORNING MEAL NEEDED completed omeprazole 20 MG Delayed Release Oral Capsule ETOWAH ([facility]) Fluzone Quad [id number] (PF) 60 mcg (15 m cg x 4)/0.5 mL IM suspension INJECT DIRECTED [id number] completed 0.5 ML influenza A virus A/[facility]/[id number] (H1N1) antigen 0.03 MG/ML / influenza A virus A/[facility] (H3N2) antigen 0.03 MG/ML / influenza B virus B/[facility] antigen 0.03 MG/ML / influenza B virus B/ antigen 0.03 MG/ML Injection [Fluzone Quadrivalent ] POLO ([facility]) fluticasone furoate 0.2 MG/ACTUAT Dry Po wder Inhaler Arnuity Ellipta 200 mcg/actuation powder for inhalation Arnuity Ellipta 200 mcg/actuation powder for inhalation completed flu ticasone furoate 0.2 MG/ACTUAT Dry Powder Inhaler POLO ([facility]) lidocaine 5 % topical patch [id number] com pleted lidocaine 0.05 MG/MG Medicated Patch POLO ([facility]) Doxycycline Monohydrate 100 MG Oral Caps ule doxycycline monohydrate 100 mg capsule doxycycline monohydrate 100 mg capsule completed doxycycline monohydrate 100 MG Oral Capsule POLO ([facility]) Sulfamethoxazole 800 MG / Trimethoprim 1 60 MG Oral Tablet sulfamethoxazole 800 mg-trimethoprim 160 mg tablet sulfamethoxazole 800 mg-trimethoprim 160 mg tablet completed sulfame thoxazole 800 MG / trimethoprim 160 MG Oral Tablet POLO ([facility]) Famotidine 40 MG Oral Tablet famotidine 40 mg tablet famotidine 40 mg tablet completed famotidine 40 MG Oral Tablet POLO ([facility]) Omeprazole 20 MG Delayed Release Oral Ca psule omeprazole 20 mg capsule,delayed release TAKE ONE CAPSULE BY MOUTH EVERY DAY 30 MINUTES BEFORE MORNING MEAL NEEDED omeprazole 20 mg capsule,delayed release TAKE ONE CAPSULE BY MOUTH EVERY DAY 30 MINUTES BEFORE MORNING MEAL NEEDED completed omeprazole 20 MG Delayed Release Oral Capsule POLO ([facility]) Omeprazole 20 MG Delayed Release Oral Ca psule omeprazole 20 mg capsule,delayed release TAKE ONE CAPSULE BY MOUTH EVERY DAY 30 MINUTES BEFORE MORNING MEAL NEEDED omeprazole 20 mg capsule,delayed release TAKE ONE CAPSULE BY MOUTH EVERY DAY 30 MINUTES BEFORE MORNING MEAL NEEDED completed omeprazole 20 MG Delayed Release Oral Capsule POLO ([facility]) Doxycycline Monohydrate 100 MG Oral Caps ule doxycycline monohydrate 100 mg capsule doxycycline monohydrate 100 mg capsule completed doxycycline monohydrate 100 MG Oral Capsule POLO ([facility]) pantoprazole 20 MG Delayed Release Oral Tablet pantoprazole 20 mg tablet,delayed release pantoprazole 20 mg tablet,delayed release completed pantoprazole 20 MG Delayed Release Oral Tablet POLO ([facility]) Albuterol 0.833 MG/ML / Ipratropium Brom simin 0.167 MG/ML Inhalant Solution ipratropium 0.5 mg-albuterol 3 mg (2.5 mg base)/3 mL nebulization soln twice a day as needed ipratropium 0.5 mg-albuterol 3 mg (2.5 m g base)/3 mL nebulization soln twice a day as needed completed albuterol 0.833 MG/ML / ipratropium bromide 0.167 MG/ML Inhalation Solution POLO ([facility]) Alprazolam 0.5 MG Oral Tablet alprazolam 0.5 mg tablet TAKE ONE TABLET BY MOUTH TWICE A DAY NEEDED MAXIMUM DAILY DOSE TWO TABLETS alprazolam 0.5 mg tablet TAKE ONE TABLET BY MOUTH TWICE A DAY NEEDED MAXIMUM DAILY DOSE TWO TABLETS completed alprazolam 0.5 MG Oral Tablet POLO ([facility]) pantoprazole 20 MG Delayed Release Oral Tablet pantoprazole 20 mg tablet,delayed release pantoprazole 20 mg tablet,delayed release completed pantoprazole 20 MG Delayed Release Oral Tablet POLO ([facility]) Phenazopyridine hydrochloride 200 MG Ora l Tablet phenazopyridine 200 mg tablet TAKE ONE TABLET BY MOUTH THREE TIMES A DAY AFTER MEALS phenazopyridine 200 mg tablet TAKE ONE TABLET BY MOUTH THREE TIMES A DAY AFTER MEALS completed phenazopyridine hydrochloride 20 0 MG Oral Tablet POLO ([facility]) Omeprazole 20 MG Delayed Release Oral Ca psule omeprazole 20 mg capsule,delayed release TAKE ONE CAPSULE BY MOUTH EVERY DAY 30 MINUTES BEFORE MORNING MEAL NEEDED omeprazole 20 mg capsule,delayed release TAKE ONE CAPSULE BY MOUTH EVERY DAY 30 MINUTES BEFORE MORNING MEAL NEEDED completed omeprazole 20 MG Delayed Release Oral Capsule POLO ([facility]) fluticasone furoate 0.2 MG/ACTUAT Dry Po wder Inhaler Arnuity Ellipta 200 mcg/actuation powder for inhalation Arnuity Ellipta 200 mcg/actuation powder for inhalation completed flu ticasone furoate 0.2 MG/ACTUAT Dry Powder Inhaler POLO ([facility]) Sulfamethoxazole 800 MG / Trimethoprim 1 60 MG Oral Tablet sulfamethoxazole 800 mg-trimethoprim 160 mg tablet sulfamethoxazole 800 mg-trimethoprim 160 mg tablet completed sulfame thoxazole 800 MG / trimethoprim 160 MG Oral Tablet POLO ([facility]) pantoprazole 20 MG Delayed Release Oral Tablet pantoprazole 20 mg tablet,delayed release pantoprazole 20 mg tablet,delayed release completed pantoprazole 20 MG Delayed Release Oral Tablet POLO ([facility]) lidocaine 5 % topical patch [id number] com pleted lidocaine 0.05 MG/MG Medicated Patch POLO ([facility]) Albuterol 0.833 MG/ML / Ipratropium Brom simin 0.167 MG/ML Inhalant Solution ipratropium 0.5 mg-albuterol 3 mg (2.5 mg base)/3 mL nebulization soln twice a day as needed ipratropium 0.5 mg-albuterol 3 mg (2.5 m g base)/3 mL nebulization soln twice a day as needed completed albuterol 0.833 MG/ML / ipratropium bromide 0.167 MG/ML Inhalation Solution POLO ([facility]) Famotidine 40 MG Oral Tablet famotidine 40 mg tablet famotidine 40 mg tablet completed famotidine 40 MG Oral Tablet POLO ([facility]) Doxycycline Monohydrate 100 MG Oral Caps ule doxycycline monohydrate 100 mg capsule doxycycline monohydrate 100 mg capsule completed doxycycline monohydrate 100 MG Oral Capsule POLO ([facility]) Sulfamethoxazole 800 MG / Trimethoprim 1 60 MG Oral Tablet sulfamethoxazole 800 mg-trimethoprim 160 mg tablet sulfamethoxazole 800 mg-trimethoprim 160 mg tablet completed sulfame thoxazole 800 MG / trimethoprim 160 MG Oral Tablet POLO ([facility]) Fluzone Quad [id number] (PF) 60 mcg (15 m cg x 4)/0.5 mL IM suspension INJECT DIRECTED [id number] completed 0.5 ML influenza A virus A/[facility]/[id number] (H1N1) antigen 0.03 MG/ML / influenza A virus A/[facility] (H3N2) antigen 0.03 MG/ML / influenza B virus B/[facility] antigen 0.03 MG/ML / influenza B virus B/ antigen 0.03 MG/ML Injection [Fluzone Quadrivalent ] POLO ([facility]) Sulfamethoxazole 800 MG / Trimethoprim 1 60 MG Oral Tablet sulfamethoxazole 800 mg-trimethoprim 160 mg tablet sulfamethoxazole 800 mg-trimethoprim 160 mg tablet completed sulfame thoxazole 800 MG / trimethoprim 160 MG Oral Tablet POLO ([facility]) Cyclobenzaprine hydrochloride 10 MG Oral Tablet cyclobenzaprine 10 mg tablet TAKE ONE TABLET BY MOUTH EVERY DAY AT BEDTIME cyclobenzaprine 10 mg tablet TAKE ONE TABLET BY MOUTH EVERY DAY AT BEDTIME completed cyclobenzaprine hydrochloride 10 MG Oral Tablet POLO ([facility]) albuterol sulfate HFA 90 mcg/actuation a erosol inhaler INHALE TWO PUFFS BY MOUTH FOUR TIMES A DAY NEEDED 199095 completed [id number] 200 ACTUAT albuterol 0.09 MG/ACTUAT Metered Dose Inhaler POLO ([facility]) NITROFURANTOIN, MACROCRYSTALS 25 MG / Ni trofurantoin, Monohydrate 75 MG Oral Capsule nitrofurantoin monohydrate/macrocrystals 100 mg capsule nitrofurantoin monohydrate/macrocrystals 100 mg capsule completed nitrofurantoin, macrocrystals 25 MG / nitrofurantoin, monohydrate 75 MG Oral Capsule POLO ([facility]) Albuterol 0.833 MG/ML / Ipratropium Brom simin 0.167 MG/ML Inhalant Solution ipratropium 0.5 mg-albuterol 3 mg (2.5 mg base)/3 mL nebulization soln twice a day as needed ipratropium 0.5 mg-albuterol 3 mg (2.5 m g base)/3 mL nebulization soln twice a day as needed completed albuterol 0.833 MG/ML / ipratropium bromide 0.167 MG/ML Inhalation Solution POLO ([facility]) lidocaine 5 % topical patch [id number] com pleted lidocaine 0.05 MG/MG Medicated Patch POLO ([facility]) Albuterol 0.833 MG/ML / Ipratropium Brom simin 0.167 MG/ML Inhalant Solution ipratropium 0.5 mg-albuterol 3 mg (2.5 mg base)/3 mL nebulization soln twice a day as needed ipratropium 0.5 mg-albuterol 3 mg (2.5 m g base)/3 mL nebulization soln twice a day as needed completed albuterol 0.833 MG/ML / ipratropium bromide 0.167 MG/ML Inhalation Solution POLO ([facility]) NITROFURANTOIN, MACROCRYSTALS 25 MG / Ni trofurantoin, Monohydrate 75 MG Oral Capsule nitrofurantoin monohydrate/macrocrystals 100 mg capsule nitrofurantoin monohydrate/macrocrystals 100 mg capsule completed nitrofurantoin, macrocrystals 25 MG / nitrofurantoin, monohydrate 75 MG Oral Capsule POLO ([facility]) pantoprazole 20 MG Delayed Release Oral Tablet pantoprazole 20 mg tablet,delayed release pantoprazole 20 mg tablet,delayed release completed pantoprazole 20 MG Delayed Release Oral Tablet POLO ([facility]) lidocaine 5 % topical patch [id number] com pleted lidocaine 0.05 MG/MG Medicated Patch POLO ([facility]) umeclidinium 0.0625 MG/ACTUAT / vilanter ol 0.025 MG/ACTUAT Dry Powder Inhaler Anoro Ellipta 62.5 mcg-25 mcg/actuation powder for inhalation INHALE ONE PUFF BY MOUTH EVERY DAY Anoro Ellipta 62.5 mcg-25 mcg/actuation powder for inhalation INHALE ONE PUFF BY MOUTH EVERY DAY com pleted umeclidinium 0.0625 MG/ACTUAT / vilanterol 0.025 MG/ACTUAT Dry Powder Inhaler POLO ([facility]) Alprazolam 0.5 MG Oral Tablet alprazolam 0.5 mg tablet TAKE ONE TABLET BY MOUTH TWICE A DAY NEEDED MAXIMUM DAILY DOSE TWO TABLETS alprazolam 0.5 mg tablet TAKE ONE TABLET BY MOUTH TWICE A DAY NEEDED MAXIMUM DAILY DOSE TWO TABLETS completed alprazolam 0.5 MG Oral Tablet POLO ([facility]) umeclidinium 0.0625 MG/ACTUAT / vilanter ol 0.025 MG/ACTUAT Dry Powder Inhaler Anoro Ellipta 62.5 mcg-25 mcg/actuation powder for inhalation INHALE ONE PUFF BY MOUTH EVERY DAY Anoro Ellipta 62.5 mcg-25 mcg/actuation powder for inhalation INHALE ONE PUFF BY MOUTH EVERY DAY com pleted umeclidinium 0.0625 MG/ACTUAT / vilanterol 0.025 MG/ACTUAT Dry Powder Inhaler POLO ([facility]) Cyclobenzaprine hydrochloride 10 MG Oral Tablet cyclobenzaprine 10 mg tablet TAKE ONE TABLET BY MOUTH EVERY DAY AT BEDTIME cyclobenzaprine 10 mg tablet TAKE ONE TABLET BY MOUTH EVERY DAY AT BEDTIME completed cyclobenzaprine hydrochloride 10 MG Oral Tablet POLO ([facility]) Sulfamethoxazole 800 MG / Trimethoprim 1 60 MG Oral Tablet sulfamethoxazole 800 mg-trimethoprim 160 mg tablet sulfamethoxazole 800 mg-trimethoprim 160 mg tablet completed sulfame thoxazole 800 MG / trimethoprim 160 MG Oral Tablet POLO ([facility]) Alprazolam 0.5 MG Oral Tablet alprazolam 0.5 mg tablet TAKE ONE TABLET BY MOUTH TWICE A DAY NEEDED MAXIMUM DAILY DOSE TWO TABLETS alprazolam 0.5 mg tablet TAKE ONE TABLET BY MOUTH TWICE A DAY NEEDED MAXIMUM DAILY DOSE TWO TABLETS completed alprazolam 0.5 MG Oral Tablet POLO ([facility]) prednisone 20 mg tabs completed prednisone 20 mg tabs POLO ([facility]) NITROFURANTOIN, MACROCRYSTALS 25 MG / Ni trofurantoin, Monohydrate 75 MG Oral Capsule nitrofurantoin monohydrate/macrocrystals 100 mg capsule nitrofurantoin monohydrate/macrocrystals 100 mg capsule completed nitrofurantoin, macrocrystals 25 MG / nitrofurantoin, monohydrate 75 MG Oral Capsule POLO ([facility]) Doxycycline Monohydrate 100 MG Oral Caps ule doxycycline monohydrate 100 mg capsule doxycycline monohydrate 100 mg capsule completed doxycycline monohydrate 100 MG Oral Capsule POLO ([facility]) methylprednisolone 4 mg tablets in a dose pack [id number] completed methylprednisolone 4 mg tablets in a dose pack POLO ([facility]) NITROFURANTOIN, MACROCRYSTALS 25 MG / Ni trofurantoin, Monohydrate 75 MG Oral Capsule nitrofurantoin monohydrate/macrocrystals 100 mg capsule nitrofurantoin monohydrate/macrocrystals 100 mg capsule completed nitrofurantoin, macrocrystals 25 MG / nitrofurantoin, monohydrate 75 MG Oral Capsule POLO ([facility]) prednisone 20 mg tabs completed prednisone 20 mg tabs POLO ([facility]) prednisone 20 mg tabs completed prednisone 20 mg tabs POLO ([facility]) NITROFURANTOIN, MACROCRYSTALS 25 MG / Ni trofurantoin, Monohydrate 75 MG Oral Capsule nitrofurantoin monohydrate/macrocrystals 100 mg capsule nitrofurantoin monohydrate/macrocrystals 100 mg capsule completed nitrofurantoin, macrocrystals 25 MG / nitrofurantoin, monohydrate 75 MG Oral Capsule POLO ([facility]) Albuterol 0.833 MG/ML / Ipratropium Brom simin 0.167 MG/ML Inhalant Solution ipratropium 0.5 mg-albuterol 3 mg (2.5 mg base)/3 mL nebulization soln twice a day as needed ipratropium 0.5 mg-albuterol 3 mg (2.5 m g base)/3 mL nebulization soln twice a day as needed completed albuterol 0.833 MG/ML / ipratropium bromide 0.167 MG/ML Inhalation Solution POLO ([facility]) Albuterol 0.833 MG/ML / Ipratropium Brom simin 0.167 MG/ML Inhalant Solution ipratropium 0.5 mg-albuterol 3 mg (2.5 mg base)/3 mL nebulization soln twice a day as needed ipratropium 0.5 mg-albuterol 3 mg (2.5 m g base)/3 mL nebulization soln twice a day as needed completed albuterol 0.833 MG/ML / ipratropium bromide 0.167 MG/ML Inhalation Solution POLO ([facility]) Omeprazole 20 MG Delayed Release Oral Ca psule omeprazole 20 mg capsule,delayed release TAKE ONE CAPSULE BY MOUTH EVERY DAY 30 MINUTES BEFORE MORNING MEAL NEEDED omeprazole 20 mg capsule,delayed release TAKE ONE CAPSULE BY MOUTH EVERY DAY 30 MINUTES BEFORE MORNING MEAL NEEDED completed omeprazole 20 MG Delayed Release Oral Capsule POLO ([facility]) NITROFURANTOIN, MACROCRYSTALS 25 MG / Ni trofurantoin, Monohydrate 75 MG Oral Capsule nitrofurantoin monohydrate/macrocrystals 100 mg capsule nitrofurantoin monohydrate/macrocrystals 100 mg capsule completed nitrofurantoin, macrocrystals 25 MG / nitrofurantoin, monohydrate 75 MG Oral Capsule POLO ([facility]) Phenazopyridine hydrochloride 200 MG Ora l Tablet phenazopyridine 200 mg tablet TAKE ONE TABLET BY MOUTH THREE TIMES A DAY AFTER MEALS phenazopyridine 200 mg tablet TAKE ONE TABLET BY MOUTH THREE TIMES A DAY AFTER MEALS completed phenazopyridine hydrochloride 20 0 MG Oral Tablet POLO ([facility]) prednisone 20 mg tabs completed prednisone 20 mg tabs OPLO ([facility]) lidocaine 5 % topical patch [id number] com pleted lidocaine 0.05 MG/MG Medicated Patch POLO ([facility]) prednisone 20 mg tabs completed prednisone 20 mg tabs POLO ([facility]) Phenazopyridine hydrochloride 200 MG Ora l Tablet phenazopyridine 200 mg tablet TAKE ONE TABLET BY MOUTH THREE TIMES A DAY AFTER MEALS phenazopyridine 200 mg tablet TAKE ONE TABLET BY MOUTH THREE TIMES A DAY AFTER MEALS completed phenazopyridine hydrochloride 20 0 MG Oral Tablet POLO ([facility]) Cyclobenzaprine hydrochloride 10 MG Oral Tablet cyclobenzaprine 10 mg tablet TAKE ONE TABLET BY MOUTH EVERY DAY AT BEDTIME cyclobenzaprine 10 mg tablet TAKE ONE TABLET BY MOUTH EVERY DAY AT BEDTIME completed cyclobenzaprine hydrochloride 10 MG Oral Tablet POLO ([facility]) Insurance Providers Payer name Policy type / Coverage type Policy ID Covered constitution party ID Covered constitution party's relationship to mcdermott Policy [place] Plan Information [facility] [id number] MEDICARE COMPLETE [id number] MEDICAID [id number] SP [id number] MEDICARE COMPLETE [id number] SP [id number] [facility] Medicare Complete F [id number] SELF [id number] Medicaid [place] Medigap Part B [id number] Self [id number] Medicaid [facility] S [id number] SELF [id number] [facility] Medicare Complete F [id number] SELF [id number] Medicaid [facility] Part B [id number] Self [id number] [facility] Medicare Complete F [id number] SELF [id number] MEDICARE COMPLETE [id number] SP [id number] Medicaid [facility] Part B [id number] Self [id number] Medicaid [facility] Part B [id number] Self [id number] MEDICAID [id number] SP [id number] MEDICARE COMPLETE [id number] SP [id number] MEDICAID [id number] SP [id number] MEDICARE COMPLETE [id number] SP [id number] MEDICARE COMPLETE [id number] SP [id number] [facility] MEDICAID [id number] UHC UNITED MEDICARE DUAL G [id number] Self [id number] [facility] MEDICAID [id number] Mary [id number] MEDICAID M [id number] Self [id number] MEDICAID [id number] MEDICAID [id number] Mary [id number] [facility] Medicare Commercial [id number] Self [id number] [facility]-Medicaid [id number] ANS-Medicare Part B [id number] [facility]-Medicare Part B [id number] ANSI-Medicaid [id number] ANSI-Medicaid [id number] ANS-Medicare Part B [id number] [facility]-Medicare Part B [id number] ANSI-Medicaid [id number] ANSI-Medicare Part B [id number] [facility] [id number] ANSI-Medicaid [id number] ANSI-Medicare Part B [id number] ANSI-Medicaid [id number] ANSI-Medicare Part B [id number] ANSI-Medicare Part B [id number] ANSI-Medicaid [id number] ANSI-Medicare Part B [id number] ANSI-Medicaid [id number] ANSI-Medicare Part B [id number] ANSI-Medicaid [id number] ANSI-Medicare Part B [id number] ANSI-Medicaid [id number] ANSI-Medicaid [id number] ANSI-Medicare Part B [id number] ANSI-Medicare Part B [id number] [place] [id number] SP [id number] ANSI-Medicare Part B [id number] ANSI-Medicaid [id number] ANSI-Medicaid [id number] ANSI-Medicare Part B [id number] ANSI-Medicaid [id number] ANSI-Medicare Part B [id number] ANSI-Medicaid [id number] ANSI-Medicare Part B [id number] ANSI-Medicaid [id number] ANSI-Medicare Part B [id number] ANSI-Medicaid [id number] ANSI-Medicare Part B [id number] [facility] [id number] ANSI-Medicaid [id number] ANSI-Medicare Part B [id number] ANSI-Medicaid [id number] [facility] ([facility] Commercial [id number] Self [id number] MEDICARE [id number] SP [id number] A Medicaid [facility] Part [place] [id number] Self [id number] MEDICARE COMPLETE[place] [place] [id number] S [id number] [facility] [id number] SP [id number] [facility] [id number] SP [id number] [place] [id number] Self [id number] [place] [id number] Self [id number] MEDICARE COMPLETE [id number] SP [id number] [facility] [id number] SP [id number] MEDICARE [id number] SP [id number] A MEDICARE UNAVAILABLE SP UNAVAILA BLE ANSI-Medicaid [id number] [facility] MCRO [id number] SP [id number] MEDICARE COMPLETE [id number] SP [id number] MEDICARE COMPLETE [id number] SP [id number] MEDICARE COMPLETE [id number] SP [id number] [place]ED[place] [id number] SP [id number] [facility](MCAID) O [id number] S [id number] MEDICAID M [id number] S [id number] [facility] MCRO [id number] SP [id number] MEDICARE COMPLETE-[facility] O [id number] S [id number] [facility] [id number] SP [id number] [facility] [id number] SP [id number] ANSI-Medicare Part B [id number] ANSI-Medicaid [id number] ANSI-Medicare Part B [id number] ANSI-Medicaid [id number] MEDICAID [id number] SP [id number] ANSI-Medicare Part B [id number] ANSI-Medicaid [id number] [facility]-Medicaid [id number] ANS-Medicare Part B [id number] ANSI-Medicare Part B [id number] ANSI-Medicaid [id number] Medicaid [place] Med[place] Part B [id number] Self [id number] Problems, Conditions, and Diagnoses Code Display Name Description Problem Type Effective Dates Data Source(s) R55 Syncope and collapse Syncope and collapse Diagnosis 11/07/2020 01:47:44 PM EDT [facility] R42 Dizziness and giddiness Dizziness and giddiness Diagno sis 11/07/2020 01:47:44 PM EDT [facility] I10 Essential (primary) hypertension Essential (primary) h ypertension Diagnosis 10/29/2020 12:48:27 PM EDT [facility] I73.9 Peripheral vascular disease, unspecified Peripheral vascular disease, unspecified Diagnosis 10/29/2020 12:48:27 PM EDT [facility] R06.00 Dyspnea, unspecified Dyspnea, unspecified Diagnosis 10/29/2020 12:48:27 PM EDT [facility] I67.1 Cerebral aneurysm, nonruptured Cerebral aneurysm, nonr uptured Diagnosis 06/27/2020 10:19:23 AM EDT [facility] E16.2 [id number] Hypoglycemia Problem 10/19/2020 12:00:00 AM EDT [facility] ([facility]) Z95.828 [id number] S/P insertion of iliac artery stent Probl em 10/16/2020 12:00:00 AM EDT [facility] ([facility]) I10 Essential hypertension Essential hypertension [id number] 09/13/2020 12:00:00 AM EDT [facility] I73.9 PAD (peripheral artery disease) PAD (peripheral artery disease) [id number] 08/29/2020 12:00:00 AM EDT [facility] R42 Postural dizziness with presyncope Postural dizz iness with presyncope [id number] 08/29/2020 12:00:00 AM EDT 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 Problem 03/07/2020 12:00:00 AM EST [facility] ([facility], ) I63.032 Cerebral infarction due to internal reid tid artery occlusion Cerebral infarction due to internal carotid artery occlusion Problem 12:00:00 AM EST [facility] ([facility], ) Surgeries/Procedures Procedure Description Date Indications Data Source(s) OFFICE OUTPATIENT VISIT 25 MINUTES 11/12/2020 12:00:00 AM EDT [facility] ([facility] ) OFFICE OUTPATIENT VISIT 15 MINUTES 11/09/2020 12:00:00 AM EDT [facility] ([facility], ) OFFICE OUTPATIENT VISIT 15 MINUTES 11/08/2020 12:00:00 AM EDT MARQUITA ([facility], ) ECG ROUTINE ECG W/LEAST 12 LDS W/I&R <td>POCT AMB EKG</td><td>Routine</td><td>10/29/2020 4:08 PM EDT</td><td> Postural dizziness with presyncope</td><td> </td> 10/29/2020 04:08:00 PM EDT Postural dizziness with presyncope [facility] Postural dizziness with presyncope D DIMER DIC SCREEN <td>D DIMER DIC SCREEN</td><td>Routine</td><td>10/07/2020</td><td></td><td></td> 10/07/2020 12:00:00 AM EDT [facility] TROPONIN QUANTITATIVE <td>TROPONIN I</td><td>Routine</td><td>10/07/2020</td><td></td><td> </td> 10/07/2020 12:00:00 AM EDT [facility] BLOOD COUNT COMPLETE AUTO&AUTO DIFRNTL WBC COUNT <td>C BC AND DIFFERENTIAL</td><td>Routine</td><td>10/07/2020</td><td></td><td> </td> 10/07/2020 12:00:00 AM EDT [facility] BASIC METABOLIC PANEL CALCIUM TOTAL <td>BASIC METABOLI C PANEL</td><td>Routine</td><td>10/07/2020</td><td></td><td> </td> 10/07/2020 12:00:00 AM EDT [facility] Spirometry 09/04/2020 12:00:00 AM EDT Kelley GONZALEZ ([facility], ) OFFICE OUTPATIENT VISIT 25 MINUTES 09/04/2020 12:00:00 AM EDT [facility] ([facility], ) ECG ROUTINE ECG W/LEAST 12 LDS W/I&R <td>POCT AMB EKG</td><td>Routine</td><td>08/29/2020 9:01 PM EDT</td><td> Dyspnea on exertion</td><td> </td> 08/29/2020 09:01:00 PM EDT Dyspnea on exertion [facility] Dyspnea on exertion OFFICE OUTPATIENT VISIT 15 MINUTES 08/13/2020 12:00:00 AM EDT [facility] ([facility], ) BASIC METABOLIC PANEL CALCIUM TOTAL <td>BASIC METABOLI C PANEL</td><td>Routine</td><td>08/13/2020</td><td></td><td> </td> 08/13/2020 12:00:00 AM EDT [facility] OFFICE OUTPATIENT VISIT 5 MINUTES 08/10/2020 12:00:00 AM EDT [facility] ([facility]) OFFICE OUTPATIENT VISIT 25 MINUTES 08/06/2020 12:00:00 AM EDT [facility] ([facility]) BASIC METABOLIC PANEL CALCIUM TOTAL <td>BASIC METABOLI C PANEL</td><td>Routine</td><td>08/02/2020</td><td></td><td> </td> 08/02/2020 12:00:00 AM EDT [facility] Magnetic Resonance Angiogtaphy Head W/O Contrast Material(S) 08/01/2020 12:00:00 AM EDT [facility] ([facility] Magnetic Resonance Angiogtaphy Head W/O Contrast Material(S) 08/01/2020 12:00:00 AM EDT [facility] ([facility] TROPONIN QUANTITATIVE <td>TROPONIN I</td><td>Routine</td><td>07/30/2020</td><td></td><td> </td> 07/30/2020 12:00:00 AM EDT [facility] BLOOD COUNT COMPLETE AUTO&AUTO DIFRNTL WBC COUNT <td>C BC AND DIFFERENTIAL</td><td>Routine</td><td>07/30/2020</td><td></td><td> </td> 07/30/2020 12:00:00 AM EDT [facility] HEPATIC FUNCTION PANEL <td>HEPATIC FUNCTION PANEL</td><td>Routine</td><td>07/30/2020</td><td></td><td> </td> 07/30/2020 12:00:00 AM EDT [facility] PHYSICIAN TELEPHONE EVALUATION 11-20 MIN 07/20/2020 12 :00:00 AM EDT [facility] ([facility] ) OFFICE OUTPATIENT VISIT 25 MINUTES 07/19/2020 12:00:00 AM EDT [facility] ([facility] ) Spirometry 05/30/2020 12:00:00 AM EDT M [facility]ENT ([facility], ) OFFICE OUTPATIENT VISIT 25 MINUTES 05/30/2020 12:00:00 AM EDT [facility] ([facility], ) TOBACCO USE CESSATION INTERMEDIATE 3-10 MINUTES 2020 12:00:00 AM EDT [facility] ([facility], ) ELECTROENCEPHALOGRAM W/REC AWAKE&ASLEEP 05/15/2020 12: 00:00 AM EDT [facility] ([facility], ) ELECTROENCEPHALOGRAM W/REC AWAKE&ASLEEP 05/15/2020 12: 00:00 AM EDT [facility] ([facility], ) OFFICE OUTPATIENT VISIT 25 MINUTES 05/11/2020 12:00:00 AM EDT [facility] ([facility], ) Endoscopy Upper GI Biopsy 04/27/2020 12:00:00 AM EST [facility] ([facility], ) Colonoscopy Flexible Proximal To Splenic Flexure W/Biopsy Si ngle/ 04/27/2020 12:00:00 AM EST [facility] ([facility], ) OFFICE OUTPATIENT VISIT 25 MINUTES 04/09/2020 12:00:00 AM EST [facility] ([facility], ) THYROID STIMULATING HORMONE TSH <td>TSH</td><td>Routine</td><td>04/09/2020</td><td></td><td> </td> 04/09/2020 12:00:00 AM EST [facility] BASIC METABOLIC PANEL CALCIUM TOTAL <td>BASIC METABOLI C PANEL</td><td>Routine</td><td>04/09/2020</td><td></td><td> </td> 04/09/2020 12:00:00 AM EST [facility] TSTG ANS FUNCJ CARDIOVAGAL INNERVAJ PARASYMP 12:00:00 AM EST [facility] ([facility], ) TESTING AUTONOMIC NERVOUS SYSTEM FUNCTION 03/28/2020 1 2:00:00 AM EST [facility] ([facility], ) Magnetic Resonance Angiogtaphy Head W/O Contrast Material(S) 03/17/2020 12:00:00 AM EST [facility] ([facility] ) Magnetic Resonance Angiogtaphy Head W/O Contrast Material(S) 03/17/2020 12:00:00 AM EST [facility] ([facility] ) MRI BRAIN BRAIN STEM W/O CONTRAST MATERIAL 03/17/2020 12:00:00 AM EST [facility] ([facility], ) MRI BRAIN BRAIN STEM W/O CONTRAST MATERIAL 03/17/2020 12:00:00 AM EST [facility] ([facility] ) Balance Forward 02/22/2020 12:00:00 AM EST [facility] ([facility], ) Spirometry 01/30/2020 12:00:00 AM EST M [facility] ([facility], ) Results ID Date Data Source [id number] 11/16/2020 11:15:32 AM EDT [facility] Name Value Range Interpretation Code Description Data Connie rce(s) Supporting Document(s) &PDF [facility] XRXSVd1qWsLLMqWl97/BEJdfCTLcq0UeCFceEQq6EZilUVHaY7BamRmlMRvINY0lE7yEBLvHPD2qEARg pYy [file] AgICAgICAgICAgICAgICAgICAgICAgICAgICAgICAgICAgICAgICAgICAgICAgICAgICAgICAgICANCi AgICAgICAgICAgICAgICAgICAgICAgICAgICAgICAg ICAgICAgICAgICAgICAgICAgICAgICAgICAgICAgICAgICAgICAgICAgICAgICAgICAgICAgICAgICAg ICAgICAgICANCiAgICAgICAgICAgICAgICAgICAgICAgICAgICAgICAgICAgICAgICAgICAgICAgICAg ICAgICAgICAgICAgICAgICAgICAgICAgICAgICAgIC AgICAgICAgICAgICAgICAgICANCiAgICAgICAgICAgICAgICAgICAgICAgICAgICAgICAgICAgICAgIC AgICAgICAgICAgICAgICAgICAgICAgICAgICAgICAgICAgICAgICAgICAgICAgICAgICAgICAgICAgIC ANCiAgICAgICAgICAgICAgICAgICAgICAgICAgICAg ICAgICAgICAgICAgICAgICAgICAgICAgICAgICAgICAgICAgICAgICAgICAgICAgICAgICAgICAgICAg ICAgICAgICAgICANCiAgICAgICAgICAgICAgICAgICAgICAgICAgICAgICAgICAgICAgICAgICAgICAg ICAgICAgICAgICAgICAgICAgICAgICAgICAgICAgIC AgICAgICAgICAgICAgICAgICAgICANCiAgICAgICAgICAgICAgICAgICAgICAgICAgICAgICAgICAgIC AgICAgICAgICAgICAgICAgICAgICAgICAgICAgICAgICAgICAgICAgICAgICAgICAgICAgICAgICAgIC AgICANCiAgICAgICAgICAgICAgICAgICAgICAgICAg ICAgICAgICAgICAgICAgICAgICAgICAgICAgICAgICAgICAgICAgICAgICAgICAgICAgICAgICAgICAg ICAgICAgICAgICAgICANCiAgICAgICAgICAgICAgICAgICAgICAgICAgICAgICAgICAgICAgICAgICAg ICAgICAgICAgICAgICAgICAgICAgICAgICAgICAgIC AgICAgICAgICAgICAgICAgICAgICAgICANCiAgICAgICAgICAgICAgICAgICAgICAgICAgICAgICAgIC AgICAgICAgICAgICAgICAgICAgICAgICAgICAgICAgICAgICAgICAgICAgICAgICAgICAgICAgICAgIC AgICAgICANCjw/zLDlB7odhOKlypT8P8fmCg6GIp8S UV0jk1BaUOJcPUerpnKsDgnSLcUrWJIuWzeLEwo2RYygXE5GpISgC8TiT2JlVHauJM0HQPBvFEBosCBn HSTaGQFeYmI2CYYwFAzsDM1IwSDpXPprUHIcWCOiZW0KHYYtK482gvDoIJ4ODy6IYpEuWX7zik5CPoBa YPTyCivAPku1XCtkCS3ZnGNtQ2SqnVXat9aWTfReA5 XJBAEkTDXzIo9HNJLiRfPuNUFwNLhcOJ4dAIFaPVRLwQjwtfX9LV0RYH3zdwNrWV4XCjFxOu6zUg8GPa KeM3BfX8TbZBGjVDKKTSnnFE2KRQRkRZR2VZOkEyBhXJMHMmSgR28yQR7UO9Aae84wAdX8NEYuRkFtQM lwZV74qQutreTmaCPsrEcrXC0RRq9+DQplbmRvYmoN YvprMZEVEjUpHrYBOyZtYPQhMTSjVLCjSyK7QaKrSk0NTEUgXEToGJOuDzVwNGXeVZKbZSsgXJQyDAI1 EEE2XQNgQHChGG1KLdLqYMUmROF9NsGtLCYrKLSori6XJIDqPZWvOCM9KSWsCJUbTHJwRChmUSJfDMIg NZJ4XQVwSRQfHI4GAdDeVSUkHZPuRSabVIGnHEPnhe 3DWRLnORCrPly5OqOlYOPyJILzNSsxDIAgZYR8HPRgCZHnWQLlSA4IJoQqLKCtWVPbHYOfCODrHLPmjk 3AYTHfUVDtAMNzCKAhMLKqRXXwNVxaSTVgLUD9KLLuKDTeDAPuDP1QAkVgRTFvBZX3XGUbTFTyCJCrkv 1RXUEdGBUtIxW6GPQqOHEwEZEdYIxwILQnXLT9JVU9 ARTxDWZeZM6HIcSqRJIlSMezPdVaOZGfYOUesb8GSTRnDSIpZbB8GrLxDJRfTVBbQNluPPUnSRE1Rltb ITDjLWSdFH6SJuIwBLAhGGj5CARdWSTlGXUsre7AMQJrYGIjPQO2AAVxGILcIBHkWBfcLHNoXCY2OAxh ASAyVXAoSY4NBiDyPKLtTPc5DJZdHEYoFTPzji1DCZ YiDUIuXGW4UVGzPXGoTQFgMRxpDVSiJXSpJdAmUXCkGPBlKJ6AFnMnBBzoYSTZVtc0CUfnB1h0GMAuMC 7DK2Yqt2AcTeCqBZUCDXfbSC4manDtBOXfKu6QK1eMReumBoOsYGSrM8G9D7ApFui7XNQ9XZlgDMGeCd KsPqKyDq3cQQG8YSUhSNKsOeZuRFF5PfeuBay3RwWt GaP6YbZhADJ1XnJgXJ1KLm5AJzB3TZQ8mRMlAw6GUGK6TQuEAkYhET9QOXf= ID Date Data Source [id number] 10/07/2020 11:10:00 AM EDT [facility] Name Value Range Interpretation Code Description Data Connie rce(s) Supporting Document(s) SARS coronavirus 2 RNA [Presence] in Res piratory specimen by MINERVA with probe detection NEGATIVE [facility] This lab was ordered by [facility] a nd reported by [facility]. ID Date Data Source [id number] 09/04/2020 01:41:00 PM EDT [facility] ([facility], ) Name Value Range Interpretation Code Description Data Connie rce(s) Supporting Document(s) PDFReport Laboratory test result [facility] ([facility], ) FVC-Pred 3.53 L [facility] ([facility]) FVC-%Pred-Pre 53 L [facility] ([facility]) FVC-LLN 2.79 L [facility] ([facility]) FVC-Pre 1.88 L [facility] ([facility]) Fev1-Pred 2.72 L [facility] ([facility]) Fev1-Pre 0.93 L [facility] ([facility]) Fev1-%Pred-Pre 34 L [facility] ([facility]) Fev1-LLN 2.10 L [facility] ([facility]) Fev6-Pre 1.87 L [facility] ([facility]) Fev6-Pred 3.40 L [facility] ([facility]) Lgh4nlc-Rzwg 78 % [facility] ([facility]) Fev6-%Pred-Pre 54 L [facility] ([facility]) Fev6-LLN 2.68 L [facility] ([facility]) Nvi1gdm-%Pred-Pre 63 % [facility] ([facility]) Khp1zmm-Pux 49 % [facility] ([facility]) Xyn6lok-SAZ 68 % [facility] ([facility]) Sao0vcx-%Pred-Pre 103 % [facility] ([facility]) Ici5ryf-Mjo 99 % [facility] ([facility]) Opl8gaz-Vlmv 96 % [facility] ([facility]) FEFMax-Pred 6.55 L/E/sec [facility] ([facility]) FEFMax-%Pred-Pre 27 L/E/sec [facility] ([facility]) FEFMax-Pre 1.80 L/E/sec [facility] ([facility]) Wnx9440-Eqjt 2.42 L/E/sec [facility] ([facility]) FEFMax-LLN 4.73 L/E/sec [facility] ([facility]) Dbq8912-Yor 0.39 L/E/sec [facility] ([facility]) ExpTime-Pre 6.31 sec [facility] ([facility]) Fmw4210-%Pred-Pre 16 L/E/sec [facility] ([facility]) Otp9578-NBI 1.10 L/E/sec [facility] ([facility], ) Ixb0yon3-Atbr 81 % [facility] ([facility]) Rvb2wop2-Fdr 50 % [facility] ([facility]) Jvk7opn0-%Pred-Pre 61 % [facility] ([facility]) Iup1xwb4-DUG 72 % [facility] ([facility]) ID Date Data Source [id number] 08/08/2020 12:45:54 PM EDT [facility] Name Value Range Interpretation Code Description Data Connie rce(s) Supporting Document(s) Progress Note [facility] XSLRKt3mDeUCSdQq86/CPZdnKDIas7ChPCcmQQo8BJpkRFHxR3ObCEA6tN0jGDS6QHuNEaWxYdNcHoXo lbm [file] [id number]== ID Date Data Source [id number] 08/02/2020 03:13:00 PM EDT [facility] ([facility]) Name Value Range Interpretation Code Description Data Connie rce(s) Supporting Document(s) Blood Urea Nitrogen 6 mg/dL 7-18 [facility] ([facility] Glucose, Fasting 92 mg/dL 70-100 [facility] ([facility]) Glomerular Filtration Rate Laboratory test result [facility] ([facility]) <content>Units are mL/min/1.73 m2</content>
<content></content>
<content>Chronic Kidney Disease Staging per NKF:</content>
<content></content>
<content>Stage I & II GFR >=60 Normal to Mildly Decreased</content>
<content>Stage III GFR 30- 59 Moderately Decreased</content>
<content>Stage IV GFR 15-29 Severely Decreased</content>
<content>Stage V GFR <15 Very Little GFR Left</content>
<content>ESRD GFR <15 on CAR PRE COOLER</content>
<content></content> Creatinine For GFR 0.90 mg/dL 0.55-1.30 [facility] ([facility]) Sodium Level 144 meq/L 136-145 [facility] ([facility]) Potassium Serum 3.3 meq/L 3.5-5.1 [facility] ([facility]) Chloride Level 113 meq/L 98-107 [facility] ([facility] Carbon Dioxide Level 27 meq/L 21-32 [facility] ([facility]) Calcium Level 8.8 mg/dL 8.8-10.2 [facility] ([facility] Anion Gap 4 meq/L 8-16 [facility] ([facility]) ID Date Data Source [id number] 07/20/2020 09:43:00 AM EDT [facility] ([facility]) Name Value Range Interpretation Code Description Data Connie rce(s) Supporting Document(s) Calcidiol [Mass/volume] in Serum or Plasma 35.9 ng/mL 30.0-100.0 [facility] ([facility]) ID Date Data Source [id number] 07/20/2020 09:43:00 AM EDT [facility] ([facility]) Name Value Range Interpretation Code Description Data Connie rce(s) Supporting Document(s) Glucose, Fasting 77 mg/dL 70-100 [facility] ([facility]) Blood Urea Nitrogen 4 mg/dL 7-18 [facility] Creatinine For GFR 0.97 mg/dL 0.55-1.30 [facility] ([facility]) Glomerular Filtration Rate Laboratory test result [facility] ([facility]) <content>Units are mL/min/1.73 m2</content>
<content></content>
<content>Chronic Kidney Disease Staging per NKF:</content>
<content></content>
<content>Stage I & II GFR >=60 Normal to Mildly Decreased</content>
<content>Stage III GFR 30- 59 Moderately Decreased</content>
<content>Stage IV GFR 15-29 Severely Decreased</content>
<content>Stage V GFR <15 Very Little GFR Left</content>
<content>ESRD GFR <15 on CAR PRE COOLER</content>
<content></content> Potassium Serum 3.1 meq/L 3.5-5.1 [facility] ([facility]) Sodium Level 145 meq/L 136-145 [facility] Chloride Level 112 meq/L 98-107 [facility] Anion Gap 6 meq/L 8-16 [facility] Calcium Level 8.3 mg/dL 8.8-10.2 [facility] Carbon Dioxide Level 27 meq/L 21-32 [facility] ( [facility] ID Date Data Source [id number] 06/27/2020 01:43:14 PM EDT [facility] Name Value Range Interpretation Code Description Data Connie rce(s) Supporting Document(s) Progress Note [facility] LKUTHk0kTmJFPzTe38/LVCrwZAOhq5XfYOddPUi2VBwlKOVfX7RpDXE0gW7uTEG0YHqJZrEbGnHwSVOc lbm [file] AgICAgICAgICAgICAgICAgICAgICAgICAgICAgICAgICAgICAgICAgICAgICAgICAgICAgICAgICAgIC AgICAgICAgICAgICAgICAgICAgICAgICAgICAgICAgICAgICANCiAgICAgICAgICAgICAgICAgICAgIC AgICAgICAgICAgICAgICAgICAgICAgICAgICAgICAg ICAgICAgICAgICAgICAgICAgICAgICAgICAgICAgICAgICAgICAgICAgICAgICANCiAgICAgICAgICAg ICAgICAgICAgICAgICAgICAgICAgICAgICAgICAgICAgICAgICAgICAgICAgICAgICAgICAgICAgICAg ICAgICAgICAgICAgICAgICAgICAgICAgICAgICANCi AgICAgICAgICAgICAgICAgICAgICAgICAgICAgICAgICAgICAgICAgICAgICAgICAgICAgICAgICAgIC AgICAgICAgICAgICAgICAgICAgICAgICAgICAgICAgICAgICAgICANCiAgICAgICAgICAgICAgICAgIC AgICAgICAgICAgICAgICAgICAgICAgICAgICAgICAg ICAgICAgICAgICAgICAgICAgICAgICAgICAgICAgICAgICAgICAgICAgICAgICAgICANCiAgICAgICAg ICAgICAgICAgICAgICAgICAgICAgICAgICAgICAgICAgICAgICAgICAgICAgICAgICAgICAgICAgICAg ICAgICAgICAgICAgICAgICAgICAgICAgICAgICAgIC ANCiAgICAgICAgICAgICAgICAgICAgICAgICAgICAgICAgICAgICAgICAgICAgICAgICAgICAgICAgIC AgICAgICAgICAgICAgICAgICAgICAgICAgICAgICAgICAgICAgICAgICANCiAgICAgICAgICAgICAgIC AgICAgICAgICAgICAgICAgICAgICAgICAgICAgICAg ICAgICAgICAgICAgICAgICAgICAgICAgICAgICAgICAgICAgICAgICAgICAgICAgICAgICANCiAgICAg ICAgICAgICAgICAgICAgICAgICAgICAgICAgICAgICAgICAgICAgICAgICAgICAgICAgICAgICAgICAg ICAgICAgICAgICAgICAgICAgICAgICAgICAgICAgIC AgICANCiAgICAgICAgICAgICAgICAgICAgICAgICAgICAgICAgICAgICAgICAgICAgICAgICAgICAgIC AgICAgICAgICAgICAgICAgICAgICAgICAgICAgICAgICAgICAgICAgICAgICANCjw/nSRlR6twwJBfks Z0D3ipMx6QKn1AMW3xc1VbOCXnBXqcjsVfMkuBIkLi VCHsPebNSis0PZkxNJ1IaYDrQ0CjT1IsIQzsKY7PIJHdJANxvZUpYSYwFNBnLtG5FUScWFliDY4SlWPa DXyhGOVbBKBpHsYgFZMgAHElBVPlPIFjICLRMJNkNRGnTyAsWEvpPF3Ku2FfxCM5WGy+Ul6NPE0qi7Lb JGkdKOXbQZ1eaq4UCXdUDbLxG6HkgmT9YTWfTJKrUq 8XNTUrVUKapWCpAXCdGFHYApDdD3UvoB06AYOJEb5+WKlqocBrGpbRWfAcZOFqf5EsOXw5QB8BVTOuYD j2fPWaVIYwM1Hug5FlYn61PZDsLzmfD0TsSW3hXpVSqBPvemizSKFxZVWrKJ0hKy9oYUHzENUuNcNkBE HEKM0KLSDwUWIfmUSoBCMzZWJVFA2SZGbwTOB3AUCv dqZakIBnAUnsHT0XQXPkvgImNsLyEOQHDTl+Dc0MRG4xk8HzRCdxIcRoHW1kpg2WVIsQTtBqT9Y3oTUv Z9H2DPpmKp5ZYXCeJSLtEzurWQCLZXtzDN7ZEW2kviX8PK1SoZHiIUHeCPVbkVFvCBh8N87ulJHlQLrm OB8DITG+Osito+Mc4KBKBxDYVhSUWpVgHmPPZBVlHmT5 ElD9RGr2WrU6OlGA68aNmzjfIcDXjlCA7NYO4sRHQqYOZGXV7LnHJfnP8nrrMiEPRxCTXBRmTyY20flL MvBMDnETI1UREjFx8GUIDlB4IitjHrgAtzjzXtHTSrYCZNMC5DPJavdxLwvDQqvYlqGM49iRjaXV6QWk 2TUqVeEP8btg4OwDWzTk3RJXKkZn7QFSCeYRRvGVTr IWG7CCHhUqXmMWsbLHYqXBFjLLX2YXSlXQPtMV8ADkSmZRQmHiKfWMZqPIFvYROosb8TZDZuVZYsRtQe SnIkJVWqPFHbXFroMBAiWIMyCOH1OOIcWWJjYI5WXjLnIXYhHDYsPApxBCLjDOAndf0EKQRrWKJrPAQ1 ZlTkWWSwZXRwGCvuYSStAVQ5SnZ4KVIgSXXeXT4PCk ZtIGTnFJM0RlOgDKElJNZklz3RXYObJKLnZSU6AGSvERPuXYCpMIhnPDPqSVG6PMJ5ZFHbAPSjUA2KRa WgNVGiSYG2WbDzCPNlPZRntc6YYELvPGYiSyA4KONaJLOvZQQzOIhiMHVmKZPsBop5AEYpGRMkEL0VWf XpQVYgMHMsBLCoZLTtMRWwge4SXZOePCAiJZb0SWJb CPHbHLDpQFfcTMEjNAO1BPH8XFZaRLCvHA1EKwVkAYQrAJPlGMDhSFHrYKDgcg5HJJZiEIDuWcJ8RQWm XKYtUQLePGrmUBZeJNY6QLNbQLBeFBVcEV3WJuZpTIZnEDT5USkaEMAdNHXubm3CSQRdDDHcUANoBGIe OROeACIiIFvfIOPeFSR1YGC1JKHpBEWrGP1QSzNpWF YdAvl0GSNfTRGfXJHirk4JLTEzLBSkCEamJrAjJUDcWCPuOLdiRHAaOZE2YOJ6ZIZmNHPxYU6FLpDiWQ FaObo8FKOrQHTqBFLdqd2XKWZoQHHsLDF6RZCsECVyWBMdKSbaPGLoHAMnBgJ7HNXxNEApNX2EDqVlPN UsLmN6AwHcYMUmFWRcww2APWMmJVUtVeQ9OBSjIOXe TNXxIQqeGJZeLTEdMaXwSZImGPWhAH3TNcIoCJEyPzL0IZcgVSOoNYVxfi7UsYQrdLjysy7SFMgSWe3F fGlhPXReXSaeIm8vdJEmPnTsRIHEHo0YtcPzSGDlGMYIOXbtESZmKWBuY1VfB6SgHDAxCALcAHAiEDUa XaLwTHLkXPR6QbyuTdP0ZuX1BfOmRBX5C8CvPNWsAk H8KWIuRPS0QvC9HgjhLDP+AR5tLRk+Cz0Yh7HqfrD7eiNbMPvuKtpxPr7OGDEYF2KENv== ID Date Data Source [id number] 06/18/2020 10:45:00 AM EDT [facility] Name Value Range Interpretation Code Description Data Connie rce(s) Supporting Document(s) SARS-CoV-2 (COVID-19) RNA [Presence] in Respiratory specimen by MINERVA with probe detection Not Detected [facility] This lab was ordered by [facility] and reported by [employer] ID Date Data Source [id number] 05/30/2020 09:23:00 AM EDT [facility] ([facility], ) Name Value Range Interpretation Code Description Data Connie rce(s) Supporting Document(s) PDFReport Laboratory test result [facility] ([facility], ) FVC-Pre 1.71 L [facility] ([facility]) FVC-Pred 3.53 L [facility] ([facility]) FVC-LLN 2.79 L [facility] ([facility]) Fev1-Pred 2.72 L [facility] ([facility]) FVC-%Pred-Pre 48 L [facility] ([facility]) Fev1-LLN 2.10 L [facility] ([facility]) Fev1-%Pred-Pre 32 L [facility] ([facility]) Fev1-Pre 0.89 L [facility] ([facility]) Fev6-%Pred-Pre 50 L [facility] ([facility]) Fev6-Pre 1.71 L [facility] ([facility]) Fev6-Pred 3.40 L [facility] ([facility]) Wdo2qqv-Bsfv 78 % [facility] ([facility]) Fev6-LLN 2.68 L [facility] ([facility]) Byi3usw-Fqb 52 % [facility] ([facility]) Xsh0vhh-THO 68 % [facility] ([facility]) Tmv8mij-%Pred-Pre 67 % [facility] ([facility]) Smw3ihq-Edz 100 % [facility] ([facility]) Njm6jnq-%Pred-Pre 103 % [facility] ([facility]) Uml9dqh-Niit 96 % [facility] ([facility]) FEFMax-%Pred-Pre 20 L/E/sec [facility] ([facility]) FEFMax-Pre 1.31 L/E/sec [facility] ([facility]) FEFMax-Pred 6.55 L/E/sec [facility] ([facility]) FEFMax-LLN 4.73 L/E/sec [facility] ([facility]) Ihi9021-Lik 0.43 L/E/sec [facility] ([facility]) Ixm5379-Lbyg 2.42 L/E/sec [facility] ([facility]) Yel0256-%Pred-Pre 17 L/E/sec [facility] ([facility]) ExpTime-Pre 6.18 sec [facility] ([facility]) Oaj0140-PDK 1.10 L/E/sec [facility] ([facility]) Awb5noe1-Wqtj 81 % [facility] ([facility]) Xjj1uxh7-%Pred-Pre 64 % [facility] ([facility]) Nqs9wij8-Yeh 52 % [facility] ([facility]) Kvu1llq6-NQV 72 % [facility] ([facility]) ID Date Data Source [id number] 04/27/2020 01:55:00 PM EST [facility] ([facility]) Name Value Range Interpretation Code Description Data Connie rce(s) Supporting Document(s) Surgical pathology study Laboratory test result [facility] ([facility]) FINAL DIAGNOSIS A - Duodenum, biopsy: Duodenal mucosa with intact villous architecture. No evidence for celiac disease. B - EG junction, biopsy: Junctional mucosa with hyperplastic polyp and focal intestinal metaplasia. No evidence for dysplasia. C - Colon, hepatic flexure, biopsy: Colonic mucosa with submucosal lipoma. D - Colon, random, biopsies: Colonic mucosa with nonspecific inflammation and focal reactive hyperplastic changes. No evidence for microscopic colitis. 05/01/2020 - [address] scan, weight loss, abdominal pain, diarrhea 04/30/2020 - 1127 GROSS DIAGNOSIS A - Received in formalin labeled "biopsy duodenum" and consists of four fragments of quezada tissue 0.5 x 0.4 x 0.2 cm. in aggregate. All in one. B - Received in formalin labeled "biopsy nodule EG junction" and consists of four fragments of quezada tissue 0.7 x 0.5 x 0.3 cm. in aggregate. All in one. C - Received in formalin labeled "biopsy lipoma hepatic flexure" and consists of three fragments of quezada tissue 0.5 x 0.3 x 0.2 cm. in aggregate. All in one. D - Received in formalin labeled "random colon biopsies" and consists of four fragments of quezada tissue 0.8 x 0.6 x 0.3 cm. in aggregate. All in one. -SV 04/30/2020 - 1127 Signed SELMA FRIED MD 05/01/2020 1335 ID Date Data Source [id number] 04/22/2020 11:00:00 AM EST [facility] Name Value Range Interpretation Code Description Data Connie rce(s) Supporting Document(s) SARS coronavirus 2 RNA Not Detected [facility] This lab was ordered by [facility] and reported by [facility]. ID Date Data Source [id number] 04/10/2020 02:45:00 PM EST [facility] ([facility], ) Name Value Range Interpretation Code Description Data Connie rce(s) Supporting Document(s) Campylobacter Laboratory test result [facility] ([facility], ) Laboratory test finding (navigational concept) Laboratory test result [facility] ([facility]) Laboratory test finding (navigational concept) Laboratory test result [facility] ([facility]) Salmonella Laboratory test result [facility] ([facility]) Laboratory test finding (navigational concept) Laboratory test result [facility] ([facility]) Laboratory test finding (navigational concept) Laboratory test result [facility] ([facility]) Laboratory test finding (navigational concept) Laboratory test result [facility] ([facility]) Laboratory test finding (navigational concept) Laboratory test result [facility] ([facility]) Laboratory test finding (navigational concept) Laboratory test result [facility] ([facility]) Laboratory test finding (navigational concept) Laboratory test result [facility] ([facility]) Laboratory test finding (navigational concept) Laboratory test result [facility] ([facility]) Laboratory test finding (navigational concept) Laboratory test result [facility] ([facility]) Laboratory test finding (navigational concept) Laboratory test result [facility] ([facility], ) Cryptosporidium Laboratory test result [facility] ([facility]) Laboratory test finding (navigational concept) Laboratory test result [facility] ([facility]) Giardia lamblia Laboratory test result [facility] ([facility]) Entamoeba histolytica Laboratory test result [facility] ([facility], ) Laboratory test finding (navigational concept) Laboratory test result [facility] ([facility]) Laboratory test finding (navigational concept) Laboratory test result [facility] ([facility]) Laboratory test finding (navigational concept) Laboratory test result [facility] ([facility]) Laboratory test finding (navigational concept) Laboratory test result [facility] ([facility]) Laboratory test finding (navigational concept) Laboratory test result [facility] ([facility]) Performed at: [address] [id number] [employer] Superintendent [employer]: Gabo Stephens MD, Phone: [phone] Not Detected ID Date Data Source [id number] 04/10/2020 02:45:00 PM EST [facility] ([facility]) Name Value Range Interpretation Code Description Data Connie rce(s) Supporting Document(s) Calprotectin [Mass/mass] in Stool 41 ug/g 0-120 Normal (applies to non-numeric results) [facility], ) <content>Concentration Interpretatio n Follow-Up</content>
<content><16 - 50 ug/g Normal None</content>
<content>>50 -120 ug/g Borderline Re-evaluate in 4-6 weeks</content>
<content>>120 ug/g Abnormal Repeat as clinically</content>
<content>indicated</content>
<content>Performed at: [facility] [place]</content>
<content>[address] [place], [place] [id number]</content>
<content>[employer]: Lilian Grider MD, Phone: [phone]</content>
<content>Performed at: [facility]</content>
<content>[address] [place], [place] [id number]</content>
<content>Shift Superintendent [employer]: Gabo Stephens MD, Phone: [phone]</content>
<content></content> ID Date Data Source [id number] 04/10/2020 02:45:00 PM EST [facility] ([facility]) Name Value Range Interpretation Code Description Data Connie rce(s) Supporting Document(s) Fats Neutral Laboratory test result Normal (applies to non -numeric results) [facility] ([facility]) <content>Normal (<60 Droplets/HPF)</cont ent>
<content></content> Fats Total Laboratory test result Normal (applies to non-n umeric results) [facility] ([facility]) <content>Normal (<100 Droplets/HPF)</con tent>
<content></content> ID Date Data Source [id number] 04/10/2020 02:45:00 PM EST [facility] ([facility]) Name Value Range Interpretation Code Description Data Connie rce(s) Supporting Document(s) Elastase.pancreatic [Mass/mass] in Stool 449 Normal (applies to non-numeric results) [facility] ([facility]) <content>Result Units: ug Elast./g</cont ent>
<content>Severe Pancreatic Insufficiency: <100</content>
<content>Moderate Pancreatic Insufficiency: 100 - 200</content>
<content>Normal: >200</content>
<content></content> ID Date Data Source [id number] 04/09/2020 01:13:00 PM EST [facility] ([facility]) Name Value Range Interpretation Code Description Data Connie rce(s) Supporting Document(s) Amylase [Enzymatic activity/volume] in Serum or Plasma 49 U/L 25-115 Normal (applies to non-numeric results) [facility] Lipoprotein lipase [Enzymatic activity/volume] in Serum or Plasm a 81 U/L 73-393 Normal (applies to non-numeric results) [facility] ([facility]) 04/11/20 (ThuApr 11) 04:06 PM SUSIE FALCON Pancreatic enzymes normal. ID Date Data Source [id number] 04/09/2020 01:13:00 PM EST [facility]) Name Value Range Interpretation Code Description Data Connie rce(s) Supporting Document(s) Tissue transglutaminase IgA Ab [Units/volume] in Serum Labor atory test result 0-3 Normal (applies to non-numeric results) [facility]) Negative 0 - 3 Weak Positive 4 - 10 Positive >10 . Tissue Transglutaminase (tTG) has been identified as the endomysial antigen. Studies have demonstr- ated that endomysial IgA antibodies have over 99% specificity for gluten sensitive enteropathy. Performed at: RN - [facility] [address] [id number] Shift Superintendent [employer]: Lilian Grider MD, Phone: [phone] IgA [Mass/volume] in Serum or Plasma 161.0 mg/dL 70-400 Normal (applies to non- numeric results) [facility] ([facility]) ID Date Data Source [id number] 04/09/2020 01:13:00 PM EST [facility]) Name Value Range Interpretation Code Description Data Connie rce(s) Supporting Document(s) Thyroid Stimulating Hormone 0.715 uIU/ML 0.358-3.740 Norm al (applies to non- numeric results) [facility] ([facility]) Free T4 1.03 ng/dL 0.76-1.46 Normal (applies to non-numeric resul ts) [facility]) 04/11/20 (ThuApr 11) 04:06 PM SUSIE TYSHAWNLANDON Thyroid function normal. ID Date Data Source [id number] 04/09/2020 01:13:00 PM EST [facility]) Name Value Range Interpretation Code Description Data Connie rce(s) Supporting Document(s) White Blood Count 7.4 10 4.0-10.0 Normal (applies to non-numeri c results) [facility] ([facility], ) Red Blood Count 5.20 10 4.00-5.40 Normal (applies to non-numeric results) [facility] ([facility], ) Hemoglobin 14.7 g/dL 12.0-15.5 Normal (applies to non-numeric resul ts) [facility]) Hematocrit 46.4 % 36.0-47.0 Normal (applies to non-numeric resul ts) [facility] ([facility]) Mean Corpuscular Hemoglobin 28.3 pg 27.0-33.0 Norm al (applies to non-numeric results) [facility] ([facility]) Mean Corpuscular Volume 89.2 fl 80.0-96.0 Normal ( applies to non-numeric results) [facility] ([facility]) Mean Corpuscular HGB Conc 31.7 g/dL 32.0-36.5 Below low normal [facility] ([facility]) Red Cell Distribution Width 19.9 % 11.5-14.5 Above high normal [facility] ([facility]) Neutrophils % 57.7 % 36.0-66.0 Normal (applies to non-numeric re sults) [facility] ([facility]) Platelet Count, Automated 294 10 150-450 Normal (applies to non-numeric results) [facility] ([facility]) [place] % 6.1 % 2.0-8.0 Normal (applies to non-numeric resul ts) [facility], ) Lymph % 34.6 % 24.0-44.0 Normal (applies to non-numeric resul ts) [facility] Eos % 0.7 % 0.0-3.0 Normal (applies to non-numeric resul ts) [facility]) Baso % 0.5 % 0.0-1.0 Normal (applies to non-numeric resul ts) [facility]) Nucleated Red Blood Cell % 0.0 % 0-0 Normal (applies to n on-numeric results) [facility]) Immature Granulocyte % 0.4 % 0-3.0 Normal (applies to non-n umeric results) [facility] ([facility]) Lymph # 2.6 10 1.5-5.0 Normal (applies to non-numeric resul ts) [facility]) Neutrophils # 4.3 10 1.5-8.5 Normal (applies to non-numeric re sults) [facility]) [place] # 0.5 10 0.0-0.8 Normal (applies to non-numeric resul ts) [facility]) Eos # 0.1 10 0.0-0.5 Normal (applies to non-numeric resul ts) [facility]) Baso # 0.0 10 0.0-0.2 Normal (applies to non-numeric resul ts) [facility]) 04/11/20 (ThuApr 11) 04:06 PM SUSIE CHAHALALLIE No significant abnormalities. ID Date Data Source [id number] 04/09/2020 01:13:00 PM EST [facility] ([facility]) Name Value Range Interpretation Code Description Data Connie rce(s) Supporting Document(s) Glucose, Fasting 86 mg/dL 70-100 Normal (applies to non-numeric results) [facility] ([facility]) Blood Urea Nitrogen 9 mg/dL 7-18 Normal (applies to non-nume sarah results) [facility] ([facility]) Creatinine For GFR 0.92 mg/dL 0.55-1.30 Normal (applies to non -numeric results) [facility] ([facility]) Glomerular Filtration Rate Laboratory test result Normal (applies to non- numeric results) [facility]) <content>Units are mL/min/1.73 m2</content>
<content></content>
<content>Chronic Kidney Disease Staging per NKF:</content>
<content></content>
<content>Stage I & II GFR >=60 Normal to Mildly Decreased</content>
<content>Stage III GFR 30- 59 Moderately Decreased</content>
<content>Stage IV GFR 15-29 Severely Decreased</content>
<content>Stage V GFR <15 Very Little GFR Left</content>
<content>ESRD GFR <15 on CAR PRE COOLER</content>
<content></content> Sodium Level 145 meq/L 136-145 Normal (applies to non-numeric res ults) [facility] ([facility], ) Potassium Serum 3.6 meq/L 3.5-5.1 Normal (applies to non-numeric results) [facility] ([facility], ) Chloride Level 112 meq/L 98-107 Above high normal [facility] ([facility]) Carbon Dioxide Level 28 meq/L 21-32 Normal (applies to non-num hoa results) [facility] ([facility]) Calcium Level 8.8 mg/dL 8.8-10.2 Normal (applies to non-numeric re sults) [facility] ([facility], ) Anion Gap 5 meq/L 8-16 Below low normal [facility] ( [facility], ) Alt/SGPT 24 U/L 12-78 Normal (applies to non-numeric resul ts) [facility] ([facility], ) Alkaline Phosphatase 137 U/L 45-117 Above high normal [facility] Ast/Sgot 22 U/L 7-37 Normal (applies to non-numeric resul ts) [facility] ([facility], ) Bilirubin,Total 0.3 mg/dL 0.2-1.0 Normal (applies to non-numeric results) [facility] ([facility], ) Total Protein 6.8 GM/DL 6.4-8.2 Normal (applies to non-numeric re sults) [facility] ([facility], ) Albumin/Globulin Ratio 1.1 1.2-2.2 Below low normal [facility] 04/11/20 (ThuApr 11) 04:04 PM SUSIE FALCON Slight elevation of Alk. Phos. Will inform patient. See triage. Albumin 3.5 GM/DL 3.2-5.2 Normal (applies to non-numeric resul ts) [facility] ([facility], ) ID Date Data Source [id number] 03/15/2020 02:26:00 PM EST [facility] Name Value Range Interpretation Code Description Data Connie rce(s) Supporting Document(s) SARS COVID ANTIGEN NEGATIVE [facility] This lab was ordered by PAULA ryan nd reported by [facility]. ID Date Data Source [id number] 01/30/2020 01:26:00 PM EST [facility] ([facility], ) Name Value Range Interpretation Code Description Data Connie rce(s) Supporting Document(s) PDFReport Laboratory test result [facility] ([facility]) FVC-Pre 2.32 L [facility] ([facility]) FVC-Pred 3.53 L [facility] ([facility]) FVC-%Pred-Pre 65 L [facility] ([facility]) FVC-LLN 2.79 L [facility] ([facility]) Fev1-%Pred-Pre 43 L [facility] ([facility]) Fev1-Pred 2.72 L [facility] ([facility]) Fev1-Pre 1.17 L [facility] ([facility]) Fev1-LLN 2.10 L [facility] ([facility]) Fev6-Pred 3.40 L [facility] ([facility]) Fev6-LLN 2.68 L [facility] ([facility]) Fev6-Pre 2.27 L [facility] ([facility]) Fev6-%Pred-Pre 66 L [facility] ([facility]) Uwn4eno-Ikt 50 % [facility] ([facility]) Tay4xzq-Rhry 78 % [facility] ([facility]) Meq3ljg-Utrt 96 % [facility] ([facility]) Hid9txq-%Pred-Pre 64 % [facility] ([facility]) Pvg9tpj-GEH 68 % [facility] ([facility]) Fst7nao-Vbr 98 % [facility] ([facility]) Aye8vfd-%Pred-Pre 101 % [facility] ([facility]) FEFMax-Pre 2.07 L/E/sec [facility] ([facility]) FEFMax-Pred 6.55 L/E/sec [facility] ([facility]) FEFMax-LLN 4.73 L/E/sec [facility] ([facility]) FEFMax-%Pred-Pre 31 L/E/sec [facility] ([facility]) Eea5395-Izdq 2.42 L/E/sec [facility] ([facility]) Nng6918-Gtp 0.51 L/E/sec [facility] ([facility]) Lub5695-%Pred-Pre 21 L/E/sec [facility] ([facility]) ExpTime-Pre 6.78 sec [facility] ([facility]) Hhk3887-QBL 1.10 L/E/sec [facility] ([facility]) Ygb2pys3-Mhym 81 % [facility] ([facility]) Fok1oju8-Rjf 52 % [facility] ([facility]) Iif5lgv6-%Pred-Pre 64 % [facility] ([facility]) Jat2aff5-IRA 72 % [facility] ([facility]) ID Date Data Source [id number] 12/30/2019 12:00:00 AM EST [facility] ([facility]) Name Value Range Interpretation Code Description Data Connie rce(s) Supporting Document(s) SARS-CoV-2 (COVID-19) RNA [Presence] in Respiratory specimen by MINERVA with probe detection negative negative Sars-cov-2 [facility] ([facility]) ID Date Data Source [id number] 12/30/2019 12:00:00 AM EST [facility] ([facility]) Name Value Range Interpretation Code Description Data Connie rce(s) Supporting Document(s) ID Date Data Source [id number] 12/30/2019 12:00:00 AM EST [facility] ([facility]) Name Value Range Interpretation Code Description Data Connie rce(s) Supporting Document(s) SARS-CoV-2 (COVID-19) RNA [Presence] in Respiratory specimen by MINERVA with probe detection negative negative Sars-cov-2 [facility] ([facility]) ID Date Data Source [id number] 12/30/2019 12:00:00 AM EST [facility] ([facility]) Name Value Range Interpretation Code Description Data Connie rce(s) Supporting Document(s) ID Date Data Source [id number] 12/30/2019 12:00:00 AM EST [facility] ([facility]) Name Value Range Interpretation Code Description Data Connie rce(s) Supporting Document(s) SARS-CoV-2 (COVID-19) RNA [Presence] in Respiratory specimen by MINERVA with probe detection negative negative Sars-cov-2 [facility] ([facility]) ID Date Data Source [id number] 12/30/2019 12:00:00 AM EST [facility] ([facility]) Name Value Range Interpretation Code Description Data Connie rce(s) Supporting Document(s) ID Date Data Source [id number] 12/30/2019 12:00:00 AM EST [facility] ([facility]) Name Value Range Interpretation Code Description Data Connie rce(s) Supporting Document(s) SARS-CoV-2 (COVID-19) RNA [Presence] in Respiratory specimen by MINERVA with probe detection negative negative Sars-cov-2 [facility] ([facility]) ID Date Data Source [id number] 12/30/2019 12:00:00 AM EST [facility] ([facility]) Name Value Range Interpretation Code Description Data Connie rce(s) Supporting Document(s) ID Date Data Source [id number] 12/30/2019 12:00:00 AM EST [facility] ([facility]) Name Value Range Interpretation Code Description Data Connie rce(s) Supporting Document(s) SARS-CoV-2 (COVID-19) RNA [Presence] in Respiratory specimen by MINERVA with probe detection negative negative Sars-cov-2 [facility] ([facility]) ID Date Data Source [id number] 12/30/2019 12:00:00 AM EST [facility] ([facility]) Name Value Range Interpretation Code Description Data Connie rce(s) Supporting Document(s) ID Date Data Source [id number] 12/30/2019 12:00:00 AM EST [facility] ([facility]) Name Value Range Interpretation Code Description Data Connie rce(s) Supporting Document(s) SARS coronavirus 2 RNA [Presence] in Res piratory specimen by MINERVA with probe detection negative negative Sars-cov-2 [facility] ([facility]) ID Date Data Source [id number] 12/30/2019 12:00:00 AM EST [facility] ([facility]) Name Value Range Interpretation Code Description Data Connie rce(s) Supporting Document(s) ID Date Data Source [id number] 12/30/2019 12:00:00 AM EST [facility] ([facility]) Name Value Range Interpretation Code Description Data Connie rce(s) Supporting Document(s) SARS coronavirus 2 RNA [Presence] in Res piratory specimen by MINERVA with probe detection negative negative Sars-cov-2 [facility] ([facility]) ID Date Data Source [id number] 12/30/2019 12:00:00 AM EST [facility] ([facility]) Name Value Range Interpretation Code Description Data Connie rce(s) Supporting Document(s) ID Date Data Source [id number] 12/30/2019 12:00:00 AM EST [facility] Name Value Range Interpretation Code Description Data Connie rce(s) Supporting Document(s) SARS-CoV-2 [facility] This lab was ordered by [facility] and reported by [email or web address]. ID Date Data Source Urinalysis, no micro 12/13/2019 09:52:01 AM EDT eCW1 ([facility]) Name Value Range Interpretation Code Description Data Connie rce(s) Supporting Document(s) trace Leukocyte eCW1 ([facility]) 5 pH eCW1 ([facility]) 1.030 Spec gravity eCW1 ([facility]) neg Nitrate eCW1 ([facility]) 30 Protein eCW1 ([facility]) neg Glucose eCW1 ([facility]) neg Blood eCW1 ([facility]) neg Ketones eCW1 ([facility]) neg Bilirubin [facility]CW1 [facility] Care) norm [facility]rob[facility] eCW1 ([facility]) yes Internal QC Acceptable (Y/N) e CW1 ([facility]) ID Date Data Source [id number] 12/10/2019 12:00:00 AM EDT POLO ([facility]) Name Value Range Interpretation Code Description Data Connie rce(s) Supporting Document(s) SARS-CoV-2 (COVID-19) RNA [Presence] in Respiratory specimen by MINERVA with probe detection negative negative Sars-cov-2 POLO ([facility]) ID Date Data Source [id number] 12/10/2019 12:00:00 AM EDT POLO ([facility]) Name Value Range Interpretation Code Description Data Connie rce(s) Supporting Document(s) ID Date Data Source [id number] 12/10/2019 12:00:00 AM EDT POLO ([facility]) Name Value Range Interpretation Code Description Data Connie rce(s) Supporting Document(s) SARS-CoV-2 (COVID-19) RNA [Presence] in Respiratory specimen by MINERVA with probe detection negative negative Sars-cov-2 POLO ([facility]) ID Date Data Source [id number] 12/10/2019 12:00:00 AM EDT POLO ([facility]) Name Value Range Interpretation Code Description Data Connie rce(s) Supporting Document(s) ID Date Data Source [id number] 12/10/2019 12:00:00 AM EDT POLO ([facility]) Name Value Range Interpretation Code Description Data Connie rce(s) Supporting Document(s) SARS-CoV-2 (COVID-19) RNA [Presence] in Respiratory specimen by MINERVA with probe detection negative negative Sars-cov-2 POLO ([facility]) ID Date Data Source [id number] 12/10/2019 12:00:00 AM EDT POLO ([facility]) Name Value Range Interpretation Code Description Data Connie rce(s) Supporting Document(s) ID Date Data Source [id number] 12/10/2019 12:00:00 AM EDT POLO ([facility]) Name Value Range Interpretation Code Description Data Connie rce(s) Supporting Document(s) SARS-CoV-2 (COVID-19) RNA [Presence] in Respiratory specimen by MINERVA with probe detection negative negative Sars-cov-2 POLO ([facility]) ID Date Data Source [id number] 12/10/2019 12:00:00 AM EDT POLO ([facility]) Name Value Range Interpretation Code Description Data Connie rce(s) Supporting Document(s) ID Date Data Source [id number] 12/10/2019 12:00:00 AM EDT POLO ([facility]) Name Value Range Interpretation Code Description Data Connie rce(s) Supporting Document(s) SARS-CoV-2 (COVID-19) RNA [Presence] in Respiratory specimen by MINERVA with probe detection negative negative Sars-cov-2 POLO ([facility]) ID Date Data Source [id number] 12/10/2019 12:00:00 AM EDT POLO ([facility]) Name Value Range Interpretation Code Description Data Connie rce(s) Supporting Document(s) ID Date Data Source [id number] 12/10/2019 12:00:00 AM EDT POLO ([facility]) Name Value Range Interpretation Code Description Data Connie rce(s) Supporting Document(s) SARS coronavirus 2 RNA [Presence] in Res piratory specimen by MINERVA with probe detection negative negative Sars-cov-2 POLO ([facility]) ID Date Data Source [id number] 12/10/2019 12:00:00 AM EDT POLO ([facility]) Name Value Range Interpretation Code Description Data Connie rce(s) Supporting Document(s) ID Date Data Source [id number] 12/10/2019 12:00:00 AM EDT POLO ([facility]) Name Value Range Interpretation Code Description Data Connie rce(s) Supporting Document(s) SARS coronavirus 2 RNA [Presence] in Res piratory specimen by MINERVA with probe detection negative negative Sars-cov-2 POLO ([facility]) ID Date Data Source [id number] 12/10/2019 12:00:00 AM EDT POLO ([facility]) Name Value Range Interpretation Code Description Data Connie rce(s) Supporting Document(s) ID Date Data Source [id number] 12/10/2019 12:00:00 AM EDT POLO ([facility]) Name Value Range Interpretation Code Description Data Connie rce(s) Supporting Document(s) SARS coronavirus 2 RNA [Presence] in Res piratory specimen by MINERVA with probe detection negative negative Sars-cov-2 POLO ([facility]) ID Date Data Source [id number] 12/10/2019 12:00:00 AM EDT POLO ([facility]) Name Value Range Interpretation Code Description Data Connie rce(s) Supporting Document(s) ID Date Data Source [id number] 12/10/2019 12:00:00 AM EDT POLO ([facility]) Name Value Range Interpretation Code Description Data Connie rce(s) Supporting Document(s) SARS coronavirus 2 RNA [Presence] in Res piratory specimen by MINERVA with probe detection negative negative Sars-cov-2 POLO ([facility]) ID Date Data Source [id number] 12/10/2019 12:00:00 AM EDT POLO ([facility]) Name Value Range Interpretation Code Description Data Connie rce(s) Supporting Document(s) ID Date Data Source [id number] 12/10/2019 12:00:00 AM EDT POLO ([facility]) Name Value Range Interpretation Code Description Data Connie rce(s) Supporting Document(s) SARS coronavirus 2 RNA [Presence] in Res piratory specimen by MINERVA with probe detection negative negative Sars-cov-2 POLO ([facility]) ID Date Data Source [id number] 12/10/2019 12:00:00 AM EDT POLO ([facility]) Name Value Range Interpretation Code Description Data Connie rce(s) Supporting Document(s) ID Date Data Source [id number] 12/10/2019 12:00:00 AM EDT POLO ([facility]) Name Value Range Interpretation Code Description Data Connie rce(s) Supporting Document(s) SARS coronavirus 2 RNA [Presence] in Res piratory specimen by MINERVA with probe detection negative negative Sars-cov-2 POLO ([facility]) ID Date Data Source [id number] 12/10/2019 12:00:00 AM EDT POLO ([facility]) Name Value Range Interpretation Code Description Data Connie rce(s) Supporting Document(s) ID Date Data Source [id number] 12/10/2019 12:00:00 AM EDT [facility] Name Value Range Interpretation Code Description Data Connie rce(s) Supporting Document(s) SARS-CoV-2 [facility] This lab was ordered by [facility] and reported by [email or web address]. Procedure Social History Code Duration Value Status Description Data Source(s ) Smoking 10/16/2020 12:00:00 AM EDT Current Smoker completed Curre nt Smoker eCW1 ([facility]) Smoking 10/16/2020 12:00:00 AM EDT Current Smoker completed Curre nt Smoker eCW1 ([facility]) Smoking 10/16/2020 12:00:00 AM EDT Current Smoker completed Curre nt Smoker eCW1 ([facility]) Smoking 10/16/2020 12:00:00 AM EDT Current Smoker completed Curre nt Smoker eCW1 ([facility]) Alcohol intake 08/29/2020 12:00:00 AM EDT Ex-drinker (finding) comp leted Ex- drinker (finding) [facility] Tobacco use and exposure 08/29/2020 12:00:00 AM EDT Never used co mpleted Never used [facility] Cigarette pack-years 08/29/2020 12:00:00 AM EDT UNK completed [facility] Cigarettes smoked current (pack per day) - Reported 08/30/19 12:00:00 AM EDT UNK completed [facility] Smoking 08/29/2020 12:00:00 AM EDT Current every day smoker co mpleted Current every day smoker [facility] Alcohol intake 08/08/2020 12:00:00 AM EDT Ex-drinker (finding) comp leted Ex- drinker (finding) [facility] Tobacco use and exposure 08/08/2020 12:00:00 AM EDT Never used co mpleted Never used [facility] Cigarettes smoked current (pack per day) - Reported 08/09/19 12:00:00 AM EDT UNK completed [facility] Smoking 08/08/2020 12:00:00 AM EDT Current every day smoker co mpleted Current every day smoker [facility] Smoking 07/31/2020 12:00:00 AM EDT Current Smoker completed Curre nt Smoker eCW1 ([facility]) Smoking 07/31/2020 12:00:00 AM EDT Current Smoker completed Curre nt Smoker eCW1 ([facility]) Smoking 07/31/2020 12:00:00 AM EDT Current Smoker completed Curre nt Smoker eCW1 ([facility]) Smoking 07/31/2020 12:00:00 AM EDT Current Smoker completed Curre nt Smoker eCW1 ([facility]) Smoking 07/31/2020 12:00:00 AM EDT Current Smoker completed Curre nt Smoker eCW1 ([facility]) Smoking 07/31/2020 12:00:00 AM EDT Current Smoker completed Curre nt Smoker eCW1 ([facility]) Smoking 07/31/2020 12:00:00 AM EDT Current Smoker completed Curre nt Smoker eCW1 ([facility]) Smoking 07/31/2020 12:00:00 AM EDT Current Smoker completed Curre nt Smoker eCW1 ([facility]) Smoking 07/31/2020 12:00:00 AM EDT Current Smoker completed Curre nt Smoker eCW1 ([facility]) Smoking 07/31/2020 12:00:00 AM EDT Current Smoker completed Curre nt Smoker eCW1 ([facility]) Alcohol intake 06/27/2020 12:00:00 AM EDT Ex-drinker (finding) comp leted Ex- drinker (finding) [facility] Smoking 04/23/2020 12:00:00 AM EST Current Smoker completed Curre nt Smoker eCW1 ([facility]) Smoking 04/23/2020 12:00:00 AM EST Current Smoker completed Curre nt Smoker eCW1 ([facility]) Smoking 04/23/2020 12:00:00 AM EST Current Smoker completed Curre nt Smoker eCW1 ([facility]) Smoking 04/23/2020 12:00:00 AM EST Current Smoker completed Curre nt Smoker eCW1 ([facility]) Smoking 04/23/2020 12:00:00 AM EST Current Smoker completed Curre nt Smoker eCW1 ([facility]) Smoking 04/23/2020 12:00:00 AM EST Current Smoker completed Curre nt Smoker eCW1 ([facility]) Smoking 04/23/2020 12:00:00 AM EST Current Smoker completed Curre nt Smoker eCW1 ([facility]) Smoking 04/23/2020 12:00:00 AM EST Current Smoker completed Curre nt Smoker eCW1 ([facility]) Smoking 12/13/2019 12:00:00 AM EDT Current Smoker completed Curre nt Smoker eCW1 ([facility]) Smoking 12/13/2019 12:00:00 AM EDT Current Smoker completed Curre nt Smoker eCW1 ([facility]) Smoking 12/13/2019 12:00:00 AM EDT Current Smoker completed Curre nt Smoker eCW1 ([facility]) Smoking 12/13/2019 12:00:00 AM EDT Current Smoker completed Curre nt Smoker eCW1 ([facility]) Smoking 12/13/2019 12:00:00 AM EDT Current Smoker completed Curre nt Smoker eCW1 ([facility]) Smoking 12/13/2019 12:00:00 AM EDT Current Smoker completed Curre nt Smoker eCW1 ([facility]) Smoking 12/13/2019 12:00:00 AM EDT Current Smoker completed Curre nt Smoker eCW1 ([facility]) Smoking 12/13/2019 12:00:00 AM EDT Current Smoker completed Curre nt Smoker eCW1 ([facility]) Vital Signs ID Date Data Source UNK Name Value Range Interpretation Code Description Data Source(s) Diastolic blood pressure 84 mm[Hg] 84 mm[Hg] MEDENT ([facility]) Systolic blood pressure 134 mm[Hg] 134 mm[Hg] M EDENT ([facility]) Body weight 100.12 [lb_av] 100.12 [lb_av] MEDEN T ([facility]) Body mass index (BMI) [Ratio] 16.7 kg/m2 16.7 k g/m2 [facility] ([facility]) Oxygen saturation in Arterial blood by Pulse oximetry 98 % 98 % [facility] ([facility]) Heart rate 81 /min 81 /min [facility] ([facility]) Body height 65 [in_i] 65 [in_i] [facility] ([facility]) 5'5" Systolic blood pressure 128 mm[Hg] 128 mm[Hg] [facility] ([facility]) Diastolic blood pressure 84 mm[Hg] 84 mm[Hg] [facility] ([facility]) Body height 66 [in_i] 66 [in_i] [facility] ([facility]) 5'6" Body weight 98.00 [lb_av] 98.00 [lb_av] [facility] ([facility]) Body mass index (BMI) [Ratio] 15.8 kg/m2 15.8 k g/m2 [facility] ([facility]) [place] body weight 130 [lb_av] 130 [lb_av] MEDEN T ([facility]) Body weight 44.453 kg 44.453 kg [facility] ([facility]) Body surface area Derived from formula 1.48 m2 1.48 m2 [facility] ([facility]) Systolic blood pressure 159 mm[Hg] 159 mm[Hg] [facility] Diastolic blood pressure 79 mm[Hg] 79 mm[Hg] [facility] ([facility]) Body temperature 98.3 [degF] 98.3 [degF] [facility] ([facility]) Body height 66 [in_i] 66 [in_i] MEDENT ([facility]) 5'6" Body weight 98.25 [lb_av] 98.25 [lb_av] MEDENT ([facility]) Body mass index (BMI) [Ratio] 15.9 kg/m2 15.9 k g/m2 [facility] ([facility]) [place] body weight 130 [lb_av] 130 [lb_av] MEDEN T ([facility]) Body weight 44.566 kg 44.566 kg [facility] ([facility]) Body surface area Derived from formula 1.48 m2 1.48 m2 [facility] ([facility]) Systolic blood pressure 162 mm[Hg] 162 mm[Hg] [facility] Diastolic blood pressure 64 mm[Hg] 64 mm[Hg] [facility] Heart rate 66 /min 66 /min [facility] Body height 165.1 cm 165.1 cm [facility] Body weight 44.815 kg 44.815 kg [facility] Body mass index (BMI) [Ratio] 16.44 kg/m2 16.44 kg/m2 [facility] Oxygen saturation in Arterial blood by Pulse oximetry 96 % 96 % [facility] Body weight 98.4 [lb_av] 98.4 [lb_av] W1 ([facility]) Body weight 44.63 kg 44.63 kg W1 ([facility]) Body height 65 [in_i] 65 [in_i] eCW1 ([facility]) Body mass index (BMI) [Ratio] 16.37 kg/m2 16.37 kg/m2 [facility] ([facility]) Heart rate 66 /min 66 /min W1 ([facility]) Respiratory rate 18 /min 18 /min eCW1 ([facility]) Body temperature 98.7 [degF] 98.7 [degF] eCW1 ( [facility]) Systolic blood pressure 154 mm[Hg] 154 mm[Hg] e CW1 ([facility]) Diastolic blood pressure 70 mm[Hg] 70 mm[Hg] eCW1 ([facility]) Systolic blood pressure 138 mm[Hg] 138 mm[Hg] [facility] Diastolic blood pressure 66 mm[Hg] 66 mm[Hg] [facility] Heart rate 65 /min 65 /min [facility] Body height 165.1 cm 165.1 cm [facility] Body weight 47.174 kg 47.174 kg [facility] Body mass index (BMI) [Ratio] 17.31 kg/m2 17.31 kg/m2 [facility] Oxygen saturation in Arterial blood by Pulse oximetry 94 % 94 % [facility] Systolic blood pressure 100 mm[Hg] 100 mm[Hg] M EDENT ([facility], ) Diastolic blood pressure 70 mm[Hg] 70 mm[Hg] [facility], ) Heart rate 58 /min 58 /min [facility] ([facility], ) Oxygen saturation in Arterial blood by Pulse oximetry 94 % 94 % [facility] ([facility], ) Body temperature 98.7 [degF] 98.7 [degF] [facility] ([facility], ) Body height 66 [in_i] 66 [in_i] [facility] ([facility], ) 5'6" Body weight 103.00 [lb_av] 103.00 [lb_av] MEDEN T ([facility], ) Body mass index (BMI) [Ratio] 16.6 kg/m2 16.6 k g/m2 [facility] ([facility], ) [place] body weight 130 [lb_av] 130 [lb_av] MEDEN T ([facility], ) Body weight 46.721 kg 46.721 kg [facility] ([facility]) Body surface area Derived from formula 1.51 m2 1.51 m2 [facility] ([facility], ) Systolic blood pressure 156 mm[Hg] 156 mm[Hg] [facility] Diastolic blood pressure 72 mm[Hg] 72 mm[Hg] [facility] Heart rate 60 /min 60 /min [facility] Body height 165.1 cm 165.1 cm [facility] Body weight 47.174 kg 47.174 kg [facility] Body mass index (BMI) [Ratio] 17.31 kg/m2 17.31 kg/m2 [facility] Oxygen saturation in Arterial blood by Pulse oximetry 94 % 94 % [facility] Diastolic blood pressure 58 mm[Hg] 58 mm[Hg] [facility] ([facility]) Body mass index (BMI) [Ratio] 16.5 kg/m2 16.5 k g/m2 [facility] ([facility]) [place] body weight 130 [lb_av] 130 [lb_av] MEDEN T ([facility]) Body weight 46.267 kg 46.267 kg [facility] ([facility]) Body surface area Derived from formula 1.50 m2 1.50 m2 [facility] ([facility]) Body height 66 [in_i] 66 [in_i] MEDENT ([facility]) 5'6" Body weight 102.00 [lb_av] 102.00 [lb_av] MEDEN T ([facility]) Body height 66 [in_i] 66 [in_i] MEDENT ([facility]) 5'6" Body weight 102.00 [lb_av] 102.00 [lb_av] MEDEN T ([facility]) Body mass index (BMI) [Ratio] 16.5 kg/m2 16.5 k g/m2 [facility] ([facility]) [place] body weight 130 [lb_av] 130 [lb_av] MEDEN T ([facility]) Body weight 46.267 kg 46.267 kg [facility] ([facility]) Body surface area Derived from formula 1.50 m2 1.50 m2 [facility] ([facility]) Systolic blood pressure 122 mm[Hg] 122 mm[Hg] M EDENT ([facility]) Body temperature 97.3 [degF] 97.3 [degF] MEDENT ([facility] ) Body height 65 [in_i] 65 [in_i] MEDENT ([facility] ) 5'5" Body mass index (BMI) [Ratio] 17.2 kg/m2 17.2 k g/m2 MEDENT ([facility] ) Systolic blood pressure 110 mm[Hg] 110 mm[Hg] M EDENT ([facility] ) Diastolic blood pressure 80 mm[Hg] 80 mm[Hg] MEDENT ([facility] ) Heart rate 88 /min 88 /min MEDENT ([facility] ) Body temperature 97.5 [degF] 97.5 [degF] MEDENT ([facility] ) Body height 65 [in_i] 65 [in_i] MEDENT ([facility] ) 5'5" Body weight 103.50 [lb_av] 103.50 [lb_av] MEDEN T ([facility] ) Body weight 105.6 [lb_av] 105.6 [lb_av] eCW1 ([facility]) Body height 65 [in_i] 65 [in_i] eCW1 ([facility]) Body mass index (BMI) [Ratio] 17.57 kg/m2 17.57 kg/m2 [facility] ([facility]) Heart rate 54 /min 54 /min eCW1 ([facility]) Respiratory rate 17 /min 17 /min eCW1 ([facility]) Body temperature 96.7 [degF] 96.7 [degF] eCW1 ( [facility]) Systolic blood pressure 193 mm[Hg] 193 mm[Hg] e CW1 ([facility]) Diastolic blood pressure 80 mm[Hg] 80 mm[Hg] eCW1 ([facility]) Systolic blood pressure 138 mm[Hg] 138 mm[Hg] M EDENT ([facility] ) Heart rate 55 /min 55 /min MEDENT ([facility] ) Body temperature 97.0 [degF] 97.0 [degF] MEDENT ([facility] ) Body height 65 [in_i] 65 [in_i] MEDENT ([facility]) 5'5" Body weight 105.00 [lb_av] 105.00 [lb_av] MEDEN T ([facility]) Body mass index (BMI) [Ratio] 17.5 kg/m2 17.5 k g/m2 MEDENT ([facility]) Oxygen saturation in Arterial blood by Pulse oximetry 96 % 96 % MEDENT ([facility]) Diastolic blood pressure 62 mm[Hg] 62 mm[Hg] MEDENT ([facility]) Diastolic blood pressure 60 mm[Hg] 60 mm[Hg] POLO ([facility]) Body height 66 [in_i] 66 [in_i] POLO ([facility]) Systolic blood pressure 118 mm[Hg] 118 mm[Hg] A THENA ([facility]) Diastolic blood pressure 60 mm[Hg] 60 mm[Hg] POLO ([facility]) Body height 66 [in_i] 66 [in_i] POLO ([facility]) Systolic blood pressure 118 mm[Hg] 118 mm[Hg] A THENA ([facility]) [place] body weight 130 [lb_av] 130 [lb_av] MEDEN T ([facility], ) Body weight 48.535 kg 48.535 kg MEDENT ([facility], ) Body surface area Derived from formula 1.53 m2 1.53 m2 MEDENT ([facility], ) Systolic blood pressure 130 mm[Hg] 130 mm[Hg] M EDENT ([facility], ) Diastolic blood pressure 62 mm[Hg] 62 mm[Hg] [facility], [facility] Heart rate 68 /min 68 /min [facility], ) Oxygen saturation in Arterial blood by Pulse oximetry 93 % 93 % [facility], ) Body temperature 98.7 [degF] 98.7 [degF] MEDENT ([facility], ) Body height 66 [in_i] 66 [in_i] MEDENT ([facility], ) 5'6" Body weight 107.00 [lb_av] 107.00 [lb_av] MEDEN T ([facility]) Body mass index (BMI) [Ratio] 17.3 kg/m2 17.3 k g/m2 [facility] ([facility]) Systolic blood pressure 110 mm[Hg] 110 mm[Hg] [facility] Diastolic blood pressure 50 mm[Hg] 50 mm[Hg] [facility] ([facility]) Body height 66 [in_i] 66 [in_i] [facility] ([facility]) 5'6" Body weight 109.00 [lb_av] 109.00 [[facility]_av] [facility] Body mass index (BMI) [Ratio] 17.6 kg/m2 17.6 k g/m2 [facility] ([facility]) [place] body weight 130 [lb_av] 130 [lb_av] [facility] Body weight 49.442 kg 49.442 kg [facility] ([facility]) Body surface area Derived from formula 1.55 m2 1.55 m2 [facility] ([facility]) Body weight 108.4 [lb_av] 108.4 [lb_av] W1 ([facility]) Body height 65 [in_i] 65 [in_i] eCW1 ([facility]) Body mass index (BMI) [Ratio] 18.04 kg/m2 18.04 kg/m2 eCW1 ([facility]) Heart rate 61 /min 61 /min eCW1 ([facility]) Respiratory rate 16 /min 16 /min eCW1 ([facility]) Body temperature 96.9 [degF] 96.9 [degF] eCW1 ( [facility]) Systolic blood pressure 162 mm[Hg] 162 mm[Hg] e CW1 ([facility]) Diastolic blood pressure 67 mm[Hg] 67 mm[Hg] eCW1 ([facility]) Systolic blood pressure 148 mm[Hg] 148 mm[Hg] [facility] Diastolic blood pressure 63 mm[Hg] 63 mm[Hg] [facility] Body height 66 [in_i] 66 [in_i] [facility] 5'6" Body weight 113.00 [lb_av] 113.00 [lb_av] MEDEN T ([facility]) Body mass index (BMI) [Ratio] 18.2 kg/m2 18.2 k g/m2 [facility] ([facility]) [place] body weight 130 [lb_av] 130 [lb_av] MEDEN T ([facility]) Body weight 51.257 kg 51.257 kg [facility] ([facility]) Body surface area Derived from formula 1.57 m2 1.57 m2 [facility] ([facility]) Body height 66 [in_i] 66 [in_i] POLO ([facility]) Body height 66 [in_i] 66 [in_i] POLO ([facility]) Body height 66 [in_i] 66 [in_i] POLO ([facility]) Body height 66 [in_i] 66 [in_i] POLO ([facility]) Systolic blood pressure 150 mm[Hg] 150 mm[Hg] [facility] Diastolic blood pressure 78 mm[Hg] 78 mm[Hg] [facility] ([facility]) Heart rate 63 /min 63 /min [facility] ([facility]) Oxygen saturation in Arterial blood by Pulse oximetry 96 % 96 % [facility] ([facility]) Body height 66 [in_i] 66 [in_i] [facility] ([facility]) 5'6" Body weight 117.00 [lb_av] 117.00 [lb_av] MEDEN T ([facility]) Body mass index (BMI) [Ratio] 18.9 kg/m2 18.9 k g/m2 [facility] ([facility]) [place] body weight 130 [lb_av] 130 [lb_av] MEDEN T ([facility]) Body weight 53.071 kg 53.071 kg [facility] ([facility]) Body surface area Derived from formula 1.59 m2 1.59 m2 MARQUITA ([facility], ) Diastolic blood pressure 67 mm[Hg] 67 mm[Hg] POLO ([facility]) Body height 66 [in_i] 66 [in_i] POLO ([facility]) Systolic blood pressure 127 mm[Hg] 127 mm[Hg] A THENA ([facility]) Diastolic blood pressure 67 mm[Hg] 67 mm[Hg] POLO ([facility]) Diastolic blood pressure 67 mm[Hg] 67 mm[Hg] POLO ([facility]) Body height 66 [in_i] 66 [in_i] POLO ([facility]) Systolic blood pressure 127 mm[Hg] 127 mm[Hg] A THENA ([facility]) Body height 66 [in_i] 66 [in_i] POLO ([facility]) Systolic blood pressure 127 mm[Hg] 127 mm[Hg] A THENA ([facility]) Diastolic blood pressure 67 mm[Hg] 67 mm[Hg] POLO ([facility]) Body height 66 [in_i] 66 [in_i] POLO ([facility]) Systolic blood pressure 127 mm[Hg] 127 mm[Hg] A THENA ([facility]) Diastolic blood pressure 67 mm[Hg] 67 mm[Hg] POLO ([facility]) Body height 66 [in_i] 66 [in_i] POLO ([facility]) Systolic blood pressure 127 mm[Hg] 127 mm[Hg] A THENA ([facility]) Diastolic blood pressure 67 mm[Hg] 67 mm[Hg] POLO ([facility]) Body height 66 [in_i] 66 [in_i] POLO ([facility]) Systolic blood pressure 127 mm[Hg] 127 mm[Hg] A THENA ([facility]) Diastolic blood pressure 67 mm[Hg] 67 mm[Hg] POLO ([facility]) Body height 66 [in_i] 66 [in_i] POLO ([facility]) Systolic blood pressure 127 mm[Hg] 127 mm[Hg] A THENA ([facility]) Body height 66 [in_i] 66 [in_i] POLO ([facility]) Systolic blood pressure 127 mm[Hg] 127 mm[Hg] A THENA ([facility]) Diastolic blood pressure 67 mm[Hg] 67 mm[Hg] POLO ([facility]) Body height 66 [in_i] 66 [in_i] POLO ([facility]) Systolic blood pressure 127 mm[Hg] 127 mm[Hg] A THENA ([facility]) Diastolic blood pressure 67 mm[Hg] 67 mm[Hg] POLO ([facility]) Body weight 121 [lb_av] 121 [lb_av] eCW1 ([facility]) Body height 65 [in_i] 65 [in_i] eCW1 ([facility]) Body mass index (BMI) [Ratio] 20.13 kg/m2 20.13 kg/m2 eCW1 ([facility]) Heart rate 69 /min 69 /min eCW1 ([facility]) Respiratory rate 17 /min 17 /min eCW1 ([facility]) Body temperature 97.0 [degF] 97.0 [degF] eCW1 ( [facility]) Systolic blood pressure 146 mm[Hg] 146 mm[Hg] e CW1 ([facility]) Diastolic blood pressure 69 mm[Hg] 69 mm[Hg] eCW1 ([facility]) ID Date Data Source [id number] 06/27/2020 01:43:14 PM EDT [facility] Name Value Range Interpretation Code Description Data Source(s) WEIGHT RECORDED 107 lb 107 lb [facility] Body height Measured 65 in 65 in [facility] Patient Treatment Plan of Care Planned Activity Planned Date Details Description Data Source (s) Glucometer 10/19/2020 12:00:00 AM EDT e CW1 ([facility]) Lancets - 10/19/2020 12:00:00 AM EDT e CW1 ([facility]) Contour Next Test - 10/19/2020 12:00:00 AM EDT eCW1 ([facility]) Isopropyl Alcohol 0.7 ML/ML Medicated Pad 10/19/2020 12:00:00 AM ED T eCW1 ([facility]) Glucometer 10/19/2020 12:00:00 AM EDT e CW1 ([facility]) Lancets - 10/19/2020 12:00:00 AM EDT e CW1 ([facility]) Contour Next Test - 10/19/2020 12:00:00 AM EDT eCW1 ([facility]) Isopropyl Alcohol 0.7 ML/ML Medicated Pad 10/19/2020 12:00:00 AM ED T eCW1 ([facility]) Glucometer 10/19/2020 12:00:00 AM EDT e CW1 ([facility]) Isopropyl Alcohol 0.7 ML/ML Medicated Pad 10/19/2020 12:00:00 AM ED T eCW1 ([facility]) Lancets - 10/19/2020 12:00:00 AM EDT e CW1 ([facility]) Contour Next Test - 10/19/2020 12:00:00 AM EDT eCW1 ([facility]) Glucometer 10/19/2020 12:00:00 AM EDT e CW1 ([facility]) Lancets - 10/19/2020 12:00:00 AM EDT e CW1 ([facility]) Contour Next Test - 10/19/2020 12:00:00 AM EDT eCW1 ([facility]) Isopropyl Alcohol 0.7 ML/ML Medicated Pad 10/19/2020 12:00:00 AM ED T eCW1 ([facility]) potassium chloride SA (K-DUR,KLOR-CON) 20 MEQ tablet 021 12:00:00 AM EDT [facility] Cephalexin 500 MG Oral Capsule 10/16/2020 12:00:00 AM EDT eCW1 ([facility]) Cephalexin 500 MG Oral Capsule 10/16/2020 12:00:00 AM EDT eCW1 ([facility]) Cephalexin 500 MG Oral Capsule 10/16/2020 12:00:00 AM EDT eCW1 ([facility]) Cephalexin 500 MG Oral Capsule 10/16/2020 12:00:00 AM EDT eCW1 ([facility]) albuterol (PROVENTIL HFA;VENTOLIN HFA) 108 (90 Base) M CG/ACT inhaler 09/04/2020 12:00:00 AM EDT [facility] PARoxetine (PAXIL) 30 MG tablet 08/20/2020 12:00:00 AM EDT [facility] 30 ACTUAT umeclidinium 0.0625 MG/ACTUAT / vilanterol 0.025 MG/ACTUAT Dry Powder Inhaler [Anoro] 08/15/2020 12:00:00 AM EDT [facility] 30 ACTUAT fluticasone furoate 0.2 MG/ACTUAT Dry Powder Inhaler [Arnuity] 08/15/2020 12:00:00 AM EDT [facility] Unifine Pentips Plus 31G X 5 MM MISC 08/11/2020 12:00:00 AM EDT [facility] Abaloparatide (Tymlos) 3120 MCG/1.56ML SOPN 08/06/2020 12:00:00 AM EDT [facility] Klor-Con M20 20 MEQ 08/06/2020 12:00:00 AM EDT eCW1 ([facility]) Klor-Con M20 20 MEQ 08/06/2020 12:00:00 AM EDT eCW1 ([facility]) Klor-Con M20 20 MEQ 08/06/2020 12:00:00 AM EDT eCW1 ([facility]) Klor-Con M20 20 MEQ 08/06/2020 12:00:00 AM EDT eCW1 ([facility]) Klor-Con M20 20 MEQ 08/06/2020 12:00:00 AM EDT eCW1 ([facility]) Klor-Con M20 20 MEQ 08/06/2020 12:00:00 AM EDT eCW1 ([facility]) Klor-Con M20 20 MEQ 08/06/2020 12:00:00 AM EDT eCW1 ([facility]) Klor-Con M20 20 MEQ 08/06/2020 12:00:00 AM EDT eCW1 ([facility]) Klor-Con M20 20 MEQ 08/06/2020 12:00:00 AM EDT eCW1 ([facility]) Klor-Con M20 20 MEQ 08/06/2020 12:00:00 AM EDT eCW1 ([facility]) Klor-Con M20 20 MEQ 08/06/2020 12:00:00 AM EDT eCW1 ([facility]) Tymlos 3120 MCG/1.56ML Subcutaneous Solution Pen-injec tor 08/06/2020 12:00:00 AM [facility] ospital gabapentin 400 MG Oral Capsule 07/03/2020 12:00:00 AM EDT [facility] Famotidine 40 MG Oral Tablet 06/03/2020 12:00:00 AM EDT [facility] Famotidine 40 MG Oral Tablet 06/03/2020 12:00:00 AM [facility] topiramate 100 MG Oral Tablet 06/02/2020 12:00:00 AM EDT [facility] clopidogrel 75 MG Oral Tablet 06/02/2020 12:00:00 AM EDT [facility] topiramate 100 MG Oral Tablet 06/02/2020 12:00:00 AM [facility] clopidogrel 75 MG Oral Tablet 06/02/2020 12:00:00 AM [facility] 30 ACTUAT umeclidinium 0.0625 MG/ACTUAT / vilanterol 0.025 MG/ACTUAT Dry Powder Inhaler [Anoro] 06/01/2020 12:00:[address] [facility] Albuterol Sulfate HFA 108 (90 Base) MCG/ ACT Inhalation Aerosol Solution (PROVENTIL HFA) 06/01/2020 12:00:[address] [facility] 30 ACTUAT fluticasone furoate 0.2 MG/ACTUAT Dry Powder Inhaler [Arnuity] 05/30/2020 12:00:00 AM T [facility] Ondansetron 4 MG Oral Tablet 05/22/2020 12:00:00 AM EDT [facility] PARoxetine HCl 30 MG Oral Tablet (PAXIL) 05/22/2020 12:00:00 AM [facility] Ondansetron 4 MG Oral Tablet 05/22/2020 12:00:00 AM [facility] gabapentin 400 MG Oral Capsule 04/12/2020 12:00:00 AM [facility] Ondansetron 4 MG Oral Tablet 03/20/2020 12:00:00 AM EST eCW1 ([facility]) Ondansetron 4 MG Oral Tablet 03/20/2020 12:00:00 AM EST eCW1 ([facility]) Ondansetron 4 MG Oral Tablet 03/20/2020 12:00:00 AM EST eCW1 ([facility]) Ondansetron 4 MG Oral Tablet 03/20/2020 12:00:00 AM EST eCW1 ([facility]) Ondansetron 4 MG Oral Tablet 03/20/2020 12:00:00 AM EST eCW1 ([facility]) Ondansetron 4 MG Oral Tablet 03/20/2020 12:00:00 AM EST eCW1 ([facility]) Ondansetron 4 MG Oral Tablet 03/20/2020 12:00:00 AM EST eCW1 ([facility]) Ondansetron 4 MG Oral Tablet 03/20/2020 12:00:00 AM EST eCW1 ([facility]) Ondansetron 4 MG Oral Tablet 03/20/2020 12:00:00 AM EST eCW1 ([facility]) atorvastatin 80 MG Oral Tablet 03/15/2020 12:00:00 AM EST [facility] atorvastatin 80 MG Oral Tablet 03/15/2020 12:00:00 AM [facility] tizanidine 4 MG Oral Tablet 03/07/2020 12:00:00 AM EST [facility] tizanidine 4 MG Oral Tablet 03/07/2020 12:00:00 AM EST [facility] ezetimibe 10 MG Oral Tablet 02/22/2020 12:00:00 AM EST [facility] ezetimibe 10 MG Oral Tablet 02/22/2020 12:00:00 AM EST [facility] Ciprofloxacin 500 MG Oral Tablet 12/29/2019 12:00:00 AM EST eCW1 ([facility]) Ciprofloxacin 500 MG Oral Tablet 12/29/2019 12:00:00 AM EST eCW1 ([facility]) Ciprofloxacin 500 MG Oral Tablet 12/29/2019 12:00:00 AM EST eCW1 ([facility]) Ciprofloxacin 500 MG Oral Tablet 12/29/2019 12:00:00 AM EST eCW1 ([facility]) Ciprofloxacin 500 MG Oral Tablet 12/29/2019 12:00:00 AM EST eCW1 ([facility]) Ciprofloxacin 500 MG Oral Tablet 12/29/2019 12:00:00 AM EST eCW1 ([facility]) tizanidine 4 MG Oral Tablet 12/13/2019 12:00:00 AM EDT eCW1 ([facility]) Sulfamethoxazole 800 MG / Trimethoprim 160 MG Oral Tab let [Bactrim] 12/13/2019 12:00:00 AM EDT eCW1 ([facility]) tizanidine 4 MG Oral Tablet 12/13/2019 12:00:00 AM EDT eCW1 ([facility]) Sulfamethoxazole 800 MG / Trimethoprim 160 MG Oral Tab let [Bactrim] 12/13/2019 12:00:00 AM EDT eCW1 ([facility]) tizanidine 4 MG Oral Tablet 12/13/2019 12:00:00 AM EDT eCW1 ([facility]) Sulfamethoxazole 800 MG / Trimethoprim 160 MG Oral Tab let [Bactrim] 12/13/2019 12:00:00 AM EDT eCW1 ([facility]) tizanidine 4 MG Oral Tablet 12/13/2019 12:00:00 AM EDT eCW1 ([facility]) Sulfamethoxazole 800 MG / Trimethoprim 160 MG Oral Tab let [Bactrim] 12/13/2019 12:00:00 AM EDT eCW1 ([facility]) tizanidine 4 MG Oral Tablet 12/13/2019 12:00:00 AM EDT eCW1 ([facility]) Sulfamethoxazole 800 MG / Trimethoprim 160 MG Oral Tab let [Bactrim] 12/13/2019 12:00:00 AM EDT eCW1 ([facility]) tizanidine 4 MG Oral Tablet 12/13/2019 12:00:00 AM EDT eCW1 ([facility]) Sulfamethoxazole 800 MG / Trimethoprim 160 MG Oral Tab let [Bactrim] 12/13/2019 12:00:00 AM EDT eCW1 ([facility]) tizanidine 4 MG Oral Tablet 12/13/2019 12:00:00 AM EDT eCW1 ([facility]) Sulfamethoxazole 800 MG / Trimethoprim 160 MG Oral Tab let [Bactrim] 12/13/2019 12:00:00 AM EDT eCW1 ([facility]) tizanidine 4 MG Oral Tablet 12/13/2019 12:00:00 AM EDT eCW1 ([facility]) Sulfamethoxazole 800 MG / Trimethoprim 160 MG Oral Tab let [Bactrim] 12/13/2019 12:00:00 AM EDT eCW1 ([facility]) Sulfamethoxazole 800 MG / Trimethoprim 160 MG Oral Tablet POLO ([facility]) prednisone 20 mg tabs ATHEN A ([facility]) Phenazopyridine hydrochloride 200 MG Oral Tablet POLO ([facility]) pantoprazole 20 MG Delayed Release Oral Tablet POLO ([facility]) Omeprazole 20 MG Delayed Release Oral Capsule POLO ([facility]) NITROFURANTOIN, MACROCRYSTALS 25 MG / Ni trofurantoin, Monohydrate 75 MG Oral Capsule [facility] methylprednisolone 4 mg tablets in a dose pack POLO ([facility]) lidocaine 5 % topical patch POLO ([facility]) Albuterol 0.833 MG/ML / Ipratropium [place] 0.167 MG/ML Inhalant So lution POLO ([facility]) Fluzone Quad (PF) 60 mcg (15 m cg x 4)/0.5 mL IM suspension INJECT DIRECTED POLO [facility] Doxycycline Monohydrate 100 MG Oral Capsule POLO ([facility]) Cyclobenzaprine hydrochloride 10 MG Oral Tablet POLO ([facility]) Alprazolam 0.5 MG Oral Tablet POLO ([facility]) prednisone 20 mg tabs ATHEN A ([facility]) Phenazopyridine hydrochloride 200 MG Oral Tablet POLO ([facility]) pantoprazole 20 MG Delayed Release Oral Tablet POLO ([facility]) Omeprazole 20 MG Delayed Release Oral Capsule POLO ([facility]) NITROFURANTOIN, MACROCRYSTALS 25 MG / Ni trofurantoin, Monohydrate 75 MG Oral Capsule POLO ([facility]) methylprednisolone 4 mg tablets in a dose pack POLO ([facility]) lidocaine 5 % topical patch POLO ([facility]) Albuterol 0.833 MG/ML / Ipratropium [place] 0.167 MG/ML Inhalant So lution POLO ([facility]) Fluzone Quad (PF) 60 mcg (15 m cg x 4)/0.5 mL IM suspension INJECT DIRECTED POLO [facility] Doxycycline Monohydrate 100 MG Oral Capsule POLO ([facility]) Cyclobenzaprine hydrochloride 10 MG Oral Tablet POLO ([facility]) Alprazolam 0.5 MG Oral Tablet POLO ([facility]) Sulfamethoxazole 800 MG / Trimethoprim 160 MG Oral Tablet POLO ([facility]) prednisone 20 mg tabs ATHEN A ([facility]) Phenazopyridine hydrochloride 200 MG Oral Tablet POLO ([facility]) pantoprazole 20 MG Delayed Release Oral Tablet POLO ([facility]) Omeprazole 20 MG Delayed Release Oral Capsule POLO ([facility]) NITROFURANTOIN, MACROCRYSTALS 25 MG / Ni trofurantoin, Monohydrate 75 MG Oral Capsule [facility] methylprednisolone 4 mg tablets in a dose pack POLO ([facility]) lidocaine 5 % topical patch POLO ([facility]) Albuterol 0.833 MG/ML / Ipratropium [place] 0.167 MG/ML Inhalant So lution POLO ([facility]) Fluzone Quad (PF) 60 mcg (15 m cg x 4)/0.5 mL IM suspension INJECT DIRECTED POLO [facility] Famotidine 40 MG Oral Tablet POLO ([facility]) Doxycycline Monohydrate 100 MG Oral Capsule POLO ([facility]) Cyclobenzaprine hydrochloride 10 MG Oral Tablet POLO ([facility]) Sulfamethoxazole 800 MG / Trimethoprim 160 MG Oral Tablet POLO ([facility]) fluticasone furoate 0.2 MG/ACTUAT Dry Powder Inhaler POOL ([facility]) Alprazolam 0.5 MG Oral Tablet POLO ([facility]) albuterol sulfate HFA 90 mcg/actuation a erosol inhaler INHALE TWO PUFFS BY MOUTH FOUR TIMES A DAY NEEDED ATHE NA ([facility]) Doxycycline Monohydrate 100 MG Oral Capsule POLO ([facility]) Cyclobenzaprine hydrochloride 10 MG Oral Tablet POLO ([facility]) fluticasone furoate 0.2 MG/ACTUAT Dry Powder Inhaler POLO ([facility]) umeclidinium 0.0625 MG/ACTUAT / vilanterol 0.025 MG/ACTUAT D ry Powder Inhaler POLO ([facility]) Alprazolam 0.5 MG Oral Tablet POLO ([facility]) Sulfamethoxazole 800 MG / Trimethoprim 160 MG Oral Tablet POLO ([facility]) prednisone 20 mg tabs ATHEN A ([facility]) Phenazopyridine hydrochloride 200 MG Oral Tablet POLO ([facility]) pantoprazole 20 MG Delayed Release Oral Tablet POLO ([facility]) Omeprazole 20 MG Delayed Release Oral Capsule POLO ([facility]) NITROFURANTOIN, MACROCRYSTALS 25 MG / Ni trofurantoin, Monohydrate 75 MG Oral Capsule POLO ([facility]) methylprednisolone 4 mg tablets in a dose pack POLO ([facility]) lidocaine 5 % topical patch POLO ([facility]) Albuterol 0.833 MG/ML / Ipratropium [place] 0.167 MG/ML Inhalant So lution POLO ([facility]) Famotidine 40 MG Oral Tablet POLO ([facility]) Doxycycline Monohydrate 100 MG Oral Capsule POLO ([facility]) Cyclobenzaprine hydrochloride 10 MG Oral Tablet POLO ([facility]) fluticasone furoate 0.2 MG/ACTUAT Dry Powder Inhaler POLO ([facility]) umeclidinium 0.0625 MG/ACTUAT / vilanterol 0.025 MG/ACTUAT D ry Powder Inhaler POLO ([facility]) Alprazolam 0.5 MG Oral Tablet POLO ([facility]) Sulfamethoxazole 800 MG / Trimethoprim 160 MG Oral Tablet POLO ([facility]) prednisone 20 mg tabs ATHEN A ([facility]) Phenazopyridine hydrochloride 200 MG Oral Tablet POLO ([facility]) pantoprazole 20 MG Delayed Release Oral Tablet POLO ([facility]) Omeprazole 20 MG Delayed Release Oral Capsule POLO ([facility]) NITROFURANTOIN, MACROCRYSTALS 25 MG / Ni trofurantoin, Monohydrate 75 MG Oral Capsule POLO ([facility]) methylprednisolone 4 mg tablets in a dose pack POLO ([facility]) lidocaine 5 % topical patch POLO ([facility]) Albuterol 0.833 MG/ML / Ipratropium [place] 0.167 MG/ML Inhalant So lution POLO ([facility]) Cyclobenzaprine hydrochloride 10 MG Oral Tablet POLO ([facility]) fluticasone furoate 0.2 MG/ACTUAT Dry Powder Inhaler POLO ([facility]) umeclidinium 0.0625 MG/ACTUAT / vilanterol 0.025 MG/ACTUAT D ry Powder Inhaler POLO ([facility]) Alprazolam 0.5 MG Oral Tablet POLO ([facility]) Sulfamethoxazole 800 MG / Trimethoprim 160 MG Oral Tablet POLO ([facility]) prednisone 20 mg tabs ATHEN A ([facility]) Phenazopyridine hydrochloride 200 MG Oral Tablet POLO ([facility]) pantoprazole 20 MG Delayed Release Oral Tablet POLO ([facility]) Omeprazole 20 MG Delayed Release Oral Capsule POLO ([facility]) NITROFURANTOIN, MACROCRYSTALS 25 MG / Ni trofurantoin, Monohydrate 75 MG Oral Capsule POLO ([facility]) methylprednisolone 4 mg tablets in a dose pack POLO ([facility]) lidocaine 5 % topical patch POLO ([facility]) Albuterol 0.833 MG/ML / Ipratropium [place] 0.167 MG/ML Inhalant So lution POLO ([facility]) Fluzone Quad 2588-3080 (PF) 60 mcg (15 m cg x 4)/0.5 mL IM suspension INJECT DIRECTED POLO ([facility]) Famotidine 40 MG Oral Tablet POLO ([facility]) Doxycycline Monohydrate 100 MG Oral Capsule POLO ([facility]) Cyclobenzaprine hydrochloride 10 MG Oral Tablet POLO ([facility]) fluticasone furoate 0.2 MG/ACTUAT Dry Powder Inhaler POLO ([facility]) umeclidinium 0.0625 MG/ACTUAT / vilanterol 0.025 MG/ACTUAT D ry Powder Inhaler POLO ([facility]) Alprazolam 0.5 MG Oral Tablet POLO ([facility]) albuterol sulfate HFA 90 mcg/actuation a erosol inhaler INHALE TWO PUFFS BY MOUTH FOUR TIMES A DAY NEEDED ATHE NA ([facility]) Sulfamethoxazole 800 MG / Trimethoprim 160 MG Oral Tablet POLO ([facility]) prednisone 20 mg tabs ATHEN A ([facility]) Phenazopyridine hydrochloride 200 MG Oral Tablet POLO ([facility]) pantoprazole 20 MG Delayed Release Oral Tablet POLO ([facility]) Omeprazole 20 MG Delayed Release Oral Capsule POLO ([facility]) NITROFURANTOIN, MACROCRYSTALS 25 MG / Ni trofurantoin, Monohydrate 75 MG Oral Capsule POLO ([facility]) methylprednisolone 4 mg tablets in a dose pack POLO ([facility]) lidocaine 5 % topical patch POLO ([facility]) Albuterol 0.833 MG/ML / Ipratropium [place] 0.167 MG/ML Inhalant So lution POLO ([facility]) Famotidine 40 MG Oral Tablet POLO ([facility]) Sulfamethoxazole 800 MG / Trimethoprim 160 MG Oral Tablet POLO ([facility]) prednisone 20 mg tabs ATHEN A ([facility]) Phenazopyridine hydrochloride 200 MG Oral Tablet POLO ([facility]) pantoprazole 20 MG Delayed Release Oral Tablet POLO ([facility]) lidocaine 5 % topical patch OPLO ([facility]) Albuterol 0.833 MG/ML / Ipratropium [place] 0.167 MG/ML Inhalant So lution POLO ([facility]) Fluzone Quad [id number] (PF) 60 mcg (15 m cg x 4)/0.5 mL IM suspension INJECT DIRECTED POLO ([facility]) Famotidine 40 MG Oral Tablet POLO ([facility]) Doxycycline Monohydrate 100 MG Oral Capsule POLO ([facility]) Cyclobenzaprine hydrochloride 10 MG Oral Tablet POLO ([facility]) fluticasone furoate 0.2 MG/ACTUAT Dry Powder Inhaler POLO ([facility]) umeclidinium 0.0625 MG/ACTUAT / vilanterol 0.025 MG/ACTUAT D ry Powder Inhaler POLO ([facility]) Alprazolam 0.5 MG Oral Tablet POLO ([facility]) albuterol sulfate HFA 90 mcg/actuation a erosol inhaler INHALE TWO PUFFS BY MOUTH FOUR TIMES A DAY NEEDED ATHE NA ([facility]) Famotidine 40 MG Oral Tablet POLO ([facility]) Doxycycline Monohydrate 100 MG Oral Capsule POLO ([facility]) Cyclobenzaprine hydrochloride 10 MG Oral Tablet POLO ([facility]) fluticasone furoate 0.2 MG/ACTUAT Dry Powder Inhaler POLO ([facility]) umeclidinium 0.0625 MG/ACTUAT / vilanterol 0.025 MG/ACTUAT D ry Powder Inhaler POLO ([facility]) Alprazolam 0.5 MG Oral Tablet POLO ([facility]) Sulfamethoxazole 800 MG / Trimethoprim 160 MG Oral Tablet POLO ([facility]) prednisone 20 mg tabs ATHEN A ([facility]) Phenazopyridine hydrochloride 200 MG Oral Tablet POLO ([facility]) pantoprazole 20 MG Delayed Release Oral Tablet POLO ([facility]) Omeprazole 20 MG Delayed Release Oral Capsule POLO ([facility]) NITROFURANTOIN, MACROCRYSTALS 25 MG / Ni trofurantoin, Monohydrate 75 MG [facility]ule [facility] methylprednisolone 4 mg tablets in a dose pack POLO ([facility]) lidocaine 5 % topical patch POLO ([facility]) Albuterol 0.833 MG/ML / Ipratropium [place] 0.167 MG/ML Inhalant So lution POLO ([facility]) Famotidine 40 MG Oral Tablet POLO ([facility]) Doxycycline Monohydrate 100 MG Oral Capsule POLO ([facility]) Omeprazole 20 MG Delayed Release Oral Capsule POLO ([facility]) NITROFURANTOIN, MACROCRYSTALS 25 MG / Ni trofurantoin, Monohydrate 75 MG Oral Capsule [facility] ([facility]) methylprednisolone 4 mg tablets in a dose pack POLO ([facility])
--- OUTSIDE RECORDS SUMMARY | 2020-12-11 09:02 | CCD ---
Author Author [facility] Organization [facility] Address Unknown Phone Unavailable Care Team Providers Care Member Of The Legislative Assembly Name Role Phone Jonathan Valente MD Unavailable [...] Uma PA Unavailable Unavailable CHRIS, B BRANDT LEADERSHIP COACH Unavailable Unavailable CHRIS, B BRANDT LEADERSHIP COACH Unavailable Unavailable CHRIS, B BRANDT LEADERSHIP COACH Unavailable Unavailable CHRIS, B BRANDT LEADERSHIP COACH Unavailable Unavailable CHRIS, B BRANDT LEADERSHIP COACH Unavailable Unavailable CHRIS, B BRANDT LEADERSHIP COACH Unavailable Unavailable CHRIS, B BRANDT LEADERSHIP COACH Unavailable Unavailable CHRIS, B BRANDT LEADERSHIP COACH Unavailable Unavailable CHRIS, B BRANDT LEADERSHIP COACH Unavailable Unavailable CHRIS, B BRANDT LEADERSHIP COACH Unavailable Unavailable CHRIS, B BRANDT LEADERSHIP COACH Unavailable Unavailable CHRIS, B BRANDT LEADERSHIP COACH Unavailable Unavailable CHRIS, B BRANDT LEADERSHIP COACH Unavailable Unavailable CHRIS, B BRANDT LEADERSHIP COACH Unavailable Unavailable CHRIS, B BRANDT LEADERSHIP COACH Unavailable Unavailable CHRIS, B BRANDT LEADERSHIP COACH Unavailable Unavailable CHRIS, B BRANDT LEADERSHIP COACH Unavailable Unavailable CHRIS, B BRANDT LEADERSHIP COACH Unavailable Unavailable CHRIS, B BRANDT LEADERSHIP COACH Unavailable Unavailable CHRIS, B BRANDT LEADERSHIP COACH Unavailable Unavailable CHRIS, B BRANDT LEADERSHIP COACH Unavailable Unavailable CHRIS, B BRANDT LEADERSHIP COACH Unavailable Unavailable CHRIS, B BRANDT LEADERSHIP COACH Unavailable Unavailable CHRIS, B BRANDT LEADERSHIP COACH Unavailable Unavailable CHRIS, B BRANDT LEADERSHIP COACH Unavailable Unavailable CHRIS, B BRANDT LEADERSHIP COACH Unavailable Unavailable CHRIS, B BRANDT LEADERSHIP COACH Unavailable Unavailable CHRIS, B BRANDT LEADERSHIP COACH Unavailable Unavailable CHRIS, B BRANDT LEADERSHIP COACH Unavailable Unavailable CHRIS, B BRANDT LEADERSHIP COACH Unavailable Unavailable CHRIS, B BRANDT LEADERSHIP COACH Unavailable Unavailable CHRIS, B BRANDT LEADERSHIP COACH Unavailable Unavailable CHRIS, B BRANDT LEADERSHIP COACH Unavailable Unavailable CHRIS, B BRANDT LEADERSHIP COACH Unavailable Unavailable CHRIS, B BRANDT LEADERSHIP COACH Unavailable Unavailable CHRIS, B BRANDT LEADERSHIP COACH Unavailable Unavailable CHRIS, B BRANDT LEADERSHIP COACH Unavailable Unavailable CHRIS, B BRANDT LEADERSHIP COACH Unavailable Unavailable CHRIS, B BRANDT LEADERSHIP COACH Unavailable Unavailable CHRIS, B BRANDT LEADERSHIP COACH Unavailable Unavailable CHRIS, B BRANDT LEADERSHIP COACH Unavailable Unavailable CHRIS, B BRANDT LEADERSHIP COACH Unavailable Unavailable CHRIS, B BRANDT LEADERSHIP COACH Unavailable Unavailable CHRIS, B BRANDT LEADERSHIP COACH Unavailable Unavailable CHRIS, B BRANDT LEADERSHIP COACH Unavailable Unavailable CHRIS, B BRANDT LEADERSHIP COACH Unavailable Unavailable CHRIS, B BRANDT LEADERSHIP COACH Unavailable Unavailable CHRIS, B BRANDT LEADERSHIP COACH Unavailable Unavailable CHRIS, B BRANDT LEADERSHIP COACH Unavailable Unavailable CHRIS, B BRANDT LEADERSHIP COACH Unavailable Unavailable CHRIS, B BRANDT LEADERSHIP COACH Unavailable Unavailable CHRIS, B BRANDT LEADERSHIP COACH Unavailable Unavailable CHRIS, B BRANDT LEADERSHIP COACH Unavailable Unavailable CHRIS, B BRANDT LEADERSHIP COACH Unavailable Unavailable CHRIS, B BRANDT LEADERSHIP COACH Unavailable Unavailable CHRIS, B BRANDT LEADERSHIP COACH Unavailable Unavailable CHRIS, B BRANDT LEADERSHIP COACH Unavailable Unavailable CHRIS, B BRANDT LEADERSHIP COACH Unavailable Unavailable CHRIS, B BRANDT LEADERSHIP COACH Unavailable Unavailable CHRIS, B BRANDT LEADERSHIP COACH Unavailable Unavailable CHRIS, B BRANDT LEADERSHIP COACH Unavailable Unavailable CHRIS, B BRANDT LEADERSHIP COACH Unavailable Unavailable Carmelita Jason MD Unavailable Unavailable [...] ANISHA DO Unavailable Unavailable Edison, R Geena HOUSEKEEPING ATTENDANT Unavailable Unavailable Edison, R Geena HOUSEKEEPING ATTENDANT Unavailable Unavailable Edison, R Geena HOUSEKEEPING ATTENDANT Unavailable Unavailable Edison, R Geena HOUSEKEEPING ATTENDANT Unavailable Unavailable Edison, R Geena HOUSEKEEPING ATTENDANT Unavailable Unavailable Edison, R Geena HOUSEKEEPING ATTENDANT Unavailable Unavailable Edison, R Geena HOUSEKEEPING ATTENDANT Unavailable Unavailable Edison, R Geena HOUSEKEEPING ATTENDANT Unavailable Unavailable Edison, R Geena HOUSEKEEPING ATTENDANT Unavailable Unavailable Edison, R Geena HOUSEKEEPING ATTENDANT Unavailable Unavailable Edison, R Geena HOUSEKEEPING ATTENDANT Unavailable Unavailable Edison, R Geena HOUSEKEEPING ATTENDANT Unavailable Unavailable Edison, R Geena HOUSEKEEPING ATTENDANT Unavailable Unavailable Edison, R Geena HOUSEKEEPING ATTENDANT Unavailable Unavailable Edison, R Geena HOUSEKEEPING ATTENDANT Unavailable Unavailable Edison, R Geena HOUSEKEEPING ATTENDANT Unavailable Unavailable Edison, R Geena HOUSEKEEPING ATTENDANT Unavailable Unavailable Edison, R Geena HOUSEKEEPING ATTENDANT Unavailable Unavailable Edison, R Geena HOUSEKEEPING ATTENDANT Unavailable Unavailable Edison, R Geena HOUSEKEEPING ATTENDANT Unavailable Unavailable Edison, R Geena HOUSEKEEPING ATTENDANT Unavailable Unavailable Edison, R Geena HOUSEKEEPING ATTENDANT Unavailable Unavailable Edison, R Geena HOUSEKEEPING ATTENDANT Unavailable Unavailable Edison, R Geena HOUSEKEEPING ATTENDANT Unavailable Unavailable Edison, R Geena HOUSEKEEPING ATTENDANT Unavailable Unavailable Edison, R Geena HOUSEKEEPING ATTENDANT Unavailable Unavailable Edison, R Geena HOUSEKEEPING ATTENDANT Unavailable Unavailable Edison, R Geena HOUSEKEEPING ATTENDANT Unavailable Unavailable Edison, R Geena HOUSEKEEPING ATTENDANT Unavailable Unavailable Edison, R Geena HOUSEKEEPING ATTENDANT Unavailable Unavailable Edison, R Geena HOUSEKEEPING ATTENDANT Unavailable Unavailable Edison, R Geena HOUSEKEEPING ATTENDANT Unavailable Unavailable Edison, R Geena HOUSEKEEPING ATTENDANT Unavailable Unavailable Edison, R Geena HOUSEKEEPING ATTENDANT Unavailable Unavailable Edison, R Geena HOUSEKEEPING ATTENDANT Unavailable Unavailable Edison, R Geena HOUSEKEEPING ATTENDANT Unavailable Unavailable Edison, R Geena HOUSEKEEPING ATTENDANT Unavailable Unavailable Edison, R Geena HOUSEKEEPING ATTENDANT Unavailable Unavailable Edison, R Geena HOUSEKEEPING ATTENDANT Unavailable Unavailable Edison, R Geena HOUSEKEEPING ATTENDANT Unavailable Unavailable MEDENT_[id number], NA Unavailable [phone] Benedict M Ely HOUSEKEEPING ATTENDANT Unavailable Unavailable Benedict M Ely HOUSEKEEPING ATTENDANT Unavailable Unavailable Jumalon, M Ely HOUSEKEEPING ATTENDANT Unavailable Unavailable Jumalon, M Ely HOUSEKEEPING ATTENDANT Unavailable Unavailable Jumalon, M Ely HOUSEKEEPING ATTENDANT Unavailable Unavailable Jumalon, M Ely HOUSEKEEPING ATTENDANT Unavailable Unavailable Jumalon, M Ely HOUSEKEEPING ATTENDANT Unavailable Unavailable Jumalon, M Ely HOUSEKEEPING ATTENDANT Unavailable Unavailable Jumalon, M Ely HOUSEKEEPING ATTENDANT Unavailable Unavailable Jumalon, M Ely HOUSEKEEPING ATTENDANT Unavailable Unavailable Jumalon, M Ely HOUSEKEEPING ATTENDANT Unavailable Unavailable Jumalon, M Ely HOUSEKEEPING ATTENDANT Unavailable Unavailable Jumalon, M Ely HOUSEKEEPING ATTENDANT Unavailable Unavailable Jumalon, M Ely HOUSEKEEPING ATTENDANT Unavailable Unavailable Jumalon, M Ely HOUSEKEEPING ATTENDANT Unavailable Unavailable Jumalon, M Ely HOUSEKEEPING ATTENDANT Unavailable Unavailable Jumalon, M Ely HOUSEKEEPING ATTENDANT Unavailable Unavailable Jumalon, M Ely HOUSEKEEPING ATTENDANT Unavailable Unavailable Jumalon, M Ely HOUSEKEEPING ATTENDANT Unavailable Unavailable Jumalon, M Ely HOUSEKEEPING ATTENDANT Unavailable Unavailable Jumalon, M Ely HOUSEKEEPING ATTENDANT Unavailable Unavailable Jumalon, M Ely HOUSEKEEPING ATTENDANT Unavailable Unavailable Jumalon, M Ely HOUSEKEEPING ATTENDANT Unavailable Unavailable Jumalon, M Ely HOUSEKEEPING ATTENDANT Unavailable Unavailable Jumalon, M Ely HOUSEKEEPING ATTENDANT Unavailable Unavailable Jumalon, M Ely HOUSEKEEPING ATTENDANT Unavailable Unavailable Jumalon, M Ely HOUSEKEEPING ATTENDANT Unavailable Unavailable Jumalon, M Ely HOUSEKEEPING ATTENDANT Unavailable Unavailable Jumalon, M Ely HOUSEKEEPING ATTENDANT Unavailable Unavailable Jumalon, M Ely HOUSEKEEPING ATTENDANT Unavailable Unavailable Vandalia, V WILL PA-C Unavailable Unavailable [place]andal[place], V WILL PA-C Unavailable Unavailable [place], V WILL PA-C Unavailable Unavailable [place], V WILL PA-C Unavailable Unavailable Sudeep, V WILL PA-C Unavailable Unavailable [place], V WILL PA-C Unavailable Unavailable [place], V WILL PA-C Unavailable Unavailable [place], V WILL PA-C Unavailable Unavailable [place], V WILL PA-C Unavailable Unavailable Sudeep, V WILL PA-C Unavailable Unavailable [place], V WILL PA-C Unavailable Unavailable [place], V WILL PA-C Unavailable Unavailable [place], V WILL PA-C Unavailable Unavailable [place], V WILL PA-C Unavailable Unavailable SALCIDO, M [...] M CHASIDY PA Unavailable Unavailable SALCIDO, M CHSAIDY PA Unavailable Unavailable SALCIDO, M CHASIDY PA [...] is protected by Article 27-F of the [place] Public Health law. If you continue you may have access to information: Regarding HIV / AIDS; Provided by facilities licensed or operated by the [facility] Office of Mental Health; or Provided by the [facility] Office for People With Developmental Disabilities. If such information is present, then the following [facility] mandated warning applies: This information has [...] law may result in a fine or correction sentence or both. A general authorization for the release of medical or other information is NOT sufficient authorization for further disc losure. Allergies and Adverse Reactions Type Description Substance Reaction Status Data Source(s ) Propensity to adverse reactions NO KNOWN ALLERGIES NO KNOWN ALLERGIES [facility] Propensity to adverse reactions VARENICLINE Varenicline Ac tive [facility] Propensity to adverse reactions BUPROPION Bupropion Acti ve [facility] Family History Family Member Name Family Member Gender Family Member Status Date o f Status Description Data Source(s) Unknown Unknown Problem MEDENT ([facility]) Unknown Male Problem MEDENT ([facility]) () - age 57 Encounters Encounter Providers Location Date Indications Data Source(s ) Unknown [address] [facility] [address] 11/19/2020 12:00:00 AM EDT eCW1 ([facility]) Outpatient Referrer: WILL [email or web address] 12:00:00 AM EDT [facility] Outpatient Attender: BRANDT PEREZ NP Physical Therapy 08:45:00 AM EDT MEDENT ([facility]) Outpatient Attender: Susie Johnston/Estiven/Sandra flynn/Taylor 11/09/2020 09:00:00 AM EDT MEDENT ([facility] spann, ) Unknown [address] [facility] [address] 11/09/2020 12:00:00 AM EDT eCW1 ([facility]) Outpatient Attender: TAYLOR Johnston/Estiven/Amandeep/Reindl 11/08/2020 02:15:00 PM EDT MEDENT ([facility], ) Outpatient Referrer: Geena RICHARDS.JIN-[email or web address] 0 11/07/2020 01:47:44 PM EDT - 11/07/2020 03:35:46 PM EDT [facility] Outpatient Attender: WILL NICOLE-SJP.JIN 12:00:00 AM EDT - 10/29/2020 01:58:42 PM EDT [facility] Outpatient Referrer: WILL NICOLE-SJP.JIN 09/2020 12:00:00 AM EDT [facility] Unknown [address] [facility] [address] 10/17/2020 12:00:00 AM EDT eCW1 ([facility]) Outpatient [address] [facility] [address] 10/16/2020 12:00:00 AM EDT eCW1 ([facility]) Unknown [address] [facility] [address] 10/09/2020 12:00:00 AM EDT eCW1 ([facility]) Outpatient Attender: WILL MCCALLJIN-SJP.JIN 12:00:00 AM EDT - 09/13/2020 03:14:55 PM EDT [facility] Unknown [address] [facility] [place] [address] 09/10/2020 12:00:00 AM EDT eCW1 ([facility]) Outpatient Attender: ANISHA Bauman/Estiven/Amandeep/Reindl 09/04/2020 02:00:00 PM EDT MEDENT ([facility], ) Unknown [address] [facility] [address] 08/30/2020 12:00:00 AM EDT eCW1 ([facility]) Outpatient Attender: WILL HEDRICK-Feleciaferrer: Stephanie Hogan HOUSEKEEPING ATTENDANT SJP.JIN-SJP.JIN 08/29/2020 12:00:00 AM EDT - 08/30/2020 08:42:23 AM EDT [facility] Unknown [address] [facility] [address] 08/29/2020 12:00:00 AM EDT eCW1 ([facility]) Unknown [address] [facility] [address] 08/21/2020 12:00:00 AM EDT eCW1 ([facility]) Outpatient Attender: Susie Johnston/Estiven/Sandra flynn/Taylor 08/13/2020 09:00:00 AM EDT MEDENT ([facility]) Outpatient Attender: YAIMA JUÁREZ_[id number] Physical Therapy 08/10/2020 11 :00:00 AM EDT MEDENT ([facility]) Outpatient Attender: Uma HEDRICK [id number] 08/08/2020 12:00:00 [facility] Unknown [address] [facility] [address] 08/08/2020 12:00:00 AM EDT eCW1 ([facility]) Outpatient Attender: BRANDT PEREZ NP Physical Therapy 11:45:00 AM EDT MEDENT ([facility]) Unknown [address] [facility] [address] 08/06/2020 12:00:00 AM EDT eCW1 ([facility]) Unknown [address] [facility] [address] 08/03/2020 12:00:00 AM EDT eCW1 ([facility]) Outpatient [address] [facility] [address] 07/31/2020 12:00:00 AM EDT [facility] Unknown [address] [facility] [address] 07/30/2020 12:00:00 AM EDT eCW1 ([facility]) Duy Valente MD: [address], [place] [address], Ph. Attender: Duy Valente MD [place] - [facility] 07/23/2020 12:00:00 AM EDT POLO ([facility]) Office Visit Attender: BRANDT PEREZ LEADERSHIP COACH Physical Therapy 12:45:00 PM EDT MEDENT ([facility]) Outpatient Attender: BRANDT PEREZ NP Physical Therapy 10:30:00 AM EDT MEDENT ([facility]) Unknown [address] [facility] [address] 07/18/2020 12:00:00 AM EDT eCW1 ([facility]) Ely Mcmullen, LEADERSHIP COACH: [address], [place] [address], Ph. Attender: Ely Mcmullen [facility] - [facility] 07/06/2020 12:00:00 AM EDT ROBERT ERWIN ([facility]) Ely Mcmullen, LEADERSHIP COACH: [address], [place] [address], Ph. Attender: Ely Mcmullen [facility] 07/06/2020 12:00:00 AM EDT ATHE NA ([facility]) Unknown [address] [facility] [address] 06/28/2020 12:00:00 AM EDT eCW1 ([facility]) Outpatient Att[facility]: [facility] 12:00:00 AM EDT - 06/27/2020 11:20:52 AM EDT Cerebral aneurysm, nonruptured [facility] Cerebral aneurysm, nonruptured Office Visit Attender: Carmelita Jason MD Main office - [place] 06/22/2020 09:45:00 AM EDT MEDENT ([facility] ) Unknown [address] [facility], [place] [address] 06/21/2020 12:00:00 AM EDT eCW1 ([facility]) Outpatient Attender: Uma HEDRICK 06/20/2020 12:00:00 AM EDT [facility] Unknown [address] [facility] [address] 06/18/2020 12:00:00 AM EDT eCW1 ([facility]) Unknown [address] [facility] [address] 06/18/2020 12:00:00 AM EDT eCW1 ([facility]) Outpatient Attender: CHASIDY Johnston/Estiven/Amandeep/Rein dl 05/30/2020 09:30:00 AM EDT MEDENT ([facility] eHctor morales, PRINCESS) Unknown [address] [facility] [address] 05/21/2020 12:00:00 AM EDT eCW1 ([facility]) Outpatient Attender: Susie Johnston/Estiven/A ngel/Reindl 05/11/2020 11:30:00 AM EDT MEDENT ([facility] PRINCESS Honeycutt) Unknown [address] [facility] [address] 04/25/2020 12:00:00 AM EST eCW1 ([facility]) Outpatient [address] [facility] [address] 04/23/2020 12:00:00 AM EST eCW1 ([facility]) Office Visit Attender: Carmelita Jason MD Main office - [place] 04/18/2020 10:30:00 AM EST MEDENT ([facility]) Outpatient Attender: Susieargentina Johnston/Estiven/Sandra flynn/Taylor 04/09/2020 10:30:00 AM EST MEDENT ([facility] PRINCESS [place]) Unknown [address] [facility] [address] 03/20/2020 12:00:00 AM EST eCW1 ([facility]) Ely Mcmullen, LEADERSHIP COACH: [address], [place] [address], Ph. Attender: Ely Mcmullen [facility] 03/14/2020 12:00:00 AM EST ATHE NA ([facility]) Ely Mcmullen, LEADERSHIP COACH: [address], [place] [address], Ph. Attender: Ely Mcmullen [facility] 03/14/2020 12:00:00 AM EST ATHE NA ([facility]) [facility]y [facility], LEADERSHIP COACH: [address], [place] [address], Ph. Attender: Ely Mcmullen [facility] 03/14/2020 12:00:00 AM EST ATHE NA ([facility]) Outpatient Attender: Carmelita Jason MD [facility] [place] 03/07/2020 08:00:00 AM EST MEDENT ([facility] Rohini marx, PRINCESS) Unknown [address] [facility], [place] [address] 03/06/2020 12:00:00 AM EST eCW1 ([facility]) Unknown [address] [facility] [address] 02/23/2020 12:00:00 AM EST eCW1 ([facility]) Duy Valente MD: [address], [place], [place] [address], Ph. Attender: Duy Valente [place] - [facility] 02/20/2020 12:00:00 AM EST POLO ([facility]) Duy Valente MD: [address], [place] [address], Ph. Attender: Duy Valente [place] [facility] 02/20/2020 12:00:00 AM EST POLO ([facility]) Duy Valente MD: [address], [place] [address], Ph. Attender: Duy Valente [place] [facility] 02/20/2020 12:00:00 AM EST POLO ([facility]) Duy Valente MD: [address], [place] [address], Ph. Attender: Duy Valente [place] [facility] 02/20/2020 12:00:00 AM EST POLO ([facility]) Outpatient Attender: CHASIDY Johnston/Estiven/Amandeep/Luan dl 01/30/2020 01:00:00 PM EST MEDENT ([facility]) Ely Mcmullen, LEADERSHIP COACH: [address], [place] [address], Ph. Attender: Ely Mcmullen [facility] 01/25/2020 12:00:00 AM EST ATHE NA ([facility]) Ely Mcmullen, LEADERSHIP COACH: [address], [place] [address], Ph. Attender: Ely Mcmullen [facility] - [facility] 01/25/2020 12:00:00 AM EST ATHE NA ([facility]) Ely Mcmullen, LEADERSHIP COACH: [address], [place] [address], Ph. Attender: Ely Mcmullen [facility] - [facility] 01/25/2020 12:00:00 AM EST ATHE NA ([facility]) Ely Mcmullen, LEADERSHIP COACH: [address], [place] [address], Ph. Attender: Ely Mcmullen [facility] - [facility] 01/25/2020 12:00:00 AM EST ATHE NA ([facility]) Ely Mcmullen, LEADERSHIP COACH: [address], [place] [address], Ph. Attender: Ely Mcmullen [facility] - [facility] 01/25/2020 12:00:00 AM EST ATHE NA ([facility]) Unknown [address] [facility] [address] 01/10/2020 12:00:00 AM EST eCW1 ([facility]) Duy Valente MD: [address], [place] [address], Ph. Attender: Duy Valente [place] - [facility] 01/05/2020 12:00:00 AM EST POLO ([facility]) Duy Valente MD: [address], [place] [address], Ph. Attender: Duy Valente [place] [facility] 01/05/2020 12:00:00 AM EST POLO ([facility]) Duy Valente MD: [address], [place] [address], Ph. Attender: Duy Valente [place] [facility] 01/05/2020 12:00:00 AM EST POLO ([facility]) Duy Valente MD: [address], [place] [address], Ph. Attender: Duy Valente [place] - [facility] 01/05/2020 12:00:00 AM EST POLO ([facility]) Duy Valente MD: [address], [place] [address], Ph. Attender: Duy Valente [place] - [facility] 01/05/2020 12:00:00 AM EST POLO ([facility]) Duy Valente MD: [address], [place] [address], Ph. Attender: Duy Valente MD [place] - [facility] 01/05/2020 12:00:00 AM EST POLO ([facility]) Duy Valente MD: [address], [place] [address], Ph. Attender: Duy Valente MD [place] - [facility] 01/05/2020 12:00:00 AM EST POLO ([facility]) Unknown [address] [facility], [facility] [address] 01/02/2020 12:00:00 AM EST eCW1 ([facility]) Duy Valente MD: [address], [place] [address], Ph. [phone] Attender: Duy Valente [place] - [facility] 12/30/2019 12:00:00 AM EST POLO ([facility]) Duy Valente MD: [address], [address], [place] [address], Ph. [phone] Attender: Duy Valente MD [place] - [facility] 12/30/2019 12:00:00 AM EST POLO ([facility]) Duy Valente MD: [address], [address], [place] [address], Ph. [phone] Attender: Duy MULTANI - [facility] 12/30/2019 12:00:00 AM EST POLO ([facility]) Duy Valente MD: [address], [address], [place] [address], Ph. [phone] Attender: Duy MULTANI - [facility] 12/30/2019 12:00:00 AM EST POLO ([facility]) Duy Valente MD: [address] [address], [address], [place] [address], Ph. [phone] Attender: D[place] Valente [place] - [facility] 12/30/2019 12:00:00 AM EST POLO ([facility]) Duy Valente MD: [id number] [address], [address], [place] [address], Ph. [phone] Attender: Duy MUTLANI - [facility] 12/30/2019 12:00:00 AM EST POLO ([facility]) Duy Valente MD: 31419 [address], [address], [place] [address], Ph. [phone] Attender: Duy MULTANI - [facility] 12/30/2019 12:00:00 AM EST POLO ([facility]) Duy Valente MD: 64060 [address], [place] [address], Ph. [phone] Attender: Duy Valente [place] - [facility] 12/30/2019 12:00:00 AM EST POLO ([facility]) Ely Mcmullen, LEADERSHIP COACH: [address], [place] [address], Ph. Attender: Ely Mcmullen [facility] 12/28/2019 12:00:00 AM EST ATHE NA ([facility]) Ely Mcmullen, LEADERSHIP COACH: [address]38 [address], [facility] [place] [address], Ph. Attender: Ely Mcmullen [facility] 12/28/2019 12:00:00 AM EST ATHE NA ([facility]) Ely Mcmullen, LEADERSHIP COACH: [address]174 [address], [place] [address], Ph. Attender: Ely Mcmullen [facility] 12/28/2019 12:00:00 AM EST ATHE NA ([facility]) Ely Mcmullen, LEADERSHIP COACH: [address]55 [address], [place] [address], Ph. Attender: Ely Mcmullen [facility] 12/28/2019 12:00:00 AM EST ATHE NA ([facility]) Ely Jones Jeanekoffisara, LEADERSHIP COACH: [address]326 [address], [place] [address], Ph. Attender: Ely Mcmullen HOUSEKEEPING ATTENDANT [place] - [facility] 12/28/2019 12:00:00 AM EST ATHE NA ([facility]) Ely Mcmullen, LEADERSHIP COACH: [address], [place] [address], Ph. Attender: Ely Mcmullen [facility] - [facility] 12/28/2019 12:00:00 AM EST ATHE NA ([facility]) Ely Mcmullen, LEADERSHIP COACH: [address]20 [address], [place] [address], Ph. Attender: Ely Mcmullen [facility] - [facility] 12/28/2019 12:00:00 AM EST ATHE NA ([facility]) Ely Mcmullen, LEADERSHIP COACH: [address], [place] [address], Ph. Attender: Ely Mcmullen [facility] - [facility] 12/28/2019 12:00:00 AM EST ATHE NA ([facility]) Unknown [address] [facility], [facility] [address] 12/28/2019 12:00:00 AM EST eCW1 ([facility]) Ely Mcmullen, LEADERSHIP COACH: [address], [place] [address], Ph. Attender: Ely Mcmullen [facility] - [facility] 12/28/2019 12:00:00 AM EST ATHE NA ([facility]) Unknown [address] [facility] [address] 12/26/2019 12:00:00 AM EST eCW1 ([facility]) Duy Valente MD: 22591 [address], [place] [address], Ph. Attender: Duy Valente [place] - [facility] 12/15/2019 12:00:00 AM EDT POLO ([facility]) Duy Valente MD: 23791 [address], [address], [place] [address], Ph. Attender: Duy Valente [place] - [facility] 12/15/2019 12:00:00 AM EDT POLO ([facility]) Duy Valente MD: 07360 [address], [address], [place] [address], Ph. Attender: Duy Valente [place] - [facility] 12/15/2019 12:00:00 AM EDT POLO ([facility]) Duy Valente MD: 79938 [address], [address], [place] [address], Ph. Attender: Duy MULTANI - [facility] 12/15/2019 12:00:00 AM EDT POLO ([facility]) Duy Valente MD: 04134 [address], [address], [place] [address], Ph. Attender: Duy MULTANI - [facility] 12/15/2019 12:00:00 AM EDT POLO ([facility]) Duy Valente MD: 91886 [address], [address], [place] [address], Ph. Attender: Duy Valente [place] - [facility] 12/15/2019 12:00:00 AM EDT POLO ([facility]) Duy Valente MD: 62259 [address], [address], [place] [address], Ph. Attender: Duy Valente [place] - [facility] 12/15/2019 12:00:00 AM EDT POLO ([facility]) Duy Valente MD: 33931 [address], [address], [place] [address], Ph. Attender: Duy Valente [place] - [facility] 12/15/2019 12:00:00 AM EDT POLO ([facility]) Duy Valente MD: 76350 [address], [address], [place] [address], Ph. Attender: Duy Valente [place] - [facility] 12/15/2019 12:00:00 AM EDT POLO ([facility]) Duy Valente MD: 41358 [address], [address], [place] [address], Ph. Attender: Duy MULTANI - [facility] 12/15/2019 12:00:00 AM EDT POLO ([facility]) Duy Valente MD: 38180 [address], [address], [place] [address], Ph. Attender: Duy MULTANI - [facility] 12/14/2019 12:00:00 AM EDT POLO ([facility]) Duy Valente MD: 89316 [address], [address], [place] [address], Ph. Attender: Duy MULTANI - [facility] 12/14/2019 12:00:00 AM EDT POLO ([facility]) Duy Valente MD: 85410 [address], [address], [place] [address], Ph. Attender: Duy Valente [place] - [facility] 12/14/2019 12:00:00 AM EDT POLO ([facility]) Duy Valente MD: 98777 [address], [address], [place] [address], Ph. Attender: Duy MULTANI - [facility] 12/14/2019 12:00:00 AM EDT POLO ([facility]) Duy Valente MD: 38294 [address], [address], [place] [address], Ph. Attender: Duy Valente MD [place] - [facility] 12/14/2019 12:00:00 AM EDT POLO ([facility]) Duy Valente MD: 90495 [address], [address], [place] [address], Ph. Attender: Duy MULTANI - [facility] 12/14/2019 12:00:00 AM EDT POLO ([facility]) Duy Valente MD: 13070 [address], [address], [place] [address], Ph. Attender: Duy MULTANI - [facility] 12/14/2019 12:00:00 AM EDT POLO ([facility]) Duy Valente MD: 94042 [address], [address], [place] [address], Ph. Attender: Duy MULTANI - [facility] 12/14/2019 12:00:00 AM EDT POLO ([facility]) Duy Valente MD: 68803 [address], [address], [place] [address], Ph. Attender: Duy Valente MD [place] - [facility] 12/14/2019 12:00:00 AM EDT POLO ([facility]) Duy Valente MD: 96207 [address], [place] [address], Ph. Attender: Duy Valente MD [place] - [facility] 12/14/2019 12:00:00 AM EDT POLO ([facility]) Duy Valente MD: 34895 [address], [place] [address], Ph. Attender: Duy Valente MD [place] - [facility] 12/14/2019 12:00:00 AM EDT POLO ([facility]) Outpatient [address] [facility] [address] 12/13/2019 12:00:00 AM EDT eCW ([facility]) Duy Valente MD: 91829 [address], [place] [address], Ph. [phone] Attender: Duy Valente [place] - [facility] 12/09/2019 12:00:00 AM EDT POLO ([facility]) Duy Valente MD: 50942 [address], [place] [address], Ph. [phone] Attender: Duy MULTANI - [facility] 12/09/2019 12:00:00 AM EDT POLO ([facility]) Duy Valente MD: 35633 [address], [place] [address], Ph. [phone] Attender: Duy MULTANI - [facility] 12/09/2019 12:00:00 AM EDT POLO ([facility]) Duy Valente MD: 45555 [address], [address], [place] [address], Ph. [phone] Attender: Duy Valente MD [place] - [facility] 12/09/2019 12:00:00 AM EDT POLO ([facility]) Duy Valente MD: 66701 [address], [address], [place] [address], Ph. [phone] Attender: Duy Valente MD [place] - [facility] 12/09/2019 12:00:00 AM EDT POLO ([facility]) Duy Valente MD: 38980 [address], [address], [place] [address], Ph. [phone] Attender: Duy Valente MD [place] - [facility] 12/09/2019 12:00:00 AM EDT POLO ([facility]) Duy Valente MD: 06932 [address], [address], [place] [address], Ph. [phone] Attender: Duy Valente MD [place] - [facility] 12/09/2019 12:00:00 AM EDT POLO ([facility]) Duy Valente MD: 40968 [address], [address], [place] [address], Ph. [phone] Attender: Duy Valente MD [place] - [facility] 12/09/2019 12:00:00 AM EDT POLO ([facility]) Duy Valente MD: 61907 [address], [address], [place] [address], Ph. [phone] Attender: Duy Valente MD [place] - [facility] 12/09/2019 12:00:00 AM EDT POLO ([facility]) Duy Valente MD: 97479 [address], [address], [place] [address], Ph. [phone] Attender: Duy Valente MD [place] - [facility] 12/09/2019 12:00:00 AM EDT POLO ([facility]) Duy Valente MD: 31948 [address], [address], [place] [address], Ph. [phone] Attender: Duy Valente MD [place] - [facility] 12/09/2019 12:00:00 AM EDT POLO ([facility]) Duy Valente MD: 19913 [address], [address], [place] [address], Ph. [phone] Attender: Duy Valente MD [place] - [facility] 12/09/2019 12:00:00 AM EDT POLO ([facility]) Ely Mcmullen, LEADERSHIP COACH: 66768 [address], [place] [address], Ph. Attender: Ely Mcmullen [facility] 11/22/2019 12:00:00 AM EDT ATHShy NA ([facility]) Ely Mcmullen, LEADERSHIP COACH: 99965 [address], [place] [address], Ph. Attender: Ely Mcmullen [facility] 11/22/2019 12:00:00 AM EDT ATHE NA ([facility]) Ely Mcmullen, LEADERSHIP COACH: 48163 [address], [address], [place] [address], Ph. Attender: Ely Mcmullen [facility] - [facility] 11/22/2019 12:00:00 AM EDT ATHShy NA ([facility]) Ely Mcmullen, LEADERSHIP COACH: 39984 [address], [address], [place] [address], Ph. Attender: Ely Mcmullen [facility] - [facility] 11/22/2019 12:00:00 AM EDT ATHE NA ([facility]) Ely Mcmullen, LEADERSHIP COACH: 57010 [address], [place] [address], Ph. Attender: Ely Mcmullen [facility] - [facility] 11/22/2019 12:00:00 AM EDT ATHE NA ([facility]) Ely Mcmullen, LEADERSHIP COACH: 57947 [address], [place] [address], Ph. Attender: Ely Mcmullen [facility] - [facility] 11/22/2019 12:00:00 AM EDT ATHE NA ([facility]) Ely Mcmullen, LEADERSHIP COACH: 46923 [address], [place] [address], Ph. Attender: Ely Mcmullen [facility] - [facility] 11/22/2019 12:00:00 AM EDT ATHE NA ([facility]) Ely Mcmullen, LEADERSHIP COACH: 04489 [address], [place] [address], Ph. Attender: Ely Mcmullen [facility] - [facility] 11/22/2019 12:00:00 AM EDT ATHE NA ([facility]) Ely Mcmullen, LEADERSHIP COACH: 26742 [address], [place] [address], Ph. Attender: Ely Mcmullen [facility] - [facility] 11/22/2019 12:00:00 AM EDT ATHE NA ([facility]) Ely Mcmullen, LEADERSHIP COACH: 91552 [address], [place] [address], Ph. Attender: Ely Mcmullen [facility] - [facility] 11/22/2019 12:00:00 AM EDT ATHE NA ([facility]) Ely Mcmullen, LEADERSHIP COACH: 84111 [address], [address], [place] [address], Ph. Attender: Ely Mcmullen [facility] - [facility] 11/22/2019 12:00:00 AM EDT ATHShy NA ([facility]) Ely Mcmullen, LEADERSHIP COACH: 42855 [address], [place] [address], Ph. Attender: Ely Mcmullen [facility] - [facility] 11/22/2019 12:00:00 AM EDT ATHE NA ([facility]) Ely Mcmullen, LEADERSHIP COACH: 83077 [address], [place] [address], Ph. Attender: Ely Mcmullen [facility] - [facility] 11/22/2019 12:00:00 AM EDT ATHE NA ([facility]) Unknown [address] [facility] [address] 11/21/2019 12:00:00 AM EDT eCW ([facility]) Duy Valente MD: 93140 [address], [place] [address], Ph. Attender: Duy Valente [place] - [facility] 10/18/2019 12:00:00 AM EDT POLO ([facility]) Duy Valente MD: 06582 [address], [address], [place] [address], Ph. Attender: Duy Valente MD [place] - [facility] 10/18/2019 12:00:00 AM EDT POLO ([facility]) Duy Valente MD: 90730 [address], [address], [place] [address], Ph. Attender: Duy Valente MD [place] - [facility] 10/18/2019 12:00:00 AM EDT POLO ([facility]) Duy Valente MD: 26422 [address], [address], [place] [address], Ph. Attender: Duy MULTANI - [facility] 10/18/2019 12:00:00 AM EDT POLO ([facility]) Duy Valente MD: 21616 [address], [address], [place] [address], Ph. Attender: Duy MULTANI - [facility] 10/18/2019 12:00:00 AM EDT POLO ([facility]) Duy Valente MD: 34884 [address], [address], [place] [address], Ph. Attender: Duy MULTANI - [facility] 10/18/2019 12:00:00 AM EDT POLO ([facility]) Duy Valente MD: 91696 [address], [address], [place] [address], Ph. Attender: Duy MULTANI - [facility] 10/18/2019 12:00:00 AM EDT POLO ([facility]) Duy Valente MD: 61091 [address], [address], [place] [address], Ph. Attender: Duy Valente MD [place] - [facility] 10/18/2019 12:00:00 AM EDT POLO ([facility]) Duy Valente MD: 39456 [address], [address], [place] [address], Ph. Attender: Duy Valente MD [place] - [facility] 10/18/2019 12:00:00 AM EDT POLO ([facility]) Duy Valente MD: 12909 [address], [address], [place] [address], Ph. Attender: Duy Valente MD [place] - [facility] 10/18/2019 12:00:00 AM EDT POLO ([facility]) Duy Valente MD: 16376 [address], [address], [place] [address], Ph. Attender: Duy MULTANI - [facility] 10/18/2019 12:00:00 AM EDT POLO ([facility]) Duy Valente MD: 67177 [address], [address], [place] [address], Ph. Attender: Duy MULTANI - [facility] 10/18/2019 12:00:00 AM EDT POLO ([facility]) Duy Valente MD: 36961 [address], [address], [place] [address], Ph. Attender: Duy MULTANI - [facility] 10/18/2019 12:00:00 AM EDT POLO ([facility]) Duy Valente MD: 39399 [address], [address], [place] [address], Ph. Attender: Duy Valente MD [place] - [facility] 10/18/2019 12:00:00 AM EDT POLO ([facility]) Immunizations Vaccine Date Status Description Data Source(s) VARICELLA-ZOSTER GE/AS01B/PF 07/08/2020 12:00:00 AM EDT completed [facility] COVID-19 VACCINE Moderna 06/18/2020 12:00:00 AM EDT completed [facility] Vaccine Series Complete: YESThis Data wa s Submitted to [facility] Via [employer]. COVID-19 VACC,MRNA(MODERNA)/PF 06/18/2020 12:00:00 AM EDT completed [facility] COVID-19 VACCINE Moderna 05/17/2020 12:00:00 AM EDT completed [facility] Vaccine Series Complete: NOThis Data was Submitted to [facility] Via [employer]. COVID-19 VACCINE, MRNA-1273, LNP-S (MODERNA)/PF 05/17/2020 1 2:00:00 AM EDT completed [facility] INFLUENZA VIRUS VACCINE QUADRIVAL (6 MOS AND UP)/PF 12/06/2019 12:00:00 AM EDT completed [facility] PNEUMOCOCCAL 23-VALENT POLYSACCHARIDE VACCINE 12/06/2019 12: 00:00 AM EDT completed [facility] pneumococcal polysaccharide PPV23 12/05/2019 07:24:00 AM EDT comple alyssa eCW1 ([facility]) pneumococcal polysaccharide PPV23 12/05/2019 07:24:00 AM EDT comple alyssa eCW1 ([facility]) pneumococcal polysaccharide PPV23 12/05/2019 07:24:00 AM EDT comple alyssa eCW1 ([facility]) pneumococcal polysaccharide PPV23 12/05/2019 07:24:00 AM EDT comple alyssa eCW1 ([facility]) pneumococcal polysaccharide PPV23 12/05/2019 07:24:00 AM EDT comple alyssa eCW1 ([facility]) pneumococcal polysaccharide PPV23 12/05/2019 07:24:00 AM EDT comple alyssa eCW1 ([facility]) pneumococcal polysaccharide PPV23 12/05/2019 07:24:00 AM EDT comple alyssa eCW1 ([facility]) pneumococcal polysaccharide PPV23 12/05/2019 07:24:00 AM EDT comple alyssa eCW1 ([facility]) pneumococcal polysaccharide PPV23 12/05/2019 07:24:00 AM EDT comple alyssa eCW1 ([facility]) pneumococcal polysaccharide PPV23 12/05/2019 07:24:00 AM EDT comple alyssa eCW1 ([facility]) pneumococcal polysaccharide PPV23 12/05/2019 07:24:00 AM EDT comple alyssa eCW1 ([facility]) pneumococcal polysaccharide PPV23 12/05/2019 07:24:00 AM EDT comple alyssa eCW1 ([facility]) pneumococcal polysaccharide PPV23 12/05/2019 07:24:00 AM EDT comple alyssa eCW1 ([facility]) pneumococcal polysaccharide PPV23 12/05/2019 07:24:00 AM EDT comple alyssa eCW1 ([facility]) pneumococcal polysaccharide PPV23 12/05/2019 07:24:00 AM EDT comple alyssa eCW1 ([facility]) pneumococcal polysaccharide PPV23 12/05/2019 07:24:00 AM EDT comple alyssa eCW1 ([facility]) pneumococcal polysaccharide PPV23 12/05/2019 07:24:00 AM EDT comple alyssa eCW1 ([facility]) pneumococcal polysaccharide PPV23 12/05/2019 07:24:00 AM EDT comple alyssa eCW1 ([facility]) pneumococcal polysaccharide PPV23 12/05/2019 07:24:00 AM EDT comple alyssa eCW1 ([facility]) pneumococcal polysaccharide PPV23 12/05/2019 07:24:00 AM EDT comple alyssa eCW1 ([facility]) pneumococcal polysaccharide PPV23 12/05/2019 07:24:00 AM EDT comple alyssa eCW1 ([facility]) pneumococcal polysaccharide PPV23 12/05/2019 07:24:00 AM EDT comple alyssa eCW1 ([facility]) pneumococcal polysaccharide PPV23 12/05/2019 07:24:00 AM EDT comple alyssa eCW1 ([facility]) pneumococcal polysaccharide PPV23 12/05/2019 07:24:00 AM EDT comple alyssa eCW1 ([facility]) pneumococcal polysaccharide PPV23 12/05/2019 07:24:00 AM EDT comple alyssa eCW1 ([facility]) pneumococcal polysaccharide PPV23 12/05/2019 07:24:00 AM EDT comple alyssa eCW1 ([facility]) pneumococcal polysaccharide PPV23 12/05/2019 07:24:00 AM EDT comple alyssa eCW1 ([facility]) pneumococcal polysaccharide PPV23 12/05/2019 07:24:00 AM EDT comple alyssa eCW1 ([facility]) pneumococcal polysaccharide PPV23 12/05/2019 07:24:00 AM EDT comple alyssa eCW1 ([facility]) pneumococcal polysaccharide PPV23 12/05/2019 07:24:00 AM EDT comple alyssa eCW1 ([facility]) IIV3. This is one of two codes replacing CVX 15, which is being retired. 12/05/2019 07:23:00 AM EDT completed eCW1 ([facility]) IIV3. This is one of two codes replacing CVX 15, which is being retired. 12/05/2019 07:23:00 AM EDT completed eCW1 ([facility]) IIV3. This is one of two codes replacing CVX 15, which is being retired. 12/05/2019 07:23:00 AM EDT completed eCW1 ([facility]) IIV3. This is one of two codes replacing CVX 15, which is being retired. 12/05/2019 07:23:00 AM EDT completed eCW1 ([facility]) IIV3. This is one of two codes replacing CVX 15, which is being retired. 12/05/2019 07:23:00 AM EDT completed eCW1 ([facility]) IIV3. This is one of two codes replacing CVX 15, which is being retired. 12/05/2019 07:23:00 AM EDT completed eCW1 ([facility]) IIV3. This is one of two codes replacing CVX 15, which is being retired. 12/05/2019 07:23:00 AM EDT completed eCW1 (Formerly [facility]) IIV3. This is one of two codes replacing CVX 15, which is being retired. 12/05/2019 07:23:00 AM EDT completed eCW1 (Formerly [facility]) IIV3. This is one of two codes replacing CVX 15, which is being retired. 12/05/2019 07:23:00 AM EDT completed eCW1 (Formerly [facility]) IIV3. This is one of two codes replacing CVX 15, which is being retired. 12/05/2019 07:23:00 AM EDT completed eCW1 (Formerly [facility]) IIV3. This is one of two codes replacing CVX 15, which is being retired. 12/05/2019 07:23:00 AM EDT completed eCW1 (Formerly [facility]) IIV3. This is one of two codes replacing CVX 15, which is being retired. 12/05/2019 07:23:00 AM EDT completed eCW1 (Formerly [facility]) IIV3. This is one of two codes replacing CVX 15, which is being retired. 12/05/2019 07:23:00 AM EDT completed eCW1 (Formerly [facility]) IIV3. This is one of two codes replacing CVX 15, which is being retired. 12/05/2019 07:23:00 AM EDT completed eCW1 ([facility]ly [facility]) IIV3. This is one of two codes replacing CVX 15, which is being retired. 12/05/2019 07:23:00 AM EDT completed eCW1 (Formerly [facility]) IIV3. This is one of two codes replacing CVX 15, which is being retired. 12/05/2019 07:23:00 AM EDT completed eCW1 ([facility]ly [facility]) IIV3. This is one of two codes replacing CVX 15, which is being retired. 12/05/2019 07:23:00 AM EDT completed eCW1 ([facility]ly [facility]) IIV3. This is one of two codes replacing CVX 15, which is being retired. 12/05/2019 07:23:00 AM EDT completed eCW1 ([facility]ly [facility]) IIV3. This is one of two codes replacing CVX 15, which is being retired. 12/05/2019 07:23:00 AM EDT completed eCW1 (Formerly [facility]) IIV3. This is one of two codes replacing CVX 15, which is being retired. 12/05/2019 07:23:00 AM EDT completed eCW1 ([facility]ly [facility]) IIV3. This is one of two codes replacing CVX 15, which is being retired. 12/05/2019 07:23:00 AM EDT completed eCW1 (Formerly [facility]) IIV3. This is one of two codes replacing CVX 15, which is being retired. 12/05/2019 07:23:00 AM EDT completed eCW1 ([facility]ly [facility]) IIV3. This is one of two codes replacing CVX 15, which is being retired. 12/05/2019 07:23:00 AM EDT completed eCW1 ([facility]ly [facility]) IIV3. This is one of two codes replacing CVX 15, which is being retired. 12/05/2019 07:23:00 AM EDT completed eCW1 ([facility]ly [facility]) IIV3. This is one of two codes replacing CVX 15, which is being retired. 12/05/2019 07:23:00 AM EDT completed eCW1 ([facility]ly [facility]) IIV3. This is one of two codes replacing CVX 15, which is being retired. 12/05/2019 07:23:00 AM EDT completed eCW1 ([facility]ly [facility]) IIV3. This is one of two codes replacing CVX 15, which is being retired. 12/05/2019 07:23:00 AM EDT completed eCW1 ([facility]ly [facility]) IIV3. This is one of two codes replacing CVX 15, which is being retired. 12/05/2019 07:23:00 AM EDT completed eCW1 ([facility]ly [facility]) IIV3. This is one of two codes replacing CVX 15, which is being retired. 12/05/2019 07:23:00 AM EDT completed eCW1 ([facility]ly [facility]) IIV3. This is one of two codes replacing CVX 15, which is being retired. 12/05/2019 07:23:00 AM EDT completed eCW1 (Formerly [facility]) Medications Medication Brand Name Start Date [...] 10/19/2020 12:00:00 AM EDT active Glucometer eCW1 ([facility]) Lancets - Lancets - 10/19/2020 12:00:00 AM EDT act matt Lancets - eCW1 ([facility]) Lancets - Lancets - 10/19/2020 12:00:00 AM EDT act matt Lancets - eCW1 ([facility]) Isopropyl Alcohol 0.7 ML/ML Medicated Pad Alcohol Swabs 70 % Alcohol Swabs 70 % 10/19/2020 12:00:00 AM EDT active Alcohol Swabs 70 % eCW1 ([facility]) Glucometer UNK 10/19/2020 12:00:00 AM EDT active Glucometer eCW1 ([facility]) Contour Next Test - Contour Next Test - 10/19/2020 12:00:00 AM EDT active Contour Next Test - eCW1 (Formerly [facility]) Lancets - Lancets - 10/19/2020 12:00:00 AM EDT act matt Lancets - eCW1 ([facility]) Glucometer UNK 10/19/2020 12:00:00 AM EDT active Glucometer eCW1 ([facility]) Glucometer UNK 10/19/2020 12:00:00 AM EDT active Glucometer eCW1 ([facility]) Isopropyl Alcohol 0.7 ML/ML Medicated Pad Alcohol Swabs 70 % Alcohol Swabs 70 % 10/19/2020 12:00:00 AM EDT active Alcohol Swabs 70 % eCW1 ([facility]) Contour Next Test - Contour Next Test - 10/19/2020 12:00:00 AM EDT active Contour Next Test - eCW1 ([facility]ly [facility]) Lancets - Lancets - 10/19/2020 12:00:00 AM EDT act matt Lancets - eCW1 ([facility]) Contour Next Test - Contour Next Test - 10/19/2020 12:00:00 AM EDT active Contour Next Test - eCW1 ([facility]ly [facility]) Isopropyl Alcohol 0.7 ML/ML Medicated Pad Alcohol Swabs 70 % Alcohol Swabs 70 % 10/19/2020 12:00:00 AM EDT active Alcohol Swabs 70 % eCW1 ([facility]) Contour Next Test - Contour Next Test - 10/19/2020 12:00:00 AM EDT active Contour Next Test - eCW1 ([facility]) Isopropyl Alcohol 0.7 ML/ML Medicated Pad Alcohol Swabs 70 % Alcohol Swabs 70 % 10/19/2020 12:00:00 AM EDT active Alcohol Swabs 70 % eCW1 ([facility]) Cephalexin 500 MG Oral Capsule CEPHALEXIN 10/16/2020 12:00:00 AM EDT capsule 14 TAKE ONE CAPSULE BY MOUTH TWICE A DAY FO 7 DAYS TAKE O NE CAPSULE BY MOUTH TWICE A DAY FO 7 DAYS SOLD: 10/16/2020 [facility] Cephalexin 500 MG Oral Capsule Cephalexin 500 MG 10/16/2020 12:00:0 0 AM EDT 1.0 {capsule} active Cephalexin 500 MG eCW1 ([facility]) Cephalexin 500 MG Oral Capsule Cephalexin 500 MG 10/16/2020 12:00:0 0 AM EDT 1.0 {capsule} active Cephalexin 500 MG eCW1 ([facility]) potassium chloride SA (K-DUR,KLOR-CON) 20 MEQ tablet [id number] 10/16/2020 12:00:00 AM EDT active TAKE TWO TABLETS BY MOUTH EVERY DAY WITH FOOD [facility] 20 mEq 10/16/2020 12:00:00 AM EDT tablet,ER particles/cry stals 60 TAKE TWO TABLETS BY MOUTH EVERY DAY WITH FOOD TAKE TWO TABLETS BY MOUTH EVERY DAY WITH FOOD SOLD: 10/16/2020 [facility] Cephalexin 500 MG Oral Capsule Cephalexin 500 MG 10/16/2020 12:00:0 0 AM EDT 1.0 {capsule} active Cephalexin 500 MG eCW1 ([facility]) Cephalexin 500 MG Oral Capsule Cephalexin 500 MG 10/16/2020 12:00:0 0 AM EDT 1.0 {capsule} active Cephalexin 500 MG eCW1 ([facility]) 75 mg 09/12/2020 12:00:00 AM EDT tablet [...] HFA) 108 (90 Base) M CG/ACT inhaler [id number] 09/04/2020 12:00:00 AM EDT active [facility] 100 mg 08/31/2020 12:00:00 AM EDT tablet 180 TAKE ONE TABLET BY MOUTH TWICE A DAY TAKE ONE TABLET BY MOUTH TWICE A DAY SOLD: 08/31/2020 [facility] 100 mg 08/31/2020 12:00:00 AM EDT tablet 180 TAKE ONE TABLET BY MOUTH TWICE A DAY TAKE ONE TABLET BY MOUTH TWICE A DAY SOLD: 12/05/2020 [facility] PARoxetine (PAXIL) 30 MG tablet [address]-6 08/20/2020 12:00:00 AM E DT 30 mg Oral active Take 30 mg by mouth [facility] 30 ACTUAT fluticasone furoate 0.2 MG/ACT UAT Dry Powder Inhaler [Arnuity] Arnuity Ellipta 200 MCG/ACT AEPB Arnuity Ellipta 200 MCG/ACT AEPB 08/15/2020 12:00:00 AM EDT active INHALE 1 PUFF BY MOUTH ONCE DAILY [facility] 30 ACTUAT umeclidinium 0.0625 MG/ACTUAT / vilanterol 0.025 MG/ACTUAT Dry Powder Inhaler [Anoro] Anoro Ellipta 62.5-25 MCG/INH inhaler Anoro Ellipta 62.5-25 MCG/INH inhaler 08/15/2020 12:00:00 AM EDT ac tive INHALE ONE PUFF BY MOUTH EVERY DAY [facility] Unifine Pentips Plus 31G X 5 MM [facility] [place] 74651-891-87 08/11/2020 12:00: 00 AM EDT active USE DIRECTED DAILY WI TH TYMLOS [facility] Famotidine 40 MG Oral Tablet FAMOTIDINE 08/07/2020 [...] [id number] 08/06/2020 12:00:00 AM EDT active [facility] Klor-Con M20 20 MEQ Klor-Con M20 20 MEQ 08/06/2020 12:00:00 AM EDT 2.0 {tablet_with_food} active Klor-Con M20 20 MEQ eCW1 ([facility]) Klor-Con M20 20 MEQ Klor-Con M20 20 MEQ 08/06/2020 12:00:00 AM EDT 2.0 {tablet_with_food} active Klor-Con M20 20 MEQ eCW1 ([facility]) Tymlos Tymlos 08/06/2020 12:00:00 AM EDT completed MEDENT ([facility]) Klor-Con M20 20 MEQ Klor-Con M20 20 MEQ 08/06/2020 12:00:00 AM EDT 2.0 {tablet_with_food} active Klor-Con M20 20 MEQ eCW1 ([facility]) [place] 08/06/2020 12:00:00 AM EDT active MEDENT ([facility]) Klor-Con M20 20 MEQ Klor-Con M20 20 MEQ 08/06/2020 12:00:00 AM EDT 2.0 {tablet_with_food} active Klor-Con M20 20 MEQ eCW1 ([facility]) Klor-Con M20 20 MEQ Klor-Con M20 20 MEQ 08/06/2020 12:00:00 AM EDT 2.0 {tablet_with_food} active Klor-Con M20 20 MEQ eCW1 ([facility]) Klor-Con M20 20 MEQ Klor-Con M20 20 MEQ 08/06/2020 12:00:00 AM EDT 2.0 {tablet_with_food} active Klor-Con M20 20 MEQ eCW1 ([facility]) Abaloparatide (Tymlos) 3120 MCG/1.56ML SOPN [id number] 08/06/2020 12:00:00 AM EDT active [facility] Klor-Con M20 20 MEQ Klor-Con M20 20 MEQ 08/06/2020 12:00:00 AM EDT 2.0 {tablet_with_food} active Klor-Con M20 20 MEQ eCW1 ([facility]) Klor-Con M20 20 MEQ Klor-Con M20 20 MEQ 08/06/2020 12:00:00 AM EDT 2.0 {tablet_with_food} active Klor-Con M20 20 MEQ eCW1 ([facility]) Klor-Con M20 20 MEQ Klor-Con M20 20 MEQ 08/06/2020 12:00:00 AM EDT 2.0 {tablet_with_food} active Klor-Con M20 20 MEQ eCW1 ([facility]) Klor-Con M20 20 MEQ Klor-Con M20 20 MEQ 08/06/2020 12:00:00 AM EDT 2.0 {tablet_with_food} active Klor-Con M20 20 MEQ eCW1 ([facility]) Klor-Con M20 20 MEQ Klor-Con M20 20 MEQ 08/06/2020 12:00:00 AM EDT 2.0 {tablet_with_food} active Klor-Con M20 20 MEQ eCW1 ([facility]) tizanidine 4 MG Oral Tablet TIZANIDINE HCL 07/30/2020 12:00:00 AM EDT tablet 90 TAKE ONE TABLET BY MOUTH EVERY 8 HOURS NEEDED TAKE ONE TABLET BY MOUTH EVERY 8 HOURS NEEDED SOLD: 08/07/2020 [facility] Famotidine 40 MG Oral Tablet Famotidine 07/19/2020 12:00:00 AM EDT active MEDENT ([facility]) tizanidine 4 MG Oral Tablet [...] by mouth 2 (two) times a day [facility] 400 mg 07/03/2020 12:00:00 AM EDT capsule [...] Take 40 mg by mouth every evening [facility] Famotidine 40 MG Oral Tablet famotidine (PEPCID) 40 MG tablet famotidine (PEPCID) 40 MG tablet 06/03/2020 12:00:00 AM EDT 40 mg Oral active Take 40 mg by mouth [facility] clopidogrel 75 MG Oral Tablet Clopidogrel Bisulfate 75 MG Oral Tablet (PLAVIX) Clopidogrel Bisulfate 75 MG Oral Tablet (PLAVIX) 06/02/2020 12:00:00 AM EDT 75 mg Oral active Take 75 mg by mouth [facility] topiramate 100 MG Oral Tablet Topiramate 100 MG Oral T ablet (TOPAMAX) Topiramate 100 MG Oral Tablet (TOPAMAX) 06/02/2020 12:00:00 AM EDT 100 mg Ora l active Take 100 mg by mouth Two Times [facility] clopidogrel 75 MG Oral Tablet clopidogrel (PLAVIX) 75 MG tablet clopidogrel (PLAVIX) 75 MG tablet 06/02/2020 12:00:00 AM EDT 75 mg Oral active Take 75 mg by mouth [facility] topiramate 100 MG Oral Tablet topiramate (TOPAMAX) 100 MG tablet topiramate (TOPAMAX) 100 MG tablet 06/02/2020 12:00:00 AM EDT 100 mg Oral active Take 100 mg by mouth [facility] Albuterol Sulfate HFA 108 (90 Base) MCG/ ACT Inhalation Aerosol Solution (PROVENTIL HFA) [id number] 06/01/2020 12:00:00 AM EDT active INHALE TWO PUFFS BY MOUTH FOUR TIMES A DAY NEEDED [facility] 30 ACTUAT umeclidinium 0.0625 MG/ACTUAT / vilanterol 0.025 MG/ACTUAT Dry Powder Inhaler [Anoro] Anoro Ellipta 62.5-25 MCG/INH Inhalation Aerosol Powder Breath Activated Anoro Ellipta 62.5-25 MCG/INH Inhalation Aerosol Powder Breath Activated 06/01/2020 12:00:00 AM EDT active INHALE ONE PUFF BY MOUTH EVERY DAY [facility] 30 ACTUAT fluticasone furoate 0.2 MG/ACT UAT Dry Powder Inhaler [Arnuity] Arnuity Ellipta 200 MCG/ACT Inhalation Aerosol Powder Breath Activated Arnuity Ellipta 200 MCG/ACT Inhalation Aerosol Powder Breath Activated 05/30/2020 12:00:00 AM EDT 1 {puff} Inhalation active Inhale 1 pu ff into the lungs daily [facility] 200 mcg/actuation 05/30/2020 12:00:00 AM EDT blister with de vice 30 INHALE 1 PUFF BY MOUTH ONCE DAILY INHALE 1 PUFF BY MOUTH ONCE DAILY SOLD: 08/19/2020 [facility] 30 ACTUAT fluticasone furoate 0.2 MG/ACTUAT Dry Powder Inhaler [Arnuity] Arnuity Ellipta 05/30/2020 12:00:00 AM EDT RESPIRATORY active MEDENT ([facility], ) 200 mcg/actuation 05/30/2020 12:00:00 AM [...] TO 8 HOURS NEEDED FOR 5 DAYS [facility] PARoxetine HCl 30 MG Oral Tablet (PAXIL) [address]-3 05/22/2020 12:00:00 AM EDT 30 mg Oral active Take 30 mg by staci th every morning [facility] 4 mg 05/22/2020 12:00:00 AM EDT tablet [...] TO 8 HOURS NEEDED FOR 5 DAYS [facility] Paroxetine Hydrochloride 30 MG Oral Tablet PAROXETINE [...] 05/11/2020 12:00:00 AM EDT ORAL active MEDENT ([facility], ) POLYETHYLENE GLYCOL 3350 142 MG/ML Oral Solution [Miralax] M iralax 05/11/2020 12:00:00 AM EDT active M EDENT ([facility], ) 4 mg 04/26/2020 12:00:00 AM EST tablet 15 TAKE ONE TABLET BY MOUTH EVERY 6 TO 8 HOURS NEEDED TAKE ONE TABLET BY MOUTH EVERY 6 TO 8 HOURS NEEDED SOLD: 04/26/2020 [facility] POLYETHYLENE GLYCOL 3350 142 MG/ML Oral Solution [Miralax] M iralax 04/16/2020 12:00:00 AM EST completed MEDENT ([facility], ) gabapentin 400 MG Oral Capsule Gabapentin 400 MG Oral Capsule (NEURONTIN) Gabapentin 400 MG Oral Capsule (NEURONTIN) 04/12/2020 12:00:00 AM EST 400 mg Oral active Take 400 mg by mouth Two Times Daily [facility] 4 mg 03/21/2020 12:00:00 AM EST tablet 15 TAKE ONE TABLET BY MOUTH EVERY 6-8 HOURS NEEDED TAKE ONE TABLET BY MOUTH EVERY 6-8 HOURS NEEDED TAN [facility] Ondansetron 4 MG Oral Tablet Ondansetron HCl 4 MG Ondansetro n HCl 4 MG 03/20/2020 12:00:00 AM EST 1.0 {tablet} active Ondansetron HCl 4 MG eCW1 ([facility]) Ondansetron 4 MG Oral Tablet Ondansetron HCl 4 MG Ondansetro n HCl 4 MG 03/20/2020 12:00:00 AM EST 1.0 {tablet} active Ondansetron HCl 4 MG eCW1 ([facility]) Ondansetron 4 MG Oral Tablet Ondansetron HCl 4 MG Ondansetro n HCl 4 MG 03/20/2020 12:00:00 AM EST 1.0 {tablet} active Ondansetron HCl 4 MG eCW1 ([facility]) Ondansetron 4 MG Oral Tablet Ondansetron HCl 4 MG Ondansetro n HCl 4 MG 03/20/2020 12:00:00 AM EST 1.0 {tablet} active Ondansetron HCl 4 MG eCW1 ([facility]) Ondansetron 4 MG Oral Tablet Ondansetron HCl 4 MG Ondansetro n HCl 4 MG 03/20/2020 12:00:00 AM EST 1.0 {tablet} active Ondansetron HCl 4 MG eCW1 ([facility]) Ondansetron 4 MG Oral Tablet Ondansetron HCl 4 MG Ondansetro n HCl 4 MG 03/20/2020 12:00:00 AM EST 1.0 {tablet} active Ondansetron HCl 4 MG eCW1 ([facility]) Ondansetron 4 MG Oral Tablet Ondansetron HCl 4 MG Ondansetro n HCl 4 MG 03/20/2020 12:00:00 AM EST 1.0 {tablet} active Ondansetron HCl 4 MG eCW1 ([facility]) Ondansetron 4 MG Oral Tablet Ondansetron HCl 4 MG Ondansetro n HCl 4 MG 03/20/2020 12:00:00 AM EST 1.0 {tablet} active Ondansetron HCl 4 MG eCW1 ([facility]) Ondansetron 4 MG Oral Tablet Ondansetron HCl 4 MG Ondansetro n HCl 4 MG 03/20/2020 12:00:00 AM EST 1.0 {tablet} active Ondansetron HCl 4 MG eCW1 ([facility]) Ondansetron 4 MG Oral Tablet Ondansetron HCl 4 MG Ondansetro n HCl 4 MG 03/20/2020 12:00:00 AM EST 1.0 {tablet} active Ondansetron HCl 4 MG eCW1 ([facility]) Ondansetron 4 MG Oral Tablet Ondansetron HCl 4 MG Ondansetro n HCl 4 MG 03/20/2020 12:00:00 AM EST 1.0 {tablet} active Ondansetron HCl 4 MG eCW1 ([facility]) Ondansetron 4 MG Oral Tablet Ondansetron HCl 4 MG Ondansetro n HCl 4 MG 03/20/2020 12:00:00 AM EST 1.0 {tablet} active Ondansetron HCl 4 MG eCW1 ([facility]) Ondansetron 4 MG Oral Tablet Ondansetron HCl 4 MG Ondansetro n HCl 4 MG 03/20/2020 12:00:00 AM EST 1.0 {tablet} active Ondansetron HCl 4 MG eCW1 ([facility]) Ondansetron 4 MG Oral Tablet Ondansetron HCl 4 MG Ondansetro n HCl 4 MG 03/20/2020 12:00:00 AM EST 1.0 {tablet} active Ondansetron HCl 4 MG eCW1 ([facility]) Ondansetron 4 MG Oral Tablet Ondansetron HCl 4 MG Ondansetro n HCl 4 MG 03/20/2020 12:00:00 AM EST 1.0 {tablet} active Ondansetron HCl 4 MG eCW1 ([facility]) Ondansetron 4 MG Oral Tablet Ondansetron HCl 4 MG Ondansetro n HCl 4 MG 03/20/2020 12:00:00 AM EST 1.0 {tablet} active Ondansetron HCl 4 MG eCW1 ([facility]) Ondansetron 4 MG Oral Tablet Ondansetron HCl 4 MG Ondansetro n HCl 4 MG 03/20/2020 12:00:00 AM EST 1.0 {tablet} active Ondansetron HCl 4 MG eCW1 ([facility]) Ondansetron 4 MG Oral Tablet Ondansetron HCl 4 MG Ondansetro n HCl 4 MG 03/20/2020 12:00:00 AM EST 1.0 {tablet} active Ondansetron HCl 4 MG eCW1 ([facility]) Ondansetron 4 MG Oral Tablet Ondansetron HCl 4 MG Ondansetro n HCl 4 MG 03/20/2020 12:00:00 AM EST 1.0 {tablet} active Ondansetron HCl 4 MG eCW1 ([facility]) Ondansetron 4 MG Oral Tablet Ondansetron HCl 4 MG Ondansetro n HCl 4 MG 03/20/2020 12:00:00 AM EST 1.0 {tablet} active Ondansetron HCl 4 MG eCW1 ([facility]) Ondansetron 4 MG Oral Tablet Ondansetron HCl 4 MG Ondansetro n HCl 4 MG 03/20/2020 12:00:00 AM EST 1.0 {tablet} active Ondansetron HCl 4 MG eCW1 ([facility]) Ondansetron 4 MG Oral Tablet Ondansetron HCl 4 MG Ondansetro n HCl 4 MG 03/20/2020 12:00:00 AM EST 1.0 {tablet} active Ondansetron HCl 4 MG eCW1 ([facility]) Ondansetron 4 MG Oral Tablet Ondansetron HCl 4 MG Ondansetro n HCl 4 MG 03/20/2020 12:00:00 AM EST 1.0 {tablet} active Ondansetron HCl 4 MG eCW1 ([facility]) 4 mg 03/16/2020 12:00:00 AM EST tablet 5 TAKE ONE TABLET BY MOUTH EVERY 6 TO 8 HOURS NEEDED FOR NAUSEA / VOMITING TAKE ONE TABLET BY MOUTH EVERY 6 TO 8 HOURS NEEDED FOR NAUSEA / VOMITING SOLD: 03/16/2020 [facility] atorvastatin 80 MG Oral Tablet Atorvastatin Calcium 80 MG Oral Tablet (LIPITOR) Atorvastatin Calcium 80 MG Oral Tablet (LIPITOR) 03/15/2020 12:00:00 AM EST 80 mg Oral active Take 80 mg by mouth [facility] atorvastatin 80 MG Oral Tablet atorvastatin (LIPITOR) 80 MG tablet atorvastatin (LIPITOR) 80 MG tablet 03/15/2020 12:00:00 AM EST 80 mg Oral active Take 80 mg by mouth daily [facility] tizanidine 4 MG Oral Tablet TIZANIDINE HCL [...] e very 8 (eight) hours as needed [facility] 100 mg 03/07/2020 12:00:00 AM EST tablet [...] Take 4 mg by mouth as needed [facility] ezetimibe 10 MG Oral Tablet Ezetimibe 10 MG Oral Table t (ZETIA) Ezetimibe 10 MG Oral Tablet (ZETIA) 02/22/2020 12:00:00 AM EST 10 mg Oral active Take 10 mg by mouth daily [facility] ezetimibe 10 MG Oral Tablet ezetimibe (ZETIA) 10 MG ta blet ezetimibe (ZETIA) 10 MG tablet 02/22/2020 12:00:00 AM EST 10 mg Oral active Take 10 mg by mouth [facility] Ciprofloxacin 500 MG Oral Tablet Ciprofloxacin HCl 500 MG Ciprofloxacin HCl 500 MG 12/29/2019 12:00:00 AM EST 1.0 {tablet} activ e Ciprofloxacin HCl 500 MG eCW1 ([facility]) Ciprofloxacin 500 MG Oral Tablet Ciprofloxacin HCl 500 MG Ciprofloxacin HCl 500 MG 12/29/2019 12:00:00 AM EST 1.0 {tablet} activ e Ciprofloxacin HCl 500 MG eCW1 ([facility]) Ciprofloxacin 500 MG Oral Tablet Ciprofloxacin HCl 500 MG Ciprofloxacin HCl 500 MG 12/29/2019 12:00:00 AM EST 1.0 {tablet} suspe nded Ciprofloxacin HCl 500 MG eCW1 ([facility]) Ciprofloxacin 500 MG Oral Tablet Ciprofloxacin HCl 500 MG Ciprofloxacin HCl 500 MG 12/29/2019 12:00:00 AM EST 1.0 {tablet} activ e Ciprofloxacin HCl 500 MG eCW1 ([facility]) Ciprofloxacin 500 MG Oral Tablet Ciprofloxacin HCl 500 MG Ciprofloxacin HCl 500 MG 12/29/2019 12:00:00 AM EST 1.0 {tablet} activ e Ciprofloxacin HCl 500 MG eCW1 ([facility]) Ciprofloxacin 500 MG Oral Tablet Ciprofloxacin HCl 500 MG Ciprofloxacin HCl 500 MG 12/29/2019 12:00:00 AM EST 1.0 {tablet} activ e Ciprofloxacin HCl 500 MG eCW1 ([facility]) Ciprofloxacin 500 MG Oral Tablet Ciprofloxacin HCl 500 MG Ciprofloxacin HCl 500 MG 12/29/2019 12:00:00 AM EST 1.0 {tablet} activ e Ciprofloxacin HCl 500 MG eCW1 ([facility]) Ciprofloxacin 500 MG Oral Tablet Ciprofloxacin HCl 500 MG Ciprofloxacin HCl 500 MG 12/29/2019 12:00:00 AM EST 1.0 {tablet} activ e Ciprofloxacin HCl 500 MG eCW1 ([facility]) Ciprofloxacin 500 MG Oral Tablet Ciprofloxacin HCl 500 MG Ciprofloxacin HCl 500 MG 12/29/2019 12:00:00 AM EST 1.0 {tablet} activ e Ciprofloxacin HCl 500 MG eCW1 ([facility]) Ciprofloxacin 500 MG Oral Tablet Ciprofloxacin HCl 500 MG Ciprofloxacin HCl 500 MG 12/29/2019 12:00:00 AM EST 1.0 {tablet} activ e Ciprofloxacin HCl 500 MG eCW1 ([facility]) Ciprofloxacin 500 MG Oral Tablet Ciprofloxacin HCl 500 MG Ciprofloxacin HCl 500 MG 12/29/2019 12:00:00 AM EST 1.0 {tablet} activ e Ciprofloxacin HCl 500 MG eCW1 ([facility]) Ciprofloxacin 500 MG Oral Tablet Ciprofloxacin HCl 500 MG Ciprofloxacin HCl 500 MG 12/29/2019 12:00:00 AM EST 1.0 {tablet} suspe nded Ciprofloxacin HCl 500 MG eCW1 ([facility]) Ciprofloxacin 500 MG Oral Tablet Ciprofloxacin HCl 500 MG Ciprofloxacin HCl 500 MG 12/29/2019 12:00:00 AM EST 1.0 {tablet} activ e Ciprofloxacin HCl 500 MG eCW1 ([facility]) Ciprofloxacin 500 MG Oral Tablet Ciprofloxacin HCl 500 MG Ciprofloxacin HCl 500 MG 12/29/2019 12:00:00 AM EST 1.0 {tablet} activ e Ciprofloxacin HCl 500 MG eCW1 ([facility]) 500 mg 12/29/2019 12:00:00 AM EST tablet 10 TAKE ONE TABLET BY MOUTH EVERY 12 HOURS FOR 5 DAYS TAKE ONE TABLET BY MOUTH EVERY 12 HOURS FOR 5 DAYS [facility] Ciprofloxacin 500 MG Oral Tablet Ciprofloxacin HCl 500 MG Ciprofloxacin HCl 500 MG 12/29/2019 12:00:00 AM EST 1.0 {tablet} activ e Ciprofloxacin HCl 500 MG eCW1 ([facility]) Ciprofloxacin 500 MG Oral Tablet Ciprofloxacin HCl 500 MG Ciprofloxacin HCl 500 MG 12/29/2019 12:00:00 AM EST 1.0 {tablet} activ e Ciprofloxacin HCl 500 MG eCW1 ([facility]) Ciprofloxacin 500 MG Oral Tablet Ciprofloxacin HCl 500 MG Ciprofloxacin HCl 500 MG 12/29/2019 12:00:00 AM EST 1.0 {tablet} activ e Ciprofloxacin HCl 500 MG eCW1 ([facility]) Ciprofloxacin 500 MG Oral Tablet Ciprofloxacin HCl 500 MG Ciprofloxacin HCl 500 MG 12/29/2019 12:00:00 AM EST 1.0 {tablet} activ e Ciprofloxacin HCl 500 MG eCW1 ([facility]) Ciprofloxacin 500 MG Oral Tablet Ciprofloxacin HCl 500 MG Ciprofloxacin HCl 500 MG 12/29/2019 12:00:00 AM EST 1.0 {tablet} suspe nded Ciprofloxacin HCl 500 MG eCW1 ([facility]) Ciprofloxacin 500 MG Oral Tablet Ciprofloxacin HCl 500 MG Ciprofloxacin HCl 500 MG 12/29/2019 12:00:00 AM EST 1.0 {tablet} activ e Ciprofloxacin HCl 500 MG eCW1 ([facility]) Ciprofloxacin 500 MG Oral Tablet Ciprofloxacin HCl 500 MG Ciprofloxacin HCl 500 MG 12/29/2019 12:00:00 AM EST 1.0 {tablet} activ e Ciprofloxacin HCl 500 MG eCW1 ([facility]) Ciprofloxacin 500 MG Oral Tablet Ciprofloxacin HCl 500 MG Ciprofloxacin HCl 500 MG 12/29/2019 12:00:00 AM EST 1.0 {tablet} suspe nded Ciprofloxacin HCl 500 MG eCW1 ([facility]) Ciprofloxacin 500 MG Oral Tablet Ciprofloxacin HCl 500 MG Ciprofloxacin HCl 500 MG 12/29/2019 12:00:00 AM EST 1.0 {tablet} activ e Ciprofloxacin HCl 500 MG eCW1 ([facility]) Ciprofloxacin 500 MG Oral Tablet Ciprofloxacin HCl 500 MG Ciprofloxacin HCl 500 MG 12/29/2019 12:00:00 AM EST 1.0 {tablet} activ e Ciprofloxacin HCl 500 MG eCW1 ([facility]) Ciprofloxacin 500 MG Oral Tablet Ciprofloxacin HCl 500 MG Ciprofloxacin HCl 500 MG 12/29/2019 12:00:00 AM EST 1.0 {tablet} activ e Ciprofloxacin HCl 500 MG eCW1 ([facility]) Ciprofloxacin 500 MG Oral Tablet Ciprofloxacin HCl 500 MG Ciprofloxacin HCl 500 MG 12/29/2019 12:00:00 AM EST 1.0 {tablet} activ e Ciprofloxacin HCl 500 MG eCW1 ([facility]) Ciprofloxacin 500 MG Oral Tablet Ciprofloxacin HCl 500 MG Ciprofloxacin HCl 500 MG 12/29/2019 12:00:00 AM EST 1.0 {tablet} activ e Ciprofloxacin HCl 500 MG eCW1 ([facility]) Ciprofloxacin 500 MG Oral Tablet Ciprofloxacin HCl 500 MG Ciprofloxacin HCl 500 MG 12/29/2019 12:00:00 AM EST 1.0 {tablet} activ e Ciprofloxacin HCl 500 MG eCW1 ([facility]) tizanidine 4 MG Oral Tablet TIZANIDINE [...] active t iZANidine HCl 4 MG eCW1 ([facility]) tizanidine 4 MG Oral Tablet tiZANidine HCl 4 MG tiZANidine H Cl 4 MG 12/13/2019 12:00:00 AM EDT 2.0 {tablets} suspended tiZANidine HCl 4 MG eCW1 ([facility]) Sulfamethoxazole 800 MG / Trimethoprim 1 60 MG Oral Tablet [Bactrim] Bactrim DS 800-160 MG Bactrim DS 800-160 MG 12/13/2019 12:00:00 AM EDT 1.0 {table t} suspended Bactrim DS 800-160 MG eCW1 ( [facility]) tizanidine 4 MG Oral Tablet Tizanidine HCl 4 MG Tizanidine H Cl 4 MG 12/13/2019 12:00:00 AM EDT 2.0 {tablets} active T izanidine HCl 4 MG eCW1 ([facility]) tizanidine 4 MG Oral Tablet Tizanidine HCl 4 MG Tizanidine H Cl 4 MG 12/13/2019 12:00:00 AM EDT 2.0 {tablets} active T izanidine HCl 4 MG eCW1 ([facility]) Sulfamethoxazole 800 MG / Trimethoprim 160 [...] active T izanidine HCl 4 MG eCW1 ([facility]) Sulfamethoxazole 800 MG / Trimethoprim 1 60 MG Oral Tablet [Bactrim] Bactrim DS 800-160 MG Bactrim DS 800-160 MG 12/13/2019 12:00:00 AM EDT 1.0 {table t} active Bactrim DS 800-160 MG eCW1 ( [facility]) tizanidine 4 MG Oral Tablet Tizanidine HCl 4 MG Tizanidine H Cl 4 MG 12/13/2019 12:00:00 AM EDT 2.0 {tablets} active T izanidine HCl 4 MG eCW1 ([facility]) Sulfamethoxazole 800 MG / Trimethoprim 1 60 MG Oral Tablet [Bactrim] Bactrim DS 800-160 MG Bactrim DS 800-160 MG 12/13/2019 12:00:00 AM EDT 1.0 {table t} suspended Bactrim DS 800-160 MG eCW1 ( [facility]) tizanidine 4 MG Oral Tablet tiZANidine HCl 4 MG tiZANidine H Cl 4 MG 12/13/2019 12:00:00 AM EDT 2.0 {tablets} active t iZANidine HCl 4 MG eCW1 ([facility]) Sulfamethoxazole 800 MG / Trimethoprim 1 60 MG Oral Tablet [Bactrim] Bactrim DS 800-160 MG Bactrim DS 800-160 MG 12/13/2019 12:00:00 AM EDT 1.0 {table t} suspended Bactrim DS 800-160 MG eCW1 ( [facility]) tizanidine 4 MG Oral Tablet tiZANidine HCl 4 MG tiZANidine H Cl 4 MG 12/13/2019 12:00:00 AM EDT 2.0 {tablets} active t iZANidine HCl 4 MG eCW1 ([facility]) tizanidine 4 MG Oral Tablet tiZANidine HCl 4 MG tiZANidine H Cl 4 MG 12/13/2019 12:00:00 AM EDT 2.0 {tablets} active t iZANidine HCl 4 MG eCW1 ([facility]) tizanidine 4 MG Oral Tablet tiZANidine HCl 4 MG tiZANidine H Cl 4 MG 12/13/2019 12:00:00 AM EDT 2.0 {tablets} suspended tiZANidine HCl 4 MG eCW1 ([facility]) tizanidine 4 MG Oral Tablet tiZANidine HCl 4 MG tiZANidine H Cl 4 MG 12/13/2019 12:00:00 AM EDT 2.0 {tablets} active t iZANidine HCl 4 MG eCW1 ([facility]) tizanidine 4 MG Oral Tablet tiZANidine HCl 4 MG tiZANidine H Cl 4 MG 12/13/2019 12:00:00 AM EDT 2.0 {tablets} active t iZANidine HCl 4 MG eCW1 ([facility]) tizanidine 4 MG Oral Tablet Tizanidine HCl 4 MG Tizanidine H Cl 4 MG 12/13/2019 12:00:00 AM EDT 2.0 {tablets} active T izanidine HCl 4 MG eCW1 ([facility]) Sulfamethoxazole 800 MG / Trimethoprim 1 60 MG Oral Tablet [Bactrim] Bactrim DS 800-160 MG Bactrim DS 800-160 MG 12/13/2019 12:00:00 AM EDT 1.0 {table t} suspended Bactrim DS 800-160 MG eCW1 ( [facility]) tizanidine 4 MG Oral Tablet Tizanidine HCl 4 MG Tizanidine H Cl 4 MG 12/13/2019 12:00:00 AM EDT 2.0 {tablets} active T izanidine HCl 4 MG eCW1 ([facility]) tizanidine 4 MG Oral Tablet tiZANidine HCl 4 MG tiZANidine H Cl 4 MG 12/13/2019 12:00:00 AM EDT 2.0 {tablets} active t iZANidine HCl 4 MG eCW1 ([facility]) tizanidine 4 MG Oral Tablet Tizanidine HCl 4 MG Tizanidine H Cl 4 MG 12/13/2019 12:00:00 AM EDT 2.0 {tablets} active T izanidine HCl 4 MG eCW1 ([facility]) Sulfamethoxazole 800 MG / Trimethoprim 1 60 MG Oral Tablet [Bactrim] Bactrim DS 800-160 MG Bactrim DS 800-160 MG 12/13/2019 12:00:00 AM EDT 1.0 {table t} suspended Bactrim DS 800-160 MG eCW1 ( [facility]) Sulfamethoxazole 800 MG / Trimethoprim 1 60 MG Oral Tablet [Bactrim] Bactrim DS 800-160 MG Bactrim DS 800-160 MG 12/13/2019 12:00:00 AM EDT 1.0 {table t} active Bactrim DS 800-160 MG eCW1 ( [facility]) tizanidine 4 MG Oral Tablet tiZANidine HCl 4 MG tiZANidine H Cl 4 MG 12/13/2019 12:00:00 AM EDT 2.0 {tablets} active t iZANidine HCl 4 MG eCW1 ([facility]) tizanidine 4 MG Oral Tablet Tizanidine HCl 4 MG Tizanidine H Cl 4 MG 12/13/2019 12:00:00 AM EDT 2.0 {tablets} active T izanidine HCl 4 MG eCW1 ([facility]) Sulfamethoxazole 800 MG / Trimethoprim 1 60 MG Oral Tablet [Bactrim] Bactrim DS 800-160 MG Bactrim DS 800-160 MG 12/13/2019 12:00:00 AM EDT 1.0 {table t} suspended Bactrim DS 800-160 MG eCW1 ( [facility]) tizanidine 4 MG Oral Tablet Tizanidine HCl 4 MG Tizanidine H Cl 4 MG 12/13/2019 12:00:00 AM EDT 2.0 {tablets} active T izanidine HCl 4 MG eCW1 ([facility]) Sulfamethoxazole 800 MG / Trimethoprim 1 60 MG Oral Tablet [Bactrim] Bactrim DS 800-160 MG Bactrim DS 800-160 MG 12/13/2019 12:00:00 AM EDT 1.0 {table t} suspended Bactrim DS 800-160 MG eCW1 ( [facility]) tizanidine 4 MG Oral Tablet Tizanidine HCl 4 MG Tizanidine H Cl 4 MG 12/13/2019 12:00:00 AM EDT 2.0 {tablets} active T izanidine HCl 4 MG eCW1 ([facility]) tizanidine 4 MG Oral Tablet Tizanidine HCl 4 MG Tizanidine H Cl 4 MG 12/13/2019 12:00:00 AM EDT 2.0 {tablets} active T izanidine HCl 4 MG eCW1 ([facility]) tizanidine 4 MG Oral Tablet Tizanidine HCl 4 MG Tizanidine H Cl 4 MG 12/13/2019 12:00:00 AM EDT 2.0 {tablets} active T izanidine HCl 4 MG eCW1 ([facility]) Sulfamethoxazole 800 MG / Trimethoprim 1 60 MG Oral Tablet [Bactrim] Bactrim DS 800-160 MG Bactrim DS 800-160 MG 12/13/2019 12:00:00 AM EDT 1.0 {table t} suspended Bactrim DS 800-160 MG eCW1 ( [facility]) Sulfamethoxazole 800 MG / Trimethoprim 1 60 MG Oral Tablet [Bactrim] Bactrim DS 800-160 MG Bactrim DS 800-160 MG 12/13/2019 12:00:00 AM EDT 1.0 {table t} suspended Bactrim DS 800-160 MG eCW1 ( [facility]) tizanidine 4 MG Oral Tablet tiZANidine HCl 4 MG tiZANidine H Cl 4 MG 12/13/2019 12:00:00 AM EDT 2.0 {tablets} suspended tiZANidine HCl 4 MG eCW1 ([facility]) 80 mg 12/13/2019 12:00:00 AM EDT tablet 90 TAKE ONE TABLET BY MOUTH EVERY DAY TAKE ONE TABLET BY MOUTH EVERY DAY SOLD: 09/12/2020 [facility] tizanidine 4 MG Oral Tablet tiZANidine HCl 4 MG tiZANidine H Cl 4 MG 12/13/2019 12:00:00 AM EDT 2.0 {tablets} active t iZANidine HCl 4 MG eCW1 ([facility]) Sulfamethoxazole 800 MG / Trimethoprim 1 60 MG Oral Tablet [Bactrim] Bactrim DS 800-160 MG Bactrim DS 800-160 MG 12/13/2019 12:00:00 AM EDT 1.0 {table t} active Bactrim DS 800-160 MG eCW1 ( [facility]) Sulfamethoxazole 800 MG / Trimethoprim 1 60 MG Oral Tablet [Bactrim] Bactrim DS 800-160 MG Bactrim DS 800-160 MG 12/13/2019 12:00:00 AM EDT 1.0 {table t} suspended Bactrim DS 800-160 MG eCW1 ( [facility]) tizanidine 4 MG Oral Tablet Tizanidine HCl 4 MG Tizanidine H Cl 4 MG 12/13/2019 12:00:00 AM EDT 2.0 {tablets} active T izanidine HCl 4 MG eCW1 ([facility]) Sulfamethoxazole 800 MG / Trimethoprim 1 60 MG Oral Tablet [Bactrim] Bactrim DS 800-160 MG Bactrim DS 800-160 MG 12/13/2019 12:00:00 AM EDT 1.0 {table t} suspended Bactrim DS 800-160 MG eCW1 ( [facility]) Sulfamethoxazole 800 MG / Trimethoprim 1 60 MG Oral Tablet [Bactrim] Bactrim DS 800-160 MG Bactrim DS 800-160 MG 12/13/2019 12:00:00 AM EDT 1.0 {table t} suspended Bactrim DS 800-160 MG eCW1 ( [facility]) Sulfamethoxazole 800 MG / Trimethoprim 1 60 MG Oral Tablet [Bactrim] Bactrim DS 800-160 MG Bactrim DS 800-160 MG 12/13/2019 12:00:00 AM EDT 1.0 {table t} suspended Bactrim DS 800-160 MG eCW1 ( [facility]) Sulfamethoxazole 800 MG / Trimethoprim 1 60 MG Oral Tablet [Bactrim] Bactrim DS 800-160 MG Bactrim DS 800-160 MG 12/13/2019 12:00:00 AM EDT 1.0 {table t} active Bactrim DS 800-160 MG eCW1 ( [facility]) 80 mg 12/13/2019 12:00:00 AM EDT tablet [...] active T izanidine HCl 4 MG eCW1 ([facility]) tizanidine 4 MG Oral Tablet tiZANidine HCl 4 MG tiZANidine H Cl 4 MG 12/13/2019 12:00:00 AM EDT 2.0 {tablets} suspended tiZANidine HCl 4 MG eCW1 ([facility]) Sulfamethoxazole 800 MG / Trimethoprim 1 60 MG Oral Tablet [Bactrim] Bactrim DS 800-160 MG Bactrim DS 800-160 MG 12/13/2019 12:00:00 AM EDT 1.0 {table t} suspended Bactrim DS 800-160 MG eCW1 ( [facility]) Sulfamethoxazole 800 MG / Trimethoprim 1 60 MG Oral Tablet [Bactrim] Bactrim DS 800-160 MG Bactrim DS 800-160 MG 12/13/2019 12:00:00 AM EDT 1.0 {table t} suspended Bactrim DS 800-160 MG eCW1 ( [facility]) Sulfamethoxazole 800 MG / Trimethoprim 1 60 MG Oral Tablet [Bactrim] Bactrim DS 800-160 MG Bactrim DS 800-160 MG 12/13/2019 12:00:00 AM EDT 1.0 {table t} suspended Bactrim DS 800-160 MG eCW1 ( [facility]) Sulfamethoxazole 800 MG / Trimethoprim 1 60 MG Oral Tablet [Bactrim] Bactrim DS 800-160 MG Bactrim DS 800-160 MG 12/13/2019 12:00:00 AM EDT 1.0 {table t} active Bactrim DS 800-160 MG eCW1 ( [facility]) Sulfamethoxazole 800 MG / Trimethoprim 1 60 MG Oral Tablet [Bactrim] Bactrim DS 800-160 MG Bactrim DS 800-160 MG 12/13/2019 12:00:00 AM EDT 1.0 {table t} suspended Bactrim DS 800-160 MG eCW1 ( [facility]) 80 mg 12/13/2019 12:00:00 AM EDT tablet 90 TAKE ONE TABLET BY MOUTH EVERY DAY TAKE ONE TABLET BY MOUTH EVERY DAY SOLD: 03/16/2020 [facility] Sulfamethoxazole 800 MG / Trimethoprim 1 60 MG Oral Tablet [Bactrim] Bactrim DS 800-160 MG Bactrim DS 800-160 MG 12/13/2019 12:00:00 AM EDT 1.0 {table t} active Bactrim DS 800-160 MG eCW1 ( [facility]) atorvastatin 80 MG Oral Tablet ATORVASTATIN [...] active Bactrim DS 800-160 MG eCW1 ( [facility]) tizanidine 4 MG Oral Tablet Tizanidine HCl 4 MG Tizanidine H Cl 4 MG 12/13/2019 12:00:00 AM EDT 2.0 {tablets} active T izanidine HCl 4 MG eCW1 ([facility]) Sulfamethoxazole 800 MG / Trimethoprim 1 60 MG Oral Tablet [Bactrim] Bactrim DS 800-160 MG Bactrim DS 800-160 MG 12/13/2019 12:00:00 AM EDT 1.0 {table t} suspended Bactrim DS 800-160 MG eCW1 ( [facility]) tizanidine 4 MG Oral Tablet Tizanidine HCl 4 MG Tizanidine H Cl 4 MG 12/13/2019 12:00:00 AM EDT 2.0 {tablets} active T izanidine HCl 4 MG eCW1 ([facility]) tizanidine 4 MG Oral Tablet tiZANidine HCl 4 MG tiZANidine H Cl 4 MG 12/13/2019 12:00:00 AM EDT 2.0 {tablets} active t iZANidine HCl 4 MG eCW1 ([facility]) Sulfamethoxazole 800 MG / Trimethoprim 1 60 MG Oral Tablet [Bactrim] Bactrim DS 800-160 MG Bactrim DS 800-160 MG 12/13/2019 12:00:00 AM EDT 1.0 {table t} suspended Bactrim DS 800-160 MG eCW1 ( [facility]) Sulfamethoxazole 800 MG / Trimethoprim 1 60 MG Oral Tablet [Bactrim] Bactrim DS 800-160 MG Bactrim DS 800-160 MG 12/13/2019 12:00:00 AM EDT 1.0 {table t} suspended Bactrim DS 800-160 MG eCW1 ( [facility]) Sulfamethoxazole 800 MG / Trimethoprim 1 60 MG Oral Tablet [Bactrim] Bactrim DS 800-160 MG Bactrim DS 800-160 MG 12/13/2019 12:00:00 AM EDT 1.0 {table t} suspended Bactrim DS 800-160 MG eCW1 ( [facility]) Sulfamethoxazole 800 MG / Trimethoprim 1 60 MG Oral Tablet [Bactrim] Bactrim DS 800-160 MG Bactrim DS 800-160 MG 12/13/2019 12:00:00 AM EDT 1.0 {table t} active Bactrim DS 800-160 MG eCW1 ( [facility]) Sulfamethoxazole 800 MG / Trimethoprim 1 60 MG Oral Tablet [Bactrim] Bactrim DS 800-160 MG Bactrim DS 800-160 MG 12/13/2019 12:00:00 AM EDT 1.0 {table t} suspended Bactrim DS 800-160 MG eCW1 ( [facility]) ezetimibe 10 MG Oral Tablet EZETIMIBE 11/22/2019 [...] x 4)/0.5 mL IM suspension INJECT DIRECTED [id number] completed 0.5 ML influenza A virus A/[facility]/[id number] (H1N1) antigen 0.03 MG/ML / influenza A virus A/[facility] (H3N2) antigen 0.03 MG/ML / influenza B virus B/[facility] antigen 0.03 MG/ML / influenza B virus B/ antigen 0.03 MG/ML Injection [Fluzone Quadrivalent ] POLO ([facility]) Sulfamethoxazole 800 MG / Trimethoprim 1 60 MG Oral Tablet sulfamethoxazole 800 mg-trimethoprim 160 mg tablet sulfamethoxazole 800 mg-trimethoprim 160 mg tablet completed sulfame thoxazole 800 MG / trimethoprim 160 MG Oral Tablet POLO ([facility]) Omeprazole 20 MG Delayed Release Oral Ca psule omeprazole 20 mg capsule,delayed release TAKE ONE CAPSULE BY MOUTH EVERY DAY 30 MINUTES BEFORE MORNING MEAL NEEDED omeprazole 20 mg capsule,delayed release TAKE ONE CAPSULE BY MOUTH EVERY DAY 30 MINUTES BEFORE MORNING MEAL NEEDED completed omeprazole 20 MG Delayed Release Oral Capsule POLO ([facility]) Albuterol 0.833 MG/ML / Ipratropium Brom simin 0.167 MG/ML Inhalant Solution ipratropium 0.5 mg-albuterol 3 mg (2.5 mg base)/3 mL nebulization soln twice a day as needed ipratropium 0.5 mg-albuterol 3 mg (2.5 m g base)/3 mL nebulization soln twice a day as needed completed albuterol 0.833 MG/ML / ipratropium bromide 0.167 MG/ML Inhalation Solution POLO ([facility]) umeclidinium 0.0625 MG/ACTUAT / vilanter ol 0.025 MG/ACTUAT Dry Powder Inhaler Anoro Ellipta 62.5 mcg-25 mcg/actuation powder for inhalation INHALE ONE PUFF BY MOUTH EVERY DAY Anoro Ellipta 62.5 mcg-25 mcg/actuation powder for inhalation INHALE ONE PUFF BY MOUTH EVERY DAY com pleted umeclidinium 0.0625 MG/ACTUAT / vilanterol 0.025 MG/ACTUAT Dry Powder Inhaler POLO ([facility]) Cyclobenzaprine hydrochloride 10 MG Oral Tablet cyclobenzaprine 10 mg tablet TAKE ONE TABLET BY MOUTH EVERY DAY AT BEDTIME cyclobenzaprine 10 mg tablet TAKE ONE TABLET BY MOUTH EVERY DAY AT BEDTIME completed cyclobenzaprine hydrochloride 10 MG Oral Tablet POLO ([facility]) prednisone 20 mg tabs completed prednisone 20 mg tabs POLO ([facility]) methylprednisolone 4 mg tablets in a dose pack [id number] completed methylprednisolone 4 mg tablets in a dose pack POLO ([facility]) Alprazolam 0.5 MG Oral Tablet alprazolam 0.5 mg tablet TAKE ONE TABLET BY MOUTH TWICE A DAY NEEDED MAXIMUM DAILY DOSE TWO TABLETS alprazolam 0.5 mg tablet TAKE ONE TABLET BY MOUTH TWICE A DAY NEEDED MAXIMUM DAILY DOSE TWO TABLETS completed alprazolam 0.5 MG Oral Tablet POLO ([facility]) Doxycycline Monohydrate 100 MG Oral Caps ule doxycycline monohydrate 100 mg capsule doxycycline monohydrate 100 mg capsule completed doxycycline monohydrate 100 MG Oral Capsule POLO ([facility]) pantoprazole 20 MG Delayed Release Oral Tablet pantoprazole 20 mg tablet,delayed release pantoprazole 20 mg tablet,delayed release completed pantoprazole 20 MG Delayed Release Oral Tablet POLO ([facility]) Famotidine 40 MG Oral Tablet famotidine 40 mg tablet famotidine 40 mg tablet completed famotidine 40 MG Oral Tablet POLO ([facility]) Cyclobenzaprine hydrochloride 10 MG Oral Tablet cyclobenzaprine 10 mg tablet TAKE ONE TABLET BY MOUTH EVERY DAY AT BEDTIME cyclobenzaprine 10 mg tablet TAKE ONE TABLET BY MOUTH EVERY DAY AT BEDTIME completed cyclobenzaprine hydrochloride 10 MG Oral Tablet POLO ([facility]) Cyclobenzaprine hydrochloride 10 MG Oral Tablet cyclobenzaprine 10 mg tablet TAKE ONE TABLET BY MOUTH EVERY DAY AT BEDTIME cyclobenzaprine 10 mg tablet TAKE ONE TABLET BY MOUTH EVERY DAY AT BEDTIME completed cyclobenzaprine hydrochloride 10 MG Oral Tablet POLO ([facility]) methylprednisolone 4 mg tablets in a dose pack [id number] completed methylprednisolone 4 mg tablets in a dose pack POLO ([facility]) albuterol sulfate HFA 90 mcg/actuation a erosol inhaler INHALE TWO PUFFS BY MOUTH FOUR TIMES A DAY NEEDED [id number] completed [id number] 200 ACTUAT albuterol 0.09 MG/ACTUAT Metered Dose Inhaler POLO ([facility]) Phenazopyridine hydrochloride 200 MG Ora l Tablet phenazopyridine 200 mg tablet TAKE ONE TABLET BY MOUTH THREE TIMES A DAY AFTER MEALS phenazopyridine 200 mg tablet TAKE ONE TABLET BY MOUTH THREE TIMES A DAY AFTER MEALS completed phenazopyridine hydrochloride 20 0 MG Oral Tablet POLO ([facility]) Omeprazole 20 MG Delayed Release Oral Ca psule omeprazole 20 mg capsule,delayed release TAKE ONE CAPSULE BY MOUTH EVERY DAY 30 MINUTES BEFORE MORNING MEAL NEEDED omeprazole 20 mg capsule,delayed release TAKE ONE CAPSULE BY MOUTH EVERY DAY 30 MINUTES BEFORE MORNING MEAL NEEDED completed omeprazole 20 MG Delayed Release Oral Capsule POLO ([facility]) Omeprazole 20 MG Delayed Release Oral Ca psule omeprazole 20 mg capsule,delayed release TAKE ONE CAPSULE BY MOUTH EVERY DAY 30 MINUTES BEFORE MORNING MEAL NEEDED omeprazole 20 mg capsule,delayed release TAKE ONE CAPSULE BY MOUTH EVERY DAY 30 MINUTES BEFORE MORNING MEAL NEEDED completed omeprazole 20 MG Delayed Release Oral Capsule POLO ([facility]) Alprazolam 0.5 MG Oral Tablet alprazolam 0.5 mg tablet TAKE ONE TABLET BY MOUTH TWICE A DAY NEEDED MAXIMUM DAILY DOSE TWO TABLETS alprazolam 0.5 mg tablet TAKE ONE TABLET BY MOUTH TWICE A DAY NEEDED MAXIMUM DAILY DOSE TWO TABLETS completed alprazolam 0.5 MG Oral Tablet POLO ([facility]) Albuterol 0.833 MG/ML / Ipratropium Brom simin 0.167 MG/ML Inhalant Solution ipratropium 0.5 mg-albuterol 3 mg (2.5 mg base)/3 mL nebulization soln twice a day as needed ipratropium 0.5 mg-albuterol 3 mg (2.5 m g base)/3 mL nebulization soln twice a day as needed completed albuterol 0.833 MG/ML / ipratropium bromide 0.167 MG/ML Inhalation Solution POLO ([facility]) Alprazolam 0.5 MG Oral Tablet alprazolam 0.5 mg tablet TAKE ONE TABLET BY MOUTH TWICE A DAY NEEDED MAXIMUM DAILY DOSE TWO TABLETS alprazolam 0.5 mg tablet TAKE ONE TABLET BY MOUTH TWICE A DAY NEEDED MAXIMUM DAILY DOSE TWO TABLETS completed alprazolam 0.5 MG Oral Tablet POLO ([facility]) fluticasone furoate 0.2 MG/ACTUAT Dry Po wder Inhaler Arnuity Ellipta 200 mcg/actuation powder for inhalation Arnuity Ellipta 200 mcg/actuation powder for inhalation completed flu ticasone furoate 0.2 MG/ACTUAT Dry Powder Inhaler POLO ([facility]) prednisone 20 mg tabs completed prednisone 20 mg tabs POLO ([facility]) Phenazopyridine hydrochloride 200 MG Ora l Tablet phenazopyridine 200 mg tablet TAKE ONE TABLET BY MOUTH THREE TIMES A DAY AFTER MEALS phenazopyridine 200 mg tablet TAKE ONE TABLET BY MOUTH THREE TIMES A DAY AFTER MEALS completed phenazopyridine hydrochloride 20 0 MG Oral Tablet POLO ([facility]) Doxycycline Monohydrate 100 MG Oral Caps ule doxycycline monohydrate 100 mg capsule doxycycline monohydrate 100 mg capsule completed doxycycline monohydrate 100 MG Oral Capsule POLO ([facility]) Sulfamethoxazole 800 MG / Trimethoprim 1 60 MG Oral Tablet sulfamethoxazole 800 mg-trimethoprim 160 mg tablet sulfamethoxazole 800 mg-trimethoprim 160 mg tablet completed sulfame thoxazole 800 MG / trimethoprim 160 MG Oral Tablet POLO ([facility]) Fluzone Quad (PF) 60 mcg (15 m cg x 4)/0.5 mL IM suspension INJECT DIRECTED [id number] completed 0.5 ML influenza A virus A/[facility]/[id number] (H1N1) antigen 0.03 MG/ML / influenza A virus A/[facility] (H3N2) antigen 0.03 MG/ML / influenza B virus B/[facility] antigen 0.03 MG/ML / influenza B virus B/[place] antigen 0.03 MG/ML Injection [Fluzone Quadrivalent ] POLO ([facility]) pantoprazole 20 MG Delayed Release Oral Tablet pantoprazole 20 mg tablet,delayed release pantoprazole 20 mg tablet,delayed release completed pantoprazole 20 MG Delayed Release Oral Tablet POLO ([facility]) Alprazolam 0.5 MG Oral Tablet alprazolam 0.5 mg tablet TAKE ONE TABLET BY MOUTH TWICE A DAY NEEDED MAXIMUM DAILY DOSE TWO TABLETS alprazolam 0.5 mg tablet TAKE ONE TABLET BY MOUTH TWICE A DAY NEEDED MAXIMUM DAILY DOSE TWO TABLETS completed alprazolam 0.5 MG Oral Tablet POLO ([facility]) NITROFURANTOIN, MACROCRYSTALS 25 MG / Ni trofurantoin, Monohydrate 75 MG Oral Capsule nitrofurantoin monohydrate/macrocrystals 100 mg capsule nitrofurantoin monohydrate/macrocrystals 100 mg capsule completed nitrofurantoin, macrocrystals 25 MG / nitrofurantoin, monohydrate 75 MG Oral Capsule POLO ([facility]) Phenazopyridine hydrochloride 200 MG Ora l Tablet phenazopyridine 200 mg tablet TAKE ONE TABLET BY MOUTH THREE TIMES A DAY AFTER MEALS phenazopyridine 200 mg tablet TAKE ONE TABLET BY MOUTH THREE TIMES A DAY AFTER MEALS completed phenazopyridine hydrochloride 20 0 MG Oral Tablet POLO ([facility]) lidocaine 5 % topical patch [id number] com pleted lidocaine 0.05 MG/MG Medicated Patch POLO ([facility]) methylprednisolone 4 mg tablets in a dose pack [id number] completed methylprednisolone 4 mg tablets in a dose pack POLO ([facility]) methylprednisolone 4 mg tablets in a dose pack [id number] completed methylprednisolone 4 mg tablets in a dose pack POLO ([facility]) umeclidinium 0.0625 MG/ACTUAT / vilanter ol 0.025 MG/ACTUAT Dry Powder Inhaler Anoro Ellipta 62.5 mcg-25 mcg/actuation powder for inhalation INHALE ONE PUFF BY MOUTH EVERY DAY Anoro Ellipta 62.5 mcg-25 mcg/actuation powder for inhalation INHALE ONE PUFF BY MOUTH EVERY DAY com pleted umeclidinium 0.0625 MG/ACTUAT / vilanterol 0.025 MG/ACTUAT Dry Powder Inhaler POLO ([facility]) lidocaine 5 % topical patch [id number] com pleted lidocaine 0.05 MG/MG Medicated Patch POLO ([facility]) umeclidinium 0.0625 MG/ACTUAT / vilanter ol 0.025 MG/ACTUAT Dry Powder Inhaler Anoro Ellipta 62.5 mcg-25 mcg/actuation powder for inhalation INHALE ONE PUFF BY MOUTH EVERY DAY Anoro Ellipta 62.5 mcg-25 mcg/actuation powder for inhalation INHALE ONE PUFF BY MOUTH EVERY DAY com pleted umeclidinium 0.0625 MG/ACTUAT / vilanterol 0.025 MG/ACTUAT Dry Powder Inhaler POLO ([facility]) Doxycycline Monohydrate 100 MG Oral Caps ule doxycycline monohydrate 100 mg capsule doxycycline monohydrate 100 mg capsule completed doxycycline monohydrate 100 MG Oral Capsule POLO ([facility]) prednisone 20 mg tabs completed prednisone 20 mg tabs POLO ([facility]) Phenazopyridine hydrochloride 200 MG Ora l Tablet phenazopyridine 200 mg tablet TAKE ONE TABLET BY MOUTH THREE TIMES A DAY AFTER MEALS phenazopyridine 200 mg tablet TAKE ONE TABLET BY MOUTH THREE TIMES A DAY AFTER MEALS completed phenazopyridine hydrochloride 20 0 MG Oral Tablet POLO ([facility]) albuterol sulfate HFA 90 mcg/actuation a erosol inhaler INHALE TWO PUFFS BY MOUTH FOUR TIMES A DAY NEEDED [id number] completed [id number] 200 ACTUAT albuterol 0.09 MG/ACTUAT Metered Dose Inhaler POLO ([facility]) Phenazopyridine hydrochloride 200 MG Ora l Tablet phenazopyridine 200 mg tablet TAKE ONE TABLET BY MOUTH THREE TIMES A DAY AFTER MEALS phenazopyridine 200 mg tablet TAKE ONE TABLET BY MOUTH THREE TIMES A DAY AFTER MEALS completed phenazopyridine hydrochloride 20 0 MG Oral Tablet POLO ([facility]) Alprazolam 0.5 MG Oral Tablet alprazolam 0.5 mg tablet TAKE ONE TABLET BY MOUTH TWICE A DAY NEEDED MAXIMUM DAILY DOSE TWO TABLETS alprazolam 0.5 mg tablet TAKE ONE TABLET BY MOUTH TWICE A DAY NEEDED MAXIMUM DAILY DOSE TWO TABLETS completed alprazolam 0.5 MG Oral Tablet POLO ([facility]) Doxycycline Monohydrate 100 MG Oral Caps ule doxycycline monohydrate 100 mg capsule doxycycline monohydrate 100 mg capsule completed doxycycline monohydrate 100 MG Oral Capsule [facility] ([facility]) pantoprazole 20 MG Delayed Release Oral Tablet pantoprazole 20 mg tablet,delayed release pantoprazole 20 mg tablet,delayed release completed pantoprazole 20 MG Delayed Release Oral Tablet [facility] ([facility]) methylprednisolone 4 mg tablets in a dose pack [id number] completed methylprednisolone 4 mg tablets in a dose pack [facility] ([facility]) Cyclobenzaprine hydrochloride 10 MG Oral Tablet cyclobenzaprine 10 mg tablet TAKE ONE TABLET BY MOUTH EVERY DAY AT BEDTIME cyclobenzaprine 10 mg tablet TAKE ONE TABLET BY MOUTH EVERY DAY AT BEDTIME completed cyclobenzaprine hydrochloride 10 MG Oral Tablet [place] ([facility]) Famotidine 40 MG Oral Tablet famotidine 40 mg tablet famotidine 40 mg tablet completed famotidine 40 MG Oral Tablet [facility] ([facility]) Famotidine 40 MG Oral Tablet famotidine 40 mg tablet famotidine 40 mg tablet completed famotidine 40 MG Oral Tablet [facility] ([facility]) Doxycycline Monohydrate 100 MG Oral Caps ule doxycycline monohydrate 100 mg capsule doxycycline monohydrate 100 mg capsule completed doxycycline monohydrate 100 MG Oral Capsule [facility] ([facility]) Alprazolam 0.5 MG Oral Tablet alprazolam 0.5 mg tablet TAKE ONE TABLET BY MOUTH TWICE A DAY NEEDED MAXIMUM DAILY DOSE TWO TABLETS alprazolam 0.5 mg tablet TAKE ONE TABLET BY MOUTH TWICE A DAY NEEDED MAXIMUM DAILY DOSE TWO TABLETS completed alprazolam 0.5 MG Oral Tablet [facility] ([facility]) Sulfamethoxazole 800 MG / Trimethoprim 1 60 MG Oral Tablet sulfamethoxazole 800 mg-trimethoprim 160 mg tablet sulfamethoxazole 800 mg-trimethoprim 160 mg tablet completed sulfame thoxazole 800 MG / trimethoprim 160 MG Oral Tablet [facility] ([facility]) umeclidinium 0.0625 MG/ACTUAT / vilanter ol 0.025 MG/ACTUAT Dry Powder Inhaler Anoro Ellipta 62.5 mcg-25 mcg/actuation powder for inhalation INHALE ONE PUFF BY MOUTH EVERY DAY Anoro Ellipta 62.5 mcg-25 mcg/actuation powder for inhalation INHALE ONE PUFF BY MOUTH EVERY DAY com pleted umeclidinium 0.0625 MG/ACTUAT / vilanterol 0.025 MG/ACTUAT Dry Powder Inhaler [facility] ([facility]) Famotidine 40 MG Oral Tablet famotidine 40 mg tablet famotidine 40 mg tablet completed famotidine 40 MG Oral Tablet [place] ([facility]) methylprednisolone 4 mg tablets in a dose pack [id number] completed methylprednisolone 4 mg tablets in a dose pack [place] ([facility]) fluticasone furoate 0.2 MG/ACTUAT Dry Po wder Inhaler Arnuity Ellipta 200 mcg/actuation powder for inhalation Arnuity Ellipta 200 mcg/actuation powder for inhalation completed flu ticasone furoate 0.2 MG/ACTUAT Dry Powder Inhaler [facility] ([facility]) methylprednisolone 4 mg tablets in a dose pack [id number] completed methylprednisolone 4 mg tablets in a dose pack [place] ([facility]) Phenazopyridine hydrochloride 200 MG Ora l Tablet phenazopyridine 200 mg tablet TAKE ONE TABLET BY MOUTH THREE TIMES A DAY AFTER MEALS phenazopyridine 200 mg tablet TAKE ONE TABLET BY MOUTH THREE TIMES A DAY AFTER MEALS completed phenazopyridine hydrochloride 20 0 MG Oral Tablet [place] ([facility]) fluticasone furoate 0.2 MG/ACTUAT Dry Po wder Inhaler Arnuity Ellipta 200 mcg/actuation powder for inhalation Arnuity Ellipta 200 mcg/actuation powder for inhalation completed flu ticasone furoate 0.2 MG/ACTUAT Dry Powder Inhaler [place] ([facility]) pantoprazole 20 MG Delayed Release Oral Tablet pantoprazole 20 mg tablet,delayed release pantoprazole 20 mg tablet,delayed release completed pantoprazole 20 MG Delayed Release Oral Tablet [place] ([facility]) fluticasone furoate 0.2 MG/ACTUAT Dry Po wder Inhaler Arnuity Ellipta 200 mcg/actuation powder for inhalation Arnuity Ellipta 200 mcg/actuation powder for inhalation completed flu ticasone furoate 0.2 MG/ACTUAT Dry Powder Inhaler [facility] ([facility]) Sulfamethoxazole 800 MG / Trimethoprim 1 60 MG Oral Tablet sulfamethoxazole 800 mg-trimethoprim 160 mg tablet sulfamethoxazole 800 mg-trimethoprim 160 mg tablet completed sulfame thoxazole 800 MG / trimethoprim 160 MG Oral Tablet [place] ([facility]) Fluzone Quad [id number] (PF) 60 mcg (15 m cg x 4)/0.5 mL IM suspension INJECT DIRECTED [id number] completed 0.5 ML influenza A virus A/[facility]/[id number] (H1N1) antigen 0.03 MG/ML / influenza A virus A/[facility] (H3N2) antigen 0.03 MG/ML / influenza B virus B/[id number] antigen 0.03 MG/ML / influenza B virus B/ antigen 0.03 MG/ML Injection [Fluzone Quadrivalent [id number]] [facility] ([facility]) NITROFURANTOIN, MACROCRYSTALS 25 MG / Ni trofurantoin, Monohydrate 75 MG Oral Capsule nitrofurantoin monohydrate/macrocrystals 100 mg capsule nitrofurantoin monohydrate/macrocrystals 100 mg capsule completed nitrofurantoin, macrocrystals 25 MG / nitrofurantoin, monohydrate 75 MG Oral Capsule [place] ([facility]) Famotidine 40 MG Oral Tablet famotidine 40 mg tablet famotidine 40 mg tablet completed famotidine 40 MG Oral Tablet [place] ([facility]) Cyclobenzaprine hydrochloride 10 MG Oral Tablet cyclobenzaprine 10 mg tablet TAKE ONE TABLET BY MOUTH EVERY DAY AT BEDTIME cyclobenzaprine 10 mg tablet TAKE ONE TABLET BY MOUTH EVERY DAY AT BEDTIME completed cyclobenzaprine hydrochloride 10 MG Oral Tablet [place] ([facility]) NITROFURANTOIN, MACROCRYSTALS 25 MG / Ni trofurantoin, Monohydrate 75 MG Oral Capsule nitrofurantoin monohydrate/macrocrystals 100 mg capsule nitrofurantoin monohydrate/macrocrystals 100 mg capsule completed nitrofurantoin, macrocrystals 25 MG / nitrofurantoin, monohydrate 75 MG Oral Capsule [facility] ([facility]) Omeprazole 20 MG Delayed Release Oral Ca psule omeprazole 20 mg capsule,delayed release TAKE ONE CAPSULE BY MOUTH EVERY DAY 30 MINUTES BEFORE MORNING MEAL NEEDED omeprazole 20 mg capsule,delayed release TAKE ONE CAPSULE BY MOUTH EVERY DAY 30 MINUTES BEFORE MORNING MEAL NEEDED completed omeprazole 20 MG Delayed Release Oral Capsule [facility] ([facility]) pantoprazole 20 MG Delayed Release Oral Tablet pantoprazole 20 mg tablet,delayed release pantoprazole 20 mg tablet,delayed release completed pantoprazole 20 MG Delayed Release Oral Tablet [facility] ([facility]) Cyclobenzaprine hydrochloride 10 MG Oral Tablet cyclobenzaprine 10 mg tablet TAKE ONE TABLET BY MOUTH EVERY DAY AT BEDTIME cyclobenzaprine 10 mg tablet TAKE ONE TABLET BY MOUTH EVERY DAY AT BEDTIME completed cyclobenzaprine hydrochloride 10 MG Oral Tablet [place] ([facility]) fluticasone furoate 0.2 MG/ACTUAT Dry Po wder Inhaler Arnuity Ellipta 200 mcg/actuation powder for inhalation Arnuity Ellipta 200 mcg/actuation powder for inhalation completed flu ticasone furoate 0.2 MG/ACTUAT Dry Powder Inhaler [facility] ([facility]) lidocaine 5 % topical patch [id number] com pleted lidocaine 0.05 MG/MG Medicated Patch [facility] ([facility]) lidocaine 5 % topical patch [id number] com pleted lidocaine 0.05 MG/MG Medicated Patch [facility] ([facility]) Albuterol 0.833 MG/ML / Ipratropium Brom simin 0.167 MG/ML Inhalant Solution ipratropium 0.5 mg-albuterol 3 mg (2.5 mg base)/3 mL nebulization soln twice a day as needed ipratropium 0.5 mg-albuterol 3 mg (2.5 m g base)/3 mL nebulization soln twice a day as needed completed albuterol 0.833 MG/ML / ipratropium bromide 0.167 MG/ML Inhalation Solution [facility] ([facility]) methylprednisolone 4 mg tablets in a dose pack [id number] completed methylprednisolone 4 mg tablets in a dose pack [place] ([facility]) prednisone 20 mg tabs completed prednisone 20 mg tabs [place] ([facility]) Omeprazole 20 MG Delayed Release Oral Ca psule omeprazole 20 mg capsule,delayed release TAKE ONE CAPSULE BY MOUTH EVERY DAY 30 MINUTES BEFORE MORNING MEAL NEEDED omeprazole 20 mg capsule,delayed release TAKE ONE CAPSULE BY MOUTH EVERY DAY 30 MINUTES BEFORE MORNING MEAL NEEDED completed omeprazole 20 MG Delayed Release Oral Capsule [place] ([facility]) Fluzone Quad [id number] (PF) 60 mcg (15 m cg x 4)/0.5 mL IM suspension INJECT DIRECTED [id number] completed 0.5 ML influenza A virus A/[facility]/[id number] (H1N1) antigen 0.03 MG/ML / influenza A virus A/[facility] (H3N2) antigen 0.03 MG/ML / influenza B virus B/[facility] antigen 0.03 MG/ML / influenza B virus B/ antigen 0.03 MG/ML Injection [Fluzone Quadrivalent ] [facility] ([facility]) fluticasone furoate 0.2 MG/ACTUAT Dry Po wder Inhaler Arnuity Ellipta 200 mcg/actuation powder for inhalation Arnuity Ellipta 200 mcg/actuation powder for inhalation completed flu ticasone furoate 0.2 MG/ACTUAT Dry Powder Inhaler [facility] ([facility]) lidocaine 5 % topical patch [id number] com pleted lidocaine 0.05 MG/MG Medicated Patch [facility] ([facility]) Doxycycline Monohydrate 100 MG Oral Caps ule doxycycline monohydrate 100 mg capsule doxycycline monohydrate 100 mg capsule completed doxycycline monohydrate 100 MG Oral Capsule [facility] ([facility]) Sulfamethoxazole 800 MG / Trimethoprim 1 60 MG Oral Tablet sulfamethoxazole 800 mg-trimethoprim 160 mg tablet sulfamethoxazole 800 mg-trimethoprim 160 mg tablet completed sulfame thoxazole 800 MG / trimethoprim 160 MG Oral Tablet [facility] ([facility]) Famotidine 40 MG Oral Tablet famotidine 40 mg tablet famotidine 40 mg tablet completed famotidine 40 MG Oral Tablet [place] ([facility]) Omeprazole 20 MG Delayed Release Oral Ca psule omeprazole 20 mg capsule,delayed release TAKE ONE CAPSULE BY MOUTH EVERY DAY 30 MINUTES BEFORE MORNING MEAL NEEDED omeprazole 20 mg capsule,delayed release TAKE ONE CAPSULE BY MOUTH EVERY DAY 30 MINUTES BEFORE MORNING MEAL NEEDED completed omeprazole 20 MG Delayed Release Oral Capsule [place] ([facility]) Omeprazole 20 MG Delayed Release Oral Ca psule omeprazole 20 mg capsule,delayed release TAKE ONE CAPSULE BY MOUTH EVERY DAY 30 MINUTES BEFORE MORNING MEAL NEEDED omeprazole 20 mg capsule,delayed release TAKE ONE CAPSULE BY MOUTH EVERY DAY 30 MINUTES BEFORE MORNING MEAL NEEDED completed omeprazole 20 MG Delayed Release Oral Capsule [place] ([facility]) Doxycycline Monohydrate 100 MG Oral Caps ule doxycycline monohydrate 100 mg capsule doxycycline monohydrate 100 mg capsule completed doxycycline monohydrate 100 MG Oral Capsule [place] ([facility]) pantoprazole 20 MG Delayed Release Oral Tablet pantoprazole 20 mg tablet,delayed release pantoprazole 20 mg tablet,delayed release completed pantoprazole 20 MG Delayed Release Oral Tablet [place] ([facility]) Albuterol 0.833 MG/ML / Ipratropium Brom simin 0.167 MG/ML Inhalant Solution ipratropium 0.5 mg-albuterol 3 mg (2.5 mg base)/3 mL nebulization soln twice a day as needed ipratropium 0.5 mg-albuterol 3 mg (2.5 m g base)/3 mL nebulization soln twice a day as needed completed albuterol 0.833 MG/ML / ipratropium bromide 0.167 MG/ML Inhalation Solution [facility] ([facility]) Alprazolam 0.5 MG Oral Tablet alprazolam 0.5 mg tablet TAKE ONE TABLET BY MOUTH TWICE A DAY NEEDED MAXIMUM DAILY DOSE TWO TABLETS alprazolam 0.5 mg tablet TAKE ONE TABLET BY MOUTH TWICE A DAY NEEDED MAXIMUM DAILY DOSE TWO TABLETS completed alprazolam 0.5 MG Oral Tablet [place] ([facility]) pantoprazole 20 MG Delayed Release Oral Tablet pantoprazole 20 mg tablet,delayed release pantoprazole 20 mg tablet,delayed release completed pantoprazole 20 MG Delayed Release Oral Tablet [facility] ([facility]) Phenazopyridine hydrochloride 200 MG Ora l Tablet phenazopyridine 200 mg tablet TAKE ONE TABLET BY MOUTH THREE TIMES A DAY AFTER MEALS phenazopyridine 200 mg tablet TAKE ONE TABLET BY MOUTH THREE TIMES A DAY AFTER MEALS completed phenazopyridine hydrochloride 20 0 MG Oral Tablet [place] ([facility]) Omeprazole 20 MG Delayed Release Oral Ca psule omeprazole 20 mg capsule,delayed release TAKE ONE CAPSULE BY MOUTH EVERY DAY 30 MINUTES BEFORE MORNING MEAL NEEDED omeprazole 20 mg capsule,delayed release TAKE ONE CAPSULE BY MOUTH EVERY DAY 30 MINUTES BEFORE MORNING MEAL NEEDED completed omeprazole 20 MG Delayed Release Oral Capsule [facility] ([facility]) fluticasone furoate 0.2 MG/ACTUAT Dry Po wder Inhaler Arnuity Ellipta 200 mcg/actuation powder for inhalation Arnuity Ellipta 200 mcg/actuation powder for inhalation completed flu ticasone furoate 0.2 MG/ACTUAT Dry Powder Inhaler [facility] ([facility]) Sulfamethoxazole 800 MG / Trimethoprim 1 60 MG Oral Tablet sulfamethoxazole 800 mg-trimethoprim 160 mg tablet sulfamethoxazole 800 mg-trimethoprim 160 mg tablet completed sulfame thoxazole 800 MG / trimethoprim 160 MG Oral Tablet [place] ([facility]) pantoprazole 20 MG Delayed Release Oral Tablet pantoprazole 20 mg tablet,delayed release pantoprazole 20 mg tablet,delayed release completed pantoprazole 20 MG Delayed Release Oral Tablet [place] ([facility]) lidocaine 5 % topical patch [id number] com pleted lidocaine 0.05 MG/MG Medicated Patch [place] ([facility]) Albuterol 0.833 MG/ML / Ipratropium Brom simin 0.167 MG/ML Inhalant Solution ipratropium 0.5 mg-albuterol 3 mg (2.5 mg base)/3 mL nebulization soln twice a day as needed ipratropium 0.5 mg-albuterol 3 mg (2.5 m g base)/3 mL nebulization soln twice a day as needed completed albuterol 0.833 MG/ML / ipratropium bromide 0.167 MG/ML Inhalation Solution [facility] ([facility]) Famotidine 40 MG Oral Tablet famotidine 40 mg tablet famotidine 40 mg tablet completed famotidine 40 MG Oral Tablet [place] ([facility]) Doxycycline Monohydrate 100 MG Oral Caps ule doxycycline monohydrate 100 mg capsule doxycycline monohydrate 100 mg capsule completed doxycycline monohydrate 100 MG Oral Capsule [place] ([facility]) Sulfamethoxazole 800 MG / Trimethoprim 1 60 MG Oral Tablet sulfamethoxazole 800 mg-trimethoprim 160 mg tablet sulfamethoxazole 800 mg-trimethoprim 160 mg tablet completed sulfame thoxazole 800 MG / trimethoprim 160 MG Oral Tablet [place] ([facility]) Fluzone Quad [id number] (PF) 60 mcg (15 m cg x 4)/0.5 mL IM suspension INJECT DIRECTED [id number] completed 0.5 ML influenza A virus A/[facility]/[id number] (H1N1) antigen 0.03 MG/ML / influenza A virus A/[facility] (H3N2) antigen 0.03 MG/ML / influenza B virus B/[facility] antigen 0.03 MG/ML / influenza B virus B/ antigen 0.03 MG/ML Injection [Fluzone Quadrivalent ] [place] ([facility]) Sulfamethoxazole 800 MG / Trimethoprim 1 60 MG Oral Tablet sulfamethoxazole 800 mg-trimethoprim 160 mg tablet sulfamethoxazole 800 mg-trimethoprim 160 mg tablet completed sulfame thoxazole 800 MG / trimethoprim 160 MG Oral Tablet [place] ([facility]) Cyclobenzaprine hydrochloride 10 MG Oral Tablet cyclobenzaprine 10 mg tablet TAKE ONE TABLET BY MOUTH EVERY DAY AT BEDTIME cyclobenzaprine 10 mg tablet TAKE ONE TABLET BY MOUTH EVERY DAY AT BEDTIME completed cyclobenzaprine hydrochloride 10 MG Oral Tablet [place] ([facility]) albuterol sulfate HFA 90 mcg/actuation a erosol inhaler INHALE TWO PUFFS BY MOUTH FOUR TIMES A DAY NEEDED [id number] completed [id number] 200 ACTUAT albuterol 0.09 MG/ACTUAT Metered Dose Inhaler [place] ([facility]) NITROFURANTOIN, MACROCRYSTALS 25 MG / Ni trofurantoin, Monohydrate 75 MG Oral Capsule nitrofurantoin monohydrate/macrocrystals 100 mg capsule nitrofurantoin monohydrate/macrocrystals 100 mg capsule completed nitrofurantoin, macrocrystals 25 MG / nitrofurantoin, monohydrate 75 MG Oral Capsule [place] ([facility]) Albuterol 0.833 MG/ML / Ipratropium Brom simin 0.167 MG/ML Inhalant Solution ipratropium 0.5 mg-albuterol 3 mg (2.5 mg base)/3 mL nebulization soln twice a day as needed ipratropium 0.5 mg-albuterol 3 mg (2.5 m g base)/3 mL nebulization soln twice a day as needed completed albuterol 0.833 MG/ML / ipratropium bromide 0.167 MG/ML Inhalation Solution [place] ([facility]) lidocaine 5 % topical patch [id number] com pleted lidocaine 0.05 MG/MG Medicated Patch [place] ([facility]) Albuterol 0.833 MG/ML / Ipratropium Brom simin 0.167 MG/ML Inhalant Solution ipratropium 0.5 mg-albuterol 3 mg (2.5 mg base)/3 mL nebulization soln twice a day as needed ipratropium 0.5 mg-albuterol 3 mg (2.5 m g base)/3 mL nebulization soln twice a day as needed completed albuterol 0.833 MG/ML / ipratropium bromide 0.167 MG/ML Inhalation Solution [place] ([facility]) NITROFURANTOIN, MACROCRYSTALS 25 MG / Ni trofurantoin, Monohydrate 75 MG Oral Capsule nitrofurantoin monohydrate/macrocrystals 100 mg capsule nitrofurantoin monohydrate/macrocrystals 100 mg capsule completed nitrofurantoin, macrocrystals 25 MG / nitrofurantoin, monohydrate 75 MG Oral Capsule [place] ([facility]) pantoprazole 20 MG Delayed Release Oral Tablet pantoprazole 20 mg tablet,delayed release pantoprazole 20 mg tablet,delayed release completed pantoprazole 20 MG Delayed Release Oral Tablet [place] ([facility]) lidocaine 5 % topical patch [id number] com pleted lidocaine 0.05 MG/MG Medicated Patch [place] ([facility]) umeclidinium 0.0625 MG/ACTUAT / vilanter ol 0.025 MG/ACTUAT Dry Powder Inhaler Anoro Ellipta 62.5 mcg-25 mcg/actuation powder for inhalation INHALE ONE PUFF BY MOUTH EVERY DAY Anoro Ellipta 62.5 mcg-25 mcg/actuation powder for inhalation INHALE ONE PUFF BY MOUTH EVERY DAY com pleted umeclidinium 0.0625 MG/ACTUAT / vilanterol 0.025 MG/ACTUAT Dry Powder Inhaler [place] ([facility]) Alprazolam 0.5 MG Oral Tablet alprazolam 0.5 mg tablet TAKE ONE TABLET BY MOUTH TWICE A DAY NEEDED MAXIMUM DAILY DOSE TWO TABLETS alprazolam 0.5 mg tablet TAKE ONE TABLET BY MOUTH TWICE A DAY NEEDED MAXIMUM DAILY DOSE TWO TABLETS completed alprazolam 0.5 MG Oral Tablet [place] ([facility]) umeclidinium 0.0625 MG/ACTUAT / vilanter ol 0.025 MG/ACTUAT Dry Powder Inhaler Anoro Ellipta 62.5 mcg-25 mcg/actuation powder for inhalation INHALE ONE PUFF BY MOUTH EVERY DAY Anoro Ellipta 62.5 mcg-25 mcg/actuation powder for inhalation INHALE ONE PUFF BY MOUTH EVERY DAY com pleted umeclidinium 0.0625 MG/ACTUAT / vilanterol 0.025 MG/ACTUAT Dry Powder Inhaler [place] ([facility]) Cyclobenzaprine hydrochloride 10 MG Oral Tablet cyclobenzaprine 10 mg tablet TAKE ONE TABLET BY MOUTH EVERY DAY AT BEDTIME cyclobenzaprine 10 mg tablet TAKE ONE TABLET BY MOUTH EVERY DAY AT BEDTIME completed cyclobenzaprine hydrochloride 10 MG Oral Tablet [place] ([facility]) Sulfamethoxazole 800 MG / Trimethoprim 1 60 MG Oral Tablet sulfamethoxazole 800 mg-trimethoprim 160 mg tablet sulfamethoxazole 800 mg-trimethoprim 160 mg tablet completed sulfame thoxazole 800 MG / trimethoprim 160 MG Oral Tablet [place] ([facility]) Alprazolam 0.5 MG Oral Tablet alprazolam 0.5 mg tablet TAKE ONE TABLET BY MOUTH TWICE A DAY NEEDED MAXIMUM DAILY DOSE TWO TABLETS alprazolam 0.5 mg tablet TAKE ONE TABLET BY MOUTH TWICE A DAY NEEDED MAXIMUM DAILY DOSE TWO TABLETS completed alprazolam 0.5 MG Oral Tablet [place] ([facility]) prednisone 20 mg tabs completed prednisone 20 mg tabs [place] ([facility]) NITROFURANTOIN, MACROCRYSTALS 25 MG / Ni trofurantoin, Monohydrate 75 MG Oral Capsule nitrofurantoin monohydrate/macrocrystals 100 mg capsule nitrofurantoin monohydrate/macrocrystals 100 mg capsule completed nitrofurantoin, macrocrystals 25 MG / nitrofurantoin, monohydrate 75 MG Oral Capsule [place] ([facility]) Doxycycline Monohydrate 100 MG Oral Caps ule doxycycline monohydrate 100 mg capsule doxycycline monohydrate 100 mg capsule completed doxycycline monohydrate 100 MG Oral Capsule [place] ([facility]) methylprednisolone 4 mg tablets in a dose pack [id number] completed methylprednisolone 4 mg tablets in a dose pack [place] ([facility]) NITROFURANTOIN, MACROCRYSTALS 25 MG / Ni trofurantoin, Monohydrate 75 MG Oral Capsule nitrofurantoin monohydrate/macrocrystals 100 mg capsule nitrofurantoin monohydrate/macrocrystals 100 mg capsule completed nitrofurantoin, macrocrystals 25 MG / nitrofurantoin, monohydrate 75 MG Oral Capsule [place] ([facility]) prednisone 20 mg tabs completed prednisone 20 mg tabs [place] ([facility]) prednisone 20 mg tabs completed prednisone 20 mg tabs [place] ([facility]) NITROFURANTOIN, MACROCRYSTALS 25 MG / Ni trofurantoin, Monohydrate 75 MG Oral Capsule nitrofurantoin monohydrate/macrocrystals 100 mg capsule nitrofurantoin monohydrate/macrocrystals 100 mg capsule completed nitrofurantoin, macrocrystals 25 MG / nitrofurantoin, monohydrate 75 MG Oral Capsule [place] ([facility]) Albuterol 0.833 MG/ML / Ipratropium Brom simin 0.167 MG/ML Inhalant Solution ipratropium 0.5 mg-albuterol 3 mg (2.5 mg base)/3 mL nebulization soln twice a day as needed ipratropium 0.5 mg-albuterol 3 mg (2.5 m g base)/3 mL nebulization soln twice a day as needed completed albuterol 0.833 MG/ML / ipratropium bromide 0.167 MG/ML Inhalation Solution [place] ([facility]) Albuterol 0.833 MG/ML / Ipratropium Brom simin 0.167 MG/ML Inhalant Solution ipratropium 0.5 mg-albuterol 3 mg (2.5 mg base)/3 mL nebulization soln twice a day as needed ipratropium 0.5 mg-albuterol 3 mg (2.5 m g base)/3 mL nebulization soln twice a day as needed completed albuterol 0.833 MG/ML / ipratropium bromide 0.167 MG/ML Inhalation Solution [place] ([facility]) Omeprazole 20 MG Delayed Release Oral Ca psule omeprazole 20 mg capsule,delayed release TAKE ONE CAPSULE BY MOUTH EVERY DAY 30 MINUTES BEFORE MORNING MEAL NEEDED omeprazole 20 mg capsule,delayed release TAKE ONE CAPSULE BY MOUTH EVERY DAY 30 MINUTES BEFORE MORNING MEAL NEEDED completed omeprazole 20 MG Delayed Release Oral Capsule [place] ([facility]) NITROFURANTOIN, MACROCRYSTALS 25 MG / Ni trofurantoin, Monohydrate 75 MG Oral Capsule nitrofurantoin monohydrate/macrocrystals 100 mg capsule nitrofurantoin monohydrate/macrocrystals 100 mg capsule completed nitrofurantoin, macrocrystals 25 MG / nitrofurantoin, monohydrate 75 MG Oral Capsule [place] ([facility]) Phenazopyridine hydrochloride 200 MG Ora l Tablet phenazopyridine 200 mg tablet TAKE ONE TABLET BY MOUTH THREE TIMES A DAY AFTER MEALS phenazopyridine 200 mg tablet TAKE ONE TABLET BY MOUTH THREE TIMES A DAY AFTER MEALS completed phenazopyridine hydrochloride 20 0 MG Oral Tablet [facility] ([facility]) prednisone 20 mg tabs completed prednisone 20 mg tabs [facility] ([facility]) lidocaine 5 % topical patch [id number] com pleted lidocaine 0.05 MG/MG Medicated Patch [facility] ([facility]) prednisone 20 mg tabs completed prednisone 20 mg tabs [facility] ([facility]) Phenazopyridine hydrochloride 200 MG Ora l Tablet phenazopyridine 200 mg tablet TAKE ONE TABLET BY MOUTH THREE TIMES A DAY AFTER MEALS phenazopyridine 200 mg tablet TAKE ONE TABLET BY MOUTH THREE TIMES A DAY AFTER MEALS completed phenazopyridine hydrochloride 20 0 MG Oral Tablet [facility] ([facility]) Cyclobenzaprine hydrochloride 10 MG Oral Tablet cyclobenzaprine 10 mg tablet TAKE ONE TABLET BY MOUTH EVERY DAY AT BEDTIME cyclobenzaprine 10 mg tablet TAKE ONE TABLET BY MOUTH EVERY DAY AT BEDTIME completed cyclobenzaprine hydrochloride 10 MG Oral Tablet [facility] ([facility]) Insurance Providers Payer name Policy type / Coverage type Policy ID Covered democrat ID Covered democrat's relationship to mcdermott Policy Mcdermott Plan Information [facility] [id number] MEDICARE COMPLETE [id number] 92 [id number] MEDICAID [id number] SP [id number] MEDICARE COMPLETE [id number] SP [id number] [facility] Medicare Complete F [id number] SELF [id number] Medicaid [place] Medigap Part B [id number] Self [id number] Medicaid [facility] S [id number] SELF [id number] [facility] Medicare Complete F [id number] SELF [id number] Medicaid [facility] Part B [id number] Self [id number] [facility] Medicare Complete F [id number] SELF [id number] MEDICARE COMPLETE [id number] SP [id number] Medicaid [facility] Part B [id number] Self [id number] [facility] [id number] Self [id number] MEDICAID [id number] SP [id number] MEDICARE COMPLETE [id number] SP [id number] MEDICAID [id number] SP [id number] MEDICARE COMPLETE [id number] SP [id number] MEDICARE COMPLETE [id number] SP [id number] [facility] MEDICAID [id number] 1 UHC UNITED MEDICARE DUAL G [id number] Self [id number] [facility] MEDICAID [id number] Mary [id number] MEDICAID M [id number] Self [id number] MEDICAID [id number] MEDICAID [id number] Mary [id number] [facility] Medicare Commercial [id number] Self [id number] [facility]-Medicaid [id number] ANS-Medicare Part B [id number] [facility]-Medicare Part B [id number] ANSI-Medicaid [id number] ANSI-Medicaid [id number] ANS-Medicare Part B [id number] [facility]-Medicare Part B [id number] ANSI-Medicaid [id number] ANSI-Medicare Part B [id number] [facility] [id number] ANSI-Medicaid [id number] ANSI-Medicare Part B [id number] ANSI-Medicaid [id number] ANSI-Medicare Part B [id number] ANSI-Medicare Part B [id number] ANSI-Medicaid [id number] ANSI-Medicare Part B [id number] ANSI-Medicaid [id number] ANSI-Medicare Part B [id number] ANSI-Medicaid [id number] ANSI-Medicare Part B [id number] ANSI-Medicaid [id number] ANSI-Medicaid [id number] ANSI-Medicare Part B [id number] ANSI-Medicare Part B [id number] [place] [id number] SP [id number] ANSI-Medicare Part B [id number] ANSI-Medicaid [id number] ANSI-Medicaid [id number] ANSI-Medicare Part B [id number] ANSI-Medicaid [id number] ANSI-Medicare Part B [id number] ANSI-Medicaid [id number] ANSI-Medicare Part B [id number] ANSI-Medicaid [id number] ANSI-Medicare Part B [id number] ANSI-Medicaid [id number] ANSI-Medicare Part B [id number] [facility] B [id number] ANSI-Medicaid [id number] ANSI-Medicare Part B [id number] ANSI-Medicaid [id number] [facility] ([facility] Commercial [id number] Self [id number] MEDICARE [id number] SP [id number] A Medicaid [facility] Part [facility] [id number] Self [id number] MEDICARE COMPLETE[facility] [id number] S [id number] [facility] [id number] SP [id number] [facility] [id number] SP [id number] Medicaid [place] Medig[place] Part B [id number] Self [id number] [place] Part B [id number] Self [id number] MEDICARE COMPLETE [id number] SP [id number] [facility] [id number] SP [id number] MEDICARE [id number] SP [id number] A MEDICARE UNAVAILABLE SP UNAVAILA BLE ANSI-Medicaid [id number] [facility] MCRO [id number] SP [id number] MEDICARE COMPLETE [id number] SP [id number] MEDICARE COMPLETE [id number] SP [id number] MEDICARE COMPLETE [id number] SP [id number] [place] [id number] SP [id number] [facility](MCAID) O [id number] S [id number] MEDICAID M [id number] S [id number] [facility] MCRO [id number] SP [id number] MEDICARE COMPLETE[facility] O [id number] S [id number] [facility] [id number] SP [id number] [facility] [id number] SP [id number] ANSI-Medicare Part B [id number] ANSI-Medicaid [id number] ANSI-Medicare Part B [id number] ANSI-Medicaid [id number] MEDICAID [id number] SP [id number] ANSI-Medicare Part B [id number] ANSI-Medicaid [id number] [facility]-Medicaid [id number] ANS-Medicare Part B [id number] ANSI-Medicare Part B [id number] ANSI-Medicaid [id number] Medicaid [place] Med[place] Part B [id number] Self [id number] Problems, Conditions, and Diagnoses Code Display Name Description Problem Type Effective Dates Data Source(s) R55 Syncope and collapse Syncope and collapse Diagnosis 11/07/2020 01:47:44 PM EDT [facility] R42 Dizziness and giddiness Dizziness and giddiness Diagno sis 11/07/2020 01:47:44 PM EDT [facility] I10 Essential (primary) hypertension Essential (primary) h ypertension Diagnosis 10/29/2020 12:48:27 PM EDT [facility] I73.9 Peripheral vascular disease, unspecified Peripheral vascular disease, unspecified Diagnosis 10/29/2020 12:48:27 PM EDT [facility] R06.00 Dyspnea, unspecified Dyspnea, unspecified Diagnosis 10/29/2020 12:48:27 PM EDT [facility] I67.1 Cerebral aneurysm, nonruptured Cerebral aneurysm, nonr uptured Diagnosis 06/27/2020 10:19:23 AM EDT [facility] E16.2 [id number] Hypoglycemia Problem 10/19/2020 12:00:00 AM EDT [facility] ([facility]) Z95.828 [id number] S/P insertion of iliac artery stent Probl em 10/16/2020 12:00:00 AM EDT [facility] ([facility]) I10 Essential hypertension Essential hypertension [id number] 09/13/2020 12:00:00 AM EDT [facility] I73.9 PAD (peripheral artery disease) PAD (peripheral artery disease) [id number] 08/29/2020 12:00:00 AM EDT [facility] R42 Postural dizziness with presyncope Postural dizz iness with presyncope [id number] 08/29/2020 12:00:00 AM EDT [facility] R06.00 Dyspnea on exertion Dyspnea on exertion [id number] 0 08/29/2020 12:00:00 AM EDT [facility] I95.1 Orthostatic hypotension Orthostatic hypotension Proble m 04/18/2020 12:00:00 AM EST [facility] ([facility], ) I67.1 Cerebral arterial aneurysm Cerebral arterial aneurysm Problem 04/18/2020 12:00:00 AM EST [facility] ([facility], ) I65.23 Carotid artery occlusion Carotid artery occlusion Prob hal 04/18/2020 12:00:00 AM EST [facility] ([facility], ) 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 Problem 03/07/2020 12:00:00 AM EST [facility] ([facility], ) I63.032 Cerebral infarction due to internal reid tid artery occlusion Cerebral infarction due to internal carotid artery occlusion Problem 12:00:00 AM EST [facility] ([facility], ) Surgeries/Procedures Procedure Description Date Indications Data Source(s) OFFICE OUTPATIENT VISIT 25 MINUTES 11/12/2020 12:00:00 AM EDT [facility] ([facility] ) OFFICE OUTPATIENT VISIT 15 MINUTES 11/09/2020 12:00:00 AM EDT [facility] ([facility], ) OFFICE OUTPATIENT VISIT 15 MINUTES 11/08/2020 12:00:00 AM EDT MARQUITA ([facility], ) ECG ROUTINE ECG W/LEAST 12 LDS W/I&R <td>POCT AMB EKG</td><td>Routine</td><td>10/29/2020 4:08 PM EDT</td><td> Postural dizziness with presyncope</td><td> </td> 10/29/2020 04:08:00 PM EDT Postural dizziness with presyncope [facility] Postural dizziness with presyncope D DIMER DIC SCREEN <td>D DIMER DIC SCREEN</td><td>Routine</td><td>10/07/2020</td><td></td><td></td> 10/07/2020 12:00:00 AM EDT [facility] TROPONIN QUANTITATIVE <td>TROPONIN I</td><td>Routine</td><td>10/07/2020</td><td></td><td> </td> 10/07/2020 12:00:00 AM EDT [facility] BLOOD COUNT COMPLETE AUTO&AUTO DIFRNTL WBC COUNT <td>C BC AND DIFFERENTIAL</td><td>Routine</td><td>10/07/2020</td><td></td><td> </td> 10/07/2020 12:00:00 AM EDT [facility] BASIC METABOLIC PANEL CALCIUM TOTAL <td>BASIC METABOLI C PANEL</td><td>Routine</td><td>10/07/2020</td><td></td><td> </td> 10/07/2020 12:00:00 AM EDT [facility] Spirometry 09/04/2020 12:00:00 AM EDT Kelley GONZALEZ ([facility], ) OFFICE OUTPATIENT VISIT 25 MINUTES 09/04/2020 12:00:00 AM EDT [facility] ([facility], ) ECG ROUTINE ECG W/LEAST 12 LDS W/I&R <td>POCT AMB EKG</td><td>Routine</td><td>08/29/2020 9:01 PM EDT</td><td> Dyspnea on exertion</td><td> </td> 08/29/2020 09:01:00 PM EDT Dyspnea on exertion [facility] Dyspnea on exertion OFFICE OUTPATIENT VISIT 15 MINUTES 08/13/2020 12:00:00 AM EDT [facility] ([facility], ) BASIC METABOLIC PANEL CALCIUM TOTAL <td>BASIC METABOLI C PANEL</td><td>Routine</td><td>08/13/2020</td><td></td><td> </td> 08/13/2020 12:00:00 AM EDT [facility] OFFICE OUTPATIENT VISIT 5 MINUTES 08/10/2020 12:00:00 AM EDT [facility] ([facility]) OFFICE OUTPATIENT VISIT 25 MINUTES 08/06/2020 12:00:00 AM EDT [facility] ([facility]) BASIC METABOLIC PANEL CALCIUM TOTAL <td>BASIC METABOLI C PANEL</td><td>Routine</td><td>08/02/2020</td><td></td><td> </td> 08/02/2020 12:00:00 AM EDT [facility] Magnetic Resonance Angiogtaphy Head W/O Contrast Material(S) 08/01/2020 12:00:00 AM EDT [facility] Magnetic Resonance Angiogtaphy Head W/O Contrast Material(S) 08/01/2020 12:00:00 AM EDT [facility] ([facility] TROPONIN QUANTITATIVE <td>TROPONIN I</td><td>Routine</td><td>07/30/2020</td><td></td><td> </td> 07/30/2020 12:00:00 AM EDT [facility] BLOOD COUNT COMPLETE AUTO&AUTO DIFRNTL WBC COUNT <td>C BC AND DIFFERENTIAL</td><td>Routine</td><td>07/30/2020</td><td></td><td> </td> 07/30/2020 12:00:00 AM EDT [facility] HEPATIC FUNCTION PANEL <td>HEPATIC FUNCTION PANEL</td><td>Routine</td><td>07/30/2020</td><td></td><td> </td> 07/30/2020 12:00:00 AM EDT [facility] PHYSICIAN TELEPHONE EVALUATION 11-20 MIN 07/20/2020 12 :00:00 AM EDT [facility] ([facility] ) OFFICE OUTPATIENT VISIT 25 MINUTES 07/19/2020 12:00:00 AM EDT [facility] ([facility] ) Spirometry 05/30/2020 12:00:00 AM EDT M [facility] ([facility], ) OFFICE OUTPATIENT VISIT 25 MINUTES 05/30/2020 12:00:00 AM EDT [facility] ([facility], ) TOBACCO USE CESSATION INTERMEDIATE 3-10 MINUTES 2020 12:00:00 AM EDT [facility] ([facility], ) ELECTROENCEPHALOGRAM W/REC AWAKE&ASLEEP 05/15/2020 12: 00:00 AM EDT [facility] ([facility], ) ELECTROENCEPHALOGRAM W/REC AWAKE&ASLEEP 05/15/2020 12: 00:00 AM EDT [facility] ([facility], ) OFFICE OUTPATIENT VISIT 25 MINUTES 05/11/2020 12:00:00 AM EDT [facility] ([facility], ) Endoscopy Upper GI Biopsy 04/27/2020 12:00:00 AM EST [facility] ([facility], ) Colonoscopy Flexible Proximal To Splenic Flexure W/Biopsy Si ngle/ 04/27/2020 12:00:00 AM EST [facility], ) OFFICE OUTPATIENT VISIT 25 MINUTES 04/09/2020 12:00:00 AM EST [facility] ([facility], ) THYROID STIMULATING HORMONE TSH <td>TSH</td><td>Routine</td><td>04/09/2020</td><td></td><td> </td> 04/09/2020 12:00:00 AM EST [facility] BASIC METABOLIC PANEL CALCIUM TOTAL <td>BASIC METABOLI C PANEL</td><td>Routine</td><td>04/09/2020</td><td></td><td> </td> 04/09/2020 12:00:00 AM EST [facility] TSTG ANS FUNCJ CARDIOVAGAL INNERVAJ PARASYMP 12:00:00 AM EST [facility] ([facility], ) TESTING AUTONOMIC NERVOUS SYSTEM FUNCTION 03/28/2020 1 2:00:00 AM EST [facility] ([facility], ) Magnetic Resonance Angiogtaphy Head W/O Contrast Material(S) 03/17/2020 12:00:00 AM EST [facility] ([facility] ) Magnetic Resonance Angiogtaphy Head W/O Contrast Material(S) 03/17/2020 12:00:00 AM EST [facility] ([facility] ) MRI BRAIN BRAIN STEM W/O CONTRAST MATERIAL 03/17/2020 12:00:00 AM EST [facility] ([facility], ) MRI BRAIN BRAIN STEM W/O CONTRAST MATERIAL 03/17/2020 12:00:00 AM EST [facility] ([facility] ) Balance Forward 02/22/2020 12:00:00 AM EST [facility] ([facility], ) Spirometry 01/30/2020 12:00:00 AM EST [facility] ([facility], ) Results ID Date Data Source [id number] 11/16/2020 11:15:32 AM EDT [facility] Name Value Range Interpretation Code Description Data Connie rce(s) Supporting Document(s) &PDF [facility] [id number]Z5oS8bKSRhCQX5yATJy pYy [file] [id number]= ID Date Data Source [id number] 10/07/2020 11:10:00 AM EDT [facility] Name Value Range Interpretation Code Description Data Connie rce(s) Supporting Document(s) SARS coronavirus 2 RNA [Presence] in Res piratory specimen by [facility] with probe detection NEGATIVE [facility] This lab was ordered by [facility] a nd reported by [facility]. ID Date Data Source [id number] 09/04/2020 01:41:00 PM EDT [facility] ([facility], ) Name Value Range Interpretation Code Description Data Connie rce(s) Supporting Document(s) PDFReport Laboratory test result [facility] ([facility], ) FVC-Pred 3.53 L [facility] ([facility]) FVC-%Pred-Pre 53 L [facility] ([facility]) FVC-LLN 2.79 L [facility] ([facility]) FVC-Pre 1.88 L [facility] ([facility]) Fev1-Pred 2.72 L [facility] ([facility]) Fev1-Pre 0.93 L [facility] ([facility]) Fev1-%Pred-Pre 34 L [facility] ([facility]) Fev1-LLN 2.10 L [facility] ([facility]) Fev6-Pre 1.87 L [facility] ([facility]) Fev6-Pred 3.40 L [facility] ([facility]) Ikw9kmg-Yjld 78 % [facility] ([facility]) Fev6-%Pred-Pre 54 L [facility] ([facility]) Fev6-LLN 2.68 L [facility] ([facility]) Ufi5kyx-%Pred-Pre 63 % [facility] ([facility]) Wqc3xpk-Uqg 49 % [facility] ([facility]) Bml8fds-SRS 68 % [facility] ([facility]) Jqc1ayb-%Pred-Pre 103 % [facility] ([facility]) Krm3zkr-Evo 99 % [facility] ([facility]) Nxi8lbb-Onyr 96 % [facility] ([facility]) FEFMax-Pred 6.55 L/E/sec [facility] ([facility]) FEFMax-%Pred-Pre 27 L/E/sec [facility] ([facility]) FEFMax-Pre 1.80 L/E/sec [facility] ([facility]) Ybm7291-Ronu 2.42 L/E/sec [facility] ([facility]) FEFMax-LLN 4.73 L/E/sec [facility] ([facility]) Snw5685-Sta 0.39 L/E/sec [facility] ([facility]) ExpTime-Pre 6.31 sec [facility] ([facility]) Afi5299-%Pred-Pre 16 L/E/sec [facility] ([facility]) Pih7190-TRP 1.10 L/E/sec [facility] ([facility] ) Aei0jgr5-Ijed 81 % [facility] ([facility]) Vss1vxx8-Dsx 50 % [facility] ([facility]) Ajr7zuh1-%Pred-Pre 61 % [facility] ([facility]) Fqo5wha8-GCT 72 % [facility] ([facility]) ID Date Data Source [id number] 08/08/2020 12:45:54 PM EDT [facility] Name Value Range Interpretation Code Description Data Connie rce(s) Supporting Document(s) Progress Note [facility] [id number] lbm [file] [id number] ID Date Data Source [id number] 08/02/2020 03:13:00 PM EDT [facility] ([facility]) Name Value Range Interpretation Code Description Data Connie rce(s) Supporting Document(s) Blood Urea Nitrogen 6 mg/dL 7-18 [facility] ([facility]) Glucose, Fasting 92 mg/dL 70-100 [facility] ([facility]) Glomerular Filtration Rate Laboratory test result [facility] ([facility]) <content>Units are mL/min/1.73 m2</content>
<content></content>
<content>Chronic Kidney Disease Staging per NK[facility]:</content>
<content></content>
<content>Stage I & II GFR >=60 Normal to Mildly Decreased</content>
<content>Stage III GFR 30- 59 Moderately Decreased</content>
<content>Stage IV GFR 15-29 Severely Decreased</content>
<content>Stage V GFR <15 Very Little GFR Left</content>
<content>ESRD GFR <15 on DRYING CAN WORKER</content>
<content></content> Creatinine For GFR 0.90 mg/dL 0.55-1.30 [facility] ([facility]) Sodium Level 144 meq/L 136-145 [facility] ([facility]) Potassium Serum 3.3 meq/L 3.5-5.1 [facility] ([facility]) Chloride Level 113 meq/L 98-107 [facility] ([facility] Carbon Dioxide Level 27 meq/L 21-32 [facility] ([facility]) Calcium Level 8.8 mg/dL 8.8-10.2 [facility] ([facility]) Anion Gap 4 meq/L 8-16 [facility] ([facility]) ID Date Data Source [id number] 07/20/2020 09:43:00 AM EDT [facility] ([facility]) Name Value Range Interpretation Code Description Data Connie rce(s) Supporting Document(s) Calcidiol [Mass/volume] in Serum or Plasma 35.9 ng/mL 30.0-100.0 [facility] ([facility]) ID Date Data Source [id number] 07/20/2020 09:43:00 AM EDT [facility] ([facility]) Name Value Range Interpretation Code Description Data Connie rce(s) Supporting Document(s) Glucose, Fasting 77 mg/dL 70-100 [facility] ([facility]) Blood Urea Nitrogen 4 mg/dL 7-18 [facility] ([facility] Creatinine For GFR 0.97 mg/dL 0.55-1.30 [facility] ([facility]) Glomerular Filtration Rate Laboratory test result [facility] ([facility]) <content>Units are mL/min/1.73 m2</content>
<content></content>
<content>Chronic Kidney Disease Staging per [facility]:</content>
<content></content>
<content>Stage I & II GFR >=60 Normal to Mildly Decreased</content>
<content>Stage III GFR 30- 59 Moderately Decreased</content>
<content>Stage IV GFR 15-29 Severely Decreased</content>
<content>Stage V GFR <15 Very Little GFR Left</content>
<content>ESRD GFR <15 on DRYING CAN WORKER</content>
<content></content> Potassium Serum 3.1 meq/L 3.5-5.1 [facility] ID Date Data Source [id number] 06/27/2020 01:43:14 PM EDT [facility] Name Value Range Interpretation Code Description Data Connie rce(s) Supporting Document(s) Progress Note [facility] [id number] lbm [file] AgICAgICAgICAgICAgICAgICAgICAgICAgICAgICAgICAgICAgICAgICAgICAgICAgICAgICAgICAgIC AgICAgICAgICAgICAgICAgICAgICAgICAgICAgICAgICAgICANCiAgICAgICAgICAgICAgICAgICAgIC AgICAgICAgICAgICAgICAgICAgICAgICAgICAgICAg ICAgICAgICAgICAgICAgICAgICAgICAgICAgICAgICAgICAgICAgICAgICAgICANCiAgICAgICAgICAg ICAgICAgICAgICAgICAgICAgICAgICAgICAgICAgICAgICAgICAgICAgICAgICAgICAgICAgICAgICAg ICAgICAgICAgICAgICAgICAgICAgICAgICAgICANCi AgICAgICAgICAgICAgICAgICAgICAgICAgICAgICAgICAgICAgICAgICAgICAgICAgICAgICAgICAgIC AgICAgICAgICAgICAgICAgICAgICAgICAgICAgICAgICAgICAgICANCiAgICAgICAgICAgICAgICAgIC AgICAgICAgICAgICAgICAgICAgICAgICAgICAgICAg ICAgICAgICAgICAgICAgICAgICAgICAgICAgICAgICAgICAgICAgICAgICAgICAgICANCiAgICAgICAg ICAgICAgICAgICAgICAgICAgICAgICAgICAgICAgICAgICAgICAgICAgICAgICAgICAgICAgICAgICAg ICAgICAgICAgICAgICAgICAgICAgICAgICAgICAgIC ANCiAgICAgICAgICAgICAgICAgICAgICAgICAgICAgICAgICAgICAgICAgICAgICAgICAgICAgICAgIC AgICAgICAgICAgICAgICAgICAgICAgICAgICAgICAgICAgICAgICAgICANCiAgICAgICAgICAgICAgIC AgICAgICAgICAgICAgICAgICAgICAgICAgICAgICAg ICAgICAgICAgICAgICAgICAgICAgICAgICAgICAgICAgICAgICAgICAgICAgICAgICAgICANCiAgICAg ICAgICAgICAgICAgICAgICAgICAgICAgICAgICAgICAgICAgICAgICAgICAgICAgICAgICAgICAgICAg ICAgICAgICAgICAgICAgICAgICAgICAgICAgICAgIC AgICANCiAgICAgICAgICAgICAgICAgICAgICAgICAgICAgICAgICAgICAgICAgICAgICAgICAgICAgIC AgICAgICAgICAgICAgICAgICAgICAgICAgICAgICAgICAgICAgICAgICAgICANCjw/gYKtG7xgzCHiat B9D6mjJi5OUa7REQ9ox5QpIGTtROaktoHpDgsFRqHt MEKcTwzDPiz9JBgsEH8BgIUqR2RtG7UtZPbjCL0XBAImHJBynTAvPPOsQZHuBaI4IGAxHGhqKH5CdSLc FLnqCYRqSYZwUpYfVXMtJIPnZXLgEERzEKNRRGRiBSLqOpCxABawOX0Mv6YhfLM5WEi+Op9BBS5nz4So HFnlNRYgGO3hdl3HKNyCUaKaP6LtywV6HEAmBCVdNu 3IXVZxQEAzvKOaKRNcGOKIFeLfG8KyaG43WKRKQt0+UVhdnoYvEwjAVaSqJSFec7CcDRa2TE2PHMPiYL w6fQKyMADfE8Vkk4GnLr20SOAhIbfiR5ZlNH0fOiCGvKRbtczjPKNqYPSkBD0hWo0gNBTrDRQaIiWdRN BCSO0LHROqJYKbcWUkOZLuYYWRPV8KXBjlXMN8KKMr ccBqiMFpWLjpPG5MHTVawaOcIdIyWKDBFVj+Pc5QKR3ie7FrFCweTmKoUC5obu2IKLdJGiDfW8N0sSLc A7I2EIejFx9UAAOiNEAiSaexRNZZHSnaAN7KJT8wasE0AZ5XwTXnJRAbGEXqzROiAZr1C14xbYGjWSvw FU5FSGW+Osito+Bz8IEHYxSHThEYGhNeAsGPWTWeHmH8 DfV6MVp6EaX6PyPW40mTyuvsBvPJxuOO3JZW7lDTYtQFOZPA9GcHUmaK7vunUnVQYoTIMTXmJmX20pjX VjEVHoSFK4ZIXhKz2GLMGeX1UqxjXolCwwhzHiJDXaAEWFPE0DNIcdxyQblPKrmWnuPR78rFoqRM5IGh 0YGsPvUP5ete8BwJAyVb7FNGDbMq9COMWbGAYxQALb RTO4QKHwRyOpHMokTZGaIPWfGID5JTMoUBWgUA0TWkSbUNYdWgLhGOKwRSJxQQYmjg0PMJWtQCRyXuAp HrPhXRDyMWJbLQjoERLwPOTrKWV7QOFyKXXgKN4KHtTbDKVjYKHlOCqjMRPgIWAmvx5ZKNBlUUSuEYL5 JdTmPRQoJDOoCEqiXMBbQGD2WhA5GJNhQNSgTC8UYx LpGQGtRVB5WsCqSOMjXMXpdi0WFZHxBKVwOSF0KNAfBSGvNOAiQDtdBDCmVLG6VLE8BOGuYKWaJA6DZm BjSQWgSUX6KuJiJAZhQEXtyw0WPFDjDETmUbY6MJNaLISvUJCeNRyaGVAySGRxTep2IOTxOWWlGF2EHz DcVJSaMZWwGBWmXOEaBEJobq9CWQDqPAKiTPg1CXQm SBImCERqDJyqCWSbOBD6OSL5TEWlYIAjOK8ZYfIqRXGlFFLlGARzQSKlGLMtcs2VOOOuOFJnSxD8LSZw ETAtQADoHLigGFNwIGH1ZNInIYNrBTCbTQ5WQbThKCGqRIP4WVukPFSzJDYwrj9TTBKwKCIjOBWqKCXi PUIxETRnSJaaFTMiXYC7GHT4ISCkVBOmDT9QOqBdQV FmThc5GHSmUTFjJVGgpw7HFBYyTOKxAYawMxDlTQLhBSWwJJylLSLwFPX1AUR5EZZrAJSzYE9IUfJjLF ElQaj9SMIbNCBwNMDwsx9SAUAeOCOpRHU9GKRgHLOdISDvAJchGTUyQUBgReQ7BEEaQFRlGI3WHeZiTM JyThW9UvHxXLZwDVVmtc5VLUJmXOAhZgA8ZVEiAICj KRJpMHoqDIQfYYLsIkBoJOAnDOKbBP2DIqCdPHPtCcE1PUuyIUTeGXIesi8PrTAyiVwmuq1RCBcNUn0C cYsnEJEySIlzQi2sbXVpOrFeUORHRm2DpkAvSHMuGYNIGDlsWSZvWMOgL1LwU3WbOKLoEWDcORAgXUNe JrMsSHRvWZA0MakwKvV3RiI6NvObXIJ1L3VoHERxQd P9RRGaQGN7BsB0GitcVWT+EZ7bYAa+Fg8Cr7MsrvR9weTyGQlxNkplEd5YLRSYH8BUKp== ID Date Data Source [id number] 06/18/2020 10:45:00 AM EDT [facility] Name Value Range Interpretation Code Description Data Connie rce(s) Supporting Document(s) SARS-CoV-2 (COVID-19) RNA [Presence] in Respiratory specimen by [facility]ERVA with probe detection Not Detected [facility] This lab was ordered by [facility] and reported by [employer] ID Date Data Source [id number] 05/30/2020 09:23:00 AM EDT [facility] ([facility], ) Name Value Range Interpretation Code Description Data Connie rce(s) Supporting Document(s) PDFReport Laboratory test result [facility] ([facility], ) FVC-Pre 1.71 L [facility] ([facility]) FVC-Pred 3.53 L [facility] ([facility]) FVC-LLN 2.79 L [facility] ([facility]) Fev1-Pred 2.72 L [facility] ([facility]) FVC-%Pred-Pre 48 L [facility] ([facility]) Fev1-LLN 2.10 L [facility] ([facility]) Fev1-%Pred-Pre 32 L [facility] ([facility]) Fev1-Pre 0.89 L [facility] ([facility]) Fev6-%Pred-Pre 50 L [facility] ([facility]) Fev6-Pre 1.71 L [facility] ([facility]) Fev6-Pred 3.40 L [facility] ([facility]) Aoq8vek-Pviz 78 % [facility] ([facility]) Fev6-LLN 2.68 L [facility] ([facility]) Vbu2xux-Zeq 52 % [facility] ([facility]) Jhn6pcb-WIX 68 % [facility] ([facility]) Aka6cwb-%Pred-Pre 67 % [facility] ([facility]) Swb2nbz-Sjo 100 % [facility] ([facility]) Xll0ocs-%Pred-Pre 103 % [facility] ([facility]) Ymi7jef-Ptvp 96 % [facility] ([facility]) FEFMax-%Pred-Pre 20 L/E/sec [facility] ([facility]) FEFMax-Pre 1.31 L/E/sec [facility] ([facility]) FEFMax-Pred 6.55 L/E/sec [facility] ([facility]) FEFMax-LLN 4.73 L/E/sec [facility] ([facility]) Rjh6557-Llw 0.43 L/E/sec [facility] ([facility]) Arf4637-Hjoi 2.42 L/E/sec [facility] ([facility]) Kpc5670-%Pred-Pre 17 L/E/sec [facility] ([facility]) ExpTime-Pre 6.18 sec [facility] ([facility]) Vtr9237-WUV 1.10 L/E/sec [facility] ([facility]) Mhf5jgv7-Achx 81 % [facility] ([facility]) Sym3kpv7-%Pred-Pre 64 % [facility] ([facility]) Erp0knu4-Qjh 52 % [facility] ([facility]) Tvt1mzd6-SBX 72 % [facility] ([facility]) ID Date Data Source [id number] 04/27/2020 01:55:00 PM EST [facility] ([facility]) Name Value Range Interpretation Code Description Data Connie rce(s) Supporting Document(s) Surgical pathology study Laboratory test result [facility] ([facility]) FINAL DIAGNOSIS A - Duodenum, biopsy: [...] MD 05/01/2020 1335 ID Date Data Source [id number] 04/22/2020 11:00:00 AM EST [facility] Name Value Range Interpretation Code Description Data Connie rce(s) Supporting Document(s) SARS coronavirus 2 RNA Not Detected [facility] This lab was ordered by [facility] and reported by [facility]. ID Date Data Source [id number] 04/10/2020 02:45:00 PM EST [facility] ([facility], ) Name Value Range Interpretation Code Description Data Connie rce(s) Supporting Document(s) Campylobacter Laboratory test result [facility] ([facility], ) Laboratory test finding (navigational concept) Laboratory test result [facility] ([facility]) Laboratory test finding (navigational concept) Laboratory test result [facility] ([facility]) Salmonella Laboratory test result [facility] ([facility]) Laboratory test finding (navigational concept) Laboratory test result [facility] ([facility]) Laboratory test finding (navigational concept) Laboratory test result [facility] ([facility]) Laboratory test finding (navigational concept) Laboratory test result [facility] ([facility]) Laboratory test finding (navigational concept) Laboratory test result [facility] ([facility]) Laboratory test finding (navigational concept) Laboratory test result [facility] ([facility]) Laboratory test finding (navigational concept) Laboratory test result [facility] ([facility]) Laboratory test finding (navigational concept) Laboratory test result [facility] ([facility]) Laboratory test finding (navigational concept) Laboratory test result [facility] ([facility]) Laboratory test finding (navigational concept) Laboratory test result [facility] ([facility], ) Cryptosporidium Laboratory test result [facility] ([facility]) Laboratory test finding (navigational concept) Laboratory test result [facility] ([facility]) Giardia lamblia Laboratory test result [facility] ([facility]) Entamoeba histolytica Laboratory test result [facility] ([facility], ) Laboratory test finding (navigational concept) Laboratory test result [facility] ([facility]) Laboratory test finding (navigational concept) Laboratory test result [facility] ([facility]) Laboratory test finding (navigational concept) Laboratory test result [facility] ([facility]) Laboratory test finding (navigational concept) Laboratory test result [facility] ([facility]) Laboratory test finding (navigational concept) Laboratory test result [facility] ([facility]) Performed at: [address] [id number] Business Relations Manager: Gabo Stephens MD, Phone: [phone] Not Detected ID Date Data Source [id number] 04/10/2020 02:45:00 PM EST [facility] ([facility]) Name Value Range Interpretation Code Description Data Connie rce(s) Supporting Document(s) Calprotectin [Mass/mass] in Stool 41 ug/g 0-120 Normal (applies to non-numeric results) [facility] ) <content>Concentration Interpretatio n Follow-Up</content>
<content><16 - 50 ug/g Normal None</content>
<content>>50 -120 ug/g Borderline Re-evaluate in 4-6 weeks</content>
<content>>120 ug/g Abnormal Repeat as clinically</content>
<content>indicated</content>
<content>Performed at: [facility]</content>
<content>[address], [place] [id number]</content>
<content>Business Relations Manager: Lilian Grider MD, Phone: [phone]</content>
<content>Performed at: [facility]</content>
<content>[address], [place] [id number]</content>
<content>Business Relations Manager: Gabo Stephens MD, Phone: [phone]</content>
<content></content> ID Date Data Source [id number] 04/10/2020 02:45:00 PM EST [facility] ([facility]) Name Value Range Interpretation Code Description Data Connie rce(s) Supporting Document(s) Fats Neutral Laboratory test result Normal (applies to non -numeric results) [facility] ([facility]) <content>Normal (<60 Droplets/HPF)</cont ent>
<content></content> Fats Total Laboratory test result Normal (applies to non-n umeric results) [facility] ([facility]) <content>Normal (<100 Droplets/HPF)</con tent>
<content></content> ID Date Data Source [id number] 04/10/2020 02:45:00 PM EST [facility] ([facility]) Name Value Range Interpretation Code Description Data Connie rce(s) Supporting Document(s) Elastase.pancreatic [Mass/mass] in Stool 449 Normal (applies to non-numeric results) [facility] ([facility]) <content>Result Units: ug Elast./g</cont ent>
<content>Severe Pancreatic Insufficiency: <100</content>
<content>Moderate Pancreatic Insufficiency: 100 - 200</content>
<content>Normal: >200</content>
<content></content> ID Date Data Source [id number] 04/09/2020 01:13:00 PM EST [facility] ([facility]) Name Value Range Interpretation Code Description Data Connie rce(s) Supporting Document(s) Amylase [Enzymatic activity/volume] in Serum or Plasma 49 U/L 25-115 Normal (applies to non-numeric results) [facility] Lipoprotein lipase [Enzymatic activity/volume] in Serum or Plasm a 81 U/L 73-393 Normal (applies to non-numeric results) [facility] ([facility]) 04/11/20 (ThuApr 11) 04:06 PM SUSIE FALCON Pancreatic enzymes normal. ID Date Data Source [id number] 04/09/2020 01:13:00 PM EST [facility]) Name Value Range Interpretation Code Description Data Connie rce(s) Supporting Document(s) Tissue transglutaminase IgA Ab [Units/volume] in Serum Labor atory test result 0-3 Normal (applies to non-numeric results) [facility]) Negative 0 - 3 Weak Positive 4 - 10 Positive >10 . Tissue Transglutaminase (tTG) has been identified as the endomysial antigen. Studies have demonstr- ated that endomysial IgA antibodies have over 99% specificity for gluten sensitive enteropathy. Performed at: RN - [facility] [address] [id number] Business Relations Manager: Lilian Grider MD, Phone: [phone] IgA [Mass/volume] in Serum or Plasma 161.0 mg/dL 70-400 Normal (applies to non- numeric results) [facility] ([facility]) ID Date Data Source [id number] 04/09/2020 01:13:00 PM EST [facility]) Name Value Range Interpretation Code Description Data Connie rce(s) Supporting Document(s) Thyroid Stimulating Hormone 0.715 uIU/ML 0.358-3.740 Norm al (applies to non- numeric results) [facility] ([facility]) Free T4 1.03 ng/dL 0.76-1.46 Normal (applies to non-numeric resul ts) [facility]) 04/11/20 (ThuApr 11) 04:06 PM SUSIE TYSHAWNLANDON Thyroid function normal. ID Date Data Source [id number] 04/09/2020 01:13:00 PM EST [facility]) Name Value Range Interpretation Code Description Data Connie rce(s) Supporting Document(s) White Blood Count 7.4 10 4.0-10.0 Normal (applies to non-numeri c results) [facility] ([facility], ) Red Blood Count 5.20 10 4.00-5.40 Normal (applies to non-numeric results) [facility] ([facility], ) Hemoglobin 14.7 g/dL 12.0-15.5 Normal (applies to non-numeric resul ts) [facility]) Hematocrit 46.4 % 36.0-47.0 Normal (applies to non-numeric resul ts) [facility] ([facility]) Mean Corpuscular Hemoglobin 28.3 pg 27.0-33.0 Norm al (applies to non-numeric results) [facility] ([facility]) Mean Corpuscular Volume 89.2 fl 80.0-96.0 Normal ( applies to non-numeric results) [facility] ([facility]) Mean Corpuscular HGB Conc 31.7 g/dL 32.0-36.5 Below low normal [facility] ([facility]) Red Cell Distribution Width 19.9 % 11.5-14.5 Above high normal [facility] ([facility]) Neutrophils % 57.7 % 36.0-66.0 Normal (applies to non-numeric re sults) [facility] ([facility]) Platelet Count, Automated 294 10 150-450 Normal (applies to non-numeric results) [facility] ([facility]) Hanson % 6.1 % 2.0-8.0 Normal (applies to non-numeric resul ts) [facility] ([facility], ) Lymph % 34.6 % 24.0-44.0 Normal (applies to non-numeric resul ts) [facility] Eos % 0.7 % 0.0-3.0 Normal (applies to non-numeric resul ts) [facility]) Baso % 0.5 % 0.0-1.0 Normal (applies to non-numeric resul ts) [facility]) Nucleated Red Blood Cell % 0.0 % 0-0 Normal (applies to n on-numeric results) [facility]) Immature Granulocyte % 0.4 % 0-3.0 Normal (applies to non-n umeric results) [facility] ([facility]) Lymph # 2.6 10 1.5-5.0 Normal (applies to non-numeric resul ts) [facility]) Neutrophils # 4.3 10 1.5-8.5 Normal (applies to non-numeric re sults) [facility]) Hanson # 0.5 10 0.0-0.8 Normal (applies to non-numeric resul ts) [facility]) Eos # 0.1 10 0.0-0.5 Normal (applies to non-numeric resul ts) [facility]) Baso # 0.0 10 0.0-0.2 Normal (applies to non-numeric resul ts) [facility]) 04/11/20 (ThuApr 11) 04:06 PM SUSIE CHAHALALLIE No significant abnormalities. ID Date Data Source [id number] 04/09/2020 01:13:00 PM EST [facility] ([facility]) Name Value Range Interpretation Code Description Data Connie rce(s) Supporting Document(s) Glucose, Fasting 86 mg/dL 70-100 Normal (applies to non-numeric results) [facility] ([facility]) Blood Urea Nitrogen 9 mg/dL 7-18 Normal (applies to non-nume sarah results) [facility] ([facility]) Creatinine For GFR 0.92 mg/dL 0.55-1.30 Normal (applies to non -numeric results) [facility] ([facility]) Glomerular Filtration Rate Laboratory test result Normal (applies to non- numeric results) [facility]) <content>Units are mL/min/1.73 m2</content>
<content></content>
<content>Chronic Kidney Disease Staging per NKF:</content>
<content></content>
<content>Stage I & II GFR >=60 Normal to Mildly Decreased</content>
<content>Stage III GFR 30- 59 Moderately Decreased</content>
<content>Stage IV GFR 15-29 Severely Decreased</content>
<content>Stage V GFR <15 Very Little GFR Left</content>
<content>ESRD GFR <15 on DRYING CAN WORKER</content>
<content></content> Sodium Level 145 meq/L 136-145 Normal (applies to non-numeric res ults) [facility] ([facility], ) Potassium Serum 3.6 meq/L 3.5-5.1 Normal (applies to non-numeric results) [facility] ([facility], ) Chloride Level 112 meq/L 98-107 Above high normal [facility] ([facility]) Carbon Dioxide Level 28 meq/L 21-32 Normal (applies to non-num hoa results) [facility] ([facility]) Calcium Level 8.8 mg/dL 8.8-10.2 Normal (applies to non-numeric re sults) [facility] ([facility], ) Anion Gap 5 meq/L 8-16 Below low normal [facility] ( [facility], ) Alt/SGPT 24 U/L 12-78 Normal (applies to non-numeric resul ts) [facility] ([facility], ) Alkaline Phosphatase 137 U/L 45-117 Above high normal [facility] Ast/Sgot 22 U/L 7-37 Normal (applies to non-numeric resul ts) [facility] ([facility], ) Bilirubin,Total 0.3 mg/dL 0.2-1.0 Normal (applies to non-numeric results) [facility] ([facility], ) Total Protein 6.8 GM/DL 6.4-8.2 Normal (applies to non-numeric re sults) [facility] ([facility], ) Albumin/Globulin Ratio 1.1 1.2-2.2 Below low normal [facility] 04/11/20 (ThuApr 11) 04:04 PM SUSIE FALCON Slight elevation of Alk. Phos. Will inform patient. See triage. Albumin 3.5 GM/DL 3.2-5.2 Normal (applies to non-numeric resul ts) [facility] ([facility], ) ID Date Data Source [id number] 03/15/2020 02:26:00 PM EST [facility] Name Value Range Interpretation Code Description Data Connie rce(s) Supporting Document(s) SARS COVID ANTIGEN NEGATIVE [facility] This lab was ordered by PAULA ryan nd reported by [facility]. ID Date Data Source [id number] 01/30/2020 01:26:00 PM EST [facility] ([facility], ) Name Value Range Interpretation Code Description Data Connie rce(s) Supporting Document(s) PDFReport Laboratory test result [facility] ([facility]) FVC-Pre 2.32 L [facility] ([facility]) FVC-Pred 3.53 L [facility] ([facility]) FVC-%Pred-Pre 65 L [facility] ([facility]) FVC-LLN 2.79 L [facility] ([facility]) Fev1-%Pred-Pre 43 L [facility] ([facility]) Fev1-Pred 2.72 L [facility] ([facility]) Fev1-Pre 1.17 L [facility] ([facility]) Fev1-LLN 2.10 L [facility] ([facility]) Fev6-Pred 3.40 L [facility] ([facility]) Fev6-LLN 2.68 L [facility] ([facility]) Fev6-Pre 2.27 L [facility] ([facility]) Fev6-%Pred-Pre 66 L [facility] ([facility]) Udy4tgt-Dnj 50 % [facility] ([facility]) Exf9qrj-Kyrz 78 % [facility] ([facility]) Tys8doo-Onfi 96 % [facility] ([facility]) Tzi8pgi-%Pred-Pre 64 % [facility] ([facility]) Wcw7mjt-EEI 68 % [facility] ([facility]) Wnn5fsj-Snd 98 % [facility] ([facility]) Pue6nxh-%Pred-Pre 101 % [facility] ([facility]) FEFMax-Pre 2.07 L/E/sec [facility] ([facility]) FEFMax-Pred 6.55 L/E/sec [facility] ([facility]) FEFMax-LLN 4.73 L/E/sec [facility] ([facility]) FEFMax-%Pred-Pre 31 L/E/sec [facility] ([facility]) Lhh0867-Wlat 2.42 L/E/sec [facility] ([facility]) Hpk9099-Tla 0.51 L/E/sec [facility] ([facility]) Lql5040-%Pred-Pre 21 L/E/sec [facility] ([facility]) ExpTime-Pre 6.78 sec [facility] ([facility]) Flq1308-CYC 1.10 L/E/sec [facility] ([facility]) Yix1flm0-Yshv 81 % [facility] ([facility]) Dae2gsk5-Sgl 52 % [facility] ([facility]) Yft9alf1-%Pred-Pre 64 % [facility] ([facility]) Igo5pkr1-YZC 72 % [facility] ([facility]) ID Date Data Source [id number] 12/30/2019 12:00:00 AM EST [facility] ([facility]) Name Value Range Interpretation Code Description Data Connie rce(s) Supporting Document(s) SARS-CoV-2 (COVID-19) RNA [Presence] in Respiratory specimen by MINERVA with probe detection negative negative Sars-cov-2 [facility] ([facility]) ID Date Data Source [id number] 12/30/2019 12:00:00 AM EST [facility] ([facility]) Name Value Range Interpretation Code Description Data Connie rce(s) Supporting Document(s) ID Date Data Source [id number] 12/30/2019 12:00:00 AM EST [facility] ([facility]) Name Value Range Interpretation Code Description Data Connie rce(s) Supporting Document(s) SARS-CoV-2 (COVID-19) RNA [Presence] in Respiratory specimen by MINERVA with probe detection negative negative Sars-cov-2 [facility] ([facility]) ID Date Data Source [id number] 12/30/2019 12:00:00 AM EST [facility] ([facility]) Name Value Range Interpretation Code Description Data Connie rce(s) Supporting Document(s) ID Date Data Source [id number] 12/30/2019 12:00:00 AM EST [facility] ([facility]) Name Value Range Interpretation Code Description Data Connie rce(s) Supporting Document(s) SARS-CoV-2 (COVID-19) RNA [Presence] in Respiratory specimen by MINERVA with probe detection negative negative Sars-cov-2 [facility] ([facility]) ID Date Data Source [id number] 12/30/2019 12:00:00 AM EST [facility] ([facility]) Name Value Range Interpretation Code Description Data Connie rce(s) Supporting Document(s) ID Date Data Source [id number] 12/30/2019 12:00:00 AM EST [facility] ([facility]) Name Value Range Interpretation Code Description Data Connie rce(s) Supporting Document(s) SARS-CoV-2 (COVID-19) RNA [Presence] in Respiratory specimen by MINERVA with probe detection negative negative Sars-cov-2 [facility] ([facility]) ID Date Data Source [id number] 12/30/2019 12:00:00 AM EST [facility] ([facility]) Name Value Range Interpretation Code Description Data Connie rce(s) Supporting Document(s) ID Date Data Source [id number] 12/30/2019 12:00:00 AM EST [facility] ([facility]) Name Value Range Interpretation Code Description Data Connie rce(s) Supporting Document(s) SARS-CoV-2 (COVID-19) RNA [Presence] in Respiratory specimen by MINERVA with probe detection negative negative Sars-cov-2 [facility] ([facility]) ID Date Data Source [id number] 12/30/2019 12:00:00 AM EST [facility] ([facility]) Name Value Range Interpretation Code Description Data Connie rce(s) Supporting Document(s) ID Date Data Source [id number] 12/30/2019 12:00:00 AM EST [facility] ([facility]) Name Value Range Interpretation Code Description Data Connie rce(s) Supporting Document(s) SARS coronavirus 2 RNA [Presence] in Res piratory specimen by MINERVA with probe detection negative negative Sars-cov-2 [facility] ([facility]) ID Date Data Source [id number] 12/30/2019 12:00:00 AM EST [facility] ([facility]) Name Value Range Interpretation Code Description Data Connie rce(s) Supporting Document(s) ID Date Data Source [id number] 12/30/2019 12:00:00 AM EST [facility] ([facility]) Name Value Range Interpretation Code Description Data Connie rce(s) Supporting Document(s) SARS coronavirus 2 RNA [Presence] in Res piratory specimen by MINERVA with probe detection negative negative Sars-cov-2 [facility] ([facility]) ID Date Data Source [id number] 12/30/2019 12:00:00 AM EST [facility] ([facility]) Name Value Range Interpretation Code Description Data Connie rce(s) Supporting Document(s) ID Date Data Source [id number] 12/30/2019 12:00:00 AM EST [facility] Name Value Range Interpretation Code Description Data Connie rce(s) Supporting Document(s) SARS-CoV-2 [facility] This lab was ordered by [facility] and reported by [employer]. ID Date Data Source Urinalysis, no micro 12/13/2019 09:52:01 AM EDT eCW1 ([facility]) Name Value Range Interpretation Code Description Data Connie rce(s) Supporting Document(s) trace Leukocyte eCW1 ([facility]) 5 pH eCW1 ([facility]) 1.030 Spec gravity eCW1 ([facility]) neg Nitrate eCW1 ([facility]) 30 Protein eCW1 ([facility]) neg Glucose eCW1 ([facility]) neg Blood eCW1 ([facility]) neg Ketones eCW1 ([facility]) neg Bilirubin eCW1 ([facility]) norm Urobili eCW1 ([facility]) yes Internal QC Acceptable (Y/N) e CW1 ([facility]) ID Date Data Source [id number] 12/10/2019 12:00:00 AM EDT POLO ([facility]) Name Value Range Interpretation Code Description Data Connie rce(s) Supporting Document(s) SARS-CoV-2 (COVID-19) RNA [Presence] in Respiratory specimen by MINERVA with probe detection negative negative Sars-cov-2 POLO ([facility]) ID Date Data Source [id number] 12/10/2019 12:00:00 AM EDT POLO ([facility]) Name Value Range Interpretation Code Description Data Connie rce(s) Supporting Document(s) ID Date Data Source [id number] 12/10/2019 12:00:00 AM EDT POLO ([facility]) Name Value Range Interpretation Code Description Data Connie rce(s) Supporting Document(s) SARS-CoV-2 (COVID-19) RNA [Presence] in Respiratory specimen by MINERVA with probe detection negative negative Sars-cov-2 POLO ([facility]) ID Date Data Source [id number] 12/10/2019 12:00:00 AM EDT POLO ([facility]) Name Value Range Interpretation Code Description Data Connie rce(s) Supporting Document(s) ID Date Data Source [id number] 12/10/2019 12:00:00 AM EDT POLO ([facility]) Name Value Range Interpretation Code Description Data Connie rce(s) Supporting Document(s) SARS-CoV-2 (COVID-19) RNA [Presence] in Respiratory specimen by MINERVA with probe detection negative negative Sars-cov-2 POLO ([facility]) ID Date Data Source [id number] 12/10/2019 12:00:00 AM EDT POLO ([facility]) Name Value Range Interpretation Code Description Data Connie rce(s) Supporting Document(s) ID Date Data Source [id number] 12/10/2019 12:00:00 AM EDT POLO ([facility]) Name Value Range Interpretation Code Description Data Connie rce(s) Supporting Document(s) SARS-CoV-2 (COVID-19) RNA [Presence] in Respiratory specimen by MINERVA with probe detection negative negative Sars-cov-2 POLO ([facility]) ID Date Data Source [id number] 12/10/2019 12:00:00 AM EDT POLO ([facility]) Name Value Range Interpretation Code Description Data Connie rce(s) Supporting Document(s) ID Date Data Source [id number] 12/10/2019 12:00:00 AM EDT POLO ([facility]) Name Value Range Interpretation Code Description Data Connie rce(s) Supporting Document(s) SARS-CoV-2 (COVID-19) RNA [Presence] in Respiratory specimen by MINERVA with probe detection negative negative Sars-cov-2 POLO ([facility]) ID Date Data Source [id number] 12/10/2019 12:00:00 AM EDT POLO ([facility]) Name Value Range Interpretation Code Description Data Connie rce(s) Supporting Document(s) ID Date Data Source [id number] 12/10/2019 12:00:00 AM EDT POLO ([facility]) Name Value Range Interpretation Code Description Data Connie rce(s) Supporting Document(s) SARS coronavirus 2 RNA [Presence] in Res piratory specimen by MINERVA with probe detection negative negative Sars-cov-2 POLO ([facility]) ID Date Data Source [id number] 12/10/2019 12:00:00 AM EDT POLO ([facility]) Name Value Range Interpretation Code Description Data Connie rce(s) Supporting Document(s) ID Date Data Source [id number] 12/10/2019 12:00:00 AM EDT POLO ([facility]) Name Value Range Interpretation Code Description Data Connie rce(s) Supporting Document(s) SARS coronavirus 2 RNA [Presence] in Res piratory specimen by MINERVA with probe detection negative negative Sars-cov-2 POLO ([facility]) ID Date Data Source [id number] 12/10/2019 12:00:00 AM EDT POLO ([facility]) Name Value Range Interpretation Code Description Data Connie rce(s) Supporting Document(s) ID Date Data Source [id number] 12/10/2019 12:00:00 AM EDT POLO ([facility]) Name Value Range Interpretation Code Description Data Connie rce(s) Supporting Document(s) SARS coronavirus 2 RNA [Presence] in Res piratory specimen by MINERVA with probe detection negative negative Sars-cov-2 POLO ([facility]) ID Date Data Source [id number] 12/10/2019 12:00:00 AM EDT POLO ([facility]) Name Value Range Interpretation Code Description Data Connie rce(s) Supporting Document(s) ID Date Data Source [id number] 12/10/2019 12:00:00 AM EDT POLO ([facility]) Name Value Range Interpretation Code Description Data Connie rce(s) Supporting Document(s) SARS coronavirus 2 RNA [Presence] in Res piratory specimen by MINERVA with probe detection negative negative Sars-cov-2 POLO ([facility]) ID Date Data Source [id number] 12/10/2019 12:00:00 AM EDT POLO ([facility]) Name Value Range Interpretation Code Description Data Connie rce(s) Supporting Document(s) ID Date Data Source [id number] 12/10/2019 12:00:00 AM EDT OPLO ([facility]) Name Value Range Interpretation Code Description Data Connie rce(s) Supporting Document(s) SARS coronavirus 2 RNA [Presence] in Res piratory specimen by MINERVA with probe detection negative negative Sars-cov-2 POLO ([facility]) ID Date Data Source [id number] 12/10/2019 12:00:00 AM EDT POLO ([facility]) Name Value Range Interpretation Code Description Data Connie rce(s) Supporting Document(s) ID Date Data Source [id number] 12/10/2019 12:00:00 AM EDT POLO ([facility]) Name Value Range Interpretation Code Description Data Connie rce(s) Supporting Document(s) SARS coronavirus 2 RNA [Presence] in Res piratory specimen by MINERVA with probe detection negative negative Sars-cov-2 POLO ([facility]) ID Date Data Source [id number] 12/10/2019 12:00:00 AM EDT POLO ([facility]) Name Value Range Interpretation Code Description Data Connie rce(s) Supporting Document(s) ID Date Data Source [id number] 12/10/2019 12:00:00 AM EDT [facility] Name Value Range Interpretation Code Description Data Connie rce(s) Supporting Document(s) SARS-CoV-2 [facility] This lab was ordered by [facility] and reported by [employer]. Procedure Social History Code Duration Value Status Description Data Source(s ) Smoking 10/16/2020 12:00:00 AM EDT Current Smoker completed Curre nt Smoker eCW1 ([facility]) Smoking 10/16/2020 12:00:00 AM EDT Current Smoker completed Curre nt Smoker eCW1 ([facility]) Smoking 10/16/2020 12:00:00 AM EDT Current Smoker completed Curre nt Smoker eCW1 ([facility]) Smoking 10/16/2020 12:00:00 AM EDT Current Smoker completed Curre nt Smoker eCW1 ([facility]) Alcohol intake 08/29/2020 12:00:00 AM EDT Ex-drinker (finding) comp leted Ex- drinker (finding) [facility] Tobacco use and exposure 08/29/2020 12:00:00 AM EDT Never used co mpleted Never used [facility] Cigarette pack-years 08/29/2020 12:00:00 AM EDT UNK completed [facility] Cigarettes smoked current (pack per day) - Reported 08/30/19 12:00:00 AM EDT UNK completed [facility] Smoking 08/29/2020 12:00:00 AM EDT Current every day smoker co mpleted Current every day smoker [facility] Alcohol intake 08/08/2020 12:00:00 AM EDT Ex-drinker (finding) comp leted Ex- drinker (finding) [facility] Tobacco use and exposure 08/08/2020 12:00:00 AM EDT Never used co mpleted Never used [facility] Cigarettes smoked current (pack per day) - Reported 08/09/19 12:00:00 AM EDT UNK completed [facility] Smoking 08/08/2020 12:00:00 AM EDT Current every day smoker co mpleted Current every day smoker [facility] Smoking 07/31/2020 12:00:00 AM EDT Current Smoker completed Curre nt Smoker eCW1 ([facility]) Smoking 07/31/2020 12:00:00 AM EDT Current Smoker completed Curre nt Smoker eCW1 ([facility]) Smoking 07/31/2020 12:00:00 AM EDT Current Smoker completed Curre nt Smoker eCW1 ([facility]) Smoking 07/31/2020 12:00:00 AM EDT Current Smoker completed Curre nt Smoker eCW1 ([facility]) Smoking 07/31/2020 12:00:00 AM EDT Current Smoker completed Curre nt Smoker eCW1 ([facility]) Smoking 07/31/2020 12:00:00 AM EDT Current Smoker completed Curre nt Smoker eCW1 ([facility]) Smoking 07/31/2020 12:00:00 AM EDT Current Smoker completed Curre nt Smoker eCW1 ([facility]) Smoking 07/31/2020 12:00:00 AM EDT Current Smoker completed Curre nt Smoker eCW1 ([facility]) Smoking 07/31/2020 12:00:00 AM EDT Current Smoker completed Curre nt Smoker eCW1 ([facility]) Smoking 07/31/2020 12:00:00 AM EDT Current Smoker completed Curre nt Smoker eCW1 ([facility]) Alcohol intake 06/27/2020 12:00:00 AM EDT Ex-drinker (finding) comp leted Ex- drinker (finding) [facility] Smoking 04/23/2020 12:00:00 AM EST Current Smoker completed Curre nt Smoker eCW1 ([facility]) Smoking 04/23/2020 12:00:00 AM EST Current Smoker completed Curre nt Smoker eCW1 ([facility]) Smoking 04/23/2020 12:00:00 AM EST Current Smoker completed Curre nt Smoker eCW1 ([facility]) Smoking 04/23/2020 12:00:00 AM EST Current Smoker completed Curre nt Smoker eCW1 ([facility]) Smoking 04/23/2020 12:00:00 AM EST Current Smoker completed Curre nt Smoker eCW1 ([facility]) Smoking 04/23/2020 12:00:00 AM EST Current Smoker completed Curre nt Smoker eCW1 ([facility]) Smoking 04/23/2020 12:00:00 AM EST Current Smoker completed Curre nt Smoker eCW1 ([facility]) Smoking 04/23/2020 12:00:00 AM EST Current Smoker completed Curre nt Smoker eCW1 ([facility]) Smoking 12/13/2019 12:00:00 AM EDT Current Smoker completed Curre nt Smoker eCW1 ([facility]) Smoking 12/13/2019 12:00:00 AM EDT Current Smoker completed Curre nt Smoker eCW1 ([facility]) Smoking 12/13/2019 12:00:00 AM EDT Current Smoker completed Curre nt Smoker eCW1 ([facility]) Smoking 12/13/2019 12:00:00 AM EDT Current Smoker completed Curre nt Smoker eCW1 ([facility]) Smoking 12/13/2019 12:00:00 AM EDT Current Smoker completed Curre nt Smoker eCW1 ([facility]) Smoking 12/13/2019 12:00:00 AM EDT Current Smoker completed Curre nt Smoker eCW1 ([facility]) Smoking 12/13/2019 12:00:00 AM EDT Current Smoker completed Curre nt Smoker eCW1 ([facility]) Smoking 12/13/2019 12:00:00 AM EDT Current Smoker completed Curre nt Smoker eCW1 ([facility]) Vital Signs ID Date Data Source UNK Name Value Range Interpretation Code Description Data Source(s) Diastolic blood pressure 84 mm[Hg] 84 mm[Hg] MEDENT ([facility]) Systolic blood pressure 134 mm[Hg] 134 mm[Hg] [facility] Body mass index (BMI) [Ratio] 16.7 kg/m2 16.7 k g/m2 [facility]) Body weight 100.12 [lb_av] 100.12 [lb_av] MEDEN T ([facility]) Oxygen saturation in Arterial blood by Pulse oximetry 98 % 98 % [facility] ([facility]) Heart rate 81 /min 81 /min [facility] ([facility]) Body height 65 [in_i] 65 [in_i] [facility] ([facility]) 5'5" Systolic blood pressure 128 mm[Hg] 128 mm[Hg] [facility] ([facility]) Diastolic blood pressure 84 mm[Hg] 84 mm[Hg] [facility] ([facility]) Body height 66 [in_i] 66 [in_i] [facility] ([facility]) 5'6" Body weight 98.00 [lb_av] 98.00 [lb_av] [facility] ([facility]) Body mass index (BMI) [Ratio] 15.8 kg/m2 15.8 k g/m2 [facility] ([facility]) Lipan body weight 130 [lb_av] 130 [lb_av] MEDEN T ([facility]) Body weight 44.453 kg 44.453 kg [facility] ([facility]) Body surface area Derived from formula 1.48 m2 1.48 m2 [facility] ([facility]) Systolic blood pressure 159 mm[Hg] 159 mm[Hg] [facility] Diastolic blood pressure 79 mm[Hg] 79 mm[Hg] [facility] ([facility]) Body temperature 98.3 [degF] 98.3 [degF] [facility] ([facility]) Body height 66 [in_i] 66 [in_i] MEDENT ([facility]) 5'6" Body weight 98.25 [lb_av] 98.25 [lb_av] MEDENT ([facility]) Body mass index (BMI) [Ratio] 15.9 kg/m2 15.9 k g/m2 [facility] ([facility]) Lipan body weight 130 [lb_av] 130 [lb_av] MEDEN T ([facility]) Body weight 44.566 kg 44.566 kg [facility] ([facility]) Body surface area Derived from formula 1.48 m2 1.48 m2 [facility] ([facility]) Systolic blood pressure 162 mm[Hg] 162 mm[Hg] [facility] Diastolic blood pressure 64 mm[Hg] 64 mm[Hg] [facility] Heart rate 66 /min 66 /min [facility] Body height 165.1 cm 165.1 cm [facility] Body weight 44.815 kg 44.815 kg [facility] Body mass index (BMI) [Ratio] 16.44 kg/m2 16.44 kg/m2 [facility] Oxygen saturation in Arterial blood by Pulse oximetry 96 % 96 % [facility] Body weight 98.4 [lb_av] 98.4 [lb_av] W1 ([facility]) Body weight 44.63 kg 44.63 kg W1 ([facility]) Body height 65 [in_i] 65 [in_i] eCW1 ([facility]) Body mass index (BMI) [Ratio] 16.37 kg/m2 16.37 kg/m2 [facility] ([facility]) Heart rate 66 /min 66 /min W1 ([facility]) Respiratory rate 18 /min 18 /min eCW1 ([facility]) Body temperature 98.7 [degF] 98.7 [degF] eCW1 ( [facility]) Systolic blood pressure 154 mm[Hg] 154 mm[Hg] e CW1 ([facility]) Diastolic blood pressure 70 mm[Hg] 70 mm[Hg] eCW1 ([facility]) Oxygen saturation in Arterial blood by Pulse oximetry 94 % 94 % [facility] Systolic blood pressure 138 mm[Hg] 138 mm[Hg] [facility] Diastolic blood pressure 66 mm[Hg] 66 mm[Hg] [facility] Heart rate 65 /min 65 /min [facility] Body height 165.1 cm 165.1 cm [facility] Body weight 47.174 kg 47.174 kg [facility] Body mass index (BMI) [Ratio] 17.31 kg/m2 17.31 kg/m2 [facility] Systolic blood pressure 100 mm[Hg] 100 mm[Hg] M EDENT ([facility], ) Diastolic blood pressure 70 mm[Hg] 70 mm[Hg] MEDENT ([facility], ) Heart rate 58 /min 58 /min [facility] Oxygen saturation in Arterial blood by Pulse oximetry 94 % 94 % [facility] ([facility], ) Body temperature 98.7 [degF] 98.7 [degF] [facility] ([facility], ) Body height 66 [in_i] 66 [in_i] [facility] ([facility], ) 5'6" Body weight 103.00 [lb_av] 103.00 [lb_av] MEDEN T ([facility], ) Body mass index (BMI) [Ratio] 16.6 kg/m2 16.6 k g/m2 [facility] ([facility], ) Lipan body weight 130 [lb_av] 130 [lb_av] MEDEN T ([facility], ) Body weight 46.721 kg 46.721 kg [facility] ([facility], ) Body surface area Derived from formula 1.51 m2 1.51 m2 [facility] ([facility], ) Systolic blood pressure 156 mm[Hg] 156 mm[Hg] [facility] Diastolic blood pressure 72 mm[Hg] 72 mm[Hg] [facility] Heart rate 60 /min 60 /min [facility] Body height 165.1 cm 165.1 cm [facility] Body weight 47.174 kg 47.174 kg [facility] Body mass index (BMI) [Ratio] 17.31 kg/m2 17.31 kg/m2 [facility] Oxygen saturation in Arterial blood by Pulse oximetry 94 % 94 % [facility] Diastolic blood pressure 58 mm[Hg] 58 mm[Hg] [facility] ([facility]) Body weight 46.267 kg 46.267 kg [facility] ([facility]) Body surface area Derived from formula 1.50 m2 1.50 m2 [facility] ([facility]) Body mass index (BMI) [Ratio] 16.5 kg/m2 16.5 k g/m2 [facility] ([facility]) Lipan body weight 130 [lb_av] 130 [lb_av] MEDEN T ([facility]) Body height 66 [in_i] 66 [in_i] [facility] 5'6" Body weight 102.00 [lb_av] 102.00 [lb_av] MEDEN T ([facility]) Systolic blood pressure 122 mm[Hg] 122 mm[Hg] M EDENT ([facility]) Body height 66 [in_i] 66 [in_i] [facility] 5'6" Body weight 102.00 [lb_av] 102.00 [lb_av] MEDEN T ([facility]) Body mass index (BMI) [Ratio] 16.5 kg/m2 16.5 k g/m2 [facility] ([facility]) Lipan body weight 130 [lb_av] 130 [lb_av] MEDEN T ([facility]) Body weight 46.267 kg 46.267 kg [facility] ([facility]) Body surface area Derived from formula 1.50 m2 1.50 m2 [facility] ([facility]) Body temperature 97.3 [degF] 97.3 [degF] MEDENT ([facility] ) Body height 65 [in_i] 65 [in_i] MEDENT ([facility] ) 5'5" Body mass index (BMI) [Ratio] 17.2 kg/m2 17.2 k g/m2 MED[facility] ([facility] ) Systolic blood pressure 110 mm[Hg] 110 mm[Hg] M EDENT ([facility] ) Diastolic blood pressure 80 mm[Hg] 80 mm[Hg] MEDENT ([facility] ) Heart rate 88 /min 88 /min [facility] ([facility] ) Body temperature 97.5 [degF] 97.5 [degF] MEDENT ([facility] ) Body height 65 [in_i] 65 [in_i] [facility] ([facility] ) 5'5" Body weight 103.50 [lb_av] 103.50 [lb_av] MEDEN T ([facility] ) Body weight 105.6 [lb_av] 105.6 [lb_av] eCW1 [facility] Body height 65 [in_i] 65 [in_i] eCW1 ([facility]) Body mass index (BMI) [Ratio] 17.57 kg/m2 17.57 kg/m2 [facility] ([facility]) Heart rate 54 /min 54 /min eCW1 ([facility]) Respiratory rate 17 /min 17 /min eCW1 ([facility]) Body temperature 96.7 [degF] 96.7 [degF] eCW1 ( [facility]) Systolic blood pressure 193 mm[Hg] 193 mm[Hg] e CW1 ([facility]) Diastolic blood pressure 80 mm[Hg] 80 mm[Hg] eCW1 ([facility]) Systolic blood pressure 138 mm[Hg] 138 mm[Hg] M EDENT ([facility] ) Heart rate 55 /min 55 /min MEDENT ([facility] ) Body temperature 97.0 [degF] 97.0 [degF] MEDENT ([facility] ) Body height 65 [in_i] 65 [in_i] MEDENT ([facility]) 5'5" Body weight 105.00 [lb_av] 105.00 [lb_av] MEDEN T ([facility]) Body mass index (BMI) [Ratio] 17.5 kg/m2 17.5 k g/m2 [facility] ([facility]) Oxygen saturation in Arterial blood by Pulse oximetry 96 % 96 % [facility] ([facility]) Diastolic blood pressure 62 mm[Hg] 62 mm[Hg] [facility] ([facility]) Diastolic blood pressure 60 mm[Hg] 60 mm[Hg] POLO ([facility]) Body height 66 [in_i] 66 [in_i] POLO ([facility]) Systolic blood pressure 118 mm[Hg] 118 mm[Hg] A THENA ([facility]) Diastolic blood pressure 60 mm[Hg] 60 mm[Hg] POLO ([facility]) Body height 66 [in_i] 66 [in_i] POLO ([facility]) Systolic blood pressure 118 mm[Hg] 118 mm[Hg] A THENA ([facility]) Lipan body weight 130 [lb_av] 130 [lb_av] MEDEN T ([facility], ) Body weight 48.535 kg 48.535 kg MEDENT ([facility], ) Body surface area Derived from formula 1.53 m2 1.53 m2 MED[facility] ([facility], ) Systolic blood pressure 130 mm[Hg] 130 mm[Hg] M EDENT ([facility], ) Diastolic blood pressure 62 mm[Hg] 62 mm[Hg] [facility] ([facility], ) Heart rate 68 /min 68 /min [facility] ([facility] ) Oxygen saturation in Arterial blood by Pulse oximetry 93 % 93 % [facility] ([facility], ) Body temperature 98.7 [degF] 98.7 [degF] MEDENT ([facility], ) Body height 66 [in_i] 66 [in_i] MEDENT ([facility], ) 5'6" Body weight 107.00 [lb_av] 107.00 [lb_av] MEDEN T ([facility]) Body mass index (BMI) [Ratio] 17.3 kg/m2 17.3 k g/m2 [facility] ([facility]) Systolic blood pressure 110 mm[Hg] 110 mm[Hg] [facility]) Diastolic blood pressure 50 mm[Hg] 50 mm[Hg] [facility] ([facility]) Body height 66 [in_i] 66 [in_i] [facility] ([facility]) 5'6" Body weight 109.00 [lb_av] 109.00 [lb_av] [facility] Body mass index (BMI) [Ratio] 17.6 kg/m2 17.6 k g/m2 [facility] ([facility]) Lipan body weight 130 [lb_av] 130 [lb_av] [facility] Body weight 49.442 kg 49.442 kg [facility] ([facility]) Body surface area Derived from formula 1.55 m2 1.55 m2 [facility] ([facility]) Body weight 108.4 [lb_av] 108.4 [lb_av] W1 ([facility] Body height 65 [in_i] 65 [in_i] eCW1 ([facility]) Body mass index (BMI) [Ratio] 18.04 kg/m2 18.04 kg/m2 eCW1 ([facility]) Heart rate 61 /min 61 /min eCW1 ([facility]) Respiratory rate 16 /min 16 /min eCW1 ([facility]) Body temperature 96.9 [degF] 96.9 [degF] eCW1 ( [facility]) Systolic blood pressure 162 mm[Hg] 162 mm[Hg] e CW1 ([facility]) Diastolic blood pressure 67 mm[Hg] 67 mm[Hg] eCW1 ([facility]) Systolic blood pressure 148 mm[Hg] 148 mm[Hg] [facility] Diastolic blood pressure 63 mm[Hg] 63 mm[Hg] [facility] ([facility]) Body height 66 [in_i] 66 [in_i] [facility] ([facility]) 5'6" Body weight 113.00 [lb_av] 113.00 [lb_av] MEDEN T ([facility]) Body mass index (BMI) [Ratio] 18.2 kg/m2 18.2 k g/m2 [facility] ([facility]) Lipan body weight 130 [lb_av] 130 [lb_av] MEDEN T ([facility]) Body weight 51.257 kg 51.257 kg [facility] ([facility]) Body surface area Derived from formula 1.57 m2 1.57 m2 [facility] ([facility]) Body height 66 [in_i] 66 [in_i] POLO ([facility]) Body height 66 [in_i] 66 [in_i] POLO ([facility]) Body height 66 [in_i] 66 [in_i] POLO ([facility]) Body height 66 [in_i] 66 [in_i] POLO ([facility]) Systolic blood pressure 150 mm[Hg] 150 mm[Hg] M [facility] ([facility]) Diastolic blood pressure 78 mm[Hg] 78 mm[Hg] [facility] ([facility]) Heart rate 63 /min 63 /min [facility] ([facility]) Oxygen saturation in Arterial blood by Pulse oximetry 96 % 96 % [facility] ([facility]) Body height 66 [in_i] 66 [in_i] [facility] ([facility]) 5'6" Body weight 117.00 [lb_av] 117.00 [lb_av] MEDEN T ([facility]) Body mass index (BMI) [Ratio] 18.9 kg/m2 18.9 k g/m2 [facility] ([facility]) Lipan body weight 130 [lb_av] 130 [lb_av] MEDEN T ([facility]) Body weight 53.071 kg 53.071 kg [facility] ([facility]) Body surface area Derived from formula 1.59 m2 1.59 m2 MARQUITA ([facility], ) Diastolic blood pressure 67 mm[Hg] 67 mm[Hg] POLO ([facility]) Body height 66 [in_i] 66 [in_i] POLO ([facility]) Systolic blood pressure 127 mm[Hg] 127 mm[Hg] A THENA ([facility]) Diastolic blood pressure 67 mm[Hg] 67 mm[Hg] POLO ([facility]) Body height 66 [in_i] 66 [in_i] POLO ([facility]) Systolic blood pressure 127 mm[Hg] 127 mm[Hg] A THENA ([facility]) Diastolic blood pressure 67 mm[Hg] 67 mm[Hg] POLO ([facility]) Body height 66 [in_i] 66 [in_i] POLO ([facility]) Systolic blood pressure 127 mm[Hg] 127 mm[Hg] A THENA ([facility]) Diastolic blood pressure 67 mm[Hg] 67 mm[Hg] POLO ([facility]) Body height 66 [in_i] 66 [in_i] POLO ([facility]) Systolic blood pressure 127 mm[Hg] 127 mm[Hg] A THENA ([facility]) Diastolic blood pressure 67 mm[Hg] 67 mm[Hg] POLO ([facility]) Body height 66 [in_i] 66 [in_i] POLO ([facility]) Systolic blood pressure 127 mm[Hg] 127 mm[Hg] A THENA ([facility]) Diastolic blood pressure 67 mm[Hg] 67 mm[Hg] POLO ([facility]) Body height 66 [in_i] 66 [in_i] POLO ([facility]) Systolic blood pressure 127 mm[Hg] 127 mm[Hg] A THENA ([facility]) Diastolic blood pressure 67 mm[Hg] 67 mm[Hg] POLO ([facility]) Body height 66 [in_i] 66 [in_i] POLO ([facility]) Systolic blood pressure 127 mm[Hg] 127 mm[Hg] A THENA ([facility]) Diastolic blood pressure 67 mm[Hg] 67 mm[Hg] POLO ([facility]) Body height 66 [in_i] 66 [in_i] POLO ([facility]) Systolic blood pressure 127 mm[Hg] 127 mm[Hg] A THENA ([facility]) Body height 66 [in_i] 66 [in_i] POLO ([facility]) Systolic blood pressure 127 mm[Hg] 127 mm[Hg] A THENA ([facility]) Diastolic blood pressure 67 mm[Hg] 67 mm[Hg] POLO ([facility]) Body weight 121 [lb_av] 121 [lb_av] eCW1 ([facility]) Body height 65 [in_i] 65 [in_i] eCW1 ([facility]) Body mass index (BMI) [Ratio] 20.13 kg/m2 20.13 kg/m2 eCW1 ([facility]) Heart rate 69 /min 69 /min eCW1 ([facility]) Respiratory rate 17 /min 17 /min eCW1 ([facility]) Body temperature 97.0 [degF] 97.0 [degF] eCW1 ( [facility]) Systolic blood pressure 146 mm[Hg] 146 mm[Hg] e CW1 ([facility]) Diastolic blood pressure 69 mm[Hg] 69 mm[Hg] eCW1 ([facility]) ID Date Data Source [id number] 06/27/2020 01:43:14 PM EDT [facility] Name Value Range Interpretation Code Description Data Source(s) WEIGHT RECORDED 107 lb 107 lb [facility] Body height Measured 65 in 65 in [facility] Patient Treatment Plan of Care Planned Activity Planned Date Details Description Data Source (s) Glucometer 10/19/2020 12:00:00 AM EDT e CW1 ([facility]) Lancets - 10/19/2020 12:00:00 AM EDT e CW1 ([facility]) Contour Next Test - 10/19/2020 12:00:00 AM EDT eCW1 ([facility]) Isopropyl Alcohol 0.7 ML/ML Medicated Pad 10/19/2020 12:00:00 AM ED T eCW1 ([facility]) Glucometer 10/19/2020 12:00:00 AM EDT e CW1 ([facility]) Lancets - 10/19/2020 12:00:00 AM EDT e CW1 ([facility]) Contour Next Test - 10/19/2020 12:00:00 AM EDT eCW1 ([facility]) Isopropyl Alcohol 0.7 ML/ML Medicated Pad 10/19/2020 12:00:00 AM ED T eCW1 ([facility]) Glucometer 10/19/2020 12:00:00 AM EDT e CW1 ([facility]) Isopropyl Alcohol 0.7 ML/ML Medicated Pad 10/19/2020 12:00:00 AM ED T eCW1 ([facility]) Lancets - 10/19/2020 12:00:00 AM EDT e CW1 ([facility]) Contour Next Test - 10/19/2020 12:00:00 AM EDT eCW1 ([facility]) Glucometer 10/19/2020 12:00:00 AM EDT e CW1 ([facility]) Lancets - 10/19/2020 12:00:00 AM EDT e CW1 ([facility]) Contour Next Test - 10/19/2020 12:00:00 AM EDT eCW1 ([facility]) Isopropyl Alcohol 0.7 ML/ML Medicated Pad 10/19/2020 12:00:00 AM ED T eCW1 ([facility]) potassium chloride SA (K-DUR,KLOR-CON) 20 MEQ tablet 021 12:00:00 AM EDT [facility] Cephalexin 500 MG Oral Capsule 10/16/2020 12:00:00 AM EDT eCW1 ([facility]) Cephalexin 500 MG Oral Capsule 10/16/2020 12:00:00 AM EDT eCW1 ([facility]) Cephalexin 500 MG Oral Capsule 10/16/2020 12:00:00 AM EDT eCW1 ([facility]) Cephalexin 500 MG Oral Capsule 10/16/2020 12:00:00 AM EDT eCW1 ([facility]) albuterol (PROVENTIL HFA;VENTOLIN HFA) 108 (90 Base) M CG/ACT inhaler 09/04/2020 12:00:00 AM EDT [facility] PARoxetine (PAXIL) 30 MG tablet 08/20/2020 12:00:00 AM EDT [facility] 30 ACTUAT umeclidinium 0.0625 MG/ACTUAT / vilanterol 0.025 MG/ACTUAT Dry Powder Inhaler [Anoro] 08/15/2020 12:00:00 AM EDT [facility] 30 ACTUAT fluticasone furoate 0.2 MG/ACTUAT Dry Powder Inhaler [Arnuity] 08/15/2020 12:00:00 AM EDT [facility] Unifine Pentips Plus 31G X 5 MM MISC 08/11/2020 12:00:00 AM EDT [facility] Abaloparatide (Tymlos) 3120 MCG/1.56ML SOPN 08/06/2020 12:00:00 AM EDT [facility] Klor-Con M20 20 MEQ 08/06/2020 12:00:00 AM EDT eCW1 ([facility]) Klor-Con M20 20 MEQ 08/06/2020 12:00:00 AM EDT eCW1 ([facility]) Klor-Con M20 20 MEQ 08/06/2020 12:00:00 AM EDT eCW1 ([facility]) Klor-Con M20 20 MEQ 08/06/2020 12:00:00 AM EDT eCW1 ([facility]) Klor-Con M20 20 MEQ 08/06/2020 12:00:00 AM EDT eCW1 ([facility]) Klor-Con M20 20 MEQ 08/06/2020 12:00:00 AM EDT eCW1 ([facility]) Klor-Con M20 20 MEQ 08/06/2020 12:00:00 AM EDT eCW1 ([facility]) Klor-Con M20 20 MEQ 08/06/2020 12:00:00 AM EDT eCW1 ([facility]) Klor-Con M20 20 MEQ 08/06/2020 12:00:00 AM EDT eCW1 ([facility]) Klor-Con M20 20 MEQ 08/06/2020 12:00:00 AM EDT eCW1 ([facility]) Klor-Con M20 20 MEQ 08/06/2020 12:00:00 AM EDT eCW1 ([facility]) Tymlos 3120 MCG/1.56ML Subcutaneous Solution Pen-injec tor 08/06/2020 12:00:00 AM [facility] ospital gabapentin 400 MG Oral Capsule 07/03/2020 12:00:00 AM EDT [facility] Famotidine 40 MG Oral Tablet 06/03/2020 12:00:00 AM EDT [facility] Famotidine 40 MG Oral Tablet 06/03/2020 12:00:00 AM [facility] topiramate 100 MG Oral Tablet 06/02/2020 12:00:00 AM EDT [facility] clopidogrel 75 MG Oral Tablet 06/02/2020 12:00:00 AM EDT [facility] topiramate 100 MG Oral Tablet 06/02/2020 12:00:00 AM [facility] clopidogrel 75 MG Oral Tablet 06/02/2020 12:00:00 AM [facility] 30 ACTUAT umeclidinium 0.0625 MG/ACTUAT / vilanterol 0.025 MG/ACTUAT Dry Powder Inhaler [Anoro] 06/01/2020 12:00:00 AM EDT [facility] Albuterol Sulfate HFA 108 (90 Base) MCG/ ACT Inhalation Aerosol Solution (PROVENTIL HFA) 06/01/2020 12:00:00 AM EDT [facility] 30 ACTUAT fluticasone furoate 0.2 MG/ACTUAT Dry Powder Inhaler [Arnuity] 05/30/2020 12:00:00 AM T [facility] Ondansetron 4 MG Oral Tablet 05/22/2020 12:00:00 AM EDT [facility] PARoxetine HCl 30 MG Oral Tablet (PAXIL) 05/22/2020 12:00:00 AM [facility] Ondansetron 4 MG Oral Tablet 05/22/2020 12:00:00 AM [facility] gabapentin 400 MG Oral Capsule 04/12/2020 12:00:00 AM [facility] Ondansetron 4 MG Oral Tablet 03/20/2020 12:00:00 AM EST eCW1 ([facility]) Ondansetron 4 MG Oral Tablet 03/20/2020 12:00:00 AM EST eCW1 ([facility]) Ondansetron 4 MG Oral Tablet 03/20/2020 12:00:00 AM EST eCW1 ([facility]) Ondansetron 4 MG Oral Tablet 03/20/2020 12:00:00 AM EST eCW1 ([facility]) Ondansetron 4 MG Oral Tablet 03/20/2020 12:00:00 AM EST eCW1 ([facility]) Ondansetron 4 MG Oral Tablet 03/20/2020 12:00:00 AM EST eCW1 ([facility]) Ondansetron 4 MG Oral Tablet 03/20/2020 12:00:00 AM EST eCW1 ([facility]) Ondansetron 4 MG Oral Tablet 03/20/2020 12:00:00 AM EST eCW1 ([facility]) Ondansetron 4 MG Oral Tablet 03/20/2020 12:00:00 AM EST eCW1 ([facility]) atorvastatin 80 MG Oral Tablet 03/15/2020 12:00:00 AM EST [facility] atorvastatin 80 MG Oral Tablet 03/15/2020 12:00:00 AM [facility] tizanidine 4 MG Oral Tablet 03/07/2020 12:00:00 AM EST [facility] tizanidine 4 MG Oral Tablet 03/07/2020 12:00:00 AM EST [facility] ezetimibe 10 MG Oral Tablet 02/22/2020 12:00:00 AM EST [facility] ezetimibe 10 MG Oral Tablet 02/22/2020 12:00:00 AM EST [facility] Ciprofloxacin 500 MG Oral Tablet 12/29/2019 12:00:00 AM EST eCW1 ([facility]) Ciprofloxacin 500 MG Oral Tablet 12/29/2019 12:00:00 AM EST eCW1 ([facility]) Ciprofloxacin 500 MG Oral Tablet 12/29/2019 12:00:00 AM EST eCW1 ([facility]) Ciprofloxacin 500 MG Oral Tablet 12/29/2019 12:00:00 AM EST eCW1 ([facility]) Ciprofloxacin 500 MG Oral Tablet 12/29/2019 12:00:00 AM EST eCW1 ([facility]) Ciprofloxacin 500 MG Oral Tablet 12/29/2019 12:00:00 AM EST eCW1 ([facility]) tizanidine 4 MG Oral Tablet 12/13/2019 12:00:00 AM EDT eCW1 ([facility]) Sulfamethoxazole 800 MG / Trimethoprim 160 MG Oral Tab let [Bactrim] 12/13/2019 12:00:00 AM EDT eCW1 ([facility]) tizanidine 4 MG Oral Tablet 12/13/2019 12:00:00 AM EDT eCW1 ([facility]) Sulfamethoxazole 800 MG / Trimethoprim 160 MG Oral Tab let [Bactrim] 12/13/2019 12:00:00 AM EDT eCW1 ([facility]) tizanidine 4 MG Oral Tablet 12/13/2019 12:00:00 AM EDT eCW1 ([facility]) Sulfamethoxazole 800 MG / Trimethoprim 160 MG Oral Tab let [Bactrim] 12/13/2019 12:00:00 AM EDT eCW1 ([facility]) tizanidine 4 MG Oral Tablet 12/13/2019 12:00:00 AM EDT eCW1 ([facility]) Sulfamethoxazole 800 MG / Trimethoprim 160 MG Oral Tab let [Bactrim] 12/13/2019 12:00:00 AM EDT eCW1 ([facility]) tizanidine 4 MG Oral Tablet 12/13/2019 12:00:00 AM EDT eCW1 ([facility]) Sulfamethoxazole 800 MG / Trimethoprim 160 MG Oral Tab let [Bactrim] 12/13/2019 12:00:00 AM EDT eCW1 ([facility]) tizanidine 4 MG Oral Tablet 12/13/2019 12:00:00 AM EDT eCW1 ([facility]) Sulfamethoxazole 800 MG / Trimethoprim 160 MG Oral Tab let [Bactrim] 12/13/2019 12:00:00 AM EDT eCW1 ([facility]) tizanidine 4 MG Oral Tablet 12/13/2019 12:00:00 AM EDT eCW1 ([facility]) Sulfamethoxazole 800 MG / Trimethoprim 160 MG Oral Tab let [Bactrim] 12/13/2019 12:00:00 AM EDT eCW1 ([facility]) tizanidine 4 MG Oral Tablet 12/13/2019 12:00:00 AM EDT eCW1 ([facility]) Sulfamethoxazole 800 MG / Trimethoprim 160 MG Oral Tab let [Bactrim] 12/13/2019 12:00:00 AM EDT eCW1 ([facility]) Sulfamethoxazole 800 MG / Trimethoprim 160 MG Oral Tablet POLO ([facility]) prednisone 20 mg tabs ATHEN A ([facility]) Phenazopyridine hydrochloride 200 MG Oral Tablet POLO ([facility]) pantoprazole 20 MG Delayed Release Oral Tablet POLO ([facility]) Omeprazole 20 MG Delayed Release Oral Capsule POLO ([facility]) NITROFURANTOIN, MACROCRYSTALS 25 MG / Ni trofurantoin, Monohydrate 75 MG Oral Capsule [facility] methylprednisolone 4 mg tablets in a dose pack POLO ([facility]) lidocaine 5 % topical patch POLO ([facility]) Albuterol 0.833 MG/ML / Ipratropium Hardy 0.167 MG/ML Inhalant So lution POLO ([facility]) Fluzone Quad (PF) 60 mcg (15 m cg x 4)/0.5 mL IM suspension INJECT DIRECTED POLO [facility] Doxycycline Monohydrate 100 MG Oral Capsule POLO ([facility]) Cyclobenzaprine hydrochloride 10 MG Oral Tablet POLO ([facility]) Alprazolam 0.5 MG Oral Tablet POLO ([facility]) prednisone 20 mg tabs ATHEN A ([facility]) Phenazopyridine hydrochloride 200 MG Oral Tablet POLO ([facility]) pantoprazole 20 MG Delayed Release Oral Tablet POLO ([facility]) Omeprazole 20 MG Delayed Release Oral Capsule POLO ([facility]) NITROFURANTOIN, MACROCRYSTALS 25 MG / Ni trofurantoin, Monohydrate 75 MG Oral Capsule POLO ([facility]) methylprednisolone 4 mg tablets in a dose pack POLO ([facility]) lidocaine 5 % topical patch POLO ([facility]) Albuterol 0.833 MG/ML / Ipratropium Hardy 0.167 MG/ML Inhalant So lution POLO ([facility]) Fluzone Quad (PF) 60 mcg (15 m cg x 4)/0.5 mL IM suspension INJECT DIRECTED POLO [facility] Doxycycline Monohydrate 100 MG Oral Capsule POLO ([facility]) Cyclobenzaprine hydrochloride 10 MG Oral Tablet POLO ([facility]) Alprazolam 0.5 MG Oral Tablet POLO ([facility]) Sulfamethoxazole 800 MG / Trimethoprim 160 MG Oral Tablet POLO ([facility]) prednisone 20 mg tabs ATHEN A ([facility]) Phenazopyridine hydrochloride 200 MG Oral Tablet POLO ([facility]) pantoprazole 20 MG Delayed Release Oral Tablet POLO ([facility]) Omeprazole 20 MG Delayed Release Oral Capsule POLO ([facility]) NITROFURANTOIN, MACROCRYSTALS 25 MG / Ni trofurantoin, Monohydrate 75 MG Oral Capsule POLO [facility] methylprednisolone 4 mg tablets in a dose pack POLO ([facility]) lidocaine 5 % topical patch POLO ([facility]) Albuterol 0.833 MG/ML / Ipratropium Hardy 0.167 MG/ML Inhalant So lution POLO ([facility]) Fluzone Quad (PF) 60 mcg (15 m cg x 4)/0.5 mL IM suspension INJECT DIRECTED POLO [facility] Famotidine 40 MG Oral Tablet POLO ([facility]) Doxycycline Monohydrate 100 MG Oral Capsule POLO ([facility]) Cyclobenzaprine hydrochloride 10 MG Oral Tablet POLO ([facility]) Sulfamethoxazole 800 MG / Trimethoprim 160 MG Oral Tablet POLO ([facility]) fluticasone furoate 0.2 MG/ACTUAT Dry Powder Inhaler POLO ([facility]) Alprazolam 0.5 MG Oral Tablet POLO ([facility]) albuterol sulfate HFA 90 mcg/actuation a erosol inhaler INHALE TWO PUFFS BY MOUTH FOUR TIMES A DAY NEEDED ATHE NA ([facility]) Doxycycline Monohydrate 100 MG Oral Capsule POLO ([facility]) Cyclobenzaprine hydrochloride 10 MG Oral Tablet POLO ([facility]) fluticasone furoate 0.2 MG/ACTUAT Dry Powder Inhaler POLO ([facility]) umeclidinium 0.0625 MG/ACTUAT / vilanterol 0.025 MG/ACTUAT D ry Powder Inhaler POLO ([facility]) Alprazolam 0.5 MG Oral Tablet POLO ([facility]) Sulfamethoxazole 800 MG / Trimethoprim 160 MG Oral Tablet POLO ([facility]) prednisone 20 mg tabs ATHEN A ([facility]) Phenazopyridine hydrochloride 200 MG Oral Tablet POLO ([facility]) pantoprazole 20 MG Delayed Release Oral Tablet POLO ([facility]) Omeprazole 20 MG Delayed Release Oral Capsule POLO ([facility]) NITROFURANTOIN, MACROCRYSTALS 25 MG / Ni trofurantoin, Monohydrate 75 MG Oral Capsule POLO ([facility]) methylprednisolone 4 mg tablets in a dose pack POLO ([facility]) lidocaine 5 % topical patch POLO ([facility]) Albuterol 0.833 MG/ML / Ipratropium Hardy 0.167 MG/ML Inhalant So lution POLO ([facility]) Famotidine 40 MG Oral Tablet POLO ([facility]) Doxycycline Monohydrate 100 MG Oral Capsule POLO ([facility]) Cyclobenzaprine hydrochloride 10 MG Oral Tablet POLO ([facility]) fluticasone furoate 0.2 MG/ACTUAT Dry Powder Inhaler POLO ([facility]) umeclidinium 0.0625 MG/ACTUAT / vilanterol 0.025 MG/ACTUAT D ry Powder Inhaler POLO ([facility]) Alprazolam 0.5 MG Oral Tablet POLO ([facility]) Sulfamethoxazole 800 MG / Trimethoprim 160 MG Oral Tablet POLO ([facility]) prednisone 20 mg tabs ATHEN A ([facility]) Phenazopyridine hydrochloride 200 MG Oral Tablet POLO ([facility]) pantoprazole 20 MG Delayed Release Oral Tablet POLO ([facility]) Omeprazole 20 MG Delayed Release Oral Capsule POLO ([facility]) NITROFURANTOIN, MACROCRYSTALS 25 MG / Ni trofurantoin, Monohydrate 75 MG Oral Capsule POLO ([facility]) methylprednisolone 4 mg tablets in a dose pack POLO ([facility]) lidocaine 5 % topical patch POLO ([facility]) Albuterol 0.833 MG/ML / Ipratropium Hardy 0.167 MG/ML Inhalant So lution POLO ([facility]) Cyclobenzaprine hydrochloride 10 MG Oral Tablet POLO ([facility]) fluticasone furoate 0.2 MG/ACTUAT Dry Powder Inhaler POLO ([facility]) umeclidinium 0.0625 MG/ACTUAT / vilanterol 0.025 MG/ACTUAT D ry Powder Inhaler POLO ([facility]) Alprazolam 0.5 MG Oral Tablet POLO ([facility]) Sulfamethoxazole 800 MG / Trimethoprim 160 MG Oral Tablet POLO ([facility]) prednisone 20 mg tabs ATHEN A ([facility]) Phenazopyridine hydrochloride 200 MG Oral Tablet POLO ([facility]) pantoprazole 20 MG Delayed Release Oral Tablet POLO ([facility]) Omeprazole 20 MG Delayed Release Oral Capsule POLO ([facility]) NITROFURANTOIN, MACROCRYSTALS 25 MG / Ni trofurantoin, Monohydrate 75 MG Oral Capsule POLO ([facility]) methylprednisolone 4 mg tablets in a dose pack POLO ([facility]) lidocaine 5 % topical patch POLO ([facility]) Albuterol 0.833 MG/ML / Ipratropium Hardy 0.167 MG/ML Inhalant So lution POLO ([facility]) Fluzone Quad 4253-8120 (PF) 60 mcg (15 m cg x 4)/0.5 mL IM suspension INJECT DIRECTED POLO ([facility]) Famotidine 40 MG Oral Tablet POLO ([facility]) Doxycycline Monohydrate 100 MG Oral Capsule POLO ([facility]) Cyclobenzaprine hydrochloride 10 MG Oral Tablet POLO ([facility]) fluticasone furoate 0.2 MG/ACTUAT Dry Powder Inhaler POLO ([facility]) umeclidinium 0.0625 MG/ACTUAT / vilanterol 0.025 MG/ACTUAT D ry Powder Inhaler POLO ([facility]) Alprazolam 0.5 MG Oral Tablet POLO ([facility]) albuterol sulfate HFA 90 mcg/actuation a erosol inhaler INHALE TWO PUFFS BY MOUTH FOUR TIMES A DAY NEEDED ATHE NA ([facility]) Sulfamethoxazole 800 MG / Trimethoprim 160 MG Oral Tablet POLO ([facility]) prednisone 20 mg tabs ATHEN A ([facility]) Phenazopyridine hydrochloride 200 MG Oral Tablet POLO ([facility]) pantoprazole 20 MG Delayed Release Oral Tablet POLO ([facility]) Omeprazole 20 MG Delayed Release Oral Capsule POLO ([facility]) NITROFURANTOIN, MACROCRYSTALS 25 MG / Ni trofurantoin, Monohydrate 75 MG Oral Capsule POLO ([facility]) methylprednisolone 4 mg tablets in a dose pack POLO ([facility]) lidocaine 5 % topical patch POLO ([facility]) Albuterol 0.833 MG/ML / Ipratropium Hardy 0.167 MG/ML Inhalant So lution POLO ([facility]) Famotidine 40 MG Oral Tablet POLO ([facility]) Sulfamethoxazole 800 MG / Trimethoprim 160 MG Oral Tablet POLO ([facility]) prednisone 20 mg tabs ATHEN A ([facility]) Phenazopyridine hydrochloride 200 MG Oral Tablet POLO ([facility]) pantoprazole 20 MG Delayed Release Oral Tablet POLO ([facility]) lidocaine 5 % topical patch POLO ([facility]) Albuterol 0.833 MG/ML / Ipratropium Hardy 0.167 MG/ML Inhalant So lution POLO ([facility]) Fluzone Quad [id number] (PF) 60 mcg (15 m cg x 4)/0.5 mL IM suspension INJECT DIRECTED POLO ([facility]) Famotidine 40 MG Oral Tablet POLO ([facility]) Doxycycline Monohydrate 100 MG Oral Capsule POLO ([facility]) Cyclobenzaprine hydrochloride 10 MG Oral Tablet POLO ([facility]) fluticasone furoate 0.2 MG/ACTUAT Dry Powder Inhaler POLO ([facility]) umeclidinium 0.0625 MG/ACTUAT / vilanterol 0.025 MG/ACTUAT D ry Powder Inhaler POLO ([facility]) Alprazolam 0.5 MG Oral Tablet POLO ([facility]) albuterol sulfate HFA 90 mcg/actuation a erosol inhaler INHALE TWO PUFFS BY MOUTH FOUR TIMES A DAY NEEDED ATHE NA ([facility]) Famotidine 40 MG Oral Tablet POLO ([facility]) Doxycycline Monohydrate 100 MG Oral Capsule POLO ([facility]) Cyclobenzaprine hydrochloride 10 MG Oral Tablet POLO ([facility]) fluticasone furoate 0.2 MG/ACTUAT Dry Powder Inhaler POLO ([facility]) umeclidinium 0.0625 MG/ACTUAT / vilanterol 0.025 MG/ACTUAT D ry Powder Inhaler POLO ([facility]) Alprazolam 0.5 MG Oral Tablet POLO ([facility]) Sulfamethoxazole 800 MG / Trimethoprim 160 MG Oral Tablet POLO ([facility]) prednisone 20 mg tabs ATHEN A ([facility]) Phenazopyridine hydrochloride 200 MG Oral Tablet POLO ([facility]) pantoprazole 20 MG Delayed Release Oral Tablet POLO ([facility]) Omeprazole 20 MG Delayed Release Oral Capsule POLO ([facility]) NITROFURANTOIN, MACROCRYSTALS 25 MG / Ni trofurantoin, Monohydrate 75 MG [facility]ule [facility] methylprednisolone 4 mg tablets in a dose pack POLO ([facility]) lidocaine 5 % topical patch POLO ([facility]) Albuterol 0.833 MG/ML / Ipratropium Hardy 0.167 MG/ML Inhalant So lution POLO ([facility]) Famotidine 40 MG Oral Tablet POLO ([facility]) Doxycycline Monohydrate 100 MG Oral Capsule POLO ([facility]) Omeprazole 20 MG Delayed Release Oral Capsule POLO ([facility]) NITROFURANTOIN, MACROCRYSTALS 25 MG / Ni trofurantoin, Monohydrate 75 MG Oral Capsule [facility] ([facility]) methylprednisolone 4 mg tablets in a dose pack POLO ([facility])
[2020-12-11] MEDS ORDERED: cefTRIAXone SOD 1 GM in D5W MINI-BAG PLUS 50 ML IV ONE (09:20)
[2020-12-11] MEDS ORDERED: NEOSPORIN OINT 0.9 GM PKT TOP ONE (09:25)
[2020-12-11] MEDS ORDERED: PERCOCET 5MG/325MG TAB PO ONE (09:25)
[2020-12-11] MEDS ORDERED: AUGM875T28 PO (10:20)
[2020-12-11 10:39] VITALS: BP 147/67
== END 2020-12-11 10:41 | disposition home or self-care (01) ==
LOC: M ED 08:32
DX: L03.113 Cellulitis of right upper limb (principal); I10 Essential (primary) hypertension; E78.5 Hyperlipidemia, unspecified; M81.0 Age-related osteoporosis without current pathological fracture; N73.9 Female pelvic inflammatory disease, unspecified; I25.2 Old myocardial infarction; Z79.899 Other long term (current) drug therapy; Z79.82 Long term (current) use of aspirin; Z79.01 Long term (current) use of anticoagulants; F17.210 Nicotine dependence, cigarettes, uncomplicated
CPT/HCPCS: 87070; 87077; 87186; 87205; 96365; 99284; J0696

== ENCOUNTER → 2021-03-19 | Outpatient (CLI) | payer MEDICARE, MEDICAID ==
[~2021-03-19] MED LIST changes: +AUGM875T28 PO; +POTA-151; +TIZA10TA PO; -TIZA4TAB4 PO
== END ==
LOC: M RAD 08:47
PROVIDERS: ATTEND Internal Medicine Pulmonary Disease
DX: J43.2 Centrilobular emphysema (principal); R91.8 Other nonspecific abnormal finding of lung field

== ENCOUNTER 2021-04-06 09:31 | Inpatient (IN) | payer MEDICARE, MEDICAID ==
[~2021-04-06] VITALS: Ht 165.1 cm; Wt 45.2 kg
[~2021-04-06 09:31] MED LIST changes: -POTA-151; +POTA-151 PO
[2021-04-06] MEDS ORDERED: LOSA25TA13 PO (09:39)
[2021-04-06] MEDS ORDERED: NORCO, ANEXSIA 5/325MG TABLET (HYDROcodone/ACETAMINOPHEN) PO ONE ×2 (09:55→12:25)
[2021-04-06 10:39] LABS: BASO % 0.3 % (0.0-1.0); EOS # 0.2 10^3/uL (0.0-0.5); EOS % 1.8 % (0.0-3.0); HEMATOCRIT 43.8 % (36.0-47.0); HEMOGLOBIN 13.9 g/dl (12.0-15.5); LYMPH # 2.3 10^3/uL (1.5-5.0); LYMPH % 20.1 % (24.0-44.0); MEAN CORPUSCULAR HEMOGLOBIN 29.2 pg (27.0-33.0); MEAN CORPUSCULAR HGB CONC 31.7 g/dl (32.0-36.5); MONO # 0.8 10^3/uL (0.0-0.8); MONO % 6.8 % (2.0-8.0); NEUTROPHILS # 8.1 10^3/uL (1.5-8.5); NEUTROPHILS % 70.5 % (36.0-66.0); PLATELET COUNT, AUTOMATED 267 10^3/uL (150-450); RED BLOOD COUNT 4.76 10^6/uL (4.00-5.40); WHITE BLOOD COUNT 11.5 10^3/uL (4.0-10.0)
[2021-04-06 10:54] LABS: INR 0.9; PROTHROMBIN TIME 12.6 SECONDS (12.7-14.5)
[2021-04-06 11:32] LABS: BLOOD UREA NITROGEN 9 MG/DL (7-18); CALCIUM LEVEL 8.6 MG/DL (8.8-10.2); CARBON DIOXIDE LEVEL 26 MEQ/L (21-32); CHLORIDE LEVEL 108 MEQ/L (98-107); CREATININE FOR GFR 0.99 MG/DL (0.55-1.30); GLOMERULAR FILTRATION RATE > 60.0 (>45); GLUCOSE, FASTING 85 MG/DL (70-100); MAGNESIUM LEVEL 2.2 MG/DL (1.8-2.4); POTASSIUM SERUM 3.5 MEQ/L (3.5-5.1); SODIUM LEVEL 142 MEQ/L (136-145)
[2021-04-06] MEDS ORDERED: PARO40TA2 PO (12:25)
[2021-04-06] MEDS ORDERED: PARO5TAB PO (12:25)
[2021-04-06] MEDS ORDERED: OXYB-54 PO (12:25)
[2021-04-06] MEDS ORDERED: HOME MED LIST COMPLETE! XX SCH (13:00)
[2021-04-06 13:20] LABS: RSV AMPLIFICATION NEGATIVE (NEGATIVE)
[2021-04-06] MEDS ORDERED: MOM 30ML SUSPENSION UDC PO PRN (15:10)
[2021-04-06] MEDS ORDERED: MAALOX 30 ML SUSP *UDC PO PRN (15:10)
[2021-04-06 16:00] VITALS: BP 122/76
[2021-04-06] MEDS: ACETAMINOPHEN TAB 650MG DOSE (2X325MG) PO PRN ×2 (18:06→22:10)
[2021-04-06] MEDS ORDERED: ALBUTEROL 90 MCG/ACT 8GM HFA INHALER INH PRN (18:20)
[2021-04-06] MEDS ORDERED: ONDANSETRON 4 MG TAB PO PRN (18:20)
[2021-04-06] MEDS: SYMBICORT 160/4.5MCG INHALER 6GM INH SCH (20:00)
[2021-04-06 21:11] VITALS: BP 135/62
[2021-04-06 22:00] VITALS: BP_SYST 100; BP_SYST 92; BP_DIAS 44; BP_DIAS 60
[2021-04-06] MEDS: ATORVASTATIN 20 MG TAB PO SCH (22:10)
[2021-04-06] MEDS: HEPARIN SOD (PORCINE) 5000UNITS/ML 1ML VIAL/SYRINGE SC SCH (22:10)
[2021-04-06] MEDS: GABAPENTIN 400MG CAP PO SCH (22:10)
[2021-04-06] MEDS: FAMOTIDINE 20 MG TAB PO SCH (22:11)
[2021-04-06] MEDS: TOPIRAMATE (TopAMAX) 100 MG TAB PO SCH (22:11)
[2021-04-06] MEDS: LOSARTAN 25 MG TAB PO SCH (22:25)
[2021-04-06] MEDS ORDERED: NS 500 ML IV ONE (22:30)
[2021-04-07] VITALS (7 sets, daily range): BP systolic 96–116; BP diastolic 43–74
[2021-04-07 06:57] LABS: BASO % 0.6 % (0.0-1.0); EOS # 0.1 10^3/uL (0.0-0.5); EOS % 1.4 % (0.0-3.0); HEMATOCRIT 36.5 % (36.0-47.0); LYMPH # 2.1 10^3/uL (1.5-5.0); LYMPH % 33.9 % (24.0-44.0); MEAN CORPUSCULAR HEMOGLOBIN 29.4 pg (27.0-33.0); MEAN CORPUSCULAR HGB CONC 32.3 g/dl (32.0-36.5); MONO # 0.6 10^3/uL (0.0-0.8); MONO % 9.2 % (2.0-8.0); NEUTROPHILS # 3.4 10^3/uL (1.5-8.5); NEUTROPHILS % 54.6 % (36.0-66.0); PLATELET COUNT, AUTOMATED 220 10^3/uL (150-450); RED BLOOD COUNT 4.01 10^6/uL (4.00-5.40); WHITE BLOOD COUNT 6.3 10^3/uL (4.0-10.0)
[2021-04-07 06:59] LABS: HEMOGLOBIN 11.8 g/dl (12.0-15.5)
[2021-04-07 07:18] LABS: BLOOD UREA NITROGEN 12 MG/DL (7-18); CALCIUM LEVEL 7.7 MG/DL (8.8-10.2); CARBON DIOXIDE LEVEL 24 MEQ/L (21-32); CHLORIDE LEVEL 112 MEQ/L (98-107); CREATININE FOR GFR 0.78 MG/DL (0.55-1.30); GLOMERULAR FILTRATION RATE > 60.0 (>45); GLUCOSE, FASTING 67 MG/DL (70-100); POTASSIUM SERUM 3.5 MEQ/L (3.5-5.1); SODIUM LEVEL 142 MEQ/L (136-145)
[2021-04-07 07:22] LABS: CK-MB VALUE MASS < 1.0 NG/ML (<3.6); CPK CREATINE PHOSPHOKINASE 58 U/L (26-192); MB/CK RELATIVE INDEX 1.72 (< OR =4)
[2021-04-07] MEDS: TIOTROPIUM INHALER/CAPSULE (SPIRIVA) INH SCH (07:55)
[2021-04-07] MEDS: SYMBICORT 160/4.5MCG INHALER 6GM INH SCH ×2 (07:55→20:02)
[2021-04-07] MEDS ORDERED: MORPHINE 4 MG/ML 1ML VIAL/SYRINGE (J2270) IV PRN (08:35)
[2021-04-07] MEDS: HEPARIN SOD (PORCINE) 5000UNITS/ML 1ML VIAL/SYRINGE SC SCH ×2 (08:52→20:26)
[2021-04-07] MEDS: oxyBUTYnin *DITROPAN XL* 5 MG TABCR PO SCH (08:53)
[2021-04-07] MEDS: PARoxetine 20MG TABLET PO SCH (08:53)
[2021-04-07] MEDS: ASPIRIN 81MG ENTERIC TABLET PO SCH (08:53)
[2021-04-07] MEDS: POTASSIUM CHLORIDE 10MEQ SR TABLET PO SCH (08:53)
[2021-04-07] MEDS: CLOPIDOGREL 75 MG TAB PO SCH (08:53)
[2021-04-07] MEDS: GABAPENTIN 400MG CAP PO SCH ×2 (08:53→20:26)
[2021-04-07] MEDS: PARoxetine 10MG TABLET PO SCH (08:53)
[2021-04-07] MEDS: TOPIRAMATE (TopAMAX) 100 MG TAB PO SCH ×2 (08:53→20:26)
[2021-04-07] MEDS: EZETIMIBE 10MG TABLET (ZETIA) PO SCH (08:53)
[2021-04-07] MEDS: oxyCODONE 5MG TAB PO PRN (09:06)
[2021-04-07] MEDS: FAMOTIDINE 20 MG TAB PO SCH (20:26)
[2021-04-07] MEDS: ATORVASTATIN 20 MG TAB PO SCH (20:26)
[2021-04-07] MEDS: LOSARTAN 25 MG TAB PO SCH (21:00)
[2021-04-08 00:01] VITALS: BP_SYST 100; BP_SYST 104; BP_SYST 97; BP_DIAS 40; BP_DIAS 43; BP_DIAS 49
[2021-04-08] MEDS: oxyCODONE 5MG TAB PO PRN ×3 (02:14→20:37)
[2021-04-08 05:00] VITALS: BP_SYST 100; BP_SYST 103; BP_DIAS 44; BP_DIAS 64
[2021-04-08 06:00] VITALS: BP 110/60
[2021-04-08 06:25] LABS: BASO % 0.5 % (0.0-1.0); EOS # 0.1 10^3/uL (0.0-0.5); EOS % 0.9 % (0.0-3.0); HEMATOCRIT 35.4 % (36.0-47.0); HEMOGLOBIN 11.3 g/dl (12.0-15.5); LYMPH # 1.9 10^3/uL (1.5-5.0); LYMPH % 28.7 % (24.0-44.0); MEAN CORPUSCULAR HEMOGLOBIN 29.7 pg (27.0-33.0); MEAN CORPUSCULAR HGB CONC 31.9 g/dl (32.0-36.5); MEAN CORPUSCULAR VOLUME 92.9 fl (80.0-96.0); MONO # 0.5 10^3/uL (0.0-0.8); MONO % 7.1 % (2.0-8.0); NEUTROPHILS # 4.1 10^3/uL (1.5-8.5); NEUTROPHILS % 62.3 % (36.0-66.0); PLATELET COUNT, AUTOMATED 220 10^3/uL (150-450); RED BLOOD COUNT 3.81 10^6/uL (4.00-5.40); WHITE BLOOD COUNT 6.5 10^3/uL (4.0-10.0)
[2021-04-08 06:54] LABS: BLOOD UREA NITROGEN 10 MG/DL (7-18); CALCIUM LEVEL 7.6 MG/DL (8.8-10.2); CARBON DIOXIDE LEVEL 25 MEQ/L (21-32); CHLORIDE LEVEL 112 MEQ/L (98-107); CREATININE FOR GFR 0.74 MG/DL (0.55-1.30); GLOMERULAR FILTRATION RATE > 60.0 (>45); GLUCOSE, FASTING 68 MG/DL (70-100); MAGNESIUM LEVEL 2.2 MG/DL (1.8-2.4); POTASSIUM SERUM 3.1 MEQ/L (3.5-5.1); SODIUM LEVEL 142 MEQ/L (136-145)
[2021-04-08] MEDS ORDERED: POTASSIUM CHLORIDE 10MEQ SR TABLET PO ONE (07:30)
[2021-04-08] MEDS: SYMBICORT 160/4.5MCG INHALER 6GM INH SCH ×2 (07:51→20:28)
[2021-04-08] MEDS: TIOTROPIUM INHALER/CAPSULE (SPIRIVA) INH SCH (07:51)
[2021-04-08] MEDS: ASPIRIN 81MG ENTERIC TABLET PO SCH (08:49)
[2021-04-08] MEDS: PARoxetine 10MG TABLET PO SCH (08:50)
[2021-04-08] MEDS: CLOPIDOGREL 75 MG TAB PO SCH (08:50)
[2021-04-08] MEDS: PARoxetine 20MG TABLET PO SCH (08:50)
[2021-04-08] MEDS: HEPARIN SOD (PORCINE) 5000UNITS/ML 1ML VIAL/SYRINGE SC SCH ×2 (08:50→20:38)
[2021-04-08] MEDS: EZETIMIBE 10MG TABLET (ZETIA) PO SCH (08:50)
[2021-04-08] MEDS: GABAPENTIN 400MG CAP PO SCH ×2 (08:50→20:37)
[2021-04-08] MEDS: POTASSIUM CHLORIDE 10MEQ SR TABLET PO SCH (08:57)
[2021-04-08] MEDS: TOPIRAMATE (TopAMAX) 100 MG TAB PO SCH ×2 (08:58→20:37)
[2021-04-08] MEDS: oxyBUTYnin *DITROPAN XL* 5 MG TABCR PO SCH (08:59)
[2021-04-08] MEDS ORDERED: NS 500 ML IV ONE (10:00)
[2021-04-08 14:00] VITALS: BP 122/70
[2021-04-08] MEDS: ATORVASTATIN 20 MG TAB PO SCH (20:37)
[2021-04-08] MEDS: FAMOTIDINE 20 MG TAB PO SCH (20:37)
[2021-04-08 22:00] VITALS: BP 122/68
[2021-04-09] MEDS: oxyCODONE 5MG TAB PO PRN ×2 (00:50→06:28)
[2021-04-09 05:51] VITALS: BP 116/68
[2021-04-09 06:05] LABS: BASO % 0.6 % (0.0-1.0); EOS # 0.1 10^3/uL (0.0-0.5); EOS % 1.4 % (0.0-3.0); HEMATOCRIT 37.5 % (36.0-47.0); HEMOGLOBIN 11.9 g/dl (12.0-15.5); LYMPH % 27.5 % (24.0-44.0); MEAN CORPUSCULAR HEMOGLOBIN 29.5 pg (27.0-33.0); MEAN CORPUSCULAR HGB CONC 31.7 g/dl (32.0-36.5); MEAN CORPUSCULAR VOLUME 92.8 fl (80.0-96.0); MONO # 0.5 10^3/uL (0.0-0.8); MONO % 6.7 % (2.0-8.0); NEUTROPHILS # 4.6 10^3/uL (1.5-8.5); NEUTROPHILS % 63.5 % (36.0-66.0); PLATELET COUNT, AUTOMATED 227 10^3/uL (150-450); RED BLOOD COUNT 4.04 10^6/uL (4.00-5.40); WHITE BLOOD COUNT 7.2 10^3/uL (4.0-10.0)
[2021-04-09 06:32] LABS: BLOOD UREA NITROGEN 6 MG/DL (7-18); CALCIUM LEVEL 8.4 MG/DL (8.8-10.2); CARBON DIOXIDE LEVEL 25 MEQ/L (21-32); CHLORIDE LEVEL 115 MEQ/L (98-107); CREATININE FOR GFR 0.72 MG/DL (0.55-1.30); GLOMERULAR FILTRATION RATE > 60.0 (>45); GLUCOSE, FASTING 83 MG/DL (70-100); MAGNESIUM LEVEL 2.1 MG/DL (1.8-2.4); POTASSIUM SERUM 3.8 MEQ/L (3.5-5.1); SODIUM LEVEL 145 MEQ/L (136-145)
[2021-04-09] MEDS: SYMBICORT 160/4.5MCG INHALER 6GM INH SCH (07:39)
[2021-04-09] MEDS: TIOTROPIUM INHALER/CAPSULE (SPIRIVA) INH SCH (07:39)
[2021-04-09] MEDS: CLOPIDOGREL 75 MG TAB PO SCH (08:33)
[2021-04-09] MEDS: PARoxetine 20MG TABLET PO SCH (08:34)
[2021-04-09] MEDS: TOPIRAMATE (TopAMAX) 100 MG TAB PO SCH (08:34)
[2021-04-09] MEDS: PARoxetine 10MG TABLET PO SCH (08:34)
[2021-04-09] MEDS: POTASSIUM CHLORIDE 10MEQ SR TABLET PO SCH (08:34)
[2021-04-09] MEDS: GABAPENTIN 400MG CAP PO SCH (08:34)
[2021-04-09] MEDS: oxyBUTYnin *DITROPAN XL* 5 MG TABCR PO SCH (08:34)
[2021-04-09] MEDS: ASPIRIN 81MG ENTERIC TABLET PO SCH (08:34)
[2021-04-09] MEDS: EZETIMIBE 10MG TABLET (ZETIA) PO SCH (08:34)
[2021-04-09] MEDS: HEPARIN SOD (PORCINE) 5000UNITS/ML 1ML VIAL/SYRINGE SC SCH (08:35)
[2021-04-09] MEDS ORDERED: OXYC-517 PO (11:13)
== END 2021-04-09 14:53 | disposition home or self-care (01) | DRG 563 ==
LOC: M ED 09:31 → M ED INP 15:09 → ENRESERV 15:25 → M MSPAV 16:03
PROVIDERS: ADMIT Family Medicine; ATTEND Internal Medicine
DX: S92.234A Nondisplaced fracture of intermediate cuneiform of right foot, initial encounter for closed fracture (principal); S92.334A Nondisplaced fracture of third metatarsal bone, right foot, initial encounter for closed fracture; I25.10 Atherosclerotic heart disease of native coronary artery without angina pectoris; E78.00 Pure hypercholesterolemia, unspecified; I95.1 Orthostatic hypotension; I25.2 Old myocardial infarction; G40.909 Epilepsy, unspecified, not intractable, without status epilepticus; K22.70 Barrett's esophagus without dysplasia; I73.9 Peripheral vascular disease, unspecified; G62.9 Polyneuropathy, unspecified; E78.5 Hyperlipidemia, unspecified; M81.0 Age-related osteoporosis without current pathological fracture; J44.9 Chronic obstructive pulmonary disease, unspecified; N32.81 Overactive bladder; F32.A Depression, unspecified; Z20.822 Contact with and (suspected) exposure to COVID-19; Z86.73 Personal history of transient ischemic attack (TIA), and cerebral infarction without residual deficits; Z95.820 Peripheral vascular angioplasty status with implants and grafts; Z79.82 Long term (current) use of aspirin; Z79.02 Long term (current) use of antithrombotics/antiplatelets; Z79.899 Other long term (current) drug therapy; W18.30XA Fall on same level, unspecified, initial encounter; Y92.010 Kitchen of single-family (private) house as the place of occurrence of the external cause; Y93.89 Activity, other specified; Y99.8 Other external cause status

== ENCOUNTER → 2021-04-16 | Outpatient (CLI) | payer MEDICARE, MEDICAID ==
[~2021-04-16] MED LIST changes: +LOSA25TA13 PO; +OXYB-54 PO; +OXYC-517 PO; +PARO40TA2 PO; +PARO5TAB PO
== END ==
LOC: M SOG 09:42
PROVIDERS: ATTEND Orthopaedic Surgery Adult Reconstructive Orthopaedic Surgery
DX: S92.301D Fracture of unspecified metatarsal bone(s), right foot, subsequent encounter for fracture with routine healing (principal); X58.XXXD Exposure to other specified factors, subsequent encounter; Y92.89 Other specified places as the place of occurrence of the external cause

== ENCOUNTER → 2021-05-01 | Outpatient (REF) | payer MEDICARE, MEDICAID ==
[2021-05-01 13:57] LABS: APPEARANCE, URINE TURBID (CLEAR); BACTERIA, URINE AUTO 3+ (NEGATIVE); BILIRUBIN, URINE AUTO NEGATIVE (NEGATIVE); BLOOD, URINE BLOOD 2+ (NEGATIVE); COLOR, URINE AMBER (YELLOW); GLUCOSE, URINE (UA) AUTO NEGATIVE (NEGATIVE); KETONE, URINE AUTO NEGATIVE (NEGATIVE); LEUKOCYTE ESTERASE, URINE AUTO 3+ (NEGATIVE); MUCUS, URINE SMALL (NEGATIVE); NITRITE, URINE AUTO NEGATIVE (NEGATIVE); PROTEIN, URINE AUTO 1+ mg/dL (NEGATIVE); RBC, URINE AUTO 73 /HPF (0-3); SPECIFIC GRAVITY URINE AUTO 1.015 (1.002-1.035); SQUAMOUS EPITHELIAL CELL UR AU 1 /HPF (0-6); UROBILINOGEN, URINE AUTO 0.2 mg/dL (0.0-2.0); WBC, URINE AUTO TNTC /HPF (0-3)
== END ==
LOC: M SFHCPLAZ 12:50
PROVIDERS: ATTEND Physician Assistant
DX: R32 Unspecified urinary incontinence (principal)

== ENCOUNTER → 2021-05-20 | Outpatient (CLI) | payer MEDICARE, MEDICAID | LOC: M SOG 08:40 | PROVIDERS: ATTEND Orthopaedic Surgery Adult Reconstructive Orthopaedic Surgery | DX: S92.324D Nondisplaced fracture of second metatarsal bone, right foot, subsequent encounter for fracture with routine healing (principal); Y99.9 Unspecified external cause status; Y92.9 Unspecified place or not applicable; Y93.9 Activity, unspecified ==

== ENCOUNTER → 2021-06-13 | Outpatient (CLI) | payer MEDICARE, MEDICAID | LOC: M WHC 07:56 | PROVIDERS: ATTEND Student in an Organized Health Care Education/Training Program | DX: Z12.31 Encounter for screening mammogram for malignant neoplasm of breast (principal) ==

== ENCOUNTER → 2021-07-01 | Outpatient (CLI) | payer MEDICARE, MEDICAID | LOC: M SOG 08:02 | PROVIDERS: ATTEND Orthopaedic Surgery Adult Reconstructive Orthopaedic Surgery | DX: S92.324D Nondisplaced fracture of second metatarsal bone, right foot, subsequent encounter for fracture with routine healing (principal); W18.30XD Fall on same level, unspecified, subsequent encounter ==

== ENCOUNTER → 2021-08-05 | Outpatient (CLI) | payer MEDICARE, MEDICAID | LOC: M PLALAB 10:08 → M PLAIMG 10:08 | PROVIDERS: ATTEND Physician Assistant | DX: R07.81 Pleurodynia (principal); R63.6 Underweight; I25.2 Old myocardial infarction; D64.9 Anemia, unspecified; E53.8 Deficiency of other specified B group vitamins; E51.9 Thiamine deficiency, unspecified; E53.1 Pyridoxine deficiency; E56.0 Deficiency of vitamin E; Z79.899 Other long term (current) drug therapy ==

== ENCOUNTER → 2021-08-05 | Outpatient (CLI) | payer MEDICARE, MEDICAID ==
[2021-08-05 14:06] LABS: BASO # 0.1 10^3/uL (0.0-0.2); BASO % 0.5 % (0.0-1.0); EOS # 0.2 10^3/uL (0.0-0.5); EOS % 1.7 % (0.0-3.0); HEMATOCRIT 51.8 % (36.0-47.0); HEMOGLOBIN 16.2 g/dl (12.0-15.5); LYMPH # 3.2 10^3/uL (1.5-5.0); LYMPH % 28.7 % (24.0-44.0); MEAN CORPUSCULAR HEMOGLOBIN 28.4 pg (27.0-33.0); MEAN CORPUSCULAR HGB CONC 31.3 g/dl (32.0-36.5); MEAN CORPUSCULAR VOLUME 90.7 fl (80.0-96.0); MONO # 0.8 10^3/uL (0.0-0.8); MONO % 7.1 % (2.0-8.0); NEUTROPHILS % 61.6 % (36.0-66.0); PLATELET COUNT, AUTOMATED 316 10^3/uL (150-450); RED BLOOD COUNT 5.71 10^6/uL (4.00-5.40); WHITE BLOOD COUNT 11.3 10^3/uL (4.0-10.0)
[2021-08-05 14:43] LABS: ALBUMIN 3.6 GM/DL (3.2-5.2); ALT/SGPT 35 U/L (12-78); BILIRUBIN,TOTAL 0.3 MG/DL (0.2-1.0); BLOOD UREA NITROGEN 12 MG/DL (7-18); CALCIUM LEVEL 9.8 MG/DL (8.8-10.2); CARBON DIOXIDE LEVEL 26 MEQ/L (21-32); CHLORIDE LEVEL 113 MEQ/L (98-107); CHOLESTEROL LEVEL 157 MG/DL (<200); CHOLESTEROL RISK RATIO 3.651 (<5); FREE T4 1.09 NG/DL (0.76-1.46); GLOMERULAR FILTRATION RATE > 60.0 (>45); GLUCOSE, FASTING 95 MG/DL (70-100); HDL CHOLESTEROL 43 MG/DL (>40); LDL CHOLESTEROL 87 MG/DL (<100); NON-HDL-C 114 MG/DL; POTASSIUM SERUM 4.4 MEQ/L (3.5-5.1); SODIUM LEVEL 147 MEQ/L (136-145); TOTAL PROTEIN 7.5 GM/DL (6.4-8.2); TRIGLYCERIDES LEVEL 133 MG/DL (<150)
== END ==
LOC: M PLALAB 10:12
PROVIDERS: ATTEND Student in an Organized Health Care Education/Training Program
DX: R63.6 Underweight (principal); I25.2 Old myocardial infarction; Z79.899 Other long term (current) drug therapy

== ENCOUNTER → 2021-08-05 | Outpatient (CLI) | payer MEDICARE, MEDICAID ==
[2021-08-05 14:38] LABS: FOLATE 8.5 NG/ML
== END ==
LOC: M PLALAB 10:14
PROVIDERS: ATTEND Psychiatry & Neurology Neurology
DX: D64.9 Anemia, unspecified (principal); E53.8 Deficiency of other specified B group vitamins; E51.9 Thiamine deficiency, unspecified; E53.1 Pyridoxine deficiency; E56.0 Deficiency of vitamin E

== ENCOUNTER → 2021-08-29 | Outpatient (CLI) | payer MEDICARE, MEDICAID | LOC: M RAD 11:10 | PROVIDERS: ATTEND Student in an Organized Health Care Education/Training Program | DX: R07.81 Pleurodynia (principal) ==

== ENCOUNTER → 2021-09-06 | Outpatient (CLI) | payer MEDICARE, MEDICAID ==
[2021-09-06 10:41] LABS: BASO # 0.1 10^3/uL (0.0-0.2); BASO % 0.7 % (0.0-1.0); EOS # 0.1 10^3/uL (0.0-0.5); EOS % 1.5 % (0.0-3.0); HEMATOCRIT 50.6 % (36.0-47.0); HEMOGLOBIN 16.5 g/dl (12.0-15.5); LYMPH # 2.8 10^3/uL (1.5-5.0); LYMPH % 32.5 % (24.0-44.0); MEAN CORPUSCULAR HEMOGLOBIN 29.4 pg (27.0-33.0); MEAN CORPUSCULAR HGB CONC 32.6 g/dl (32.0-36.5); MONO # 0.7 10^3/uL (0.0-0.8); MONO % 7.6 % (2.0-8.0); NEUTROPHILS # 4.9 10^3/uL (1.5-8.5); NEUTROPHILS % 57.4 % (36.0-66.0); PLATELET COUNT, AUTOMATED 401 10^3/uL (150-450); RED BLOOD COUNT 5.62 10^6/uL (4.00-5.40); WHITE BLOOD COUNT 8.6 10^3/uL (4.0-10.0)
[2021-09-06 11:48] LABS: ALBUMIN 3.4 GM/DL (3.2-5.2); BILIRUBIN,TOTAL 0.5 MG/DL (0.2-1.0); CALCIUM LEVEL 9.1 MG/DL (8.8-10.2); CREATININE FOR GFR 1.11 MG/DL (0.55-1.30); POTASSIUM SERUM 3.7 MEQ/L (3.5-5.1); TOTAL PROTEIN 7.1 GM/DL (6.4-8.2)
== END ==
LOC: M LAB 10:06
PROVIDERS: ATTEND Student in an Organized Health Care Education/Training Program
DX: D75.1 Secondary polycythemia (principal)

== ENCOUNTER → 2022-01-21 | Outpatient (REF) | payer MEDICARE, MEDICAID ==
[~2022-01-21] MED LIST changes: +CLOP75TA99 PO; -PAXI30TA11 PO; +PAXI30TA12 PO; -PLAV1TAB2 PO
== END ==
LOC: M SFHCLERA 16:48
PROVIDERS: ATTEND Family Medicine
DX: R35.0 Frequency of micturition (principal); R39.15 Urgency of urination

== ENCOUNTER → 2022-02-13 | Outpatient (CLI) | payer MEDICARE, MEDICAID | LOC: M WUC 13:33 | PROVIDERS: ATTEND Student in an Organized Health Care Education/Training Program | DX: R06.02 Shortness of breath (principal) ==

== ENCOUNTER → 2022-03-25 | Outpatient (CLI) | payer MEDICARE, MEDICAID ==
[~2022-03-25] MED LIST changes: +ALBU8.5H INH; +BACTDSTA PO; +CYAN1000VL INJ; +IPRA0.00 NEB; +PRED10TA2
[2022-03-25 10:36] LABS: FOLATE 2.6 NG/ML (>5.4)
[2022-04-05 04:07] LABS: VITAMIN B1 LEVEL WHOLE BLOOD 84.7 nmol/L (66.5-200.0); VITAMIN B6,PYRIDOXAL PHOSPHATE 1.3 ug/L (3.4-65.2); VITAMIN E(ALPHA TOCOPHEROL) 9.6 mg/L (9.0-29.0); VITAMIN E(GAMMA TOCOPHEROL) 2.9 mg/L (0.5-4.9)
== END ==
LOC: M LAB 09:18
PROVIDERS: ATTEND Psychiatry & Neurology Neurology
DX: R42 Dizziness and giddiness (principal); R51.9 Headache, unspecified; E53.8 Deficiency of other specified B group vitamins; E56.0 Deficiency of vitamin E

== ENCOUNTER → 2022-03-25 | Outpatient (CLI) | payer MEDICARE, MEDICAID ==
[~2022-03-25] MED LIST changes: -ALBU8.5H INH; -BACTDSTA PO; -CYAN1000VL INJ; -IPRA0.00 NEB; -PRED10TA2
[2022-03-25 10:32] LABS: CHOLESTEROL RISK RATIO 3.37 (<5); HDL CHOLESTEROL 33.2 MG/DL (>40); LDL CHOLESTEROL 59.4 MG/DL (<100)
== END ==
LOC: M LAB 09:22
PROVIDERS: ATTEND Physician Assistant
DX: I73.9 Peripheral vascular disease, unspecified (principal); Z79.899 Other long term (current) drug therapy

== ENCOUNTER → 2022-03-25 | Outpatient (REF) | payer MEDICARE, MEDICAID | LOC: M LAB REF 13:26 | PROVIDERS: ATTEND Internal Medicine Pulmonary Disease | DX: J43.1 Panlobular emphysema (principal) ==

== ENCOUNTER 2022-04-13 16:13 | Inpatient (IN) | payer MEDICARE, MEDICAID ==
[~2022-04-13] VITALS: Ht 152.4 cm; Wt 40.9 kg
[2022-04-13] MEDS ORDERED: ONDANSETRON 4MG 2ML VIAL IV ONE ×2 (16:35→22:15)
[2022-04-13] MEDS ORDERED: MORPHINE 4 MG/ML 1ML VIAL IV ONE (16:35)
[2022-04-13] MEDS ORDERED: NS 1,000 ML IV SCH ×2 (16:45→23:10)
[2022-04-13 16:59] LABS: BASO # 0.1 10^3/uL (0.0-0.2); BASO % 0.3 % (0.0-1.0); EOS # 0.1 10^3/uL (0.0-0.5); EOS % 0.3 % (0.0-3.0); HEMATOCRIT 47.7 % (36.0-47.0); HEMOGLOBIN 15.6 g/dl (12.0-15.5); LYMPH # 3.8 10^3/uL (1.5-5.0); LYMPH % 14.7 % (24.0-44.0); MEAN CORPUSCULAR HEMOGLOBIN 26.8 pg (27.0-33.0); MEAN CORPUSCULAR HGB CONC 32.7 g/dl (32.0-36.5); MONO # 0.6 10^3/uL (0.0-0.8); MONO % 2.4 % (2.0-8.0); NEUTROPHILS # 21.1 10^3/uL (1.5-8.5); NEUTROPHILS % 81.7 % (36.0-66.0); PLATELET COUNT, AUTOMATED 448 10^3/uL (150-450); RED BLOOD COUNT 5.82 10^6/uL (4.00-5.40); WHITE BLOOD COUNT 25.9 10^3/uL (4.0-10.0)
[2022-04-13 17:14] LABS: INR 0.99; PARTIAL THROMBOPLASTIN TIME 29.9 SECONDS (24.8-34.2); PROTHROMBIN TIME 13.3 SECONDS (12.5-14.5)
[2022-04-13 17:23] LABS: LIPASE 25 U/L (12-53)
[2022-04-13 17:25] LABS: ALBUMIN 3.1 G/DL (3.2-5.2); ALKALINE PHOSPHATASE 181 U/L (46-116); ALT/SGPT 23 U/L (7.0-40); AST/SGOT 21 U/L (<34); BILIRUBIN,DIRECT 0.1 MG/DL (<0.4); BILIRUBIN,TOTAL 0.4 MG/DL (0.3-1.2); BLOOD UREA NITROGEN 21 MG/DL (9-23); CALCIUM LEVEL 9.2 MG/DL (8.3-10.6); CARBON DIOXIDE LEVEL 24 MMOL/L (20-31); CHLORIDE LEVEL 105 MMOL/L (98-107); CK-MB VALUE MASS 1.9 NG/ML (<3.6); CPK CREATINE PHOSPHOKINASE 65 U/L (34-145); CREATININE FOR GFR 0.74 MG/DL (0.55-1.30); GLOMERULAR FILTRATION RATE > 60.0 (>45); GLUCOSE, FASTING 188 MG/DL (74-106); MB/CK RELATIVE INDEX 2.92 (< OR =4); POTASSIUM SERUM 3.5 MMOL/L (3.5-5.1); SODIUM LEVEL 139 MMOL/L (136-145); TOTAL PROTEIN 6.4 G/DL (5.7-8.2)
[2022-04-13 18:09] LABS: CK-MB VALUE MASS 1.3 NG/ML (<3.6)
[2022-04-13 18:11] LABS: MB/CK RELATIVE INDEX 2.28 (< OR =4)
[2022-04-13] MEDS: GASTROGRAFIN SOLUTION 30ML PO SCH ×2 (18:15→18:45)
[2022-04-13] MEDS ORDERED: ISOVUE-370 76% 100ML VIAL As Ordered ONE (18:47)
[2022-04-13 20:14] LABS: CK-MB VALUE MASS < 1.0 NG/ML (<3.6)
[2022-04-13 20:17] LABS: CPK CREATINE PHOSPHOKINASE 43 U/L (34-145); MB/CK RELATIVE INDEX 2.32 (< OR =4)
[2022-04-13] MEDS ORDERED: NS 500 ML IV ONE ×2 (20:55→23:10)
[2022-04-13] MEDS ORDERED: ASPIRIN 300 MG SUPP PR SCH (21:00)
[2022-04-13] MEDS ORDERED: ENOXAPARIN 40MG/0.4ML SYRINGE (J1650 PER 10MG) SC SCH (21:00)
[2022-04-13] MEDS ORDERED: PIPERACILLIN/TAZOBACTAM SOD 4.5 GM in D5W MINI-BAG PLUS 50 ML IV ONE (21:05)
[2022-04-13] MEDS ORDERED: FLEET ENEMA PR ONE (22:00)
[2022-04-13] MEDS ORDERED: BACTDSTA PO (22:13)
[2022-04-13] MEDS ORDERED: IPRA0.00 NEB (22:13)
[2022-04-13] MEDS ORDERED: PRED10TA2 (22:13)
[2022-04-13] MEDS ORDERED: MORPHINE 2 MG/ML 1ML VIAL IV ONE (22:15)
[2022-04-13] MEDS ORDERED: CYAN1000VL INJ (22:15)
[2022-04-13] MEDS ORDERED: ALBU8.5H INH (22:15)
[2022-04-13] MEDS ORDERED: HOME MED LIST COMPLETE! XX SCH (22:20)
[2022-04-13] MEDS ORDERED: GLUCAGON INJ 1MG VIAL SC PRN (23:10)
[2022-04-13] MEDS ORDERED: ALBUTEROL SULFATE 2.5MG/0.5ML INH NEB SOLN NEB PRN (23:10)
[2022-04-13] MEDS ORDERED: HYDROMORPHONE HCL 0.5 MG/ 0.5 ML SYRINGE IV PRN (23:10)
[2022-04-13] MEDS ORDERED: GLUCOSE 4GM CHEW TABLET PO PRN (23:10)
[2022-04-13] MEDS ORDERED: DEXTROSE 50% 50ML SYRINGE IV PRN (23:10)
[2022-04-13 23:28] LABS: VENOUS BASE EXCESS -9.9 (-2.0-2.0); VENOUS HCO3 20.3 MEQ/L (23.0-27.0); VENOUS O2 SATURATION 56.5 % (60.0-80.0); VENOUS PARTIAL PRESSURE CO2 62.6 mmHg (38.0-50.0); VENOUS PARTIAL PRESSURE O2 36.9 mmHg (30.0-50.0); VENOUS PH 7.128 UNITS (7.330-7.430); VENOUS STANDARD HCO3 15.8 MEQ/L; VENOUS TOTAL CO2 22.2 MEQ/L (24.0-28.0)
[2022-04-13 23:58] LABS: CK-MB VALUE MASS 1.4 NG/ML (<3.6)
[2022-04-14] VITALS (25 sets, daily range): BP systolic 47–174; BP diastolic 26–125
[2022-04-14] MEDS ORDERED: INSULIN LISPRO (NovoLOG) PER UNIT SC SCH
[2022-04-14 00:19] LABS: MB/CK RELATIVE INDEX 2.54 (< OR =4)
[2022-04-14] MEDS ORDERED: NS 1,000 ML IV ONE ×3 (00:45→03:45)
[2022-04-14] MEDS ORDERED: IPRATROPIUM 0.5MG/ALBUTEROL 2.5MG INH SOL UD 3ML (DUONEB) NEB SCH (02:00)
[2022-04-14 02:30] LABS: VENOUS BASE EXCESS -26.5 (-2.0-2.0); VENOUS HCO3 10.2 MEQ/L (23.0-27.0); VENOUS O2 SATURATION 66.4 % (60.0-80.0); VENOUS PARTIAL PRESSURE CO2 80.8 mmHg (38.0-50.0); VENOUS PARTIAL PRESSURE O2 60.1 mmHg (30.0-50.0); VENOUS PH 6.719 UNITS (7.330-7.430); VENOUS STANDARD HCO3 5.9 MEQ/L; VENOUS TOTAL CO2 12.7 MEQ/L (24.0-28.0)
[2022-04-14] MEDS ORDERED: MIDAZOLAM 100MG/100ML-0.9%NACL 100 MG in IV 1 EA IV SCH (02:30)
[2022-04-14] MEDS ORDERED: SUCCINYLCHOLINE INJ 200MG/10ML VIAL IV STA (02:43)
[2022-04-14] MEDS ORDERED: ETOMIDATE INJ 20MG/10ML VIAL IV STA (02:43)
[2022-04-14] MEDS ORDERED: HYDROCORTISONE 100MG/2ML VIAL IV ONE (03:00)
[2022-04-14] MEDS ORDERED: VASOPRESSIN INJ 20UNITS/ML 1ML VIAL As Ordered ONE (03:02)
[2022-04-14] MEDS ORDERED: PHENYLEPHRINE HCL INJ 50 MG in D5W 495 ML IV SCH ×2 (03:15→03:25)
[2022-04-14] MEDS ORDERED: PHENYLEPHRINE 10MG/ML 1ML VIAL As Ordered ONE (03:18)
[2022-04-14] MEDS ORDERED: VASOPRESSIN INJ 20 UNITS in NS 499 ML IV SCH (03:25)
[2022-04-14] MEDS ORDERED: NOREPINEPHRINE 4MG IN D5 250ML 4 MG in IV 1 EA IV SCH ×2 (03:25)
[2022-04-14 03:43] LABS: ABG BASE EXCESS -24.4 (-2.0-2.0); ABG HCO3 11.7 MEQ/L (22.0-26.0); ABG STANDARD HCO3 6.2 MEQ/L (22.0-26.0); ABG TOTAL CO2 14.5 MEQ/L (23.0-31.0)
[2022-04-14 03:45] LABS: ABG PARTIAL PRESSURE CO2 90.4 mmHg (35.0-45.0); ABG PARTIAL PRESSURE O2 34.3 mmHg (75.0-100.0)
[2022-04-14] MEDS ORDERED: FENTANYL DRIP LOCK BOX KEY 1 EACH XX PRN (03:45)
[2022-04-14] MEDS ORDERED: fentaNYL CITRATE/NaCl 1,000 MCG in IV 1 EA IV SCH (03:45)
[2022-04-14] MEDS ORDERED: SODIUM BICARBONATE 8.4% INJ 50ML SYRINGE IV STA (03:56)
[2022-04-14] MEDS ORDERED: HYDROMORPHONE HCL 0.5 MG/ 0.5 ML SYRINGE IV PRN (04:55)
[2022-04-14] MEDS ORDERED: SCOPOLAMINE 1MG TRANSDERMAL PATCH TOP SCH (06:00)
[2022-04-14] MEDS ORDERED: ASPIRIN 300 MG SUPP PR SCH (09:00)
[2022-04-14] MEDS ORDERED: CHLORHEXIDINE GLUCONATE 0.12 % 15ML UDC (PERIDEX ORAL RINSE) MT SCH (09:00)
[2022-04-14] MEDS ORDERED: PANTOPRAZOLE 40MG VIAL IV SCH ×2 (09:00)
== END 2022-04-14 06:24 | disposition expired | DRG 393 ==
LOC: EDBD 16:13 → M ED 16:13 → M ED INP 23:43 → ENRESERV 04-14 00:46 → M ICU 04-14 01:30
PROVIDERS: ADMIT Internal Medicine; ATTEND Internal Medicine
PROC: 0BH17EZ Insertion of Endotracheal Airway into Trachea, Via Natural or Artificial Opening (ICD-10-PCS; principal; 2022-04-13)
PROC: 5A1935Z Respiratory Ventilation, Less than 24 Consecutive Hours (ICD-10-PCS; 2022-04-13)
DX: K55.9 Vascular disorder of intestine, unspecified (principal); I21.4 Non-ST elevation (NSTEMI) myocardial infarction; K76.3 Infarction of liver; J96.02 Acute respiratory failure with hypercapnia; J96.01 Acute respiratory failure with hypoxia; J84.82 Adult pulmonary Langerhans cell histiocytosis; N28.0 Ischemia and infarction of kidney; E87.20 Acidosis, unspecified; K62.5 Hemorrhage of anus and rectum; G93.40 Encephalopathy, unspecified; Z66 Do not resuscitate; K59.00 Constipation, unspecified; I25.2 Old myocardial infarction; I25.10 Atherosclerotic heart disease of native coronary artery without angina pectoris; I73.9 Peripheral vascular disease, unspecified; F17.210 Nicotine dependence, cigarettes, uncomplicated; J44.9 Chronic obstructive pulmonary disease, unspecified; G40.909 Epilepsy, unspecified, not intractable, without status epilepticus; K22.70 Barrett's esophagus without dysplasia; G62.9 Polyneuropathy, unspecified; Z90.79 Acquired absence of other genital organ(s); Z86.16 Personal history of COVID-19; Z79.01 Long term (current) use of anticoagulants; Z79.82 Long term (current) use of aspirin; Z79.899 Other long term (current) drug therapy; Z95.828 Presence of other vascular implants and grafts; I95.9 Hypotension, unspecified